=== PATIENT | male | born 1945 | race Caucasian/White ===

== ENCOUNTER 2022-08-30 15:34 | Inpatient (IN) ==
[2022-08-30] MEDS ORDERED: ACETAMINOPHEN 500 MG TAB PO STA (15:59)
[2022-08-30 16:18] LABS: Basophils # (auto) 0.01 K/uL (0-0.2); Basophils % (auto) 0.2 %; Eosinophils # (auto) 0.04 K/uL (0-0.50); Eosinophils % (auto) 0.6 %; Hematocrit (blood only) 41.2 % (42.0-52.0); Immature Granulocytes # (auto) 0.01 K/uL (0.01-0.20); Immature Granulocytes % (auto) 0.2 %; Lymphocytes # (auto) 0.52 K/uL (1.2-3.4); Lymphocytes % (auto) 8.4 %; Mean Corpuscular Hemoglobin 31.5 pg (25.0-34.0); Mean Corpuscular Volume 92.6 fL (80.0-100.0); Mean Platelet Volume 9.7 fL (9.4-12.4); Monocytes % (auto) 4.8 %; Neutrophils # (auto) 5.34 K/uL (1.40-6.50); Neutrophils % (auto) 85.8 %; Platelet Count 249 K/uL (130-400); RDW Coefficient of Variation 16.3 % (11.5-14.5); Red Blood Count 4.45 M/uL (4.70-6.10); White Blood Count 6.22 K/ul (4.8-10.8)
--- NOTE | 2022-08-30 16:18 | Emergency Department Note ---
Impression & Plan Pneumonia, Fever, Hypoxia, Hypomagnesemia ED Provider Note NAME: RAFY CHICAS AGE: 76 SEX: M : 1945 ARRIVES VIA: Ambulance INFORMANT: Patient, EMS ED PROVIDER(S): Christopher Garcia DO CHIEF COMPLAINT: Shortness of breath HPI: The patient is a 76-year-old male who lives in a personal custodial who presented to the emergency department for an evaluation of difficulty breathing. The patient was noted to have a fever. He is also had a nonproductive cough. He started having worsening symptoms today and was sent to the emergency depa rtment from his personal custodial for further evaluation. He denies having any abdominal pain. He denies having any lower extremity swelling. It is unclear if the patient received Tylenol prior to coming to the emergency department. The patient states he has been compliant with his outpatient medications. ROS: See above HPI for pertinent positives & negatives. A total of 10 systems reviewed and were otherwise negative. PAST MEDICAL HISTORY: See Below PAST SURGICAL HISTORY: See Below FAMILY HISTORY: See Below SOCIAL HISTORY: See Below HOME MEDICATIONS: See Below ALLERGIES: See Below VITALS: See Below PHYSICAL EXAMINATION: GENERAL: The patient is awake and alert. He is somewhat anxious appearing. EYES: The conjunctivae are clear. The pupils are round and reactive. EARS, NOSE, MOUTH AND THROAT: The nose is without any evidence of any deformity. NECK: The neck is nontender and supple. RESPIRATORY: Diminished breath sounds were noted throughout. There were faint rales in both bases. There is mild tachypnea. CARDIOVASCULAR: Tachycardic and regular heart sounds were noted to auscultation. There is no definite murmur. GASTROINTESTINAL: The abdomen is soft. Abdomen is nontender. MUSCULOSKELETAL/EXTREMITIES: There is no evidence of gross deformity full range of motion is noted in the hips and shoulders. SKIN: Skin was warm and dry. There is no significant pedal edema. NEUROLOGIC: Patient is awake alert and oriented x 3. MEDICAL DECISION MAKING: The patient is a 76-year-old male who presented to the emergency department by ambulance for an evaluation of difficulty breathing. The patient was found to have fever and hypoxia. He had abnormal lung sounds. Chest x-ray does appear to be consistent with pneumonia. He was treated with supplemental oxygen as well as a small fluid bolus in the emergency department. The patient was reevaluated multiple times. He was given IV antibiotics. I discussed the patient's laboratory and radiographic studies with him. I also discussed this case with the on-call [facility] hospitalist. They have agreed to evaluate the patient in the emergency department for further management and disposition. Triage Nursing notes reviewed. Prior medical records reviewed Vital Signs: reviewed and remarkable for hypoxia and fever. Differential diagnosis: Viral syndrome, otitis, pharyngitis, pneumonia, influenza, meningitis, urinary tract infection, sepsis, bacteremia, as well as other pathologies. ER treatment provided: See below Diagnostics interpreted by me: ECG: EKG was obtained in the emergency department. My interpretation is sinus tachycardia at 114 bpm. There was no ectopy. Incomplete nonspecific intraventricular conduction delay was noted. This was compared to a tracing from August 20, 2014. There is no significant change other than increase in the rate. Cardiac Monitoring: An order was placed for continuous cardiac monitoring. The monitor shows a rate of 81 bpm with sinus rhythm. Laboratory studies: As stated above and show below. Imaging studies: See below. Radiographic imaging was reviewed by myself Consultation(s): I discussed this case with Jordan who is on for the [facility] hospitalist group. Past Med/Surg History Medical History Anxiety and depression Atrial fibrillation episode occurred in 03/2022, taken to [facility], admitted to ICU for 1-2 weeks (was not intubated, but wasn't "awake either"), then to cardiac unit, then to rehab at [facility]; f/u dr. guerra in [place]>will be starting to see a business partner at [facility] 2nd week of 08/2022 GERD (gastroesophageal reflux disease) Hx of staphylococcal infection 03/2022, w/"bacterial infection" at the same, in the rt. knee, occurrred d uring atrial fibrillation episode. "when he woke up, he couldn't walk." Hypertension Lumbar stenosis Myocardial Infarction "a silent one, about 3 years ago" Rheumatoid arthritis Sleep apnea no device Surgical History History of bowel resection for diverticulitis; w/colostomy placement for 3-4 months History of cardiac cath ~3 years ago, SOB and "felt like throat was constricting", had "silent heart attack", x2 stents, done in [place] History of colostomy reversal History of esophagogastroduodenoscopy (EGD) History of heart artery stent ~3 years ago, x2 stents, done in [place]; f/u dr guerra, [place]>will be seeing new cardio at [place] 2nd week of August 2022. Hx of Achilles tendon repair rt. Hx of bilateral cataract extraction Hx of colonoscopy Last Colonoscopy 08/14/22, repeat 3 years in 2025 Hx of hernia repair near former colostomy site Hx of knee surgery rt. patellar tendon repair Hx of rotator cuff surgery bilateral Hx of total hip arthroplasty rt. Hx of total knee replacement lt. Family History Grandmother (Maternal) Diabetes Daughter Diabetes Father Suicide Denies family history of Ovarian cancer Prostate cancer Myocardial infarction Breast cancer Lung cancer Colorectal cancer Stroke Social History Smoking Status: Never smoker Second Hand Exposure: No; Hx Alcohol Use: No Hx Substance Use: No Preferred Language: Kinyarwanda Communication Ability: Effective Visual Impairment: Limited Hearing Ability: Normal Sexual Assault Nurse Required: No Beliefs That Will Affect Care: None marital status: Single Current Living Situation: Intermediate current occupational status: retired How many Children do You have: 2 Feels Safe at Home: Yes Safety Concerns: Feels Safe At This Time Childhood Exposure to Second-Hand Smoke: Yes caffeine: Yes Dental Care, Regularly: Yes Physical Activity Frequency: Does not Exercise Seatbelt Use: always Sunscreen Use: Yes Assistive Devices: Glasses and Wheelchair Allergies Allergies Allergy/AdvReac Type Severity Reaction Status Date / Time No Known Allergies Allergy Verified 08/20/22 11:18 Home Meds Home Medications Medication Instructions Recorded Confirmed sennosides 8.6 mg capsule (senna) 8.6 mg PO HS 06/19/22 08/30/22 B-complex with vitamin C 1 cap PO QAM 08/07/22 08/30/22 acetaminophen 650 mg 1,300 mg PO BID 08/07/22 08/30/22 tablet,extended release (Tylenol 8 Hour) amiodarone 200 mg tablet 200 mg PO QAM 08/07/22 08/30/22 ascorbic acid (vitamin C) 500 mg 1,000 mg PO QAM 08/07/22 08/30/22 capsule aspirin 81 mg tablet,delayed 81 mg PO QAM 08/07/22 08/30/22 release (Adult Low Dose Aspirin) cholecalciferol (vitamin D3) 25 25 mcg PO QAM 08/07/22 08/30/22 mcg (1,000 unit) capsule coenzyme Q10 100 mg capsule 10 mg PO QAM 08/07/22 08/30/22 duloxetine 30 mg capsule,delayed 60 mg PO QAM 08/07/22 08/30/22 release esomeprazole magnesium 40 mg 40 mg PO HS 08/07/22 08/30/22 capsule,delayed release (Nexium) isosorbide mononitrate 60 mg 60 mg PO QAM 08/07/22 08/30/22 tablet,extended release 24 hr lactobacillus combination no.9 4 6,000 mmu cells PO QAM 08/07/22 08/30/22 billion cell capsule (Adult 50 Plus Probiotic) lisinopril 10 mg tablet 10 mg PO QAM 08/07/22 08/30/22 melatonin 5 mg capsule 5 mg PO HS 08/07/22 08/30/22 khenbjis-pbzegpq-mqtm-lutein tablet 1 tab PO QAM 08/07/22 08/30/22 omega 9-roa-xoe-fish oil 1,000 mg 1 cap PO QAM 08/07/22 08/30/22 (120 mg-180 mg) capsule (Fish Oil) oxycodone 5 mg tablet 5 mg PO QID PRN pain 08/07/22 08/30/22 pravastatin 40 mg tablet 40 mg PO HS 08/07/22 08/30/22 upadacitinib 15 mg tablet,extended 15 mg PO HS 08/07/22 08/30/22 release 24 hr (Rinvoq) apixaban 2.5 mg tablet (Eliquis) 5 mg PO BID 08/30/22 08/30/22 Previous Rx's Medication Instructions Recorded nitroglycerin 0.4 mg sublingual 0.4 mg sublingual Q5M PRN chest 07/23/22 tablet pain #30 tabs ranolazine 500 mg tablet,extended 500 mg PO BID #60 tabs 07/23/22 release,12 hr travoprost 0.004 % eye drops 1 drp ophthalmic (eye) QPM #2.5 mL 07/23/22 (Travatan Z) gabapentin 100 mg capsule 100 mg PO TID 90 days #270 caps 08/11/22 Results & Data (ED) Vital Signs Vital Signs - 24 hr 08/30/22 15:39 08/30/22 15:39 08/30/22 15:51 Temperature 39.4 C H Temperature Source Oral Pulse Rate 119 H Pulse Rate from SpO2 Sensor Respiratory Rate 22 Respiratory Effort / Characteristics Non-Labored Spontaneous Respiratory Depth Normal Respiratory Pattern Regular Blood Pressure 195/118 H Blood Pressure Mean 143 Pulse Oximetry 88 L 94 Oxygen Delivery Method Room Air Room Air Nasal Cannula Nasal Cannula Oxygen Flow Rate 0 4 4 Sepsis Recent Fever Within 48 Hours Yes Sepsis New/Unexplained Change in Mental Status No Sepsis Action Taken by Nursing Physician Notified 08/30/22 15:58 08/30/22 17:40 08/30/22 15:45 Temperature 38.6 C H Temperature Source Oral Pulse Rate 107 H Pulse Rate from SpO2 Sensor 111 H Respiratory Rate Respiratory Effort / Characteristics Respiratory Depth Respiratory Pattern Blood Pressure Blood Pressure Mean Pulse Oximetry 89 L Oxygen Delivery Method Oxygen Flow Rate Sepsis Recent Fever Within 48 Hours Sepsis New/Unexplained Change in Mental Status Sepsis Action Taken by Nursing 08/30/22 15:50 08/30/22 16:00 08/30/22 16:10 Temperature Temperature Source Pulse Rate 103 H 105 H Pulse Rate from SpO2 Sensor 107 H 99 H 105 H Respiratory Rate 21 27 H Respiratory Effort / Characteristics Respiratory Depth Respiratory Pattern Blood Pressure Blood Pressure Mean Pulse Oximetry 90 91 94 Oxygen Delivery Method Oxygen Flow Rate Sepsis Recent Fever Within 48 Hours Sepsis New/Unexplained Change in Mental Status Sepsis Action Taken by Nursing 08/30/22 16:20 08/30/22 16:30 08/30/22 16:40 Temperature Temperature Source Pulse Rate 105 H 108 H 105 H Pulse Rate from SpO2 Sensor 104 H 110 H Respiratory Rate 25 H 26 H 30 H Respiratory Effort / Characteristics Respiratory Depth Respiratory Pattern Blood Pressure Blood Pressure Mean Pulse Oximetry 93 93 Oxygen Delivery Method Oxygen Flow Rate Sepsis Recent Fever Within 48 Hours Sepsis New/Unexplained Change in Mental Status Sepsis Action Taken by Nursing 08/30/22 16:43 08/30/22 16:43 08/30/22 16:50 Temperature Temperature Source Pulse Rate 104 H 98 H Pulse Rate from SpO2 Sensor 98 H Respiratory Rate 29 H 26 H Respiratory Effort / Characteristics Respiratory Depth Respiratory Pattern Blood Pressure 164/98 H Blood Pressure Mean 120 Pulse Oximetry 94 Oxygen Delivery Method Oxygen Flow Rate Sepsis Recent Fever Within 48 Hours Sepsis New/Unexplained Change in Mental Status Sepsis Action Taken by Nursing 08/30/22 17:00 08/30/22 17:01 08/30/22 17:01 Temperature Temperature Source Pulse Rate 97 H 98 H Pulse Rate from SpO2 Sensor 96 H 99 H Respiratory Rate 29 H 24 Respiratory Effort / Characteristics Respiratory Depth Respiratory Pattern Blood Pressure 182/139 H Blood Pressure Mean 153 Pulse Oximetry 96 92 Oxygen Delivery Method Oxygen Flow Rate Sepsis Recent Fever Within 48 Hours Sepsis New/Unexplained Change in Mental Status Sepsis Action Taken by Nursing 08/30/22 17:10 08/30/22 17:20 08/30/22 17:30 Temperature Temperature Source Pulse Rate 93 H 90 Pulse Rate from SpO2 Sensor 93 H Respiratory Rate 24 25 H Respiratory Effort / Characteristics Respiratory Depth Respiratory Pattern Blood Pressure 120/68 Blood Pressure Mean 85 Pulse Oximetry 95 Oxygen Delivery Method Oxygen Flow Rate Sepsis Recent Fever Within 48 Hours Sepsis New/Unexplained Change in Mental Status Sepsis Action Taken by Nursing 08/30/22 17:30 08/30/22 17:40 08/30/22 17:50 Temperature Temperature Source Pulse Rate 87 86 84 Pulse Rate from SpO2 Sensor 85 84 Respiratory Rate 23 26 H 23 Respiratory Effort / Characteristics Respiratory Depth Respiratory Pattern Blood Pressure Blood Pressure Mean Pulse Oximetry 96 95 Oxygen Delivery Method Oxygen Flow Rate Sepsis Recent Fever Within 48 Hours Sepsis New/Unexplained Change in Mental Status Sepsis Action Taken by Intermediate Medications Current Medication List: was personally reviewed by me Laboratory Data Attestation: I reviewed the patient's lab results. 08/30/22 15:54 08/30/22 15:54 Lab Results 08/30/22 08/30/22 08/30/22 Range/Units 15:54 15:54 15:54 WBC 6.22 (4.8-10.8) K/ul RBC 4.45 L (4.70-6.10) M/uL Hgb 14.0 (14.0-18.0) g/dl Hct 41.2 L (42.0-52.0) % MCV 92.6 (80.0-100.0) fL MCH 31.5 (25.0-34.0) pg MCHC 34.0 (32.0-36.0) g/dL RDW Std Deviation 55.0 H (36.4-46.3) fL RDW Coeff of Sammie 16.3 H (11.5-14.5) % Plt Count 249 (130-400) K/uL MPV 9.7 (9.4-12.4) fL Immature Gran % (Auto) 0.2 % Neut % (Auto) 85.8 % Lymph % (Auto) 8.4 % [place] % (Auto) 4.8 % Eos % (Auto) 0.6 % Baso % (Auto) 0.2 % Neut # (Auto) 5.34 (1.40-6.50) K/uL Lymph # (Auto) 0.52 L (1.2-3.4) K/uL [place] # (Auto) 0.30 (0.11-0.59) K/uL Eos # (Auto) 0.04 (0-0.50) K/uL Baso # (Auto) 0.01 (0-0.2) K/uL Immature Gran # (Auto) 0.01 (0.01-0.20) K/uL PT (9.0-12.0) Seconds INR (0.9-1.1) APTT (21.0-31.0) Seconds PTT Ratio VBG pH (7.36-7.41) VBG pCO2 (38-50) mmHg VBG pO2 mmHg VBG HCO3 mmol/L VBG O2 Saturation % VBG Base Excess mEq/L Sodium 137 (136-145) mmol/L Potassium 4.1 (3.5-5.1) mmol/L Chloride 104 (98-107) mmol/L Carbon Dioxide 23 (21-32) mmol/L Anion Gap 10 (3-11) BUN 20 (6-23) mg/dl Creatinine 1.06 (0.6-1.4) mg/dl Est Cr Clr Drug Dosing 61.2 ml/min Est GFR ( Amer) 77.5 ml/min Est GFR (Non-Af Amer) 66.9 ml/min BUN/Creatinine Ratio 18.9 (10-20) Glucose 121 H (70-99(Fasting)) mg/dl Lactate 2.9 H* (0.4-2.0) mmol/L Calcium 9.2 (8.6-10.3) mg/dl Magnesium 1.4 L (1.7-2.4) mg/dl Total Bilirubin 0.6 (0.2-1.0) mg/dl Direct Bilirubin 0.1 (0-0.2) mg/dl AST 35 (13-39) U/L ALT 31 (7-52) U/L Alkaline Phosphatase 65 (34-104) U/L Troponin I High Sens 31.0 H (0-20) pg/ml Total Protein 7.1 (6.0-8.3) gm/dl Albumin 4.3 (3.4-5.0) gm/dl Procalcitonin (0-0.5) ng/ml Urine Color Urine Appearance (Clear) Urine pH (4.5-7.5) Ur Specific [place] (1.000-1.030) Urine Protein (Negative) Urine Glucose (UA) (Negative) Urine Ketones (Negative) Urine Blood (Negative) Urine Nitrite (Negative) Urine Bilirubin (Negative) Urine Urobilinogen (Negative) Ur Leukocyte Esterase (Negative) Urine WBC (Auto) (0-5) /hpf Urine RBC (Auto) (0-4) /hpf U Hyaline Cast (Auto) (0-5) /lpf U Epithel Cells (Auto) (0-5) /lpf Urine Bacteria (Auto) (Negative) SARS-CoV-2 (PCR) (Negative) Influenza Type A (PCR) (Neg) Influenza Type B (PCR) (Neg) RSV (RT-PCR) (Neg) 08/30/22 08/30/22 08/30/22 Range/Units 15:54 15:54 16:01 WBC (4.8-10.8) K/ul RBC (4.70-6.10) M/uL Hgb (14.0-18.0) g/dl Hct (42.0-52.0) % MCV (80.0-100.0) fL MCH (25.0-34.0) pg MCHC (32.0-36.0) g/dL RDW Std Deviation (36.4-46.3) fL RDW Coeff of Sammie (11.5-14.5) % Plt Count (130-400) K/uL MPV (9.4-12.4) fL Immature Gran % (Auto) % Neut % (Auto) % Lymph % (Auto) % [place] % (Auto) % Eos % (Auto) % Baso % (Auto) % Neut # (Auto) (1.40-6.50) K/uL Lymph # (Auto) (1.2-3.4) K/uL [place] # (Auto) (0.11-0.59) K/uL Eos # (Auto) (0-0.50) K/uL Baso # (Auto) (0-0.2) K/uL Immature Gran # (Auto) (0.01-0.20) K/uL PT 11.2 (9.0-12.0) Seconds INR 1.1 (0.9-1.1) APTT 25.2 (21.0-31.0) Seconds PTT Ratio 0.9 VBG pH (7.36-7.41) VBG pCO2 (38-50) mmHg VBG pO2 mmHg VBG HCO3 mmol/L VBG O2 Saturation % VBG Base Excess mEq/L Sodium (136-145) mmol/L Potassium (3.5-5.1) mmol/L Chloride (98-107) mmol/L Carbon Dioxide (21-32) mmol/L Anion Gap (3-11) BUN (6-23) mg/dl Creatinine (0.6-1.4) mg/dl Est Cr Clr Drug Dosing ml/min Est GFR ( Amer) ml/min Est GFR (Non-Af Amer) ml/min BUN/Creatinine Ratio (10-20) Glucose (70-99(Fasting)) mg/dl Lactate (0.4-2.0) mmol/L Calcium (8.6-10.3) mg/dl Magnesium (1.7-2.4) mg/dl Total Bilirubin (0.2-1.0) mg/dl Direct Bilirubin (0-0.2) mg/dl AST (13-39) U/L ALT (7-52) U/L Alkaline Phosphatase (34-104) U/L Troponin I High Sens (0-20) pg/ml Total Protein (6.0-8.3) gm/dl Albumin (3.4-5.0) gm/dl Procalcitonin 0.06 (0-0.5) ng/ml Urine Color Urine Appearance (Clear) Urine pH (4.5-7.5) Ur Specific [place] (1.000-1.030) Urine Protein (Negative) Urine Glucose (UA) (Negative) Urine Ketones (Negative) Urine Blood (Negative) Urine Nitrite (Negative) Urine Bilirubin (Negative) Urine Urobilinogen (Negative) Ur Leukocyte Esterase (Negative) Urine WBC (Auto) (0-5) /hpf Urine RBC (Auto) (0-4) /hpf U Hyaline Cast (Auto) (0-5) /lpf U Epithel Cells (Auto) (0-5) /lpf Urine Bacteria (Auto) (Negative) SARS-CoV-2 (PCR) NEGATIVE (Negative) Influenza Type A (PCR) Negative (Neg) Influenza Type B (PCR) Negative (Neg) RSV (RT-PCR) Negative (Neg) 08/30/22 08/30/22 08/30/22 Range/Units 16:39 17:32 17:35 WBC (4.8-10.8) K/ul RBC (4.70-6.10) M/uL Hgb (14.0-18.0) g/dl Hct (42.0-52.0) % MCV (80.0-100.0) fL MCH (25.0-34.0) pg MCHC (32.0-36.0) g/dL RDW Std Deviation (36.4-46.3) fL RDW Coeff of Sammie (11.5-14.5) % Plt Count (130-400) K/uL MPV (9.4-12.4) fL Immature Gran % (Auto) % Neut % (Auto) % Lymph % (Auto) % [place] % (Auto) % Eos % (Auto) % Baso % (Auto) % Neut # (Auto) (1.40-6.50) K/uL Lymph # (Auto) (1.2-3.4) K/uL [place] # (Auto) (0.11-0.59) K/uL Eos # (Auto) (0-0.50) K/uL Baso # (Auto) (0-0.2) K/uL Immature Gran # (Auto) (0.01-0.20) K/uL PT (9.0-12.0) Seconds INR (0.9-1.1) APTT (21.0-31.0) Seconds PTT Ratio VBG pH 7.38 (7.36-7.41) VBG pCO2 38 (38-50) mmHg VBG pO2 36 mmHg VBG HCO3 23 mmol/L VBG O2 Saturation 61.3 % VBG Base Excess -2.3 mEq/L Sodium (136-145) mmol/L Potassium (3.5-5.1) mmol/L Chloride (98-107) mmol/L Carbon Dioxide (21-32) mmol/L Anion Gap (3-11) BUN (6-23) mg/dl Creatinine (0.6-1.4) mg/dl Est Cr Clr Drug Dosing ml/min Est GFR ( Amer) ml/min Est GFR (Non-Af Amer) ml/min BUN/Creatinine Ratio (10-20) Glucose (70-99(Fasting)) mg/dl Lactate 1.3 (0.4-2.0) mmol/L Calcium (8.6-10.3) mg/dl Magnesium (1.7-2.4) mg/dl Total Bilirubin (0.2-1.0) mg/dl Direct Bilirubin (0-0.2) mg/dl AST (13-39) U/L ALT (7-52) U/L Alkaline Phosphatase (34-104) U/L Troponin I High Sens (0-20) pg/ml Total Protein (6.0-8.3) gm/dl Albumin (3.4-5.0) gm/dl Procalcitonin (0-0.5) ng/ml Urine Color Dark Yellow Urine Appearance Clear (Clear) Urine pH 5.0 (4.5-7.5) Ur Specific [place] 1.018 (1.000-1.030) Urine Protein Trace H (Negative) Urine Glucose (UA) Negative (Negative) Urine Ketones Negative (Negative) Urine Blood Negative (Negative) Urine Nitrite Negative (Negative) Urine Bilirubin Negative (Negative) Urine Urobilinogen Negative (Negative) Ur Leukocyte Esterase Negative (Negative) Urine WBC (Auto) 1-5 (0-5) /hpf Urine RBC (Auto) 0-4 (0-4) /hpf U Hyaline Cast (Auto) 0 (0-5) /lpf U Epithel Cells (Auto) 5-10 H (0-5) /lpf Urine Bacteria (Auto) Negative (Negative) SARS-CoV-2 (PCR) (Negative) Influenza Type A (PCR) (Neg) Influenza Type B (PCR) (Neg) RSV (RT-PCR) (Neg) Administered Medications Albuterol (Albut/Ipratrop 3mg/0.5mg Neb 3 Ml Vial) 3 ml NEB QIDR [facility]; Protocol Stop: 09/29/22 18:59 Last Admin: 08/30/22 18:25 Dose: 3 ml Documented By: KATHERIN Ampicillin Sodium/Sulbactam Sodium 3,000 mg/ Sodium Chloride 108 mls @ 200 mls/hr IV Q6H [facility]; Protocol Stop: 09/06/22 18:59 Last Admin: 08/30/22 21:21 Dose: 200 mls/hr Documented By: YAMILA Discontinued Medications Acetaminophen (Acetaminophen 500 Mg Tab) 1,000 mg PO NOW STA Stop: 08/30/22 16:00 Last Admin: 08/30/22 16:22 Dose: 1,000 mg Documented By: KATHERIN Magnesium Sulfate/Dextrose (Magnesium Sulfate / D5w) 1 gm in 100 mls @ 100 mls/hr IV NOW STA Stop: 08/30/22 17:37 Last Infusion: 08/30/22 17:40 Dose: 0 mls/hr Documented By: Admin: 08/30/22 16:41 Dose: 100 mls/hr Documented By: KATHERIN Piperacillin Sod/Tazobactam Sod (Zosyn) 4.5 gm in 120 mls @ 240 mls/hr IV NOW ONE Stop: 08/30/22 17:14 Last Infusion: 08/30/22 17:32 Dose: 0 mls/hr Documented By: Admin: 08/30/22 17:02 Dose: 240 mls/hr Documented By: KATHERIN Lactated Ringer's (Lr) 1,000 mls @ 999 mls/hr IV .Q1H1M ONE Stop: 08/30/22 19:43 Last Infusion: 08/30/22 20:32 Dose: 0 mls/hr Documented By: Admin: 08/30/22 18:54 Dose: 999 mls/hr Documented By: KATHERIN Azithromycin 500 mg/ Dextrose 255 mls @ 127.5 mls/hr IV NOW STA Stop: 08/30/22 20:44 Last Admin: 08/30/22 21:21 Dose: 127.5 mls/hr Documented By: YAMILA Lisinopril (Lisinopril 10 Mg Tab) 10 mg PO NOW ONE Stop: 08/30/22 19:39 Last Admin: 08/30/22 21:21 Dose: 10 mg Documented By: YAMILA Imaging Data Attestation: I personally reviewed and interpreted this imaging study as follows: My Impression: 1 view chest x-ray was obtained in the emergency department. My interpretation is right lower lobe consolidation, final report below. Radiologist's Impression: Chest X-Ray 08/30/22 15:51 SINGLE VIEW CHEST CLINICAL HISTORY: Sepsis. FINDINGS: An AP, portable, upright chest radiograph is obtained. No prior studies are available for comparison at the time of dictation. The examination is degraded by portable technique and patient rotation. The heart is mildly enlarged. The pulmonary vasculature is noncongested. There is right basilar consolidation. The left lung appears clear. No large pleural effusion or pneumothorax is seen. The skeletal structures are osteopenic. The bony thorax is grossly intact. Advanced arthritic change is seen in the left shoulder. IMPRESSION: Right basilar consolidation is typical for pneumonia/aspiration pneumonitis. Clinical correlation will be required and radiographic follow-up to resolution is recommended. ACT 112: Negative or not required by law. Electronically signed by: Maxime Faust M.D. 08/30/2022 4:39 PM Discharge Plan Visit Data Chief Complaint: Shortness of Breath/Dyspnea Stated Complaint: SOB, FEVER ED Provider: Christopher Garcia Discharge Problem: Pneumonia, Fever, Hypoxia, Hypomagnesemia Patient Disposition: Being Evaluated by Hospitalist Discharge Instructions Interventions: ED Discharge Assessment Last Done: 08/30/22 19:59
[2022-08-30 16:27] LABS: Albumin Level 4.3 gm/dl (3.4-5.0); BUN Creatinine Ratio 18.9 (10-20); Bilirubin Direct 0.1 mg/dl (0-0.2); Bilirubin,Total 0.6 mg/dl (0.2-1.0); Calcium 9.2 mg/dl (8.6-10.3); Creatinine Clr Calc Pharmacy 61.2 ml/min; Est GFR (African American) 77.5 ml/min; Est GFR (Non-African American) 66.9 ml/min; Magnesium 1.4 mg/dl (1.7-2.4); Potassium 4.1 mmol/L (3.5-5.1); Total Protein 7.1 gm/dl (6.0-8.3)
[2022-08-30] MEDS ORDERED: MAGNESIUM SULFATE / D5W 1 GM/100 ML BAG IV STA (16:38)
[2022-08-30 16:39] LABS: INR 1.1 (0.9-1.1); Partial Thromboplastin Ratio 0.9; Partial Thromboplastin Time 25.2 Seconds (21.0-31.0); Prothrombin Time 11.2 Seconds (9.0-12.0)
--- NOTE | 2022-08-30 16:40 | XRay Report ---
SINGLE VIEW CHEST CLINICAL HISTORY: Sepsis. FINDINGS: An AP, portable, upright chest radiograph is obtained. No prior studies are available for c omparison at the time of dictation. The examination is degraded by portable technique and patient rot ation. The heart is mildly enlarged. The pulmonary vasculature is noncongested. There is right basil ar consolidation. The left lung appears clear. No large pleural effusion or pneumothorax is seen. The skeletal structures are osteopenic. The bony thorax is grossly intact. Advanced arthritic change is seen in the left shoulder. IMPRESSION: Right basilar consolidation is typical for pneumonia/aspiration pneumonitis. Clinical cor relation will be required and radiographic follow-up to resolution is recommended. ACT 112: Negative or not required by law. Electronically signed by: Maxime Faust M.D. 08/30/2022 4:39 PM
[2022-08-30] MEDS ORDERED: PIPERACILLIN/TAZOBACTAM 4.5 GM/120 ML BAG IV ONE (16:45)
[2022-08-30 16:47] LABS: Base Excess VBG -2.3 mEq/L; HCO3 VBG 23 mmol/L; Oxygen Saturation VBG 61.3 %; PCO2 VBG 38 mmHg (38-50); PO2 VBG 36 mmHg; pH VBG 7.38 (7.36-7.41)
[2022-08-30 17:02] LABS: Influenza A virus by PCR Negative (Neg); Influenza B virus by PCR Negative (Neg); RSV by PCR Negative (Neg); SARS CoV2 RNA(COVID-19) Ceph NEGATIVE (Negative)
[2022-08-30 18:01] LABS: Appearance Urine Clear (Clear); Bacteria Urine Automated Negative (Negative); Bilirubin Urine Negative (Negative); Blood Urine Negative (Negative); Cast Urine Automated 0 /lpf (0-5); Color Urine Dark Yellow; Glucose Urine UA Negative (Negative); Ketones Urine Negative (Negative); Leukocyte Esterase Urine Negative (Negative); Nitrite Urine Negative (Negative); Protein Urine Trace (Negative); RBC Urine Automated 0-4 /hpf (0-4); Specific Gravity Urine 1.018 (1.000-1.030); Urobilinogen Urine Negative (Negative)
--- NOTE | 2022-08-30 18:10 | History & Physical Report ---
Date of Service August 30, 2022 Assessment & Plan (1) Respiratory failure with hypoxia: Plan: -Admit to med/tele -The patient is currently afebrile, now hemodynamically stable, and currently stable on 3L NC -The patient has been having 4 days of progressive cough with yellow sputum, fevers, and was found to be hypoxic on RA -The patient's chest xray was read as possible RLL pneumonia, he was also found to he parainfluenza positive. While he is without a leukocytosis and his procal is negative, he is currently on Rinvoq for RA, this puts him at a significantly increased risk of serious infections -S/P one dose of Zosyn in the ED, will continue with Unasyn and Azithromycin for now -Continue incentive spirometry, flutter therapy, QID DuoNebs, scheduled robitussin, and prn O2 to keep SpO2 at or greater than 95% -Blood cultures obtained in the ED, monitor and tailor abx as needed -Will hold Rinvoq for now until his infection has resolved -Will start Sub-Q lovenox for DVT PPX, hold SCD's until his RLE venous doppler is obtained -AM CBC, BMP, Mag (2) Hypomagnesemia: Plan: -Noted to be 1.4 today, likely due to poor oral intake with his acute illness -S/P 1gm IV mag in the ED, will give another 1gm on admission, monitor am mag level (3) Elevated troponin: Plan: -Initial high sen trop elevated at 31 -The patient is asymptomatic and without acute ECG changes -Likely due to demand from his hypoxia on arrival -Will repeat another high sen trop now and continue to monitor on tele (4) Right leg swelling: Plan: -RLE with a minimal amount of swelling compared to the left, the patient states that the RLE has been more swollen since his hospitalization in [place] -Patient confirms he has never had a venous doppler of the RLE for the Swelling -The patient is on Elqiuis, but will get a venous doppler of the RLE to rule out DVT (5) Benign essential hypertension: Plan: -Was initially found to be hypertensive at 195/118, resolved without intervention, currently hemodynamically stable -Patient confirmed he did not have his medications today -Will give him daily dose of lisinopril now, continue to monitor on tele (6) Heart failure with preserved ejection fraction: Plan: -LVEF WNL as of his last echo in Jul of this year -Currently euvolemic on exam -Continue Imdur and monitor volume status (7) Coronary artery disease: Plan: -Continue aspirin and statin (8) Atrial fibrillation: Plan: -Stable -Continue Amiodarone and Eliquis -Per the last cardiology note by Dr. Cardenas on 08/20, the patient's dose of Eliquis had previously been reduced from 5 mg BID to 2.5 mg BID for a possible GI which has resolved. He recommended increasing his dose back to 5 mg PO BID, will increase his dose back to 5 mg PO BID, monitor for signs of bleeding (9) Rheumatoid arthritis: Plan: -Typically on Rivoq, hold for acute infection (10) Anxiety and depression: Plan: -Continue Duloxetine (11) GERD (gastroesophageal reflux disease): Plan: -Normally takes 40 mg Nexium HS -Will switch to 40 mg PO Pantoprazole daily while admitted (12) Fungal infection of foot: Plan: -Patient noted to have erythema and white crusting on and between the toes of the right foot, consistent with a fungal infection -Will start BID topical Clotrimazole for now, continue to monitor for improvement Plan The patient was discussed with Dr. Amor at the time of the admission History of Present Illness Chief Complaint: Hypoxia Primary Care Provider: Danny Soliman DO [place] is a 76 year old male with a PMH significant for afib on Eliquis, HFpEF (LVEF of 55-60% as of 07/17/22), CAD S/P TRUDY X 2 in 2015, RA on Rinvoq, lumbar stenosis, Anxiety/depression, and GERD who presented to the [facility] ED from [facility] due to SOB and hypoxia. In the ED the patient was found to be febrile at 39.4, hypertensive at 195/118, and hypoxic at 88% on RA. Labs were remarkable for a WBC of 6.22, stable Hgb at 14, stable platelets of 249, lymphocyte count of 0.52, VBG WNL, stable cr at 1.06, initial lactate of 2.9, mag of 1.4 otherwise stable electrolytes, initial high sen trop of 31, procal of 0.06, UA without signs of acute infection, Covid 19/Influenza/RSV negative. Chest xray was read as "Right basilar consolidation is typical for pneumonia/aspiration pneumonitis. Clinical correlation will be required and radiographic follow-up to resolution is recommended.". Prior to admission the patient was given a DuoNeb treatment, 1gm PO tylenol, 1hm IV magnesium, and a dose of Zosyn. His two hour repeat lactate was found to be 1.3. At the time of the exam the patient was lying in bed in no acute distress, his systolic BP was down to 115 mmhg without intervention. He states that he underwent a Dobutamine stress echo on 08/[address] Cardenas as part of a pre-surgical cardiac clearance. He states that he had no complications during the stress test and states that he has not yet been updated with the results. He states the stress test was done with the [facility]. Over the past 3-4 days the patient states he developed a productive cough with yellow sputum, increased SOB, fever, chills, and generalized weakness. He states he was evaluated by the nursing staff who sound him to be febrile at 101F and hypoxic in the 80's on RA. He denies recent chest pain, nausea, vomiting, abd pain, dysuria, hematuria, melena, diarrhea, bloody BM's, LE swelling, recent wounds/sores, and recent trauma. He currently feels a little improved compared to his arrival. When asked about joint pain/swelling he states that most of his joints are painful due to his RA but he has not had a single joint with significant erythema, swelling, or severe pain. He explains that he is scheduled to have his right knee replaced on 09/09, which is why he was undergoing cardiac clearance. He confirms that he did not have any of his medications today prior to coming to the ED. We discussed code status, the patient states that he would want to be a Full Code and for his Son, Jaiden, to make medical decisions for him if he could not make them himself. Per chart review, the patient was recently seen by [facility] for his RA. Their note mentions that the patient had a recent hospitalization due to concerns for possible septic arthritis. They mention a discharge summary which listed a differential of "possible gram-negative bacteremia" vs "pseudo bacteremia". The Rheum note mentions that the discharge summary listed the patient undergoing an I&D during the admission and being discharged on IV antibiotics. I spoke with the patient regarding this admission. He explains that he was admitted to [facility] in [place] and confirms he was diagnosed with right knee septic arthritis. He states that he completed 4 weeks of Vancomycin and another antibiotic of which he can't remember than name. He states that when he had the septic arthritis his right knee was very swollen, red, and tender. He denies his right knee feeling like that recently. Please refer to Dr. Amor's attestation for any changes to the treatment plan Allergies Allergy/AdvReac Type Severity Reaction Status Date / Time No Known Allergies Allergy Verified 09/08/22 15:16 Home Medications Medication Instructions Recorded Confirmed Type sennosides 8.6 mg capsule (senna) 8.6 mg PO HS 06/19/22 09/08/22 History nitroglycerin 0.4 mg sublingual 0.4 mg sublingual Q5M PRN chest 07/23/22 09/08/22 Rx tablet pain #30 tabs ranolazine 500 mg tablet,extended 500 mg PO BID #60 tabs 07/23/22 09/08/22 Rx release,12 hr travoprost 0.004 % eye drops 1 drp ophthalmic (eye) QPM #2.5 mL 07/23/22 09/08/22 Rx (Travatan Z) B-complex with vitamin C 1 cap PO QAM 08/07/22 09/08/22 History acetaminophen 650 mg 1,300 mg PO BID 08/07/22 09/08/22 History tablet,extended release (Tylenol 8 Hour) amiodarone 200 mg tablet 200 mg PO QAM 08/07/22 09/08/22 History ascorbic acid (vitamin C) 500 mg 1,000 mg PO QAM 08/07/22 09/08/22 History capsule aspirin 81 mg tablet,delayed 81 mg PO QAM 08/07/22 09/08/22 History release (Adult Low Dose Aspirin) cholecalciferol (vitamin D3) 25 25 mcg PO QAM 08/07/22 09/08/22 History mcg (1,000 unit) capsule coenzyme Q10 100 mg capsule 10 mg PO QAM 08/07/22 09/08/22 History duloxetine 30 mg capsule,delayed 60 mg PO QAM 08/07/22 09/08/22 History release esomeprazole magnesium 40 mg 40 mg PO HS 08/07/22 09/08/22 History capsule,delayed release (Nexium) isosorbide mononitrate 60 mg 60 mg PO QAM 08/07/22 09/08/22 History tablet,extended release 24 hr lactobacillus combination no.9 4 6,000 mmu cells PO QAM 08/07/22 09/08/22 History billion cell capsule (Adult 50 Plus Probiotic) lisinopril 10 mg tablet 10 mg PO QAM 08/07/22 09/08/22 History melatonin 5 mg capsule 5 mg PO HS 08/07/22 09/08/22 History aurczfml-buzyqug-gniu-lutein tablet 1 tab PO QAM 08/07/22 09/08/22 History omega 1-paz-zsk-fish oil 1,000 mg 1 cap PO QAM 08/07/22 09/08/22 History (120 mg-180 mg) capsule (Fish Oil) oxycodone 5 mg tablet 5 mg PO QID PRN pain 08/07/22 09/08/22 History pravastatin 40 mg tablet 40 mg PO HS 08/07/22 09/08/22 History gabapentin 100 mg capsule 100 mg PO TID 90 days #270 caps 08/11/22 09/08/22 Rx apixaban 2.5 mg tablet (Eliquis) 5 mg PO BID 08/30/22 09/08/22 History amoxicillin 875 mg-potassium 1 tab PO BIDM 7 days #14 tabs 09/06/22 09/08/22 Rx clavulanate 125 mg tablet benzonatate 100 mg capsule 100 mg PO TID PRN cough #20 caps 09/06/22 09/08/22 Rx hydrocodone-homatropine 5 mg-1.5 5 ml PO Q8H PRN cough #100 mL 09/06/22 09/08/22 Rx mg/5 mL oral syrup (Hydromet) ipratropium 20 mcg-albuterol 100 1 puff inhalation Q6H PRN 09/06/22 09/08/22 Rx mcg/actuation mist for inhalation cough/wheezing #4 grams (Combivent Respimat) metoprolol tartrate 25 mg tablet 12.5 mg PO BID #60 tabs 09/06/22 09/08/22 Rx Past Med/Surg History Medical History Anxiety and depression Atrial fibrillation episode occurred in 03/2022, taken to [facility] in [place], admitted to ICU for 1-2 weeks (was not intubated, but wasn't "awake either"), then to cardiac unit, then to rehab at [facility]; f/u dr. guerra in [place]>will be starting to see a power generation turbine room operator at [facility] 2nd week of 08/2022 GERD (gastroesophageal reflux disease) Hx of staphylococcal infection 03/2022, w/"bacterial infection" at the same, in the rt. knee, occurrred during atrial fibrillation episode. "when he woke up, he couldn't walk." Hypertension Lumbar stenosis Myocardial Infarction "a silent one, about 3 years ago" Rheumatoid arthritis Sleep apnea no device Surgical History History of bowel resection for diverticulitis; w/colostomy placement for 3-4 months History of cardiac cath ~3 years ago, SOB and "felt like throat was constricting", had "silent heart attack", x2 stents, done in [place] History of colostomy reversal History of esophagogastroduodenoscopy (EGD) History of heart artery stent ~3 years ago, x2 stents, done in [place]; f/u dr guerra, [place]>will be seeing new cardio at [place] 2nd week of August 2022. Hx of Achilles tendon repair rt. Hx of bilateral cataract extraction Hx of colonoscopy Last Colonoscopy 08/14/22, repeat 3 years in 2025 Hx of hernia repair near former colostomy site Hx of knee surgery rt. patellar tendon repair Hx of rotator cuff surgery bilateral Hx of total hip arthroplasty rt. Hx of total knee replacement lt. Family History Grandmother (Maternal) Diabetes Daughter Diabetes Father Suicide Denies family history of Ovarian cancer Prostate cancer Myocardial infarction Breast cancer Lung cancer Colorectal cancer Stroke Social History Smoking Status: Never smoker Second Hand Exposure: No; Hx Alcohol Use: No Hx Substance Use: No Preferred Language: Norwegian Communication Ability: Effective Visual Impairment: Limited Hearing Ability: Normal Community Organizer Required: No Beliefs That Will Affect Care: None marital status: Single Current Living Situation: Retirement current occupational status: retired How many Children do You have: 2 Feels Safe at Home: Yes Childhood Exposure to Second-Hand Smoke: Yes caffeine: Yes Dental Care, Regularly: Yes Physical Activity Frequency: Does not Exercise Seatbelt Use: always Sunscreen Use: Yes Assistive Devices: Walker and Wheelchair Review of Systems Review of Systems: Denies current headache, changes in vision, hearing, taste, and smell, chest pain, abdominal pain, nausea, vomiting, diarrhea, hematemesis, melena, dysuria, hematuria, and recent falls. All systems have been reviewed and are otherwise negative. Physical Exam Physical Exam: Physical Exam: General: In no acute distress, stated age, ill appearing but non-toxic appearing HEENT: Normocephalic, atraumatic, no scleral icterus, pupils around round, symmetrical, and reactive to light, moist mucus membranes, trachea midline, no thyromegaly Chest/Pulm: No respiratory distress, frequent productive cough, symmetrical chest expansion, expiratory rhonchi and wheezing throughout Cardiac: RRR, no murmurs noted Abdomen: Negative for ascites and bruising, normoactive bowel sounds, soft, non-tender to palpation throughout Musculoskeletal: Patient without acute trauma, inspection of the BL elbows, wrists, knees, ankles and feet do not reveal unilateral swelling, erythema or tenderness to suggest acute infection Extremities: Radial, dorsalis pedis, and posterior tibial pulses are intact and symmetrical, trace edema noted in the RLE, no edema in the LLE Skin: Patient with erythema and white crusting on and between the toes of the right foot consistent with a fungal infection Neuro: Alert and oriented to person, place, month, year, no focal defects, CN II-XII tested and intact, no tremors noted Psych: No acute distress, calm and cooperative during the exam Results & Data Results & Data Vital Signs (Past 12 Hours) Vital Signs Temp Pulse Resp BP Pulse Ox O2 Del Method O2 Flow Rate 08/30/22 17:40 38.6 C H 08/30/22 15:58 107 H 08/30/22 15:51 94 Nasal Cannula 4 08/30/22 15:39 Room Air, Nasal Cannula 4 08/30/22 15:39 39.4 C H 119 H 22 195/118 H 88 L Room Air 0 Laboratory Results Abnormal lab results 08/30/22 08/30/22 08/30/22 Range/Units 15:54 15:54 15:54 RBC 4.45 L (4.70-6.10) M/uL Hct 41.2 L (42.0-52.0) % RDW Std Deviation 55.0 H (36.4-46.3) fL RDW Coeff of Sammie 16.3 H (11.5-14.5) % Lymph # (Auto) 0.52 L (1.2-3.4) K/uL Glucose 121 H (70-99(Fasting)) mg/dl Lactate 2.9 H* (0.4-2.0) mmol/L Magnesium 1.4 L (1.7-2.4) mg/dl Troponin I High Sens 31.0 H (0-20) pg/ml Urine Protein (Negative) U Epithel Cells (Auto) (0-5) /lpf 08/30/22 Range/Units 17:35 RBC (4.70-6.10) M/uL Hct (42.0-52.0) % RDW Std Deviation (36.4-46.3) fL RDW Coeff of Sammie (11.5-14.5) % Lymph # (Auto) (1.2-3.4) K/uL Glucose (70-99(Fasting)) mg/dl Lactate (0.4-2.0) mmol/L Magnesium (1.7-2.4) mg/dl Troponin I High Sens (0-20) pg/ml Urine Protein Trace H (Negative) U Epithel Cells (Auto) 5-10 H (0-5) /lpf Diagnostic Findings Chest X-Ray 08/30/22 15:51 SINGLE VIEW CHEST CLINICAL HISTORY: Sepsis. FINDINGS: An AP, portable, upright chest radiograph is obtained. No prior studies are available for comparison at the time of dictation. The examination is degraded by portable technique and patient rotation. The heart is mildly enlarged. The pulmonary vasculature is noncongested. There is right basilar consolidation. The left lung appears clear. No large pleural effusion or pneumothorax is seen. The skeletal structures are osteopenic. The bony thorax is grossly intact. Advanced arthritic change is seen in the left shoulder. IMPRESSION: Right basilar consolidation is typical for pneumonia/aspiration pneumonitis. Clinical correlation will be required and radiographic follow-up to resolution is recommended. ACT 112: Negative or not required by law. Electronically signed by: Maxime Faust M.D. 08/30/2022 4:39 PM ECG Additional Comments: Poor data quality, interpretation may be adversely affected Sinus tachycardia Left axis deviation Non-specific intra-ventricular conduction block T wave abnormality, consider lateral ischemia Abnormal ECG When compared with ECG of 20-AUG-2022 11:01, (unconfirmed) Vent. rate has increased BY 58 BPM Questionable change in QRS duration Code Status & VTE Plan Code Status Full code VTE Prophylaxis Plan VTE Prophylaxis will be ordered: Yes Supervising Physician Co-Signing Physician Notes I personally saw and examined the patient. I verified all lubin points and agree with Jordan Mercado PA-C with the following exceptions and/or additions: 76 year old male presents to the ER with 3-4 days with productive cough, shortness of breath, fever, chills and generalized weakness. O/E HS RRR, no murmurs, Chest using accessory muscles, rhonchi b/l, expiratory wheezing, Abdo SNT A/P Acute respiratory failure with hypoxia - Suspect mostly parainfluenza however patient is immunosuppressed therefore will cover for bacterial pneumonia with Unasyn and azithromycin. PG Care Time/CCT Total # of Minutes Spent Total Time Spent with Patient: Total time spent is greater than 50% in coordination of care (as documented) at patient's floor/unit and/or counseling patient: Coding [place] [address] INT INP/OBS CARE 3/75MIN Patient Type Established Medical Decision Making High Complexity Diagnoses Respiratory failure with hypoxia J96.91 Hypomagnesemia E83.42 Elevated troponin R77.8 Right leg swelling M79.89 Benign essential hypertension I10 Heart failure with preserved ejection fraction I50.30 Coronary artery disease I25.10 Atrial fibrillation I48.91 Rheumatoid arthritis M06.9 Anxiety and depression F41.9; F32.A GERD (gastroesophageal reflux disease) K21.9 Fungal infection of foot B35.3
[2022-08-30] MEDS: ALBUT/IPRATROP 3MG/0.5MG NEB 3 ML VIAL NEB SCH (18:25)
[2022-08-30] MEDS ORDERED: LACTATED RINGER'S 1,000 ML IV ONE (18:43)
[2022-08-30] MEDS ORDERED: AZITHROMYCIN 500 MG in DEXTROSE 5% 250 ML IV STA (18:45)
[2022-08-30 19:14] LABS: Adenovirus PCR Not Detected (NotDetected); Bordetella parapertussis PCR Not Detected (NotDetected); Bordetella pertussis PCR Not Detected (NotDetected); Chlamydia pneumoniae PCR Not Detected (NotDetected); Coronavirus 229E PCR Not Detected (NotDetected); Coronavirus CoV-2 (COVID19)PCR Not Detected (NotDetected); Coronavirus HKU1 PCR Not Detected (NotDetected); Coronavirus NL63 PCR Not Detected (NotDetected); Coronavirus OC43PCR Not Detected (NotDetected); Human Metapneumovirus PCR Not Detected (NotDetected); Influenza A PCR Not Detected (NotDetected); Influenza B PCR Not Detected (NotDetected); Mycoplasma pneumoniae PCR Not Detected (NotDetected); Parainfluenza Virus 1 PCR Not Detected (NotDetected); Parainfluenza Virus 2 PCR Not Detected (NotDetected); Parainfluenza Virus 4 PCR Not Detected (NotDetected); Respiratory Syncytial VirusPCR Not Detected (NotDetected); Rhinovirus/Enterovirus PCR Not Detected (NotDetected)
[2022-08-30 19:22] LABS: Parainfluenza Virus 3 PCR DETECTED (NotDetected)
[2022-08-30] MEDS ORDERED: AMIODARONE 200 MG TAB PO ONE (19:38)
[2022-08-30] MEDS ORDERED: PANTOprazole 40 MG TAB PO ONE (20:15)
[2022-08-30] MEDS ORDERED: MAGNESIUM SULFATE / D5W 1 GM/100 ML BAG IV ONE (21:07)
[2022-08-30] MEDS: AMPICILLIN/SULBACTAM SOD 3,000 MG in 0.9 % SODIUM CHLORIDE 100 ML IV SCH (21:21)
[2022-08-30] MEDS: lisinopril 10 MG TAB PO ONE (21:21)
[2022-08-30] MEDS ORDERED: PNEUMOCOCCAL Polysaccharide Vaccine 25mcg/0.5mL vial/Syr IM ONE (22:00)
[2022-08-30] MEDS: GABAPENTIN 100 MG CAP PO SCH (22:13)
[2022-08-30] MEDS: DULoxetine HCL 60 MG CAP PO SCH (22:13)
[2022-08-30] MEDS: RANOLAZINE 500 MG ER TAB PO SCH (22:14)
[2022-08-30] MEDS: guaiFENesin SUGAR FREE 200 MG/10 ML UDC PO SCH (22:14)
[2022-08-30] MEDS: APIXABAN 5 MG TABLET PO SCH (22:14)
[2022-08-30] MEDS: PRAVASTATIN SOD 40 MG TAB PO SCH (22:15)
[2022-08-30] MEDS: TRAVOPROST Z 0.004% OPH SOLN 2.5 ML BTL OP SCH (22:16)
[2022-08-30] MEDS: MELATONIN 3 MG TAB PO SCH (22:17)
[2022-08-30] MEDS: CLOTRIMAZOLE 1% CR 15 GM TUBE EXT SCH (22:17)
[2022-08-30] MEDS: BENZONATATE 100 MG CAPSULE PO PRN (23:38)
[2022-08-31] MEDS: guaiFENesin SUGAR FREE 200 MG/10 ML UDC PO SCH ×4 (02:37→20:22)
[2022-08-31] MEDS: AMPICILLIN/SULBACTAM SOD 3,000 MG in 0.9 % SODIUM CHLORIDE 100 ML IV SCH ×4 (02:37→18:41)
[2022-08-31] MEDS: lisinopril 10 MG TAB PO ONE (03:33)
[2022-08-31] MEDS ORDERED: SODIUM CHLORIDE 0.9% 1000ML 250 ML IV ONE (03:56)
[2022-08-31] MEDS ORDERED: COUGH DROP (SUGAR FREE) LOZ 24 LOZ/1 BOX BUCCAL ONE (04:01)
[2022-08-31 05:05] LABS: BUN Creatinine Ratio 16.8 (10-20); Creatinine Clr Calc Pharmacy 50.8 ml/min; Est GFR (African American) 51.4 ml/min; Est GFR (Non-African American) 44.3 ml/min; Magnesium 1.9 mg/dl (1.7-2.4); Potassium 4.2 mmol/L (3.5-5.1)
[2022-08-31 05:27] LABS: Troponin I High Sensitivity 150.7 pg/ml (0-20)
[2022-08-31 06:39] LABS: Basophils # (auto) 0.01 K/uL (0-0.2); Basophils % (auto) 0.1 %; Eosinophils # (auto) 0.04 K/uL (0-0.50); Eosinophils % (auto) 0.4 %; Hematocrit (blood only) 32.2 % (42.0-52.0); Hemoglobin 10.9 g/dl (14.0-18.0); Immature Granulocytes # (auto) 0.04 K/uL (0.01-0.20); Immature Granulocytes % (auto) 0.4 %; Lymphocytes # (auto) 0.99 K/uL (1.2-3.4); Lymphocytes % (auto) 10.8 %; Mean Corpuscular Hemoglobin 31.2 pg (25.0-34.0); Mean Corpuscular Hgb Conc 33.9 g/dL (32.0-36.0); Mean Corpuscular Volume 92.3 fL (80.0-100.0); Mean Platelet Volume 9.5 fL (9.4-12.4); Monocytes # (auto) 0.84 K/uL (0.11-0.59); Monocytes % (auto) 9.1 %; Neutrophils # (auto) 7.27 K/uL (1.40-6.50); Neutrophils % (auto) 79.2 %; Platelet Count 187 K/uL (130-400); RDW Coefficient of Variation 16.5 % (11.5-14.5); RDW Standard Deviation 56.2 fL (36.4-46.3); Red Blood Count 3.49 M/uL (4.70-6.10); White Blood Count 9.19 K/ul (4.8-10.8)
[2022-08-31] MEDS: ALBUT/IPRATROP 3MG/0.5MG NEB 3 ML VIAL NEB SCH ×4 (07:12→19:29)
--- NOTE | 2022-08-31 07:41 | Ultrasound Report ---
Exam(s): US VENOUS RIGHT LOWER EXTREMITY EXAM: US Duplex Right Lower Extremity Veins CLINICAL HISTORY: Right warmth and swelling. TECHNIQUE: Real-time duplex ultrasound scan of the right lower extremity veins integrating B-mode two-dimensional vascular structure, Doppler spectral analysis, color flow Doppler imaging and compression. COMPARISON: No relevant prior studies available. FINDINGS: Deep veins: Unremarkable. No DVT in the visualized common femoral, femoral, proximal deep femoral or popliteal veins. The veins demonstrate normal color flow, are normally compressible, with normal phasic flow and/or augmentation response. Superficial veins: Unremarkable. No thrombus in the visualized great saphenous vein. Soft tissues: Nonspecific subcutaneous edema of the right calf. No popliteal cyst. IMPRESSION: 1. No deep vein thrombosis of the right lower extremity. 2. Nonspecific subcutaneous edema of the right calf. Electronically signed by: Daniella Coleman MD 08/31/22 07:41 AM
[2022-08-31 08:55] LABS: A calco-baum cmplx NotReported Not Detected (NotDetected); Bact fragilis Not Reported Not Detected (NotDetected); C auris Not Reported Not Detected (NotDetected); Calbicans Not Reported Not Detected (NotDetected); Candida glabrata Not Reported Not Detected (NotDetected); Candida krusei Not Reported Not Detected (NotDetected); Cneoformans/gatti Not Reported Not Detected (NotDetected); Cparapsilosis Not Reported Not Detected (NotDetected); Ctropicalis Not Reported Not Detected (NotDetected); E cloacae compx Not Reported Not Detected (NotDetected); Efaecalis Not Reported Not Detected (NotDetected); Efaecium Not Reported Not Detected (NotDetected); Enterobacterales Not Reported Not Detected (NotDetected); Escherichia coli Not Reported Not Detected (NotDetected); H influenzae Not Reported Not Detected (NotDetected); K aerogenes Not Reported Not Detected (NotDetected); Koxytoca Not Reported Not Detected (NotDetected); Kpneumoniae grp Not Reported Not Detected (NotDetected); Lmonocyt Not Reported Not Detected (NotDetected); N meningitidis Not Reported Not Detected (NotDetected); P aeruginosa Not Reported Not Detected (NotDetected); Proteus spp Not Reported Not Detected (NotDetected); Salmonella spp Not Reported Not Detected (NotDetected); Smarcescens Not Reported Not Detected (NotDetected); Staph lugdunensis Not Reported Not Detected (NotDetected); Staph spp. Not Reported Not Detected (NotDetected); Staphaureus Not Reported Not Detected (NotDetected); Staphepi Not Reported Not Detected (NotDetected); Stenmaltophilia Not Reported Not Detected (NotDetected); Strep agal(GrpB) Not Reported Not Detected (NotDetected); Strep pneum Not Reported DETECTED (NotDetected); Strep pyog (GrpA) Not Reported Not Detected (NotDetected); Strep spp Not Reported DETECTED (NotDetected); Streptococcus spp DETECTED (NotDetected)
[2022-08-31] MEDS ORDERED: lisinopril 10 MG TAB PO SCH (09:00)
[2022-08-31] MEDS: RANOLAZINE 500 MG ER TAB PO SCH ×2 (09:00→20:21)
[2022-08-31] MEDS: ASPIRIN 81 MG ECTAB PO SCH (09:00)
[2022-08-31] MEDS: GABAPENTIN 100 MG CAP PO SCH ×3 (09:01→20:21)
[2022-08-31] MEDS: ISOSORBIDE MONO EXTENDED REL 60 MG TABCR PO SCH (09:01)
[2022-08-31] MEDS: APIXABAN 5 MG TABLET PO SCH ×2 (09:01→20:21)
[2022-08-31] MEDS: DULoxetine HCL 60 MG CAP PO SCH (09:01)
[2022-08-31] MEDS: BENZONATATE 100 MG CAPSULE PO PRN ×2 (09:07→18:47)
[2022-08-31 09:37] LABS: Streptococcus pneumoniae DETECTED (NotDetected)
[2022-08-31] MEDS: PANTOprazole 40 MG TAB PO SCH (10:09)
[2022-08-31] MEDS: AMIODARONE 200 MG TAB PO SCH (10:09)
[2022-08-31] MEDS: CLOTRIMAZOLE 1% CR 15 GM TUBE EXT SCH ×2 (10:13→20:22)
--- NOTE | 2022-08-31 11:43 | Electrocardiogram Report ---
Test Reason : Blood Pressure : / mmHG Vent. Rate : 069 BPM Atrial Rate : 069 BPM P-R Int : 212 ms QRS Dur : 124 ms QT Int : 516 ms P-R-T Axes : 057 -44 031 degrees QTc Int : 552 ms Poor data quality, interpretation may be adversely affected Sinus rhythm with 1st degree A-V block Left axis deviation Non-specific intra-ventricular conduction delay Abnormal ECG When compared with ECG of 30-AUG-2022 15:45, (unconfirmed) Significant changes have occurred Confirmed by Christopher Munoz ([id number]) on 08/31/2022 11:43:01 AM Referred By: Danny Soliman Confirmed By:Christopher Munoz
[2022-08-31] MEDS: SODIUM CHLORIDE 0.9% 1000ML 1,000 ML IV SCH ×2 (12:02→20:36)
--- NOTE | 2022-08-31 12:31 | Electrocardiogram Report ---
Test Reason : Blood Pressure : / mmHG Vent. Rate : 114 BPM Atrial Rate : 114 BPM P-R Int : 184 ms QRS Dur : 130 ms QT Int : 324 ms P-R-T Axes : 056 -48 087 degrees QTc Int : 446 ms Poor data quality, interpretation may be adversely affected Sinus tachycardia Left axis deviation Non-specific intra-ventricular conduction block T wave abnormality, consider lateral ischemia Abnormal ECG When compared with ECG of 20-AUG-2022 11:01, (unconfirmed) Vent. rate has increased BY 58 BPM Questionable change in QRS duration Confirmed by Christopher Munoz ([id number]) on 08/31/2022 12:31:43 PM Referred By: Confirmed By:Christopher Munoz
--- NOTE | 2022-08-31 14:17 | Hospitalist Progress Note ---
Date of Service August 31, 2022 Assessment & Plan (1) Respiratory failure with hypoxia: Plan: -The patient is currently afebrile, and currently stable on 2L NC -The patient has been having 4 days of progressive cough with yellow sputum, fevers, and was found to be hypoxic on RA -chest xray was read as possible RLL pneumonia, he was also found to he parainfluenza positive. While he is without a leukocytosis and his procal is negative, he is currently on Rinvoq for RA, this puts him at a significantly increased risk of serious infections Immunocompromised due to being on Rinvoq -continue with Unasyn and Azithromycin for now -Continue incentive spirometry, flutter therapy, QID DuoNebs, scheduled robitussin, and prn O2 to keep SpO2 at or greater than 95% -Blood cultures growing strep pneumo -Will hold Rinvoq for now until his infection has resolved -Will start Sub-Q lovenox for DVT PPX, hold SCD's until his RLE venous doppler is obtained -AM CBC, BMP, Mag (2) Pneumonia: Plan: Patient presented with productive cough, fever, hypoxia Chest x-ray showed right lower lobe pneumonia Blood culture growing Streptococcus pneumoniae Ordered sputum culture, pending Pneumonia seems to be the most likely source of bacteremia (3) Bacteremia due to Streptococcus pneumoniae: Plan: Blood culture growing strep pneumo Most likely from pneumonia Order sputum culture Ordered 2D echo to rule out valvular vegetation Consult infectious disease (4) Acute kidney injury: Plan: Patient feels thirsty, appears to be dehydrated Had low blood pressures overnight Likely prerenal We will start IV fluids at 125 mils an hour Monitor BMP Avoid nephrotoxic medications (5) Elevated troponin: Plan: Initial high sen trop elevated at 31, next troponins went up to 100s range -The patient is asymptomatic and without acute ECG changes -Likely due to demand from his hypoxia on arrival Ordered echocardiogram Patient recently had a dobutamine stress echocardiogram done 08/21, pending results (6) Hypomagnesemia: Plan: -Repleted (7) Right leg swelling: Plan: RLE with a minimal amount of swelling compared to the left, the patient states that the RLE has been more swollen since his hospitalization in [place] -Venous duplex ultrasound of right lower extremity ruled out DVT -The patient is on Elqiuis (8) Benign essential hypertension: Plan: Was initially found to be hypertensive at 195/118, resolved without intervention, currently hemodynamically stable -Patient confirmed he did not have his medications today -Blood pressure on the low side, will hold lisinopril due to soft blood pressure readings as well as acute kidney injury Continue Imdur with holding parameters (9) Heart failure with preserved ejection fraction: Plan: LVEF WNL as of his last echo in Jul of this year -Currently euvolemic on exam -Continue Imdur with holding parameters and monitor volume status, especially now that he is getting IV fluids (10) Coronary artery disease: Plan: -Continue aspirin and statin (11) Atrial fibrillation: Plan: Stable -Continue Amiodarone and Eliquis -Per the last cardiology note by Dr. Cardenas on 08/20, the patient's dose of Eliquis had previously been reduced from 5 mg BID to 2.5 mg BID for a possible GI which has resolved. He recommended increasing his dose back to 5 mg PO BID, will increase his dose back to 5 mg PO BID, monitor for signs of bleeding (12) Rheumatoid arthritis: Plan: -Typically on Rivoq, hold for acute infection (13) Anxiety and depression: Plan: Continue Duloxetine (14) GERD (gastroesophageal reflux disease): Plan: Normally takes 40 mg Nexium HS -Will switch to 40 mg PO Pantoprazole daily while admitted (15) Fungal infection of foot: Plan: Patient noted to have erythema and white crusting on and between the toes of the right foot, consistent with a fungal infection -Will start BID topical Clotrimazole for now, continue to monitor for improvement Admission and Anticipated Discharge Date Admission Date: August 30, 2022 Subjective Patient says that he is still short of breath and still has been coughing. He does not feel much better compared to when he first came to the hospital. Review of Systems Review of Systems: All systems reviewed & are unremarkable except as noted in Subjective Physical Exam Physical Exam: General: Awake, conversant. Coughing Heart: S1, S2/regular rate and rhythm, no murmur rubs or gallops Lungs: Prominent right lower lung crackles. Few left lower lung crackles were also heard. Normal effort Abdomen: Soft/nontender/nondistended. No hepatosplenomegaly Extremities: No clubbing/cyanosis. No edema Behavior: Appropriate, cooperative Results & Data Results & Data Vital Signs (Past 12 Hours) Vital Signs Temp Pulse Pulse Resp BP Pulse Ox O2 Del Method 08/31/22 12:03 71 08/31/22 11:21 37.0 C 64 18 102/65 97 Nasal Cannula 08/31/22 11:10 Nasal Cannula 08/31/22 09:00 71 08/31/22 10:59 68 18 97 Nasal Cannula 08/31/22 07:23 36.8 C 59 L 17 97/57 L 96 Nasal Cannula 08/31/22 07:12 62 18 92 Nasal Cannula 08/31/22 03:23 37.4 C 70 18 79/49 L 96 Nasal Cannula O2 Flow Rate 08/31/22 12:03 08/31/22 11:21 2 08/31/22 11:10 4 08/31/22 09:00 08/31/22 10:59 2 08/31/22 07:23 2 08/31/22 07:12 3.5 08/31/22 03:23 4 Laboratory Results Abnormal lab results 08/30/22 08/30/22 08/30/22 Range/Units 15:54 15:54 15:54 RBC 4.45 L (4.70-6.10) M/uL Hgb (14.0-18.0) g/dl Hct 41.2 L (42.0-52.0) % RDW Std Deviation 55.0 H (36.4-46.3) fL RDW Coeff of Sammie 16.3 H (11.5-14.5) % Neut # (Auto) (1.40-6.50) K/uL Lymph # (Auto) 0.52 L (1.2-3.4) K/uL Cross # (Auto) (0.11-0.59) K/uL Sodium (136-145) mmol/L BUN (6-23) mg/dl Creatinine (0.6-1.4) mg/dl Glucose 121 H (70-99(Fasting)) mg/dl Lactate 2.9 H* (0.4-2.0) mmol/L Calcium (8.6-10.3) mg/dl Magnesium 1.4 L (1.7-2.4) mg/dl Troponin I High Sens 31.0 H (0-20) pg/ml Urine Protein (Negative) U Epithel Cells (Auto) (0-5) /lpf Parainfluenza 3 (PCR) (NotDetected) Streptococcus sp PCR (NotDetected) Strep pneumoniae (PCR) (NotDetected) 08/30/22 08/30/22 08/30/22 Range/Units 17:35 17:58 21:27 RBC (4.70-6.10) M/uL Hgb (14.0-18.0) g/dl Hct (42.0-52.0) % RDW Std Deviation (36.4-46.3) fL RDW Coeff of Sammie (11.5-14.5) % Neut # (Auto) (1.40-6.50) K/uL Lymph # (Auto) (1.2-3.4) K/uL Cross # (Auto) (0.11-0.59) K/uL Sodium (136-145) mmol/L BUN (6-23) mg/dl Creatinine (0.6-1.4) mg/dl Glucose (70-99(Fasting)) mg/dl Lactate (0.4-2.0) mmol/L Calcium (8.6-10.3) mg/dl Magnesium (1.7-2.4) mg/dl Troponin I High Sens 135.8 H* D (0-20) pg/ml Urine Protein Trace H (Negative) U Epithel Cells (Auto) 5-10 H (0-5) /lpf Parainfluenza 3 (PCR) DETECTED A* (NotDetected) Streptococcus sp PCR (NotDetected) Strep pneumoniae (PCR) (NotDetected) 08/31/22 08/31/22 08/31/22 Range/Units 04:34 04:34 10:15 RBC 3.49 L (4.70-6.10) M/uL Hgb 10.9 L D (14.0-18.0) g/dl Hct 32.2 L (42.0-52.0) % RDW Std Deviation 56.2 H (36.4-46.3) fL RDW Coeff of Sammie 16.5 H (11.5-14.5) % Neut # (Auto) 7.27 H (1.40-6.50) K/uL Lymph # (Auto) 0.99 L (1.2-3.4) K/uL Cross # (Auto) 0.84 H (0.11-0.59) K/uL Sodium 135 L (136-145) mmol/L BUN 25 H (6-23) mg/dl Creatinine 1.49 H D (0.6-1.4) mg/dl Glucose 107 H (70-99(Fasting)) mg/dl Lactate (0.4-2.0) mmol/L Calcium 8.0 L (8.6-10.3) mg/dl Magnesium (1.7-2.4) mg/dl Troponin I High Sens 150.7 H* 109.0 H* D (0-20) pg/ml Urine Protein (Negative) U Epithel Cells (Auto) (0-5) /lpf Parainfluenza 3 (PCR) (NotDetected) Streptococcus sp PCR (NotDetected) Strep pneumoniae (PCR) (NotDetected) 08/31/22 Range/Units 15:54 RBC (4.70-6.10) M/uL Hgb (14.0-18.0) g/dl Hct (42.0-52.0) % RDW Std Deviation (36.4-46.3) fL RDW Coeff of Sammie (11.5-14.5) % Neut # (Auto) (1.40-6.50) K/uL Lymph # (Auto) (1.2-3.4) K/uL Cross # (Auto) (0.11-0.59) K/uL Sodium (136-145) mmol/L BUN (6-23) mg/dl Creatinine (0.6-1.4) mg/dl Glucose (70-99(Fasting)) mg/dl Lactate (0.4-2.0) mmol/L Calcium (8.6-10.3) mg/dl Magnesium (1.7-2.4) mg/dl Troponin I High Sens (0-20) pg/ml Urine Protein (Negative) U Epithel Cells (Auto) (0-5) /lpf Parainfluenza 3 (PCR) (NotDetected) Streptococcus sp PCR DETECTED A (NotDetected) Strep pneumoniae (PCR) DETECTED A (NotDetected) Diagnostic Findings Chest X-Ray 08/30/22 15:51 SINGLE VIEW CHEST CLINICAL HISTORY: Sepsis. FINDINGS: An AP, portable, upright chest radiograph is obtained. No prior studies are available for comparison at the time of dictation. The examination is degraded by portable technique and patient rotation. The heart is mildly enlarged. The pulmonary vasculature is noncongested. There is right basilar consolidation. The left lung appears clear. No large pleural effusion or pneumothorax is seen. The skeletal structures are osteopenic. The bony thorax is grossly intact. Advanced arthritic change is seen in the left shoulder. IMPRESSION: Right basilar consolidation is typical for pneumonia/aspiration pneumonitis. Clinical correlation will be required and radiographic follow-up to resolution is recommended. ACT 112: Negative or not required by law. Electronically signed by: Maxime Faust M.D. 08/30/2022 4:39 PM Venous Doppler Study 08/31/22 00:00 Exam(s): US VENOUS RIGHT LOWER EXTREMITY EXAM: US Duplex Right Lower Extremity Veins CLINICAL HISTORY: Right warmth and swelling. TECHNIQUE: Real-time duplex ultrasound scan of the right lower extremity veins integrating B-mode two-dimensional vascular structure, Doppler spectral analysis, color flow Doppler imaging and compression. COMPARISON: No relevant prior studies available. FINDINGS: Deep veins: Unremarkable. No DVT in the visualized common femoral, femoral, proximal deep femoral or popliteal veins. The veins demonstrate normal color flow, are normally compressible, with normal phasic flow and/or augmentation response. Superficial veins: Unremarkable. No thrombus in the visualized great saphenous vein. Soft tissues: Nonspecific subcutaneous edema of the right calf. No popliteal cyst. IMPRESSION: 1. No deep vein thrombosis of the right lower extremity. 2. Nonspecific subcutaneous edema of the right calf. Electronically signed by: Daniella Coleman MD 08/31/22 07:41 AM PG Care Time/CCT Total # of Minutes Spent Total Time Spent with Patient: Total time spent is greater than 50% in coordination of care (as documented) at patient's floor/unit and/or counseling patient: Coding Level of Care Code 65775 SUB INP/OBS CARE 2/35MIN Diagnoses Respiratory failure with hypoxia J96.91 Pneumonia J18.9 Laterality: right Lung location: lower lobe of lung Pneumonia type: due to unspecified organism Bacteremia due to Streptococcus pneumoniae R78.81; B95.3 Acute kidney injury N17.9 Elevated troponin R77.8 Hypomagnesemia E83.42 Right leg swelling M79.89 Benign essential hypertension I10 Heart failure with preserved ejection fraction I50.30 Coronary artery disease I25.10 Atrial fibrillation I48.91 Rheumatoid arthritis M06.9 Anxiety and depression F41.9; F32.A GERD (gastroesophageal reflux disease) K21.9 Fungal infection of foot B35.3 (2) Pneumonia Laterality: right Lung location: lower lobe of lung Pneumonia type: due to unspecified organism Qualified Code(s): J18.9 - Pneumonia, unspecified organism
[2022-08-31] MEDS ORDERED: AZITHROMYCIN 250 MG in DEXTROSE 5% 250 ML IV SCH (19:00)
[2022-08-31] MEDS: PRAVASTATIN SOD 40 MG TAB PO SCH (20:21)
[2022-08-31] MEDS: MELATONIN 3 MG TAB PO SCH (20:21)
[2022-08-31] MEDS: TRAVOPROST Z 0.004% OPH SOLN 2.5 ML BTL OP SCH (20:22)
[2022-09-01] MEDS: AMPICILLIN/SULBACTAM SOD 3,000 MG in 0.9 % SODIUM CHLORIDE 100 ML IV SCH ×2 (00:59→06:00)
[2022-09-01] MEDS: BENZONATATE 100 MG CAPSULE PO PRN ×2 (01:01→20:53)
[2022-09-01] MEDS: guaiFENesin SUGAR FREE 200 MG/10 ML UDC PO SCH ×4 (03:17→20:53)
[2022-09-01] MEDS: SODIUM CHLORIDE 0.9% 1000ML 1,000 ML IV SCH (04:55)
[2022-09-01 07:04] LABS: Basophils # (auto) 0.01 K/uL (0-0.2); Basophils % (auto) 0.1 %; Eosinophils # (auto) 0.09 K/uL (0-0.50); Hematocrit (blood only) 31.7 % (42.0-52.0); Hemoglobin 10.7 g/dl (14.0-18.0); Immature Granulocytes # (auto) 0.11 K/uL (0.01-0.20); Immature Granulocytes % (auto) 1.2 %; Lymphocytes # (auto) 0.57 K/uL (1.2-3.4); Lymphocytes % (auto) 6.2 %; Mean Corpuscular Hgb Conc 33.8 g/dL (32.0-36.0); Mean Corpuscular Volume 91.9 fL (80.0-100.0); Mean Platelet Volume 9.8 fL (9.4-12.4); Monocytes # (auto) 0.81 K/uL (0.11-0.59); Monocytes % (auto) 8.8 %; Neutrophils % (auto) 82.7 %; Platelet Count 170 K/uL (130-400); RDW Coefficient of Variation 16.8 % (11.5-14.5); RDW Standard Deviation 57.1 fL (36.4-46.3); Red Blood Count 3.45 M/uL (4.70-6.10); White Blood Count 9.19 K/ul (4.8-10.8)
[2022-09-01] MEDS: ALBUT/IPRATROP 3MG/0.5MG NEB 3 ML VIAL NEB SCH ×4 (07:21→19:52)
[2022-09-01 07:33] LABS: BUN Creatinine Ratio 18.7 (10-20); Creatinine Clr Calc Pharmacy 71.4 ml/min; Est GFR (African American) 76.7 ml/min; Est GFR (Non-African American) 66.1 ml/min; Magnesium 1.8 mg/dl (1.7-2.4); Potassium 3.8 mmol/L (3.5-5.1)
[2022-09-01] MEDS ORDERED: VANCOMYCIN CONSULT ACTIVE PRN (08:00)
[2022-09-01] MEDS ORDERED: VANCOMYCIN HCL 2,000 MG in SODIUM CHLORIDE 0.9% 500 ML IV ONE (08:00)
[2022-09-01] MEDS: cefTRIAXone SODIUM 2,000 MG in DEXTROSE 5% 50 ML IV SCH (08:39)
[2022-09-01] MEDS: APIXABAN 5 MG TABLET PO SCH ×2 (08:40→20:56)
[2022-09-01] MEDS: GABAPENTIN 100 MG CAP PO SCH ×3 (08:40→20:55)
[2022-09-01] MEDS: RANOLAZINE 500 MG ER TAB PO SCH ×2 (08:40→20:55)
[2022-09-01] MEDS: DULoxetine HCL 60 MG CAP PO SCH (08:40)
[2022-09-01] MEDS: AMIODARONE 200 MG TAB PO SCH (08:41)
[2022-09-01] MEDS: ISOSORBIDE MONO EXTENDED REL 60 MG TABCR PO SCH (08:41)
[2022-09-01] MEDS: PANTOprazole 40 MG TAB PO SCH (08:41)
[2022-09-01] MEDS: ASPIRIN 81 MG ECTAB PO SCH (08:41)
[2022-09-01] MEDS: CLOTRIMAZOLE 1% CR 15 GM TUBE EXT SCH ×2 (08:42→20:58)
--- NOTE | 2022-09-01 09:48 | XCELERA ---
[id number]
--- NOTE | 2022-09-01 10:25 | Infectious Disease Consult ---
Date of Consultation September 01, 2022 Assessment & Plan (1) Bacteremia due to Streptococcus pneumoniae: #strep pneumo bacteremia -secondary to PNA -immunocompromised, on rinvoq for RA- currently held -Patient is currently on ceftriaxone 2 g every 24 and azithromycin 250 IV q. 24. -08/31 nasal MRSA screen is negative. 08/30 respiratory viral panel detected parainfluenza 3. 08/30 blood cultures with strep pneumoniae in 1 of 2 sets. 08/31 sputum culture pending. #prior h/o R knee septic arthritis 03/2022 -pt reports completed several weeks of abx as planned without issues -follows with rheumatology -plan for surgery September Plan Rec: Would stop azithromycin and continue CTX 2 g IV q24 for bacteremia/PNA. F/u sputum cx. Will repeat Bcxs to document clearance. At this time, there is low suspicion of knee involvement. Consultation Information Consultation was provided via telemedicine using two-way real-time interactive telecommunication between the patient and the telemedicine provider. For the duration of the visit, the provider was performing the assessment from a different facility than the patient. This includesuse of bluetooth stethoscope forauscultationperformed by the telepresenter that the telemedicine provider can hear if described in the physical exam. Auxiliary Powerplant Operator contact information: Please call [facility] [phone]. (Phone Number For Physician Use Only) After establishing a telemedicine visit, patient was: Patient was verified with two unique identifiers, Patient/authorized rep acknowledged consent and understanding and Gave permission to continue telehealth session Time Spent with Patient: Initial => 40 min History of Present Illness Attending Physician: Bouchra Gasca MD History of Present Illness Consult requested for strep bacteremia in this 76-year-old male, past medical history of atrial fibrillation, right knee septic arthritis 03/2022 in [place], [place], [place], hypertension, anxiety/depression, rheumatoid arthritis, on upadacitinib, resident of personal long term, who presented to the ED on 08/30/2022 with difficulty breathing. He reported 4 days of progressive cough with yellow sputum. Patient was noted to have fever and hypoxia on presentation. In the ED, temperature was 39.4, heart rate 119, respiratory rate 22, blood pressure 195/118, O2 sat 88% on room air. O2 saturation renetta to 94% on 4 L nasal cannula. Admission labs significant for WBC 6.22, 85.8% neutrophils, creatinine 1.06, lactate 2.9, procalcitonin 0.06, negative COVID/flu/RSV PCR, UA negative for pyuria. Portable chest x-ray showed right basilar consolidation typical for pneumonia/aspiration pneumonitis. Right lower extremity Doppler negative for DVT. Patient was given a dose of Zosyn in the ED and started on Unasyn and azithromycin. He was also prescribed clotrimazole for evidence of fungal infection between the toes of right foot. Rinvoq to be held until infection resolved. Patient is currently on ceftriaxone 2 g every 24 and azithromycin 250 IV q. 24. 08/31 nasal MRSA screen is negative. 08/30 respiratory viral panel detected parainfluenza 3. 08/30 blood cultures with strep pneumoniae in 1 of 2 sets. 08/31 sputum culture pending. Patient was febrile on 08/30. He has been afebrile since. WBC remains nl, Creatinine has improved to 1.07. Discharge summary from hospital in [facility] on 03/26/2022 reviewed. It notes right knee septic arthritis for which patient underwent I&D and lavage and was to be on vancomycin as well as cefepime. Blood culture was positive for Staphylococcus epidermidis which was determined to be a contaminant and a gram- negative bacteria for which identification was not able to be performed. Recommendation from infectious disease was for 4 to 6 weeks of antibiotics. There is no noted culture results from OR. Rheumatology visit note from 08/19/2022 indicates plan to hold Rinvoq 1 week prior to surgery planned 09/09 given his prior history of infection and determining at postop visit approximately 2 weeks after surgery if he can resume Rinvoq. Pt is alert and responding to questions and providing history appropriately. He reports fever/chills have resolved. no abd pain/diarrhea. He continues to feel SOB when coughing. Cough has not significantly changed. Knee with no new issues. pt reports he had no issues with completion of abx for knee infection- reports he did take abx for several weeks. He states that feet "always look like that". Allergies Allergy/AdvReac Type Severity Reaction Status Date / Time No Known Allergies Allergy Verified 08/20/22 11:18 Home Medications Medication Instructions Recorded Confirmed Type sennosides 8.6 mg capsule (senna) 8.6 mg PO HS 06/19/22 08/30/22 History nitroglycerin 0.4 mg sublingual 0.4 mg sublingual Q5M PRN chest 07/23/22 08/30/22 Rx tablet pain #30 tabs ranolazine 500 mg tablet,extended 500 mg PO BID #60 tabs 07/23/22 08/30/22 Rx release,12 hr travoprost 0.004 % eye drops 1 drp ophthalmic (eye) QPM #2.5 mL 07/23/22 08/30/22 Rx (Travatan Z) B-complex with vitamin C 1 cap PO QAM 08/07/22 08/30/22 History acetaminophen 650 mg 1,300 mg PO BID 08/07/22 08/30/22 History tablet,extended release (Tylenol 8 Hour) amiodarone 200 mg tablet 200 mg PO QAM 08/07/22 08/30/22 History ascorbic acid (vitamin C) 500 mg 1,000 mg PO QAM 08/07/22 08/30/22 History capsule aspirin 81 mg tablet,delayed 81 mg PO QAM 08/07/22 08/30/22 History release (Adult Low Dose Aspirin) cholecalciferol (vitamin D3) 25 25 mcg PO QAM 08/07/22 08/30/22 History mcg (1,000 unit) capsule coenzyme Q10 100 mg capsule 10 mg PO QAM 08/07/22 08/30/22 History duloxetine 30 mg capsule,delayed 60 mg PO QAM 08/07/22 08/30/22 History release esomeprazole magnesium 40 mg 40 mg PO HS 08/07/22 08/30/22 History capsule,delayed release (Nexium) isosorbide mononitrate 60 mg 60 mg PO QAM 08/07/22 08/30/22 History tablet,extended release 24 hr lactobacillus combination no.9 4 6,000 mmu cells PO QAM 08/07/22 08/30/22 History billion cell capsule (Adult 50 Plus Probiotic) lisinopril 10 mg tablet 10 mg PO QAM 08/07/22 08/30/22 History melatonin 5 mg capsule 5 mg PO HS 08/07/22 08/30/22 History frhmyjuw-koikweb-hkoz-lutein tablet 1 tab PO QAM 08/07/22 08/30/22 History omega 3-gtc-ddm-fish oil 1,000 mg 1 cap PO QAM 08/07/22 08/30/22 History (120 mg-180 mg) capsule (Fish Oil) oxycodone 5 mg tablet 5 mg PO QID PRN pain 08/07/22 08/30/22 History pravastatin 40 mg tablet 40 mg PO HS 08/07/22 08/30/22 History upadacitinib 15 mg tablet,extended 15 mg PO HS 08/07/22 08/30/22 History release 24 hr (Rinvoq) gabapentin 100 mg capsule 100 mg PO TID 90 days #270 caps 08/11/22 08/30/22 Rx apixaban 2.5 mg tablet (Eliquis) 5 mg PO BID 08/30/22 08/30/22 History Patient History Medical History Anxiety and depression Atrial fibrillation episode occurred in 03/2022, taken to [facility] in [place], admitted to ICU for 1-2 weeks (was not intubated, but wasn't "awake either"), then to cardiac unit, then to rehab at [facility]; f/u dr. guerra in [place]>will be starting to see a mass spectrometry manager at [facility] 2nd week of 08/2022 GERD (gastroesophageal reflux disease) Hx of staphylococcal infection 03/2022, w/"bacterial infection" at the same, in the rt. knee, occurrred during atrial fibrillation episode. "when he woke up, he couldn't walk." Hypertension Lumbar stenosis Myocardial Infarction "a silent one, about 3 years ago" Rheumatoid arthritis Sleep apnea no device Surgical History History of bowel resection for diverticulitis; w/colostomy placement for 3-4 months History of cardiac cath ~3 years ago, SOB and "felt like throat was constricting", had "silent heart attack", x2 stents, done in [place] History of colostomy reversal History of esophagogastroduodenoscopy (EGD) History of heart artery stent ~3 years ago, x2 stents, done in [place]; f/u dr guerra, [place]>will be seeing new cardio at [facility] 2nd week of August 2022. Hx of Achilles tendon repair rt. Hx of bilateral cataract extraction Hx of colonoscopy Last Colonoscopy 08/14/22, repeat 3 years in 2025 Hx of hernia repair near former colostomy site Hx of knee surgery rt. patellar tendon repair Hx of rotator cuff surgery bilateral Hx of total hip arthroplasty rt. Hx of total knee replacement lt. 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 Required: No Beliefs That Will Affect Care: None marital status: Single Current Living Situation: [place] [facility] current occupational status: retired How many Children do You have: 2 Feels Safe at Home: Yes Safety Concerns: Feels Safe At This Time Childhood Exposure to Second-Hand Smoke: Yes caffeine: Yes Dental Care, Regularly: Yes Physical Activity Frequency: Does not Exercise Seatbelt Use: always Sunscreen Use: Yes Assistive Devices: Walker and Wheelchair Physical Exam Physical Exam: PE: Gen: Awake, alert, fatigued-appearing, NAD HEENT: anicteric Lungs: +wheezing and rhonchi- pt coughing frequently during exam Abd: Soft, NT/ND Extr: no c/c R foot >L foot erythema base of foot/between toes. R knee > L swelling, no erythema, no significant warmth. Skin: R and L peripheral IVs ok Results & Data Vital Signs (Past 12 Hours) Vital Signs Temp Pulse Pulse Resp BP Pulse Ox O2 Del Method 09/01/22 08:00 Nasal Cannula 09/01/22 08:07 36.9 C 79 17 139/76 95 Nasal Cannula 09/01/22 07:00 70 09/01/22 07:21 81 20 95 Nasal Cannula 09/01/22 03:13 36.7 C 73 20 111/79 95 Nasal Cannula 09/01/22 00:03 55 L 08/31/22 22:44 36.8 C 74 15 127/68 95 Nasal Cannula O2 Flow Rate 09/01/22 08:00 2 09/01/22 08:07 2 09/01/22 07:00 09/01/22 07:21 09/01/22 03:13 2 09/01/22 00:03 08/31/22 22:44 2 Laboratory Results 08/30/22 15:54 Aerobic Blood Culture - Preliminary Blood No growth in Aerobic bottle after 24 hours. Anaerobic Blood Culture - Preliminary Streptococcus pneumoniae 08/31/22 11:45 Gram Stain - Final Sputum, Expectorated Sputum Culture - Pending 08/30/22 15:51 Aerobic Blood Culture - Preliminary Blood No growth in Aerobic bottle after 24 hours. Anaerobic Blood Culture - Preliminary No growth in Anaerobic bottle after 24 hours. 09/01/22 09/01/22 08/31/22 06:17 06:17 10:15 WBC 9.19 RBC 3.45 L Hgb 10.7 L Hct 31.7 L MCV 91.9 MCH 31.0 MCHC 33.8 RDW Std Deviation 57.1 H RDW Coeff of Sammie 16.8 H Plt Count 170 MPV 9.8 Immature Gran % (Auto) 1.2 Neut % (Auto) 82.7 Lymph % (Auto) 6.2 Glynn % (Auto) 8.8 Eos % (Auto) 1.0 Baso % (Auto) 0.1 Neut # (Auto) 7.60 H Lymph # (Auto) 0.57 L Glynn # (Auto) 0.81 H Eos # (Auto) 0.09 Baso # (Auto) 0.01 Immature Gran # (Auto) 0.11 Sodium 137 Potassium 3.8 Chloride 106 Carbon Dioxide 26 Anion Gap 5 BUN 20 Creatinine 1.07 D Est Cr Clr Drug Dosing 71.4 Est GFR ( Amer) 76.7 Est GFR (Non-Af Amer) 66.1 BUN/Creatinine Ratio 18.7 Glucose 91 Calcium 8.0 L Magnesium 1.8 Troponin I High Sens 109.0 H* D Diagnostic Findings Chest X-Ray 08/30/22 15:51 SINGLE VIEW CHEST CLINICAL HISTORY: Sepsis. FINDINGS: An AP, portable, upright chest radiograph is obtained. No prior studies are available for comparison at the time of dictation. The examination is degraded by portable technique and patient rotation. The heart is mildly enlarged. The pulmonary vasculature is noncongested. There is right basilar consolidation. The left lung appears clear. No large pleural effusion or pneumothorax is seen. The skeletal structures are osteopenic. The bony thorax is grossly intact. Advanced arthritic change is seen in the left shoulder. IMPRESSION: Right basilar consolidation is typical for pneumonia/aspiration pneumonitis. Clinical correlation will be required and radiographic follow-up to resolution is recommended. ACT 112: Negative or not required by law. Electronically signed by: Maxime Faust M.D. 08/30/2022 4:39 PM Venous Doppler Study 08/31/22 00:00 Exam(s): US VENOUS RIGHT LOWER EXTREMITY EXAM: US Duplex Right Lower Extremity Veins CLINICAL HISTORY: Right warmth and swelling. TECHNIQUE: Real-time duplex ultrasound scan of the right lower extremity veins integrating B-mode two-dimensional vascular structure, Doppler spectral analysis, color flow Doppler imaging and compression. COMPARISON: No relevant prior studies available. FINDINGS: Deep veins: Unremarkable. No DVT in the visualized common femoral, femoral, proximal deep femoral or popliteal veins. The veins demonstrate normal color flow, are normally compressible, with normal phasic flow and/or augmentation response. Superficial veins: Unremarkable. No thrombus in the visualized great saphenous vein. Soft tissues: Nonspecific subcutaneous edema of the right calf. No popliteal cyst. IMPRESSION: 1. No deep vein thrombosis of the right lower extremity. 2. Nonspecific subcutaneous edema of the right calf. Electronically signed by: Daniella Coleman MD 08/31/22 07:41 AM Medications Administered Current Medications Acetaminophen (Acetaminophen 325 Mg Tab) 650 mg PO Q6H PRN PRN Reason: paiun (1,2,3), fever, headache Stop: 09/29/22 18:44 Albuterol (Albut/Ipratrop 3mg/0.5mg Neb 3 Ml Vial) 3 ml NEB QIDR [facility]; Protocol Stop: 09/29/22 18:59 Last Admin: 09/01/22 07:21 Dose: 3 ml Amiodarone HCl (Amiodarone 200 Mg Tab) [facility] [place] Stop: 09/30/22 08:59 Last Admin: 09/01/22 08:41 Dose: 200 mg Apixaban (Apixaban 5 Mg Tablet) 5 mg PO BID [facility] Stop: 09/29/22 21:06 Last Admin: 09/01/22 08:40 Dose: 5 mg Aspirin (Aspirin 81 Mg Ectab) 81 mg PO QAM [facility] Stop: 09/30/22 08:59 Last Admin: 09/01/22 08:41 Dose: 81 mg Benzonatate (Benzonatate 100 Mg Capsule) 200 mg PO TID PRN PRN Reason: Cough Stop: 09/29/22 21:43 Last Admin: 09/01/22 01:01 Dose: 200 mg Clotrimazole (Clotrimazole 1% Cr 15 Gm Tube) 1 appln EXT BID [facility] Stop: 09/29/22 20:59 Last Admin: 09/01/22 08:42 Dose: 1 appln Duloxetine HCl (Duloxetine Hcl 60 Mg Cap) 60 mg PO QAM [facility] Stop: 09/29/22 21:06 Last Admin: 09/01/22 08:40 Dose: 60 mg Gabapentin (Gabapentin 100 Mg Cap) 100 mg PO TID [facility] Stop: 09/29/22 21:06 Last Admin: 09/01/22 08:40 Dose: 100 mg Guaifenesin (Guaifenesin Sugar Free 200 Mg/10 Ml Udc) 200 mg PO Q6H [facility] Stop: 09/29/22 20:59 Last Admin: 09/01/22 08:40 Dose: 200 mg Azithromycin 250 mg/ Dextrose 252.5 mls @ 125 mls/hr IV Q24H [facility] Stop: 09/07/22 18:59 Last Infusion: 08/31/22 21:18 Dose: Infused Vancomycin HCl 2,000 mg/ (Sodium Chloride) 540 mls @ 200 mls/hr IV NOW ONE Stop: 09/01/22 10:41 Last Admin: 09/01/22 08:39 Dose: 200 mls/hr Ceftriaxone Sodium 2,000 mg/ (Dextrose) 70 mls @ 100 mls/hr IV Q24H [facility]; Protocol Stop: 09/15/22 07:59 Last Infusion: 09/01/22 09:40 Dose: Infused Isosorbide Mononitrate (Isosorbide Glynn Extended Rel 60 Mg Tabcr) 60 mg PO QAM [facility] Stop: 09/30/22 08:59 Last Admin: 09/01/22 08:41 Dose: 60 mg Melatonin (Melatonin 3 Mg Tab) 6 mg PO HS [facility] Stop: 09/30/22 20:59 Last Admin: 08/31/22 20:21 Dose: 6 mg Menthol (Cough Drop (Sugar Free) Wendy 24 Wendy/1 Box) 1 wendy BUCCAL Q1H PRN PRN Reason: Cough Stop: 09/30/22 03:53 Miscellaneous Information (Vancomycin Consult Active) 1 each N/A UD PRN PRN Reason: Consult Stop: 10/01/22 07:59 Oxycodone HCl (Oxycodone Hcl Ir 5 Mg Tab (Immediate Release)) 5 mg PO QID PRN PRN Reason: pain (4,5,6+) Stop: 09/13/22 21:06 Pantoprazole Sodium (Pantoprazole 40 Mg Tab) 40 mg PO DAILY ELDER Stop: 09/30/22 08:59 Last Admin: 09/01/22 08:41 Dose: 40 mg Pravastatin Sodium (Pravastatin Sod 40 Mg Tab) 40 mg PO HS ELDER Stop: 09/29/22 21:06 Last Admin: 08/31/22 20:21 Dose: 40 mg Ranolazine (Ranolazine 500 Mg Er Tab) 500 mg PO BID ELDER Stop: 09/29/22 21:06 Last Admin: 09/01/22 08:40 Dose: 500 mg Travoprost (Travoprost Z 0.004% Oph Soln 2.5 Ml Btl) 1 drops OP QPM ELDER Stop: 09/29/22 21:06 Last Admin: 08/31/22 20:22 Dose: 1 drops
[2022-09-01] MEDS ORDERED: VANCOMYCIN CONSULT ACTIVE ONE (12:24)
--- NOTE | 2022-09-01 12:40 | Pharmacy Report ---
Pharmacy PK ABX Note - Date of Service September 01, 2022 - Assessment and Plan Assessment 76 year old M receiving Vancomcyin and Ceftriaxone for treatment of bacteremia. * PMHx significant for RA on Rinvoq, resident of personal [facility], and previous right knee septic arthritis in 03/2022. * Febrile, tachycardic, and hypoxic in ED. Complaining of difficulty breathing. * Lactate 2.9, improved to 1.3. Procal 0.06. PCR positive for parainfluenza 3. * Strep pneumoniae growing in anaerobic bottle from 1 of 2 sets of blood cultures from admission. * ID consulted and recommend ceftriaxone plus vancomycin until sensitivities come back. Plan Vancomycin * Loading dose: 2000 mg IV x 1 * Maintenance dose: 1000 mg IV every 12 hours * Regimen is predicted to achieve target AUC/KARL of 400-600 mg/L.hr * Random level ordered for: 09/03/22 Pharmacy will continue to follow and will adjust dose/frequency as necessary. Thank you. Pharmacy has transitioned to AUC monitoring for vancomycin. AUC/KARL is the preferred PK/PD target and is associated with decreased risk of nephrotoxicity compared to traditional trough targets.
--- NOTE | 2022-09-01 13:46 | Hospitalist Progress Note ---
Date of Service September 01, 2022 Assessment & Plan (1) Respiratory failure with hypoxia: Plan: -The patient is currently afebrile, and currently stable on 2L NC -The patient has been having 4 days of progressive cough with yellow sputum, fevers, and was found to be hypoxic on RA -chest xray was read as possible RLL pneumonia, he was also found to he parainfluenza positive. While he is without a leukocytosis and his procal is negative, he is currently on Rinvoq for RA, this puts him at a significantly increased risk of serious infections Immunocompromised due to being on Rinvoq -Continue incentive spirometry, flutter therapy, QID DuoNebs, scheduled robitussin, and prn O2 to keep SpO2 at or greater than 95% -Blood cultures growing strep pneumo -Will hold Rinvoq for now until his infection has resolved Switch Unasyn to vancomycin (to cover in case strep pneumo is resistant) and ceftriaxone. Discontinue azithromycin -AM CBC, BMP, Mag (2) Pneumonia: Plan: Patient presented with productive cough, fever, hypoxia Chest x-ray showed right lower lobe pneumonia Blood culture growing Streptococcus pneumoniae Ordered sputum culture, pending Pneumonia seems to be the most likely source of bacteremia Started on vancomycin and ceftriaxone (3) Bacteremia due to Streptococcus pneumoniae: Plan: Blood culture growing strep pneumo Most likely from pneumonia. Knee does not look infected. Order sputum culture 2D echo did not show any valvular vegetation Infectious disease consulted, appreciate input Currently the patient is on ceftriaxone and vancomycin (in case pneumococcus is resistant) (4) Acute kidney injury: Plan: Resolved with hydration Discontinue IV fluids Monitor BMP Avoid nephrotoxic medications (5) Elevated troponin: Plan: Initial high sen trop elevated at 31, next troponins went up to 100s range -The patient is asymptomatic and without acute ECG changes -Likely due to demand from his hypoxia on arrival Echocardiogram showed no wall motion abnormalities Patient recently had a dobutamine stress echocardiogram done 08/21, pending results (6) Hypomagnesemia: Plan: -Repleted (7) Right leg swelling: Plan: RLE with a minimal amount of swelling compared to the left, the patient states that the RLE has been more swollen since his hospitalization in [place] -Venous duplex ultrasound of right lower extremity ruled out DVT -The patient is on Elqiuis (8) Benign essential hypertension: Plan: Was initially found to be hypertensive at 195/118, resolved without intervention, currently hemodynamically stable -Patient confirmed he did not have his medications today -Blood pressure was on the low side, lisinopril was held due to soft blood pressure readings as well as acute kidney injury Continue Imdur with holding parameters May resume lisinopril once blood pressure starts creeping up and kidney function remains stable (9) Heart failure with preserved ejection fraction: Plan: LVEF WNL as of his last echo in Jul of this year LVEF 55 to 60% on echocardiogram done 08/31 -Currently euvolemic on exam -Continue Imdur with holding parameters and monitor volume status (10) Coronary artery disease: Plan: -Continue aspirin and statin (11) Atrial fibrillation: Plan: Stable -Continue Amiodarone and Eliquis -Per the last cardiology note by Dr. Cardenas on 08/20, the patient's dose of Eliquis had previously been reduced from 5 mg BID to 2.5 mg BID for a possible GI which has resolved. He recommended increasing his dose back to 5 mg PO BID, will increase his dose back to 5 mg PO BID, monitor for signs of bleeding (12) Rheumatoid arthritis: Plan: -Typically on Rivoq, hold for acute infection (13) Anxiety and depression: Plan: Continue Duloxetine (14) GERD (gastroesophageal reflux disease): Plan: Normally takes 40 mg Nexium HS -Will switch to 40 mg PO Pantoprazole daily while admitted (15) Fungal infection of foot: Plan: Patient noted to have erythema and white crusting on and between the toes of the right foot, consistent with a fungal infection -Will start BID topical Clotrimazole for now, continue to monitor for improvement Admission and Anticipated Discharge Date Admission Date: August 30, 2022 Subjective Patient says that he has been coughing all night. Did not sleep and is very tired today. Review of Systems Review of Systems: All systems reviewed & are unremarkable except as noted in Subjective Physical Exam Physical Exam: General: Awake, conversant. Productive cough noted Heart: S1, S2/regular rate and rhythm, no murmur rubs or gallops Lungs: Prominent right lower lung crackles. Few left lower lung crackles were also heard. Normal effort Abdomen: Soft/nontender/nondistended. No hepatosplenomegaly Extremities: No clubbing/cyanosis. No edema Behavior: Appropriate, cooperative Results & Data Results & Data Vital Signs (Past 12 Hours) Vital Signs Temp Pulse Pulse Resp BP Pulse Ox O2 Del Method 09/01/22 12:29 36.9 C 75 19 134/75 95 Nasal Cannula 09/01/22 11:40 72 20 95 Nasal Cannula 09/01/22 08:00 Nasal Cannula 09/01/22 08:07 36.9 C 79 17 139/76 95 Nasal Cannula 09/01/22 07:00 70 09/01/22 07:21 81 20 95 Nasal Cannula 09/01/22 03:13 36.7 C 73 20 111/79 95 Nasal Cannula O2 Flow Rate 09/01/22 12:29 2 09/01/22 11:40 2 09/01/22 08:00 2 09/01/22 08:07 2 09/01/22 07:00 09/01/22 07:21 09/01/22 03:13 2 Laboratory Results Abnormal lab results 09/01/22 09/01/22 Range/Units 06:17 06:17 RBC 3.45 L (4.70-6.10) M/uL Hgb 10.7 L (14.0-18.0) g/dl Hct 31.7 L (42.0-52.0) % RDW Std Deviation 57.1 H (36.4-46.3) fL RDW Coeff of Sammie 16.8 H (11.5-14.5) % Neut # (Auto) 7.60 H (1.40-6.50) K/uL Lymph # (Auto) 0.57 L (1.2-3.4) K/uL [place] # (Auto) 0.81 H (0.11-0.59) K/uL Calcium 8.0 L (8.6-10.3) mg/dl PG Care Time/CCT Total # of Minutes Spent Total Time Spent with Patient: Total time spent is greater than 50% in coordination of care (as documented) at patient's floor/unit and/or counseling patient: Coding Level of Care Code 69482 SUB INP/OBS CARE 2/35MIN Diagnoses Respiratory failure with hypoxia J96.91 Pneumonia J18.9 Laterality: right Lung location: lower lobe of lung Pneumonia type: due to unspecified organism Bacteremia due to Streptococcus pneumoniae R78.81; B95.3 Acute kidney injury N17.9 Elevated troponin R77.8 Hypomagnesemia E83.42 Right leg swelling M79.89 Benign essential hypertension I10 Heart failure with preserved ejection fraction I50.30 Coronary artery disease I25.10 Atrial fibrillation I48.91 Rheumatoid arthritis M06.9 Anxiety and depression F41.9; F32.A GERD (gastroesophageal reflux disease) K21.9 Fungal infection of foot B35.3 (2) Pneumonia Laterality: right Lung location: lower lobe of lung Pneumonia type: due to unspecified organism Qualified Code(s): J18.9 - Pneumonia, unspecified organism
[2022-09-01] MEDS: ACETAMINOPHEN 325 MG TAB PO PRN ×2 (15:33→21:51)
[2022-09-01] MEDS: TRAVOPROST Z 0.004% OPH SOLN 2.5 ML BTL OP SCH (20:54)
[2022-09-01] MEDS: MELATONIN 3 MG TAB PO SCH (20:56)
[2022-09-01] MEDS: PRAVASTATIN SOD 40 MG TAB PO SCH (20:56)
[2022-09-01] MEDS: VANCOMYCIN HCL 1,000 MG in SODIUM CHLORIDE 0.9% 250 ML IV SCH (21:10)
[2022-09-02] MEDS: guaiFENesin SUGAR FREE 200 MG/10 ML UDC PO SCH ×4 (03:12→21:00)
[2022-09-02] MEDS: oxyCODONE HCL IR 5 MG TAB (IMMEDIATE RELEASE) PO PRN ×2 (03:15→20:41)
[2022-09-02] MEDS: COUGH DROP (SUGAR FREE) LOZ 24 LOZ/1 BOX BUCCAL PRN ×2 (03:16→08:27)
[2022-09-02 06:47] LABS: Basophils # (auto) 0.02 K/uL (0-0.2); Basophils % (auto) 0.3 %; Eosinophils # (auto) 0.12 K/uL (0-0.50); Eosinophils % (auto) 1.6 %; Hematocrit (blood only) 31.5 % (42.0-52.0); Hemoglobin 10.5 g/dl (14.0-18.0); Immature Granulocytes # (auto) 0.04 K/uL (0.01-0.20); Immature Granulocytes % (auto) 0.5 %; Lymphocytes # (auto) 0.54 K/uL (1.2-3.4); Mean Corpuscular Hemoglobin 30.7 pg (25.0-34.0); Mean Corpuscular Hgb Conc 33.3 g/dL (32.0-36.0); Mean Corpuscular Volume 92.1 fL (80.0-100.0); Mean Platelet Volume 9.8 fL (9.4-12.4); Monocytes # (auto) 0.66 K/uL (0.11-0.59); Monocytes % (auto) 8.5 %; Neutrophils # (auto) 6.34 K/uL (1.40-6.50); Neutrophils % (auto) 82.1 %; Platelet Count 190 K/uL (130-400); RDW Coefficient of Variation 16.4 % (11.5-14.5); RDW Standard Deviation 55.3 fL (36.4-46.3); Red Blood Count 3.42 M/uL (4.70-6.10); White Blood Count 7.72 K/ul (4.8-10.8)
[2022-09-02 07:10] LABS: BUN Creatinine Ratio 16.5 (10-20); Calcium 8.5 mg/dl (8.6-10.3); Creatinine Clr Calc Pharmacy 83.7 ml/min; Est GFR (African American) 93.2 ml/min; Est GFR (Non-African American) 80.4 ml/min; Magnesium 1.8 mg/dl (1.7-2.4); Potassium 3.9 mmol/L (3.5-5.1)
[2022-09-02] MEDS: ALBUT/IPRATROP 3MG/0.5MG NEB 3 ML VIAL NEB SCH ×4 (07:30→19:40)
[2022-09-02] MEDS: CLOTRIMAZOLE 1% CR 15 GM TUBE EXT SCH ×2 (08:26→22:50)
[2022-09-02] MEDS: APIXABAN 5 MG TABLET PO SCH ×2 (08:26→21:00)
[2022-09-02] MEDS: DULoxetine HCL 60 MG CAP PO SCH (08:26)
[2022-09-02] MEDS: BENZONATATE 100 MG CAPSULE PO PRN (08:26)
[2022-09-02] MEDS: ISOSORBIDE MONO EXTENDED REL 60 MG TABCR PO SCH (08:26)
[2022-09-02] MEDS: ASPIRIN 81 MG ECTAB PO SCH (08:27)
[2022-09-02] MEDS: AMIODARONE 200 MG TAB PO SCH (08:27)
[2022-09-02] MEDS: PANTOprazole 40 MG TAB PO SCH (08:27)
[2022-09-02] MEDS: GABAPENTIN 100 MG CAP PO SCH ×3 (08:27→21:00)
[2022-09-02] MEDS: RANOLAZINE 500 MG ER TAB PO SCH ×2 (08:27→21:00)
[2022-09-02] MEDS: VANCOMYCIN HCL 1,000 MG in SODIUM CHLORIDE 0.9% 250 ML IV SCH ×2 (09:40→20:59)
[2022-09-02] MEDS: cefTRIAXone SODIUM 2,000 MG in DEXTROSE 5% 50 ML IV SCH (09:41)
--- NOTE | 2022-09-02 11:26 | Hospitalist Progress Note ---
Date of Service September 02, 2022 Assessment & Plan (1) Respiratory failure with hypoxia: Plan: 2nd to parainfluenza infection + probable RLL strep pneumoniae infection improved now off O2 cont nebs cont IV abx cont supportive care + pulmonary toilet (2) Pneumonia: Plan: RLL Likely 2nd to strep pneumoniae as this grew in his blood cx's bacterial pneumonia likely preceded by parainfluenza infection clinically improving but remains without any appetite will repeat a 2-view cxr today for severe night-time cough schedule hycodan 5cc HS also schedule tessalon pearles 200mg TID cont nebs (3) Bacteremia due to Streptococcus pneumoniae: Plan: 06/11 bottles + for such from admission appreciate ID consultation echo without valvular vegetations remains on IV ceftriaxone and vancomycin (in the event pneumococcus is resistant) if sensitivities show no resistance then d/c vanco repeat blood cx's dispatched today to ensure test of cure (4) Acute kidney injury: Plan: 2nd to #2, #3 - resolved (5) Elevated troponin: Plan: likely myocardial demand ischemia in the setting of his pneumonia & bacteremia no evidence of ACS (6) Hypomagnesemia: Plan: repleted resolved (7) Right leg swelling: Plan: doppler negative for DVT (8) Benign essential hypertension: Plan: remains on imdur lisinopril on hold - resume tomorrow (9) Heart failure with preserved ejection fraction: Plan: compensated LVEF 55 to 60% on echocardiogram done 08/31/22 No valvular vegetations (10) Coronary artery disease: Plan: continue aspirin and statin continue imdur continue ranexa no ischemic symptoms at this time (11) Atrial fibrillation: Plan: Continue Amiodarone and Eliquis remains in NSR (12) Rheumatoid arthritis: Plan: Typically on Rivoq chronically (13) Anxiety and depression: Plan: Continue Duloxetine (14) GERD (gastroesophageal reflux disease): Plan: cont PPI (15) Fungal infection of foot: Plan: BID topical Clotrimazole (16) Constipation: Plan: add senna + miralax Plan ?thrush - add nystatin 5cc qid swish/spit PT, OT jony son updated by phone this evening Admission and Anticipated Discharge Date Admission Date: August 30, 2022 Subjective patient states his cough remains severe it is quite bothersome, and he is not sleeping due to the cough he is very tired, has poor appetite, and energy is poor he c/o sore throat his ears hurt he has not had a BM in several days he is supposed to have his right knee replaced in the next 1-2 weeks and asks if this is feasible tele overnight - NSR Review of Systems Review of Systems: gen - no fevers or chills cv - no chest pain pulm - mild ARANDA but no dyspnea at rest GI - no abd pain; no diarrhea Physical Exam Physical Exam: gen - NAD, comfortable mouth - erythematous throat neck - no JVD heart - RRR, s1 s2 lungs - mild end-exp wheeze b/l, a little worse on left; mild R basilar rales abd - soft NT ND BS+ ext - <1+ edema b/l, pulses 2+ b/l psych - a/o x 3 Results & Data Results & Data Vital Signs (Past 12 Hours) Vital Signs Temp Pulse Pulse Resp BP Pulse Ox O2 Del Method 09/02/22 10:43 78 18 91 Room Air 09/02/22 08:00 Nasal Cannula 09/02/22 08:51 75 20 93 Room Air 09/02/22 07:00 71 09/02/22 04:43 37.3 C 81 18 141/88 H 96 Nasal Cannula 09/01/22 23:41 37.2 C 77 18 137/73 91 Nasal Cannula O2 Flow Rate 09/02/22 10:43 09/02/22 08:00 2 09/02/22 08:51 09/02/22 07:00 09/02/22 04:43 2 09/01/22 23:41 2 Laboratory Results Laboratory Results - last 24 hr 09/02/22 09/02/22 06:09 06:09 WBC 7.72 RBC 3.42 L Hgb 10.5 L Hct 31.5 L MCV 92.1 MCH 30.7 MCHC 33.3 RDW Std Deviation 55.3 H RDW Coeff of Sammie 16.4 H Plt Count 190 MPV 9.8 Immature Gran % (Auto) 0.5 Neut % (Auto) 82.1 Lymph % (Auto) 7.0 [place] % (Auto) 8.5 Eos % (Auto) 1.6 Baso % (Auto) 0.3 Neut # (Auto) 6.34 Lymph # (Auto) 0.54 L [place] # (Auto) 0.66 H Eos # (Auto) 0.12 Baso # (Auto) 0.02 Immature Gran # (Auto) 0.04 Sodium 138 Potassium 3.9 Chloride 106 Carbon Dioxide 25 Anion Gap 7 BUN 15 Creatinine 0.91 Est Cr Clr Drug Dosing 83.7 Est GFR ( Amer) 93.2 Est GFR (Non-Af Amer) 80.4 BUN/Creatinine Ratio 16.5 Glucose 82 Calcium 8.5 L Magnesium 1.8 PG Care Time/CCT Total # of Minutes Spent Total Time Spent with Patient: Total time spent is greater than 50% in coordination of care (as documented) at patient's floor/unit and/or counseling patient: Coding Level of Care Code 94565 SUB INP/OBS CARE 3/50MIN Diagnoses Respiratory failure with hypoxia J96.91 Pneumonia J18.9 Laterality: right Lung location: lower lobe of lung Pneumonia type: due to unspecified organism Bacteremia due to Streptococcus pneumoniae R78.81; B95.3 Acute kidney injury N17.9 Elevated troponin R77.8 Hypomagnesemia E83.42 Right leg swelling M79.89 Benign essential hypertension I10 Heart failure with preserved ejection fraction I50.30 Coronary artery disease I25.10 Atrial fibrillation I48.91 Rheumatoid arthritis M06.9 Anxiety and depression F41.9; F32.A GERD (gastroesophageal reflux disease) K21.9 Fungal infection of foot B35.3 Constipation K59.00 (2) Pneumonia Laterality: right Lung location: lower lobe of lung Pneumonia type: due to unspecified organism Qualified Code(s): J18.9 - Pneumonia, unspecified organism
[2022-09-02] MEDS: NYSTATIN SUSP 500,000 U/5 ML UDC PO SCH ×3 (12:35→21:00)
[2022-09-02] MEDS: POLYETHYLENE (MIRALAX) 17 GM PACK PO SCH (12:35)
[2022-09-02] MEDS: ADVANCED PROBIOTIC 1250 MG CAPSULE PO SCH (12:35)
[2022-09-02] MEDS: SENNA 8.6 MG TAB PO SCH (12:36)
[2022-09-02] MEDS: BENZONATATE 100 MG CAPSULE PO SCH ×2 (12:36→21:00)
--- NOTE | 2022-09-02 13:56 | XRay Report ---
XR chest 2V PA/lateral HISTORY: 76 years-old Male RLL pneumonia, bronchitis, interval change COMPARISON: 08/30/2022 TECHNIQUE: PA and lateral views of the chest FINDINGS: Cardiac silhouette is enlarged. Calcified mediastinal/hilar lymph nodes. No pneumothorax, large pleur al effusion, new airspace consolidation or overt pulmonary edema. Mild blunting of the costophrenic a ngles. Improved aeration of the lungs with mild residual subsegmental bibasilar densities. Degenerati ve changes of the shoulders and spine. IMPRESSION: 1. Mildly improved aeration of the lungs with persistent bibasilar opacities suggestive of atelectasi s versus resolving pneumonitis. 2. Equivocal trace pleural effusions. ACT 112: Negative or not required by law. The above report was generated using voice recognition software. It may contain grammatical, syntax o r spelling errors. Electronically signed by: Geo Clayton M.D. 09/02/2022 1:54 PM
[2022-09-02] MEDS: PRAVASTATIN SOD 40 MG TAB PO SCH (21:00)
[2022-09-02] MEDS: TRAVOPROST Z 0.004% OPH SOLN 2.5 ML BTL OP SCH (21:00)
[2022-09-02] MEDS: HYDROcodone/HOMATROPINE SYRUP 5MG/1.5MG 5ML UDP PO SCH (21:00)
[2022-09-02] MEDS: MELATONIN 3 MG TAB PO SCH (22:40)
[2022-09-03] MEDS: guaiFENesin SUGAR FREE 200 MG/10 ML UDC PO SCH ×4 (02:35→20:16)
[2022-09-03] MEDS: ALBUT/IPRATROP 3MG/0.5MG NEB 3 ML VIAL NEB SCH ×4 (07:04→19:08)
[2022-09-03] MEDS ORDERED: VANCOMYCIN LEVEL ONE (07:30)
[2022-09-03 07:40] LABS: BUN Creatinine Ratio 14.6 (10-20); Creatinine Clr Calc Pharmacy 85.6 ml/min; Est GFR (African American) 94.9 ml/min; Est GFR (Non-African American) 81.9 ml/min; Potassium 3.9 mmol/L (3.5-5.1)
[2022-09-03] MEDS: cefTRIAXone SODIUM 2,000 MG in DEXTROSE 5% 50 ML IV SCH (09:33)
[2022-09-03] MEDS: AMIODARONE 200 MG TAB PO SCH (09:34)
[2022-09-03] MEDS: ASPIRIN 81 MG ECTAB PO SCH (09:34)
[2022-09-03] MEDS: APIXABAN 5 MG TABLET PO SCH ×2 (09:35→20:16)
[2022-09-03] MEDS: ISOSORBIDE MONO EXTENDED REL 60 MG TABCR PO SCH (09:35)
[2022-09-03] MEDS: lisinopril 10 MG TAB PO SCH (09:36)
[2022-09-03] MEDS: GABAPENTIN 100 MG CAP PO SCH ×3 (09:36→20:16)
[2022-09-03] MEDS: ADVANCED PROBIOTIC 1250 MG CAPSULE PO SCH (09:36)
[2022-09-03] MEDS: PANTOprazole 40 MG TAB PO SCH (09:36)
[2022-09-03] MEDS: SENNA 8.6 MG TAB PO SCH (09:36)
[2022-09-03] MEDS: CLOTRIMAZOLE 1% CR 15 GM TUBE EXT SCH ×2 (09:37→20:17)
[2022-09-03] MEDS: BENZONATATE 100 MG CAPSULE PO SCH ×3 (09:37→20:16)
[2022-09-03] MEDS: DULoxetine HCL 60 MG CAP PO SCH (09:38)
[2022-09-03] MEDS: POLYETHYLENE (MIRALAX) 17 GM PACK PO SCH (09:39)
[2022-09-03] MEDS: NYSTATIN SUSP 500,000 U/5 ML UDC PO SCH ×4 (09:39→20:16)
[2022-09-03] MEDS: RANOLAZINE 500 MG ER TAB PO SCH ×2 (09:39→20:15)
[2022-09-03] MEDS: ACETAMINOPHEN 325 MG TAB PO PRN (09:47)
[2022-09-03] MEDS: VANCOMYCIN HCL 1,000 MG in SODIUM CHLORIDE 0.9% 250 ML IV SCH (09:53)
[2022-09-03] MEDS: METOPROLOL TARTRATE 25 MG TAB PO SCH ×2 (10:20→20:17)
[2022-09-03] MEDS ORDERED: bisacodyL 10 MG SUPP PR PRN (16:04)
[2022-09-03] MEDS: dexAMETHasone 6 MG in SYRINGE 0 ML IV SCH (16:34)
[2022-09-03] MEDS: HYDROcodone/HOMATROPINE SYRUP 5MG/1.5MG 5ML UDP PO SCH (20:16)
[2022-09-03] MEDS: TRAVOPROST Z 0.004% OPH SOLN 2.5 ML BTL OP SCH (20:16)
[2022-09-03] MEDS: PRAVASTATIN SOD 40 MG TAB PO SCH (20:16)
[2022-09-03] MEDS: oxyCODONE HCL IR 5 MG TAB (IMMEDIATE RELEASE) PO PRN (20:18)
[2022-09-03] MEDS: MELATONIN 3 MG TAB PO SCH (20:20)
--- NOTE | 2022-09-03 20:23 | Hospitalist Progress Note ---
Date of Service September 03, 2022 Assessment & Plan (1) Respiratory failure with hypoxia: Plan: 2nd to parainfluenza infection + probable RLL strep pneumoniae infection improved off O2 cont nebs cont IV abx cont supportive care + pulmonary toilet (2) Pneumonia: Plan: RLL Likely 2nd to strep pneumoniae as this grew in his blood cx's bacterial pneumonia likely preceded by parainfluenza infection 2-view cxr 09/02 with improed infiltrates for severe night-time cough cont scheduled hycodan 5cc HS cont scheduled tessalon pearles 200mg TID cont nebs for ongoing reactive wheezing/bronchitis component add dexamethasone 6mg IV daily (3) Bacteremia due to Streptococcus pneumoniae: Plan: 06/11 bottles + for such from admission appreciate ID consultation echo without valvular vegetations remains on IV ceftriaxone sensitivities show no resistance to rocephin thus D/C vanco today repeat blood cx's 09/02 thus far negative change to PO cefdinir or similar later in stay? defer to ID (4) Acute kidney injury: Plan: 2nd to #2, #3 - resolved (5) Elevated troponin: Plan: likely myocardial demand ischemia in the setting of his pneumonia & bacteremia no evidence of ACS (6) Hypomagnesemia: Plan: repleted resolved (7) Right leg swelling: Plan: doppler negative for DVT resume PO lasix in am (8) Benign essential hypertension: Plan: remains on imdur remains on MARITZA added metoprolol 12.5mg BID and tolerating such (9) Heart failure with preserved ejection fraction: Plan: compensated LVEF 55 to 60% on echocardiogram done 08/31/22 No valvular vegetations (10) Coronary artery disease: Plan: continue aspirin and statin continue imdur continue ranexa no ischemic symptoms at this time added low-dose BB metoprolol 12.5mg BID (11) Atrial fibrillation: Plan: Continue Amiodarone and Eliquis remains in NSR Metoprolol 12.5mg BID (12) Rheumatoid arthritis: Plan: Typically on Rivoq chronically Dexamethasone for resp issues will help joints (13) Anxiety and depression: Plan: Continue Duloxetine (14) GERD (gastroesophageal reflux disease): Plan: cont PPI (15) Fungal infection of foot: Plan: BID topical Clotrimazole (16) Constipation: Plan: cont senna + miralax add dulcolax suppos prn Plan ?thrush - added nystatin 5cc qid swish/spit sore throat, however, may simply be due to his parainfluenza infection PT, OT jony - [facility]/02 Admission and Anticipated Discharge Date Admission Date: August 30, 2022 Subjective despite scheduled hycodan at HS last pm he still had severe cough through the night preventing him from sleeping he remains weak & tired appetite remains poor still no bowel movement ears still are bothering him sore throat remains no new complaints tele overnight wnl Review of Systems Review of Systems: gen - no fevers cv - no chest pain; mild edema legs pulm - mild ARANDA GI - no abd pain or vomiting; no diarrhea Physical Exam Physical Exam: gen - NAD, sitting in the chair, severe bronchial cough mouth - erythematous throat - mild; no obvious thrush neck - no JVD heart - RRR, s1 s2, no murmur lungs - end-exp wheezes b/l, occasional rales on right abd - soft NT ND BS+ ext - 1+ edema right leg; <1+ left leg; pulses 2+ b/l psych - a/o x 3 Results & Data Results & Data Vital Signs (Past 12 Hours) Vital Signs Temp Pulse Pulse Resp BP Pulse Ox O2 Del Method 09/03/22 18:59 36.6 C 74 18 149/91 H 93 Room Air 09/03/22 15:36 68 18 91 Room Air 09/03/22 14:22 71 09/03/22 15:20 36.9 C 64 20 136/79 92 Room Air 09/03/22 11:00 Room Air 09/03/22 12:50 36.6 C 68 18 126/76 93 Room Air 09/03/22 10:59 76 16 92 Room Air Laboratory Results Laboratory Results - last 24 hr 08/30/22 09/03/22 09/03/22 15:54 06:26 06:26 Sodium 138 Potassium 3.9 Chloride 104 Carbon Dioxide 26 Anion Gap 8 BUN 13 Creatinine 0.89 Est Cr Clr Drug Dosing 85.6 Est GFR ( Amer) 94.9 Est GFR (Non-Af Amer) 81.9 BUN/Creatinine Ratio 14.6 Glucose 85 Calcium 9.0 Random Vancomycin 11.9 Streptococcus sp PCR DETECTED A Strep pneumoniae (PCR) DETECTED A Bld Cult ID Panel PCR See PCR Comment PG Care Time/CCT Total # of Minutes Spent Total Time Spent with Patient: Total time spent is greater than 50% in coordination of care (as documented) at patient's floor/unit and/or counseling patient: Coding Level of Care Code 88263 SUB INP/OBS CARE 3/50MIN Diagnoses Respiratory failure with hypoxia J96.91 Pneumonia J18.9 Laterality: right Lung location: lower lobe of lung Pneumonia type: due to unspecified organism Bacteremia due to Streptococcus pneumoniae R78.81; B95.3 Acute kidney injury N17.9 Elevated troponin R77.8 Hypomagnesemia E83.42 Right leg swelling M79.89 Benign essential hypertension I10 Heart failure with preserved ejection fraction I50.30 Coronary artery disease I25.10 Atrial fibrillation I48.91 Rheumatoid arthritis M06.9 Anxiety and depression F41.9; F32.A GERD (gastroesophageal reflux disease) K21.9 Fungal infection of foot B35.3 Constipation K59.00 (2) Pneumonia Laterality: right Lung location: lower lobe of lung Pneumonia type: due to unspecified organism Qualified Code(s): J18.9 - Pneumonia, unspecified organism
[2022-09-04] MEDS: guaiFENesin SUGAR FREE 200 MG/10 ML UDC PO SCH ×4 (04:30→20:12)
[2022-09-04 06:46] LABS: BUN Creatinine Ratio 18.9 (10-20); Creatinine Clr Calc Pharmacy 84.3 ml/min; Est GFR (African American) 94.5 ml/min; Est GFR (Non-African American) 81.5 ml/min; Potassium 4.5 mmol/L (3.5-5.1)
[2022-09-04] MEDS: ALBUT/IPRATROP 3MG/0.5MG NEB 3 ML VIAL NEB SCH ×4 (07:05→19:31)
[2022-09-04] MEDS: ADVANCED PROBIOTIC 1250 MG CAPSULE PO SCH (09:44)
[2022-09-04] MEDS: BENZONATATE 100 MG CAPSULE PO SCH ×3 (09:44→20:11)
[2022-09-04] MEDS: SENNA 8.6 MG TAB PO SCH (09:45)
[2022-09-04] MEDS: DULoxetine HCL 60 MG CAP PO SCH (09:45)
[2022-09-04] MEDS: AMIODARONE 200 MG TAB PO SCH (09:45)
[2022-09-04] MEDS: ASPIRIN 81 MG ECTAB PO SCH (09:45)
[2022-09-04] MEDS: FUROSEMIDE 20 MG TAB PO SCH (09:45)
[2022-09-04] MEDS: METOPROLOL TARTRATE 25 MG TAB PO SCH ×2 (09:46→20:12)
[2022-09-04] MEDS: APIXABAN 5 MG TABLET PO SCH ×2 (09:46→20:11)
[2022-09-04] MEDS: lisinopril 10 MG TAB PO SCH (09:47)
[2022-09-04] MEDS: GABAPENTIN 100 MG CAP PO SCH ×3 (09:47→20:12)
[2022-09-04] MEDS: PANTOprazole 40 MG TAB PO SCH (09:47)
[2022-09-04] MEDS: ISOSORBIDE MONO EXTENDED REL 60 MG TABCR PO SCH (09:49)
[2022-09-04] MEDS: NYSTATIN SUSP 500,000 U/5 ML UDC PO SCH ×4 (09:50→20:12)
[2022-09-04] MEDS: RANOLAZINE 500 MG ER TAB PO SCH ×2 (09:50→20:13)
[2022-09-04] MEDS: cefTRIAXone SODIUM 2,000 MG in DEXTROSE 5% 50 ML IV SCH (09:52)
[2022-09-04] MEDS: CLOTRIMAZOLE 1% CR 15 GM TUBE EXT SCH ×2 (09:57→20:14)
[2022-09-04] MEDS: POLYETHYLENE (MIRALAX) 17 GM PACK PO SCH (09:57)
[2022-09-04] MEDS: HYDROcodone/HOMATROPINE SYRUP 5MG/1.5MG 5ML UDP PO PRN (10:39)
--- NOTE | 2022-09-04 12:54 | Infectious Disease Progress Nt ---
Date of Service September 04, 2022 Assessment & Plan (1) Bacteremia due to Streptococcus pneumoniae: Plan: #strep pneumo bacteremia -secondary to PNA -immunocompromised, on rinvoq for RA- currently held -Patient has been on ceftriaxone -08/31 nasal MRSA screen is negative. 08/30 respiratory viral panel detected parainfluenza 3. 08/30 blood cultures with strep pneumoniae in 1 of 2 sets. 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 Will sign off at this time, Please page with any questions. Kerry Machado M.D. [facility] [employer] Pager [phone] Admission and Anticipated Discharge Date Admission Date: August 30, 2022 Subjective This patient recommendation is based on a telemedicine consult request which was completed asynchronously through chart review and information provided by the primary physician. The patient was not seen or examined today. The evaluation is consultative in nature and all patient care and treatment decisions can either be accepted or rejected by the patient's primary hospital-based treating physician using their own independent medical judgment for their patient. Time Spent Reviewing Chart: 21 - 30 minutes Pt has been afebrile Based on S. pneumo sensis, abx narrowed to CTX Repeat Bcxs are NGTD CXR improved Results & Data Vital Signs (Past 12 Hours) Vital Signs Temp Pulse Pulse Resp BP Pulse Ox O2 Del Method 09/04/22 11:31 37.0 C 70 16 143/83 H 92 Room Air 09/04/22 07:30 Room Air 09/04/22 11:10 71 16 91 Room Air 09/04/22 10:56 75 09/04/22 08:21 37.1 C 76 20 167/89 H 92 Room Air 09/04/22 07:05 75 16 91 Room Air 09/04/22 03:33 37.1 C 70 20 112/80 93 Room Air 09/04/22 01:31 71 Laboratory Results 09/02/22 10:13 Aerobic Blood Culture - Preliminary Blood No growth in Aerobic bottle after 48 hours. Anaerobic Blood Culture - Preliminary No growth in Anaerobic bottle after 48 hours. 09/02/22 10:09 Aerobic Blood Culture - Preliminary Blood No growth in Aerobic bottle after 48 hours. Anaerobic Blood Culture - Preliminary No growth in Anaerobic bottle after 48 hours. 09/04/22 06:00 Sodium 137 Potassium 4.5 Chloride 102 Carbon Dioxide 27 Anion Gap 8 BUN 17 Creatinine 0.90 Est Cr Clr Drug Dosing 84.3 Est GFR ( Amer) 94.5 Est GFR (Non-Af Amer) 81.5 BUN/Creatinine Ratio 18.9 Glucose 139 H Calcium 9.0 Diagnostic Findings Chest X-Ray 09/02/22 11:47 XR chest 2V PA/lateral HISTORY: 76 years-old Male RLL pneumonia, bronchitis, interval change COMPARISON: 08/30/2022 TECHNIQUE: PA and lateral views of the chest FINDINGS: Cardiac silhouette is enlarged. Calcified mediastinal/hilar lymph nodes. No pneumothorax, large pleural effusion, new airspace consolidation or overt pulmonary edema. Mild blunting of the costophrenic angles. Improved aeration of the lungs with mild residual subsegmental bibasilar densities. Degenerative changes of the shoulders and spine. IMPRESSION: 1. Mildly improved aeration of the lungs with persistent bibasilar opacities suggestive of atelectasis versus resolving pneumonitis. 2. Equivocal trace pleural effusions. ACT 112: Negative or not required by law. The above report was generated using voice recognition software. It may contain grammatical, syntax or spelling errors. Electronically signed by: Geo Clayton M.D. 09/02/2022 1:54 PM Medications Administered Current Medications Acetaminophen (Acetaminophen 325 Mg Tab) 650 mg PO Q6H PRN PRN Reason: paiun (1,2,3), fever, headache Stop: 09/29/22 18:44 Last Admin: 09/03/22 09:47 Dose: 650 mg Albuterol (Albut/Ipratrop 3mg/0.5mg Neb 3 Ml Vial) 3 ml NEB QIDR ELDER; Protocol Stop: 09/29/22 18:59 Last Admin: 09/04/22 11:10 Dose: 3 ml Amiodarone HCl (Amiodarone 200 Mg Tab) 200 mg PO QAM [facility] Stop: 09/30/22 08:59 Last Admin: 09/04/22 09:45 Dose: 200 mg Apixaban (Apixaban 5 Mg Tablet) 5 mg PO BID [facility] Stop: 09/29/22 21:06 Last Admin: 09/04/22 09:46 Dose: 5 mg Aspirin (Aspirin 81 Mg Ectab) 81 mg PO QAM [facility] Stop: 09/30/22 08:59 Last Admin: 09/04/22 09:45 Dose: 81 mg Benzonatate (Benzonatate 100 Mg Capsule) 200 mg PO TID [facility] Stop: 10/02/22 13:59 Last Admin: 09/04/22 09:44 Dose: 200 mg Bisacodyl (Bisacodyl 10 Mg Supp) 10 mg WA DAILY PRN PRN Reason: Constipation Stop: 10/03/22 16:03 Clotrimazole (Clotrimazole 1% Cr 15 Gm Tube) 1 appln EXT BID [facility] Stop: 09/29/22 20:59 Last Admin: 09/04/22 09:57 Dose: 1 appln Duloxetine HCl (Duloxetine Hcl 60 Mg Cap) 60 mg PO QAM [facility] Stop: 09/29/22 21:06 Last Admin: 09/04/22 09:45 Dose: 60 mg Furosemide (Furosemide 20 Mg Tab) 20 mg PO QAM [facility] Stop: 10/04/22 08:59 Last Admin: 09/04/22 09:45 Dose: 20 mg Gabapentin (Gabapentin 100 Mg Cap) 100 mg PO TID [facility] Stop: 09/29/22 21:06 Last Admin: 09/04/22 09:47 Dose: 100 mg Guaifenesin (Guaifenesin Sugar Free 200 Mg/10 Ml Udc) 200 mg PO Q6H [facility] Stop: 09/29/22 20:59 Last Admin: 09/04/22 09:47 Dose: 200 mg Hydrocodone Bit/Homatropine Methylb (Hydrocodone/Homatropine Syrup 5mg/1.5mg 5ml Udp) 5 ml PO HS [facility] Stop: 09/16/22 20:59 Last Admin: 09/03/22 20:16 Dose: 5 ml Hydrocodone Bit/Homatropine Methylb (Hydrocodone/Homatropine Syrup 5mg/1.5mg 5ml Udp) 5 ml PO Q8H PRN PRN Reason: Cough Stop: 09/17/22 16:03 Last Admin: 09/04/22 10:39 Dose: 5 ml Ceftriaxone Sodium 2,000 mg/ (Dextrose) 70 mls @ 100 mls/hr IV Q24H [facility]; Protocol Stop: 09/15/22 07:59 Last Infusion: 09/04/22 10:46 Dose: Infused Dexamethasone 6 mg/ Syringe 1.5 mls @ 1 mls/min IV Q24H [facility] Stop: 10/03/22 16:14 Last Admin: 09/03/22 16:34 Dose: 1 mls/min Isosorbide Mononitrate (Isosorbide [place] Extended Rel 60 Mg Tabcr) 60 mg PO QAM [facility] Stop: 09/30/22 08:59 Last Admin: 09/04/22 09:49 Dose: 60 mg Lactobacillus Acidophilus (Advanced Probiotic 1250 Mg Capsule) 2 cap PO DAILY [facility] Stop: 10/02/22 11:59 Last Admin: 09/04/22 09:44 Dose: 2 cap Lisinopril (Lisinopril 10 Mg Tab) 10 mg PO QAM [facility] Stop: 10/03/22 08:59 Last Admin: 09/04/22 09:47 Dose: 10 mg Melatonin (Melatonin 3 Mg Tab) 6 mg PO HS [facility] Stop: 09/30/22 20:59 Last Admin: 09/03/22 20:20 Dose: 6 mg Menthol (Cough Drop (Sugar Free) Wendy 24 Wendy/1 Box) 1 wendy BUCCAL Q1H PRN PRN Reason: Cough Stop: 09/30/22 03:53 Last Admin: 09/02/22 08:27 Dose: 1 wendy Metoprolol Tartrate (Metoprolol Tartrate 25 Mg Tab) 12.5 mg PO BID [facility] Stop: 10/03/22 08:59 Last Admin: 09/04/22 09:46 Dose: 12.5 mg Nystatin (Nystatin Susp 500,000 U/5 Ml Udc) 5 ml PO QID [facility] Stop: 09/12/22 12:59 Last Admin: 09/04/22 09:50 Dose: 5 ml Oxycodone HCl (Oxycodone Hcl Ir 5 Mg Tab (Immediate Release)) 5 mg PO QID PRN PRN Reason: pain (4,5,6+) Stop: 09/13/22 21:06 Last Admin: 09/03/22 20:18 Dose: 5 mg Pantoprazole Sodium (Pantoprazole 40 Mg Tab) 40 mg PO DAILY ELDER Stop: 09/30/22 08:59 Last Admin: 09/04/22 09:47 Dose: 40 mg Polyethylene Glycol (Polyethylene (Miralax) 17 Gm Pack) 17 gm PO DAILY ELDER Stop: 10/02/22 11:59 Last Admin: 09/04/22 09:57 Dose: 17 gm Pravastatin Sodium (Pravastatin Sod 40 Mg Tab) 40 mg PO HS ELDER Stop: 09/29/22 21:06 Last Admin: 09/03/22 20:16 Dose: 40 mg Ranolazine (Ranolazine 500 Mg Er Tab) 500 mg PO BID ELDER Stop: 09/29/22 21:06 Last Admin: 09/04/22 09:50 Dose: 500 mg Sennosides (Senna 8.6 Mg Tab) 17.2 mg PO QAM ELDER Stop: 10/02/22 11:59 Last Admin: 09/04/22 09:45 Dose: 17.2 mg Travoprost (Travoprost Z 0.004% Oph Soln 2.5 Ml Btl) 1 drops OP QPM ELDER Stop: 09/29/22 21:06 Last Admin: 09/03/22 20:16 Dose: 1 drops
[2022-09-04] MEDS: dexAMETHasone 6 MG in SYRINGE 0 ML IV SCH (15:58)
[2022-09-04] MEDS: oxyCODONE HCL IR 5 MG TAB (IMMEDIATE RELEASE) PO PRN (20:08)
[2022-09-04] MEDS: HYDROcodone/HOMATROPINE SYRUP 5MG/1.5MG 5ML UDP PO SCH (20:08)
[2022-09-04] MEDS: MELATONIN 3 MG TAB PO SCH (20:12)
[2022-09-04] MEDS: PRAVASTATIN SOD 40 MG TAB PO SCH (20:13)
[2022-09-04] MEDS: TRAVOPROST Z 0.004% OPH SOLN 2.5 ML BTL OP SCH (20:14)
--- NOTE | 2022-09-04 21:15 | Hospitalist Progress Note ---
Date of Service September 04, 2022 Assessment & Plan (1) Respiratory failure with hypoxia: Plan: 2nd to parainfluenza infection + probable RLL strep pneumoniae infection improving albeit slowly off O2 cont nebs cont IV abx cont steroids cont supportive care + pulmonary toilet (2) Pneumonia: Plan: RLL Likely 2nd to strep pneumoniae as this grew in his blood cx's bacterial pneumonia likely preceded by parainfluenza infection 2-view cxr 09/02 with improed infiltrates for severe night-time cough cont scheduled hycodan 5cc HS cont scheduled tessalon pearles 200mg TID cont nebs cont IV dexamethasone for reactive wheezing/bronchitis component (which is likely from the parainfluenza) likely wean to 4mg next 1-2 days (3) Bacteremia due to Streptococcus pneumoniae: Plan: 06/11 bottles + for such from admission appreciate ID consultation echo without valvular vegetations remains on IV ceftriaxone sensitivities show no resistance to rocephin thus D/C vanco repeat blood cx's 09/02 thus far negative appreciate ID consultation - at d/c can change rocephin to PO augmentin today is day # 6 of IV abx therapy plan 14 days in total (4) Acute kidney injury: Plan: 2nd to #2, #3 - resolved (5) Elevated troponin: Plan: likely myocardial demand ischemia in the setting of his pneumonia & bacteremia no evidence of ACS (6) Hypomagnesemia: Plan: repleted resolved (7) Right leg swelling: Plan: doppler negative for DVT resumed PO lasix today no signs of CHF (8) Benign essential hypertension: Plan: remains on imdur remains on MARITZA added metoprolol 12.5mg BID and tolerating such BPs reasonablly controlled (9) Heart failure with preserved ejection fraction: Plan: compensated LVEF 55 to 60% on echocardiogram done 08/31/22 No valvular vegetations (10) Coronary artery disease: Plan: continue aspirin and statin continue imdur continue ranexa no ischemic symptoms at this time added low-dose BB metoprolol 12.5mg BID (11) Atrial fibrillation: Plan: Continue Amiodarone and Eliquis remains in NSR Metoprolol 12.5mg BID (12) Rheumatoid arthritis: Plan: Typically on Rivoq chronically Dexamethasone for resp issues will help joints as well (13) Anxiety and depression: Plan: Continue Duloxetine (14) GERD (gastroesophageal reflux disease): Plan: cont PPI (15) Fungal infection of foot: Plan: BID topical Clotrimazole (16) Constipation: Plan: cont senna + miralax cont dulcolax suppos prn Plan ?thrush - added nystatin 5cc qid swish/spit - pain is improved sore throat, however, may simply be due to his parainfluenza infection PT, OT jony - rehab post discharge at [facility] advised by both services I spoke with patient about this - he is not terribly interested in such; he wishes to return to his apartment instead with PT/OT there will talk to him about this tomorrow son updated by phone 09/02 Admission and Anticipated Discharge Date Admission Date: August 30, 2022 Subjective patient overall "feeling better" today appetite a bit improved more energy still with severe cough and fits of severe bronchospasm night-time is the worst for the cough - still interfering with sleep sore throat and ear pain are both better tele overnight - wn pt's close friend - a retired physician - was updated at bedside Review of Systems Review of Systems: gen - no fevers or chills; still tired although energy slightly better today cv - no chest pain pulm - severe cough, ongoing sputum production, no dyspnea with walking in room GI - no abd pain; minimal bowel movement today Physical Exam Physical Exam: gen - NAD, sitting in the chair, severe bronchial cough during the visit; looks better today mouth - erythematous throat improved; no obvious thrush neck - no JVD heart - RRR, s1 s2, no murmur lungs - end-exp wheezes b/l - perhaps slightly better, scant rales on right base abd - soft NT ND BS+ ext - <1+ edema right leg; trace edema left leg; pulses 2+ b/l psych - a/o x 3 Results & Data Results & Data Vital Signs (Past 12 Hours) Vital Signs Temp Pulse Pulse Resp BP BP Pulse Ox 09/04/22 19:33 37.2 C 77 18 142/83 H 91 09/04/22 19:33 83 18 91 09/04/22 15:33 74 16 91 09/04/22 15:26 37.1 C 70 16 135/72 90 09/04/22 11:31 37.0 C 70 16 143/83 H 92 09/04/22 11:10 71 16 91 09/04/22 10:56 75 O2 Del Method 09/04/22 19:33 Room Air 09/04/22 19:33 Room Air 09/04/22 15:33 Room Air 09/04/22 15:26 Room Air 09/04/22 11:31 Room Air 09/04/22 11:10 Room Air 09/04/22 10:56 Laboratory Results Laboratory Results - last 24 hr 09/04/22 06:00 Sodium 137 Potassium 4.5 Chloride 102 Carbon Dioxide 27 Anion Gap 8 BUN 17 Creatinine 0.90 Est Cr Clr Drug Dosing 84.3 Est GFR ( Amer) 94.5 Est GFR (Non-Af Amer) 81.5 BUN/Creatinine Ratio 18.9 Glucose 139 H Calcium 9.0 Diagnostic Findings repeat blood cx's negative to date PG Care Time/CCT Total # of Minutes Spent Total Time Spent with Patient: Total time spent is greater than 50% in coordination of care (as documented) at patient's floor/unit and/or counseling patient: Coding Level of Care Code 77389 SUB INP/OBS CARE 2/35MIN Diagnoses Respiratory failure with hypoxia J96.91 Pneumonia J18.9 Laterality: right Lung location: lower lobe of lung Pneumonia type: due to unspecified organism Bacteremia due to Streptococcus pneumoniae R78.81; B95.3 Acute kidney injury N17.9 Elevated troponin R77.8 Hypomagnesemia E83.42 Right leg swelling M79.89 Benign essential hypertension I10 Heart failure with preserved ejection fraction I50.30 Coronary artery disease I25.10 Atrial fibrillation I48.91 Rheumatoid arthritis M06.9 Anxiety and depression F41.9; F32.A GERD (gastroesophageal reflux disease) K21.9 Fungal infection of foot B35.3 Constipation K59.00 (2) Pneumonia Laterality: right Lung location: lower lobe of lung Pneumonia type: due to unspecified organism Qualified Code(s): J18.9 - Pneumonia, unspecified organism
[2022-09-05] MEDS: guaiFENesin SUGAR FREE 200 MG/10 ML UDC PO SCH ×3 (03:32→16:28)
[2022-09-05] MEDS: HYDROcodone/HOMATROPINE SYRUP 5MG/1.5MG 5ML UDP PO PRN (05:51)
[2022-09-05] MEDS: ALBUT/IPRATROP 3MG/0.5MG NEB 3 ML VIAL NEB SCH ×4 (07:14→19:22)
[2022-09-05 09:19] LABS: Hemoglobin 10.9 g/dl (14.0-18.0); Mean Corpuscular Hemoglobin 31.1 pg (25.0-34.0); Mean Corpuscular Hgb Conc 34.1 g/dL (32.0-36.0); Mean Corpuscular Volume 91.2 fL (80.0-100.0); Mean Platelet Volume 9.6 fL (9.4-12.4); Platelet Count 275 K/uL (130-400); Red Blood Count 3.51 M/uL (4.70-6.10); White Blood Count 8.24 K/ul (4.8-10.8)
[2022-09-05 09:31] LABS: BUN Creatinine Ratio 24.3 (10-20); Calcium 9.3 mg/dl (8.6-10.3); Est GFR (African American) 80.3 ml/min; Est GFR (Non-African American) 69.3 ml/min; Magnesium 1.8 mg/dl (1.7-2.4); Potassium 4.6 mmol/L (3.5-5.1)
[2022-09-05] MEDS: cefTRIAXone SODIUM 2,000 MG in DEXTROSE 5% 50 ML IV SCH (09:52)
[2022-09-05] MEDS: RANOLAZINE 500 MG ER TAB PO SCH ×2 (09:58→20:03)
[2022-09-05] MEDS: DULoxetine HCL 60 MG CAP PO SCH (09:58)
[2022-09-05] MEDS: SENNA 8.6 MG TAB PO SCH (09:59)
[2022-09-05] MEDS: ADVANCED PROBIOTIC 1250 MG CAPSULE PO SCH (09:59)
[2022-09-05] MEDS: BENZONATATE 100 MG CAPSULE PO SCH ×3 (09:59→20:05)
[2022-09-05] MEDS: FUROSEMIDE 20 MG TAB PO SCH (10:00)
[2022-09-05] MEDS: AMIODARONE 200 MG TAB PO SCH (10:00)
[2022-09-05] MEDS: lisinopril 10 MG TAB PO SCH (10:00)
[2022-09-05] MEDS: METOPROLOL TARTRATE 25 MG TAB PO SCH ×2 (10:00→20:05)
[2022-09-05] MEDS: APIXABAN 5 MG TABLET PO SCH ×2 (10:01→20:04)
[2022-09-05] MEDS: GABAPENTIN 100 MG CAP PO SCH ×3 (10:01→20:03)
[2022-09-05] MEDS: ISOSORBIDE MONO EXTENDED REL 60 MG TABCR PO SCH (10:01)
[2022-09-05] MEDS: ASPIRIN 81 MG ECTAB PO SCH (10:02)
[2022-09-05] MEDS: PANTOprazole 40 MG TAB PO SCH (10:03)
[2022-09-05] MEDS: CLOTRIMAZOLE 1% CR 15 GM TUBE EXT SCH ×2 (10:04→20:07)
[2022-09-05] MEDS: NYSTATIN SUSP 500,000 U/5 ML UDC PO SCH ×4 (10:05→20:03)
[2022-09-05] MEDS: POLYETHYLENE (MIRALAX) 17 GM PACK PO SCH ×4 (10:05→22:33)
[2022-09-05] MEDS: dexAMETHasone 6 MG in SYRINGE 0 ML IV SCH (16:33)
[2022-09-05] MEDS: TRAVOPROST Z 0.004% OPH SOLN 2.5 ML BTL OP SCH (20:02)
[2022-09-05] MEDS: MELATONIN 3 MG TAB PO SCH (20:04)
[2022-09-05] MEDS: PRAVASTATIN SOD 40 MG TAB PO SCH (20:06)
[2022-09-05] MEDS: HYDROcodone/HOMATROPINE SYRUP 5MG/1.5MG 5ML UDP PO SCH (20:17)
[2022-09-05] MEDS: ACETAMINOPHEN 325 MG TAB PO PRN (20:18)
--- NOTE | 2022-09-05 20:51 | Hospitalist Progress Note ---
Date of Service September 05, 2022 Assessment & Plan (1) Fall: Plan: fall w/o injury no presyncope or syncope -- slipped on water on floor "Controlled" fall to the ground exam following the fall was wnl; no injuries (2) Constipation: Plan: despite senna + miralax along with suppository today STILL no bowel movement thus - order miralax 1 serving q1h x 3 doses this evening if no BM by the am tomorrow --> enema (3) Respiratory failure with hypoxia: Plan: 2nd to parainfluenza infection + probable RLL strep pneumoniae infection RESOLVED o2 is off cont nebs cont abx cont weaning steroids cont supportive care + pulmonary toilet (4) Pneumonia: Plan: RLL Likely 2nd to strep pneumoniae as this grew in his blood cx's bacterial pneumonia likely preceded by parainfluenza infection 2-view cxr 09/02 with improed infiltrates for severe night-time cough cont scheduled hycodan 5cc HS cont scheduled tessalon pearles 200mg TID cont nebs wean steroids finish abx (switch to PO augmentin tomorrow am); to date has had 7 days of IV abx (mainly rocephin) (5) Septicemia due to Streptococcus pneumoniae: Plan: 06/11 bottles + for such from admission appreciate ID consultation echo without valvular vegetations remains on IV ceftriaxone sensitivities show no resistance to rocephin or amox/clavulanate repeat blood cx's 09/02 remain negative appreciate ID consultation - at d/c can change rocephin to PO augmentin today is day # 8 of IV abx therapy plan 14 days in total d/c rocephin and change to augmentin 875mg BID x 7 days starting in am tomorrow (6) Sepsis: Plan: resolved see above (7) Acute kidney injury: Plan: 2nd to #2, #3 - resolved (8) Elevated troponin: Plan: likely myocardial demand ischemia in the setting of his pneumonia & bacteremia no evidence of ACS (9) Hypomagnesemia: Plan: repleted resolved (10) Right leg swelling: Plan: doppler negative for DVT received 2 days of PO lasix with resolution of swelling no signs of CHF (11) Benign essential hypertension: Plan: remains on imdur remains on MARITZA added metoprolol 12.5mg BID and tolerating such BPs reasonablly controlled (12) Heart failure with preserved ejection fraction: Plan: compensated LVEF 55 to 60% on echocardiogram done 08/31/22 No valvular vegetations low-dose metoprolol added this admission (outpatient cardiology notes indicate that beta pato was being planned) (13) Coronary artery disease: Plan: continue aspirin and statin continue imdur continue ranexa no ischemic symptoms at this time added low-dose BB metoprolol 12.5mg BID - tolerating (14) Atrial fibrillation: Plan: Continue Amiodarone and Eliquis remains in NSR Metoprolol 12.5mg BID (15) Rheumatoid arthritis: Plan: Typically on Rivoq chronically Dexamethasone for resp issues will help joints as well (16) Anxiety and depression: Plan: Continue Duloxetine (17) GERD (gastroesophageal reflux disease): Plan: cont PPI (18) Fungal infection of foot: Plan: BID topical Clotrimazole Plan ?thrush - added nystatin 5cc qid swish/spit - pain is improved ; throat is clear on exam sore throat likely was due to his parainfluenza infection PT, OT jony - rehab post discharge at [facility] advised by both services he wishes to return home (has apartment at [facility]) with home PT/OT son updated by phone Admission and Anticipated Discharge Date Admission Date: August 30, 2022 Subjective saw patient twice today first visit was early afternoon he was resting comfortably in the chair he voiced he was "ready to go home" reports minimal pulmonary symptoms cough much improved no dyspnea eating well STILL has not had bowel movement despite copious amounts of stool agents later in the day I received word that after attempting a bowel movement on the commode he had gotten up, slipped on water on the floor, and had a controlled fall to the ground nursing found him sitting on the floor I went back to reassess him (this was between 1800 and 1900) he denied hitting his head denied any pain in any location denied injury states he was NOT dizzy during the event tele did not show any abnormalities at the time of the event Review of Systems Review of Systems: gen - energy, appetite improved; no fevers cv - no chest pain or tightness pulm - cough improved; wheezing improved; no dyspnea GI - no pain despite the constipation; no nausea Physical Exam Physical Exam: gen - NAD, sitting in the chair, did not cough at any point during the visit; looks good mouth - MMM neck - no JVD heart - RRR, s1 s2, no murmur lungs - nearly CTA b/l today; no wheezes; scant rales right base; excellent airation abd - soft NT ND BS+ ext - no edema b/l legs; pulses 2+ b/l psych - a/o x 3 after his fall I reassessed him at bedside -- exam - gen - no signs of trauma musculo - shoulders, elbows, hands, hips, knees, ankles - no gross abnormalities; no pain with passive ROM of any joint or with palpation of any joint Results & Data Results & Data Vital Signs (Past 12 Hours) Vital Signs Temp Pulse Pulse Resp BP BP Pulse Ox 09/05/22 20:28 09/05/22 19:22 16 93 09/05/22 18:00 75 18 142/86 H 97 09/05/22 15:58 78 16 96 09/05/22 15:54 58 L 09/05/22 15:29 37.0 C 62 18 146/97 H 95 09/05/22 11:35 37.0 C 72 16 124/65 94 09/05/22 11:06 74 16 91 O2 Del Method 09/05/22 20:28 Room Air 09/05/22 19:22 Room Air 09/05/22 18:00 Room Air 09/05/22 15:58 Room Air 09/05/22 15:54 09/05/22 15:29 Room Air 09/05/22 11:35 Room Air 09/05/22 11:06 Room Air Laboratory Results Laboratory Results - last 24 hr 09/05/22 09/05/22 08:52 08:52 WBC 8.24 RBC 3.51 L Hgb 10.9 L Hct 32.0 L MCV 91.2 MCH 31.1 MCHC 34.1 RDW Std Deviation 53.0 H RDW Coeff of Sammie 16.0 H Plt Count 275 MPV 9.6 Sodium 137 Potassium 4.6 Chloride 101 Carbon Dioxide 28 Anion Gap 8 BUN 25 H Creatinine 1.03 Est Cr Clr Drug Dosing 74.0 Est GFR ( Amer) 80.3 Est GFR (Non-Af Amer) 69.3 BUN/Creatinine Ratio 24.3 H Glucose 147 H Calcium 9.3 Magnesium 1.8 PG Care Time/CCT Total # of Minutes Spent Total Time Spent with Patient: Total time spent is greater than 50% in coordination of care (as documented) at patient's floor/unit and/or counseling patient: Coding Level of Care Code 80736 SUB INP/OBS CARE 3/50MIN Diagnoses Fall W19.XXXA Constipation K59.00 Respiratory failure with hypoxia J96.91 Pneumonia J18.9 Laterality: right Lung location: lower lobe of lung Pneumonia type: due to unspecified organism Septicemia due to Streptococcus pneumoniae A40.3 Sepsis A41.9 Acute kidney injury N17.9 Elevated troponin R77.8 Hypomagnesemia E83.42 Right leg swelling M79.89 Benign essential hypertension I10 Heart failure with preserved ejection fraction I50.30 Coronary artery disease I25.10 Atrial fibrillation I48.91 Rheumatoid arthritis M06.9 Anxiety and depression F41.9; F32.A GERD (gastroesophageal reflux disease) K21.9 Fungal infection of foot B35.3 (4) Pneumonia Laterality: right Lung location: lower lobe of lung Pneumonia type: due to unspecified organism Qualified Code(s): J18.9 - Pneumonia, unspecified organism
[2022-09-06] MEDS: POLYETHYLENE (MIRALAX) 17 GM PACK PO SCH ×2 (00:56→08:36)
[2022-09-06] MEDS: COUGH DROP (SUGAR FREE) LOZ 24 LOZ/1 BOX BUCCAL PRN (01:10)
[2022-09-06] MEDS: HYDROcodone/HOMATROPINE SYRUP 5MG/1.5MG 5ML UDP PO PRN ×2 (04:10→13:30)
[2022-09-06 07:04] LABS: Calcium 8.8 mg/dl (8.6-10.3); Creatinine Clr Calc Pharmacy 76.2 ml/min; Est GFR (African American) 83.2 ml/min; Est GFR (Non-African American) 71.8 ml/min; Potassium 4.3 mmol/L (3.5-5.1)
[2022-09-06] MEDS: ALBUT/IPRATROP 3MG/0.5MG NEB 3 ML VIAL NEB SCH ×2 (07:22→11:14)
[2022-09-06] MEDS ORDERED: AMOXICILLIN/CLAVULANATE 875 MG TAB PO SCH (08:00)
[2022-09-06] MEDS: RANOLAZINE 500 MG ER TAB PO SCH (08:33)
[2022-09-06] MEDS: APIXABAN 5 MG TABLET PO SCH (08:33)
[2022-09-06] MEDS: GABAPENTIN 100 MG CAP PO SCH (08:33)
[2022-09-06] MEDS: ASPIRIN 81 MG ECTAB PO SCH (08:34)
[2022-09-06] MEDS: AMIODARONE 200 MG TAB PO SCH (08:34)
[2022-09-06] MEDS: METOPROLOL TARTRATE 25 MG TAB PO SCH (08:34)
[2022-09-06] MEDS: ADVANCED PROBIOTIC 1250 MG CAPSULE PO SCH (08:34)
[2022-09-06] MEDS: lisinopril 10 MG TAB PO SCH (08:34)
[2022-09-06] MEDS: DULoxetine HCL 60 MG CAP PO SCH (08:35)
[2022-09-06] MEDS: ISOSORBIDE MONO EXTENDED REL 60 MG TABCR PO SCH (08:35)
[2022-09-06] MEDS: SENNA 8.6 MG TAB PO SCH (08:35)
[2022-09-06] MEDS: PANTOprazole 40 MG TAB PO SCH (08:35)
[2022-09-06] MEDS: NYSTATIN SUSP 500,000 U/5 ML UDC PO SCH (08:35)
[2022-09-06] MEDS: BENZONATATE 100 MG CAPSULE PO SCH (08:35)
[2022-09-06] MEDS: CLOTRIMAZOLE 1% CR 15 GM TUBE EXT SCH (08:36)
[2022-09-06] MEDS ORDERED: dexAMETHasone 4 MG TAB PO SCH (09:00)
[2022-09-06] MEDS ORDERED: MINERAL OIL ENEMA 133 ML BTL PR STA (11:04)
--- NOTE | 2022-09-09 09:12 | Discharge Summary ---
Date of Service date of admission - August 30, 2022 date of discharge - September 06, 2022 Admission HPI Per Admitting Provider Mr Palacio is a 76 year old male with a PMH significant for afib on Eliquis, HFpEF (LVEF of 55-60% as of 07/17/22), CAD S/P TRUDY X 2 in 2016, RA on Rinvoq, lumbar stenosis, Anxiety/depression, and GERD who presented to the [facility] ED from [facility] due to SOB and hypoxia. In the ED the patient was found to be febrile at 39.4, hypertensive at 195/118, and hypoxic at 88% on RA. Labs were remarkable for a WBC of 6.22, stable Hgb at 14, stable platelets of 249, lymphocyte count of 0.52, VBG WNL, stable cr at 1.06, initial lactate of 2.9, mag of 1.4 otherwise stable electrolytes, initial high sen trop of 31, procal of 0.06, UA without signs of acute infection, Covid 19/Influenza/RSV negative. Chest xray was read as "Right basilar consolidation is typical for pneumonia/aspiration pneumonitis. Clinical correlation will be required and radiographic follow-up to resolution is recommended.". Prior to admission the patient was given a DuoNeb treatment, 1gm PO tylenol, 1hm IV magnesium, and a dose of Zosyn. His two hour repeat lactate was found to be 1.3. At the time of the exam the patient was lying in bed in no acute distress, his systolic BP was down to 115 mmhg without intervention. He states that he underwent a Dobutamine stress echo on 08/[address] Cardenas as part of a pre-surgical cardiac clearance. He states that he had no complications during the stress test and states that he has not yet been updated with the results. He states the stress test was done with the [facility]. Over the past 3-4 days the patient states he developed a productive cough with yellow sputum, increased SOB, fever, chills, and generalized weakness. He states he was evaluated by the nursing staff who sound him to be febrile at 101F and hypoxic in the 80's on RA. He denies recent chest pain, nausea, vomiting, abd pain, dysuria, hematuria, melena, diarrhea, bloody BM's, LE swelling, recent wo unds/sores, and recent trauma. He currently feels a little improved compared to his arrival. When asked about joint pain/swelling he states that most of his joints are painful due to his RA but he has not had a single joint with significant erythema, swelling, or severe pain. He explains that he is scheduled to have his right knee replaced on 09/09, which is why he was undergoing cardiac clearance. He confirms that he did not have any of his medications today prior to coming to the ED. We discussed code status, the patient states that he would want to be a Full Code and for his Son, Jaiden, to make medical decisions for him if he could not make them himself. Per chart review, the patient was recently seen by [facility] for his RA. Their note mentions that the patient had a recent hospitalization due to concerns for possible septic arthritis. They mention a discharge summary which listed a differential of "possible gram-negative bacteremia" vs "pseudo radha teremia". The Rheum note mentions that the discharge summary listed the patient undergoing an I&D during the admission and being discharged on IV antibiotics. I spoke with the patient regarding this admission. He explains that he was admitted to [facility] in [place] and confirms he was diagnosed with right knee septic arthritis. He states that he completed 4 weeks of Vancomycin and another antibiotic of which he can't remember than name. He states that when he had the septic arthritis his right knee was very swollen, red, and tender. He denies his right knee feeling like that recently. Discharge Exam gen - NAD, sitting in the chair, did not cough at any point during the visit; looks good mouth - MMM neck - no JVD heart - RRR, s1 s2, no murmur lungs - nearly CTA b/l today; no wheezes; scant rales right base; excellent airation abd - soft NT ND BS+ ext - no edema b/l legs; pulses 2+ b/l psych - a/o x 3 after his fall I reassessed him at bedside -- exam - gen - no signs of trauma musculo - shoulders, elbows, hands, hips, knees, ankles - no gross abnormalities; no pain with passive ROM of any joint or with palpation of any joint Discharge Data Allergies Allergy/AdvReac Type Severity Reaction Status Date / Time No Known Allergies Allergy Verified 09/08/22 15:16 Consultations 08/30/22 17:48 ED Decision to Admit Stat 08/31/22 10:19 Consult Infectious Diseases Routine Ordered Studies 08/31/22 00:00 US venous doppler LE RT Stat Hospital Course (1) Fall: fall w/o injury no presyncope or syncope -- slipped on water on floor "Controlled" fall to the ground exam following the fall was wnl; no injuries (2) Constipation: despite senna + miralax along with suppository today STILL no bowel movement thus - order miralax 1 serving q1h x 3 doses this evening if no BM by the am tomorrow --> enema (3) Respiratory failure with hypoxia: 2nd to parainfluenza infection + probable RLL strep pneumoniae infection RESOLVED o2 is off cont nebs cont abx cont weaning steroids cont supportive care + pulmonary toilet (4) Pneumonia: RLL Likely 2nd to strep pneumoniae as this grew in his blood cx's bacterial pneumonia likely preceded by parainfluenza infection 2-view cxr 09/02 with improed infiltrates for severe night-time cough cont scheduled hycodan 5cc HS cont scheduled tessalon pearles 200mg TID cont nebs wean steroids finish abx (switch to PO augmentin tomorrow am); to date has had 7 days of IV abx (mainly rocephin) (5) Septicemia due to Streptococcus pneumoniae: 06/11 bottles + for such from admission appreciate ID consultation echo without valvular vegetations remains on IV ceftriaxone sensitivities show no resistance to rocephin or amox/clavulanate repeat blood cx's 09/02 remain negative appreciate ID consultation - at d/c can change rocephin to PO augmentin today is day # 8 of IV abx therapy plan 14 days in total d/c rocephin and change to augmentin 875mg BID x 7 days starting in am tomorrow (6) Sepsis: resolved see above (7) Acute kidney injury: 2nd to #2, #3 - resolved (8) Elevated troponin: likely myocardial demand ischemia in the setting of his pneumonia & bacteremia no evidence of ACS (9) Hypomagnesemia: repleted resolved (10) Right leg swelling: doppler negative for DVT received 2 days of PO lasix with resolution of swelling no signs of CHF (11) Benign essential hypertension: remains on imdur remains on MARIZTA added metoprolol 12.5mg BID and tolerating such BPs reasonablly controlled (12) Heart failure with preserved ejection fraction: compensated LVEF 55 to 60% on echocardiogram done 08/31/22 No valvular vegetations low-dose metoprolol added this admission (outpatient cardiology notes indicate that beta pato was being planned) (13) Coronary artery disease: continue aspirin and statin continue imdur continue ranexa no ischemic symptoms at this time added low-dose BB metoprolol 12.5mg BID - tolerating (14) Atrial fibrillation: Continue Amiodarone and Eliquis remains in NSR Metoprolol 12.5mg BID (15) Rheumatoid arthritis: Typically on Rivoq chronically Dexamethasone for resp issues will help joints as well (16) Anxiety and depression: Continue Duloxetine (17) GERD (gastroesophageal reflux disease): cont PPI (18) Fungal infection of foot: BID topical Clotrimazole Plan ?thrush - added nystatin 5cc qid swish/spit - pain is improved ; throat is clear on exam sore throat likely was due to his parainfluenza infection PT, OT jony - rehab post discharge at [facility] advised by both services he wishes to return home (has apartment at [facility]) with home PT/OT son updated by phone Home Health Attestation I certify that this patient is under my care and that I, or a physicians broker assistant working with me, had a face to-face encounter that meets the home health eppa-cn-esvo encounter requirements with this patient. The encounter with the patient was in whole, or in part, for the following medical condition, which is the primary reason for home health care (list medical condition): I certify that, based on my findings, the following services are medically necessary home health services: My clinical findings support the need for the above services because: Further, I certify that my clinical findings support that this patient is homebound (i.e. absences from home require considerable and taxing effort and are for medical reasons or congregation services or infrequently or of short durat ion when for other reasons) because: Certification for Home Health Services: Based on the above findings, I certify that this patient is confined to the home and needs intermittent mcfp care, physical therapy and/or speech therapy or continues to need occupational therapy. The patient is under my care, and I have initiated the establishment of the plan of care. This patient will be followed by a physician who will periodically review the plan of care. Discharge Plan Discharge Items Patient Disposition: Home - Home Health Services Reason For Visit: Fever, shortness of breath Discharge Diagnosis: 1. parainfluenza infection causing bronchitis - resolved 2. pneumonia of right lung - resolved; likely was caused by streptococcal bacterial infection 3. streptococcal bacteremia (blood stream infection) - resolved 4. history of atrial fibrillation 5. rheumatoid arthritis 6. high blood pressure 7. constipation - resolved 8. fall without injury Activity: As commented below Activity Comment: gradually increase your activities over the next 7-10 days Driving/Machine Use: NO driving if using the narcotic-based cough medicine Non-emergency contact: Primary Care Provider and Physical Therapy Aides Teacher Call non-emergency contact if: you have any medication questions, your symptoms worsen and you have a fever Follow-up/Referrals: Abundio Farfan MD, PhD [Physician] - (1-2 weeks for a.fib history, high blood pressure, etc.) Danny Soliman DO [Primary Care Provider] - (later this week for hospital follow-up appointment) Diet: Heart Healthy Addtl Attending Provider Instructions: Mr Palacio, You were hospitalized due to a severe respiratory illness. You had a combination of viral infection & bacterial infection. You tested positive for a common virus called "parainfluenza" which can cause severe bronchitis. You also had right lower lobe pneumonia, likely from streptococcal infection. The strep infection grew in your blood cultures. We call this "bacteremia" or "bloodstream infection." You improved with IV antibiotics, nebulizer treatments, cough medication, and a brief course of steroids. The blood infection cleared based upon repeat blood cultures which remained negative. Your most recent chest x-ray showed resolving pneumonia. An infectious disease doctor saw you in consult and recommended 14 days of antibiotics in total with the last week being given by mouth. Recommendations - 1. for your pneumonia and bloodstream infection - * amoxicillin-clavulanate 875mg twice daily x 7 days; take with food; take your first dose this evening 2. for cough you may take - * combivent inhaler - 1 puff every 6 hours as needed for cough/wheezing * tessalon pearles (benzonatate) 100mg every 8 hours as needed for cough * if the above medications do not give you relief of your cough you can take narcotic-based cough syrup - * hydrocodone-homatropine - 5ml every 8 hours as needed * this medication may cause constipation * this medication can also cause you to be sleepy; thus, no drinking alcohol and no driving while taking this medication * please avoid taking your oxycodone pain pill and the hydrocodone- homatropine cough syrup at the same time 3. for high blood pressure and your heart - * metoprolol 12.5mg twice daily 4. rheumatoid arthritis - * HOLD your Rinvoq medication until you have your hospital follow-up appointment with your family doctor 5. home physical therapy & occupational therapy at your apartment; prescription given for this; [facility] is aware you wish to resume home PT/OT 6. constipation - continue your senna (senakot) as previous for constipation. If you need additional medication for constipation you can take [id number]-ala-fkhtwdc miralax in addition to the senna. Follow-up - * see your family doctor/primary care provider THIS WEEK for hospital follow-up and recheck of your lungs * see Dr Farfan, [facility], in 1-2 weeks to recheck your heart, blood pressure, follow-up on the new metoprolol, etc. * please contact your orthopedic surgeon to reschedule your right knee surgery Return to [facility] if - * you have recurrent fevers over 100 degrees * you have shortness of breath or chest pain * you develop SEVERE diarrhea * any other concerns It was our pleasure to care for you! Please continue to feel better, Dr Vance Pending Studies at Discharge: No Stand-Alone Forms: My [facility] [employer], Smoking Cessation Medications and DC Order Prescriptions: New benzonatate 100 mg Capsule 100 mg PO TID PRN (Reason: cough) Qty: 20 0RF amoxicillin-pot clavulanate 875-125 mg Tablet 1 tab PO BIDM 7 Days Qty: 14 0RF metoprolol tartrate 25 mg Tablet 12.5 mg PO BID Qty: 60 2RF Rx Instructions: for your heart and high blood pressure hydrocodone-homatropine [Hydromet] 5-1.5 mg/5 mL Syrup 5 ml PO Q8H PRN (Reason: cough) Qty: 100 0RF Combivent Respimat 20-100 mcg/actuation mist 1 puff inhalation Q6H PRN (Reason: cough/wheezing) Qty: 4 0RF Continued nitroglycerin 0.4 mg tablet, sublingual 0.4 mg sublingual Q5M PRN (Reason: chest pain) Qty: 30 0RF Rx Instructions: do not exceed 3 doses per episode ranolazine 500 mg tablet extended release 12 hr 500 mg PO BID Qty: 60 2RF travoprost [Travatan Z] 0.004 % drops 1 drp ophthalmic (eye) QPM Qty: 2.5 2RF gabapentin 100 mg capsule 100 mg PO TID 90 Days Qty: 270 3RF senna 8.6 mg capsule 8.6 mg PO HS pravastatin 40 mg tablet 40 mg PO HS amiodarone 200 mg tablet 200 mg PO QAM aspirin [Adult Low Dose Aspirin] 81 mg tablet,delayed release (DR/EC) 81 mg PO QAM acetaminophen [Tylenol 8 Hour] 650 mg tablet extended release 1,300 mg PO BID Patient Comments: tylenol isosorbide mononitrate 60 mg tablet extended release 24 hr 60 mg PO QAM esomeprazole magnesium [Nexium] 40 mg capsule,delayed release(DR/EC) 40 mg PO HS lisinopril 10 mg tablet 10 mg PO QAM oxycodone 5 mg tablet 5 mg PO QID PRN (Reason: pain) Rx Instructions: 1 tablet every 6 hrs, orally twice a day PRN; cholecalciferol (vitamin D3) 25 mcg (1,000 unit) capsule 25 mcg PO QAM B-complex with vitamin C Capsule 1 cap PO QAM ggkiwdtm-skbqnyx-msuo-lutein Tablet 1 tab PO QAM coenzyme Q10 100 mg capsule 10 mg PO QAM duloxetine 30 mg capsule,delayed release(DR/EC) 60 mg PO QAM omega 1-zaf-oez-fish oil [Fish Oil] 1,000 mg (120 mg-180 mg) capsule 1 cap PO QAM melatonin 5 mg capsule 5 mg PO HS Adult 50 Plus Probiotic 4 billion cell capsule 6,000 mmu cells PO QAM Rx Instructions: administer with a meal ascorbic acid (vitamin C) 500 mg capsule 1,000 mg PO QAM Eliquis 2.5 mg tablet 5 mg PO BID Discontinued Rinvoq 15 mg tablet extended release 24 hr 15 mg PO HS Discharge Orders: Discharge Order (Routine); Ordered 09/06/22 Ordered By: Shaheen Vance Admission Data Admit Date/Time: 08/30/22 17:53 Attending Provider: Shaheen Vance Admit Provider: Shaheen Amor Primary Care Provider: Danny Soliman Other Providers: Kelli Middleton at [place] ; Shaheen Amor Other Interventions: Discharge Summary Assessment (RN) Last Done: 09/06/22 13:54 Coding Diagnoses Fall W19.XXXA Constipation K59.00 Respiratory failure with hypoxia J96.91 Pneumonia J18.9 Laterality: right Lung location: lower lobe of lung Pneumonia type: due to unspecified organism Septicemia due to Streptococcus pneumoniae A40.3 Sepsis A41.9 Acute kidney injury N17.9 Elevated troponin R77.8 Hypomagnesemia E83.42 Right leg swelling M79.89 Benign essential hypertension I10 Heart failure with preserved ejection fraction I50.30 Coronary artery disease I25.10 Atrial fibrillation I48.91 Rheumatoid arthritis M06.9 Anxiety and depression F41.9; F32.A GERD (gastroesophageal reflux disease) K21.9 Fungal infection of foot B35.3
== END 2022-09-06 14:24 | disposition home health service (06) | DRG 871 ==
LOC: ED 15:34 → 2E 17:53 → SUATTDRO 17:53 → 2E 19:59 → 3W 09-05 19:02

== ENCOUNTER 2023-01-13 18:17 | Inpatient (IN) ==
[2023-01-13] MEDS ORDERED: SODIUM CHLORIDE 0.9% 1000ML 1,000 ML IV ONE (18:27)
--- NOTE | 2023-01-13 18:30 | Emergency Department Note ---
Impression & Plan Incarcerated intra-abdominal hernia, Abdominal pain ED Provider Note NAME: RAFY CHICAS AGE: 77 SEX: M : 1945 ARRIVES VIA: Ambulance INFORMANT: Patient ED PROVIDER(S): Rakesh Ellis DO CHIEF COMPLAINT: abdominal pain HPI: Patient is a 77-year-old male with a past medical history of heart failure, hypertension previous appendectomy, bowel resection with colostomy, reversal as well as a hernia repair who presents to the ER for abdominal pain periumbilically which has been present for the past 3 to 4 days getting significantly worse. He did have a small bowel movement today. Had a CT performed which showed possible incarcerated hernia and was called back to the ER. Denies any dysuria, urgency, or frequency. No other exacerbating or remitting factors. PAST MEDICAL HISTORY:See Below PAST SURGICAL HISTORY:See Below FAMILY HISTORY:See Below SOCIAL HISTORY:See Below HOME MEDICATIONS:See Below ALLERGIES:See Below VITALS:See Below PHYSICAL EXAMINATION: GENERAL: Sitting up in bed, alert, mild distress holding abdomen, nontoxic EYE EXAM: normal conjunctiva. OROPHARYNX: mucous membranes are moist NECK: supple, no nuchal rigidity, no adenopathy, non-tender LUNGS: Clear to auscultation. Normal chest wall mechanics HEART: no murmurs, S1 normal and S2 normal ABDOMEN: abdomen soft, tender to palpation periumbilically with a small appreciable mass, normo-active bowel sounds, no masses, no rebound or guarding. UPPER EXTREMITIES: upper extremities are grossly normal. LOWER EXTREMITIES: No pitting edema. NEURO EXAM: Normal sensorium, cranial nerves II-XII grossly intact, normal speech, no gross weakness of arms, no gross weakness of legs. MEDICAL DECISION MAKING: Patient is a 77-year-old male who presents ER for above-stated complaint. IV wa s established blood work was obtained. External records reviewed. Labs show no significant leukocytosis or anemia. BMP along with LFTs bilirubin and lipase was unremarkable. UA was clean. COVID-negative. CT abdomen pelvis was reviewed as was performed as an outpatient earlier today which showed possible incarcerated hernia. Contacted initially Dr. Aaron he was just finishing up his on-call shift and he recommended discussing with Dr. Amor who was gracious enough to present at bedside and evaluate him. Hernia was reduced and recommend admission to the hospitalist service and clearance for the OR by cardiology if possible. Patient was updated bedside. He was given IV narcotics. He was also given IV fluids. He was admitted to the hospital service for further management. Triage Nursing notes reviewed. Limited review of prior medical records performed Vital Signs: reviewed and remarkable for HTN Differential diagnosis: Differential diagnoses includes but is not limited to gastritis, peptic ulcer disease, GERD, gallbladder disease, pancreatitis, small bowel obstruction, appendicitis, diverticulitis, hernia, urinary tract infection, torsion, perforation, trauma, infectious. ER treatment provided: See below Diagnostics interpreted by me include EKG and cardiac monitoring as listed below: -Cardiac Monitoring: An order was placed for continuous cardiac monitoring. The monitor shows a rate of 70 with sinus rhythm. -ECG: none -Laboratory studies:Interpreted by me as stated above in MDM and shown below. Imaging studies: Xrays: As interpreted by me: Portable AP upright 1 view of the chest shows no focal infiltrate CTs show: none Consultation(s): As described in MDM seen evaluated by general surgery and recommended admission to the hospitalist for OR tomorrow. Procedures:none Critical Care: None Past Med/Surg History Medical History (Updated 01/13/23 @ 22:27 by Rakesh Ellis DO) Anxiety and depression Atrial fibrillation episode occurred in 03/2022, taken to [facility] in [place], admitted to ICU for 1-2 weeks (was not intubated, but wasn't "awake either"), then to cardiac unit, then to rehab at [facility]; f/u dr. guerra in [place]>will be starting to see a quality liaison at [facility] 2nd week of 08/2022 Benign essential hypertension Coronary artery disease GERD (gastroesophageal reflux disease) Heart failure with preserved ejection fraction Hx of staphylococcal infection 03/2022, w/"bacterial infection" at the same, in the rt. knee, occurrred during atrial fibrillation episode. "when he woke up, he couldn't walk." Hypomagnesemia Incisional hernia Lumbar radiculopathy Lumbar stenosis Myocardial Infarction "a silent one, about 3 years ago" Pneumonia Respiratory failure with hypoxia Rheumatoid arthritis Sepsis Septicemia due to Streptococcus pneumoniae Sleep apnea no device Surgical History History of bowel resection for diverticulitis; w/colostomy placement for 3-4 months History of cardiac cath ~3 years ago, SOB and "felt like throat was constricting", had "silent heart attack", x2 stents, done in [place] History of colostomy reversal History of esophagogastroduodenoscopy (EGD) History of heart artery stent ~3 years ago, x2 stents, done in [place]; f/u dr guerra, [place]>will be seeing new cardio at [facility] 2nd week of August 2022. Hx of Achilles tendon repair rt. Hx of bilateral cataract extraction Hx of colonoscopy Last Colonoscopy 08/14/22, repeat 3 years in 2025 Hx of hernia repair near former colostomy site Hx of knee surgery rt. patellar tendon repair Hx of rotator cuff surgery bilateral Hx of total hip arthroplasty rt. Hx of total knee replacement lt. 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 Partner Required: No Beliefs That Will Affect Care: None marital status: Single Current Living Situation: [facility] current occupational status: retired How many Children do You have: 2 Feels Safe at Home: Yes Childhood Exposure to Second-Hand Smoke: Yes caffeine: Yes Dental Care, Regularly: Yes Physical Activity Frequency: Does not Exercise Seatbelt Use: always Sunscreen Use: Yes Assistive Devices: Glasses, Walker and Wheelchair Allergies Allergies Allergy/AdvReac Type Severity Reaction Status Date / Time cat dander Allergy Severe Swelling Verified 01/13/23 19:44 of Lip/Tongue/Throat Home Meds Home Medications Medication Instructions Recorded Confirmed sennosides 8.6 mg capsule (senna) 8.6 mg PO AMHS 06/19/22 01/13/23 amiodarone 200 mg tablet 200 mg PO QAM 08/07/22 01/13/23 ascorbic acid (vitamin C) 500 mg 1,000 mg PO QAM 08/07/22 01/13/23 capsule aspirin 81 mg tablet,delayed 81 mg PO QAM 08/07/22 01/13/23 release (Adult Low Dose Aspirin) coenzyme Q10 100 mg capsule 10 mg PO QAM 08/07/22 01/13/23 esomeprazole magnesium 40 mg 40 mg PO HS 08/07/22 01/13/23 capsule,delayed release (Nexium) isosorbide mononitrate 60 mg 60 mg PO QAM 08/07/22 01/13/23 tablet,extended release 24 hr lactobacillus combination no.9 4 6,000 mmu cells PO QAM 08/07/22 01/13/23 billion cell capsule (Adult 50 Plus Probiotic) lisinopril 10 mg tablet 10 mg PO QAM 08/07/22 01/13/23 melatonin 5 mg capsule 5 mg PO HS 08/07/22 01/13/23 aovwfxmk-mxyguul-cmca-lutein tablet 1 tab PO QAM 08/07/22 01/13/23 apixaban 2.5 mg tablet (Eliquis) 2.5 mg PO BID 08/30/22 01/13/23 upadacitinib 15 mg tablet,extended 15 mg PO QAM 10/15/22 01/13/23 release 24 hr (Rinvoq) acetaminophen 500 mg capsule 1,000 mg PO TID 11/11/22 01/13/23 gabapentin 300 mg capsule 300 mg PO TID 01/13/23 01/13/23 pravastatin 40 mg tablet 40 mg PO HS 01/13/23 01/13/23 ranolazine 500 mg tablet,extended 500 mg PO BID 01/13/23 01/13/23 release,12 hr travoprost 0.004 % eye drops 1 drp OPB QPM 01/13/23 01/13/23 (Travatan Z) Previous Rx's Medication Instructions Recorded nitroglycerin 0.4 mg sublingual 0.4 mg sublingual Q5M PRN chest 07/23/22 tablet pain #30 tabs cholecalciferol (vitamin D3) 250 250 mcg PO DAILY 90 days #90 tabs 09/19/22 mcg (10,000 unit) tablet metoprolol tartrate 25 mg tablet 12.5 mg PO BID #60 tabs 10/03/22 omega 0-fks-mpr-fish oil 1,000 mg 1 cap PO QAM #30 caps 12/15/22 (120 mg-180 mg) capsule (Fish Oil) clobetasol 0.05 % topical cream 1 applic topical BID 2 weeks #30 12/25/22 grams furosemide 20 mg tablet 20 mg PO DAILY PRN edema or weight 12/25/22 gain #30 tabs duloxetine 60 mg capsule,delayed 60 mg PO DAILY #90 caps 01/01/23 release Results & Data (ED) Vital Signs Vital Signs - 24 hr 01/13/23 18:27 01/13/23 18:27 01/13/23 18:34 Temperature 37.1 C Temperature Source Oral Pulse Rate 64 59 L Pulse Rate [Apical] Respiratory Rate 15 Blood Pressure 156/86 H Blood Pressure [Left Arm] Blood Pressure Mean 109 Blood Pressure Mean [Left Arm] Pulse Oximetry 98 98 Oxygen Delivery Method Room Air Room Air Sepsis Recent Fever Within 48 Hours No Sepsis New/Unexplained Change in Mental Status No Sepsis Action Taken by Nursing No Action Required 01/13/23 19:05 Temperature Temperature Source Pulse Rate Pulse Rate [Apical] 60 Respiratory Rate 15 Blood Pressure Blood Pressure [Left Arm] 146/79 H Blood Pressure Mean Blood Pressure Mean [Left Arm] 101 Pulse Oximetry 99 Oxygen Delivery Method Room Air Sepsis Recent Fever Within 48 Hours Sepsis New/Unexplained Change in Mental Status Sepsis Action Taken by Nursing Laboratory Data 01/13/23 18:37 01/13/23 18:37 Lab Results 01/13/23 01/13/23 01/13/23 Range/Units 18:37 18:37 18:38 WBC 5.87 (4.8-10.8) K/ul RBC 3.37 L (4.70-6.10) M/uL Hgb 9.7 L (14.0-18.0) g/dl Hct 29.9 L (42.0-52.0) % MCV 88.7 (80.0-100.0) fL MCH 28.8 (25.0-34.0) pg MCHC 32.4 (32.0-36.0) g/dL RDW Std Deviation 52.4 H (36.4-46.3) fL RDW Coeff of Sammie 16.2 H (11.5-14.5) % Plt Count 221 (130-400) K/uL MPV 10.3 (9.4-12.4) fL Immature Gran % (Auto) 0.3 % Neut % (Auto) 61.2 % Lymph % (Auto) 22.5 % Stanley % (Auto) 14.7 % Eos % (Auto) 1.0 % Baso % (Auto) 0.3 % Neut # (Auto) 3.59 (1.40-6.50) K/uL Lymph # (Auto) 1.32 (1.2-3.4) K/uL Stanley # (Auto) 0.86 H (0.11-0.59) K/uL Eos # (Auto) 0.06 (0-0.50) K/uL Baso # (Auto) 0.02 (0-0.2) K/uL Immature Gran # (Auto) 0.02 (0.01-0.20) K/uL Sodium 134 L (136-145) mmol/L Potassium 4.4 (3.5-5.1) mmol/L Chloride 103 (98-107) mmol/L Carbon Dioxide 25 (21-32) mmol/L Anion Gap 6 (3-11) BUN 26 H (6-23) mg/dl Creatinine 1.18 (0.6-1.4) mg/dl Est Cr Clr Drug Dosing 65.0 ml/min Est GFR ( Amer) 67.6 ml/min Est GFR (Non-Af Amer) 58.3 ml/min BUN/Creatinine Ratio 22.0 H (10-20) Glucose 111 H (70-99(Fasting)) mg/dl Calcium 8.7 (8.6-10.3) mg/dl Total Bilirubin 0.5 (0.2-1.0) mg/dl AST 26 (13-39) U/L ALT 20 (7-52) U/L Alkaline Phosphatase 61 (34-104) U/L Total Protein 6.2 (6.0-8.3) gm/dl Albumin 3.8 (3.4-5.0) gm/dl Globulin 2.4 L (2.5-4.0) gm/dl Albumin/Globulin Ratio 1.6 (0.9-2) Lipase 30 (11-82) U/L SARS-CoV-2, RNA, NAAT NEGATIVE (NEGATIVE) Administered Medications Lactated Ringer's (Lr) 1,000 mls @ 80 mls/hr IV .[id number] ELDER Stop: 01/14/23 21:44 Last Admin: 01/13/23 20:45 Dose: 80 mls/hr Documented By: BEV Famotidine 20 mg/ Syringe 5 mls @ 2.5 mls/min IV HS ELDER Stop: 02/12/23 20:59 Last Admin: 01/13/23 20:44 Dose: 2.5 mls/min Documented By: BEV Morphine Sulfate (Morphine Sulfate 2 Mg/Ml Carp) 2 mg IV Q3H PRN PRN Reason: Pain(5+) Stop: 01/27/23 20:22 Last Admin: 01/13/23 21:27 Dose: 2 mg Documented By: BEV Discontinued Medications Famotidine (Famotidine 20mg/5ml Iv Push) Confirm Administered Dose 20 mg IV .STK-MED ONE Stop: 01/13/23 20:41 Last Admin: 01/13/23 20:44 Dose: Not Given Documented By: BEV Sodium Chloride (Nss 1000ml) 1,000 mls @ 999 mls/hr IV .Q1H1M ONE Stop: 01/13/23 19:27 Last Infusion: 01/13/23 20:23 Dose: 0 mls/hr Documented By: Admin: 01/13/23 19:03 Dose: 999 mls/hr Documented By: JASWANT Morphine Sulfate (Morphine Sulfate 10 Mg/Ml Carp/Vial) 6 mg IV NOW STA Stop: 01/13/23 18:55 Last Admin: 01/13/23 19:03 Dose: 6 mg Documented By: JASWANT Discharge Plan Visit Data Chief Complaint: Abdominal Pain ED Provider: Rakesh Ellis Discharge Problem: Incarcerated intra-abdominal hernia, Abdominal pain Patient Disposition: Admitted As Inpatient Discharge Instructions Interventions: ED Discharge Assessment Last Done: 01/13/23 21:52
[2023-01-13] MEDS ORDERED: MoRPHine SULFATE 10 MG/ML CARP/VIAL IV STA (18:54)
[2023-01-13 19:04] LABS: Basophils # (auto) 0.02 K/uL (0-0.2); Basophils % (auto) 0.3 %; Eosinophils # (auto) 0.06 K/uL (0-0.50); Hematocrit (blood only) 29.9 % (42.0-52.0); Hemoglobin 9.7 g/dl (14.0-18.0); Immature Granulocytes # (auto) 0.02 K/uL (0.01-0.20); Immature Granulocytes % (auto) 0.3 %; Lymphocytes # (auto) 1.32 K/uL (1.2-3.4); Lymphocytes % (auto) 22.5 %; Mean Corpuscular Hemoglobin 28.8 pg (25.0-34.0); Mean Corpuscular Hgb Conc 32.4 g/dL (32.0-36.0); Mean Corpuscular Volume 88.7 fL (80.0-100.0); Mean Platelet Volume 10.3 fL (9.4-12.4); Monocytes # (auto) 0.86 K/uL (0.11-0.59); Monocytes % (auto) 14.7 %; Neutrophils # (auto) 3.59 K/uL (1.40-6.50); Neutrophils % (auto) 61.2 %; Platelet Count 221 K/uL (130-400); RDW Coefficient of Variation 16.2 % (11.5-14.5); RDW Standard Deviation 52.4 fL (36.4-46.3); Red Blood Count 3.37 M/uL (4.70-6.10); White Blood Count 5.87 K/ul (4.8-10.8)
[2023-01-13 19:12] LABS: Albumin Globulin Ratio 1.6 (0.9-2); Albumin Level 3.8 gm/dl (3.4-5.0); Bilirubin,Total 0.5 mg/dl (0.2-1.0); Calcium 8.7 mg/dl (8.6-10.3); Est GFR (African American) 67.6 ml/min; Est GFR (Non-African American) 58.3 ml/min; Globulin 2.4 gm/dl (2.5-4.0); Potassium 4.4 mmol/L (3.5-5.1); Total Protein 6.2 gm/dl (6.0-8.3)
--- NOTE | 2023-01-13 19:53 | Surgery Consultation ---
Date of Consultation January 13, 2023 Assessment & Plan (1) Incisional hernia: no signs of ischemia WBC normal vitals normal having significant pain and some dilated bowel IVF medical clearance stop eliquis; strongly consider repair of hernia this hospitalization Present on Admission?: Yes History of Present Illness History of Present Illness This is a 77YO male with heart failure, CAD with stent placement, h/o a fib, arthritis, and hypertension. Hid previous surgeries include appendectomy, bowel resection with colostomy, reversal as well hernia repairs without mesh who presents to the ER for abdominal pain which has been present for the past 3 to 4 days. He is passing flatus and did have a small bowel movement today. CT shows bowel within a midline hernia sac which is dilated; also a hernia in left lateral abdominal wall. No nausea or vomiting. Allergies Allergy/AdvReac Type Severity Reaction Status Date / Time cat dander Allergy Severe Swelling Verified 01/13/23 19:44 of Lip/Tongue/Throat Home Medications Medication Instructions Recorded Confirmed Type sennosides 8.6 mg capsule (senna) 8.6 mg PO AMHS 06/19/22 01/13/23 History nitroglycerin 0.4 mg sublingual 0.4 mg sublingual Q5M PRN chest 07/23/22 01/13/23 Rx tablet pain #30 tabs amiodarone 200 mg tablet 200 mg PO QAM 08/07/22 01/13/23 History ascorbic acid (vitamin C) 500 mg 1,000 mg PO QAM 08/07/22 01/13/23 History capsule aspirin 81 mg tablet,delayed 81 mg PO QAM 08/07/22 01/13/23 History release (Adult Low Dose Aspirin) coenzyme Q10 100 mg capsule 10 mg PO QAM 08/07/22 01/13/23 History esomeprazole magnesium 40 mg 40 mg PO HS 08/07/22 01/13/23 History capsule,delayed release (Nexium) isosorbide mononitrate 60 mg 60 mg PO QAM 08/07/22 01/13/23 History tablet,extended release 24 hr lactobacillus combination no.9 4 6,000 mmu cells PO QAM 08/07/22 01/13/23 History billion cell capsule (Adult 50 Plus Probiotic) lisinopril 10 mg tablet 10 mg PO QAM 08/07/22 01/13/23 History melatonin 5 mg capsule 5 mg PO 08/07/22 01/13/23 History jbqlmivx-csozmdd-vovo-lutein tablet 1 tab PO QAM 08/07/22 01/13/23 History apixaban 2.5 mg tablet (Eliquis) 2.5 mg PO BID 08/30/22 01/13/23 History cholecalciferol (vitamin D3) 250 250 mcg PO DAILY 90 days #90 tabs 09/19/22 01/13/23 Rx mcg (10,000 unit) tablet metoprolol tartrate 25 mg tablet 12.5 mg PO BID #60 tabs 10/03/22 01/13/23 Rx upadacitinib 15 mg tablet,extended 15 mg PO QAM 10/15/22 01/13/23 History release 24 hr (Rinvoq) acetaminophen 500 mg capsule 1,000 mg PO TID 11/11/22 01/13/23 History omega 0-tpo-owd-fish oil 1,000 mg 1 cap PO QAM #30 caps 12/15/22 01/13/23 Rx (120 mg-180 mg) capsule (Fish Oil) clobetasol 0.05 % topical cream 1 applic topical BID 2 weeks #30 12/25/22 01/13/23 Rx grams furosemide 20 mg tablet 20 mg PO DAILY PRN edema or weight 12/25/22 01/13/23 Rx gain #30 tabs duloxetine 60 mg capsule,delayed 60 mg PO DAILY #90 caps 01/01/23 01/13/23 Rx release gabapentin 300 mg capsule 300 mg PO TID 01/13/23 01/13/23 History pravastatin 40 mg tablet 40 mg PO HS 01/13/23 01/13/23 History ranolazine 500 mg tablet,extended 500 mg PO BID 01/13/23 01/13/23 History release,12 hr travoprost 0.004 % eye drops 1 drp OPB QPM 01/13/23 01/13/23 History (Kristine Ponce) Patient History Medical History (Updated 01/13/23 @ 19:57 by Irwin Dangelo MD) Anxiety and depression Atrial fibrillation episode occurred in 03/2022, taken to [facility] in [place], admitted to ICU for 1-2 weeks (was not intubated, but wasn't "awake either"), then to cardiac unit, then to rehab at [facility]; f/u dr. guerra in [place]>will be starting to see a apprenticeship consultant at [facility] 2nd week of 08/2022 Benign essential hypertension Coronary artery disease GERD (gastroesophageal reflux disease) Heart failure with preserved ejection fraction Hx of staphylococcal infection 03/2022, w/"bacterial infection" at the same, in the rt. knee, occurrred during atrial fibrillation episode. "when he woke up, he couldn't walk." Hypomagnesemia Incisional hernia Lumbar radiculopathy Lumbar stenosis Myocardial Infarction "a silent one, about 3 years ago" Pneumonia Respiratory failure with hypoxia Rheumatoid arthritis Sepsis Septicemia due to Streptococcus pneumoniae Sleep apnea no device Surgical History History of bowel resection for diverticulitis; w/colostomy placement for 3-4 months History of cardiac cath ~3 years ago, SOB and "felt like throat was constricting", had "silent heart attack", x2 stents, done in [place] History of colostomy reversal History of esophagogastroduodenoscopy (EGD) History of heart artery stent ~3 years ago, x2 stents, done in [place]; f/u dr guerra, [place]>will be seeing new cardio at [place] 2nd week of August 2022. Hx of Achilles tendon repair rt. Hx of bilateral cataract extraction Hx of colonoscopy Last Colonoscopy 08/14/22, repeat 3 years in 2025 Hx of hernia repair near former colostomy site Hx of knee surgery rt. patellar tendon repair Hx of rotator cuff surgery bilateral Hx of total hip arthroplasty rt. Hx of total knee replacement lt. 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 Beliefs That Will Affect Care: None marital status: Single Current Living Situation: Shelter current occupational status: retired How many Children do You have: 2 Feels Safe at Home: Yes Childhood Exposure to Second-Hand Smoke: Yes caffeine: Yes Dental Care, Regularly: Yes Physical Activity Frequency: Does not Exercise Seatbelt Use: always Sunscreen Use: Yes Assistive Devices: Glasses, Walker and Wheelchair Review of Systems Constitutional: + anorexia; no fever and no chills Eyes: no problem reported Ear, Nose, Mouth, Throat: no problem reported Respiratory: + problem reported; no cough and no dyspnea Cardiovascular: no chest pain Gastrointestinal: + abdominal pain and + bloating; no nausea, no vomiting and no change in bowel habits Genitourinary: no dysuria Integumentary: + rash (right knee swelling and post-op ecchymosis from TKR in November) Neurologic: + generalized weakness; no localized weakness Psychiatric: no behavioral changes Endocrine: no polyphagia and no polyuria Hematologic / Lymphatic: + easy bleeding and + easy bruising Physical Exam Constitutional: WD/WN, vitals as above Eyes: PERRL, conjunctivae normal, anicteric sclerae ENMT: external ear and nose normal, oropharynx normal Neck: trachea midline Respiratory: normal respiratory effort, lungs clear to auscultation Cardiovascular: RRR, no murmur, no edema Gastrointestinal (Abdomen): Inspection/Auscultation: abdomen normal to inspection, + abdomen distended, normal bowel sounds and + visible herniation (bowel reduces and returns immediately; no erythema) Percussion/Palpation: + abdomen tender, abdomen soft and + hernia (left lateral wall hernia near previous colostomy site); no guarding and abdomen not rigid Musculoskeletal: Head/Neck/Chest: normocephalic and head atraumatic Knee: + knee abnormal to inspection and + ecchymosis Skin: no rashes, warm and dry Psychiatric: Orientation: alert and oriented x 3 Results & Data Vital Signs (Past 12 Hours) Vital Signs Temp Pulse Pulse Resp BP BP Pulse Ox 01/13/23 19:05 60 15 146/79 H 99 01/13/23 18:34 59 L 01/13/23 18:27 98 01/13/23 18:27 37.1 C 64 15 156/86 H 98 O2 Del Method 01/13/23 19:05 Room Air 01/13/23 18:34 01/13/23 18:27 Room Air 01/13/23 18:27 Room Air Diagnostic Findings CT abd pelvis oral and IV con CLINICAL HISTORY: R10.30 - Lower abdominal pain, unspecified TECHNIQUE: Helical axial images of the abdomen and pelvis were obtained and displayed. Automated dose lowering techniques and/or adjustment according to patient size were utilized for this exam. This exam was performed with intravenous contrast. CT DOSE: 1403.48 mGy.cm COMPARISON: None available at the time of this dictation. FINDINGS: Lower chest: Bibasilar atelectasis versus scarring is seen. Liver: Unremarkable. No focal lesions are seen. Gallbladder and biliary tree: No calcified gallstones. Normal caliber wall. No intra- or extrahepatic biliary ductal dilation. Pancreas: Unremarkable, no focal lesions. Spleen: Calcifications are noted in the spleen compatible with prior granulomatous disease. Adrenals: Unremarkable. Kidneys and ureters: Renal cysts are seen. Bladder: Unremarkable. Reproductive organs: Unremarkable. Bowel: Postsurgical changes of sigmoid colon resection. Diverticulosis is seen without diverticulitis. Patient is status post appendicitis. There is a right of midline hernia containing a loop of bowel. The proximal small bowel is dilated. Lymph nodes Retroperitoneal: Subcentimeter lymph nodes are noted. Pelvic: Unremarkable. Mesenteric: Unremarkable. Peritoneum: Normal. Vessels: Unremarkable. Abdominal wall: Fat-containing midline and left-sided hernias and fat and bowel containing right of midline hernia are seen. Bones: Degenerative changes in the visualized spine. There are pars defects at L5-S1 with grade 2 anterolisthesis. Right hip total arthroplasty is seen. IMPRESSION: There is a loop of small bowel in a right-sided hernia with proximal bowel dilation. This may be the source of lower abdominal pain. Incarcerated hernia cannot be excluded, correlation with physical exam is recommended. Additional findings as above.
--- NOTE | 2023-01-13 20:04 | History & Physical Report ---
Date of Service January 13, 2023 Assessment & Plan (1) Incisional hernia: Plan: -Admit to med/surge -Currently stable -Has been having progressive abdominal pain with associated constipation and nausea over the past 4 days -Outpatient CT of the abd/pelvis today showed signs of right abdominal wall hernia with possible strangulation -Evaluated by General Surgery in the ED who attempted to reduce the hernia with initial success. Hernia returned but is not currently strangulated -Currently passing gas -General surgery will plan to take the patient to the OR, non-emergently at this time, to repair his hernia sites -Requested medicine admission with Cardiology consult for cardiac clearance -Had a negative dobutamine stress echo in August of this year -Will obtain Chest Xray and ECG for further evaluation -Hold Eliquis in preparation for the OR -Will continue aspirin for now with his hx of TRUDY placement in 2016 -Hold chemical DVT PPX for now, will order BL TEREZA's -NPO except meds; will give light IV fluids overnight while NPO -AM CBC, CMP, Mag, PT/INR (2) Atrial fibrillation: Plan: -Stable -Hold Eliquis in preparation for OR in near future -Will continue metoprolol and amiodarone (3) HFrEF (heart failure with reduced ejection fraction): Plan: -Currently Euvolemic -Will hold lasix while NPO -Monitor for volume overload while on IV fluids -Continue Imdur (4) Hypertension: Plan: -Stable -Hold lisinopril for now to prevent ryan-operative hypotension (5) Anxiety and depression: Plan: -Continue Duloxetine (6) Rheumatoid arthritis: Plan: -Will hold rinvoq in the ryan-operative period (7) Coronary artery disease: Plan: -Stable -Conitnue aspirin and ranolazine (8) GERD (gastroesophageal reflux disease): Plan: -Will switch him to scheduled daily IV famotidine while NPO Plan The patient was discussed with Dr. Betts at the time of the admission History of Present Illness Chief Complaint: abdominal pain Primary Care Provider: DO Fady Lopezald is a 77 year old male with a PMH significant for afib on Eliquis, HFpEF (LVEF of 55-60% as of 07/17/22), CAD S/P TRUDY X 2 in 2015, RA on Rinvoq, lumbar stenosis, Anxiety/depression, and GERDwho presented to the [facility] ED on 01/[address] findings earlier today. Per chart review, the patient saw his PCP earlier today for 4 days of progressive abdominal pain. CT of the abd/pelvis with oral and IV con was read as "There is a loop of small bowel in a right-sided hernia with proximal bowel dilation. This may be the source of lower abdominal pain. Incarcerated hernia cannot be excluded, correlation with physical exam is recommended. Additional findings as above.". His PCP instructed him to go to the ED after receiving the results. The patient has remained stable since arrival. Labs were significant for for a BUN of 26, Cr of 1.18 (baseline is near 1.0), sodium of 134, lipase WNL and covid 19 negative. General evaluated the patient and will plan to take him to the OR, non-emergently for repair as they believe the hernia will continue to protrude and risk further incarceration. We were asked to admit the patient to our service with Cardiology consult tomorrow for operative clearance. Prior to admission the patient was given 1L NSS and 6 mg IV morphine. At the time of the exam the patient was lying in bed in no acute distress. He states that he started to develop abdominal pain and constipation approximately 4 days ago. He took a stool softener yesterday and two small, soft, non-bloody bowel movements yesterday. Since then his lower abdominal pain had progressed. He has previous abdominal hernias from his previously reversed colostomy and bowel resection surgical scars, however, this normally reduce easily on their own. Currently his pain is a 5/10 after receiving morphine in the ED. When asked about recent activity, he states that he tries to do approximately 40 min of cardio daily. He denies recent decreases in exercise tolerance or recent chest pain/SOB. He denies recent fever, chills, chest pain, SOB, vomiting, dysuria, hematuria, melena, significant LE swelling, and recent trauma. He took his am medications, this includes his aspirin and Eliquis. We discussed code status, he wishes to be a Full Code as his son was recently diagnosed with pancreatic cancer and he would like to try and support him as long as possible. Please refer to Dr. Betts's attestation for any changes to the treatment plan Allergies Allergy/AdvReac Type Severity Reaction Status Date / Time cat dander Allergy Severe Swelling Verified 01/13/23 19:44 of Lip/Tongue/Throat Home Medications Medication Instructions Recorded Confirmed Type sennosides 8.6 mg capsule (senna) 8.6 mg PO AMHS 06/19/22 01/13/23 History nitroglycerin 0.4 mg sublingual 0.4 mg sublingual Q5M PRN chest 07/23/22 01/13/23 Rx tablet pain #30 tabs amiodarone 200 mg tablet 200 mg PO QAM 08/07/22 01/13/23 History ascorbic acid (vitamin C) 500 mg 1,000 mg PO QAM 08/07/22 01/13/23 History capsule aspirin 81 mg tablet,delayed 81 mg PO QAM 08/07/22 01/13/23 History release (Adult Low Dose Aspirin) coenzyme Q10 100 mg capsule 10 mg PO QA 08/07/22 01/13/23 History esomeprazole magnesium 40 mg 40 mg PO HS 08/07/22 01/13/23 History capsule,delayed release (Nexium) isosorbide mononitrate 60 mg 60 mg PO QA 08/07/22 01/13/23 History tablet,extended release 24 hr lactobacillus combination no.9 4 6,000 mmu cells PO QA 08/07/22 01/13/23 History billion cell capsule (Adult 50 Plus Probiotic) lisinopril 10 mg tablet 10 mg PO QA 08/07/22 01/13/23 History melatonin 5 mg capsule 5 mg PO 08/07/22 01/13/23 History ejefykml-drlichl-ftba-lutein tablet 1 tab PO QAM 08/07/22 01/13/23 History apixaban 2.5 mg tablet (Eliquis) 2.5 mg PO BID 08/30/22 01/13/23 History cholecalciferol (vitamin D3) 250 250 mcg PO DAILY 90 days #90 tabs 09/19/22 01/13/23 Rx mcg (10,000 unit) tablet metoprolol tartrate 25 mg tablet 12.5 mg PO BID #60 tabs 10/03/22 01/13/23 Rx upadacitinib 15 mg tablet,extended 15 mg PO QAM 10/15/22 01/13/23 History release 24 hr (Rinvoq) acetaminophen 500 mg capsule 1,000 mg PO TID 11/11/22 01/13/23 History omega 0-fus-eyd-fish oil 1,000 mg 1 cap PO QAM #30 caps 12/15/22 01/13/23 Rx (120 mg-180 mg) capsule (Fish Oil) clobetasol 0.05 % topical cream 1 applic topical BID 2 weeks #30 12/25/22 01/13/23 Rx grams furosemide 20 mg tablet 20 mg PO DAILY PRN edema or weight 12/25/22 01/13/23 Rx gain #30 tabs duloxetine 60 mg capsule,delayed 60 mg PO DAILY #90 caps 01/01/23 01/13/23 Rx release gabapentin 300 mg capsule 300 mg PO TID 01/13/23 01/13/23 History pravastatin 40 mg tablet 40 mg PO HS 01/13/23 01/13/23 History ranolazine 500 mg tablet,extended 500 mg PO BID 01/13/23 01/13/23 History release,12 hr travoprost 0.004 % eye drops 1 drp OPB QPM 01/13/23 01/13/23 History (Travatan Z) Past Med/Surg History Medical History (Updated 01/13/23 @ 22:27 by Rakesh Ellis DO) Anxiety and depression Atrial fibrillation episode occurred in 03/2022, taken to Health system in [place], admitted to ICU for 1-2 weeks (was not intubated, but wasn't "awake either"), then to cardiac unit, then to rehab at [facility] in [place]; f/u dr. guerra in [place]>will be starting to see a litigation associate at [facility] 2nd week of 08/2022 Benign essential hypertension Coronary artery disease GERD (gastroesophageal reflux disease) Heart failure with preserved ejection fraction Hx of staphylococcal infection 03/2022, w/"bacterial infection" at the same, in the rt. knee, occurrred during atrial fibrillation episode. "when he woke up, he couldn't walk." Hypomagnesemia Incisional hernia Lumbar radiculopathy Lumbar stenosis Myocardial Infarction "a silent one, about 3 years ago" Pneumonia Respiratory failure with hypoxia Rheumatoid arthritis Sepsis Septicemia due to Streptococcus pneumoniae Sleep apnea no device Surgical History History of bowel resection for diverticulitis; w/colostomy placement for 3-4 months History of cardiac cath ~3 years ago, SOB and "felt like throat was constricting", had "silent heart attack", x2 stents, done in [place] History of colostomy reversal History of esophagogastroduodenoscopy (EGD) History of heart artery stent ~3 years ago, x2 stents, done in [place]; f/u dr guerra, [place]>will be seeing new cardio at [place] week of August 2022. Hx of Achilles tendon repair rt. Hx of bilateral cataract extraction Hx of colonoscopy Last Colonoscopy 08/14/22, repeat 3 years in 2025 Hx of hernia repair near former colostomy site Hx of knee surgery rt. patellar tendon repair Hx of rotator cuff surgery bilateral Hx of total hip arthroplasty rt. Hx of total knee replacement lt. Family History Grandmother (Maternal) Diabetes Daughter Diabetes Father Suicide Hypertension Denies family history of Ovarian cancer Prostate cancer Myocardial infarction Breast cancer Lung cancer Colorectal cancer Stroke Social History Smoking Status: Never smoker Second Hand Exposure: No; Do You Dip or Chew Tobacco: No; Hx Alcohol Use: No Hx Substance Use: No Preferred Language: Faroese Communication Ability: Effective Visual Impairment: No Limitations Hearing Ability: Normal Accident Investigator Required: No Beliefs That Will Affect Care: None marital status: Single Current Living Situation: [facility] current occupational status: retired How many Children do You have: 2 Feels Safe at Home: Yes Childhood Exposure to Second-Hand Smoke: Yes caffeine: Yes Dental Care, Regularly: Yes Physical Activity Frequency: Does not Exercise Seatbelt Use: always Sunscreen Use: Yes Assistive Devices: Glasses, Walker and Wheelchair Physical Exam Physical Exam: Physical Exam: General: In no acute distress, stated age, well-nourished, good hygiene, non- toxic appearing HEENT: Normocephalic, atraumatic, no scleral icterus, pupils around round, symmetrical, and reactive to light, moist mucus membranes, trachea midline, no thyromegaly Chest/Pulm: No respiratory distress, symmetrical chest expansion, clear breath sounds throughout Cardiac: RRR, no murmurs noted Abdomen: Negative for ascites and bruising, no current incarcerated abdominal hernias noted in inspection, normoactive bowel sounds, soft, tender to palpation in the lower abdominal hathaway Musculoskeletal: Symmetrical and without signs of acute trauma, upper and lower extremities with full ROM, no atrophy, spasticity, or flaccidity Extremities: Radial, dorsalis pedis, and posterior tibial pulses are intact and symmetrical, no edema noted in the BL LE's Skin: Warm, dry, no rashes , lesions, or scars noted Neuro: Alert and oriented to person, place, month, year, and president, no focal defects, no tremors noted Psych: No acute distress, calm and cooperative during the exam Results & Data Results & Data Vital Signs (Past 12 Hours) Vital Signs Temp Pulse Pulse Resp BP BP Pulse Ox 01/13/23 19:05 60 15 146/79 H 99 01/13/23 18:34 59 L 01/13/23 18:27 98 01/13/23 18:27 37.1 C 64 15 156/86 H 98 O2 Del Method 01/13/23 19:05 Room Air 01/13/23 18:34 01/13/23 18:27 Room Air 01/13/23 18:27 Room Air Laboratory Results Abnormal lab results 01/13/23 01/13/23 01/13/23 Range/Units 18:37 18:37 20:22 RBC 3.37 L (4.70-6.10) M/uL Hgb 9.7 L (14.0-18.0) g/dl Hct 29.9 L (42.0-52.0) % RDW Std Deviation 52.4 H (36.4-46.3) fL RDW Coeff of Sammie 16.2 H (11.5-14.5) % [place] # (Auto) 0.86 H (0.11-0.59) K/uL Sodium 134 L (136-145) mmol/L BUN 26 H (6-23) mg/dl BUN/Creatinine Ratio 22.0 H (10-20) Glucose 111 H (70-99(Fasting)) mg/dl Globulin 2.4 L (2.5-4.0) gm/dl Ur Specific [place] > 1.045 H (1.000-1.030) Diagnostic Findings CT abd pelvis oral and IV con CLINICAL HISTORY: R10.30 - Lower abdominal pain, unspecified TECHNIQUE: Helical axial images of the abdomen and pelvis were obtained and displayed. Automated dose lowering techniques and/or adjustment according to patient size were utilized for this exam. This exam was performed with intravenous contrast. CT DOSE: 1403.48 mGy.cm COMPARISON: None available at the time of this dictation. FINDINGS: Lower chest: Bibasilar atelectasis versus scarring is seen. Liver: Unremarkable. No focal lesions are seen. Gallbladder and biliary tree: No calcified gallstones. Normal caliber wall. No intra- or extrahepatic biliary ductal dilation. Pancreas: Unremarkable, no focal lesions. Spleen: Calcifications are noted in the spleen compatible with prior granulomatous disease. Adrenals: Unremarkable. Kidneys and ureters: Renal cysts are seen. Bladder: Unremarkable. Reproductive organs: Unremarkable. Bowel: Postsurgical changes of sigmoid colon resection. Diverticulosis is seen without diverticulitis. Patient is status post appendicitis. There is a right of midline hernia containing a loop of bowel. The proximal small bowel is dilated. Lymph nodes Retroperitoneal: Subcentimeter lymph nodes are noted. Pelvic: Unremarkable. Mesenteric: Unremarkable. Peritoneum: Normal. Vessels: Unremarkable. Abdominal wall: Fat-containing midline and left-sided hernias and fat and bowel containing right of midline hernia are seen. Bones: Degenerative changes in the visualized spine. There are pars defects at L5-S1 with grade 2 anterolisthesis. Right hip total arthroplasty is seen. IMPRESSION: There is a loop of small bowel in a right-sided hernia with proximal bowel dilation. This may be the source of lower abdominal pain. Incarcerated hernia cannot be excluded, correlation with physical exam is recommended. Additional findings as above. ACT 112: Negative or not required by law. Electronically signed by: Ramón You M.D. 01/13/2023 5:29 PM Dictated:01/13/231711 Transcribed: 01/13/231711 ECG Additional Comments: Will obtain ECG on admission Code Status & VTE Plan Code Status Full code VTE Prophylaxis Plan VTE Prophylaxis will be ordered: Yes Supervising Physician Co-Signing Physician Notes Patient seen and examined, chart reviewed, case discussed with JOSE Mercado and I agree with the assessment and plan as documented above. In brief, patient is a 77yo male with history of CAD s/p stent placement in 2016, PAF on Amiodarone/Metoprolol and Eliquis anticoagulation and HFpEF as well as RA on Rinvoq presenting with abdominal pain. He had a CT performed in the outpatient setting which was concerning for a possible incarcerated hernia. Has had prior bowel surgeries including a bowel resection for diverticulitis prior colostomy with subsequent reversal as well as repair of a hernia at the prior colostomy site. Patient still with abdominal pain, 5/10 at present after Morphine. Patient was seen by General Surgery in the ER who are planning to take him non- urgently to the OR. In the ER he is afebrile, HD stable, NAD Skin - warm, dry, intact, no rashes/lesions HEENT - NC/AT, PERRL, MMM, neck supple Heart - +S1/S2, regular, no m/r/g Lungs - CTA Abd - +BS, soft, tender in mid abdomen with possible hernias Ext - warm, well perfused Neuro - no acute deficits Labs and images reviewed Assessment/Plan- Incisional hernia, progressive abdominal pain and constipation. Seen by General Surgery with attempted reduction unsuccessful. Plan for OR in AM or next day. Will hold Eliquis, Lisinopril and Rinvoq Cardiology consultation per request for pre-operative clearance. Patient does not endorse active exertional cardiac symptoms. HFpEF is compensated. Appears to be in NSR. He had a stress test performed in August 2022 which was negative for inducible ischemia. Remainder of plan as above PG Care Time/CCT Total # of Minutes Spent Total Time Spent with Patient: Total time spent is greater than 50% in coordination of care (as documented) at patient's floor/unit and/or counseling patient: [place] [address] INT INP/OBS CARE 3/75MIN Patient Type Established Medical Decision Making High Complexity Diagnoses Incisional hernia K43.2 Atrial fibrillation I48.91 HFrEF (heart failure with reduced ejection fraction) I50.20 Hypertension I10 Anxiety and depression F41.9; F32.A Rheumatoid arthritis M06.9 Coronary artery disease I25.10 GERD (gastroesophageal reflux disease) K21.9
[2023-01-13 20:34] LABS: Appearance Urine Clear (Clear); Bilirubin Urine Negative (Negative); Blood Urine Negative (Negative); Color Urine Dark Yellow; Glucose Urine UA Negative (Negative); Ketones Urine Negative (Negative); Leukocyte Esterase Urine Negative (Negative); Nitrite Urine Negative (Negative); Protein Urine Negative (Negative); Specific Gravity Urine > 1.045 (1.000-1.030); Urobilinogen Urine Negative (Negative); pH Urine 5.5 (4.5-7.5)
[2023-01-13] MEDS ORDERED: FAMOTIDINE 20MG/5ML IV PUSH IV ONE (20:40)
[2023-01-13] MEDS: LACTATED RINGER'S 1,000 ML IV SCH (20:45)
[2023-01-13] MEDS ORDERED: FAMOTIDINE 20 MG in SYRINGE 3 ML IV SCH (21:00)
[2023-01-13] MEDS: MoRPHine SULFATE 2 MG/ML CARP IV PRN (21:27)
[2023-01-13] MEDS: METOPROLOL TARTRATE 25 MG TAB PO SCH (23:00)
[2023-01-13] MEDS: RANOLAZINE 500 MG ER TAB PO SCH (23:01)
[2023-01-13] MEDS: TRAVOPROST Z 0.004% OPH SOLN 2.5 ML BTL OPB SCH (23:01)
[2023-01-13] MEDS: GABAPENTIN 300 MG CAP PO SCH (23:24)
[2023-01-14] MEDS: SENNA 8.6 MG TAB PO SCH ×3 (00:05→21:15)
[2023-01-14] MEDS: PRAVASTATIN SOD 40 MG TAB PO SCH ×2 (00:05→21:15)
[2023-01-14] MEDS: ACETAMINOPHEN 325 MG TAB PO PRN ×3 (00:05→21:25)
[2023-01-14] MEDS: MoRPHine SULFATE 2 MG/ML CARP IV PRN ×3 (00:09→11:04)
[2023-01-14] MEDS ORDERED: MELATONIN 3 MG TAB PO STA (04:32)
--- NOTE | 2023-01-14 07:52 | Hospitalist Progress Note ---
Date of Service January 14, 2023 Assessment & Plan (1) Incisional hernia: Plan: Had been having progressive abdominal pain with associated constipation and nausea over the past 4 days as outpatient Ordered CTAP by outpatient provider which showed: There is a loop of small bowel in a right-sided hernia with proximal bowel dilation. This may be the source of lower abdominal pain. Incarcerated hernia cannot be excluded, correlation with physical exam is recommended. Additional findings as above. General surgery consulted -- yet to see this morning but planning on surgical corrections while inpatient. Hernia recurred but no evidence of strangulation on exam at present (hx diverticulitis req resection >10 years ago) Holding eliquis (last dose 01/13) IVF @ 80cc/hr for now while NPO NPO x meds pain control, antiemetics prn Cardiology consulted for clearance as well (prior dobutamine stress echo NEGATIVE in August earlier this year) Continues on ASA given hx TRUDY in 2016 Monitor lab on repeat (2) Atrial fibrillation: Plan: Stable. EKG on admission w/ NSR, IVCD. Nonspec T wave abn in lateral leads improved compared to prior Remains on amiodarone/metoprolol Holding eliquis in preparation for OR (last dose 01/13) EKG w/ CP Cardiology consulted for pre-op clearance as above 2gm Mag IV ordered given mag 1.7 on AM labs-- Keep Mag/K replete (3) HFrEF (heart failure with reduced ejection fraction): Plan: Euvolemic on admission , holding lasix while NPO. IVF ordered as above. continues on imdur Monitor weights / I&Os Cautious monitoring for volume overload (4) Hypertension: Plan: Stable Hold lisinopril for now to prevent ryan-operative hypotension -- if no plans for surgery today can resume and place on hold for tomorrow BP currently 135/79 (5) Anxiety and depression: Plan: Continue Duloxetine (6) Rheumatoid arthritis: Plan: Will hold rinvoq in the ryan-operative period (7) Coronary artery disease: Plan: -Stable -Conitnue aspirin and ranolazine NO CP reported at present (8) GERD (gastroesophageal reflux disease): Plan: Will switch him to scheduled daily IV famotidine while NPO --> Home medications listing omeprazole daily -- will change to protonix once daily while NPO instead of pepcid Plan Continued inpatient stay Cardiology consulted for cardiac clearance NPO for possible surgery today vs tomorrow -- timing TBD by surgery Admission and Anticipated Discharge Date Admission Date: January 13, 2023 Supervising Physician Co-Signing Physician Notes The patient was not seen by me. The chart was reviewed. Case discussed with ISREAL Montenegro. Agree with assessment and plan Subjective Eval this morning, doing alright. Pain 7/10 at present, has recurred. Hx diverticulitis/resection >10 years ago. Ongoing issues w/ pain since this past weekend. Hopeful for surgery, unsure on timing. Will get ahold of surgery to see if potentially today vs tomorrow. Discussed warning signs to alert if occur - had not been discussed prior. Given stool softener/stimulant and states passing gas at present but no bowel movement. No CP/SOB at present. Questions/concerns addressed. Saw surgery PA, has not seen yet but will determine plan this morning once seen. Physical Exam Physical Exam: General: WD/WN male sitting up in bed, NAD but mildly uncomfortable w/ position changes HEENT: head normocephalic, atraumatic, mmm, trachea midline Resp: CTA, slightly diminished in the bases, no w/c, on room air CV: RRR, no significant m/r/g, no pitting edema GI: +BS, slight distension, prior surgical incisions noted, well healed, +incisional hernia on the right, reducible, no warmth/erythema at present : no song MSK/Neuro: no focal deficits, no slurred speech, answering questions appropriately Psych: AOx3, cooperative with exam, no active SI/HI noted Results & Data Results & Data Vital Signs (Past 12 Hours) Vital Signs Temp Pulse Pulse Resp BP Pulse Ox O2 Del Method 01/14/23 06:56 36.8 C 66 16 102/53 L 92 Room Air 01/13/23 23:34 Room Air 01/13/23 23:34 37 C 71 14 137/68 95 Room Air 01/13/23 21:52 Room Air 01/13/23 21:00 62 16 161/89 H 95 Room Air Laboratory Results 01/13/23 01/13/23 01/13/23 Range/Units 20:22 18:38 18:37 WBC (4.8-10.8) K/ul RBC (4.70-6.10) M/uL Hgb (14.0-18.0) g/dl Hct (42.0-52.0) % MCV (80.0-100.0) fL MCH (25.0-34.0) pg MCHC (32.0-36.0) g/dL RDW Std Deviation (36.4-46.3) fL RDW Coeff of Sammie (11.5-14.5) % Plt Count (130-400) K/uL MPV (9.4-12.4) fL Immature Gran % (Auto) % Neut % (Auto) % Lymph % (Auto) % [place] % (Auto) % Eos % (Auto) % Baso % (Auto) % Neut # (Auto) (1.40-6.50) K/uL Lymph # (Auto) (1.2-3.4) K/uL [place] # (Auto) (0.11-0.59) K/uL Eos # (Auto) (0-0.50) K/uL Baso # (Auto) (0-0.2) K/uL Immature Gran # (Auto) (0.01-0.20) K/uL Sodium 134 L (136-145) mmol/L Potassium 4.4 (3.5-5.1) mmol/L Chloride 103 (98-107) mmol/L Carbon Dioxide 25 (21-32) mmol/L Anion Gap 6 (3-11) BUN 26 H (6-23) mg/dl Creatinine 1.18 (0.6-1.4) mg/dl Est Cr Clr Drug Dosing 65.0 ml/min Est GFR ( Amer) 67.6 ml/min Est GFR (Non-Af Amer) 58.3 ml/min BUN/Creatinine Ratio 22.0 H (10-20) Glucose 111 H (70-99(Fasting)) mg/dl Calcium 8.7 (8.6-10.3) mg/dl Total Bilirubin 0.5 (0.2-1.0) mg/dl AST 26 (13-39) U/L ALT 20 (7-52) U/L Alkaline Phosphatase 61 (34-104) U/L Total Protein 6.2 (6.0-8.3) gm/dl Albumin 3.8 (3.4-5.0) gm/dl Globulin 2.4 L (2.5-4.0) gm/dl Albumin/Globulin Ratio 1.6 (0.9-2) Lipase 30 (11-82) U/L Urine Color Dark Yellow Urine Appearance Clear (Clear) Urine pH 5.5 (4.5-7.5) Ur Specific [place] > 1.045 H (1.000-1.030) Urine Protein Negative (Negative) Urine Glucose (UA) Negative (Negative) Urine Ketones Negative (Negative) Urine Blood Negative (Negative) Urine Nitrite Negative (Negative) Urine Bilirubin Negative (Negative) Urine Urobilinogen Negative (Negative) Ur Leukocyte Esterase Negative (Negative) SARS-CoV-2, RNA, NAAT NEGATIVE (NEGATIVE) 01/13/23 Range/Units 18:37 WBC 5.87 (4.8-10.8) K/ul RBC 3.37 L (4.70-6.10) M/uL Hgb 9.7 L (14.0-18.0) g/dl Hct 29.9 L (42.0-52.0) % MCV 88.7 (80.0-100.0) fL MCH 28.8 (25.0-34.0) pg MCHC 32.4 (32.0-36.0) g/dL RDW Std Deviation 52.4 H (36.4-46.3) fL RDW Coeff of Sammie 16.2 H (11.5-14.5) % Plt Count 221 (130-400) K/uL MPV 10.3 (9.4-12.4) fL Immature Gran % (Auto) 0.3 % Neut % (Auto) 61.2 % Lymph % (Auto) 22.5 % [place] % (Auto) 14.7 % Eos % (Auto) 1.0 % Baso % (Auto) 0.3 % Neut # (Auto) 3.59 (1.40-6.50) K/uL Lymph # (Auto) 1.32 (1.2-3.4) K/uL [place] # (Auto) 0.86 H (0.11-0.59) K/uL Eos # (Auto) 0.06 (0-0.50) K/uL Baso # (Auto) 0.02 (0-0.2) K/uL Immature Gran # (Auto) 0.02 (0.01-0.20) K/uL Sodium (136-145) mmol/L Potassium (3.5-5.1) mmol/L Chloride (98-107) mmol/L Carbon Dioxide (21-32) mmol/L Anion Gap (3-11) BUN (6-23) mg/dl Creatinine (0.6-1.4) mg/dl Est Cr Clr Drug Dosing ml/min Est GFR ( Amer) ml/min Est GFR (Non-Af Amer) ml/min BUN/Creatinine Ratio (10-20) Glucose (70-99(Fasting)) mg/dl Calcium (8.6-10.3) mg/dl Total Bilirubin (0.2-1.0) mg/dl AST (13-39) U/L ALT (7-52) U/L Alkaline Phosphatase (34-104) U/L Total Protein (6.0-8.3) gm/dl Albumin (3.4-5.0) gm/dl Globulin (2.5-4.0) gm/dl Albumin/Globulin Ratio (0.9-2) Lipase (11-82) U/L Urine Color Urine Appearance (Clear) Urine pH (4.5-7.5) Ur Specific [place] (1.000-1.030) Urine Protein (Negative) Urine Glucose (UA) (Negative) Urine Ketones (Negative) Urine Blood (Negative) Urine Nitrite (Negative) Urine Bilirubin (Negative) Urine Urobilinogen (Negative) Ur Leukocyte Esterase (Negative) SARS-CoV-2, RNA, NAAT (NEGATIVE) Diagnostic Findings Chest X-Ray 01/13/23 20:25 XR chest 1V portable CLINICAL HISTORY: clearance for OR with general surgery TECHNIQUE: Single frontal radiograph of the chest was obtained. Comparison: Comparison is made to chest radiograph 11/28/2022 FINDINGS: No lines and tubes are seen. The cardiomediastinal silhouette is normal. The lungs are clear. No evidence of pleural effusion or pneumothorax. IMPRESSION: No acute chest disease. ACT 112: Negative or not required by law. Electronically signed by: Ramón You M.D. 01/14/2023 8:08 AM PG Care Time/CCT Total # of Minutes Spent Total Time Spent with Patient: Total time spent is greater than 50% in coordination of care (as documented) at patient's floor/unit and/or counseling patient: Coding Level of Care Code 61152 SUB INP/OBS CARE MIN Diagnoses Incisional hernia K43.2 Atrial fibrillation I48.91 HFrEF (heart failure with reduced ejection fraction) I50.20 Hypertension I10 Anxiety and depression F41.9; F32.A Rheumatoid arthritis M06.9 Coronary artery disease I25.10 GERD (gastroesophageal reflux disease) K21.9
--- NOTE | 2023-01-14 08:10 | XRay Report ---
XR chest 1V portable CLINICAL HISTORY: clearance for OR with general surgery TECHNIQUE: Single frontal radiograph of the chest was obtained. Comparison: Comparison is made to chest radiograph 11/28/2022 FINDINGS: No lines and tubes are seen. The cardiomediastinal silhouette is normal. The lungs are clear. No evid ence of pleural effusion or pneumothorax. IMPRESSION: No acute chest disease. ACT 112: Negative or not required by law. Electronically signed by: Ramón You M.D. 01/14/2023 8:08 AM
[2023-01-14] MEDS: LACTATED RINGER'S 1,000 ML IV SCH ×2 (08:35→21:00)
[2023-01-14] MEDS: AMIODARONE 200 MG TAB PO SCH (08:40)
[2023-01-14] MEDS: DULoxetine HCL 60 MG CAP PO SCH (08:40)
[2023-01-14] MEDS: ASPIRIN 81 MG ECTAB PO SCH (08:40)
[2023-01-14] MEDS: RANOLAZINE 500 MG ER TAB PO SCH ×2 (08:40→21:15)
[2023-01-14] MEDS: ISOSORBIDE MONO EXTENDED REL 60 MG TABCR PO SCH (08:40)
[2023-01-14] MEDS: GABAPENTIN 300 MG CAP PO SCH ×2 (08:40→21:14)
[2023-01-14] MEDS: METOPROLOL TARTRATE 25 MG TAB PO SCH ×2 (08:40→21:19)
[2023-01-14 08:42] LABS: Basophils # (auto) 0.03 K/uL (0-0.2); Basophils % (auto) 0.6 %; Eosinophils # (auto) 0.07 K/uL (0-0.50); Eosinophils % (auto) 1.5 %; Hemoglobin 9.3 g/dl (14.0-18.0); Immature Granulocytes # (auto) 0.01 K/uL (0.01-0.20); Immature Granulocytes % (auto) 0.2 %; Lymphocytes # (auto) 0.93 K/uL (1.2-3.4); Lymphocytes % (auto) 19.4 %; Mean Corpuscular Hemoglobin 28.2 pg (25.0-34.0); Mean Corpuscular Hgb Conc 32.1 g/dL (32.0-36.0); Mean Corpuscular Volume 87.9 fL (80.0-100.0); Monocytes # (auto) 0.91 K/uL (0.11-0.59); Neutrophils # (auto) 2.84 K/uL (1.40-6.50); Neutrophils % (auto) 59.3 %; Platelet Count 202 K/uL (130-400); RDW Coefficient of Variation 16.2 % (11.5-14.5); White Blood Count 4.79 K/ul (4.8-10.8)
[2023-01-14 09:00] LABS: Albumin Globulin Ratio 1.5 (0.9-2); Albumin Level 3.4 gm/dl (3.4-5.0); BUN Creatinine Ratio 19.6 (10-20); Bilirubin,Total 0.6 mg/dl (0.2-1.0); Calcium 8.3 mg/dl (8.6-10.3); Creatinine Clr Calc Pharmacy 67.4 ml/min; Est GFR (Non-African American) 62.1 ml/min; Globulin 2.2 gm/dl (2.5-4.0); Magnesium 1.7 mg/dl (1.7-2.4); Total Protein 5.6 gm/dl (6.0-8.3)
[2023-01-14 09:07] LABS: Prothrombin Time 11.4 Seconds (9.0-12.0)
[2023-01-14] MEDS: MAGNESIUM SULFATE / D5W 1 GM/100 ML BAG IV SCH ×2 (10:31→12:02)
[2023-01-14] MEDS: PANTOprazole 40 MG in SYRINGE 0 ML IV SCH (14:06)
--- NOTE | 2023-01-14 14:14 | Electrocardiogram Report ---
Test Reason : Blood Pressure : / mmHG Vent. Rate : 060 BPM Atrial Rate : 060 BPM P-R Int : 204 ms QRS Dur : 124 ms QT Int : 454 ms P-R-T Axes : 045 -35 038 degrees QTc Int : 454 ms Normal sinus rhythm Left axis deviation Non-specific intra-ventricular conduction delay Nonspecific T wave abnormality Abnormal ECG When compared with ECG of 28-NOV-2022 08:40, Nonspecific T wave abnormality, improved in Lateral leads Confirmed by Indio Beauchamp ([id number]) on 01/14/2023 2:14:16 PM Referred By: REFERRED SELF Confirmed By:Mikhail Beauchamp
--- NOTE | 2023-01-14 14:16 | Cardiology Consultation ---
Date of Consultation January 14, 2023 Assessment & Plan (1) Pre-operative cardiovascular examination, myocardial ischemia: Patient is undergoing an intermediate risk procedure. His clinical markers are intermediate to high risk. However, his dobutamine stress echo suggests low risk for myocardial ischemic complication of noncardiac surgery. Also, his EF is normal on medication. Additionally, he recently underwent general anesthesia without any cardiac complications. There has been no change in his clinical status since that time. Per AHA/ACC guidelines he should proceed with the planned surgery. Perioperative beta-pato recommended. We will be happy to assist in any post operative cardiac care. (2) Atrial fibrillation: This is paroxysmal. Still takes amiodarone 200 mg daily for rhythm control and Eliquis 2.5 mg p.o. twice daily for anticoagulation. No changes for now. I favor discontinuation of amiodarone and initiation of higher dose beta-pato for rate control but this will be done as an outpatient. (3) HFrEF (heart failure with reduced ejection fraction): EF improved on medications. No evidence of volume overload at this time. Caution with volume resuscitation. Continue Lasix 20 mg daily as needed for weight gain. Continue lisinopril and metoprolol tartrate (4) Hypertension: Blood pressure is adequately controlled at this time. Continue current regimen. (5) Coronary artery disease: Remote without angina at this time. Guideline directed medical therapy shall continue with low-dose aspirin, beta-pato, statin, and MARITZA inhibitor. 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 Continue pravastatin 40 mg daily for plaque stabilization and LDL reduction. History of Present Illness Reason for Consultation: Preoperative cardiovascular risk assessment Attending Physician: Margi Betts DO History of Present Illness 77-year-old gentleman whom I see for paroxysmal atrial fibrillation, history of heart failure with reduced ejection fraction (EF 40 to 45% improved to 60%), coronary artery disease with prior stent (details unknown), hypertension, and atherogenic dyslipidemia. He is to undergo surgery for hernia repair and I have been asked to provide cardiovascular risk assessment. About a month ago patient underwent orthopedic surgery without complications. Unfortunately, he has developed an incarcerated hernia which will require surgery. He underwent stress testing prior to his orthopedic surgery which suggested low risk findings. Today, he tells me he has had no anginal chest pain, shortness of breath, syncope, near syncope, orthopnea, PND, racing heartbeat, or palpitations. He does have chronic baseline lower extremity edema which tends to be mild and for which he uses compression stockings. No other complaints or concerns at this time. Allergies Allergy/AdvReac Type Severity Reaction Status Date / Time cat dander Allergy Severe Swelling Verified 01/13/23 19:44 of Lip/Tongue/Throat Home Medications Medication Instructions Recorded Confirmed Type sennosides 8.6 mg capsule (senna) 8.6 mg PO [facility] 06/19/22 01/13/23 History nitroglycerin 0.4 mg sublingual 0.4 mg sublingual Q5M PRN chest 07/23/22 01/13/23 Rx tablet pain #30 tabs amiodarone 200 mg tablet 200 mg PO QA 08/07/22 01/13/23 History ascorbic acid (vitamin C) 500 mg 1,000 mg PO [facility] 08/07/22 01/13/23 History capsule aspirin 81 mg tablet,delayed 81 mg PO [facility] 08/07/22 01/13/23 History release (Adult Low Dose Aspirin) coenzyme Q10 100 mg capsule 10 mg PO [facility] 08/07/22 01/13/23 History esomeprazole magnesium 40 mg 40 mg PO 08/07/22 01/13/23 History capsule,delayed release (Nexium) isosorbide mononitrate 60 mg 60 mg PO [facility] 08/07/22 01/13/23 History tablet,extended release 24 hr lactobacillus combination no.9 4 6,000 mmu cells PO [facility] 08/07/22 01/13/23 History billion cell capsule (Adult 50 Plus Probiotic) lisinopril 10 mg tablet 10 mg PO [facility] 08/07/22 01/13/23 History melatonin 5 mg capsule 5 mg PO 08/07/22 01/13/23 History muaxxqie-bbbgxak-zkyx-lutein tablet 1 tab PO QAM 08/07/22 01/13/23 History apixaban 2.5 mg tablet (Eliquis) 2.5 mg PO BID 08/30/22 01/13/23 History cholecalciferol (vitamin D3) 250 250 mcg PO DAILY 90 days #90 tabs 09/19/22 01/13/23 Rx mcg (10,000 unit) tablet metoprolol tartrate 25 mg tablet 12.5 mg PO BID #60 tabs 10/03/22 01/13/23 Rx upadacitinib 15 mg tablet,extended 15 mg PO QAM 10/15/22 01/13/23 History release 24 hr (Rinvoq) acetaminophen 500 mg capsule 1,000 mg PO TID 11/11/22 01/13/23 History omega 5-zwk-zmz-fish oil 1,000 mg 1 cap PO QAM #30 caps 12/15/22 01/13/23 Rx (120 mg-180 mg) capsule (Fish Oil) clobetasol 0.05 % topical cream 1 applic topical BID 2 weeks #30 12/25/22 01/13/23 Rx grams furosemide 20 mg tablet 20 mg PO DAILY PRN edema or weight 12/25/22 01/13/23 Rx gain #30 tabs duloxetine 60 mg capsule,delayed 60 mg PO DAILY #90 caps 01/01/23 01/13/23 Rx release gabapentin 300 mg capsule 300 mg PO TID 01/13/23 01/13/23 History pravastatin 40 mg tablet 40 mg PO HS 01/13/23 01/13/23 History ranolazine 500 mg tablet,extended 500 mg PO BID 01/13/23 01/13/23 History release,12 hr travoprost 0.004 % eye drops 1 drp OPB QPM 01/13/23 01/13/23 History (Travatan Z) Patient History Medical History Anxiety and depression Atrial fibrillation episode occurred in 03/2022, taken to [facility] in [place], admitted to ICU for 1-2 weeks (was not intubated, but wasn't "awake either"), then to cardiac unit, then to rehab at [facility]; f/u dr. guerra in [place]>will be starting to see a protection specialist at [facility] 2nd week of 08/2022 Benign essential hypertension Coronary artery disease GERD (gastroesophageal reflux disease) Heart failure with preserved ejection fraction Hx of staphylococcal infection 03/2022, w/"bacterial infection" at the same, in the rt. knee, occurrred during atrial fibrillation episode. "when he woke up, he couldn't walk." Hypomagnesemia Incisional hernia Lumbar radiculopathy Lumbar stenosis Myocardial Infarction "a silent one, about 3 years ago" Pneumonia Respiratory failure with hypoxia Rheumatoid arthritis Sepsis Septicemia due to Streptococcus pneumoniae Sleep apnea no device Surgical History History of bowel resection for diverticulitis; w/colostomy placement for 3-4 months History of cardiac cath ~3 years ago, SOB and "felt like throat was constricting", had "silent heart attack", x2 stents, done in [place] History of colostomy reversal History of esophagogastroduodenoscopy (EGD) History of heart artery stent ~3 years ago, x2 stents, done in [place]; f/u dr guerra, [place]>will be seeing new cardio at [place] week of August 2022. Hx of Achilles tendon repair rt. Hx of bilateral cataract extraction Hx of colonoscopy Last Colonoscopy 08/14/22, repeat 3 years in 2025 Hx of hernia repair near former colostomy site Hx of knee surgery rt. patellar tendon repair Hx of rotator cuff surgery bilateral Hx of total hip arthroplasty rt. Hx of total knee replacement lt. Family History Grandmother (Maternal) Diabetes Daughter Diabetes Father Suicide Hypertension Denies family history of Ovarian cancer Prostate cancer Myocardial infarction Breast cancer Lung cancer Colorectal cancer Stroke Social History Smoking Status: Never smoker Second Hand Exposure: No; Do You Dip or Chew Tobacco: No; Hx Alcohol Use: Yes Alcohol type: wine Alcohol Intake Frequency: 4 or More x per/Week Hx Substance Use: No Preferred Language: German Communication Ability: Effective Visual Impairment: No Limitations Hearing Ability: Normal [employer]illing [employer] Required: No Beliefs That Will Affect Care: None marital status: Single Current Living Situation: Personal Care Facility Current Living Situation Comment: [facility] current occupational status: retired How many Children do You have: 2 Other Information That Helps Us Care for You: No Feels Safe at Home: Yes Safety Concerns: Feels Safe At This Time Childhood Exposure to Second-Hand Smoke: Yes caffeine: Yes Dental Care, Regularly: Yes Physical Activity Frequency: Does not Exercise Seatbelt Use: always Sunscreen Use: Yes Assistive Devices: Cane, Walker and Wheelchair Review of Systems Review of Systems: Negative except as per HPI. Remote history of GI bleed. Physical Exam Constitutional: WD/WN, vitals as above (Obese) Eyes: Extraocular muscles intact. Sclera are anicteric ENMT: Oral mucosa is pink moist and intact Neck: No JVD Respiratory: Clear to auscultation bilaterally. No wheezing, rhonchi, or rales Cardiovascular: Regular rate and rhythm. S4 gallop. I do not appreciate any rubs or murmurs today. Trace bilateral lower extremity edema Musculoskeletal: no cyanosis or clubbing, extremities motor strength 5/5 Neurologic: Cognition is intact. Speech is fluent. No focal deficits. Psychiatric: A+Ox3, euthymic affect Results & Data Vital Signs (Past 12 Hours) Vital Signs Temp Pulse Resp BP Pulse Ox O2 Del Method 01/14/23 08:30 Room Air 01/14/23 08:39 66 135/79 01/14/23 06:56 36.8 C 66 16 102/53 L 92 Room Air PG Care Time/CCT Total # of Minutes Spent Total Time Spent with Patient: Total time spent is greater than 50% in coordination of care (as documented) at patient's floor/unit and/or counseling patient: Coding Level of Care Code 37785 INT INP/OBS CARE 3/75MIN Diagnoses Pre-operative cardiovascular examination, myocardial ischemia Z01.810; I25.9 Atrial fibrillation I48.91 HFrEF (heart failure with reduced ejection fraction) I50.20 Hypertension I10 Coronary artery disease I25.10 Atherogenic dyslipidemia E78.5
--- NOTE | 2023-01-14 16:03 | Surgery Progress Note ---
Date of Service January 14, 2023 Assessment & Plan (1) Incisional hernia: Plan: no signs of ischemia WBC normal vitals normal having significant pain and some dilated bowel Plan: Given persistent pain and hernia recurrence, likely needs surgical repair cardiology has seen patient and cleared for procedure Will plan for open incisional hernia repair with possible mesh tomorrow okay for clear liquids and NPO at midnight continue to hold Eliquis Continue medical management Dr. Aaron has seen and examined pt, agrees with above. Admission and Anticipated Discharge Date Admission Date: January 13, 2023 Subjective still having abdominal pain, mostly generalized and mid abdomen. Feels bloated no nausea passing gas, no bowel movement since Thursday. no chest pain or shortness of breath urinating without difficulty Physical Exam Constitutional: WD/WN, vitals as above + obese, cooperative and comfortable; no acute distress, not ill appearing, not in distress and not diaphoretic Respiratory: normal respiratory effort; no respiratory distress Gastrointestinal (Abdomen): Inspection/Auscultation: abdomen normal to inspection, + abdomen distended (mild distention), normal bowel sounds, + visible herniation (hernia at LLQ colostomy scar) and + abdominal surgical scar (midline laparotomy scar, LLQ colostomy scar) Percussion/Palpation: + abdomen tender (midline and just to right of midline at site of hernia), + guarding (voluntary at midline and when trying to reduce hernia) and + hernia (midline hernia with small hernia to right of midline scar) Hernia to right of midline scar at site of possible SBO reducible on exam but tender. LLQ colostomy incisional hernia reducible as well Skin: no rashes, warm and dry Psychiatric: A+Ox3, euthymic affect Results & Data Vital Signs (Past 12 Hours) Vital Signs Temp Pulse Resp BP Pulse Ox O2 Del Method 01/14/23 15:47 36.8 C 63 16 98/59 L 95 Room Air 01/14/23 08:30 Room Air 01/14/23 08:39 66 135/79 01/14/23 06:56 36.8 C 66 16 102/53 L 92 Room Air Laboratory Results 01/14/23 01/14/23 01/14/23 Range/Units 08:00 08:00 08:00 WBC 4.79 L (4.8-10.8) K/ul RBC 3.30 L (4.70-6.10) M/uL Hgb 9.3 L (14.0-18.0) g/dl Hct 29.0 L (42.0-52.0) % MCV 87.9 (80.0-100.0) fL MCH 28.2 (25.0-34.0) pg MCHC 32.1 (32.0-36.0) g/dL RDW Std Deviation 52.0 H (36.4-46.3) fL RDW Coeff of Sammie 16.2 H (11.5-14.5) % Plt Count 202 (130-400) K/uL MPV 10.0 (9.4-12.4) fL Immature Gran % (Auto) 0.2 % Neut % (Auto) 59.3 % Lymph % (Auto) 19.4 % [place] % (Auto) 19.0 % Eos % (Auto) 1.5 % Baso % (Auto) 0.6 % Neut # (Auto) 2.84 (1.40-6.50) K/uL Lymph # (Auto) 0.93 L (1.2-3.4) K/uL [place] # (Auto) 0.91 H (0.11-0.59) K/uL Eos # (Auto) 0.07 (0-0.50) K/uL Baso # (Auto) 0.03 (0-0.2) K/uL Immature Gran # (Auto) 0.01 (0.01-0.20) K/uL PT 11.4 (9.0-12.0) Seconds INR 1.0 (0.9-1.1) Sodium 136 (136-145) mmol/L Potassium 4.0 (3.5-5.1) mmol/L Chloride 106 (98-107) mmol/L Carbon Dioxide 25 (21-32) mmol/L Anion Gap 5 (3-11) BUN 22 (6-23) mg/dl Creatinine 1.12 (0.6-1.4) mg/dl Est Cr Clr Drug Dosing 67.4 ml/min Est GFR ( Amer) 72.0 ml/min Est GFR (Non-Af Amer) 62.1 ml/min BUN/Creatinine Ratio 19.6 (10-20) Glucose 93 (70-99(Fasting)) mg/dl Calcium 8.3 L (8.6-10.3) mg/dl Magnesium 1.7 (1.7-2.4) mg/dl Total Bilirubin 0.6 (0.2-1.0) mg/dl AST 22 (13-39) U/L ALT 17 (7-52) U/L Alkaline Phosphatase 48 (34-104) U/L Total Protein 5.6 L (6.0-8.3) gm/dl Albumin 3.4 (3.4-5.0) gm/dl Globulin 2.2 L (2.5-4.0) gm/dl Albumin/Globulin Ratio 1.5 (0.9-2) Lipase (11-82) U/L Urine Color Urine Appearance (Clear) Urine pH (4.5-7.5) Ur Specific [place] (1.000-1.030) Urine Protein (Negative) Urine Glucose (UA) (Negative) Urine Ketones (Negative) Urine Blood (Negative) Urine Nitrite (Negative) Urine Bilirubin (Negative) Urine Urobilinogen (Negative) Ur Leukocyte Esterase (Negative) SARS-CoV-2, RNA, NAAT (NEGATIVE) 01/13/23 01/13/23 01/13/23 Range/Units 20:22 18:38 18:37 WBC (4.8-10.8) K/ul RBC (4.70-6.10) M/uL Hgb (14.0-18.0) g/dl Hct (42.0-52.0) % MCV (80.0-100.0) fL MCH (25.0-34.0) pg MCHC (32.0-36.0) g/dL RDW Std Deviation (36.4-46.3) fL RDW Coeff of Sammie (11.5-14.5) % Plt Count (130-400) K/uL MPV (9.4-12.4) fL Immature Gran % (Auto) % Neut % (Auto) % Lymph % (Auto) % [place] % (Auto) % Eos % (Auto) % Baso % (Auto) % Neut # (Auto) (1.40-6.50) K/uL Lymph # (Auto) (1.2-3.4) K/uL [place] # (Auto) (0.11-0.59) K/uL Eos # (Auto) (0-0.50) K/uL Baso # (Auto) (0-0.2) K/uL Immature Gran # (Auto) (0.01-0.20) K/uL PT (9.0-12.0) Seconds INR (0.9-1.1) Sodium 134 L (136-145) mmol/L Potassium 4.4 (3.5-5.1) mmol/L Chloride 103 (98-107) mmol/L Carbon Dioxide 25 (21-32) mmol/L Anion Gap 6 (3-11) BUN 26 H (6-23) mg/dl Creatinine 1.18 (0.6-1.4) mg/dl Est Cr Clr Drug Dosing 65.0 ml/min Est GFR ( Amer) 67.6 ml/min Est GFR (Non-Af Amer) 58.3 ml/min BUN/Creatinine Ratio 22.0 H (10-20) Glucose 111 H (70-99(Fasting)) mg/dl Calcium 8.7 (8.6-10.3) mg/dl Magnesium (1.7-2.4) mg/dl Total Bilirubin 0.5 (0.2-1.0) mg/dl AST 26 (13-39) U/L ALT 20 (7-52) U/L Alkaline Phosphatase 61 (34-104) U/L Total Protein 6.2 (6.0-8.3) gm/dl Albumin 3.8 (3.4-5.0) gm/dl Globulin 2.4 L (2.5-4.0) gm/dl Albumin/Globulin Ratio 1.6 (0.9-2) Lipase 30 (11-82) U/L Urine Color Dark Yellow Urine Appearance Clear (Clear) Urine pH 5.5 (4.5-7.5) Ur Specific [place] > 1.045 H (1.000-1.030) Urine Protein Negative (Negative) Urine Glucose (UA) Negative (Negative) Urine Ketones Negative (Negative) Urine Blood Negative (Negative) Urine Nitrite Negative (Negative) Urine Bilirubin Negative (Negative) Urine Urobilinogen Negative (Negative) Ur Leukocyte Esterase Negative (Negative) SARS-CoV-2, RNA, NAAT NEGATIVE (NEGATIVE) 01/13/23 Range/Units 18:37 WBC 5.87 (4.8-10.8) K/ul RBC 3.37 L (4.70-6.10) M/uL Hgb 9.7 L (14.0-18.0) g/dl Hct 29.9 L (42.0-52.0) % MCV 88.7 (80.0-100.0) fL MCH 28.8 (25.0-34.0) pg MCHC 32.4 (32.0-36.0) g/dL RDW Std Deviation 52.4 H (36.4-46.3) fL RDW Coeff of Sammie 16.2 H (11.5-14.5) % Plt Count 221 (130-400) K/uL MPV 10.3 (9.4-12.4) fL Immature Gran % (Auto) 0.3 % Neut % (Auto) 61.2 % Lymph % (Auto) 22.5 % [place] % (Auto) 14.7 % Eos % (Auto) 1.0 % Baso % (Auto) 0.3 % Neut # (Auto) 3.59 (1.40-6.50) K/uL Lymph # (Auto) 1.32 (1.2-3.4) K/uL [place] # (Auto) 0.86 H (0.11-0.59) K/uL Eos # (Auto) 0.06 (0-0.50) K/uL Baso # (Auto) 0.02 (0-0.2) K/uL Immature Gran # (Auto) 0.02 (0.01-0.20) K/uL PT (9.0-12.0) Seconds INR (0.9-1.1) Sodium (136-145) mmol/L Potassium (3.5-5.1) mmol/L Chloride (98-107) mmol/L Carbon Dioxide (21-32) mmol/L Anion Gap (3-11) BUN (6-23) mg/dl Creatinine (0.6-1.4) mg/dl Est Cr Clr Drug Dosing ml/min Est GFR ( Amer) ml/min Est GFR (Non-Af Amer) ml/min BUN/Creatinine Ratio (10-20) Glucose (70-99(Fasting)) mg/dl Calcium (8.6-10.3) mg/dl Magnesium (1.7-2.4) mg/dl Total Bilirubin (0.2-1.0) mg/dl AST (13-39) U/L ALT (7-52) U/L Alkaline Phosphatase (34-104) U/L Total Protein (6.0-8.3) gm/dl Albumin (3.4-5.0) gm/dl Globulin (2.5-4.0) gm/dl Albumin/Globulin Ratio (0.9-2) Lipase (11-82) U/L Urine Color Urine Appearance (Clear) Urine pH (4.5-7.5) Ur Specific [place] (1.000-1.030) Urine Protein (Negative) Urine Glucose (UA) (Negative) Urine Ketones (Negative) Urine Blood (Negative) Urine Nitrite (Negative) Urine Bilirubin (Negative) Urine Urobilinogen (Negative) Ur Leukocyte Esterase (Negative) SARS-CoV-2, RNA, NAAT (NEGATIVE)
--- NOTE | 2023-01-14 17:22 | Anesthesiology Consultation ---
Date of Service January 14, 2023 Assessment & Plan Chart Review Chart Review: Acceptable Risk for Surgery and Patient NOT seen in Pre Admission Testing Consults Requested none Cardiology consult from 01/14/23 1) Pre-operative cardiovascular examination, myocardial ischemia: Patient is undergoing an intermediate risk procedure. His clinical markers are intermediate to high risk. However, his dobutamine stress echo suggests low risk for myocardial ischemic complication of noncardiac surgery. Also, his EF is normal on medication. Additionally, he recently underwent general anesthesia without any cardiac complications. There has been no change in his clinical status since that time. Per AHA/ACC guidelines he should proceed with the planned surgery. Perioperative beta-pato recommended. We will be happy to assist in any post operative cardiac care. (2) Atrial fibrillation: This is paroxysmal. Still takes amiodarone 200 mg daily for rhythm control and Eliquis 2.5 mg p.o. twice daily for anticoagulation. No changes for now. I favor discontinuation of amiodarone and initiation of higher dose beta-pato for rate control but this will be done as an outpatient. (3) HFrEF (heart failure with reduced ejection fraction): EF improved on medications. No evidence of volume overload at this time. Caution with volume resuscitation. Continue Lasix 20 mg daily as needed for weight gain. Continue lisinopril and metoprolol tartrate (4) Hypertension: Blood pressure is adequately controlled at this time. Continue current regimen. (5) Coronary artery disease: Remote without angina at this time. Guideline directed medical therapy shall continue with low-dose aspirin, beta-pato, statin, and MARITZA inhibitor. 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 Continue pravastatin 40 mg daily for plaque stabilization and LDL re duction. Teaching & Discussion flex/ex C-spine films pending for AA instability as pt has RA on immunomodulators History Surgery Operation Date: 01/15/23 11:15 Proposed Procedures p Open Incisional Hernia Repair - Rafy Aaron MD Height/Weight Height: 6 ft Weight: 106.4 kg Allergies Allergy/AdvReac Type Severity Reaction Status Date / Time cat dander Allergy Severe Swelling Verified 01/13/23 19:44 of Lip/Tongue/Throat Medications Home Medications Medication Instructions Recorded Confirmed Last Taken sennosides 8.6 mg capsule (senna) 8.6 mg PO AMHS 06/19/22 01/13/23 08/13/22 nitroglycerin 0.4 mg sublingual 0.4 mg sublingual Q5M PRN chest 07/23/22 01/13/23 Unknown tablet pain #30 tabs amiodarone 200 mg tablet 200 mg PO QA 08/07/22 01/13/23 08/13/22 ascorbic acid (vitamin C) 500 mg 1,000 mg PO QAM 08/07/22 01/13/23 08/13/22 capsule aspirin 81 mg tablet,delayed 81 mg PO QAM 08/07/22 01/13/23 08/13/22 release (Adult Low Dose Aspirin) coenzyme Q10 100 mg capsule 10 mg PO QAM 08/07/22 01/13/23 08/13/22 esomeprazole magnesium 40 mg 40 mg PO 08/07/22 01/13/23 08/13/22 capsule,delayed release (Nexium) isosorbide mononitrate 60 mg 60 mg PO QA 08/07/22 01/13/23 08/13/22 tablet,extended release 24 hr lactobacillus combination no.9 4 6,000 mmu cells PO QA 08/07/22 01/13/23 08/13/22 billion cell capsule (Adult 50 Plus Probiotic) lisinopril 10 mg tablet 10 mg PO QA 08/07/22 01/13/23 08/13/22 melatonin 5 mg capsule 5 mg PO 08/07/22 01/13/23 08/13/22 rmjpslpe-pispvlr-kvmr-lutein tablet 1 tab PO QAM 08/07/22 01/13/23 08/13/22 apixaban 2.5 mg tablet (Eliquis) 2.5 mg PO BID 08/30/22 01/13/23 Unknown cholecalciferol (vitamin D3) 250 250 mcg PO DAILY 90 days #90 tabs 09/19/22 01/13/23 Unknown mcg (10,000 unit) tablet metoprolol tartrate 25 mg tablet 12.5 mg PO BID #60 tabs 10/03/22 01/13/23 Unknown upadacitinib 15 mg tablet,extended 15 mg PO QAM 10/15/22 01/13/23 10/28/22 15:10 release 24 hr (Rinvoq) acetaminophen 500 mg capsule 1,000 mg PO TID 11/11/22 01/13/23 Unknown omega [id number]-[id number]-fish oil 1,000 mg 1 cap PO QAM #30 caps 12/15/22 01/13/23 Unknown (120 mg-180 mg) capsule (Fish Oil) clobetasol 0.05 % topical cream 1 applic topical BID 2 weeks #30 12/25/22 01/13/23 Unknown grams furosemide 20 mg tablet 20 mg PO DAILY PRN edema or weight 12/25/22 01/13/23 Unknown gain #30 tabs duloxetine 60 mg capsule,delayed 60 mg PO DAILY #90 caps 01/01/23 01/13/23 Unknown release gabapentin 300 mg capsule 300 mg PO TID 01/13/23 01/13/23 Unknown pravastatin 40 mg tablet 40 mg PO HS 01/13/23 01/13/23 Unknown ranolazine 500 mg tablet,extended 500 mg PO BID 01/13/23 01/13/23 Unknown release,12 hr travoprost 0.004 % eye drops 1 drp OPB QPM 01/13/23 01/13/23 Unknown (Travatan Z) Active Medications Generic Name Dose Route Start Last Admin Trade Name Freq PRN Reason Stop Dose Admin Acetaminophen 650 mg 01/13/23 23:38 01/14/23 08:45 Acetaminophen 325 Mg Tab PO 02/12/23 23:37 650 mg Q6H PRN Administration Pain or Fever Amiodarone HCl 200 mg 01/14/23 09:00 01/14/23 08:40 Amiodarone 200 Mg Tab PO 02/13/23 08:59 200 mg QAM ELDER Administration Aspirin 81 mg 01/14/23 09:00 01/14/23 08:40 Aspirin 81 Mg Ectab PO 02/13/23 08:59 81 mg QAM ELDER Administration Duloxetine HCl 60 mg 01/14/23 09:00 01/14/23 08:40 Duloxetine Hcl 60 Mg Cap PO 02/13/23 08:59 60 mg DAILY ELDER Administration Gabapentin 300 mg 01/13/23 23:00 01/14/23 08:40 Gabapentin 300 Mg Cap PO 01/15/23 21:01 300 mg BID ELDER Administration Pantoprazole Sodium 40 mg/ 10 mls @ 5 mls/min 01/14/23 13:00 01/14/23 14:06 Syringe IV 02/13/23 12:59 5 mls/min DAILY@1100 ELDER Administration Isosorbide Mononitrate 60 mg 01/14/23 09:00 01/14/23 08:40 Isosorbide Kings Extended Rel 60 Mg Tabcr PO 02/13/23 08:59 60 mg QAM ELDER Administration Metoprolol Tartrate 12.5 mg 01/13/23 22:11 01/14/23 08:40 Metoprolol Tartrate 25 Mg Tab PO 02/12/23 22:10 12.5 mg BID ELDER Administration Morphine Sulfate 2 mg 01/13/23 20:23 01/14/23 11:04 Morphine Sulfate 2 Mg/Ml Carp IV 01/27/23 20:22 2 mg Q3H PRN Administration Pain(5+) Pravastatin Sodium 40 mg 01/13/23 23:40 01/14/23 00:05 Pravastatin Sod 40 Mg Tab PO 02/12/23 23:39 40 mg HS ELDER Administration Ranolazine 500 mg 01/13/23 22:11 01/14/23 08:40 Ranolazine 500 Mg Er Tab PO 02/12/23 22:10 500 mg BID ELDER Administration Sennosides 8.6 mg 01/13/23 23:45 01/14/23 08:40 Senna 8.6 Mg Tab PO 02/12/23 23:44 8.6 mg BID ELDER Administration Travoprost 1 drops 01/13/23 22:11 01/13/23 23:01 Travoprost Z 0.004% Oph Soln 2.5 Ml Btl OPB 02/12/23 22:10 1 drops QPM ELDER Administration Past Medical History Medical History (Updated 01/14/23 @ 17:19 by Mercedes Moise DO) Anxiety and depression Atherogenic dyslipidemia Atrial fibrillation episode occurred in 03/2022, taken to [facility] in [place], admitted to ICU for 1-2 weeks (was not intubated, but wasn't "awake either"), then to cardiac unit, then to rehab at [facility]; f/u dr. ugerra in [place]>will be starting to see a clinic director at [facility] 2nd week of 08/2022 Benign essential hypertension Coronary artery disease GERD (gastroesophageal reflux disease) Heart failure with preserved ejection fraction HFrEF (heart failure with reduced ejection fraction) EF 40% Mar 2022, improved 55-60% August 2022 Hx of staphylococcal infection 03/2022, w/"bacterial infection" at the same, in the rt. knee, occurrred during atrial fibrillation episode. "when he woke up, he couldn't walk." Hypomagnesemia Incisional hernia Lumbar radiculopathy Lumbar stenosis Myocardial Infarction "a silent one, 2019" Pneumonia Respiratory failure with hypoxia Rheumatoid arthritis Sepsis Septicemia due to Streptococcus pneumoniae Sleep apnea no device Past Family History Family History Grandmother (Maternal) Diabetes Daughter Diabetes Father Suicide Hypertension Denies family history of Ovarian cancer Prostate cancer Myocardial infarction Breast cancer Lung cancer Colorectal cancer Stroke Past Surgical History Surgical History (Updated 01/14/23 @ 17:19 by Mercedes Moise DO) History of bowel resection for diverticulitis; w/colostomy placement for 3-4 months History of cardiac cath ~3 years ago, SOB and "felt like throat was constricting", had "silent heart attack", x2 stents, done in [place] History of colostomy reversal History of esophagogastroduodenoscopy (EGD) History of heart artery stent ~3 years ago, x2 stents, done in [place]; f/u dr guerra artis>will be seeing new cardio at [place] 2nd week of August 2022. Hx of Achilles tendon repair rt. Hx of bilateral cataract extraction Hx of colonoscopy Last Colonoscopy 08/14/22, repeat 3 years in 2025 Hx of hernia repair near former colostomy site Hx of knee surgery rt. patellar tendon repair Hx of rotator cuff surgery bilateral Hx of total hip arthroplasty rt. Hx of total knee replacement lt. Social History Smoking Status: Never smoker Do You Dip or Chew Tobacco: No Hx Alcohol Use: Yes Alcohol type: wine alcohol intake frequency: 3 or more drinks per day Hx Substance Use: No substance use type: does not use Physical Exam Vital Signs Last Vital Signs Temp 36.8 C 01/14/23 15:47 Pulse 63 01/14/23 15:47 Resp 16 01/14/23 15:47 BP 106/62 01/14/23 17:14 Pulse Ox 95 01/14/23 15:47 O2 Del Method Room Air 01/14/23 15:47 Testing Laboratory Results 01/14/23 08:00 01/14/23 08:00 PT 11.4 Seconds (9.0-12.0) 01/14/23 08:00 INR 1.0 (0.9-1.1) 01/14/23 08:00 Urine Color Dark Yellow 01/13/23 20: Urine Appearance Clear (Clear) 01/13/23 20:22 Urine pH 5.5 (4.5-7.5) 01/13/23 20:22 Ur Specific [place] > 1.045 (1.000-1.030) H 01/13/23 20:22 Urine Protein Negative (Negative) 01/13/23 20:22 Urine Glucose (UA) Negative (Negative) 01/13/23 20:22 Urine Ketones Negative (Negative) 01/13/23 20: Urine Nitrite Negative (Negative) 01/13/23 20: Ur Leukocyte Esterase Negative (Negative) 01/13/23 20:22 Electrocardiogram Date: 01/13/23 Findings: + NSR @ (60bpm with LAD) and + NSST changes Chest X-Ray Date: 01/13/23 Findings: + NAD Echocardiogram Date: 09/01/22 EF: 55-60 LV Function: normal RWMA: + none Other Findings: + LVH (mod concentric) Valvular Disease: + no significant valvular disease mild aortic sclerosis without stenosis
[2023-01-14] MEDS: TRAVOPROST Z 0.004% OPH SOLN 2.5 ML BTL OPB SCH (21:16)
[2023-01-15] MEDS ORDERED: MELATONIN 3 MG TAB PO STA (00:50)
[2023-01-15 07:19] LABS: Basophils # (auto) 0.02 K/uL (0-0.2); Basophils % (auto) 0.5 %; Eosinophils # (auto) 0.09 K/uL (0-0.50); Eosinophils % (auto) 2.3 %; Hematocrit (blood only) 28.1 % (42.0-52.0); Hemoglobin 9.1 g/dl (14.0-18.0); Immature Granulocytes # (auto) 0.01 K/uL (0.01-0.20); Immature Granulocytes % (auto) 0.3 %; Lymphocytes # (auto) 0.57 K/uL (1.2-3.4); Lymphocytes % (auto) 14.7 %; Mean Corpuscular Hemoglobin 28.4 pg (25.0-34.0); Mean Corpuscular Hgb Conc 32.4 g/dL (32.0-36.0); Mean Corpuscular Volume 87.8 fL (80.0-100.0); Monocytes # (auto) 0.68 K/uL (0.11-0.59); Monocytes % (auto) 17.5 %; Neutrophils # (auto) 2.52 K/uL (1.40-6.50); Neutrophils % (auto) 64.7 %; Platelet Count 196 K/uL (130-400); RDW Coefficient of Variation 16.3 % (11.5-14.5); RDW Standard Deviation 52.3 fL (36.4-46.3); White Blood Count 3.89 K/ul (4.8-10.8)
[2023-01-15 07:35] LABS: Albumin Globulin Ratio 1.5 (0.9-2); Albumin Level 3.4 gm/dl (3.4-5.0); BUN Creatinine Ratio 17.3 (10-20); Bilirubin,Total 0.6 mg/dl (0.2-1.0); Calcium 8.6 mg/dl (8.6-10.3); Creatinine Clr Calc Pharmacy 72.6 ml/min; Est GFR (African American) 78.8 ml/min; Globulin 2.3 gm/dl (2.5-4.0); Total Protein 5.7 gm/dl (6.0-8.3)
--- NOTE | 2023-01-15 07:49 | Hospitalist Progress Note ---
Date of Service January 15, 2023 Assessment & Plan (1) Incisional hernia: Plan: Had been having progressive abdominal pain with associated constipation and nausea over the past 4 days as outpatient Ordered CTAP by outpatient provider which showed: There is a loop of small bowel in a right-sided hernia with proximal bowel dilation. This may be the source of lower abdominal pain. Incarcerated hernia cannot be excluded, correlation with physical exam is recommended. Additional findings as above. General surgery consulted - Hernia recurred but no evidence of strangulation on exam at present (hx diverticulitis req resection >10 years ago) Holding eliquis (last dose 01/13) NPO this morning for surgery IVF Pain control, antiemetics Cardiology consulted for clearance. Perioperative metoprolol recommended. As outpatient possible dc amio and initiation of higher betablocker but can be done outpatient Continues on ASA given hx TRUDY in 2016 Labs stable this morning and planning for OR at 11am with Dr Aaron Monitor labs in AM (2) Atrial fibrillation: Plan: Stable. EKG on admission w/ NSR, IVCD. Nonspec T wave abn in lateral leads improved compared to prior Remains on amiodarone/metoprolol Holding eliquis in preparation for OR (last dose 01/13) -- resume when able when discussed with surgery EKG w/ CP Cardiology consulted for pre-op clearance as above -- cleared for surgery Mag IV ordered yesterday to keep ~2. K/Mag acceptable on morning labs and aim to keep Mag ~2, K~4 (3) HFrEF (heart failure with reduced ejection fraction): Plan: Euvolemic on admission , holding lasix (takes prn) while NPO. IVF ordered as above. continues on imdur Monitor weights / I&Os Cautious monitoring for volume overload -- gentle IVF @ 80cc/hr ordered and no significant volume overload at present and will monitor for now (4) Hypertension: Plan: Stable at present but some lows Continues on metoprolol, holding lisinopril for now to prevent hypotension w/ anesthesia given lows overnight Monitor (5) Anxiety and depression: Plan: Continue Duloxetine [facility] liaison notified for intermittent SI/HI (6) Rheumatoid arthritis: Plan: Will hold rinvoq in the ryan-operative period (7) Coronary artery disease: Plan: Stable Continue aspirin and ranolazine NO CP reported at present (8) GERD (gastroesophageal reflux disease): Plan: Will switch him to scheduled daily IV famotidine while NPO --> Home medications listing omeprazole daily -- changed to protonix once daily while NPO instead of pepcid Plan continued inpatient stay NPO for OR today will need PT/OT consults following Admission and Anticipated Discharge Date Admission Date: January 13, 2023 Supervising Physician Co-Signing Physician Notes The patient was not seen by me. The chart was reviewed. Case discussed with ISREAL Montenegro. Agree with assessment and plan Subjective Evaluated this morning, doing well. Tolerated some clears last night waiting for surgery, NPO this morning for OR. Reports pain controlled, no nausea or vomiting. Moved his bowels a little last night. Discussed plan and advancement of diet following surgery. Noting restrictions further to be laid out after surgery as far as lifting. No fever/chills, no chest pain, shortness of breath. Questions/concerns addressed at this time. Physical Exam Physical Exam: General: WD/WN male sitting up in bed, NAD , appears more comfortable HEENT: head normocephalic, atraumatic, mmm, trachea midline Resp: CTA, slightly diminished in the bases, no w/c, on room air CV: RRR, no significant m/r/g, no pitting edema GI: +BS, slight distension, prior surgical incisions noted & well healed, +R of midline, voluntary guarding, no rigidity, no warmth/erythema : no song MSK/Neuro: no focal deficits, no slurred speech, answering questions appropriately Psych: AOx3, cooperative with exam, no active SI/HI noted Results & Data Results & Data Vital Signs (Past 12 Hours) Vital Signs Temp Pulse Resp BP Pulse Ox Pulse Ox O2 Del Method 01/15/23 07:45 36.8 C 69 15 105/56 L 94 Room Air 01/14/23 21:15 Room Air 01/14/23 21:15 97 01/14/23 21:18 36.6 C 59 L 18 97/60 L 97 Room Air O2 Del Method 01/15/23 07:45 01/14/23 21:15 01/14/23 21:15 Room Air 01/14/23 21:18 Laboratory Results 01/15/23 01/15/23 01/15/23 Range/Units 06:38 06:38 06:38 WBC 3.89 L (4.8-10.8) K/ul RBC 3.20 L (4.70-6.10) M/uL Hgb 9.1 L (14.0-18.0) g/dl Hct 28.1 L (42.0-52.0) % MCV 87.8 (80.0-100.0) fL MCH 28.4 (25.0-34.0) pg MCHC 32.4 (32.0-36.0) g/dL RDW Std Deviation 52.3 H (36.4-46.3) fL RDW Coeff of Sammie 16.3 H (11.5-14.5) % Plt Count 196 (130-400) K/uL MPV 10.0 (9.4-12.4) fL Immature Gran % (Auto) 0.3 % Neut % (Auto) 64.7 % Lymph % (Auto) 14.7 % [place] % (Auto) 17.5 % Eos % (Auto) 2.3 % Baso % (Auto) 0.5 % Neut # (Auto) 2.52 (1.40-6.50) K/uL Lymph # (Auto) 0.57 L (1.2-3.4) K/uL [place] # (Auto) 0.68 H (0.11-0.59) K/uL Eos # (Auto) 0.09 (0-0.50) K/uL Baso # (Auto) 0.02 (0-0.2) K/uL Immature Gran # (Auto) 0.01 (0.01-0.20) K/uL PT 11.4 (9.0-12.0) Seconds INR 1.0 (0.9-1.1) Sodium 137 (136-145) mmol/L Potassium 4.0 (3.5-5.1) mmol/L Chloride 106 (98-107) mmol/L Carbon Dioxide 25 (21-32) mmol/L Anion Gap 6 (3-11) BUN 18 (6-23) mg/dl Creatinine 1.04 (0.6-1.4) mg/dl Est Cr Clr Drug Dosing 72.6 ml/min Est GFR ( Amer) 78.8 ml/min Est GFR (Non-Af Amer) 68.0 ml/min BUN/Creatinine Ratio 17.3 (10-20) Glucose 94 (70-99(Fasting)) mg/dl Calcium 8.6 (8.6-10.3) mg/dl Magnesium 2.0 (1.7-2.4) mg/dl Total Bilirubin 0.6 (0.2-1.0) mg/dl AST 22 (13-39) U/L ALT 16 (7-52) U/L Alkaline Phosphatase 47 (34-104) U/L Total Protein 5.7 L (6.0-8.3) gm/dl Albumin 3.4 (3.4-5.0) gm/dl Globulin 2.3 L (2.5-4.0) gm/dl Albumin/Globulin Ratio 1.5 (0.9-2) /02/28 Range/Units 08:00 WBC (4.8-10.8) K/ul RBC (4.70-6.10) M/uL Hgb (14.0-18.0) g/dl Hct (42.0-52.0) % MCV (80.0-100.0) fL MCH (25.0-34.0) pg MCHC (32.0-36.0) g/dL RDW Std Deviation (36.4-46.3) fL RDW Coeff of Sammie (11.5-14.5) % Plt Count (130-400) K/uL MPV (9.4-12.4) fL Immature Gran % (Auto) % Neut % (Auto) % Lymph % (Auto) % [place] % (Auto) % Eos % (Auto) % Baso % (Auto) % Neut # (Auto) (1.40-6.50) K/uL Lymph # (Auto) (1.2-3.4) K/uL [place] # (Auto) (0.11-0.59) K/uL Eos # (Auto) (0-0.50) K/uL Baso # (Auto) (0-0.2) K/uL Immature Gran # (Auto) (0.01-0.20) K/uL PT 11.4 (9.0-12.0) Seconds INR 1.0 (0.9-1.1) Sodium (136-145) mmol/L Potassium (3.5-5.1) mmol/L Chloride (98-107) mmol/L Carbon Dioxide (21-32) mmol/L Anion Gap (3-11) BUN (6-23) mg/dl Creatinine (0.6-1.4) mg/dl Est Cr Clr Drug Dosing ml/min Est GFR ( Amer) ml/min Est GFR (Non-Af Amer) ml/min BUN/Creatinine Ratio (10-20) Glucose (70-99(Fasting)) mg/dl Calcium (8.6-10.3) mg/dl Magnesium (1.7-2.4) mg/dl Total Bilirubin (0.2-1.0) mg/dl AST (13-39) U/L ALT (7-52) U/L Alkaline Phosphatase (34-104) U/L Total Protein (6.0-8.3) gm/dl Albumin (3.4-5.0) gm/dl Globulin (2.5-4.0) gm/dl Albumin/Globulin Ratio (0.9-2) PG Care Time/CCT Total # of Minutes Spent Total Time Spent with Patient: Total time spent is greater than 50% in coordination of care (as documented) at patient's floor/unit and/or counseling patient: Coding Level of Care Code 84887 SUB INP/OBS CARE 3/50MIN Diagnoses Incisional hernia K43.2 Atrial fibrillation I48.91 HFrEF (heart failure with reduced ejection fraction) I50.20 Hypertension I10 Anxiety and depression F41.9; F32.A Rheumatoid arthritis M06.9 Coronary artery disease I25.10 GERD (gastroesophageal reflux disease) K21.9
[2023-01-15 07:52] LABS: Prothrombin Time 11.4 Seconds (9.0-12.0)
[2023-01-15] MEDS: AMIODARONE 200 MG TAB PO SCH (08:52)
[2023-01-15] MEDS: ASPIRIN 81 MG ECTAB PO SCH (08:52)
[2023-01-15] MEDS: DULoxetine HCL 60 MG CAP PO SCH (08:52)
[2023-01-15] MEDS: RANOLAZINE 500 MG ER TAB PO SCH ×2 (08:53→22:03)
[2023-01-15] MEDS: METOPROLOL TARTRATE 25 MG TAB PO SCH ×2 (08:53→22:02)
[2023-01-15] MEDS: ISOSORBIDE MONO EXTENDED REL 60 MG TABCR PO SCH (08:53)
[2023-01-15] MEDS: SENNA 8.6 MG TAB PO SCH ×2 (08:53→22:04)
[2023-01-15] MEDS: GABAPENTIN 300 MG CAP PO SCH ×2 (08:53→22:01)
[2023-01-15] MEDS: ACETAMINOPHEN 325 MG TAB PO PRN ×2 (08:57→22:01)
[2023-01-15] MEDS: LACTATED RINGER'S 1,000 ML IV SCH ×2 (08:59→22:04)
--- NOTE | 2023-01-15 09:19 | XRay Report ---
CERVICAL SPINE 6 VIEWS CLINICAL HISTORY: Preoperative examination. Rheumatoid arthritis. FINDINGS: AP, lateral, flexion, extension, swimmer's, and odontoid views of the cervical spine are ob tained. No prior studies are available for comparison at the time of dictation. The skeletal structur es are osteopenic. There is no radiographic evidence of fracture or subluxation involving the cervica l spine. Note that C7 is only visualized on the swimmer's view. Vertebral body height and alignment a re maintained throughout the cervical spine. There is straightening of the cervical lordosis. Anterio r osteophytes are seen throughout. The spinolaminar line is preserved. The spinous processes appear i ntact. The odontoid process and lateral masses are intact as seen on the open-mouth view. Productive degenerative change is noted at the atlantodental articulation. No bony subluxation is seen on the fl exion/extension views. Moderate to severe disc space narrowing is seen at all cervical levels between C3-C4 and C6-C7. Posterior disc osteophyte complex is likely contribute to multilevel acquired compr omise of the central canal. Multilevel facet arthropathy is noted on the frontal view. The prevertebr al soft tissues are normal in appearance. There is atherosclerotic calcification of the left carotid bulb. Upper lobe lung parenchyma is clear as visualized. IMPRESSION: 1. No acute bony abnormality is seen involving the cervical spine. 2. Osteopenia and spondylotic change as above. 3. No bony subluxation is seen on the flexion/extension views. Dictated: 01/15/2023 8:10 AM Transcribed: 01/15/2023 9:12 AM Emy [id number] [facility] Electronically signed by: Maxime Faust M.D. 01/15/2023 9:18 AM
[2023-01-15] MEDS: PANTOprazole 40 MG in SYRINGE 0 ML IV SCH ×2 (10:24→19:32)
[2023-01-15] MEDS ORDERED: ceFAZolin 2000MG 2,000 MG/15 ML SYR IV ONE (10:56)
[2023-01-15] MEDS ORDERED: ceFAZolin 2,000 MG/15 ML IV PUSH IV ONE (10:58)
--- NOTE | 2023-01-15 11:06 | History & Physical Bridge Note ---
Date of Service January 15, 2023 History & Physical Bridge Note I have examined the patient, reviewed the History & Physical and in the interval since the performance of the History & Physical I have noted the following changes of clinical significance: no changes noted
[2023-01-15] MEDS ORDERED: BUPIVACAINE 0.5 % 5 MG/1 ML MPF 30ML VIAL ONE (11:42)
[2023-01-15] MEDS ORDERED: ONDANSETRON INJ 2 MG/ML 2 ML VIAL ONE (11:45)
[2023-01-15] MEDS ORDERED: fentaNYL citrate PF 100 MCG/2 ML VIAL ONE ×2 (11:45→12:00)
[2023-01-15] MEDS ORDERED: ePHEDrine sulfate 50 MG/ML AMP IV PRN (11:45)
[2023-01-15] MEDS ORDERED: LIDOCAINE 2% 2 ML VIAL/AMP(20MG/ML) INFIL ONE (11:45)
[2023-01-15] MEDS ORDERED: DEXAMETHASONE SOD INJ 4 MG/ML VIAL ONE (11:45)
[2023-01-15] MEDS ORDERED: PROPOFOL IV EMULSION 10 MG/ML 20 ML VIAL IV ONE (11:45)
[2023-01-15] MEDS ORDERED: ROCURONIUM BROMIDE 10 MG/ML 5 ML VIAL IV ONE ×2 (11:45→12:58)
[2023-01-15] MEDS ORDERED: ATROPINE SULFATE 0.1 MG/ML 10ML SYR IV PRN (11:45)
[2023-01-15] MEDS ORDERED: NALOXONE HCL 0.4 MG/1 ML VIAL/CARP IV PRN (11:45)
--- NOTE | 2023-01-15 11:45 | Anesthesiology Consultation ---
Date of Service January 15, 2023 Assessment & Plan Chart Review Chart Review: Acceptable Risk for Surgery ASA ASA3 Proposed Anesthesia Anesthesia Type: General Risk / Benefits Reviewed With: PT / POA / Parent / Guardian, Accepts Plan and Informed Consent Obtained History Surgery Operation Date: 01/15/23 11:15 Proposed Procedures p Open Incisional Hernia Repair - Rafy Aaron MD Height/Weight Height: 6 ft Weight: 106.4 kg Allergies Allergy/AdvReac Type Severity Reaction Status Date / Time cat dander Allergy Severe Swelling Verified 01/15/23 10:35 of Lip/Tongue/Throat Medications Home Medications Medication Instructions Recorded Confirmed Last Taken sennosides 8.6 mg capsule (senna) 8.6 mg PO AMHS 06/19/22 01/13/23 08/13/22 nitroglycerin 0.4 mg sublingual 0.4 mg sublingual Q5M PRN chest 07/23/22 01/13/23 Unknown tablet pain #30 tabs amiodarone 200 mg tablet 200 mg PO QA 08/07/22 01/13/23 08/13/22 ascorbic acid (vitamin C) 500 mg 1,000 mg PO QAM 08/07/22 01/13/23 08/13/22 capsule aspirin 81 mg tablet,delayed 81 mg PO QAM 08/07/22 01/13/23 08/13/22 release (Adult Low Dose Aspirin) coenzyme Q10 100 mg capsule 10 mg PO QAM 08/07/22 01/13/23 08/13/22 esomeprazole magnesium 40 mg 40 mg PO 08/07/22 01/13/23 08/13/22 capsule,delayed release (Nexium) isosorbide mononitrate 60 mg 60 mg PO QAM 08/07/22 01/13/23 08/13/22 tablet,extended release 24 hr lactobacillus combination no.9 4 6,000 mmu cells PO QA 08/07/22 01/13/23 08/13/22 billion cell capsule (Adult 50 Plus Probiotic) lisinopril 10 mg tablet 10 mg PO QAM 08/07/22 01/13/23 08/13/22 melatonin 5 mg capsule 5 mg PO 08/07/22 01/13/23 08/13/22 ogyibaoh-oalievx-obkt-lutein tablet 1 tab PO QAM 03/07/3101/13/23 08/13/22 apixaban 2.5 mg tablet (Eliquis) 2.5 mg PO BID 08/30/22 01/13/23 Unknown cholecalciferol (vitamin D3) 250 250 mcg PO DAILY 90 days #90 tabs 09/19/22 01/13/23 Unknown mcg (10,000 unit) tablet metoprolol tartrate 25 mg tablet 12.5 mg PO BID #60 tabs 10/03/22 01/13/23 Unknown upadacitinib 15 mg tablet,extended 15 mg PO QAM 10/15/22 01/13/23 10/28/22 15:10 release 24 hr (Rinvoq) acetaminophen 500 mg capsule 1,000 mg PO TID 11/11/22 01/13/23 Unknown omega 3-iug-ygo-fish oil 1,000 mg 1 cap PO QAM #30 caps 12/15/22 01/13/23 Unknown (120 mg-180 mg) capsule (Fish Oil) clobetasol 0.05 % topical cream 1 applic topical BID 2 weeks #30 12/25/22 01/13/23 Unknown grams furosemide 20 mg tablet 20 mg PO DAILY PRN edema or weight 12/25/22 01/13/23 Unknown gain #30 tabs duloxetine 60 mg capsule,delayed 60 mg PO DAILY #90 caps 01/01/23 01/13/23 Unknown release gabapentin 300 mg capsule 300 mg PO TID 01/13/23 01/13/23 Unknown pravastatin 40 mg tablet 40 mg PO HS 01/13/23 01/13/23 Unknown ranolazine 500 mg tablet,extended 500 mg PO BID 01/13/23 01/13/23 Unknown release,12 hr travoprost 0.004 % eye drops 1 drp OPB QPM 01/13/23 01/13/23 Unknown (Travatan Z) Active Medications Generic Name Dose Route Start Last Admin Trade Name Freq PRN Reason Stop Dose Admin Acetaminophen 650 mg 01/13/23 23:38 01/15/23 08:57 Acetaminophen 325 Mg Tab PO 02/12/23 23:37 650 mg Q6H PRN Administration Pain or Fever Amiodarone HCl 200 mg 01/14/23 09:00 01/15/23 08:52 Amiodarone 200 Mg Tab PO 02/13/23 08:59 200 mg QAM ELDER Administration Aspirin 81 mg 01/14/23 09:00 01/15/23 08:52 Aspirin 81 Mg Ectab PO 02/13/23 08:59 81 mg QAM ELDER Administration Duloxetine HCl 60 mg 01/14/23 09:00 01/15/23 08:52 Duloxetine Hcl 60 Mg Cap PO 02/13/23 08:59 60 mg DAILY ELDER Administration Gabapentin 300 mg 01/13/23 23:00 01/15/23 08:53 Gabapentin 300 Mg Cap PO 01/15/23 21:01 300 mg BID ELDER Administration Pantoprazole Sodium 40 mg/ 10 mls @ 5 mls/min 01/14/23 13:00 01/15/23 10:24 Syringe IV 02/13/23 12:59 5 mls/min DAILY@1100 ELDER Administration Lactated Ringer's 1,000 mls @ 80 mls/hr 01/14/23 21:00 01/15/23 08:59 Lr IV 02/13/23 20:59 80 mls/hr .[id number] ELDER Administration Isosorbide Mononitrate 60 mg 01/14/23 09:00 01/15/23 08:53 Isosorbide Zavala Extended Rel 60 Mg Tabcr PO 02/13/23 08:59 60 mg QAM ELDER Administration Metoprolol Tartrate 12.5 mg 01/13/23 22:11 01/15/23 08:53 Metoprolol Tartrate 25 Mg Tab PO 02/12/23 22:10 12.5 mg BID ELDER Administration Morphine Sulfate 2 mg 01/13/23 20:23 01/14/23 11:04 Morphine Sulfate 2 Mg/Ml Carp IV 01/27/23 20:22 2 mg Q3H PRN Administration Pain(5+) Pravastatin Sodium 40 mg 01/13/23 23:40 01/14/23 21:15 Pravastatin Sod 40 Mg Tab PO 02/12/23 23:39 40 mg HS ELDER Administration Ranolazine 500 mg 01/13/23 22:11 01/15/23 08:53 Ranolazine 500 Mg Er Tab PO 02/12/23 22:10 500 mg BID ELDER Administration Sennosides 8.6 mg 01/13/23 23:45 01/15/23 08:53 Senna 8.6 Mg Tab PO 02/12/23 23:44 8.6 mg BID ELDER Administration Travoprost 1 drops 01/13/23 22:11 01/14/23 21:16 Travoprost Z 0.004% Oph Soln 2.5 Ml Btl OPB 02/12/23 22:10 1 drops QPM ELDER Administration NPO Date Last Intake of Fluids: 01/14/23 Time Last Intake of Fluids: 23:59 Date Last Intake of Solids: 01/13/23 Time Last Intake of Solids: 23:59 Past Medical History Medical History (Updated 01/14/23 @ 17:19 by Mercedes Moise DO) Anxiety and depression Atherogenic dyslipidemia Atrial fibrillation episode occurred in 03/2022, taken to [facility] in [place], admitted to ICU for 1-2 weeks (was not intubated, but wasn't "awake either"), then to cardiac unit, then to rehab at [facility]; f/u dr. guerra in [place]>will be starting to see a trap setter at [facility] 2nd week of 08/2022 Benign essential hypertension Coronary artery disease GERD (gastroesophageal reflux disease) Heart failure with preserved ejection fraction HFrEF (heart failure with reduced ejection fraction) EF 40% Mar 2022, improved 55-60% August 2022 Hx of staphylococcal infection 03/2022, w/"bacterial infection" at the same, in the rt. knee, occurrred during atrial fibrillation episode. "when he woke up, he couldn't walk." Hypomagnesemia Incisional hernia Lumbar radiculopathy Lumbar stenosis Myocardial Infarction "a silent one, 2019" Pneumonia Respiratory failure with hypoxia Rheumatoid arthritis Sepsis Septicemia due to Streptococcus pneumoniae Sleep apnea no device Past Family History Family History Grandmother (Maternal) Diabetes Daughter Diabetes Father Suicide Hypertension Denies family history of Ovarian cancer Prostate cancer Myocardial infarction Breast cancer Lung cancer Colorectal cancer Stroke Past Surgical History Surgical History (Updated 01/14/23 @ 17:19 by Mercedes Moise DO) History of bowel resection for diverticulitis; w/colostomy placement for 3-4 months History of cardiac cath ~3 years ago, SOB and "felt like throat was constricting", had "silent heart attack", x2 stents, done in [place] History of colostomy reversal History of esophagogastroduodenoscopy (EGD) History of heart artery stent ~3 years ago, x2 stents, done in [place]; f/u dr guerra, [place]>will be seeing new cardio at [facility] week of August 2022. Hx of Achilles tendon repair rt. Hx of bilateral cataract extraction Hx of colonoscopy Last Colonoscopy 08/14/22, repeat 3 years in 2025 Hx of hernia repair near former colostomy site Hx of knee surgery rt. patellar tendon repair Hx of rotator cuff surgery bilateral Hx of total hip arthroplasty rt. Hx of total knee replacement lt. History of PONV No Hx of PONV and No Hx of Motion Sickness Social History Smoking Status: Never smoker Do You Dip or Chew Tobacco: No Hx Alcohol Use: Yes Alcohol type: wine alcohol intake frequency: 3 or more drinks per day Hx Substance Use: No substance use type: does not use Physical Exam Vital Signs Last Vital Signs Temp 36.8 C 01/15/23 10:35 Pulse 67 01/15/23 10:35 Resp 20 01/15/23 10:35 BP 133/79 01/15/23 10:35 Pulse Ox 95 01/15/23 10:35 O2 Del Method Room Air 01/15/23 10:35 ENMT Mouth: no TMJ abnormality Thyromental Distance: > or= 3.5 Finger Breadths Mallampati Class: II Neck normal visual inspection, trachea midline and + facial hair; neck extension not limited Respiratory normal respiratory effort Auscultation: lungs clear to auscultation bilaterally Cardiovascular Rate/Rhythm: regular rate and regular rhythm Heart Sounds: no murmur Musculoskeletal Spine: normal cervical ROM Extremities: + limited ROM of extremities wheel hair/walker Neurologic moves all extremities Psychiatric Orientation: alert and oriented x 3 Testing Laboratory Results 01/15/23 06:38 01/15/23 06:38 PT 11.4 Seconds (9.0-12.0) 01/15/23 06:38 INR 1.0 (0.9-1.1) 01/15/23 06:38 Urine Color Dark Yellow 01/13/23 20:22 Urine Appearance Clear (Clear) 01/13/23 20:22 Urine pH 5.5 (4.5-7.5) 01/13/23 20:22 Ur Specific [place] > 1.045 (1.000-1.030) H 01/13/23 20:22 Urine Protein Negative (Negative) 01/13/23 20:22 Urine Glucose (UA) Negative (Negative) 01/13/23 20:22 Urine Ketones Negative (Negative) 01/13/23 20:22 Urine Nitrite Negative (Negative) 01/13/23 20:22 Ur Leukocyte Esterase Negative (Negative) 01/13/23 20:22 Electrocardiogram Date: 01/13/23 Findings: + NSR @ (60bpm with LAD) and + NSST changes Chest X-Ray Date: 01/13/23 Findings: + NAD Echocardiogram Date: 09/01/22 EF: 55-60 LV Function: normal RWMA: + none Other Findings: + LVH (mod concentric) Valvular Disease: + no significant valvular disease mild aortic sclerosis without stenosis
[2023-01-15] MEDS ORDERED: ePHEDrine sulfate 50 MG/ML AMP ONE (12:42)
[2023-01-15] MEDS ORDERED: PHENYLEPHRINE 100MCG/ML 5ML SYR ONE (12:42)
[2023-01-15] MEDS ORDERED: GLYCOPYRROLATE 0.2 MG/ML VIAL ONE (13:59)
[2023-01-15] MEDS ORDERED: NEOSTIGMINE METHYLSULFATE 1 MG/ML 10ML VIAL ONE (13:59)
[2023-01-15] MEDS ORDERED: SUGAMMADEX SODIUM 200 MG/2 ML VIAL IV ONE (14:20)
--- NOTE | 2023-01-15 14:20 | Post Operative Brief Note ---
Immediate Post Op Note v1 Date of Surgery January 15, 2023 Pre & Post Diagnosis Operation Date: 01/15/23 11:15 Pre-Op Diagnosis: INCARCERTAED HERNIA Post-Op Diagnosis: INCARCERTAED HERNIA I identified the patient and participated in the time-out.: Yes Procedure Operation Date: 01/15/23 11:15 Actual Procedures p Open Incisional Hernia Repair(Not Applicable) - Rafy Aaron MD Surgeon Rafy Aaron MD Land Checker JOSE Schuler assisted with tissue retraction, camera op, closure Estimated Blood Loss 5 Findings Consistent with Post-Op Diagnosis Drains Walker-Roque Drain
--- NOTE | 2023-01-15 14:29 | Operative Report ---
Post Operative Report Pre & Post Diagnosis Operation Date: 01/15/23 11:15 Pre-Op Diagnosis: INCARCERTAED HERNIA Post-Op Diagnosis: INCARCERTAED HERNIA I identified the patient and participated in the time-out.: Yes Procedure Operation Date: 01/15/23 11:15 Actual Procedures p Open Incisional Hernia Repair(Not Applicable) - Rafy Aaron MD Surgeon Rafy Aaron MD Ticket Agent JOSE Schuler assisted with tissue retraction, camera op, closure Estimated Blood Loss 5 Findings Consistent with Post-Op Diagnosis Multiple defects along the midline abdominal wall containing incarcerated omentum as well as bowel. Specimens Pieces of hernia sac and hernia contents Drains 10 Argentine flat ELYSSA Anesthesia Type General Complications No immediate complications Description of Procedure The patient was taken to the operating room, placed supine on the operating table. A timeout was performed, SCD boots were placed, perioperative antibiotics were administered. After adequate anesthesia and analgesia was obtained, the area was prepped and draped in the normal sterile fashion. An midline incision was made and was carried down to the level of subcutaneous tissue. Within the level of the fascia above the upper hernia defect. Slowly and carefully dissected free the hernia sac from surrounding tissue. There were multiple hernia defects along the abdominal wall extending down below the umbilicus. We began at the upper hernia sac and excised the hernia sac from the edge of the fascia. I was able to enter the abdominal cavity in this location. Working very carefully meticulously I was able to dissect the edges of the fascia. The contents of each hernia sac were carefully reduced back into the abdominal cavity, and were dissected away from the fascia as we worked cephalad to caudad. The multiple hernia defects were by attenuated bands of fascia, which were excised to coalesce the different defects into 1 larger hernia defect. We are able to do this in a 360 degree fashion. At this point, attenuated fascia was excised back to good fascia. At this point, the hernia defect was measured. It measured 15 cm in length by 10 cm in width. A Bard composix L/P mesh, 15.8 x 21.6 cm was brought onto the field and maneuvered into the underlay position. It was secured in the underlay position with multiple transfascial 2-0 Prolene sutures in a 360 degree fashion. Once this was complete, the edges of the fascia were then sewn to the mesh with a running 2-0 Prolene suture. We used 4 sutures tied to 1 another for this. Once this was complete, attention was turned to hemostasis. As there was a large space due to the multiple large hernia defects, we made the decision to place a drain. A 10 Argentine flat ELYSSA drain was placed through separate stab incision and secured with a 2-0 nylon suture. Subcutaneous tissue was closed with interrupted 3-0 Vicryl sutures. The skin was closed with surgical clips. Dressings were applied. An abdominal binder was applied. The patient tolerated the procedure without complication, and was transferred in stable condition to the PACU. All instrument, needle, and sponge counts were correct at the end of the case. My nurseryman assistant was necessary throughout the procedure for tissue retraction, possible camera operation, and closure of the wounds. I understand that section 1842(b)(7)(D) of the Social Security act generally prohibits Medicare physician fee schedule payment for the services of assistants at surgery in teaching hospitals when qualified residents are available to furnish such services. I certify that the services for which payment is claimed were medically necessary and that no qualified resident was available to perform the services. I further understand that these services are subject to pos tpayment review by the Medicare carrier. I attest to the content of the Intraoperative Record and any orders documented therein. Any exceptions are noted below.
[2023-01-15] MEDS: HYDROmorphone INJ 1 MG/ML SYRINGE IV PRN ×4 (14:37→14:58)
--- NOTE | 2023-01-15 14:40 | Anesthesiology Progress Note ---
Date of Service January 15, 2023 Anesthesia Post Procedure Vital Signs Vital Signs: Temp Pulse Pulse Resp BP BP Pulse Ox 01/15/23 10:35 36.8 C 67 20 133/79 95 01/15/23 09:00 01/15/23 08:51 69 154/80 H 01/15/23 07:45 36.8 C 69 15 105/56 L 94 01/14/23 21:15 01/14/23 21:15 01/14/23 21:18 36.6 C 59 L 18 97/60 L 97 01/14/23 17:14 106/62 01/14/23 15:47 36.8 C 63 16 98/59 L 95 Pulse Ox O2 Del Method O2 Del Method 01/15/23 10:35 Room Air 01/15/23 09:00 Room Air 01/15/23 08:51 01/15/23 07:45 Room Air 01/14/23 21:15 Room Air 01/14/23 21:15 97 Room Air 01/14/23 21:18 Room Air 01/14/23 17:14 01/14/23 15:47 Room Air Pain Intensity Medial Abdomen: Pain Intensity: 2 Transfer of Care Handoff Completed per policy Notes Mental Status: alert / awake / arousable Patient Amnestic to Procedure: Yes Nausea / Vomiting: adequately controlled Pain: adequately controlled Airway Patency, RR, SpO2: stable & adequate BP & HR: stable & adequate Hydration State: stable & adequate Anesthetic Complications: no major complications apparent and Pt Satisfied with anesthetic care
[2023-01-15] MEDS ORDERED: ONDANSETRON INJ 2 MG/ML 2 ML VIAL IV PRN (15:22)
[2023-01-15] MEDS: MoRPHine SULFATE 2 MG/ML CARP IV PRN ×2 (15:45→21:06)
[2023-01-15] MEDS: oxyCODONE/ACETAMINOPHEN 5mg/325mg TAB PO PRN (17:15)
[2023-01-15] MEDS ORDERED: COUGH DROP (SUGAR FREE) LOZ 24 LOZ/1 BOX BUCCAL ONE (19:30)
[2023-01-15] MEDS: PRAVASTATIN SOD 40 MG TAB PO SCH (22:03)
[2023-01-15] MEDS: TRAVOPROST Z 0.004% OPH SOLN 2.5 ML BTL OPB SCH (22:04)
[2023-01-16] MEDS: oxyCODONE/ACETAMINOPHEN 5mg/325mg TAB PO PRN ×3 (02:09→20:06)
[2023-01-16] MEDS ORDERED: MELATONIN 3 MG TAB PO STA (02:20)
--- NOTE | 2023-01-16 06:51 | Surgery Progress Note ---
Date of Service January 16, 2023 Assessment & Plan (1) Incarcerated intra-abdominal hernia: Plan POD#1 s/p open repair of incarcerated incisional hernia with mesh Advance diet as tolerated Out of bed, ambulate Physical therapy to see DVT prophylaxis with SCDs and Lovenox Admission and Anticipated Discharge Date Admission Date: January 13, 2023 Subjective POD#1 s/p open repair of large incarcerated incisional hernia with mesh. Pain controlled with pain medications. No flatus. No nausea or vomiting. No fevers overnight. Physical Exam Physical Exam: NAD, A&O x 3 AFVSS Abdomen: Soft, mild TTP Dressing clean dry and intact ELYSSA drain serosanguineous drainage Results & Data Vital Signs (Past 12 Hours) Vital Signs Temp Pulse Resp BP Pulse Ox Pulse Ox O2 Del Method 01/16/23 02:11 93 01/15/23 22:00 Room Air 01/16/23 02:11 93 Nasal Cannula 01/16/23 02:11 36.8 C 78 20 104/56 L 85 L Room Air 01/15/23 21:58 36.7 C 79 18 127/67 93 Room Air O2 Del Method O2 Flow Rate O2 Flow Rate 01/16/23 02:11 Nasal Cannula 2 01/15/23 22:00 01/16/23 02:11 2 01/16/23 02:11 01/15/23 21:58 Laboratory Results 01/15/23 01/15/23 01/15/23 Range/Units 06:38 06:38 06:38 WBC 3.89 L (4.8-10.8) K/ul RBC 3.20 L (4.70-6.10) M/uL Hgb 9.1 L (14.0-18.0) g/dl Hct 28.1 L (42.0-52.0) % MCV 87.8 (80.0-100.0) fL MCH 28.4 (25.0-34.0) pg MCHC 32.4 (32.0-36.0) g/dL RDW Std Deviation 52.3 H (36.4-46.3) fL RDW Coeff of Sammie 16.3 H (11.5-14.5) % Plt Count 196 (130-400) K/uL MPV 10.0 (9.4-12.4) fL Immature Gran % (Auto) 0.3 % Neut % (Auto) 64.7 % Lymph % (Auto) 14.7 % [place] % (Auto) 17.5 % Eos % (Auto) 2.3 % Baso % (Auto) 0.5 % Neut # (Auto) 2.52 (1.40-6.50) K/uL Lymph # (Auto) 0.57 L (1.2-3.4) K/uL [place] # (Auto) 0.68 H (0.11-0.59) K/uL Eos # (Auto) 0.09 (0-0.50) K/uL Baso # (Auto) 0.02 (0-0.2) K/uL Immature Gran # (Auto) 0.01 (0.01-0.20) K/uL PT 11.4 (9.0-12.0) Seconds INR 1.0 (0.9-1.1) Sodium 137 (136-145) mmol/L Potassium 4.0 (3.5-5.1) mmol/L Chloride 106 (98-107) mmol/L Carbon Dioxide 25 (21-32) mmol/L Anion Gap 6 (3-11) BUN 18 (6-23) mg/dl Creatinine 1.04 (0.6-1.4) mg/dl Est Cr Clr Drug Dosing 72.6 ml/min Est GFR ( Amer) 78.8 ml/min Est GFR (Non-Af Amer) 68.0 ml/min BUN/Creatinine Ratio 17.3 (10-20) Glucose 94 (70-99(Fasting)) mg/dl Calcium 8.6 (8.6-10.3) mg/dl Magnesium 2.0 (1.7-2.4) mg/dl Total Bilirubin 0.6 (0.2-1.0) mg/dl AST 22 (13-39) U/L ALT 16 (7-52) U/L Alkaline Phosphatase 47 (34-104) U/L Total Protein 5.7 L (6.0-8.3) gm/dl Albumin 3.4 (3.4-5.0) gm/dl Globulin 2.3 L (2.5-4.0) gm/dl Albumin/Globulin Ratio 1.5 (0.9-2)
[2023-01-16] MEDS: SENNA 8.6 MG TAB PO SCH ×2 (07:54→20:52)
[2023-01-16] MEDS: RANOLAZINE 500 MG ER TAB PO SCH ×2 (07:54→20:51)
[2023-01-16] MEDS: METOPROLOL TARTRATE 25 MG TAB PO SCH ×2 (07:54→20:52)
[2023-01-16] MEDS: AMIODARONE 200 MG TAB PO SCH (07:55)
[2023-01-16] MEDS: PANTOprazole 40 MG in SYRINGE 0 ML IV SCH ×2 (07:55→20:53)
[2023-01-16] MEDS: ISOSORBIDE MONO EXTENDED REL 60 MG TABCR PO SCH (07:55)
[2023-01-16] MEDS: DULoxetine HCL 60 MG CAP PO SCH (07:55)
[2023-01-16] MEDS: GABAPENTIN 300 MG CAP PO SCH ×3 (07:55→20:51)
[2023-01-16] MEDS: ASPIRIN 81 MG ECTAB PO SCH (07:55)
--- NOTE | 2023-01-16 07:59 | Psychiatric Consultation ---
Date of Consultation January 16, 2023 Impression / Recommendations Impression Diagnostically consistent with adjustment disorder with mixed anxiety and depressed mood in context of grief about son's cancer diagnosis and ongoing medical challenges as well as possible component of alcohol-induced mood changes given recent increased use, suspect as way to self-medicate mood symptoms. Acute risk of self-harm is low given denial of SI. Sodium is normal and no evidence of significantly prolonged QTc (<500ms). (1) Anxiety and depression: (2) Adjustment disorder with mixed anxiety and depressed mood: Plan -already on duloxetine 60mg daily -consider low dose Vistaril 10mg up to BID prn for insomnia and anxiety -also on gabapentin 300mg TID, could consider titrating this as it can be helpful off-label for anxiety and there is some data to support it can help with reducing alcohol use -Could consider augmentation with mirtazapine 7.5mg HS and titrate to 15mg HS if needed for further treatment of anxiety/depression; if added would continue to periodically monitor QTc to ensure it remains <500ms -Would consider use of naltrexone 50mg daily in future if alcohol use continues to be problematic and if eventually off all opioid pain medication and if LFTs remain stable -Psych liasons exploring possible outpatient therapy options, unfortunately very limited resources in this area currently but he's open to telemedicine options -Discussed with Yeni Salmeron Psych History Identifying Data Lowell is a 77 yo man with a history of anxiety, depression, RA, afib, HFrEF, HTN, CAD, GERD admitted medically for incisional hernia. Psychiatry consulted for recommendations for depression and grief. Chief Complaint "I tend to depression when tough events happen". History of Present Illness Bill has been experiencing increased depression in the context of his son's pancreatic cancer diagnosis and recent medical challenges. He's been increasing his alcohol use to 4-5 glasses of wine per night and notes he's been snacking more "on things I shouldn't like ice cream". Discussed his challenge in losing some of his mobility recently which has impacted his ability to engage in gardening, kayaking and activities he enjoys as well as worrying about not being able to take care of all the stuff around his home in [place]. Most difficult has been the grief and uncertainty with his son's diagnosis and he'd like to be able to process this in therapy and know how to best support his grandchildren through it as well. He's experienced intermittent SI at times during his life, denies current SI, future-focused. Has been trying to read more and enjoys this. No access to guns. No history of suicide attempts. Family history of father dying by suicide. Further recent history per psychiatric liason notes on 01/14/2023 and 01/15/2023: "Pleasant and engaged in conversation. This Liaison explained to patient reason for visit. He states that his father committed suicide when he was 17 and while patient was serving on a ship in the . States "I've always wanted to ask him what his thought process was." He states that he has had thoughts in the past, states "I've been on the edge, but I would never do it." He states that he has 4 grandchildren to live for. He discussed life changes, from retiring from the [employer], to moving to [place], and coming back to the area. He expressed the sadness he feels that his son has stage 4 pancreatic cancer. States "a parent should not know what it's like to lose a child." He is currently living at [facility] and states that he likes it there. He identifies his support as his daughter and son. He was provided a purple resource book for outpatient service options. He was appreciative of the visit. Our service will follow up with him regarding this and any questions/concerns he has." "Patient resting in bed, painful d/t surgery today. He reports interest in outpatient services. He is aware of challenge in finding psych therapy who accept medicare/have availability for new patients. He reports increased depression and hopelessness. He admits to drinking wine nightly but has increased from 2-3 glasses a night to 6-7 glasses a night. Patient aware of effects alcohol has on mood and is familiar d/t strong family history of alcoholism. He is interested in speaking with psychiatrist for medication recommendations. Liaison will explore availability of therapist." Allergies Allergy/AdvReac Type Severity Reaction Status Date / Time cat dander Allergy Severe Swelling Verified 01/15/23 10:35 of Lip/Tongue/Throat Home Medications Medication Instructions Recorded Confirmed Type sennosides 8.6 mg capsule (senna) 8.6 mg PO AMHS 06/19/22 01/13/23 History nitroglycerin 0.4 mg sublingual 0.4 mg sublingual Q5M PRN chest 07/23/22 01/13/23 Rx tablet pain #30 tabs amiodarone 200 mg tablet 200 mg PO QAM 08/07/22 01/13/23 History ascorbic acid (vitamin C) 500 mg 1,000 mg PO QAM 08/07/22 01/13/23 History capsule aspirin 81 mg tablet,delayed 81 mg PO QAM 08/07/22 01/13/23 History release (Adult Low Dose Aspirin) coenzyme Q10 100 mg capsule 10 mg PO QAM 08/07/22 01/13/23 History esomeprazole magnesium 40 mg 40 mg PO HS 08/07/22 01/13/23 History capsule,delayed release (Nexium) isosorbide mononitrate 60 mg 60 mg PO QAM 08/07/22 01/13/23 History tablet,extended release 24 hr lactobacillus combination no.9 4 6,000 mmu cells PO QAM 08/07/22 01/13/23 History billion cell capsule (Adult 50 Plus Probiotic) lisinopril 10 mg tablet 10 mg PO QAM 08/07/22 01/13/23 History melatonin 5 mg capsule 5 mg PO HS 08/07/22 01/13/23 History drrragfr-kasjlrs-wgky-lutein tablet 1 tab PO QAM 08/07/22 01/13/23 History apixaban 2.5 mg tablet (Eliquis) 2.5 mg PO BID 08/30/22 01/13/23 History cholecalciferol (vitamin D3) 250 250 mcg PO DAILY 90 days #90 tabs 09/19/2201/28 Rx mcg (10,000 unit) tablet metoprolol tartrate 25 mg tablet 12.5 mg PO BID #60 tabs 10/03/22 01/13/23 Rx upadacitinib 15 mg tablet,extended 15 mg PO QAM 10/15/22 01/13/23 History release 24 hr (Rinvoq) acetaminophen 500 mg capsule 1,000 mg PO TID 11/11/22 01/13/23 History omega 4-jhl-eog-fish oil 1,000 mg 1 cap PO QAM #30 caps 12/15/22 01/13/23 Rx (120 mg-180 mg) capsule (Fish Oil) clobetasol 0.05 % topical cream 1 applic topical BID 2 weeks #30 12/25/22 01/13/23 Rx grams furosemide 20 mg tablet 20 mg PO DAILY PRN edema or weight 12/25/22 01/13/23 Rx gain #30 tabs duloxetine 60 mg capsule,delayed 60 mg PO DAILY #90 caps 01/01/23 01/13/23 Rx release gabapentin 300 mg capsule 300 mg PO TID 01/13/23 01/13/23 History pravastatin 40 mg tablet 40 mg PO HS 01/13/23 01/13/23 History ranolazine 500 mg tablet,extended 500 mg PO BID 01/13/23 01/13/23 History release,12 hr travoprost 0.004 % eye drops 1 drp OPB QPM 01/13/23 01/13/23 History (Travatan Z) cephalexin 500 mg capsule 500 mg PO Q6H 4 days #16 caps 01/16/23 Rx oxycodone-acetaminophen 5 mg-325 1 tab PO Q6H PRN pain #12 tabs 01/16/23 Rx mg tablet (Percocet) Patient History Medical History Anxiety and depression Atherogenic dyslipidemia Atrial fibrillation episode occurred in 03/2022, taken to [facility] in [place], admitted to ICU for 1-2 weeks (was not intubated, but wasn't "awake either"), then to cardiac unit, then to rehab at [facility]; f/u dr. guerra in [place]>will be starting to see a fire prevention engineer at [facility] 2nd week of 08/2022 Benign essential hypertension Coronary artery disease GERD (gastroesophageal reflux disease) Heart failure with preserved ejection fraction HFrEF (heart failure with reduced ejection fraction) EF 40% Mar 2022, improved 55-60% August 2022 Hx of staphylococcal infection 03/2022, w/"bacterial infection" at the same, in the rt. knee, occurrred during atrial fibrillation episode. "when he woke up, he couldn't walk." Hypomagnesemia Incisional hernia Lumbar radiculopathy Lumbar stenosis Myocardial Infarction "a silent one, 2019" Pneumonia Respiratory failure with hypoxia Rheumatoid arthritis Sepsis Septicemia due to Streptococcus pneumoniae Sleep apnea no device Surgical History History of bowel resection for diverticulitis; w/colostomy placement for 3-4 months History of cardiac cath ~3 years ago, SOB and "felt like throat was constricting", had "silent heart attack", x2 stents, done in [place] History of colostomy reversal History of esophagogastroduodenoscopy (EGD) History of heart artery stent ~3 years ago, x2 stents, done in [place]; f/u dr guerra, [place]>will be seeing new cardio at [place] week of August 2022. Hx of Achilles tendon repair rt. Hx of bilateral cataract extraction Hx of colonoscopy Last Colonoscopy 08/14/22, repeat 3 years in 2025 Hx of hernia repair near former colostomy site Hx of knee surgery rt. patellar tendon repair Hx of rotator cuff surgery bilateral Hx of total hip arthroplasty rt. Hx of total knee replacement lt. Family History Grandmother (Maternal) Diabetes Daughter Diabetes Father Suicide Hypertension Denies family history of Ovarian cancer Prostate cancer Myocardial infarction Breast cancer Lung cancer Colorectal cancer Stroke Social History Smoking Status: Never smoker Second Hand Exposure: No; Do You Dip or Chew Tobacco: No; Hx Alcohol Use: Yes Alcohol type: wine Alcohol Intake Frequency: 4 or More x per/Week Hx Substance Use: No Preferred Language: [place] Communication Ability: Effective Visual Impairment: No Limitations Hearing Ability: Normal Materials Inspector Required: No Beliefs That Will Affect Care: None marital status: Single Current Living Situation: Personal Care Facility Current Living Situation Comment: [employer] current occupational status: retired How many Children do You have: 2 Other Information That Helps Us Care for You: No Feels Safe at Home: Yes Safety Concerns: Feels Safe At This Time Childhood Exposure to Second-Hand Smoke: Yes caffeine: Yes Dental Care, Regularly: Yes Physical Activity Frequency: Does not Exercise Seatbelt Use: always Sunscreen Use: Yes Assistive Devices: Cane, Walker and Wheelchair Physical Exam Psychiatric: Orientation: alert and oriented x 3 Apperance: appropriately dressed and appropriately groomed Eye Contact: good eye contact Motor Behavior: no abnormal motor movements Speech: normal rate/rhythm/volume of speech Affect: + depressed affect and + anxious affect Mood: + depressed mood and + anxious mood Thought Process: goal directed thought process Thought Content: reality based without delusions Suicidal Thoughts: denies suicidal thoughts Homicidal Thoughts: denies homicidal thoughts Hallucinations: no auditory hallucinations and no visual hallucinations Cognition: attention grossly intact and language grossly intact Estimated Intelligence: consistent with education level Insight: + fair insight Judgment: + fair judgement Vital Signs (Past 24 Hours): Last Vital Signs Temp 36.9 C 01/16/23 07:20 Pulse 72 01/16/23 07:20 Resp 15 01/16/23 07:20 BP 134/71 01/16/23 07:20 Pulse Ox 95 01/16/23 07:20 O2 Del Method Nasal Cannula 01/16/23 07:20 O2 Flow Rate 2 01/16/23 07:20 Review of Systems All systems reviewed & are unremarkable except as noted in HPI & below Results & Data (PSY) Medications Administered Acetaminophen (Acetaminophen 325 Mg Tab) 650 mg PO Q6H PRN PRN Reason: Pain or Fever Stop: 02/12/23 23:37 Last Admin: 01/15/23 22:01 Dose: 650 mg Documented By: Admin: 01/15/23 08:57 Dose: 650 mg Documented By: Admin: 01/14/23 21:25 Dose: 650 mg Documented By: Admin: 01/14/23 08:45 Dose: 650 mg Documented By: Admin: 01/14/23 00:05 Dose: 650 mg Documented By: SKINNY Amiodarone HCl (Amiodarone 200 Mg Tab) [facility] Stop: 02/13/23 08:59 Last Admin: 01/15/23 08:52 Dose: 200 mg Documented By: Admin: 01/14/23 08:40 Dose: 200 mg Documented By: LETICIA Aspirin (Aspirin 81 Mg Ectab) [facility] Stop: 02/13/23 08:59 Last Admin: 01/15/23 08:52 Dose: 81 mg Documented By: Admin: 01/14/23 08:40 Dose: 81 mg Documented By: LETICIA Duloxetine HCl (Duloxetine Hcl 60 Mg Cap) 60 mg PO DAILY [facility] Stop: 02/13/23 08:59 Last Admin: 01/15/23 08:52 Dose: 60 mg Documented By: Admin: 01/14/23 08:40 Dose: 60 mg Documented By: LETICIA Lactated Ringer's (Lr) 1,000 mls @ 80 mls/hr IV .[id number] ELDER Stop: 02/13/23 20:59 Last Admin: 01/15/23 22:04 Dose: 80 mls/hr Documented By: Infusion: 01/15/23 21:29 Dose: 80 mls/hr Documented By: Admin: 01/15/23 08:59 Dose: 80 mls/hr Documented By: Infusion: 01/15/23 08:59 Dose: 80 mls/hr Documented By: Infusion: 01/15/23 08:44 Dose: 80 mls/hr Documented By: Admin: 01/14/23 21:00 Dose: 80 mls/hr Documented By: AMADEO Pantoprazole Sodium 40 mg/ (Syringe) 10 mls @ 5 mls/min IV BID ELDER Stop: 02/14/23 18:44 Last Admin: 01/15/23 19:32 Dose: 5 mls/min Documented By: ANSON Isosorbide Mononitrate (Isosorbide Emmons Extended Rel 60 Mg Tabcr) 60 mg PO QAM ELDER Stop: 02/13/23 08:59 Last Admin: 01/15/23 08:53 Dose: 60 mg Documented By: Admin: 01/14/23 08:40 Dose: 60 mg Documented By: LETICIA Metoprolol Tartrate (Metoprolol Tartrate 25 Mg Tab) 12.5 mg PO BID ELDER Stop: 02/12/23 22:10 Last Admin: 01/15/23 22:02 Dose: 12.5 mg Documented By: Admin: 01/15/23 08:53 Dose: 12.5 mg Documented By: Admin: 01/14/23 21:19 Dose: Not Given Documented By: Admin: 01/14/23 08:40 Dose: 12.5 mg Documented By: Admin: 01/13/23 23:00 Dose: 12.5 mg Documented By: SKINNY Morphine Sulfate (Morphine Sulfate 2 Mg/Ml Carp) 2 mg IV Q3H PRN PRN Reason: Pain(5+) Stop: 01/27/23 20:22 Last Admin: 01/15/23 21:06 Dose: 2 mg Documented By: Admin: 01/15/23 15:45 Dose: 2 mg Documented By: Admin: 01/14/23 11:04 Dose: 2 mg Documented By: Admin: 01/14/23 04:50 Dose: 2 mg Documented By: Admin: 01/14/23 00:09 Dose: 2 mg Documented By: Admin: 01/13/23 21:27 Dose: 2 mg Documented By: BEV Oxycodone/Acetaminophen (Oxycodone/Acetaminophen 5mg/325mg Tab) 1 tab PO Q4H PRN PRN Reason: Pain Stop: 01/29/23 15:21 Last Admin: 01/16/23 02:09 Dose: 1 tab Documented By: Admin: 01/15/23 17:15 Dose: 1 tab Documented By: LETICIA Pravastatin Sodium (Pravastatin Sod 40 Mg Tab) 40 mg PO HS ELDER Stop: 02/12/23 23:39 Last Admin: 01/15/23 22:03 Dose: 40 mg Documented By: Admin: 01/14/23 21:15 Dose: 40 mg Documented By: Admin: 01/14/23 00:05 Dose: 40 mg Documented By: SKINNY Ranolazine (Ranolazine 500 Mg Er Tab) 500 mg PO BID ELDER Stop: 02/12/23 22:10 Last Admin: 01/15/23 22:03 Dose: 500 mg Documented By: Admin: 01/15/23 08:53 Dose: 500 mg Documented By: Admin: 01/14/23 21:15 Dose: 500 mg Documented By: Admin: 01/14/23 08:40 Dose: 500 mg Documented By: Admin: 01/13/23 23:01 Dose: 500 mg Documented By: SKINNY Sennosides (Senna 8.6 Mg Tab) 8.6 mg PO BID ELDER Stop: 02/12/23 23:44 Last Admin: 01/15/23 22:04 Dose: 8.6 mg Documented By: Admin: 01/15/23 08:53 Dose: 8.6 mg Documented By: Admin: 01/14/23 21:15 Dose: 8.6 mg Documented By: Admin: 01/14/23 08:40 Dose: 8.6 mg Documented By: Admin: 01/14/23 00:05 Dose: Not Given Documented By: SKINNY Travoprost (Travoprost Z 0.004% Oph Soln 2.5 Ml Btl) 1 drops OPB QPM ELDER Stop: 02/12/23 22:10 Last Admin: 01/15/23 22:04 Dose: 1 drops Documented By: Admin: 01/14/23 21:16 Dose: 1 drops Documented By: Admin: 01/13/23 23:01 Dose: 1 drops Documented By: SKINNY Coding Level of Care Code 67648 IN/OBS CONSULT LVL 3,45M Diagnoses Anxiety and depression F41.9; F32.A Adjustment disorder with mixed anxiety and depressed mood F43.23 Time Spent (min) 50
[2023-01-16] MEDS ORDERED: LORazepam 1 MG TAB PO PRN (08:18)
--- NOTE | 2023-01-16 08:21 | Hospitalist Progress Note ---
Date of Service January 16, 2023 Assessment & Plan (1) Incisional hernia: Plan: Had been having progressive abdominal pain with associated constipation and nausea over the past 4 days as outpatient Ordered CTAP by outpatient provider --> There is a loop of small bowel in a right-sided hernia with proximal bowel dilation. This may be the source of lower abdominal pain. Incarcerated hernia cannot be excluded, correlation with physical exam is recommended. Additional findings as above. General surgery consulted POD# 1 s/p Open Incisional Hernia Repair(Not Applicable) - Rafy Aaron MD. Per OP report, Multiple defects along the midline abdominal wall containing incarcerated omentum as well as bowel. Multiple defects and coalesce the different defects into 1 larger hernia defect (measuring 15cm x 10cm, mesh placed), ELYSSA drain placed. EBL 5cc WBC wnl, afebrile Hgb to 8.6 but noting had been on continuous IVF. Monitor ELYSSA output Pain control/antiemetics prn Clear liquids per general surgery -- discussed w/ patient not to advance unless passing gas. To alert of any worsening pain Some hypoxia overnight, CXR w/o acute finding. Incentive spirometry encouraged Na 134, no significant volume overload but discontinued IVF, holding off on giving any diuretics at present and will monitor need for prn diuretics Continues on ASA, can resume his eliquis for this evening (confirmed w/ Dr Farfan wanting 2.5mg BID given hx GI bleeding). Remains on PPI, increased to BID last evening PT/OT consults placed -- had been undergoing therapy as outpatient, stated ?7-8 sessions left. Depressed/poor sleep reported overnight regarding set backs from progress w/ recent knee surgery and use of walker. Discussed and scheduled low dose vistaril for tonight, 10mg scheduled. Discussed w/ psych given intermittent suicidal thoughts w/ son dx w/ ca AWSS protocol ordered given alcohol use reported, no withdrawal at present. Will order folate/b12, thiamine replacement Monitor labs in AM (2) Atrial fibrillation: Plan: Stable. EKG on admission w/ NSR, IVCD. Nonspec T wave abn in lateral leads improved compared to prior Remains on amiodarone/metoprolol Holding Eliquis in preparation for OR (last dose 01/13) -- resume when able when discussed with surgery --> for this evening 8/11 EKG w/ CP Cardiology consulted for pre-op clearance as above -- cleared for surgery Keep K/mag replete (3) HFrEF (heart failure with reduced ejection fraction): Plan: Euvolemic on admission , holding lasix (takes prn) while NPO. IVF ordered as above. continues on imdur Monitor I&O, 01/16--> no significant overload but will stop IVF at present/hold off prn lasix for now but can consider for tomorrow if needed added daily weights, pref standing scale (4) Hypertension: Plan: Stable 117/68 Continues on metoprolol, plan to resume lisinopril for tomorrow Monitor (5) Anxiety and depression: Plan: Continue Duloxetine [facility] liaison notified for intermittent SI/HI -- see note. Discussed and added Vistaril 10mg HS scheduled (6) Rheumatoid arthritis: Plan: Will hold rinvoq in the ryan-operative period --> discussed w/ Dr Aaron and ok to resume. Order placed -- med in pharmacy to be sent up (7) Coronary artery disease: Plan: Stable Continue aspirin and ranolazine NO CP reported at present (8) GERD (gastroesophageal reflux disease): Plan: Will switch him to scheduled daily IV famotidine while NPO --> Home medications listing omeprazole daily -- changed to protonix once daily while NPO instead of pepcid and increased to BID last evening for reported reflux w/ improvement in symtpoms Alcohol use prior occasional, reported increase to psych regarding son's diagnosis with cancer. AWSS protocol ordered. No active withdrawals. On gabapentin 300mg TID for pain control which can be adjusted as well B12/folate daily, given IV thiamine this morning and can start PO BID for tomorrow Plan continued inpatient stay clear liquids, eliquis to resume for tonight PT/OT consulted and discussed likely need for acute rehab w/ CM. CM to follow therapy evals Admission and Anticipated Discharge Date Admission Date: January 13, 2023 Supervising Physician Co-Signing Physician Notes The patient was not seen by me. The chart was reviewed. Case discussed with ISREAL Montenegro. Agree with assessment and plan Subjective Eval this morning, doing alright. Was unaware of drain and laid on last night, got blood to binder/sheet. Pain w/ coughing, on 2L O2 via NC. Discussed continued use incentive spirometer. Tolerating clear liquids but not passing much gas. Discussed continuing clears, to alert of any worsening pain, and encourage ambulation. He is discouraged about set back being in hospital and wanting to get stronger. Currently under therapy through [facility] -- will alert CM of likely ongoing need. Discussed will have nursing call therapy to see about getting him up/walking today. Poor sleep last night -- discussed Vistaril to help w/ sleep/mood/anxiety- he is wanting to trial this tonight and asking if it can be ordered. Joint pain from his RA, cleared w/ surgery ok to resume Rinvoq for today. Eliquis able to be resumed tonight. Physical Exam Physical Exam: General: WD/WN male sitting up in bed, NAD ,reading a book HEENT: head normocephalic, atraumatic, mmm, trachea midline Resp: CTA, slightly diminished in the bases, no w/c, on room air CV: RRR, no significant m/r/g, no pitting edema GI: +BS, slightly decreased, soft, tenderness to palpation, abdominal binder in place, bloody drainage noted from overnight per patient when laying on his ELYSSA drain, presently with ~40cc bloody drainage : no song MSK/Neuro: no focal deficits, no slurred speech, answering questions appropriately Psych: AOx3, cooperative with exam, no active SI/HI noted Results & Data Results & Data Vital Signs (Past 12 Hours) Vital Signs Temp Pulse Resp BP Pulse Ox Pulse Ox O2 Del Method 01/16/23 07:20 36.9 C 72 15 134/71 95 Nasal Cannula 01/16/23 02:11 93 01/15/23 22:00 Room Air 01/16/23 02:11 93 Nasal Cannula 01/16/23 02:11 36.8 C 78 20 104/56 L 85 L Room Air 01/15/23 21:58 36.7 C 79 18 127/67 93 Room Air O2 Del Method O2 Flow Rate O2 Flow Rate 01/16/23 07:20 2 01/16/23 02:11 Nasal Cannula 2 01/15/23 22:00 01/16/23 02:11 2 01/16/23 02:11 01/15/23 21:58 Diagnostic Findings Spine Flexion/Extension X-Ray 01/14/23 17:22 CERVICAL SPINE 6 VIEWS CLINICAL HISTORY: Preoperative examination. Rheumatoid arthritis. FINDINGS: AP, lateral, flexion, extension, swimmer's, and odontoid views of the cervical spine are obtained. No prior studies are available for comparison at the time of dictation. The skeletal structures are osteopenic. There is no radiographic evidence of fracture or subluxation involving the cervical spine. Note that C7 is only visualized on the swimmer's view. Vertebral body height and alignment are maintained throughout the cervical spine. There is straightening of the cervical lordosis. Anterior osteophytes are seen throughout. The spinolaminar line is preserved. The spinous processes appear intact. The odontoid process and lateral masses are intact as seen on the open-mouth view. Productive degenerative change is noted at the atlantodental articulation. No bony subluxation is seen on the flexion/extension views. Moderate to severe disc space narrowing is seen at all cervical levels between C3-C4 and C6-C7. Posterior disc osteophyte complex is likely contribute to multilevel acquired compromise of the central canal. Multilevel facet arthropathy is noted on the frontal view. The prevertebral soft tissues are normal in appearance. There is atherosclerotic calcification of the left carotid bulb. Upper lobe lung parenchyma is clear as visualized. IMPRESSION: 1. No acute bony abnormality is seen involving the cervical spine. 2. Osteopenia and spondylotic change as above. 3. No bony subluxation is seen on the flexion/extension views. Dictated: 01/15/2023 8:10 AM Transcribed: 01/15/2023 9:12 AM Emy [id number] Electronically signed by: Maxime Faust M.D. 01/15/2023 9:18 AM PG Care Time/CCT Total # of Minutes Spent Total Time Spent with Patient: Total time spent is greater than 50% in coordination of care (as documented) at patient's floor/unit and/or counseling patient: Coding Level of Care Code 78367 SUB INP/OBS CARE 3/50MIN Diagnoses Incisional hernia K43.2 Atrial fibrillation I48.91 HFrEF (heart failure with reduced ejection fraction) I50.20 Hypertension I10 Anxiety and depression F41.9; F32.A Rheumatoid arthritis M06.9 Coronary artery disease I25.10 GERD (gastroesophageal reflux disease) K21.9
[2023-01-16 08:28] LABS: Basophils # (auto) 0.01 K/uL (0-0.2); Basophils % (auto) 0.1 %; Hematocrit (blood only) 26.7 % (42.0-52.0); Hemoglobin 8.6 g/dl (14.0-18.0); Immature Granulocytes # (auto) 0.04 K/uL (0.01-0.20); Immature Granulocytes % (auto) 0.5 %; Lymphocytes # (auto) 0.36 K/uL (1.2-3.4); Lymphocytes % (auto) 4.3 %; Mean Corpuscular Hemoglobin 28.4 pg (25.0-34.0); Mean Corpuscular Hgb Conc 32.2 g/dL (32.0-36.0); Mean Corpuscular Volume 88.1 fL (80.0-100.0); Mean Platelet Volume 10.2 fL (9.4-12.4); Monocytes # (auto) 0.86 K/uL (0.11-0.59); Monocytes % (auto) 10.2 %; Neutrophils # (auto) 7.16 K/uL (1.40-6.50); Neutrophils % (auto) 84.9 %; Platelet Count 223 K/uL (130-400); RDW Coefficient of Variation 16.3 % (11.5-14.5); RDW Standard Deviation 52.6 fL (36.4-46.3); Red Blood Count 3.03 M/uL (4.70-6.10); White Blood Count 8.43 K/ul (4.8-10.8)
[2023-01-16 08:35] LABS: Albumin Globulin Ratio 1.4 (0.9-2); Albumin Level 3.4 gm/dl (3.4-5.0); Bilirubin,Total 0.5 mg/dl (0.2-1.0); Calcium 8.6 mg/dl (8.6-10.3); Creatinine Clr Calc Pharmacy 71.2 ml/min; Est GFR (Non-African American) 66.4 ml/min; Globulin 2.4 gm/dl (2.5-4.0); Magnesium 1.8 mg/dl (1.7-2.4); Potassium 4.2 mmol/L (3.5-5.1); Total Protein 5.8 gm/dl (6.0-8.3)
[2023-01-16 08:45] LABS: Prothrombin Time 11.4 Seconds (9.0-12.0)
[2023-01-16] MEDS ORDERED: THIAMINE HCL 200 MG in SODIUM CHLORIDE 0.9% 50 ML IV ONE (09:00)
[2023-01-16] MEDS ORDERED: oxyCODONE/ACETAMINOPHEN 5mg/325mg TAB PO PRN (09:30)
[2023-01-16] MEDS: CYANOCOBALAMIN (B-12) 500 MCG TABLET PO SCH (09:47)
[2023-01-16] MEDS: FOLIC ACID 1 MG TAB PO SCH (09:47)
[2023-01-16] MEDS: ceFAZolin 2000MG 2,000 MG/15 ML SYR IV SCH ×2 (10:50→17:52)
--- NOTE | 2023-01-16 11:57 | XRay Report ---
SINGLE VIEW CHEST CLINICAL HISTORY: Hypoxia FINDINGS: An AP, portable, upright chest radiograph is compared to study dated 01/13/2023. The examinat ion is degraded by portable technique and apical lordotic positioning. The heart is enlarged. The pul monary vasculature is noncongested. Chronic interstitial thickening is similar to previous. Scarring/ atelectasis is noted at the lung bases. There are scattered calcified granulomas. The lungs and pleur al spaces are clear. No pneumothorax is seen. The skeletal structures are osteopenic. The bony thorax is grossly intact. Advanced arthritic change is noted in the shoulders. IMPRESSION: Cardiomegaly with no acute cardiopulmonary abnormality identified. ACT 112: Negative or not required by law. Electronically signed by: Maxime Faust M.D. 01/16/2023 11:56 AM
[2023-01-16] MEDS ORDERED: MAGNESIUM SULFATE / D5W 1 GM/100 ML BAG IV ONE (14:45)
[2023-01-16] MEDS: APIXABAN 2.5 MG TAB PO SCH (20:50)
[2023-01-16] MEDS: hydrOXYzine HCl 10 MG TAB PO SCH (20:50)
[2023-01-16] MEDS: PRAVASTATIN SOD 40 MG TAB PO SCH (20:51)
[2023-01-16] MEDS: TRAVOPROST Z 0.004% OPH SOLN 2.5 ML BTL OPB SCH (20:53)
[2023-01-17] MEDS: oxyCODONE/ACETAMINOPHEN 5mg/325mg TAB PO PRN ×3 (00:10→18:32)
[2023-01-17] MEDS: ceFAZolin 2000MG 2,000 MG/15 ML SYR IV SCH ×3 (02:32→18:20)
[2023-01-17 06:11] LABS: Basophils # (auto) 0.03 K/uL (0-0.2); Basophils % (auto) 0.4 %; Eosinophils # (auto) 0.14 K/uL (0-0.50); Hematocrit (blood only) 25.1 % (42.0-52.0); Hemoglobin 8.1 g/dl (14.0-18.0); Immature Granulocytes # (auto) 0.03 K/uL (0.01-0.20); Immature Granulocytes % (auto) 0.4 %; Lymphocytes # (auto) 0.76 K/uL (1.2-3.4); Mean Corpuscular Hemoglobin 28.7 pg (25.0-34.0); Mean Corpuscular Hgb Conc 32.3 g/dL (32.0-36.0); Neutrophils # (auto) 5.07 K/uL (1.40-6.50); Neutrophils % (auto) 73.2 %; Platelet Count 220 K/uL (130-400); RDW Coefficient of Variation 16.6 % (11.5-14.5); Red Blood Count 2.82 M/uL (4.70-6.10); White Blood Count 6.93 K/ul (4.8-10.8)
[2023-01-17 06:35] LABS: Albumin Globulin Ratio 1.5 (0.9-2); Albumin Level 3.2 gm/dl (3.4-5.0); BUN Creatinine Ratio 16.7 (10-20); Bilirubin,Total 0.3 mg/dl (0.2-1.0); Calcium 8.2 mg/dl (8.6-10.3); Est GFR (African American) 70.5 ml/min; Est GFR (Non-African American) 60.8 ml/min; Globulin 2.2 gm/dl (2.5-4.0); Magnesium 1.9 mg/dl (1.7-2.4); Potassium 4.3 mmol/L (3.5-5.1); Total Protein 5.4 gm/dl (6.0-8.3)
--- NOTE | 2023-01-17 08:04 | Hospitalist Progress Note ---
Date of Service January 17, 2023 Assessment & Plan (1) Incisional hernia: Plan: Had been having progressive abdominal pain with associated constipation and nausea over the past 4 days as outpatient Ordered CTAP by outpatient provider --> There is a loop of small bowel in a right-sided hernia with proximal bowel dilation. This may be the source of lower abdominal pain. Incarcerated hernia cannot be excluded, correlation with physical exam is recommended. Additional findings as above. General surgery consulted POD# 2 s/p Open Incisional Hernia Repair(Not Applicable) - Rafy Aaron MD. EBL 5cc Per OP report, Multiple defects along the midline abdominal wall containing incarcerated omentum as well as bowel. Multiple defects and coalesce the different defects into 1 larger hernia defect (measuring 15cm x 10cm, mesh placed), ELYSSA drain placed. WBC wnl, afebrile Hgb 9.7 on admission --> has been on continuous IVF but hgb on AM labs 8.1. Discontinued further IVF, diet advanced from clears --> full liquid last night as passing gas -ELYSSA output 160cc + 190cc thus far -- monitor -Baseline anemia --> checked iron studies, iron/trans % sat LOW, unsat IBC HIGH - will order VENOFER for today, will plan 2nd dose for tomorrrow IVF discontinued Full liquid diet advanced by surgery for today Continue incentive spirometer Pain control/antiemetics prn Ambulation encouraged PT/OT consults pending -- likely need rehab Continues on ASA, resumed eliquis last evening per discussion with Dr Aaron (confirmed w/ Dr Farfan wanting 2.5mg BID given hx GI bleeding) Continue PPI, but increased to BID and would continue such AWSS protocol ordered given alcohol use reported, no withdrawal at present. Will order folate/b12, thiamine replacement. Vistaril used last night for anxiety/sleep and will continue Monitor labs in AM (2) Atrial fibrillation: Plan: Stable. EKG on admission w/ NSR, IVCD. Nonspec T wave abn in lateral leads improved compared to prior Remains on amiodarone/metoprolol Holding Eliquis in preparation for OR (last dose 01/13) -- resume when able when discussed with surgery --> for this evening 01/16 EKG w/ CP Cardiology consulted for pre-op clearance as above Keep K/mag replete 1gm IV mag for today, K stable (3) HFrEF (heart failure with reduced ejection fraction): Plan: Euvolemic on admission , holding lasix (takes prn) while NPO. IVF ordered as above now discontinued continues on imdur Monitor I&O No need for diuretics for now -- monitor, possible dose for tomorrow (4) Hypertension: Plan: Stable 112/67 Continues on metoprolol, lisinopril resumed Monitor (5) Anxiety and depression: Plan: Continue Duloxetine [facility] liaison notified for intermittent SI/HI -- see note. Discussed and added Vistaril 10mg HS scheduled (6) Rheumatoid arthritis: Plan: Will hold rinvoq in the ryan-operative period --> discussed w/ Dr Aaron and ok to resume. Order placed -- med in pharmacy to be sent up 01/16, improvement in pain symptoms (7) Coronary artery disease: Plan: Stable Continue aspirin and ranolazine NO CP reported at present (8) GERD (gastroesophageal reflux disease): Plan: Will switch him to scheduled daily IV famotidine while NPO --> Home medications listing omeprazole daily -- changed to protonix once daily while NPO instead of pepcid and increased to BID for reported reflux w/ improvement in symptoms and will continue. consider continuing at de Alcohol use prior occasional, reported increase to psych regarding son's diagnosis with cancer. AWSS protocol ordered. No active withdrawals. On gabapentin 300mg TID for pain control which can be adjusted as well B12/folate daily, given IV thiamine can started PO BID for 01/17 and would consider continuing at de No evidence for DTs at present Plan continued inpatient stay diet advanced by surgery, passing gas. Monitor for bowel movement therapy consults and likely req some rehab -- evals pending Admission and Anticipated Discharge Date Admission Date: January 13, 2023 Supervising Physician Co-Signing Physician Notes The patient was not seen by me. The chart was reviewed. Case discussed with ISREAL Montenegro. Agree with assessment and plan Subjective eval this morning, resting in bed, continues to pass gas. currently on full liquid diet, tolerating with boost. seen by foil operator last night. states pain improving, they just emptied ELYSSA drain. Said seen by surgery and if having bowel movement can advance diet and hopeful for dc to [facility] per patient. Discussed hemoglobin and iron studies/Venofer replacement in meantime. No fever/chills, no chest pain/shortness of breath. Abd binder changed yesterday, was ambulating in the halls a little. Questions/concerns addressed at this time. Physical Exam Physical Exam: General: WD/WN male sitting up in bed,NAD, appears more comfortable today Resp: CTA, slightly diminished in the bases, no w/c, on room air CV: RRR, no significant m/r/g, no pitting edema GI: +BS, improved today, soft, appropriately tender, ELYSSA just emptied, abd binder changed yesterday, c/d/i MSK/Neuro: no focal deficits, no slurred speech, answering questions appropriately, chronic hip pain undergoing therapy [employer] reported Psych: AOx3, cooperative with exam, no active SI/HI noted Results & Data Results & Data Vital Signs (Past 12 Hours) Vital Signs Temp Pulse Resp BP Pulse Ox O2 Del Method 01/17/23 07:02 37.1 C 76 17 112/67 96 Room Air 01/16/23 20:48 37.0 C 56 L 16 138/76 95 Room Air Laboratory Results 01/17/23 01/17/23 01/16/23 Range/Units 05:16 05:16 07:24 WBC 6.93 (4.8-10.8) K/ul RBC 2.82 L (4.70-6.10) M/uL Hgb 8.1 L (14.0-18.0) g/dl Hct 25.1 L (42.0-52.0) % MCV 89.0 (80.0-100.0) fL MCH 28.7 (25.0-34.0) pg MCHC 32.3 (32.0-36.0) g/dL RDW Std Deviation 53.0 H (36.4-46.3) fL RDW Coeff of Sammie 16.6 H (11.5-14.5) % Plt Count 220 (130-400) K/uL MPV 10.0 (9.4-12.4) fL Immature Gran % (Auto) 0.4 % Neut % (Auto) 73.2 % Lymph % (Auto) 11.0 % [place] % (Auto) 13.0 % Eos % (Auto) 2.0 % Baso % (Auto) 0.4 % Neut # (Auto) 5.07 (1.40-6.50) K/uL Lymph # (Auto) 0.76 L (1.2-3.4) K/uL [place] # (Auto) 0.90 H (0.11-0.59) K/uL Eos # (Auto) 0.14 (0-0.50) K/uL Baso # (Auto) 0.03 (0-0.2) K/uL Immature Gran # (Auto) 0.03 (0.01-0.20) K/uL PT (9.0-12.0) Seconds INR (0.9-1.1) Sodium 136 134 L (136-145) mmol/L Potassium 4.3 4.2 (3.5-5.1) mmol/L Chloride 104 103 (98-107) mmol/L Carbon Dioxide 28 27 (21-32) mmol/L Anion Gap 4 4 (3-11) BUN 19 17 (6-23) mg/dl Creatinine 1.14 1.06 (0.6-1.4) mg/dl Est Cr Clr Drug Dosing 67.0 71.2 ml/min Est GFR ( Amer) 70.5 77.0 ml/min Est GFR (Non-Af Amer) 60.8 66.4 ml/min BUN/Creatinine Ratio 16.7 16.0 (10-20) Glucose 113 H 133 H (70-99(Fasting)) mg/dl Calcium 8.2 L 8.6 (8.6-10.3) mg/dl Magnesium 1.9 1.8 (1.7-2.4) mg/dl Total Bilirubin 0.3 0.5 (0.2-1.0) mg/dl AST 22 22 (13-39) U/L ALT 15 15 (7-52) U/L Alkaline Phosphatase 47 51 (34-104) U/L Total Protein 5.4 L 5.8 L (6.0-8.3) gm/dl Albumin 3.2 L 3.4 (3.4-5.0) gm/dl Globulin 2.2 L 2.4 L (2.5-4.0) gm/dl Albumin/Globulin Ratio 1.5 1.4 (0.9-2) 01/16/23 01/16/23 Range/Units 07:24 07:24 WBC 8.43 (4.8-10.8) K/ul RBC 3.03 L (4.70-6.10) M/uL Hgb 8.6 L (14.0-18.0) g/dl Hct 26.7 L (42.0-52.0) % MCV 88.1 (80.0-100.0) fL MCH 28.4 (25.0-34.0) pg MCHC 32.2 (32.0-36.0) g/dL RDW Std Deviation 52.6 H (36.4-46.3) fL RDW Coeff of Sammie 16.3 H (11.5-14.5) % Plt Count 223 (130-400) K/uL MPV 10.2 (9.4-12.4) fL Immature Gran % (Auto) 0.5 % Neut % (Auto) 84.9 % Lymph % (Auto) 4.3 % [place] % (Auto) 10.2 % Eos % (Auto) 0.0 % Baso % (Auto) 0.1 % Neut # (Auto) 7.16 H (1.40-6.50) K/uL Lymph # (Auto) 0.36 L (1.2-3.4) K/uL [place] # (Auto) 0.86 H (0.11-0.59) K/uL Eos # (Auto) 0.00 (0-0.50) K/uL Baso # (Auto) 0.01 (0-0.2) K/uL Immature Gran # (Auto) 0.04 (0.01-0.20) K/uL PT 11.4 (9.0-12.0) Seconds INR 1.0 (0.9-1.1) Sodium (136-145) mmol/L Potassium (3.5-5.1) mmol/L Chloride (98-107) mmol/L Carbon Dioxide (21-32) mmol/L Anion Gap (3-11) BUN (6-23) mg/dl Creatinine (0.6-1.4) mg/dl Est Cr Clr Drug Dosing ml/min Est GFR ( Amer) ml/min Est GFR (Non-Af Amer) ml/min BUN/Creatinine Ratio (10-20) Glucose (70-99(Fasting)) mg/dl Calcium (8.6-10.3) mg/dl Magnesium (1.7-2.4) mg/dl Total Bilirubin (0.2-1.0) mg/dl AST (13-39) U/L ALT (7-52) U/L Alkaline Phosphatase (34-104) U/L Total Protein (6.0-8.3) gm/dl Albumin (3.4-5.0) gm/dl Globulin (2.5-4.0) gm/dl Albumin/Globulin Ratio (0.9-2) Diagnostic Findings Chest X-Ray 01/16/23 08:19 SINGLE VIEW CHEST CLINICAL HISTORY: Hypoxia FINDINGS: An AP, portable, upright chest radiograph is compared to study dated . The examination is degraded by portable technique and apical lordotic positioning. The heart is enlarged. The pulmonary vasculature is noncongested. Chronic interstitial thickening is similar to previous. Scarring/atelectasis is noted at the lung bases. There are scattered calcified granulomas. The lungs and pleural spaces are clear. No pneumothorax is seen. The skeletal structures are osteopenic. The bony thorax is grossly intact. Advanced arthritic change is noted in the shoulders. IMPRESSION: Cardiomegaly with no acute cardiopulmonary abnormality identified. ACT 112: Negative or not required by law. Electronically signed by: Maxime Faust M.D. 01/16/2023 11:56 AM PG Care Time/CCT Total # of Minutes Spent Total Time Spent with Patient: Total time spent is greater than 50% in coordination of care (as documented) at patient's floor/unit and/or counseling patient: Coding Level of Care Code 21270 SUB INP/OBS CARE 3/50MIN Diagnoses Incisional hernia K43.2 Atrial fibrillation I48.91 HFrEF (heart failure with reduced ejection fraction) I50.20 Hypertension I10 Anxiety and depression F41.9; F32.A Rheumatoid arthritis M06.9 Coronary artery disease I25.10 GERD (gastroesophageal reflux disease) K21.9
[2023-01-17 08:49] LABS: Ferritin 87.1 ng/ml (8-388)
[2023-01-17] MEDS ORDERED: lisinopril 10 MG TAB PO SCH (09:00)
[2023-01-17] MEDS ORDERED: IRON SUCROSE 300 MG in SODIUM CHLORIDE 0.9% 250 ML IV ONE (09:00)
[2023-01-17] MEDS: METOPROLOL TARTRATE 25 MG TAB PO SCH ×2 (09:14→21:08)
[2023-01-17] MEDS: SENNA 8.6 MG TAB PO SCH ×2 (09:15→21:09)
[2023-01-17] MEDS: APIXABAN 2.5 MG TAB PO SCH ×2 (09:15→21:08)
[2023-01-17] MEDS: AMIODARONE 200 MG TAB PO SCH (09:15)
[2023-01-17] MEDS: GABAPENTIN 300 MG CAP PO SCH ×3 (09:15→21:07)
[2023-01-17] MEDS: RANOLAZINE 500 MG ER TAB PO SCH ×2 (09:15→21:10)
[2023-01-17] MEDS: CYANOCOBALAMIN (B-12) 500 MCG TABLET PO SCH (09:15)
[2023-01-17] MEDS: ASPIRIN 81 MG ECTAB PO SCH (09:16)
[2023-01-17] MEDS: DULoxetine HCL 60 MG CAP PO SCH (09:16)
[2023-01-17] MEDS: FOLIC ACID 1 MG TAB PO SCH (09:17)
[2023-01-17] MEDS: THIAMINE HCL 100 MG TAB PO SCH ×2 (09:17→21:10)
[2023-01-17] MEDS: ISOSORBIDE MONO EXTENDED REL 60 MG TABCR PO SCH (09:17)
[2023-01-17] MEDS: PANTOprazole 40 MG in SYRINGE 0 ML IV SCH ×2 (09:18→21:11)
[2023-01-17] MEDS: RINVOQ 15 MG PO SCH (09:18)
--- NOTE | 2023-01-17 10:04 | Surgery Progress Note ---
Date of Service January 17, 2023 Assessment & Plan (1) Incisional hernia: Plan: Doing well. We will advance diet We will request physical therapy consult primarily for his hip issue which he was receiving treatment for at [facility] Admission and Anticipated Discharge Date Admission Date: January 13, 2023 Subjective Patient seen. Doing relatively well all things considered. Pain is controlled. He is tolerating full liquid diet without difficulty. Physical Exam Physical Exam: Alert. No acute distress Abdomen with expected tenderness. ELSYSA drain with pink serous fluid Results & Data Vital Signs (Past 12 Hours) Vital Signs Temp Pulse Resp BP Pulse Ox O2 Del Method 01/17/23 08:00 Room Air 01/17/23 07:02 37.1 C 76 17 112/67 96 Room Air PG Care Time/CCT Total # of Minutes Spent Total Time Spent with Patient: Total time spent is greater than 50% in coordination of care (as documented) at patient's floor/unit and/or counseling patient: Coding Level of Care Code 36055 Post Operative Follow-Up Diagnoses Incisional hernia K43.2
[2023-01-17] MEDS ORDERED: MAGNESIUM SULFATE / D5W 1 GM/100 ML BAG IV ONE (11:45)
[2023-01-17] MEDS: MoRPHine SULFATE 2 MG/ML CARP IV PRN ×2 (12:11→21:06)
[2023-01-17] MEDS ORDERED: ALBUT/IPRATROP 3MG/0.5MG NEB 3 ML VIAL NEB STA (18:48)
--- NOTE | 2023-01-17 19:16 | XRay Report ---
XR chest 1V portable HISTORY: Dyspnea on exertion. COMPARISON: Chest 01/16/2023. FINDINGS: There are low lung volumes. The heart remains enlarged. No no focal lung consolidations to suggest a pneumonia. No evidence for pulmonary edema. No pleural effusions. No pneumothorax. Degenera tive changes again noted within the shoulders. Calcified granuloma within the right midlung zone. IMPRESSION: No significant change compared to the prior study. No acute process. Stable cardiomegaly. ACT 112: Negative or not required by law. Electronically signed by: Kendall No M.D. 01/17/2023 7:14 PM
[2023-01-17] MEDS: PRAVASTATIN SOD 40 MG TAB PO SCH (21:10)
[2023-01-17] MEDS: hydrOXYzine HCl 10 MG TAB PO SCH (21:10)
[2023-01-17] MEDS: TRAVOPROST Z 0.004% OPH SOLN 2.5 ML BTL OPB SCH (21:10)
[2023-01-18] MEDS: ceFAZolin 2000MG 2,000 MG/15 ML SYR IV SCH (01:55)
[2023-01-18 06:14] LABS: Hematocrit (blood only) 24.9 % (42.0-52.0); Mean Corpuscular Hemoglobin 28.6 pg (25.0-34.0); Mean Corpuscular Hgb Conc 32.1 g/dL (32.0-36.0); Mean Corpuscular Volume 88.9 fL (80.0-100.0); Platelet Count 221 K/uL (130-400); RDW Coefficient of Variation 16.5 % (11.5-14.5); RDW Standard Deviation 54.2 fL (36.4-46.3); White Blood Count 6.81 K/ul (4.8-10.8)
[2023-01-18 06:28] LABS: BUN Creatinine Ratio 16.7 (10-20); Calcium 8.2 mg/dl (8.6-10.3); Creatinine Clr Calc Pharmacy 63.6 ml/min; Est GFR (African American) 66.3 ml/min; Est GFR (Non-African American) 57.2 ml/min; Magnesium 1.9 mg/dl (1.7-2.4); Potassium 4.1 mmol/L (3.5-5.1)
[2023-01-18] MEDS: GABAPENTIN 300 MG CAP PO SCH ×2 (08:11→14:20)
[2023-01-18] MEDS: SENNA 8.6 MG TAB PO SCH (08:12)
[2023-01-18] MEDS: CYANOCOBALAMIN (B-12) 500 MCG TABLET PO SCH (08:12)
[2023-01-18] MEDS: METOPROLOL TARTRATE 25 MG TAB PO SCH (08:12)
[2023-01-18] MEDS: FOLIC ACID 1 MG TAB PO SCH (08:12)
[2023-01-18] MEDS: AMIODARONE 200 MG TAB PO SCH (08:12)
[2023-01-18] MEDS: ISOSORBIDE MONO EXTENDED REL 60 MG TABCR PO SCH (08:13)
[2023-01-18] MEDS: THIAMINE HCL 100 MG TAB PO SCH (08:13)
[2023-01-18] MEDS: ASPIRIN 81 MG ECTAB PO SCH (08:13)
[2023-01-18] MEDS: DULoxetine HCL 60 MG CAP PO SCH (08:13)
--- NOTE | 2023-01-18 08:13 | Hospitalist Progress Note ---
Date of Service January 18, 2023 Assessment & Plan (1) Incisional hernia: Plan: Had been having progressive abdominal pain with associated constipation and nausea over the past 4 days as outpatient Ordered CTAP by outpatient provider --> There is a loop of small bowel in a right-sided hernia with proximal bowel dilation. This may be the source of lower abdominal pain. Incarcerated hernia cannot be excluded, correlation with physical exam is recommended. Additional findings as above. General surgery consulted POD# 3 s/p Open Incisional Hernia Repair(Not Applicable) - Rafy Aaron MD. EBL 5cc Per OP report, Multiple defects along the midline abdominal wall containing incarcerated omentum as well as bowel. Multiple defects and coalesce the different defects into 1 larger hernia defect (measuring 15cm x 10cm, mesh placed), ELYSSA drain placed. WBC wnl, afebrile Hgb 9.7 on admission --> has been on continuous IVF but hgb on AM labs 8.1. Discontinued further IVF, diet advanced from clears --> full liquid last night as passing gas -ELYSSA output 160cc + 190cc + 245cc thus far -Baseline anemia --> checked iron studies, iron/trans % sat LOW, unsat IBC HIGH . Venofer 300mg on 01/17, plan for additional dose for today IVF discontinued Full liquid diet advanced by surgery low fiber Continue incentive spirometer, given neb tx last night for wheezing. CXR similar to prior, no hypoxia, on room air Pain control/antiemetics prn Ambulation encouraged PT/OT consults pending -- likely need rehab Continues on ASA, resumed eliquis last evening per discussion with Dr Aaron (confirmed w/ Dr Farfan wanting 2.5mg BID given hx GI bleeding) Continue PPI, but increased to BID and would continue such AWSS protocol ordered given alcohol use reported, no withdrawal at present. Ordered folate/b12, thiamine replacement. Vistaril used for anxiety/sleep and will continue Monitor labs in AM (2) Atrial fibrillation: Plan: Stable. EKG on admission w/ NSR, IVCD. Nonspec T wave abn in lateral leads improved compared to prior Remains on amiodarone/metoprolol Holding Eliquis in preparation for OR (last dose 01/13) -- resume when able when discussed with surgery --> for this evening 01/16 EKG w/ CP Cardiology consulted for pre-op clearance as above Keep K/mag replete 1gm IV mag for today, K stable (3) HFrEF (heart failure with reduced ejection fraction): Plan: Euvolemic on admission , holding lasix (takes prn) while NPO. IVF ordered as above now discontinued continues on imdur Monitor I&O No need for diuretics for now -- monitor, possible dose for tomorrow (4) Hypertension: Plan: Stable 112/67 Continues on metoprolol, lisinopril resumed Monitor (5) Anxiety and depression: Plan: Continue Duloxetine [facility] liaison notified for intermittent SI/HI -- see note. Discussed and added Vistaril 10mg HS scheduled (6) Rheumatoid arthritis: Plan: Will hold rinvoq in the ryan-operative period --> discussed w/ Dr Aaron and ok to resume. Order placed -- med in pharmacy to be sent up 01/16, improvement in pain symptoms (7) Coronary artery disease: Plan: Stable Continue aspirin and ranolazine NO CP reported at present (8) GERD (gastroesophageal reflux disease): Plan: Will switch him to scheduled daily IV famotidine while NPO --> Home medications listing omeprazole daily -- changed to protonix once daily while NPO instead of pepcid and increased to BID for reported reflux w/ improvement in symptoms and will continue. consider continuing [place] Alcohol use prior occasional, reported increase to psych regarding son's diagnosis with cancer. AWSS protocol ordered. No active withdrawals. On gabapentin 300mg TID for pain control which can be adjusted as well B12/folate daily, given IV thiamine can started PO BID for 01/17 and would consider continuing [place] No evidence for DTs at present Plan continued inpatient stay diet advanced by surgery, passing gas. Monitor for bowel movement therapy consults and likely req some rehab -- evals pending Admission and Anticipated Discharge Date Admission Date: January 13, 2023 Results & Data Results & Data Vital Signs (Past 12 Hours) Vital Signs Temp Pulse Resp BP Pulse Ox O2 Del Method 01/18/23 06:55 36.7 C 59 L 17 122/71 93 Room Air 01/17/23 21:00 36.8 C 62 18 124/73 95 Room Air Laboratory Results 01/18/23 01/18/23 01/17/23 Range/Units 05:46 05:46 05:16 WBC 6.81 (4.8-10.8) K/ul RBC 2.80 L (4.70-6.10) M/uL Hgb 8.0 L (14.0-18.0) g/dl Hct 24.9 L (42.0-52.0) % MCV 88.9 (80.0-100.0) fL MCH 28.6 (25.0-34.0) pg MCHC 32.1 (32.0-36.0) g/dL RDW Std Deviation 54.2 H (36.4-46.3) fL RDW Coeff of Sammie 16.5 H (11.5-14.5) % Plt Count 221 (130-400) K/uL MPV 10.0 (9.4-12.4) fL Sodium 135 L (136-145) mmol/L Potassium 4.1 (3.5-5.1) mmol/L Chloride 103 (98-107) mmol/L Carbon Dioxide 29 (21-32) mmol/L Anion Gap 3 (3-11) BUN 20 (6-23) mg/dl Creatinine 1.20 (0.6-1.4) mg/dl Est Cr Clr Drug Dosing 63.6 ml/min Est GFR ( Amer) 66.3 ml/min Est GFR (Non-Af Amer) 57.2 ml/min BUN/Creatinine Ratio 16.7 (10-20) Glucose 92 (70-99(Fasting)) mg/dl Calcium 8.2 L (8.6-10.3) mg/dl Magnesium 1.9 (1.7-2.4) mg/dl Iron 17 L (35-175) mcg/dl TIBC 326 (250-450) mcg/dl Unsaturated IBC 309 (155-355) mcg/dl Transferrin % Sat 5 L (20-50) % Ferritin 87.1 (8-388) ng/ml Diagnostic Findings Chest X-Ray 01/17/23 18:13 XR chest 1V portable HISTORY: Dyspnea on exertion. COMPARISON: Chest 01/16/2023. FINDINGS: There are low lung volumes. The heart remains enlarged. No no focal lung consolidations to suggest a pneumonia. No evidence for pulmonary edema. No pleural effusions. No pneumothorax. Degenerative changes again noted within the shoulders. Calcified granuloma within the right midlung zone. IMPRESSION: No significant change compared to the prior study. No acute process. Stable cardiomegaly. ACT 112: Negative or not required by law. Electronically signed by: Kendall No M.D. 01/17/2023 7:14 PM PG Care Time/CCT Total # of Minutes Spent Total Time Spent with Patient: Total time spent is greater than 50% in coordination of care (as documented) at patient's floor/unit and/or counseling patient: Coding Diagnoses Incisional hernia K43.2 Atrial fibrillation I48.91 HFrEF (heart failure with reduced ejection fraction) I50.20 Hypertension I10 Anxiety and depression F41.9; F32.A Rheumatoid arthritis M06.9 Coronary artery disease I25.10 GERD (gastroesophageal reflux disease) K21.9
[2023-01-18] MEDS: PANTOprazole 40 MG in SYRINGE 0 ML IV SCH (08:14)
[2023-01-18] MEDS: APIXABAN 2.5 MG TAB PO SCH (08:14)
[2023-01-18] MEDS: RANOLAZINE 500 MG ER TAB PO SCH (08:14)
[2023-01-18] MEDS: RINVOQ 15 MG PO SCH (08:14)
[2023-01-18] MEDS: oxyCODONE/ACETAMINOPHEN 5mg/325mg TAB PO PRN (08:16)
--- NOTE | 2023-01-18 10:04 | Discharge Summary ---
Date of Service January 18, 2023 Admission HPI Per Admitting Provider Lowell is a 77 year old male with a PMH significant for afib on Eliquis, HFpEF (LVEF of 55-60% as of 07/17/22), CAD S/P TRUDY X 2 in 2016, RA on Rinvoq, lumbar stenosis, Anxiety/depression, and GERDwho presented to the [facility] ED on 01/[address] findings earlier today. Per chart review, the patient saw his PCP earlier today for 4 days of progressive abdominal pain. CT of the abd/pelvis with oral and IV con was read as "There is a loop of small bowel in a right-sided hernia with proximal bowel dilation. This may be the source of lower abdominal pain. Incarcerated hernia cannot be excluded, correlation with p hysical exam is recommended. Additional findings as above.". His PCP instructed him to go to the ED after receiving the results. The patient has remained stable since arrival. Labs were significant for for a BUN of 26, Cr of 1.18 (baseline is near 1.0), sodium of 134, lipase WNL and covid 19 negative. General evaluated the patient and will plan to take him to the OR, non-emergently for repair as t hey believe the hernia will continue to protrude and risk further incarceration. We were asked to admit the patient to our service with Cardiology consult tomorrow for operative clearance. Prior to admission the patient was given 1L NSS and 6 mg IV morphine. At the time of the exam the patient was lying in bed in no acute distress. He states that he started to develop abdominal pain and constipation approximately 4 days ago. He took a stool softener yesterday and two small, soft, non-bloody bowel movements yesterday. Since then his lower abdominal pain had progressed. He has previous abdominal hernias from his previously reversed colostomy and bowel resection surgical scars, however, this normally reduce easily on their own. Currently his pain is a 5/10 after receiving morphine in the ED. When asked about recent activity, he states that he tries to do approximately 40 min of cardio daily. He denies recent decreases in exercise tolerance or recent chest pain/SOB. He denies recent fever, chills, chest pain, SOB, vomiting, dysuria, hematuria, melena, significant LE swelling, and recent trauma. He took his am medications, this includes his aspirin and Eliquis. We discussed code status, he wishes to be a Full Code as his son was recently diagnosed with pancreatic cancer and he would like to try and support him as long as possible. Please refer to Dr. Betts's attestation for any changes to the treatment plan Admission Exam Per Admitting Provider Physical Exam: General:In no acute distress, stated age, well-nourished, good hygiene, non- toxic appearing HEENT:Normocephalic, atraumatic, no scleral icterus, pupils around round, symmetrical, and reactive to light, moist mucus membranes, trachea midline, no thyromegaly Chest/Pulm:No respiratory distress, symmetrical chest expansion, clear breath sounds throughout Cardiac:RRR, no murmurs noted Abdomen:Negative for ascites and bruising, no current incarcerated abdominal hernias noted in inspection, normoactive bowel sounds, soft, tender to palpation in the lower abdominal hathaway Musculoskeletal:Symmetrical and without signs of acute trauma, upper and lower extremities with full ROM, no atrophy, spasticity, or flaccidity Extremities:Radial, dorsalis pedis, and posterior tibial pulses are intact and symmetrical, no edema noted in the BL LE's Skin:Warm, dry, no rashes , lesions, or scars noted Neuro:Alert and oriented to person, place, month, year, and president, no focal defects, no tremors noted Psych:No acute distress, calm and cooperative during the exam Principal Diagnosis Incisional Hernia with strangulation Discharge Exam General: WD 77yo male, appears more comfortable today, sitting up in chair reading a book Resp: CTA, slightly diminished in the bases, no significant wheezing/rales, bibasilar crackles (encouraged continued incentive spirometer), on room air CV: RRR, no significant m/r/g, trace pedal edema GI: +BS, improved today (reported BM this morning), appropriately tender to palpation around incisoin, no rigidity, ABD in place, c/d/i, ELYSSA with continued serosanguineous drainage MSK/Neuro: no focal deficits, no slurred speech, answering questions appropriately Psych: AOx3, cooperative with exam, no active SI/HI noted, wanting to go home Discharge Data Allergies Allergy/AdvReac Type Severity Reaction Status Date / Time cat dander Allergy Severe Swelling Verified 01/15/23 10:35 of Lip/Tongue/Throat Consultations 01/13/23 18:32 Consult General Surgery Stat 01/13/23 19:43 ED Decision to Admit Stat 01/13/23 20:26 Consult Cardiology Routine 01/14/23 00:30 Consult Behavioral Health Liaison Routine 01/15/23 17:29 Consult Psychiatry Routine Procedures Performed Operation Date: 01/15/23 11:15 Actual Procedures p Open Incisional Hernia Repair(Not Applicable) - Rafy Aaron MD Ordered Studies OUTPATIENT CTAP PRIOR TO ADMISSION ORDERED BY PCP: CT abd pelvis oral and IV con CLINICAL HISTORY: R10.30 - Lower abdominal pain, unspecified TECHNIQUE: Helical axial images of the abdomen and pelvis were obtained and displayed. Automated dose lowering techniques and/or adjustment according to patient size were utilized for this exam. This exam was performed with intravenous contrast. CT DOSE: 1403.48 mGy.cm COMPARISON: None available at the time of this dictation. FINDINGS: Lower chest: Bibasilar atelectasis versus scarring is seen. Liver: Unremarkable. No focal lesions are seen. Gallbladder and biliary tree: No calcified gallstones. Normal caliber wall. No intra- or extrahepatic biliary ductal dilation. Pancreas: Unremarkable, no focal lesions. Spleen: Calcifications are noted in the spleen compatible with prior granulomatous disease. Adrenals: Unremarkable. Kidneys and ureters: Renal cysts are seen. Bladder: Unremarkable. Reproductive organs: Unremarkable. Bowel: Postsurgical changes of sigmoid colon resection. Diverticulosis is seen without diverticulitis. Patient is status post appendicitis. There is a right of midline hernia containing a loop of bowel. The proximal small bowel is dilated. Lymph nodes Retroperitoneal: Subcentimeter lymph nodes are noted. Pelvic: Unremarkable. Mesenteric: Unremarkable. Peritoneum: Normal. Vessels: Unremarkable. Abdominal wall: Fat-containing midline and left-sided hernias and fat and bowel containing right of midline hernia are seen. Bones: Degenerative changes in the visualized spine. There are pars defects at L5-S1 with grade 2 anterolisthesis. Right hip total arthroplasty is seen. IMPRESSION: There is a loop of small bowel in a right-sided hernia with proximal bowel dilation. This may be the source of lower abdominal pain. Incarcerated hernia cannot be excluded, correlation with physical exam is recommended. Additional findings as above. ACT 112: Negative or not required by law. Electronically signed by: Ramón You M.D. 01/13/2023 5:29 PM Dictated:01/13/23 1712 Transcribed: 01/13/23 1712 Chest X-Ray 01/13/23 20:25 XR chest 1V portable CLINICAL HISTORY: clearance for OR with general surgery TECHNIQUE: Single frontal radiograph of the chest was obtained. Comparison: Comparison is made to chest radiograph 11/28/2022 FINDINGS: No lines and tubes are seen. The cardiomediastinal silhouette is normal. The lungs are clear. No evidence of pleural effusion or pneumothorax. IMPRESSION: No acute chest disease. ACT 112: Negative or not required by law. Electronically signed by: Ramón You M.D. 01/14/2023 8:08 AM Spine Flexion/Extension X-Ray 01/14/23 17:22 CERVICAL SPINE 6 VIEWS CLINICAL HISTORY: Preoperative examination. Rheumatoid arthritis. FINDINGS: AP, lateral, flexion, extension, swimmer's, and odontoid views of the cervical spine are obtained. No prior studies are available for comparison at the time of dictation. The skeletal structures are osteopenic. There is no radiographic evidence of fracture or subluxation involving the cervical spine. Note that C7 is only visualized on the swimmer's view. Vertebral body height and alignment are maintained throughout the cervical spine. There is straightening of the cervical lordosis. Anterior osteophytes are seen throughout. The spinolaminar line is preserved. The spinous processes appear intact. The odontoid process and lateral masses are intact as seen on the open-mouth view. Productive degenerative change is noted at the atlantodental articulation. No bony subluxation is seen on the flexion/extension views. Moderate to severe disc space narrowing is seen at all cervical levels between C3-C4 and C6-C7. Posterior disc osteophyte complex is likely contribute to multilevel acquired compromise of the central canal. Multilevel facet arthropathy is noted on the frontal view. The prevertebral soft tissues are normal in appearance. There is atherosclerotic calcification of the left carotid bulb. Upper lobe lung parenchyma is clear as visualized. IMPRESSION: 1. No acute bony abnormality is seen involving the cervical spine. 2. Osteopenia and spondylotic change as above. 3. No bony subluxation is seen on the flexion/extension views. Dictated: 01/15/2023 8:10 AM Transcribed: 01/15/2023 9:12 AM Emy [id number] Electronically signed by: Maxime Faust M.D. 01/15/2023 9:18 AM Chest X-Ray 01/16/23 08:19 SINGLE VIEW CHEST CLINICAL HISTORY: Hypoxia FINDINGS: An AP, portable, upright chest radiograph is compared to study dated 01/13/2023. The examination is degraded by portable technique and apical lordotic positioning. The heart is enlarged. The pulmonary vasculature is noncongested. Chronic interstitial thickening is similar to previous. Scarring/atelectasis is noted at the lung bases. There are scattered calcified granulomas. The lungs and pleural spaces are clear. No pneumothorax is seen. The skeletal structures are osteopenic. The bony thorax is grossly intact. Advanced arthritic change is noted in the shoulders. IMPRESSION: Cardiomegaly with no acute cardiopulmonary abnormality identified. ACT 112: Negative or not required by law. Electronically signed by: Maxime Faust M.D. 01/16/2023 11:56 AM Chest X-Ray 01/17/23 18:13 XR chest 1V portable HISTORY: Dyspnea on exertion. COMPARISON: Chest 01/16/2023. FINDINGS: There are low lung volumes. The heart remains enlarged. No no focal lung consolidations to suggest a pneumonia. No evidence for pulmonary edema. No pleural effusions. No pneumothorax. Degenerative changes again noted within the shoulders. Calcified granuloma within the right midlung zone. IMPRESSION: No significant change compared to the prior study. No acute process. Stable cardiomegaly. ACT 112: Negative or not required by law. Electronically signed by: Kendall No M.D. 01/17/2023 7:14 PM Hospital Course (1) Incisional hernia: Had been having progressive abdominal pain with associated constipation and nausea over the past 4 days as outpatient and was ordered CTAP by outpatient provider prior to admission with showed "loop of small bowel in a right-sided hernia with proximal bowel dilation. This may be the source of lower abdominal pain. Incarcerated hernia cannot be excluded, correlation with physical exam is recommended" General surgery consulted s/p Open Incisional Hernia Repair(Not Applicable) - Rafy Aaron MD on 01/15. EBL 5cc Per OP report, Multiple defects along the midline abdominal wall containing incarcerated omentum as well as bowel. Multiple defects and coalesce the different defects into 1 larger hernia defect (measuring 15cm x 10cm, mesh placed), ELYSSA drain placed and will remain in place until follow up next week WBC wnl, afebrile Ancef IV abx per surgery (rx to continue keflex at discharge sent by surgery) Hgb did drop from 9.1--> 8.6 following surgery and had been on continuous IVF pre-post operatively until diet advanced from clears, drop slowed from 8.1--> 8.0 on repeat labs Iron studies obtained which showed low iron/trans%sat and elevated unsaturated IBC and was given Venofer 01/17 and repeated dose prior to discharge and he can continue his oral supplementation at discharge. ELYSSA of note had continued output, 160cc, then 190cc, then 245cc prior to discharge Patient did NOT want to stay in hospital any longer and discussed monitoring and recording output at discharge and alerted of ANY warning signs to return to the ER. Eliquis resumed 2.5mg BID PM 01/16 as discussed with surgery Messaged Dr Farfan given age/weight/renal function should be on 5mg BID. He would like patient to be on 2.5mg BID given his history of bleeding and will follow up outpatient Did increase PPI to BID during inpatient stay, no blood in stool reported. Rec to continue PPI BID at discharge and sent rx Messaged general surgery regarding ELYSSA output/blood counts given patient wanting to leave and not stay inpatient any longer. They noted if patient feeling well/eating low fiber diet and moving bowels (+BM 01/18), he is stable for discharge and already has follow up with Dr Aaron this upcoming week for drain removal PT/OT consulted and agreed patient able to return independent living and continue rehab already arranged at [facility]. They will have visiting nurse come to check on him as well to make sure recording properly and no issues w/ drain Patient to call family for transportation this afternoon once Venofer infused. continue prior oral supp/ppi bid at [place]. (2) Atrial fibrillation: Stable. EKG on admission w/ NSR, IVCD. Nonspec T wave abn in lateral leads improved compared to prior Remained on amiodarone/metoprolol Eliquis held, resumed 01/16 PM as above once ok'd with surgery Cardiology consulted for pre-op clearance prior to procedure Kept K/Mag replete (3) HFrEF (heart failure with reduced ejection fraction): Euvolemic on admission and his prn lasix placed on hold Was on IVF, discontinued once diet advanced and remained stable on room air Some wheezing evening 01/17 however CXR unchanged/no significant pulm edema Did give breathing treatment w/ improvement/resolution and no SOB reported. Encouraged continued use of incentive spirometer Discussed monitoring for any edema/prn lasix at home if needed Continued on imdur for his hx CAD, no CP reported (4) Hypertension: Stable Continued on metoprolol, lisinopril resumed BP 122/71 prior to discharge (5) Anxiety and depression: Continued Duloxetine [facility] liaison notified for intermittent SI/HI, psych consulted. See note. Discussed w/ Dr Pearson and added Vistaril 10mg HS scheduled while inpatient. Support provided -- sent short rx for prn for sleep/anxiety at discharge and instructed to f/u PCP for ongoing issues if needed (6) Rheumatoid arthritis: Held rinvoq in the ryan-operative period --> discussed w/ Dr Aaron and ok'd to resume and this was resumed on 01/16 given complaints joint pain with reported improvement (7) Coronary artery disease: Stable Continued aspirin and ranolazine NO CP reported (8) GERD (gastroesophageal reflux disease): Initially placed on pepcid, however home medications listed omeprazole and yasir given hx bleeding, switched back to protonix while inpatient and increased to BID given reported reflux w/ improvement and given hx bleed/hgb levels decision to continue PPI BID at discharge for now I Alcohol use AWSS protocol ordered. No active withdrawals while inpatient. On gabapentin 300mg TID for pain control which can be adjusted as well on outpatient if needed B12/folate daily, IV thiamine while inpatient Continued B12/folate/thiamine at [facility] given chronic use which was recently increased. Encouraged cutting back on alcohol use Plan discharged with family, abx w/ keflex as sent by surgery, pain control ELYSSA to remain in place until seen by Dr Aaron this upcoming week per discussion with Dr Love. Per surgery, carmita for discharge Instructed patient to continue incentive spirometer and monitor for any worrisome signs and to return to ER if these occur. Total Time Total Time Spent Total Time Spent (In Minutes): 60 Discharge Plan Discharge Items Patient Disposition: Home - Home Health Services Reason For Visit: INCARCERTAED HERNIA Discharge Diagnosis: Incarcerated Hernia Goals: You have been hospitalized for an urgent problem which required surgery. During your stay at [facility] [address], we have made an effort to correct the problem that brought you to the hospital while keeping you as comfortable as possible. Surgery and medications were used to bring your condition under control and your discharge instructions will include directions for any medications you should take after leaving the hospital. Please make sure to follow the advice of your surgeon regarding follow up with the surgeon and with your primary care provider. Activity: As commented below Non-emergency contact: Primary Care Provider and Surgeon Call non-emergency contact if: you have any medication questions, your symptoms worsen and your pain is not controlled Follow-up/Referrals: Rafy Aaron MD [Physician] - 01/20/23 11:00 am Danny Soliman DO [Primary Care Provider] - 01/27/23 11:30 am Diet: Heart Healthy and Low Fiber Diet Comment: low fiber diet for 2 weeks, then advance as tolerated Addtl Attending Provider Instructions: You have been hospitalized for incisional hernia with strangulation and surgery was consulted and you underwent repair. Your diet has been advanced and you have moved your bowels. You can continue Percocet for pain medications at home as prescribed by surgery for control and continue bowel regimen to prevent constipation if this occurs. You were given IV Venofer for anemia and can continue your oral supplementation with vitamin C at discharge. You are continued on oral antibiotic with cephalexin per surgery to complete the course. Therapy evaluated you and you can return to current level of living and continue therapy as previously arranged. You should continue to empty your drain and record the output. You have an appointment on the with Dr Aaron to have the drain removed. I have continued Vistaril low dose 10mg at night for sleep/anxiety and mood and you can use this as needed at night. Encourage decreasing your alcohol intake and taking over the counter B12/folate/thiamine supplementations as this will help blood counts improve as well. Please follow up with primary care in the next 7-10 days to monitor your status. discussed, please return to the ER with any chest pain, shortness of breath, worsening abdominal pain, lightheadedness, dizziness or for any other symptoms concerning for you. It has been a pleasure being a part of the medical team providing for you while you have been in the hospital. Take care! Addtl Coal Unloader Provider Instructions: ACTIVITY RECOMMENDATIONS: * Walk as much as possible. * No heavy lifting (>10 lbs.) for at least 6 weeks. SPECIAL CARE INSTRUCTIONS: * Wear abdominal binder daily for support and compression. You may remove this in evening * Ice to hernia repair site on and off until bedtime tonight. * May shower in 24 hours. Let water run over area and pat dry. * Surgical marcello will be removed in office in 10-14 days. * Surgical drain will be removed in office early next week. Keep record of output and color and bring ot office with you. Empty drain as needed and daily. * Call the surgeon's office with any questions or concerns - (ex. temperature higher than 101 degrees F, excessive bleeding or pain). MEDICATIONS: Resume previous medications unless instructed otherwise by your surgeon. * May alternate extra strength Tylenol and Ibuprofen as needed for mild to moderate pain -650 mg Tylenol every 6 hours as needed - Ibuprofen 600 mg every 6 hours as needed (take with food) * Percocet 1 every 6 hours, as needed for moderate to severe pain * recommend daily stool softener (Colace) while taking narcotic pain medication to prevent constipation or straining * Take antibiotics as prescribed until drain is removed on Thursday. Finish entire course. FOLLOW UP VISIT: You are scheduled for a nurse visit at [facility] for drain removal on 01/20/23 at 11:00 am You are scheduled for a postop visit with Dr. Aaron on 01/28/23 at 11:30 am Office number Pending Studies at Discharge: No Stand-Alone Forms: My [facility], Smoking Cessation Medications and DC Order Prescriptions: New cephalexin 500 mg capsule 500 mg PO Q6H 4 Days Qty: 16 0RF oxycodone-acetaminophen [Percocet] 5-325 mg tablet 1 tab PO Q6H PRN (Reason: pain) Qty: 12 0RF cyanocobalamin (vitamin B-12) 500 mcg Tablet 1,000 mcg PO QAM Qty: 30 0RF hydroxyzine HCl 10 mg Tablet 10 mg PO HS PRN (Reason: anxiety or insomnia) Qty: 14 0RF folic acid 1 mg Tablet 1 mg PO QAM Qty: 30 0RF thiamine HCl (vitamin B1) 100 mg Tablet 100 mg PO BID Qty: 60 0RF Continued acetaminophen 500 mg capsule 1,000 mg PO TID Rx Instructions: takes with gabapentin nitroglycerin 0.4 mg tablet, sublingual 0.4 mg sublingual Q5M PRN (Reason: chest pain) Qty: 30 0RF Rx Instructions: do not exceed 3 doses per episode cholecalciferol (vitamin D3) 250 mcg (10,000 unit) tablet 250 mcg PO DAILY 90 Days Qty: 90 3RF metoprolol tartrate 25 mg tablet 12.5 mg PO BID Qty: 60 2RF Rx Instructions: for your heart and high blood pressure omega 0-xqo-bnf-fish oil [Fish Oil] 1,000 mg (120 mg-180 mg) capsule 1 cap PO QAM Qty: 30 3RF duloxetine 60 mg capsule,delayed release(DR/EC) 60 mg PO DAILY Qty: 90 3RF senna 8.6 mg capsule 8.6 mg PO AMHS clobetasol 0.05 % cream 1 applic topical BID 14 Days Qty: 30 0RF furosemide 20 mg tablet 20 mg PO DAILY PRN (Reason: edema or weight gain) Qty: 30 5RF amiodarone 200 mg tablet 200 mg PO QAM aspirin [Adult Low Dose Aspirin] 81 mg tablet,delayed release (DR/EC) 81 mg PO QAM isosorbide mononitrate 60 mg tablet extended release 24 hr 60 mg PO QAM lisinopril 10 mg tablet 10 mg PO QAM cuaiicmh-hortmqa-iefs-lutein Tablet 1 tab PO QAM coenzyme Q10 100 mg capsule 10 mg PO QAM melatonin 5 mg capsule 5 mg PO HS Adult 50 Plus Probiotic 4 billion cell capsule 6,000 mmu cells PO QAM Rx Instructions: administer with a meal ascorbic acid (vitamin C) 500 mg capsule 1,000 mg PO QAM Eliquis 2.5 mg tablet 2.5 mg PO BID pravastatin 40 mg tablet 40 mg PO HS ranolazine 500 mg tablet extended release 12 hr 500 mg PO BID gabapentin 300 mg capsule 300 mg PO TID Rx Instructions: take 1 capsule daily at bedtime for 5 days , then twice a day for 5 days, then 3 times a day..ordered 01/06/23 travoprost [Travatan Z] 0.004 % drops 1 drp OPB QPM Rinvoq 15 mg tablet extended release 24 hr 15 mg PO QAM Changed esomeprazole magnesium [Nexium] 40 mg capsule,delayed release(DR/EC) 40 mg PO BID Qty: 60 0RF Discharge Orders: Discharge Order (Routine); Ordered 01/18/23 Ordered By: Yeni Fleming/Other Patient Handouts: Walker Roque Drain Tube Dc, Post Op Drain Emptying Steps Admission Data Admit Date/Time: 01/13/23 20:04 Attending Provider: Arnoldo Yarbrough Admit Provider: Margi Betts Primary Care Provider: Danny Soliman Other Providers: Irwin Dangelo ; Margi Betts ; Christopher Munoz ; Roberta Pearson ; Joanne Raza ; Jae Clark ; Kelli Middleton Osborn Other Interventions: Discharge Summary Assessment (RN) Last Done: 01/18/23 11:03 Supervising Physician Co-Signing Physician Notes The patient was not seen by me. The chart was reviewed. Case discussed with ISREAL Montenegro. Agree with assessment and plan. He will be discharged home today, January 18 Coding Level of Care Code 17270 INP/OBS DISCH >30 MIN Diagnoses Incisional hernia K43.2 Atrial fibrillation I48.91 HFrEF (heart failure with reduced ejection fraction) I50.20 Hypertension I10 Anxiety and depression F41.9; F32.A Rheumatoid arthritis M06.9 Coronary artery disease I25.10 GERD (gastroesophageal reflux disease) K21.9
[2023-01-18] MEDS ORDERED: IRON SUCROSE 200 MG in SODIUM CHLORIDE 0.9% 250 ML IV ONE (11:45)
[2023-01-18] MEDS ORDERED: IRON SUCROSE 300 MG in SODIUM CHLORIDE 0.9% 250 ML IV ONE (11:45)
== END 2023-01-18 15:06 | disposition home health service (06) | DRG 354 ==
LOC: ED 18:17 → SUATTDRO 20:04 → 3N 20:04

== ENCOUNTER 2023-02-05 20:11 | Inpatient (IN) ==
[2023-02-05 21:26] LABS: Hematocrit (blood only) 31.2 % (42.0-52.0); Hemoglobin 10.2 g/dl (14.0-18.0); Mean Corpuscular Hemoglobin 28.1 pg (25.0-34.0); Mean Corpuscular Hgb Conc 32.7 g/dL (32.0-36.0); Mean Platelet Volume 9.7 fL (9.4-12.4); Platelet Count 308 K/uL (130-400); RDW Coefficient of Variation 18.3 % (11.5-14.5); RDW Standard Deviation 57.4 fL (36.4-46.3); Red Blood Count 3.63 M/uL (4.70-6.10); White Blood Count 6.87 K/ul (4.8-10.8)
[2023-02-05 21:36] LABS: Alanine Aminotransferase 40 U/L (7-52); Albumin Globulin Ratio 1.4 (0.9-2); Albumin Level 3.6 gm/dl (3.4-5.0); Alkaline Phosphatase 68 U/L (34-104); Anion Gap 10 (3-11); Aspartate Aminotransferase 117 U/L (13-39); BUN Creatinine Ratio 23.9 (10-20); Bilirubin,Total 1.1 mg/dl (0.2-1.0); Blood Urea Nitrogen 34 mg/dl (6-23); Calcium 8.9 mg/dl (8.6-10.3); Carbon Dioxide 24 mmol/L (21-32); Chloride 98 mmol/L (98-107); Est GFR (African American) 54.1 ml/min; Est GFR (Non-African American) 46.6 ml/min; Globulin 2.5 gm/dl (2.5-4.0); Glucose 115 mg/dl (70-99(Fasting)); Magnesium 1.8 mg/dl (1.7-2.4); Potassium 4.5 mmol/L (3.5-5.1); Sodium 132 mmol/L (136-145); Total Protein 6.1 gm/dl (6.0-8.3)
--- NOTE | 2023-02-05 21:44 | CT Scan Report ---
Exam(s): CT ABDOMEN + PELVIS Without Contrast EXAM: CT Abdomen and Pelvis Without Intravenous Contrast CLINICAL HISTORY: Reason hernia surgery, fevers. TECHNIQUE: Axial computed tomography images of the abdomen and pelvis without intravenous contrast. CTDI is 26.87 mGy and DLP is 1579.69 mGy-cm. Automated exposure control was utilized for the study. A dose lowering technique was utilized adhering to the principles of ALARA. COMPARISON: CT abdomen and pelvis with contrast dated 01/13/2023 FINDINGS: Lung bases: Calcified granuloma noted in the right lower lobe and right middle lobe. ABDOMEN: Liver: Unremarkable. Gallbladder and bile ducts: Unremarkable. No calcified stones. No ductal dilation. Pancreas: Unremarkable. No ductal dilation. Spleen: Calcified granulomata in the spleen. Adrenals: Unremarkable. No mass. Kidneys and ureters: Kidneys demonstrate no significant alteration from the previous examination with similar renal cortical cysts. Nonobstructing subcentimeter nephrolithiasis noted bilaterally. No hydronephrosis. Stomach and bowel: No bowel obstruction. Evaluation of the bowel mucosa is limited without contrast. No significant asymmetry identified. Postsurgical changes noted in the region of the sigmoid colon. PELVIS: Appendix: No findings to suggest acute appendicitis. Bladder: Unremarkable. No stones. Reproductive: Unremarkable as visualized. ABDOMEN and PELVIS: Intraperitoneal space: No pneumoperitoneum. Bones/joints: A right total hip arthroplasty is identified. Grade 1 anterolisthesis of L5 on S1 secondary to bilateral L5 spondylolysis, stable in appearance. No acute osseous abnormality. No dislocation. Soft tissues: When compared to the previous examination, there has been interval ventral hernia repair with suspected mesh placement. Superficial to the presumed mesh in the subcutaneous soft tissues, there is a complex hypodense collection with scattered nondependent gas internally, measuring 4.3 x 13.7 x 13.1 cm. There is additional gas in the subcutaneous fat superior to the collection. Minimal fat stranding noted immediately deep to the presumed mesh. No loculated fluid collection. Vasculature: Unremarkable. No abdominal aortic aneurysm. Lymph nodes: Unremarkable. No enlarged lymph nodes. IMPRESSION: When compared to the previous examination, there has been interval ventral hernia repair with suspected mesh placement. Superficial to the presumed mesh in the subcutaneous soft tissues, there is a complex hypodense collection with scattered nondependent gas internally, measuring 4.3 x 13.7 x 13.1 cm. The internal nondependent gas is concerning for developing infection within the collection. Please correlate with laboratory and clinical findings. Electronically signed by: Campbell Lord MD 02/05/23 21:44 PM
[2023-02-05 21:45] LABS: Troponin I High Sensitivity 83.9 pg/ml (0-20)
--- NOTE | 2023-02-05 21:51 | CT Scan Report ---
Exam(s): CT HEAD Without Contrast EXAM: CT Head Without Intravenous Contrast CLINICAL HISTORY: visual disturbance. TECHNIQUE: Axial computed tomography images of the head/brain without intravenous contrast. CTDI is 36.79 mGy and DLP is 702.46 mGy-cm. Automated exposure control was utilized for the study. A dose lowering technique was utilized adhering to the principles of ALARA. COMPARISON: No relevant prior studies available. FINDINGS: Brain: There are a few areas of decreased attenuation in the deep cerebral white matter consistent with mild small vessel ischemic/degenerative changes. The cerebral and cerebellar sulci are mildly prominent consistent with mild brain atrophy. No hemorrhage. Ventricles: Unremarkable. No ventriculomegaly. Bones/joints: No acute osseous abnormality. No focal lesion. Soft tissues: Unremarkable. Vasculature: Atherosclerotic disease. Sinuses: Unremarkable as visualized. No acute sinusitis. Mastoid air cells: Unremarkable as visualized. No mastoid effusion. Orbits: The orbits and globes are grossly unremarkable, accounting for limitations with [id number] imaging. IMPRESSION: No acute intracranial process identified. Electronically signed by: Campbell Lord MD 02/05/23 21:49 PM
[2023-02-05] MEDS ORDERED: PIPERACILLIN/TAZOBACTAM 4.5 GM in DEXTROSE 5% 100 ML IV ONE (21:59)
[2023-02-05] MEDS ORDERED: ACETAMINOPHEN 325 MG TAB PO STA (21:59)
[2023-02-05] MEDS ORDERED: SODIUM CHLORIDE 0.9% 500 ML IV ONE (21:59)
[2023-02-05] MEDS ORDERED: PIPERACILLIN/TAZOBACTAM 4.5 GM/100ML D5W IV ONE (22:03)
--- NOTE | 2023-02-05 22:04 | XRay Report ---
SINGLE VIEW CHEST CLINICAL HISTORY: Sepsis. Fever. FINDINGS: An AP, portable, upright chest radiograph is compared to study dated 01/17/2023. The examina tion is degraded by portable technique and patient rotation. The heart is enlarged. The pulmonary va sculature is congested. There is chronic elevation of the left hemidiaphragm with minimal bibasilar a telectasis. There are scattered calcified granulomas. The lungs and pleural spaces are otherwise noam r. No pneumothorax is seen. The skeletal structures are osteopenic. The bony thorax is grossly intact . 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 IMPRESSION: Cardiomegaly with no active disease in the chest. ACT 112: Negative or not required by law. Electronically signed by: Maxime Faust M.D. 02/05/2023 10:03 PM
--- NOTE | 2023-02-05 22:14 | Emergency Department Note ---
Impression & Plan Sepsis, Elevated lactic acid level, Abdominal wall abscess ED Provider Note NAME: RAFY CHICAS AGE: 77 SEX: M : 1945 ARRIVES VIA: Walk-In INFORMANT: Patient ED PROVIDER(S): Rakesh Ellis DO CHIEF COMPLAINT: Fever HPI: Patient is a 77-year-old male with past medical history of CAD, heart failure with preserved ejection fraction with last EF of 60% and presents to the ER for some abdominal discomfort as well as right hip pain. He notes has been feeling weak and rundown for the past 5 days. For the past 2 days he has been feeling hot and cold with fevers. Recently had hernia repaired by Dr. Aaron here earlier this month. He had the drain removed several days ago. Admits to some spots in his vision. Denies any headache. No chest pain or shortness of b reath. No dysuria urgency or frequency. No other exacerbating or remitting factors. PAST MEDICAL HISTORY:See Below PAST SURGICAL HISTORY:See Below FAMILY HISTORY:See Below SOCIAL HISTORY:See Below HOME MEDICATIONS:See Below ALLERGIES:See Below VITALS:See Below PHYSICAL EXAMINATION: GENERAL: Sitting up in bed, alert, ill-appearing, diaphoretic EYE EXAM: normal conjunctiva. PERRL and EOM's grossly intact. OROPHARYNX: Dry mucous membranes NECK: supple, no nuchal rigidity, no adenopathy, non-tender LUNGS: Clear to auscultation. Normal chest wall mechanics HEART: no murmurs, S1 normal and S2 normal ABDOMEN: abdomen soft, minimal tenderness throughout the midline incision left lower quadrant, normo-active bowel sounds, no masses, no rebound or guarding. BACK: Back is symmetrical on inspection and there is no deformity, no midline tenderness, no CVA tenderness. UPPER EXTREMITIES: upper extremities are grossly normal. LOWER EXTREMITIES: No pitting edema. NEURO EXAM: Normal sensorium, cranial nerves II-XII grossly intact, normal speech, no gross weakness of arms, no gross weakness of legs. MEDICAL DECISION MAKING: Patient is a 77-year-old male who presents ER for above-stated complaint. IV was established blood work was obtained. External records reviewed. Vitals show that he is febrile. Is not tachycardic or hypoxic. Labs show no significant leukocytosis. Mild anemia 10. BMP was unremarkable. Lactate was elevated 2.2. Troponin mildly elevated at 83. Pro-Arsalan elevated 0.7. CT abdomen pelvis suggested abdominal abscess. CT of the head was negative. Patient was given IV fluids 1 L as he was not tachycardic and lactate was only mildly elevated with a history of heart failure he was not given 30 cc/kg. He was also given IV Zosyn and vancomycin. Discussed with Dr. Lee who recommended transfer if our IR was unwilling to do it. Discussed with Dr. You who noted that they could drain this tomorrow. Updated and discussed with Dr. Himanshu Weinstein for further evaluation management and treatment. Patient was updated bedside. Triage Nursing notes reviewed. Limited review of prior medical records performed Vital Signs: reviewed and remarkable for febrile Differential diagnosis: Differential diagnosis includes etiologies such as sepsis, UTI, pneumonia, metabolic, electrolyte abnormalities, cardiac sources, intracerebral event, toxicologic, neurological, as well as others were entertained. ER treatment provided: See below Diagnostics interpreted by me include EKG and cardiac monitoring as listed below: -Cardiac Monitoring: An order was placed for continuous cardiac monitoring. The monitor shows a rate of 80 with sinus rhythm. -ECG: Sinus rhythm rate of 95 Left axis No PVCs QTc 462 -Laboratory studies:Interpreted by me as stated above in MDM and shown below. Imaging studies: Xrays: As interpreted by me: Portable AP upright 1 view the chest shows no focal infiltrate CTs show: CT head and abdomen pelvis as described above Consultation(s): As described in MDM Procedures:none Critical Care: None Past Med/Surg History Medical History Anxiety and depression Atherogenic dyslipidemia Atrial fibrillation episode occurred in 03/2022, taken to [facility], admitted to ICU for 1-2 weeks (was not intubated, but wasn't "awake either"), then to cardiac unit, then to rehab at [facility]; f/u dr. guerra in [place]>will be starting to see a disabilities services officer at [facility] 2nd week of 08/2022 Benign essential hypertension Coronary artery disease GERD (gastroesophageal reflux disease) Heart failure with preserved ejection fraction HFrEF (heart failure with reduced ejection fraction) EF 40% Mar 2022, improved 55-60% August 2022 Hx of staphylococcal infection 03/2022, w/"bacterial infection" at the same, in the rt. knee, occurrred duri ng atrial fibrillation episode. "when he woke up, he couldn't walk." Hypomagnesemia Incisional hernia Lumbar radiculopathy Lumbar stenosis Myocardial Infarction "a silent one, 2019" Pneumonia Respiratory failure with hypoxia Rheumatoid arthritis Sepsis Septicemia due to Streptococcus pneumoniae Sleep apnea no device Surgical History History of bowel resection for diverticulitis; w/colostomy placement for 3-4 months History of cardiac cath ~3 years ago, SOB and "felt like throat was constricting", had "silent heart attack", x2 stents, done in [place] History of colostomy reversal History of esophagogastroduodenoscopy (EGD) History of heart artery stent ~3 years ago, x2 stents, done in [place]; f/u dr guerra, [place]>will be seeing new cardio at [facility] 2nd week of August 2022. Hx of Achilles tendon repair rt. Hx of bilateral cataract extraction Hx of colonoscopy Last Colonoscopy 08/14/22, repeat 3 years in 2025 Hx of hernia repair near former colostomy site Hx of knee surgery rt. patellar tendon repair Hx of rotator cuff surgery bilateral Hx of total hip arthroplasty rt. Hx of total knee replacement lt. Family History Grandmother (Maternal) Diabetes Daughter Diabetes Father Suicide Hypertension Denies family history of Ovarian cancer Prostate cancer Myocardial infarction Breast cancer Lung cancer Colorectal cancer Stroke Social History Smoking Status: Never smoker Second Hand Exposure: No; Do You Dip or Chew Tobacco: No; Hx Alcohol Use: Yes Alcohol type: wine Alcohol Intake Frequency: 4 or More x per/Week Hx Substance Use: No Preferred Language: [place] Communication Ability: Effective Visual Impairment: No Limitations Hearing Ability: Normal Adobe Developer Required: No Beliefs That Will Affect Care: None marital status: Single Current Living Situation: Personal Care Facility Current Living Situation Comment: [facility] current occupational status: retired How many Children do You have: 2 Feels Safe at Home: Yes Childhood Exposure to Second-Hand Smoke: Yes caffeine: Yes Dental Care, Regularly: Yes Physical Activity Frequency: Does not Exercise Seatbelt Use: always Sunscreen Use: Yes Assistive Devices: Cane, Walker and Wheelchair Allergies Allergies Allergy/AdvReac Type Severity Reaction Status Date / Time cat dander Allergy Severe Swelling Verified 01/22/23 10:38 of Lip/Tongue/Throat Home Meds Home Medications Medication Instructions Recorded Confirmed sennosides 8.6 mg capsule (senna) 8.6 mg PO AMHS 06/19/22 01/22/23 amiodarone 200 mg tablet 200 mg PO QAM 08/07/22 01/22/23 ascorbic acid (vitamin C) 500 mg 1,000 mg PO QAM 08/07/22 01/22/23 capsule aspirin 81 mg tablet,delayed 81 mg PO QAM 08/07/22 01/22/23 release (Adult Low Dose Aspirin) coenzyme Q10 100 mg capsule 10 mg PO QAM 08/07/22 01/22/23 isosorbide mononitrate 60 mg 60 mg PO QAM 08/07/22 01/22/23 tablet,extended release 24 hr lactobacillus combination no.9 4 6,000 mmu cells PO QAM 08/07/22 01/22/23 billion cell capsule (Adult 50 Plus Probiotic) lisinopril 10 mg tablet 10 mg PO QAM 08/07/22 02/05/23 melatonin 5 mg capsule 5 mg PO HS 08/07/22 01/22/23 paoillmh-jlbsnpk-rrcc-lutein tablet 1 tab PO QAM 08/07/22 01/22/23 upadacitinib 15 mg tablet,extended 15 mg PO QAM 10/15/22 01/22/23 release 24 hr (Rinvoq) acetaminophen 500 mg capsule 1,000 mg PO TID 11/11/22 01/22/23 pravastatin 40 mg tablet 40 mg PO HS 01/13/23 01/22/23 ranolazine 500 mg tablet,extended 500 mg PO BID 01/13/23 01/22/23 release,12 hr travoprost 0.004 % eye drops 1 drp OPB QPM 01/13/23 01/22/23 (Travatan Z) cephalexin 500 mg capsule 500 mg PO Q6H 01/20/23 01/22/23 Previous Rx's Medication Instructions Recorded nitroglycerin 0.4 mg sublingual 0.4 mg sublingual Q5M PRN chest 07/23/22 tablet pain #30 tabs cholecalciferol (vitamin D3) 250 250 mcg PO DAILY 90 days #90 tabs 09/19/22 mcg (10,000 unit) tablet metoprolol tartrate 25 mg tablet 12.5 mg PO BID #60 tabs 10/03/22 omega 8-ajv-fcf-fish oil 1,000 mg 1 cap PO QAM #30 caps 12/15/22 (120 mg-180 mg) capsule (Fish Oil) clobetasol 0.05 % topical cream 1 applic topical BID 2 weeks #30 12/25/22 grams furosemide 20 mg tablet 20 mg PO DAILY PRN edema or weight 12/25/22 gain #30 tabs duloxetine 60 mg capsule,delayed 60 mg PO DAILY #90 caps 01/01/23 release oxycodone-acetaminophen 5 mg-325 1 tab PO Q6H PRN pain #12 tabs 01/16/23 mg tablet (Percocet) cyanocobalamin (vitamin B-12) 500 1,000 mcg PO QAM #30 tabs 01/18/23 mcg tablet esomeprazole magnesium 40 mg 40 mg PO BID #60 caps 01/18/23 capsule,delayed release (Nexium) folic acid 1 mg tablet 1 mg PO QAM #30 tabs 01/18/23 hydroxyzine HCl 10 mg tablet 10 mg PO HS PRN anxiety or 01/18/23 insomnia #14 tabs thiamine HCl (vitamin B1) 100 mg 100 mg PO BID #60 tabs 01/18/23 tablet apixaban 2.5 mg tablet (Eliquis) See Rx Instructions .Route 01/22/23 .COMPLEX #60 tabs gabapentin 300 mg capsule 300 mg PO TID #90 caps 01/27/23 Results & Data (ED) Vital Signs Vital Signs - 24 hr 02/05/23 20:15 02/05/23 21:18 Temperature 38.0 C H Temperature Source Temporal Artery Scan Pulse Rate 94 H 81 Respiratory Rate 20 Respiratory Depth Normal Blood Pressure 134/78 Blood Pressure Mean 96 Pulse Oximetry 98 Oxygen Delivery Method Room Air Sepsis Recent Fever Within 48 Hours Yes Sepsis New/Unexplained Change in Mental Status N/A Sepsis Action Taken by Nursing No Action Required Laboratory Data 02/05/23 20:42 02/05/23 20:42 Lab Results 02/05/23 02/05/23 02/05/23 Range/Units 20:20 20:42 20:42 WBC 6.87 (4.8-10.8) K/ul RBC 3.63 L (4.70-6.10) M/uL Hgb 10.2 L (14.0-18.0) g/dl Hct 31.2 L (42.0-52.0) % MCV 86.0 (80.0-100.0) fL MCH 28.1 (25.0-34.0) pg MCHC 32.7 (32.0-36.0) g/dL RDW Std Deviation 57.4 H (36.4-46.3) fL RDW Coeff of Sammie 18.3 H (11.5-14.5) % Plt Count 308 (130-400) K/uL MPV 9.7 (9.4-12.4) fL Sodium 132 L (136-145) mmol/L Potassium 4.5 (3.5-5.1) mmol/L Chloride 98 (98-107) mmol/L Carbon Dioxide 24 (21-32) mmol/L Anion Gap 10 (3-11) BUN 34 H (6-23) mg/dl Creatinine 1.42 H (0.6-1.4) mg/dl Est Cr Clr Drug Dosing Not Reportable Est GFR ( Amer) 54.1 ml/min Est GFR (Non-Af Amer) 46.6 ml/min BUN/Creatinine Ratio 23.9 H (10-20) Glucose 115 H (70-99(Fasting)) mg/dl Lactate 2.2 H* (0.4-2.0) mmol/L Calcium 8.9 (8.6-10.3) mg/dl Magnesium 1.8 (1.7-2.4) mg/dl Total Bilirubin 1.1 H (0.2-1.0) mg/dl AST 117 H (13-39) U/L ALT 40 (7-52) U/L Alkaline Phosphatase 68 (34-104) U/L Troponin I High Sens 83.9 H* (0-20) pg/ml Total Protein 6.1 (6.0-8.3) gm/dl Albumin 3.6 (3.4-5.0) gm/dl Globulin 2.5 (2.5-4.0) gm/dl Albumin/Globulin Ratio 1.4 (0.9-2) Procalcitonin (0-0.5) ng/ml 02/05/23 Range/Units 20:42 WBC (4.8-10.8) K/ul RBC (4.70-6.10) M/uL Hgb (14.0-18.0) g/dl Hct (42.0-52.0) % MCV (80.0-100.0) fL MCH (25.0-34.0) pg MCHC (32.0-36.0) g/dL RDW Std Deviation (36.4-46.3) fL RDW Coeff of Sammie (11.5-14.5) % Plt Count (130-400) K/uL MPV (9.4-12.4) fL Sodium (136-145) mmol/L Potassium (3.5-5.1) mmol/L Chloride (98-107) mmol/L Carbon Dioxide (21-32) mmol/L Anion Gap (3-11) BUN (6-23) mg/dl Creatinine (0.6-1.4) mg/dl Est Cr Clr Drug Dosing Est GFR ( Amer) ml/min Est GFR (Non-Af Amer) ml/min BUN/Creatinine Ratio (10-20) Glucose (70-99(Fasting)) mg/dl Lactate (0.4-2.0) mmol/L Calcium (8.6-10.3) mg/dl Magnesium (1.7-2.4) mg/dl Total Bilirubin (0.2-1.0) mg/dl AST (13-39) U/L ALT (7-52) U/L Alkaline Phosphatase (34-104) U/L Troponin I High Sens (0-20) pg/ml Total Protein (6.0-8.3) gm/dl Albumin (3.4-5.0) gm/dl Globulin (2.5-4.0) gm/dl Albumin/Globulin Ratio (0.9-2) Procalcitonin 0.72 H (0-0.5) ng/ml Administered Medications Discontinued Medications Acetaminophen (Acetaminophen 325 Mg Tab) 650 mg PO NOW STA Stop: 02/05/23 22:00 Last Admin: 02/05/23 22:08 Dose: 650 mg Documented By: JERARDOW Imaging Data Radiologist's Impression: Abdomen/Pelvis CT 02/05/23 20:20 Exam(s): CT ABDOMEN + PELVIS Without Contrast EXAM: CT Abdomen and Pelvis Without Intravenous Contrast CLINICAL HISTORY: Reason hernia surgery, fevers. TECHNIQUE: Axial computed tomography images of the abdomen and pelvis without intravenous contrast. CTDI is 26.87 mGy and DLP is 1579.69 mGy-cm. Automated exposure control was utilized for the study. A dose lowering technique was utilized adhering to the principles of ALARA. COMPARISON: CT abdomen and pelvis with contrast dated 01/13/2023 FINDINGS: Lung bases: Calcified granuloma noted in the right lower lobe and right middle lobe. ABDOMEN: Liver: Unremarkable. Gallbladder and bile ducts: Unremarkable. No calcified stones. No ductal dilation. Pancreas: Unremarkable. No ductal dilation. Spleen: Calcified granulomata in the spleen. Adrenals: Unremarkable. No mass. Kidneys and ureters: Kidneys demonstrate no significant alteration from the previous examination with similar renal cortical cysts. Nonobstructing subcentimeter nephrolithiasis noted bilaterally. No hydronephrosis. Stomach and bowel: No bowel obstruction. Evaluation of the bowel mucosa is limited without contrast. No significant asymmetry identified. Postsurgical changes noted in the region of the sigmoid colon. PELVIS: Appendix: No findings to suggest acute appendicitis. Bladder: Unremarkable. No stones. Reproductive: Unremarkable as visualized. ABDOMEN and PELVIS: Intraperitoneal space: No pneumoperitoneum. Bones/joints: A right total hip arthroplasty is identified. Grade 1 anterolisthesis of L5 on S1 secondary to bilateral L5 spondylolysis, stable in appearance. No acute osseous abnormality. No dislocation. Soft tissues: When compared to the previous examination, there has been interval ventral hernia repair with suspected mesh placement. Superficial to the presumed mesh in the subcutaneous soft tissues, there is a complex hypodense collection with scattered nondependent gas internally, measuring 4.3 x 13.7 x 13.1 cm. There is additional gas in the subcutaneous fat superior to the collection. Minimal fat stranding noted immediately deep to the presumed mesh. No loculated fluid collection. Vasculature: Unremarkable. No abdominal aortic aneurysm. Lymph nodes: Unremarkable. No enlarged lymph nodes. IMPRESSION: When compared to the previous examination, there has been interval ventral hernia repair with suspected mesh placement. Superficial to the presumed mesh in the subcutaneous soft tissues, there is a complex hypodense collection with scattered nondependent gas internally, measuring 4.3 x 13.7 x 13.1 cm. The internal nondependent gas is concerning for developing infection within the collection. Please correlate with laboratory and clinical findings. Electronically signed by: Campbell Lord MD 02/05/23 21:44 PM Chest X-Ray 02/05/23 20:20 SINGLE VIEW CHEST CLINICAL HISTORY: Sepsis. Fever. FINDINGS: An AP, portable, upright chest radiograph is compared to study dated . The examination is degraded by portable technique and patient rotation. The heart is enlarged. The pulmonary vasculature is congested. There is chronic elevation of the left hemidiaphragm with minimal bibasilar atelectasis. There are scattered calcified granulomas. The lungs and pleural s paces are otherwise clear. No pneumothorax is seen. The skeletal structures are osteopenic. The bony thorax is grossly intact. 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 IMPRESSION: Cardiomegaly with no active disease in the chest. ACT 112: Negative or not required by law. Electronically signed by: Maxime Faust M.D. 02/05/2023 10:[address] 02/05/23 20:21 Exam(s): CT HEAD Without Contrast EXAM: CT Head Without Intravenous Contrast CLINICAL HISTORY: visual disturbance. TECHNIQUE: Axial computed tomography images of the head/brain without intravenous contrast. CTDI is 36.79 mGy and DLP is 702.46 mGy-cm. Automated exposure control was utilized for the study. A dose lowering technique was utilized adhering to the principles of ALARA. COMPARISON: No relevant prior studies available. FINDINGS: Brain: There are a few areas of decreased attenuation in the deep cerebral white matter consistent with mild small vessel ischemic/degenerative changes. The cerebral and cerebellar sulci are mildly prominent consistent with mild brain atrophy. No hemorrhage. Ventricles: Unremarkable. No ventriculomegaly. Bones/joints: No acute osseous abnormality. No focal lesion. Soft tissues: Unremarkable. Vasculature: Atherosclerotic disease. Sinuses: Unremarkable as visualized. No acute sinusitis. Mastoid air cells: Unremarkable as visualized. No mastoid effusion. Orbits: The orbits and globes are grossly unremarkable, accounting for limitations with [id number]-nqio-wenelffkmu imaging. IMPRESSION: No acute intracranial process identified. Electronically signed by: Campbell Lord MD 02/05/23 21:49 PM Discharge Plan Visit Data Chief Complaint: Fever Stated Complaint: FEVER, HIP RT PAIN ED Provider: Rakesh Ellis Discharge Problem: Sepsis, Elevated lactic acid level, Abdominal wall abscess Forms Stand Alone Forms: [facility] Prescriptions Prescriptions: No Action acetaminophen 500 mg capsule 1,000 mg PO TID Rx Instructions: takes with gabapentin nitroglycerin 0.4 mg tablet, sublingual 0.4 mg sublingual Q5M PRN (Reason: chest pain) Qty: 30 0RF Rx Instructions: do not exceed 3 doses per episode cholecalciferol (vitamin D3) 250 mcg (10,000 unit) tablet 250 mcg PO DAILY 90 Days Qty: 90 3RF metoprolol tartrate 25 mg tablet 12.5 mg PO BID Qty: 60 2RF Rx Instructions: for your heart and high blood pressure omega 7-mor-ury-fish oil [Fish Oil] 1,000 mg (120 mg-180 mg) capsule 1 cap PO QAM Qty: 30 3RF duloxetine 60 mg capsule,delayed release(DR/EC) 60 mg PO DAILY Qty: 90 3RF gabapentin 300 mg capsule 300 mg PO TID Qty: 90 6RF senna 8.6 mg capsule 8.6 mg PO AMHS furosemide 20 mg tablet 20 mg PO DAILY PRN (Reason: edema or weight gain) Qty: 30 5RF amiodarone 200 mg tablet 200 mg PO QAM aspirin [Adult Low Dose Aspirin] 81 mg tablet,delayed release (DR/EC) 81 mg PO QAM isosorbide mononitrate 60 mg tablet extended release 24 hr 60 mg PO QAM lisinopril 10 mg tablet 10 mg PO QAM eodaechb-wgemybw-owhl-lutein Tablet 1 tab PO QAM coenzyme Q10 100 mg capsule 10 mg PO QAM melatonin 5 mg capsule 5 mg PO HS Adult 50 Plus Probiotic 4 billion cell capsule 6,000 mmu cells PO QAM Rx Instructions: administer with a meal ascorbic acid (vitamin C) 500 mg capsule 1,000 mg PO QAM pravastatin 40 mg tablet 40 mg PO HS ranolazine 500 mg tablet extended release 12 hr 500 mg PO BID travoprost [Travatan Z] 0.004 % drops 1 drp OPB QPM oxycodone-acetaminophen [Percocet] 5-325 mg tablet 1 tab PO Q6H PRN (Reason: pain) Qty: 12 0RF cyanocobalamin (vitamin B-12) 500 mcg Tablet 1,000 mcg PO QAM Qty: 30 0RF hydroxyzine HCl 10 mg Tablet 10 mg PO HS PRN (Reason: anxiety or insomnia) Qty: 14 0RF folic acid 1 mg Tablet 1 mg PO QAM Qty: 30 0RF thiamine HCl (vitamin B1) 100 mg Tablet 100 mg PO BID Qty: 60 0RF esomeprazole magnesium [Nexium] 40 mg capsule,delayed release(DR/EC) 40 mg PO BID Qty: 60 0RF Rinvoq 15 mg tablet extended release 24 hr 15 mg PO QAM potassium chloride 10 mEq tablet,ER particles/crystals 20 meq PO DAILY PRN (Reason: when taking lasix) Eliquis 2.5 mg tablet 2.5 mg PO BID Rx Instructions: TAKE 1 TABLET BY MOUTH TWICE DAILY Referrals Referrals: Danny Soliman DO [Primary Care Provider] -
[2023-02-05] MEDS ORDERED: SODIUM CHLORIDE 0.9% 1,000 ML IV ONE (22:15)
[2023-02-05] MEDS ORDERED: VANCOMYCIN CONSULT ACTIVE PRN (22:16)
[2023-02-05] MEDS ORDERED: VANCOMYCIN HCL 2,000 MG in SODIUM CHLORIDE 0.9% 500 ML IV ONE (22:16)
[2023-02-05 22:18] LABS: Basophils # (auto) 0.02 K/uL (0.00-0.20); Basophils % (auto) 0.3 %; Eosinophils # (auto) 0.02 K/uL (0.00-0.50); Eosinophils % (auto) 0.3 %; Immature Granulocytes # (auto) 0.02 K/uL (0.01-0.20); Immature Granulocytes % (auto) 0.3 %; Lymphocytes # (auto) 0.44 K/uL (1.20-3.40); Lymphocytes % (auto) 6.4 %; Monocytes # (auto) 1.39 K/uL (0.11-0.59); Monocytes % (auto) 20.2 %; Neutrophils # (auto) 4.98 K/uL (1.40-6.50); Neutrophils % (auto) 72.5 %; Polychromasia 1+
[2023-02-05 22:40] LABS: INR 1.1 (0.9-1.1); Partial Thromboplastin Ratio 1.1; Partial Thromboplastin Time 31.6 Seconds (21.0-31.0); Prothrombin Time 12.4 Seconds (9.0-12.0)
--- NOTE | 2023-02-05 23:08 | History & Physical Report ---
Date of Service February 05, 2023 Assessment & Plan (1) Abdominal wall abscess: (2) Atrial fibrillation: (3) HFrEF (heart failure with reduced ejection fraction): (4) Anxiety and depression: (5) GERD (gastroesophageal reflux disease): (6) Hypertension: (7) Rheumatoid arthritis: (8) Coronary artery disease: Plan Abdominal wall abscess/status post incisional hernia repair on 01-15-2023-- Daptomycin IV per pharmacokinetic monitoring Zosyn 4.5 g IV every 8 hours Acetaminophen 650 mg by mouth every 4 hours as needed for mild pain or fever Tramadol 50 mg NPO every 4 hours as needed for moderate pain Morphine sulfate 4 mg IV every 3 hours as needed for severe pain Consult IR for drainage of collection General surgery has seen the patient Elevated troponin/CAD/hypertension/HFpEF/atrial fibrillation- The patient will be admitted to telemetry for serial cardiac enzymes, serial EKG's, cardiac rhythm monitoring and a 2-D echocardiogram with Dopplers. Troponin 83.9 on admission Continue amiodarone and ranolazine Hold Eliquis, aspirin, furosemide as needed, lisinopril and metoprolol tartrate this evening due to low blood pressure and prior to IR procedure Resume metoprolol tartrate in a.m. and isosorbide mononitrate in a.m. Rheumatoid arthritis- Hold immunosuppressive Rinvok Acute kidney injury- Creatinine 1.42, with base 1.2 Hold lisinopril and furosemide Stop vancomycin IV and place on daptomycin History of Present Illness Chief Complaint: The patient presents to the emergency department with complaint of feeling generally weak and fatigued over the past 5 days, and after having his p ostsurgical drain removed, he has noticed increasing size of abdominal area, and discomfort over the past 2 days, along with fevers and chills Primary Care Provider: Danny Soliman DO The patient is a 77-year-old male with past medical history including incisional hernia status postrepair, HFrEF, atrial fibrillation, anxiety depression, GERD, hypertension, RA, CAD, and dyslipidemia. He presents to the emergency department with fever, increasing abdominal girth, increasing abdominal discomfort and generalized malaise. CT scan of abdomen and pelvis performed in the ED shows superficial to the presumed mass in the subcutaneous soft tissues there is a complex hypodense collection with scattered nondependent gas internally measuring 4.3 x 13.7 x 13.1 cm. The internal nondependent gas is concerning for developing infection within the collection Significant laboratories: Creatinine 1.42, glucose 115, total bili 1.1, lactate 2.2, AST 117, troponin 83.9 and Pro-Arsalan 0.72 Allergies Allergy/AdvReac Type Severity Reaction Status Date / Time cat dander Allergy Severe Swelling Verified 01/22/23 10:38 of Lip/Tongue/Throat Home Medications Medication Instructions Recorded Confirmed Type sennosides 8.6 mg capsule (senna) 8.6 mg PO AMHS 06/19/22 02/05/23 History nitroglycerin 0.4 mg sublingual 0.4 mg sublingual Q5M PRN chest 07/23/22 02/05/23 Rx tablet pain #30 tabs amiodarone 200 mg tablet 200 mg PO QAM 08/07/22 02/05/23 History ascorbic acid (vitamin C) 500 mg 1,000 mg PO QAM 08/07/22 02/05/23 History capsule aspirin 81 mg tablet,delayed 81 mg PO QAM 08/07/22 02/05/23 History release (Adult Low Dose Aspirin) coenzyme Q10 100 mg capsule 100 mg PO QAM 08/07/22 02/05/23 History isosorbide mononitrate 60 mg 60 mg PO QAM 08/07/22 02/05/23 History tablet,extended release 24 hr lactobacillus combination no.9 4 6,000 mmu cells PO QAM PRN use 08/07/22 02/05/23 History billion cell capsule (Adult 50 with antibiotics Plus Probiotic) lisinopril 10 mg tablet 10 mg PO QAM 08/07/22 02/05/23 History melatonin 5 mg capsule 5 mg PO HS 08/07/22 02/05/23 History ctewdeym-vcvltsl-vnmg-lutein tablet 1 tab PO QAM 08/07/22 02/05/23 History cholecalciferol (vitamin D3) 250 250 mcg PO DAILY 90 days #90 tabs 09/19/22 02/05/23 Rx mcg (10,000 unit) tablet metoprolol tartrate 25 mg tablet 12.5 mg PO BID #60 tabs 10/03/22 02/05/23 Rx upadacitinib 15 mg tablet,extended 15 mg PO QAM 10/15/22 02/05/23 History release 24 hr (Rinvoq) acetaminophen 500 mg capsule 1,000 mg PO TID 11/11/22 02/05/23 History omega 7-yqj-fbf-fish oil 1,000 mg 1 cap PO QAM #30 caps 12/15/22 02/05/23 Rx (120 mg-180 mg) capsule (Fish Oil) furosemide 20 mg tablet 20 mg PO DAILY PRN edema or weight 12/25/22 02/05/23 Rx gain #30 tabs pravastatin 40 mg tablet 40 mg PO HS 01/13/23 02/05/23 History ranolazine 500 mg tablet,extended 500 mg PO BID 01/13/23 02/05/23 History release,12 hr travoprost 0.004 % eye drops 1 drp OPB QPM 01/13/23 02/05/23 History (Travatan Z) oxycodone-acetaminophen 5 mg-325 1 tab PO Q6H PRN pain #12 tabs 01/16/23 02/05/23 Rx mg tablet (Percocet) cyanocobalamin (vitamin B-12) 500 1,000 mcg PO QAM #30 tabs 01/18/23 02/05/23 Rx mcg tablet folic acid 1 mg tablet 1 mg PO QAM #30 tabs 01/18/23 02/05/23 Rx hydroxyzine HCl 10 mg tablet 10 mg PO HS PRN anxiety or 01/18/23 02/05/23 Rx insomnia #14 tabs gabapentin 300 mg capsule 300 mg PO TID #90 caps 01/27/23 02/05/23 Rx apixaban 2.5 mg tablet (Eliquis) 2.5 mg PO BID 02/05/23 02/05/23 History duloxetine 60 mg capsule,delayed 60 mg PO QAM 02/05/23 02/05/23 History release esomeprazole magnesium 40 mg 40 mg PO HS 02/05/23 02/05/23 History capsule,delayed release (Nexium) potassium chloride 10 mEq 20 meq PO DAILY PRN when taking 02/05/23 02/05/23 History tablet,extended release(part/cryst) lasix thiamine HCl (vitamin B1) 100 mg 100 mg PO QAM 02/05/23 02/05/23 History tablet Past Med/Surg History Medical History (Updated 02/05/23 @ 23:50 by Cortes Lee MD) Abdominal wall abscess Anxiety and depression Atherogenic dyslipidemia Atrial fibrillation episode occurred in 03/2022, taken to [facility] in [place], admitted to ICU for 1-2 weeks (was not intubated, but wasn't "awake either"), then to cardiac unit, then to rehab at [facility]; f/u dr. guerra in [place]>will be starting to see a crew chief at [facility] 2nd week of 08/2022 Benign essential hypertension Coronary artery disease GERD (gastroesophageal reflux disease) Heart failure with preserved ejection fraction HFrEF (heart failure with reduced ejection fraction) EF 40% Mar 2022, improved 55-60% August 2022 Hx of staphylococcal infection 03/2022, w/"bacterial infection" at the same, in the rt. knee, occurrred during atrial fibrillation episode. "when he woke up, he couldn't walk." Hypomagnesemia Incisional hernia Lumbar radiculopathy Lumbar stenosis Myocardial Infarction "a silent one, 2019" Pneumonia Respiratory failure with hypoxia Rheumatoid arthritis Sepsis Septicemia due to Streptococcus pneumoniae Sleep apnea no device Surgical History History of bowel resection for diverticulitis; w/colostomy placement for 3-4 months History of cardiac cath ~3 years ago, SOB and "felt like throat was constricting", had "silent heart attack", x2 stents, done in [place] History of colostomy reversal History of esophagogastroduodenoscopy (EGD) History of heart artery stent ~3 years ago, x2 stents, done in [place]; f/u dr guerra, [place]>will be seeing new cardio at [place] 2nd week of August 2022. Hx of Achilles tendon repair rt. Hx of bilateral cataract extraction Hx of colonoscopy Last Colonoscopy 08/14/22, repeat 3 years in 2025 Hx of hernia repair near former colostomy site Hx of knee surgery rt. patellar tendon repair Hx of rotator cuff surgery bilateral Hx of total hip arthroplasty rt. Hx of total knee replacement lt. Family History Grandmother (Maternal) Diabetes Daughter Diabetes Father Suicide Hypertension Denies family history of Ovarian cancer Prostate cancer Myocardial infarction Breast cancer Lung cancer Colorectal cancer Stroke Social History Smoking Status: Never smoker Second Hand Exposure: No; Do You Dip or Chew Tobacco: No; Hx Alcohol Use: Yes Alcohol type: wine Alcohol Intake Frequency: 4 or More x per/Week Hx Substance Use: No Preferred Language: French Communication Ability: Effective Visual Impairment: No Limitations Hearing Ability: Normal Warehouse Lead Required: No Beliefs That Will Affect Care: None marital status: Single Current Living Situation: Personal Care Facility Current Living Situation Comment: [facility] current occupational status: retired How many Children do You have: 2 Feels Safe at Home: Yes Childhood Exposure to Second-Hand Smoke: Yes caffeine: Yes Dental Care, Regularly: Yes Physical Activity Frequency: Does not Exercise Seatbelt Use: always Sunscreen Use: Yes Assistive Devices: Cane, Walker and Wheelchair Review of Systems Review of Systems: The patient denies chest pain, palpitations, shortness of breath, dyspnea on exertion, cough, lower extremity swelling, sore throat, sweats, weight change, fatigue, nausea, vomiting, diarrhea , constipation, blood in urine or stool, dysuria, urinary frequency or urgency, lightheadedness, dizziness, headache, memory loss, loss of consciousness, imbalance, focal or generalized weakness, numbness or tingling in arms or legs, generalized arthralgias or myalgias, back or neck pain, or night sweats. The review of systems is otherwise negative other than for that already noted above, and at least 10 systems have been reviewed. Physical Exam Physical Exam: The patient is awake, alert and oriented 3, well developed and well nourished, normocephalic and atraumatic, lying in bed and in no acute distress. HEENT--PERRL, EOMI, mucous membranes and oropharynx normal. Neck--supple. No JVD. No bruits. Thyroid normal, trachea midline, no adenopathy. Heart--normal S1 and S2. No murmurs, rubs or gallops. Lungs--clear bilaterally, no respiratory distress, no accessory muscle use. Abdomen--normal bowel sounds and soft. Nontender. Palpable area of fluctuance periumbilically. Incision normal appearing Extremities--no cyanosis or clubbing. No edema. Dermatologic--see above Neurologic--cranial nerves II through XII grossly intact. Rheumatologic--normal range of motion. Psychiatric--normal affect. Results & Data Results & Data Vital Signs (Past 12 Hours) Vital Signs Temp Pulse Pulse Resp BP BP Pulse Ox 02/05/23 22:11 72 16 99/59 L 96 02/05/23 21:18 81 02/05/23 20:15 38.0 C H 94 H 20 134/78 98 O2 Del Method 02/05/23 22:11 Room Air 02/05/23 21:18 02/05/23 20:15 Room Air Laboratory Results Laboratory Results WBC 6.87 K/ul (4.8-10.8) 02/05/23 20:42 RBC 3.63 M/uL (4.70-6.10) L 02/05/23 20:42 Hgb 10.2 g/dl (14.0-18.0) L 02/05/23 20:42 Hct 31.2 % (42.0-52.0) L 02/05/23 20:42 MCV 86.0 fL (80.0-100.0) 02/05/23 20:42 MCH 28.1 pg (25.0-34.0) 02/05/23 20:42 MCHC 32.7 g/dL (32.0-36.0) 02/05/23 20:42 RDW Std Deviation 57.4 fL (36.4-46.3) H 02/05/23 20:42 RDW Coeff of Sammie 18.3 % (11.5-14.5) H 02/05/23 20:42 Plt Count 308 K/uL (130-400) 02/05/23 20:42 MPV 9.7 fL (9.4-12.4) 02/05/23 20:42 Immature Gran % (Auto) 0.3 % 02/05/23 20:42 Neut % (Auto) 72.5 % 02/05/23 20:42 Lymph % (Auto) 6.4 % 02/05/23 20:42 [place] % (Auto) 20.2 % 02/05/23 20:42 Eos % (Auto) 0.3 % 02/05/23 20:42 Baso % (Auto) 0.3 % 02/05/23 20:42 Neut # (Auto) 4.98 K/uL (1.40-6.50) 02/05/23 20:42 Lymph # (Auto) 0.44 K/uL (1.20-3.40) L 02/05/23 20:42 [place] # (Auto) 1.39 K/uL (0.11-0.59) H 02/05/23 20:42 Eos # (Auto) 0.02 K/uL (0.00-0.50) 02/05/23 20:42 Baso # (Auto) 0.02 K/uL (0.00-0.20) 02/05/23 20:42 Immature Gran # (Auto) 0.02 K/uL (0.01-0.20) 02/05/23 20:42 Polychromasia 1+ 02/05/23 20:42 PT 12.4 Seconds (9.0-12.0) H 02/05/23 20:42 INR 1.1 (0.9-1.1) 02/05/23 20:42 APTT 31.6 Seconds (21.0-31.0) H 02/05/23 20:42 PTT Ratio 1.1 02/05/23 20:42 Sodium 132 mmol/L (136-145) L 02/05/23 20:42 Potassium 4.5 mmol/L (3.5-5.1) 02/05/23 20:42 Chloride 98 mmol/L (98-107) 02/05/23 20:42 Carbon Dioxide 24 mmol/L (21-32) 02/05/23 20:42 Anion Gap 10 (3-11) 02/05/23 20:42 BUN 34 mg/dl (6-23) H 02/05/23 20:42 Creatinine 1.42 mg/dl (0.6-1.4) H 02/05/23 20:42 Est Cr Clr Drug Dosing Not Reportable 02/05/23 20:42 Est GFR ( Amer) 54.1 ml/min 02/05/23 20:42 Est GFR (Non-Af Amer) 46.6 ml/min 02/05/23 20:42 BUN/Creatinine Ratio 23.9 (10-20) H 02/05/23 20:42 Glucose 115 mg/dl (70-99(Fasting)) H 02/05/23 20:42 Lactate 1.0 mmol/L (0.4-2.0) 02/05/23 22:36 Calcium 8.9 mg/dl (8.6-10.3) 02/05/23 20:42 Magnesium 1.8 mg/dl (1.7-2.4) 02/05/23 20:42 Total Bilirubin 1.1 mg/dl (0.2-1.0) H 02/05/23 20:42 AST 117 U/L (13-39) H 02/05/23 20:42 ALT 40 U/L (7-52) 02/05/23 20:42 Alkaline Phosphatase 68 U/L (34-104) 02/05/23 20:42 Troponin I High Sens 77.0 pg/ml (0-20) H* 02/05/23 22:36 Total Protein 6.1 gm/dl (6.0-8.3) 02/05/23 20:42 Albumin 3.6 gm/dl (3.4-5.0) 02/05/23 20:42 Globulin 2.5 gm/dl (2.5-4.0) 02/05/23 20:42 Albumin/Globulin Ratio 1.4 (0.9-2) 02/05/23 20:42 Procalcitonin 0.72 ng/ml (0-0.5) H 02/05/23 20:42 Urine Color Dark Yellow 02/06/23 Unknown Urine Appearance Cloudy (Clear) A 02/06/23 Unknown Urine pH 5.0 (4.5-7.5) 02/06/23 Unknown Ur Specific [place] 1.029 (1.000-1.030) 02/06/23 Unknown Urine Protein 1+ (Negative) H 02/06/23 Unknown Urine Glucose (UA) Negative (Negative) 02/06/23 Unknown Urine Ketones Trace (Negative) H 02/06/23 Unknown Urine Blood Negative (Negative) 02/06/23 Unknown Urine Nitrite Negative (Negative) 02/06/23 Unknown Urine Bilirubin Negative (Negative) 02/06/23 Unknown Urine Urobilinogen Negative (Negative) 02/06/23 Unknown Ur Leukocyte Esterase Negative (Negative) 02/06/23 Unknown Urine WBC (Auto) 1-5 /hpf (0-5) 02/06/23 Unknown Urine RBC (Auto) 10-30 /hpf (0-4) H 02/06/23 Unknown U Hyaline Cast (Auto) 5-10 /lpf (0-5) H 02/06/23 Unknown U Epithel Cells (Auto) 5-10 /lpf (0-5) H 02/06/23 Unknown Urine Bacteria (Auto) Negative (Negative) 02/06/23 Unknown Impressions Abdomen/Pelvis CT 02/05/23 20:20 Exam(s): CT ABDOMEN + PELVIS Without Contrast EXAM: CT Abdomen and Pelvis Without Intravenous Contrast CLINICAL HISTORY: Reason hernia surgery, fevers. TECHNIQUE: Axial computed tomography images of the abdomen and pelvis without intravenous contrast. CTDI is 26.87 mGy and DLP is 1579.69 mGy-cm. Automated exposure control was utilized for the study. A dose lowering technique was utilized adhering to the principles of ALARA. COMPARISON: CT abdomen and pelvis with contrast dated 01/13/2023 FINDINGS: Lung bases: Calcified granuloma noted in the right lower lobe and right middle lobe. ABDOMEN: Liver: Unremarkable. Gallbladder and bile ducts: Unremarkable. No calcified stones. No ductal dilation. Pancreas: Unremarkable. No ductal dilation. Spleen: Calcified granulomata in the spleen. Adrenals: Unremarkable. No mass. Kidneys and ureters: Kidneys demonstrate no significant alteration from the previous examination with similar renal cortical cysts. Nonobstructing subcentimeter nephrolithiasis noted bilaterally. No hydronephrosis. Stomach and bowel: No bowel obstruction. Evaluation of the bowel mucosa is limited without contrast. No significant asymmetry identified. Postsurgical changes noted in the region of the sigmoid colon. PELVIS: Appendix: No findings to suggest acute appendicitis. Bladder: Unremarkable. No stones. Reproductive: Unremarkable as visualized. ABDOMEN and PELVIS: Intraperitoneal space: No pneumoperitoneum. Bones/joints: A right total hip arthroplasty is identified. Grade 1 anterolisthesis of L5 on S1 secondary to bilateral L5 spondylolysis, stable in appearance. No acute osseous abnormality. No dislocation. Soft tissues: When compared to the previous examination, there has been interval ventral hernia repair with suspected mesh placement. Superficial to the presumed mesh in the subcutaneous soft tissues, there is a complex hypodense collection with scattered nondependent gas internally, measuring 4.3 x 13.7 x 13.1 cm. There is additional gas in the subcutaneous fat superior to the collection. Minimal fat stranding noted immediately deep to the presumed mesh. No loculated fluid collection. Vasculature: Unremarkable. No abdominal aortic aneurysm. Lymph nodes: Unremarkable. No enlarged lymph nodes. IMPRESSION: When compared to the previous examination, there has been interval ventral hernia repair with suspected mesh placement. Superficial to the presumed mesh in the subcutaneous soft tissues, there is a complex hypodense collection with scattered nondependent gas internally, measuring 4.3 x 13.7 x 13.1 cm. The internal nondependent gas is concerning for developing infection within the collection. Please correlate with laboratory and clinical findings. Electronically signed by: Campbell Lord MD 02/05/23 21:44 PM Chest X-Ray 02/05/23 20:20 SINGLE VIEW CHEST CLINICAL HISTORY: Sepsis. Fever. FINDINGS: An AP, portable, upright chest radiograph is compared to study dated 01/17/2023. The examination is degraded by portable technique and patient rotation. The heart is enlarged. The pulmonary vasculature is congested. There is chronic elevation of the left hemidiaphragm with minimal bibasilar atelectasis. There are scattered calcified granulomas. The lungs and pleural spaces are otherwise clear. No pneumothorax is seen. The skeletal structures are osteopenic. The bony thorax is grossly intact. 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 IMPRESSION: Cardiomegaly with no active disease in the chest. ACT 112: Negative or not required by law. Electronically signed by: Maxime Faust M.D. 02/05/2023 10:[address] 02/05/23 20:21 Exam(s): CT HEAD Without Contrast EXAM: CT Head Without Intravenous Contrast CLINICAL HISTORY: visual disturbance. TECHNIQUE: Axial computed tomography images of the head/brain without intravenous contrast. CTDI is 36.79 mGy and DLP is 702.46 mGy-cm. Automated exposure control was utilized for the study. A dose lowering technique was utilized adhering to the principles of ALARA. COMPARISON: No relevant prior studies available. FINDINGS: Brain: There are a few areas of decreased attenuation in the deep cerebral white matter consistent with mild small vessel ischemic/degenerative changes. The cerebral and cerebellar sulci are mildly prominent consistent with mild brain atrophy. No hemorrhage. Ventricles: Unremarkable. No ventriculomegaly. Bones/joints: No acute osseous abnormality. No focal lesion. Soft tissues: Unremarkable. Vasculature: Atherosclerotic disease. Sinuses: Unremarkable as visualized. No acute sinusitis. Mastoid air cells: Unremarkable as visualized. No mastoid effusion. Orbits: The orbits and globes are grossly unremarkable, accounting for limitations with [id number] imaging. IMPRESSION: No acute intracranial process identified. Electronically signed by: Campbell Lord MD 02/05/23 21:49 PM Code Status & VTE Plan Code Status Full code VTE Prophylaxis Plan VTE Prophylaxis will be ordered: Yes PG Care Time/CCT Total # of Minutes Spent Total Time Spent with Patient: Total time spent is greater than 50% in coordination of care (as documented) at patient's floor/unit and/or counseling patient: Coding Level of Care Code 97795 INT INP/OBS CARE 375MIN Diagnoses Abdominal wall abscess L02.211 Atrial fibrillation I48.91 HFrEF (heart failure with reduced ejection fraction) I50.20 Anxiety and depression F41.9; F32.A GERD (gastroesophageal reflux disease) K21.9 Hypertension I10 Rheumatoid arthritis M06.9 Coronary artery disease I25.10
--- NOTE | 2023-02-05 23:41 | Surgery Consultation ---
Date of Consultation February 05, 2023 Assessment & Plan (1) Abdominal pain: Plan Assessment: Patient is a 77 years old gentleman who is 3-weeks post stat open repair incarcerated ventral hernia using mesh. Patient presented to ED with a 2-day history of abdominal discomfort for right hip pain, weakness, hot and cold. CT scan diagnosis of abdominal wall abscess. Plan. Was open to dressing on the drainage or site. Some purulent fluid comes out. I sent a wound culture. I used the hemostat to open the drainage site, there are some fluid comes out until stop. I put the dressing on. [facility] team admitted the patient to the hospital. Given the IV antibiotic. NPO, IV fluid. Repeat the labs tomorrow morning. I will discussion with the Dr. Aaron in the morning . Patient agreed with the plan. I answered all questions . History of Present Illness Reason for Consultation: abdominal wall abscess Requesting Physician: Rakesh Mascorro History of Present Illness CC: abdominal discomfort, weakness, HPI: Patient is a 77 years old gentleman with a past medical history coronary artery disease, 2 cardiac stent, A-fib on Eliquis, heart failure, hypertension, and GERD. Patient presented to ED with 2-day history of abdominal discomfort and right hip pain. weakness, Hot and cold, T 100.3. Patient had open repair incarcerated ventral hernia with mesh and drainage by Dr. Aaron January 15, 2023. Patient saw Dr. Aaron yesterday. Dr. Aaron remove the drainage at his office. Now patient come back to the ED with abdominal discomfort for right hip pain with hot and cold , weakness. Had a CT scan done in the ED. diagnosis possible abdominal wall abscess size of about 4 cm time 13 x 13 cm. Otherwise the patient denies diarrhea or constipation. No chest pain. No dizziness. Allergies Allergy/AdvReac Type Severity Reaction Status Date / Time cat dander Allergy Severe Swelling Verified 01/22/23 10:38 of Lip/Tongue/Throat Home Medications Medication Instructions Recorded Confirmed Type sennosides 8.6 mg capsule (senna) 8.6 mg PO AMHS 06/19/22 02/05/23 History nitroglycerin 0.4 mg sublingual 0.4 mg sublingual Q5M PRN chest 07/23/22 02/05/23 Rx tablet pain #30 tabs amiodarone 200 mg tablet 200 mg PO QAM 08/07/22 02/05/23 History ascorbic acid (vitamin C) 500 mg 1,000 mg PO QAM 08/07/22 02/05/23 History capsule aspirin 81 mg tablet,delayed 81 mg PO QAM 08/07/22 02/05/23 History release (Adult Low Dose Aspirin) coenzyme Q10 100 mg capsule 100 mg PO QAM 08/07/22 02/05/23 History isosorbide mononitrate 60 mg 60 mg PO QAM 08/07/22 02/05/23 History tablet,extended release 24 hr lactobacillus combination no.9 4 6,000 mmu cells PO QAM PRN use 08/07/22 02/05/23 History billion cell capsule (Adult 50 with antibiotics Plus Probiotic) lisinopril 10 mg tablet 10 mg PO QAM 08/07/22 02/05/23 History melatonin 5 mg capsule 5 mg PO HS 08/07/22 02/05/23 History uztcpwvt-gldjihc-semd-lutein tablet 1 tab PO QAM 08/07/22 02/05/23 History cholecalciferol (vitamin D3) 250 250 mcg PO DAILY 90 days #90 tabs 09/19/22 02/05/23 Rx mcg (10,000 unit) tablet metoprolol tartrate 25 mg tablet 12.5 mg PO BID #60 tabs 10/03/22 02/05/23 Rx upadacitinib 15 mg tablet,extended 15 mg PO QAM 10/15/22 02/05/23 History release 24 hr (Rinvoq) acetaminophen 500 mg capsule 1,000 mg PO TID 11/11/22 02/05/23 History omega 9-mwu-ltw-fish oil 1,000 mg 1 cap PO QAM #30 caps 12/15/22 02/05/23 Rx (120 mg-180 mg) capsule (Fish Oil) furosemide 20 mg tablet 20 mg PO DAILY PRN edema or weight 12/25/22 02/05/23 Rx gain #30 tabs pravastatin 40 mg tablet 40 mg PO HS 01/13/23 02/05/23 History ranolazine 500 mg tablet,extended 500 mg PO BID 01/13/23 02/05/23 History release,12 hr travoprost 0.004 % eye drops 1 drp OPB QPM 01/13/23 02/05/23 History (Travatan Z) oxycodone-acetaminophen 5 mg-325 1 tab PO Q6H PRN pain #12 tabs 01/16/23 02/05/23 Rx mg tablet (Percocet) cyanocobalamin (vitamin B-12) 500 1,000 mcg PO QAM #30 tabs 01/18/23 02/05/23 Rx mcg tablet folic acid 1 mg tablet 1 mg PO QAM #30 tabs 01/18/23 02/05/23 Rx hydroxyzine HCl 10 mg tablet 10 mg PO HS PRN anxiety or 01/18/23 02/05/23 Rx insomnia #14 tabs gabapentin 300 mg capsule 300 mg PO TID #90 caps 01/27/23 02/05/23 Rx apixaban 2.5 mg tablet (Eliquis) 2.5 mg PO BID 02/05/23 02/05/23 History duloxetine 60 mg capsule,delayed 60 mg PO QAM 02/05/23 02/05/23 History release esomeprazole magnesium 40 mg 40 mg PO HS 02/05/23 02/05/23 History capsule,delayed release (Nexium) potassium chloride 10 mEq 20 meq PO DAILY PRN when taking 02/05/23 02/05/23 History tablet,extended release(part/cryst) lasix thiamine HCl (vitamin B1) 100 mg 100 mg PO QAM 02/05/23 02/05/23 History tablet Patient History Medical History (Updated 02/05/23 @ 23:50 by Cortes Lee MD) Abdominal wall abscess Anxiety and depression Atherogenic dyslipidemia Atrial fibrillation episode occurred in 03/2022, taken to [facility] in [place], admitted to ICU for 1-2 weeks (was not intubated, but wasn't "awake either"), then to cardiac unit, then to rehab at [facility]; f/u dr. guerra in [place]>will be starting to see a hr business partner at [facility] 2nd week of 08/2022 Benign essential hypertension Coronary artery disease GERD (gastroesophageal reflux disease) Heart failure with preserved ejection fraction HFrEF (heart failure with reduced ejection fraction) EF 40% Mar 2022, improved 55-60% August 2022 Hx of staphylococcal infection 03/2022, w/"bacterial infection" at the same, in the rt. knee, occurrred during atrial fibrillation episode. "when he woke up, he couldn't walk." Hypomagnesemia Incisional hernia Lumbar radiculopathy Lumbar stenosis Myocardial Infarction "a silent one, 2019" Pneumonia Respiratory failure with hypoxia Rheumatoid arthritis Sepsis Septicemia due to Streptococcus pneumoniae Sleep apnea no device Surgical History History of bowel resection for diverticulitis; w/colostomy placement for 3-4 months History of cardiac cath ~3 years ago, SOB and "felt like throat was constricting", had "silent heart attack", x2 stents, done in [place] History of colostomy reversal History of esophagogastroduodenoscopy (EGD) History of heart artery stent ~3 years ago, x2 stents, done in [place]; f/u dr guerra, [place]>will be seeing new cardio at [place] week of August 2022. Hx of Achilles tendon repair rt. Hx of bilateral cataract extraction Hx of colonoscopy Last Colonoscopy 08/14/22, repeat 3 years in 2025 Hx of hernia repair near former colostomy site Hx of knee surgery rt. patellar tendon repair Hx of rotator cuff surgery bilateral Hx of total hip arthroplasty rt. Hx of total knee replacement lt. Family History Grandmother (Maternal) Diabetes Daughter Diabetes Father Suicide Hypertension Denies family history of Ovarian cancer Prostate cancer Myocardial infarction Breast cancer Lung cancer Colorectal cancer Stroke Social History Smoking Status: Never smoker Second Hand Exposure: No; Do You Dip or Chew Tobacco: No; Hx Alcohol Use: Yes Alcohol type: wine Alcohol Intake Frequency: 4 or More x per/Week Hx Substance Use: No Preferred Language: Divehi Communication Ability: Effective Visual Impairment: No Limitations Hearing Ability: Normal Economic Forecaster Required: No Beliefs That Will Affect Care: None marital status: Single Current Living Situation: Personal Care Facility Current Living Situation Comment: [facility] current occupational status: retired How many Children do You have: 2 Feels Safe at Home: Yes Childhood Exposure to Second-Hand Smoke: Yes caffeine: Yes Dental Care, Regularly: Yes Physical Activity Frequency: Does not Exercise Seatbelt Use: always Sunscreen Use: Yes Assistive Devices: Cane, Walker and Wheelchair Review of Systems Constitutional: as per Subjective / HPI obesity Eyes: as per Subjective / HPI Respiratory: as per Subjective / HPI Cardiovascular: Additional Comments: CAD, 2 cardiac stents, CHF, HTN, A-fib Gastrointestinal: S/P open repair incarcerated abdominal wall hernia with mesh, GERD Musculoskeletal: bilt knee replacement Neurologic: as per Subjective / HPI Psychiatric: as per Subjective / HPI Endocrine: as per Subjective / HPI Hematologic / Lymphatic: as per Subjective / HPI Physical Exam Constitutional: WD/WN, vitals as above Eyes: PERRL, conjunctivae normal, anicteric sclerae Neck: trachea midline, no thyromegaly Respiratory: normal respiratory effort, lungs clear to auscultation Cardiovascular: RRR, no murmur, no edema Gastrointestinal (Abdomen): middle incision heals well, no redness, some purulent drainage from drainage site. no tenderness at abdomen, no distend. BS +. Neurologic: patellar DTR's 2+ bilat, sensation intact Psychiatric: A+Ox3, euthymic affect Results & Data Vital Signs (Past 12 Hours) Vital Signs Temp Pulse Pulse Resp BP BP Pulse Ox 02/05/23 22:11 72 16 99/59 L 96 02/05/23 21:18 81 02/05/23 20:15 38.0 C H 94 H 20 134/78 98 O2 Del Method 02/05/23 22:11 Room Air 02/05/23 21:18 02/05/23 20:15 Room Air Laboratory Results Lab Results 02/05/23 02/05/23 02/05/23 Range/Units 20:20 20:42 20:42 WBC 6.87 (4.8-10.8) K/ul RBC 3.63 L (4.70-6.10) M/uL Hgb 10.2 L (14.0-18.0) g/dl Hct 31.2 L (42.0-52.0) % MCV 86.0 (80.0-100.0) fL MCH 28.1 (25.0-34.0) pg MCHC 32.7 (32.0-36.0) g/dL RDW Std Deviation 57.4 H (36.4-46.3) fL RDW Coeff of Sammie 18.3 H (11.5-14.5) % Plt Count 308 (130-400) K/uL MPV 9.7 (9.4-12.4) fL Immature Gran % (Auto) 0.3 % Neut % (Auto) 72.5 % Lymph % (Auto) 6.4 % Spencer % (Auto) 20.2 % Eos % (Auto) 0.3 % Baso % (Auto) 0.3 % Neut # (Auto) 4.98 (1.40-6.50) K/uL Lymph # (Auto) 0.44 L (1.20-3.40) K/uL Spencer # (Auto) 1.39 H (0.11-0.59) K/uL Eos # (Auto) 0.02 (0.00-0.50) K/uL Baso # (Auto) 0.02 (0.00-0.20) K/uL Immature Gran # (Auto) 0.02 (0.01-0.20) K/uL Polychromasia 1+ PT 12.4 H (9.0-12.0) Seconds INR 1.1 (0.9-1.1) APTT 31.6 H (21.0-31.0) Seconds PTT Ratio 1.1 Sodium (136-145) mmol/L Potassium (3.5-5.1) mmol/L Chloride (98-107) mmol/L Carbon Dioxide (21-32) mmol/L Anion Gap (3-11) BUN (6-23) mg/dl Creatinine (0.6-1.4) mg/dl Est Cr Clr Drug Dosing Est GFR ( Amer) ml/min Est GFR (Non-Af Amer) ml/min BUN/Creatinine Ratio (10-20) Glucose (70-99(Fasting)) mg/dl Lactate 2.2 H* (0.4-2.0) mmol/L Calcium (8.6-10.3) mg/dl Magnesium (1.7-2.4) mg/dl Total Bilirubin (0.2-1.0) mg/dl AST (13-39) U/L ALT (7-52) U/L Alkaline Phosphatase (34-104) U/L Troponin I High Sens (0-20) pg/ml Total Protein (6.0-8.3) gm/dl Albumin (3.4-5.0) gm/dl Globulin (2.5-4.0) gm/dl Albumin/Globulin Ratio (0.9-2) Procalcitonin (0-0.5) ng/ml 02/05/23 02/05/23 02/05/23 Range/Units 20:42 20:42 22:36 WBC (4.8-10.8) K/ul RBC (4.70-6.10) M/uL Hgb (14.0-18.0) g/dl Hct (42.0-52.0) % MCV (80.0-100.0) fL MCH (25.0-34.0) pg MCHC (32.0-36.0) g/dL RDW Std Deviation (36.4-46.3) fL RDW Coeff of Sammie (11.5-14.5) % Plt Count (130-400) K/uL MPV (9.4-12.4) fL Immature Gran % (Auto) % Neut % (Auto) % Lymph % (Auto) % Spencer % (Auto) % Eos % (Auto) % Baso % (Auto) % Neut # (Auto) (1.40-6.50) K/uL Lymph # (Auto) (1.20-3.40) K/uL Spencer # (Auto) (0.11-0.59) K/uL Eos # (Auto) (0.00-0.50) K/uL Baso # (Auto) (0.00-0.20) K/uL Immature Gran # (Auto) (0.01-0.20) K/uL Polychromasia PT (9.0-12.0) Seconds INR (0.9-1.1) APTT (21.0-31.0) Seconds PTT Ratio Sodium 132 L (136-145) mmol/L Potassium 4.5 (3.5-5.1) mmol/L Chloride 98 (98-107) mmol/L Carbon Dioxide 24 (21-32) mmol/L Anion Gap 10 (3-11) BUN 34 H (6-23) mg/dl Creatinine 1.42 H (0.6-1.4) mg/dl Est Cr Clr Drug Dosing Not Reportable Est GFR ( Amer) 54.1 ml/min Est GFR (Non-Af Amer) 46.6 ml/min BUN/Creatinine Ratio 23.9 H (10-20) Glucose 115 H (70-99(Fasting)) mg/dl Lactate 1.0 (0.4-2.0) mmol/L Calcium 8.9 (8.6-10.3) mg/dl Magnesium 1.8 (1.7-2.4) mg/dl Total Bilirubin 1.1 H (0.2-1.0) mg/dl AST 117 H (13-39) U/L ALT 40 (7-52) U/L Alkaline Phosphatase 68 (34-104) U/L Troponin I High Sens 83.9 H* (0-20) pg/ml Total Protein 6.1 (6.0-8.3) gm/dl Albumin 3.6 (3.4-5.0) gm/dl Globulin 2.5 (2.5-4.0) gm/dl Albumin/Globulin Ratio 1.4 (0.9-2) Procalcitonin 0.72 H (0-0.5) ng/ml 02/05/23 Range/Units 22:36 WBC (4.8-10.8) K/ul RBC (4.70-6.10) M/uL Hgb (14.0-18.0) g/dl Hct (42.0-52.0) % MCV (80.0-100.0) fL MCH (25.0-34.0) pg MCHC (32.0-36.0) g/dL RDW Std Deviation (36.4-46.3) fL RDW Coeff of Sammie (11.5-14.5) % Plt Count (130-400) K/uL MPV (9.4-12.4) fL Immature Gran % (Auto) % Neut % (Auto) % Lymph % (Auto) % Spencer % (Auto) % Eos % (Auto) % Baso % (Auto) % Neut # (Auto) (1.40-6.50) K/uL Lymph # (Auto) (1.20-3.40) K/uL Spencer # (Auto) (0.11-0.59) K/uL Eos # (Auto) (0.00-0.50) K/uL Baso # (Auto) (0.00-0.20) K/uL Immature Gran # (Auto) (0.01-0.20) K/uL Polychromasia PT (9.0-12.0) Seconds INR (0.9-1.1) APTT (21.0-31.0) Seconds PTT Ratio Sodium (136-145) mmol/L Potassium (3.5-5.1) mmol/L Chloride (98-107) mmol/L Carbon Dioxide (21-32) mmol/L Anion Gap (3-11) BUN (6-23) mg/dl Creatinine (0.6-1.4) mg/dl Est Cr Clr Drug Dosing Est GFR ( Amer) ml/min Est GFR (Non-Af Amer) ml/min BUN/Creatinine Ratio (10-20) Glucose (70-99(Fasting)) mg/dl Lactate (0.4-2.0) mmol/L Calcium (8.6-10.3) mg/dl Magnesium (1.7-2.4) mg/dl Total Bilirubin (0.2-1.0) mg/dl AST (13-39) U/L ALT (7-52) U/L Alkaline Phosphatase (34-104) U/L Troponin I High Sens 77.0 H* (0-20) pg/ml Total Protein (6.0-8.3) gm/dl Albumin (3.4-5.0) gm/dl Globulin (2.5-4.0) gm/dl Albumin/Globulin Ratio (0.9-2) Procalcitonin (0-0.5) ng/ml Diagnostic Findings Exam(s): CT ABDOMEN + PELVIS Without Contrast EXAM: CT Abdomen and Pelvis Without Intravenous Contrast CLINICAL HISTORY: Reason hernia surgery, fevers. TECHNIQUE: Axial computed tomography images of the abdomen and pelvis without intravenous contrast. CTDI is 26.87 mGy and DLP is 1579.69 mGy-cm. Automated exposure control was utilized for the study. A dose lowering technique was utilized adhering to the principles of ALARA. COMPARISON: CT abdomen and pelvis with contrast dated 01/13/2023 FINDINGS: Lung bases: Calcified granuloma noted in the right lower lobe and right middle lobe. ABDOMEN: Liver: Unremarkable. Gallbladder and bile ducts: Unremarkable. No calcified stones. No ductal dilation. Pancreas: Unremarkable. No ductal dilation. Spleen: Calcified granulomata in the spleen. Adrenals: Unremarkable. No mass. Kidneys and ureters: Kidneys demonstrate no significant alteration from the previous examination with similar renal cortical cysts. Nonobstructing subcentimeter nephrolithiasis noted bilaterally. No hydronephrosis. Stomach and bowel: No bowel obstruction. Evaluation of the bowel mucosa is limited without contrast. No significant asymmetry identified. Postsurgical changes noted in the region of the sigmoid colon. PELVIS: Appendix: No findings to suggest acute appendicitis. Bladder: Unremarkable. No stones. Reproductive: Unremarkable as visualized. ABDOMEN and PELVIS: Intraperitoneal space: No pneumoperitoneum. Bones/joints: A right total hip arthroplasty is identified. Grade 1 anterolisthesis of L5 on S1 secondary to bilateral L5 spondylolysis, stable in appearance. No acute osseous abnormality. No dislocation. Soft tissues: When compared to the previous examination, there has been interval ventral hernia repair with suspected mesh placement. Superficial to the presumed mesh in the subcutaneous soft tissues, there is a complex hypodense collection with scattered nondependent gas internally, measuring 4.3 x 13.7 x 13.1 cm. There is additional gas in the subcutaneous fat superior to the collection. Minimal fat stranding noted immediately deep to the presumed mesh. No loculated fluid collection. Vasculature: Unremarkable. No abdominal aortic aneurysm. Lymph nodes: Unremarkable. No enlarged lymph nodes. IMPRESSION: When compared to the previous examination, there has been interval ventral hernia repair with suspected mesh placement. Superficial to the presumed mesh in the subcutaneous soft tissues, there is a complex hypodense collection with scattered nondependent gas internally, measuring 4.3 x 13.7 x 13.1 cm. The internal nondependent gas is concerning for developing infection within the collection. Please correlate with laboratory and clinical findings.
[2023-02-06] MEDS ORDERED: NITROGLYCERIN SL 0.4 MG/TAB TAB SL PRN (00:24)
[2023-02-06] MEDS ORDERED: hydrOXYzine HCl 10 MG TAB PO PRN (00:24)
[2023-02-06] MEDS ORDERED: SODIUM CHLORIDE 0.9% 1,000 ML IV SCH (00:24)
[2023-02-06] MEDS ORDERED: oxyCODONE/ACETAMINOPHEN 5mg/325mg TAB PO PRN (00:24)
[2023-02-06] MEDS ORDERED: ONDANSETRON INJ 2 MG/ML 2 ML VIAL IV PRN (00:24)
[2023-02-06] MEDS: MoRPHine SULFATE 4 MG/ML 1 ML CARP\\VIAL IV PRN ×3 (00:42→07:49)
[2023-02-06 04:28] LABS: Appearance Urine Cloudy (Clear); Bacteria Urine Automated Negative (Negative); Bilirubin Urine Negative (Negative); Blood Urine Negative (Negative); Color Urine Dark Yellow; Glucose Urine UA Negative (Negative); Ketones Urine Trace (Negative); Leukocyte Esterase Urine Negative (Negative); Nitrite Urine Negative (Negative); Protein Urine 1+ (Negative); Specific Gravity Urine 1.029 (1.000-1.030); Urobilinogen Urine Negative (Negative)
[2023-02-06 05:20] LABS: Albumin Globulin Ratio 1.5 (0.9-2); Albumin Level 3.5 gm/dl (3.4-5.0); BUN Creatinine Ratio 24.2 (10-20); Bilirubin,Total 0.9 mg/dl (0.2-1.0); Calcium 8.6 mg/dl (8.6-10.3); Creatinine Clr Calc Pharmacy 56.6 ml/min; Est GFR (Non-African American) 50.9 ml/min; Globulin 2.4 gm/dl (2.5-4.0); Magnesium 1.8 mg/dl (1.7-2.4); Potassium 4.2 mmol/L (3.5-5.1); Total Protein 5.9 gm/dl (6.0-8.3)
[2023-02-06 05:43] LABS: Hematocrit (blood only) 30.7 % (42.0-52.0); Hemoglobin 10.1 g/dl (14.0-18.0); Mean Corpuscular Hemoglobin 28.1 pg (25.0-34.0); Mean Corpuscular Hgb Conc 32.9 g/dL (32.0-36.0); Mean Corpuscular Volume 85.3 fL (80.0-100.0); Mean Platelet Volume 9.9 fL (9.4-12.4); Platelet Count 307 K/uL (130-400); RDW Coefficient of Variation 18.6 % (11.5-14.5); RDW Standard Deviation 58.3 fL (36.4-46.3); White Blood Count 6.69 K/ul (4.8-10.8)
[2023-02-06 05:44] LABS: Basophils # (auto) 0.02 K/uL (0.00-0.20); Basophils % (auto) 0.3 %; Dohle Bodies 1+; Echinocytes 1+; Eosinophils % (auto) 1.5 %; Immature Granulocytes # (auto) 0.02 K/uL (0.01-0.20); Immature Granulocytes % (auto) 0.3 %; Monocytes # (auto) 1.41 K/uL (0.11-0.59); Monocytes % (auto) 21.1 %; Neutrophils # (auto) 4.54 K/uL (1.40-6.50); Neutrophils % (auto) 67.8 %; Tear Drop Cells 1+
[2023-02-06] MEDS: AMIODARONE 200 MG TAB PO SCH (07:53)
[2023-02-06] MEDS: CYANOCOBALAMIN (B-12) 500 MCG TABLET PO SCH (07:53)
[2023-02-06] MEDS: DULoxetine HCL 60 MG CAP PO SCH (07:54)
[2023-02-06] MEDS: FOLIC ACID 1 MG TAB PO SCH (07:54)
[2023-02-06] MEDS: GABAPENTIN 300 MG CAP PO SCH ×3 (07:54→22:16)
[2023-02-06] MEDS: SENNA 8.6 MG TAB PO SCH ×2 (07:55→22:15)
[2023-02-06] MEDS: THIAMINE HCL 100 MG TAB PO SCH (07:55)
[2023-02-06] MEDS: RANOLAZINE 500 MG ER TAB PO SCH ×2 (07:55→22:15)
[2023-02-06] MEDS: ADVANCED PROBIOTIC 1250 MG CAPSULE PO PRN (07:56)
[2023-02-06] MEDS: CEROVITE ADV FORMULA TAB PO SCH (07:56)
[2023-02-06] MEDS: PIPERACILLIN/TAZOBACTAM 4.5 GM in DEXTROSE 5% 100 ML IV SCH ×3 (07:57→22:30)
[2023-02-06] MEDS: ACETAMINOPHEN 500 MG TAB PO SCH ×3 (08:11→21:42)
[2023-02-06] MEDS ORDERED: ISOSORBIDE MONO EXTENDED REL 60 MG TABCR PO SCH (09:00)
[2023-02-06] MEDS ORDERED: METOPROLOL TARTRATE 25 MG TAB PO SCH ×2 (09:00)
[2023-02-06] MEDS ORDERED: lisinopril 10 MG TAB PO SCH (09:00)
[2023-02-06] MEDS ORDERED: LACTATED RINGER'S 500 ML IV ONE ×3 (11:01→14:52)
--- NOTE | 2023-02-06 13:10 | Ultrasound Report ---
Ultrasound-guided subcutaneous abdominal abscess drain placement INDICATION: Subcutaneous abdominal abscess collection PROCEDURE: Procedure and risks were explained. Informed consent was obtained. A final timeout was com pleted. The abdomen was prepped and draped in sterile fashion. 1% buffered lidocaine was utilized for skin anesthesia. Utilizing ultrasound guidance, an 18-gauge Chiba needle was advanced into the subcutaneous abdominal abscess collection. Ultrasound images were obtained. A 0.035 Amplatz wire was introduced through the Chiba needle and exchanged for a 10 [place] locking pigtail catheter. Approximately 50 mL of purulent fluid was aspirated and sent to the lab for analysis. The pigtail catheter was sutured to the skin wi th 2-0 silk and placed to suction bag drainage. An additional 100 mL of purulent fluid was noted. The patient tolerated the procedure well. Vital signs will be monitored postprocedure. IMPRESSION: Ultrasound guided abscess drain placement as above. Performed, dictated, and signed by Campbell Sanchez PA-C; to be co-signed by Dr. Jong Nascimento. Electronically signed by: Jong Nascimento M.D. 02/06/2023 1:09 PM
[2023-02-06] MEDS ORDERED: VANCOMYCIN CONSULT ACTIVE PRN (13:42)
--- NOTE | 2023-02-06 14:34 | Pharmacy Report ---
Pharmacy PK ABX Note - Date of Service February 06, 2023 - Assessment and Plan Assessment 77 year old M receiving vancomycin for treatment of surgical site infection. Patient had a hernia surgery on 01/15/23. Drain from hernia surgery recently removed. Pertinent microbiologic data includes: blood culture currently growing. Abdominal culture pending but Gram stain show Gram positive cocci. Day # 1 of antimicrobial therapy. Plan Vancomycin * Loading dose: 2000 mg IV x 1 * Maintenance dose: 750 mg IV every 12 hours * Regimen is predicted to achieve target AUC/KARL of 400-600 mg/L.hr * Trough level ordered for: 02/08/23 Pharmacy will continue to follow and will adjust dose/frequency as necessary. Thank you. Pharmacy has transitioned to AUC monitoring for vancomycin. AUC/KARL is the preferred PK/PD target and is associated with decreased risk of nephrotoxicity compared to traditional trough targets.
[2023-02-06] MEDS ORDERED: oxyCODONE HCL IR 5 MG TAB (IMMEDIATE RELEASE) PO STA (14:39)
[2023-02-06] MEDS ORDERED: KETOROLAC TROMETHAMINE 15 MG/ML VIAL IV ONE (14:40)
[2023-02-06] MEDS ORDERED: HYDROCORTISONE SOD SUCCINATE 100 MG/2 ML VIAL IV STA (14:52)
[2023-02-06] MEDS: VANCOMYCIN HCL 750 MG in SODIUM CHLORIDE 0.9% 250 ML IV SCH (17:46)
--- NOTE | 2023-02-06 17:57 | Hospitalist Progress Note ---
Date of Service February 06, 2023 Assessment & Plan (1) Severe sepsis: Plan: 2nd #2 hypotensive today - gave 3 LR boluses x 500cc each; gave hydrocortisone 100mg IV x 1 (cortisol random was 16, but given the severity of illness would have anticipated much higher level) cont zosyn add vancomycin cont LR maintenance fluid 100cc/hr cont hydrocortisone 25mg IV TID hold all anti-hypertensives appreciate gen surg & IR assistance (2) Abdominal wall abscess: Plan: wound cx 02/05 with staph species s/p IR placement of drainage catheter with LARGE amount of purulent fluid already obtained culture from today's procedure sent cont zosyn add vanco see #1 above patient had incarcerated ventral hernia repair on 01/15/[address] Jerzy Aaron, [facility] I spoke with Dr Aaron this evening - goal is to treat this abscess conservatively with IV abx and supportive care Hopefully repeat surgery can be avoided as he is high risk for additional complications (3) Acute metabolic encephalopathy: Plan: 2nd #1 supportive care avoid sedatives melatonin HS (4) Hypotension: Plan: 2nd to #1 repeat BMP and lactate this evening - both acceptable s/p LR boluses x 3 of 500cc each and stress dose hydrocortisone IV (see above) BPs improved with such hold all anti-hypertensives last EF on echo was preserved (5) Hyponatremia: Plan: 132-133 while here he appears significantly volume contracted cont isotonic fluid BMP am (6) Visual disturbance: Plan: present a few days vs a few weeks? the history is not clear underwent full eye exam with dilation this week and by report was wnl this may be due to #3 in setting of severe sepsis if it persists, however, he would need MRI brain to r/o subacute CVA, etc (7) Atrial fibrillation: Plan: remains in NSR hold beta pato due to hypotension but cont amiodarone daily eliquis was placed on hold in the event he needed surgical intervention of #2 looking like that will be avoided can likely resume eliquis this weekend (8) History of CHF (congestive heart failure): Plan: 08/31/22 echo with EF 55-60% he is clinically volume contracted on exam today cont IV fluids hold beta pato due to hypotension hold diuretics (9) Hypertension: Plan: holding anti-hypertensives due to #1 and hypotension (10) Rheumatoid arthritis: Plan: follows with Dr Waldron - [facility] [place] Rheum hold immunotherapy while ill (11) Coronary artery disease: Plan: cont asa cont statin cont Ranexa hold BB due to hypotension; hold imdur as well hold MARITZA (12) Incarcerated intra-abdominal hernia: Plan: s/p ventral hernia repair 01/15/23 now complicated by intra-abdominal abscess see above care d/w gen surg, Dr Aaron, by phone today s/p placement of drain into the abscess by IR today Plan DVT proph - if not surgical procedure will be needed this weekend resume N[place] daughter updated extensively at bedside pt's son was on speaker phone during my visit due to persistent hypotension and management of such -- critical care time 60 minutes today hypotension constituted a life-threatening situation with risk of kidney injury, etc due to such Admission and Anticipated Discharge Date Admission Date: February 05, 2023 Subjective saw patient after he got to his room on tele unit he had underwent IR placement of a drain in his abdominal wall abscess copious amounts of purulent liquid were obtained during the procedure when I rounded on him he had 75cc of purulent fluid in the collection device in addition to what was obtained by IR he reports ongoing abdominal pain appetite is poor, but he did tolerate clear liquids he continues with visual disturbance, seeing "bar codes" and other objects in his visual field he apparently saw ophtho this week and had a normal dilated eye exam (per his daughter who was at bedside during the visit) he denies any dyspnea at rest he continues to feel poorly with fatigue & weakness UOP has been poor today - bladder scan performed during my visit - only 100cc of urine in bladder pt had his ELYSSA drain removed at the [facility] gen surg office earlier this week he had the drain in place since his ventral hernia repair on 01/15/[address] Jerzy Aaron the drain had been putting out 75-100cc of serosanguinous fluid on daily basis since the operation the hernia repair was done due to incarceration family asks about his immunotherapy for his RA - recommended that this be placed on hold Review of Systems Review of Systems: gen - feels very poorly, weak, poor appetite eyes - ongoing visual disturbance, but no vision loss cv - no cp, no orthpnea pulm - no dyspnea GI - ongoing abd pain; no vomiting Physical Exam Physical Exam: gen - looks ill/sickly, tired/weak, but able to answer questions & follow commands mouth - MM very dry neck - no JVD heart - RRR, s1 s2 lungs - CTA B/l abd - feels distended; midline abdominal wall incision clean; former ELYSSA site has heeling tissue/is closed; drain in place with dressings; drain has copious purulent fluid in collection device; BS+; tender throughout the abdomen ext - no edema, pulses 2+ b/l skin - skin tear right arm; stasis changes b/l legs; right antonio with superficial ulcer psych - modestly confused Results & Data Results & Data Vital Signs (Past 12 Hours) Vital Signs Temp Pulse Pulse Resp BP Pulse Ox O2 Del Method 02/06/23 16:28 74 02/06/23 15:30 106/62 02/06/23 14:04 37 C 74 18 91/58 L 95 Room Air 02/06/23 13:30 36.8 C 74 17 97/52 L 93 Room Air 02/06/23 12:34 84/52 L 02/06/23 12:15 100/70 02/06/23 11:49 74/48 L 02/06/23 07:55 38.4 C H 103 H 18 135/71 93 Room Air 02/06/23 08:07 02/06/23 07:07 107 H 02/06/23 06:30 102 H 24 95 O2 Del Method O2 Flow Rate 02/06/23 16:28 02/06/23 15:30 02/06/23 14:04 02/06/23 13:30 02/06/23 12:34 02/06/23 12:15 02/06/23 11:49 02/06/23 07:55 02/06/23 08:07 Room Air 93 02/06/23 07:07 02/06/23 06:30 Laboratory Results Laboratory Results - last 24 hr 02/05/23 02/05/23 02/05/23 20:20 20:42 20:42 WBC 6.87 RBC 3.63 L Hgb 10.2 L Hct 31.2 L MCV 86.0 MCH 28.1 MCHC 32.7 RDW Std Deviation 57.4 H RDW Coeff of Sammie 18.3 H Plt Count 308 MPV 9.7 Immature Gran % (Auto) 0.3 Neut % (Auto) 72.5 Lymph % (Auto) 6.4 [place] % (Auto) 20.2 Eos % (Auto) 0.3 Baso % (Auto) 0.3 Neut # (Auto) 4.98 Lymph # (Auto) 0.44 L [place] # (Auto) 1.39 H Eos # (Auto) 0.02 Baso # (Auto) 0.02 Immature Gran # (Auto) 0.02 Dohle Bodies Polychromasia 1+ Tear Drop Cells Echinocytes PT 12.4 H INR 1.1 APTT 31.6 H PTT Ratio 1.1 Sodium Potassium Chloride Carbon Dioxide Anion Gap BUN Creatinine Est Cr Clr Drug Dosing Est GFR ( Amer) Est GFR (Non-Af Amer) BUN/Creatinine Ratio Glucose Lactate 2.2 H* Calcium Magnesium Total Bilirubin AST ALT Alkaline Phosphatase Troponin I High Sens Total Protein Albumin Globulin Albumin/Globulin Ratio Procalcitonin Random Cortisol Urine Color Urine Appearance Urine pH Ur Specific Dalton Urine Protein Urine Glucose (UA) Urine Ketones Urine Blood Urine Nitrite Urine Bilirubin Urine Urobilinogen Ur Leukocyte Esterase Urine WBC (Auto) Urine RBC (Auto) U Hyaline Cast (Auto) U Epithel Cells (Auto) Urine Bacteria (Auto) 02/05/23 02/05/23 02/05/23 20:42 20:42 22:36 WBC RBC Hgb Hct MCV MCH MCHC RDW Std Deviation RDW Coeff of Sammie Plt Count MPV Immature Gran % (Auto) Neut % (Auto) Lymph % (Auto) [place] % (Auto) Eos % (Auto) Baso % (Auto) Neut # (Auto) Lymph # (Auto) [place] # (Auto) Eos # (Auto) Baso # (Auto) Immature Gran # (Auto) Dohle Bodies Polychromasia Tear Drop Cells Echinocytes PT INR APTT PTT Ratio Sodium 132 L Potassium 4.5 Chloride 98 Carbon Dioxide 24 Anion Gap 10 BUN 34 H Creatinine 1.42 H Est Cr Clr Drug Dosing Not Reportable Est GFR ( Amer) 54.1 Est GFR (Non-Af Amer) 46.6 BUN/Creatinine Ratio 23.9 H Glucose 115 H Lactate 1.0 Calcium 8.9 Magnesium 1.8 Total Bilirubin 1.1 H AST 117 H ALT 40 Alkaline Phosphatase 68 Troponin I High Sens 83.9 H* Total Protein 6.1 Albumin 3.6 Globulin 2.5 Albumin/Globulin Ratio 1.4 Procalcitonin 0.72 H Random Cortisol Urine Color Urine Appearance Urine pH Ur Specific Dalton Urine Protein Urine Glucose (UA) Urine Ketones Urine Blood Urine Nitrite Urine Bilirubin Urine Urobilinogen Ur Leukocyte Esterase Urine WBC (Auto) Urine RBC (Auto) U Hyaline Cast (Auto) U Epithel Cells (Auto) Urine Bacteria (Auto) 02/05/23 02/06/23 02/06/23 22:36 04:24 04:24 WBC 6.69 RBC 3.60 L Hgb 10.1 L Hct 30.7 L MCV 85.3 MCH 28.1 MCHC 32.9 RDW Std Deviation 58.3 H RDW Coeff of Sammie 18.6 H Plt Count 307 MPV 9.9 Immature Gran % (Auto) 0.3 Neut % (Auto) 67.8 Lymph % (Auto) 9.0 [place]son % (Auto) 21.1 Eos % (Auto) 1.5 Baso % (Auto) 0.3 Neut # (Auto) 4.54 Lymph # (Auto) 0.60 L [place] # (Auto) 1.41 H Eos # (Auto) 0.10 Baso # (Auto) 0.02 Immature Gran # (Auto) 0.02 Dohle Bodies 1+ Polychromasia Tear Drop Cells 1+ Echinocytes 1+ PT INR APTT PTT Ratio Sodium 133 L Potassium 4.2 Chloride 100 Carbon Dioxide 25 Anion Gap 8 BUN 32 H Creatinine 1.32 Est Cr Clr Drug Dosing 56.6 Est GFR ( Amer) 59.0 Est GFR (Non-Af Amer) 50.9 BUN/Creatinine Ratio 24.2 H Glucose 121 H Lactate Calcium 8.6 Magnesium 1.8 Total Bilirubin 0.9 AST 111 H ALT 41 Alkaline Phosphatase 65 Troponin I High Sens 77.0 H* Total Protein 5.9 L Albumin 3.5 Globulin 2.4 L Albumin/Globulin Ratio 1.5 Procalcitonin Random Cortisol Urine Color Urine Appearance Urine pH Ur Specific Dalton Urine Protein Urine Glucose (UA) Urine Ketones Urine Blood Urine Nitrite Urine Bilirubin Urine Urobilinogen Ur Leukocyte Esterase Urine WBC (Auto) Urine RBC (Auto) U Hyaline Cast (Auto) U Epithel Cells (Auto) Urine Bacteria (Auto) 02/06/23 02/06/23 04:24 Unknown WBC RBC Hgb Hct MCV MCH MCHC RDW Std Deviation RDW Coeff of Sammie Plt Count MPV Immature Gran % (Auto) Neut % (Auto) Lymph % (Auto) [place] % (Auto) Eos % (Auto) Baso % (Auto) Neut # (Auto) Lymph # (Auto) [place] # (Auto) Eos # (Auto) Baso # (Auto) Immature Gran # (Auto) Dohle Bodies Polychromasia Tear Drop Cells Echinocytes PT INR APTT PTT Ratio Sodium Potassium Chloride Carbon Dioxide Anion Gap BUN Creatinine Est Cr Clr Drug Dosing Est GFR ( Amer) Est GFR (Non-Af Amer) BUN/Creatinine Ratio Glucose Lactate Calcium Magnesium Total Bilirubin AST ALT Alkaline Phosphatase Troponin I High Sens Total Protein Albumin Globulin Albumin/Globulin Ratio Procalcitonin Random Cortisol 16.32 Urine Color Dark Yellow Urine Appearance Cloudy A Urine pH 5.0 Ur Specific Dalton 1.029 Urine Protein 1+ H Urine Glucose (UA) Negative Urine Ketones Trace H Urine Blood Negative Urine Nitrite Negative Urine Bilirubin Negative Urine Urobilinogen Negative Ur Leukocyte Esterase Negative Urine WBC (Auto) 1-5 Urine RBC (Auto) 10-30 H U Hyaline Cast (Auto) 5-10 H U Epithel Cells (Auto) 5-10 H Urine Bacteria (Auto) Negative Diagnostic Findings wound cx 02/05 from abdomen - staph species PG Care Time/CCT Total # of Minutes Spent Total Time Spent with Patient: Total time spent is greater than 50% in coordination of care (as documented) at patient's floor/unit and/or counseling patient: Critical Care Time: Yes Total Critical Care Time: 60 Coding Level of Care Code None Diagnoses Severe sepsis A41.9; R65.20 Abdominal wall abscess L02.211 Acute metabolic encephalopathy G93.41 Hypotension I95.9 Hyponatremia E87.1 Visual disturbance H53.9 Atrial fibrillation I48.91 History of CHF (congestive heart failure) Z86.79 Hypertension I10 Rheumatoid arthritis M06.9 Coronary artery disease I25.10 Incarcerated intra-abdominal hernia K46.0 Additional Codes Critical Care Time - Critical Care Time: Yes ([id number])
[2023-02-06 19:46] LABS: Base Excess VBG -1.5 mEq/L; HCO3 VBG 24 mmol/L; PCO2 VBG 41 mmHg (38-50); PO2 VBG 44 mmHg; pH VBG 7.37 (7.36-7.41)
[2023-02-06] MEDS: traMADol HCL 50 MG TABLET PO PRN (19:57)
[2023-02-06 20:11] LABS: BUN Creatinine Ratio 21.3 (10-20); Calcium 8.2 mg/dl (8.6-10.3); Creatinine Clr Calc Pharmacy 54.9 ml/min; Est GFR (Non-African American) 49.1 ml/min; Potassium 4.3 mmol/L (3.5-5.1)
[2023-02-06 20:36] LABS: C Reactive Protein 31.91 mg/dl (0-0.5)
[2023-02-06] MEDS ORDERED: PRAVASTATIN SOD 40 MG TAB PO SCH (21:00)
[2023-02-06] MEDS: HYDROCORTISONE SOD 25 MG in SYRINGE 0 ML IV SCH (22:08)
[2023-02-06] MEDS: TRAVOPROST Z 0.004% OPH SOLN 2.5 ML BTL OPB SCH (22:12)
[2023-02-06] MEDS: MELATONIN 3 MG TAB PO SCH (22:14)
[2023-02-06] MEDS: PANTOprazole 40 MG TAB PO SCH (22:15)
[2023-02-07] MEDS: VANCOMYCIN HCL 750 MG in SODIUM CHLORIDE 0.9% 250 ML IV SCH ×2 (03:59→17:55)
[2023-02-07] MEDS: HYDROCORTISONE SOD 25 MG in SYRINGE 0 ML IV SCH ×2 (04:00→14:05)
[2023-02-07] MEDS: PIPERACILLIN/TAZOBACTAM 4.5 GM in DEXTROSE 5% 100 ML IV SCH ×3 (05:41→21:00)
[2023-02-07] MEDS: traMADol HCL 50 MG TABLET PO PRN ×2 (05:50→19:23)
--- NOTE | 2023-02-07 06:21 | Surgery Progress Note ---
Date of Service February 07, 2023 Assessment & Plan (1) Abdominal wall abscess: Plan: Patient is status post ventral hernia repair with mesh by Dr. Aaron on 01/15/2023 CT scan of abdomen pelvis on 02/05/2023 showed concern for a complex fluid collection measuring 4.3 x 13.7 x 13.1 cm Patient had a percutaneous drain placed on 02/06/2023 at which time approxione 150 cc of purulent fluid was drained Continue percutaneous drain to suction Preliminary wound culture does show staph species with further sensitivities pending Continue antibiotics in the form of Zosyn and Vancomycin which can be tailored based on further culture data Check a.m. labs when available Admission and Anticipated Discharge Date Admission Date: February 05, 2023 Supervising Physician Co-Signing Physician Notes I agree with the above. The patient's last fever was 7:24pm yesterday. Will need to be at least 24 hours afebrile prior to discharge. He has been HD stable. The wound culture from 02/05 so far is revealing MRSA with SSbut this has not yet been finalized. The cultures from 02/06 reveal a finalized gram stain without further information on the species yet and is also preliminary. Expecting these cultures may be finalized tomorrow at which time we may consider discharge if the patient has remained afebrile. He is taking in a heart healthy diet in the meantime. Ambulate as much as possible. Will f/u in the am. Subjective Patient is resting comfortably in bed. He denies any abdominal pain. He denies any nausea or vomiting. He notes he was having fevers at time of admission to the hospital but these have resolved. He denies any shakes or chills. Physical Exam Gastrointestinal (Abdomen): Abdomen is soft and nondistended. There is no pain with palpation. Incision from previous hernia repair is intact without any evidence of infection. Patient does have a percutaneous drain in place that was placed by interventional radiology yesterday and abscess site. Results & Data Vital Signs (Past 12 Hours) Vital Signs Temp Pulse Pulse Resp BP Pulse Ox O2 Del Method 02/07/23 04:11 36.4 C L 59 L 18 102/67 95 Room Air 02/06/23 23:43 64 02/06/23 23:24 37.3 C 67 18 100/61 93 Room Air 02/06/23 19:24 37.8 C H 71 16 110/67 93 Room Air PG Care Time/CCT Total # of Minutes Spent Total Time Spent with Patient: Total time spent is greater than 50% in coordination of care (as documented) at patient's floor/unit and/or counseling patient: Coding Level of Care Code 74227 SUB INP/OBS CARE 07/02MIN Diagnoses Abdominal wall abscess L02.211
[2023-02-07 07:04] LABS: Hematocrit (blood only) 26.2 % (42.0-52.0); Hemoglobin 8.5 g/dl (14.0-18.0); Mean Corpuscular Hemoglobin 27.8 pg (25.0-34.0); Mean Corpuscular Hgb Conc 32.4 g/dL (32.0-36.0); Mean Corpuscular Volume 85.6 fL (80.0-100.0); Mean Platelet Volume 10.2 fL (9.4-12.4); Platelet Count 264 K/uL (130-400); RDW Coefficient of Variation 18.6 % (11.5-14.5); RDW Standard Deviation 58.7 fL (36.4-46.3); Red Blood Count 3.06 M/uL (4.70-6.10); White Blood Count 10.26 K/ul (4.8-10.8)
[2023-02-07 07:18] LABS: BUN Creatinine Ratio 21.8 (10-20); Calcium 8.3 mg/dl (8.6-10.3); Est GFR (African American) 63.7 ml/min; Est GFR (Non-African American) 54.9 ml/min; Potassium 4.4 mmol/L (3.5-5.1)
[2023-02-07 07:26] LABS: Basophils # (auto) 0.01 K/uL (0.00-0.20); Basophils % (auto) 0.1 %; Eosinophils # (auto) 0.01 K/uL (0.00-0.50); Eosinophils % (auto) 0.1 %; Immature Granulocytes # (auto) 0.08 K/uL (0.01-0.20); Immature Granulocytes % (auto) 0.8 %; Lymphocytes # (auto) 0.45 K/uL (1.20-3.40); Lymphocytes % (auto) 4.4 %; Monocytes # (auto) 1.14 K/uL (0.11-0.59); Monocytes % (auto) 11.1 %; Neutrophils # (auto) 8.57 K/uL (1.40-6.50); Neutrophils % (auto) 83.5 %; RBC Morphology Unremarkable
[2023-02-07] MEDS: GABAPENTIN 300 MG CAP PO SCH ×3 (08:32→19:43)
[2023-02-07] MEDS: SENNA 8.6 MG TAB PO SCH ×2 (08:32→19:43)
[2023-02-07] MEDS: RANOLAZINE 500 MG ER TAB PO SCH ×2 (08:32→19:43)
[2023-02-07] MEDS: ACETAMINOPHEN 500 MG TAB PO SCH ×3 (08:33→19:43)
[2023-02-07] MEDS: AMIODARONE 200 MG TAB PO SCH (09:28)
[2023-02-07] MEDS: CYANOCOBALAMIN (B-12) 500 MCG TABLET PO SCH (09:28)
[2023-02-07] MEDS: FOLIC ACID 1 MG TAB PO SCH (09:28)
[2023-02-07] MEDS: DULoxetine HCL 60 MG CAP PO SCH (09:29)
[2023-02-07] MEDS: CEROVITE ADV FORMULA TAB PO SCH (09:29)
[2023-02-07] MEDS: THIAMINE HCL 100 MG TAB PO SCH (11:05)
[2023-02-07] MEDS ORDERED: LACTATED RINGER'S 1,000 ML IV SCH (16:00)
[2023-02-07] MEDS: PANTOprazole 40 MG TAB PO SCH (19:43)
[2023-02-07] MEDS: MELATONIN 3 MG TAB PO SCH (19:44)
[2023-02-07] MEDS: TRAVOPROST Z 0.004% OPH SOLN 2.5 ML BTL OPB SCH (19:44)
--- NOTE | 2023-02-07 20:28 | Hospitalist Progress Note ---
Date of Service February 07, 2023 Assessment & Plan (1) Severe sepsis: Plan: 2nd #2 improved overall blood cx's remain negative abdominal wall abscess culture with MRSA cont zosyn cont vancomycin if cultures x 2 do not show any other pathogens beyond MRSA will stop zosyn tomorrow cont LR at 50cc/hr cont hydrocortisone but lower to BID dosing of 25mg cont to hold all anti-hypertensives appreciate gen surg & IR assistance (2) Abdominal wall abscess: Plan: wound cx 02/05 with MRSA wound cx 02/06 also with staph - likely to be MRSA place on contact precautions blood cx's remain negative s/p IR placement of drainage catheter with LARGE amount of purulent fluid cont zosyn - can likely d/c tomorrow if no other pathogens beyond MRSA grow cont vanco see #1 above patient had incarcerated ventral hernia repair on 01/15/23 by [facility] I spoke with Dr Aaron 02/06/23 - goal is to treat this abscess conservatively with IV abx and supportive care Hopefully repeat surgery can be avoided as he is high risk for additional complications will consult ID early this coming week for antibiotic recs (3) MRSA infection: Plan: of abdominal wall abscess see above contact precautions (4) Acute metabolic encephalopathy: Plan: 2nd #1 IMPROVED supportive care avoid sedatives melatonin HS (5) Hypotension: Plan: 2nd to #1 IMPROVED with IV fluids + stress dose steroids cont to hold all anti-hypertensives last EF on echo was preserved (6) Hyponatremia: Plan: 132-133 while here he was significantly volume contracted at admission and yesterday - volume status is improving with isotonic fluid BMP am (7) Visual disturbance: Plan: present 2-3 weeks underwent full eye exam with dilation this week and by report was wnl symptoms persist plan on MRI brain tomorrow etiology uncertain (8) Atrial fibrillation: Plan: remains in NSR cont amiodarone daily metoprolol on hold due to recent hypotension eliquis was placed on hold in the event he needed surgical intervention of #2 looking like that will be avoided can likely resume eliquis tomorrow (9) History of CHF (congestive heart failure): Plan: 08/31/22 echo with EF 55-60% he has been clinically volume contracted since admission although that is improving cont IV fluids hold beta pato due to hypotension hold diuretics (10) Hypertension: Plan: holding anti-hypertensives due to #1 and hypotension (11) Rheumatoid arthritis: Plan: follows with Dr Waldron - [facility] [place] Rheum hold immunotherapy while ill (12) Coronary artery disease: Plan: cont asa cont statin cont Ranexa hold BB due to hypotension; hold imdur as well; hold MARITZA (13) Incarcerated intra-abdominal hernia: Plan: s/p ventral hernia repair 01/15/23 now complicated by intra-abdominal abscess see above care d/w gen surg, Dr Aaron, by phone 02/06/23 s/p placement of drain into the abscess by IR 02/06/23 (14) Rhabdomyolysis: Plan: mild CPK just shy of 1000 resume IV fluids repeat level am elevated AST likely from CPK elevation hold statin Plan DVT proph - resume Eliquis tomorrow if he continues to improve daughter updated extensively by phone this evening Admission and Anticipated Discharge Date Admission Date: February 05, 2023 Subjective tele overnight - NSR, no a.fib he was resting in bed during the visit he reports feeling better appetite a little better energy improved unfortunately he is still having visual disturbance with seeing objects/black squares throughout both visual [place] no loss of vision or field cuts nothing is blurry less abd pain today no dyspnea mentions that his son was dx with stage 4 pancreatic ca several months ago family is still reeling from this diagnosis Review of Systems Review of Systems: gen - no fevers or chills cv - no cp, no orthopnea pulm - no dyspnea or cough GI - no nausea/emesis Physical Exam Physical Exam: gen - looks better today; mentation improved; overall appearance improved mouth - MM only slightly dry today neck - no JVD heart - RRR, s1 s2, no murmur lungs - CTA B/l abd - midline abdominal wall incision clean and healed; former ELYSSA site has heeling tissue/is closed; drain in place with dressings; drain has copious purulent fluid in collection device - about 25-50cc more than yesterday; BS+; generalized tenderness yesterday is now resolved ext - no edema, pulses 2+ b/l skin - stasis changes b/l legs; optifoams in place right arm and right antonio psych - a/o x 3 Results & Data Results & Data Vital Signs (Past 12 Hours) Vital Signs Temp Pulse Pulse Resp BP Pulse Ox O2 Del Method 02/07/23 19:00 37.0 C 66 18 120/68 94 Room Air 02/07/23 18:00 61 02/07/23 17:46 74 18 127/75 94 Room Air 02/07/23 11:59 36.5 C 66 18 115/64 94 Room Air Laboratory Results Laboratory Results - last 24 hr 02/06/23 02/07/23 02/07/23 19:32 05:38 05:38 WBC 10.26 RBC 3.06 L Hgb 8.5 L Hct 26.2 L MCV 85.6 MCH 27.8 MCHC 32.4 RDW Std Deviation 58.7 H RDW Coeff of Sammie 18.6 H Plt Count 264 MPV 10.2 Immature Gran % (Auto) 0.8 Neut % (Auto) 83.5 Lymph % (Auto) 4.4 [place] % (Auto) 11.1 Eos % (Auto) 0.1 Baso % (Auto) 0.1 Neut # (Auto) 8.57 H Lymph # (Auto) 0.45 L [place] # (Auto) 1.14 H Eos # (Auto) 0.01 Baso # (Auto) 0.01 Immature Gran # (Auto) 0.08 RBC Morphology Unremarkable Sodium 132 L Potassium 4.4 Chloride 103 Carbon Dioxide 25 Anion Gap 4 BUN 27 H Creatinine 1.24 Est Cr Clr Drug Dosing 60.0 Est GFR ( Amer) 63.7 Est GFR (Non-Af Amer) 54.9 BUN/Creatinine Ratio 21.8 H Glucose 134 H Calcium 8.3 L AST 68 H Total Creatine Kinase 994 H C-Reactive Protein 31.91 H Diagnostic Findings wound cx 02/05 - MRSA wound cx 02/06- staph species blood cx's negative PG Care Time/CCT Total # of Minutes Spent Total Time Spent with Patient: Total time spent is greater than 50% in coordination of care (as documented) at patient's floor/unit and/or counseling patient: Coding Level of Care Code 90003 SUB INP/OBS CARE 3/50MIN Diagnoses Severe sepsis A41.9; R65.20 Abdominal wall abscess L02.211 MRSA infection A49.02 Acute metabolic encephalopathy G93.41 Hypotension I95.9 Hyponatremia E87.1 Visual disturbance H53.9 Atrial fibrillation I48.91 History of CHF (congestive heart failure) Z86.79 Hypertension I10 Rheumatoid arthritis M06.9 Coronary artery disease I25.10 Incarcerated intra-abdominal hernia K46.0 Rhabdomyolysis M62.82
[2023-02-08] MEDS ORDERED: VANCOMYCIN LEVEL ONE (03:30)
[2023-02-08] MEDS: VANCOMYCIN HCL 750 MG in SODIUM CHLORIDE 0.9% 250 ML IV SCH (04:01)
[2023-02-08 04:16] LABS: Calcium 8.2 mg/dl (8.6-10.3); Creatinine Clr Calc Pharmacy 66.5 ml/min; Est GFR (Non-African American) 62.1 ml/min; Potassium 3.9 mmol/L (3.5-5.1)
[2023-02-08 04:40] LABS: Basophils # (auto) 0.03 K/uL (0.00-0.20); Basophils % (auto) 0.3 %; Eosinophils % (auto) 2.8 %; Hematocrit (blood only) 25.6 % (42.0-52.0); Hemoglobin 8.6 g/dl (14.0-18.0); Immature Granulocytes # (auto) 0.47 K/uL (0.01-0.20); Immature Granulocytes % (auto) 4.4 %; Lymphocytes # (auto) 0.97 K/uL (1.20-3.40); Mean Corpuscular Hemoglobin 28.2 pg (25.0-34.0); Mean Corpuscular Hgb Conc 33.6 g/dL (32.0-36.0); Mean Corpuscular Volume 83.9 fL (80.0-100.0); Mean Platelet Volume 9.9 fL (9.4-12.4); Monocytes # (auto) 1.15 K/uL (0.11-0.59); Monocytes % (auto) 10.6 %; Neutrophils # (auto) 7.88 K/uL (1.40-6.50); Neutrophils % (auto) 72.9 %; Platelet Count 285 K/uL (130-400); RDW Coefficient of Variation 18.4 % (11.5-14.5); RDW Standard Deviation 55.9 fL (36.4-46.3); Red Blood Count 3.05 M/uL (4.70-6.10)
[2023-02-08] MEDS: PIPERACILLIN/TAZOBACTAM 4.5 GM in DEXTROSE 5% 100 ML IV SCH (05:36)
--- NOTE | 2023-02-08 05:44 | Surgery Progress Note ---
Date of Service February 08, 2023 Assessment & Plan (1) Abdominal wall abscess: Plan: Patient is status post ventral hernia repair with mesh by Dr. Aaron on 01/15/2023 CT scan of abdomen pelvis on 02/05/2023 showed concern for a complex fluid collection measuring 4.3 x 13.7 x 13.1 cm Patient had a percutaneous drain placed on 02/06/2023 at which time approxione 150 cc of purulent fluid was drained Continue percutaneous drain to suction Wound culture has grown staph consistent with MRSA. Continue antibiotics in the form of Zosyn and Vancomycin Check a.m. labs when available Admission and Anticipated Discharge Date Admission Date: February 05, 2023 Supervising Physician Co-Signing Physician Notes I have seen this patient this am. He is comfortable, drain remains in place without drainage around the tube. The midline surgical incision remains intact. No erythema or swelling. There is a small area of excoriation containing exudate where the previous ELYSSA drain was in after surgery. Recommend Bacitracin to this area, cover with a dry gauze. F/U cultures when final and tailor antibiotics at that time. D/C pending final culture results. F/u with his surgeon after discharge. Subjective Patient is resting comfortably in bed. He denies any fevers, shakes, or chills. He denies any significant abdominal pain. He denies any nausea or vomiting. Physical Exam Gastrointestinal (Abdomen): Abdomen is soft and nondistended. There is minimal to no pain with palpation. Percutaneous drain is in place and has drained approximately 75 cc over the past 24 hours. Results & Data Vital Signs (Past 12 Hours) Vital Signs Temp Pulse Pulse Resp BP Pulse Ox O2 Del Method 02/08/23 03:44 36.7 C 71 18 127/71 98 Room Air 02/07/23 23:58 37 C 63 18 139/78 96 Room Air 02/07/23 23:32 67 02/07/23 19:00 37.0 C 66 18 120/68 94 Room Air 02/07/23 18:00 61 02/07/23 17:46 74 18 127/75 94 Room Air PG Care Time/CCT Total # of Minutes Spent Total Time Spent with Patient: Total time spent is greater than 50% in coordination of care (as documented) at patient's floor/unit and/or counseling patient: Coding Level of Care Code 78992 SUB INP/OBS CARE 07/02MIN Diagnoses Abdominal wall abscess L02.211
[2023-02-08] MEDS: RANOLAZINE 500 MG ER TAB PO SCH ×2 (07:59→19:50)
[2023-02-08] MEDS: GABAPENTIN 300 MG CAP PO SCH ×3 (07:59→19:50)
[2023-02-08] MEDS: SENNA 8.6 MG TAB PO SCH ×2 (07:59→19:49)
[2023-02-08] MEDS: CEROVITE ADV FORMULA TAB PO SCH (08:00)
[2023-02-08] MEDS: ACETAMINOPHEN 500 MG TAB PO SCH ×3 (08:01→19:48)
[2023-02-08] MEDS: DULoxetine HCL 60 MG CAP PO SCH (08:01)
[2023-02-08] MEDS: FOLIC ACID 1 MG TAB PO SCH (08:01)
[2023-02-08] MEDS: AMIODARONE 200 MG TAB PO SCH (08:02)
[2023-02-08] MEDS: THIAMINE HCL 100 MG TAB PO SCH (08:03)
[2023-02-08] MEDS: CYANOCOBALAMIN (B-12) 500 MCG TABLET PO SCH (08:03)
[2023-02-08] MEDS: HYDROCORTISONE SOD 25 MG in SYRINGE 0 ML IV SCH ×2 (10:55→19:54)
[2023-02-08] MEDS: METOPROLOL TARTRATE 25 MG TAB PO SCH ×2 (10:55→19:57)
[2023-02-08] MEDS: ENOXAPARIN INJ 40 MG/0.4 ML SYR SQ SCH (11:00)
[2023-02-08] MEDS ORDERED: ALBUTEROL HFA 8 GM INHALER INH ONE (11:05)
--- NOTE | 2023-02-08 11:39 | Pharmacy Report ---
Pharmacy PK ABX Note - Date of Service February 08, 2023 - Assessment and Plan Assessment 02/08: Preliminary Abdominal cultures growing MRSA, blood cultures negative at 48 hours. Possible de-escalation with finalized culture? SCr has been downtrending to baseline. Random level this AM 10.3, suggests current dosing achieving slightly below target AUC/KARL. Will increase dose. 02/06 77 year old M receiving vancomycin for treatment of surgical site infection. Patient had a hernia surgery on 01/15/23. Drain from hernia surgery recently removed. Pertinent microbiologic data includes: blood culture currently growing. Abdominal culture pending but Gram stain show Gram positive cocci. Day # 1 of antimicrobial therapy. Plan 02/08: * Adjust dose to 1250 mg q12H * Regimen is predicted to achieve target AUC/KARL * Random level in 1-2 days or with renal function changes. 02/06 Vancomycin * Loading dose: 2000 mg IV x 1 * Maintenance dose: 750 mg IV every 12 hours * Regimen is predicted to achieve target AUC/KARL of 400-600 mg/L.hr * Trough level ordered for: 02/08/23 Pharmacy will continue to follow and will adjust dose/frequency as necessary. Thank you. Pharmacy has transitioned to AUC monitoring for vancomycin. AUC/KARL is the preferred PK/PD target and is associated with decreased risk of nephrotoxicity compared to traditional trough targets.
--- NOTE | 2023-02-08 12:16 | XRay Report ---
TWO VIEW CHEST CLINICAL HISTORY: Cough and wheezing. FINDINGS: AP upright and lateral chest radiographs are compared to study dated 02/05/2023. The heart i s enlarged. The pulmonary vasculature is noncongested. A coronary artery stent is observed. There are calcified mediastinal and hilar lymph nodes. There are scattered calcified granulomas. 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 Scarring/atelectasis is noted at the lung base s. Trace pleural effusions are noted on the lateral projection. There is no airspace consolidation ty pical for pneumonia. There is no pneumothorax. The skeletal structures are osteopenic. The bony thora x appears intact. 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 Spondylosis is noted in the tho racic spine. IMPRESSION: 1. Cardiomegaly without radiographic evidence of congestive failure. 2. Trace pleural effusion. ACT 112: Negative or not required by law. Electronically signed by: Maxime Faust M.D. 02/08/2023 12:14 PM
[2023-02-08] MEDS: VANCOMYCIN HCL 1,250 MG in SODIUM CHLORIDE 0.9% 250 ML IV SCH (14:55)
[2023-02-08] MEDS ORDERED: FUROSEMIDE INJ 20 MG/2 ML VIAL IV ONE (15:49)
--- NOTE | 2023-02-08 15:50 | Hospitalist Progress Note ---
Date of Service February 08, 2023 Assessment & Plan (1) Severe sepsis: Plan: 2nd #2 improved blood cx's remain negative abdominal wall abscess culture with MRSA (on 2 separate cultures) no other pathogens isolated can stop zosyn cont vancomycin stop fluids today cont hydrocortisone 25mg IV BID for stress dose purposes appreciate gen surg & IR assistance (2) Abdominal wall abscess: Plan: wound cx 02/05 with MRSA wound cx 02/06 also w/ MRSA no other pathogens identified to date cont contact precautions blood cx's remain negative s/p IR placement of drainage catheter with LARGE amount of purulent fluid stop zosyn cont vanco see #1 above patient had incarcerated ventral hernia repair on 01/15/23 by Rachele Bennett Gen Surg I spoke with Dr Aaron 02/06/23 - goal is to treat this abscess conservatively with IV abx and supportive care Hopefully repeat surgery can be avoided as he is high risk for additional complications will consult ID early this coming week for antibiotic recs (3) MRSA infection: Plan: of abdominal wall abscess see above contact precautions (4) Acute metabolic encephalopathy: Plan: 2nd #1 IMPROVED supportive care avoid sedatives melatonin HS (5) Hypotension: Plan: 2nd to #1 resolved with fluids + stress dose steroids can resume metoprolol tartrate 12.5mg BID hold other anti-hypertensives for now last EF on echo was preserved (6) Hyponatremia: Plan: improved today 135 BMP am (7) Visual disturbance: Plan: present 2-3 weeks underwent full eye exam with dilation this past week and by report was wnl symptoms persist plan on MRI brain tomorrow etiology uncertain (8) Atrial fibrillation: Plan: remains in NSR cont amiodarone daily metoprolol can be resumed eliquis was placed on hold in the event he needed surgical intervention of #2 looking like that will be avoided can likely resume eliquis tomorrow (9) History of CHF (congestive heart failure): Plan: 08/31/22 echo with EF 55-60% he had been clinically volume contracted since admission today he c/o cough/wheezing cxr wnl biofire panel negative despite the cxr being negative I am wondering if he is mildly volume overloaded at this point (5+ liters positive since admission) stop fluids lasix 20mg IV x 1 now re-eval tomorrow (10) Hypertension: Plan: resume metoprolol hold other BP meds (11) Rheumatoid arthritis: Plan: follows with Dr Waldron - [facility] [place] Rheum hold immunotherapy while ill (12) Coronary artery disease: Plan: cont asa cont statin cont Ranexa resume metoprolol 12.5mg BID cont to hold imdur and MARITZA for now (13) Incarcerated intra-abdominal hernia: Plan: s/p ventral hernia repair 01/15/23 now complicated by intra-abdominal abscess see above care d/w gen surg, Dr Aaron, by phone 02/06/23 s/p placement of drain into the abscess by IR 02/06/23 (14) Rhabdomyolysis: Plan: mild CPK just shy of 1000 despite fluids his CPK remains the same he reports several months of muscle weakness of arms/legs if CPK remains elevated -- myositis?? elevated AST likely from CPK elevation hold statin repeat CPK am (15) Wheezing: Plan: 2nd to pulm edema? cxr negative for infiltrates resp biofire panel negative given he is 5+ liters positive since admission will stop fluids and give lasix 20mg IV x 1 re-eval tomorrow pt reports no response in cough/wheeze to albuterol MDI Plan DVT proph - resume Eliquis tomorrow if he continues to improve until then - lovenox 40mg daily daughter updated extensively by phone yesterday evening Admission and Anticipated Discharge Date Admission Date: February 05, 2023 Subjective tele again overnight with NSR patient "feeling ok" he seemed very down during the visit today with flat affect his biggest complaint today is that of cough with wheeze this started this am albuterol 2 puffs x 1 did not provide any relief of symptoms no prior h/o asthma/COPD denies orthopnea did have PND last pm though no chest pain abd pain is much improved having some urinary retention issues still still having the visual disturbances with seeing black objects throughout the room but NO visual field cuts Review of Systems Review of Systems: gen - fatigue, weak cv - no chest pain GI - no nausea/emesis - mild urinary retention - ongoing musculo - diffuse myalgias but worse in arms/legs; present "for months" Physical Exam Physical Exam: gen - NAD, lying comfortably in bed, looks depressed mouth - MMM neck - no JVD heart - RRR, s1 s2, no murmur lungs - mild end-exp wheezes, no rales, no increased work of breathing abd - midline abdominal wall incision clean and healed; former ELYSSA site has heeling tissue/is closed; drain in place with dressings; drain has copious purulent fluid in collection device; BS+; generalized tenderness resolved; there had been mild pink erythema (Faint) on the abdominal wall - this is resolved ext - no edema, pulses 2+ b/l skin - stasis changes b/l legs psych - a/o x 3, flat affect Results & Data Results & Data Vital Signs (Past 12 Hours) Vital Signs Temp Pulse Resp BP Pulse Ox O2 Del Method O2 Del Method 02/08/23 11:08 36.7 C 74 16 133/80 90 Room Air 02/08/23 12:00 65 16 94 Room Air 02/08/23 08:00 Room Air 02/08/23 07:42 36.6 C 66 14 135/74 95 Room Air O2 Flow Rate 02/08/23 11:08 02/08/23 12:00 02/08/23 08:00 93 02/08/23 07:42 Laboratory Results Laboratory Results - last 48 hr 02/07/23 02/07/23 02/08/23 05:38 05:38 03:43 WBC 10.26 10.80 RBC 3.06 L 3.05 L Hgb 8.5 L 8.6 L Hct 26.2 L 25.6 L MCV 85.6 83.9 MCH 27.8 28.2 MCHC 32.4 33.6 RDW Std Deviation 58.7 H 55.9 H RDW Coeff of Sammie 18.6 H 18.4 H Plt Count 264 285 MPV 10.2 9.9 Immature Gran % (Auto) 0.8 4.4 Neut % (Auto) 83.5 72.9 Lymph % (Auto) 4.4 9.0 [place] % (Auto) 11.1 10.6 Eos % (Auto) 0.1 2.8 Baso % (Auto) 0.1 0.3 Neut # (Auto) 8.57 H 7.88 H Lymph # (Auto) 0.45 L 0.97 L [place] # (Auto) 1.14 H 1.15 H Eos # (Auto) 0.01 0.30 Baso # (Auto) 0.01 0.03 Immature Gran # (Auto) 0.08 0.47 H RBC Morphology Unremarkable Sodium 132 L Potassium 4.4 Chloride 103 Carbon Dioxide 25 Anion Gap 4 BUN 27 H Creatinine 1.24 Est Cr Clr Drug Dosing 60.0 Est GFR ( Amer) 63.7 Est GFR (Non-Af Amer) 54.9 BUN/Creatinine Ratio 21.8 H Glucose 134 H Calcium 8.3 L AST 68 H Total Creatine Kinase 994 H Random Vancomycin Adenovirus (PCR) B. pertussis DNA (PCR) B.parapertussis DNA PCR C. pneumoniae DNA (PCR) Coronavirus OC43 (PCR) Coronavirus HKU1 (PCR) Coronavirus 229E (PCR) SARS-CoV-2 (PCR) Coronavirus NL63 (PCR) Human Metapneumovir PCR Influenza Type A (PCR) Influenza Type B (PCR) M. pneumoniae (PCR) Parainfluenza 1 (PCR) Parainfluenza 2 (PCR) Parainfluenza 3 (PCR) Parainfluenza 4 (PCR) RSV (PCR) Entero/Rhino (PCR) 02/08/23 02/08/23 02/08/23 03:43 03:43 17:53 WBC RBC Hgb Hct MCV MCH MCHC RDW Std Deviation RDW Coeff of Sammie Plt Count MPV Immature Gran % (Auto) Neut % (Auto) Lymph % (Auto) [place] % (Auto) Eos % (Auto) Baso % (Auto) Neut # (Auto) Lymph # (Auto) [place] # (Auto) Eos # (Auto) Baso # (Auto) Immature Gran # (Auto) RBC Morphology Sodium 135 L Potassium 3.9 Chloride 104 Carbon Dioxide 25 Anion Gap 6 BUN 28 H Creatinine 1.12 Est Cr Clr Drug Dosing 66.5 Est GFR ( Amer) 72.0 Est GFR (Non-Af Amer) 62.1 BUN/Creatinine Ratio 25.0 H Glucose 126 H Calcium 8.2 L AST Total Creatine Kinase 978 H Random Vancomycin 10.3 Adenovirus (PCR) Not Detected B. pertussis DNA (PCR) Not Detected B.parapertussis DNA PCR Not Detected C. pneumoniae DNA (PCR) Not Detected Coronavirus OC43 (PCR) Not Detected Coronavirus HKU1 (PCR) Not Detected Coronavirus 229E (PCR) Not Detected SARS-CoV-2 (PCR) Not Detected Coronavirus NL63 (PCR) Not Detected Human Metapneumovir PCR Not Detected Influenza Type A (PCR) Not Detected Influenza Type B (PCR) Not Detected M. pneumoniae (PCR) Not Detected Parainfluenza 1 (PCR) Not Detected Parainfluenza 2 (PCR) Not Detected Parainfluenza 3 (PCR) Not Detected Parainfluenza 4 (PCR) Not Detected RSV (PCR) Not Detected Entero/Rhino (PCR) Not Detected Diagnostic Findings Microbiology 02/06/23 11:10 Abdomen Gram Stain - Final 02/06/23 11:10 Abdomen Aerobic and Anaerobic Culture - Preliminary Staph aureus MRSA 02/05/23 20:30 Blood Aerobic Blood Culture - Preliminary No growth in Aerobic bottle after 48 hours. 02/05/23 20:30 Blood Anaerobic Blood Culture - Preliminary No growth in Anaerobic bottle after 48 hours. 02/05/23 20:20 Blood Aerobic Blood Culture - Preliminary No growth in Aerobic bottle after 48 hours. 02/05/23 20:20 Blood Anaerobic Blood Culture - Preliminary No growth in Anaerobic bottle after 48 hours. 02/05/23 22:50 Abdomen, Left Lower Quadrant Gram Stain - Final 02/05/23 22:50 Abdomen, Left Lower Quadrant Aerobic and Anaerobic Culture - Preliminary Staph aureus MRSA PG Care Time/CCT Total # of Minutes Spent Total Time Spent with Patient: Total time spent is greater than 50% in coordination of care (as documented) at patient's floor/unit and/or counseling patient: Coding Level of Care Code 53705 SUB INP/OBS CARE 3/50MIN Diagnoses Severe sepsis A41.9; R65.20 Abdominal wall abscess L02.211 MRSA infection A49.02 Acute metabolic encephalopathy G93.41 Hypotension I95.9 Hyponatremia E87.1 Visual disturbance H53.9 Atrial fibrillation I48.91 History of CHF (congestive heart failure) Z86.79 Hypertension I10 Rheumatoid arthritis M06.9 Coronary artery disease I25.10 Incarcerated intra-abdominal hernia K46.0 Rhabdomyolysis M62.82 Wheezing R06.2
[2023-02-08] MEDS: traMADol HCL 50 MG TABLET PO PRN (18:44)
[2023-02-08 18:53] LABS: Adenovirus PCR Not Detected (NotDetected); Bordetella parapertussis PCR Not Detected (NotDetected); Bordetella pertussis PCR Not Detected (NotDetected); Chlamydia pneumoniae PCR Not Detected (NotDetected); Coronavirus 229E PCR Not Detected (NotDetected); Coronavirus CoV-2 (COVID19)PCR Not Detected (NotDetected); Coronavirus HKU1 PCR Not Detected (NotDetected); Coronavirus NL63 PCR Not Detected (NotDetected); Coronavirus OC43PCR Not Detected (NotDetected); Human Metapneumovirus PCR Not Detected (NotDetected); Influenza A PCR Not Detected (NotDetected); Influenza B PCR Not Detected (NotDetected); Mycoplasma pneumoniae PCR Not Detected (NotDetected); Parainfluenza Virus 1 PCR Not Detected (NotDetected); Parainfluenza Virus 2 PCR Not Detected (NotDetected); Parainfluenza Virus 3 PCR Not Detected (NotDetected); Parainfluenza Virus 4 PCR Not Detected (NotDetected); Respiratory Syncytial VirusPCR Not Detected (NotDetected); Rhinovirus/Enterovirus PCR Not Detected (NotDetected)
[2023-02-08] MEDS: PANTOprazole 40 MG TAB PO SCH (19:50)
[2023-02-08] MEDS: TRAVOPROST Z 0.004% OPH SOLN 2.5 ML BTL OPB SCH (19:52)
[2023-02-08] MEDS: MoRPHine SULFATE 2 MG/ML CARP IV PRN (20:13)
[2023-02-08] MEDS: MELATONIN 3 MG TAB PO SCH (21:57)
[2023-02-09] MEDS: VANCOMYCIN HCL 1,250 MG in SODIUM CHLORIDE 0.9% 250 ML IV SCH ×2 (01:53→13:21)
[2023-02-09] MEDS: BACITRACIN OINT 14 GM TUBE EXT SCH (06:15)
[2023-02-09 06:45] LABS: Hematocrit (blood only) 27.9 % (42.0-52.0); Hemoglobin 9.1 g/dl (14.0-18.0); Mean Corpuscular Hemoglobin 28.1 pg (25.0-34.0); Mean Corpuscular Hgb Conc 32.6 g/dL (32.0-36.0); Mean Corpuscular Volume 86.1 fL (80.0-100.0); Mean Platelet Volume 9.7 fL (9.4-12.4); Platelet Count 302 K/uL (130-400); RDW Coefficient of Variation 18.3 % (11.5-14.5); RDW Standard Deviation 57.9 fL (36.4-46.3); Red Blood Count 3.24 M/uL (4.70-6.10); White Blood Count 10.87 K/ul (4.8-10.8)
[2023-02-09 06:56] LABS: BUN Creatinine Ratio 23.5 (10-20); Calcium 8.5 mg/dl (8.6-10.3); Est GFR (African American) 80.6 ml/min; Est GFR (Non-African American) 69.6 ml/min; Potassium 3.9 mmol/L (3.5-5.1)
[2023-02-09] MEDS ORDERED: POTASSIUM CHLORIDE CRTAB 20 MEQ TABCR PO STA (08:04)
[2023-02-09] MEDS ORDERED: FUROSEMIDE INJ 20 MG/2 ML VIAL IV STA (08:09)
[2023-02-09] MEDS: CEROVITE ADV FORMULA TAB PO SCH (08:10)
[2023-02-09] MEDS: FOLIC ACID 1 MG TAB PO SCH (08:11)
[2023-02-09] MEDS: guaiFENesin 600 MG TABCR PO SCH ×2 (08:11→20:19)
[2023-02-09] MEDS: ADVANCED PROBIOTIC 1250 MG CAPSULE PO PRN (08:11)
[2023-02-09] MEDS: ISOSORBIDE MONO EXTENDED REL 30 MG TABCR PO SCH (08:11)
[2023-02-09] MEDS: SENNA 8.6 MG TAB PO SCH ×2 (08:11→20:21)
[2023-02-09] MEDS: CYANOCOBALAMIN (B-12) 500 MCG TABLET PO SCH (08:11)
[2023-02-09] MEDS: DULoxetine HCL 60 MG CAP PO SCH (08:11)
[2023-02-09] MEDS: ACETAMINOPHEN 500 MG TAB PO SCH ×3 (08:12→22:17)
[2023-02-09] MEDS: GABAPENTIN 300 MG CAP PO SCH ×3 (08:12→20:21)
[2023-02-09] MEDS: THIAMINE HCL 100 MG TAB PO SCH (08:13)
[2023-02-09] MEDS: AMIODARONE 200 MG TAB PO SCH (08:13)
[2023-02-09] MEDS: RANOLAZINE 500 MG ER TAB PO SCH ×2 (08:14→20:18)
[2023-02-09] MEDS: ENOXAPARIN INJ 40 MG/0.4 ML SYR SQ SCH (08:15)
[2023-02-09] MEDS: METOPROLOL TARTRATE 25 MG TAB PO SCH ×2 (08:15→20:20)
[2023-02-09] MEDS ORDERED: MAGNESIUM OXIDE 400 MG TAB PO ONE (08:15)
[2023-02-09] MEDS: POLYETHYLENE (MIRALAX) 17 GM PACK PO SCH (08:19)
[2023-02-09] MEDS: predniSONE 10 MG TABLET PO SCH (09:37)
--- NOTE | 2023-02-09 15:55 | Electrocardiogram Report ---
Test Reason : Blood Pressure : / mmHG Vent. Rate : 095 BPM Atrial Rate : 095 BPM P-R Int : 168 ms QRS Dur : 114 ms QT Int : 368 ms P-R-T Axes : 023 -45 042 degrees QTc Int : 462 ms Normal sinus rhythm Left axis deviation Abnormal ECG When compared with ECG of 13-JAN-2023 20:48, Vent. rate has increased BY 35 BPM Nonspecific T wave abnormality no longer evident in Anterolateral leads Confirmed by Azam Horne ([id number]) on 02/09/2023 3:54:28 PM Referred By: REFERRED SELF Confirmed By:Azam Horne
[2023-02-09] MEDS: PANTOprazole 40 MG TAB PO SCH (20:18)
[2023-02-09] MEDS: traMADol HCL 50 MG TABLET PO PRN (20:18)
[2023-02-09] MEDS: BENZONATATE 100 MG CAPSULE PO SCH (20:55)
--- NOTE | 2023-02-09 20:56 | Hospitalist Progress Note ---
Date of Service February 09, 2023 Assessment & Plan (1) Severe sepsis: Plan: 2nd #2 sepsis resolved blood cx's remain negative abdominal wall abscess culture x 2 with MRSA; no other pathogens isolated cont vancomycin stop hydrocortisone that had been for stress dose purposes (cortisol level was "normal' but only mid-teens - would have expected level much higher with how sick he was) appreciate gen surg & IR assistance (2) Abdominal wall abscess: Plan: wound cx 02/05 with MRSA wound cx 02/06 also w/ MRSA no other pathogens identified to date cont contact precautions blood cx's remain negative s/p IR placement of drainage catheter with LARGE amount of purulent fluid cont vanco see #1 above patient had incarcerated ventral hernia repair on 01/15/23 by Rachele Bennett Gen Surg I spoke with Dr Aaron 02/06/23 - goal is to treat this abscess conservatively with IV abx and supportive care Hopefully repeat surgery can be avoided as he is high risk for additional complications will consult ID tomorrow for abx recs CRP markedly elevated early in admission (31.9) repeat am (3) MRSA infection: Plan: of abdominal wall abscess see above contact precautions (4) Sepsis following procedure: Plan: intra-abdominal abscess 2nd MRSA with resulting severe sepsis resolving (5) Acute on chronic diastolic congestive heart failure: Plan: nice response to IV lasix yesterday will give another dose today re-eval tomorrow for need for additional doses IV fluids have been stopped last EF on echo was preserved (08/2022) (6) Acute metabolic encephalopathy: Plan: 2nd #1 IMPROVED supportive care avoid sedatives melatonin HS (7) Hypotension: Plan: 2nd to #1 resolved with fluids + stress dose steroids resumed metoprolol tartrate 12.5mg BID resume imdur albeit at 1/2 usual dose hold MARITZA (8) Hyponatremia: Plan: resolved BMP am for stability (9) Visual disturbance: Plan: present 2-3 weeks underwent full eye exam with dilation this past week and by report was wnl symptoms persist - no better, no worse MRI brain ordered await results etiology uncertain (10) Atrial fibrillation: Plan: remains in NSR cont amiodarone daily cont metoprolol eliquis was placed on hold in the event he needed surgical intervention of #2 looking like that will be avoided await MRI brain if MRI brain is stable can likely resume eliquis tomorrow (11) Hypertension: Plan: resume metoprolol & imdur hold MARITZA BPs stable (12) Rheumatoid arthritis: Plan: follows with Dr Waldron [place] [facility] [place]um hold immunotherapy while ill (13) Coronary artery disease: Plan: cont asa cont statin cont Ranexa cont metoprolol 12.5mg BID resume imdur hold MARITZA (14) Incarcerated intra-abdominal hernia: Plan: s/p ventral hernia repair 01/15/23 now complicated by intra-abdominal abscess see above care d/w gen surg, Dr Aaron, by phone 02/06/23 s/p placement of drain into the abscess by IR 02/06/23 (15) Rhabdomyolysis: Plan: mild CPK just shy of 1000 at peak IMPROVING cont to hold statin CPK am he reports several months of muscle weakness of arms/legs if CPK remains elevated -- myositis?? elevated AST likely from CPK elevation (16) Constipation: Plan: senna + miralax (17) Anxiety and depression: Plan: is on cymbalta 60mg daily remains very depressed add SSRI increase cymbalta? consider psych consult (18) DVT prophylaxis: Plan: lovenox daily Plan update family on 02/10 Admission and Anticipated Discharge Date Admission Date: February 05, 2023 Subjective tele overnight wnl patient very tired doesn't "feel as good" as over the weekend but no fevers or chills breathing is better ; denies wheezing today only minor abdominal pain no vomiting still with the visual disturbance - no better, no worse asks how much longer he will be in the hospital Review of Systems Review of Systems: gen - no fevers or chills pulmonary - cough improved; wheezing resolved CV - no orthopnea psych - depressed GI - mild abd pain but no N/V ; +constipation Physical Exam Physical Exam: gen - NAD, lying comfortably in bed, looks depressed but his color & overall physical appearance look better than a few days ago mouth - MMM neck - no JVD heart - RRR, s1 s2, no murmur lungs - CTA b/l; wheezing resolved abd - midline abdominal wall incision clean and healed; former ELYSSA site is closed; drain in place with dressings; drain has copious purulent fluid in collection device; BS+; generalized tenderness resolved although modestly tender on right abdomen; there had been mild pink erythema (Faint) on the abdominal wall - this is resolved ext - no edema, pulses 2+ b/l skin - stasis changes b/l legs; skin ulceration R antonio clean; skin tear R arm healing nicely psych - a/o x 3, flat affect Results & Data Results & Data Vital Signs (Past 12 Hours) Vital Signs Temp Pulse Pulse Resp BP BP Pulse Ox 02/09/23 20:43 02/09/23 19:50 37.1 C 69 18 173/93 H 94 02/09/23 16:00 02/09/23 15:45 36.9 C 56 L 18 128/76 92 02/09/23 11:34 36.7 C 55 L 18 114/65 93 02/09/23 10:55 59 L 02/09/23 09:12 O2 Del Method 02/09/23 20:43 Room Air 02/09/23 19:50 Room Air 02/09/23 16:00 Room Air 02/09/23 15:45 Room Air 02/09/23 11:34 Room Air 02/09/23 10:55 02/09/23 09:12 Room Air Laboratory Results Laboratory Results - last 24 hr 02/09/23 02/09/23 05:21 05:21 WBC 10.87 H RBC 3.24 L Hgb 9.1 L Hct 27.9 L MCV 86.1 MCH 28.1 MCHC 32.6 RDW Std Deviation 57.9 H RDW Coeff of Sammie 18.3 H Plt Count 302 MPV 9.7 Sodium 137 Potassium 3.9 Chloride 105 Carbon Dioxide 26 Anion Gap 6 BUN 24 H Creatinine 1.02 Est Cr Clr Drug Dosing 74.0 Est GFR ( Amer) 80.6 Est GFR (Non-Af Amer) 69.6 BUN/Creatinine Ratio 23.5 H Glucose 107 H Calcium 8.5 L Total Creatine Kinase 583 H Diagnostic Findings Microbiology 02/09/23 Unknown Sputum, Expectorated Gram Stain - Final 02/06/23 11:10 Abdomen Gram Stain - Final 02/06/23 11:10 Abdomen Aerobic and Anaerobic Culture - Preliminary Staph aureus MRSA 02/05/23 22:50 Abdomen, Left Lower Quadrant Gram Stain - Final 02/05/23 22:50 Abdomen, Left Lower Quadrant Aerobic and Anaerobic Culture - Preliminary Staph aureus MRSA 02/05/23 20:30 Blood Aerobic Blood Culture - Preliminary No growth in Aerobic bottle after 48 hours. 02/05/23 20:30 Blood Anaerobic Blood Culture - Preliminary No growth in Anaerobic bottle after 48 hours. 02/05/23 20:20 Blood Aerobic Blood Culture - Preliminary No growth in Aerobic bottle after 48 hours. 02/05/23 20:20 Blood Anaerobic Blood Culture - Preliminary No growth in Anaerobic bottle after 48 hours. PG Care Time/CCT Total # of Minutes Spent Total Time Spent with Patient: Total time spent is greater than 50% in coordination of care (as documented) at patient's floor/unit and/or counseling patient: Coding Level of Care Code 11209 SUB INP/OBS CARE 3/50MIN Diagnoses Severe sepsis A41.9; R65.20 Abdominal wall abscess L02.211 MRSA infection A49.02 Sepsis following procedure T81.44XA Acute on chronic diastolic congestive heart failure I50.33 Acute metabolic encephalopathy G93.41 Hypotension I95.9 Hyponatremia E87.1 Visual disturbance H53.9 Atrial fibrillation I48.91 Hypertension I10 Rheumatoid arthritis M06.9 Coronary artery disease I25.10 Incarcerated intra-abdominal hernia K46.0 Rhabdomyolysis M62.82 Constipation K59.00 Anxiety and depression F41.9; F32.A DVT prophylaxis Z29.9
[2023-02-09] MEDS: TRAVOPROST Z 0.004% OPH SOLN 2.5 ML BTL OPB SCH (22:20)
[2023-02-09] MEDS: MELATONIN 3 MG TAB PO SCH (22:20)
--- NOTE | 2023-02-10 01:11 | Magnetic Resonance Report ---
Exam(s): MRI HEAD Without Contrast EXAM: MR Head Without Intravenous Contrast CLINICAL HISTORY: Reason for exam: visual disturbance x 1-2 weeks, occipital CVA?. TECHNIQUE: Magnetic resonance images of the head/brain without intravenous contrast in multiple planes. COMPARISON: Comparison made to prior head CT from February 05, 2023. FINDINGS: Brain: Mild nonspecific white matter changes. The flow voids at the base of the brain are intact. No mass. No hemorrhage. No acute infarct. Ventricles: Advanced ventriculomegaly. Bones/joints: Unremarkable. Sinuses: Unremarkable as visualized. No acute sinusitis. Mastoid air cells: Unremarkable as visualized. No mastoid effusion. Orbits: Bilateral lens replacements. 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 There is mild dilatation of the subarachnoid spaces of the optic nerve root sheaths. IMPRESSION: No evidence of acute intracranial pathology. Mild nonspecific white matter changes. 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 Electronically signed by: Trish Alves MD 02/10/23 01:10 AM
[2023-02-10] MEDS: VANCOMYCIN HCL 1,250 MG in SODIUM CHLORIDE 0.9% 250 ML IV SCH ×2 (02:28→13:13)
[2023-02-10 07:10] LABS: Hematocrit (blood only) 28.1 % (42.0-52.0); Hemoglobin 9.2 g/dl (14.0-18.0); Mean Corpuscular Hemoglobin 27.8 pg (25.0-34.0); Mean Corpuscular Hgb Conc 32.7 g/dL (32.0-36.0); Mean Corpuscular Volume 84.9 fL (80.0-100.0); Mean Platelet Volume 9.9 fL (9.4-12.4); Nucleated RBC # (auto) 0.04 K/uL (0.00-0.12); Nucleated RBC % (auto) 0.4 %; Platelet Count 311 K/uL (130-400); RDW Coefficient of Variation 18.7 % (11.5-14.5); RDW Standard Deviation 57.8 fL (36.4-46.3); Red Blood Count 3.31 M/uL (4.70-6.10); White Blood Count 10.21 K/ul (4.8-10.8)
[2023-02-10 07:25] LABS: BUN Creatinine Ratio 23.6 (10-20); C Reactive Protein 6.22 mg/dl (0-0.5); Calcium 8.4 mg/dl (8.6-10.3); Creatinine Clr Calc Pharmacy 71.7 ml/min; Est GFR (Non-African American) 66.4 ml/min; Potassium 3.8 mmol/L (3.5-5.1)
[2023-02-10 07:34] LABS: Thyroid Stimulating Hormone 1.258 uIu/ml (0.300-4.500)
[2023-02-10 07:36] LABS: T4 Free Thyroxine 1.37 ng/dl (0.61-1.60)
[2023-02-10] MEDS: ACETAMINOPHEN 500 MG TAB PO SCH ×3 (09:19→21:16)
[2023-02-10] MEDS: predniSONE 10 MG TABLET PO SCH (09:20)
[2023-02-10] MEDS: CEROVITE ADV FORMULA TAB PO SCH (09:20)
[2023-02-10] MEDS: THIAMINE HCL 100 MG TAB PO SCH (09:20)
[2023-02-10] MEDS: CYANOCOBALAMIN (B-12) 500 MCG TABLET PO SCH (09:20)
[2023-02-10] MEDS: FOLIC ACID 1 MG TAB PO SCH (09:21)
[2023-02-10] MEDS: guaiFENesin 600 MG TABCR PO SCH ×2 (09:21→21:16)
[2023-02-10] MEDS: RANOLAZINE 500 MG ER TAB PO SCH ×2 (09:21→21:13)
[2023-02-10] MEDS: ADVANCED PROBIOTIC 1250 MG CAPSULE PO PRN (09:21)
[2023-02-10] MEDS: AMIODARONE 200 MG TAB PO SCH (09:22)
[2023-02-10] MEDS: GABAPENTIN 300 MG CAP PO SCH ×3 (09:22→21:15)
[2023-02-10] MEDS: METOPROLOL TARTRATE 25 MG TAB PO SCH ×2 (09:22→21:14)
[2023-02-10] MEDS: SENNA 8.6 MG TAB PO SCH ×2 (09:22→21:15)
[2023-02-10] MEDS: ISOSORBIDE MONO EXTENDED REL 30 MG TABCR PO SCH (09:23)
[2023-02-10] MEDS: DULoxetine HCL 60 MG CAP PO SCH (09:23)
[2023-02-10] MEDS: POLYETHYLENE (MIRALAX) 17 GM PACK PO SCH (09:24)
[2023-02-10] MEDS: BACITRACIN OINT 14 GM TUBE EXT SCH (09:24)
[2023-02-10] MEDS: BENZONATATE 100 MG CAPSULE PO SCH ×3 (09:27→21:17)
[2023-02-10] MEDS: ENOXAPARIN INJ 40 MG/0.4 ML SYR SQ SCH (09:56)
--- NOTE | 2023-02-10 11:08 | Pharmacy Report ---
Pharmacy PK ABX Note - Date of Service February 10, 2023 - Assessment and Plan Assessment 02/10: * Random Vanc level obtained today 4 hrs before the dose = 17.7 mcg/ml. This is equivalent to AUC/KARL of 522 mg/L.hr * Laboratory Tests 02/10/23 10:04 Random Vancomycin 17.7 * Today is day 6 of Vancomycin therapy * Renal function remains stable. 02/08: Preliminary Abdominal cultures growing MRSA, blood cultures negative at 48 hours. Possible de-escalation with finalized culture? SCr has been downtrending to baseline. Random level this AM 10.3, suggests current dosing achieving slightly below target AUC/KARL. Will increase dose. 02/06 77 year old M receiving vancomycin for treatment of surgical site infection. Patient had a hernia surgery on 01/15/23. Drain from hernia surgery recently removed. Pertinent microbiologic data includes: blood culture currently growing. Abdominal culture pending but Gram stain show Gram positive cocci. Day # 1 of antimicrobial therapy. Plan 02/10: * Patient is currently on Vancomycin 1250 mg IV Q12h. * AUC/KARL based on random level obtained today is at goal. Therefore will continue same Vancomycin regimen. * Will re-check a random level in 3 to 5 days if renal function remains stable. Will continue to monitor. 02/08: * Adjust dose to 1250 mg q12H * Regimen is predicted to achieve target AUC/KARL * Random level in 1-2 days or with renal function changes. 02/06 Vancomycin * Loading dose: 2000 mg IV x 1 * Maintenance dose: 750 mg IV every 12 hours * Regimen is predicted to achieve target AUC/KARL of 400-600 mg/L.hr * Trough level ordered for: 02/08/23 Pharmacy will continue to follow and will adjust dose/frequency as necessary. Thank you. Pharmacy has transitioned to AUC monitoring for vancomycin. AUC/KARL is the preferred PK/PD target and is associated with decreased risk of nephrotoxicity compared to traditional trough targets.
--- NOTE | 2023-02-10 12:42 | Infectious Disease Consult ---
Date of Consultation February 10, 2023 Assessment & Plan (1) MRSA infection: (2) Sepsis following procedure: Plan 77 yo male with pmh HFrEF, atrial fibrillation, anxiety/ depression, GERD, hypertension, RA, recent incarcerated ventral hernia repair on 01/15/23 presents with abdominal swelling, pain, fatigue for 5 d post surgical drain removal . He endorsed fevers, chills , malaise. In the Ed he is febrile with a T 38, Hr 94. Labs noted for a wbc 6.87, bun 34, cr 1.42, lactate 2.2, procal 0.72. cpk 994 that trended to 272. CRp 31.92 trended down to 6.22. RVP negative.CTAB showed a complex hypodense collection with scattered nondependent gas internally measuring 4.3 x 13.7 x 13.1 cm. The internal nondependent gas is concerning for developing infection within the collection He underwent abscess drainage with drain placement by IR on 02/06 . Approximately 50 mL of purulent fluid was aspirated and cx grew MRSA He is currently on IV vancomycin. ID consulted for MRSA post-op abdominal abscess Micro BC 02/05 NGTD WC 02/05 MRSA (S vanco Kermit 2, Dapto, tet, trim/sulfa) WC 02/06 MRSA S vanco Kermit 2, Dapto, tet, trim/sulfa) Sputum cx NGTD gram stain Few Epithelial Cells Moderate Polys,Few Gram Positive Cocci,Few Gram Negative Bacilli Abx Vanco 02/05-ongoing zosyn 02/05-02/07 #MRSA abdominal abscess w/o bacteremia #S/p incarcerated ventral hernia repair on 01/15/23 # H/o knee and hip replacement # Rheumatoid arthritis on Rinvoq He developed a MRSA abscess sp hernia repair with mesh placement done approximately 3 wks ago. Per review of the imaging , the abscess does not appear to involve the mesh as the abscess is in the subcut tissue. He has no associated MRSA bacteremia. The Vanco Kermit is 2, but still sensitive. CPK is down trending. Recommendations Continue IV Vancomycin per pharm protocol. IF no MRSA in sputum cx and cpk continues to decrease, will change to Daptomycin 6 mg IV q 24 hours as vanco KERMIT is 2 FU BC from 02/05 FU sputum cx 02/09 Duration of treatment will depend on resolution of abscess. Thank you for this consultation. ID will continue to follow. Gavi Rich MD, MPH [facility] Call [phone] with questions Consultation Information Consultation was provided via telemedicine using two-way real-time interactive telecommunication between the patient and the telemedicine provider. For the duration of the visit, the provider was performing the assessment from a different facility than the patient. This includesuse of bluetooth stethoscope forauscultationperformed by the telepresenter that the telemedicine provider can hear if described in the physical exam. Gambreler contact information: Please call [facility] [phone]. (Phone Number For Physician Use Only) After establishing a telemedicine visit, patient was: Patient was verified with two unique identifiers Time Spent with Patient: Initial => 75 min History of Present Illness Reason for Consultation: MRSA post-op abdominal abscess Requesting Physician: Shaheen Vance MD Attending Physician: Shaheen Vance MD History of Present Illness 77 yo male with pmh HFrEF, atrial fibrillation, anxiety/ depression, GERD, hypertension, RA, recent incarcerated ventral hernia repair on 01/15/23 presents with abdominal swelling, pain, fatigue for 5 d post surgical drain removal . He endorsed fevers, chills , malaise. In the Ed he is febrile with a T 38, Hr 94. Labs noted for a wbc 6.87, bun 34, cr 1.42, lactate 2.2, procal 0.72. cpk 994 that trended to 272. CRp 31.92 trended down to 6.22. RVP negative. CTAB showed a complex hypodense collection with scattered nondependent gas internally measuring 4.3 x 13.7 x 13.1 cm. The internal nondependent gas is concerning for developing infection within the collection He underwent abscess drainage with drain placement by IR on 02/06 . Approximately 50 mL of purulent fluid was aspirated and cx grew MRSA He is currently on IV vancomycin. ID consulted for MRSA post-op abdominal abscess Allergies Allergy/AdvReac Type Severity Reaction Status Date / Time cat dander Allergy Severe Swelling Verified 01/22/23 10:38 of Lip/Tongue/Throat Home Medications Medication Instructions Recorded Confirmed Type sennosides 8.6 mg capsule (senna) 8.6 mg PO AMHS 06/19/22 02/05/23 History nitroglycerin 0.4 mg sublingual 0.4 mg sublingual Q5M PRN chest 07/23/22 02/05/23 Rx tablet pain #30 tabs amiodarone 200 mg tablet 200 mg PO QAM 08/07/22 02/05/23 History ascorbic acid (vitamin C) 500 mg 1,000 mg PO QAM 08/07/22 02/05/23 History capsule aspirin 81 mg tablet,delayed 81 mg PO QAM 08/07/22 02/05/23 History release (Adult Low Dose Aspirin) coenzyme Q10 100 mg capsule 100 mg PO QAM 08/07/22 02/05/23 History isosorbide mononitrate 60 mg 60 mg PO QAM 08/07/22 02/05/23 History tablet,extended release 24 hr lactobacillus combination no.9 4 6,000 mmu cells PO QAM PRN use 08/07/22 02/05/23 History billion cell capsule (Adult 50 with antibiotics Plus Probiotic) lisinopril 10 mg tablet 10 mg PO QAM 08/07/22 02/05/23 History melatonin 5 mg capsule 5 mg PO HS 08/07/22 02/05/23 History chyvmmfb-vtgqjvp-rrxv-lutein tablet 1 tab PO QAM 08/07/22 02/05/23 History cholecalciferol (vitamin D3) 250 250 mcg PO DAILY 90 days #90 tabs 09/19/22 02/05/23 Rx mcg (10,000 unit) tablet metoprolol tartrate 25 mg tablet 12.5 mg PO BID #60 tabs 10/03/22 02/05/23 Rx upadacitinib 15 mg tablet,extended 15 mg PO QAM 10/15/22 02/05/23 History release 24 hr (Rinvoq) acetaminophen 500 mg capsule 1,000 mg PO TID 11/11/22 02/05/23 History omega 6-hhv-rjz-fish oil 1,000 mg 1 cap PO QAM #30 caps 12/15/22 02/05/23 Rx (120 mg-180 mg) capsule (Fish Oil) furosemide 20 mg tablet 20 mg PO DAILY PRN edema or weight 12/25/22 02/05/23 Rx gain #30 tabs pravastatin 40 mg tablet 40 mg PO HS 01/13/23 02/05/23 History ranolazine 500 mg tablet,extended 500 mg PO BID 01/13/23 02/05/23 History release,12 hr travoprost 0.004 % eye drops 1 drp OPB QPM 01/13/23 02/05/23 History (Travatan Z) oxycodone-acetaminophen 5 mg-325 1 tab PO Q6H PRN pain #12 tabs 01/16/23 02/05/23 Rx mg tablet (Percocet) cyanocobalamin (vitamin B-12) 500 1,000 mcg PO QAM #30 tabs 01/18/23 02/05/23 Rx mcg tablet folic acid 1 mg tablet 1 mg PO QAM #30 tabs 01/18/23 02/05/23 Rx hydroxyzine HCl 10 mg tablet 10 mg PO HS PRN anxiety or 01/18/23 02/05/23 Rx insomnia #14 tabs gabapentin 300 mg capsule 300 mg PO TID #90 caps 01/27/23 02/05/23 Rx apixaban 2.5 mg tablet (Eliquis) 2.5 mg PO BID 02/05/23 02/05/23 History duloxetine 60 mg capsule,delayed 60 mg PO QAM 02/05/23 02/05/23 History release esomeprazole magnesium 40 mg 40 mg PO HS 02/05/23 02/05/23 History capsule,delayed release (Nexium) potassium chloride 10 mEq 20 meq PO DAILY PRN when taking 02/05/23 02/05/23 History tablet,extended release(part/cryst) lasix thiamine HCl (vitamin B1) 100 mg 100 mg PO QAM 02/05/23 02/05/23 History tablet Patient History Medical History (Updated 02/10/23 @ 09:05 by Shaheen Vance MD) Abdominal wall abscess Anxiety and depression Atherogenic dyslipidemia Atrial fibrillation episode occurred in 03/2022, taken to [facility] in [place], admitted to ICU for 1-2 weeks (was not intubated, but wasn't "awake either"), then to cardiac unit, then to rehab at [facility] in [place]; f/u dr. guerra in [place]>will be starting to see a ring sorter at [facility] 2nd week of 08/2022 Benign essential hypertension Coronary artery disease GERD (gastroesophageal reflux disease) Heart failure with preserved ejection fraction HFrEF (heart failure with reduced ejection fraction) EF 40% Mar 2022, improved 55-60% August 2022 Hx of staphylococcal infection 03/2022, w/"bacterial infection" at the same, in the rt. knee, occurrred during atrial fibrillation episode. "when he woke up, he couldn't walk." Hypomagnesemia Incisional hernia Lumbar radiculopathy Lumbar stenosis Myocardial Infarction "a silent one, 2019" Pneumonia Respiratory failure with hypoxia Rheumatoid arthritis Sepsis Septicemia due to Streptococcus pneumoniae Sleep apnea no device Surgical History History of bowel resection for diverticulitis; w/colostomy placement for 3-4 months History of cardiac cath ~3 years ago, SOB and "felt like throat was constricting", had "silent heart attack", x2 stents, done in [place] History of colostomy reversal History of esophagogastroduodenoscopy (EGD) History of heart artery stent ~3 years ago, x2 stents, done in [place]; f/u dr guerra, [place]>will be seeing new cardio at [place] 2nd week of August 2022. Hx of Achilles tendon repair rt. Hx of bilateral cataract extraction Hx of colonoscopy Last Colonoscopy 08/14/22, repeat 3 years in 2025 Hx of hernia repair near former colostomy site Hx of knee surgery rt. patellar tendon repair Hx of rotator cuff surgery bilateral Hx of total hip arthroplasty rt. Hx of total knee replacement lt. Family History Grandmother (Maternal) Diabetes Daughter Diabetes Father Suicide Hypertension Denies family history of Ovarian cancer Prostate cancer Myocardial infarction Breast cancer Lung cancer Colorectal cancer Stroke Social History Smoking Status: Never smoker Second Hand Exposure: No; Do You Dip or Chew Tobacco: No; Hx Alcohol Use: Yes Alcohol type: wine Alcohol Intake Frequency: 4 or More x per/Week Hx Substance Use: No Preferred Language: Salvadorean Communication Ability: Effective Visual Impairment: No Limitations Hearing Ability: Normal Document Management Consultant Required: No Beliefs That Will Affect Care: None marital status: Single Current Living Situation: Prison Current Living Situation Comment: Independent living current occupational status: retired How many Children do You have: 2 Feels Safe at Home: Yes Childhood Exposure to Second-Hand Smoke: Yes caffeine: Yes Dental Care, Regularly: Yes Physical Activity Frequency: Does not Exercise Seatbelt Use: always Sunscreen Use: Yes Assistive Devices: Walker and Wheelchair Review of System A 10 point ROS obtained. Pertinent positives as per HPI. Physical Exam Constitutional: nad, siiting in chair Eyes: Anicteric sclera Neck: Supple Respiratory: No increased work of breathing Gastrointestinal (Abdomen): soft, distended,LLQ drain with thick appearing bloody fluid. + TTP, midline incision healing well Musculoskeletal: Moves all extremities Skin: RLE skin abrasion- not infected appearing. Neurologic: AA0 times 3 Psychiatric: cooperative, appropriate Results & Data Vital Signs (Past 12 Hours) Vital Signs Temp Pulse Pulse Resp BP Pulse Ox O2 Del Method 02/10/23 08:00 52 L 02/10/23 10:54 36.8 C 56 L 18 148/79 H 93 Room Air 02/10/23 07:45 36.6 C 53 L 20 117/60 96 Room Air Laboratory Results Laboratory Results - last 48 hr 02/08/23 02/09/23 02/09/23 17:53 05:21 05:21 WBC 10.87 H RBC 3.24 L Hgb 9.1 L Hct 27.9 L MCV 86.1 MCH 28.1 MCHC 32.6 RDW Std Deviation 57.9 H RDW Coeff of Sammie 18.3 H Plt Count 302 MPV 9.7 Absolute Nucleated RBC Nucleated RBC % (auto) Sodium 137 Potassium 3.9 Chloride 105 Carbon Dioxide 26 Anion Gap 6 BUN 24 H Creatinine 1.02 Est Cr Clr Drug Dosing 74.0 Est GFR ( Amer) 80.6 Est GFR (Non-Af Amer) 69.6 BUN/Creatinine Ratio 23.5 H Glucose 107 H Calcium 8.5 L AST Total Creatine Kinase 583 H C-Reactive Protein TSH Free T4 Random Vancomycin Adenovirus (PCR) Not Detected B. pertussis DNA (PCR) Not Detected B.parapertussis DNA PCR Not Detected C. pneumoniae DNA (PCR) Not Detected Coronavirus OC43 (PCR) Not Detected Coronavirus HKU1 (PCR) Not Detected Coronavirus 229E (PCR) Not Detected SARS-CoV-2 (PCR) Not Detected Coronavirus NL63 (PCR) Not Detected Human Metapneumovir PCR Not Detected Influenza Type A (PCR) Not Detected Influenza Type B (PCR) Not Detected M. pneumoniae (PCR) Not Detected Parainfluenza 1 (PCR) Not Detected Parainfluenza 2 (PCR) Not Detected Parainfluenza 3 (PCR) Not Detected Parainfluenza 4 (PCR) Not Detected RSV (PCR) Not Detected Entero/Rhino (PCR) Not Detected 02/10/23 02/10/23 02/10/23 06:42 06:42 06:42 WBC 10.21 RBC 3.31 L Hgb 9.2 L Hct 28.1 L MCV 84.9 MCH 27.8 MCHC 32.7 RDW Std Deviation 57.8 H RDW Coeff of Sammie 18.7 H Plt Count 311 MPV 9.9 Absolute Nucleated RBC 0.04 Nucleated RBC % (auto) 0.4 Sodium 139 Potassium 3.8 Chloride 105 Carbon Dioxide 29 Anion Gap 5 BUN 25 H Creatinine 1.06 Est Cr Clr Drug Dosing 71.7 Est GFR ( Amer) 77.0 Est GFR (Non-Af Amer) 66.4 BUN/Creatinine Ratio 23.6 H Glucose 100 H Calcium 8.4 L AST 48 H Total Creatine Kinase 272 H C-Reactive Protein 6.22 H TSH 1.258 Free T4 1.37 Random Vancomycin Adenovirus (PCR) B. pertussis DNA (PCR) B.parapertussis DNA PCR C. pneumoniae DNA (PCR) Coronavirus OC43 (PCR) Coronavirus HKU1 (PCR) Coronavirus 229E (PCR) SARS-CoV-2 (PCR) Coronavirus NL63 (PCR) Human Metapneumovir PCR Influenza Type A (PCR) Influenza Type B (PCR) M. pneumoniae (PCR) Parainfluenza 1 (PCR) Parainfluenza 2 (PCR) Parainfluenza 3 (PCR) Parainfluenza 4 (PCR) RSV (PCR) Entero/Rhino (PCR) 02/10/23 10:04 WBC RBC Hgb Hct MCV MCH MCHC RDW Std Deviation RDW Coeff of Sammie Plt Count MPV Absolute Nucleated RBC Nucleated RBC % (auto) Sodium Potassium Chloride Carbon Dioxide Anion Gap BUN Creatinine Est Cr Clr Drug Dosing Est GFR ( Amer) Est GFR (Non-Af Amer) BUN/Creatinine Ratio Glucose Calcium AST Total Creatine Kinase C-Reactive Protein TSH Free T4 Random Vancomycin 17.7 Adenovirus (PCR) B. pertussis DNA (PCR) B.parapertussis DNA PCR C. pneumoniae DNA (PCR) Coronavirus OC43 (PCR) Coronavirus HKU1 (PCR) Coronavirus 229E (PCR) SARS-CoV-2 (PCR) Coronavirus NL63 (PCR) Human Metapneumovir PCR Influenza Type A (PCR) Influenza Type B (PCR) M. pneumoniae (PCR) Parainfluenza 1 (PCR) Parainfluenza 2 (PCR) Parainfluenza 3 (PCR) Parainfluenza 4 (PCR) RSV (PCR) Entero/Rhino (PCR) Diagnostic Findings Microbiology 02/05/23 22:50 Abdomen, Left Lower Quadrant Gram Stain - Final 02/05/23 22:50 Abdomen, Left Lower Quadrant Aerobic and Anaerobic Culture - Final Staph aureus MRSA 02/09/23 Unknown Sputum, Expectorated Gram Stain - Final 02/09/23 Unknown Sputum, Expectorated Sputum Culture - Preliminary Heavy normal teri present, Final report to follow. 02/06/23 11:10 Abdomen Gram Stain - Final 02/06/23 11:10 Abdomen Aerobic and Anaerobic Culture - Preliminary Staph aureus MRSA 02/05/23 20:30 Blood Aerobic Blood Culture - Preliminary No growth in Aerobic bottle after 48 hours. 02/05/23 20:30 Blood Anaerobic Blood Culture - Preliminary No growth in Anaerobic bottle after 48 hours. 02/05/23 20:20 Blood Aerobic Blood Culture - Preliminary No growth in Aerobic bottle after 48 hours. 02/05/23 20:20 Blood Anaerobic Blood Culture - Preliminary No growth in Anaerobic bottle after 48 hours. CTAB 02/05/23 IMPRESSION: When compared to the previous examination, there has been interval ventral hernia repair with suspected mesh placement. Superficial to the presumed mesh in the subcutaneous soft tissues, there is a complex hypodense collection with scattered nondependent gas internally, measuring 4.3 x 13.7 x 13.1 cm. The internal nondependent gas is concerning for developing infection within the collection. Please correlate with laboratory and clinical findings. Chest X-Ray 02/08/23 11:05 TWO VIEW CHEST CLINICAL HISTORY: Cough and wheezing. FINDINGS: AP upright and lateral chest radiographs are compared to study dated 02/05/2023. The heart is enlarged. The pulmonary vasculature is noncongested. A coronary artery stent is observed. There are calcified mediastinal and hilar lymph nodes. There are scattered calcified granulomas. 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 Scarring/atelectasis is noted at the lung bases. Trace pleural effusions are noted on the lateral projection. There is no airspace consolidation typical for pneumonia. There is no pneumothorax. The skeletal structures are osteopenic. The bony thorax appears intact. 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 Spondylosis is noted in the thoracic spine. IMPRESSION: 1. Cardiomegaly without radiographic evidence of congestive failure. 2. Trace pleural effusion. ACT 112: Negative or not required by law. Electronically signed by: Maxime Faust M.D. 02/08/2023 12:14 PM Brain MRI 02/09/23 09:00 Exam(s): MRI HEAD Without Contrast EXAM: MR Head Without Intravenous Contrast CLINICAL HISTORY: Reason for exam: visual disturbance x 1-2 weeks, occipital CVA?. TECHNIQUE: Magnetic resonance images of the head/brain without intravenous contrast in multiple planes. COMPARISON: Comparison made to prior head CT from February 05, 2023. FINDINGS: Brain: Mild nonspecific white matter changes. The flow voids at the base of the brain are intact. No mass. No hemorrhage. No acute infarct. Ventricles: Advanced ventriculomegaly. Bones/joints: Unremarkable. Sinuses: Unremarkable as visualized. No acute sinusitis. Mastoid air cells: Unremarkable as visualized. No mastoid effusion. Orbits: Bilateral lens replacements. 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 There is mild dilatation of the subarachnoid spaces of the optic nerve root sheaths. IMPRESSION: No evidence of acute intracranial pathology. Mild nonspecific white matter changes. 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 Electronically signed by: Trish Alves MD 02/10/23 01:10 AM Medications Administered Home Medications Medication Instructions Recorded Confirmed Last Taken sennosides 8.6 mg capsule (senna) 8.6 mg PO AMHS 06/19/22 02/05/23 02/05/23 nitroglycerin 0.4 mg sublingual 0.4 mg sublingual Q5M PRN chest 07/23/22 02/05/23 Unknown tablet pain #30 tabs amiodarone 200 mg tablet 200 mg PO QAM 08/07/22 02/05/23 02/05/23 ascorbic acid (vitamin C) 500 mg 1,000 mg PO QAM 08/07/22 02/05/23 02/05/23 capsule aspirin 81 mg tablet,delayed 81 mg PO QAM 08/07/22 02/05/23 02/05/23 release (Adult Low Dose Aspirin) coenzyme Q10 100 mg capsule 100 mg PO QAM 08/07/22 02/05/23 02/05/23 isosorbide mononitrate 60 mg 60 mg PO QAM 08/07/22 02/05/23 02/05/23 tablet,extended release 24 hr lactobacillus combination no.9 4 6,000 mmu cells PO QAM PRN use 08/07/22 02/05/23 08/13/22 billion cell capsule (Adult 50 with antibiotics Plus Probiotic) lisinopril 10 mg tablet 10 mg PO QAM 08/07/22 02/05/23 02/05/23 melatonin 5 mg capsule 5 mg PO HS 08/07/22 02/05/23 02/05/23 svpiizkm-oueqonx-ovra-lutein tablet 1 tab PO QAM 08/07/22 02/05/23 02/05/23 cholecalciferol (vitamin D3) 250 250 mcg PO DAILY 90 days #90 tabs 09/19/22 02/05/23 02/05/23 mcg (10,000 unit) tablet metoprolol tartrate 25 mg tablet 12.5 mg PO BID #60 tabs 10/03/22 02/05/23 02/05/23 upadacitinib 15 mg tablet,extended 15 mg PO QAM 10/15/22 02/05/23 02/05/23 release 24 hr (Rinvoq) acetaminophen 500 mg capsule 1,000 mg PO TID 11/11/22 02/05/23 02/05/23 omega 0-ffp-bbk-fish oil 1,000 mg 1 cap PO QAM #30 caps 12/15/22 02/05/23 02/05/23 (120 mg-180 mg) capsule (Fish Oil) furosemide 20 mg tablet 20 mg PO DAILY PRN edema or weight 12/25/22 02/05/23 Unknown gain #30 tabs pravastatin 40 mg tablet 40 mg PO HS 01/13/23 02/05/23 02/04/23 ranolazine 500 mg tablet,extended 500 mg PO BID 01/13/23 02/05/23 02/05/23 release,12 hr travoprost 0.004 % eye drops 1 drp OPB QPM 01/13/23 02/05/23 02/05/23 (Travatan Z) oxycodone-acetaminophen 5 mg-325 1 tab PO Q6H PRN pain #12 tabs 01/16/23 02/05/23 Unknown mg tablet (Percocet) cyanocobalamin (vitamin B-12) 500 1,000 mcg PO QAM #30 tabs 01/18/23 02/05/23 02/05/23 mcg tablet folic acid 1 mg tablet 1 mg PO QAM #30 tabs 01/18/23 02/05/23 02/05/23 hydroxyzine HCl 10 mg tablet 10 mg PO HS PRN anxiety or 01/18/23 02/05/23 Unknown insomnia #14 tabs gabapentin 300 mg capsule 300 mg PO TID #90 caps 01/27/23 02/05/23 02/05/23 apixaban 2.5 mg tablet (Eliquis) 2.5 mg PO BID 02/05/23 02/05/23 02/05/23 duloxetine 60 mg capsule,delayed 60 mg PO QAM 02/05/23 02/05/23 02/05/23 release esomeprazole magnesium 40 mg 40 mg PO HS 02/05/23 02/05/23 02/04/23 capsule,delayed release (Nexium) potassium chloride 10 mEq 20 meq PO DAILY PRN when taking 02/05/23 02/05/23 Unknown tablet,extended release(part/cryst) lasix thiamine HCl (vitamin B1) 100 mg 100 mg PO QAM 02/05/23 02/05/23 02/05/23 tablet Active Medications Generic Name Dose Route Start Last Admin Trade Name Freq PRN Reason Stop Dose Admin Acetaminophen 1,000 mg 02/06/23 09:00 02/10/23 09:19 Acetaminophen 500 Mg Tab PO 03/08/23 08:59 1,000 mg TID ELDER Administration Amiodarone HCl 200 mg 02/06/23 09:00 02/10/23 09:22 Amiodarone 200 Mg Tab PO 03/08/23 08:59 200 mg QAM ELDER Administration Bacitracin 1 appln 02/09/23 09:00 09/05/23 09:24 Bacitracin Oint 14 Gm Tube EXT 03/11/23 08:59 1 appln DAILY ELDER Administration Benzonatate 100 mg 02/09/23 21:00 02/10/23 09:27 Benzonatate 100 Mg Capsule PO 03/11/23 20:59 100 mg TID ELDER Administration Cyanocobalamin 1,000 mcg 02/06/23 09:00 02/10/23 09:20 Cyanocobalamin (B-12) 500 Mcg Tablet PO 03/08/23 08:59 1,000 mcg QAM ELDER Administration Duloxetine HCl 60 mg 02/06/23 09:00 02/10/23 09:23 Duloxetine Hcl 60 Mg Cap PO 03/08/23 08:59 60 mg QAM ELDER Administration Folic Acid 1 mg 02/06/23 09:00 02/10/23 09:21 Folic Acid 1 Mg Tab PO 03/08/23 08:59 1 mg QAM ELDER Administration Gabapentin 300 mg 02/06/23 09:00 02/10/23 09:22 Gabapentin 300 Mg Cap PO 03/08/23 08:59 300 mg TID ELDER Administration Guaifenesin 1,200 mg 02/09/23 09:00 02/10/23 09:21 Guaifenesin 600 Mg Tabcr PO 03/11/23 08:59 1,200 mg Q12 ELDER Administration Hydroxyzine HCl 10 mg 02/06/23 00:24 02/09/23 08:11 Hydroxyzine Hcl 10 Mg Tab PO 03/08/23 00:23 10 mg HS PRN Administration anxiety or insomnia Vancomycin HCl 1,250 mg/ 275 mls @ 200 mls/hr 02/08/23 14:00 02/10/23 04:06 Sodium Chloride IV 02/15/23 13:59 Infused Q12H ELDER Infusion Isosorbide Mononitrate 30 mg 02/09/23 09:00 02/10/23 09:23 Isosorbide [place] Extended Rel 30 Mg Tabcr PO 03/11/23 08:59 30 mg QAM ELDER Administration Lactobacillus Acidophilus 2 cap 02/06/23 00:46 02/10/23 09:21 Advanced Probiotic 1250 Mg Capsule PO 03/08/23 00:45 2 cap QAM PRN Administration use with antibiotics Melatonin 4.5 mg 02/06/23 21:00 02/09/23 22:20 Melatonin 3 Mg Tab PO 03/08/23 20:59 4.5 mg HS ELDER Administration Metoprolol Tartrate 12.5 mg 02/08/23 09:00 02/10/23 09:22 Metoprolol Tartrate 25 Mg Tab PO 03/10/23 08:59 12.5 mg BID ELDER Administration Morphine Sulfate 2 mg 02/06/23 17:58 02/08/23 20:13 Morphine Sulfate 2 Mg/Ml Carp IV 02/20/23 17:57 2 mg Q3H PRN Administration Severe Pain (Scale 7, 8, 9,10) Multivitamins/Minerals 1 tab 02/06/23 09:00 02/10/23 09:20 Cerovite Adv Formula Tab PO 03/08/23 08:59 1 tab QAM ELDER Administration Pantoprazole Sodium 40 mg 02/06/23 21:00 02/09/23 20:18 Pantoprazole 40 Mg Tab PO 03/08/23 20:59 40 mg HS ELDER Administration Polyethylene Glycol 17 gm 02/09/23 09:00 02/10/23 09:24 Polyethylene (Miralax) 17 Gm Pack PO 03/11/23 08:59 17 gm DAILY ELDER Administration Pravastatin Sodium 40 mg 02/06/23 21:00 02/06/23 22:15 Pravastatin Sod 40 Mg Tab PO 03/08/23 20:59 40 mg HS ELDER Administration Prednisone 10 mg 02/09/23 09:00 02/10/23 09:20 Prednisone 10 Mg Tablet PO 03/11/23 08:59 10 mg DAILY ELDER Administration Ranolazine 500 mg 02/06/23 09:00 02/10/23 09:21 Ranolazine 500 Mg Er Tab PO 03/08/23 08:59 500 mg BID ELDER Administration Sennosides 8.6 mg 02/06/23 09:00 02/10/23 09:22 Senna 8.6 Mg Tab PO 03/08/23 08:59 8.6 mg BID ELDER Administration Thiamine HCl 100 mg 02/06/23 09:00 02/10/23 09:20 Thiamine Hcl 100 Mg Tab PO 03/08/23 08:59 100 mg QAM ELDER Administration Tramadol HCl 50 mg 02/05/23 23:53 02/09/23 20:18 Tramadol Hcl 50 Mg Tablet PO 03/07/23 23:52 50 mg Q4H PRN Administration Moderate Pain (Scale 4, 5, 6) Travoprost 1 drops 02/06/23 21:00 02/09/23 22:20 Travoprost Z 0.004% Oph Soln 2.5 Ml Btl OPB 03/08/23 20:59 1 drops QPM ELDER Administration
--- NOTE | 2023-02-10 15:22 | Surgery Progress Note ---
Date of Service February 10, 2023 Assessment & Plan (1) Abdominal wall abscess: Plan: continue IV abx. awaiting ID recs for ? longer term IV antibiotics medical management by hospitalist team continuing to follow Admission and Anticipated Discharge Date Admission Date: February 05, 2023 Subjective feeling ok. minimal abdominal tenderness. drain in place. continues abx. no fevers/chills. no n/v. Physical Exam Physical Exam: AFVSS NAD A&Ox3 Abd: soft, Mild TTP; ND incision well healed; no erythema Drain in place; minimal output -serous Results & Data Vital Signs (Past 12 Hours) Vital Signs Temp Pulse Pulse Resp BP Pulse Ox O2 Del Method 02/10/23 15:13 36.9 C 56 L 18 136/76 94 Room Air 02/10/23 08:00 52 L 02/10/23 10:54 36.8 C 56 L 18 148/79 H 93 Room Air 02/10/23 07:45 36.6 C 53 L 20 117/60 96 Room Air Laboratory Results 02/10/23 02/10/23 02/10/23 Range/Units 10:04 06:42 06:42 WBC (4.8-10.8) K/ul RBC (4.70-6.10) M/uL Hgb (14.0-18.0) g/dl Hct (42.0-52.0) % MCV (80.0-100.0) fL MCH (25.0-34.0) pg MCHC (32.0-36.0) g/dL RDW Std Deviation (36.4-46.3) fL RDW Coeff of Sammie (11.5-14.5) % Plt Count (130-400) K/uL MPV (9.4-12.4) fL Absolute Nucleated RBC (0.00-0.12) K/uL Nucleated RBC % (auto) % Sodium 139 (136-145) mmol/L Potassium 3.8 (3.5-5.1) mmol/L Chloride 105 (98-107) mmol/L Carbon Dioxide 29 (21-32) mmol/L Anion Gap 5 (3-11) BUN 25 H (6-23) mg/dl Creatinine 1.06 (0.6-1.4) mg/dl Est Cr Clr Drug Dosing 71.7 ml/min Est GFR ( Amer) 77.0 ml/min Est GFR (Non-Af Amer) 66.4 ml/min BUN/Creatinine Ratio 23.6 H (10-20) Glucose 100 H (70-99(Fasting)) mg/dl Calcium 8.4 L (8.6-10.3) mg/dl AST 48 H (13-39) U/L Total Creatine Kinase 272 H (30-223) U/L C-Reactive Protein 6.22 H (0-0.5) mg/dl TSH 1.258 (0.300-4.500) uIu/ml Free T4 1.37 (0.61-1.60) ng/dl Random Vancomycin 17.7 (10-20) mcg/ml 02/10/23 Range/Units 06:42 WBC 10.21 (4.8-10.8) K/ul RBC 3.31 L (4.70-6.10) M/uL Hgb 9.2 L (14.0-18.0) g/dl Hct 28.1 L (42.0-52.0) % MCV 84.9 (80.0-100.0) fL MCH 27.8 (25.0-34.0) pg MCHC 32.7 (32.0-36.0) g/dL RDW Std Deviation 57.8 H (36.4-46.3) fL RDW Coeff of Sammie 18.7 H (11.5-14.5) % Plt Count 311 (130-400) K/uL MPV 9.9 (9.4-12.4) fL Absolute Nucleated RBC 0.04 (0.00-0.12) K/uL Nucleated RBC % (auto) 0.4 % Sodium (136-145) mmol/L Potassium (3.5-5.1) mmol/L Chloride (98-107) mmol/L Carbon Dioxide (21-32) mmol/L Anion Gap (3-11) BUN (6-23) mg/dl Creatinine (0.6-1.4) mg/dl Est Cr Clr Drug Dosing ml/min Est GFR ( Amer) ml/min Est GFR (Non-Af Amer) ml/min BUN/Creatinine Ratio (10-20) Glucose (70-99(Fasting)) mg/dl Calcium (8.6-10.3) mg/dl AST (13-39) U/L Total Creatine Kinase (30-223) U/L C-Reactive Protein (0-0.5) mg/dl TSH (0.300-4.500) uIu/ml Free T4 (0.61-1.60) ng/dl Random Vancomycin (10-20) mcg/ml
--- NOTE | 2023-02-10 20:31 | Hospitalist Progress Note ---
Date of Service February 10, 2023 Assessment & Plan (1) Severe sepsis: Plan: 2nd #2 sepsis resolved blood cx's negative abdominal wall abscess culture x 2 with MRSA; no other pathogens isolated cont vancomycin cont low-dose prednisone for stress dose purposes (cortisol level was "normal' but only mid-teens - would have expected level much higher with how sick he was) appreciate gen surg & IR assistance (2) Abdominal wall abscess: Plan: wound cx 02/05 with MRSA wound cx 02/06 also w/ MRSA no other pathogens identified to date cont contact precautions blood cx's remain negative s/p IR placement of drainage catheter with LARGE amount of purulent fluid cont vanco see #1 above patient had incarcerated ventral hernia repair on 01/15/23 by Rachele Benntet Gen Surg I spoke with Dr Aaron 02/06/23 - goal is to treat this abscess conservatively with IV abx and supportive care Hopefully repeat surgery can be avoided as he is high risk for additional complications ID consult today; awaiting their recommendations CRP markedly elevated early in admission -31.9, now 6 I suspect pt will have drain in place at discharge? (3) MRSA infection: Plan: of abdominal wall abscess see above contact precautions (4) Sepsis following procedure: Plan: intra-abdominal abscess 2nd MRSA with resulting severe sepsis resolving (5) Acute on chronic diastolic congestive heart failure: Plan: s/p IV lasix x 2 days now resolved last EF on echo was preserved (08/2022) (6) Acute metabolic encephalopathy: Plan: 2nd #1 resolved cont melatonin HS (7) Hypotension: Plan: 2nd to #1 resolved with fluids + stress dose steroids weaning those steroids - currently on 10mg of prednisone wean to 5mg on 02/11 and 02/12 then stop resumed metoprolol tartrate 12.5mg BID resumed imdur cont to hold MARITZA (8) Hyponatremia: Plan: resolved BMP am for stability (9) Visual disturbance: Plan: present 2-3 weeks seeing a black object, almost like a "bar code" in all visual hathaway underwent full eye exam with dilation this past week and by report was wnl today I had him cover 1 eye at a time; with doing such he did NOT have the visual disturbance in either eye MRI brain showed abnormal optic nerve root sheaths -- ?Graves disease -- TFTs wnl and on exam no proptosis, however I spoke informally with neurology as well as ophthalmology after discharge will need to see ophthalmology and/or neuro-ophthalmology for recheck of both optic nerves, visual field testing, etc cont to monitor (10) Atrial fibrillation: Plan: remains in NSR cont amiodarone daily cont metoprolol eliquis was placed on hold in the event he needed surgical intervention of #2 looking like that will be avoided resume eliquis 2.5mg BID (that was his dose pre-admission) (11) Hypertension: Plan: resumed metoprolol & imdur hold MARITZA BPs stable (12) Rheumatoid arthritis: Plan: [place] [facility] [place] immunotherapy while recovering from this severe illness (13) Coronary artery disease: Plan: cont asa cont statin cont Ranexa cont metoprolol 12.5mg BID cont imdur hold MARITZA - perhaps resume next 1-2 days (14) Incarcerated intra-abdominal hernia: Plan: s/p ventral hernia repair 01/15/23 now complicated by intra-abdominal abscess see above care d/w gen surg, Dr Aaron, by phone 02/06/23 s/p placement of drain into the abscess by IR 02/06/23 (15) Rhabdomyolysis: Plan: mild CPK just shy of 1000 at peak IMPROVING nicely now down to 272 cont to hold statin CPK am AST am he reports several months of muscle weakness of arms/legs if CPK remains elevated -- has he had a low-grade myositis?? elevated AST likely from CPK elevation if CPK remains high he will need to discuss this with Dr Waldron, his orthotic/prosthetic clinician (16) Constipation: Plan: senna + miralax (17) Anxiety and depression: Plan: is on cymbalta 60mg daily remains very depressed his son was dx with stage 4 pancreatic ca several months ago he also misses his home in [place] (lived there for many years) add SSRI? increase cymbalta? consider psych consult (18) DVT prophylaxis: Plan: lovenox daily to date, but stop and place back on Eliquis 2.5mg BID Plan left message for pt's daughter on 02/10/23 PT, OT both advising rehab (he typically lives independently at [facility]) he is thus far refusing I have concerns about him being alone after this admission, especially in light of probably needing IV antibiotics, having depression, his drain, significant wheezing, etc Admission and Anticipated Discharge Date Admission Date: February 05, 2023 Subjective tele stable overnight he was resting in bed comfortably during the visit he reports minimal amount of abdominal pain his drain is yielding about 25cc of purulent/serosanguinous fluid per 24 hours he admits that draining the current drain is technically difficult - very different than his ELYSSA drain he had had after his hernia repair eating is fair he is anxious to leave - "I want to go home" he had his ID consult today denies any dyspnea denies any orthopnea energy is fair denies any other new complaints Review of Systems Review of Systems: gen - no fevers or chills cv - no chest pain pulm - no cough or wheeze GI - no diarrhea Physical Exam Physical Exam: gen - NAD, lying comfortably in bed mouth - MMM, no thrush neck - no JVD heart - RRR, s1 s2, no murmur lungs - CTA b/l; no rales or wheezing abd - midline abdominal wall incision clean and healed; former ELYSSA site is closed; drain in place with dressings; drain has copious serosanguinous/purulent fluid in collection device; BS+; generalized tenderness resolved; there had been mild pink erythema (Faint) on the abdominal wall - this is resolved ext - 1+ edema of distal legs/feet, pulses 2+ b/l skin - stasis changes b/l legs; skin ulceration R antonio with optifoam in place; skin tear R arm with optifoam in place psych - a/o x 3, flat affect Results & Data Results & Data Vital Signs (Past 12 Hours) Vital Signs Temp Pulse Resp BP Pulse Ox O2 Del Method 02/10/23 19:52 37.2 C 58 L 18 150/82 H 94 Room Air 02/10/23 15:13 36.9 C 56 L 18 136/76 94 Room Air 02/10/23 10:54 36.8 C 56 L 18 148/79 H 93 Room Air Laboratory Results Laboratory Results - last 24 hr 02/10/23 02/10/23 02/10/23 06:42 06:42 06:42 WBC 10.21 RBC 3.31 L Hgb 9.2 L Hct 28.1 L MCV 84.9 MCH 27.8 MCHC 32.7 RDW Std Deviation 57.8 H RDW Coeff of Sammie 18.7 H Plt Count 311 MPV 9.9 Absolute Nucleated RBC 0.04 Nucleated RBC % (auto) 0.4 Sodium 139 Potassium 3.8 Chloride 105 Carbon Dioxide 29 Anion Gap 5 BUN 25 H Creatinine 1.06 Est Cr Clr Drug Dosing 71.7 Est GFR ( Amer) 77.0 Est GFR (Non-Af Amer) 66.4 BUN/Creatinine Ratio 23.6 H Glucose 100 H Calcium 8.4 L AST 48 H Total Creatine Kinase 272 H C-Reactive Protein 6.22 H TSH 1.258 Free T4 1.37 Random Vancomycin 02/10/23 10:04 WBC RBC Hgb Hct MCV MCH MCHC RDW Std Deviation RDW Coeff of Sammie Plt Count MPV Absolute Nucleated RBC Nucleated RBC % (auto) Sodium Potassium Chloride Carbon Dioxide Anion Gap BUN Creatinine Est Cr Clr Drug Dosing Est GFR ( Amer) Est GFR (Non-Af Amer) BUN/Creatinine Ratio Glucose Calcium AST Total Creatine Kinase C-Reactive Protein TSH Free T4 Random Vancomycin 17.7 Diagnostic Findings Brain MRI 02/09/23 09:00 Exam(s): MRI HEAD Without Contrast EXAM: MR Head Without Intravenous Contrast CLINICAL HISTORY: Reason for exam: visual disturbance x 1-2 weeks, occipital CVA?. TECHNIQUE: Magnetic resonance images of the head/brain without intravenous contrast in multiple planes. COMPARISON: Comparison made to prior head CT from February 05, 2023. FINDINGS: Brain: Mild nonspecific white matter changes. The flow voids at the base of the brain are intact. No mass. No hemorrhage. No acute infarct. Ventricles: Advanced ventriculomegaly. Bones/joints: Unremarkable. Sinuses: Unremarkable as visualized. No acute sinusitis. Mastoid air cells: Unremarkable as visualized. No mastoid effusion. Orbits: Bilateral lens replacements. 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 There is mild dilatation of the subarachnoid spaces of the optic nerve root sheaths. IMPRESSION: No evidence of acute intracranial pathology. Mild nonspecific white matter changes. 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 Electronically signed by: Trish Alves MD 02/10/23 01:10 AM PG Care Time/CCT Total # of Minutes Spent Total Time Spent with Patient: Total time spent is greater than 50% in coordination of care (as documented) at patient's floor/unit and/or counseling patient: Coding Level of Care Code 68332 SUB INP/OBS CARE 3/50MIN Diagnoses Severe sepsis A41.9; R65.20 Abdominal wall abscess L02.211 MRSA infection A49.02 Sepsis following procedure T81.44XA Acute on chronic diastolic congestive heart failure I50.33 Acute metabolic encephalopathy G93.41 Hypotension I95.9 Hyponatremia E87.1 Visual disturbance H53.9 Atrial fibrillation I48.91 Hypertension I10 Rheumatoid arthritis M06.9 Coronary artery disease I25.10 Incarcerated intra-abdominal hernia K46.0 Rhabdomyolysis M62.82 Constipation K59.00 Anxiety and depression F41.9; F32.A DVT prophylaxis Z29.9
[2023-02-10] MEDS: PANTOprazole 40 MG TAB PO SCH (21:17)
[2023-02-10] MEDS: TRAVOPROST Z 0.004% OPH SOLN 2.5 ML BTL OPB SCH (21:18)
[2023-02-10] MEDS: MELATONIN 3 MG TAB PO SCH (21:20)
[2023-02-11] MEDS: VANCOMYCIN HCL 1,250 MG in SODIUM CHLORIDE 0.9% 250 ML IV SCH ×2 (01:02→13:15)
[2023-02-11 07:23] LABS: BUN Creatinine Ratio 23.5 (10-20); Calcium 8.5 mg/dl (8.6-10.3); Creatinine Clr Calc Pharmacy 74.8 ml/min; Est GFR (African American) 80.6 ml/min; Est GFR (Non-African American) 69.6 ml/min; Potassium 4.1 mmol/L (3.5-5.1)
[2023-02-11] MEDS: AMIODARONE 200 MG TAB PO SCH (08:47)
[2023-02-11] MEDS: BACITRACIN OINT 14 GM TUBE EXT SCH (08:47)
[2023-02-11] MEDS: POLYETHYLENE (MIRALAX) 17 GM PACK PO SCH (08:47)
[2023-02-11] MEDS: FOLIC ACID 1 MG TAB PO SCH (08:48)
[2023-02-11] MEDS: CEROVITE ADV FORMULA TAB PO SCH (08:48)
[2023-02-11] MEDS: CYANOCOBALAMIN (B-12) 500 MCG TABLET PO SCH (08:48)
[2023-02-11] MEDS: ISOSORBIDE MONO EXTENDED REL 60 MG TABCR PO SCH (08:48)
[2023-02-11] MEDS: DULoxetine HCL 60 MG CAP PO SCH (08:48)
[2023-02-11] MEDS: BENZONATATE 100 MG CAPSULE PO SCH ×3 (08:49→20:20)
[2023-02-11] MEDS: ACETAMINOPHEN 500 MG TAB PO SCH ×3 (08:49→20:19)
[2023-02-11] MEDS: predniSONE 5 MG TAB PO SCH (08:49)
[2023-02-11] MEDS: guaiFENesin 600 MG TABCR PO SCH ×2 (08:50→20:21)
[2023-02-11] MEDS: SENNA 8.6 MG TAB PO SCH ×2 (08:50→20:19)
[2023-02-11] MEDS: APIXABAN 2.5 MG TAB PO SCH ×2 (08:51→20:20)
[2023-02-11] MEDS: METOPROLOL TARTRATE 25 MG TAB PO SCH ×2 (08:51→20:19)
[2023-02-11] MEDS: GABAPENTIN 300 MG CAP PO SCH ×3 (08:51→20:20)
[2023-02-11] MEDS: RANOLAZINE 500 MG ER TAB PO SCH ×2 (08:52→20:19)
[2023-02-11] MEDS: THIAMINE HCL 100 MG TAB PO SCH (08:53)
[2023-02-11] MEDS: ADVANCED PROBIOTIC 1250 MG CAPSULE PO PRN (08:53)
--- NOTE | 2023-02-11 08:59 | Hospitalist Progress Note ---
Date of Service February 11, 2023 Assessment & Plan (1) Severe sepsis: Plan: sepsis secondary to umbilical hernia surgical abscess initial repair was January 15 sepsis resolved blood cx's negative abdominal wall abscess culture x 2 with MRSA; no other pathogens isolated, drain in place cont vancomycin, consider daptomycin if able to discharge cont low-dose prednisone for stress dose purposes (cortisol level was "normal' but only mid-teens - would have expected level much higher with how sick he was) appreciate gen surg & IR assistance duration of antibiotics not yet specified we will continue engage with infectious disease to determine if intravenous antibiotics are required. General surgery did feel that patient should be discharged with drain once ready to return to [facility] metabolic encephalopathy secondary to infection (2) Acute on chronic diastolic congestive heart failure: Plan: s/p IV lasix x 2 days now resolved cont asa cont statin cont Ranexa cont metoprolol 12.5mg BID cont imdur last EF on echo was preserved (08/2022) (3) Atrial fibrillation: Plan: remains in NSR cont amiodarone daily cont metoprolol resume eliquis 2.5mg BID (that was his dose pre-admission) (4) Visual disturbance: Plan: present 2-3 weeks seeing a black object, almost like a "bar code" in all visual hathaway underwent full eye exam with dilation this past week and by report was wnl MRI brain showed abnormal optic nerve root sheaths -- ?Graves disease -- TFTs wnl and on exam no proptosis, however I spoke informally with neurology as well as ophthalmology after discharge will need to see ophthalmology and/or neuro-ophthalmology for recheck of both optic nerves, visual field testing, etc (5) Rheumatoid arthritis: Plan: follows with Dr Waldron - [facility] [place] Rheum hold immunotherapy while recovering from this severe illness (6) Hyponatremia: Plan: resolved BMP am for stability (7) Rhabdomyolysis: Plan: mild CPK just shy of 1000 at peak IMPROVING nicely now down to 272 cont to hold statin has he had a low-grade myositis from statin elevated AST likely from CPK elevation if CPK remains high he will need to discuss this with Dr Waldron, his product distribution specialist (8) Constipation: Plan: senna + miralax x ray checked no obstipation (9) Anxiety and depression: Plan: is on cymbalta 60mg daily remains very depressed his son was dx with stage 4 pancreatic ca several months ago he also misses his home in [place] (lived there for many years) add SSRI? increase cymbalta? (10) DVT prophylaxis: Plan: Eliquis 2.5mg BID Admission and Anticipated Discharge Date Admission Date: February 05, 2023 Subjective Feeling well. No fevers. Minimal abdominal pain. Wants to return to [facility], did discuss Encompss but pt did not want to consider Physical Exam Physical Exam: awake and alert, abdomen is with midline drain, firm around surgical scar but not erythematous Results & Data Results & Data Vital Signs (Past 12 Hours) Vital Signs Temp Pulse Pulse Pulse Resp BP Pulse Ox 02/11/23 07:22 98.2 F 60 20 148/79 H 97 02/11/23 03:30 97.5 F L 62 18 152/87 H 94 02/10/23 23:38 98.6 F 54 L 18 154/82 H 97 02/10/23 23:32 60 02/10/23 21:13 66 O2 Del Method 02/11/23 07:22 Room Air 02/11/23 03:30 Room Air 02/10/23 23:38 Room Air 02/10/23 23:32 02/10/23 21:13 PG Care Time/CCT Total # of Minutes Spent Total Time Spent with Patient: Total time spent is greater than 50% in coordination of care (as documented) at patient's floor/unit and/or counseling patient: Coding Level of Care Code 00302 SUB INP/OBS CARE 3/50MIN Diagnoses Severe sepsis A41.9; R65.20 Acute on chronic diastolic congestive heart failure I50.33 Atrial fibrillation I48.91 Visual disturbance H53.9 Rheumatoid arthritis M06.9 Hyponatremia E87.1 Rhabdomyolysis M62.82 Constipation K59.00 Anxiety and depression F41.9; F32.A DVT prophylaxis Z29.9
--- NOTE | 2023-02-11 15:52 | Surgery Progress Note ---
Date of Service February 11, 2023 Assessment & Plan (1) Abdominal wall abscess: Plan: Infectious disease consult appreciated. Discussed with Dr. Kim. We will plan to send home on oral antibiotic today or tomorrow medical management by hospitalist team continuing to follow Admission and Anticipated Discharge Date Admission Date: February 05, 2023 Subjective Feeling well. No fevers. Minimal abdominal pain. Wants to go home. Physical Exam Physical Exam: AFVSS NAD A&Ox3 Abd: soft, Mild TTP; ND incision well healed; no erythema Drain in place; minimal output -serous Results & Data Vital Signs (Past 12 Hours) Vital Signs Temp Pulse Pulse Pulse Resp BP Pulse Ox 02/11/23 15:44 36.8 C 53 L 18 149/85 H 95 02/11/23 10:59 36.8 C 53 L 20 164/78 H 93 02/11/23 08:00 53 L 02/11/23 07:22 36.8 C 60 20 148/79 H 97 O2 Del Method 02/11/23 15:44 Room Air 02/11/23 10:59 Room Air 02/11/23 08:00 02/11/23 07:22 Room Air
[2023-02-11] MEDS: traMADol HCL 50 MG TABLET PO PRN (18:30)
[2023-02-11] MEDS: MoRPHine SULFATE 2 MG/ML CARP IV PRN ×2 (19:10→22:55)
[2023-02-11] MEDS: PANTOprazole 40 MG TAB PO SCH (20:18)
[2023-02-11] MEDS: MELATONIN 3 MG TAB PO SCH (22:00)
[2023-02-11] MEDS: TRAVOPROST Z 0.004% OPH SOLN 2.5 ML BTL OPB SCH (22:00)
[2023-02-12] MEDS: VANCOMYCIN HCL 1,250 MG in SODIUM CHLORIDE 0.9% 250 ML IV SCH ×2 (02:15→14:53)
[2023-02-12] MEDS: traMADol HCL 50 MG TABLET PO PRN ×3 (02:19→15:00)
[2023-02-12] MEDS: GABAPENTIN 300 MG CAP PO SCH ×3 (09:32→21:38)
[2023-02-12] MEDS: METOPROLOL TARTRATE 25 MG TAB PO SCH ×2 (09:33→21:40)
[2023-02-12] MEDS: RANOLAZINE 500 MG ER TAB PO SCH ×2 (09:33→21:39)
[2023-02-12] MEDS: SENNA 8.6 MG TAB PO SCH ×2 (09:33→21:40)
[2023-02-12] MEDS: guaiFENesin 600 MG TABCR PO SCH ×2 (09:33→21:39)
[2023-02-12] MEDS: ACETAMINOPHEN 500 MG TAB PO SCH ×3 (09:33→21:38)
[2023-02-12] MEDS: ISOSORBIDE MONO EXTENDED REL 60 MG TABCR PO SCH (09:34)
[2023-02-12] MEDS: THIAMINE HCL 100 MG TAB PO SCH (09:34)
[2023-02-12] MEDS: APIXABAN 2.5 MG TAB PO SCH (09:34)
[2023-02-12] MEDS: BENZONATATE 100 MG CAPSULE PO SCH ×3 (09:34→21:39)
[2023-02-12] MEDS: CYANOCOBALAMIN (B-12) 500 MCG TABLET PO SCH (09:34)
[2023-02-12] MEDS: DULoxetine HCL 60 MG CAP PO SCH (09:34)
[2023-02-12] MEDS: CEROVITE ADV FORMULA TAB PO SCH (09:34)
[2023-02-12] MEDS: FOLIC ACID 1 MG TAB PO SCH (09:34)
[2023-02-12] MEDS: AMIODARONE 200 MG TAB PO SCH (09:34)
[2023-02-12] MEDS: ADVANCED PROBIOTIC 1250 MG CAPSULE PO PRN (09:35)
[2023-02-12] MEDS: BACITRACIN OINT 14 GM TUBE EXT SCH (09:35)
[2023-02-12] MEDS: predniSONE 5 MG TAB PO SCH (09:35)
[2023-02-12] MEDS: POLYETHYLENE (MIRALAX) 17 GM PACK PO SCH (09:35)
--- NOTE | 2023-02-12 16:00 | Infectious Disease Progress Nt ---
Date of Service February 12, 2023 Assessment & Plan (1) MRSA infection: (2) Sepsis following procedure: Plan 77 yo male with pmh HFrEF, atrial fibrillation, anxiety/ depression, GERD, hypertension, RA on therapy,, recent incarcerated ventral hernia repair on 01/15/23 presents with abdominal swelling, pain, fatigue for 5 d post surgical drain removal . He endorsed fevers, chills , malaise. In the Ed,he was febrile with a T 38, Hr 94. Labs noted for a wbc 6.87, bun 34, cr 1.42, lactate 2.2, procal 0.72. CPK 994 that trended to 272. CRp 31.92 trended down to 6.22. RVP negative.CTAB showed a complex hypodense collection with scattered nondependent gas internally measuring 4.3 x 13.7 x 13.1 cm, superficial to the mesh. The internal nondependent gas is concerning for developing infection within the collection He underwent abscess drainage with drain placement by IR on 02/06 . Approximately 50 mL of purulent fluid was aspirated and cx grew MRSA He is currently on IV vancomycin. ID consulted for MRSA post-op abdominal abscess Micro BC 02/05 sterile WC 02/05 MRSA (S vanco Kermit 2, Dapto, tetracycline, trim/sulfa) WC 02/06 MRSA S vanco Kermit 2, Dapto, tet, trim/sulfa) Sputum cx heavy normal teri gram stain Few Epithelial Cells Moderate Polys,Few Gram Positive Cocci,Few Gram Negative Bacilli Abx Vanco 02/05-ongoing zosyn 02/05-02/07 #MRSA abdominal abscess w/o bacteremia #S/p incarcerated ventral hernia repair on 01/15/23 # H/o knee and hip replacement # Rheumatoid arthritis on Rinvoq He developed a MRSA abscess sp hernia repair with mesh placement done appro ximately 3 wks ago. Per review of the imaging , the abscess does not appear to involve the mesh. Surgery is following. He has no associated MRSA bacteremia. The Vanco Kermit is 2, but still sensitive. CPK is down trending. Recommendations He can likely be switched from IV abx to Po abx as he is not bacteremic and has no evidence of disseminated MRSA infection. Can switch from IV vancomycin to ora doxycycline 100 mg po BID. Duration of treatment will depend on resolution of abscess. Anticipate Minimum 2 weeks from drainage, but may be longer if abscess persists. Would repeat CTAB in 1 week to evaluate for resolving/ resolved abscess. Will need surgery follow up . Drain management per team ID will sign off . Recommendations d/w team. Gavi Rich MD, MPH [facility], ID Division Call [phone] with questions Admission and Anticipated Discharge Date Admission Date: February 05, 2023 Subjective This patient recommendation is based on a telemedicine consult request which was completed asynchronously through chart review and information provided by the primary physician. The patient was not seen or examined today. The evaluation is consultative in nature and all patient care and treatment decisions can either be accepted or rejected by the patient's primary hospital-based treating physician using their own independent medical judgment for their patient. Time Spent Reviewing Chart: 11 - 20 minutes Afebreil. No new labs today. BC sterile. Sputum cx sterile Results & Data Vital Signs (Past 12 Hours) Vital Signs Temp Pulse Resp BP Pulse Ox O2 Del Method 02/12/23 11:12 36.5 C 53 L 18 154/79 H 93 Room Air 02/12/23 08:09 36.5 C 59 L 19 149/76 H 95 Room Air Laboratory Results Laboratory Results - last 48 hr 02/11/23 05:30 Sodium 139 Potassium 4.1 Chloride 104 Carbon Dioxide 29 Anion Gap 6 BUN 24 H Creatinine 1.02 Est Cr Clr Drug Dosing 74.8 Est GFR ( Amer) 80.6 Est GFR (Non-Af Amer) 69.6 BUN/Creatinine Ratio 23.5 H Glucose 91 Calcium 8.5 L AST 36 Total Creatine Kinase 148 Diagnostic Findings Microbiology 02/09/23 Unknown Sputum, Expectorated Gram Stain - Final 02/09/23 Unknown Sputum, Expectorated Sputum Culture - Final Heavy normal teri. 02/06/23 11:10 Abdomen Gram Stain - Final 02/06/23 11:10 Abdomen Aerobic and Anaerobic Culture - Final Staph aureus MRSA 02/05/23 20:20 Blood Aerobic Blood Culture - Final No growth in Aerobic bottle after 5 days. 02/05/23 20:20 Blood Anaerobic Blood Culture - Final No growth in Anaerobic bottle after 5 days. 02/05/23 20:30 Blood Aerobic Blood Culture - Final No growth in Aerobic bottle after 5 days. 02/05/23 20:30 Blood Anaerobic Blood Culture - Final No growth in Anaerobic bottle after 5 days. 02/05/23 22:50 Abdomen, Left Lower Quadrant Gram Stain - Final 02/05/23 22:50 Abdomen, Left Lower Quadrant Aerobic and Anaerobic Culture - Final Staph aureus MRSA CTAB 02/05/23 IMPRESSION: When compared to the previous examination, there has been interval ventral hernia repair with suspected mesh placement. Superficial to the presumed mesh in the subcutaneous soft tissues, there is a complex hypodense collection with scattered nondependent gas internally, measuring 4.3 x 13.7 x 13.1 cm. The internal nondependent gas is concerning for developing infection within the collection. Please correlate with laboratory and clinical findings. Brain MRI 02/09/23 09:00 Exam(s): MRI HEAD Without Contrast EXAM: MR Head Without Intravenous Contrast CLINICAL HISTORY: Reason for exam: visual disturbance x 1-2 weeks, occipital CVA?. TECHNIQUE: Magnetic resonance images of the head/brain without intravenous contrast in multiple planes. COMPARISON: Comparison made to prior head CT from February 05, 2023. FINDINGS: Brain: Mild nonspecific white matter changes. The flow voids at the base of the brain are intact. No mass. No hemorrhage. No acute infarct. Ventricles: Advanced ventriculomegaly. Bones/joints: Unremarkable. Sinuses: Unremarkable as visualized. No acute sinusitis. Mastoid air cells: Unremarkable as visualized. No mastoid effusion. Orbits: Bilateral lens replacements. 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 There is mild dilatation of the subarachnoid spaces of the optic nerve root sheaths. IMPRESSION: No evidence of acute intracranial pathology. Mild nonspecific white matter changes. 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 Electronically signed by: Trish Alves MD 02/10/23 01:10 AM Medications Administered Home Medications Medication Instructions Recorded Confirmed Last Taken sennosides 8.6 mg capsule (senna) 8.6 mg PO AMHS 06/19/22 02/05/23 02/05/23 nitroglycerin 0.4 mg sublingual 0.4 mg sublingual Q5M PRN chest 07/23/22 02/05/23 Unknown tablet pain #30 tabs amiodarone 200 mg tablet 200 mg PO QAM 08/07/22 02/05/23 02/05/23 ascorbic acid (vitamin C) 500 mg 1,000 mg PO QAM 08/07/22 02/05/23 02/05/23 capsule aspirin 81 mg tablet,delayed 81 mg PO QAM 08/07/22 02/05/23 02/05/23 release (Adult Low Dose Aspirin) coenzyme Q10 100 mg capsule 100 mg PO QAM 08/07/22 02/05/23 02/05/23 isosorbide mononitrate 60 mg 60 mg PO QAM 08/07/22 02/05/23 02/05/23 tablet,extended release 24 hr lactobacillus combination no.9 4 6,000 mmu cells PO QAM PRN use 08/07/22 02/05/23 08/13/22 billion cell capsule (Adult 50 with antibiotics Plus Probiotic) lisinopril 10 mg tablet 10 mg PO QAM 08/07/22 02/05/23 02/05/23 melatonin 5 mg capsule 5 mg PO HS 08/07/22 02/05/23 02/05/23 jjbpghpa-wferhay-sgiy-lutein tablet 1 tab PO QAM 08/07/22 02/05/23 02/05/23 cholecalciferol (vitamin D3) 250 250 mcg PO DAILY 90 days #90 tabs 09/19/22 02/05/23 02/05/23 mcg (10,000 unit) tablet metoprolol tartrate 25 mg tablet 12.5 mg PO BID #60 tabs 10/03/22 02/05/23 02/05/23 upadacitinib 15 mg tablet,extended 15 mg PO QAM 10/15/22 02/05/23 02/05/23 release 24 hr (Rinvoq) acetaminophen 500 mg capsule 1,000 mg PO TID 11/11/22 02/05/23 02/05/23 omega 0-qqn-eoj-fish oil 1,000 mg 1 cap PO QAM #30 caps 12/15/22 02/05/23 02/05/23 (120 mg-180 mg) capsule (Fish Oil) furosemide 20 mg tablet 20 mg PO DAILY PRN edema or weight 12/25/22 02/05/23 Unknown gain #30 tabs pravastatin 40 mg tablet 40 mg PO HS 01/13/23 02/05/23 02/04/23 ranolazine 500 mg tablet,extended 500 mg PO BID 01/13/23 02/05/23 02/05/23 release,12 hr travoprost 0.004 % eye drops 1 drp OPB QPM 01/13/23 02/05/23 02/05/23 (Travatan Z) oxycodone-acetaminophen 5 mg-325 1 tab PO Q6H PRN pain #12 tabs 01/16/23 02/05/23 Unknown mg tablet (Percocet) cyanocobalamin (vitamin B-12) 500 1,000 mcg PO QAM #30 tabs 01/18/23 02/05/23 02/05/23 mcg tablet folic acid 1 mg tablet 1 mg PO QAM #30 tabs 01/18/23 02/05/23 02/05/23 hydroxyzine HCl 10 mg tablet 10 mg PO HS PRN anxiety or 01/18/23 02/05/23 Unknown insomnia #14 tabs gabapentin 300 mg capsule 300 mg PO TID #90 caps 01/27/23 02/05/23 02/05/23 apixaban 2.5 mg tablet (Eliquis) 2.5 mg PO BID 02/05/23 02/05/23 02/05/23 duloxetine 60 mg capsule,delayed 60 mg PO QAM 02/05/23 02/05/23 02/05/23 release esomeprazole magnesium 40 mg 40 mg PO HS 02/05/23 02/05/23 02/04/23 capsule,delayed release (Nexium) potassium chloride 10 mEq 20 meq PO DAILY PRN when taking 02/05/23 02/05/23 Unknown tablet,extended release(part/cryst) lasix thiamine HCl (vitamin B1) 100 mg 100 mg PO QAM 02/05/23 02/05/23 02/05/23 tablet bacitracin 500 unit/gram topical 1 applic EXT DAILY 1 week #28 grams 02/12/23 Unknown ointment doxycycline hyclate 100 mg tablet 100 mg PO BID 14 days #28 tabs 02/12/23 Unknown Active Medications Generic Name Dose Route Start Last Admin Trade Name Freq PRN Reason Stop Dose Admin Acetaminophen 1,000 mg 02/06/23 09:00 02/12/23 14:52 Acetaminophen 500 Mg Tab PO 03/08/23 08:59 1,000 mg TID ELDER Administration Amiodarone HCl 200 mg 02/06/23 09:00 02/12/23 09:34 Amiodarone 200 Mg Tab PO 03/08/23 08:59 200 mg QAM ELDER Administration Apixaban 2.5 mg 02/11/23 09:00 02/12/23 09:34 Apixaban 2.5 Mg Tab PO 03/13/23 08:59 2.5 mg BID ELDER Administration Bacitracin 1 appln 02/09/23 09:00 02/12/23 09:35 Bacitracin Oint 14 Gm Tube EXT 03/11/23 08:59 1 appln DAILY ELDER Administration Benzonatate 100 mg 02/09/23 21:00 02/12/23 14:53 Benzonatate 100 Mg Capsule PO 03/11/23 20:59 100 mg TID ELDER Administration Cyanocobalamin 1,000 mcg 02/06/23 09:00 02/12/23 09:34 Cyanocobalamin (B-12) 500 Mcg Tablet PO 03/08/23 08:59 1,000 mcg QAM ELDER Administration Duloxetine HCl 60 mg 02/06/23 09:00 02/12/23 09:34 Duloxetine Hcl 60 Mg Cap PO 03/08/23 08:59 60 mg QAM ELDER Administration Folic Acid 1 mg 02/06/23 09:00 02/12/23 09:34 Folic Acid 1 Mg Tab PO 03/08/23 08:59 1 mg QAM ELDER Administration Gabapentin 300 mg 02/06/23 09:00 02/12/23 14:53 Gabapentin 300 Mg Cap PO 03/08/23 08:59 300 mg TID ELDER Administration Guaifenesin 1,200 mg 02/09/23 09:00 02/12/23 09:33 Guaifenesin 600 Mg Tabcr PO 03/11/23 08:59 1,200 mg Q12 ELDER Administration Hydroxyzine HCl 10 mg 02/06/23 00:24 02/09/23 08:11 Hydroxyzine Hcl 10 Mg Tab PO 03/08/23 00:23 10 mg HS PRN Administration anxiety or insomnia Vancomycin HCl 1,250 mg/ 275 mls @ 200 mls/hr 02/08/23 14:00 02/12/23 14:53 Sodium Chloride IV 02/15/23 13:59 200 mls/hr Q12H ELDER Administration Isosorbide Mononitrate 60 mg 02/11/23 09:00 02/12/23 09:34 Isosorbide [place] Extended Rel 60 Mg Tabcr PO 03/13/23 08:59 60 mg QAM ELDER Administration Lactobacillus Acidophilus 2 cap 02/06/23 00:46 02/12/23 09:35 Advanced Probiotic 1250 Mg Capsule PO 03/08/23 00:45 2 cap QAM PRN Administration use with antibiotics Melatonin 4.5 mg 02/06/23 21:00 02/11/23 22:00 Melatonin 3 Mg Tab PO 03/08/23 20:59 4.5 mg HS ELDER Administration Metoprolol Tartrate 12.5 mg 02/08/23 09:00 02/12/23 09:33 Metoprolol Tartrate 25 Mg Tab PO 03/10/23 08:59 12.5 mg BID ELDER Administration Morphine Sulfate 2 mg 02/06/23 17:58 02/11/23 22:55 Morphine Sulfate 2 Mg/Ml Carp IV 02/20/23 17:57 2 mg Q3H PRN Administration Severe Pain (Scale 7, 8, 9,10) Multivitamins/Minerals 1 tab 02/06/23 09:00 02/12/23 09:34 Cerovite Adv Formula Tab PO 03/08/23 08:59 1 tab QAM ELDER Administration Pantoprazole Sodium 40 mg 02/06/23 21:00 02/11/23 20:18 Pantoprazole 40 Mg Tab PO 03/08/23 20:59 40 mg HS ELDER Administration Polyethylene Glycol 17 gm 02/09/23 09:00 02/12/23 09:35 Polyethylene (Miralax) 17 Gm Pack PO 03/11/23 08:59 17 gm DAILY ELDER Administration Pravastatin Sodium 40 mg 02/06/23 21:00 02/06/23 22:15 Pravastatin Sod 40 Mg Tab PO 03/08/23 20:59 40 mg HS ELDER Administration Ranolazine 500 mg 02/06/23 09:00 02/12/23 09:33 Ranolazine 500 Mg Er Tab PO 03/08/23 08:59 500 mg BID ELDER Administration Sennosides 8.6 mg 02/06/23 09:00 02/12/23 09:33 Senna 8.6 Mg Tab PO 03/08/23 08:59 8.6 mg BID ELDER Administration Thiamine HCl 100 mg 02/06/23 09:00 02/12/23 09:34 Thiamine Hcl 100 Mg Tab PO 03/08/23 08:59 100 mg QAM ELDER Administration Tramadol HCl 50 mg 02/05/23 23:53 02/12/23 15:00 Tramadol Hcl 50 Mg Tablet PO 03/07/23 23:52 50 mg Q4H PRN Administration Moderate Pain (Scale 4, 5, 6) Travoprost 1 drops 02/06/23 21:00 02/11/23 22:00 Travoprost Z 0.004% Oph Soln 2.5 Ml Btl OPB 03/08/23 20:59 1 drops QPM ELDER Administration
--- NOTE | 2023-02-12 17:54 | CT Scan Report ---
HEAD CT NONCONTRAST CT DOSE: HISTORY: fall TECHNIQUE: Multiaxial CT images of the head were performed without the use of intravenous contrast. A utomated exposure control was utilized for this study. A dose lowering technique was utilized adheri ng to the principles of ALARA. Comparison: Head CT 02/05/2023. Findings: The paranasal sinuses and mastoid air cells are clear. The calvarium and skull base are int act. There is no mass, hematoma, midline shift, acute infarct. White matter hypodensity is nonspecifi c but suggestive of microvascular ischemic change. The ventricles and sulci demonstrate mild age-rela janel involutional changes. Impression: No acute intracranial abnormality. Atrophy and microvascular ischemic changes. ACT 112: Negative or not required by law. Electronically signed by: Kendall No M.D. 02/12/2023 5:51 PM
--- NOTE | 2023-02-12 17:58 | CT Scan Report ---
CERVICAL SPINE CT CT DOSE: 1237.37 mGy.cm HISTORY: fall TECHNIQUE: Multiaxial CT images of the cervical spine were performed and reformatted in the sagittal and coronal plane without the use of contrast. A dose lowering technique was utilized adhering to th e principles of ALARA. COMPARISON: None. FINDINGS: No fractures. No subluxation. Prevertebral soft tissues and the C1-C2 interval are intact. No pneumothorax. There is a posterior fusion defect at T1. This is considered to be developmental. Se nelida degenerative disc disease throughout the cervical spine. IMPRESSION: No fractures within the cervical spine. ACT 112: Negative or not required by law. Electronically signed by: Kendall No M.D. 02/12/2023 5:56 PM
[2023-02-12] MEDS ORDERED: XYLOCAINE 1%/SOD BICARB 20 ML VIAL INFIL ONE (18:01)
[2023-02-12] MEDS ORDERED: LIDOCAINE 1% LOCAL 20 ML VIAL ONE (18:11)
--- NOTE | 2023-02-12 19:11 | Emergency Department Note ---
ED Visit Note I was asked to repair the patient's scalp laceration. The patient is currently admitted here to the hospital. In short, he sustained a standing height fall. There is a 6 cm scalp laceration in the anterior to posterior orientation. The patient was evaluated by the hospitalist, sent to the CT scanner for imaging of the head and C-spine ordered by the hospitalist and then brought here to the ED for repair. I repaired the wound in room D1. Risks and benefits of performing primary wound closure versus no repair were discussed with the patient who verbalizes understanding. Verbal consent was obtained prior to performing the procedure. 6 cc of 1% lidocaine without epinephrine was used to anesthetize the scalp laceration. The wound was cleansed and prepped in the typical sterile fashion utilizing normal saline and Betadine. The wound was sterilely draped. Once proper anesthetization was established, the wound was further examined and demonstrated linear laceration that does traverse into the subcutaneous tissue without evidence of skull involvement. The wound was copiously irrigated with normal saline and Betadine. The wound edges do gape apart at rest. I believe he would benefit from deeper observable sutures to better approximate the wound. Decision was then made to place 2, 6-0 Vicryl sutures with the wound edges being well approximated. I did trim the surrounding hair to provide a better wound closure and visualization of the wound. The wound was then closed using 10 marcello with the wound edges being well approximated. Patient tolerated the procedure well. No complications were met. The wound was cleansed and dressed with a Bacitracin dressing. The patient is alert and oriented. GCS 15. I did discuss plan of care with the attending physician, Dr. Memberno. Recommendation from him was to remove the c-collar once scans were negative. I did review the patient's CT scans. There is no midline C- spine tenderness. No neck pain. No numbness or tingling in the extremities. Patient then taken by nursing staff back to his room, 244-1. I reviewed wound management with the patient. I recommend staple removal in 10 days. .
--- NOTE | 2023-02-12 19:57 | Communication Note ---
Date of Service: February 12, 2023 Patient experienced fall earlier today prior to discharge. Fall generated a laceration to the scalp on the R requiring ED to put in [address] aples. Vital signs have been stable since fall. Patient was examined at bedside by this physician at the beginning of shift with no bleeding at the site and patient tolerating well. Patient only complained of hip pain sustained on the R from the fall, says he has a past history of hip replacement on that side. I discussed with patient, we will get XR of the R hip if pain worsens and manage pain with PRN medications. Eliquis is being held for 1 day to allow for healing of the wound. Patient made aware PCP knows of his hospitalization and delay of discharge due to the fall.
[2023-02-12] MEDS: MELATONIN 3 MG TAB PO SCH (21:38)
[2023-02-12] MEDS: PANTOprazole 40 MG TAB PO SCH (21:39)
[2023-02-12] MEDS: TRAVOPROST Z 0.004% OPH SOLN 2.5 ML BTL OPB SCH (21:39)
--- NOTE | 2023-02-12 22:21 | Hospitalist Progress Note ---
Date of Service February 12, 2023 Assessment & Plan (1) Severe sepsis: Plan: sepsis secondary to umbilical hernia surgical abscess initial repair was January 15 sepsis resolved blood cx's negative abdominal wall abscess culture x 2 with MRSA; no other pathogens isolated, drain in place cont vancomycin, consider daptomycin if able to discharge cont low-dose prednisone for stress dose purposes (cortisol level was "normal' but only mid-teens - would have expected level much higher with how sick he was) appreciate gen surg & IR assistance duration of antibiotics not yet specified we will continue engage with infectious disease to determine if intravenous antibiotics are required. General surgery did feel that patient should be discharged with drain once ready to return to [facility] metabolic encephalopathy secondary to infection Plan was ot discharge, however, patient suffered a fall, and discharge will be held. Also holding eliquis for a day. (2) Acute on chronic diastolic congestive heart failure: Plan: s/p IV lasix x 2 days now resolved cont asa cont statin cont Ranexa cont metoprolol 12.5mg BID cont imdur last EF on echo was preserved (08/2022) (3) Atrial fibrillation: Plan: remains in NSR cont amiodarone daily cont metoprolol hold eliquis 2.5mg BID (that was his dose pre-admission) (4) Visual disturbance: Plan: present 2-3 weeks seeing a black object, almost like a "bar code" in all visual hathaway underwent full eye exam with dilation this past week and by report was wnl MRI brain showed abnormal optic nerve root sheaths -- ?Graves disease -- TFTs wnl and on exam no proptosis, however I spoke informally with neurology as well as ophthalmology after discharge will need to see ophthalmology and/or neuro-ophthalmology for recheck of both optic nerves, visual field testing, etc (5) Rheumatoid arthritis: Plan: [place] [facility] [place] hold immunotherapy while recovering from this severe illness (6) Hyponatremia: Plan: resolved BMP am for stability (7) Rhabdomyolysis: Plan: mild CPK just shy of 1000 at peak IMPROVING nicely now down to 272 cont to hold statin has he had a low-grade myositis from statin elevated AST likely from CPK elevation if CPK remains high he will need to discuss this with Dr Waldron, his prestidigitator (8) Constipation: Plan: senna + miralax x ray checked no obstipation (9) Anxiety and depression: Plan: is on cymbalta 60mg daily remains very depressed his son was dx with stage 4 pancreatic ca several months ago he also misses his home in [place] (lived there for many years) add SSRI? increase cymbalta? (10) DVT prophylaxis: Plan: hold Eliquis 2.5mg BID (11) Fall: Plan: Patient had a laceration repair. Patient will need a ct scan of head and neck. will closely monitor. Signed out to overnight resident. Admission and Anticipated Discharge Date Admission Date: February 05, 2023 Subjective 77 yo male reports that he would like to be discharged. Patient however suffered a fall when patient stumbled and hit his head on the ground causing a laceration. Review of Systems Review of Systems: All systems reviewed & are unremarkable except as noted in HPI & below Physical Exam Physical Exam: awake and alert, abdomen is with midline drain, firm around surgical scar but not erythematous Laceration on top of his scalp. Patient able to move allextremities, Oriented x3, no focal deficits. Results & Data Results & Data Vital Signs (Past 12 Hours) Vital Signs Temp Pulse Pulse Pulse Pulse Resp BP 02/12/23 19:20 36.8 C 55 L 18 155/80 H 02/12/23 17:10 106 H 24 160/86 H 02/12/23 17:41 106 H 167/86 H 02/12/23 16:19 36.4 C L 54 L 19 183/92 H 02/12/23 16:11 02/12/23 16:04 54 L 02/12/23 11:12 36.5 C 53 L 18 BP Pulse Ox O2 Del Method 02/12/23 19:20 95 Room Air 02/12/23 17:10 90 Room Air 02/12/23 17:41 02/12/23 16:19 97 Room Air 02/12/23 16:11 Room Air 02/12/23 16:04 02/12/23 11:12 154/79 H 93 Room Air PG Care Time/CCT Total # of Minutes Spent Total Time Spent with Patient: Total time spent is greater than 50% in coordination of care (as documented) at patient's floor/unit and/or counseling patient: Coding Level of Care Code 11901 SUB INP/OBS CARE 3/50MIN Diagnoses Severe sepsis A41.9; R65.20 Acute on chronic diastolic congestive heart failure I50.33 Atrial fibrillation I48.91 Visual disturbance H53.9 Rheumatoid arthritis M06.9 Hyponatremia E87.1 Rhabdomyolysis M62.82 Constipation K59.00 Anxiety and depression F41.9; F32.A DVT prophylaxis Z29.9 Fall W19.XXXA
[2023-02-13] MEDS: VANCOMYCIN HCL 1,250 MG in SODIUM CHLORIDE 0.9% 250 ML IV SCH ×2 (01:52→14:29)
[2023-02-13] MEDS: ISOSORBIDE MONO EXTENDED REL 60 MG TABCR PO SCH (09:31)
[2023-02-13] MEDS: SENNA 8.6 MG TAB PO SCH (09:31)
[2023-02-13] MEDS: RANOLAZINE 500 MG ER TAB PO SCH (09:31)
[2023-02-13] MEDS: METOPROLOL TARTRATE 25 MG TAB PO SCH (09:31)
[2023-02-13] MEDS: CYANOCOBALAMIN (B-12) 500 MCG TABLET PO SCH (09:31)
[2023-02-13] MEDS: CEROVITE ADV FORMULA TAB PO SCH (09:31)
[2023-02-13] MEDS: DULoxetine HCL 60 MG CAP PO SCH (09:32)
[2023-02-13] MEDS: GABAPENTIN 300 MG CAP PO SCH ×2 (09:32→14:21)
[2023-02-13] MEDS: THIAMINE HCL 100 MG TAB PO SCH (09:32)
[2023-02-13] MEDS: guaiFENesin 600 MG TABCR PO SCH (09:32)
[2023-02-13] MEDS: BENZONATATE 100 MG CAPSULE PO SCH ×2 (09:32→14:21)
[2023-02-13] MEDS: AMIODARONE 200 MG TAB PO SCH (09:32)
[2023-02-13] MEDS: FOLIC ACID 1 MG TAB PO SCH (09:32)
[2023-02-13] MEDS: POLYETHYLENE (MIRALAX) 17 GM PACK PO SCH (09:34)
[2023-02-13] MEDS: ACETAMINOPHEN 500 MG TAB PO SCH ×2 (09:35→14:56)
[2023-02-13] MEDS: BACITRACIN OINT 14 GM TUBE EXT SCH (11:12)
--- NOTE | 2023-02-13 11:39 | Surgery Progress Note ---
Date of Service February 13, 2023 Assessment & Plan (1) Abdominal wall abscess: Plan: afebrile, vss drain serosanguineous Plan: okay from surgical standpoint for discharge with oral doxycycline as recommended by ID Repeat CT scan of abd/pelvis with iv and oral contrast ordered for Rachele cintron on Thursday02/17/2023 and follow-up with Dr. Aaron on 02/26/23. Patient was informed of these dates and times were placed in discharge instructions advised no heavy lifting over 10 pounds or core work for another 4 weeks Continue medical management Discussed with Dr. Aaron who agrees with above. Admission and Anticipated Discharge Date Admission Date: February 05, 2023 Subjective feeling okay this morning, having some right hip pain after fall. No abdominal pain no n,v, tolerating diet passing gas small bowel movement urinating without difficulty Physical Exam Constitutional: WD/WN, vitals as above cooperative and comfortable; no acute distress and not ill appearing Respiratory: normal respiratory effort; no respiratory distress Gastrointestinal (Abdomen): Inspection/Auscultation: abdomen normal to inspection, + abdominal surgical scar (midline laparotomy scar) and + abdominal surgical drain present ( serosanguineous fluid ); abdomen not distended Skin: no rashes, warm and dry no erythema Psychiatric: Orientation: alert and oriented x 3 Results & Data Vital Signs (Past 12 Hours) Vital Signs Temp Pulse Pulse Resp BP Pulse Ox O2 Del Method 02/13/23 08:00 36.7 C 59 L 18 118/72 95 Room Air 02/13/23 07:18 52 L 02/13/23 03:40 36.8 C 53 L 18 132/73 97 Room Air
--- NOTE | 2023-02-13 15:27 | Discharge Summary ---
Date of Service February 13, 2023 Admission HPI Per Admitting Provider The patient is a 77-year-old male with past medical history including incisional hernia status postrepair, HFrEF, atrial fibrillation, anxiety depression, GERD, hypertension, RA, CAD, and dyslipidemia. He presents to the emergency department with fever, increasing abdominal girth, increasing abdominal discomfort and generalized malaise. CT scan of abdomen and pelvis performed in the ED shows superficial to the p resumed mass in the subcutaneous soft tissues there is a complex hypodense collection with scattered nondependent gas internally measuring 4.3 x 13.7 x 13.1 cm. The internal nondependent gas is concerning for developing infection within the collection Significant laboratories: Creatinine 1.42, glucose 115, total bili 1.1, lactate 2.2, AST 117, troponin 83.9 and Pro-Arsalan 0.72 Principal Diagnosis sepsis Discharge Exam awake and alert, abdomen is with midline drain, firm around surgical scar but no t erythematous Patient able to move all extremities, Oriented x3, no focal deficits. Discharge Data Allergies Allergy/AdvReac Type Severity Reaction Status Date / Time cat dander Allergy Severe Swelling Verified 01/22/23 10:38 of Lip/Tongue/Throat Consultations 02/05/23 22:01 Consult General Surgery Stat ED Decision to Admit Stat 02/10/23 08:47 Consult Infectious Diseases Routine 02/11/23 19:42 Consult Behavioral Health Liaison Routine Ordered Studies 02/05/23 20:20 CT abd pelvis wo con Stat 02/05/23 20:21 CT head/brain wo con Stat 02/06/23 IR AD peritoneal/retro w/gdnce Routine 02/09/23 09:00 MR brain wo con Routine 02/12/23 17:21 CT head/brain wo con Stat CT neck [CT cervical spine wo con] Stat Hospital Course (1) Severe sepsis: sepsis secondary to umbilical hernia surgical abscess initial repair was January 15 sepsis resolved blood cx's negative abdominal wall abscess culture x 2 with MRSA; no other pathogens isolated, drain in place was treated with vancomycin cont low-dose prednisone for stress dose purposes (cortisol level was "normal' but only mid-teens - would have expected level much higher with how sick he was) metabolic encephalopathy secondary to infection Patient suffered a fall, and discharge was held the day prior.. Also held Eliquis for a day. Patient required marcello as he suffered a laceration. Patient will have an appointment schedule with surgery in 10 days to get this removed. CT scan of head and neck were negative. Extensive discussion with son and patient, they both feel comfortable being discharged and understand risk of falling again, though he has wheelchair at home. Patient will continue PO antibiotics as an outpatient and will be discharged with a drain. Followup with [facility] Surgery also scheduled. (2) Acute on chronic diastolic congestive heart failure: s/p IV lasix x 2 days now resolved cont asa cont statin cont Ranexa cont metoprolol 12.5mg BID cont imdur last EF on echo was preserved (08/2022) (3) Atrial fibrillation: remains in NSR cont amiodarone daily cont metoprolol hold eliquis 2.5mg BID (that was his dose pre-admission) (4) Visual disturbance: present 2-3 weeks seeing a black object, almost like a "bar code" in all visual hathaway underwent full eye exam with dilation this past week and by report was wnl MRI brain showed abnormal optic nerve root sheaths -- ?Graves disease -- TFTs wnl and on exam no proptosis, however I spoke informally with neurology as well as ophthalmology after discharge will need to see ophthalmology and/or neuro-ophthalmology for recheck of both optic nerves, visual field testing, etc (5) Rheumatoid arthritis: follows with Dr Waldron - [facility] Rheum hold immunotherapy while recovering from this severe illness (6) Hyponatremia: resolved BMP am for stability (7) Rhabdomyolysis: mild CPK just shy of 1000 at peak IMPROVING nicely now down to 272 cont to hold statin has he had a low-grade myositis from statin elevated AST likely from CPK elevation may need to discuss this with Dr Waldron, his aromatherapist (8) Constipation: senna + miralax x ray checked no obstipation (9) Anxiety and depression: is on cymbalta 60mg daily remains very depressed his son was dx with stage 4 pancreatic ca several months ago he also misses his home in [place] (lived there for many years) will defer to PCP (10) DVT prophylaxis: hold Eliquis 2.5mg BID (11) Fall: Patient had a laceration repair. treatment as above. Total Time Total Time Spent Total Time Spent (In Minutes): 50 Discharge Plan Discharge Items Patient Disposition: Home - Self-Care Reason For Visit: SEPSIS, POST-OP ABSCESS, NSTEMI Discharge Diagnosis: Sepsis/ post op abscess Activity: Resume your previous activity Non-emergency contact: Primary Care Provider and Surgeon Call non-emergency contact if: you have any medication questions, your pain is worsening, you have a fever, your wound has increased redness, your wound has increased drainage and your wound pain has increased Follow-up/Referrals: Rafy Aaron MD [Physician] - 02/26/23 10:30 am Danny Soliman DO [Primary Care Provider] - 02/16/23 11:30 am Diet: Heart Healthy Addrhett Attending Provider Instructions: Good afternoon Mr. Palacio, I had a discussion with Infectious Disease, and General Surgery. We will place you on Doxycycline for 2 weeks, We will recommend a followup with General Surgery. Repeat imaging should be completed in about 1 week to check for improvement of your abscess. General surgery will work on setting an appointment earlier to get the sutures/marcello removed. They will call you on Thursday for a date and time. You will. have a CT scan scheduled on 02/17/23 at 10:00 am at [facility] Your are scheduled to see Dr. Aaron at [facility] on 02/26/2023 at 10:30 am Office number We will also help coordinate followup with an qa tech Ok to resume eliquis tomorrow. Ok to resume rinvoq tomorrow. Add Project Geophysicist Provider Instructions: GENERAL SURGERY DISCHARGE INSTRUCTIONS: ACTIVITY RECOMMENDATIONS: * No heavy lifting (>10 lbs.) for 4 weeks. SPECIAL CARE INSTRUCTIONS: * Keep surgical drain in place * You are scheduled for a repeat CT scan of abdomen and pelvis on [facility] any residual abscess. * May shower.. Let water run over area and pat dry. Try to keep drain site area clean and dry as much as possible. * Call the surgeon's office with any questions or concerns - (ex. temperature higher than 101 degrees F, excessive bleeding or pain). MEDICATIONS: Resume previous medications unless instructed otherwise. Take antibiotics as prescribed and take entire course as directed. FOLLOW UP VISIT: Scheduled to see Dr. Aaron at [facility] on 02/26/2023 at 10:30 am Office number Pending Studies at Discharge: No Stand-Alone Forms: [facility], Smoking Cessation Medications and DC Order Prescriptions: New bacitracin 500 unit/gram Ointment 1 applic EXT DAILY 7 Days Qty: 28 0RF doxycycline hyclate 100 mg tablet 100 mg PO BID 14 Days Qty: 28 0RF Continued acetaminophen 500 mg capsule 1,000 mg PO TID Rx Instructions: takes with gabapentin nitroglycerin 0.4 mg tablet, sublingual 0.4 mg sublingual Q5M PRN (Reason: chest pain) Qty: 30 0RF Rx Instructions: do not exceed 3 doses per episode cholecalciferol (vitamin D3) 250 mcg (10,000 unit) tablet 250 mcg PO DAILY 90 Days Qty: 90 3RF metoprolol tartrate 25 mg tablet 12.5 mg PO BID Qty: 60 2RF Rx Instructions: for your heart and high blood pressure omega 9-pgm-oun-fish oil [Fish Oil] 1,000 mg (120 mg-180 mg) capsule 1 cap PO QAM Qty: 30 3RF gabapentin 300 mg capsule 300 mg PO TID Qty: 90 6RF senna 8.6 mg capsule 8.6 mg PO AMHS furosemide 20 mg tablet 20 mg PO DAILY PRN (Reason: edema or weight gain) Qty: 30 5RF amiodarone 200 mg tablet 200 mg PO QAM isosorbide mononitrate 60 mg tablet extended release 24 hr 60 mg PO QAM lisinopril 10 mg tablet 10 mg PO QAM [id number]-zhmv-lutein Tablet 1 tab PO QAM coenzyme Q10 100 mg capsule 100 mg PO QAM melatonin 5 mg capsule 5 mg PO HS Adult 50 Plus Probiotic 4 billion cell capsule 6,000 mmu cells PO QAM PRN (Reason: use with antibiotics) Rx Instructions: administer with a meal ascorbic acid (vitamin C) 500 mg capsule 1,000 mg PO QAM pravastatin 40 mg tablet 40 mg PO HS ranolazine 500 mg tablet extended release 12 hr 500 mg PO BID travoprost [Travatan Z] 0.004 % drops 1 drp OPB QPM oxycodone-acetaminophen [Percocet] 5-325 mg tablet 1 tab PO Q6H PRN (Reason: pain) Qty: 12 0RF cyanocobalamin (vitamin B-12) 500 mcg Tablet 1,000 mcg PO QAM Qty: 30 0RF hydroxyzine HCl 10 mg Tablet 10 mg PO HS PRN (Reason: anxiety or insomnia) Qty: 14 0RF folic acid 1 mg Tablet 1 mg PO QAM Qty: 30 0RF Rinvoq 15 mg tablet extended release 24 hr 15 mg PO QAM potassium chloride 10 mEq tablet,ER particles/crystals 20 meq PO DAILY PRN (Reason: when taking lasix) Eliquis 2.5 mg tablet 2.5 mg PO BID Rx Instructions: TAKE 1 TABLET BY MOUTH TWICE DAILY thiamine HCl (vitamin B1) 100 mg tablet 100 mg PO QAM esomeprazole magnesium [Nexium] 40 mg capsule,delayed release(DR/EC) 40 mg PO HS duloxetine 60 mg capsule,delayed release(DR/EC) 60 mg PO QAM Held aspirin [Adult Low Dose Aspirin] 81 mg tablet,delayed release (DR/EC) 81 mg PO QAM Hold Instructions: Resume on 02/23/23. until PCP/surgery followup Discharge Orders: Discharge Order (Routine); Ordered 02/13/23 Ordered By: Sadiq Membreno Admission Data Admit Date/Time: 02/05/23 23:07 Attending Provider: Sadiq Membreno Admit Provider: Himanshu Weinstein Primary Care Provider: Danny Soliman Other Providers: Cortes Lee ; Himanshu Weinstein ; Stephani Mcfarland ; Stan Nam ; Haylee Salguero ; Precious Johnson ; Kerry Machado ; Esme Huston ; Carmen Joy ; Gavi Rich ; Annia Devine ; Kelli Middleton Mauldin Other Interventions: Discharge Summary Assessment (RN) Last Done: 02/13/23 15:30 Coding Level of Care Code 74936 INP/OBS DISCH >30 MIN Diagnoses Severe sepsis A41.9; R65.20 Acute on chronic diastolic congestive heart failure I50.33 Atrial fibrillation I48.91 Visual disturbance H53.9 Rheumatoid arthritis M06.9 Hyponatremia E87.1 Rhabdomyolysis M62.82 Constipation K59.00 Anxiety and depression F41.9; F32.A DVT prophylaxis Z29.9 Fall W19.XXXA
[2023-02-13] MEDS ORDERED: DOXYCYCLINE HYCLATE 100 MG CAP PO SCH (21:00)
--- OUTSIDE RECORDS SUMMARY | 2023-02-16 22:06 | External Medical Summary | Continuity of Care Document ---
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 Role Phone Danny Soliman Primary Care Physician [id number] [id number] Date(s): 11/04/22 - 11/05/[address] [phone] [phone] Encounter Diagnosis Acute pain(Discharge Diagnosis) - 10/31/22 Right knee pain(Discharge Diagnosis) - 11/04/22 Rheumatoid arthritis(Discharge Diagnosis) - 11/04/22 Immunocompromised state(Discharge Diagnosis) - 11/04/22 Presence of right artificial hip joint(Discharge Diagnosis) - 11/04/22 Presence of artificial knee joint, bilateral(Discharge Diagnosis) - 11/04/22 Pyogenic arthritis, unspecified(Final) - Infection and inflammatory reaction due to internal right knee prosthesis, initial encounter(Final) - Obesity, unspecified(Final) - Body mass index [BMI] 31.0-31.9, adult(Final) - Discharge Disposition: Home or Self Care Attending Physician: MD Kern Charles M Admitting Physician: MD Kern Charles M Allergies, Adverse Reactions, Alerts No Known Medication Allergies Functional Status 11/05/22 History of Fall in Last 3 Months Mcgrath N o Presence of Secondary Diagnosis Mcgrath Ye s Use of Ambulatory Aid Mcgrath Crutches/can e/walker IV/Heparin Lock Fall Risk Mcgrath Yes Gait/Transferring Fall Risk Mcgrath Normal /bedrest/immobile Mental Status Fall Risk Mcgrath Oriented t o own ability Mcgrath Fall Risk Score 50 Mcgrath Fall Risk High risk 11/05/22 Speech Pattern Clear 11/04/22 Neurological Symptoms None ADLs Minimal assistance Facial Symmetry Symmetric Gait Unable to assess Swallowing Difficulty None Level of Consciousness Neuro Alert Hallucinations Present None Medications amiodarone 200 mg oral tablet Start: 08/21/22 10:11:00 EDT, 1 tab, PO, Daily Start Date: 08/21/22 Status: Ordered ascorbic acid/chondroitin/glucosamine/manganese 20 mg-400 mg-500 mg-2 mg oral capsule Start: 08/21/22 10:17:00 EDT, 1 tab, PO, Daily Start Date: 08/21/22 Status: Ordered aspirin Start: 08/21/22 10:12:00 EDT, 81 mg =, PO, Daily Start Date: 08/21/22 Status: Ordered CoQmax [place] 100 mg oral capsule Start: 08/21/22 10:14:00 EDT, 1 cap, PO, Daily Start Date: 08/21/22 Status: Ordered doxycycline hyclate 100 mg oral capsule Start: 11/05/22 8:38:00 EDT, 1 cap, PO, bid, Disp# 56 cap, Refills: 1, Pharmacy: [facility] Start Date: 11/05/22 Stop Date: 12/31/22 Status: Ordered DULoxetine 30 mg oral delayed release capsule Start: 08/21/22 10:14:00 EDT, 2 cap, PO, Daily Start Date: 08/21/22 Status: Ordered Eliquis 2.5 mg oral tablet Start: 08/21/22 10:11:00 EDT, 1 tab, PO, bid Start Date: 08/21/22 Status: Ordered esomeprazole 40 mg oral delayed release capsule Start: 08/21/22 10:15:00 EDT, 1 cap, PO, Daily Start Date: 08/21/22 Status: Ordered furosemide 20 mg oral tablet Start: 08/21/22 10:15:00 EDT, 1 tab, PO, Daily, PRN: prn Start Date: 08/21/22 Status: Ordered gabapentin 100 mg oral capsule Start: 08/21/22 10:16:00 EDT, 1 cap, PO, tid Start Date: 08/21/22 Status: Ordered ICaps with Lutein and Zeaxanthin Start: 06/24/22 10:09:00 EST, 1 tab, PO, Daily Start Date: 06/24/22 Status: Ordered isosorbide mononitrate 60 mg oral tablet, extended release Start: 06/24/22 10:07:00 EST, 1 tab, PO, qAM Start Date: 06/24/22 Status: Ordered Klor-Con 10 Start: 06/24/22 10:08:00 EST, 10 mEq =, PO, bid, with lasix Start Date: 06/24/22 Status: Ordered lactobacillus acidophilus oral capsule Start: 08/21/22 10:19:00 EDT, 1 cap, PO, Daily Start Date: 08/21/22 Status: Ordered lisinopril 10 mg oral tablet Start: 06/24/22 10:09:00 EST, 1 tab, PO, Daily Start Date: 06/24/22 Status: Ordered melatonin Start: 06/24/22 10:09:00 EST, 5 mg =, PO, qhs Start Date: 06/24/22 Status: Ordered nitroglycerin Start: 08/21/22 10:20:00 EDT, 0.4 mg =, SL, q5min, PRN: as needed for chest pain Start Date: 08/21/22 Status: Ordered [place]-3 1000 mg oral capsule Start: 08/21/22 10:21:00 EDT, 1 cap, PO, Daily Start Date: 08/21/22 Status: Ordered oxyCODONE 5 mg oral tablet Start: 11/05/22 8:37:00 EDT, 5 mg =, PO, q4h, Disp# 20 tab, Refills: 0, PRN: pain - moderate (4-6),Pharmacy: [facility] Start Date: 11/05/22 Status: Ordered pravastatin 40 mg oral tablet Start: 06/24/22 10:10:00 EST, 1 tab, PO, qhs Start Date: 06/24/22 Status: Ordered ranolazine Start: 06/24/22 10:11:00 EST, 500 mg =, PO, bid Start Date: 06/24/22 Status: Ordered Rinvoq 15 mg oral tablet, extended release Start: 06/24/22 10:12:00 EST, 1 tab, PO, Daily, Supply Start Date: 06/24/22 Status: Ordered Senna 8.6 mg oral tablet Start: 06/24/22 10:12:00 EST, 1 tab, PO, qhs Start Date: 06/24/22 Status: Ordered Sutab oral tablet Start: 08/21/22 10:23:00 EDT, 0.5 tab, PO Start Date: 08/21/22 Status: Ordered Travatan Z Start: 06/24/22 10:12:00 EST, 1 drop, both eyes, qPM Start Date: 06/24/22 Status: Ordered Tylenol 500 mg oral tablet Start: 11/05/22 8:37:00 EDT, 2 tab, PO, q8h Start Date: 11/05/22 Status: Ordered Ultram 50 mg oral tablet Start: 11/05/22 8:38:00 EDT, 1 tab, PO, q8h, Disp# 21 tab, Pharmacy: [facility] Start Date: 11/05/22 Status: Ordered Vitamin B Complex with C Start: 08/21/22 10:13:00 EDT, 1 tab, PO, Daily Start Date: 08/21/22 Status: Ordered Vitamin C Start: 06/24/22 10:12:00 EST, 1,000 mg =, PO, Daily Start Date: 06/24/22 Status: Ordered Mental Status 11/04/22 Communication Barrier Present No Problem List Condition Confirmation Course Effective Dates Status Health St atus Informant Arthritis of knee, right Confirmed Active Atrial fibrillation Confirmed Active CAD (coronary artery disease) Confirmed Active Right knee pain Confirmed Active RA (rheumatoid arthritis) Confirmed Active Diagnosis Diagnosis Type Effective Dates Health Status Clinical Service Informant Acute pain Discharge Diagnosis 10/31/22 Non-Specified Right knee pain Discharge Diagnosis 11/04/22 Immunocompromised state Discharge Diagnosis 11/04/22 Presence of right artificial hip joint Discharge Diagnosis 11/04/22 Presence of artificial knee joint, bilateral Discharge Diagnosis 11/04/22 Rheumatoid arthritis Discharge Diagnosis 11/04/22 Procedures Procedure Date Related Diagnosis Body Site Status flush in knee right 1 03/2022 Com pleted achilles tendon right Com pleted Cataract bilateral Comple marcelo Colonoscope Completed Colostomy bag Completed Hernia Completed Hip replacement right x2 Completed Knee replacement left Com pleted Knee right tendon Complet ed Large intestine operation pa rtial removal Completed Prostate laser Completed Rotator cuff repair bi lateral Completed spine surgery x2 2 Comple marcelo stent x2 Completed 1flush in knee 2spine surgery Results Laboratory List Name Date Basic Metabolic Panel (BMP) 11/05/22 Complete Blood Count (CBC w Platelets) Hematocrit (Hct) 11/04/22 Cell Count, Fluid (FLD CELL COUNT) Fluid on Hold in Laboratory (EXTRA FLUID ) 11/04/22 Specimen Type (SPECIMEN TYPE) 11/04/22 Most recent to oldest [Refer ence Range]: 1 2 Fluid Container Specimen available f rom 0 to 3 days based on specimen stability. Please use addon order if you wish to order testing. *Unknown* (11/04/22 2:50 PM) eGFR CKD-EPI [>60 mL/min/1.73 m2] 67 mL/ min/1.73 m2 (11/05/22 7:49 AM) Estimated CrCl 67.01 mL/min (11/05/22 8:45 AM) MPV [9.0-12.2 fL] 9.9 fL (11/05/22 7:49 AM) RDW [11.5-14.2 %] 17.2 % *HI* (11/05/22 7:49 AM) Anion Gap [5-14 mmol/L] 14 mmol/L (11/05/22 7:49 AM) BUN [6-23 mg/dL] 23 mg/dL (11/05/22 7:49 AM) Ca [8.4-10.2 mg/dL] 8.4 mg/dL (11/05/22 7:49 AM) Cl- [98-107 mmol/L] 104 mmol/L (11/05/22 7:49 AM) HCO3 [22-29 mmol/L] 21 mmol/L *LOW* (11/05/22 7:49 AM) Cret [0.70-1.30 mg/dL] 1.12 mg/dL (11/05/22 7:49 AM) BF Source RIGHT 1 *Unknown* (11/04/22 2:50 PM) Nuc Cell,fl 126 /uL 2 (11/04/22 2:50 PM) RBC,fl 1000-46008 /uL (11/04/22 2:50 PM) Glu [74-109 mg/dL] 120 mg/dL 3 *HI* (11/05/22 7:49 AM) Hct [39-48 %] 33.6 % *LOW* (11/05/22 7:49 AM) 35.3 % *LOW* (11/04/22 5:54 PM) Hgb [13.0-17.0 g/dL] 10.6 g/dL *LOW* (11/05/22 7:49 AM) K [3.5-5.1 mmol/L] 4.1 mmol/L (11/05/22 7:49 AM) MCH [28-33 pg] 29.9 pg (11/05/22 7:49 AM) MCHC [32-36 g/dL] 31.5 g/dL *LOW* (11/05/22 7:49 AM) MCV [81-96 fL] 94.6 fL (11/05/22 7:49 AM) Na [136-145 mmol/L] 139 mmol/L (11/05/22 7:49 AM) Plts [150-350 K/uL] 172 K/uL (11/05/22 7:49 AM) RBC [4.40-5.60 M/uL] 3.55 M/uL *LOW* (11/05/22 7:49 AM) WBC [4.0-10.4 K/uL] 7.61 K/uL (11/05/22 7:49 AM) 1Result Comment: KNEE FLUID 2Result Comment: "The reference intervals and other method performance specifications are unavailable for this body fluid. Comparision of the result with concentration in the blood, serum or plasma isrecommended." 3Result Comment: ADA recommendation for FASTING Serum/Plasma Glucose: Normal: 70-100 mg/dL Prediabetes: 100-125 mg/dL Diabetes: 126 mg/dL or higher Orders for Microbiology Reports Name Date Anaerobe Culture, Tissue w Smear (CULTUR E,ANER(TISSUE)) 11/04/22 Tissue Culture w Smear (CULTURE, TISSUE) 11/04/22 Anaerobe Culture, Tissue w Smear (CULTUR E,ANER(TISSUE)) 11/04/22 Tissue Culture w Smear (CULTURE, TISSUE) 11/04/22 Anaerobe Culture w Smear, Fluid (CULTURE ,ANER(FLUID)) 11/04/22 Fluid Culture w Smear (CULTURE, FLUID) Microbiology Reports TEST:Anaerobe.Culture, Tissue STATUS:Unauthenticated BODY SITE: SOURCE:Tissue COLLECTED DATE/TIME:11/04/22 3:01 PM Culture NO GROWTH 3 DAYS TEST:Tissue.Cx STATUS:Auth (Verified) BODY SITE: SOURCE:Tissue COLLECTED DATE/TIME:11/04/22 3:01 PM Status FINAL 11/07/2022 TEST:Anaerobe.Culture, Tissue STATUS:Unauthenticated BODY SITE: SOURCE:Tissue COLLECTED DATE/TIME:11/04/22 3:00 PM Culture NO GROWTH 3 DAYS TEST:Tissue.Cx STATUS:Auth (Verified) BODY SITE: SOURCE:Tissue COLLECTED DATE/TIME:11/04/22 3:00 PM Culture NO GROWTH 3 DAYS TEST:Anaerobe.Culture, Fluid STATUS:Unauthenticated BODY SITE: SOURCE:Synovial Fluid COLLECTED DATE/TIME:11/04/22 2:50 PM Culture NO GROWTH 3 DAYS TEST:Fluid.Cx STATUS:Auth (Verified) BODY SITE: SOURCE:Synovial Fluid COLLECTED DATE/TIME:11/04/22 2:50 PM Status FINAL 11/07/2022 Radiology Reports * Exam Date Time Procedure Performing Provider Status 11/04/22 6:33 PM XR Knee 1 or 2 Views Right Lucila Ward; Final Notes: (XR Knee 1 or 2 Views Right) Reason For Exam: Knee Replacement Surgery; Post Op TKA XR Knee 1 or 2 Views Right EXAMINATION: XR Knee 1 or 2 Views Right CLINICAL HISTORY: Knee Replacement Surgery; Post Op TKA COMPARISON: Outside knee radiographs from 06/24/2022 FINDINGS: Nonweightbearing AP and lateral views of the knee are provided. The patient has undergone total knee replacement. The knee is anatomically aligned, and no fractures are seen. Post surgical changes are present in the soft tissues. Skin marcello are in place. IMPRESSION: Baseline, status post total knee replacement. No immediate complications. Workstation ID: [id number] Final Dictated by:MD Tirado Carissa Dictated DT/TM:11/04/2022 6:37 Signed by:MD Tirado Carissa Signed (Electronic Signature):11/04/2022 6:36 p Vital Signs Most recent to oldest [Reference Range]: 1 2 3 Height 182.80 cm (11/04/22 12:45 PM) Patient Weight 101.6 kg (11/04/22 12:45 PM) Body Mass Index 30.4 kg/m2 (11/04/22 12:45 PM) Temperature [36.5-37.9 DegC] 36.1 DegC *LOW* (11/05/22 8:04 AM) 36.1 DegC *LOW* (11/05/22 4:58 AM) 36.1 DegC *LOW* (11/04/22 11:40 PM) Heart Rate 71 bpm (11/05/22 8:04 AM) 63 bpm (11/05/22 4:58 AM) 75 bpm (11/04/22 11:42 PM) Respiratory Rate 16 br/min (11/05/22 8:04 AM) 16 br/min (11/05/22 4:58 AM) 17 br/min (11/04/22 11:40 PM) Blood Pressure 133/78mmHg (11/05/22 8:04 AM) 148/80mmHg (11/05/22 4:58 AM) 136/77mmHg (11/04/22 11:40 PM) Mean Blood Pressure 93 mmHg (11/05/22 8:04 AM) 77 mmHg (11/04/22 11:40 PM) 100 mmHg (11/04/22 9:45 PM) Cuff Pulse Pressure 55 mmHg (11/05/22 8:04 AM) 68 mmHg (11/05/22 4:58 AM) 59 mmHg (11/04/22 11:40 PM) BP Location # 1 Right Arm (11/05/22 8:04 AM) Right Arm (11/05/22 4:58 AM) Left Arm (11/04/22 11:40 PM) Social History Social History Type Response Smoking Status Never smoked cigaret afshan Sex Male Implantable Device List Procedure Provider Procedure Date Device Type Site Unknown Unknown 11/04/22 Unknown Unknown Device Identifier Serial Number Lot or Batch Number Manufacturing Date Expiration Date Distinct Identification Code MRI Safety Implantable Status Assigning Authority Unknown Unknown [id number] Unknown 04/07/25 Unknown Unknown Active Unk nown Unknown Unknown [id number] Unknown 01/05/31 Unknown Unknown Active Unkn own Unknown Unknown [id number] Unknown 08/05/32 Unknown Unknown Active Unknown Unknown Unknown [id number] Unknown 06/07/27 Unknown Unknown Active Unknown Unknown Unknown [id number] Unknown 08/05/26 Unknown Unknown Active Unkn own Discharge instructions * JOSE Cartwright, Eloina M: PERFORM, MODIFY Stefano RN, Lisset: MODIFY Event Display: Patient Discharge Instructions Authored Date: [id number] RAFY CHICAS :1945 Visit Date:11/04/2022 Patient Discharge Instructions [facility] For medical concerns, call: . Date of Admission:11/04/2022 Date of Discharge:11/05/2022 Physician:MD Kern Charles M Service:Orthopaedic Surgery Discharge Disposition:home . Advance Directive:Living will Reason for Hospitalization Right knee pain Your Diagnoses Right knee pain Rheumatoid arthritis Immunocompromised state Presence of right artificial hip joint Presence of artificial knee joint, bilateral Acute pain My Outside.in Patient Portal: [employer] makes it easy for you to manage your health information online. [employer] is a free service that provides you instant, secure access to your medical information anytime, anywhere. Sign in or set up your account today at [email or web address] Thank you for allowing us to assist you with your healthcare needs. Medications What How Much When Instructions Next Dose New doxycycline (doxycycline hyclate 100 mg oral capsule) 1 cap by mouth 2 times daily Duration: 4 week(s) Refills: 1 Pickup at [facility] Take at 9pm today then tomorrow at 9am New traMADol (Ultram 50 mg oral tablet) 1 tab(s) by mouth Every 8 hours Pickup at [facility] Take today at 2:30pm Changed acetaminophen (Tylenol 500 mg oral tablet) 2 tab(s) by mouth Every 8 hours take today at 5pm Changed oxyCODONE (oxyCODONE 5 mg oral tablet) 5 Milligram by mouth Every 4 hours as needed for pain - moderate (4-6) Pickup at [facility] can take at any time Unchanged amiodarone (amiodarone 200 mg oral tablet) 1 tab(s) by mouth Once daily Unchanged apixaban (Eliquis 2.5 mg oral tablet) 1 tab(s) by mouth 2 times daily Unchanged ascorbic acid (Vitamin C) 1,000 Milligram by mouth Once daily Unchanged ascorbic acid/ chondroitin/ glucosa/ catherine (ascorbic acid/ chondroitin/ glucosamine/ manganese 20 mg-400 mg-500 mg-2 mg oral capsule) 1 tab(s) by mouth Once daily Unchanged aspirin 81 Milligram by mouth Once daily Unchanged DULoxetine (DULoxetine 30 mg oral delayed release capsule) 2 cap by mouth Once daily Unchanged esomeprazole (esomeprazole 40 mg oral delayed release capsule) 1 cap by mouth Once daily Unchanged furosemide (furosemide 20 mg oral tablet) 1 tab(s) by mouth Once daily as needed for prn Unchanged gabapentin (gabapentin 100 mg oral capsule) 1 cap by mouth 3 times daily Unchanged isosorbide mononitrate (isosorbide mononitrate 60 mg oral tablet, extended release) 1 tab(s) by mouth Once a day (in the morning) Unchanged lactobacillus acidophilus (lactobacillus acidophilus oral capsule) 1 cap by mouth Once daily Unchanged lisinopril (lisinopril 10 mg oral tablet) 1 tab(s) by mouth Once daily Unchanged magnesium sulfate/ potass Cl/ sodium sulf (Sutab oral tablet) 0.5 tab(s) by mouth Unchanged melatonin 5 Milligram by mouth At bedtime Unchanged multivitamin (Vitamin B Complex with C) 1 tab(s) by mouth Once daily Unchanged multivitamin with minerals (ICaps with Lutein and Zeaxanthin) 1 tab(s) by mouth Once daily Unchanged nitroglycerin 0.4 Milligram sublingually Every 5 minutes as needed for as needed for chest pain Unchanged omega-3 polyunsaturated fatty acids ([place]-3 1000 mg oral capsule) 1 cap by mouth Once daily Unchanged omega-3 polyunsaturated fatty acids-ubiquinone (CoQmax [place] 100 mg oral capsule) 1 cap by mouth Once daily Unchanged potassium chloride (Klor-Con 10) 10 Milliequivalent by mouth 2 times daily with lasix Unchanged pravastatin (pravastatin 40 mg oral tablet) 1 tab(s) by mouth At bedtime Unchanged ranolazine 500 Milligram by mouth 2 times daily Unchanged senna (Senna 8.6 mg oral tablet) 1 tab(s) by mouth At bedtime Unchanged travoprost ophthalmic (Travatan Z) 1 Drops in both eyes Every evening Unchanged upadacitinib (Rinvoq 15 mg oral tablet, extended release) 1 tab(s) by mouth Once daily Hold for 2 weeks after surgery. take on 11/18/22 Pharmacy Information [facility]: [address] [place] [address] ISREAL Linder [phone] Allergies No Known Medication Allergies What to do next Instructions From Your Doctor General Instructions: Wound care: Remove the Aquacell dressing 14 days after you are discharged from [facility], unless otherwise directed. Once the Aquacell dressing has been removed you may cover your incision with dry gauze and tape as needed. You may shower with the Aquacell in place (do net let water hit the dressing directly). Do not soak in a bathtub, hot tub, or pool until your surgeon tells you that you may do so. Once Aquacell dressing is removed, do not get incision with marcello wet. Do not remove the marcello. If you do shower, please cover the wound to keep dry. Marcelo Hose: Wear the marcelo hose/stockings for the next two weeks as tolerated. They can be removed at night whilein bed, and put back on in the morning. Pain Medicine Tylenol 1000mg three times per day Tramadol 50mg three times per day A narcotic has been prescribed: You will take this medication every 4-8 hours as needed for severe painnot relieved by the other pain medications. Do not drive while on pain medication. Please discontinue the narcotic medication as soon as possible due to adverse effects which can include: sedation, respiratory depression, constipation, and dependence. Please take over the counter stool softeners while taking pain medication to prevent constipation If you notice you are running low on narcotic medication please call theoffice at least 48 hours prior to running out. The clinic will need that much time to get you more medications especially if on a Thursday Acute Pain Nerve Block Instructions: The nerve block infusion is part of your plan for pain control. The pump is infusing numbing medication around the nerve that leads to where you had surgery. Once the infusion is complete, turn the pump off and remove the nerve catheter from your skin. Some leaking may occur from the site. Place a band aid or gauze dressing if necessary. If removing is difficult, contact the Acute Pain team. Any questions or concerns regarding the nerve catheter or infusion pump, contact the Acute Pain team at [facility] at pager #[phone]. Please note, if you develop shortness of breath, ringing in the ears, or metallic taste in your mouth during the infusion, stop the infusion and immediately call the Acute Pain team. Anticoagulation: Resume Eliquis2.5mg twice daily as you were prior to surgery. Ask your physician prior to taking Non-steroidal Anti-inflammatories while on this medication. ANTIBIOTICS: doxycycline monohydrate 100 mgtwice dailyfor an estimated4-6 weeks If you are sent home on antibiotics finish the entire dose. We recommend that you take a probiotic such as Florajen Digestion while you are on antibiotics to help prevent stomach upset. You will need to haveweekly Thursday labsdrawn to include (CBC with diff, BMP, ESR, quantitative CRP; Vancomycin trough if takingVancomycin, LFTs if takingrifampin, CPK if takingdaptomycin). Please have the results faxed to the orthopedic infectious disease clinic [phone]. PICC care, lab draws, antibiotics and daily dry dressing changes per nursing protocol. Hold your Rinvoq for 2 weeks after surgery. If you notice the following symptoms Call 911 if you experience shortness of breath or chest pain. Please call the orthopedic clinic at [phone] if you experience the followin) Redness aroundincision 2) Drainage around the incision 3) Fever greater than 101.5 F 4) Pain not controlled by your medications Contact our Careline at . If unable to contact your physician and you feel it is an emergency, go to the nearest Emergency Room or call 911 Diet Instructions Resume a healthy diet at home to encourage healing. Stay well hydrated by drinking plenty of water or drinks that contain electrolytes/vitamins. Activity Instructions Weight Bearing Leg, Right, Weight Bearing As Tolerated Activity: You may bear weightas tolerated on your operative leg. Please schedule first physical therapy visit within 1-2days of discharge from [facility].You should continue physical therapy for range of motion(goal 0-100 degrees by 3 weeks aftersurgery), strength training, endurance and gait training. You should perform your exercises as outlined by our physical therapists at least two to three times a day. Ice your knee for 30 minutes after exercise. Follow-Up Appointments Scheduled Follow-Up Appointments Date/Time:Provider/Resource: Nov 01:30 ISREAL Rolle Jennifer R Location/Instructions:Please arrive 15 minutes prior to your appointment time with [facility], [facility], [address], [facility] [address] Date/Time:Provider/Resource: Dec 12:45 MD Mcnair Charles M Location/Instructions:[facility], [address], [address], [address], [facility] [address] The Following Services Have Been Arranged for You No Post-Acute Placement(s) Listed No Post-Acute Service(s) Listed Tests Pending Anaerobe Culture, Fluid Anaerobe Culture, Tissue Anaerobe Culture, Tissue To obtain results pending at hospital discharge, call and ask for the following Physician:MD Erlin, Manjit Franklin Procedures Performed Peripheral Nerve Block 11/04/2022 Total Knee Arthroplasty, Right 11/04/2022 Special Instructions Common Emergency Awareness Tips Call 911 immediately if: experiencing any of the warning signs and symptoms of stroke: B.E. F.A.S.T. Balance: is there trouble with walking or coordination Eyes: is there double vision or visual loss Face: Smile, do both sides of face move equally Arm: Raise arms, do both arms move equally Speech: Is speech slurred or inappropriate Time: Time is critical, call 911 immediately Heart Attack Signs Chest discomfort: Most heart attacks involve discomfort in the center of the chest and lasts more than a few minutes, or goes away and comes back. It can feel like uncomfortable pressure, squeezing, fullness or pain. Discomfort in upper body: Symptoms can include pain or discomfort in one or both arms, back, neck, jaw or stomach. Shortness of breath: With or without discomfort. Other signs: Breaking out in a cold sweat, nausea, or lightheaded. Remember, MINUTES DO MATTER. If you experience any of these heart attack warning signs, call to get immediate medical attention! [employer] Nerve Block Instructions How Does my Nerve Block Work? Nerve blocks are to help with pain after surgery. You might also have prescriptions for non-opioid and opioid medications. You may be asked to take non-opioid medication around the clock and only use opioid medications as needed. The pump has only a local numbing medicine.It will last 2-3 days. A limb that is numb or cannot be moved for 8-24 hours after surgery is normal. Do not worry, the nerve block will wear off slowly. Call the number at the bottom of the page if: Signs of too much numbing medicine: metallic taste, ringing in the ears, tingling around the lips, confusion, and unclear speech Rash or hives, fever greater than 101.5o, F or uncontrolled pain, bleeding, swelling, or redness atthe catheter site If you noticed the catheter has moved or system is leaking Numbness or weakness that lasts for more than 12 hours after the catheter is removed Unacceptable pain level. Instructions: Do not get the pump wet. Do not have the pump in very high or low temperature You may not feel cold, heat, or pressure as you normally would, so be careful. Do not let your limbtouch anything that may hurt it. Rest your limb on a pillow if able and your surgical team allows. If you are having pain, you may be able to use a bolus (blue) button and press it. It will take 15-20 minutes for it to improve pain. The pump will not give more medicine than allowed. If your pain does not get better or you do not have the bolus function then you may take your pain medication as prescribed. You should not take opioid pain medicine if your pain is improved as you could have unwanted side effects. Activity Instructions: You may do your physical therapy as instructed You may sponge bathe.Showering might move the catheter. Do not get the site wet. Should I Be Worried? If bubbles are in the tubing, they will not hurt you You may see some clear fluid around the catheter site. This is normal and extra gauze may be used over original bandage.If you see the pump or tubing leaking, call the phone number listed below. If the clear bandage comes off and the insertion site is not covered then the catheter should be taken out. If having signs of too much medicine or site is too numb, you should turn off your pain pump. Pressthe red and green stop/start button. To restart once feeling returns, press the button again. Removal of Nerve Block: 1. Wash your hands 2. Close the clamp to stop the medicine 3. Take the bandage and tape off the skin 4. Slowly remove the catheter by pulling from the skin (it should come out easily). Skin glue at the site may make the initial tug resistant and is not uncommon 5. If there is any resistance, pain, or tingling, STOP. Call the numbers below 6. Place pressure and a bandage on the site 7. If you have bleeding, swelling, or redness please call the numbers below [facility] 24 hour Support Hotline: To call the [facility] Anesthesia service, call [phone] & ask for the Acute Pain resident, pager # [phone] The [facility] team will call daily. They will ask you about your pain. The phone call may come froman out of state number. Please keep the box with you until the medicine is finished, then follow the directions on the box and mail it back (postage paid). For more information regarding peripheral nerve blocks please see Continuous Peripheral Nerve Block Infusion Self-Care and Peripheral Nerve Block in [employer]Care. Revised November 2020- Information obtained from [facility] Anesthesiology procedure note * MD Margarito, Lane: MODIFY, MODIFY, SIGN, VERIFY DO Isbell Nola: PERFORM, SIGN DO Isbell Nola: SIGN Event Display: Anes Acute Pain Procedure Note Authored Date: Patient: RAFY CHICAS Age: 76 years Sex: Male : 1945 Associated Diagnoses: None Author: DO Isbell Nola Adductor Canal Block performed in PACU on 11/04/2022 Health Status Allergies: Allergic Reactions (Selected) No Known Medication Allergies, Allergies (1) Active Reaction No Known Medication Allergies None Documented . Current Medication: (Selected) Inpatient Medications Ordered Colace: 100 mg, PO, bid DULoxetine: 60 mg, PO, Daily Dulcolax Laxative (vegetable base) 10 mg rectal suppository: 10 mg, 1 supp, [place], Daily, PRN: constipation 2nd line Eliquis: 2.5 mg, PO, bid Florajen Digestion: 1 cap, PO, Daily InfuBLOCK Pain Pump: 1 each, perineural, As indicated Kefzol: 2,000 mg, 50 mL, 100 mL/HR, IV, To OR Kefzol: 2,000 mg, 50 mL, 100 mL/HR, IV, q8h Melatonin: 5 mg, PO, qhs Milk of Magnesia: 30 mL, PO, Daily, PRN: constipation 1st line Mylanta: 30 mL, PO, qid, PRN: heartburn Toradol: 15 mg, IV Push, q6h, PRN: pain - severe (7-10) Tylenol: 1,000 mg, PO, q8h Ultram: 50 mg, PO, q8h Vitamin C: 1,000 mg, PO, Daily Zofran: 4 mg, IV Push, q6h, PRN: nausea 1st line amiodarone: 200 mg, PO, Daily aspirin: 81 mg, PO, Daily gabapentin: 100 mg, PO, tid isosorbide mononitrate extended release: 60 mg, PO, qAM lansoprazole: 30 mg, PO, Daily latanoprost 0.005% ophthalmic solution: 1 drop, both eyes, qhs lisinopril: 10 mg, PO, Daily multivitamin: 1 tab, PO, Daily nitroglycerin: 0.4 mg, SL, q5min, PRN: chest pain oxyCODONE: 5 mg, PO, q4h, PRN: pain - moderate (4-6) pravastatin: 40 mg, PO, qhs ranolazine: 500 mg, PO, bid ropivacaine 0.2% InfuBLOCK Infusion Pump 500 mL: 6 mL/HR, perineural, Stop: 12/04/22 5:59:00 EDT senna: 8.6 mg, PO, qhs vancomycin: 1,500 mg, 500 mL, 333.33 mL/HR, IV, ONCE Documented Medications Documented CoQmax [place] 100 mg oral capsule: 1 cap, PO, Daily DULoxetine 30 mg oral delayed release capsule: 2 cap, PO, Daily Eliquis 2.5 mg oral tablet: 1 tab, PO, bid ICaps with Lutein and Zeaxanthin: 1 tab, PO, Daily Klor-Con 10: 10 mEq, PO, bid, with lasix [place]-3 1000 mg oral capsule: 1 cap, PO, Daily Rinvoq 15 mg oral tablet, extended release: 1 tab, PO, Daily Senna 8.6 mg oral tablet: 1 tab, PO, qhs Sutab oral tablet: 0.5 tab, PO Travatan Z: 1 drop, both eyes, qPM Vitamin B Complex with C: 1 tab, PO, Daily Vitamin C: 1,000 mg, PO, Daily acetaminophen: 650 mg, PO, bid amiodarone 200 mg oral tablet: 1 tab, PO, Daily ascorbic acid/chondroitin/glucosamine/manganese 20 mg-400 mg-500 mg-2 mg oral capsule: 1 tab, PO, Daily aspirin: 81 mg, PO, Daily esomeprazole 40 mg oral delayed release capsule: 1 cap, PO, Daily furosemide 20 mg oral tablet: 1 tab, PO, Daily, PRN: prn gabapentin 100 mg oral capsule: 1 cap, PO, tid isosorbide mononitrate 60 mg oral tablet, extended release: 1 tab, PO, qAM lactobacillus acidophilus oral capsule: 1 cap, PO, Daily lisinopril 10 mg oral tablet: 1 tab, PO, Daily melatonin: 5 mg, PO, qhs nitroglycerin: 0.4 mg, SL, q5min, PRN: as needed for chest pain oxyCODONE 5 mg oral tablet: 1 tab, PO, q6h, PRN: as needed for pain, 0 Refill(s) pravastatin 40 mg oral tablet: 1 tab, PO, qhs ranolazine: 500 mg, PO, bid. Problem List: Medical Arthritis of knee, right / SNOMED CT 2624329117 / Confirmed Atrial fibrillation / SNOMED CT 29993065 / Confirmed CAD (coronary artery disease) / SNOMED CT 08833793 / Confirmed Right knee pain / SNOMED CT 5339816419 / Confirmed RA (rheumatoid arthritis) / SNOMED CT 684023642 / Confirmed All Problems Arthritis of knee, right / SNOMED CT 8552635981 / Confirmed Atrial fibrillation / SNOMED CT 12333688 / Confirmed CAD (coronary artery disease) / SNOMED CT 42286227 / Confirmed Right knee pain / SNOMED CT 6407200221 / Confirmed RA (rheumatoid arthritis) / SNOMED CT 338921889 / Confirmed. Procedure Assessment VS/Measurements: Vital Signs 11/04/2022 20:45 EDT Heart Rate 71 bpm Respiratory Rate 13 br/min Systolic Blood Pressure 135 mmHg Diastolic Blood Pressure 87 mmHg BP Location # 1 Left Arm BP Cuff Size Regular Mean Blood Pressure 100 mmHg Cuff Pulse Pressure 48 mmHg Oxygen Flow 2 L/min Oxygen Therapy Nasal cannula ETCO2 39 mmHg SpO2 98 % Monitor Rhythm Normal sinus rhythm . Assessment: Procedure Date: 11/04/2022. Consent for regional Procedure: Yes. Pain Assessment: Pain Location: Knee, Right. Acute Pain Procedure Procedure Location: PACU. Timing of Procedure: Post Op. Correct Site/Side Identified/Marked: Yes. Patient Monitored: Yes. Oxygen Available: Yes. Time Out Complete: Yes. Sterile field established: Yes. Ultrasound probe covered with sterile sleeve as indicated: Yes. Nerve identified and examined with ultrasound: Yes. Needle advanced to desired location under ultrasound guidance: Yes. Ultrasound image stored in PACS: Yes. Procedure Start Time: 11/05/2022 20:38:00. Procedure End Time: 11/05/2022 20:48:00. Attending Present: Yes. Anesthesiologist: MD Pimentel Elie. Referring Physician: MD Kern Charles M. Patient Awake and Alert: Yes. Peripheral Block + Block: Primary. Patient Position: Supine. Block Location: Knee, right. Laterality: Right. Sedation: None. Skin Preparation: Chlorhexidine. Needle Type: Short Bevel/Stimulating. MRI Compatible: No. Local Infiltration: Yes. Technique: Continuous Catheter. Block Description: Adductor Canal. Nerve Localization Technique: Ultrasound. # of attempts: 1 . Aspiration: None. Medication Injected: PowerOrders Pharmacy: ropivacaine 0.5% (Order): 10 mL, perineural, ONCE. Fractionated Dose: 5 mL. Total Volume Injected: 10 mL. Parasthesia: No. Block Complications: No. Professional Services Resident/Fellow/CONTACT LENS CUTTER: DO Isbell Nola. Acute Pain Procedure For Post Op Pain Management: Yes. If yes, Referring Physician: MD Kern Charles M. Physician Attestation: I was present for the lubin portions of the procedure and was immediately available for the remainder of the procedure.. Anesthesia Hospital Charge AdHoc Form: Regional Anesthesia Section Completed: Yes. Electronic Signature on File Electronically Reviewed/Signed by: Nadia Isbell DO Author Signature Dt/Tm:11/05/2022 01:36 AM Resident Department of Anesthesia Electronically Reviewed/Signed by: Lane Pimentel MD, Cosigner Signature Dt/Tm: 11/05/2022 02:25 PM Microbiology Coordinator Department of Anesthesiology and Perioperative Medicine [facility] [place] Note * MD Hoffmann Ariel: PERFORM, MODIFY Event Display: Brief Operative Note Authored Date: [id number] BRIEF OPERATIVE NOTE Name: RAFY CHICAS Patient Number: [id number] : 1945 Date of Service: 11/04/2022 Pre-op Diagnosis: Right knee osteoarthritis Post-op Diagnosis: Same Procedure: Right TKA Surgeon: Mercedes Kern Assistants: Mercedes Hoffmann; MS Pollo-4; [place] Bill Anesthesia: GETA with local Estimated Blood Loss: 300mL Less than 50ml Drains: None Fluids: 600mL crystalloid Urinary Output: Not recorded, no [place] Condition: Extubated, stable to PACU Complications: None apparent Specimen: x None Findings: right knee OA Check one Pharmacologic VTE prophylaxis not indicated x Standard VTE prophylactic regimen ordered Pharmacologic VTE prophylaxis contraindicated due to increased risk of intraoperative and / or postoperative bleeding Check one No antibiotics indicated x Standard prophylactic antibiotic regimen ordered Antibiotic regimen changed due to concern for infection ASSESSMENT AND PLAN: 76M with right knee OA s/p TKA. Weight bearing- WBAT RLE Physical Therapy- ordered DVT prophylaxis- apixaban 2.5mg bid starting POD #1 Antibiotics- cefazolin x24hr Pain control- PO Tylenol, PO tramadol, PRN Oxycodone, PRN ketorolac Drain- none Imaging- pending in PACU Labs- f/u AM labs Home Medications- restarted Diet/GI- ADAT, bowel regimen - f/u void Dispo- floor status, OPIB; pending pain control, PT/OT, postoperative void Please page Ortho Joints p2006 with questions. Electronic Signature on File Electronically Reviewed/Signed by: Jose De Jesus Hoffmann MD Author Signature Dt/Tm:11/04/2022 05:37 PM Resident Division of Orthopaedics [place] ID Ortho Inpt Consult * MD Angelika, Ngoc Navarro: PERFORM, MODIFY, MODIFY, MODIFY, MODIFY, MODIFY, MODIFY, MODIFY, MODIFY, MODIFY, MODIFY, MODIFY Event Display: ID Ortho Inpt Consult Authored Date: [id number] ID ORTHO INPATIENT CONSULTATION REPORT ID attending Name: RAFY CHICAS Patient Number: [id number] : 1945 Date of Admission: 11/04/2022 Date of Service: 11/04/2022 REQUESTING PHYSICIAN'S NAME: MD Kern Charles M REASON FOR CONSULTATION: _ recommendations for antimicrobial management following primary TKA in setting of septic seneca knee March 2022 and RA ASSESSMENT: _ History septic seneca R knee March 2022: no clear organism identified-> most likely organisms are Staph species,(S. epi and S. aureus) and Strep. -competed empiric therapy with vanco and cefepime -with negative SF aspirate August 2022 off antibiotics History Rheumatoid arthritis - last on upadacitinib(Rinvoq), was on tocilizumab(Actemra) when admitted March 2022 RECOMMENDATIONS: _ 1 ) _ complete cefazolin for surgical prophylaxis 2 ) _ follow up cultures of samples sent from OR today. Gram stains of all 3 are without organisms 3 ) _ if OR samples are negative, recommend doxycycline monohydrate 100 mg bid for duration TBD, est 4-6 weeks He will need to be extra cautious with sun exposure on doxycycline 4) _ I see the plan for Rinvoq was to hold it for 3 days prior to today's surgery.( pre-op H and P 08/21/22)Patient states off x 1 week I do not know what the plan is for resuming treatment for RA post op. Ngoc Carney MD Juvenile Detention Officer Division of Infectious Diseases [facility] [phone] office [phone] fax [facility] or pager [phone] Reviewing notes, cultures, lab results. imaging, medications doses,etc xx minutes Discussing patient with ID fellow, resident, student or HEBERT on our team 15 minutes Interviewing(if possible), examining and sometimes counseling patient xx minutes Conversation with family or other permitted surrogate xx minutes Reviewing imaging with Radiologist or tests with Microbiology/Pathology, etc xx minutes Discussing thoughts and plans with primary team and other consultants 30 minutes Composing (or reviewing and editing) and finalizing this EMR note, which involves reviewing updated notes, cultures, imaging meds,etc. Total= 60 minutes on day of encounter HPI: _ -76 yo M with PMH significant for CAD, CHF, Afib, HTN, glaucoma, GERD, RA and OA -admitted to [facility] in [facility] 03/12/22 with AMS , failure to thrive -notes indicate he was on tocilizumab(Actemra) and prednisone for RA at that time -prednisone had been started beginning of March for R knee pains -had presented to ED in [place] 03/10/22 after knee gave out -he had elevated CRP of 6.6 (<1) though WBC normal. -also checked urine for GC and chlamydia-> negative -discharged home after receiving Toradol, Solu-Medrol and morphine for knee pain -returned to ED in [place] 03/12/22 -daughter came to [place] and found him confused and incontinent -had AF with RVR on presentation -1 blood culture on presentation was + for coag. neg. Staph -second set of blood cultures had GNR that lab could not identify -subsequently found to have septic R knee -had R knee aspirated 03/13-> 45 K total nucleated cells-> NO CULTURE SENT from syn. fluid -ID consult recommended IV vancomycin and cefepime as empiric treatment for septic seneca joint - noted to have significant thrombocytopenia during admission( PLTs of 49,83, 133) -also received doxycycline until tick borne illness panel returned negative -OR on 03/19 for arthroscopic I and D R knee -tissue cultures sent from OR 03/19-> negative but had been on empiric vanc and cefepime prior to OR samples -ID plan was 4 weeks IV vanco and cefepime for septic seneca joint -he was discharged to a rehab facility -next moved to [facility] near his family in [place], [place] area -had ongoing R knee pain, saw ortho in [place] -Dr Tamayo referred patient to Dr. Kern [place] [facility] [place]on 07/25/22 he had a synovial fluid aspiration by Dr. Kern -Total nucleated cell count was 159 and the culture was sterile -He was subsequently scheduled for primary TKA -his procedure had to be rescheduled because of a recent R hip dislocation that was reduced in OR at [facility] -re: RA now followed by Dr. 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 -past history of a patellar tendon rupture about 10 years ago , required multiple surgeries and also developed an infection.2 sutures were found to be involved in the infection -receiving cefazolin for surgical prophylaxis and a single dose of vancomycin PAST MEDICAL HISTORY: Problems: Atrial fibrillation CAD (coronary artery disease) Right knee pain Arthritis of knee, right RA (rheumatoid arthritis) Hospital Day: 0 Surgical Hospital Day/Procedure: POD#: 0 - Peripheral Nerve Block MEDICATIONS: Active Inpt Meds: ceFAZolin (Kefzol) 2,000 mg IV To OR senior medical writer (InfuBLOCK Pain Pump) 1 each perineural As indicated Active PRN Meds: None Active IV Meds: Lactated Ringers Injection 1,000 mL (LR 1,000 mL) 1,000 mL 30 mL/HR ropivacaine 500 mL (ropivacaine 0.2% InfuBLOCK Infusion Pump 500 mL) 500 mL 6 mL/HR Allergies and Sensitivities: No Known Medication Allergies SOCIAL HISTORY: _ nonsmoker FAMILY HISTORY: _ noncontributory to current issue ROS: (Jae with an X to the left of the System if asked and negative; otherwise detail under Symptoms) System Symptoms (details) _ x Constitutional _ _ Eyes _ hx glaucoma _ x Ears, Nose, Mouth, Throat _ _ Cardiovascular _ hx afib, htn,hl _ x Respiratory _ _ x Genitourinary _ _ x Gastrointestinal _ _ Musculoskeletal _ see HPI and also history of R FRANCIS; s/p recent dislocation reduced in OR _ Skin _ believes had a skin infection or cellulitis R leg, HERB GROWER in March 2022 _ x Neurologic _ _ x Psychiatric _ _ x Endocrine _ _ Hematologic/Lymphatic _ had thrombocytopenia when acutely ill 2021 _ Allergic/Immunologic _ no known allergies to antibiotics VITAL SIGNS AND EXAM: Vitals: Last Updated 11/04/22 12:04 Weights: Last Updated 11/04/22 12:45 Date Temp Pulse BP RR SpO2 FIO2 Date Wt(kg) Wt(lb) 11/04 12:04 36.5 93 131/87 18 100 RA 11/04 12:45 101.6 224 11/04 12:45 101.6 224 24 Hr Tmax: 36.5 at 11/04 12:04 36 Hr Tmax: 36.5 at 11/04 12:04 Vital Signs are the last 5 in the past 48 hours. Weights display the last 5 within 7 days. Initial Wt: 11/04 101.6 kg 224 lb No I and O Data Available EXAM: General Appearance: _ semi-reclining on litter in PACU daughter at bedside HEENT: _ NC AT sclerae anicteric, nasal O2 in place Neck: _ supple skin: _ evidence of photo damage, AKs noted Lungs: _ clear to auscultation anteriorly Chest: _ normal work of breathing Heart: _ sounds RRR AP 80's Abdomen: _ quiet soft Extremities: _ RLE with ice bag draped over knee, Aquacel dressing in place without strike through Neurologic: _ alert and conversant LABS: done 08/12/22 at [facility] ordered by ortho joints at [facility] WBC 4.28 H/H 12.8/39.1 PLTs 293 ESR 5 CRP <0.5 RELEVANT IMAGIN/30 x-ray R knee s/p total knee replacement no immediate complications RELEVANT CULTURES: 07/25/22 SF aspirate R knee negative 08/21/22 nasal FEW STAPHYLOCOCCUS AUREUS (SENSITIVE TO OXACILLIN) NO METHICILLIN RESISTANT STAPHYLOCOCCUS AUREUS ISOLATED 11/04/22 syn. fluid R knee NO ORGANISMS SEEN NO POLYMORPHONUCLEAR LEUKOCYTES SEEN tissue R knee # 1 NO ORGANISMS SEEN FEW PMNS tissue R knee #2 NO ORGANISMS SEEN NO POLYMORPHONUCLEAR LEUKOCYTES SEEN Electronic Signature on File CC: Manjit Kern III, MD, PhD [address] [facility] [address] CC: Jose De Jesus Hoffmann MD [address] [place] [address] [address] [facility] [address] Electronically Reviewed/Signed by: Ngoc Carney MD Author Signature Dt/Tm:11/04/2022 09:01 PM Division of Infectious Disease and Epidemiology MAS History and physical note * MD Erlin, Manjit Franklin: PERFORM Event Display: H&P Update Authored Date: [id number] SURGICAL HISTORY AND PHYSICAL UPDATE - WITH CHANGES Name: RAFY CHICAS Patient Number: [id number] : 1945 Date of Service: 11/04/2022 Patient identity, procedure and procedure site were identified by me, the attending physician. I have personally seen and examined the patient. The History and Physical was reviewed. I have confirmedthat the necessity for the procedure is still present, however the following changes have occured since the H&P was completed. History Changes: pneumonia resolved, hip dislocation reduced Physical Exam changes: _ Electronic Signature on File Electronically Reviewed/Signed by: Manjit Kern III, MD, PhD Author Signature Dt/Tm:11/04/2022 01:27 PM Professor, Orthopaedics [facility] [address] [place] [address], [place] [address] CMD * MD Tatiana, Anthony: MODIFY, PERFORM, SIGN, VERIFY Event Display: Anes H&P Authored Date: [id number] Patient: RAFY CHICAS Age: 76 years Sex: Male : 1945 Associated Diagnoses: None Author: MD Simpson Ilker Preoperative Information Pre-Operative Diagnosis: Septic arthritis . Anesthiesia Preop Info: Procedure: TOTAL RIGHT KNEE ARTHROPLASTY Date: 11/04/22 13:50 Surgeons: MD Kern Charles M Diagnosis: RIGHT POST-SEPTIC ARTHRITIS KNEE Procedure: TOTAL RIGHT KNEE ARTHROPLASTY Date: 11/04/22 13:50 Surgeons: MD Kern Charles M Diagnosis: RIGHT POST-SEPTIC ARTHRITIS . History of Present Illness 76 yo M with PMH significant for CAD, CHF, Afib, HTN, glaucoma, GERD, RA and OA with plan for above [facility] DSE and surgical risk assessment pending No previous a/w in record. Anesthesia History PONV: Denies. History of Motion Sickness: Denies. Patient Complications: Negative. Family History of Anesthesia Problems: Negative. Functional Capacity 4-6 METS = Moderate: Stationary bike for 40 minutes, level 7 at the gym daily. Symptoms: Denies SOB/CP. Medical History Past medical history obtained and reviewed from the pre-procedure screening form as noted above. Any significant interval changes are noted below: Yes. Medical History Cardiovascular: F/b Cardiology from different facility ([facility], preop visit 08/20/22), Preop DSE ordered, date pending. Hypertension: MARITZA- I, BP 134/88 today. CAD: h/o silent [place] , Cardiac Intervention ( S/P Stent (type unknown) (2016), Aspirin, statin, Imdurand Ranolazine therapy ). Heart failure: per PCP note: Patient with EF 40-45% noted on discharge summary 03/26/22, repeat Echo on 07/17/22 notable for improvement of EF to 55-60% with normal LVSF , Lasix therapy. Dysrhythmia: A-fib (new onset afib RVR in setting of Septic arthritis of the R knee 03/2022 ), Paroxysmal, Rate controlled (Amiodarone), Eliquis. Pulmonary: COVID vaccine completed + boosters. Obstructive Sleep Apnea: Unable to tolerate CPAP. Hematologic: Anemia: Iron deficiency, No transfusions. Neurologic: Spinal stenosis. Spinal Surgery: Lumbar, Details unknown, denies fusion, Recent spine XR copied below - no evidence of fusion hardware. Gastrointestinal: h/o diverticulitis with colon resection. GERD: Esomeprazole. Autoimmune: RA, Rx Rinvoq, H/o oral prednisone therapy 03/2022-07/2022 . Orthopedics: S/P: Left TKA, Right FRANCIS. Glaucoma Health Status Allergies: Allergic Reactions (Selected) No Known Medication Allergies. Medications: Medication List (Selected) Documented Medications Documented CoQmax [place] 100 mg oral capsule: 1 cap, PO, Daily DULoxetine 30 mg oral delayed release capsule: 2 cap, PO, Daily Eliquis 2.5 mg oral tablet: 1 tab, PO, bid ICaps with Lutein and Zeaxanthin: 1 tab, PO, Daily Klor-Con 10: 10 mEq, PO, bid, with lasix [place]-3 1000 mg oral capsule: 1 cap, PO, Daily Rinvoq 15 mg oral tablet, extended release: 1 tab, PO, Daily Senna 8.6 mg oral tablet: 1 tab, PO, qhs Sutab oral tablet: 0.5 tab, PO Travatan Z: 1 drop, both eyes, qPM Vitamin B Complex with C: 1 tab, PO, Daily Vitamin C: 1,000 mg, PO, Daily acetaminophen: 650 mg, PO, bid amiodarone 200 mg oral tablet: 1 tab, PO, Daily ascorbic acid/chondroitin/glucosamine/manganese 20 mg-400 mg-500 mg-2 mg oral capsule: 1 tab, PO, Daily aspirin: 81 mg, PO, Daily esomeprazole 40 mg oral delayed release capsule: 1 cap, PO, Daily furosemide 20 mg oral tablet: 1 tab, PO, Daily, PRN: prn gabapentin 100 mg oral capsule: 1 cap, PO, tid isosorbide mononitrate 60 mg oral tablet, extended release: 1 tab, PO, qAM lactobacillus acidophilus oral capsule: 1 cap, PO, Daily lisinopril 10 mg oral tablet: 1 tab, PO, Daily melatonin: 5 mg, PO, qhs nitroglycerin: 0.4 mg, SL, q5min, PRN: as needed for chest pain oxyCODONE 5 mg oral tablet: 1 tab, PO, q6h, PRN: as needed for pain, 0 Refill(s) pravastatin 40 mg oral tablet: 1 tab, PO, qhs ranolazine: 500 mg, PO, bid. Problem List: All Problems Right knee pain / SNOMED CT 4046732626 / Confirmed RA (rheumatoid arthritis) / SNOMED CT 636542579 / Confirmed CAD (coronary artery disease) / SNOMED CT 63830751 / Confirmed Atrial fibrillation / SNOMED CT 61743691 / Confirmed Arthritis of knee, right / SNOMED CT [id number] / Confirmed. Histories Procedure History: flush in knee right ([id number]) in the month of 03/2022 at 76 Years. Comments: 07/25/2022 08:55 JOEL Gilliam MA, [place] flush in knee spine surgery x2 ([id number]). Comments: 07/25/2022 08:56 JOEL Gilliam MA, [place] spine surgery stent x2 ([id number]). Colostomy bag ([id number]). Large intestine operation partial removal (495085680). Knee replacement left (363093810). Rotator cuff repair bi lateral (542309054). Knee right tendon (183406284). achilles tendon right (978817512). Hip replacement right x2 (5487242147). Hernia (220725673). Cataract bilateral (428814774). Colonoscope (743135195). Prostate laser (31356123).. Social History: Cigarrette Smoker? Other Tobacco Use: Alcohol: Recreational Drugs: . Physical Examination VS/Measurements: Vital Signs 11/04/2022 12:04 EDT Temperature 36.5 DegC Temperature Route Temporal Heart Rate 93 bpm Respiratory Rate 18 br/min Systolic Blood Pressure 131 mmHg Diastolic Blood Pressure 87 mmHg BP Location # 1 Right Arm BP Cuff Size Regular Mean Blood Pressure 101 mmHg Cuff Pulse Pressure 44 mmHg Oxygen Therapy Room air SpO2 100 % . Airway: Mallampati classification: III (soft palate, base of uvula visible). Mouth: Within normal limits, Teeth ( Within normal limits ). Respiratory: Lungs are clear to auscultation. Cardiovascular: Normal rate, Regular rhythm. Anesthesiologist Assessment and Plan Problems: No active cardiac conditions. ASA Classification: Class III. Anesthetic Plan: Anesthetic technique discussed: General anesthesia, Regional anesthesia. Airway plan discussed: Laryngeal mask airway. Risks discussed: Nausea-vomiting, Headache, Sore throat, Dental injury, Eye injury, Allergic reaction, Serious complications, Nerve damage, Aspiration. Informed consent: Signed by patient. History, Physical Exam, Assessment and Plan Completed: 11/04/2022 12:40:00, MD Simpson Ilker. Electronic Signature on File Electronically Reviewed/Signed by: Anthony Simpson MD Author Signature Dt/Tm:11/04/2022 12:47 PM Department of Anesthesia II XR Knee - right 1 or 2 Views * Contributor_system, [id number]: PERFORM Contributor_system, [id number]: PERFORM, VERIFY MD Tirado Carissa: VERIFY Event Display: Report Authored Date: [id number] EXAMINATION: XR Knee 1 or 2 Views Right CLINICAL HISTORY: Knee Replacement Surgery; Post Op TKA COMPARISON: Outside knee radiographs from 06/24/2022 FINDINGS: Nonweightbearing AP and lateral views of the knee are provided. The patient has undergone total knee replacement. The knee is anatomically aligned, and no fractures are seen. Post surgical changes are present in the soft tissues. Skin marcello are in place. IMPRESSION: Baseline, status post total knee replacement. No immediate complications. Workstation ID: [id number] Final Dictated by:MD Tirado Carissa Dictated DT/TM:11/04/2022 6:37 Signed by:MD Tirado Carissa Signed (Electronic Signature):11/04/2022 6:36 p Patient Care team information Care Team Personnel Name: Rama Hunt Amanda Position: Pharmacist Member Role: Pharmacy - Lifetime Name: DO Soliman Thomas Position: Referring Member Role: Primary Care Provider Address: Address: [facility] [address] [place] [address] Care Team Related Persons Name: AUBRIE CHICAS Address: [place] Address: home [address] [place], [place] [id number] Name: MORE ACHARYA Address: [place] Address: home [address] [place], [place] [id number]
--- OUTSIDE RECORDS SUMMARY | 2023-02-16 22:06 | External Medical Summary | Continuity of Care Document ---
Author Name Unknown Organization [facility] [address] [place] [id number] Encounter [facility] DARANBR [id number] Date(s): 08/21/22 [facility] [address] [facility] [place] [address] [place] [address] [phone] Encounter Diagnosis Preop testing(Discharge Diagnosis) - 08/21/22 Arthritis of knee, right(Discharge Diagnosis) - 08/20/22 Discharge Disposition: Home or Self Care Attending Physician: MD Kern Charles M Referring Physician: MD Kern Charles M Allergies, Adverse Reactions, Alerts No Known Medication Allergies Assessment and Plan Extracted from: Title:Clinical Document Author:MD Kern Charle s M Date:08/21/22 OUTPATIENT NOTE Name: RAFY PALACIO Patient Number:[id number] : 1945 Date of Service: 08/21/2022 This is a shared visit with the physician floral assistant. I personally performed 100% of the medical decision making which is a substantive portion. CHIEF COMPLAINT: Post septic osteoarthritis right knee HISTORY OF PRESENT ILLNESS: Mr. Palacio returns for reevaluation he continues to have significant pain about his right knee and would like consideration for right total knee arthroplasty. He still needs to have his cardiology clearance finished. PHYSICAL EXAMINATION: Knee range of motion is from about 12 to 125 degrees his incision is in good shape without evidence for infection RADIOLOGY EXAMINATIONS: Personally ordered and reviewed x-rays of his right knee he has grade 4 [id number] osteoarthritis of his right knee also report reviewed the report of his MRI scan which does not show underlying osteomyelitis IMPRESSION: Po septic osteoarthritis right knee 2. Rheumatoid arthritis PLAN OF TREATMENT: I discussed with him the nature of problem various treatment options he understands the complexity of the situation. He understands his specifically increased infection rate fracture risk and wound healing risk. He will need to finish his cardiology clearance. We will plan to keep him on antibiotics for an extended period of time after the surgery given his prior infection in that knee. We will need to continue to think about how to manage his rheumatoid medications after surgery. I reviewed with the patient the risk, benefits, alternatives and expected outcomes. The risks include but are not limited to neurovascular injury, wear or loosening of components, dislocations, leg length difference, persistent pain stiffness or limp, fracture, infection, thromboembolic disease. The patient understands and is agreeable to proceeding with the planned procedure. Patient will also be seen by anesthesia and undergo the appropriate preoperative testing for the procedure. Medications acetaminophen Start: 08/21/22 10:10:00 EDT, 650 mg =, PO, bid Start Date: 08/21/22 Status: Ordered amiodarone 200 mg oral tablet Start: 08/21/22 10:11:00 EDT, 1 tab, PO, Daily Start Date: 08/21/22 Status: Ordered ascorbic acid/chondroitin/glucosamine/manganese 20 mg-400 mg-500 mg-2 mg oral capsule Start: 08/21/22 10:17:00 EDT, 1 tab, PO, Daily Start Date: 08/21/22 Status: Ordered aspirin Start: 08/21/22 10:12:00 EDT, 81 mg =, PO, Daily Start Date: 08/21/22 Status: Ordered CoQmax Roebuck 100 mg oral capsule Start: 08/21/22 10:14:00 EDT, 1 cap, PO, Daily Start Date: 08/21/22 Status: Ordered DULoxetine 30 mg oral delayed [...] chest pain Start Date: 08/21/22 Status: Ordered Roebuck-3 1000 mg oral capsule Start: 08/21/22 10:21:00 EDT, 1 cap, PO, Daily Start Date: 08/21/22 Status: Ordered oxyCODONE 5 mg oral tablet Start: 06/24/22 10:10:00 EST, 1 tab, PO, q6h, Refills: 0, PRN: as needed for pain Start Date: 06/24/22 Status: Ordered pravastatin 40 mg oral tablet [...] eyes, qPM Start Date: 06/24/22 Status: Ordered Vitamin B Complex with C Start: 08/21/22 10:13:00 EDT, 1 tab, PO, Daily Start Date: 08/21/22 Status: Ordered Vitamin C Start: 06/24/22 10:12:00 EST, 1,000 mg =, PO, Daily Start Date: 06/24/22 Status: Ordered Problem List Condition Confirmation Course Effective Dates Status Health St atus Informant Arthritis of knee, right Confirmed Active Atrial fibrillation Confirmed Active CAD (coronary artery disease) Confirmed Active Right knee pain Confirmed Active RA (rheumatoid arthritis) Confirmed Active Diagnosis Diagnosis Type Effective Dates Health Status Cl inical Service Informant Preop testing Discharge Diagnosis 08/21/22 Non-Specified Arthritis of knee, right Discharge Diagnosis 08/20/22 Arthritis, septic, knee 08/21/22 Non-Specified Procedures Procedure Date Related Diagnosis Body Site Status flush in knee right 1 03/2022 Com pleted achilles tendon right Com pleted Cataract bilateral Comple ajnel Colonoscope Completed Colostomy bag Completed Hernia Completed Hip replacement right x2 Completed Knee replacement left Com pleted Knee right tendon Complet ed Large intestine operation pa rtial removal Completed Prostate laser Completed Rotator cuff repair bi lateral Completed spine surgery x2 2 Comple janel stent x2 Completed 1flush in knee 2spine surgery Results Orders for Microbiology Reports Name Date Nasal Culture (THROAT/NASAL CULTURE) 08/06 11/28 Microbiology Reports TEST:Thr/Nasal.Cx STATUS:Unauthenticated BODY SITE: SOURCE:Nasal COLLECTED DATE/TIME:08/21/22 5:20 PM Culture Culture in Progress Radiology Reports * Exam Date Time Procedure Performing Provider Status 08/21/22 1:20 PM XR Bone Length Studies Scanograms Carb o, Laxmi A; Final Notes: (XR Bone Length Studies Scanograms) Reason For Exam: preop tka XR Bone Length Studies Scanograms EXAMINATION: XR Bone Length Studies Scanograms CLINICAL HISTORY: M00.9: Pyogenic arthritis, unspecified; M00.9: Pyogenic arthritis, unspecified; right preop TKA COMPARISON: None FINDINGS: The mechanical axis the right extremity passes 2.5 cm medial to the tibial spines. Total hip arthroplasty without hardware complication. Right knee with lateral bone on bone articulation and eburnation. Right ankle is unremarkable. IMPRESSION: Severe degenerative change of the lateral right knee Workstation ID: [id number] Final Dictated by:MD Reyes Eric A Dictated DT/TM:08/21/2022 1:23 Signed by:MD Reyes Eric A Signed (Electronic Signature):08/21/2022 1:22 p Social History Social History Type Response Smoking Status Never smoked cigaret afshan Sex Male XR Femur and Tibia Views for leg length * MD Reyes Eric A: VERIFY, VERIFY MD Reyes Eric A: VERIFY Contributor_system, [id number]: PERFORM Event Display: Report Authored Date: EXAMINATION: XR Bone Length Studies Scanograms CLINICAL HISTORY: M00.9: Pyogenic arthritis, unspecified; M00.9: Pyogenic arthritis, unspecified; right preop TKA COMPARISON: None FINDINGS: The mechanical axis the right extremity passes 2.5 cm medial to the tibial spines. Total hip arthroplasty without hardware complication. Right knee with lateral bone on bone articulation and eburnation. Right ankle is unremarkable. IMPRESSION: Severe degenerative change of the lateral right knee Workstation ID: [id number] Final Dictated by:MD Reyes Eric A Dictated DT/TM:08/21/2022 1:23 Signed by:MD Reyes Eric A Signed (Electronic Signature):08/21/2022 1:22 p
--- OUTSIDE RECORDS SUMMARY | 2023-02-16 22:06 | External Medical Summary | Continuity of Care Document ---
Author Name Unknown Organization [facility] Address [address] [place] [phone] Care Team Providers Care Gate Keeper Name Role Phone Danny Orozco Primary Care Physician [phone] [id number] Date(s): 11/28/22 - 11/30/[address] [phone] Encounter Diagnosis Right knee pain(Discharge Diagnosis) - 11/28/22 Hemarthrosis, right knee(Discharge Diagnosis) - 11/30/22 Hemarthrosis, right knee(Final) - Pain in right knee(Final) - Other intraoperative and postprocedural complications and disorders of the musculoskeletal system(Final) - Presence of right artificial knee joint(Final) - Discharge Disposition: Home or Self Care Attending Physician: MD Cano Henry Aidoo Admitting Physician: MD Cano Henry Aidoo Referring Physician: DO Ellis Ryan M Allergies, Adverse Reactions, Alerts No Known Medication Allergies Substance Reaction Severity Status Cats throat closes up Active Functional Status 11/30/22 Speech Pattern Clear 11/30/22 History of Fall in Last 3 Months Mcgrath N o Presence of Secondary Diagnosis Mcgrath Ye s Use of Ambulatory Aid Mcgrath Crutches/can e/walker IV/Heparin Lock Fall Risk Mcgrath Yes Gait/Transferring Fall Risk Mcgrath Normal /bedrest/immobile Mental Status Fall Risk Mcgrath Oriented t o own ability Mcgrath Fall Risk Score 50 Mcgrath Fall Risk High risk 11/29/22 Neurological Symptoms Weakness ADLs Minimal assistance Facial Symmetry Symmetric Swallowing Difficulty None Level of Consciousness Neuro Alert, Active Hallucinations Present None 11/29/22 Gait Unable to assess Medications amiodarone 200 mg oral tablet Start: 08/21/22 10:11:00 EDT, 1 tab, PO, Daily Start Date: 08/21/22 Status: Ordered ascorbic acid/chondroitin/glucosamine/manganese 20 mg-400 mg-500 mg-2 mg oral capsule Start: 08/21/22 10:17:00 EDT, 1 tab, PO, Daily Start Date: 08/21/22 Status: Ordered aspirin Start: 08/21/22 10:12:00 EDT, 81 mg =, PO, Daily Start Date: 08/21/22 Status: Ordered CoQmax [place] 100 mg oral capsule Start: 08/21/22 10:14:00 EDT, 1 cap, PO, Daily Start Date: 08/21/22 Status: Ordered doxycycline hyclate 100 mg oral capsule Start: 11/30/22 9:12:00 EDT, 1 cap, PO, bid, Disp# 56 cap, Refills: 0, Pharmacy: [facility] Start Date: 11/30/22 Stop Date: 12/28/22 Status: Ordered DULoxetine 30 mg oral delayed [...] mg oral capsule Start: 08/21/22 10:16:00 EDT, See Instructions, 300 mg am and pm and 100 mg in the middle of the day Start Date: 08/21/22 Status: Ordered ICaps with [...] chest pain Start Date: 08/21/22 Status: Ordered Suwanee-3 1000 mg oral capsule Start: 08/21/22 10:21:00 EDT, 1 cap, PO, Daily Start Date: 08/21/22 Status: Ordered oxyCODONE 5 mg oral tablet Start: 11/10/22 10:37:00 EDT, 5 mg =, PO, q4h, Disp# 20 tab, Refills: 0, PRN: pain - moderate (4-6), Pharmacy: [facility] Start Date: 11/10/22 Status: Ordered oxyCODONE 5 mg oral tablet Start: 11/19/22 14:00:00 EDT, 1 tab, PO, q6h, Disp# 10 tab, Refills: 0, 2nd line agent, Note to Pharmacy: continued therapy, PRN: as needed for pain, Pharmacy: [facility] Start Date: 11/19/22 Status: Ordered pravastatin 40 mg oral tablet [...] tab, PO Start Date: 08/21/22 Status: Ordered traMADol 50 mg oral tablet Start: 11/19/22 14:00:00 EDT, 1 tab, PO, q4h, Disp# 10 tab, 1st line agent, Note to Pharmacy: continued therapy, PRN: as needed for pain, Pharmacy: [facility] Start Date: 11/19/22 Status: Ordered Travatan Z Start: 06/24/22 10:12:00 EST, 1 drop, both eyes, qPM Start Date: 06/24/22 Status: Ordered Tylenol 500 mg oral tablet Start: 11/05/22 8:37:00 EDT, 2 tab, PO, q8h Start Date: 11/05/22 Status: Ordered Ultram 50 mg oral tablet Start: 11/05/22 8:38:00 EDT, 1 tab, PO, q8h, Disp# 21 tab, Pharmacy: [facility] Start Date: 11/05/22 Status: Ordered Vitamin B Complex with C Start: 08/21/22 10:13:00 EDT, 1 tab, PO, Daily Start Date: 08/21/22 Status: Ordered Vitamin C Start: 06/24/22 10:12:00 EST, 1,000 mg =, PO, Daily Start Date: 06/24/22 Status: Ordered Mental Status 11/30/22 Communication Barrier Present No Primary Language Romanian Problem List Condition Confirmation Course Effective Dates Status Health St atus Informant Arthritis of knee, right Confirmed Active Atrial fibrillation Confirmed Active CAD (coronary artery disease) Confirmed Active Right knee pain Confirmed Active RA (rheumatoid arthritis) Confirmed Active Diagnosis Diagnosis Type Effective Dates Health Status Cl inical Service Informant Right knee pain Discharge Diagnosis 11/28/22 Non-Specified Hemarthrosis, right knee Discharge Diagnosis 11/30/22 Procedures Procedure Date Related Diagnosis Body Site Status flush in knee right 1 03/2022 Com pleted achilles tendon right Com pleted Cataract bilateral Comple janel Colonoscope Completed Colostomy bag Completed Hernia Completed Hip replacement right x2 Completed Knee replacement left Com pleted Knee right tendon Complet ed Large intestine operation pa rtial removal Completed Prostate laser Completed Rotator cuff repair bi lateral Completed spine surgery x2 2 Comple janel stent x2 Completed 1flush in knee 2spine surgery Results Laboratory List Name Date Basic Metabolic Panel (BMP) 11/30/22 Complete Blood Count (CBC w Platelets) Blood Type (ABO/Rh) (ABO/RH) 11/28/22 Fluid on Hold in Laboratory (EXTRA FLUID ) 11/28/22 Specimen Type (SPECIMEN TYPE) 11/28/22 Cell Count w Differential, Fluid (Fluid Cell Count w Differential) 11/28/22 Glucose, Fluid (Fluid Glucose) 11/28/22 Hold Extra Fluid 11/28/22 Protein, Fluid (Fluid Protein) 11/28/22 Specimen Type (SPECIMEN TYPE) 11/28/22 Synovial Fluid Crystals (Crystals, Synov ial Fluid) 11/28/22 Uric Acid, Fluid (Fluid Uric Acid) Basic Metabolic Panel (BMP) 11/28/22 Blood Type/Antibody Screen ( for possible transfusion) (Type and Screen (for possible transfusion)) 11/28/22 C Reactive Protein, Quantitation (CRP, Q uantitation) 11/28/22 Erythrocyte Sedimentation Rate (ESR) 11/07 08/28 Prothrombin Time w/ INR (PT/INR) 11/28/22 Vitamin D, 25-Hydroxy Level, Total Complete Blood Count (CBC w Platelets) Most recent to oldest [Reference Range]: 1 2 ABO/Rh O NEGATIVE (11/28/22 10:45 PM) O NEGATIVE (11/28/22 4:55 PM) Antibody Scr NEGATIVE (11/28/22 4:55 PM) Expires at 0600AM on 12/01/2022 (11/28/22 4:55 PM) # Units 0 (11/28/22 4:55 PM) R Number NRQ (11/28/22 4:55 PM) CReacProt [<0.50 mg/dL] 3.47 mg/dL *HI* (11/28/22 4:55 PM) Fluid Container Specimen available f rom 0 to 3 days based on specimen stability. Please use addon order if you wish to order testing. (11/28/22 5:32 PM) eGFR CKD-EPI [>60 mL/min/1.7 3 m2] 80 mL/min/1.73 m2 (11/30/22 9:50 AM) 69 mL/min/1.73 m2 (11/28/22 4:55 PM) Vitamin D, 25-Hydroxy [30-10 0 ng/mL] 59 ng/mL 1 (11/28/22 4:55 PM) Uric Acid, fl 5.2 mg/dL 2 (11/28/22 5:31 PM) Montour/Mac/Meso, fl 3 % (11/28/22 5:31 PM) Estimated CrCl 77.46 mL/min (11/30/22 10:46 AM) 68.23 mL/min (11/28/22 10:45 PM) MPV [9.0-12.2 fL] 9.3 fL (11/30/22 9:50 AM) 9.5 fL (11/28/22 4:55 PM) RDW [11.5-14.2 %] 16.2 % *HI* (11/30/22 9:50 AM) 16.1 % *HI* (11/28/22 4:55 PM) B Comments Second specimen for ABRH confirmation requested from: STUART [address]DANIEL YOON [id number] (11/28/22 4:55 PM) Component RED CELLS (11/28/22 4:55 PM) Anion Gap [5-14 mmol/L] 9 mmol/L (11/30/22 9:50 AM) 12 mmol/L (11/28/22 4:55 PM) BUN [6-23 mg/dL] 18 mg/dL (11/30/22 9:50 AM) 20 mg/dL (11/28/22 4:55 PM) Ca [8.4-10.2 mg/dL] 8.7 mg/dL (11/30/22 9:50 AM) 9.0 mg/dL (11/28/22 4:55 PM) Cl- [98-107 mmol/L] 102 mmol/L (11/30/22 9:50 AM) 101 mmol/L (11/28/22 4:55 PM) HCO3 [22-29 mmol/L] 27 mmol/L (11/30/22 9:50 AM) 25 mmol/L (11/28/22 4:55 PM) Cret [0.70-1.30 mg/dL] 0.96 mg/dL (11/30/22 9:50 AM) 1.09 mg/dL (11/28/22 4:55 PM) BF Source RIGHT 3 (11/28/22 5:32 PM) RIGHT 4 (11/28/22 5:31 PM) ESR [0-40 mm/hr] 37 mm/hr (11/28/22 4:55 PM) Baso,fl 0 % (11/28/22 5:31 PM) Eos,fl 0 % (11/28/22 5:31 PM) Gluc, fl 31 mg/dL 5 (11/28/22 5:31 PM) Lymph,fl 4 % (11/28/22 5:31 PM) Nuc Cell,fl 3700 /uL 6 (11/28/22 5:31 PM) Neut,fl 93 % (11/28/22 5:31 PM) OtherMono,fl 0 % (11/28/22 5:31 PM) RBC,fl >88404 /uL (11/28/22 5:31 PM) Protein, fl 5.6 g/dL 7 (11/28/22 5:31 PM) Glu [74-109 mg/dL] 102 mg/dL 8 (11/30/22 9:50 AM) 91 mg/dL 9 (11/28/22 4:55 PM) Hct [39-48 %] 28.4 % *LOW* (11/30/22 9:50 AM) 29.9 % *LOW* (11/28/22 4:55 PM) Hgb [13.0-17.0 g/dL] 8.6 g/dL *LOW* (11/30/22 9:50 AM) 9.4 g/dL *LOW* (11/28/22 4:55 PM) INR [0.9-1.1] 1.1 10 (11/28/22 4:55 PM) K [3.5-5.1 mmol/L] 3.9 mmol/L (11/30/22 9:50 AM) 3.9 mmol/L (11/28/22 4:55 PM) MCH [28-33 pg] 28.8 pg (11/30/22 9:50 AM) 29.6 pg (11/28/22 4:55 PM) MCHC [32-36 g/dL] 30.3 g/dL *LOW* (11/30/22 9:50 AM) 31.4 g/dL *LOW* (11/28/22 4:55 PM) MCV [81-96 fL] 95.0 fL (11/30/22 9:50 AM) 94.0 fL (11/28/22 4:55 PM) Na [136-145 mmol/L] 138 mmol/L (11/30/22 9:50 AM) 138 mmol/L (11/28/22 4:55 PM) Plts [150-350 K/uL] 242 K/uL (11/30/22 9:50 AM) 287 K/uL (11/28/22 4:55 PM) PT [12.0-14.2 seconds] 14.5 seconds *HI* (11/28/22 4:55 PM) RBC [4.40-5.60 M/uL] 2.99 M/uL *LOW* (11/30/22 9:50 AM) 3.18 M/uL *LOW* (11/28/22 4:55 PM) Syn Cryst,fl RARE 11 (11/28/22 5:31 PM) WBC [4.0-10.4 K/uL] 4.64 K/uL (11/30/22 9:50 AM) 5.10 K/uL (11/28/22 4:55 PM) Hold Extra Fluid SPECIMEN HELD IN [facility]. CALL [phone] TO ADD STUDIES. (11/28/22 5:31 PM) 1Result Comment: Deficiency: <20 ng/mL Insufficiency: 21-29 ng/mL Sufficiency: 30-100 ng/mL Potenial Toxicity: >150 ng/mL 2Result Comment: The reference range and/or other method performance specifications for this bodyfluid have not been established or verified by the [facility]. The results may also be inaccurate due to the presence of potential interferingsubstances. The test result must also be integrated into the clinical context for interpretation. 3Result Comment: KNEE SYNOVIUM 4Result Comment: KNEE SYNOVIUM 5Result Comment: The reference range and/or other method performance specifications for this bodyfluid have not been established or verified by the [facility]. The results may also be inaccurate due to the presence of potential interferingsubstances. The test result must also be integrated into the clinical context for interpretation. 6Result Comment: "The reference intervals and other method performance specifications are unavailable for this body fluid. Comparision of the result with concentration in the blood, serum or plasma isrecommended." 7Result Comment: The reference range and/or other method performance specifications for this bodyfluid have not been established or verified by the [facility]. The results may also be inaccurate due to the presence of potential interferingsubstances. The test result must also be integrated into the clinical context for interpretation. 8Result Comment: ADA recommendation for FASTING Serum/Plasma Glucose: Normal: 70-100 mg/dL Prediabetes: 100-125 mg/dL Diabetes: 126 mg/dL or higher 9Result Comment: ADA recommendation for FASTING Serum/Plasma Glucose: Normal: 70-100 mg/dL Prediabetes: 100-125 mg/dL Diabetes: 126 mg/dL or higher 10Result Comment: Suggested therapeutic range for low-intensity Coumadin therapy for venous thromboembolism is INR 2.0-3.0 (ex: atrial fibrillation, history of TIA/stroke). For high risk patients, the suggested therapeutic range is INR 2.5-3.5 (ex: mechanical prosthetic valves). 11Result Comment: INTRACELLULAR CRYSTALS RESEMBLING MONOSODIUM URATE RARE EXTRACELLULAR CRYSTALS RESEMBLING MONOSODIUM URATE Orders for Microbiology Reports Name Date Acid Fast Bacillus Cx/Smear, Fluid (AFB Culture and Smear, Fluid) 11/29/22 Fluid Culture w Smear 11/29/22 Anaerobe Culture w Smear, Fluid 11/29/22 Blood Culture (Aerobic AND Anaerobic) Blood Culture (Aerobic AND Anaerobic) Microbiology Reports TEST:Blood.Cx STATUS:Unauthenticated BODY SITE: SOURCE:Blood COLLECTED DATE/TIME:11/28/22 10:28 PM Culture NO GROWTH IN 4 DAYS TEST:AFB.Culture, Fluid STATUS:Unauthenticated BODY SITE: SOURCE:Synovial Fluid COLLECTED DATE/TIME:11/28/22 5:31 PM Culture NO ACID FAST BACILLI ISOLATED AFTER 4 DAYS TEST:Fluid.Cx STATUS:Unauthenticated BODY SITE: SOURCE:Synovial Fluid COLLECTED DATE/TIME:11/28/22 5:31 PM Culture NO GROWTH 4 DAYS TEST:Anaerobe.Culture, Fluid STATUS:Unauthenticated BODY SITE: SOURCE:Synovial Fluid COLLECTED DATE/TIME:11/28/22 5:31 PM Culture NO GROWTH 4 DAYS TEST:Blood.Cx STATUS:Unauthenticated BODY SITE: SOURCE:Blood COLLECTED DATE/TIME:11/28/22 4:55 PM Culture NO GROWTH IN 4 DAYS Radiology Reports * Exam Date Time Procedure Performing Provider Status 11/28/22 9:16 PM XR Knee 1 or 2 Views Right Yomaira Cade cia; Final Notes: (XR Knee 1 or 2 Views Right) Reason For Exam: Right knee pain XR Knee 1 or 2 Views Right EXAMINATION: XR Knee 1 or 2 Views Right CLINICAL HISTORY: Right knee pain COMPARISON: November 04, 2022 FINDINGS: There is a right total knee arthroplasty with patellar resurfacing. Alignment is unchanged. There are skin marcello. There is anterior soft tissue swelling, which appears increased from prior study. Vascular calcifications are seen. IMPRESSION: Stable alignment right total knee arthroplasty with increased soft tissue swelling Workstation ID: [id number] Final Dictated by:MD Delgado Jonelle M Dictated DT/TM:11/28/2022 9:36 Signed by:MD Delgado Jonelle M Signed (Electronic Signature):11/28/2022 9:35 p Vital Signs Most recent to oldest [Reference Range]: 1 2 3 Height 182.88 cm (11/28/22 6:38 PM) Patient Weight 99.5 kg (11/28/22 6:38 PM) Body Mass Index 29.75 kg/m2 (11/28/22 6:38 PM) Temperature [36.5-37.9 DegC] 36.5 DegC (11/30/22 8:49 AM) 36 DegC *LOW* (11/30/22 12:37 AM) 36.9 DegC (11/29/22 4:47 PM) Heart Rate 71 bpm (11/30/22 8:49 AM) 71 bpm (11/30/22 12:37 AM) 69 bpm (11/29/22 4:47 PM) Respiratory Rate 18 br/min (11/30/22 12:37 AM) 18 br/min (11/29/22 4:47 PM) 18 br/min (11/28/22 9:30 PM) Blood Pressure 129/75mmHg (11/30/22 8:49 AM) 123/52mmHg (11/30/22 12:37 AM) 114/63mmHg (11/29/22 4:47 PM) Mean Blood Pressure 92 mmHg (11/30/22 8:49 AM) 82 mmHg (11/30/22 12:37 AM) 81 mmHg (11/29/22 4:47 PM) Cuff Pulse Pressure 54 mmHg (11/30/22 8:49 AM) 71 mmHg (11/30/22 12:37 AM) 51 mmHg (11/29/22 4:47 PM) BP Location # 1 Left Arm (11/30/22 8:49 AM) Left Arm (11/30/22 12:37 AM) Left Arm (11/29/22 4:47 PM) Social History Social History Type Response Smoking Status Never smoked cigaret afshan Sex Male Implantable Device List Procedure Provider Procedure Date Device Type Site Unknown Unknown 11/04/22 Unknown Unknown Device Identifier Serial Number Lot or Batch Number Manufacturing Date Expiration Date Distinct Identification Code MRI Safety Implantable Status Assigning Authority Unknown Unknown [id number] Unknown 04/07/25 Unknown Unknown Active Unk nown Unknown Unknown [id number] Unknown 01/05/31 Unknown Unknown Active Unkn own Unknown Unknown [id number] Unknown 08/05/32 Unknown Unknown Active Unknown Unknown Unknown [id number] Unknown 06/07/27 Unknown Unknown Active Unknown Unknown Unknown [id number] Unknown 08/05/26 Unknown Unknown Active Unkn own .D/C Summary * MD Tahira, Jose De Jesus: PERFORM Event Display: .D/C Summary Authored Date: [id number] [facility] For medical concerns, call: . Address: [address] [place] [address] [phone] (MOBILE) [phone] (ALTERNATE) :1945 . Date of Admission:11/28/2022 Date of Discharge:11/30/2022 Physician:MD Rachael, [facility] Service:Orthopaedics Discharge Disposition:Home Primary Care Provider/Phone: DO OROZCO THOMAS (BUSINESS) [phone] (Moblyng) Principal Diagnosis: Hemarthrosis, right knee Other Diagnoses: Right knee pain Hospital Course: This patient was admitted to the hospital on11/28/22 when he underwentright knee aspirationby the Orthopaedic call team. After discussion of the risks and benefits with the patient, they electedto proceed with aspiration due to concern for prosthetic joint infection. The patient tolerated theprocedurewell and there were no complications. Following the aspiration, the patient was managed o n the floor. Since the aspiration the patienthas donevery well, with improved pain and range ofmotion.Aspiration results significant for 3700 cells, 93%neutrophils, negative Gram stain, and no growth to date from cultures thus far. Ultimately, the patient was discharged to continue rehabilitation. We will see the patient back on 12/18 for repeat evaluation. At discharge, we had a discussion about postoperative care. Patient and family are aware of the need to watch for any issues, and are instructed to call our office with anyquestions or concerns. The patient was then discharged home on 11/30. The patient will continue doxycycline until his follow-up appointment, and will hold his prophylactic apixaban for 3 days before resuming. Exam on Discharge: Vitals & Measurements: T:36.5C TMIN:36C TMAX:36.9C HR:71(Monitored) RR:18 BP:129/75 SpO2:97% Oxygen Therapy:Room air General: Well-appearing, in no acute distress Cardiac: Regular rate by palpation Lungs: Normal work of breathing on room air MSK: RLE: - Right leg in Amish bandage, incision C, D, I with marcello. Mildly to palpation about the right knee. Continued right knee joint effusion with improvement. - Knee ROM 0-130 degrees and painless - SILT Saph/Tibial/DP/SP/Nika nerve distributions. - 5/5 strength in TA/EHL/GSC/PL/Quad/Hamstring - 2+ DP & PT pulses, BCR. Discharge Medications: 1.Isosorbide mononitrate (isosorbide mononitrate 60 mg oral tablet, extended release) 60 mg (1 tab)by mouth once a day (in the morning). 2.Multivitamin with minerals (ICaps with Lutein and Zeaxanthin) 1 tab by mouth once daily. 3.Melatonin 5 mg by mouth at bedtime. 4.Ranolazine 500 mg by mouth 2 times daily. 5.Pravastatin (pravastatin 40 mg oral tablet) 40 mg (1 tab) by mouth at bedtime. 6.Upadacitinib (Rinvoq 15 mg oral tablet, extended release) 15 mg (1 tab) by mouth once daily. 7.Senna (Senna 8.6 mg oral tablet) 8.6 mg (1 tab) by mouth at bedtime. 8.Potassium chloride (Klor-Con 10) 10 mEq by mouth 2 times daily. with lasix. 9.Lisinopril (lisinopril 10 mg oral tablet) 10 mg (1 tab) by mouth once daily. 10.Travoprost ophthalmic (Travatan Z) 1 drop in both eyes every evening. 11.Ascorbic acid (Vitamin C) by mouth once daily. 12.Aspirin 81 mg by mouth once daily. 13.Apixaban (Eliquis 2.5 mg oral tablet) 2.5 mg (1 tab) by mouth 2 times daily. 14.Esomeprazole (esomeprazole 40 mg oral delayed release capsule) 40 mg (1 cap) by mouth once daily. 15.Furosemide (furosemide 20 mg oral tablet) 20 mg (1 tab) by mouth once daily, as needed for prn. 16.Ascorbic acid/chondroitin/glucosa/catherine (ascorbic acid/chondroitin/glucosamine/manganese 20 mg-400 mg-500 mg-2 mg oral capsule) 1 tab by mouth once daily. 17.Amiodarone (amiodarone 200 mg oral tablet) 200 mg (1 tab) by mouth once daily. 18.Multivitamin (Vitamin B Complex with C) 1 tab by mouth once daily. 19.Suwanee-3 polyunsaturated fatty acids-ubiq (CoQmax Suw[place] 100 mg oral capsule) 1 cap by mouth once daily. 20.Nitroglycerin 0.4 mg sublingually every 5 minutes, as needed for chest pain. 21.Suwanee-3 polyunsaturated fatty acids (Suwanee-3 1000 mg oral capsule) 1,000 mg (1 cap) by mouth once daily. 22.DULoxetine (DULoxetine 30 mg oral delayed release capsule) 60 mg (2 cap) by mouth once daily. 23.Gabapentin (gabapentin 100 mg oral capsule) See Instructions . 300 mg am and pm and 100 mg in the middle of the day. 24.Magnesium sulfate/potass Cl/sodium sulf (Sutab oral tablet) 0.5 tab by mouth . 25.Lactobacillus acidophilus (lactobacillus acidophilus oral capsule) 1 cap by mouth once daily. 26.TraMADol (Ultram 50 mg oral tablet) 50 mg (1 tab) by mouth every 8 hours. 27.Acetaminophen (Tylenol 500 mg oral tablet) 1,000 mg (2 tab) by mouth every 8 hours. 28.OxyCODONE (oxyCODONE 5 mg oral tablet) 5 mg by mouth every 4 hours, as needed for pain - moderate (4-6). For: Postoperative pain. 29.TraMADol (traMADol 50 mg oral tablet) 50 mg (1 tab) by mouth every 4 hours, as needed for pain. 1st line agent. For: Arthritis of knee, right. 30.OxyCODONE (oxyCODONE 5 mg oral tablet) 5 mg (1 tab) by mouth every 6 hours, as needed for pain. 2nd line agent. For: Arthritis of knee, right. 31.Doxycycline (doxycycline hyclate 100 mg oral capsule) 100 mg (1 cap) by mouth 2 times daily. Allergies and Sensitivities: Catsthroat closes up No Known Medication Allergies Tests Pending: Anaerobe Culture, Fluid To obtain results pending at hospital discharge, call and ask for the following Physician:MD Rachael, Bruce Oliveira Scheduled Appointments: Date/Time:Provider/Resource: Nov 04:00 pmISREAL Parra Jennifer R Location/Instructions:Please arrive 15 minutes prior to your appointment time with [facility], [facility], [address], [facility] [address] Date/Time:Provider/Resource: Dec 12:45 MD Mcnair Charles M Location/Instructions:[facility], [address], [address]tr[address], [address], [facility] [address] Discharge Services: No Post-Acute Placement(s) Listed No Post-Acute Service(s) Listed Care Instructions: -Stool softener of choice while on pain medication -NO SMOKING or use of any products containing nicotine including chew less tobacco and nicotine replacement medications - Research has shown that these can lead to a delay in wound/incision healing complications and delay of bone fusion and fracture healing and must be stopped in the postoperative period. Continuing these substance while your fracture is healing can lead to chronic pain and/or a non-united fracture that may require further surgery. - Take at least 10 deep breaths every hour, while awake, to help keep the lungs wide open and prevent pneumonia WOUND CARE: Dressings as needed for incision, marcello have been removed. Compression bandage such as Amish wrap can help with swelling. ACTIVITY GUIDELINES: -Right lower extremity isweight bearing as toleratedwith the assistance of a walker as shown by Physical Therapy. -Right hip, knee and ankle range of motion as tolerated: NO specific restrictions - elevate foot/ankle above heart level to help decrease pain and swelling ANTICOAGULATION: Please hold your Apixaban medication until Thursday, 12/03. You may then resume taking it as prescribed. ANTIBIOTIC: Continue to take your doxycycline as prescribed until your follow-up appointment with Dr. Kern. A new prescription for this has been sent to the [facility]. . Advance Directive:None I personally spent35 minutes in discharge planning. Electronic Signature on File Electronically Reviewed/Signed by: Jose De Jesus Hoffmann MD Author Signature Dt/Tm:11/30/2022 11:27 AM Resident Division of Orthopaedics Electronically Reviewed/Signed by: Manjit Kern III, MD, PhD Cosigner Signature Dt/Tm: 11/30/2022 06:22 PM Professor, Orthopaedics [facility] [address] [place] [address] [place] Discharge instructions * MD Tahira, Jose De Jesus: PERFORM Event Display: Patient Discharge Instructions Authored Date: [id number] RAFY PALACIO Mane :1945 Visit Date:11/28/2022 Patient Discharge Instructions [facility] For medical concerns, call: . Date of Admission:11/28/2022 Date of Discharge:11/30/2022 Physician:MD Rachael, [facility] Service:Orthopaedics Discharge Disposition:Home . Advance Directive:None Reason for Hospitalization Hemarthrosis, right knee Your Diagnoses Hemarthrosis, right knee Right knee pain My Health Patient Portal: [employer] makes it easy for you to manage your health information online. My [employer] is a free service that provides you instant, secure access to your medical information anytime, anywhere. Sign in or set up your account today at [email or web address] Thank you for allowing us to assist you with your healthcare needs. Medications What How Much When Why Instructions Next Dose New doxycycline (doxycycline hyclate 100 mg oral capsule) 1 cap by mouth 2 times daily Duration: 4 week(s) Pickup at [facility] Unchanged acetaminophen (Tylenol 500 mg oral tablet) 2 tab(s) by mouth Every 8 hours Unchanged amiodarone (amiodarone 200 mg oral tablet) 1 tab(s) by mouth Once daily Unchanged apixaban (Eliquis 2.5 mg oral tablet) 1 tab(s) by mouth 2 times daily Please hold for 3 days until , then resume as prescribed Unchanged ascorbic acid (Vitamin C) 1,000 Milligram [...] Unchanged gabapentin (gabapentin 100 mg oral capsule) See instructions 300 mg am and pm and 100 mg in the middle of the day Unchanged isosorbide mononitrate (isosorbide mononitrate 60 mg [...] chest pain Unchanged omega-3 polyunsaturated fatty acids (Suwanee-3 1000 mg oral capsule) 1 cap by mouth Once daily Unchanged omega-3 polyunsaturated fatty acids-ubiquinone (CoQmax [place] 100 mg oral capsule) 1 cap by mouth Once daily Unchanged oxyCODONE (oxyCODONE 5 mg oral tablet) 5 Milligram by mouth Every 4 hours as needed for pain - moderate (4-6) Postoperative pain Unchanged oxyCODONE (oxyCODONE 5 mg oral tablet) 5 Milligram by mouth Every 6 hours as needed for as needed for pain Arthritis of knee, right 2nd line agent Unchanged potassium chloride (Klor-Con 10) 10 Milliequivalent by mouth 2 times daily with lasix Unchanged pravastatin (pravastatin 40 mg oral tablet) 1 tab(s) by mouth At bedtime Unchanged ranolazine 500 Milligram by mouth 2 times daily Unchanged senna (Senna 8.6 mg oral tablet) 1 tab(s) by mouth At bedtime Unchanged traMADol (traMADol 50 mg oral tablet) 1 tab(s) by mouth Every 4 hours as needed for as needed for pain Arthritis of knee, right 1st line agent Unchanged traMADol (Ultram 50 mg oral tablet) 1 tab(s) by mouth Every 8 hours Unchanged travoprost ophthalmic (Travatan Z) 1 Drops in both eyes Every evening Unchanged upadacitinib (Rinvoq 15 mg oral tablet, extended release) 1 tab(s) by mouth Once daily Pharmacy Information [facility]: [address] [place] [address] ISREAL Linder [phone] Allergies Catsthroat closes up No Known Medication Allergies What to do next Instructions From Your Doctor -Stool softener of choice while on pain medication -NO SMOKING or use of any products containing nicotine including chew less tobacco and nicotine replacement medications - Research has shown that these can lead to a delay in wound/incision healing complications and delay of bone fusion and fracture healing and must be stopped in the postoperative period. Continuing these substance while your fracture is healing can lead to chronic pain and/or a non-united fracture that may require further surgery. - Take at least 10 deep breaths every hour, while awake, to help keep the lungs wide open and prevent pneumonia WOUND CARE: Dressings as needed for incision, marcello have been removed. Compression bandage such as Amish wrap can help with swelling. ACTIVITY GUIDELINES: -Right lower extremity isweight bearing as toleratedwith the assistance of a walker as shown by Physical Therapy. -Right hip, knee and ankle range of motion as tolerated: NO specific restrictions - elevate foot/ankle above heart level to help decrease pain and swelling ANTICOAGULATION: Please hold your Apixaban medication until Thursday, 6/28. You may then resume taking it as prescribed. ANTIBIOTIC: Continue to take your doxycycline as prescribed until your follow-up appointment with Dr. Kern. A new prescription for this has been sent to the [facility]. If you notice the following symptoms Call your doctor if: During the recovery period you may experience numbness/tingling at varying degrees. If you develop significant chills, fever greater than 101, swelling around the incision, redness, drainage, odor from the wound call [facility] at: [phone]. Any question or problems can be taken care of 24 hours a day, 7 days a week by calling [phone] asking for the orthopaedic resident loss prevention agent. A covering orthopaedic surgeon can address these issues any time that they arise. During office hours 8 am until 4:30 pm Thursday through Thursday, pleasecall [phone] with questions or concerns. Contact our Careline at . If unable to contact your physician and you feel it is an emergency, go to the nearest Emergency Room or call [phone] Diet Instructions Activity Instructions Weight Bearing Leg, Right, Weight Bearing As Tolerated Follow-Up Appointments Scheduled Follow-Up Appointments Date/Time:Provider/Resource: Nov 04:00 pmISREAL Parra Jennifer R Location/Instructions:Please arrive 15 minutes prior to your appointment time with [facility], [facility], [address], [facility] [address] Date/Time:Provider/Resource: Dec 12:45 MD Tabby, Manjit Frnaklin Location/Instructions:[facility], [address], [address]tr[address], [address], [place] The Following Services Have Been Arranged for You No Post-Acute Placement(s) Listed No Post-Acute Service(s) Listed Tests Pending Anaerobe Culture, Fluid To obtain results pending at hospital discharge, call and ask for the following Physician:MD Rachael, Bruce Oliveira Special Instructions Common Emergency Awareness Tips Call [...] of these heart attack warning signs, call 02-06- to get immediate medical attention! 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 Palacio 76-year-old male with past medical history significant for coronary artery disease, CHF, A-fib, hypertension, glaucoma, GERD, RA, osteoarthritis he presents to [facility] as a direct transfer from [facility] where he had a 1 day history of worseningright knee pain. He denies any known traumatic event, he states he was performing aggressive physical therapy when all of a sudden his knee suddenly became swollen and painful. He states that he has been taking his Eliquis. He does not recall any specific trauma besides aggressive physical therapy.He has had a complicated history regarding his right knee briefly back on March 12, 2022 out altered mental status failure to thrive has been on prednisone for his right knee pain, presented with elevated CRP, had a blood culture that was positive for coag negative staph, knee was aspirated for 45,000 total nucleated cells, underwent a right knee irrigation debridement on March 19 was on empiric vancomycin and cefepime. He has been staying at [facility] since then his family lives in [place]. Due to ongoing right knee pain he ultimately presented to Dr. Kern's clinic where he underwent a right total knee arthroplasty on November 04, 2022. He denies any constitutional symptoms including fever, chills, shortness of breath, chest pain, Sloan pain, nausea vomiting. He states he feels well. He is ambulating with a walker. He has been staying at [facility]. He states that before his right knee infection he was a community ambulator. Review of Systems: A 14-point review of systems was performed and was negative unless otherwise stated above. Past Medical History: coronary artery disease, CHF, A-fib, hypertension, glaucoma, GERD, RA, osteoarthritis Surgical History: Bilateral rotator cuff repairs, right total knee arthroplasty Family History: Denies family history of bleeding or clotting disorders; denies family history of adverse reactions to anesthesia Social History: Denies tobacco use, denies excessive alcohol use, denies illicit drug use. Physical Exam: General: Well-appearing, in no acute distress Cardiac: Regular rate by palpation Lungs: Normal work of breathing on room air MSK: LLE: - NTTP, No obvious deformities, lacerations, or abrasions. - FROM of ankle, knee, hip. - SILT Saph/Tibial/DP/SP/Nika nerve distributions. - 5/5 strength in TA/EHL/GSC/PL/Quad/Hamstring - 2+ DP & PT pulses, BCR. RLE: -Large right knee effusion on examination, right knee is erythematous, marcello intact, there is no evidence of wound dehiscence are quite tender to palpation about the knee, with swelling and erythema evident. He is holding his right knee in a flexed position approximately 45 degrees he is very hesitant to straighten his knee. I can range his knee from about 30 degrees to approximately 70 degrees however limited due to the amount of swelling that he has. He has a large right knee effusion with surrounding erythema there is no overlying cellulitis that I can appreciate, this is blanchable -He does have pain with short arc ROM of knee - FROM of ankle, hip. - SILT Saph/Tibial/DP/SP/Nika nerve distributions. - 5/5 strength in TA/EHL/GSC/PL/Quad/Hamstring - 2+ DP & PT pulses, BCR. Imaging: Imaging is currently pending ASSESSMENT AND PLAN: Patient is a 76-year-old male, who presents with large right knee effusion in the setting of a right total knee arthroplasty knee pain and swelling, with concerns for a periprosthetic joint infection -Patient is currently hemodynamically stable -Please obtain CBC, CMP, ESR, CRP -Knee was aspirated, fluid sent for cultures, cell count, crystals -Nonweightbearing RLE -Patient was staffed with attending surgeon of record Dr. Cano -Please page [phone] with any questions or concerns PROCEDURE NOTE: PROCEDURE: The patient was correctly identified and verbal consent was obtained. The patient was prepped with iodine solution and draped with sterile towels. An 18g spinal needle was inserted in the superolateral region of the right knee directed into the joint space with the knee extended. 30 cc of mc blood was drained from the joint. The syringe was capped in a sterile fashion, and the fluidwas hand delivered to the lab for analysis. The patient tolerated the procedure well and the right knee was dressed with Kerlix and tape. Electronic Signature on File Electronically Reviewed/Signed by: Austin Landa MD Author Signature Dt/Tm:12/01/2022 06:34 AM Resident Division of Orthopaedics Electronically Reviewed/Signed by: Bruce Cano MD Cosigner Signature Dt/Tm: 12/02/2022 01:08 PM Division of Orthopaedics SG XR Knee - right 1 or 2 Views * MD Delgado Jonelle M: VERIFY, VERIFY MD Delgado Jonelle M: VERIFY Contributor_system, [id number]: PERFORM Event Display: Report Authored Date: [id number] EXAMINATION: XR Knee 1 or 2 Views Right CLINICAL HISTORY: Right knee pain COMPARISON: November 04, 2022 FINDINGS: There is a right total knee arthroplasty with patellar resurfacing. Alignment is unchanged. There are skin marcello. There is anterior soft tissue swelling, which appears increased from prior study. Vascular calcifications are seen. IMPRESSION: Stable alignment right total knee arthroplasty with increased soft tissue swelling Workstation ID: [id number] Final Dictated by:MD Delgado Jonelle M Dictated DT/TM:11/28/2022 9:36 Signed by:MD Delgado Jonelle M Signed (Electronic Signature):11/28/2022 9:35 p Patient Care team information Care Team Personnel Name: Rama Hunt Amanda Position: Pharmacist Member Role: Pharmacy - Lifetime Name: DO rOozco Thomas Position: Referring Member Role: Primary Care Provider Address: Address: [facility] [address] [place] [address] [place] Care Team Related Persons Name: AUBRIE PALACIO Address: [place] Address: home [address] [place], [place] [id number] Name: MORE ACHARYA Address: [place] Address: home [address] [place], [place] [id number]
--- OUTSIDE RECORDS SUMMARY | 2023-02-16 22:06 | External Medical Summary | Continuity of Care Document ---
Author Name Unknown Organization [facility] [address] [facility] [address] [place]NDEZ [id number] Care Team Providers Care Registered Route Associate Name Role Phone Danny Soliman Primary Care Physician [phone] Encounter [facility] [id number] Date(s): 12/18/22 - 12/18/22 [facility] [address] [facility] [address] [place] [phone] Encounter Diagnosis Aftercare following right knee joint replacement surgery(Discharge Diagnosis) - 12/16/22 Discharge Disposition: Home or Self Care Attending Physician: MD Kern Charles M Referring Physician: MD Kern Charles M Allergies, Adverse Reactions, Alerts No Known Medication Allergies Substance Reaction Severity Status Cats throat closes up Active Assessment and Plan Extracted from: Title:Clinical Document Author:JOSE Alvarado Emi ly M Date:12/18/22 OUTPATIENT NOTE Name: RAFY CHICAS Patient Number:[id number] : 1945 Date of Service: 12/18/2022 _Chief complaint: s/p right total knee arthroplasty stay on 11/04/2022 HPI: Patient presents for 6-week follow-up status post aforementioned procedure. Patient presented back to the emergency department about a month following surgery with severe pain and swelling. His knee was aspirated to rule out infection. Cell count 3700, 93% neutrophils and negative cultures. Patient has been maintained on doxycycline twice daily since surgery. He denies any prior history of septic arthritis as well as rheumatoid arthritis. He did just resume his Biologics about a week and a half ago. He denies any problems with the knee incision. No fever chills or night sweats. Physical exam: Patient is 77-year-old male appears to be no acute distress. He is seated in a wheelchair on today's date. On examination of the right knee, well- healed anterior based knee incision without incisional erythema or drainage. Appropriate postoperative swelling is noted. Right knee range of motion is 0-1 05 with no instability or significant pain with range of motion. Right lower extremity strength is intact. Calves are soft and nontender. Impression: Status post right total knee arthroplasty on 11/04/2022 complicated by postoperative hematoma. Prior history of septic arthritis about the right knee. Rheumatoid arthritis maintained on Biologics. Plan: Patient was seen in conjunction with Dr. Kern on today's date. Patient may discontinue doxycycline at this point. We will plan to see him back at the 1 year enid with updated x-rays right knee per orthopedic protocol however should he have any new or worsening symptoms in the interim he will call our office. All questions answered. Medications amiodarone 200 mg oral tablet Start: [...] bid, Disp# 56 cap, Refills: 0, Pharmacy: [facility] Start Date: 11/30/22 Stop Date: 12/28/22 Status: [...] chest pain Start Date: 08/21/22 Status: Ordered Industry-3 1000 mg oral capsule Start: 08/21/22 10:21:00 EDT, 1 cap, PO, Daily Start Date: 08/21/22 Status: Ordered oxyCODONE 5 mg oral tablet Start: 11/10/22 10:37:00 EDT, 5 mg =, PO, q4h, Disp# 20 tab, Refills: 0, PRN: pain - moderate (4-6), Pharmacy: [facility] Start Date: 11/10/22 Status: Ordered oxyCODONE 5 mg oral tablet Start: 11/19/22 14:00:00 EDT, 1 tab, PO, q6h, Disp# 10 tab, Refills: 0, 2nd line agent, Note to Pharmacy: continued therapy, PRN: as needed for pain, Pharmacy: [facility] Start Date: 11/19/22 Status: Ordered pravastatin 40 [...] therapy, PRN: as needed for pain, Pharmacy: [facility] Start Date: 11/19/22 Status: Ordered Travatan Z Start: 06/24/22 10:12:00 EST, 1 drop, both eyes, qPM Start Date: 06/24/22 Status: Ordered Tylenol 500 mg oral tablet Start: 11/05/22 8:37:00 EDT, 2 tab, PO, q8h Start Date: 11/05/22 Status: Ordered Ultram 50 mg oral tablet Start: 11/05/22 8:38:00 EDT, 1 tab, PO, q8h, Disp# 21 tab, Pharmacy: [facility] Start Date: 11/05/22 Status: Ordered Vitamin B Complex with C Start: 08/21/22 10:13:00 EDT, 1 tab, PO, Daily Start Date: 08/21/22 Status: Ordered Vitamin C Start: 06/24/22 10:12:00 EST, 1,000 mg =, PO, Daily Start Date: 06/24/22 Status: Ordered Mental Status 12/18/22 Barriers to Learning one year None evide nt Mandatory Health Literacy Documentation Yes Health Literacy Communication Barriers N ever Primary Language Ivorian Problem List Condition Confirmation Course Effective Dates Status Health St atus Informant Arthritis of knee, right Confirmed Active Atrial fibrillation Confirmed Active CAD (coronary artery disease) Confirmed Active Right knee pain Confirmed Active Aftercare following right knee joint replacement surgery Confirmed Active RA (rheumatoid arthritis) Confirmed Active Diagnosis Diagnosis Type Effective Dates Health Status Clinical Service Informant Aftercare following right knee joint replacement surgery Discharge Diagnosis 12/16/22 Procedures Procedure Date Related Diagnosis Body Site Status Knee replacement 1 11/04/22 Comple janel flush in knee right 2 03/2022 Com pleted achilles tendon right Com pleted Cataract bilateral Comple janel Colonoscope Completed Colostomy bag Completed Hernia Completed Hip replacement right x2 Completed Knee replacement left Com pleted Knee right tendon Complet ed Large intestine operation pa rtial removal Completed Prostate laser Completed Rotator cuff repair bi lateral Completed spine surgery x2 3 Comple janel stent x2 Completed 1right 2flush in knee 3spine surgery Social History Social History Type Response Smoking Status Never smoked cigaret afshan Sex Male Implantable Device List Procedure Provider Procedure Date Device Type Site Unknown Unknown 11/04/22 Unknown Unknown Device Identifier Serial Number Lot or Batch Number Manufacturing Date Expiration Date Distinct Identification Code MRI Safety Implantable Status Assigning Authority Unknown Unknown [id number] Unknown 04/07/25 Unknown Unknown Active Unk nown Unknown Unknown [id number] Unknown 01/05/31 Unknown Unknown Active Unkn own Unknown Unknown [id number] Unknown 08/05/32 Unknown Unknown Active Unknown Unknown Unknown [id number] Unknown 06/07/27 Unknown Unknown Active Unknown Unknown Unknown [id number] Unknown 08/05/26 Unknown Unknown Active Unkn own Outpatient Note * JOSE Alvarado, Diana M: PERFORM, MODIFY Event Display: .Outpt Note Authored Date: [id number] OUTPATIENT NOTE Name: RAFY CHICAS Patient Number:1 [id number] : 1945 Date of Service: 12/18/2022 _Chief complaint: s/p right total knee arthroplasty stay on 11/04/2022 HPI: Patient presents for 6-week follow-up status post aforementioned procedure. Patient presentedback to the emergency department about a month following surgery with severe pain and swelling. Hisknee was aspirated to rule out infection. Cell count 3700, 93% neutrophils and negative cultures. Patient has been maintained on doxycycline twice daily since surgery. He denies any prior history of septic arthritis as well as rheumatoid arthritis. He did just resume his Biologics about a week and a half ago. He denies any problems with the knee incision. No fever chills or night sweats. Physical exam: Patient is 77-year-old male appears to be no acute distress. He is seated in a wheelchair on today's date. On examination of the right knee, well-healed anterior based knee incision without incisional erythema or drainage. Appropriate postoperative swelling is noted. Right knee rangeof motion is 0-1 05 with no instability or significant pain with range of motion. Right lower extremity strength is intact. Calves are soft and nontender. Impression: Status post right total knee arthroplasty on 11/04/2022 complicated by postoperative hematoma. Prior history of septic arthritis about the right knee. Rheumatoid arthritis maintained on Biologics. Plan: Patient was seen in conjunction with Dr. Kern on today's date. Patient may discontinue doxycycline at this point. We will plan to see him back at the 1 year enid with updated x-rays right kneeper orthopedic protocol however should he have any new or worsening symptoms in the interim he willcall our office. All questions answered. Electronic Signature on File Electronically Reviewed/Signed by: Diana Alvarado PA-C Author Signature Dt/Tm:12/18/2022 02:15 PM Division of Orthopaedics Electronically Reviewed/Signed by: Manjit Kern III, MD, PhD Cosigner Signature Dt/Tm: 12/20/2022 11:28 AM Professor, Orthopaedics [facility] [address] [place] [id number] EMG Patient Care team information Care Team Personnel Name: Rama Hunt Amanda Position: Pharmacist Member Role: Pharmacy - Lifetime Name: DO Soliman Thomas Position: Referring Member Role: Primary Care Provider Address: Address: [facility] [address] [facility] [address] [place] [address] [place] Care Team Related Persons Name: AUBRIE CHICAS Address: [facility] Address: home [address] [place], [place] [phone] Name: DIANA ACHARYA Address: [place] Address: [address] [place], [place] [id number]
--- OUTSIDE RECORDS SUMMARY | 2023-02-16 22:06 | External Medical Summary | Summary of Care ---
Author Name Unknown Organization [facility] Address [address] [place] [address] Phone [phone] Care Team Providers Care Winder Contort Operator Name Role Phone JannyDanny duarte Primary Care Provider [phone] Reason for Visit * Reason Onset Date Comments Advice 01/19/2023 Encounter Details Date Type Department Care Team Description 01/19/2023 Telephone General Surgery, [address] [address] Services, Scheduling [address] [place] [address] Advice Social History Tobacco Use Types Packs/Day Years Used Date Smoking Tobacco: Never Assessed Sex Assigned at Date Recorded Not on file Job Start Date Occupation Industry Not on file Not on file Not on file documented as of this encounter Miscellaneous Notes * Telephone Encounter - Deena Dias LPN - 01/20/2023 11:[address] Aaron that I did not remove drain, also loose bowels can be do to surgery, told patient that was normal. * Telephone Encounter - Deena Dias LPN - 01/20/2023 11:34 AM EDT I did not remove the drain he is getting around 300 mls daily, he also wanted to know there are twotimes that his bowels just emptied by himself is that normal. * Telephone Encounter - LEONARD Cruz - 01/19/2023 6:00 PM EDT Pt's PT calling to see what Dr. Aaron's protocol is for his future PT. They are concerned continuing as they have been will exacerbate any issues post hernia surgery. Please call [phone] Arelis Macdonald or Marii. documented in this encounter Plan of Treatment Upcoming Encounters Date Type Specialty Care Team Description 01/28/2023 Office Visit General Surgery Rafy Aaron MD [address] [place] [address] Health Maintenance Due Date Last Done Comments Depression Screening, Annual for Pts 12 and Over 1957 Hepatitis C Screening 12/08/1961 DTaP,Tdap,and Td Vaccines (1 - Tdap) 12/08/1962 Pneumococcal Vaccine: 65+ Years (1 - PCV) 12/08/2008 COVID-19 Vaccine (5 - Moderna series) 01/17/2022 11/22/2021, 04/09/2021, 08/12/2020, Additional history exists Influenza Vaccine (FLU shot) (#1) 2023 03/30/2019, 03/04/2018 Zoster Vaccines Completed 04/13/2019, 02/01/2019 GARDASIL-HPV IMMUNIZATION SERIES Aged Out No longer eligible based on patient's age to complete this topic Hepatitis B Aged Out No longer eligi ble based on patient's age to complete this topic MENINGOCOCCAL (MENACTRA/MENVEO) Aged Out No longer eligible based on patient's age to complete this topic documented as of this encounter Medical Devices Not on filedocumented as of this encounter Care Teams Winder Contort Operator Relationship Specialty Start Date End Date [facility] Soliman [facility] [address] [facility] [address] [facility] - General Family Medicine 01/16/23 documented as of this encounter
--- OUTSIDE RECORDS SUMMARY | 2023-02-16 22:06 | External Medical Summary | Continuity of Care Document ---
Author Name Unknown Organization [facility] [address] [id number] Address [address], [place] [id number] Encounter [facility] [id number] Date(s): 06/24/22 - 06/24/22 [facility] [address] [facility] [address] [facility] Medicine [address] [place] [address], [address] [address] Encounter Diagnosis RA (rheumatoid arthritis)(Discharge Diagnosis) - 06/24/22 Arthritis of knee, right(Discharge Diagnosis) - 06/24/22 Discharge Disposition: Home or Self Care Attending Physician: MD Tamayo Paul S Allergies, Adverse Reactions, Alerts No Known Medication Allergies Assessment and Plan Extracted from: Title:Orthopaedics Office Visit Note Author:Tolu garcia MD, Hermes Grider Date:06/24/22 1.RA (rheumatoid arthritis ) 2.Arthritis of knee, right Significantly complicated issue with his right knee. Etiology of theinfection not clear but could have been spread fromother breaks in the skin or reactivated from his previous patellar tendoninfection. Immunocompromised withrheumatoid arthritis. Has significant knee RA. Recent infection. Not currently on antibiotics. I will need some previous medical records to understand fully what is going on but it sounds like he had asepsis secondary to aright knee infectiontreated surgically and with intravenous antibiotics. I would wait as long as possible to consider any type of injections into theright knee. I would consider a cortisone shotand then lubricating shots if necessary. Surgical intervention has an elevated risk of complicationsparticularly infection given the history. If this were necessaryand it may not even be possible, thenbased uponhishistory I would recommend management at a tertiary care Medical Center for this problem. I be happy to see him back as needed. Ifpain continues to bother himplease return and we can consider cortisone shot. Weight-bear as tolerated. He has some pain medication. Continue to use walker. It sounds like he has some general debilitation as well which could be helped with a further PT. Medications ICaps with Lutein and Zeaxanthin Start: 06/24/22 10:09:00 EST Start Date: 06/24/22 Status: Ordered isosorbide mononitrate 60 mg oral tablet, extended release Start: 06/24/22 10:07:00 EST Start Date: 06/24/22 Status: Ordered Klor-Con 10 Start: 06/24/22 10:08:00 EST Start Date: 06/24/22 Status: Ordered lidocaine 4% patch Start: 06/24/22 10:08:00 EST Start Date: 06/24/22 Status: Ordered lisinopril 10 mg oral tablet Start: 06/24/22 10:09:00 EST, 1 tab, PO, Daily Start Date: 06/24/22 Status: Ordered melatonin Start: 06/24/22 10:09:00 EST Start Date: 06/24/22 Status: Ordered MiraLax Start: 06/24/22 10:09:00 EST Start Date: 06/24/22 Status: Ordered Multi Vitamin+ Start: 06/24/22 10:09:00 EST Start Date: 06/24/22 Status: Ordered NexIUM Start: 06/24/22 10:10:00 EST Start Date: 06/24/22 Status: Ordered oxyCODONE 5 mg oral tablet Start: 06/24/22 10:10:00 EST, 1 tab, PO, q6h, Refills: 0, PRN: as needed for pain Start Date: 06/24/22 Status: Ordered pravastatin 40 mg oral tablet Start: 06/24/22 10:10:00 EST, 1 tab, PO, qhs Start Date: 06/24/22 Status: Ordered predniSONE Start: 06/24/22 10:11:00 EST Start Date: 06/24/22 Status: Ordered ranolazine Start: 06/24/22 10:11:00 EST Start Date: 06/24/22 Status: Ordered Rinvoq 15 mg oral tablet, extended release Start: 06/24/22 10:12:00 EST, 1 tab, PO, Daily, Supply Start Date: 06/24/22 Status: Ordered Senna 8.6 mg oral tablet Start: 06/24/22 10:12:00 EST Start Date: 06/24/22 Status: Ordered Travatan Z Start: 06/24/22 10:12:00 EST Start Date: 06/24/22 Status: Ordered Vitamin C Start: 06/24/22 10:12:00 EST Start Date: 06/24/22 Status: Ordered Vitamin D3 Start: 06/24/22 10:12:00 EST Start Date: 06/24/22 Status: Ordered Mental Status 06/24/22 Barriers to Learning one year None evide nt Mandatory Health Literacy Documentation Yes Health Literacy Communication Barriers N ever Primary Language Spanish Problem List Condition Confirmation Course Effective Dates Status Health St atus Informant Arthritis of knee, right Confirmed Active RA (rheumatoid arthritis) Confirmed Active Diagnosis Diagnosis Type Effective Dates Health Status Cl inical Service Informant RA (rheumatoid arthritis) Discharge Diagnosis 06/24/22 Arthritis of knee, right Discharge Diagnosis 06/24/22 Vital Signs Most recent to oldest [Reference Range]: 1 Height 182.8 cm (06/24/22 10:04 AM) Patient Weight 95.25 kg (06/24/22 10:04 AM) Body Mass Index 28.5 kg/m2 (06/24/22 10:04 AM) Social History Social History Type Response Smoking Status Never smoked cigaret afshan Sex Male
--- OUTSIDE RECORDS SUMMARY | 2023-02-16 22:06 | External Medical Summary | Continuity of Care Document ---
Author Name Unknown Organization [facility] [address] [place] [address] [place] [id number] Encounter [facility] [id number] Date(s): [facility]/25/22 - [facility]25/[facility] [address] [place] [address] [facility] [place] [address] [place] [address] [phone] Encounter Diagnosis Avitaminosis D(Discharge Diagnosis) - 07/25/22 Encounter for screening for diseases of the blood and blood-forming organs and certain disorders involving the immune mechanism(Discharge Diagnosis) - 07/25/22 Preop testing(Discharge Diagnosis) - 07/25/22 Infection of right knee(Discharge Diagnosis) - 07/25/22 Arthritis of right knee(Discharge Diagnosis) - 07/25/22 Discharge Disposition: Home or Self Care Attending Physician: MD Erlin, Manjit Franklin Allergies, Adverse Reactions, Alerts No Known Medication Allergies Medications ICaps with Lutein and Zeaxanthin Start: [...] Start Date: 06/24/22 Status: Ordered Mental Status 07/25/22 Barriers to Learning one year None evide nt Mandatory Health Literacy Documentation Yes Health Literacy Communication Barriers N ever Primary Language Urdu Problem List Condition Confirmation Course Effective Dates Status Health St atus Informant Arthritis of knee, right Confirmed Active Right knee pain Confirmed Active RA (rheumatoid arthritis) Confirmed Active Diagnosis Diagnosis Type Effective Dates Health Status Clinical Service Informant Avitaminosis D Discharge Diagnosis 07/25/22 Non-Specified Preop testing Discharge Diagnosis 07/25/22 Non-Specified Encounter for screening for diseases of the blood and blood-forming organs and certain disorders involving the immune mechanism Discharge Diagnosis 07/25/22 Non-Specified Arthritis of right knee Discharge Diagnosis 07/25/22 Non-Specified Infection of right knee Discharge Diagnosis 07/25/22 Non-Specified Procedures Procedure Date Related Diagnosis Body Site Status Procedure 1 03/2022 Completed Back 2 Completed Stent Completed 1flush in knee 2spine surgery Results Laboratory List Name Date Fluid on Hold in Laboratory (EXTRA FLUID ) 07/25/22 Specimen Type (SPECIMEN TYPE) 07/25/22 Cell Count w Differential, Fluid (FLD CE LL CNT & DIFF) 07/25/22 Specimen Type (SPECIMEN TYPE) 07/25/22 Most recent to oldest [Refer ence Range]: 1 2 Fluid Container Specimen available f rom 0 to 3 days based on specimen stability. Please use addon order if you wish to order testing. *Unknown* (07/25/22 10:18 AM) [facility] 52 % (07/25/22 10:17 AM) [facility] Source SYNOVIAL FLUID 1 *Unknown* (07/25/22 10:18 AM) SYNOVIAL FLUID 2 *Unknown* (07/25/22 10:17 AM) Baso,fl 0 % (07/25/22 10:17 AM) Eos,fl 0 % (07/25/22 10:17 AM) Lymph,fl 39 % (07/25/22 10:17 AM) Nuc Cell,fl 159 /uL 3 (07/25/22 10:17 AM) Neut,fl 9 % (07/25/22 10:17 AM) OtherMono,fl 0 % (07/25/22 10:17 AM) RBC,fl [id number] /uL (07/25/22 10:17 AM) 1Result Comment: RIGHT KNEE 2Result Comment: RIGHT KNEE 3Result Comment: "The reference intervals and other method performance specifications are unavailable for this body fluid. Comparision of the result with concentration in the blood, serum or plasma isrecommended." Orders for Microbiology Reports Name Date Fluid Culture w Smear (CULTURE, FLUID) Microbiology Reports TEST:Fluid.Cx STATUS:Unauthenticated BODY SITE: SOURCE:Synovial Fluid COLLECTED DATE/TIME:07/25/22 12:20 PM Culture NO GROWTH 2 DAYS Social History Social History Type Response Smoking Status Never smoked cigaret afshan Sex Male
--- OUTSIDE RECORDS SUMMARY | 2023-02-16 22:06 | External Medical Summary | Continuity of Care Document ---
Author Name Unknown Organization [facility] [id number] Address [address] [place] [id number] Care Team Providers Care Sociology Research Assistant Name Role Phone Danny Soliman Primary Care Physician [phone] Encounter [facility] [id number] Date(s): 11/19/22 - 11/19/22 [facility] [address] [id number] [facility] [address] [place] [id number] Encounter Diagnosis Arthritis of knee, right(Discharge Diagnosis) - 11/19/22 Discharge Disposition: Home or Self Care Attending Physician: JOSE Parra Jennifer R Referring Physician: MD Kern Charles M Allergies, Adverse Reactions, Alerts No Known Medication Allergies Assessment and Plan Extracted from: Title:Clinical Document Author:JOSE Parra Je nnifer R Date:11/19/22 ORTHOPAEDICS OUTPATIENT NOTE Name: RAFY CHICAS Patient Number: [id number] : 1945 Date of Service: 11/19/2022 Chief Complaint: Postop right total knee arthroplasty On 11/04/[address] Kern HPI: Bill is here today with his daughter. He states that he is doing fairly well. He notes a lot of swelling into his right leg but it has improved over the last few days. The end of last week he did have an ultrasound to rule out DVT which was negative. He states also last week he noted a lot of redness at the incision site when he removed the dressing. He does think that that has also improved but continues to be red. He has had no fevers or chills. He is on doxycycline twice a day. He is on Eliquis 2.5 mg twice daily for DVT prophylaxis. He has continued to hold his Rinvoq. He states that he does have a rheumatology appointment today. He has been working with his physical therapist on extension and flexion. He does feel that things are going well with that. He has a compression sock on his right leg knee-high. He states he did call in last week with some concerns for cellulitis and a possible open wound which not open. He states that the redness has improved. His lower leg continues to be swollen and sensitive but again states that it is better than last week. He has been able to ambulate and uses a walker. He presents today in wheelchair. He has been showering and cleaning his incision with soap and water. He is taking Tylenol 1000 mg every 8 hours scheduled. He has run out of tramadol and oxycodone and does feel that he needs some more to get him through the next couple of weeks. He does feel that taking 1 or 2 of those a day would help him significantly especially with his rehab. Current Home Meds: (Last Updated 11/19 14:02) DULoxetine (DULoxetine 30 mg oral delayed release capsule) 60 mg PO Daily acetaminophen (Tylenol 500 mg oral tablet) 1,000 mg PO q8h amiodarone (amiodarone 200 mg oral tablet) 200 mg PO Daily apixaban (Eliquis 2.5 mg oral tablet) 2.5 mg PO bid ascorbic acid/chondroitin/glucosa/catherine (ascorbic acid/chondroitin/glucosamine/manganese 20 mg-400 mg-500 mg-2 mg oral capsule) 1 tab PO Daily ascorbic acid (Vitamin C) 1,000 mg PO Daily aspirin 81 mg PO Daily doxycycline (doxycycline hyclate 100 mg oral capsule) 100 mg PO bid esomeprazole (esomeprazole 40 mg oral delayed release capsule) 40 mg PO Daily furosemide (furosemide 20 mg oral tablet) 20 mg PO Daily PRN: prn gabapentin (gabapentin 100 mg oral capsule) 300 mg am and pm and 100 mg in the middle of the day isosorbide mononitrate (isosorbide mononitrate 60 mg oral tablet, extended release) 60 mg PO qAM IMDUR (isosorbide mononitrate) is a SUSTAINED RELEASE tablet typically dosed daily. Do not confuse with ISORDIL (isosorbide dinitrate) commonly dosed three times daily. Arelis Aaron 06/24 10:08 lactobacillus acidophilus (lactobacillus acidophilus oral capsule) 1 cap PO Daily lisinopril (lisinopril 10 mg oral tablet) 10 mg PO Daily magnesium sulfate/potass Cl/sodium sulf (Sutab oral tablet) 0.5 tab PO melatonin 5 mg PO qhs multivitamin with minerals (ICaps with Lutein and Zeaxanthin) 1 tab PO Daily multivitamin (Vitamin B Complex with C) 1 tab PO Daily nitroglycerin 0.4 mg SL q5min PRN: as needed for chest pain omega-3 polyunsaturated fatty acids ([employer]-3 1000 mg oral capsule) 1,000 mg PO Daily oxyCODONE (oxyCODONE 5 mg oral tablet) 5 mg PO q6h PRN: as needed for pain 2nd line agent potassium chloride (Klor-Con 10) 10 mEq PO bid with lasix pravastatin (pravastatin 40 mg oral tablet) 40 mg PO qhs ranolazine 500 mg PO bid senna (Senna 8.6 mg oral tablet) 8.6 mg PO qhs traMADol (traMADol 50 mg oral tablet) 50 mg PO q4h PRN: as needed for pain 1st line agent travoprost ophthalmic (Travatan Z) 1 drop both eyes qPM upadacitinib (Rinvoq 15 mg oral tablet, extended release) 15 mg PO Daily - Currently on hold Allergies and Sensitivities: No Known Medication Allergies Past Medical History: Problems: Atrial fibrillation CAD (coronary artery disease) Right knee pain Arthritis of knee, right RA (rheumatoid arthritis) OBJECTIVE Vitals: Last Updated 11/19/22 13:25 Date Temp BP Location Pulse RR SpO2 Pain 11/19/22 36.1 11/19/22 7 11/05/22 4 Height and Weight: Last Updated 11/04/22 12:45 Date BMI Wt(kg) Wt(lb) Method Ht(cm) (ft-in) Method 11/04/22 30.4 101.6 224 Bed Scale 182.80 6-0 Standing 08/21/22 28.73 96 211 Standing Scale 182.8 6-0 Standing 06/24/22 28.5 95.25 210 Standing Scale 182.8 6-0 Physical Exam Exam of his right knee: He does have a small to moderate effusion in the prepatellar space and also into the right knee joint. There is some erythema around the jina and the anterior aspect of his knee. Mild warmth. No active drainage. Range of motion is 5 degrees of extension to 90 degrees of flexion today. He is able to independently straight leg raise with no extensor lag. There is no fluctuance. No underlying hematoma. He does have edema from his ankle to his mid thigh. Is mildly tender to touch. The knee size stocking was removed today and does reveal some erythematous skin but no open blisters or serous draining wounds. Dorsalis pedis and posterior tibial pulses are 1+. Full ankle range of motion and normal strength. He has some ecchymosis on the posterior aspect of his knee and upper thigh. Tolerates logrolling of his right hip. Stable ligamentous exam to his right knee. Jina are retained. Radiology images: No new x-rays of his right knee were obtained today. ASSESSMENT: Status post right total knee arthroplasty with Dr. Kern on November 04, 2022 PLAN: Recommended him to continue the doxycycline. He does have another 2 weeks of this but there is also a refill on the medication. Recommended continuing that until his postoperative follow-up with Dr. Kern. 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 Would recommend holding his rheumatology medication until after next week appointment. We did remove half of the jina, every other and left the other half in. I will follow-up with him next week for continuation and removal of the jina. I applied some Tubigrip with an ABD pad over the incision to the knee and thigh to hopefully help with the edema. Encouraged elevation. Advised him to put nothing behind his knee. Continue outpatient physical therapy at [facility]. He states that it [facility] they have some "compression devices that they can put on his lower legs". I think that this would be fine and may help with some of the edema. He did not feel the need to do another ultrasound as he did recently have 5 to 7 days ago that was negative. He also claims that the swelling is actually improved. I feel that there is no need to aspirate the prepatellar bursa or the joint. This may be something that needs to be done in the future but we will leave that up to Dr. Kern. I do not see any major signs for infection in his right knee today. Continue the Eliquis for DVT prophylaxis. I did prescribe him 10 tablets of tramadol and oxycodone to help with any breakthrough pain from the Tylenol. Recommended continuing the Tylenol. I will see him back in 1 week for repeat clinical exam and removal of the jina. They know to call with any problems, questions or concerns. Keep the follow-up with Dr. Kern in a month. He understands and agrees. This chart was completed utilizing KeyLemon voice recognition software. Grammatical errors, random word insertions, pronoun errors, and in complete sentences are an occasional consequence of the system. Any questions or concerns about the content, text, or information contained within the body of this dictation should be addressed directly to the provider for clarification. Medications amiodarone 200 mg oral tablet Start: 08/21/22 10:11:00 EDT, 1 tab, PO, Daily Start Date: 08/21/22 Status: Ordered ascorbic acid/chondroitin/glucosamine/manganese 20 mg-400 mg-500 mg-2 mg oral capsule Start: 08/21/22 10:17:00 EDT, 1 tab, PO, Daily Start Date: 08/21/22 Status: Ordered aspirin Start: 08/21/22 10:12:00 EDT, 81 mg =, PO, Daily Start Date: 08/21/22 Status: Ordered CoQmax [employer] 100 mg oral capsule Start: 08/21/22 10:14:00 EDT, 1 cap, PO, Daily Start Date: 08/21/22 Status: Ordered doxycycline hyclate 100 mg oral capsule Start: 11/05/22 8:38:00 EDT, 1 cap, PO, bid, Disp# 56 cap, Refills: 1, Pharmacy: [facility] Start Date: 11/05/22 Stop Date: 12/31/22 Status: [...] chest pain Start Date: 08/21/22 Status: Ordered [employer]-3 1000 mg oral capsule Start: 08/21/22 10:21:00 EDT, 1 cap, PO, Daily Start Date: 08/21/22 Status: Ordered oxyCODONE 5 mg oral tablet Start: 11/10/22 10:37:00 EDT, 5 mg =, PO, q4h, Disp# 20 tab, Refills: 0, PRN: pain - moderate (4-6), Pharmacy: [facility] Start Date: 11/10/22 Status: Ordered oxyCODONE 5 mg oral tablet Start: 11/19/22 14:00:00 EDT, 1 tab, PO, q6h, Disp# 10 tab, Refills: 0, 2nd line agent, Note to Pharmacy: continued therapy, PRN: as needed for pain, Pharmacy: [facility] Start Date: 11/19/22 Status: Ordered pravastatin 40 [...] therapy, PRN: as needed for pain, Pharmacy: [facility] Start Date: 11/19/22 Status: Ordered Travatan Z Start: 06/24/22 10:12:00 EST, 1 drop, both eyes, qPM Start Date: 06/24/22 Status: Ordered Tylenol 500 mg oral tablet Start: 11/05/22 8:37:00 EDT, 2 tab, PO, q8h Start Date: 11/05/22 Status: Ordered Ultram 50 mg oral tablet Start: 11/05/22 8:38:00 EDT, 1 tab, PO, q8h, Disp# 21 tab, Pharmacy: [facility] Start Date: 11/05/22 Status: Ordered Vitamin B Complex with C Start: 08/21/22 10:13:00 EDT, 1 tab, PO, Daily Start Date: 08/21/22 Status: Ordered Vitamin C Start: 06/24/22 10:12:00 EST, 1,000 mg =, PO, Daily Start Date: 06/24/22 Status: Ordered Mental Status 11/19/22 Barriers to Learning one year None evide nt Mandatory Health Literacy Documentation Yes Health Literacy Communication Barriers N ever Primary Language Belarusian Problem List Condition Confirmation Course Effective Dates Status Health St atus Informant Arthritis of knee, right Confirmed Active Atrial fibrillation Confirmed Active CAD (coronary artery disease) Confirmed Active Right knee pain Confirmed Active RA (rheumatoid arthritis) Confirmed Active Diagnosis Diagnosis Type Effective Dates Health Status Cl inical Service Informant Arthritis of knee, right Discharge Diagnosis 11/19/22 Procedures Procedure Date Related Diagnosis Body Site [...] x2 Completed 1flush in knee 2spine surgery Vital Signs Most recent to oldest [Reference Range]: 1 Temperature [36.5-37.9 DegC] 36.1 DegC *LOW* (11/19/22 1:25 PM) Social History Social History Type Response Smoking Status Never smoked cigaret afshan Sex Male Implantable Device List Procedure Provider Procedure Date Device Type Site Unknown Unknown 11/04/22 Unknown Unknown Device Identifier Serial Number Lot or Batch Number Manufacturing Date Expiration Date Distinct Identification Code MRI Safety Implantable Status Assigning Authority Unknown Unknown [id number] Unknown 04/07/25 Unknown Unknown Active Unk nown Unknown Unknown [id number] Unknown 01/05/31 Unknown Unknown Active Unkn own Unknown Unknown [id number] Unknown 08/05/32 Unknown Unknown Active Unknown Unknown Unknown [id number] Unknown 06/07/27 Unknown Unknown Active Unknown Unknown Unknown [id number] Unknown 08/05/26 Unknown Unknown Active Unkn own Ortho Outpt Note * JOSE Parra Jennifer R: PERFORM, MODIFY, MODIFY Event Display: Ortho Outpt Note Authored Date: [id number] ORTHOPAEDICS OUTPATIENT NOTE Name: RAFY CHICAS Patient Number: [id number] : 1945 Date of Service: 11/19/2022 Chief Complaint: Postop right total knee arthroplasty On 11/04/[address] Kern HPI: Bill is here today with his daughter. He states that he is doing fairly well. He notes a lotof swelling into his right leg but it has improved over the last few days. The end of last week he did have an ultrasound to rule out DVT which was negative. He states also last week he noted a lot of redness at the incision site when he removed the dressing. He does think that that has also improved but continues to be red. He has had no fevers or chills. He is on doxycycline twice a day. He is on Eliquis 2.5 mg twice daily for DVT prophylaxis. He has continued to hold his Rinvoq. He states that he does have a rheumatology appointment today. He has been working with his physical therapist onextension and flexion. He does feel that things are going well with that. He has a compression sockon his right leg knee-high. He states he did call in last week with some concerns for cellulitis and a possible open wound which not open. He states that the redness has improved. His lower leg continues to be swollen and sensitive but again states that it is better than last week. He has been ableto ambulate and uses a walker. He presents today in wheelchair. He has been showering and cleaning his incision with soap and water. He is taking Tylenol 1000 mg every 8 hours scheduled. He has run out of tramadol and oxycodone and does feel that he needs some more to get him through the next couple of weeks. He does feel that taking 1 or 2 of those a day would help him significantly especially with his rehab. Current Home Meds: (Last Updated 11/19 14:02) DULoxetine (DULoxetine 30 mg oral delayed release capsule) 60 mg PO Daily acetaminophen (Tylenol 500 mg oral tablet) 1,000 mg PO q8h amiodarone (amiodarone 200 mg oral tablet) 200 mg PO Daily apixaban (Eliquis 2.5 mg oral tablet) 2.5 mg PO bid ascorbic acid/chondroitin/glucosa/catherine (ascorbic acid/chondroitin/glucosamine/manganese 20 [id number] mg-2 mg oral capsule) 1 tab PO Daily ascorbic acid (Vitamin C) 1,000 mg PO Daily aspirin 81 mg PO Daily doxycycline (doxycycline hyclate 100 mg oral capsule) 100 mg PO bid esomeprazole (esomeprazole 40 mg oral delayed release capsule) 40 mg PO Daily furosemide (furosemide 20 mg oral tablet) 20 mg PO Daily PRN: prn gabapentin (gabapentin 100 mg oral capsule) 300 mg am and pm and 100 mg in the middle of the day isosorbide mononitrate (isosorbide mononitrate 60 mg oral tablet, extended release) 60 mg PO qAM IMDUR (isosorbide mononitrate) is a SUSTAINED RELEASE tablet typically dosed daily. Do not confuse with ISORDIL (isosorbide dinitrate) commonly dosed three times daily. Arelis Aaron 06/24 10:08 lactobacillus acidophilus (lactobacillus acidophilus oral capsule) 1 cap PO Daily lisinopril (lisinopril 10 mg oral tablet) 10 mg PO Daily magnesium sulfate/potass Cl/sodium sulf (Sutab oral tablet) 0.5 tab PO melatonin 5 mg PO qhs multivitamin with minerals (ICaps with Lutein and Zeaxanthin) 1 tab PO Daily multivitamin (Vitamin B Complex with C) 1 tab PO Daily nitroglycerin 0.4 mg SL q5min PRN: as needed for chest pain omega-3 polyunsaturated fatty acids ([employer]-3 1000 mg oral capsule) 1,000 mg PO Daily oxyCODONE (oxyCODONE 5 mg oral tablet) 5 mg PO q6h PRN: as needed for pain 2nd line agent potassium chloride (Klor-Con 10) 10 mEq PO bid with lasix pravastatin (pravastatin 40 mg oral tablet) 40 mg PO qhs ranolazine 500 mg PO bid senna (Senna 8.6 mg oral tablet) 8.6 mg PO qhs traMADol (traMADol 50 mg oral tablet) 50 mg PO q4h PRN: as needed for pain 1st line agent travoprost ophthalmic (Travatan Z) 1 drop both eyes qPM upadacitinib (Rinvoq 15 mg oral tablet, extended release) 15 mg PO Daily - Currently on hold Allergies and Sensitivities: No Known Medication Allergies Past Medical History: Problems: Atrial fibrillation CAD (coronary artery disease) Right knee pain Arthritis of knee, right RA (rheumatoid arthritis) OBJECTIVE Vitals: Last Updated 11/19/22 13:25 Date Temp BP Location Pulse RR SpO2 Pain 11/19/22 36.1 11/19/22 7 11/05/22 4 Height and Weight: Last Updated 11/04/22 12:45 Date BMI Wt(kg) Wt(lb) Method Ht(cm) (ft-in) Method 11/04/22 30.4 101.6 224 Bed Scale 182.80 6-0 Standing 08/21/22 28.73 96 211 Standing Scale 182.8 6-0 Standing 06/24/22 28.5 95.25 210 Standing Scale 182.8 6-0 Physical Exam Exam of his right knee: He does have a small to moderate effusion in the prepatellar space and alsointo the right knee joint. There is some erythema around the jina and the anterior aspect of hisknee. Mild warmth. No active drainage. Range of motion is 5 degrees of extension to 90 degrees of flexion today. He is able to independently straight leg raise with no extensor lag. There is no fluctuance. No underlying hematoma. He does have edema from his ankle to his mid thigh. Is mildly tender to touch. The knee size stocking was removed today and does reveal some erythematous skin but no open blisters or serous draining wounds. Dorsalis pedis and posterior tibial pulses are 1+. Full ankle range of motion and normal strength. He has some ecchymosis on the posterior aspect of his knee and upper thigh. Tolerates logrolling of his right hip. Stable ligamentous exam to his right knee. [place] are retained. Radiology images: No new x-rays of his right knee were obtained today. ASSESSMENT: Status post right total knee arthroplasty with Dr. Kern on November 04, 2022 PLAN: Recommended him to continue the doxycycline. He does have another 2 weeks of this but there is also a refill on the medication. Recommended continuing that until his postoperative follow-up with Dr. Kern. 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 Would recommend holding his rheumatology medication until after next week appointment. We did remove half of the jina, every other and left the other half in. I will follow-up with him next week for continuation andremoval of the jina. I applied some Tubigrip with an ABD pad over the incision to the knee and thigh to hopefully help with the edema. Encouraged elevation. Advised him to put nothing behind his knee. Continue outpatient physical therapy at [facility]. He states that it [facility] they have some "compression devices that they can put on his lower legs". I think that this would be fine and may help with some of the edema. He did not feel the need to do another ultrasound as he did recently have 5 to 7 days ago that was negative. He also claims that the swelling is actually improved. I feel that th ere is no need to aspirate the prepatellar bursa or the joint. This may be something that needs to be done in the future but we will leave that up to Dr. Kern. I do not see any major signs for infection in his right knee today. Continue the Eliquis for DVT prophylaxis. I did prescribe him 10 tablets of tramadol and oxycodone to help with any breakthrough pain from the Tylenol. Recommended continuing the Tylenol. I will see him back in 1 week for repeat clinical exam and removal of the jina.They know to call with any problems, questions or concerns. Keep the follow-up with Dr. Kern in a month. He understands and agrees. This chart was completed utilizing KeyLemon voice recognition software. Grammatical errors,random word insertions, pronoun errors, and in complete sentences are an occasional consequence of the system. Any questions or concerns about the content, text, or information contained within the body of this dictation should be addressed directly to the provider for clarification. Electronic Signature on File CC: Manjit Kern III, MD, PhD [address] [place] [address] Electronically Reviewed/Signed by: Mercedes Parra PA-C Author Signature Dt/Tm:11/19/2022 03:44PM Division of Sports Medicine Electronically Reviewed/Signed by: Herems Tamayo MD Cosigner Signature Dt/Tm: 11/19/2022 05:02 PM Division of Sports Medicine [facility] Patient Care team information Care Team Personnel Name: Rama Hunt Amanda Position: Pharmacist Member Role: Pharmacy - Lifetime Name: DO Soliman Thomas Position: Referring Member Role: Primary Care Provider Address: Address: [facility] [address] [facility] [address] [place] [address] [place] Care Team Related Persons Name: AUBRIE CHICAS Address: [place] Address: home [address] [place], [place] [id number] Name: MORE ACHARYA Address: [place] Address: home [address] [place], [place] [id number]
--- OUTSIDE RECORDS SUMMARY | 2023-02-16 22:06 | External Medical Summary | Continuity of Care Document ---
Author Name Unknown Organization [facility] [address] [place] [id number] Encounter [facility] [id number] Date(s): 08/21/22 - 08/21/22 [facility] [address] [facility] [address], [address], [address] [place] [address] Encounter Diagnosis Preop examination(Discharge Diagnosis) - 08/21/22 Body mass index [BMI] 28.0-28.9, adult(Discharge Diagnosis) - 08/21/22 Discharge Disposition: Home or Self Care Attending Physician: PHILLIP Gage Nancy W Referring Physician: MD Kern Charles M Allergies, Adverse Reactions, Alerts No Known Medication Allergies Medications acetaminophen Start: 08/21/22 10:10:00 EDT, 650 [...] Daily Start Date: 08/21/22 Status: Ordered CoQmax [place] 100 mg oral capsule Start: 08/21/22 10:14:00 [...] chest pain Start Date: 08/21/22 Status: Ordered [place]-3 1000 mg oral capsule Start: 08/21/22 10:21:00 [...] Start Date: 06/24/22 Status: Ordered Mental Status 08/21/22 Barriers to Learning one year None evide nt Mandatory Health Literacy Documentation Yes Health Literacy Communication Barriers N ever Primary Language [place] Problem List Condition Confirmation Course Effective Dates Status Health St atus Informant Arthritis of knee, right Confirmed Active Atrial fibrillation Confirmed Active CAD (coronary artery disease) Confirmed Active Right knee pain Confirmed Active RA (rheumatoid arthritis) Confirmed Active Diagnosis Diagnosis Type Effective Dates Health Status Clinical Service Informant Preop examination Discharge Diagnosis 08/21/22 Body mass index [BMI] 28.0-28.9, adult Discharge Diagnosis 08/21/22 Non-Specified Procedures Procedure Date Related Diagnosis [...] oldest [Reference Range]: 1 Height 182.8 cm (08/21/22 10:32 AM) Patient Weight 96 kg (08/21/22 10:32 AM) Body Mass Index 28.73 kg/m2 (08/21/22 10:32 AM) Temperature [36.5-37.9 DegC] 36.3 DegC *LOW* (08/21/22 10:32 AM) Heart Rate 53 bpm (08/21/22 10:32 AM) Respiratory Rate 18 br/min (08/21/22 10:32 AM) Blood Pressure 134/88mmHg (08/21/22 10:32 AM) Mean Blood Pressure 104 mmHg (08/21/22 10:32 AM) Cuff Pulse Pressure 46 mmHg (08/21/22 10:32 AM) BP Location # 1 Left Arm (08/21/22 10:32 AM) Social History Social History Type Response Smoking Status Never smoked cigaret afshan Sex Male
== END 2023-02-13 16:51 | disposition home or self-care (01) | DRG 862 ==
LOC: ED 20:11 → SUATTDRO 23:07 → EDINP 23:07 → 2S 02-06 14:19

== ENCOUNTER 2023-06-29 16:29 | Inpatient (IN) ==
[2023-06-29] MEDS ORDERED: ACETAMINOPHEN 500 MG TAB PO STA (16:47)
[2023-06-29] MEDS ORDERED: SODIUM CHLORIDE 0.9% 500 ML IV STA (16:47)
--- NOTE | 2023-06-29 16:47 | ED Triage Note ---
Date of Service June 29, 2023 Provider in Triage Author: Yris Muller History of Present Illness This patient was briefly evaluated while in triage. An abbreviated physical exam was performed. This patient is a 77-year-old Male who presents to the ED for evaluation of a fever. Started with temp of 101.2 F this morning. Has been shaking and twitching a lot from the fever. Having a lot of pain of the right knee as well. He has a lot of scratches to his knees from his dog jumping up on his and scratching him. Cough with green phlegm as well. Also has mild chest pain and SOB with his cough. Has been having abdominal pain for the past week. Denies nausea or vomiting. Feels like his right knee pain is the worst symptom. Previous history of sepsis and his PCP wanted him to be checked out. Physical Exam GENERAL: Non-toxic and in no acute distress. HEENT: Pupils equal. No obvious scleral icterus. Pharynx without erythema or edema. HEART: Regular rate and rhythm. LUNGS: Clear to auscultation. No accessory muscle use. ABDOMEN: Mostly soft, but there is an indurated area to the center of the abdomen around the central healed incisional site. Tender to palpation centrally. NEURO: Alert and oriented. No obvious neurological deficits on quick neuro exam. MUSCULOSKELETAL: The patient has scabbed over scratch pierce to the anterior aspect of the bilateral knees. The right knee is erythematous, edematous, and warm to touch. The left knee with mild erythema, but no significant edema or warmth. Initial orders for labs and / or imaging were placed and patient was placed in the waiting area until a bed is available. Please see further documentation for the full ED course. MDM / Impression Impression Impression: Sepsis, Leukocytosis, Non-ST elevation IA (NSTEMI), Cellulitis of knee, right
[2023-06-29 17:19] LABS: Hematocrit (blood only) 38.5 % (42.0-52.0); Hemoglobin 12.1 g/dl (14.0-18.0); Mean Corpuscular Hemoglobin 27.1 pg (25.0-34.0); Mean Corpuscular Hgb Conc 31.4 g/dL (32.0-36.0); Mean Corpuscular Volume 86.3 fL (80.0-100.0); Platelet Count 413 K/uL (130-400); RDW Coefficient of Variation 17.7 % (11.5-14.5); RDW Standard Deviation 55.7 fL (36.4-46.3); Red Blood Count 4.46 M/uL (4.70-6.10); White Blood Count 21.91 K/ul (4.8-10.8)
--- NOTE | 2023-06-29 17:29 | XRay Report ---
XR chest 1V portable CLINICAL HISTORY: Chest pain, nonspecific TECHNIQUE: Single frontal radiograph of the chest was obtained. Comparison: Comparison is made to chest radiograph 05/04/2023 FINDINGS: No lines and tubes are seen. Cardiomegaly is noted. The lungs are clear. No evidence of pleural effus ion or pneumothorax. IMPRESSION: No acute chest disease. Cardiomegaly is noted. ACT 112: Negative or not required by law. Electronically signed by: Ramón You M.D. 06/29/2023 5:28 PM
[2023-06-29 17:30] LABS: Alanine Aminotransferase 37 U/L (7-52); Albumin Globulin Ratio 1.1 (0.9-2); Albumin Level 4.2 gm/dl (3.4-5.0); Alkaline Phosphatase 81 U/L (34-104); Anion Gap 9 (3-11); Aspartate Aminotransferase 24 U/L (13-39); BUN Creatinine Ratio 30.9 (10-20); Bilirubin,Total 0.6 mg/dl (0.2-1.0); Blood Urea Nitrogen 46 mg/dl (6-23); Calcium 9.3 mg/dl (8.6-10.3); Carbon Dioxide 29 mmol/L (21-32); Chloride 95 mmol/L (98-107); Globulin 3.9 gm/dl (2.5-4.0); Glucose 125 mg/dl (70-99(Fasting)); Lipase 40 U/L (11-82); Magnesium 1.9 mg/dl (1.7-2.4); Potassium 4.9 mmol/L (3.5-5.1); Sodium 133 mmol/L (136-145); Total Protein 8.1 gm/dl (6.0-8.3)
[2023-06-29 17:36] LABS: Troponin I High Sensitivity 24.5 pg/ml (0-20)
[2023-06-29 17:37] LABS: Basophils # (auto) 0.05 K/uL (0.00-0.20); Basophils % (auto) 0.2 %; Eosinophils # (auto) 0.02 K/uL (0.00-0.50); Eosinophils % (auto) 0.1 %; Immature Granulocytes # (auto) 0.15 K/uL (0.01-0.20); Immature Granulocytes % (auto) 0.7 %; Lymphocytes # (auto) 0.61 K/uL (1.20-3.40); Lymphocytes % (auto) 2.8 %; Monocytes # (auto) 1.29 K/uL (0.11-0.59); Monocytes % (auto) 5.9 %; Neutrophils # (auto) 19.79 K/uL (1.40-6.50); Neutrophils % (auto) 90.3 %
[2023-06-29 17:39] LABS: INR 1.1 (0.9-1.1); Partial Thromboplastin Ratio 0.9; Partial Thromboplastin Time 25 Seconds (21-31); Prothrombin Time 11.6 Seconds (9.0-12.0)
[2023-06-29] MEDS ORDERED: OPTIRAY 320 500ml IV ONE (17:48)
--- NOTE | 2023-06-29 17:52 | XRay Report ---
XR knee RT 1 or 2V routine CLINICAL HISTORY: Knee pain, swelling, fever TECHNIQUE: 2 views of the right knee were obtained. Comparison: Comparison is made to knee radiograph 11/28/2022 FINDINGS: There is no evidence of an acute fracture. Patient is status post total knee arthroplasty. No perihar dware lucency or hardware fracture is seen. No joint effusion is seen. Soft tissue swelling is seen a bout the knee. IMPRESSION: Soft tissue swelling is seen about the knee. No bony abnormality is seen. Knee arthroplasty is unrema rkable. ACT 112: Negative or not required by law. Electronically signed by: Ramón You M.D. 06/29/2023 5:49 PM
[2023-06-29] MEDS ORDERED: CEFEPIME 2,000 MG/20 ML VIAL IV STA (17:58)
--- NOTE | 2023-06-29 18:20 | CT Scan Report ---
CT abd pelvis IV con only CLINICAL HISTORY: Abdominal pain, fever TECHNIQUE: Helical axial images of the abdomen and pelvis were obtained and displayed. Automated dose lowering techniques and/or adjustment according to patient size were utilized for this exam. This e xam was performed with intravenous contrast. CT DOSE: 1549.17 mGy.cm COMPARISON: Comparison is made to CT abdomen pelvis 01/26/2023 FINDINGS: Lower chest: Atelectasis is in the lower lungs. Liver: Unremarkable. No focal lesions are seen. Gallbladder and biliary tree: No calcified gallstones. Normal caliber wall. No intra- or extrahepatic biliary ductal dilation. Pancreas: A cystic lesion in the pancreas measures 21 mm in diameter. Spleen: Calcifications are noted in the spleen compatible with prior granulomatous disease. Adrenals: Unremarkable. Kidneys and ureters: Renal cysts are seen. Bladder: Unremarkable. Reproductive organs: Clips in the inguinal canals compatible with vasectomy. Bowel: Diverticulosis is seen without evidence of diverticulitis. Patient is status post appendectomy and colonic resection. There is a small hiatal hernia. Lymph nodes Retroperitoneal: Unremarkable. Pelvic: Unremarkable. Mesenteric: Unremarkable. Peritoneum: Normal. Vessels: Atherosclerotic calcifications are seen. Abdominal wall: Ventral hernia repair is seen. Additional left lateral and ventral fat-containing her nias are noted. There is a tiny fluid collection measuring 6 x 26 mm in length. Bones: Degenerative changes in the visualized spine. IMPRESSION: Postsurgical changes of ventral hernia repair. Previously noted gas and fluid collection is significa ntly decreased in size. No remaining subcutaneous gas is seen. No other abnormalities are seen to exp eric fever and abdominal pain. ACT 112: Negative or not required by law. Electronically signed by: Ramón You M.D. 06/29/2023 6:18 PM
[2023-06-29 18:31] LABS: Adenovirus PCR Not Detected (NotDetected); Bordetella parapertussis PCR Not Detected (NotDetected); Bordetella pertussis PCR Not Detected (NotDetected); Chlamydia pneumoniae PCR Not Detected (NotDetected); Coronavirus 229E PCR Not Detected (NotDetected); Coronavirus CoV-2 (COVID19)PCR Not Detected (NotDetected); Coronavirus HKU1 PCR Not Detected (NotDetected); Coronavirus NL63 PCR Not Detected (NotDetected); Coronavirus OC43PCR Not Detected (NotDetected); Human Metapneumovirus PCR Not Detected (NotDetected); Influenza A PCR Not Detected (NotDetected); Influenza B PCR Not Detected (NotDetected); Mycoplasma pneumoniae PCR Not Detected (NotDetected); Parainfluenza Virus 1 PCR Not Detected (NotDetected); Parainfluenza Virus 2 PCR Not Detected (NotDetected); Parainfluenza Virus 3 PCR Not Detected (NotDetected); Parainfluenza Virus 4 PCR Not Detected (NotDetected); Respiratory Syncytial VirusPCR Not Detected (NotDetected); Rhinovirus/Enterovirus PCR Not Detected (NotDetected)
[2023-06-29] MEDS ORDERED: VANCOMYCIN CONSULT ACTIVE PRN (18:55)
[2023-06-29] MEDS ORDERED: VANCOMYCIN HCL 2,750 MG in SODIUM CHLORIDE 0.9% 500 ML IV ONE (18:55)
[2023-06-29] MEDS ORDERED: SODIUM CHLORIDE 0.9% 2,000 ML IV ONE (18:57)
[2023-06-29] MEDS ORDERED: fentaNYL citrate PF 100 MCG/2 ML VIAL IV STA (18:57)
--- NOTE | 2023-06-29 19:08 | Emergency Department Note ---
Impression & Plan Sepsis, Leukocytosis, Non-ST elevation [place] (NSTEMI), Cellulitis of knee, right ED Provider Note HISTORY OF PRESENT ILLNESS: Patient is a 77-year-old male presenting with rigors, fever and right knee pain. Patient reports that he woke up yesterday and had chills and was shaking. He states that he had a fever up to 101. He reports that he woke up today and had significant pain in his right knee. He reports that he tries to ambulate with a walker at baseline but in the last 3 days has been unable to bear weight on his right leg secondary to pain. He states that he has bilateral knee arthroplasties. He states that he previously had a septic joint over a year ago which was worked prompted the joint replacement. He states his temperature was up to 101.3. He did not take anything for his temperature. He denies any chest pain but does report some significant shortness of breath that started today. He states has been coughing up green/yellow sputum. He denies any nausea, vomiting or diarrhea. Denies any dysuria or hematuria. He does report some lower abdominal pain. He denies any injuries to the right knee or recent falls. He reports that he has had discoloration of his knee since his knee replacement surgery, but he noticed that today it was slightly more red and very painful to the touch. Denies any recent travel or recent sick contact exposures. ROS: as above PHYSICAL EXAM: Constitutional: Patient appears in no acute distress. HENT: Head: Normocephalic and atraumatic. Eyes: EOMI, PERRL Mouth/Throat: Mucous membranes moist. Neck: Trachea midline. Neck supple. Cardiovascular: RRR, No murmurs, rubs or gallops. Intact distal pulses. Pulmonary/Chest: No respiratory distress. Breath sounds clear and equal bilaterally. No wheezes or rales. Abdominal: Abdomen soft, no tenderness, rebound or guarding. Patient has tenderness to palpation diffusely across the lower abdomen. Musculoskeletal: - RLE: Patient's right knee is ecchymotic and there are noted to be well- healed scratches on the anterior knee. Patient does have some slight erythema overlying the anterior knee and is unable to range the knee secondary to pain. He has tenderness to palpation diffusely across the anterior knee. Intact DP and PT pulses. He is able to dorsiflex and plantarflex the ankle and wiggle his toes. Sensation intact to light touch throughout the nerve distributions of the knee. Skin: Warm and dry. No rash, erythema, pallor or cyanosis Psychiatric: Appropriate mood and affect for situation. Neurological: Alert and keenly responsive. CN II-XII grossly intact MDM: - Vitals signs showed fever. - History obtained via patient. Patient presents with fever, rigors and right knee pain. Patient reports he woke up yesterday had chills and was shaking. He had fever up to 101. He states that today he woke up and had significant pain in his right knee. He has been unable to ambulate secondary to pain in the right knee for the last 3 days, but woke up today and noticed there was swelling and some red discoloration to the knee. He did not take anything for his fever. Denies any chest pain but does report some shortness of breath today. Denies any nausea, vomiting or diarrhea. He has had some lower abdominal pain. Denies any recent falls or injury to the right knee. - Chronic conditions affecting care: GERD; CHF (previous EF 55-60%); Afib; CAD; rheumatoid arthritis - Differential diagnoses include, but are not limited to: UTI; pneumonia; abdominal abscess; septic joint; cellulitis; viral syndrome - Order placed for continuous cardiac monitoring. At this time, monitor showed rate of 73 bpm with normal sinus rhythm, per my interpretation. - External medical records reviewed. Primary care visit note dated 06/26/2023 was reviewed. Patient follows in their clinic for his chronic cough. - EKG interpreted by myself showed normal sinus rhythm. Rate 75 bpm. QTc 460. No acute ischemic changes. - Laboratory workup interpreted by myself showed leukocytosis (WBC 21.91) with left shift; hyponatremia (Na 133); CKD; elevated troponin (24.5); normal lactate; normal lipase; normal procalcitonin - CXR negative for pneumonia, per my interpretation - CT abdomen/pelvis with IV contrast negative for acute pathology, per radiology. - Respiratory viral panel negative - Right knee xray read as soft tissue swelling around the knee per radiology - Significant delay in patient receiving his sepsis fluid resuscitation and antibiotic regimen, secondary to ER overcrowding. Blood cultures obtained when patient was brought back to an examination room and IV vancomycin and cefepime ordered for empiric coverage. - Patient given 2.5L NS in ER. - Unclear source of patient's sepsis at this time. Likely cellulitis of right knee, given significant pain on palpation, but septic joint cannot be completely ruled out. - Discussion was had with foster care worker about patient's case and need for admission - Hospitalist consulted for admission - Patient admitted to [facility] Hospitalist service for further evaluation and management. ASSESSMENT AND PLAN: Diagnosis: sepsis; leukocytosis; NSTEMI; right knee cellulitis Plan: Admit Past Med/Surg History Medical History Abdominal wall abscess Incisional hernia Lumbar radiculopathy Sepsis Septicemia due to Streptococcus pneumoniae Heart failure with preserved ejection fraction Respiratory failure with hypoxia Hypomagnesemia Pneumonia Atherogenic dyslipidemia Benign essential hypertension Coronary artery disease Lumbar stenosis Rheumatoid arthritis Hx of staphylococcal infection Atrial fibrillation Myocardial Infarction Sleep apnea GERD (gastroesophageal reflux disease) Anxiety and depression HFrEF (heart failure with reduced ejection fraction) Surgical History Hx of Achilles tendon repair Hx of knee surgery Hx of rotator cuff surgery Hx of total knee replacement Hx of total hip arthroplasty History of colostomy reversal History of bowel resection Hx of hernia repair History of esophagogastroduodenoscopy (EGD) Hx of colonoscopy Hx of bilateral cataract extraction History of heart artery stent History of cardiac cath Family History Grandmother (Maternal) Diabetes Daughter Diabetes Father Suicide Hypertension Denies family history of Ovarian cancer Prostate cancer Myocardial infarction Breast cancer Lung cancer Colorectal cancer Stroke Social History Smoking Status: Never smoker Second Hand Exposure: No; Do You Dip or Chew Tobacco: No; Hx Alcohol Use: Yes Alcohol type: wine Alcohol Intake Frequency: 4 or More x per/Week Hx Substance Use: No Preferred Language: Bulgarian Communication Ability: Effective Visual Impairment: No Limitations Hearing Ability: Normal Branch Rental Manager Required: No Beliefs That Will Affect Care: None marital status: Single Current Living Situation: Senior Living Current Living Situation Comment: Independent living current occupational status: retired How many Children do You have: 2 Feels Safe at Home: Yes Childhood Exposure to Second-Hand Smoke: Yes caffeine: Yes Dental Care, Regularly: Yes Physical Activity Frequency: Does not Exercise Seatbelt Use: always Sunscreen Use: Yes Assistive Devices: Walker and Wheelchair Allergies Allergies Allergy/AdvReac Type Severity Reaction Status Date / Time cat dander Allergy Severe Swelling Verified 06/29/23 18:39 of Lip/Tongue/Throat Home Meds Home Medications Medication Instructions Recorded Confirmed sennosides 8.6 mg capsule (senna) 8.6 mg PO AMHS 06/19/22 06/29/23 ascorbic acid (vitamin C) 500 mg 1,000 mg PO QAM 08/07/22 06/29/23 capsule aspirin 81 mg tablet,delayed 81 mg PO QAM 08/07/22 06/29/23 release (Adult Low Dose Aspirin) coenzyme Q10 100 mg capsule 100 mg PO QAM 08/07/22 06/29/23 isosorbide mononitrate 60 mg 60 mg PO QAM 08/07/22 06/29/23 tablet,extended release 24 hr lactobacillus combination no.9 4 6,000 mmu cells PO QAM PRN use 08/07/22 06/29/23 billion cell capsule (Adult 50 with antibiotics Plus Probiotic) qpjkrlnf-qpahedk-yijo-lutein tablet 1 tab PO QAM 08/07/22 06/29/23 acetaminophen 500 mg capsule 1,000 mg PO TID 11/11/22 06/29/23 apixaban 2.5 mg tablet (Eliquis) 2.5 mg PO BID 02/05/23 06/29/23 duloxetine 60 mg capsule,delayed 60 mg PO QAM 02/05/23 06/29/23 release esomeprazole magnesium 40 mg 40 mg PO HS 02/05/23 06/29/23 capsule,delayed release (Nexium) potassium chloride 10 mEq 20 meq PO DAILY PRN when taking 02/05/23 06/29/23 tablet,extended release(part/cryst) lasix thiamine HCl (vitamin B1) 100 mg 100 mg PO QAM 02/05/23 06/29/23 tablet melatonin 5 mg capsule 5 mg PO HS PRN Sleep 02/16/23 06/29/23 latanoprost 0.005 % eye drops 1 drp ophthalmic (eye) QPM 03/31/23 06/29/23 upadacitinib 15 mg tablet,extended 15 mg PO DAILY 05/04/23 06/29/23 release 24 hr (Rinvoq) amiodarone 200 mg tablet 200 mg PO DAILY 06/29/23 06/29/23 metoprolol tartrate 25 mg tablet 12.5 mg PO BID 06/29/23 06/29/23 mirtazapine 15 mg tablet 15 mg PO HS 06/29/23 06/29/23 olmesartan 5 mg tablet 5 mg PO DAILY 06/29/23 06/29/23 pravastatin 40 mg tablet 40 mg PO DAILY 06/29/23 06/29/23 ranolazine 500 mg tablet,extended 500 mg PO BID 06/29/23 06/29/23 release,12 hr Previous Rx's Medication Instructions Recorded nitroglycerin 0.4 mg sublingual 0.4 mg sublingual Q5M PRN chest 07/23/22 tablet pain #30 tabs cholecalciferol (vitamin D3) 250 250 mcg PO DAILY 90 days #90 tabs 09/19/22 mcg (10,000 unit) tablet furosemide 20 mg tablet 20 mg PO DAILY PRN edema or weight 12/25/22 gain #30 tabs cyanocobalamin (vitamin B-12) 500 1,000 mcg (2 x 500 mcg) PO QAM #30 01/18/23 mcg tablet tabs folic acid 1 mg tablet 1 mg PO QAM #30 tabs 01/18/23 hydroxyzine HCl 10 mg tablet 10 mg PO HS PRN anxiety or 01/18/23 insomnia #14 tabs diclofenac sodium 1 % topical gel 2 g topical QID #200 grams 04/24/23 (Voltaren Arthritis Pain) omega 2-fif-gyn-fish oil 1,000 mg 1 cap PO QAM #90 caps 04/27/23 (120 mg-180 mg) capsule (Fish Oil) ipratropium bromide 21 mcg (0.03 2 spray intranasal BID #30 mL 05/21/23 %) nasal spray gabapentin 400 mg capsule 400 mg PO TID 30 days #90 caps 06/26/23 Results & Data (ED) Vital Signs Vital Signs - 24 hr 06/29/23 16:44 06/29/23 18:14 06/29/23 18:37 Temperature 38.1 C H Temperature Source Oral Pulse Rate 74 73 74 Respiratory Rate 18 19 Respiratory Effort / Characteristics Non-Labored Spontaneous Respiratory Depth Normal Respiratory Pattern Regular Blood Pressure 132/62 131/62 Blood Pressure Mean 85 85 Blood Pressure Position Sitting Pulse Oximetry 94 95 Oxygen Delivery Method Room Air Room Air Sepsis Recent Fever Within 48 Hours Yes Sepsis New/Unexplained Change in Mental Status N/A Sepsis Action Taken by Nursing No Action Required 06/29/23 19:00 Temperature Temperature Source Pulse Rate 72 Respiratory Rate 22 Respiratory Effort / Characteristics Respiratory Depth Respiratory Pattern Blood Pressure 126/66 Blood Pressure Mean 86 Blood Pressure Position Pulse Oximetry 94 Oxygen Delivery Method Room Air Sepsis Recent Fever Within 48 Hours Sepsis New/Unexplained Change in Mental Status Sepsis Action Taken by Nursing Laboratory Data 06/29/23 16:59 06/29/23 16:59 Lab Results 06/29/23 06/29/23 Range/Units 16:59 Unknown WBC 21.91 H (4.8-10.8) K/ul RBC 4.46 L (4.70-6.10) M/uL Hgb 12.1 L (14.0-18.0) g/dl Hct 38.5 L (42.0-52.0) % MCV 86.3 (80.0-100.0) fL MCH 27.1 (25.0-34.0) pg MCHC 31.4 L (32.0-36.0) g/dL RDW Std Deviation 55.7 H (36.4-46.3) fL RDW Coeff of Sammie 17.7 H (11.5-14.5) % Plt Count 413 H (130-400) K/uL MPV 9.0 L (9.4-12.4) fL Immature Gran % (Auto) 0.7 % Neut % (Auto) 90.3 % Lymph % (Auto) 2.8 % [place] % (Auto) 5.9 % Eos % (Auto) 0.1 % Baso % (Auto) 0.2 % Neut # (Auto) 19.79 H (1.40-6.50) K/uL Lymph # (Auto) 0.61 L (1.20-3.40) K/uL [place] # (Auto) 1.29 H (0.11-0.59) K/uL Eos # (Auto) 0.02 (0.00-0.50) K/uL Baso # (Auto) 0.05 (0.00-0.20) K/uL Immature Gran # (Auto) 0.15 (0.01-0.20) K/uL PT 11.6 (9.0-12.0) Seconds INR 1.1 (0.9-1.1) APTT 25 (21-31) Seconds PTT Ratio 0.9 Sodium 133 L (136-145) mmol/L Potassium 4.9 (3.5-5.1) mmol/L Chloride 95 L (98-107) mmol/L Carbon Dioxide 29 (21-32) mmol/L Anion Gap 9 (3-11) BUN 46 H (6-23) mg/dl Creatinine 1.49 H (0.6-1.4) mg/dl Est Cr Clr Drug Dosing Not Reportable Est GFR ( Amer) 51.0 ml/min Est GFR (Non-Af Amer) 44.0 ml/min BUN/Creatinine Ratio 30.9 H (10-20) Glucose 125 H (70-99(Fasting)) mg/dl Lactate 1.7 (0.4-2.0) mmol/L Calcium 9.3 (8.6-10.3) mg/dl Magnesium 1.9 (1.7-2.4) mg/dl Total Bilirubin 0.6 (0.2-1.0) mg/dl AST 24 (13-39) U/L ALT 37 (7-52) U/L Alkaline Phosphatase 81 (34-104) U/L Troponin I High Sens 24.5 H (0-20) pg/ml Total Protein 8.1 (6.0-8.3) gm/dl Albumin 4.2 (3.4-5.0) gm/dl Globulin 3.9 (2.5-4.0) gm/dl Albumin/Globulin Ratio 1.1 (0.9-2) Lipase 40 (11-82) U/L Procalcitonin 0.31 (0-0.5) ng/ml Adenovirus (PCR) Not Detected (NotDetected) B. pertussis DNA (PCR) Not Detected (NotDetected) B.parapertussis DNA PCR Not Detected (NotDetected) C. pneumoniae DNA (PCR) Not Detected (NotDetected) Coronavirus OC43 (PCR) Not Detected (NotDetected) Coronavirus HKU1 (PCR) Not Detected (NotDetected) Coronavirus 229E (PCR) Not Detected (NotDetected) SARS-CoV-2 (PCR) Not Detected (NotDetected) Coronavirus NL63 (PCR) Not Detected (NotDetected) Human Metapneumovir PCR Not Detected (NotDetected) Influenza Type A (PCR) Not Detected (NotDetected) Influenza Type B (PCR) Not Detected (NotDetected) M. pneumoniae (PCR) Not Detected (NotDetected) Parainfluenza 1 (PCR) Not Detected (NotDetected) Parainfluenza 2 (PCR) Not Detected (NotDetected) Parainfluenza 3 (PCR) Not Detected (NotDetected) Parainfluenza 4 (PCR) Not Detected (NotDetected) RSV (PCR) Not Detected (NotDetected) Entero/Rhino (PCR) Not Detected (NotDetected) Administered Medications Sodium Chloride (Nss) 2,000 mls @ 999 mls/hr IV .Q2H1M ONE Stop: 06/29/23 20:57 Last Admin: 06/29/23 19:41 Dose: 999 mls/hr Documented By: BRADFORD Discontinued Medications Acetaminophen (Acetaminophen 500 Mg Tab) 1,000 mg PO NOW STA Stop: 06/29/23 16:48 Last Admin: 06/29/23 18:17 Dose: 1,000 mg Documented By: BRADFORD Fentanyl Citrate (Fentanyl Citrate Pf 100 Mcg/2 Ml Vial) 50 mcg IV NOW STA Stop: 06/29/23 18:58 Last Admin: 06/29/23 19:41 Dose: 50 mcg Documented By: BRADFORD Sodium Chloride (Nss) 500 mls @ 999 mls/hr IV .Q31M STA Stop: 06/29/23 17:17 Last Infusion: 06/29/23 19:32 Dose: Infused Documented By: Admin: 06/29/23 18:17 Dose: 999 mls/hr Documented By: BRADFORD Cefepime HCl (Maxipime) 2,000 mg in 20 mls @ 5 mls/min IV NOW STA; Protocol Stop: 06/29/23 18:01 Last Admin: 06/29/23 18:37 Dose: 5 mls/min Documented By: BRADFORD Ioversol (Optiray 320 500ml) 89 ml IV ONCE ONE Stop: 06/29/23 17:49 Last Admin: 06/29/23 17:49 Dose: 89 ml Documented By: DENISE Imaging Data Radiologist's Impression: Abdomen/Pelvis CT 06/29/23 16:47 CT abd pelvis IV con only CLINICAL HISTORY: Abdominal pain, fever TECHNIQUE: Helical axial images of the abdomen and pelvis were obtained and displayed. Automated dose lowering techniques and/or adjustment according to patient size were utilized for this exam. This exam was performed with intravenous contrast. CT DOSE: 1549.17 mGy.cm COMPARISON: Comparison is made to CT abdomen pelvis 01/26/2023 FINDINGS: Lower chest: Atelectasis is in the lower lungs. Liver: Unremarkable. No focal lesions are seen. Gallbladder and biliary tree: No calcified gallstones. Normal caliber wall. No intra- or extrahepatic biliary ductal dilation. Pancreas: A cystic lesion in the pancreas measures 21 mm in diameter. Spleen: Calcifications are noted in the spleen compatible with prior granulomatous disease. Adrenals: Unremarkable. Kidneys and ureters: Renal cysts are seen. Bladder: Unremarkable. Reproductive organs: Clips in the inguinal canals compatible with vasectomy. Bowel: Diverticulosis is seen without evidence of diverticulitis. Patient is status post appendectomy and colonic resection. There is a small hiatal hernia. Lymph nodes Retroperitoneal: Unremarkable. Pelvic: Unremarkable. Mesenteric: Unremarkable. Peritoneum: Normal. Vessels: Atherosclerotic calcifications are seen. Abdominal wall: Ventral hernia repair is seen. Additional left lateral and ventral fat-containing hernias are noted. There is a tiny fluid collection measuring 6 x 26 mm in length. Bones: Degenerative changes in the visualized spine. IMPRESSION: Postsurgical changes of ventral hernia repair. Previously noted gas and fluid collection is significantly decreased in size. No remaining subcutaneous gas is seen. No other abnormalities are seen to explain fever and abdominal pain. ACT 112: Negative or not required by law. Electronically signed by: Ramón You M.D. 06/29/2023 6:18 PM Chest X-Ray 06/29/23 16:47 XR chest 1V portable CLINICAL HISTORY: Chest pain, nonspecific TECHNIQUE: Single frontal radiograph of the chest was obtained. Comparison: Comparison is made to chest radiograph 05/04/2023 FINDINGS: No lines and tubes are seen. Cardiomegaly is noted. The lungs are clear. No evidence of pleural effusion or pneumothorax. IMPRESSION: No acute chest disease. Cardiomegaly is noted. ACT 112: Negative or not required by law. Electronically signed by: Ramón You M.D. 06/29/2023 5:28 PM Knee X-Ray 06/29/23 16:47 XR knee RT 1 or 2V routine CLINICAL HISTORY: Knee pain, swelling, fever TECHNIQUE: 2 views of the right knee were obtained. Comparison: Comparison is made to knee radiograph 11/28/2022 FINDINGS: There is no evidence of an acute fracture. Patient is status post total knee arthroplasty. No perihardware lucency or hardware fracture is seen. No joint effusion is seen. Soft tissue swelling is seen about the knee. IMPRESSION: Soft tissue swelling is seen about the knee. No bony abnormality is seen. Knee arthroplasty is unremarkable. ACT 112: Negative or not required by law. Electronically signed by: Ramón You M.D. 06/29/2023 5:49 PM Discharge Plan Visit Data Chief Complaint: Fever Stated Complaint: FEVER,INFECTION ED Provider: Mariaa Black Discharge Problem: Sepsis, Leukocytosis, Non-ST elevation [place] (NSTEMI), Cellulitis of knee, right Forms Stand Alone Forms: [facility] Original Prescriptions Prescriptions: No Action acetaminophen 500 mg capsule 1,000 mg PO TID Rx Instructions: takes with gabapentin nitroglycerin 0.4 mg tablet, sublingual 0.4 mg sublingual Q5M PRN (Reason: chest pain) Qty: 30 0RF Rx Instructions: do not exceed 3 doses per episode cholecalciferol (vitamin D3) 250 mcg (10,000 unit) tablet 250 mcg PO DAILY 90 Days Qty: 90 3RF omega 8-xci-vbs-fish oil [Fish Oil] 1,000 mg (120 mg-180 mg) capsule 1 cap PO QAM Qty: 90 3RF gabapentin 400 mg capsule 400 mg PO TID 30 Days Qty: 90 5RF latanoprost 0.005 % drops 1 drp ophthalmic (eye) QPM senna 8.6 mg capsule 8.6 mg PO AMHS diclofenac sodium [Voltaren Arthritis Pain] 1 % gel 2 g topical QID Qty: 200 2RF Rinvoq 15 mg tablet extended release 24 hr 15 mg PO DAILY ipratropium bromide 21 mcg (0.03 %) spray,non-aerosol 2 spray intranasal BID Qty: 30 2RF Rx Instructions: administer into each nostril furosemide 20 mg tablet 20 mg PO DAILY PRN (Reason: edema or weight gain) Qty: 30 5RF aspirin [Adult Low Dose Aspirin] 81 mg tablet,delayed release (DR/EC) 81 mg PO QAM Hold Instructions: Resume on 02/23/23. until PCP/surgery followup isosorbide mononitrate 60 mg tablet extended release 24 hr 60 mg PO QAM sboxvwoi-lupsrmt-bitz-lutein Tablet 1 tab PO QAM coenzyme Q10 100 mg capsule 100 mg PO QAM Adult 50 Plus Probiotic 4 billion cell capsule 6,000 mmu cells PO QAM PRN (Reason: use with antibiotics) Rx Instructions: administer with a meal ascorbic acid (vitamin C) 500 mg capsule 1,000 mg PO QAM melatonin 5 mg capsule 5 mg PO HS PRN (Reason: Sleep) cyanocobalamin (vitamin B-12) 500 mcg Tablet 1,000 mcg PO QAM Qty: 30 0RF hydroxyzine HCl 10 mg Tablet 10 mg PO HS PRN (Reason: anxiety or insomnia) Qty: 14 0RF folic acid 1 mg Tablet 1 mg PO QAM Qty: 30 0RF potassium chloride 10 mEq tablet,ER particles/crystals 20 meq PO DAILY PRN (Reason: when taking lasix) Eliquis 2.5 mg tablet 2.5 mg PO BID Rx Instructions: TAKE 1 TABLET BY MOUTH TWICE DAILY thiamine HCl (vitamin B1) 100 mg tablet 100 mg PO QAM esomeprazole magnesium [Nexium] 40 mg capsule,delayed release(DR/EC) 40 mg PO HS duloxetine 60 mg capsule,delayed release(DR/EC) 60 mg PO QAM pravastatin 40 mg tablet 40 mg PO DAILY Rx Instructions: TAKE 1 TABLET BY MOUTH ONCE DAILY amiodarone 200 mg tablet 200 mg PO DAILY Rx Instructions: TAKE 1 TABLET BY MOUTH ONCE DAILY mirtazapine 15 mg tablet 15 mg PO HS Rx Instructions: TAKE 1 TABLET BY MOUTH AT BEDTIME olmesartan 5 mg tablet 5 mg PO DAILY Rx Instructions: TAKE 1 TABLET BY MOUTH DAILY metoprolol tartrate 25 mg tablet 12.5 mg PO BID Rx Instructions: TAKE 1/2 TABLET BY MOUTH TWICE DAILY FOR YOUR HEART AND HIGH BLOOD PRESSURE ranolazine 500 mg tablet extended release 12 hr 500 mg PO BID Rx Instructions: TAKE 1 TABLET BY MOUTH TWICE DAILY Referrals Referrals: Danny Soliman DO [Primary Care Provider] -
[2023-06-29] MEDS ORDERED: VANCOMYCIN HCL 2,250 MG in SODIUM CHLORIDE 0.9% 500 ML IV STA (19:35)
--- NOTE | 2023-06-29 20:26 | History & Physical Report ---
Date of Service June 29, 2023 Assessment & Plan (1) Right knee pain: Plan: 77 yo male with PMHx of incisional hernia s/p repair, HFrEF, atrial fibrillation, anxiety, depression, GERD, HTN, RA, CAD, and HLD. This morning he woke up with significant right knee pain and had difficulty getting into his wheelchair. #Septic Joint -presented with 1 day significant R knee pain. SIRS on admission (2/4 with leukocytosis and fever). Lactate wnl. No superficial erythema/rash. Concern for septic joint. He is ~8 months out from R knee replacement. Cannot exclude gout. Lyme pending. -R knee XR: soft tissue swelling -received 2L NSS in ED. Encourage oral intake. -blood cx pending -cont. cefepime and vancomycin -ortho consulted - will likely require arthrocentesis to confirm infection. Should also consider crystal analysis of fluid to r/o gout. Uric acid level pending. #H/o hernias with repair -2 weeks of constant abd pain/fullness - do not suspect these symptoms related to above -CT A/P: Ventral hernia repair is seen. Additional left lateral and ventral fat- containing hernias are noted. There is a tiny fluid collection measuring 6 x 26 mm in length. -scheduled to see outpatient general surgery later this week for evaluation; consider inpatient evaluation d/t likely prolonged hospital stay #Atrial Fibrillation -cont. amiodarone, metoprolol, eliquis #CAD, Angina, HFrEF, HTN -cont. asa, statin, olmesartan, metoprolol, ranolazine #Rheumatoid Arthritis -hold Rinvoq in setting of infection #Anxiety, Depression, Insomnia -cont. duloxetine, mirtazapine #Neuropathy -cont. duloxetine, gabapentin #GERD -cont. PPI #Glaucoma -cont. latanoprost #HLD -cont. statin #Constipation -cont. sennoside DVT ppx: eliquis FEN/GI: HH Code Status: full Dispo: med tele History of Present Illness Chief Complaint: R knee pain Primary Care Provider: Danny Soliman DO 77 yo male with PMHx of incisional hernia s/p repair, HFrEF, atrial fibrillation, anxiety, depression, GERD, HTN, RA, CAD, and HLD. This morning he woke up with significant right knee pain and had difficulty getting into his wheelchair. Denies recent injury. Denies headache, chest pain, shortness of breath, nausea, vomiting, diarrhea, dysuria. His right knee does have a history of septic joint couple years ago followed by a right knee arthroplasty last year. He was also admitted to [facility] this past Fall for a superficial cellulitis over the same knee. He does note some lower abdominal pain over the last couple of weeks which has been constant. Does have a history of 4 hernia repairs in the past. No known h/o gout. Allergies Allergy/AdvReac Type Severity Reaction Status Date / Time cat dander Allergy Severe Swelling Verified 06/29/23 18:39 of Lip/Tongue/Throat Home Medications Medication Instructions Recorded Confirmed Type sennosides 8.6 mg capsule (senna) 8.6 mg PO AMHS 06/19/22 06/29/23 History nitroglycerin 0.4 mg sublingual 0.4 mg sublingual Q5M PRN chest 07/23/22 06/29/23 Rx tablet pain #30 tabs ascorbic acid (vitamin C) 500 mg 1,000 mg PO QAM 08/07/22 06/29/23 History capsule aspirin 81 mg tablet,delayed 81 mg PO QAM 08/07/22 06/29/23 History release (Adult Low Dose Aspirin) coenzyme Q10 100 mg capsule 100 mg PO QAM 08/07/22 06/29/23 History isosorbide mononitrate 60 mg 60 mg PO QAM 08/07/22 06/29/23 History tablet,extended release 24 hr lactobacillus combination no.9 4 6,000 mmu cells PO QAM PRN use 08/07/22 06/29/23 History billion cell capsule (Adult 50 with antibiotics Plus Probiotic) [id number]-uamjmax-dqtx-lutein tablet 1 tab PO QAM 08/07/22 06/29/23 History cholecalciferol (vitamin D3) 250 250 mcg PO DAILY 90 days #90 tabs 09/19/22 06/29/23 Rx mcg (10,000 unit) tablet acetaminophen 500 mg capsule 1,000 mg PO TID 11/11/22 06/29/23 History furosemide 20 mg tablet 20 mg PO DAILY PRN edema or weight 12/25/22 06/29/23 Rx gain #30 tabs cyanocobalamin (vitamin B-12) 500 1,000 mcg (2 x 500 mcg) PO QAM #30 01/18/23 06/29/23 Rx mcg tablet tabs folic acid 1 mg tablet 1 mg PO QAM #30 tabs 01/18/23 06/29/23 Rx hydroxyzine HCl 10 mg tablet 10 mg PO HS PRN anxiety or 01/18/23 06/29/23 Rx insomnia #14 tabs apixaban 2.5 mg tablet (Eliquis) 2.5 mg PO BID 02/05/23 06/29/23 History duloxetine 60 mg capsule,delayed 60 mg PO QAM 02/05/23 06/29/23 History release esomeprazole magnesium 40 mg 40 mg PO HS 02/05/23 06/29/23 History capsule,delayed release (Nexium) potassium chloride 10 mEq 20 meq PO DAILY PRN when taking 02/05/23 06/29/23 History tablet,extended release(part/cryst) lasix thiamine HCl (vitamin B1) 100 mg 100 mg PO QAM 02/05/23 06/29/23 History tablet melatonin 5 mg capsule 5 mg PO HS PRN Sleep 02/16/23 06/29/23 History latanoprost 0.005 % eye drops 1 drp ophthalmic (eye) QPM 03/31/23 06/29/23 History diclofenac sodium 1 % topical gel 2 g topical QID #200 grams 04/24/23 06/29/23 Rx (Voltaren Arthritis Pain) omega 4-rts-sgv-fish oil 1,000 mg 1 cap PO QAM #90 caps 04/27/23 06/29/23 Rx (120 mg-180 mg) capsule (Fish Oil) upadacitinib 15 mg tablet,extended 15 mg PO DAILY 05/04/23 06/29/23 History release 24 hr (Rinvoq) ipratropium bromide 21 mcg (0.03 2 spray intranasal BID #30 mL 05/21/23 06/29/23 Rx %) nasal spray gabapentin 400 mg capsule 400 mg PO TID 30 days #90 caps 06/26/23 06/29/23 Rx amiodarone 200 mg tablet 200 mg PO DAILY 06/29/23 06/29/23 History metoprolol tartrate 25 mg tablet 12.5 mg PO BID 06/29/23 06/29/23 History mirtazapine 15 mg tablet 15 mg PO HS 06/29/23 06/29/23 History olmesartan 5 mg tablet 5 mg PO DAILY 06/29/23 06/29/23 History pravastatin 40 mg tablet 40 mg PO DAILY 06/29/23 06/29/23 History ranolazine 500 mg tablet,extended 500 mg PO BID 06/29/23 06/29/23 History release,12 hr Past Med/Surg History Medical History Abdominal wall abscess Incisional hernia Lumbar radiculopathy Sepsis Septicemia due to Streptococcus pneumoniae Heart failure with preserved ejection fraction Respiratory failure with hypoxia Hypomagnesemia Pneumonia Atherogenic dyslipidemia Benign essential hypertension Coronary artery disease Lumbar stenosis Rheumatoid arthritis Hx of staphylococcal infection Atrial fibrillation Myocardial Infarction Sleep apnea GERD (gastroesophageal reflux disease) Anxiety and depression HFrEF (heart failure with reduced ejection fraction) Surgical History Hx of Achilles tendon repair Hx of knee surgery Hx of rotator cuff surgery Hx of total knee replacement Hx of total hip arthroplasty History of colostomy reversal History of bowel resection Hx of hernia repair History of esophagogastroduodenoscopy (EGD) Hx of colonoscopy Hx of bilateral cataract extraction History of heart artery stent History of cardiac cath Family History Grandmother (Maternal) Diabetes Daughter Diabetes Father Suicide Hypertension Denies family history of Ovarian cancer Prostate cancer Myocardial infarction Breast cancer Lung cancer Colorectal cancer Stroke Social History Smoking Status: Never smoker Second Hand Exposure: No; Do You Dip or Chew Tobacco: No; Hx Alcohol Use: Yes Alcohol type: wine Alcohol Intake Frequency: 4 or More x per/Week Hx Substance Use: No Preferred Language: Grenadian Communication Ability: Effective Visual Impairment: No Limitations 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 Beliefs That Will Affect Care: None marital status: Single Current Living Situation: Personal Care Facility Current Living Situation Comment: Independent living current occupational status: retired How many Children do You have: 2 Other Information That Helps Us Care for You: No Feels Safe at Home: Yes Safety Concerns: Feels Safe At This Time Childhood Exposure to Second-Hand Smoke: Yes caffeine: Yes Dental Care, Regularly: Yes Physical Activity Frequency: Does not Exercise Seatbelt Use: always Sunscreen Use: Yes Assistive Devices: Walker and Wheelchair Review of Systems Review of Systems: All systems reviewed & are unremarkable except as noted in HPI & below Physical Exam Physical Exam: Constitutional: in no acute distress, pleasant and normal affect, intact memory. AOx3. Vitals as above. HEENT: No scleral injection or discharge.Dry mucous membranes. Neck: Supple without lymphadenopathy or thyromegaly. Trachea midline. Lungs: Clear to auscultation bilaterally with good effort. No wheezes/rales/rhonchi. Cardiac: Regular rate and rhythm.No murmurs.No lower extremity edema. 2+ distal peripheral pulses. Abdomen: Soft. Distended. Moderate lower quadrant tenderness upon palpation.No guarding. No hepatosplenomegaly. MSK: R knee: exquisitely tender to palpation anteriorly, limited ROM secondary to pain, diffuse anterior/posterior pain with attempted passive knee flexion, no obvious superficial erythema Skin: warm, dry. Neurologic: no focal deficits Results & Data Results & Data Vital Signs (Past 12 Hours) Vital Signs Temp Pulse Resp BP Pulse Ox O2 Del Method 06/29/23 19:00 72 22 126/66 94 Room Air 06/29/23 18:37 74 19 131/62 95 Room Air 06/29/23 18:14 73 06/29/23 16:44 38.1 C H 74 18 132/62 94 Room Air Laboratory Results Laboratory Results WBC 21.91 K/ul (4.8-10.8) H 06/29/23 16:59 RBC 4.46 M/uL (4.70-6.10) L 06/29/23 16:59 Hgb 12.1 g/dl (14.0-18.0) L 06/29/23 16:59 Hct 38.5 % (42.0-52.0) L 06/29/23 16:59 MCV 86.3 fL (80.0-100.0) 06/29/23 16:59 MCH 27.1 pg (25.0-34.0) 06/29/23 16:59 MCHC 31.4 g/dL (32.0-36.0) L 06/29/23 16:59 RDW Std Deviation 55.7 fL (36.4-46.3) H 06/29/23 16:59 RDW Coeff of Sammie 17.7 % (11.5-14.5) H 06/29/23 16:59 Plt Count 413 K/uL (130-400) H 06/29/23 16:59 MPV 9.0 fL (9.4-12.4) L 06/29/23 16:59 Immature Gran % (Auto) 0.7 % 06/29/23 16:59 Neut % (Auto) 90.3 % 06/29/23 16:59 Lymph % (Auto) 2.8 % 06/29/23 16:59 [place] % (Auto) 5.9 % 06/29/23 16:59 Eos % (Auto) 0.1 % 06/29/23 16:59 Baso % (Auto) 0.2 % 06/29/23 16:59 Neut # (Auto) 19.79 K/uL (1.40-6.50) H 06/29/23 16:59 Lymph # (Auto) 0.61 K/uL (1.20-3.40) L 06/29/23 16:59 [place] # (Auto) 1.29 K/uL (0.11-0.59) H 06/29/23 16:59 Eos # (Auto) 0.02 K/uL (0.00-0.50) 06/29/23 16:59 Baso # (Auto) 0.05 K/uL (0.00-0.20) 06/29/23 16:59 Immature Gran # (Auto) 0.15 K/uL (0.01-0.20) 06/29/23 16:59 PT 11.6 Seconds (9.0-12.0) 06/29/23 16:59 INR 1.1 (0.9-1.1) 06/29/23 16:59 APTT 25 Seconds (21-31) 06/29/23 16:59 PTT Ratio 0.9 06/29/23 16:59 Sodium 133 mmol/L (136-145) L 06/29/23 16:59 Potassium 4.9 mmol/L (3.5-5.1) 06/29/23 16:59 Chloride 95 mmol/L (98-107) L 06/29/23 16:59 Carbon Dioxide 29 mmol/L (21-32) 06/29/23 16:59 Anion Gap 9 (3-11) 06/29/23 16:59 BUN 46 mg/dl (6-23) H 06/29/23 16:59 Creatinine 1.49 mg/dl (0.6-1.4) H 06/29/23 16:59 Est Cr Clr Drug Dosing Not Reportable 06/29/23 16:59 Est GFR ( Amer) 51.0 ml/min 06/29/23 16:59 Est GFR (Non-Af Amer) 44.0 ml/min 06/29/23 16:59 BUN/Creatinine Ratio 30.9 (10-20) H 06/29/23 16:59 Glucose 125 mg/dl (70-99(Fasting)) H 06/29/23 16:59 Lactate 1.7 mmol/L (0.4-2.0) 06/29/23 16:59 Calcium 9.3 mg/dl (8.6-10.3) 06/29/23 16:59 Magnesium 1.9 mg/dl (1.7-2.4) 06/29/23 16:59 Total Bilirubin 0.6 mg/dl (0.2-1.0) 06/29/23 16:59 AST 24 U/L (13-39) 06/29/23 16:59 ALT 37 U/L (7-52) 06/29/23 16:59 Alkaline Phosphatase 81 U/L (34-104) 06/29/23 16:59 Troponin I High Sens 22.3 pg/ml (0-20) H 06/29/23 19:51 Total Protein 8.1 gm/dl (6.0-8.3) 06/29/23 16:59 Albumin 4.2 gm/dl (3.4-5.0) 06/29/23 16:59 Globulin 3.9 gm/dl (2.5-4.0) 06/29/23 16:59 Albumin/Globulin Ratio 1.1 (0.9-2) 06/29/23 16:59 Lipase 40 U/L (11-82) 06/29/23 16:59 Procalcitonin 0.31 ng/ml (0-0.5) 06/29/23 16:59 Adenovirus (PCR) Not Detected (NotDetected) 06/29/23 Unknown B. pertussis DNA (PCR) Not Detected (NotDetected) 06/29/23 Unknown B.parapertussis DNA PCR Not Detected (NotDetected) 06/29/23 Unknown C. pneumoniae DNA (PCR) Not Detected (NotDetected) 06/29/23 Unknown Coronavirus OC43 (PCR) Not Detected (NotDetected) 06/29/23 Unknown Coronavirus HKU1 (PCR) Not Detected (NotDetected) 06/29/23 Unknown Coronavirus 229E (PCR) Not Detected (NotDetected) 06/29/23 Unknown SARS-CoV-2 (PCR) Not Detected (NotDetected) 06/29/23 Unknown Coronavirus NL63 (PCR) Not Detected (NotDetected) 06/29/23 Unknown Human Metapneumovir PCR Not Detected (NotDetected) 06/29/23 Unknown Influenza Type A (PCR) Not Detected (NotDetected) 06/29/23 Unknown Influenza Type B (PCR) Not Detected (NotDetected) 06/29/23 Unknown M. pneumoniae (PCR) Not Detected (NotDetected) 06/29/23 Unknown Parainfluenza 1 (PCR) Not Detected (NotDetected) 06/29/23 Unknown Parainfluenza 2 (PCR) Not Detected (NotDetected) 06/29/23 Unknown Parainfluenza 3 (PCR) Not Detected (NotDetected) 06/29/23 Unknown Parainfluenza 4 (PCR) Not Detected (NotDetected) 06/29/23 Unknown RSV (PCR) Not Detected (NotDetected) 06/29/23 Unknown Entero/Rhino (PCR) Not Detected (NotDetected) 06/29/23 Unknown Impressions Abdomen/Pelvis CT 06/29/23 16:47 CT abd pelvis IV con only CLINICAL HISTORY: Abdominal pain, fever TECHNIQUE: Helical axial images of the abdomen and pelvis were obtained and displayed. Automated dose lowering techniques and/or adjustment according to patient size were utilized for this exam. This exam was performed with intravenous contrast. CT DOSE: 1549.17 mGy.cm COMPARISON: Comparison is made to CT abdomen pelvis 01/26/2023 FINDINGS: Lower chest: Atelectasis is in the lower lungs. Liver: Unremarkable. No focal lesions are seen. Gallbladder and biliary tree: No calcified gallstones. Normal caliber wall. No intra- or extrahepatic biliary ductal dilation. Pancreas: A cystic lesion in the pancreas measures 21 mm in diameter. Spleen: Calcifications are noted in the spleen compatible with prior granulomatous disease. Adrenals: Unremarkable. Kidneys and ureters: Renal cysts are seen. Bladder: Unremarkable. Reproductive organs: Clips in the inguinal canals compatible with vasectomy. Bowel: Diverticulosis is seen without evidence of diverticulitis. Patient is status post appendectomy and colonic resection. There is a small hiatal hernia. Lymph nodes Retroperitoneal: Unremarkable. Pelvic: Unremarkable. Mesenteric: Unremarkable. Peritoneum: Normal. Vessels: Atherosclerotic calcifications are seen. Abdominal wall: Ventral hernia repair is seen. Additional left lateral and ventral fat-containing hernias are noted. There is a tiny fluid collection measuring 6 x 26 mm in length. Bones: Degenerative changes in the visualized spine. IMPRESSION: Postsurgical changes of ventral hernia repair. Previously noted gas and fluid collection is significantly decreased in size. No remaining subcutaneous gas is seen. No other abnormalities are seen to explain fever and abdominal pain. ACT 112: Negative or not required by law. Electronically signed by: Ramón You M.D. 06/29/2023 6:18 PM Chest X-Ray 06/29/23 16:47 XR chest 1V portable CLINICAL HISTORY: Chest pain, nonspecific TECHNIQUE: Single frontal radiograph of the chest was obtained. Comparison: Comparison is made to chest radiograph 05/04/2023 FINDINGS: No lines and tubes are seen. Cardiomegaly is noted. The lungs are clear. No evidence of pleural effusion or pneumothorax. IMPRESSION: No acute chest disease. Cardiomegaly is noted. ACT 112: Negative or not required by law. Electronically signed by: Ramón You M.D. 06/29/2023 5:28 PM Knee X-Ray 06/29/23 16:47 XR knee RT 1 or 2V routine CLINICAL HISTORY: Knee pain, swelling, fever TECHNIQUE: 2 views of the right knee were obtained. Comparison: Comparison is made to knee radiograph 11/28/2022 FINDINGS: There is no evidence of an acute fracture. Patient is status post total knee arthroplasty. No perihardware lucency or hardware fracture is seen. No joint effusion is seen. Soft tissue swelling is seen about the knee. IMPRESSION: Soft tissue swelling is seen about the knee. No bony abnormality is seen. Knee arthroplasty is unremarkable. ACT 112: Negative or not required by law. Electronically signed by: Ramón You M.D. 06/29/2023 5:49 PM Supervising Physician Co-Signing Physician Notes Attending addendum: I have physically seen this patient, have supervised the medical residents activities, and agree with the H&P unless as otherwise noted. Assessment and Plan: Right knee septic joint- Status post right TKA about a month ago Check uric acid and Lyme studies Continue vancomycin and cefepime IV empirically begun in the ED Consult orthopedic surgery Will likely need PICC line for long-term antibiotics Contributing factors including history of ventral hernia repair and MSSA infection as a potential source of seeding Dilaudid 0.5 mg IV every 3 hours as needed for moderate pain Dilaudid 1 mg IV every 3 hours as needed for severe pain Atrial fibrillation/CAD/HFrEF/hypertension- Hold ranolazine, Eliquis and aspirin for potential arthrocentesis above Continue amiodarone, metoprolol, isosorbide mononitrate, and telmisartan RA- Hold Rinvoq due to present infection Ventral abdominal hernia status post repair- Additional left lateral and ventral fat-containing hernias Consider consult to general surgery while in the hospital Resident Activity Tracking Resident Involvement: Resident Care Provided Care Provided: Adult Hospital Medicine
[2023-06-29] MEDS ORDERED: POLYETHYLENE (MIRALAX) 17 GM PACK PO PRN (20:52)
[2023-06-29] MEDS ORDERED: HYDROmorphone INJ 0.5 MG/0.5 ML SYR IV PRN (20:52)
[2023-06-29] MEDS ORDERED: ONDANSETRON 4 MG OD TAB PO PRN (20:52)
[2023-06-29] MEDS ORDERED: HYDROmorphone INJ 1 MG/ML SYRINGE IV PRN (20:52)
[2023-06-29] MEDS ORDERED: RANOLAZINE 500 MG ER TAB PO SCH (21:00)
[2023-06-29] MEDS ORDERED: APIXABAN 2.5 MG TAB PO SCH (21:00)
[2023-06-29 21:47] LABS: Lyme Ab IgG w/WB Rflx Negative (Negative); Lyme Ab IgM w/WB Rflx Negative (Negative)
[2023-06-29 22:16] LABS: Uric Acid 6.2 mg/dl (2.6-7.2)
[2023-06-29] MEDS: MIRTAZAPINE TAB 15 MG TAB PO SCH (22:57)
[2023-06-29] MEDS: GABAPENTIN 400 MG CAP PO SCH (22:58)
[2023-06-29] MEDS: SENNA 8.6 MG TAB PO SCH (22:59)
[2023-06-29] MEDS: METOPROLOL TARTRATE 25 MG TAB PO SCH (22:59)
[2023-06-29] MEDS: LATANOPROST 0.005% OP SOLN 2.5 ML BTL OP SCH (23:00)
[2023-06-29 23:44] LABS: Appearance Urine Clear (Clear); Bilirubin Urine Negative (Negative); Blood Urine Negative (Negative); Color Urine Dark Yellow; Glucose Urine UA Negative (Negative); Ketones Urine Negative (Negative); Leukocyte Esterase Urine Negative (Negative); Nitrite Urine Negative (Negative); Protein Urine Negative (Negative); Specific Gravity Urine > 1.045 (1.000-1.030); Urobilinogen Urine Negative (Negative); pH Urine 5.5 (4.5-7.5)
[2023-06-30] MEDS ORDERED: HYDROmorphone INJ 0.5 MG/0.5 ML SYR IV PRN (02:33)
[2023-06-30] MEDS: HYDROmorphone INJ 1 MG/ML SYRINGE IV PRN ×6 (02:52→22:26)
[2023-06-30 03:55] LABS: Hematocrit (blood only) 32.6 % (42.0-52.0); Hemoglobin 10.3 g/dl (14.0-18.0); Mean Corpuscular Hemoglobin 27.3 pg (25.0-34.0); Mean Corpuscular Hgb Conc 31.6 g/dL (32.0-36.0); Mean Corpuscular Volume 86.5 fL (80.0-100.0); Mean Platelet Volume 9.1 fL (9.4-12.4); Platelet Count 339 K/uL (130-400); RDW Coefficient of Variation 17.6 % (11.5-14.5); Red Blood Count 3.77 M/uL (4.70-6.10); White Blood Count 28.78 K/ul (4.8-10.8)
[2023-06-30 04:14] LABS: BUN Creatinine Ratio 28.8 (10-20); Calcium 8.2 mg/dl (8.6-10.3); Creatinine Clr Calc Pharmacy 51.6 ml/min; Est GFR (African American) 49.4 ml/min; Est GFR (Non-African American) 42.6 ml/min; Magnesium 1.8 mg/dl (1.7-2.4); Potassium 4.8 mmol/L (3.5-5.1)
[2023-06-30 04:38] LABS: Basophils # (auto) 0.07 K/uL (0.00-0.20); Basophils % (auto) 0.2 %; Eosinophils # (auto) 0.02 K/uL (0.00-0.50); Eosinophils % (auto) 0.1 %; Immature Granulocytes # (auto) 0.37 K/uL (0.01-0.20); Immature Granulocytes % (auto) 1.3 %; Lymphocytes # (auto) 0.69 K/uL (1.20-3.40); Lymphocytes % (auto) 2.4 %; Monocytes # (auto) 2.11 K/uL (0.11-0.59); Monocytes % (auto) 7.3 %; Neutrophils # (auto) 25.52 K/uL (1.40-6.50); Neutrophils % (auto) 88.7 %; Polychromasia 1+; Rouleaux 1+
--- NOTE | 2023-06-30 05:23 | Billing Data ---
Date of Service June 30, 2023 Coding Level of Care Code 17940 INT INP/OBS CARE
[2023-06-30] MEDS: CEFEPIME 2,000 MG in SYRINGE 0 ML IV SCH ×2 (05:55→18:25)
[2023-06-30] MEDS: METOPROLOL TARTRATE 25 MG TAB PO SCH ×2 (07:30→20:17)
[2023-06-30] MEDS: SENNA 8.6 MG TAB PO SCH ×2 (07:30→20:17)
[2023-06-30] MEDS: ACETAMINOPHEN 325 MG TAB PO PRN ×2 (07:40→19:26)
[2023-06-30] MEDS: GABAPENTIN 400 MG CAP PO SCH ×3 (07:40→20:18)
[2023-06-30] MEDS ORDERED: VANCOMYCIN HCL 1,000 MG in SODIUM CHLORIDE 0.9% 250 ML IV SCH (08:00)
[2023-06-30] MEDS ORDERED: AMIODARONE 200 MG TAB PO SCH (09:00)
[2023-06-30] MEDS ORDERED: DULoxetine HCL 60 MG CAP PO SCH (09:00)
[2023-06-30] MEDS ORDERED: ASPIRIN 81 MG ECTAB PO SCH (09:00)
[2023-06-30] MEDS ORDERED: ISOSORBIDE MONO EXTENDED REL 60 MG TABCR PO SCH (09:00)
[2023-06-30] MEDS ORDERED: LOSARTAN POTASSIUM 25 MG TAB PO SCH (09:00)
--- NOTE | 2023-06-30 09:28 | Orthopedic Consultation ---
Date of Consultation June 30, 2023 Assessment & Plan (1) Septic joint of right knee joint: Will discuss case with Dr. Kern's PA, Helena Aaron in [place] Admission Cancelled Spoke with Helena and Dr. Kern would like ED to ED transfer to [facility], however since the patient was admitted the transfer will have to be medicine to medicine. The transfer center is going to contact Dr. Yoder to process this. I spoke with Dr. Johnson ([facility] on-call) and the will accept/manage the patient once the transfer occurs. Surgical intervention will most likely occur tomorrow Will relay information to Staff at our office I saw the patient independently in the ED this AM for Septic Right knee Joint s/p Total knee arthroplasty. I spoke with necessary providers at [facility] and have the transfer process established. I also spoke with the patient's family (Son and Daughter) and discussed the patient's condition and why it is necessary for the patient to be transferred. They were in understanding and appreciated that I had contacted them. In total I spent approximately 1 hr and 30 mins caring for this patient and managing his care. History of Present Illness Reason for Consultation: Septic Right knee s/p total knee arthroplasty Requesting Physician: Hermes Tamayo Attending Physician: Bouchra Gasca MD History of Present Illness Patient is a 77-year-old male presenting with rigors, fever and right knee pain. Patient reports that he woke up yesterday and had chills and was shaking. He states that he had a fever up to 101. He reports that he woke up today and had significant pain in his right knee. He reports that he tries to ambulate with a walker at baseline but in the last 3 days has been unable to bear weight on his right leg secondary to pain. He states that he has bilateral knee arthroplasties. He states that he previously had a septic joint over a year ago which was worked prompted the joint replacement. He states his temperature was up to 101.3. He did not take anything for his temperature. He denies any chest pain but does report some significant shortness of breath that started today. He states has been coughing up green/yellow sputum. He denies any nausea, vomiting or diarrhea. Denies any dysuria or hematuria. He does report some lower abdominal pain. He denies any injuries to the right knee or recent falls. He reports that he has had discoloration of his knee since his knee replacement surgery, but he noticed that today it was slightly more red and very painful to the touch. Denies any recent travel or recent sick contact exposures. Currently he is afebrile. Allergies Allergy/AdvReac Type Severity Reaction Status Date / Time cat dander Allergy Severe Swelling Verified 06/29/23 18:39 of Lip/Tongue/Throat Home Medications Medication Instructions Recorded Confirmed Type sennosides 8.6 mg capsule (senna) 8.6 mg PO AMHS 06/19/22 06/29/23 History nitroglycerin 0.4 mg sublingual 0.4 mg sublingual Q5M PRN chest 07/23/22 06/29/23 Rx tablet pain #30 tabs ascorbic acid (vitamin C) 500 mg 1,000 mg PO QAM 08/07/22 06/29/23 History capsule aspirin 81 mg tablet,delayed 81 mg PO QAM 08/07/22 06/29/23 History release (Adult Low Dose Aspirin) coenzyme Q10 100 mg capsule 100 mg PO QAM 08/07/22 06/29/23 History isosorbide mononitrate 60 mg 60 mg PO QAM 08/07/22 06/29/23 History tablet,extended release 24 hr lactobacillus combination no.9 4 6,000 mmu cells PO QAM PRN use 08/07/22 06/29/23 History billion cell capsule (Adult 50 with antibiotics Plus Probiotic) mokvcjlt-irrpdlm-msti-lutein tablet 1 tab PO QAM 08/07/22 06/29/23 History cholecalciferol (vitamin D3) 250 250 mcg PO DAILY 90 days #90 tabs 09/19/22 06/29/23 Rx mcg (10,000 unit) tablet acetaminophen 500 mg capsule 1,000 mg PO TID 11/11/22 06/29/23 History furosemide 20 mg tablet 20 mg PO DAILY PRN edema or weight 12/25/22 06/29/23 Rx gain #30 tabs cyanocobalamin (vitamin B-12) 500 1,000 mcg (2 x 500 mcg) PO QAM #30 01/18/23 06/29/23 Rx mcg tablet tabs folic acid 1 mg tablet 1 mg PO QAM #30 tabs 01/18/23 06/29/23 Rx hydroxyzine HCl 10 mg tablet 10 mg PO HS PRN anxiety or 01/18/23 06/29/23 Rx insomnia #14 tabs apixaban 2.5 mg tablet (Eliquis) 2.5 mg PO BID 02/05/23 06/29/23 History duloxetine 60 mg capsule,delayed 60 mg PO QAM 02/05/23 06/29/23 History release esomeprazole magnesium 40 mg 40 mg PO HS 02/05/23 06/29/23 History capsule,delayed release (Nexium) potassium chloride 10 mEq 20 meq PO DAILY PRN when taking 02/05/23 06/29/23 History tablet,extended release(part/cryst) lasix thiamine HCl (vitamin B1) 100 mg 100 mg PO QAM 02/05/23 06/29/23 History tablet melatonin 5 mg capsule 5 mg PO HS PRN Sleep 02/16/23 06/29/23 History latanoprost 0.005 % eye drops 1 drp ophthalmic (eye) QPM 03/31/23 06/29/23 History diclofenac sodium 1 % topical gel 2 g topical QID #200 grams 04/24/23 06/29/23 Rx (Voltaren Arthritis Pain) omega 2-dms-kld-fish oil 1,000 mg 1 cap PO QAM #90 caps 04/27/23 06/29/23 Rx (120 mg-180 mg) capsule (Fish Oil) upadacitinib 15 mg tablet,extended 15 mg PO DAILY 05/04/23 06/29/23 History release 24 hr (Rinvoq) ipratropium bromide 21 mcg (0.03 2 spray intranasal BID #30 mL 05/21/23 06/29/23 Rx %) nasal spray gabapentin 400 mg capsule 400 mg PO TID 30 days #90 caps 06/26/23 06/29/23 Rx amiodarone 200 mg tablet 200 mg PO DAILY 06/29/23 06/29/23 History metoprolol tartrate 25 mg tablet 12.5 mg PO BID 06/29/23 06/29/23 History mirtazapine 15 mg tablet 15 mg PO HS 06/29/23 06/29/23 History olmesartan 5 mg tablet 5 mg PO DAILY 06/29/23 06/29/23 History pravastatin 40 mg tablet 40 mg PO DAILY 06/29/23 06/29/23 History ranolazine 500 mg tablet,extended 500 mg PO BID 06/29/23 06/29/23 History release,12 hr Patient History Medical History Abdominal wall abscess Incisional hernia Lumbar radiculopathy Sepsis 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 knee, occurrred during atrial fibrillation episode. "when he woke up, he couldn't walk." Atrial fibrillation episode occurred in 03/2022, taken to [facility] in [place], admitted to ICU for 1-2 weeks (was not intubated, but wasn't "awake either"), then to cardiac unit, then to rehab at [facility]; f/u dr. guerra in [place]>will be starting to see a toolroom checker at [facility] 2nd week of 08/2022 Myocardial Infarction "a silent one, 2019" Sleep apnea no device GERD (gastroesophageal reflux disease) Anxiety and depression HFrEF (heart failure with reduced ejection fraction) EF 40% Mar 2022, improved 55-60% August 2022 Surgical History Hx of Achilles tendon repair rt. Hx of knee surgery rt. patellar tendon repair Hx of rotator cuff surgery bilateral Hx of total knee replacement lt. Hx of total hip arthroplasty rt. History of colostomy reversal History of bowel resection for diverticulitis; w/colostomy placement for 3-4 months Hx of hernia repair near former colostomy site History of esophagogastroduodenoscopy (EGD) Hx of colonoscopy Last Colonoscopy 08/14/22, repeat 3 years in 2025 Hx of bilateral cataract extraction History of heart artery stent ~3 years ago, x2 stents, done in [place]; f/u dr guerra, [place]>will be seeing new cardio at [place] 2nd week of August 2022. History of cardiac cath ~3 years ago, SOB and "felt like throat was constricting", had "silent heart attack", x2 stents, done in [place] Family History Grandmother (Maternal) Diabetes Daughter Diabetes Father Suicide Hypertension Denies family history of Ovarian cancer Prostate cancer Myocardial infarction Breast cancer Lung cancer Colorectal cancer Stroke Social History Smoking Status: Never smoker Second Hand Exposure: No; Do You Dip or Chew Tobacco: No; Hx Alcohol Use: Yes Alcohol type: wine Alcohol Intake Frequency: 4 or More x per/Week Hx Substance Use: No Preferred Language: Bulgarian Communication Ability: Effective Visual Impairment: No Limitations Hearing Ability: Normal Film Cleaner Required: No Beliefs That Will Affect Care: None marital status: Single Current Living Situation: Personal Care Facility Current Living Situation Comment: Independent living current occupational status: retired How many Children do You have: 2 Feels Safe at Home: Yes Childhood Exposure to Second-Hand Smoke: Yes caffeine: Yes Dental Care, Regularly: Yes Physical Activity Frequency: Does not Exercise Seatbelt Use: always Sunscreen Use: Yes Assistive Devices: Walker and Wheelchair Review of Systems Review of Systems: All systems reviewed & are unremarkable except as noted in Subjective Physical Exam Physical Exam: Right knee: Edema, erythema, warmth, ecchymosis and 2+ effusion. Exquisitely TTP circumferentially. Extension to 25 degrees and flexion at 88. Resistance with attempted passive ROM. Scabbed over superficial abrasion over knee and proximal lower leg. Unable to perform SLRT. Able to dorsi/plantar flex foot. NV intact. Results & Data Vital Signs (Past 12 Hours) Vital Signs Temp Pulse Pulse Resp BP Pulse Ox Pulse Ox 06/30/23 07:35 76 18 109/59 L 94 06/30/23 07:15 75 06/30/23 03:00 36.9 C 68 18 119/72 93 06/30/23 03:00 93 06/30/23 01:07 67 20 109/63 94 06/29/23 23:27 68 06/29/23 22:35 37.4 C 68 20 106/61 94 06/29/23 22:06 69 O2 Del Method O2 Del Method 06/30/23 07:35 Room Air 06/30/23 07:15 06/30/23 03:00 Room Air 06/30/23 03:00 Room Air 06/30/23 01:07 Room Air 06/29/23 23:27 06/29/23 22:35 Room Air 06/29/23 22:06 Diagnostic Findings Laboratory Results WBC 28.78 K/ul (4.8-10.8) H 06/30/23 03:26 RBC 3.77 M/uL (4.70-6.10) L 06/30/23 03:26 Hgb 10.3 g/dl (14.0-18.0) L 06/30/23 03:26 Hct 32.6 % (42.0-52.0) L 06/30/23 03:26 MCV 86.5 fL (80.0-100.0) 06/30/23 03:26 MCH 27.3 pg (25.0-34.0) 06/30/23 03:26 MCHC 31.6 g/dL (32.0-36.0) L 06/30/23 03:26 RDW Std Deviation 56.0 fL (36.4-46.3) H 06/30/23 03:26 RDW Coeff of Sammie 17.6 % (11.5-14.5) H 06/30/23 03:26 Plt Count 339 K/uL (130-400) 06/30/23 03:26 MPV 9.1 fL (9.4-12.4) L 06/30/23 03:26 Immature Gran % (Auto) 1.3 % 06/30/23 03:26 Neut % (Auto) 88.7 % 06/30/23 03:26 Lymph % (Auto) 2.4 % 06/30/23 03:26 [place] % (Auto) 7.3 % 06/30/23 03:26 Eos % (Auto) 0.1 % 06/30/23 03:26 Baso % (Auto) 0.2 % 06/30/23 03:26 Neut # (Auto) 25.52 K/uL (1.40-6.50) H 06/30/23 03:26 Lymph # (Auto) 0.69 K/uL (1.20-3.40) L 06/30/23 03:26 [place] # (Auto) 2.11 K/uL (0.11-0.59) H 06/30/23 03:26 Eos # (Auto) 0.02 K/uL (0.00-0.50) 06/30/23 03:26 Baso # (Auto) 0.07 K/uL (0.00-0.20) 06/30/23 03:26 Immature Gran # (Auto) 0.37 K/uL (0.01-0.20) H 06/30/23 03:26 Polychromasia 1+ 06/30/23 03:26 Rouleaux 1+ 06/30/23 03:26 PT 11.6 Seconds (9.0-12.0) 06/29/23 16:59 INR 1.1 (0.9-1.1) 06/29/23 16:59 APTT 25 Seconds (21-31) 06/29/23 16:59 PTT Ratio 0.9 06/29/23 16:59 Sodium 132 mmol/L (136-145) L 06/30/23 03:26 Potassium 4.8 mmol/L (3.5-5.1) 06/30/23 03:26 Chloride 99 mmol/L (98-107) 06/30/23 03:26 Carbon Dioxide 26 mmol/L (21-32) 06/30/23 03:26 Anion Gap 7 (3-11) 06/30/23 03:26 BUN 44 mg/dl (6-23) H 06/30/23 03:26 Creatinine 1.53 mg/dl (0.6-1.4) H 06/30/23 03:26 Est Cr Clr Drug Dosing 51.6 ml/min 06/30/23 03:26 Est GFR ( Amer) 49.4 ml/min 06/30/23 03:26 Est GFR (Non-Af Amer) 42.6 ml/min 06/30/23 03:26 BUN/Creatinine Ratio 28.8 (10-20) H 06/30/23 03:26 Glucose 139 mg/dl (70-99(Fasting)) H 06/30/23 03:26 Lactate 1.7 mmol/L (0.4-2.0) 06/29/23 16:59 Uric Acid Cancelled 06/29/23 19:51 Calcium 8.2 mg/dl (8.6-10.3) L 06/30/23 03:26 Magnesium 1.8 mg/dl (1.7-2.4) 06/30/23 03:26 Total Bilirubin 0.6 mg/dl (0.2-1.0) 06/29/23 16:59 AST 24 U/L (13-39) 06/29/23 16:59 ALT 37 U/L (7-52) 06/29/23 16:59 Alkaline Phosphatase 81 U/L (34-104) 06/29/23 16:59 Troponin I High Sens 22.3 pg/ml (0-20) H 06/29/23 19:51 Total Protein 8.1 gm/dl (6.0-8.3) 06/29/23 16:59 Albumin 4.2 gm/dl (3.4-5.0) 06/29/23 16:59 Globulin 3.9 gm/dl (2.5-4.0) 06/29/23 16:59 Albumin/Globulin Ratio 1.1 (0.9-2) 06/29/23 16:59 Lipase 40 U/L (11-82) 06/29/23 16:59 Procalcitonin 0.31 ng/ml (0-0.5) 06/29/23 16:59 Urine Color Dark Yellow 06/29/23 23:25 Urine Appearance Clear (Clear) 06/29/23 23:25 Urine pH 5.5 (4.5-7.5) 06/29/23 23:25 Ur Specific [place] > 1.045 (1.000-1.030) H 06/29/23 23:25 Urine Protein Negative (Negative) 06/29/23 23:25 Urine Glucose (UA) Negative (Negative) 06/29/23 23:25 Urine Ketones Negative (Negative) 06/29/23 23:25 Urine Blood Negative (Negative) 06/29/23 23:25 Urine Nitrite Negative (Negative) 06/29/23 23:25 Urine Bilirubin Negative (Negative) 06/29/23 23:25 Urine Urobilinogen Negative (Negative) 06/29/23 23:25 Ur Leukocyte Esterase Negative (Negative) 06/29/23 23:25 Adenovirus (PCR) Not Detected (NotDetected) 06/29/23 Unknown B. pertussis DNA (PCR) Not Detected (NotDetected) 06/29/23 Unknown B.parapertussis DNA PCR Not Detected (NotDetected) 06/29/23 Unknown Lyme Disease IgG Ab Negative (Negative) 06/29/23 16:59 Lyme Disease IgM Ab Negative (Negative) 06/29/23 16:59 C. pneumoniae DNA (PCR) Not Detected (NotDetected) 06/29/23 Unknown Coronavirus OC43 (PCR) Not Detected (NotDetected) 06/29/23 Unknown Coronavirus HKU1 (PCR) Not Detected (NotDetected) 06/29/23 Unknown Coronavirus 229E (PCR) Not Detected (NotDetected) 06/29/23 Unknown SARS-CoV-2 (PCR) Not Detected (NotDetected) 06/29/23 Unknown Coronavirus NL63 (PCR) Not Detected (NotDetected) 06/29/23 Unknown Human Metapneumovir PCR Not Detected (NotDetected) 06/29/23 Unknown Influenza Type A (PCR) Not Detected (NotDetected) 06/29/23 Unknown Influenza Type B (PCR) Not Detected (NotDetected) 06/29/23 Unknown M. pneumoniae (PCR) Not Detected (NotDetected) 06/29/23 Unknown Parainfluenza 1 (PCR) Not Detected (NotDetected) 06/29/23 Unknown Parainfluenza 2 (PCR) Not Detected (NotDetected) 06/29/23 Unknown Parainfluenza 3 (PCR) Not Detected (NotDetected) 06/29/23 Unknown Parainfluenza 4 (PCR) Not Detected (NotDetected) 06/29/23 Unknown RSV (PCR) Not Detected (NotDetected) 06/29/23 Unknown Entero/Rhino (PCR) Not Detected (NotDetected) 06/29/23 Unknown Impressions Abdomen/Pelvis CT 06/29/23 16:47 CT abd pelvis IV con only CLINICAL HISTORY: Abdominal pain, fever TECHNIQUE: Helical axial images of the abdomen and pelvis were obtained and displayed. Automated dose lowering techniques and/or adjustment according to patient size were utilized for this exam. This exam was performed with intravenous contrast. CT DOSE: 1549.17 mGy.cm COMPARISON: Comparison is made to CT abdomen pelvis 01/26/2023 FINDINGS: Lower chest: Atelectasis is in the lower lungs. Liver: Unremarkable. No focal lesions are seen. Gallbladder and biliary tree: No calcified gallstones. Normal caliber wall. No intra- or extrahepatic biliary ductal dilation. Pancreas: A cystic lesion in the pancreas measures 21 mm in diameter. Spleen: Calcifications are noted in the spleen compatible with prior granulomatous disease. Adrenals: Unremarkable. Kidneys and ureters: Renal cysts are seen. Bladder: Unremarkable. Reproductive organs: Clips in the inguinal canals compatible with vasectomy. Bowel: Diverticulosis is seen without evidence of diverticulitis. Patient is status post appendectomy and colonic resection. There is a small hiatal hernia. Lymph nodes Retroperitoneal: Unremarkable. Pelvic: Unremarkable. Mesenteric: Unremarkable. Peritoneum: Normal. Vessels: Atherosclerotic calcifications are seen. Abdominal wall: Ventral hernia repair is seen. Additional left lateral and ventral fat-containing hernias are noted. There is a tiny fluid collection measuring 6 x 26 mm in length. Bones: Degenerative changes in the visualized spine. IMPRESSION: Postsurgical changes of ventral hernia repair. Previously noted gas and fluid collection is significantly decreased in size. No remaining subcutaneous gas is seen. No other abnormalities are seen to explain fever and abdominal pain. ACT 112: Negative or not required by law. Electronically signed by: Ramón You M.D. 06/29/2023 6:18 PM Chest X-Ray 06/29/23 16:47 XR chest 1V portable CLINICAL HISTORY: Chest pain, nonspecific TECHNIQUE: Single frontal radiograph of the chest was obtained. Comparison: Comparison is made to chest radiograph 05/04/2023 FINDINGS: No lines and tubes are seen. Cardiomegaly is noted. The lungs are clear. No ev idence of pleural effusion or pneumothorax. IMPRESSION: No acute chest disease. Cardiomegaly is noted. ACT 112: Negative or not required by law. Electronically signed by: Ramón You M.D. 06/29/2023 5:28 PM Knee X-Ray 06/29/23 16:47 XR knee RT 1 or 2V routine CLINICAL HISTORY: Knee pain, swelling, fever TECHNIQUE: 2 views of the right knee were obtained. Comparison: Comparison is made to knee radiograph 11/28/2022 FINDINGS: There is no evidence of an acute fracture. Patient is status post total knee arthroplasty. No perihardware lucency or hardware fracture is seen. No joint effusion is seen. Soft tissue swelling is seen about the knee. IMPRESSION: Soft tissue swelling is seen about the knee. No bony abnormality is seen. Knee arthroplasty is unremarkable. ACT 112: Negative or not required by law. Electronically signed by: Ramón You M.D. 06/29/2023 5:49 PM
[2023-06-30 10:43] LABS: A calco-baum cmplx NotReported Not Detected (NotDetected); Bact fragilis Not Reported Not Detected (NotDetected); Blood Culture Id Panel See PCR Comment (NotDetected); C auris Not Reported Not Detected (NotDetected); Calbicans Not Reported Not Detected (NotDetected); Candida glabrata Not Reported Not Detected (NotDetected); Candida krusei Not Reported Not Detected (NotDetected); Cneoformans/gatti Not Reported Not Detected (NotDetected); Cparapsilosis Not Reported Not Detected (NotDetected); E cloacae compx Not Reported Not Detected (NotDetected); Efaecalis Not Reported Not Detected (NotDetected); Efaecium Not Reported Not Detected (NotDetected); Enterobacterales Not Reported Not Detected (NotDetected); Escherichia coli Not Reported Not Detected (NotDetected); H influenzae Not Reported Not Detected (NotDetected); K aerogenes Not Reported Not Detected (NotDetected); Koxytoca Not Reported Not Detected (NotDetected); Kpneumoniae grp Not Reported Not Detected (NotDetected); Lmonocyt Not Reported Not Detected (NotDetected); N meningitidis Not Reported Not Detected (NotDetected); P aeruginosa Not Reported Not Detected (NotDetected); Proteus spp Not Reported Not Detected (NotDetected); Salmonella spp Not Reported Not Detected (NotDetected); Smarcescens Not Reported Not Detected (NotDetected); Staph lugdunensis Not Reported Not Detected (NotDetected); Staph spp. Not Reported DETECTED (NotDetected); Staphaureus Not Reported DETECTED (NotDetected); Staphepi Not Reported Not Detected (NotDetected); Staphylococcus spp. DETECTED (NotDetected); Stenmaltophilia Not Reported Not Detected (NotDetected); Strep agal(GrpB) Not Reported Not Detected (NotDetected); Strep pneum Not Reported Not Detected (NotDetected); Strep pyog (GrpA) Not Reported Not Detected (NotDetected); Strep spp Not Reported Not Detected (NotDetected)
[2023-06-30 11:19] LABS: mecAC+MREJ Resistant Gene MRSA DETECTED (NotDetected)
--- NOTE | 2023-06-30 12:17 | Electrocardiogram Report ---
Test Reason : Blood Pressure : / mmHG Vent. Rate : 075 BPM Atrial Rate : 075 BPM P-R Int : 176 ms QRS Dur : 110 ms QT Int : 412 ms P-R-T Axes : 019 -40 017 degrees QTc Int : 460 ms Normal sinus rhythm Left axis deviation Nonspecific T wave abnormality Prolonged QT Abnormal ECG When compared with ECG of 04-MAY-2023 19:33, Minimal criteria for Anterior infarct are no longer Present Confirmed by Indio Beauchamp ([id number]) on 06/30/2023 12:17:26 PM Referred By: REFERRED SELF Confirmed By:Mikhail Beauchamp
--- NOTE | 2023-06-30 15:36 | Pharmacy Report ---
Pharmacy PK ABX Note - Date of Service June 30, 2023 - Assessment and Plan Assessment 77 year old M receiving vancomycin/cefepime for treatment of septic join/bacteremia. Pertinent microbiologic data includes: BC 2/ positive for MRSA. Planned transfer to [facility]. WBC 28. Tmax 38.1. Plan Vancomycin * Loading dose: 2250 mg IV x 1 * Maintenance dose: 1000 mg IV every 12 hours * Regimen is predicted to achieve target AUC/KARL of 400-600 mg/L.hr * Will get early level tomorrow AM @1000 if patient still at our facility given MRSA bacteremia Pharmacy will continue to follow and will adjust dose/frequency as necessary. Thank you. Pharmacy has transitioned to AUC monitoring for vancomycin. AUC/KARL is the preferred PK/PD target and is associated with decreased risk of nephrotoxicity compared to traditional trough targets.
--- NOTE | 2023-06-30 16:38 | Discharge Summary ---
Date of Service June 30, 2023 Admission HPI Per Admitting Provider 77 yo male with PMHx of incisional hernia s/p repair, HFrEF, atrial fibrillation, anxiety, depression, GERD, HTN, RA, CAD, and HLD. This morning he woke up with significant right knee pain and had difficulty getting into his wheelchair. Denies recent injury. Denies headache, chest pain, shortness of breath, nausea, vomiting, diarrhea, dysuria. His right knee does have a history of septic joint couple years ago followed by a right knee arthroplasty last year. He was also admitted to [facility] this past Fall for a superficial cellulitis over the same knee. He does note some lower abdominal pain over the last couple of weeks which has been constant. Does have a history of 4 hernia repairs in the past. No known h/o gout. Admission Exam Per Admitting Provider Constitutional: in no acute distress, pleasant and normal affect, intact memory. AOx3. Vitals as above. HEENT: No scleral injection or discharge.Dry mucous membranes. Neck: Supple without lymphadenopathy or thyromegaly. Trachea midline. Lungs: Clear to auscultation bilaterally with good effort. No wheezes/rales/rhonchi. Cardiac: Regular rate and rhythm.No murmurs.No lower extremity edema. 2+ distal peripheral pulses. Abdomen: Soft. Distended. Moderate lower quadrant tenderness upon palpation.No guarding. No hepatosplenomegaly. MSK: R knee: exquisitely tender to palpation anteriorly, limited ROM secondary to pain, diffuse anterior/posterior pain with attempted passive knee flexion, no obvious superficial erythema Skin: warm, dry. Neurologic: no focal deficits Principal Diagnosis Right knee septic arthritis status post recent right total knee arthroplasty few months ago at [facility] Gram-positive bacteremia Immunocompromised host Discharge Exam General: Awake, conversant Heart: S1, S2/regular rate and rhythm, no murmur rubs or gallops Lungs: Clear to auscultation bilaterally. Normal effort Abdomen: Soft/nontender/nondistended. No hepatosplenomegaly Extremities: No clubbing/cyanosis. Right knee swollen, tender, red. Limited range of motion due to pain Behavior: Appropriate, cooperative Discharge Data Allergies Allergy/AdvReac Type Severity Reaction Status Date / Time cat dander Allergy Severe Swelling Verified 06/29/23 18:39 of Lip/Tongue/Throat Consultations 06/29/23 19:49 ED Decision to Admit Stat 06/30/23 07:16 Consult Orthopedic Surgery Routine Ordered Studies 06/29/23 16:47 CT abd pelvis IV con only Stat Hospital Course (1) Right knee pain: 77 yo male with PMHx of incisional hernia s/p repair, HFrEF, atrial fib rillation, anxiety, depression, GERD, HTN, RA, CAD, and HLD. This morning he woke up with significant right knee pain and had difficulty getting into his wheelchair. #Septic Joint -presented with 1 day significant R knee pain. SIRS on admission (2/4 with leukocytosis and fever). Lactate wnl. No superficial erythema/rash. Concern for septic joint. He is ~8 months out from R knee replacement. Cannot exclude gout. Lyme pending. -R knee XR: soft tissue swelling Started on IV vancomycin and cefepime Blood culture growing GPC in clusters. MRSA serology positive Was seen by orthopedics, Blake Levy this morning who initiated transfer to [facility] Patient has been accepted at [facility]. Accepting doctor is Dr. Kern. Bed available. Transportation arranged for 10 PM tonight. N.p.o. postmidnight for potential surgery tomorrow Patient will need to be managed for gram-positive bacteremia with echocardiogram and ID consultation at the tertiary care center. Currently covered with vancomycin. Patient is hemodynamically stable at this time but is an immunocompromised host due to being on immunosuppressants for rheumatoid arthritis #H/o hernias with repair -2 weeks of constant abd pain/fullness - do not suspect these symptoms related to above -CT A/P: Ventral hernia repair is seen. Additional left lateral and ventral fat- containing hernias are noted. There is a tiny fluid collection measuring 6 x 26 mm in length. -scheduled to see outpatient general surgery later this week for evaluation; consider inpatient evaluation d/t likely prolonged hospital stay #Atrial Fibrillation -cont. amiodarone, metoprolol Hold Eliquis for surgery tomorrow #CAD, Angina, HFrEF, HTN -cont. asa, statin, olmesartan, metoprolol, ranolazine #Rheumatoid Arthritis -hold Rinvoq in setting of infection Immunocompromised host #Anxiety, Depression, Insomnia -cont. duloxetine, mirtazapine #Neuropathy -cont. duloxetine, gabapentin #GERD -cont. PPI #Glaucoma -cont. latanoprost #HLD -cont. statin #Constipation -cont. sennoside DVT ppx: Neno held for potential surgery tomorrow Code Status: full Disposition: Transfer to [facility] tonight at 10 PM Total Time Total Time Spent Total Time Spent (In Minutes): 35 Discharge Plan Discharge Items Patient Disposition: Transfer Acute Care Hospital Reason For Visit: R KNEE PAIN Discharge Diagnosis: Right knee septic arthritis GPC bacteremia Activity: As commented below Activity Comment: bed rest Non-emergency contact: Primary Care Provider Call non-emergency contact if: you have any medication questions and your symptoms worsen Follow-up/Referrals: Danny Soliman DO [Primary Care Provider] - Diet: Heart Healthy Addtl Attending Provider Instructions: - Advised to note that you are being transferred to [facility] due to concerns of septic arthritis Pending Studies at Discharge: Yes Studies:: blood culture Stand-Alone Forms: My [facility] Skilled Items Patient informed of condition?: Yes DNR: No Discharge Level of Care: Other Communicable Disease: No Discharge Prognosis: Stable Lines: Peripheral IV Urinary Catheter: No Medications and DC Order Prescriptions: Continued acetaminophen 500 mg capsule 1,000 mg PO TID Rx Instructions: takes with gabapentin cholecalciferol (vitamin D3) 250 mcg (10,000 unit) tablet 250 mcg PO DAILY 90 Days Qty: 90 3RF gabapentin 400 mg capsule 400 mg PO TID 30 Days Qty: 90 5RF latanoprost 0.005 % drops 1 drp ophthalmic (eye) QPM senna 8.6 mg capsule 8.6 mg PO [facility] diclofenac sodium [Voltaren Arthritis Pain] 1 % gel 2 g topical QID Qty: 200 2RF ipratropium bromide 21 mcg (0.03 %) spray,non-aerosol 2 spray intranasal BID Qty: 30 2RF Rx Instructions: administer into each nostril aspirin [Adult Low Dose Aspirin] 81 mg tablet,delayed release (DR/EC) 81 mg PO QAM Hold Instructions: Resume on 02/23/23. until PCP/surgery followup isosorbide mononitrate 60 mg tablet extended release 24 hr 60 mg PO QAM [id number]-gjrftgf-nnoy-lutein Tablet 1 tab PO QAM coenzyme Q10 100 mg capsule 100 mg PO QAM Adult 50 Plus Probiotic 4 billion cell capsule 6,000 mmu cells PO QAM PRN (Reason: use with antibiotics) Rx Instructions: administer with a meal ascorbic acid (vitamin C) 500 mg capsule 1,000 mg PO QAM melatonin 5 mg capsule 5 mg PO HS PRN (Reason: Sleep) cyanocobalamin (vitamin B-12) 500 mcg Tablet 1,000 mcg PO QAM Qty: 30 0RF hydroxyzine HCl 10 mg Tablet 10 mg PO HS PRN (Reason: anxiety or insomnia) Qty: 14 0RF folic acid 1 mg Tablet 1 mg PO QAM Qty: 30 0RF thiamine HCl (vitamin B1) 100 mg tablet 100 mg PO QAM esomeprazole magnesium [Nexium] 40 mg capsule,delayed release(DR/EC) 40 mg PO HS duloxetine 60 mg capsule,delayed release(DR/EC) 60 mg PO QAM pravastatin 40 mg tablet 40 mg PO DAILY Rx Instructions: TAKE 1 TABLET BY MOUTH ONCE DAILY amiodarone 200 mg tablet 200 mg PO DAILY Rx Instructions: TAKE 1 TABLET BY MOUTH ONCE DAILY mirtazapine 15 mg tablet 15 mg PO HS Rx Instructions: TAKE 1 TABLET BY MOUTH AT BEDTIME metoprolol tartrate 25 mg tablet 12.5 mg PO BID Rx Instructions: TAKE 1/2 TABLET BY MOUTH TWICE DAILY FOR YOUR HEART AND HIGH BLOOD PRESSURE ranolazine 500 mg tablet extended release 12 hr 500 mg PO BID Rx Instructions: TAKE 1 TABLET BY MOUTH TWICE DAILY Discontinued nitroglycerin 0.4 mg tablet, sublingual 0.4 mg sublingual Q5M PRN (Reason: chest pain) Qty: 30 0RF Rx Instructions: do not exceed 3 doses per episode omega [id number]-[id number]-fish oil [Fish Oil] 1,000 mg (120 mg-180 mg) capsule 1 cap PO QAM Qty: 90 3RF Rinvoq 15 mg tablet extended release 24 hr 15 mg PO DAILY furosemide 20 mg tablet 20 mg PO DAILY PRN (Reason: edema or weight gain) Qty: 30 5RF potassium chloride 10 mEq tablet,ER particles/crystals 20 meq PO DAILY PRN (Reason: when taking lasix) Eliquis 2.5 mg tablet 2.5 mg PO BID Rx Instructions: TAKE 1 TABLET BY MOUTH TWICE DAILY olmesartan 5 mg tablet 5 mg PO DAILY Rx Instructions: TAKE 1 TABLET BY MOUTH DAILY Discharge Orders: Discharge Order (Routine); Ordered 06/30/23 Ordered By: Bouchra Gasca Admission Data Admit Date/Time: 06/29/23 20:21 Attending Provider: Bouchra Gasca Admit Provider: Mark Delgado Primary Care Provider: Danny Soliman Other Providers: Himanshu Weinstein; Franc Ramos; Rupert Medina; Blake Levy; Roma Prakash; Mercedes Parra; Alejandro Robb; Alvin Mobley; Hermes Tamayo; Hermes Marcial; Amarilis Valverde; Winnie Hernandez; Marcela Pimentel; Radha Macias; Zuleyma Sams; Octavio Platt; Campbell Garcia; Neftaly Aaron; Fadi Cardenas Coding Level of Care Code 99162 INP/OBS DISCH >30 MIN Diagnoses Right knee pain M25.561
[2023-06-30] MEDS: MIRTAZAPINE TAB 15 MG TAB PO SCH (20:16)
[2023-06-30] MEDS ORDERED: PRAVASTATIN SOD 40 MG TAB PO SCH (21:00)
[2023-06-30] MEDS ORDERED: PANTOprazole 40 MG TAB PO SCH (21:00)
[2023-06-30] MEDS: LATANOPROST 0.005% OP SOLN 2.5 ML BTL OP SCH (22:25)
[2023-07-01] MEDS: ACETAMINOPHEN 325 MG TAB PO PRN (00:45)
[2023-07-01] MEDS: HYDROmorphone INJ 1 MG/ML SYRINGE IV PRN (01:15)
== END 2023-07-01 01:20 | disposition short-term general hospital (02) | DRG 560 ==
LOC: ED 16:29 → SUATTDRO 20:21 → EDINP 20:21 → 2S 20:53

== ENCOUNTER 2023-10-19 08:26 | Observation (INO) ==
--- NOTE | 2023-10-19 08:54 | Emergency Department Note ---
Impression & Plan Dislocation, hip closed Transfer to OR ED Provider Note HPI: History obtained from patient. The patient is a 77-year-old gentleman with multiple comorbidities including coronary artery disease, rheumatoid arthritis, hypertension, heart failure with reduced ejection fraction, presents the emergency department today with concern for right hip dislocation. Patient states that shortly prior to arrival to the ER he was getting out of bed and reaching to get a phone data assistant that was on the ground when he felt an acute pop in his right hip. Patient states that he does have a prosthesis on the side and has previously dislocated his right hip. ROS: - Per HPI Differential Diagnosis: Periprosthetic hip fracture, right hip dislocation, pelvic fracture, amongst other potential pathologies. *Outpatient medications and allergy history reviewed. PE: General: Alert, obese, no acute distress HEENT: Normocephalic, trachea midline Eyes: Extraocular eye movement is intact, no scleral erythema Pulmonary: Clear to auscultation bilaterally, no wheezing Cardio: Regular rate and rhythm GI: Abdomen is soft to palpation : No suprapubic tenderness MSK: Right lower extremity slightly shortened and internally rotated, palpable dorsalis pedis pulse in the right lower extremity, 1+ bilateral edema of the lower extremities Skin: Chronic erythema to the bilateral lower extremities and feet consistent with likely venous stasis Neuro: Alert, no focal deficits Psychiatric: Cooperative 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: (As interpreted by myself): - An order was placed for continuous cardiac monitoring - Patient was noted to be in sinus rhythm with a rate of 70 Interventions provided in ED: -IV morphine, IV Zofran Procedure note: Right hip dislocation/reduction: -Written consent was obtained -Timeout was performed at the bedside at 1045 -Sedation provided by anesthesia (please see separate documentation) -When the patient was adequately sedated, right hip was flexed, utilizing traction and gentle internal and external rotation palpable reduction at the right hip was achieved several times, when the right lower extremity was then again extended the femoral head component of the prosthesis had a palpable dislocation 2 times. On the third attempt reduction was thought to be successfully achieved and the patient was placed in a knee immobilizer while the leg was still flexed and then gently brought down to the bed. -X-ray imaging shows persistent superior and lateral dislocation of the right hip prosthesis. -On reassessment the patient is alert, motor and sensory function is intact distally in the right lower extremity following the attempted dislocation right/reduction Medical Decision Making: Patient presented to the emergency department with right hip pain. X-ray imaging confirms prosthetic dislocation. This appears to be superior and lateral. Patient remained otherwise stable while here in the ED, he states that he has had previous dislocations of this prosthesis that did require transfer to the operating room secondary to difficulty in the emergency room with reduction. Patient is estimated to be ASA class III and is obese. I discussed the patient's presentation initially with on-call orthopedics, Dr. Kern, who states that he is currently in the clinic in [place] and would not be able to assist. I therefore did consult with anesthesia for bedside procedural sedation and the patient was evaluated at the bedside by Dr. Talley and CORRECTION OFFICER HEAD. Following their evaluation the patient was considered safe to proceed with bedside sedation/procedural sedation. Patient was in agreement to this plan. Patient was sedated, please see anesthesia documentation for details. I did attempt the reduction of the right hip myself at the bedside. Please see procedure note. Despite some laxity in the right hip and several apparent relocations of the joint dislocation recurred each time when the right lower extremity was extended back down to the bed. On the third attempt, satisfactory relocation was thought to be achieved however x-ray imaging does show persistent lateral dislocation. At this point I again discussed the patient's presentation with Dr. Kern. He was able to get in touch with one of his colleagues who is in-house at the hospital today (Dr. Conklin) and the patient was transferred to the operating room for relocation to be performed by the orthopedic service. I discussed this with the patient and his son at the bedside and they are in agreement to this plan. Patient was transferred in stable condition for further care. Consultants/Discussions held with other healthcare providers: -Orthopedic surgery, Dr. Kern Disposition discussion held by myself with: -Patient and son at bedside Diagnosis: 1. Right hip prosthetic dislocation, acute, closed Disposition: Transfer to the OR Jae Wiley DO Emergency Medicine Past Med/Surg History Medical History History of immunosuppressive therapy Pain of right hip Prophylactic antibiotic History of sepsis Injury of left rotator cuff Left shoulder pain Abdominal wall abscess Incisional hernia Lumbar radiculopathy Sepsis 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 knee, occurrred during atrial fibrillation episode. "when he woke up, he couldn't walk." Atrial fibrillation episode occurred in 03/2022, taken to [facility] in [place], admitted to ICU for 1-2 weeks (was not intubated, but wasn't "awake either"), then to cardiac unit, then to rehab at [facility]; f/u dr. guerra in [place]>will be starting to see a ash kier boiler at [facility] 2nd week of 08/2022 Myocardial Infarction "a silent one, 2019" Sleep apnea no device GERD (gastroesophageal reflux disease) Anxiety and depression HFrEF (heart failure with reduced ejection fraction) EF 40% Mar 2022, improved 55-60% August 2022 Surgical History Hx of Achilles tendon repair rt. Hx of knee surgery rt. patellar tendon repair Hx of rotator cuff surgery bilateral Hx of total knee replacement lt. Hx of total hip arthroplasty rt. History of colostomy reversal History of bowel resection for diverticulitis; w/colostomy placement for 3-4 months Hx of hernia repair near former colostomy site History of esophagogastroduodenoscopy (EGD) Hx of colonoscopy Last Colonoscopy 08/14/22, repeat 3 years in 2025 Hx of bilateral cataract extraction History of heart artery stent ~3 years ago, x2 stents, done in [place]; f/u dr guerra, [place]>will be seeing new cardio at [place] 2nd week of August 2022. History of cardiac cath ~3 years ago, SOB and "felt like throat was constricting", had "silent heart attack", x2 stents, done in [place] Family History Grandmother (Maternal) Diabetes Daughter Diabetes Father Suicide Hypertension Denies family history of Ovarian cancer Prostate cancer Myocardial infarction Breast cancer Lung cancer Colorectal cancer Stroke Social History Smoking Status: Never smoker Second Hand Exposure: No; Do You Dip or Chew Tobacco: No; Hx Alcohol Use: Yes Alcohol type: wine Alcohol Intake Frequency: 4 or More x per/Week Hx Substance Use: No Preferred Language: Italian Communication Ability: Effective Visual Impairment: Limited Hearing Ability: Normal 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 Assembly And Packing Required: No Beliefs That Will Affect Care: None marital status: Single Current Living Situation: Personal Care Facility Current Living Situation Comment: Independent living current occupational status: retired How many Children do You have: 2 Feels Safe at Home: Yes Childhood Exposure to Second-Hand Smoke: Yes caffeine: Yes Dental Care, Regularly: Yes Physical Activity Frequency: Does not Exercise Seatbelt Use: always Sunscreen Use: Yes Assistive Devices: Walker and Wheelchair Allergies Allergies Allergy/AdvReac Type Severity Reaction Status Date / Time cat dander Allergy Severe Swelling Verified 10/19/23 13:23 of Lip/Tongue/Throat No Known Drug Allergies Allergy Unknown Verified 10/19/23 13:33 Home Meds Home Medications Medication Instructions Recorded Confirmed sennosides 8.6 mg capsule (senna) 8.6 mg PO AMHS 06/19/22 10/19/23 ascorbic acid (vitamin C) 500 mg 1,000 mg PO QAM 08/07/22 10/19/23 capsule aspirin 81 mg tablet,delayed 81 mg PO QAM 08/07/22 10/19/23 release (Adult Low Dose Aspirin) coenzyme Q10 100 mg capsule 100 mg PO QAM 08/07/22 10/19/23 lactobacillus combination no.9 4 6,000 mmu cells PO QAM PRN use 08/07/22 10/19/23 billion cell capsule (Adult 50 with antibiotics Plus Probiotic) dzqeabux-spzlklh-xbvc-lutein tablet 1 tab PO QAM 08/07/22 10/19/23 duloxetine 60 mg capsule,delayed 60 mg PO QAM 02/05/23 10/19/23 release esomeprazole magnesium 40 mg 40 mg PO HS 02/05/23 10/19/23 capsule,delayed release (Nexium) thiamine HCl (vitamin B1) 100 mg 100 mg PO QAM 02/05/23 10/19/23 tablet melatonin 5 mg capsule 5 mg PO HS PRN Sleep 02/16/23 10/19/23 amiodarone 200 mg tablet 200 mg PO DAILY 06/29/23 10/19/23 acetaminophen 500 mg capsule 500 mg PO Q6H PRN Pain 08/21/23 10/19/23 latanoprost 0.005 % eye drops 1 drp ophthalmic (eye) QPM 08/21/23 10/19/23 doxycycline monohydrate 100 mg 100 mg PO BID 09/18/23 10/19/23 capsule oxycodone 5 mg tablet 5 mg PO BID PRN Pain 09/23/23 10/19/23 upadacitinib 15 mg tablet,extended 15 mg PO DAILY 09/23/23 10/19/23 release 24 hr (Rinvoq) Previous Rx's Medication Instructions Recorded cholecalciferol (vitamin D3) 250 250 mcg PO DAILY 90 days #90 tabs 09/19/22 mcg (10,000 unit) tablet cyanocobalamin (vitamin B-12) 500 1,000 mcg (2 x 500 mcg) PO QAM #30 01/18/23 mcg tablet tabs folic acid 1 mg tablet 1 mg PO QAM #30 tabs 01/18/23 hydroxyzine HCl 10 mg tablet 10 mg PO HS PRN anxiety or 01/18/23 insomnia #14 tabs diclofenac sodium 1 % topical gel 2 g topical QID #200 grams 04/24/23 (Voltaren Arthritis Pain) ranolazine 500 mg tablet,extended See Rx Instructions .Route 08/13/23 release,12 hr .COMPLEX #60 tabs apixaban 2.5 mg tablet (Eliquis) 2.5 mg PO BID #90 tabs 08/24/23 gabapentin 400 mg capsule 400 mg PO TID 30 days #90 caps 09/03/23 olmesartan 5 mg tablet 5 mg PO DAILY 90 days #90 tabs 09/03/23 pravastatin 40 mg tablet 40 mg PO DAILY #90 tabs 09/03/23 metoprolol tartrate 25 mg tablet 12.5 mg (1/2 x 25 mg) PO BID 30 09/24/23 days #30 tabs isosorbide mononitrate 60 mg 60 mg PO QAM #90 tabs 10/08/23 tablet,extended release 24 hr mirtazapine 30 mg tablet 30 mg PO DAILY #90 tabs 10/13/23 Results & Data (ED) Vital Signs Vital Signs - 24 hr 10/19/23 08:33 10/19/23 08:50 10/19/23 10:05 Temperature 36.9 C Temperature Source Oral Pulse Rate 63 57 L 61 Pulse Rate [Apical] Pulse Rate [Left Finger] Pulse Rate from SpO2 Sensor 62 Pulse Rhythm [Left Finger] Pulse Strength [Left Finger] Respiratory Rate 18 15 Respiratory Effort / Characteristics Non-Labored Spontaneous Respiratory Depth Normal Respiratory Pattern Blood Pressure 179/94 H Blood Pressure [Left Arm] Blood Pressure Mean 122 Blood Pressure Mean [Left Arm] Blood Pressure Position Lying Blood Pressure Position [Left Arm] Pulse Oximetry 96 95 Oxygen Delivery Method Room Air Oxygen Flow Rate Sepsis Recent Fever Within 48 Hours No Sepsis New/Unexplained Change in Mental Status No Sepsis Action Taken by Nursing No Action Required End-Tidal CO2 End Tidal CO2 (18-54mmHg) 10/19/23 10:06 10/19/23 10:10 10/19/23 10:15 Temperature Temperature Source Pulse Rate 58 L 62 Pulse Rate [Apical] 61 Pulse Rate [Left Finger] Pulse Rate from SpO2 Sensor 59 L 62 Pulse Rhythm [Left Finger] Pulse Strength [Left Finger] Respiratory Rate 18 18 14 Respiratory Effort / Characteristics Non-Labored Spontaneous Respiratory Depth Normal Respiratory Pattern Blood Pressure Blood Pressure [Left Arm] 160/94 H Blood Pressure Mean Blood Pressure Mean [Left Arm] 116 Blood Pressure Position Blood Pressure Position [Left Arm] Lying Pulse Oximetry 96 95 95 Oxygen Delivery Method Room Air Oxygen Flow Rate Sepsis Recent Fever Within 48 Hours Sepsis New/Unexplained Change in Mental Status Sepsis Action Taken by Nursing End-Tidal CO2 End Tidal CO2 (18-54mmHg) 10/19/23 10:20 10/19/23 10:25 10/19/23 10:30 Temperature Temperature Source Pulse Rate 64 58 L 61 Pulse Rate [Apical] Pulse Rate [Left Finger] Pulse Rate from SpO2 Sensor 62 59 L 61 Pulse Rhythm [Left Finger] Pulse Strength [Left Finger] Respiratory Rate 18 16 11 L Respiratory Effort / Characteristics Respiratory Depth Respiratory Pattern Blood Pressure Blood Pressure [Left Arm] Blood Pressure Mean Blood Pressure Mean [Left Arm] Blood Pressure Position Blood Pressure Position [Left Arm] Pulse Oximetry 96 95 95 Oxygen Delivery Method Oxygen Flow Rate Sepsis Recent Fever Within 48 Hours Sepsis New/Unexplained Change in Mental Status Sepsis Action Taken by Nursing End-Tidal CO2 44 End Tidal CO2 (18-54mmHg) 10/19/23 10:35 10/19/23 10:39 10/19/23 10:39 Temperature Temperature Source Pulse Rate 62 61 Pulse Rate [Apical] Pulse Rate [Left Finger] Pulse Rate from SpO2 Sensor 62 61 Pulse Rhythm [Left Finger] Pulse Strength [Left Finger] Respiratory Rate 17 11 L Respiratory Effort / Characteristics Respiratory Depth Respiratory Pattern Blood Pressure 138/90 Blood Pressure [Left Arm] Blood Pressure Mean 105 Blood Pressure Mean [Left Arm] Blood Pressure Position Blood Pressure Position [Left Arm] Pulse Oximetry 96 97 Oxygen Delivery Method Oxygen Flow Rate Sepsis Recent Fever Within 48 Hours Sepsis New/Unexplained Change in Mental Status Sepsis Action Taken by Nursing End-Tidal CO2 45 End Tidal CO2 (18-54mmHg) 10/19/23 10:40 10/19/23 10:40 10/19/23 10:40 Temperature Temperature Source Pulse Rate 61 59 L Pulse Rate [Apical] Pulse Rate [Left Finger] Pulse Rate from SpO2 Sensor 60 Pulse Rhythm [Left Finger] Pulse Strength [Left Finger] Respiratory Rate 6 L 11 L Respiratory Effort / Characteristics Non-Labored Respiratory Depth Respiratory Pattern Blood Pressure 185/103 H Blood Pressure [Left Arm] 184/105 H Blood Pressure Mean 147 Blood Pressure Mean [Left Arm] Blood Pressure Position Blood Pressure Position [Left Arm] Pulse Oximetry 99 93 Oxygen Delivery Method Oxymask Oxygen Flow Rate 8 Sepsis Recent Fever Within 48 Hours Sepsis New/Unexplained Change in Mental Status Sepsis Action Taken by Nursing End-Tidal CO2 End Tidal CO2 (18-54mmHg) 6 10/19/23 10:44 10/19/23 10:44 10/19/23 10:45 Temperature Temperature Source Pulse Rate 59 L 59 L Pulse Rate [Apical] Pulse Rate [Left Finger] Pulse Rate from SpO2 Sensor 58 L 60 Pulse Rhythm [Left Finger] Pulse Strength [Left Finger] Respiratory Rate 13 17 Respiratory Effort / Characteristics Respiratory Depth Respiratory Pattern Blood Pressure 166/102 H Blood Pressure [Left Arm] Blood Pressure Mean 126 Blood Pressure Mean [Left Arm] Blood Pressure Position Blood Pressure Position [Left Arm] Pulse Oximetry 100 100 Oxygen Delivery Method Oxygen Flow Rate 9 9 Sepsis Recent Fever Within 48 Hours Sepsis New/Unexplained Change in Mental Status Sepsis Action Taken by Nursing End-Tidal CO2 36 37 End Tidal CO2 (18-54mmHg) 10/19/23 10:45 10/19/23 10:50 10/19/23 10:52 Temperature Temperature Source Pulse Rate 65 Pulse Rate [Apical] Pulse Rate [Left Finger] Pulse Rate from SpO2 Sensor 64 Pulse Rhythm [Left Finger] Pulse Strength [Left Finger] Respiratory Rate 5 L Respiratory Effort / Characteristics Respiratory Depth Respiratory Pattern Blood Pressure 184/105 H 143/92 H Blood Pressure [Left Arm] Blood Pressure Mean 114 100 Blood Pressure Mean [Left Arm] Blood Pressure Position Blood Pressure Position [Left Arm] Pulse Oximetry 98 Oxygen Delivery Method Oxygen Flow Rate 9 9 Sepsis Recent Fever Within 48 Hours Sepsis New/Unexplained Change in Mental Status Sepsis Action Taken by Nursing End-Tidal CO2 32 End Tidal CO2 (18-54mmHg) 10/19/23 10:52 10/19/23 10:55 10/19/23 10:55 Temperature Temperature Source Pulse Rate 68 68 68 Pulse Rate [Apical] Pulse Rate [Left Finger] Pulse Rate from SpO2 Sensor 68 69 Pulse Rhythm [Left Finger] Pulse Strength [Left Finger] Respiratory Rate 8 L Respiratory Effort / Characteristics Respiratory Depth Respiratory Pattern Blood Pressure 164/105 H Blood Pressure [Left Arm] Blood Pressure Mean 113 Blood Pressure Mean [Left Arm] Blood Pressure Position Blood Pressure Position [Left Arm] Pulse Oximetry 97 97 Oxygen Delivery Method Oxygen Flow Rate 9 Sepsis Recent Fever Within 48 Hours Sepsis New/Unexplained Change in Mental Status Sepsis Action Taken by Nursing End-Tidal CO2 30 End Tidal CO2 (18-54mmHg) 10/19/23 10:57 10/19/23 10:57 10/19/23 11:00 Temperature Temperature Source Pulse Rate 65 69 Pulse Rate [Apical] Pulse Rate [Left Finger] Pulse Rate from SpO2 Sensor 65 68 Pulse Rhythm [Left Finger] Pulse Strength [Left Finger] Respiratory Rate 8 L 9 L Respiratory Effort / Characteristics Respiratory Depth Respiratory Pattern Blood Pressure 181/109 H Blood Pressure [Left Arm] Blood Pressure Mean 118 Blood Pressure Mean [Left Arm] Blood Pressure Position Blood Pressure Position [Left Arm] Pulse Oximetry 98 98 Oxygen Delivery Method Oxygen Flow Rate 9 Sepsis Recent Fever Within 48 Hours Sepsis New/Unexplained Change in Mental Status Sepsis Action Taken by Nursing End-Tidal CO2 12 15 End Tidal CO2 (18-54mmHg) 10/19/23 11:00 10/19/23 11:02 10/19/23 11:02 Temperature Temperature Source Pulse Rate 72 Pulse Rate [Apical] Pulse Rate [Left Finger] Pulse Rate from SpO2 Sensor 71 Pulse Rhythm [Left Finger] Pulse Strength [Left Finger] Respiratory Rate 7 L Respiratory Effort / Characteristics Respiratory Depth Respiratory Pattern Blood Pressure 162/109 H 180/108 H Blood Pressure [Left Arm] Blood Pressure Mean 125 159 Blood Pressure Mean [Left Arm] Blood Pressure Position Blood Pressure Position [Left Arm] Pulse Oximetry 97 Oxygen Delivery Method Oxygen Flow Rate 9 Sepsis Recent Fever Within 48 Hours Sepsis New/Unexplained Change in Mental Status Sepsis Action Taken by Nursing End-Tidal CO2 12 End Tidal CO2 (18-54mmHg) 10/19/23 11:05 10/19/23 11:05 10/19/23 11:09 Temperature Temperature Source Pulse Rate 71 70 70 Pulse Rate [Apical] Pulse Rate [Left Finger] Pulse Rate from SpO2 Sensor 69 70 Pulse Rhythm [Left Finger] Pulse Strength [Left Finger] Respiratory Rate 16 15 6 L Respiratory Effort / Characteristics Respiratory Depth Respiratory Pattern Blood Pressure 182/115 H Blood Pressure [Left Arm] Blood Pressure Mean 154 Blood Pressure Mean [Left Arm] Blood Pressure Position Blood Pressure Position [Left Arm] Pulse Oximetry 99 100 Oxygen Delivery Method Oxygen Flow Rate Sepsis Recent Fever Within 48 Hours Sepsis New/Unexplained Change in Mental Status Sepsis Action Taken by Nursing End-Tidal CO2 45 43 End Tidal CO2 (18-54mmHg) 10/19/23 11:09 10/19/23 11:10 10/19/23 11:10 Temperature Temperature Source Pulse Rate Pulse Rate [Apical] Pulse Rate [Left Finger] Pulse Rate from SpO2 Sensor Pulse Rhythm [Left Finger] Pulse Strength [Left Finger] Respiratory Rate Respiratory Effort / Characteristics Respiratory Depth Respiratory Pattern Blood Pressure 183/109 H 173/101 H 173/101 H Blood Pressure [Left Arm] Blood Pressure Mean 137 119 119 Blood Pressure Mean [Left Arm] Blood Pressure Position Blood Pressure Position [Left Arm] Pulse Oximetry Oxygen Delivery Method Oxygen Flow Rate Sepsis Recent Fever Within 48 Hours Sepsis New/Unexplained Change in Mental Status Sepsis Action Taken by Nursing End-Tidal CO2 End Tidal CO2 (18-54mmHg) 10/19/23 11:10 10/19/23 11:13 10/19/23 11:13 Temperature Temperature Source Pulse Rate 70 68 Pulse Rate [Apical] Pulse Rate [Left Finger] Pulse Rate from SpO2 Sensor 69 68 Pulse Rhythm [Left Finger] Pulse Strength [Left Finger] Respiratory Rate 10 L 10 L Respiratory Effort / Characteristics Respiratory Depth Respiratory Pattern Blood Pressure 133/96 Blood Pressure [Left Arm] Blood Pressure Mean 108 Blood Pressure Mean [Left Arm] Blood Pressure Position Blood Pressure Position [Left Arm] Pulse Oximetry 100 98 Oxygen Delivery Method Oxygen Flow Rate 9 Sepsis Recent Fever Within 48 Hours Sepsis New/Unexplained Change in Mental Status Sepsis Action Taken by Nursing End-Tidal CO2 49 28 End Tidal CO2 (18-54mmHg) 10/19/23 11:15 10/19/23 11:15 10/19/23 11:18 Temperature Temperature Source Pulse Rate 71 Pulse Rate [Apical] Pulse Rate [Left Finger] Pulse Rate from SpO2 Sensor 69 Pulse Rhythm [Left Finger] Pulse Strength [Left Finger] Respiratory Rate 12 Respiratory Effort / Characteristics Respiratory Depth Respiratory Pattern Blood Pressure 133/96 176/107 H 176/135 H Blood Pressure [Left Arm] Blood Pressure Mean 108 121 155 Blood Pressure Mean [Left Arm] Blood Pressure Position Blood Pressure Position [Left Arm] Pulse Oximetry 91 Oxygen Delivery Method Oxygen Flow Rate 0 Sepsis Recent Fever Within 48 Hours Sepsis New/Unexplained Change in Mental Status Sepsis Action Taken by Nursing End-Tidal CO2 40 End Tidal CO2 (18-54mmHg) 10/19/23 11:18 10/19/23 11:20 10/19/23 11:21 Temperature Temperature Source Pulse Rate 69 67 Pulse Rate [Apical] Pulse Rate [Left Finger] Pulse Rate from SpO2 Sensor 70 66 Pulse Rhythm [Left Finger] Pulse Strength [Left Finger] Respiratory Rate 19 15 Respiratory Effort / Characteristics Respiratory Depth Respiratory Pattern Blood Pressure 180/110 H Blood Pressure [Left Arm] Blood Pressure Mean 152 Blood Pressure Mean [Left Arm] Blood Pressure Position Blood Pressure Position [Left Arm] Pulse Oximetry 95 94 Oxygen Delivery Method Oxygen Flow Rate 0 0 Sepsis Recent Fever Within 48 Hours Sepsis New/Unexplained Change in Mental Status Sepsis Action Taken by Nursing End-Tidal CO2 44 35 End Tidal CO2 (18-54mmHg) 10/19/23 11:21 10/19/23 11:22 10/19/23 11:22 Temperature Temperature Source Pulse Rate 66 67 Pulse Rate [Apical] Pulse Rate [Left Finger] Pulse Rate from SpO2 Sensor 69 Pulse Rhythm [Left Finger] Pulse Strength [Left Finger] Respiratory Rate 16 12 Respiratory Effort / Characteristics Respiratory Depth Respiratory Pattern Blood Pressure 201/111 H Blood Pressure [Left Arm] Blood Pressure Mean 127 Blood Pressure Mean [Left Arm] Blood Pressure Position Blood Pressure Position [Left Arm] Pulse Oximetry 93 93 Oxygen Delivery Method Oxygen Flow Rate Sepsis Recent Fever Within 48 Hours Sepsis New/Unexplained Change in Mental Status Sepsis Action Taken by Nursing End-Tidal CO2 35 47 End Tidal CO2 (18-54mmHg) 10/19/23 11:25 10/19/23 11:25 10/19/23 11:28 Temperature Temperature Source Pulse Rate 69 69 69 Pulse Rate [Apical] Pulse Rate [Left Finger] Pulse Rate from SpO2 Sensor 68 68 68 Pulse Rhythm [Left Finger] Pulse Strength [Left Finger] Respiratory Rate 12 12 12 Respiratory Effort / Characteristics Respiratory Depth Respiratory Pattern Blood Pressure 202/122 H Blood Pressure [Left Arm] Blood Pressure Mean 135 Blood Pressure Mean [Left Arm] Blood Pressure Position Blood Pressure Position [Left Arm] Pulse Oximetry 100 96 96 Oxygen Delivery Method Oxygen Flow Rate Sepsis Recent Fever Within 48 Hours Sepsis New/Unexplained Change in Mental Status Sepsis Action Taken by Nursing End-Tidal CO2 51 50 47 End Tidal CO2 (18-54mmHg) 10/19/23 11:28 10/19/23 11:30 10/19/23 11:30 Temperature Temperature Source Pulse Rate 68 Pulse Rate [Apical] Pulse Rate [Left Finger] Pulse Rate from SpO2 Sensor 68 Pulse Rhythm [Left Finger] Pulse Strength [Left Finger] Respiratory Rate 13 Respiratory Effort / Characteristics Respiratory Depth Respiratory Pattern Blood Pressure 182/113 H 172/115 H Blood Pressure [Left Arm] Blood Pressure Mean 125 123 Blood Pressure Mean [Left Arm] Blood Pressure Position Blood Pressure Position [Left Arm] Pulse Oximetry 97 Oxygen Delivery Method Oxygen Flow Rate Sepsis Recent Fever Within 48 Hours Sepsis New/Unexplained Change in Mental Status Sepsis Action Taken by Nursing End-Tidal CO2 11 End Tidal CO2 (18-54mmHg) 10/19/23 11:40 10/19/23 12:25 10/19/23 13:04 Temperature Temperature Source Pulse Rate Pulse Rate [Apical] 68 66 Pulse Rate [Left Finger] Pulse Rate from SpO2 Sensor Pulse Rhythm [Left Finger] Pulse Strength [Left Finger] Respiratory Rate 18 16 Respiratory Effort / Characteristics Non-Labored Respiratory Depth Normal Respiratory Pattern Blood Pressure Blood Pressure [Left Arm] 185/100 H 180/108 H Blood Pressure Mean Blood Pressure Mean [Left Arm] 128 132 Blood Pressure Position Blood Pressure Position [Left Arm] Pulse Oximetry 96 92 Oxygen Delivery Method Room Air Room Air Room Air Oxygen Flow Rate Sepsis Recent Fever Within 48 Hours Sepsis New/Unexplained Change in Mental Status Sepsis Action Taken by Nursing End-Tidal CO2 End Tidal CO2 (18-54mmHg) 10/19/23 13:08 Temperature 36.7 C Temperature Source Oral Pulse Rate Pulse Rate [Apical] Pulse Rate [Left Finger] 69 Pulse Rate from SpO2 Sensor Pulse Rhythm [Left Finger] Regular Pulse Strength [Left Finger] Normal Respiratory Rate 18 Respiratory Effort / Characteristics Non-Labored Spontaneous Respiratory Depth Normal Respiratory Pattern Regular Blood Pressure Blood Pressure [Left Arm] 156/96 H Blood Pressure Mean Blood Pressure Mean [Left Arm] 116 Blood Pressure Position Blood Pressure Position [Left Arm] Sitting Pulse Oximetry 93 Oxygen Delivery Method Room Air Oxygen Flow Rate Sepsis Recent Fever Within 48 Hours Sepsis New/Unexplained Change in Mental Status Sepsis Action Taken by Nursing End-Tidal CO2 End Tidal CO2 (18-54mmHg) Laboratory Data 10/19/23 08:47 10/19/23 08:47 Lab Results 10/19/23 Range/Units 08:47 WBC 8.34 (4.8-10.8) K/ul RBC 4.73 (4.70-6.10) M/uL Hgb 15.1 (14.0-18.0) g/dl Hct 45.1 (42.0-52.0) % MCV 95.3 (80.0-100.0) fL MCH 31.9 (25.0-34.0) pg MCHC 33.5 (32.0-36.0) g/dL RDW Std Deviation 74.1 H (36.4-46.3) fL RDW Coeff of Sammie 21.4 H (11.5-14.5) % Plt Count 179 (130-400) K/uL MPV 9.6 (9.4-12.4) fL Immature Gran % (Auto) 1.1 % Neut % (Auto) 70.9 % Lymph % (Auto) 14.4 % [place]ka % (Auto) 11.6 % Eos % (Auto) 1.6 % Baso % (Auto) 0.4 % Neut # (Auto) 5.92 (1.40-6.50) K/uL Lymph # (Auto) 1.20 (1.20-3.40) K/uL [place] # (Auto) 0.97 H (0.11-0.59) K/uL Eos # (Auto) 0.13 (0.00-0.50) K/uL Baso # (Auto) 0.03 (0.00-0.20) K/uL Immature Gran # (Auto) 0.09 (0.01-0.20) K/uL Anisocytosis Present Sodium 139 (136-145) mmol/L Potassium 5.1 (3.5-5.1) mmol/L Chloride 102 (98-107) mmol/L Carbon Dioxide 32 (21-32) mmol/L Anion Gap 5 (3-11) BUN 56 H (6-23) mg/dl Creatinine 1.40 (0.6-1.4) mg/dl Est Cr Clr Drug Dosing 56.6 ml/min Est GFR ( Amer) 55.0 ml/min Est GFR (Non-Af Amer) 47.5 ml/min BUN/Creatinine Ratio 40.0 H (10-20) Glucose 105 H (70-99(Fasting)) mg/dl Calcium 9.5 (8.6-10.3) mg/dl Total Bilirubin 0.6 (0.2-1.0) mg/dl AST 56 H (13-39) U/L ALT 58 H (7-52) U/L Alkaline Phosphatase 74 (34-104) U/L Total Protein 7.1 (6.0-8.3) gm/dl Albumin 4.0 (3.4-5.0) gm/dl Globulin 3.1 (2.5-4.0) gm/dl Albumin/Globulin Ratio 1.3 (0.9-2) Lipase 35 (11-82) U/L Administered Medications Discontinued Medications Sodium Chloride (Nss) 250 mls @ 999 mls/hr IV .Q16M ONE Stop: 10/19/23 09:34 Last Infusion: 10/19/23 09:49 Dose: Infused Documented By: Admin: 10/19/23 09:26 Dose: 999 mls/hr Documented By: CC Morphine Sulfate (Morphine Sulfate 2 Mg/Ml Carp) 2 mg IV NOW STA Stop: 10/19/23 09:20 Last Admin: 10/19/23 09:29 Dose: 2 mg Documented By: CC Morphine Sulfate (Morphine Sulfate 4 Mg/Ml 1 Ml Carp\\Vial) 4 mg IV NOW STA Stop: 10/19/23 11:52 Last Admin: 10/19/23 12:19 Dose: 4 mg Documented By: NRB Ondansetron HCl (Ondansetron Inj 2 Mg/Ml 2 Ml Vial) 4 mg IV NOW STA Stop: 10/19/23 09:20 Last Admin: 10/19/23 09:27 Dose: 4 mg Documented By: CC Imaging Data Radiologist's Impression: Hip/Pelvis X-Ray 10/19/23 08:40 XR hip RT 2V w pelvis CLINICAL HISTORY: Right hip pain. COMPARISON: Pelvis and right hip radiograph February 16, 2023. CT of the abdomen and pelvis June 29, 2023. FINDINGS: The femoral component of the right hip arthroplasty is superolaterally dislocated with respect to the acetabular cup. There are no fractures. Symphysis pubis and sacroiliac joints are intact. IMPRESSION: Dislocated femoral component of the right hip arthroplasty. No fractures. ACT 112: Negative or not required by law. Electronically signed by: Jong Nascimento M.D. 10/19/2023 9:30 AM Hip X-Ray 10/19/23 10:57 XR hip RT min 2V HISTORY: 77 years-old Male d/l reduction right hip dislocation COMPARISON: Radiographs of same day at 9:01 AM TECHNIQUE: 2 views of the right hip FINDINGS: Surgical clips are noted within the scrotum. No acute fracture identified. Arterial calcifications.The femoral component of the right hip arthroplasty is superolaterally dislocated with respect to the acetabular cup. There are no fractures. Symphysis pubis and sacroiliac joints are intact. IMPRESSION: Persistent dislocation of the femoral component of the right hip arthroplasty. ACT 112: Negative or not required by law. The above report was generated using voice recognition software. It may contain grammatical, syntax or spelling errors. Electronically signed by: Geo Clayton M.D. 10/19/2023 11:10 AM Discharge Plan Visit Data Chief Complaint: Hip Pain ED Provider: Jae Wiley Discharge Problem: Dislocation, hip closed Discharge Instructions Interventions: ED Discharge Assessment Last Done: 10/19/23 13:04 Discharge Problem: Dislocation, hip closed Qualifiers: Encounter type: initial encounter Laterality: right Qualified Code(s): S73.004A - Unspecified dislocation of right hip, initial encounter
[2023-10-19 09:09] LABS: Basophils # (auto) 0.03 K/uL (0.00-0.20); Basophils % (auto) 0.4 %; Eosinophils # (auto) 0.13 K/uL (0.00-0.50); Eosinophils % (auto) 1.6 %; Hematocrit (blood only) 45.1 % (42.0-52.0); Hemoglobin 15.1 g/dl (14.0-18.0); Immature Granulocytes # (auto) 0.09 K/uL (0.01-0.20); Immature Granulocytes % (auto) 1.1 %; Lymphocytes % (auto) 14.4 %; Mean Corpuscular Hemoglobin 31.9 pg (25.0-34.0); Mean Corpuscular Hgb Conc 33.5 g/dL (32.0-36.0); Mean Corpuscular Volume 95.3 fL (80.0-100.0); Mean Platelet Volume 9.6 fL (9.4-12.4); Monocytes # (auto) 0.97 K/uL (0.11-0.59); Monocytes % (auto) 11.6 %; Neutrophils # (auto) 5.92 K/uL (1.40-6.50); Neutrophils % (auto) 70.9 %; Platelet Count 179 K/uL (130-400); RDW Coefficient of Variation 21.4 % (11.5-14.5); RDW Standard Deviation 74.1 fL (36.4-46.3); Red Blood Count 4.73 M/uL (4.70-6.10); White Blood Count 8.34 K/ul (4.8-10.8)
--- OUTSIDE RECORDS SUMMARY | 2023-10-19 09:25 | External Medical Summary | Summary of Care ---
Author Name Unknown Organization [facility] Address [address] [place] [address] Phone [phone] Care Team Providers Care Superintendent Refuse Disposal Name Role Phone Danny Soliman DO Primary Care Provider [phone] Reason for Referral * Evaluate & Treat - Unlimited Visits (Within 10 days (routine)) - Pending Review Specialty Diagnoses / Procedures Referred By Tommie t Referred To Contact CARDIAC REHAB / Cardiology Diagnoses S/P primary angioplasty with coronary stent Thomas Betts DO [address] [place] [id number] Referral ID Status Reason Start Date Expiration Date Visits Requested Visits Authorized [id number] Pending Review Specialty Services Required 10/12/[phone] Question Answer Referral Priority Within 10 days (routine) Where should this appointment be scheduled? [facility] Cardiac Rehabilitation Modality Virtual Based Cardiac Rehab Only Encounter Details Date Type Department Care Team (Late st Contact Info) Description 10/12/2023 Orders Only Cardiac Rehab Advanced, Virtual [address] [place] [address] [place] [phone] Thomas Betts DO [address] [facility] [place] [phone] S/P primary angioplasty with coronary stent* Allergies No known active allergiesdocumented as of this encounter (statuses as of 10/12/2023) Medications Medication Sig Dispensed Refills Start Date End Date Status Acetaminophen 500 MG Oral Tablet (Tylenol) Take 2 Tablets by mouth in the morning and 2 Tablets at noon and 2 Tablets before bedtime. 0 07/14/2023 Active Acidophilus 100 MG Oral Capsule Take 1 Capsule by mouth in the morning. 0 07/14/2023 Active Ascorbic Acid 500 MG Oral Tablet Chewable Take 1,000 mg by mouth in the morning. 0 07/14/2023 Active Aspirin 81 MG Oral Tablet Chewable Take 1 Tablet by mouth in the morning. with food.. 0 07/14/2023 Active Cyanocobalamin 500 MCG Oral Tablet Chewable Take 500 mcg by mouth in the morning. 0 07/14/2023 Active Docusate Sodium 100 MG Oral Capsule (Colace) Take 1 Capsule by mouth in the morning. 0 07/14/2023 Active Folic Acid 1 MG Oral Tablet Take 1 Tablet by mouth in the morning. 0 07/14/2023 Active Glucosamine 500 MG Oral Capsule Take 1 Capsule by mouth in the morning. 0 07/14/2023 Active hydrOXYzine HCl 10 MG/5ML Oral Syrup (Atarax) Take 5 mL by mouth at bedtime as needed for Anxiety. 0 07/14/2023 Active Melatonin 5 MG Oral Tablet Disintegrating Take 5 mg by mouth every night at bedtime. 0 07/14/2023 Active Multivitamin Adult Oral Tablet Take 1 Tablet by mouth in the morning. 0 07/14/2023 Active Quitman 3 1000 MG Oral Capsule Take 1 Capsule by mouth in the morning. 0 07/14/2023 Active oxyCODONE HCl 5 MG Oral Tablet (Oxy IR) Take 1 Tablet by mouth every 4 hours as needed for Pain, Severe. 30 Tablet 0 07/14/2023 Active Senna 8.6 MG Oral Capsule Take 1 Capsule by mouth every night at bedtime. 0 07/14/2023 Active Travoprost (DMITRI Free) 0.004 % Ophthalmic Solution (Travatan Z) Instill 1 Drop into both eyes at bedtime. 0 07/14/2023 Active Amiodarone HCl 200 MG Oral Tablet (Cordarone)Indicatio ns:PAF (paroxysmal atrial fibrillation) (HCC) Take 1 Tablet by mouth daily. 30 Tablet 0 08/06/2023 Active DULoxetine HCl 60 MG Oral Capsule Delayed Release Particles (Cymbalta)Indication s:Moderate episode of recurrent major depressive disorder (HCC) Take 1 Capsule by mouth in the morning. Do not cut, crush or chew. 30 Capsule 0 08/06/2023 Active Apixaban 2.5 MG Oral Tablet (Eliquis)Indications :PAF (paroxysmal atrial fibrillation) ([facility]) Take 1 Tablet by mouth in the morning and 1 Tablet before bedtime. 60 Tablet 0 08/06/2023 Active Esomeprazole Magnesium 40 MG Oral Capsule Delayed ReleaseIndications:G astroesophageal reflux disease without esophagitis Take 1 Capsule by mouth daily before breakfast. 30 Capsule 0 08/06/2023 Active Ferrous Sulfate 325 (65 Fe) MG Oral Tablet (Feosol)Indications: Other iron deficiency anemia,Acute blood loss anemia Take 1 Tablet by mouth 2 times a day with morning and evening meals. Take for 1 month then stop 60 Tablet 0 08/06/2023 Active Gabapentin 400 MG Oral Capsule (Neurontin)Indicatio ns:Rheumatoid arthritis involving multiple sites with positive rheumatoid factor ([facility]) Take 1 Capsule by mouth in the morning and 1 Capsule at noon and 1 Capsule before bedtime. 90 Capsule 0 08/06/2023 Active Isosorbide Mononitrate ER 60 MG Oral Tablet Extended Release 24 Hour (Imdur)Indications:C oronary artery disease involving coronary bypass graft of [place] heart without angina pectoris Take 1 Tablet by mouth in the morning. Do not cut, crush or chew. 30 Tablet 0 08/06/2023 Active Furosemide 20 MG Oral Tablet (Lasix)Indications:H eart failure, diastolic, due to HTN (HCC) Take 1 Tablet by mouth in the morning. for fluid accumulation or weight gain. 30 Tablet 0 08/06/2023 Active Metoprolol Tartrate 25 MG Oral Tablet (Lopressor)Indicatio ns:Coronary artery disease involving coronary bypass graft of [place] heart without angina pectoris Take 0.5 Tablets by mouth in the morning and 0.5 Tablets before bedtime. 30 Tablet 0 08/06/2023 Active Mirtazapine 15 MG Oral Tablet (Remeron)Indications :Moderate episode of recurrent major depressive disorder (HCC) Take 1 Tablet by mouth at bedtime. 30 Tablet 0 08/06/2023 Active Nitroglycerin 0.4 MG Sublingual Tablet Sublingual (Nitrostat)Indicatio ns:Coronary artery disease involving coronary bypass graft of [place] heart without angina pectoris Place 1 Tablet under the tongue as needed for Pain, Chest. May repeat 3 times. If chest pain continues, call 911. 25 Tablet 0 08/06/2023 Active Pravastatin Sodium 40 MG Oral Tablet (Pravachol)Indicatio ns:Coronary artery disease involving coronary bypass graft of [place] heart without angina pectoris Take 1 Tablet by mouth every night at bedtime. 30 Tablet 0 08/06/2023 Active Ranolazine ER 500 MG Oral PacketIndications:Co ronary artery disease involving coronary bypass graft of [place] heart without angina pectoris Take 500 mg by mouth in the morning and 500 mg before bedtime. 60 Each 0 08/06/2023 Active traMADol HCl 50 MG Oral Tablet (Ultram)Indications: Rheumatoid arthritis involving multiple sites with positive rheumatoid factor (HCC) Take 1 Tablet by mouth in the morning and 1 Tablet at noon and 1 Tablet before bedtime. 90 Tablet 0 08/06/2023 Active Benzonatate 100 MG Oral Capsule (Tessalon Perles)Indications:R SV bronchitis Take 1 Capsule by mouth 3 times a day as needed for Cough. Do not cut, crush, or chew. 30 Capsule 0 08/06/2023 Active documented as of this encounter (statuses as of 10/12/2023) Active Problems Problem Noted Date Diagnosed Date Absolute anemia 07/23/2023 Rheumatoid arthritis involvi ng multiple sites with positive rheumatoid factor 07/14/2023 PAF (paroxysmal atrial fibrillation) 07/14/2023 Coronary artery disease invo lving coronary bypass graft of [place] heart without angina pectoris 07/14/2023 Infection of prosthetic right knee joint 024 MRSA (methicillin resistant staph aureus) cultur e positive 07/14/2023 Primary open angle glaucoma (POAG) of both eyes, indeterminate stage 07/14/2023 Heart failure, diastolic, due to HTN 07/14/2023 Hypertension goal BP (blood pressure) < 140/90 0 07/14/2023 Gastroesophageal reflux disease without esophagi tis 07/14/2023 Moderate episode of recurrent major depressive d isorder 07/14/2023 documented as of this encounter (statuses as of 10/12/2023) Social History Tobacco Use Types Packs/Day Years Used Date Smoking Tobacco: Never Smokeless Tobacco: Never Sex and Gender Information Value Date Recorded Sex Assigned at Not on file Gender Identity Not on file Sexual Orientation Not on file Job Start Date Occupation Industry Not on file Not on file Not on file documented as of this encounter Progress Notes * Laxmi Alvarez [facility] - 10/12/2023 9:11 PM EDT Images from the original note were not included. 10/12/2023 Good Afternoon, We would like to let you know that your patient has chosen to participate in [facility]'s Virtual Cardiac Rehab program in partnership with [employer]. [employer] is a specialized company that specializes in providing cardiac rehab service. Our program is supervised by [facility] clinicians and includes all the marcello of our in-person rehab programs, such as exercise training and heart healthy education. During the 12-week program, patients meet with an field machinist over video to work on their recovery 2-3 times per week to help support them and strengthen their heart. To begin the process of enrollment, Dr. Thomas Betts, [facility] Park Manager has placed an outpatient cardiac rehabilitation referral for your patient to participate in our virtual program with [employer]. If you have any questions or concerns about this program, please contact [facility] [id number] Thank you, Cardiac Rehabilitation Staff [facility] [address] [place] [address] [email or web address] documented in this encounter Plan of Treatment Scheduled Referrals Name Type Priority Associated Diagnoses Orde r Schedule CARDIAC REHAB REFERRAL OP Referral Within 10 days (routine) S/P primary angioplasty with coronary stent Ordered: 10/12/2023 Health Maintenance Due Date Last Done Comments Albumin/Creatinine Ratio 12/08/1963 Hepatitis C Screening 12[birth year]08/1963 DTaP,Tdap,and Td Vaccines (1 - Tdap) 12/08/1962 Influenza Vaccine (FLU shot) (Season Ended) 2024 03/30/2019, 03/04/2018 GFR 08/03/2024 08/03/2023, 07/10, 07/27/2023, Additional history exists Zoster Vaccines Completed 04/13/2019, 02/01/2019 Pneumococcal Vaccine: 65+ Years Completed 09/05/2022, 07/23/2015, 04/20/2013 COVID-19 Vaccine Completed 05/04/2023, , 04/09/2021, Additional history exists GARDASIL-HPV IMMUNIZATION SERIES Aged Out No longer eligible based on patient's age to complete this topic Hepatitis B Aged Out No longer eligi ble based on patient's age to complete this topic MENINGOCOCCAL (MENACTRA/MENVEO) Aged Out No longer eligible based on patient's age to complete this topic documented as of this encounter Medical Devices Not on filedocumented as of this encounter Visit Diagnoses Diagnosis S/P primary angioplasty with coronary stent- Primary Postsurgical percutaneous transluminal coronary angioplasty status documented in this encounter Care Teams Superintendent Refuse Disposal Relationship Specialty Start Date End Date Danny Soliman DO [address] [place] [address] PCP - General Family Medicine 01/16/23 documented as of this encounter
[2023-10-19] MEDS: SODIUM CHLORIDE 0.9% 250 ML IV ONE (09:26)
[2023-10-19] MEDS: ONDANSETRON INJ 2 MG/ML 2 ML VIAL IV STA (09:27)
[2023-10-19] MEDS: MoRPHine SULFATE 2 MG/ML CARP IV STA (09:29)
[2023-10-19 09:30] LABS: Albumin Globulin Ratio 1.3 (0.9-2); Bilirubin,Total 0.6 mg/dl (0.2-1.0); Calcium 9.5 mg/dl (8.6-10.3); Creatinine Clr Calc Pharmacy 56.6 ml/min; Est GFR (Non-African American) 47.5 ml/min; Globulin 3.1 gm/dl (2.5-4.0); Potassium 5.1 mmol/L (3.5-5.1); Total Protein 7.1 gm/dl (6.0-8.3)
--- NOTE | 2023-10-19 09:31 | XRay Report ---
XR hip RT 2V w pelvis CLINICAL HISTORY: Right hip pain. COMPARISON: Pelvis and right hip radiograph February 16, 2023. CT of the abdomen and pelvis June 29, 2023. FINDINGS: The femoral component of the right hip arthroplasty is superolaterally dislocated with res pect to the acetabular cup. There are no fractures. Symphysis pubis and sacroiliac joints are intact. IMPRESSION: Dislocated femoral component of the right hip arthroplasty. No fractures. ACT 112: Negative or not required by law. Electronically signed by: Jong Nascimento M.D. 10/19/2023 9:30 AM
[2023-10-19 09:34] LABS: Anisocytosis Present
[2023-10-19] MEDS ORDERED: PROPOFOL IV EMULSION 10 MG/ML 20 ML VIAL IV ONE ×2 (10:19→13:07)
[2023-10-19] MEDS ORDERED: fentaNYL citrate PF 100 MCG/2 ML VIAL ONE ×2 (10:20→13:02)
[2023-10-19] MEDS ORDERED: MIDAZOLAM HCL 1 MG/ML 2ML VIAL ONE ×2 (10:20→13:02)
[2023-10-19] MEDS ORDERED: KETAMINE HCL INJ 50 MG/ML 10 ML VIAL ONE (10:24)
--- NOTE | 2023-10-19 10:38 | Anesthesiology Consultation ---
Date of Service October 19, 2023 Assessment & Plan (1) Encounter for pre-operative examination: Chart Review Chart Review: Acceptable Risk for Surgery History Height/Weight Height: 6 ft Weight: 117.4 kg Allergies Allergy/AdvReac Type Severity Reaction Status Date / Time cat dander Allergy Severe Swelling Verified 10/16/23 09:24 of Lip/Tongue/Throat No Known Drug Allergies Allergy Verified 10/16/23 09:24 Medications Home Medications Medication Instructions Recorded Confirmed Last Taken sennosides 8.6 mg capsule (senna) 8.6 mg PO AMHS 06/19/22 10/19/23 06/29/23 09:00 ascorbic acid (vitamin C) 500 mg 1,000 mg PO QAM 08/07/22 10/19/23 06/29/23 capsule aspirin 81 mg tablet,delayed 81 mg PO QAM 08/07/22 10/19/23 06/29/23 release (Adult Low Dose Aspirin) coenzyme Q10 100 mg capsule 100 mg PO QAM 08/07/22 10/19/23 06/29/23 lactobacillus combination no.9 4 6,000 mmu cells PO QAM PRN use 08/07/22 10/19/23 08/13/22 billion cell capsule (Adult 50 with antibiotics Plus Probiotic) ztukrglx-iahmvmi-ygvc-lutein tablet 1 tab PO QAM 08/07/22 10/19/23 06/29/23 cholecalciferol (vitamin D3) 250 250 mcg PO DAILY 90 days #90 tabs 09/19/22 10/19/23 06/29/23 mcg (10,000 unit) tablet cyanocobalamin (vitamin B-12) 500 1,000 mcg (2 x 500 mcg) PO QAM #30 01/18/23 10/19/23 06/29/23 mcg tablet tabs folic acid 1 mg tablet 1 mg PO QAM #30 tabs 01/18/23 10/19/23 06/29/23 hydroxyzine HCl 10 mg tablet 10 mg PO HS PRN anxiety or 01/18/23 10/19/23 Unknown insomnia #14 tabs duloxetine 60 mg capsule,delayed 60 mg PO QAM 02/05/23 10/19/23 06/29/23 release esomeprazole magnesium 40 mg 40 mg PO HS 02/05/23 10/19/23 06/28/23 capsule,delayed release (Nexium) thiamine HCl (vitamin B1) 100 mg 100 mg PO QAM 02/05/23 10/19/23 06/29/23 tablet melatonin 5 mg capsule 5 mg PO HS PRN Sleep 02/16/23 10/19/23 Unknown diclofenac sodium 1 % topical gel 2 g topical QID #200 grams 04/24/23 10/19/23 06/29/23 09:00 (Voltaren Arthritis Pain) amiodarone 200 mg tablet 200 mg PO DAILY 06/29/23 10/19/23 06/29/23 ranolazine 500 mg tablet,extended See Rx Instructions .Route 08/13/23 10/19/23 Unknown release,12 hr .COMPLEX #60 tabs acetaminophen 500 mg capsule 500 mg PO Q6H PRN Pain 08/21/23 10/19/23 Unknown latanoprost 0.005 % eye drops 1 drp ophthalmic (eye) QPM 08/21/23 10/19/23 Unknown apixaban 2.5 mg tablet (Eliquis) 2.5 mg PO BID #90 tabs 08/24/23 10/19/23 Unknown gabapentin 400 mg capsule 400 mg PO TID 30 days #90 caps 09/03/23 10/19/23 Unknown olmesartan 5 mg tablet 5 mg PO DAILY 90 days #90 tabs 09/03/23 10/19/23 Unknown pravastatin 40 mg tablet 40 mg PO DAILY #90 tabs 09/03/23 10/19/23 Unknown doxycycline monohydrate 100 mg 100 mg PO BID 09/18/23 10/19/23 Unknown capsule oxycodone 5 mg tablet 5 mg PO BID PRN Pain 09/23/23 10/19/23 Unknown upadacitinib 15 mg tablet,extended 15 mg PO DAILY 09/23/23 10/19/23 Unknown release 24 hr (Rinvoq) metoprolol tartrate 25 mg tablet 12.5 mg (1/2 x 25 mg) PO BID 30 09/24/23 10/19/23 Unknown days #30 tabs isosorbide mononitrate 60 mg 60 mg PO QAM #90 tabs 10/08/23 10/19/23 Unknown tablet,extended release 24 hr mirtazapine 30 mg tablet 30 mg PO DAILY #90 tabs 10/13/23 10/19/23 Unknown NPO Last Intake of Fluids Comment: Before midnight Last Intake of Solids Comment: Before midnight Past Medical History Medical History History of immunosuppressive therapy Pain of right hip Prophylactic antibiotic History of sepsis Injury of left rotator cuff Left shoulder pain Abdominal wall abscess Incisional hernia Lumbar radiculopathy Sepsis 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 knee, occurrred during atrial fibrillation episode. "when he woke up, he couldn't walk." Atrial fibrillation episode occurred in 03/2022, taken to [facility] in [place], admitted to ICU for 1-2 weeks (was not intubated, but wasn't "awake either"), then to cardiac unit, then to rehab at [facility]; f/u dr. guerra in [place]>will be starting to see a director of guidance in public schools at [facility] 2nd week of 08/2022 Myocardial Infarction "a silent one, 2019" Sleep apnea no device GERD (gastroesophageal reflux disease) Anxiety and depression HFrEF (heart failure with reduced ejection fraction) EF 40% Mar 2022, improved 55-60% August 2022 Past Family History Family History Grandmother (Maternal) Diabetes Daughter Diabetes Father Suicide Hypertension Denies family history of Ovarian cancer Prostate cancer Myocardial infarction Breast cancer Lung cancer Colorectal cancer Stroke Past Surgical History Surgical History Hx of Achilles tendon repair rt. Hx of knee surgery rt. patellar tendon repair Hx of rotator cuff surgery bilateral Hx of total knee replacement lt. Hx of total hip arthroplasty rt. History of colostomy reversal History of bowel resection for diverticulitis; w/colostomy placement for 3-4 months Hx of hernia repair near former colostomy site History of esophagogastroduodenoscopy (EGD) Hx of colonoscopy Last Colonoscopy 08/14/22, repeat 3 years in 2025 Hx of bilateral cataract extraction History of heart artery stent ~3 years ago, x2 stents, done in [place]; f/u dr guerra [place]>will be seeing new cardio at [place] 2nd week of August 2022. History of cardiac cath ~3 years ago, SOB and "felt like throat was constricting", had "silent heart attack", x2 stents, done in [place] Past Anesthesia History No Hx of Anesthesia Complications History of PONV No Hx of PONV and No Hx of Motion Sickness Social History Smoking Status: Never smoker Do You Dip or Chew Tobacco: No Hx Alcohol Use: Yes Alcohol type: wine alcohol intake frequency: 0-2 drinks per day Hx Substance Use: No substance use type: does not use Physical Exam Vital Signs Last Vital Signs Temp 36.9 C 10/19/23 08:33 Pulse 61 10/19/23 10:06 Resp 18 10/19/23 10:06 BP 160/94 H 10/19/23 10:06 Pulse Ox 96 10/19/23 10:06 O2 Del Method Room Air 10/19/23 10:06 Testing Laboratory Results 10/19/23 08:47 10/19/23 08:47 Echocardiogram Date: 07/06/23 EF: 50-55% LV Function: normal Valvular Disease: + AI (mild) above is a PAMELA, TTEfew days early showed EF 65%
--- NOTE | 2023-10-19 11:12 | XRay Report ---
XR hip RT min 2V HISTORY: 77 years-old Male d/l reduction right hip dislocation COMPARISON: Radiographs of same day at 9:01 AM TECHNIQUE: 2 views of the right hip FINDINGS: Surgical clips are noted within the scrotum. No acute fracture identified. Arterial calcifications.Th e femoral component of the right hip arthroplasty is superolaterally dislocated with respect to the a cetabular cup. There are no fractures. Symphysis pubis and sacroiliac joints are intact. IMPRESSION: Persistent dislocation of the femoral component of the right hip arthroplasty. ACT 112: Negative or not required by law. The above report was generated using voice recognition software. It may contain grammatical, syntax o r spelling errors. Electronically signed by: Geo Clayton M.D. 10/19/2023 11:10 AM
[2023-10-19] MEDS: MoRPHine SULFATE 4 MG/ML 1 ML CARP\\VIAL IV STA (12:19)
--- NOTE | 2023-10-19 12:23 | Anesthesiology Progress Note ---
Date of Service October 19, 2023 Anesthesia Post Procedure Vital Signs Vital Signs: Temp Pulse Pulse Resp BP BP Pulse Ox 10/19/23 11:40 68 18 185/100 H 96 10/19/23 11:30 68 13 97 10/19/23 11:30 172/115 H 10/19/23 11:28 182/113 H 10/19/23 11:28 69 12 96 10/19/23 11:25 69 12 202/122 H 96 10/19/23 11:25 69 12 100 10/19/23 11:22 201/111 H 10/19/23 11:22 67 12 93 10/19/23 11:21 66 16 93 10/19/23 11:21 180/110 H 10/19/23 11:20 67 15 94 10/19/23 11:18 69 19 95 10/19/23 11:18 176/135 H 10/19/23 11:15 176/107 H 10/19/23 11:15 71 12 133/96 91 10/19/23 11:13 68 10 L 98 10/19/23 11:13 133/96 10/19/23 11:10 70 10 L 100 10/19/23 11:10 173/101 H 10/19/23 11:10 173/101 H 10/19/23 11:09 183/109 H 10/19/23 11:09 70 6 L 100 10/19/23 11:05 70 15 182/115 H 10/19/23 11:05 71 16 99 10/19/23 11:02 180/108 H 10/19/23 11:02 72 7 L 97 10/19/23 11:00 162/109 H 10/19/23 11:00 69 9 L 98 10/19/23 10:57 65 8 L 98 10/19/23 10:57 181/109 H 10/19/23 10:55 68 8 L 164/105 H 10/19/23 10:55 68 97 10/19/23 10:52 68 97 10/19/23 10:52 143/92 H 10/19/23 10:50 65 5 L 98 10/19/23 10:45 184/105 H 10/19/23 10:45 59 L 17 100 10/19/23 10:44 59 L 13 100 10/19/23 10:44 166/102 H 10/19/23 10:40 185/103 H 10/19/23 10:40 59 L 11 L 93 10/19/23 10:40 61 6 L 184/105 H 99 10/19/23 10:39 138/90 10/19/23 10:39 61 11 L 97 10/19/23 10:35 62 17 96 10/19/23 10:30 61 11 L 95 10/19/23 10:25 58 L 16 95 10/19/23 10:20 64 18 96 10/19/23 10:15 62 14 95 10/19/23 10:10 58 L 18 95 10/19/23 10:06 61 18 160/94 H 96 10/19/23 10:05 61 15 95 10/19/23 08:50 57 L 10/19/23 08:33 36.9 C 63 18 179/94 H 96 O2 Del Method O2 Flow Rate 10/19/23 11:40 Room Air 10/19/23 11:30 10/19/23 11:30 10/19/23 11:28 10/19/23 11:28 10/19/23 11:25 10/19/23 11:25 10/19/23 11:22 10/19/23 11:22 10/19/23 11:21 10/19/23 11:21 10/19/23 11:20 0 10/19/23 11:18 0 10/19/23 11:18 10/19/23 11:15 10/19/23 11:15 0 10/19/23 11:13 10/19/23 11:13 10/19/23 11:10 9 10/19/23 11:10 10/19/23 11:10 10/19/23 11:09 10/19/23 11:09 10/19/23 11:05 10/19/23 11:05 10/19/23 11:02 10/19/23 11:02 9 10/19/23 11:00 10/19/23 11:00 9 10/19/23 10:57 10/19/23 10:57 10/19/23 10:55 9 10/19/23 10:55 10/19/23 10:52 10/19/23 10:52 10/19/23 10:50 9 10/19/23 10:45 9 10/19/23 10:45 9 10/19/23 10:44 9 10/19/23 10:44 10/19/23 10:40 10/19/23 10:40 10/19/23 10:40 Oxymask 8 10/19/23 10:39 10/19/23 10:39 10/19/23 10:35 10/19/23 10:30 10/19/23 10:25 10/19/23 10:20 10/19/23 10:15 10/19/23 10:10 10/19/23 10:06 Room Air 10/19/23 10:05 10/19/23 08:50 10/19/23 08:33 Room Air Pain Intensity Hip: Pain Intensity: 9 Transfer of Care Handoff Completed per policy Notes Mental Status: alert / awake / arousable Patient Amnestic to Procedure: Yes Nausea / Vomiting: adequately controlled Pain: adequately controlled Airway Patency, RR, SpO2: stable & adequate BP & HR: stable & adequate Hydration State: stable & adequate Anesthetic Complications: no major complications apparent
[2023-10-19] MEDS ORDERED: LIDOCAINE 2% 2 ML VIAL/AMP(20MG/ML) INFIL ONE (13:07)
[2023-10-19] MEDS ORDERED: SUCCINYLCHOLINE CHLORIDE 20 MG/ML 10 ML VIAL IV ONE (13:07)
[2023-10-19] MEDS ORDERED: ONDANSETRON INJ 2 MG/ML 2 ML VIAL ONE (13:10)
[2023-10-19] MEDS ORDERED: DEXAMETHASONE SOD INJ 4 MG/ML VIAL ONE (13:10)
--- NOTE | 2023-10-19 13:20 | History & Physical Report ---
Date of Service October 19, 2023 Assessment & Plan (1) Dislocation, hip, posterior: Plan: close reduction examination under general anesthesia most likely admission for monitoring for at least 24 hours History of Present Illness Chief Complaint: right hip pain/dislocation Primary Care Provider: Danny Soliman DO patient is a chronically ill 77-year-old male who has a history of right total hip replacement done twice he believes the last time through an anterior approach. He did suffer a dislocation about a year ago when he fell out of a wheelchair. 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 Attempt was that made for close reduction in the emergency room which was unsuccessful and he will now be taken to the operating room for reduction under general anesthesia Allergies Allergy/AdvReac Type Severity Reaction Status Date / Time cat dander Allergy Severe Swelling Verified 10/16/23 09:24 of Lip/Tongue/Throat No Known Drug Allergies Allergy Verified 10/16/23 09:24 Home Medications Medication Instructions Recorded Confirmed Type sennosides 8.6 mg capsule (senna) 8.6 mg PO AMHS 06/19/22 10/19/23 History ascorbic acid (vitamin C) 500 mg 1,000 mg PO QAM 08/07/22 10/19/23 History capsule aspirin 81 mg tablet,delayed 81 mg PO QAM 08/07/22 10/19/23 History release (Adult Low Dose Aspirin) coenzyme Q10 100 mg capsule 100 mg PO QAM 08/07/22 10/19/23 History lactobacillus combination no.9 4 6,000 mmu cells PO QAM PRN use 08/07/22 10/19/23 History billion cell capsule (Adult 50 with antibiotics Plus Probiotic) opcyspud-injbuae-esxs-lutein tablet 1 tab PO QAM 08/07/22 10/19/23 History cholecalciferol (vitamin D3) 250 250 mcg PO DAILY 90 days #90 tabs 09/19/22 10/19/23 Rx mcg (10,000 unit) tablet cyanocobalamin (vitamin B-12) 500 1,000 mcg (2 x 500 mcg) PO QAM #30 01/18/23 10/19/23 Rx mcg tablet tabs folic acid 1 mg tablet 1 mg PO QAM #30 tabs 01/18/23 10/19/23 Rx hydroxyzine HCl 10 mg tablet 10 mg PO HS PRN anxiety or 01/18/23 10/19/23 Rx insomnia #14 tabs duloxetine 60 mg capsule,delayed 60 mg PO QAM 02/05/23 10/19/23 History release esomeprazole magnesium 40 mg 40 mg PO HS 02/05/23 10/19/23 History capsule,delayed release (Nexium) thiamine HCl (vitamin B1) 100 mg 100 mg PO QAM 02/05/23 10/19/23 History tablet melatonin 5 mg capsule 5 mg PO HS PRN Sleep 02/16/23 10/19/23 History diclofenac sodium 1 % topical gel 2 g topical QID #200 grams 04/24/23 10/19/23 Rx (Voltaren Arthritis Pain) amiodarone 200 mg tablet 200 mg PO DAILY 06/29/23 10/19/23 History ranolazine 500 mg tablet,extended See Rx Instructions .Route 08/13/23 10/19/23 Rx release,12 hr .COMPLEX #60 tabs acetaminophen 500 mg capsule 500 mg PO Q6H PRN Pain 08/21/23 10/19/23 History latanoprost 0.005 % eye drops 1 drp ophthalmic (eye) QPM 08/21/23 10/19/23 History apixaban 2.5 mg tablet (Eliquis) 2.5 mg PO BID #90 tabs 08/24/23 10/19/23 Rx gabapentin 400 mg capsule 400 mg PO TID 30 days #90 caps 09/03/23 10/19/23 Rx olmesartan 5 mg tablet 5 mg PO DAILY 90 days #90 tabs 09/03/23 10/19/23 Rx pravastatin 40 mg tablet 40 mg PO DAILY #90 tabs 09/03/23 10/19/23 Rx doxycycline monohydrate 100 mg 100 mg PO BID 09/18/23 10/19/23 History capsule oxycodone 5 mg tablet 5 mg PO BID PRN Pain 09/23/23 10/19/23 History upadacitinib 15 mg tablet,extended 15 mg PO DAILY 09/23/23 10/19/23 History release 24 hr (Rinvoq) metoprolol tartrate 25 mg tablet 12.5 mg (2 x 25 mg) PO BID 30 09/24/23 10/19/23 Rx days #30 tabs isosorbide mononitrate 60 mg 60 mg PO QAM #90 tabs 10/08/23 10/19/23 Rx tablet,extended release 24 hr mirtazapine 30 mg tablet 30 mg PO DAILY #90 tabs 10/13/23 10/19/23 Rx Past Med/Surg History Medical History History of immunosuppressive therapy Pain of right hip Prophylactic antibiotic History of sepsis Injury of left rotator cuff Left shoulder pain Abdominal wall abscess Incisional hernia Lumbar radiculopathy Sepsis 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 knee, occurrred during atrial fibrillation episode. "when he woke up, he couldn't walk." Atrial fibrillation episode occurred in 03/2022, taken to [facility] in [place], admitted to ICU for 1-2 weeks (was not intubated, but wasn't "awake either"), then to cardiac unit, then to rehab at [facility]; f/u dr. guerra in [place]>will be starting to see a appliance worker at [facility] 2nd week of 08/2022 Myocardial Infarction "a silent one, 2019" Sleep apnea no device GERD (gastroesophageal reflux disease) Anxiety and depression HFrEF (heart failure with reduced ejection fraction) EF 40% Mar 2022, improved 55-60% August 2022 Surgical History Hx of Achilles tendon repair rt. Hx of knee surgery rt. patellar tendon repair Hx of rotator cuff surgery bilateral Hx of total knee replacement lt. Hx of total hip arthroplasty rt. History of colostomy reversal History of bowel resection for diverticulitis; w/colostomy placement for 3-4 months Hx of hernia repair near former colostomy site History of esophagogastroduodenoscopy (EGD) Hx of colonoscopy Last Colonoscopy 08/14/22, repeat 3 years in 2025 Hx of bilateral cataract extraction History of heart artery stent ~3 years ago, x2 stents, done in [place]; f/u dr guerra, [place]>will be seeing new cardio at [place] week of August 2022. History of cardiac cath ~3 years ago, SOB and "felt like throat was constricting", had "silent heart attack", x2 stents, done in [place] Family History Grandmother (Maternal) Diabetes Daughter Diabetes Father Suicide Hypertension Denies family history of Ovarian cancer Prostate cancer Myocardial infarction Breast cancer Lung cancer Colorectal cancer Stroke Social History Smoking Status: Never smoker Second Hand Exposure: No; Do You Dip or Chew Tobacco: No; Hx Alcohol Use: Yes Alcohol type: wine Alcohol Intake Frequency: 4 or More x per/Week Hx Substance Use: No Preferred Language: Puerto Rican Communication Ability: Effective Visual Impairment: Limited Hearing Ability: Normal Premium Service Representative Required: No Beliefs That Will Affect Care: None marital status: Single Current Living Situation: Personal Care Facility Current Living Situation Comment: Independent living current occupational status: retired How many Children do You have: 2 Feels Safe at Home: Yes Childhood Exposure to Second-Hand Smoke: Yes caffeine: Yes Dental Care, Regularly: Yes Physical Activity Frequency: Does not Exercise Seatbelt Use: always Sunscreen Use: Yes Assistive Devices: Walker and Wheelchair Review of Systems Review of Systems: hip pain Physical Exam Physical Exam: General: Elderly appearing man who appears to be his stated age. HEENT: NCAT EOMI Neck: Supple Heart: Regular rate and rhythm Lungs: Breath sounds clear and present Abdomen: Obese soft bowel sounds positive Extremities the right hip is flexed and internally rotated. There is pain on any attempted motion. There is a bandage over the right knee consistent with recent surgery. There is severe chronic skin changes of the lower extremity. Neurological and vascular: Intact Results & Data Results & Data Vital Signs (Past 12 Hours) Vital Signs Temp Pulse Pulse Pulse Resp BP BP 10/19/23 13:08 36.7 C 69 18 156/96 H 10/19/23 13:04 10/19/23 12:25 66 16 180/108 H 10/19/23 11:40 68 18 185/100 H 10/19/23 11:30 68 13 10/19/23 11:30 172/115 H 10/19/23 11:28 182/113 H 10/19/23 11:28 69 12 10/19/23 11:25 69 12 202/122 H 10/19/23 11:25 69 12 10/19/23 11:22 201/111 H 10/19/23 11:22 67 12 10/19/23 11:21 66 16 10/19/23 11:21 180/110 H 10/19/23 11:20 67 15 10/19/23 11:18 69 19 10/19/23 11:18 176/135 H 10/19/23 11:15 176/107 H 10/19/23 11:15 71 12 133/96 10/19/23 11:13 68 10 L 10/19/23 11:13 133/96 10/19/23 11:10 70 10 L 10/19/23 11:10 173/101 H 10/19/23 11:10 173/101 H 10/19/23 11:09 183/109 H 10/19/23 11:09 70 6 L 10/19/23 11:05 70 15 182/115 H 10/19/23 11:05 71 16 10/19/23 11:02 180/108 H 10/19/23 11:02 72 7 L 10/19/23 11:00 162/109 H 10/19/23 11:00 69 9 L 10/19/23 10:57 65 8 L 10/19/23 10:57 181/109 H 10/19/23 10:55 68 8 L 164/105 H 10/19/23 10:55 68 10/19/23 10:52 68 10/19/23 10:52 143/92 H 10/19/23 10:50 65 5 L 10/19/23 10:45 184/105 H 10/19/23 10:45 59 L 17 10/19/23 10:44 59 L 13 10/19/23 10:44 166/102 H 10/19/23 10:40 185/103 H 10/19/23 10:40 59 L 11 L 10/19/23 10:40 61 6 L 184/105 H 10/19/23 10:39 138/90 10/19/23 10:39 61 11 L 10/19/23 10:35 62 17 05/13/24 10:30 61 11 L 10/19/23 10:25 58 L 16 10/19/23 10:20 64 18 10/19/23 10:15 62 14 10/19/23 10:10 58 L 18 10/19/23 10:06 61 18 160/94 H 10/19/23 10:05 61 15 10/19/23 08:50 57 L 10/19/23 08:33 36.9 C 63 18 179/94 H Pulse Ox O2 Del Method O2 Flow Rate 10/19/23 13:08 93 Room Air 10/19/23 13:04 Room Air 10/19/23 12:25 92 Room Air 10/19/23 11:40 96 Room Air 10/19/23 11:30 97 10/19/23 11:30 10/19/23 11:28 10/19/23 11:28 96 10/19/23 11:25 96 10/19/23 11:25 100 10/19/23 11:22 10/19/23 11:22 93 10/19/23 11:21 93 10/19/23 11:21 10/19/23 11:20 94 0 10/19/23 11:18 95 0 10/19/23 11:18 10/19/23 11:15 10/19/23 11:15 91 0 10/19/23 11:13 98 10/19/23 11:13 10/19/23 11:10 100 9 10/19/23 11:10 10/19/23 11:10 10/19/23 11:09 10/19/23 11:09 100 10/19/23 11:05 10/19/23 11:05 99 10/19/23 11:02 10/19/23 11:02 97 9 10/19/23 11:00 10/19/23 11:00 98 9 10/19/23 10:57 98 10/19/23 10:57 10/19/23 10:55 9 10/19/23 10:55 97 10/19/23 10:52 97 10/19/23 10:52 10/19/23 10:50 98 9 10/19/23 10:45 9 10/19/23 10:45 100 9 10/19/23 10:44 100 9 10/19/23 10:44 10/19/23 10:40 10/19/23 10:40 93 10/19/23 10:40 99 Oxymask 8 10/19/23 10:39 10/19/23 10:39 97 10/19/23 10:35 96 10/19/23 10:30 95 10/19/23 10:25 95 10/19/23 10:20 96 10/19/23 10:15 95 10/19/23 10:10 95 10/19/23 10:06 96 Room Air 10/19/23 10:05 95 10/19/23 08:50 10/19/23 08:33 96 Room Air
--- NOTE | 2023-10-19 13:21 | History & Physical Bridge Note ---
Date of Service October 19, 2023 History & Physical Bridge Note I have examined the patient, reviewed the History & Physical and in the interval since the performance of the History & Physical I have noted the following changes of clinical significance: no changes noted
[2023-10-19] MEDS ORDERED: ROCURONIUM BROMIDE 10 MG/ML 5 ML VIAL IV ONE (13:23)
[2023-10-19] MEDS ORDERED: ONDANSETRON INJ 2 MG/ML 2 ML VIAL IV PRN ×2 (13:25→15:54)
[2023-10-19] MEDS ORDERED: fentaNYL citrate PF 100 MCG/2 ML VIAL IV PRN (13:25)
[2023-10-19] MEDS ORDERED: HYDROmorphone INJ 1 MG/ML SYRINGE IV PRN (13:25)
[2023-10-19] MEDS ORDERED: ATROPINE SULFATE 0.1 MG/ML 10ML SYR IV PRN (13:25)
[2023-10-19] MEDS ORDERED: ePHEDrine sulfate 50 MG/ML AMP IV PRN (13:25)
--- NOTE | 2023-10-19 13:25 | Anesthesiology Consultation ---
Date of Service October 19, 2023 Assessment & Plan (1) Encounter for pre-operative examination: Chart Review Chart Review: Acceptable Risk for Surgery and Patient NOT seen in Pre Admission Testing Consults Requested none History Surgery Operation Date: 10/19/23 08:30 Proposed Procedures p Right Hip Closed Reduction - Reji Conklin MD Height/Weight Height: 6 ft Weight: 117.4 kg Allergies Allergy/AdvReac Type Severity Reaction Status Date / Time cat dander Allergy Severe Swelling Verified 10/19/23 13:23 of Lip/Tongue/Throat No Known Drug Allergies Allergy Verified 10/19/23 13:23 Medications Home Medications Medication Instructions Recorded Confirmed Last Taken sennosides 8.6 mg capsule (senna) 8.6 mg PO AMHS 06/19/22 10/19/23 06/29/23 09:00 ascorbic acid (vitamin C) 500 mg 1,000 mg PO QAM 08/07/22 10/19/23 06/29/23 capsule aspirin 81 mg tablet,delayed 81 mg PO QAM 08/07/22 10/19/23 06/29/23 release (Adult Low Dose Aspirin) coenzyme Q10 100 mg capsule 100 mg PO QAM 08/07/22 10/19/23 06/29/23 lactobacillus combination no.9 4 6,000 mmu cells PO QAM PRN use 08/07/22 10/19/23 08/13/22 billion cell capsule (Adult 50 with antibiotics Plus Probiotic) xellldha-xqbtlpd-hfce-lutein tablet 1 tab PO QAM 08/07/22 10/19/23 06/29/23 cholecalciferol (vitamin D3) 250 250 mcg PO DAILY 90 days #90 tabs 09/19/22 10/19/23 06/29/23 mcg (10,000 unit) tablet cyanocobalamin (vitamin B-12) 500 1,000 mcg (2 x 500 mcg) PO QAM #30 01/18/23 10/19/23 06/29/23 mcg tablet tabs folic acid 1 mg tablet 1 mg PO QAM #30 tabs 01/18/23 10/19/23 06/29/23 hydroxyzine HCl 10 mg tablet 10 mg PO HS PRN anxiety or 01/18/23 10/19/23 Unknown insomnia #14 tabs duloxetine 60 mg capsule,delayed 60 mg PO QAM 02/05/23 10/19/23 06/29/23 release esomeprazole magnesium 40 mg 40 mg PO HS 02/05/23 10/19/23 06/28/23 capsule,delayed release (Nexium) thiamine HCl (vitamin B1) 100 mg 100 mg PO QAM 02/05/23 10/19/23 06/29/23 tablet melatonin 5 mg capsule 5 mg PO HS PRN Sleep 02/16/23 10/19/23 Unknown diclofenac sodium 1 % topical gel 2 g topical QID #200 grams 04/24/23 10/19/23 06/29/23 09:00 (Voltaren Arthritis Pain) amiodarone 200 mg tablet 200 mg PO DAILY 06/29/23 10/19/23 06/29/23 ranolazine 500 mg tablet,extended See Rx Instructions .Route 08/13/23 10/19/23 Unknown release,12 hr .COMPLEX #60 tabs acetaminophen 500 mg capsule 500 mg PO Q6H PRN Pain 08/21/23 10/19/23 Unknown latanoprost 0.005 % eye drops 1 drp ophthalmic (eye) QPM 08/21/23 10/19/23 Unknown apixaban 2.5 mg tablet (Eliquis) 2.5 mg PO BID #90 tabs 08/24/23 10/19/23 Unknown gabapentin 400 mg capsule 400 mg PO TID 30 days #90 caps 09/03/23 10/19/23 Unknown olmesartan 5 mg tablet 5 mg PO DAILY 90 days #90 tabs 09/03/23 10/19/23 Unknown pravastatin 40 mg tablet 40 mg PO DAILY #90 tabs 09/03/23 10/19/23 Unknown doxycycline monohydrate 100 mg 100 mg PO BID 09/18/23 10/19/23 Unknown capsule oxycodone 5 mg tablet 5 mg PO BID PRN Pain 09/23/23 10/19/23 Unknown upadacitinib 15 mg tablet,extended 15 mg PO DAILY 09/23/23 10/19/23 Unknown release 24 hr (Rinvoq) metoprolol tartrate 25 mg tablet 12.5 mg (1/2 x 25 mg) PO BID 30 09/24/23 10/19/23 Unknown days #30 tabs isosorbide mononitrate 60 mg 60 mg PO QAM #90 tabs 10/08/23 10/19/23 Unknown tablet,extended release 24 hr mirtazapine 30 mg tablet 30 mg PO DAILY #90 tabs 10/13/23 10/19/23 Unknown NPO Date Last Intake of Fluids: 10/18/23 Time Last Intake of Fluids: 22:00 Last Intake of Fluids Comment: Before midnight Date Last Intake of Solids: 10/18/23 Time Last Intake of Solids: 22:00 Last Intake of Solids Comment: Before midnight Past Medical History Medical History History of immunosuppressive therapy Pain of right hip Prophylactic antibiotic History of sepsis Injury of left rotator cuff Left shoulder pain Abdominal wall abscess Incisional hernia Lumbar radiculopathy Sepsis 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 knee, occurrred during atrial fibrillation episode. "when he woke up, he couldn't walk." Atrial fibrillation episode occurred in 03/2022, taken to [facility] in [place], admitted to ICU for 1-2 weeks (was not intubated, but wasn't "awake either"), then to cardiac unit, then to rehab at [facility]; f/u dr. guerra in [place]>will be starting to see a systems development consultant at [facility] 2nd week of 08/2022 Myocardial Infarction "a silent one, 2019" Sleep apnea no device GERD (gastroesophageal reflux disease) Anxiety and depression HFrEF (heart failure with reduced ejection fraction) EF 40% Mar 2022, improved 55-60% August 2022 Exercise / Class Metabolic Activity II 4-5 Yardwork/Stairs/Walk up hill Past Family History Family History Grandmother (Maternal) Diabetes Daughter Diabetes Father Suicide Hypertension Denies family history of Ovarian cancer Prostate cancer Myocardial infarction Breast cancer Lung cancer Colorectal cancer Stroke Past Surgical History Surgical History Hx of Achilles tendon repair rt. Hx of knee surgery rt. patellar tendon repair Hx of rotator cuff surgery bilateral Hx of total knee replacement lt. Hx of total hip arthroplasty rt. History of colostomy reversal History of bowel resection for diverticulitis; w/colostomy placement for 3-4 months Hx of hernia repair near former colostomy site History of esophagogastroduodenoscopy (EGD) Hx of colonoscopy Last Colonoscopy 08/14/22, repeat 3 years in 2025 Hx of bilateral cataract extraction History of heart artery stent ~3 years ago, x2 stents, done in [place]; f/u dr guerra, [place]>will be seeing new cardio at [place] 2nd week of August 2022. History of cardiac cath ~3 years ago, SOB and "felt like throat was constricting", had "silent heart attack", x2 stents, done in [place] Past Anesthesia History No Hx of Anesthesia Complications and No Family Hx of Anesthesia Complications History of PONV No Hx of PONV and No Hx of Motion Sickness Social History Smoking Status: Never smoker Do You Dip or Chew Tobacco: No Hx Alcohol Use: Yes Alcohol type: wine alcohol intake frequency: 0-2 drinks per day Hx Substance Use: No substance use type: does not use Physical Exam Vital Signs Last Vital Signs Temp 36.7 C 10/19/23 13:08 Pulse 69 10/19/23 13:08 Resp 18 10/19/23 13:08 BP 156/96 H 10/19/23 13:08 Pulse Ox 93 10/19/23 13:08 O2 Del Method Room Air 10/19/23 13:08 O2 Flow Rate 0 10/19/23 11:20 Testing Laboratory Results 10/19/23 08:47 10/19/23 08:47 Echocardiogram Date: 07/06/23 EF: 50-55% LV Function: normal Valvular Disease: + AI (mild) above is a PAMELA, TTEfew days early showed EF 65% Other Testing Echocardiogram Date: 07/06/23 EF: 50-55% LV Function: normal Valvular Disease: + AI (mild) above is a PAMELA, TTEfew days early showed EF 65%
--- NOTE | 2023-10-19 13:48 | Post Operative Brief Note ---
Immediate Post Op Note v1 Date of Surgery October 19, 2023 Pre & Post Diagnosis Operation Date: 10/19/23 08:30 <No data on this case meets the specified criteria> I identified the patient and participated in the time-out.: Yes Procedure Operation Date: 10/19/23 08:30 <No data on this case meets the specified criteria> Surgeon Reji Conklin MD Sheeter Waxer Operator Brando Rowland PA-C Estimated Blood Loss 0 Findings Consistent with Post-Op Diagnosis
--- NOTE | 2023-10-19 13:59 | Operative Report ---
Post Operative Report Pre & Post Diagnosis Operation Date: 10/19/23 08:30 <No data on this case meets the specified criteria> I identified the patient and participated in the time-out.: Yes Procedure Operation Date: 10/19/23 08:30 <No data on this case meets the specified criteria> Surgeon Reji Conklin MD Gas Analyst Brando Rowland PA-C Estimated Blood Loss 0 Findings Consistent with Post-Op Diagnosis acute posterior dislocation right hip hips flexed and internally rotated Specimens none Complications none Description of Procedure following satisfactory general endotracheal anesthesia the patient was examined on the operating room table. The hip was flexed and internally rotated. The hip was flexed to 90 degrees and with longitudinal traction and internal and external rotation the hip was felt to roll over the edge of the cup further traction and internal and external rotation of the hip was felt to reduce. Intraoperative fluoroscopy confirmed the hip was reduced and the patient's leg lengths appeared equal at the bedside. Note: Brando BACH was present and assisted with this reduction due to the patient's large body habitus and the fact that his hip was quite stiff and could not be reduced in the emergency room I attest to the content of the Intraoperative Record and any orders documented therein. Any exceptions are noted below.
--- NOTE | 2023-10-19 14:11 | Fluoroscopy Report ---
FL hip RT 1V CLINICAL HISTORY: RT HIP REDUCTIONright hip arthroplasty COMPARISON STUDY: Radiographs of same day FLUOROSCOPY TIME: 2.4 seconds FLUOROSCOPY IMAGES: 1 EXPOSURE DOSE: 0.6243 mGy FINDINGS: Right hip arthroplasty demonstrates satisfactory alignment, partially imaged. No acute frac ture identified. Surgical clips of the scrotum. IMPRESSION: Fluoroscopic assistance as above. ACT 112: Negative or not required by law. Electronically signed by: Geo Clayton M.D. 10/19/2023 2:10 PM
--- NOTE | 2023-10-19 14:59 | XRay Report ---
XR pelvis 1-2V routine CLINICAL HISTORY: Postoperative evaluation. COMPARISON: Right hip radiographs October 19, 2023 at 11:00 AM. FINDINGS: There is anatomic alignment of the right hip arthroplasty post reduction. No fractures are identified. Scrotal surgical clips are incidentally noted. IMPRESSION: Anatomic alignment of the right hip arthroplasty post reduction. No fractures. ACT 112: Negative or not required by law. Electronically signed by: Jong Nascimento M.D. 10/19/2023 2:58 PM
--- NOTE | 2023-10-19 15:45 | Anesthesiology Progress Note ---
Date of Service October 19, 2023 Anesthesia Post Procedure Vital Signs Vital Signs: Temp Pulse Pulse Pulse Resp BP BP 10/19/23 15:35 66 12 150/83 H 10/19/23 15:20 66 21 154/95 H 10/19/23 15:10 68 19 157/96 H 10/19/23 15:00 36.3 C L 66 14 154/95 H 10/19/23 14:50 67 14 174/101 H 10/19/23 14:40 67 19 165/85 H 10/19/23 14:30 69 19 172/94 H 10/19/23 14:20 66 12 139/84 10/19/23 14:10 70 16 167/93 H 10/19/23 14:01 36.0 C L 86 24 222/133 H 10/19/23 13:08 36.7 C 69 18 156/96 H 10/19/23 13:04 10/19/23 12:25 66 16 180/108 H 10/19/23 11:40 68 18 185/100 H 10/19/23 11:30 68 13 10/19/23 11:30 172/115 H 10/19/23 11:28 182/113 H 10/19/23 11:28 69 12 10/19/23 11:25 69 12 202/122 H 10/19/23 11:25 69 12 10/19/23 11:22 201/111 H 10/19/23 11:22 67 12 10/19/23 11:21 66 16 10/19/23 11:21 180/110 H 10/19/23 11:20 67 15 10/19/23 11:18 69 19 10/19/23 11:18 176/135 H 10/19/23 11:15 176/107 H 10/19/23 11:15 71 12 133/96 10/19/23 11:13 68 10 L 10/19/23 11:13 133/96 10/19/23 11:10 70 10 L 10/19/23 11:10 173/101 H 10/19/23 11:10 173/101 H 10/19/23 11:09 183/109 H 10/19/23 11:09 70 6 L 10/19/23 11:05 70 15 182/115 H 10/19/23 11:05 71 16 10/19/23 11:02 180/108 H 10/19/23 11:02 72 7 L 10/19/23 11:00 162/109 H 10/19/23 11:00 69 9 L 10/19/23 10:57 65 8 L 10/19/23 10:57 181/109 H 10/19/23 10:55 68 8 L 164/105 H 10/19/23 10:55 68 10/19/23 10:52 68 10/19/23 10:52 143/92 H 10/19/23 10:50 65 5 L 10/19/23 10:45 184/105 H 10/19/23 10:45 59 L 17 10/19/23 10:44 59 L 13 10/19/23 10:44 166/102 H 10/19/23 10:40 185/103 H 10/19/23 10:40 59 L 11 L 10/19/23 10:40 61 6 L 184/105 H 10/19/23 10:39 138/90 10/19/23 10:39 61 11 L 10/19/23 10:35 62 17 10/19/23 10:30 61 11 L 10/19/23 10:25 58 L 16 10/19/23 10:20 64 18 10/19/23 10:15 62 14 10/19/23 10:10 58 L 18 10/19/23 10:06 61 18 160/94 H 10/19/23 10:05 61 15 10/19/23 08:50 57 L 10/19/23 08:33 36.9 C 63 18 179/94 H Pulse Ox O2 Del Method O2 Flow Rate 10/19/23 15:35 97 Nasal Cannula 2 10/19/23 15:20 97 Nasal Cannula 2 10/19/23 15:10 97 Nasal Cannula 2 10/19/23 15:00 97 Nasal Cannula 2 10/19/23 14:50 98 Nasal Cannula 2 10/19/23 14:40 97 Nasal Cannula 2 10/19/23 14:30 97 Room Air 0 10/19/23 14:20 97 Oxymask 4 10/19/23 14:10 97 Oxymask 8 10/19/23 14:01 93 Oxymask 8 10/19/23 13:08 93 Room Air 10/19/23 13:04 Room Air 10/19/23 12:25 92 Room Air 10/19/23 11:40 96 Room Air 10/19/23 11:30 97 10/19/23 11:30 10/19/23 11:28 10/19/23 11:28 96 10/19/23 11:25 96 10/19/23 11:25 100 10/19/23 11:22 10/19/23 11:22 93 10/19/23 11:21 93 10/19/23 11:21 10/19/23 11:20 94 0 10/19/23 11:18 95 0 10/19/23 11:18 10/19/23 11:15 10/19/23 11:15 91 0 10/19/23 11:13 98 10/19/23 11:13 10/19/23 11:10 100 9 10/19/23 11:10 10/19/23 11:10 10/19/23 11:09 10/19/23 11:09 100 10/19/23 11:05 10/19/23 11:05 99 10/19/23 11:02 10/19/23 11:02 97 9 10/19/23 11:00 10/19/23 11:00 98 9 10/19/23 10:57 98 10/19/23 10:57 10/19/23 10:55 9 10/19/23 10:55 97 10/19/23 10:52 97 10/19/23 10:52 10/19/23 10:50 98 9 10/19/23 10:45 9 10/19/23 10:45 100 9 10/19/23 10:44 100 9 10/19/23 10:44 10/19/23 10:40 10/19/23 10:40 93 10/19/23 10:40 99 Oxymask 8 10/19/23 10:39 10/19/23 10:39 97 10/19/23 10:35 96 10/19/23 10:30 95 10/19/23 10:25 95 10/19/23 10:20 96 10/19/23 10:15 95 10/19/23 10:10 95 10/19/23 10:06 96 Room Air 10/19/23 10:05 95 10/19/23 08:50 10/19/23 08:33 96 Room Air Pain Intensity Hip: Pain Intensity: 6 Transfer of Care Handoff Completed per policy Notes Mental Status: alert / awake / arousable and participated in evaluation Patient Amnestic to Procedure: Yes Nausea / Vomiting: adequately controlled Pain: adequately controlled Airway Patency, RR, SpO2: stable & adequate BP & HR: stable & adequate Hydration State: stable & adequate Anesthetic Complications: no major complications apparent and Pt Satisfied with anesthetic care
[2023-10-19] MEDS ORDERED: MAGNESIUM HYDROXIDE SUSP 30 ML UDC PO PRN (15:54)
[2023-10-19] MEDS ORDERED: NALOXONE HCL 0.4 MG/1 ML VIAL/CARP IV PRN (15:54)
[2023-10-19] MEDS ORDERED: bisacodyL 10 MG SUPP PR PRN (15:54)
[2023-10-19] MEDS ORDERED: METOCLOPRAMIDE HCL INJ 5 MG/ML 2 ML VIAL IV PRN (15:54)
[2023-10-19] MEDS ORDERED: hydrOXYzine HCl 10 MG TAB PO PRN (15:54)
[2023-10-19] MEDS ORDERED: MELATONIN 3 MG TAB PO PRN (16:09)
--- NOTE | 2023-10-19 17:06 | Hospitalist Consultation ---
Date of Consultation October 19, 2023 Assessment & Plan (1) Dislocation, hip closed: -Pain control per the primary team -Patient sustained a right hip prosthetic dislocation while bending over this am -Multiple failed reduction attempts in the ED -S/P successful reduction under anesthesia with Orthopedic surgery this afternoon -Intact sensation and motor function in the BL LE's -Fall precautions, PT/OT consults -Wean off O2 as able, was saturating in the high 90's on 2L NC at the time of the exam -Rest of care per the primary team -Will obtain routine ECG -DVT PPX with home Eliquis -HH diet with 2gm sodium and 1800 mL restrictions -AM CBC, CMP (2) History of immunosuppressive therapy: -On Rinvoq -Continue (3) Elevated LFTs: -AST of 56, and ALT of 58 -Both have been increased in the past and worse than today -No abdominal pain, scleral icterus, or jaundice -Will repeat CMP tomorrow, if not improving continue workup (4) Venous stasis ulcers of both lower extremities: -Multiple chronic wounds on the BL LE's due to venous stasis -Follows with wound care clinic -No acute infection noted -Wound care nurse consult placed (5) MRSA bacteremia: -Continue chronic Doxycycline (6) Hypertension: -Now stable -Continue olmesartan (7) Atrial fibrillation: -Stable -Continue Eliquis, amiodarone (8) HFrEF (heart failure with reduced ejection fraction): -Euvolemic on exam -Will DC current IV fluids as he is able to eat/drink -Continue Imdur Plan The patient was discussed with Dr. Knowles at the time of the admission Supervising Physician Co-Signing Physician Notes Patient seen and examined, chart reviewed, case discussed with Jordan Mercado and I agree with the assessment and plan as above except as otherwise noted above. Lowell is seen at the bedside. Reviewed medical issues and agree w/ management above. During exam patient appears sad, when asked pt reveals that he has been struggling with his diagnoses. 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 Even a year ago he was kyacking and very active outdoors which brought him a large amount of evelia. The challenges with his illness, hip, and strength have been very limiting to his quality of life and have also taken most of his joyful activities from him. he also notes that he has been struggling with his son's diagnosis of stage 4 pancreatic cancer. He reprots he has had passive thoughts of SI for a long time; however denies active SI and plan. He feels that he is comfortable reaching out if thoughts of harm worsen and his goal is not to harm himself but rather to rebuilt his strength and address his depression. He notes he drinks ~3 drinks of wine per day with no withdrawal sx, but turns to this as a coping mechanism recently and no longer wishes to do this. REports he would like to talk to PT/OT about additional strength modalities to rebuild his strength and possibly get back to some of his outdoor activities if possible. He also reports that he would like to seek treatment for what he knows is underlying depression, and would appreciate a consultation with the behavioral health liason and psychiatrist. He is interested in both pharmacologic and therapy treatment modalities. Psych liason and psych consulted. While patient does endorse passive SI, he denies active SI and plan. He expresses he feels able to reach out if feelings worsen, and has future oriented goals including getting strong and past his depression. Do not feel he requires a 1:1 overnight based on this and liason assessment. History of Present Illness Reason for Consultation: Post-op medical management Attending Physician: Reji Conklin MD History of Present Illness Lowell is a 77 yo male with PMHx of recent right knee prosthetic joint infection S/P I&D/poly-exchange at [facility] in June of this year, MRSA bacteremia (on Chronic Doxycycline), Chronic BL LE wounds, HFrEF, atrial fibrillation (on Eliquis), LEONARD (Non-compliant with HS CPAP), GERD, HTN, RA, CAD, and HLD who presented to the [facility] via EMS after [facility] after he sustained a right hip dislocation while bending over this am. He was noted to be hypertensive with systolic BP in the low 200's in the ED but was otherwise stable. Labs were significant for an AST of 58 and ALT of 58. Xray of the right hip/pelvis on arrival was read as "Dislocated femoral component of the right hip arthroplasty. No fractures.". The ED attempted to reduce the right hip dislocation multiple times but the patient experienced recurrent dislocation after each attempt. The patient was evaluated by Orthopedic Surgery who took the patient to the OR for manual reduction of the right hip dislocation under anesthesia without reported compilations. At the time of the exam the patient was sitting in bed in no acute distress with his son deb. 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 He felt a sudden "pop" and experienced significant right hip pain. This has happened multiple times before and required OR reduction in the past. Pain is currently controlled at rest, patient is wheelchair bound at baseline. Did not have his am medications prior to arrival. Has been on chronic Doxy since his right knee joint infection in June. Is following with the wound care clinic for his chronic BL LE wounds. Denies recent fever, chills, chest pain, cough, abd pain, SOB, nausea, vomiting, diarrhea, dysuria, hematuria, melena, and recent falls. Please refer to Dr. Knowles's attestation for any changes to the treatment plan Allergies Allergy/AdvReac Type Severity Reaction Status Date / Time cat dander Allergy Severe Swelling Verified 10/19/23 13:23 of Lip/Tongue/Throat No Known Drug Allergies Allergy Unknown Verified 10/19/23 13:33 Home Medications Medication Instructions Recorded Confirmed Type sennosides 8.6 mg capsule (senna) 8.6 mg PO AMHS 06/19/22 10/19/23 History ascorbic acid (vitamin C) 500 mg 1,000 mg PO QAM 08/07/22 10/19/23 History capsule aspirin 81 mg tablet,delayed 81 mg PO QAM 08/07/22 10/19/23 History release (Adult Low Dose Aspirin) coenzyme Q10 100 mg capsule 100 mg PO QAM 08/07/22 10/19/23 History lactobacillus combination no.9 4 6,000 mmu cells PO QAM PRN use 08/07/22 10/19/23 History billion cell capsule (Adult 50 with antibiotics Plus Probiotic) oxwxtffr-vdqifbe-dmzv-lutein tablet 1 tab PO QAM 08/07/22 10/19/23 History cholecalciferol (vitamin D3) 250 250 mcg PO DAILY 90 days #90 tabs 09/19/22 10/19/23 Rx mcg (10,000 unit) tablet cyanocobalamin (vitamin B-12) 500 1,000 mcg (2 x 500 mcg) PO QAM #30 01/18/23 10/19/23 Rx mcg tablet tabs folic acid 1 mg tablet 1 mg PO QAM #30 tabs 01/18/23 10/19/23 Rx hydroxyzine HCl 10 mg tablet 10 mg PO HS PRN anxiety or 01/18/23 10/19/23 Rx insomnia #14 tabs duloxetine 60 mg capsule,delayed 60 mg PO QAM 02/05/23 10/19/23 History release esomeprazole magnesium 40 mg 40 mg PO HS 02/05/23 10/19/23 History capsule,delayed release (Nexium) thiamine HCl (vitamin B1) 100 mg 100 mg PO QAM 02/05/23 10/19/23 History tablet melatonin 5 mg capsule 5 mg PO HS PRN Sleep 02/16/23 10/19/23 History diclofenac sodium 1 % topical gel 2 g topical QID #200 grams 04/24/23 10/19/23 Rx (Voltaren Arthritis Pain) amiodarone 200 mg tablet 200 mg PO DAILY 06/29/23 10/19/23 History ranolazine 500 mg tablet,extended See Rx Instructions .Route 08/13/23 10/19/23 Rx release,12 hr .COMPLEX #60 tabs acetaminophen 500 mg capsule 500 mg PO Q6H PRN Pain 08/21/23 10/19/23 History latanoprost 0.005 % eye drops 1 drp ophthalmic (eye) QPM 08/21/23 10/19/23 History apixaban 2.5 mg tablet (Eliquis) 2.5 mg PO BID #90 tabs 08/24/23 10/19/23 Rx gabapentin 400 mg capsule 400 mg PO TID 30 days #90 caps 09/03/23 10/19/23 Rx olmesartan 5 mg tablet 5 mg PO DAILY 90 days #90 tabs 09/03/23 10/19/23 Rx pravastatin 40 mg tablet 40 mg PO DAILY #90 tabs 09/03/23 10/19/23 Rx doxycycline monohydrate 100 mg 100 mg PO BID 09/18/23 10/19/23 History capsule oxycodone 5 mg tablet 5 mg PO BID PRN Pain 09/23/23 10/19/23 History upadacitinib 15 mg tablet,extended 15 mg PO DAILY 09/23/23 10/19/23 History release 24 hr (Rinvoq) metoprolol tartrate 25 mg tablet 12.5 mg (1/2 x 25 mg) PO BID 30 09/24/23 10/19/23 Rx days #30 tabs isosorbide mononitrate 60 mg 60 mg PO QAM #90 tabs 10/08/23 10/19/23 Rx tablet,extended release 24 hr mirtazapine 30 mg tablet 30 mg PO DAILY #90 tabs 10/13/23 10/19/23 Rx Patient History Medical History History of immunosuppressive therapy Pain of right hip Prophylactic antibiotic History of sepsis Injury of left rotator cuff Left shoulder pain Abdominal wall abscess Incisional hernia Lumbar radiculopathy Sepsis 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 knee, occurrred during atrial fibrillation episode. "when he woke up, he couldn't walk." Atrial fibrillation episode occurred in 03/2022, taken to [facility] in [place], admitted to ICU for 1-2 weeks (was not intubated, but wasn't "awake either"), then to cardiac unit, then to rehab at [facility]; f/u dr. guerra in [place]>will be starting to see a banking teacher at [facility] 2nd week of 08/2022 Myocardial Infarction "a silent one, 2019" Sleep apnea no device GERD (gastroesophageal reflux disease) Anxiety and depression HFrEF (heart failure with reduced ejection fraction) EF 40% Mar 2022, improved 55-60% August 2022 Surgical History Hx of Achilles tendon repair rt. Hx of knee surgery rt. patellar tendon repair Hx of rotator cuff surgery bilateral Hx of total knee replacement lt. Hx of total hip arthroplasty rt. History of colostomy reversal History of bowel resection for diverticulitis; w/colostomy placement for 3-4 months Hx of hernia repair near former colostomy site History of esophagogastroduodenoscopy (EGD) Hx of colonoscopy Last Colonoscopy 08/14/22, repeat 3 years in 2025 Hx of bilateral cataract extraction History of heart artery stent ~3 years ago, x2 stents, done in [place]; f/u dr guerra, [place]>will be seeing new cardio at [facility] week of August 2022. History of cardiac cath ~3 years ago, SOB and "felt like throat was constricting", had "silent heart attack", x2 stents, done in [place] Family History Grandmother (Maternal) Diabetes Daughter Diabetes Father Suicide Hypertension Denies family history of Ovarian cancer Prostate cancer Myocardial infarction Breast cancer Lung cancer Colorectal cancer Stroke Social History Smoking Status: Never smoker Second Hand Exposure: No; Do You Dip or Chew Tobacco: No; Tobacco Cessation Education Requested by Patient: No Hx Alcohol Use: Yes Alcohol type: wine Alcohol Intake Frequency: 4 or More x per/Week Hx Substance Use: No Preferred Language: Nepali Communication Ability: Effective Visual Impairment: Limited Hearing Ability: Normal Program Management Analyst Required: No Beliefs That Will Affect Care: None marital status: Single Current Living Situation: Half-Way Current Living Situation Comment: Independent living current occupational status: retired How many Children do You have: 2 Feels Safe at Home: Yes Safety Concerns: Feels Safe At This Time Childhood Exposure to Second-Hand Smoke: Yes caffeine: Yes Dental Care, Regularly: Yes Physical Activity Frequency: Does not Exercise Seatbelt Use: always Sunscreen Use: Yes Assistive Devices: Walker and Wheelchair Physical Exam Physical Exam: Physical Exam: General: In no acute distress, stated age, chronically ill appaearing but non-toxic HEENT: Normocephalic, atraumatic, no scleral icterus, pupils around round, symmetrical, and reactive to light, moist mucus membranes, trachea midline, no thyromegaly Chest/Pulm: No respiratory distress, symmetrical chest expansion, clear breath sounds throughout Cardiac: irregular rate and rhythm, no murmurs noted Abdomen: Negative for ascites and bruising, normoactive bowel sounds, soft, non-tender to palpation throughout : Escamilla catheter is in place from OR, currently draining clear, yellow urine Musculoskeletal: BL LE's are currently symmetrical without rotation, RLE currently with chronic brace in place, on inspection, no erythema or signs of infection of the right knee, no pain on palpation of the BL hips Extremities: Radial, dorsalis pedis, and posterior tibial pulses are intact and symmetrical, no edema noted in the BL LE's Skin: Chronic venous stasis ulcers of the BL LE's including the anterior /lateral shins and BL feet, no current drainage or signs of drainage Neuro: Alert and oriented to person, place, month, year, and president, no focal defects, no tremors noted Psych: No acute distress, calm and cooperative during the exam Results & Data Results & Data Vital Signs (Past 12 Hours) Vital Signs Temp Pulse Pulse Pulse Resp BP BP 10/19/23 16:05 36.8 C 72 16 151/90 H 10/19/23 15:35 66 12 150/83 H 10/19/23 15:20 66 21 154/95 H 10/19/23 15:10 68 19 157/96 H 10/19/23 15:00 36.3 C L 66 14 154/95 H 10/19/23 14:50 67 14 174/101 H 10/19/23 14:40 67 19 165/85 H 10/19/23 14:30 69 19 172/94 H 10/19/23 14:20 66 12 139/84 10/19/23 14:10 70 16 167/93 H 10/19/23 14:01 36.0 C L 86 24 222/133 H 10/19/23 13:08 36.7 C 69 18 156/96 H 10/19/23 13:04 10/19/23 12:25 66 16 180/108 H 10/19/23 11:40 68 18 185/100 H 10/19/23 11:30 68 13 10/19/23 11:30 172/115 H 10/19/23 11:28 182/113 H 10/19/23 11:28 69 12 10/19/23 11:25 69 12 202/122 H 10/19/23 11:25 69 12 10/19/23 11:22 201/111 H 10/19/23 11:22 67 12 10/19/23 11:21 66 16 10/19/23 11:21 180/110 H 10/19/23 11:20 67 15 10/19/23 11:18 69 19 10/19/23 11:18 176/135 H 10/19/23 11:15 176/107 H 10/19/23 11:15 71 12 133/96 10/19/23 11:13 68 10 L 10/19/23 11:13 133/96 10/19/23 11:10 70 10 L 10/19/23 11:10 173/101 H 10/19/23 11:10 173/101 H 10/19/23 11:09 183/109 H 10/19/23 11:09 70 6 L 10/19/23 11:05 70 15 182/115 H 10/19/23 11:05 71 16 10/19/23 11:02 180/108 H 10/19/23 11:02 72 7 L 10/19/23 11:00 162/109 H 10/19/23 11:00 69 9 L 10/19/23 10:57 65 8 L 10/19/23 10:57 181/109 H 10/19/23 10:55 68 8 L 164/105 H 10/19/23 10:55 68 10/19/23 10:52 68 10/19/23 10:52 143/92 H 10/19/23 10:50 65 5 L 10/19/23 10:45 184/105 H 10/19/23 10:45 59 L 17 10/19/23 10:44 59 L 13 10/19/23 10:44 166/102 H 10/19/23 10:40 185/103 H 10/19/23 10:40 59 L 11 L 10/19/23 10:40 61 6 L 184/105 H 10/19/23 10:39 138/90 10/19/23 10:39 61 11 L 10/19/23 10:35 62 17 10/19/23 10:30 61 11 L 10/19/23 10:25 58 L 16 10/19/23 10:20 64 18 10/19/23 10:15 62 14 10/19/23 10:10 58 L 18 10/19/23 10:06 61 18 160/94 H 10/19/23 10:05 61 15 10/19/23 08:50 57 L 10/19/23 08:33 36.9 C 63 18 179/94 H Pulse Ox O2 Del Method O2 Flow Rate 10/19/23 16:05 92 Nasal Cannula 2 10/19/23 15:35 97 Nasal Cannula 2 10/19/23 15:20 97 Nasal Cannula 2 10/19/23 15:10 97 Nasal Cannula 2 10/19/23 15:00 97 Nasal Cannula 2 10/19/23 14:50 98 Nasal Cannula 2 10/19/23 14:40 97 Nasal Cannula 2 10/19/23 14:30 97 Room Air 0 10/19/23 14:20 97 Oxymask 4 10/19/23 14:10 97 Oxymask 8 10/19/23 14:01 93 Oxymask 8 10/19/23 13:08 93 Room Air 10/19/23 13:04 Room Air 10/19/23 12:25 92 Room Air 10/19/23 11:40 96 Room Air 10/19/23 11:30 97 10/19/23 11:30 10/19/23 11:28 10/19/23 11:28 96 10/19/23 11:25 96 10/19/23 11:25 100 10/19/23 11:22 10/19/23 11:22 93 10/19/23 11:21 93 10/19/23 11:21 10/19/23 11:20 94 0 10/19/23 11:18 95 0 10/19/23 11:18 10/19/23 11:15 10/19/23 11:15 91 0 10/19/23 11:13 98 10/19/23 11:13 10/19/23 11:10 100 9 10/19/23 11:10 10/19/23 11:10 10/19/23 11:09 10/19/23 11:09 100 10/19/23 11:05 10/19/23 11:05 99 10/19/23 11:02 10/19/23 11:02 97 9 10/19/23 11:00 10/19/23 11:00 98 9 10/19/23 10:57 98 10/19/23 10:57 10/19/23 10:55 9 10/19/23 10:55 97 10/19/23 10:52 97 10/19/23 10:52 10/19/23 10:50 98 9 10/19/23 10:45 9 10/19/23 10:45 100 9 05/13/24 10:44 100 9 10/19/23 10:44 10/19/23 10:40 10/19/23 10:40 93 10/19/23 10:40 99 Oxymask 8 10/19/23 10:39 10/19/23 10:39 97 10/19/23 10:35 96 10/19/23 10:30 95 10/19/23 10:25 95 10/19/23 10:20 96 10/19/23 10:15 95 10/19/23 10:10 95 10/19/23 10:06 96 Room Air 10/19/23 10:05 95 10/19/23 08:50 10/19/23 08:33 96 Room Air Laboratory Results Abnormal lab results 10/19/23 Range/Units 08:47 RDW Std Deviation 74.1 H (36.4-46.3) fL RDW Coeff of Sammie 21.4 H (11.5-14.5) % [place] # (Auto) 0.97 H (0.11-0.59) K/uL BUN 56 H (6-23) mg/dl BUN/Creatinine Ratio 40.0 H (10-20) Glucose 105 H (70-99(Fasting)) mg/dl AST 56 H (13-39) U/L ALT 58 H (7-52) U/L Diagnostic Findings Hip/Pelvis X-Ray 10/19/23 08:40 XR hip RT 2V w pelvis CLINICAL HISTORY: Right hip pain. COMPARISON: Pelvis and right hip radiograph February 16, 2023. CT of the abdomen and pelvis June 29, 2023. FINDINGS: The femoral component of the right hip arthroplasty is superolaterally dislocated with respect to the acetabular cup. There are no fractures. Symphysis pubis and sacroiliac joints are intact. IMPRESSION: Dislocated femoral component of the right hip arthroplasty. No fractures. ACT 112: Negative or not required by law. Electronically signed by: Jong Nascimento M.D. 10/19/2023 9:30 AM Hip X-Ray 10/19/23 10:57 XR hip RT min 2V HISTORY: 77 years-old Male d/l reduction right hip dislocation COMPARISON: Radiographs of same day at 9:01 AM TECHNIQUE: 2 views of the right hip FINDINGS: Surgical clips are noted within the scrotum. No acute fracture identified. Arterial calcifications.The femoral component of the right hip arthroplasty is superolaterally dislocated with respect to the acetabular cup. There are no fractures. Symphysis pubis and sacroiliac joints are intact. IMPRESSION: Persistent dislocation of the femoral component of the right hip arthroplasty. ACT 112: Negative or not required by law. The above report was generated using voice recognition software. It may contain grammatical, syntax or spelling errors. Electronically signed by: Geo Clayton M.D. 10/19/2023 11:10 AM Hip X-Ray 10/19/23 12:30 FL hip RT 1V CLINICAL HISTORY: RT HIP REDUCTIONright hip arthroplasty COMPARISON STUDY: Radiographs of same day FLUOROSCOPY TIME: 2.4 seconds FLUOROSCOPY IMAGES: 1 EXPOSURE DOSE: 0.6243 mGy FINDINGS: Right hip arthroplasty demonstrates satisfactory alignment, partially imaged. No acute fracture identified. Surgical clips of the scrotum. IMPRESSION: Fluoroscopic assistance as above. ACT 112: Negative or not required by law. Electronically signed by: Geo Clayton M.D. 10/19/2023 2:10 PM Pelvis X-Ray 10/19/23 13:56 XR pelvis 1-2V routine CLINICAL HISTORY: Postoperative evaluation. COMPARISON: Right hip radiographs October 19, 2023 at 11:00 AM. FINDINGS: There is anatomic alignment of the right hip arthroplasty post reduction. No fractures are identified. Scrotal surgical clips are incidentally noted. IMPRESSION: Anatomic alignment of the right hip arthroplasty post reduction. No fractures. ACT 112: Negative or not required by law. Electronically signed by: Jong Nascimento M.D. 10/19/2023 2:58 PM ECG Additional Comments: Will obtain at the time of the consult PG Care Time/CCT Total # of Minutes Spent Total Time Spent with Patient: Total time spent is greater than 50% in coordination of care (as documented) at patient's floor/unit and/or counseling patient: Coding [place] [address] IN/OBS CONSULT LVL 5,80M Patient Type Established Medical Decision Making High Complexity Diagnoses Dislocation, hip closed S73.004A Encounter type: initial encounter Laterality: right History of immunosuppressive therapy Z92.25 Elevated LFTs R79.89 Venous stasis ulcers of both lower extremities I83.019; I83.029; L97.919; L97.929 MRSA bacteremia R78.81; B95.62 Hypertension I10 Atrial fibrillation I48.91 HFrEF (heart failure with reduced ejection fraction) I50.20 (1) Dislocation, hip closed Encounter type: initial encounter Laterality: right Qualified Code(s): S73.004A - Unspecified dislocation of right hip, initial encounter
[2023-10-19] MEDS: LABETALOL HCL IV 5 MG/ML 20ML IV ONE (17:51)
[2023-10-19] MEDS: GABAPENTIN 400 MG CAP PO SCH (18:14)
[2023-10-19] MEDS: DICLOFENAC SOD 1% GEL 100 GM TUBE EXT SCH (18:14)
[2023-10-19] MEDS: SODIUM CHLORIDE 0.9% 1,000 ML IV SCH (18:28)
[2023-10-19] MEDS: oxyCODONE HCL IR 5 MG TAB (IMMEDIATE RELEASE) PO PRN (19:51)
[2023-10-19] MEDS: PANTOprazole 40 MG TAB PO SCH (20:05)
[2023-10-19] MEDS: DOXYCYCLINE HYCLATE 100 MG CAP PO SCH (20:05)
[2023-10-19] MEDS: METOPROLOL TARTRATE 25 MG TAB PO SCH (20:05)
[2023-10-19] MEDS: SENNA 8.6 MG TAB PO SCH (20:05)
[2023-10-19] MEDS: RANOLAZINE 500 MG ER TAB PO SCH (20:05)
[2023-10-19] MEDS: LATANOPROST 0.005% OP SOLN 2.5 ML BTL OP SCH (20:06)
[2023-10-19] MEDS: APIXABAN 2.5 MG TAB PO SCH (20:06)
[2023-10-19] MEDS: ACETAMINOPHEN 500 MG TAB PO PRN (20:12)
[2023-10-20 07:28] LABS: Basophils # (auto) 0.02 K/uL (0.00-0.20); Basophils % (auto) 0.2 %; Eosinophils # (auto) 0.14 K/uL (0.00-0.50); Eosinophils % (auto) 1.7 %; Hemoglobin 13.2 g/dl (14.0-18.0); Immature Granulocytes # (auto) 0.04 K/uL (0.01-0.20); Immature Granulocytes % (auto) 0.5 %; Lymphocytes % (auto) 10.9 %; Mean Corpuscular Hemoglobin 31.3 pg (25.0-34.0); Mean Corpuscular Volume 94.8 fL (80.0-100.0); Mean Platelet Volume 10.2 fL (9.4-12.4); Monocytes # (auto) 1.12 K/uL (0.11-0.59); Monocytes % (auto) 13.6 %; Neutrophils # (auto) 6.01 K/uL (1.40-6.50); Neutrophils % (auto) 73.1 %; Platelet Count 160 K/uL (130-400); RDW Standard Deviation 73.9 fL (36.4-46.3); Red Blood Count 4.22 M/uL (4.70-6.10); White Blood Count 8.23 K/ul (4.8-10.8)
--- NOTE | 2023-10-20 07:36 | Orthopedic Progress Note ---
Date of Service October 20, 2023 Assessment & Plan (1) Dislocation, hip, posterior: Plan: Postop day 1 status post closed reduction right FRANCIS dislocation. PT/OT protocols. Hip precautions. Weightbearing as tolerated. DVT prophylaxis-apixaban p.o. twice daily pain management as written. DC planning-orthopedically, the patient is stable for discharge. We will ambulate him with physical therapy. plans are for the Escamilla catheter to come out this morning. if patient is ambulating independently and is urinating without difficulty, we will plan for discharge back to [facility] today. Plans will be for them to provide physical therapy at his apartment for hip precautions and flexor strengthening. Plan for discharged home if medically stable and ambulating independently. Admission and Anticipated Discharge Date Admission Date: October 19, 2023 Subjective Postop day 1 patient is sitting up in bed awake and alert. States that his hip feels a little sore this morning but otherwise he feels well. He is also having some left heel pain. No other complaints this morning. He is hoping to go home today. Physical Exam Physical Exam: Leg lengths appear equal. Hip is located. toes are mobile. Patient was di scussing his left heel feeling sore. He had the left lower extremity hanging off the bed for comfort. The left heel it does feel somewhat very soft. No overt bruising or signs of a heel wound at this time but patient does have some skin issues just above the heel posteriorly along the ankle with his vascular insufficiency. Results & Data Vital Signs (Past 12 Hours) Vital Signs Temp Pulse Resp BP Pulse Ox O2 Del Method O2 Flow Rate 10/20/23 03:19 37.0 C 109 H 16 147/84 H 89 L Nasal Cannula 2 10/19/23 22:34 37.1 C 109 H 18 148/86 H 89 L Nasal Cannula 2 10/19/23 22:05 Nasal Cannula 2
[2023-10-20 08:05] LABS: Anisocytosis Present
[2023-10-20] MEDS: AMIODARONE 200 MG TAB PO SCH (08:34)
[2023-10-20] MEDS: CHOLECALCIFEROL 125 MCG (5,000 UNITS) TAB PO SCH (08:34)
[2023-10-20] MEDS: LACTOBACILLUS ACIDOPHILUS 1 GM PACK PO SCH (08:34)
[2023-10-20] MEDS: DULoxetine HCL 60 MG CAP PO SCH (08:35)
[2023-10-20] MEDS: CYANOCOBALAMIN (B-12) 500 MCG TABLET PO SCH (08:35)
[2023-10-20] MEDS: FOLIC ACID 1 MG TAB PO SCH (08:35)
[2023-10-20] MEDS: ISOSORBIDE MONO EXTENDED REL 60 MG TABCR PO SCH (08:36)
[2023-10-20] MEDS: LOSARTAN POTASSIUM 25 MG TAB PO SCH (08:37)
[2023-10-20] MEDS: PRAVASTATIN SOD 40 MG TAB PO SCH (08:37)
[2023-10-20] MEDS: CEROVITE ADV FORMULA TAB PO SCH (08:37)
[2023-10-20] MEDS: MIRTAZAPINE TAB 15 MG TAB PO SCH (08:38)
[2023-10-20] MEDS: THIAMINE HCL 100 MG TAB PO SCH (08:38)
[2023-10-20] MEDS: ASCORBIC ACID 500 MG TAB PO SCH (08:38)
[2023-10-20] MEDS: ASPIRIN 81 MG ECTAB PO SCH (08:39)
[2023-10-20] MEDS ORDERED: NON-FORMULARY MEDICATION (Coenzyme Q10 100 mg capsule) PO SCH (09:00)
[2023-10-20] MEDS ORDERED: MULTIVITAMIN TAB PO SCH (09:00)
--- NOTE | 2023-10-20 09:10 | Electrocardiogram Report ---
Test Reason : Blood Pressure : / mmHG Vent. Rate : 070 BPM Atrial Rate : 070 BPM P-R Int : 198 ms QRS Dur : 128 ms QT Int : 394 ms P-R-T Axes : 038 -42 019 degrees QTc Int : 425 ms Normal sinus rhythm Left axis deviation Non-specific intra-ventricular conduction block Abnormal ECG When compared with ECG of 29-JUN-2023 16:59, Nonspecific T wave abnormality no longer evident in Anterior leads Confirmed by Indio Beauchamp ([id number]) on 10/20/2023 9:10:15 AM Referred By: Danny Soliman Confirmed By:Mikhail Beauchamp
[2023-10-20 09:28] LABS: Albumin Globulin Ratio 1.4 (0.9-2); Albumin Level 3.6 gm/dl (3.4-5.0); BUN Creatinine Ratio 32.2 (10-20); Bilirubin,Total 0.8 mg/dl (0.2-1.0); Calcium 8.9 mg/dl (8.6-10.3); Creatinine Clr Calc Pharmacy 65.5 ml/min; Est GFR (African American) 65.6 ml/min; Est GFR (Non-African American) 56.6 ml/min; Globulin 2.5 gm/dl (2.5-4.0); Potassium 4.8 mmol/L (3.5-5.1); Total Protein 6.1 gm/dl (6.0-8.3)
--- NOTE | 2023-10-20 14:35 | Psychiatric Consultation ---
Date of Consultation October 20, 2023 Impression / Recommendations Impression Patient discharged before he could be seen for psychiatry consult for medication recommendations. He was seen by psychiatry liason RN last evening. Review of his psychiatric medications notable for duloxetine 60mg qd (typical maximum dose and good evidence for depression, anxiety and chronic pain) as well as mirtazapine 30mg HS (good dose for depression, anxiety, sleep and appetite benefit and thought to be synergistic with duloxetine so feel this is a very good pharmacological choice). Suspect that psychotherapy may be the most beneficial addition in helping him address the major driving factors for his depression of loss of physical abilities to engage in some of his favorite hobbies and grief regarding his son's illness. Development of mood symptoms in later life related to stage of psychosocial development of integrity vs despair can be common and therapy can be very beneficial for this. Psych History Chief Complaint "[]". Allergies Allergy/AdvReac Type Severity Reaction Status Date / Time cat dander Allergy Severe Swelling Verified 10/19/23 13:23 of Lip/Tongue/Throat No Known Drug Allergies Allergy Unknown Verified 10/19/23 13:33 Home Medications Medication Instructions Recorded Confirmed Type sennosides 8.6 mg capsule (senna) 8.6 mg PO AMHS 06/19/22 10/19/23 History ascorbic acid (vitamin C) 500 mg 1,000 mg PO QAM 08/07/22 10/19/23 History capsule aspirin 81 mg tablet,delayed 81 mg PO QAM 08/07/22 10/19/23 History release (Adult Low Dose Aspirin) coenzyme Q10 100 mg capsule 100 mg PO QAM 08/07/22 10/19/23 History lactobacillus combination no.9 4 6,000 mmu cells PO QAM PRN use 08/07/22 10/19/23 History billion cell capsule (Adult 50 with antibiotics Plus Probiotic) admwjftt-zppeiog-leix-lutein tablet 1 tab PO QAM 08/07/22 10/19/23 History cholecalciferol (vitamin D3) 250 250 mcg PO DAILY 90 days #90 tabs 09/19/22 10/19/23 Rx mcg (10,000 unit) tablet cyanocobalamin (vitamin B-12) 500 1,000 mcg (2 x 500 mcg) PO QAM #30 01/18/23 10/19/23 Rx mcg tablet tabs folic acid 1 mg tablet 1 mg PO QAM #30 tabs 01/18/23 10/19/23 Rx hydroxyzine HCl 10 mg tablet 10 mg PO HS PRN anxiety or 01/18/23 10/19/23 Rx insomnia #14 tabs duloxetine 60 mg capsule,delayed 60 mg PO QAM 02/05/23 10/19/23 History release esomeprazole magnesium 40 mg 40 mg PO HS 02/05/23 10/19/23 History capsule,delayed release (Nexium) thiamine HCl (vitamin B1) 100 mg 100 mg PO QAM 02/05/23 10/19/23 History tablet melatonin 5 mg capsule 5 mg PO HS PRN Sleep 02/16/23 10/19/23 History diclofenac sodium 1 % topical gel 2 g topical QID #200 grams 04/24/23 10/19/23 Rx (Voltaren Arthritis Pain) amiodarone 200 mg tablet 200 mg PO DAILY 06/29/23 10/19/23 History ranolazine 500 mg tablet,extended See Rx Instructions .Route 08/13/23 10/19/23 Rx release,12 hr .COMPLEX #60 tabs acetaminophen 500 mg capsule 500 mg PO Q6H PRN Pain 08/21/23 10/19/23 History latanoprost 0.005 % eye drops 1 drp ophthalmic (eye) QPM 08/21/23 10/19/23 History apixaban 2.5 mg tablet (Eliquis) 2.5 mg PO BID #90 tabs 08/24/23 10/19/23 Rx gabapentin 400 mg capsule 400 mg PO TID 30 days #90 caps 09/03/23 10/19/23 Rx olmesartan 5 mg tablet 5 mg PO DAILY 90 days #90 tabs 09/03/23 10/19/23 Rx pravastatin 40 mg tablet 40 mg PO DAILY #90 tabs 09/03/23 10/19/23 Rx doxycycline monohydrate 100 mg 100 mg PO BID 09/18/23 10/19/23 History capsule oxycodone 5 mg tablet 5 mg PO BID PRN Pain 09/23/23 10/19/23 History upadacitinib 15 mg tablet,extended 15 mg PO DAILY 09/23/23 10/19/23 History release 24 hr (Rinvoq) metoprolol tartrate 25 mg tablet 12.5 mg (1/2 x 25 mg) PO BID 30 09/24/23 10/19/23 Rx days #30 tabs isosorbide mononitrate 60 mg 60 mg PO QAM #90 tabs 10/08/23 10/19/23 Rx tablet,extended release 24 hr mirtazapine 30 mg tablet 30 mg PO DAILY #90 tabs 10/13/23 10/19/23 Rx Patient History Medical History History of immunosuppressive therapy Pain of right hip Prophylactic antibiotic History of sepsis Injury of left rotator cuff Left shoulder pain Abdominal wall abscess Incisional hernia Lumbar radiculopathy Sepsis 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 knee, occurrred during atrial fibrillation episode. "when he woke up, he couldn't walk." Atrial fibrillation episode occurred in 03/2022, taken to [facility], admitted to ICU for 1-2 weeks (was not intubated, but wasn't "awake either"), then to cardiac unit, then to rehab at [facility]; f/u dr. guerra in [place]>will be starting to see a grievance and appeals specialist at [facility] 2nd week of 08/2022 Myocardial Infarction "a silent one, 2019" Sleep apnea no device GERD (gastroesophageal reflux disease) Anxiety and depression HFrEF (heart failure with reduced ejection fraction) EF 40% Mar 2022, improved 55-60% August 2022 Surgical History Hx of Achilles tendon repair rt. Hx of knee surgery rt. patellar tendon repair Hx of rotator cuff surgery bilateral Hx of total knee replacement lt. Hx of total hip arthroplasty rt. History of colostomy reversal History of bowel resection for diverticulitis; w/colostomy placement for 3-4 months Hx of hernia repair near former colostomy site History of esophagogastroduodenoscopy (EGD) Hx of colonoscopy Last Colonoscopy 08/14/22, repeat 3 years in 2025 Hx of bilateral cataract extraction History of heart artery stent ~3 years ago, x2 stents, done in [place]; f/u dr guerra, [place]>will be seeing new cardio at [facility] August 2022. History of cardiac cath ~3 years ago, SOB and "felt like throat was constricting", had "silent heart attack", x2 stents, done in [place] Family History Grandmother (Maternal) Diabetes Daughter Diabetes Father Suicide Hypertension Denies family history of Ovarian cancer Prostate cancer Myocardial infarction Breast cancer Lung cancer Colorectal cancer Stroke Social History Smoking Status: Never smoker Second Hand Exposure: No; Do You Dip or Chew Tobacco: No; Hx Alcohol Use: Yes Alcohol type: wine Alcohol Intake Frequency: 4 or More x per/Week Hx Substance Use: No Preferred Language: Sami Communication Ability: Effective Visual Impairment: Limited Hearing Ability: Normal Furnace Installer Required: No Beliefs That Will Affect Care: None marital status: Single Current Living Situation: Shelter Current Living Situation Comment: Independent living current occupational status: retired How many Children do You have: 2 Feels Safe at Home: Yes Childhood Exposure to Second-Hand Smoke: Yes caffeine: Yes Dental Care, Regularly: Yes Physical Activity Frequency: Does not Exercise Seatbelt Use: always Sunscreen Use: Yes Assistive Devices: Walker and Wheelchair Physical Exam Vital Signs (Past 24 Hours): Last Vital Signs Temp 37.2 C 10/20/23 08:26 Pulse 68 10/20/23 08:26 Resp 18 10/20/23 08:26 BP 132/74 10/20/23 08:26 Pulse Ox 96 10/20/23 08:26 O2 Del Method Room Air 10/20/23 08:26 O2 Flow Rate 2 10/20/23 03:19 Coding Level of Care Code None
--- NOTE | 2023-10-22 14:59 | Discharge Summary ---
Date of Service October 22, 2023 Admission HPI Per Admitting Provider patient is a chronically ill 77-year-old male who has a history of right total hip replacement done twice he believes the last time through an anterior approach. He did suffer a dislocation about a year ago when he fell out of a wheelchair. 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 Attempt was that made for close reduction in the emergency room which was unsuccessful and he will now be taken to the operating room for reduction under general anesthesia Admission Exam Per Admitting Provider Physical Exam: General: Elderly appearing man who appears to be his stated age. HEENT: NCAT EOMI Neck: Supple Heart: Regular rate and rhythm Lungs: Breath sounds clear and present Abdomen: Obese soft bowel sounds positive Extremities the right hip is flexed and internally rotated. There is pain on any attempted motion. There is a bandage over the right knee consistent with recent surgery. There is severe chronic skin changes of the lower extremity. Neurological and vascular: Intact Principal Diagnosis Right FRANCIS Dislocation Discharge Data Allergies Allergy/AdvReac Type Severity Reaction Status Date / Time cat dander Allergy Severe Swelling Verified 10/19/23 13:23 of Lip/Tongue/Throat No Known Drug Allergies Allergy Unknown Verified 10/19/23 13:33 Consultations 10/19/23 15:54 Consult Hospitalist Routine 10/20/23 09:00 Consult Psychiatry Routine Procedures Performed Operation Date: 10/19/23 08:30 Actual Procedures p Right Hip Closed Reduction(Right) - Reji Conklin MD Ordered Studies 10/19/23 12:30 FL hip RT 1V Routine Hospital Course (1) Dislocation, hip, posterior: Patient: RAFY CHICAS Admit Date: 10/19/23 MR#: [id number] Att Phy: Reji Conklin MD Acct ID: [id number] Amina Phy: Janny Danny HARDEN Date: 1945 Fam Phy: Age: 77 Location: 3W Sex: M Room/Bed: [facility] cc: ~ *NOTICE TO RECEIVING REPUBLICAN/AGENCY This information is strictly Confidential and protected under [place] law. [place] law prohibits you from making any further disclosure of this information unless further disclosure is expressly permitted by the written consent of the person to whom it pertains or is authorized by law. A general authorization for the release of medical or other information is not sufficient for this purpose. Hospital accepts no responsibility if the information is made available to any other person, INCLUDING THE PATIENT. Date of Service October 20, 2023 Assessment & Plan (1) Dislocation, hip, posterior: Plan: Postop day 1 status post closed reduction right FRANCIS dislocation. PT/OT protocols. Hip precautions. Weightbearing as tolerated. DVT prophylaxis-apixaban p.o. twice daily pain management as written. DC planning-orthopedically, the patient is stable for discharge. We will a mbulate him with physical therapy. plans are for the Escamilla catheter to come out this morning. if patient is ambulating independently and is urinating without difficulty, we will plan for discharge back to [facility] today. Plans will be for them to provide physical therapy at his apartment for hip precautions and flexor strengthening. Plan for discharged home if medically stable and ambulating independently. Admission and Anticipated Discharge Date Admission Date: October 19, 2023 Subjective Postop day 1 patient is sitting up in bed awake and alert. States that his hip feels a little sore this morning but otherwise he feels well. He is also having some left heel pain. No other complaints this morning. He is hoping to go home today. Physical Exam Physical Exam: Leg lengths appear equal. Hip is located. toes are mobile. Patient was discussing his left heel feeling sore. He had the left lower extremity hanging off the bed for comfort. The left heel it does feel somewhat very soft. No overt bruising or signs of a heel wound at this time but patient does have some skin issues just above the heel posteriorly along the ankle with his vascular insufficiency. Results & Data Vital Signs (Past 12 Hours) Vital Signs Temp Pulse Resp BP Pulse Ox O2 Del Method O2 Flow Rate 10/20/23 03:19 37.0 C 109 H 16 147/84 H 89 L Nasal Cannula 2 10/19/23 22:34 37.1 C 109 H 18 148/86 H 89 L Nasal Cannula 2 10/19/23 22:05 Nasal Cannula 2 Signed By: <Electronically signed by Reji Conklin MD> 10/20/23 7503 <Electronically signed by Brando Rowland PA-C> 10/20/23 0736 Created: 10/20/2331 Total Time Total Time Spent Total Time Spent (In Minutes): 10 Discharge Plan Discharge Items Patient Disposition: Home - Self-Care Reason For Visit: POST SURGICAL CARE Discharge Diagnosis: Right FRANCIS dislocation Activity: Per Instructions section Weightbearing: Full weightbearing Non-emergency contact: Surgeon Call non-emergency contact if: you have any medication questions and your pain is worsening Follow-up/Referrals: Danny Soliman DO [Primary Care Provider] - 10/27/23 11:30 am Diet: Heart Healthy Addtl Attending Provider Instructions: Continue to follow hip precautions over the next several weeks. Keep your left heel elevated off of the bed with a small pillow or rolled towel under the leg just above the ankle A prescription for physical therapy will be given to you for Flexor strengthening, Ambulation training if needed, and hip precuations. Follow up with Dr. Conklin if you are having difficulties with the hip, otherwise you may follow up as needed. [phone] Stand-Alone Forms: My [facility] [employer], Smoking Cessation Medications and DC Order Prescriptions: Continued acetaminophen 500 mg capsule 500 mg PO Q6H PRN (Reason: Pain) doxycycline monohydrate 100 mg capsule 100 mg PO BID oxycodone 5 mg tablet 5 mg PO BID PRN (Reason: Pain) Rinvoq 15 mg tablet extended release 24 hr 15 mg PO DAILY Rx Instructions: patient states' I restarted it on my own" cholecalciferol (vitamin D3) 250 mcg (10,000 unit) tablet 250 mcg PO DAILY 90 Days Qty: 90 3RF ranolazine 500 mg tablet extended release 12 hr See Rx Instructions .ROUTE .COMPLEX Qty: 60 5RF Dose Instruction: TAKE 1 TABLET BY MOUTH TWICE DAILY Rx Instructions: TAKE 1 TABLET BY MOUTH TWICE DAILY Eliquis 2.5 mg tablet 2.5 mg PO BID Qty: 90 3RF gabapentin 400 mg capsule 400 mg PO TID 30 Days Qty: 90 5RF pravastatin 40 mg tablet 40 mg PO DAILY Qty: 90 3RF Rx Instructions: TAKE 1 TABLET BY MOUTH ONCE DAILY olmesartan 5 mg tablet 5 mg PO DAILY 90 Days Qty: 90 3RF metoprolol tartrate 25 mg tablet 12.5 mg PO BID 30 Days Qty: 30 5RF Rx Instructions: TAKE 1/2 TABLET BY MOUTH TWICE DAILY FOR YOUR HEART AND HIGH BLOOD PRESSURE isosorbide mononitrate 60 mg tablet extended release 24 hr 60 mg PO QAM Qty: 90 3RF latanoprost 0.005 % drops 1 drp ophthalmic (eye) QPM senna 8.6 mg capsule 8.6 mg PO AMHS diclofenac sodium [Voltaren Arthritis Pain] 1 % gel 2 g topical QID Qty: 200 2RF mirtazapine 30 mg tablet 30 mg PO DAILY Qty: 90 3RF aspirin [Adult Low Dose Aspirin] 81 mg tablet,delayed release (DR/EC) 81 mg PO QAM Hold Instructions: Resume on 02/23/23. until PCP/surgery followup jagdjttz-sgnzhmx-htyd-lutein Tablet 1 tab PO QAM coenzyme Q10 100 mg capsule 100 mg PO QAM Adult 50 Plus Probiotic 4 billion cell capsule 6,000 mmu cells PO QAM PRN (Reason: use with antibiotics) Rx Instructions: administer with a meal ascorbic acid (vitamin C) 500 mg capsule 1,000 mg PO QAM melatonin 5 mg capsule 5 mg PO HS PRN (Reason: Sleep) cyanocobalamin (vitamin B-12) 500 mcg Tablet 1,000 mcg PO QAM Qty: 30 0RF hydroxyzine HCl 10 mg Tablet 10 mg PO HS PRN (Reason: anxiety or insomnia) Qty: 14 0RF folic acid 1 mg Tablet 1 mg PO QAM Qty: 30 0RF thiamine HCl (vitamin B1) 100 mg tablet 100 mg PO QAM esomeprazole magnesium [Nexium] 40 mg capsule,delayed release(DR/EC) 40 mg PO HS duloxetine 60 mg capsule,delayed release(DR/EC) 60 mg PO QAM amiodarone 200 mg tablet 200 mg PO DAILY Rx Instructions: TAKE 1 TABLET BY MOUTH ONCE DAILY Discharge Orders: Discharge Order (Routine); Ordered 10/20/23 Ordered By: Brando Fleming/Other Patient Handouts: Hip Precautions, ED Hip Replace Dislocation Reduc Admission Data Admit Date/Time: 10/19/23 13:56 Attending Provider: Reji Conklin Admit Provider: Reji Conklin Primary Care Provider: Danny Soliman Other Providers: Danny Kim; Roberta Pearson; Brian Nix; Abundio Gannon Jr; Yessi Ceballos.; Nimco Rich; Elmer Malcolm; [facility] Other Interventions: Discharge Summary Assessment (RN) Last Done: 10/20/23 10:47
== END 2023-10-20 14:07 | disposition home or self-care (01) ==
LOC: ED 08:26 → OR 13:05 → 3W 13:05

== ENCOUNTER 2023-11-05 22:51 | Inpatient (IN) ==
--- NOTE | 2023-11-05 23:30 | Emergency Department Note ---
Impression & Plan Sepsis, Acute kidney injury superimposed on chronic kidney disease, Elevated procalcitonin, Generalized weakness ED Provider Note HISTORY OF PRESENT ILLNESS: Patient is a 77-year-old male presenting with subjective fevers, rigors and general malaise. Patient reports that he has been feeling very weak and rundown all day today. Reports he had a fever of 99 at home. He also was having the shakes and rigors all night tonight. He states that he has chronic venous stasis of his lower extremities and follows with wound clinic. He is on chronic doxycycline. He denies any chest pain or shortness of breath. He has a history of rheumatoid arthritis and is on Rinvoq. He reports over the last week he has had multiple falls. He fell yesterday in the shower and followed up with his primary care provider and had x-rays done which she reports were negative. He states that he was not feeling well tonight and was feeling very weak, prompting him to come get evaluated. ROS: as above PHYSICAL EXAM: Constitutional: Patient appears in no acute distress. HENT: Head: Normocephalic and atraumatic. Eyes: EOMI, PERRL Mouth/Throat: Mucous membranes moist. Neck: Trachea midline. Neck supple. Cardiovascular: RRR, No murmurs, rubs or gallops. Intact distal pulses. Pulmonary/Chest: No respiratory distress. Breath sounds clear and equal bilaterally. No wheezes or rales. Abdominal: Abdomen soft, no tenderness, rebound or guarding. Musculoskeletal: No edema, tenderness or deformity noted. Skin: Warm and dry. Patient has chronic venous stasis of the bilateral lower extremities. Has a few skin tears of the skin on the arch of the right foot and the great toe of the left foot. Psychiatric: Appropriate mood and affect for situation. Neurological: Alert and keenly responsive. CN II-XII grossly intact, moving all extremities equally and fully. MDM: - Vitals signs showed hypotension. Sepsis protocol initiated. - History obtained via patient. History as above. - Chronic conditions affecting care: HFrEF; Afib; anxiety/depression; HTN; rheumatoid arthritis; CAD; HLD - Differential diagnoses include, but are not limited to: UTI; pneumonia; bacteremia; viral syndrome; dehydration - Order placed for continuous cardiac monitoring. At this time, monitor showed rate of 70 bpm with normal sinus rhythm, per my interpretation. - External medical records reviewed. Transesophageal echocardiogram report dated 07/06/2023 was reviewed. Patient has an EF of 50 to 55%. - EKG interpreted by myself showed normal sinus rhythm. Rate 73 bpm. QT 398. No acute ischemic changes. - Laboratory workup interpreted by myself showed normal WBC; slight hyponatremia (Na 135); JEFFERY on CKD (Cr 1.64); elevated lactic acid (3.2); elevated AST (65); elevated troponin (66); elevated procalcitonin - Blood cultures obtained - CXR negative for pneumonia, per my interpretation - Patient given 2.5L NS in ER. His sepsis fluid resuscitation based on ideal body weight is 2590.8 mL. - Empirically started on IV rocephin. - UA obtained after IV antibiotics initiated. - Viral respiratory panel negative. - Initially ordered IV vancomycin, but on discussion with hospitalist, will initiate daptomycin instead, given patient's JEFFERY and unclear source of sepsis. - Patient's blood pressure improved with fluid resuscitation. - Discussion was had with manager target about patient's case and need for admission - Hospitalist consulted for admission - [facility] ASSESSMENT AND PLAN: Diagnosis: sepsis; elevated procalcitonin; JEFFERY on CKD; generalized weakness Plan: admit Past Med/Surg History Problem List (Updated 11/06/23 @ 00:53 by Mariaa Black MD) Generalized weakness (Acute) Elevated procalcitonin (Acute) Acute kidney injury superimposed on chronic kidney disease (Acute) Sepsis (Acute) Skin tear of right upper extremity (Acute) Open wound of left foot (Acute) Open wound of right foot (Acute) Skin tear of right hand without complication (Acute) Venous ulcer of left leg (Acute) Traumatic open wound of right lower leg (Acute) Elevated LFTs Venous stasis ulcers of both lower extremities MRSA bacteremia Dislocation, hip closed (Acute) Dislocation, hip, posterior Rotator cuff arthropathy of both shoulders Idiopathic polyneuropathy Abrasion of right knee (Acute) History of immunosuppressive therapy Pain of right hip Prophylactic antibiotic History of sepsis Left shoulder pain Acquired foot deformity (Chronic) Traumatic wound (Acute) Pressure ulcer of left foot, stage 3 (Acute) Abnormal ankle brachial index (Acute) Right knee pain Cellulitis of knee, right (Acute) Non-ST elevation MO (NSTEMI) (Acute) Leukocytosis (Acute) Sepsis (Acute) Myoclonus Cervical radiculopathy Neuropathy Weakness On amiodarone therapy Weakness of right hip DVT prophylaxis Constipation Acute on chronic diastolic congestive heart failure Sepsis following procedure Wheezing Rhabdomyolysis MRSA infection History of CHF (congestive heart failure) Visual disturbance Hyponatremia Hypotension Acute metabolic encephalopathy Severe sepsis Abdominal wall abscess (Acute) Atrial fibrillation HFrEF (heart failure with reduced ejection fraction) EF 40% Mar 2022, improved 55-60% August 2022 Lumbar stenosis Osteoarthritis of right knee Anxiety and depression GERD (gastroesophageal reflux disease) Hypertension Rheumatoid arthritis Anemia (Acute) Coronary artery disease Pre-operative cardiovascular examination, myocardial ischemia Atherogenic dyslipidemia Heart failure with preserved ejection fraction Fall Lumbar radiculopathy Low back pain Lower extremity weakness Degenerative spondylolisthesis Parainfluenza virus bronchitis Chronic low back pain Scoliosis of lumbar region due to degenerative disease of spine in adult Dislocation of hip, right, closed (Acute) Septic joint of right knee joint COVID-19 (Acute) Incisional hernia Incarcerated intra-abdominal hernia (Acute) Abdominal pain (Acute) Adjustment disorder with mixed anxiety and depressed mood Sepsis (Acute) Elevated lactic acid level (Acute) Medical History History of immunosuppressive therapy Pain of right hip Prophylactic antibiotic History of sepsis Injury of left rotator cuff Left shoulder pain Abdominal wall abscess Incisional hernia Lumbar radiculopathy Sepsis 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 knee, occurrred during atrial fibrillation episode. "when he woke up, he couldn't walk." Atrial fibrillation episode occurred in 03/2022, taken to [facility], admitted to ICU for 1-2 weeks (was not intubated, but wasn't "awake either"), then to cardiac unit, then to rehab at [facility] in [place]; f/u dr. guerra in [place]>will be starting to see a medical billing clerk at [facility] 2nd week of 08/2022 Myocardial Infarction "a silent one, 2019" Sleep apnea no device GERD (gastroesophageal reflux disease) Anxiety and depression HFrEF (heart failure with reduced ejection fraction) EF 40% Mar 2022, improved 55-60% August 2022 Surgical History Hx of Achilles tendon repair rt. Hx of knee surgery rt. patellar tendon repair Hx of rotator cuff surgery bilateral Hx of total knee replacement lt. Hx of total hip arthroplasty rt. History of colostomy reversal History of bowel resection for diverticulitis; w/colostomy placement for 3-4 months Hx of hernia repair near former colostomy site History of esophagogastroduodenoscopy (EGD) Hx of colonoscopy Last Colonoscopy 08/14/22, repeat 3 years in 2025 Hx of bilateral cataract extraction History of heart artery stent ~3 years ago, x2 stents, done in [place]; f/u dr guerra [place]>will be seeing new cardio at [facility] 2nd week of August 2022. History of cardiac cath ~3 years ago, SOB and "felt like throat was constricting", had "silent heart attack", x2 stents, done in [place] Family History Grandmother (Maternal) Diabetes Daughter Diabetes Father Suicide Hypertension Denies family history of Ovarian cancer Prostate cancer Myocardial infarction Breast cancer Lung cancer Colorectal cancer Stroke Social History Smoking Status: Never smoker Second Hand Exposure: No; Do You Dip or Chew Tobacco: No; Hx Alcohol Use: Yes Alcohol type: wine Alcohol Intake Frequency: 4 or More x per/Week Hx Substance Use: No Preferred Language: Liberian Communication Ability: Effective Visual Impairment: Limited Hearing Ability: Normal Remote Sensing Specialist Required: No Beliefs That Will Affect Care: None marital status: Single Current Living Situation: [facility] Current Living Situation Comment: Independent living current occupational status: retired How many Children do You have: 2 Feels Safe at Home: Yes Childhood Exposure to Second-Hand Smoke: Yes caffeine: Yes Dental Care, Regularly: Yes Physical Activity Frequency: Does not Exercise Seatbelt Use: always Sunscreen Use: Yes Assistive Devices: Walker and Wheelchair Allergies Allergies Allergy/AdvReac Type Severity Reaction Status Date / Time cat dander Allergy Severe CAT Verified 11/06/23 00:03 HAIR---Swelling of Lip/Tongue/Throat Home Meds Home Medications Medication Instructions Recorded Confirmed sennosides 8.6 mg capsule (senna) 8.6 mg PO AMHS 06/19/22 11/06/23 ascorbic acid (vitamin C) 500 mg 1,000 mg PO QAM 08/07/22 11/06/23 capsule aspirin 81 mg tablet,delayed 81 mg PO QAM 08/07/22 11/06/23 release (Adult Low Dose Aspirin) coenzyme Q10 100 mg capsule 100 mg PO QAM 08/07/22 11/06/23 lactobacillus combination no.9 4 6,000 mmu cells PO QAM PRN use 08/07/22 11/06/23 billion cell capsule (Adult 50 with antibiotics Plus Probiotic) [id number] tablet 1 tab PO QAM 08/07/22 11/06/23 thiamine HCl (vitamin B1) 100 mg 100 mg PO QAM 02/05/23 11/06/23 tablet melatonin 5 mg capsule 5 mg PO HS PRN Sleep 02/16/23 11/06/23 acetaminophen 500 mg capsule 500 mg PO TID PRN Pain 08/21/23 11/06/23 latanoprost 0.005 % eye drops 1 drp ophthalmic (eye) QPM 08/21/23 11/06/23 doxycycline monohydrate 100 mg 100 mg PO BID 09/18/23 11/06/23 capsule upadacitinib 15 mg tablet,extended 15 mg PO DAILY 09/23/23 11/06/23 release 24 hr (Rinvoq) ranolazine 500 mg tablet,extended 500 mg PO BID 11/06/23 11/06/23 release,12 hr Previous Rx's Medication Instructions Recorded cholecalciferol (vitamin D3) 250 250 mcg PO DAILY 90 days #90 tabs 09/19/22 mcg (10,000 unit) tablet cyanocobalamin (vitamin B-12) 500 1,000 mcg (2 x 500 mcg) PO QAM #30 01/18/23 mcg tablet tabs folic acid 1 mg tablet 1 mg PO QAM #30 tabs 01/18/23 hydroxyzine HCl 10 mg tablet 10 mg PO HS PRN anxiety or 01/18/23 insomnia #14 tabs diclofenac sodium 1 % topical gel 2 g topical QID #200 grams 04/24/23 (Voltaren Arthritis Pain) apixaban 2.5 mg tablet (Eliquis) 2.5 mg PO BID #90 tabs 08/24/23 gabapentin 400 mg capsule 400 mg PO TID 30 days #90 caps 09/03/23 olmesartan 5 mg tablet 5 mg PO DAILY 90 days #90 tabs 09/03/23 pravastatin 40 mg tablet 40 mg PO DAILY #90 tabs 09/03/23 metoprolol tartrate 25 mg tablet 12.5 mg (1/2 x 25 mg) PO BID 30 09/24/23 days #30 tabs isosorbide mononitrate 60 mg 60 mg PO QAM #90 tabs 10/08/23 tablet,extended release 24 hr mirtazapine 30 mg tablet 30 mg PO DAILY #90 tabs 10/13/23 amiodarone 200 mg tablet 200 mg PO DAILY #90 tabs 10/23/23 esomeprazole magnesium 40 mg 40 mg PO HS #90 caps 10/23/23 capsule,delayed release (Nexium) ferrous sulfate 325 mg (65 mg 325 mg PO DAILY 90 days #90 tabs 10/23/23 iron) tablet,delayed release oxycodone 5 mg tablet 5 mg PO HS PRN Pain #20 tabs 10/28/23 duloxetine 60 mg capsule,delayed 60 mg PO QAM #90 caps 10/29/23 release furosemide 20 mg tablet 20 mg PO DAILY PRN edema or weight 10/29/23 gain #30 tabs Results & Data (ED) Vital Signs Vital Signs - 24 hr 11/05/23 22:57 11/05/23 23:09 11/05/23 23:16 Temperature 36.6 C Temperature Source Temporal Artery Scan Pulse Rate 75 71 66 Pulse Rate [Apical] Pulse Rhythm Regular Pulse Rhythm [Apical] Pulse Strength [Apical] Respiratory Rate 18 22 Respiratory Effort / Characteristics Non-Labored Respiratory Depth Normal Respiratory Pattern Blood Pressure 77/44 L Blood Pressure [Right Arm] Blood Pressure Mean 55 Blood Pressure Mean [Right Arm] Blood Pressure Position [Right Arm] Pulse Oximetry 98 92 Oxygen Delivery Method Room Air Room Air Sepsis Recent Fever Within 48 Hours Yes Sepsis New/Unexplained Change in Mental Status No Sepsis Action Taken by Nursing No Action Required 11/05/23 23:30 11/05/23 23:49 11/06/23 00:15 Temperature 36.9 C Temperature Source Oral Pulse Rate Pulse Rate [Apical] 68 67 66 Pulse Rhythm Pulse Rhythm [Apical] Regular Regular Regular Pulse Strength [Apical] Normal Normal Normal Respiratory Rate 18 18 18 Respiratory Effort / Characteristics Non-Labored Spontaneous Non-Labored Spontaneous Non-Labored Spontaneous Respiratory Depth Normal Normal Normal Respiratory Pattern Regular Regular Regular Blood Pressure Blood Pressure [Right Arm] 94/55 L 102/58 L 98/54 L Blood Pressure Mean Blood Pressure Mean [Right Arm] 68 72 68 Blood Pressure Position [Right Arm] Lying Lying Lying Pulse Oximetry 94 93 95 Oxygen Delivery Method Room Air Room Air Room Air Sepsis Recent Fever Within 48 Hours Sepsis New/Unexplained Change in Mental Status Sepsis Action Taken by Nursing 11/06/23 00:30 11/06/23 00:50 Temperature Temperature Source Pulse Rate Pulse Rate [Apical] 82 69 Pulse Rhythm Pulse Rhythm [Apical] Regular Regular Pulse Strength [Apical] Normal Normal Respiratory Rate 22 18 Respiratory Effort / Characteristics Non-Labored Spontaneous Non-Labored Spontaneous Respiratory Depth Normal Normal Respiratory Pattern Regular Regular Blood Pressure Blood Pressure [Right Arm] 98/52 L 102/58 L Blood Pressure Mean Blood Pressure Mean [Right Arm] 67 72 Blood Pressure Position [Right Arm] Semi-fowlers Lying Pulse Oximetry 95 95 Oxygen Delivery Method Room Air Room Air Sepsis Recent Fever Within 48 Hours Sepsis New/Unexplained Change in Mental Status Sepsis Action Taken by Nursing Laboratory Data 11/05/23 23:22 11/05/23 23:22 Lab Results 11/05/23 11/05/23 11/05/23 Range/Units 23:22 23:35 23:47 WBC 5.54 (4.8-10.8) K/ul RBC 4.20 L (4.70-6.10) M/uL Hgb 13.2 L (14.0-18.0) g/dl Hct 40.2 L (42.0-52.0) % MCV 95.7 (80.0-100.0) fL MCH 31.4 (25.0-34.0) pg MCHC 32.8 (32.0-36.0) g/dL RDW Std Deviation 71.7 H (36.4-46.3) fL RDW Coeff of Sammie 20.3 H (11.5-14.5) % Plt Count 278 (130-400) K/uL MPV 9.5 (9.4-12.4) fL Immature Gran % (Auto) 0.4 % Neut % (Auto) 73.1 % Lymph % (Auto) 17.7 % Hemphill % (Auto) 7.9 % Eos % (Auto) 0.7 % Baso % (Auto) 0.2 % Neut # (Auto) 4.05 (1.40-6.50) K/uL Lymph # (Auto) 0.98 L (1.20-3.40) K/uL Hemphill # (Auto) 0.44 (0.11-0.59) K/uL Eos # (Auto) 0.04 (0.00-0.50) K/uL Baso # (Auto) 0.01 (0.00-0.20) K/uL Immature Gran # (Auto) 0.02 (0.01-0.20) K/uL Polychromasia 1+ Anisocytosis Present PT 11.4 (9.0-12.0) Seconds INR 1.1 (0.9-1.1) VBG pH 7.40 (7.36-7.41) VBG pCO2 52 H (38-50) mmHg VBG pO2 20 mmHg VBG HCO3 32 mmol/L VBG O2 Saturation < 60.0 % VBG Base Excess 6.0 mEq/L Sodium 135 L (136-145) mmol/L Potassium 4.4 (3.5-5.1) mmol/L Chloride 97 L (98-107) mmol/L Carbon Dioxide 29 (21-32) mmol/L Anion Gap 9 (3-11) BUN 51 H (6-23) mg/dl Creatinine 1.64 H D (0.6-1.4) mg/dl Est Cr Clr Drug Dosing 46.6 ml/min Est GFR ( Amer) 45.4 ml/min Est GFR (Non-Af Amer) 39.2 ml/min BUN/Creatinine Ratio 31.1 H (10-20) Glucose 110 H (70-99(Fasting)) mg/dl Lactate 3.2 H* (0.4-2.0) mmol/L Calcium 9.0 (8.6-10.3) mg/dl Magnesium 1.9 (1.7-2.4) mg/dl Total Bilirubin 1.1 H (0.2-1.0) mg/dl Direct Bilirubin 0.2 (0-0.2) mg/dl AST 65 H (13-39) U/L ALT 51 (7-52) U/L Alkaline Phosphatase 53 (34-104) U/L Troponin I High Sens 66.0 H* (0-20) pg/ml Total Protein 6.9 (6.0-8.3) gm/dl Albumin 4.0 (3.4-5.0) gm/dl Procalcitonin 1.08 H (0-0.5) ng/ml Adenovirus (PCR) Not Detected (NotDetected) B. pertussis DNA (PCR) Not Detected (NotDetected) B.parapertussis DNA PCR Not Detected (NotDetected) C. pneumoniae DNA (PCR) Not Detected (NotDetected) Coronavirus OC43 (PCR) Not Detected (NotDetected) Coronavirus HKU1 (PCR) Not Detected (NotDetected) Coronavirus 229E (PCR) Not Detected (NotDetected) SARS-CoV-2 (PCR) Not Detected (NotDetected) Coronavirus NL63 (PCR) Not Detected (NotDetected) Human Metapneumovir PCR Not Detected (NotDetected) Influenza Type A (PCR) Not Detected (NotDetected) Influenza Type B (PCR) Not Detected (NotDetected) M. pneumoniae (PCR) Not Detected (NotDetected) Parainfluenza 1 (PCR) Not Detected (NotDetected) Parainfluenza 2 (PCR) Not Detected (NotDetected) Parainfluenza 3 (PCR) Not Detected (NotDetected) Parainfluenza 4 (PCR) Not Detected (NotDetected) RSV (PCR) Not Detected (NotDetected) Entero/Rhino (PCR) Not Detected (NotDetected) Administered Medications Discontinued Medications Sodium Chloride (Nss) 1,000 mls @ 999 mls/hr IV .Q1H1M ELDER Stop: 11/06/23 00:15 Last Infusion: 11/06/23 00:36 Dose: Infused Documented By: Admin: 11/05/23 23:32 Dose: 999 mls/hr Documented By: IDD Sodium Chloride (Nss) 1,000 mls @ 999 mls/hr IV .Q1H1M ONE Stop: 11/06/23 00:46 Last Admin: 11/06/23 00:05 Dose: 999 mls/hr Documented By: RUBENS Sodium Chloride (Nss) 500 mls @ 999 mls/hr IV .Q31M ONE Stop: 11/06/23 00:16 Last Admin: 11/06/23 00:05 Dose: 999 mls/hr Documented By: RUBENS Ceftriaxone Sodium (Rocephin) 2,000 mg in 50 mls @ 100 mls/hr IV NOW STA Stop: 11/06/23 00:15 Last Infusion: 11/06/23 00:36 Dose: Infused Documented By: Admin: 11/06/23 00:06 Dose: 100 mls/hr Documented By: RUBENS Vancomycin HCl 2,000 mg/ (Sodium Chloride) 540 mls @ 200 mls/hr IV NOW ONE Stop: 11/06/23 03:17 Last Admin: 11/06/23 00:52 Dose: Not Given Documented By: RUBENS Discharge Plan Visit Data Chief Complaint: Illness Stated Complaint: FELL IN SHOWER, R ARM HEMATOMA, OPEN FOOT SORES ED Provider: Mariaa Black Discharge Problem: Sepsis, Acute kidney injury superimposed on chronic kidney disease, Elevated procalcitonin, Generalized weakness Forms Stand Alone Forms: My [facility] [employer] Prescriptions Prescriptions: No Action acetaminophen 500 mg capsule 500 mg PO TID MDD 1,500 MG/24 HOURS PRN (Reason: Pain) doxycycline monohydrate 100 mg capsule 100 mg PO BID Rinvoq 15 mg tablet extended release 24 hr 15 mg PO DAILY Rx Instructions: patient states' I restarted it on my own" cholecalciferol (vitamin D3) 250 mcg (10,000 unit) tablet 250 mcg PO DAILY 90 Days Qty: 90 3RF Eliquis 2.5 mg tablet 2.5 mg PO BID Qty: 90 3RF gabapentin 400 mg capsule 400 mg PO TID 30 Days Qty: 90 5RF pravastatin 40 mg tablet 40 mg PO DAILY Qty: 90 3RF Rx Instructions: TAKE 1 TABLET BY MOUTH ONCE DAILY olmesartan 5 mg tablet 5 mg PO DAILY 90 Days Qty: 90 3RF metoprolol tartrate 25 mg tablet 12.5 mg PO BID 30 Days Qty: 30 5RF Rx Instructions: TAKE 1/2 TABLET BY MOUTH TWICE DAILY FOR YOUR HEART AND HIGH BLOOD PRESSURE isosorbide mononitrate 60 mg tablet extended release 24 hr 60 mg PO QAM Qty: 90 3RF amiodarone 200 mg tablet 200 mg PO DAILY Qty: 90 3RF Rx Instructions: TAKE 1 TABLET BY MOUTH ONCE DAILY esomeprazole magnesium [Nexium] 40 mg capsule,delayed release(DR/EC) 40 mg PO HS Qty: 90 3RF ferrous sulfate 325 mg (65 mg iron) tablet,delayed release (DR/EC) 325 mg PO DAILY 90 Days Qty: 90 3RF oxycodone 5 mg tablet 5 mg PO HS PRN (Reason: Pain) Qty: 20 0RF duloxetine 60 mg capsule,delayed release(DR/EC) 60 mg PO QAM Qty: 90 3RF furosemide 20 mg tablet 20 mg PO DAILY PRN (Reason: edema or weight gain) Qty: 30 5RF latanoprost 0.005 % drops 1 drp ophthalmic (eye) QPM senna 8.6 mg capsule 8.6 mg PO AMHS diclofenac sodium [Voltaren Arthritis Pain] 1 % gel 2 g topical QID Qty: 200 2RF mirtazapine 30 mg tablet 30 mg PO DAILY Qty: 90 3RF aspirin [Adult Low Dose Aspirin] 81 mg tablet,delayed release (DR/EC) 81 mg PO QAM Hold Instructions: Resume on 02/23/23. until PCP/surgery followup [id number]-lhyhmjd-begn-lutein Tablet 1 tab PO QAM coenzyme Q10 100 mg capsule 100 mg PO QAM Adult 50 Plus Probiotic 4 billion cell capsule 6,000 mmu cells PO QAM PRN (Reason: use with antibiotics) Rx Instructions: administer with a meal ascorbic acid (vitamin C) 500 mg capsule 1,000 mg PO QAM melatonin 5 mg capsule 5 mg PO HS PRN (Reason: Sleep) cyanocobalamin (vitamin B-12) 500 mcg Tablet 1,000 mcg PO QAM Qty: 30 0RF hydroxyzine HCl 10 mg Tablet 10 mg PO HS PRN (Reason: anxiety or insomnia) Qty: 14 0RF folic acid 1 mg Tablet 1 mg PO QAM Qty: 30 0RF thiamine HCl (vitamin B1) 100 mg tablet 100 mg PO QAM ranolazine 500 mg tablet extended release 12 hr 500 mg PO BID Rx Instructions: TAKE 1 TABLET BY MOUTH TWICE DAILY Referrals Referrals: Danny Soliman DO [Primary Care Provider] -
[2023-11-05] MEDS: SODIUM CHLORIDE 0.9% 1,000 ML IV SCH (23:32)
[2023-11-05 23:42] LABS: HCO3 VBG 32 mmol/L; Oxygen Saturation VBG < 60.0 %; PCO2 VBG 52 mmHg (38-50); PO2 VBG 20 mmHg
[2023-11-05 23:46] LABS: Basophils # (auto) 0.01 K/uL (0.00-0.20); Basophils % (auto) 0.2 %; Eosinophils # (auto) 0.04 K/uL (0.00-0.50); Eosinophils % (auto) 0.7 %; Hematocrit (blood only) 40.2 % (42.0-52.0); Hemoglobin 13.2 g/dl (14.0-18.0); Immature Granulocytes # (auto) 0.02 K/uL (0.01-0.20); Immature Granulocytes % (auto) 0.4 %; Lymphocytes # (auto) 0.98 K/uL (1.20-3.40); Lymphocytes % (auto) 17.7 %; Mean Corpuscular Hemoglobin 31.4 pg (25.0-34.0); Mean Corpuscular Hgb Conc 32.8 g/dL (32.0-36.0); Mean Corpuscular Volume 95.7 fL (80.0-100.0); Mean Platelet Volume 9.5 fL (9.4-12.4); Monocytes # (auto) 0.44 K/uL (0.11-0.59); Monocytes % (auto) 7.9 %; Neutrophils # (auto) 4.05 K/uL (1.40-6.50); Neutrophils % (auto) 73.1 %; Platelet Count 278 K/uL (130-400); RDW Coefficient of Variation 20.3 % (11.5-14.5); RDW Standard Deviation 71.7 fL (36.4-46.3); White Blood Count 5.54 K/ul (4.8-10.8)
[2023-11-06 00:04] LABS: BUN Creatinine Ratio 31.1 (10-20); Bilirubin Direct 0.2 mg/dl (0-0.2); Bilirubin,Total 1.1 mg/dl (0.2-1.0); Creatinine Clr Calc Pharmacy 46.6 ml/min; Est GFR (African American) 45.4 ml/min; Est GFR (Non-African American) 39.2 ml/min; Magnesium 1.9 mg/dl (1.7-2.4); Potassium 4.4 mmol/L (3.5-5.1); Total Protein 6.9 gm/dl (6.0-8.3)
[2023-11-06] MEDS: SODIUM CHLORIDE 0.9% 500 ML IV ONE (00:05)
[2023-11-06] MEDS: SODIUM CHLORIDE 0.9% 1,000 ML IV ONE (00:05)
[2023-11-06] MEDS: cefTRIAXone SODIUM 2,000 MG/50 ML BAG IV STA (00:06)
[2023-11-06 00:14] LABS: INR 1.1 (0.9-1.1); Prothrombin Time 11.4 Seconds (9.0-12.0)
[2023-11-06 00:29] LABS: Anisocytosis Present; Polychromasia 1+
[2023-11-06] MEDS ORDERED: VANCOMYCIN CONSULT ACTIVE PRN (00:36)
[2023-11-06] MEDS: fentaNYL citrate PF 100 MCG/2 ML VIAL IV STA (00:50)
[2023-11-06] MEDS: VANCOMYCIN HCL 2,000 MG in SODIUM CHLORIDE 0.9% 500 ML IV ONE (00:52)
[2023-11-06 01:00] LABS: Adenovirus PCR Not Detected (NotDetected); Bordetella parapertussis PCR Not Detected (NotDetected); Bordetella pertussis PCR Not Detected (NotDetected); Chlamydia pneumoniae PCR Not Detected (NotDetected); Coronavirus 229E PCR Not Detected (NotDetected); Coronavirus CoV-2 (COVID19)PCR Not Detected (NotDetected); Coronavirus HKU1 PCR Not Detected (NotDetected); Coronavirus NL63 PCR Not Detected (NotDetected); Coronavirus OC43PCR Not Detected (NotDetected); Human Metapneumovirus PCR Not Detected (NotDetected); Influenza A PCR Not Detected (NotDetected); Influenza B PCR Not Detected (NotDetected); Mycoplasma pneumoniae PCR Not Detected (NotDetected); Parainfluenza Virus 1 PCR Not Detected (NotDetected); Parainfluenza Virus 2 PCR Not Detected (NotDetected); Parainfluenza Virus 3 PCR Not Detected (NotDetected); Parainfluenza Virus 4 PCR Not Detected (NotDetected); Respiratory Syncytial VirusPCR Not Detected (NotDetected); Rhinovirus/Enterovirus PCR Not Detected (NotDetected)
[2023-11-06] MEDS: DAPTOmycin 550 MG in SYRINGE 0 ML IV SCH (01:42)
--- NOTE | 2023-11-06 01:48 | History & Physical Report ---
Date of Service November 06, 2023 Assessment & Plan (1) Sepsis due to skin infection: (2) Venous stasis ulcers of both lower extremities: (3) Cellulitis of right lower extremity: (4) Skin tear of right upper extremity: (5) Acute kidney injury superimposed on chronic kidney disease: (6) Open wound of left foot: (7) Open wound of right foot: (8) Skin tear of right hand without complication: (9) Venous ulcer of left leg: (10) History of immunosuppressive therapy: (11) Generalized weakness: (12) Atrial fibrillation: (13) HFrEF (heart failure with reduced ejection fraction): (14) Rheumatoid arthritis: (15) Coronary artery disease: Plan Sepsis due to skin infections/hypotension- Bilateral venous ulcers, right lower extremity cellulitis, multiple skin abrasions Due to history of MRSA bacteremia and immunocompromise state, place on daptomycin IV cefepime IV Hold doxycycline for now Consult wound care, whom he has been following with in the outpatient setting Blood pressure had bottomed out to 77/44, but has responded to IV fluid rehydration, following 2 L normal saline from the ED, and NSS at 80 mL/h x 1 additional liter Admit to monitored bed closely follow blood pressure JEFFERY superimposed on CKD- Creatinine 1.64, with base 1.25 Stopped vancomycin in the ED before being given, and placed on daptomycin IV instead IV fluid resuscitation as noted, recheck laboratories in a.m. History of left TKA septic arthritis/bilateral TKAs/recent right FRANCIS dislocation and repositioning/MRSA bacteremia- No suggestion currently of infection at the sites, however, is at risk for reseeding Elevated troponin/CAD/HFpEF/atrial fibrillation- Troponin initially 66, follow-up 5.8 Continue amiodarone, apixaban, aspirin and ranolazine Temporarily hold metoprolol to tartrate, losartan and isosorbide mononitrate until blood pressure improves Rheumatoid arthritis/immunocompromised state- Patient's son will bring the patient's Rinvok in since it is nonformulary Continue folic acid Peripheral neuropathy- Continue gabapentin Anxiety and depression- Continue duloxetine, melatonin, mirtazapine, History of Present Illness Chief Complaint: The patient presents to the emergency department with fevers, chills, shakes, progressive fatigue and worsening discomfort in his lower extremities over the past few days, in particular over the past 24 hours Primary Care Provider: Danny Janny, DO The patient is a 77-year-old male with a past medical history including multiple skin tears on upper extremities and lower extremities, bilateral venous ulcers consistent with venous insufficiency, bilateral knee abrasions, MRSA bacteremia, right FRANCIS dislocated and repositioned in the OR on 10/20/2023, rotator cuff arthropathy bilaterally, immunocompromised on Rinvok for RA, hypertension, CAD, HFpEF, bilateral total knee arthroplasties, history of left natural knee septic arthritis prior to recent left TKA septic arthritis, following with wound care as outpatient for chronic lower extremity venous ulcers, and adjustment disorder with mixed anxiety and depressed mood. The patient presents to the emergency department with progressively worsening fevers, chills, shakes, fatigue and worsening of lower extremity venous ulcerations and increasing erythema of right lower extremity. Allergies Allergy/AdvReac Type Severity Reaction Status Date / Time cat dander Allergy Severe CAT Verified 11/06/23 00:03 HAIR---Swelling of Lip/Tongue/Throat Home Medications Medication Instructions Recorded Confirmed Type sennosides 8.6 mg capsule (senna) 8.6 mg PO AMHS 06/19/22 11/06/23 History ascorbic acid (vitamin C) 500 mg 1,000 mg PO QAM 08/07/22 11/06/23 History capsule aspirin 81 mg tablet,delayed 81 mg PO QAM 08/07/22 11/06/23 History release (Adult Low Dose Aspirin) coenzyme Q10 100 mg capsule 100 mg PO QAM 08/07/22 11/06/23 History lactobacillus combination no.9 4 6,000 mmu cells PO QAM PRN use 08/07/22 11/06/23 History billion cell capsule (Adult 50 with antibiotics Plus Probiotic) [id number]-[id number]-[id number]-lutein tablet 1 tab PO QAM 08/07/22 11/06/23 History cholecalciferol (vitamin D3) 250 250 mcg PO DAILY 90 days #90 tabs 09/19/22 11/06/23 Rx mcg (10,000 unit) tablet cyanocobalamin (vitamin B-12) 500 1,000 mcg (2 x 500 mcg) PO QAM #30 01/18/23 11/06/23 Rx mcg tablet tabs folic acid 1 mg tablet 1 mg PO QAM #30 tabs 01/18/23 11/06/23 Rx hydroxyzine HCl 10 mg tablet 10 mg PO HS PRN anxiety or 01/18/23 11/06/23 Rx insomnia #14 tabs thiamine HCl (vitamin B1) 100 mg 100 mg PO QAM 02/05/23 11/06/23 History tablet melatonin 5 mg capsule 5 mg PO HS PRN Sleep 02/16/23 11/06/23 History diclofenac sodium 1 % topical gel 2 g topical QID #200 grams 04/24/23 11/06/23 Rx (Voltaren Arthritis Pain) acetaminophen 500 mg capsule 500 mg PO TID PRN Pain 08/21/23 11/06/23 History latanoprost 0.005 % eye drops 1 drp ophthalmic (eye) QPM 08/21/23 11/06/23 History apixaban 2.5 mg tablet (Eliquis) 2.5 mg PO BID #90 tabs 08/24/23 11/06/23 Rx gabapentin 400 mg capsule 400 mg PO TID 30 days #90 caps 09/03/23 11/06/23 Rx olmesartan 5 mg tablet 5 mg PO DAILY 90 days #90 tabs 09/03/23 11/06/23 Rx pravastatin 40 mg tablet 40 mg PO DAILY #90 tabs 09/03/23 11/06/23 Rx doxycycline monohydrate 100 mg 100 mg PO BID 09/18/23 11/06/23 History capsule upadacitinib 15 mg tablet,extended 15 mg PO DAILY 09/23/23 11/06/23 History release 24 hr (Rinvoq) metoprolol tartrate 25 mg tablet 12.5 mg (1/2 x 25 mg) PO BID 30 09/24/23 11/06/23 Rx days #30 tabs isosorbide mononitrate 60 mg 60 mg PO QAM #90 tabs 10/08/23 11/06/23 Rx tablet,extended release 24 hr mirtazapine 30 mg tablet 30 mg PO DAILY #90 tabs 10/13/23 11/06/23 Rx amiodarone 200 mg tablet 200 mg PO DAILY #90 tabs 10/23/23 11/06/23 Rx esomeprazole magnesium 40 mg 40 mg PO HS #90 caps 10/23/23 11/06/23 Rx capsule,delayed release (Nexium) ferrous sulfate 325 mg (65 mg 325 mg PO DAILY 90 days #90 tabs 10/23/23 11/06/23 Rx iron) tablet,delayed release oxycodone 5 mg tablet 5 mg PO HS PRN Pain #20 tabs 10/28/23 11/06/23 Rx duloxetine 60 mg capsule,delayed 60 mg PO QAM #90 caps 10/29/23 11/06/23 Rx release furosemide 20 mg tablet 20 mg PO DAILY PRN edema or weight 10/29/23 11/06/23 Rx gain #30 tabs ranolazine 500 mg tablet,extended 500 mg PO BID 11/06/23 11/06/23 History release,12 hr Past Med/Surg History Problem List (Updated 11/06/23 @ 05:47 by Himanshu Weinstein MD) Cellulitis of right lower extremity Sepsis due to skin infection Generalized weakness (Acute) Elevated procalcitonin (Acute) Acute kidney injury superimposed on chronic kidney disease (Acute) Sepsis (Acute) Skin tear of right upper extremity (Acute) Open wound of left foot (Acute) Open wound of right foot (Acute) Skin tear of right hand without complication (Acute) Venous ulcer of left leg (Acute) Traumatic open wound of right lower leg (Acute) Elevated LFTs Venous stasis ulcers of both lower extremities MRSA bacteremia Dislocation, hip closed (Acute) Dislocation, hip, posterior Rotator cuff arthropathy of both shoulders Idiopathic polyneuropathy Abrasion of right knee (Acute) History of immunosuppressive therapy Pain of right hip Prophylactic antibiotic History of sepsis Left shoulder pain Acquired foot deformity (Chronic) Traumatic wound (Acute) Pressure ulcer of left foot, stage 3 (Acute) Abnormal ankle brachial index (Acute) Right knee pain Cellulitis of knee, right (Acute) Non-ST elevation [place] (NSTEMI) (Acute) Leukocytosis (Acute) Sepsis (Acute) Myoclonus Cervical radiculopathy Neuropathy Weakness On amiodarone therapy Weakness of right hip DVT prophylaxis Constipation Acute on chronic diastolic congestive heart failure Sepsis following procedure Wheezing Rhabdomyolysis MRSA infection History of CHF (congestive heart failure) Visual disturbance Hyponatremia Hypotension Acute metabolic encephalopathy Severe sepsis Abdominal wall abscess (Acute) Atrial fibrillation HFrEF (heart failure with reduced ejection fraction) EF 40% Mar 2022, improved 55-60% August 2022 Lumbar stenosis Osteoarthritis of right knee Anxiety and depression GERD (gastroesophageal reflux disease) Hypertension Rheumatoid arthritis Anemia (Acute) Coronary artery disease Pre-operative cardiovascular examination, myocardial ischemia Atherogenic dyslipidemia Heart failure with preserved ejection fraction Fall Lumbar radiculopathy Low back pain Lower extremity weakness Degenerative spondylolisthesis Parainfluenza virus bronchitis Chronic low back pain Scoliosis of lumbar region due to degenerative disease of spine in adult Dislocation of hip, right, closed (Acute) Septic joint of right knee joint COVID-19 (Acute) Incisional hernia Incarcerated intra-abdominal hernia (Acute) Abdominal pain (Acute) Adjustment disorder with mixed anxiety and depressed mood Sepsis (Acute) Elevated lactic acid level (Acute) Medical History History of immunosuppressive therapy Pain of right hip Prophylactic antibiotic History of sepsis Injury of left rotator cuff Left shoulder pain Abdominal wall abscess Incisional hernia Lumbar radiculopathy Sepsis 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 knee, occurrred during atrial fibrillation episode. "when he woke up, he couldn't walk." Atrial fibrillation episode occurred in 03/2022, taken to [facility], admitted to ICU for 1-2 weeks (was not intubated, but wasn't "awake either"), then to cardiac unit, then to rehab at [facility]; f/u dr. guerra in [place]>will be starting to see a carpet layer helper at [facility] 2nd week of 08/2022 Myocardial Infarction "a silent one, 2019" Sleep apnea no device GERD (gastroesophageal reflux disease) Anxiety and depression HFrEF (heart failure with reduced ejection fraction) EF 40% Mar 2022, improved 55-60% August 2022 Surgical History Hx of Achilles tendon repair rt. Hx of knee surgery rt. patellar tendon repair Hx of rotator cuff surgery bilateral Hx of total knee replacement lt. Hx of total hip arthroplasty rt. History of colostomy reversal History of bowel resection for diverticulitis; w/colostomy placement for 3-4 months Hx of hernia repair near former colostomy site History of esophagogastroduodenoscopy (EGD) Hx of colonoscopy Last Colonoscopy 08/14/22, repeat 3 years in 2025 Hx of bilateral cataract extraction History of heart artery stent ~3 years ago, x2 stents, done in [place]; f/u dr guerra, [place]>will be seeing new cardio at [facility] August 2022. History of cardiac cath ~3 years ago, SOB and "felt like throat was constricting", had "silent heart attack", x2 stents, done in [place] Family History Grandmother (Maternal) Diabetes Daughter Diabetes Father Suicide Hypertension Denies family history of Ovarian cancer Prostate cancer Myocardial infarction Breast cancer Lung cancer Colorectal cancer Stroke Social History Smoking Status: Never smoker Second Hand Exposure: No; Do You Dip or Chew Tobacco: No; Hx Alcohol Use: Yes Alcohol type: wine Alcohol Intake Frequency: 4 or More x per/Week Hx Substance Use: No Preferred Language: Mauritian Communication Ability: Effective Visual Impairment: Limited Hearing Ability: Normal Planner Chief Required: No Beliefs That Will Affect Care: None marital status: Single Current Living Situation: Alone Current Living Situation Comment: Alone at [facility] at [facility] current occupational status: retired How many Children do You have: 2 Feels Safe at Home: Yes Childhood Exposure to Second-Hand Smoke: Yes caffeine: Yes Dental Care, Regularly: Yes Physical Activity Frequency: Does not Exercise Seatbelt Use: always Sunscreen Use: Yes Assistive Devices: Glasses, Raised Toilet Seat and Wheelchair Review of Systems Review of Systems: The patient denies chest pain, palpitations, cough, sore throat, fevers, chills, sweats, nausea, vomiting, diarrhea , constipation, abdominal pain, pelvic pain, blood in urine or stool, dysuria, urinary frequency or urgency, headache, memory loss, loss of consciousness, focal or generalized weakness, numbness or tingling in arms, or neck pain. The review of systems is otherwise negative other than for that already noted above, and at least 10 systems have been reviewed. Physical Exam Physical Exam: The patient is awake, alert and oriented 3, appears fatigued, normocephalic and atraumatic, lying in bed and in no acute distress. HEENT--PERRL, EOMI, mucous membranes and oropharynx dry. Neck--supple. No JVD. No bruits. Thyroid normal, trachea midline, no adenopathy. Heart--normal S1 and S2. No murmurs, rubs or gallops. Lungs--clear bilaterally, no respiratory distress, no accessory muscle use. Abdomen--normal bowel sounds and soft. Nontender. Nondistended. Morbidly obese Extremities--chronic venous stasis changes bilaterally. Moderately severe erythema and warmth right lower extremity with multiple skin abrasions. Left lower extremity multiple skin abrasions. Bilateral knee abrasions. Dermatologic--multiple lower extremity abrasions bilaterally, right worse than left. Upper extremities with abrasion dorsum of right hand and lateral 3 fingers. Neurologic--cranial nerves II through XII grossly intact. Rheumatologic--limited exam Psychiatric--normal affect. Results & Data Results & Data Vital Signs (Past 12 Hours) Vital Signs Temp Pulse Pulse Resp BP BP Pulse Ox 11/06/23 01:30 69 22 98/62 L 94 11/06/23 00:50 69 18 102/58 L 95 11/06/23 00:30 82 22 98/52 L 95 11/06/23 00:15 36.9 C 66 18 98/54 L 95 11/05/23 23:49 67 18 102/58 L 93 11/05/23 23:30 68 18 94/55 L 94 11/05/23 23:16 66 22 92 11/05/23 23:09 71 11/05/23 22:57 36.6 C 75 18 77/44 L 98 O2 Del Method 11/06/23 01:30 Room Air 11/06/23 00:50 Room Air 11/06/23 00:30 Room Air 11/06/23 00:15 Room Air 11/05/23 23:49 Room Air 11/05/23 23:30 Room Air 11/05/23 23:16 Room Air 11/05/23 23:09 11/05/23 22:57 Room Air Laboratory Results Laboratory Results WBC 4.75 K/ul (4.8-10.8) L 11/06/23 04:33 RBC 3.62 M/uL (4.70-6.10) L 11/06/23 04:33 Hgb 11.6 g/dl (14.0-18.0) L 11/06/23 04:33 Hct 34.2 % (42.0-52.0) L 11/06/23 04:33 MCV 94.5 fL (80.0-100.0) 11/06/23 04:33 MCH 32.0 pg (25.0-34.0) 11/06/23 04:33 MCHC 33.9 g/dL (32.0-36.0) 11/06/23 04:33 RDW Std Deviation 70.6 fL (36.4-46.3) H 11/06/23 04:33 RDW Coeff of Sammie 20.2 % (11.5-14.5) H 11/06/23 04:33 Plt Count 142 K/uL (130-400) 11/06/23 04:33 MPV 10.2 fL (9.4-12.4) 11/06/23 04:33 Immature Gran % (Auto) 1.3 % 11/06/23 04:33 Neut % (Auto) 73.5 % 11/06/23 04:33 Lymph % (Auto) 16.8 % 11/06/23 04:33 Larue % (Auto) 6.9 % 11/06/23 04:33 Eos % (Auto) 1.1 % 11/06/23 04:33 Baso % (Auto) 0.4 % 11/06/23 04:33 Neut # (Auto) 3.49 K/uL (1.40-6.50) 11/06/23 04:33 Lymph # (Auto) 0.80 K/uL (1.20-3.40) L 11/06/23 04:33 Larue # (Auto) 0.33 K/uL (0.11-0.59) 11/06/23 04:33 Eos # (Auto) 0.05 K/uL (0.00-0.50) 11/06/23 04:33 Baso # (Auto) 0.02 K/uL (0.00-0.20) 11/06/23 04:33 Immature Gran # (Auto) 0.06 K/uL (0.01-0.20) 11/06/23 04:33 Polychromasia 1+ 11/05/23 23:22 Anisocytosis Present 11/05/23 23:22 Rouleaux 1+ 11/06/23 04:33 PT 11.4 Seconds (9.0-12.0) 11/05/23 23:22 INR 1.1 (0.9-1.1) 11/05/23 23:22 VBG pH 7.40 (7.36-7.41) 11/05/23 23:35 VBG pCO2 52 mmHg (38-50) H 11/05/23 23:35 VBG pO2 20 mmHg 11/05/23 23:35 VBG HCO3 32 mmol/L 11/05/23 23:35 VBG O2 Saturation < 60.0 % 11/05/23 23:35 VBG Base Excess 6.0 mEq/L 11/05/23 23:35 Sodium 134 mmol/L (136-145) L 11/06/23 04:33 Potassium 4.8 mmol/L (3.5-5.1) 11/06/23 04:33 Chloride 102 mmol/L (98-107) 11/06/23 04:33 Carbon Dioxide 24 mmol/L (21-32) 11/06/23 04:33 Anion Gap 8 (3-11) 11/06/23 04:33 BUN 44 mg/dl (6-23) H 11/06/23 04:33 Creatinine 1.28 mg/dl (0.6-1.4) D 11/06/23 04:33 Est Cr Clr Drug Dosing 61.7 ml/min 11/06/23 04:33 Est GFR ( Amer) 61.3 ml/min 11/06/23 04:33 Est GFR (Non-Af Amer) 52.9 ml/min 11/06/23 04:33 BUN/Creatinine Ratio 34.4 (10-20) H 11/06/23 04:33 Glucose 105 mg/dl (70-99(Fasting)) H 11/06/23 04:33 Lactate 1.3 mmol/L (0.4-2.0) 11/06/23 01:30 Calcium 7.6 mg/dl (8.6-10.3) L 11/06/23 04:33 Phosphorus 3.1 mg/dl (2.5-4.9) 11/06/23 04:33 Magnesium 1.8 mg/dl (1.7-2.4) 11/06/23 04:33 Total Bilirubin 1.1 mg/dl (0.2-1.0) H 11/05/23 23:22 Direct Bilirubin 0.2 mg/dl (0-0.2) 11/05/23 23:22 AST 65 U/L (13-39) H 11/05/23 23:22 ALT 51 U/L (7-52) 11/05/23 23:22 Alkaline Phosphatase 53 U/L (34-104) 11/05/23 23:22 Troponin I High Sens 55.8 pg/ml (0-20) H* D 11/06/23 01:30 Total Protein 6.9 gm/dl (6.0-8.3) 11/05/23 23:22 Albumin 3.6 gm/dl (3.4-5.0) 11/06/23 04:33 Procalcitonin 1.08 ng/ml (0-0.5) H 11/05/23 23:22 Adenovirus (PCR) Not Detected (NotDetected) 11/05/23 23:47 B. pertussis DNA (PCR) Not Detected (NotDetected) 11/05/23 23:47 B.parapertussis DNA PCR Not Detected (NotDetected) 11/05/23 23:47 C. pneumoniae DNA (PCR) Not Detected (NotDetected) 11/05/23 23:47 Coronavirus OC43 (PCR) Not Detected (NotDetected) 11/05/23 23:47 Coronavirus HKU1 (PCR) Not Detected (NotDetected) 11/05/23 23:47 Coronavirus 229E (PCR) Not Detected (NotDetected) 11/05/23 23:47 SARS-CoV-2 (PCR) Not Detected (NotDetected) 11/05/23 23:47 Coronavirus NL63 (PCR) Not Detected (NotDetected) 11/05/23 23:47 Human Metapneumovir PCR Not Detected (NotDetected) 11/05/23 23:47 Influenza Type A (PCR) Not Detected (NotDetected) 11/05/23 23:47 Influenza Type B (PCR) Not Detected (NotDetected) 11/05/23 23:47 M. pneumoniae (PCR) Not Detected (NotDetected) 11/05/23 23:47 Parainfluenza 1 (PCR) Not Detected (NotDetected) 11/05/23 23:47 Parainfluenza 2 (PCR) Not Detected (NotDetected) 11/05/23 23:47 Parainfluenza 3 (PCR) Not Detected (NotDetected) 11/05/23 23:47 Parainfluenza 4 (PCR) Not Detected (NotDetected) 11/05/23 23:47 RSV (PCR) Not Detected (NotDetected) 11/05/23 23:47 Entero/Rhino (PCR) Not Detected (NotDetected) 11/05/23 23:47 Code Status & VTE Plan Code Status Full code VTE Prophylaxis Plan VTE Prophylaxis will be ordered: Yes PG Care Time/CCT Total # of Minutes Spent Total Time Spent with Patient: Total time spent is greater than 50% in coordination of care (as documented) at patient's floor/unit and/or counseling patient: Coding Level of Care Code 05733 INT INP/OBS CARE 3/75MIN Diagnoses Sepsis due to skin infection A41.9; L08.9 Venous stasis ulcers of both lower extremities I83.019; I83.029; L97.919; L97.929 Cellulitis of right lower extremity L03.115 Skin tear of right upper extremity S41.111A Acute kidney injury superimposed on chronic kidney disease N17.9; N18.9 Open wound of left foot, subsequent encounter S91.302D Encounter type: subsequent encounter Open wound of right foot, subsequent encounter S91.301D Encounter type: subsequent encounter Skin tear of right hand without complication, subsequent encounter S61.411D Encounter type: subsequent encounter Venous ulcer of left leg I83.029; L97.929 History of immunosuppressive therapy Z92.25 Generalized weakness R53.1 Atrial fibrillation I48.91 HFrEF (heart failure with reduced ejection fraction) I50.20 Rheumatoid arthritis, involving unspecified site, unspecified whether rheumatoid factor present M06.9 Rheumatoid arthritis location: unspecified site Rheumatoid factor presence: unspecified presence Coronary artery disease I25.10 (6) Open wound of left foot Encounter type: subsequent encounter Qualified Code(s): S91.302D - Unspecified open wound, left foot, subsequent encounter (7) Open wound of right foot Encounter type: subsequent encounter Qualified Code(s): S91.301D - Unspecified open wound, right foot, subsequent encounter (8) Skin tear of right hand without complication Encounter type: subsequent encounter Qualified Code(s): S61.411D - Laceration without foreign body of right hand, subsequent encounter (14) Rheumatoid arthritis Rheumatoid arthritis location: unspecified site Rheumatoid factor presence: unspecified presence Qualified Code(s): M06.9 - Rheumatoid arthritis, unspecified
[2023-11-06] MEDS: DAPTOmycin 500 MG in SYRINGE 0 ML IV STA (02:22)
[2023-11-06] MEDS ORDERED: [UNRECOGNIZED DRUG - OTHER] PO PRN (04:10)
[2023-11-06] MEDS ORDERED: ONDANSETRON INJ 2 MG/ML 2 ML VIAL IV PRN (04:10)
[2023-11-06] MEDS: oxyCODONE HCL IR 5 MG TAB (IMMEDIATE RELEASE) PO PRN (04:51)
[2023-11-06] MEDS: SODIUM CHLORIDE 0.9% 1,000 ML IV SCH (04:54)
[2023-11-06 04:58] LABS: Hematocrit (blood only) 34.2 % (42.0-52.0); Hemoglobin 11.6 g/dl (14.0-18.0); Mean Corpuscular Hgb Conc 33.9 g/dL (32.0-36.0); Mean Corpuscular Volume 94.5 fL (80.0-100.0); Mean Platelet Volume 10.2 fL (9.4-12.4); Platelet Count 142 K/uL (130-400); RDW Coefficient of Variation 20.2 % (11.5-14.5); RDW Standard Deviation 70.6 fL (36.4-46.3); Red Blood Count 3.62 M/uL (4.70-6.10); White Blood Count 4.75 K/ul (4.8-10.8)
[2023-11-06 05:18] LABS: Albumin Level 3.6 gm/dl (3.4-5.0); Calcium 7.6 mg/dl (8.6-10.3); Magnesium 1.8 mg/dl (1.7-2.4); Potassium 4.8 mmol/L (3.5-5.1)
[2023-11-06 05:24] LABS: BUN Creatinine Ratio 34.4 (10-20); Creatinine Clr Calc Pharmacy 61.7 ml/min; Est GFR (African American) 61.3 ml/min; Est GFR (Non-African American) 52.9 ml/min; Phosphorus 3.1 mg/dl (2.5-4.9)
[2023-11-06 05:31] LABS: Basophils # (auto) 0.02 K/uL (0.00-0.20); Basophils % (auto) 0.4 %; Eosinophils # (auto) 0.05 K/uL (0.00-0.50); Eosinophils % (auto) 1.1 %; Immature Granulocytes # (auto) 0.06 K/uL (0.01-0.20); Immature Granulocytes % (auto) 1.3 %; Lymphocytes % (auto) 16.8 %; Monocytes # (auto) 0.33 K/uL (0.11-0.59); Monocytes % (auto) 6.9 %; Neutrophils # (auto) 3.49 K/uL (1.40-6.50); Neutrophils % (auto) 73.5 %; Rouleaux 1+
[2023-11-06] MEDS: CEFEPIME 2,000 MG in SYRINGE 0 ML IV SCH (06:49)
[2023-11-06] MEDS: APIXABAN 2.5 MG TAB PO SCH (08:44)
[2023-11-06] MEDS: CYANOCOBALAMIN (B-12) 500 MCG TABLET PO SCH (08:44)
[2023-11-06] MEDS: FOLIC ACID 1 MG TAB PO SCH (08:45)
[2023-11-06] MEDS: GABAPENTIN 400 MG CAP PO SCH (08:45)
[2023-11-06] MEDS: FERROUS SULFATE 325 MG TAB PO SCH (08:45)
--- NOTE | 2023-11-06 08:45 | Electrocardiogram Report ---
Test Reason : Blood Pressure : / mmHG Vent. Rate : 073 BPM Atrial Rate : 073 BPM P-R Int : 190 ms QRS Dur : 118 ms QT Int : 398 ms P-R-T Axes : 026 -38 034 degrees QTc Int : 438 ms Sinus rhythm with occasional Premature ventricular complexes Left axis deviation Non-specific intra-ventricular conduction delay Nonspecific ST abnormality Abnormal ECG When compared with ECG of 19-OCT-2023 18:10, Premature ventricular complexes are now Present Confirmed by Jong Watson ([id number]) on 11/06/2023 8:45:08 AM Referred By: REFERRED SELF Confirmed By:Jong Watson
[2023-11-06] MEDS: SENNA 8.6 MG TAB PO SCH (08:46)
[2023-11-06] MEDS: DULoxetine HCL 60 MG CAP PO SCH (08:46)
[2023-11-06] MEDS: THIAMINE HCL 100 MG TAB PO SCH (08:46)
[2023-11-06] MEDS: AMIODARONE 200 MG TAB PO SCH (08:47)
[2023-11-06] MEDS: ASCORBIC ACID 500 MG TAB PO SCH (08:47)
[2023-11-06] MEDS: ASPIRIN 81 MG ECTAB PO SCH (08:50)
[2023-11-06] MEDS: CHOLECALCIFEROL 125 MCG (5,000 UNITS) TAB PO SCH (08:50)
[2023-11-06] MEDS: ISOSORBIDE MONO EXTENDED REL 60 MG TABCR PO SCH (08:51)
[2023-11-06] MEDS: METOPROLOL TARTRATE 25 MG TAB PO SCH (08:52)
[2023-11-06] MEDS: MIRTAZAPINE TAB 15 MG TAB PO SCH (08:53)
[2023-11-06] MEDS: RANOLAZINE 500 MG ER TAB PO SCH (08:54)
[2023-11-06] MEDS: PRAVASTATIN SOD 40 MG TAB PO SCH (08:54)
[2023-11-06] MEDS ORDERED: NON-FORMULARY MEDICATION (Coenzyme Q10 100 mg capsule) PO SCH (09:00)
[2023-11-06] MEDS ORDERED: MULTIVIT MINERAL IRON LUTEIN PO SCH (09:00)
--- NOTE | 2023-11-06 09:17 | XRay Report ---
XR chest 1V portable CLINICAL HISTORY: Sepsis TECHNIQUE: Single frontal radiograph of the chest was obtained. Comparison: Comparison is made to chest radiograph 06/29/2023 FINDINGS: No lines and tubes are seen. The cardiomediastinal silhouette is normal. The lungs are clear. No evid ence of pleural effusion or pneumothorax. IMPRESSION: No acute abnormalities and in particular no radiographic evidence of pneumonia. ACT 112: Negative or not required by law. Electronically signed by: Ramón You M.D. 11/06/2023 9:16 AM
[2023-11-06] MEDS ORDERED: ALBUT/IPRATROP 3MG/0.5MG NEB 3 ML VIAL NEB PRN (10:50)
--- NOTE | 2023-11-06 11:30 | Ultrasound Report ---
US venous doppler LE BI CLINICAL HISTORY: r/o clot TECHNIQUE: Bilateral lower extremity real-time compression venous ultrasound with Color Doppler imagi ng. Utilizing real-time ultrasonic imaging multiple real time high-resolution ultrasonic images with compression and noncompression maneuvers of the deep venous system in addition to color doppler imagi ng were performed from the common femoral vein through the proximal calf veins. COMPARISON: Comparison is made to Doppler ultrasound 10/13/2023 FINDINGS/IMPRESSION: Currently there is normal compressibility of the deep venous system from the common femoral vein thro ugh the proximal calf veins. Limited exam due to subcutaneous edema and bandages. ACT 112: Negative or not required by law. Electronically signed by: Ramón You M.D. 11/06/2023 11:28 AM
[2023-11-06] MEDS: RINVOQ~ORDER AWAITING ACTION SCH (11:51)
--- NOTE | 2023-11-06 13:32 | Hospitalist Progress Note ---
Date of Service November 06, 2023 Assessment & Plan (1) Sepsis due to skin infection: Plan: Sepsis due to skin infections/hypotension- Bilateral venous ulcers, right lower extremity cellulitis, multiple skin abrasions Lower extremity venous Doppler negative for DVT CXR unremarkable Due to history of MRSA bacteremia and immunocompromise state- cont. daptomycin, cefepime - blood cx pending Hold home doxycycline for now (ppx for h/o septic joint) Wound care consulted, whom he has been following with in the outpatient setting s/p IVF, BPs improved JEFFERY superimposed on CKD- Creatinine 1.64, with base 1.25. Improved with fluids. cont. daptomycin IV History of left TKA septic arthritis/bilateral TKAs/recent right FRANCIS dislocation and repositioning/MRSA bacteremia- No suggestion currently of infection at the sites, however, is at risk for reseeding Elevated troponin/CAD/HFpEF/atrial fibrillation- Troponin initially 66, peaked Continue amiodarone, apixaban, aspirin and ranolazine Temporarily hold metoprolol tartrate, losartan and isosorbide mononitrate until blood pressure improves Rheumatoid arthritis/immunocompromised state- Patient's son will bring the patient's Rinvok in since it is nonformulary Continue folic acid Peripheral neuropathy- Continue gabapentin Anxiety and depression- Continue duloxetine, melatonin, mirtazapine DVT ppx: eliquis FEN/GI: HH Code Status: full Dispo: PCU (2) Venous stasis ulcers of both lower extremities: (3) Cellulitis of right lower extremity: (4) Skin tear of right upper extremity: (5) Acute kidney injury superimposed on chronic kidney disease: (6) Open wound of left foot: (7) Open wound of right foot: (8) Skin tear of right hand without complication: (9) Venous ulcer of left leg: (10) History of immunosuppressive therapy: (11) Generalized weakness: (12) Atrial fibrillation: (13) HFrEF (heart failure with reduced ejection fraction): (14) Rheumatoid arthritis: (15) Coronary artery disease: Plan Admission and Anticipated Discharge Date Admission Date: November 06, 2023 Supervising Physician Co-Signing Physician Notes Attending Physician Supervision Note: I independently interviewed and examined the patient and verified the lubin history and physical, reviewed labs and image studies and agree with findings and care plan noted above. Sepsis d/t skin infection with h/o MRSA bacteremia -s/p IVF resuscitation -blood cx pending. -dapto, cefepime, [Hold home doxycycline (ppx for h/o septic joint)] -wound care -arterial doppler from September 29 - mild atherosclerosis. JEFFERY - resolved with IVF. Hypotension - resolved with IVF resuscitation. Mild trop elevation (CAD/A fib) - demand ischemia. Immune suppressed status - On Rinvok for RA - son to bring it from home. H/o left TKA septic arthritis/bilateral TKAs/recent right FRANCIS dislocation and repositioning/MRSA bacteremia- -No suggestion currently of infection at the sites, however, is at risk for reseeding Eliquis Subjective Seen at bedside this morning. Feeling slightly better. Mild cough. Bilateral feel burning with R lower extremity pain/warmth. Too weak to lift R leg. Denies fever, chills, cp, sob, abd pain, dysuria. Normal BMs. Review of Systems Review of Systems: All systems reviewed & are unremarkable except as noted in HPI & below Physical Exam Physical Exam: awake, AOx3, lying in bed and in no acute distress. HEENT-- moist mucous membranes Neck--supple. trachea midline. Heart-- RRR. No murmurs, rubs or gallops. Lungs-- faint diffuse wheezing, no rales/rhonchi, no respiratory distress, no accessory muscle use. Abdomen--normal bowel sounds and soft. Nontender. Nondistended. Morbidly obese Extremities--chronic venous stasis changes bilaterally. Moderately severe erythema and warmth right lower extremity with multiple skin abrasions. Left lower extremity multiple skin abrasions. Bilateral knee abrasions. Dermatologic--multiple lower extremity abrasions bilaterally, right worse than left. Upper extremities with abrasion dorsum of right hand and lateral 3 fingers. Neurologic--no focal deficits Results & Data Results & Data Vital Signs (Past 12 Hours) Vital Signs Temp Pulse Pulse Resp BP Pulse Ox O2 Del Method 11/06/23 11:47 36.8 C 73 20 123/66 93 Room Air 11/06/23 07:25 37.6 C H 77 20 121/70 93 Room Air 11/06/23 03:15 75 11/06/23 03:00 37.0 C 75 18 145/83 H 96 Room Air 11/06/23 02:30 68 18 108/58 L 94 Room Air 05/31/24 02:15 68 18 98/48 L 94 Room Air 11/06/23 02:00 70 20 108/63 94 Room Air Laboratory Results 11/06/23 11/06/23 11/06/23 Range/Units 04:50 04:33 01:30 WBC 4.75 L (4.8-10.8) K/ul RBC 3.62 L (4.70-6.10) M/uL Hgb 11.6 L (14.0-18.0) g/dl Hct 34.2 L (42.0-52.0) % MCV 94.5 (80.0-100.0) fL MCH 32.0 (25.0-34.0) pg MCHC 33.9 (32.0-36.0) g/dL RDW Std Deviation 70.6 H (36.4-46.3) fL RDW Coeff of Sammie 20.2 H (11.5-14.5) % Plt Count 142 (130-400) K/uL MPV 10.2 (9.4-12.4) fL Immature Gran % (Auto) 1.3 % Neut % (Auto) 73.5 % Lymph % (Auto) 16.8 % [place] % (Auto) 6.9 % Eos % (Auto) 1.1 % Baso % (Auto) 0.4 % Neut # (Auto) 3.49 (1.40-6.50) K/uL Lymph # (Auto) 0.80 L (1.20-3.40) K/uL [place] # (Auto) 0.33 (0.11-0.59) K/uL Eos # (Auto) 0.05 (0.00-0.50) K/uL Baso # (Auto) 0.02 (0.00-0.20) K/uL Immature Gran # (Auto) 0.06 (0.01-0.20) K/uL Polychromasia Anisocytosis Rouleaux 1+ PT (9.0-12.0) Seconds INR (0.9-1.1) VBG pH (7.36-7.41) VBG pCO2 (38-50) mmHg VBG pO2 mmHg VBG HCO3 mmol/L VBG O2 Saturation % VBG Base Excess mEq/L Sodium 134 L (136-145) mmol/L Potassium 4.8 (3.5-5.1) mmol/L Chloride 102 (98-107) mmol/L Carbon Dioxide 24 (21-32) mmol/L Anion Gap 8 (3-11) BUN 44 H (6-23) mg/dl Creatinine 1.28 D (0.6-1.4) mg/dl Est Cr Clr Drug Dosing 61.7 ml/min Est GFR ( Amer) 61.3 ml/min Est GFR (Non-Af Amer) 52.9 ml/min BUN/Creatinine Ratio 34.4 H (10-20) Glucose 105 H (70-99(Fasting)) mg/dl Lactate 1.3 (0.4-2.0) mmol/L Calcium 7.6 L (8.6-10.3) mg/dl Phosphorus 3.1 (2.5-4.9) mg/dl Magnesium 1.8 (1.7-2.4) mg/dl Total Bilirubin (0.2-1.0) mg/dl Direct Bilirubin (0-0.2) mg/dl AST (13-39) U/L ALT (7-52) U/L Alkaline Phosphatase (34-104) U/L Troponin I High Sens 55.8 H* D (0-20) pg/ml Total Protein (6.0-8.3) gm/dl Albumin 3.6 (3.4-5.0) gm/dl Procalcitonin (0-0.5) ng/ml Nasal Screen MRSA (PCR) Negative (Negative) Adenovirus (PCR) (NotDetected) B. pertussis DNA (PCR) (NotDetected) B.parapertussis DNA PCR (NotDetected) C. pneumoniae DNA (PCR) (NotDetected) Coronavirus OC43 (PCR) (NotDetected) Coronavirus HKU1 (PCR) (NotDetected) Coronavirus 229E (PCR) (NotDetected) SARS-CoV-2 (PCR) (NotDetected) Coronavirus NL63 (PCR) (NotDetected) Human Metapneumovir PCR (NotDetected) Influenza Type A (PCR) (NotDetected) Influenza Type B (PCR) (NotDetected) M. pneumoniae (PCR) (NotDetected) Parainfluenza 1 (PCR) (NotDetected) Parainfluenza 2 (PCR) (NotDetected) Parainfluenza 3 (PCR) (NotDetected) Parainfluenza 4 (PCR) (NotDetected) RSV (PCR) (NotDetected) Entero/Rhino (PCR) (NotDetected) 11/05/23 11/05/23 11/05/23 Range/Units 23:47 23:35 23:22 WBC 5.54 (4.8-10.8) K/ul RBC 4.20 L (4.70-6.10) M/uL Hgb 13.2 L (14.0-18.0) g/dl Hct 40.2 L (42.0-52.0) % MCV 95.7 (80.0-100.0) fL MCH 31.4 (25.0-34.0) pg MCHC 32.8 (32.0-36.0) g/dL RDW Std Deviation 71.7 H (36.4-46.3) fL RDW Coeff of Sammie 20.3 H (11.5-14.5) % Plt Count 278 (130-400) K/uL MPV 9.5 (9.4-12.4) fL Immature Gran % (Auto) 0.4 % Neut % (Auto) 73.1 % Lymph % (Auto) 17.7 % [place] % (Auto) 7.9 % Eos % (Auto) 0.7 % Baso % (Auto) 0.2 % Neut # (Auto) 4.05 (1.40-6.50) K/uL Lymph # (Auto) 0.98 L (1.20-3.40) K/uL [place] # (Auto) 0.44 (0.11-0.59) K/uL Eos # (Auto) 0.04 (0.00-0.50) K/uL Baso # (Auto) 0.01 (0.00-0.20) K/uL Immature Gran # (Auto) 0.02 (0.01-0.20) K/uL Polychromasia 1+ Anisocytosis Present Rouleaux PT 11.4 (9.0-12.0) Seconds INR 1.1 (0.9-1.1) VBG pH 7.40 (7.36-7.41) VBG pCO2 52 H (38-50) mmHg VBG pO2 20 mmHg VBG HCO3 32 mmol/L VBG O2 Saturation < 60.0 % VBG Base Excess 6.0 mEq/L Sodium 135 L (136-145) mmol/L Potassium 4.4 (3.5-5.1) mmol/L Chloride 97 L (98-107) mmol/L Carbon Dioxide 29 (21-32) mmol/L Anion Gap 9 (3-11) BUN 51 H (6-23) mg/dl Creatinine 1.64 H D (0.6-1.4) mg/dl Est Cr Clr Drug Dosing 46.6 ml/min Est GFR ( Amer) 45.4 ml/min Est GFR (Non-Af Amer) 39.2 ml/min BUN/Creatinine Ratio 31.1 H (10-20) Glucose 110 H (70-99(Fasting)) mg/dl Lactate 3.2 H* (0.4-2.0) mmol/L Calcium 9.0 (8.6-10.3) mg/dl Phosphorus (2.5-4.9) mg/dl Magnesium 1.9 (1.7-2.4) mg/dl Total Bilirubin 1.1 H (0.2-1.0) mg/dl Direct Bilirubin 0.2 (0-0.2) mg/dl AST 65 H (13-39) U/L ALT 51 (7-52) U/L Alkaline Phosphatase 53 (34-104) U/L Troponin I High Sens 66.0 H* (0-20) pg/ml Total Protein 6.9 (6.0-8.3) gm/dl Albumin 4.0 (3.4-5.0) gm/dl Procalcitonin 1.08 H (0-0.5) ng/ml Nasal Screen MRSA (PCR) (Negative) Adenovirus (PCR) Not Detected (NotDetected) B. pertussis DNA (PCR) Not Detected (NotDetected) B.parapertussis DNA PCR Not Detected (NotDetected) C. pneumoniae DNA (PCR) Not Detected (NotDetected) Coronavirus OC43 (PCR) Not Detected (NotDetected) Coronavirus HKU1 (PCR) Not Detected (NotDetected) Coronavirus 229E (PCR) Not Detected (NotDetected) SARS-CoV-2 (PCR) Not Detected (NotDetected) Coronavirus NL63 (PCR) Not Detected (NotDetected) Human Metapneumovir PCR Not Detected (NotDetected) Influenza Type A (PCR) Not Detected (NotDetected) Influenza Type B (PCR) Not Detected (NotDetected) M. pneumoniae (PCR) Not Detected (NotDetected) Parainfluenza 1 (PCR) Not Detected (NotDetected) Parainfluenza 2 (PCR) Not Detected (NotDetected) Parainfluenza 3 (PCR) Not Detected (NotDetected) Parainfluenza 4 (PCR) Not Detected (NotDetected) RSV (PCR) Not Detected (NotDetected) Entero/Rhino (PCR) Not Detected (NotDetected) Resident Activity Tracking Resident Involvement: Resident Care Provided Care Provided: Adult Hospital Medicine (6) Open wound of left foot Encounter type: subsequent encounter Qualified Code(s): S91.302D - Unspecified open wound, left foot, subsequent encounter (7) Open wound of right foot Encounter type: subsequent encounter Qualified Code(s): S91.301D - Unspecified open wound, right foot, subsequent encounter (8) Skin tear of right hand without complication Encounter type: subsequent encounter Qualified Code(s): S61.411D - Laceration without foreign body of right hand, subsequent encounter (14) Rheumatoid arthritis Rheumatoid arthritis location: unspecified site Rheumatoid factor presence: unspecified presence Qualified Code(s): M06.9 - Rheumatoid arthritis, unspecified
[2023-11-06] MEDS: LATANOPROST 0.005% OP SOLN 2.5 ML BTL OP SCH (20:48)
[2023-11-06] MEDS: PANTOprazole 40 MG TAB PO SCH (20:49)
[2023-11-06] MEDS: MELATONIN 3 MG TAB PO PRN (20:51)
[2023-11-06] MEDS: hydrOXYzine HCl 10 MG TAB PO PRN (20:51)
[2023-11-07] MEDS: DAPTOmycin 500 MG in SYRINGE 0 ML IV SCH (02:21)
[2023-11-07 06:25] LABS: Basophils # (auto) 0.01 K/uL (0.00-0.20); Basophils % (auto) 0.2 %; Eosinophils # (auto) 0.09 K/uL (0.00-0.50); Eosinophils % (auto) 1.5 %; Hemoglobin 10.2 g/dl (14.0-18.0); Immature Granulocytes # (auto) 0.03 K/uL (0.01-0.20); Immature Granulocytes % (auto) 0.5 %; Lymphocytes # (auto) 0.55 K/uL (1.20-3.40); Mean Corpuscular Hemoglobin 32.2 pg (25.0-34.0); Mean Corpuscular Volume 94.6 fL (80.0-100.0); Mean Platelet Volume 10.6 fL (9.4-12.4); Monocytes # (auto) 0.81 K/uL (0.11-0.59); Monocytes % (auto) 13.3 %; Neutrophils # (auto) 4.62 K/uL (1.40-6.50); Neutrophils % (auto) 75.5 %; Platelet Count 181 K/uL (130-400); RDW Coefficient of Variation 19.9 % (11.5-14.5); RDW Standard Deviation 69.6 fL (36.4-46.3); Red Blood Count 3.17 M/uL (4.70-6.10); White Blood Count 6.11 K/ul (4.8-10.8)
[2023-11-07 06:47] LABS: Calcium 7.9 mg/dl (8.6-10.3); Magnesium 1.8 mg/dl (1.7-2.4); Potassium 4.3 mmol/L (3.5-5.1)
[2023-11-07 06:53] LABS: BUN Creatinine Ratio 31.6 (10-20); Creatinine Clr Calc Pharmacy 70.9 ml/min; Est GFR (African American) 70.5 ml/min; Est GFR (Non-African American) 60.8 ml/min; Phosphorus 2.6 mg/dl (2.5-4.9)
--- NOTE | 2023-11-07 07:22 | Hospitalist Progress Note ---
Date of Service November 07, 2023 Assessment & Plan (1) Sepsis due to skin infection: Plan: Sepsis due to skin infections/hypotension- Bilateral venous ulcers, right lower extremity cellulitis, multiple skin abrasions Lower extremity venous Doppler negative for DVT CXR unremarkable Due to history of MRSA bacteremia and immunocompromise state- cont. daptomycin, cefepime Blood cultures negative at 24 hours. Hold home doxycycline for now (ppx for h/o septic joint) Wound care consulted, whom he has been following with in the outpatient setting s/p IVF, BPs improved If BP remains stable and blood cultures remain negative at 48hrs can consider discharge with oral antibiotic and close follow up outpatient. JEFFERY superimposed on CKD- Creatinine 1.64, with base 1.25. Improved with fluids. cont. daptomycin IV History of left TKA septic arthritis/bilateral TKAs/recent right FRANCIS dislocation and repositioning/MRSA bacteremia- No suggestion currently of infection at the sites, however, is at risk for reseeding Elevated troponin/CAD/HFpEF/atrial fibrillation- Troponin initially 66, peaked Continue amiodarone, apixaban, aspirin and ranolazine Temporarily hold metoprolol tartrate, losartan and isosorbide mononitrate until blood pressure improves Rheumatoid arthritis/immunocompromised state- Patient's son will bring the patient's Rinvok in since it is nonformulary Continue folic acid Peripheral neuropathy- Continue gabapentin Anxiety and depression- Continue duloxetine, melatonin, mirtazapine DVT ppx: eliquis FEN/GI: HH Code Status: full Dispo: PCU, if cultures negative x48 hours can consider switching to oral antibiotic and close follow up outpatient with PCP and wound care. (2) Venous stasis ulcers of both lower extremities: (3) Cellulitis of right lower extremity: (4) Skin tear of right upper extremity: (5) Acute kidney injury superimposed on chronic kidney disease: (6) Open wound of left foot: (7) Open wound of right foot: (8) Skin tear of right hand without complication: (9) Venous ulcer of left leg: (10) History of immunosuppressive therapy: (11) Generalized weakness: (12) Atrial fibrillation: (13) HFrEF (heart failure with reduced ejection fraction): (14) Rheumatoid arthritis: (15) Coronary artery disease: Admission and Anticipated Discharge Date Admission Date: November 06, 2023 Supervising Physician Co-Signing Physician Notes Attending Physician Supervision Note: I independently interviewed and examined the patient and verified the lubin history and physical, reviewed labs and image studies and agree with findings and care plan noted above. Sepsis d/t skin infection with h/o MRSA bacteremia -s/p IVF resuscitation -blood cx @ 24hr neg. -dapto, cefepime, [Hold home doxycycline (ppx for h/o septic joint)] -wound care eval pending -arterial doppler from September 29 - mild atherosclerosis. LEONARD - arrange cpap while hospitalized. JEFFERY - resolved with IVF. Hypotension - resolved with IVF resuscitation. Mild trop elevation (CAD/A fib) - demand ischemia. continue home meds Immune suppressed status - On Rinvoq for RA - son to bring it from home. H/o left TKA septic arthritis/bilateral TKAs/recent right FRANCIS dislocation and repositioning/MRSA bacteremia- -No suggestion currently of infection at the sites, however, is at risk for reseeding Eliquis Subjective Patient seen at the bedside without any complaints. No overnight events. Review of Systems Review of Systems: As per HPI. Physical Exam Constitutional: WD/WN, vitals as above Respiratory: normal respiratory effort, lungs clear to auscultation Cardiovascular: Rate/Rhythm: regular rate and regular rhythm Heart Sounds: normal S1 and normal S2 RLE with 1+ pitting edema up to the mid antonio. LLE with chronic edematous changes, 1+ pitting edema up to antonio. Gastrointestinal (Abdomen): normal bowel sounds, soft, nontender, no hepatosplenomegaly Skin: Chronic venous stasis changes to the bilateral lower extremities. Psychiatric: A+Ox3, euthymic affect Results & Data Results & Data Vital Signs (Past 12 Hours) Vital Signs Temp Pulse Pulse Resp BP Pulse Ox O2 Del Method 11/07/23 03:28 37.5 C 87 18 111/59 L 90 Room Air 11/06/23 23:23 37.2 C 81 18 126/61 92 Room Air 11/06/23 21:55 80 11/06/23 21:25 Room Air 11/06/23 19:25 37.0 C 78 18 103/59 L 93 Room Air (6) Open wound of left foot Encounter type: subsequent encounter Qualified Code(s): S91.302D - Unspecified open wound, left foot, subsequent encounter (7) Open wound of right foot Encounter type: subsequent encounter Qualified Code(s): S91.301D - Unspecified open wound, right foot, subsequent encounter (8) Skin tear of right hand without complication Encounter type: subsequent encounter Qualified Code(s): S61.411D - Laceration without foreign body of right hand, subsequent encounter (14) Rheumatoid arthritis Rheumatoid arthritis location: unspecified site Rheumatoid factor presence: unspecified presence Qualified Code(s): M06.9 - Rheumatoid arthritis, unspecified
[2023-11-08 01:58] LABS: A calco-baum cmplx NotReported Not Detected (NotDetected); Bact fragilis Not Reported Not Detected (NotDetected); Blood Culture Id Panel See PCR Comment (NotDetected); C auris Not Reported Not Detected (NotDetected); CTX-M Resistant Gene Not Detected (NotDetected); Calbicans Not Reported Not Detected (NotDetected); Candida glabrata Not Reported Not Detected (NotDetected); Candida krusei Not Reported Not Detected (NotDetected); Cneoformans/gatti Not Reported Not Detected (NotDetected); Cparapsilosis Not Reported Not Detected (NotDetected); E cloacae compx Not Reported DETECTED (NotDetected); Efaecalis Not Reported Not Detected (NotDetected); Efaecium Not Reported Not Detected (NotDetected); Enterobacterales DETECTED (NotDetected); Enterobacterales Not Reported DETECTED (NotDetected); Escherichia coli Not Reported Not Detected (NotDetected); H influenzae Not Reported Not Detected (NotDetected); IMP Resistant Gene Not Detected (NotDetected); K aerogenes Not Reported Not Detected (NotDetected); KPC Resistant Gene Not Detected (NotDetected); Koxytoca Not Reported Not Detected (NotDetected); Kpneumoniae grp Not Reported Not Detected (NotDetected); Lmonocyt Not Reported Not Detected (NotDetected); N meningitidis Not Reported Not Detected (NotDetected); NDM Resistant Gene Not Detected (NotDetected); OXA 48 Like Resistant Gene Not Detected (NotDetected); P aeruginosa Not Reported Not Detected (NotDetected); Proteus spp Not Reported Not Detected (NotDetected); Salmonella spp Not Reported Not Detected (NotDetected); Smarcescens Not Reported Not Detected (NotDetected); Staph lugdunensis Not Reported Not Detected (NotDetected); Staph spp. Not Reported Not Detected (NotDetected); Staphaureus Not Reported Not Detected (NotDetected); Staphepi Not Reported Not Detected (NotDetected); Stenmaltophilia Not Reported Not Detected (NotDetected); Strep agal(GrpB) Not Reported Not Detected (NotDetected); Strep pneum Not Reported Not Detected (NotDetected); Strep pyog (GrpA) Not Reported Not Detected (NotDetected); Strep spp Not Reported Not Detected (NotDetected); VIM Resistant Gene Not Detected (NotDetected); mcr-1 Colistin Resistant Gene Not Detected (NotDetected)
[2023-11-08 02:03] LABS: Enterobacter cloacae complex DETECTED (NotDetected)
[2023-11-08 06:36] LABS: Basophils # (auto) 0.01 K/uL (0.00-0.20); Basophils % (auto) 0.1 %; Eosinophils # (auto) 0.08 K/uL (0.00-0.50); Eosinophils % (auto) 1.2 %; Hematocrit (blood only) 30.7 % (42.0-52.0); Hemoglobin 10.3 g/dl (14.0-18.0); Immature Granulocytes # (auto) 0.03 K/uL (0.01-0.20); Immature Granulocytes % (auto) 0.4 %; Lymphocytes # (auto) 0.49 K/uL (1.20-3.40); Lymphocytes % (auto) 7.2 %; Mean Corpuscular Hemoglobin 31.7 pg (25.0-34.0); Mean Corpuscular Hgb Conc 33.6 g/dL (32.0-36.0); Mean Corpuscular Volume 94.5 fL (80.0-100.0); Mean Platelet Volume 9.7 fL (9.4-12.4); Monocytes % (auto) 13.3 %; Neutrophils # (auto) 5.26 K/uL (1.40-6.50); Neutrophils % (auto) 77.8 %; Platelet Count 179 K/uL (130-400); RDW Coefficient of Variation 19.9 % (11.5-14.5); Red Blood Count 3.25 M/uL (4.70-6.10); White Blood Count 6.77 K/ul (4.8-10.8)
--- NOTE | 2023-11-08 07:39 | Hospitalist Progress Note ---
"Date of Service November 08, 2023 Assessment & Plan (1) Sepsis due to skin infection: Plan: Bill is a 77M with PMH of MRSA bacteremia, idiopathic polyneuropathy, pressure ulcer of L foot, CAD, constipation, HFrEF, GERD, anxiety, depression, HTN, and rheumatoid arthritis. Sepsis a/w Skin Infections | Hypotension - Hx of MRSA bacteremia & immunocompromise, on chronic Doxycycline for ppx of Septic Joint - BP improved s/p fluid resucitation - Doppler negative for DVT - CXR unremarkable - BC now positive for gram negative, Enterobacter / Repeat BC ordered Ensure clearance in blood prior to transition to PO Abx - Discontinue Daptomycin, continue Cefepime Restart home Doxycycline ppx JEFFERY superimposed on CKD- - Creatinine 1.64, with base 1.25, improvement s/p fluids - Patient's diuretics held for JEFFERY (now resolved) / Spot dose Lasix 20 IV provided History of left TKA septic arthritis/bilateral TKAs/recent right FRANCIS dislocation and repositioning/MRSA bacteremia- - No suggestion currently of infection at the sites, however, is at risk for reseeding - Restarted on home prophylactic antibiotics Elevated troponin/CAD/HFpEF/atrial fibrillation- - Troponin initially 66, peaked - Continue home medications Rheumatoid arthritis/immunocompromised state- - Rinvoq on hold, son able to bring in at request - Continue folic acid Peripheral neuropathy- - Continue gabapentin Anxiety and depression- - Continue duloxetine, melatonin, mirtazapine DVT ppx: Eliquis FEN/GI: HH Code Status: full Dispo: PCU (2) Venous stasis ulcers of both lower extremities: (3) Cellulitis of right lower extremity: (4) Skin tear of right upper extremity: (5) Acute kidney injury superimposed on chronic kidney disease: (6) Open wound of left foot: (7) Open wound of right foot: (8) Skin tear of right hand without complication: (9) Venous ulcer of left leg: (10) History of immunosuppressive therapy: (11) Generalized weakness: (12) Atrial fibrillation: (13) HFrEF (heart failure with reduced ejection fraction): (14) Rheumatoid arthritis: (15) Coronary artery disease: Admission and Anticipated Discharge Date Admission Date: November 06, 2023 Supervising Physician Co-Signing Physician Notes Attending Physician Supervision Note: I independently interviewed and examined the patient and verified the lubin history and physical, reviewed labs and image studies and agree with findings and care plan noted above. Subjective /: Patient resting in bed upon arrival, no acute concerns at present or overnight. Patient notes that his lower extremities continue to weep, he states that this started 3 weeks ago. At this time he started attending wound care, but ultimately his wounds progressed. Patient denies pain in the legs at this time. He denies fevers, chills, nausea, emesis, abdominal pain, headaches, or lightheadedness. 1600 Family present at bedside, questions answered. Physical Exam Physical Exam: Gen: NAD, alert, interactive HEENT: Supple, no LAD, no thyromegaly, no JVD Resp:Non-labored, no wheezing/rhonchi/rales, CTAB CV:RRR, normal S1/S2, no M/R/G Abd: Soft, non-distended, no TTP, normoactive bowels, no masses Extr: 2+ dp bilaterally, 3+ pitting, weeping edema Skin: Increased erythema and warmth to the RLE w/ multiple superficial skin abrasions bilaterally. Bilateral knee abrasions. Bandages intact. Results & Data Results & Data Vital Signs (Past 12 Hours) Vital Signs Temp Pulse Pulse Resp BP Pulse Ox O2 Del Method 11/08/23 07:28 36.7 C 66 19 118/76 94 Room Air 11/08/23 04:42 36.7 C 92 H 18 113/63 92 Room Air 11/07/23 22:40 36.8 C 74 18 129/83 94 Room Air 11/07/23 21:52 74 11/07/23 21:30 Room Air Resident Activity Tracking Resident Involvement: Resident Care Provided Care Provided: Adult Hospital Medicine (6) Open wound of left foot Encounter type: subsequent encounter Qualified Code(s): S91.302D - Unspecified open wound, left foot, subsequent encounter (7) Open wound of right foot Encounter type: subsequent encounter Qualified Code(s): S91.301D - Unspecified open wound, right foot, subsequent encounter (8) Skin tear of right hand without complication Encounter type: subsequent encounter Qualified Code(s): S61.411D - Laceration without foreign body of right hand, subsequent encounter (14) Rheumatoid arthritis Rheumatoid arthritis location: unspecified site Rheumatoid factor presence: unspecified presence Qualified Code(s): M06.9 - Rheumatoid arthritis, unspecified"
[2023-11-08 07:49] LABS: Albumin Level 2.9 gm/dl (3.4-5.0); BUN Creatinine Ratio 30.8 (10-20); Calcium 8.4 mg/dl (8.6-10.3); Creatinine Clr Calc Pharmacy 75.5 ml/min; Est GFR (African American) 76.1 ml/min; Est GFR (Non-African American) 65.7 ml/min; Magnesium 1.9 mg/dl (1.7-2.4); Phosphorus 2.8 mg/dl (2.5-4.9); Potassium 4.4 mmol/L (3.5-5.1)
[2023-11-08] MEDS ORDERED: POLYETHYLENE (MIRALAX) 17 GM PACK PO PRN (09:12)
[2023-11-08] MEDS: POLYETHYLENE (MIRALAX) 17 GM PACK PO PRN (16:44)
[2023-11-08] MEDS: FUROSEMIDE INJ 20 MG/2 ML VIAL IV ONE (16:44)
[2023-11-08] MEDS: ACETAMINOPHEN 325 MG TAB PO PRN (18:23)
[2023-11-08] MEDS: DOXYCYCLINE HYCLATE 100 MG CAP PO SCH (20:03)
[2023-11-09 06:37] LABS: Hemoglobin 11.1 g/dl (14.0-18.0); Mean Corpuscular Hemoglobin 31.9 pg (25.0-34.0); Mean Corpuscular Hgb Conc 33.6 g/dL (32.0-36.0); Mean Corpuscular Volume 94.8 fL (80.0-100.0); Mean Platelet Volume 9.8 fL (9.4-12.4); Platelet Count 195 K/uL (130-400); RDW Coefficient of Variation 19.4 % (11.5-14.5); RDW Standard Deviation 68.2 fL (36.4-46.3); Red Blood Count 3.48 M/uL (4.70-6.10)
[2023-11-09 07:06] LABS: Albumin Globulin Ratio 1.1 (0.9-2); BUN Creatinine Ratio 33.9 (10-20); Bilirubin,Total 0.7 mg/dl (0.2-1.0); C Reactive Protein 14.34 mg/dl (0-0.5); Calcium 8.5 mg/dl (8.6-10.3); Creatinine Clr Calc Pharmacy 72.1 ml/min; Est GFR (Non-African American) 62.1 ml/min; Globulin 2.7 gm/dl (2.5-4.0); Magnesium 1.9 mg/dl (1.7-2.4); Potassium 4.4 mmol/L (3.5-5.1); Total Protein 5.7 gm/dl (6.0-8.3)
[2023-11-09] MEDS: FERROUS SULFATE 325 MG TAB PO SCH (08:53)
[2023-11-09] MEDS ORDERED: cefTRIAXone SODIUM 2,000 MG/50 ML BAG IV SCH (11:15)
--- NOTE | 2023-11-09 12:45 | Medical Student Progress Note ---
"Date of Service November 09, 2023 Assessment & Plan (1) Sepsis due to skin infection: Plan: Bill is a 77M with PMH of MRSA bacteremia, idiopathic polyneuropathy, pressure ulcer of L foot, CAD, constipation, HFrEF, GERD, anxiety, depression, HTN, and rheumatoid arthritis. Sepsis a/w Skin Infections | Hypotension - Hx of MRSA bacteremia & immunocompromise, on chronic Doxycycline for ppx of Septic Joint - BP improved s/p fluid resucitation - Doppler negative for DVT - CXR unremarkable - BC now positive for gram negative, Enterobacter 6/ Repeat BC ordered Ensure clearance in blood prior to transition to PO Abx - Discontinue Daptomycin, dc Cefepime, plan to transition to PO levofloxacin 750 mg 14 days Home Doxycycline ppx restarted - Recommend continue holding Rinvoq for the course of antibiotics and until lower extremity wounds heal, follow up with rheumatology for additional recommendations JEFFERY superimposed on CKD- - Creatinine 1.64, with base 1.25, improvement s/p fluids - Patient's diuretics held for JEFFERY (now resolved) / Spot dose Lasix 20 IV provided History of left TKA septic arthritis/bilateral TKAs/recent right FRANCIS dislocation and repositioning/MRSA bacteremia- - No suggestion currently of infection at the sites, however, is at risk for reseeding - Restarted on home prophylactic antibiotics Elevated troponin/CAD/HFpEF/atrial fibrillation- - Troponin initially 66, peaked - Continue home medications Rheumatoid arthritis/immunocompromised state- - Rinvoq on hold, recommend to continue holding until wounds fully heal. f/u with rheumatology in january. - Continue folic acid Peripheral neuropathy- - Continue gabapentin Anxiety and depression- - Continue duloxetine, melatonin, mirtazapine DVT ppx: Eliquis FEN/GI: HH Code Status: full Dispo: PCU (2) Venous stasis ulcers of both lower extremities: (3) Cellulitis of right lower extremity: (4) Skin tear of right upper extremity: (5) Acute kidney injury superimposed on chronic kidney disease: (6) Open wound of left foot: Encounter type: subsequent encounter Qualified Code(s): S91.302D - Unspecified open wound, left foot, subsequent encounter (7) Open wound of right foot: Encounter type: subsequent encounter Qualified Code(s): S91.301D - Unspecified open wound, right foot, subsequent encounter (8) Skin tear of right hand without complication: Encounter type: subsequent encounter Qualified Code(s): S61.411D - Laceration without foreign body of right hand, subsequent encounter (9) Venous ulcer of left leg: (10) History of immunosuppressive therapy: (11) Generalized weakness: (12) Atrial fibrillation: (13) HFrEF (heart failure with reduced ejection fraction): (14) Rheumatoid arthritis: Rheumatoid arthritis location: unspecified site Rheumatoid factor presence: unspecified presence Qualified Code(s): M06.9 - Rheumatoid arthritis, unspecified (15) Coronary artery disease: Admission and Anticipated Discharge Date Admission Date: November 06, 2023 Subjective Resting comfortably in bed this morning, feeling better than yesterday but not returned to his baseline. Generalized pain but not localized to any specific source. Feeling fatigued. Wanting to go home. Concerns for if he can resume Rinvoq which is managed by rhumatology. No Headache, shortness of breath or chest pain, feeling wheezes, BM yesterday which was hard, no nausea vomiting or abdominal pain. Review of Systems Review of Systems: as per hpi Physical Exam Constitutional: In no acute distress Respiratory: Lungs clear to auscultation bilaterally, no wheeze appreciated Cardiovascular: Regular rate and rhythm, no murmur Left lower extremity edema Skin: Chronic venous stasis changes bilaterally. Moderately severe erythema and warmth right lower extremity with multiple skin abrasions. Mild erythema and warmth left lower extremity multiple skin abrasions. Bilateral knee abrasions. Upper extremities with abrasions. Psychiatric: Alert and oriented, appropriate eye contact, decreased mood Results & Data Vital Signs (Past 12 Hours) Vital Signs Temp Pulse Pulse Resp BP Pulse Ox O2 Del Method 11/09/23 07:25 36.6 C 68 18 128/67 92 Room Air 11/09/23 02:49 36.8 C 76 20 119/75 93 Room Air 11/09/23 00:43 64 11/08/23 23:53 36.8 C 70 19 125/71 93 Room Air"
[2023-11-09] MEDS: Cefepime 2,000 MG Extended Infusion IV SCH (14:14)
--- NOTE | 2023-11-09 15:12 | Discharge Summary ---
Date of Service November 09, 2023 Admission HPI Per Admitting Provider The patient is a 77-year-old male with a past medical history including multiple skin tears on upper extremities and lower extremities, bilateral venous ulcers consistent with venous insufficiency, bilateral knee abrasions, MRSA bacteremia, right FRANCIS dislocated and repositioned in the OR on 10/20/2023, rotator cuff arthropathy bilaterally, immunocompromised on [place] for RA, hypertension, CAD, HFpEF, bilateral total knee arthroplasties, history of left natural knee septic arthritis prior to recent left TKA septic arthritis, following with wound care as outpatient for chronic lower extremity venous ulcers, and adjustment disorder with mixed anxiety and depressed mood. The patient presents to the emergency department with progressively worsening fevers, chills, shakes, fatigue and worsening of lower extremity venous ulcerations and increasing erythema of right lower extremity. Admission Exam Per Admitting Provider The patient is awake, alert and oriented 3, appears fatigued, normocephalic and atraumatic, lying in bed and in no acute distress. HEENT--PERRL, EOMI, mucous membranes and oropharynx dry. Neck--supple. No JVD. No bruits. Thyroid normal, trachea midline, no adenopathy. Heart--normal S1 and S2. No murmurs, rubs or gallops. Lungs--clear bilaterally, no respiratory distress, no accessory muscle use. Abdomen--normal bowel sounds and soft. Nontender. Nondistended. Morbidly obese Extremities--chronic venous stasis changes bilaterally. Moderately severe erythema and warmth right lower extremity with multiple skin abrasions. Left lower extremity multiple skin abrasions. Bilateral knee abrasions. Dermatologic--multiple lower extremity abrasions bilaterally, right worse than left. Upper extremities with abrasion dorsum of right hand and lateral 3 fingers. Neurologic--cranial nerves II through XII grossly intact. Rheumatologic--limited exam Psychiatric--normal affect. Principal Diagnosis Gram-negative bacteremia Discharge Exam Gen: NAD, alert, interactive HEENT: Supple, no LAD, no thyromegaly, no JVD Resp:Non-labored, no wheezing/rhonchi/rales, CTAB CV:RRR, normal S1/S2, no M/R/G Abd: Soft, non-distended, no TTP, normoactive bowels, no masses Extr: 2+ dp bilaterally, 3+ pitting, weeping edema Skin: Increased erythema and warmth to the RLE w/ multiple superficial skin abrasions bilaterally. Bilateral knee abrasions. Bandages intact. Discharge Data Allergies Allergy/AdvReac Type Severity Reaction Status Date / Time cat dander Allergy Severe CAT Verified 11/06/23 00:03 HAIR---Swelling of Lip/Tongue/Throat Consultations 11/06/23 00:53 ED Decision to Admit Stat Ordered Studies 11/06/23 09:17 US venous doppler LE BI Urgent Chest X-Ray 11/05/23 23:01 XR chest 1V portable CLINICAL HISTORY: Sepsis TECHNIQUE: Single frontal radiograph of the chest was obtained. Comparison: Comparison is made to chest radiograph 06/29/2023 FINDINGS: No lines and tubes are seen. The cardiomediastinal silhouette is normal. The lungs are clear. No evidence of pleural effusion or pneumothorax. IMPRESSION: No acute abnormalities and in particular no radiographic evidence of pneumonia. ACT 112: Negative or not required by law. Electronically signed by: Ramón Yuo M.D. 11/06/2023 9:16 AM Venous Doppler Study 11/06/23 09:17 US venous doppler LE BI CLINICAL HISTORY: r/o clot TECHNIQUE: Bilateral lower extremity real-time compression venous ultrasound with Color Doppler imaging. Utilizing real-time ultrasonic imaging multiple real time high-resolution ultrasonic images with compression and noncompression maneuvers of the deep venous system in addition to color doppler imaging were performed from the common femoral vein through the proximal calf veins. COMPARISON: Comparison is made to Doppler ultrasound 10/13/2023 FINDINGS/IMPRESSION: Currently there is normal compressibility of the deep venous system from the com mon femoral vein through the proximal calf veins. Limited exam due to subcutaneous edema and bandages. ACT 112: Negative or not required by law. Electronically signed by: Ramón You M.D. 11/06/2023 11:28 AM Hospital Course (1) Sepsis due to skin infection: (2) Venous stasis ulcers of both lower extremities: (3) Cellulitis of right lower extremity: (4) Skin tear of right upper extremity: (5) Acute kidney injury superimposed on chronic kidney disease: (6) Open wound of left foot: (7) Open wound of right foot: (8) Skin tear of right hand without complication: (9) Venous ulcer of left leg: (10) History of immunosuppressive therapy: (11) Generalized weakness: (12) Atrial fibrillation: (13) HFrEF (heart failure with reduced ejection fraction): (14) Rheumatoid arthritis: (15) Coronary artery disease: Pankaj Khan is a 77M with PMH of MRSA bacteremia, idiopathic polyneuropathy, pressure ulcer of L foot, CAD, constipation, HFrEF, GERD, anxiety, depression, HTN, and rheumatoid arthritis. Sepsis a/w Skin Infections | Hypotension - Hx of MRSA bacteremia & immunocompromise, on chronic Doxycycline for ppx of Septic Joint - BP improved s/p fluid resucitation - Doppler negative for DVT - CXR unremarkable - BC now positive for gram negative, Enterobacter 6/2 Repeat BC ordered Ensure clearance in blood prior to transition to PO Abx - Discontinue Daptomycin, dc Cefepime, plan to transition to PO Bactrim DS BID for 13 days. Will hold on fluoroquinolone due to concerns of prolonged QTc with amiodarone BMP in 3 days Home Doxycycline ppx restarted - Recommend continue holding Rinvoq for the course of antibiotics and until lower extremity wounds heal, follow up with rheumatology for additional recommendations JEFFERY superimposed on CKD- - Creatinine 1.64, with base 1.25, improvement s/p fluids - Patient's diuretics held for JEFFERY (now resolved) 6/2 Spot dose Lasix 20 IV provided -BMP in 3 days. History of left TKA septic arthritis/bilateral TKAs/recent right FRANCIS dislocation and repositioning/MRSA bacteremia- - No suggestion currently of infection at the sites, however, is at risk for reseeding - Restarted on home prophylactic antibiotics Elevated troponin/CAD/HFpEF/atrial fibrillation- - Troponin initially 66, peaked - Continue home medications Rheumatoid arthritis/immunocompromised state- - Rinvoq on hold, recommend to continue holding until wounds fully heal. f/u with rheumatology in january. - Continue folic acid Peripheral neuropathy- - Continue gabapentin Anxiety and depression- - Continue duloxetine, melatonin, mirtazapine Total Time Total Time Spent Total Time Spent (In Minutes): <30 Discharge Plan Discharge Items Patient Disposition: Home - Self-Care Reason For Visit: SEPSIS, B/L LE VENOUS ULCERS, RLE CELLULITIS, JEFFERY, Discharge Diagnosis: Gram negative bacteremia Activity: Per Instructions section Non-emergency contact: Primary Care Provider Call non-emergency contact if: you have any medication questions, your pain is unusual for you and your temperature is above 101.5 Follow-up/Referrals: [facility] [Provider Group] Danny Soliman DO [Primary Care Provider] - Diet: Heart Healthy Ambulatory Orders: Basic Metabolic Panel (Routine) Timeframe: 3 Days Location: Determined by Patient Ordered By: Maxime Bernstein Attending Provider Instructions: You were admitted to the hospital for gram-negative bacteremia. You were treated with antibiotics A discharge summary will be sent to your primary care physician to ensure continuity of care. Please bring this discharge summary with you to your next office appointment so that your provider can review it at that time. Follow-up appointments: * Make a follow-up appointment with your PCP within the next week. It is very important that you follow up with them shortly after discharge from the hospital. * We have requested a follow-up appointment with wound care. It is very important that you follow-up with wound care after discharge. * Should have a basic metabolic panel (BMP) in 3 days. * Keep all your follow-up appointments as already scheduled. If you cannot make an appointment, notify your provider. Medications: Your medication list has been reviewed and reconciled upon discharge to ensure accuracy and continuity of care. An updated list of all your medications is included with your hospital discharge paperwork. Please review this list closely, and make note of any changes. * We sent a new medication called Bactrim to pharmacy. Take Bactrim DS (1 tab) twice a day for 13 days. * Please continue to hold your Rinvoq. Please follow up with your marketing research intern about restarting this medication in the future. * If you have any issues filling these prescriptions, please call [phone] and ask to leave a message for Dr. Sandoval. * Take your medications as instructed; do not skip a dose of your medicines. Make sure all of your doctors know every medicine you are taking (including [id number] medicines, vitamins, and supplements). Call your primary care provider before taking any new medicines (including over- the-counter medicines, vitamins, and supplements), because some of these may interact with your current medications, or may make your symptoms worse. Tell your primary care provider if you cannot afford your medications. CONTACT YOUR PRIMARY CARE PROVIDER if you experience any of the following: * Worsening of symptoms * Fever, chills, or fatigue * Difficulty following your treatment plan, or difficulty taking medications CALL 911 OR GO TO THE EMERGENCY DEPARTMENT if you experience any of the following: * Sudden, severe abdominal pain or nausea/vomiting * Severe chest pain, or chest pain that radiates (moves) to your jaw or arm * Sudden, severe shortness of breath or difficulty breathing Thank you for allowing us to participate in your care. Pending Studies at Discharge: Yes Studies:: Repeat blood cultures Stand-Alone Forms: [facility], Smoking Cessation Medications and DC Order Prescriptions: New sulfamethoxazole-trimethoprim [Bactrim DS] 800-160 mg tablet 1 tab PO BID 13 Days Qty: 26 0RF Continued acetaminophen 500 mg capsule 500 mg PO TID MDD 1,500 MG/24 HOURS PRN (Reason: Pain) doxycycline monohydrate 100 mg capsule 100 mg PO BID cholecalciferol (vitamin D3) 250 mcg (10,000 unit) tablet 250 mcg PO DAILY 90 Days Qty: 90 3RF Eliquis 2.5 mg tablet 2.5 mg PO BID Qty: 90 3RF gabapentin 400 mg capsule 400 mg PO TID 30 Days Qty: 90 5RF pravastatin 40 mg tablet 40 mg PO DAILY Qty: 90 3RF Rx Instructions: TAKE 1 TABLET BY MOUTH ONCE DAILY olmesartan 5 mg tablet 5 mg PO DAILY 90 Days Qty: 90 3RF metoprolol tartrate 25 mg tablet 12.5 mg PO BID 30 Days Qty: 30 5RF Rx Instructions: TAKE 1/2 TABLET BY MOUTH TWICE DAILY FOR YOUR HEART AND HIGH BLOOD PRESSURE isosorbide mononitrate 60 mg tablet extended release 24 hr 60 mg PO QAM Qty: 90 3RF amiodarone 200 mg tablet 200 mg PO DAILY Qty: 90 3RF Rx Instructions: TAKE 1 TABLET BY MOUTH ONCE DAILY esomeprazole magnesium [Nexium] 40 mg capsule,delayed release(DR/EC) 40 mg PO HS Qty: 90 3RF ferrous sulfate 325 mg (65 mg iron) tablet,delayed release (DR/EC) 325 mg PO DAILY 90 Days Qty: 90 3RF oxycodone 5 mg tablet 5 mg PO HS PRN (Reason: Pain) Qty: 20 0RF duloxetine 60 mg capsule,delayed release(DR/EC) 60 mg PO QAM Qty: 90 3RF furosemide 20 mg tablet 20 mg PO DAILY PRN (Reason: edema or weight gain) Qty: 30 5RF latanoprost 0.005 % drops 1 drp ophthalmic (eye) QPM senna 8.6 mg capsule 8.6 mg PO AMHS diclofenac sodium [Voltaren Arthritis Pain] 1 % gel 2 g topical QID Qty: 200 2RF mirtazapine 30 mg tablet 30 mg PO DAILY Qty: 90 3RF aspirin [Adult Low Dose Aspirin] 81 mg tablet,delayed release (DR/EC) 81 mg PO QAM Hold Instructions: Resume on 02/23/23. until PCP/surgery followup [id number] Tablet 1 tab PO QAM coenzyme Q10 100 mg capsule 100 mg PO QAM Adult 50 Plus Probiotic 4 billion cell capsule 6,000 mmu cells PO QAM PRN (Reason: use with antibiotics) Rx Instructions: administer with a meal ascorbic acid (vitamin C) 500 mg capsule 1,000 mg PO QAM melatonin 5 mg capsule 5 mg PO HS PRN (Reason: Sleep) cyanocobalamin (vitamin B-12) 500 mcg Tablet 1,000 mcg PO QAM Qty: 30 0RF hydroxyzine HCl 10 mg Tablet 10 mg PO HS PRN (Reason: anxiety or insomnia) Qty: 14 0RF folic acid 1 mg Tablet 1 mg PO QAM Qty: 30 0RF thiamine HCl (vitamin B1) 100 mg tablet 100 mg PO QAM ranolazine 500 mg tablet extended release 12 hr 500 mg PO BID Rx Instructions: TAKE 1 TABLET BY MOUTH TWICE DAILY Held Rinvoq 15 mg tablet extended release 24 hr 15 mg PO DAILY Hold Instructions: Resume on 12/09/23. Rx Instructions: patient states' I restarted it on my own" Discharge Orders: Discharge Order (Routine); Ordered 11/09/23 Ordered By: Maxime Sandoval Admission Data Admit Date/Time: 11/06/23 01:46 Attending Provider: Rakesh Herrera Admit Provider: Himanshu Weinstein Primary Care Provider: Danny Soliman Other Providers: Himanshu Weinstein; [facility] Other Interventions: Discharge Summary Assessment (RN) Last Done: 11/09/23 15:17 Supervising Physician Co-Signing Physician Notes I personally examined the patient and verified all lubin points of history and exam, discussed case, and agree with decision making with Dr Sandoval Feels good. Basically feels at his baseline level of function. Would very much like to get home today. Discussed ongoing outpatient antibiotics. Vitals noted, in general he is awake and alert pleasant no distress. HEENT normocephalic atraumatic mucous membranes moist. Breathing unlabored no accessory muscle use good effort. Skin without rashes pallor or icterus. Neuro without focal deficits. Cellulitis, Enterobacter bacteremiagram-negative bacteremia, fortunately pansensitivesafe/stable for home. P.o. Bactrim to round out 14 total days of therapy, basic metabolic panel later this week. (Considered a fluoroquinolone but his QT was a little bit concerning given that he is also on amiodarone, considered on p.o. third GEN cephalosporin, but pharmacy noted concerns about bioavailability and efficacy against enterobacter) - Discussed holding off on his RA treatment for now, and given that he has had multiple serious infections recently, it may need to be on indefinite hold, at least until he is able to get his wounds healed and no longer have an open portal of entry for bacterial infections. Follow-up PCP, follow-up rheumatology, ongoing wound care.
--- NOTE | 2023-11-09 17:34 | Billing Data ---
Date of Service November 09, 2023 Coding Level of Care Code 82057 IN/OBS DISCH 30 MIN/LESS
--- NOTE | 2023-11-09 17:54 | Communication Note ---
Date of Service: November 09, 2023 d/w resident physician That he got a phone call that son was upset about patient being discharged today. With that being pansensitive gram-negatives, and his leg cellulitis appearing to have resolved, and the patient has capacity/felt safe being at home and his current level of function corroborated by PT noting that he appears near his baseline level of function [facility]", discharge home today appeared to be both medically appropriate, and in keeping with the patient's wishes.
[2023-11-09] MEDS: SULFAMETHOXAZOLE/TRIMETHOPRIM DS 800/160MG TAB PO ONE (18:19)
== END 2023-11-09 19:00 | disposition home health service (06) | DRG 872 ==
LOC: ED 22:51 → SUATTDRO 11-06 01:46 → 4W 11-06 01:46

== ENCOUNTER 2023-12-14 19:33 | Inpatient (IN) ==
[2023-12-14 20:13] LABS: Basophils # (auto) 0.01 K/uL (0.00-0.20); Basophils % (auto) 0.1 %; Eosinophils # (auto) 0.13 K/uL (0.00-0.50); Eosinophils % (auto) 1.9 %; Hematocrit (blood only) 36.1 % (42.0-52.0); Hemoglobin 11.7 g/dl (14.0-18.0); Immature Granulocytes # (auto) 0.02 K/uL (0.01-0.20); Immature Granulocytes % (auto) 0.3 %; Lymphocytes # (auto) 0.92 K/uL (1.20-3.40); Lymphocytes % (auto) 13.6 %; Mean Corpuscular Hemoglobin 33.6 pg (25.0-34.0); Mean Corpuscular Hgb Conc 32.4 g/dL (32.0-36.0); Mean Corpuscular Volume 103.7 fL (80.0-100.0); Mean Platelet Volume 10.2 fL (9.4-12.4); Monocytes # (auto) 0.78 K/uL (0.11-0.59); Monocytes % (auto) 11.6 %; Neutrophils # (auto) 4.88 K/uL (1.40-6.50); Neutrophils % (auto) 72.5 %; Platelet Count 193 K/uL (130-400); RDW Coefficient of Variation 17.6 % (11.5-14.5); RDW Standard Deviation 67.9 fL (36.4-46.3); Red Blood Count 3.48 M/uL (4.70-6.10); White Blood Count 6.74 K/ul (4.8-10.8)
[2023-12-14 20:31] LABS: Albumin Globulin Ratio 1.4 (0.9-2); Albumin Level 3.7 gm/dl (3.4-5.0); BUN Creatinine Ratio 25.2 (10-20); Bilirubin,Total 0.8 mg/dl (0.2-1.0); Creatinine Clr Calc Pharmacy 57.6 ml/min; Est GFR (African American) 59.2 ml/min; Est GFR (Non-African American) 51.1 ml/min; Globulin 2.7 gm/dl (2.5-4.0); Potassium 4.6 mmol/L (3.5-5.1); Total Protein 6.4 gm/dl (6.0-8.3)
--- NOTE | 2023-12-14 21:22 | Emergency Department Note ---
Impression & Plan Cellulitis of right lower extremity, History of immunosuppressive therapy, Venous ulcer of right leg ED Provider Note NAME: RAFY CHICAS AGE: 78 SEX: M : 1945 ARRIVES VIA: Walk-In INFORMANT: Patient ED PROVIDER(S): Lorenzo Briscoe MD CHIEF COMPLAINT: Right leg infection. PLAN: Disposition: Admit MEDICAL DECISION MAKING: The patient is a pleasant 78-year-old gentleman with a past medical history of rheumatoid arthritis on Rinvoq, history of diastolic heart failure, sepsis, history of chronic right knee replacement infection on chronic doxycycline twice daily who presents to the emergency department via walk-in referred by his daughter for evaluation of acute onset redness, pain and swelling of his right lower leg in the setting of being discharged from [facility] yesterday following stay there for generalized weakness which developed while he was at his [facility] facility. The patient was also seen in this emergency department last week for fevers for which they report no source was found and the patient was discharged back to [facility]. Patient denies any nausea or vomiting. He reports no new pain in his right knee. Of note, the patient did arrive to emergency department during time of high volume, acuity and prolonged emergency department waiting times. Critical pathways initiated from triage. On evaluation the patient is chronically ill-appearing but no acute distress, afebrile with stable vital signs. His right lower extremity demonstrates moderate erythema, warmth and asymmetric edema compared to the left without crepitus. He has several areas of ulceration which have silicone dressing in place. Passive range of motion of the hip and knee without acute pain. Left lower extremity exhibits mild edema without erythema, warmth or tenderness. CXR negative for acute cardiopulmonary process per my personal preliminary review/interpretation. Plain films of the right knee, tib-fib and foot were obtained. These were negative for acute fracture or dislocation. Soft tissue swelling is noted per my preliminary independent interpretation. WBC and platelets within normal limits. H/H similar to prior range of values. There is no left shift. ESR is 19, within normal limits. CRP is mildly elevated at 11.2. Chemistry without metabolic acidosis. Lactic acid 1.3, within normal limits. Procalcitonin is not elevated. Respiratory viral panel/BioFire was negative. Blood cultures were obtained and empiric treatment initiated with IV Zosyn and daptomycin. Case was discussed with Dr. MELL Weinstein hospitalist, who will evaluate the patient for admission. Further management per admitting team. Triage Nursing notes reviewed and agree them. Prior/external medical records reviewed Vital Signs: reviewed Differential diagnosis: Cellulitis, abscess, MRSA infection, DVT, necrotizing fasciitis, dermatitis, drug eruption, allergic reaction, as well as other pathologies. ER treatment provided: See below. Diagnostics interpreted by me: Cardiac Monitoring: An order for continuous cardiac monitoring was placed and demonstrated normal sinus rhythm, 73 bpm, no ectopy. Laboratory studies: See below Imaging studies: CXR negative for acute cardiopulmonary process per my personal preliminary review/interpretation. XR right knee, tib-fib and foot: Negative for acute fracture or dislocation with soft tissue swelling noted per my preliminary independent interpretation. Consultation(s): Case was discussed with Dr. Weinstein [facility] hospitalist, who will evaluate the patient for admission. HPI: The patient is a pleasant 78-year-old gentleman with a past medical history of rheumatoid arthritis on Rinvoq, history of diastolic heart failure, sepsis, history of chronic right knee replacement infection on chronic doxycycline twice daily who presents to the emergency department via walk-in referred by his daughter for evaluation of acute onset redness, pain and swelling of his right lower leg in the setting of being discharged from [facility] yesterday following stay there for generalized weakness which developed while he was at his [facility] facility. The patient was also seen in this emergency department last week for fevers for which they report no source was found and the patient was discharged back to [facility]. Patient denies any nausea or vomiting. He reports no new pain in his right knee. ROS: See above HPI for pertinent positives & negatives. A total of 10 systems reviewed and were otherwise negative. VITALS:See Below PHYSICAL EXAMINATION: GENERAL: Awake, alert, chronically ill-appearing, in no distress, BMI 32.9. HENT: Normocephalic, atraumatic. Oropharynx unremarkable. EYES: Normal conjunctiva. Sclera non-icteric. NECK: Supple. No nuchal rigidity. FROM. No JVD. RESPIRATORY: Clear to auscultation. CARDIAC: Regular rate, normal rhythm. Extremities warm and well perfused. Pulses equal. ABDOMEN: Soft, non-distended. No tenderness to palpation. No rebound or guarding. No masses. MUSCULOSKELETAL: Chest examination reveals no tenderness. The back is symmetrical on inspection without obvious abnormality. There is no CVA tenderness to palpation. No joint edema. LOWER EXTREMITIES: Right lower extremity demonstrates moderate erythema, warmth and asymmetric edema compared to the left without crepitus. He has several areas of ulceration which have silicone dressing in place. Passive range of motion of the hip and knee without acute pain. Left lower extremity exhibits mild edema without erythema, warmth or tenderness. NEURO: Normal sensorium. No sensory or motor deficits noted. SKIN: No rash or jaundice noted. Lorenzo Briscoe MD Past Med/Surg History Problem List (Updated 12/15/23 @ 00:47 by Lorenzo Briscoe MD) Venous ulcer of right leg (Acute) Lymphangitis of lower extremity Hypomagnesemia (Acute) Fever (Acute) Open wound of left upper arm Open wound of left arm with tendon injury Gram-negative bacteremia Cellulitis of right lower extremity (Acute) Sepsis due to skin infection Generalized weakness (Acute) Elevated procalcitonin (Acute) Acute kidney injury superimposed on chronic kidney disease (Acute) Sepsis (Acute) Skin tear of right upper extremity (Acute) Open wound of left foot (Acute) Open wound of right foot (Acute) Skin tear of right hand without complication (Acute) Venous ulcer of left leg (Acute) Traumatic open wound of right lower leg (Acute) Elevated LFTs Venous stasis ulcers of both lower extremities MRSA bacteremia Dislocation, hip closed (Acute) Dislocation, hip, posterior Rotator cuff arthropathy of both shoulders Idiopathic polyneuropathy Abrasion of right knee (Acute) History of immunosuppressive therapy (Acute) Pain of right hip Prophylactic antibiotic History of sepsis Left shoulder pain Acquired foot deformity (Chronic) Traumatic wound (Acute) Pressure ulcer of left foot, stage 3 (Acute) Abnormal ankle brachial index (Acute) Right knee pain Cellulitis of knee, right (Acute) Non-ST elevation OR (NSTEMI) (Acute) Leukocytosis (Acute) Sepsis (Acute) Myoclonus Cervical radiculopathy Neuropathy Weakness On amiodarone therapy Weakness of right hip DVT prophylaxis Constipation Acute on chronic diastolic congestive heart failure Sepsis following procedure Wheezing Rhabdomyolysis MRSA infection History of CHF (congestive heart failure) Visual disturbance Hyponatremia Hypotension Acute metabolic encephalopathy Severe sepsis Abdominal wall abscess (Acute) Atrial fibrillation HFrEF (heart failure with reduced ejection fraction) EF 40% Mar 2022, improved 55-60% August 2022 Lumbar stenosis Osteoarthritis of right knee Anxiety and depression GERD (gastroesophageal reflux disease) Hypertension Rheumatoid arthritis Anemia (Acute) Coronary artery disease Pre-operative cardiovascular examination, myocardial ischemia Atherogenic dyslipidemia Heart failure with preserved ejection fraction Fall Lumbar radiculopathy Low back pain Lower extremity weakness Degenerative spondylolisthesis Parainfluenza virus bronchitis Chronic low back pain Scoliosis of lumbar region due to degenerative disease of spine in adult Dislocation of hip, right, closed (Acute) Septic joint of right knee joint COVID-19 (Acute) Incisional hernia Incarcerated intra-abdominal hernia (Acute) Abdominal pain (Acute) Adjustment disorder with mixed anxiety and depressed mood Sepsis (Acute) Elevated lactic acid level (Acute) Medical History Sepsis Septicemia due to Streptococcus pneumoniae Respiratory failure with hypoxia Hypomagnesemia Pneumonia Benign essential hypertension Lumbar stenosis Hx of staphylococcal infection 03/2022, w/"bacterial infection" at the same, in the rt. knee, occurrred during atrial fibrillation episode. "when he woke up, he couldn't walk." Atrial fibrillation episode occurred in 03/2022, taken to [facility] in [place], admitted to ICU for 1-2 weeks (was not intubated, but wasn't "awake either"), then to cardiac unit, then to rehab at [facility]; f/u dr. guerar in [place]>will be starting to see a dispatch machine runner at [facility] 2nd week of 08/2022 Myocardial Infarction "a silent one, 2019" Sleep apnea no device Surgical History Hx of Achilles tendon repair rt. Hx of knee surgery rt. patellar tendon repair Hx of rotator cuff surgery bilateral Hx of total knee replacement lt. Hx of total hip arthroplasty rt. History of colostomy reversal History of bowel resection for diverticulitis; w/colostomy placement for 3-4 months Hx of hernia repair near former colostomy site History of esophagogastroduodenoscopy (EGD) Hx of colonoscopy Last Colonoscopy 08/14/22, repeat 3 years in 2025 Hx of bilateral cataract extraction History of heart artery stent ~3 years ago, x2 stents, done in [place]; f/u dr guerra, [place]>will be seeing new cardio at [place] 2nd week of August 2022. History of cardiac cath ~3 years ago, SOB and "felt like throat was constricting", had "silent heart attack", x2 stents, done in [place] Family History Grandmother (Maternal) Diabetes Daughter Diabetes Father Suicide Hypertension Denies family history of Ovarian cancer Prostate cancer Myocardial infarction Breast cancer Lung cancer Colorectal cancer Stroke Social History Smoking Status: Never smoker Second Hand Exposure: No; Do You Dip or Chew Tobacco: No; Hx Alcohol Use: Yes Alcohol type: wine Alcohol Intake Frequency: 4 or More x per/Week Hx Substance Use: No Preferred Language: Mongolian Communication Ability: Effective Visual Impairment: Limited Hearing Ability: Normal Insurance Rater Required: No Beliefs That Will Affect Care: None marital status: Single Current Living Situation: Alone Current Living Situation Comment: Alone at Independent [facility] at [facility] current occupational status: retired How many Children do You have: 2 Feels Safe at Home: Yes Childhood Exposure to Second-Hand Smoke: Yes caffeine: Yes Dental Care, Regularly: Yes Physical Activity Frequency: Does not Exercise Seatbelt Use: always Sunscreen Use: Yes Assistive Devices: Walker and Wheelchair Allergies Allergies Allergy/AdvReac Type Severity Reaction Status Date / Time cat dander Allergy Severe CAT Verified 11/30/23 08:02 HAIR---Swelling of Lip/Tongue/Throat Home Meds Home Medications Medication Instructions Recorded Confirmed sennosides 8.6 mg capsule (senna) 17.2 mg PO QAM 06/19/22 12/15/23 ascorbic acid (vitamin C) 500 mg 1,000 mg PO QAM 08/07/22 12/15/23 capsule aspirin 81 mg tablet,delayed 81 mg PO QAM 08/07/22 12/15/23 release (Adult Low Dose Aspirin) coenzyme Q10 100 mg capsule 100 mg PO QAM 08/07/22 12/15/23 lactobacillus combination no.9 4 6,000 mmu cells PO QAM PRN use 08/07/22 12/15/23 billion cell capsule (Adult 50 with antibiotics Plus Probiotic) vpqdtajd-winnesr-veox-lutein tablet 1 tab PO QAM 08/07/22 12/15/23 thiamine HCl (vitamin B1) 100 mg 100 mg PO QAM 02/05/23 12/15/23 tablet melatonin 5 mg capsule 5 mg PO HS PRN Sleep 02/16/23 12/15/23 acetaminophen 500 mg capsule 1,000 mg PO TID Pain 08/21/23 12/15/23 latanoprost 0.005 % eye drops 1 drp ophthalmic (eye) QPM 08/21/23 12/15/23 doxycycline monohydrate 100 mg 100 mg PO BID 09/18/23 12/15/23 capsule upadacitinib 15 mg tablet,extended 15 mg PO DAILY 09/23/23 12/15/23 release 24 hr (Rinvoq) ranolazine 500 mg tablet,extended 500 mg PO BID 11/06/23 12/15/23 release,12 hr rivaroxaban 20 mg tablet (Xarelto) 20 mg PO DAILY 11/19/23 12/15/23 diclofenac sodium 1 % topical gel 2 g topical QID PRN Pain 12/15/23 12/15/23 (Voltaren Arthritis Pain) sennosides 8.6 mg tablet 8.6 mg PO HS 12/15/23 12/15/23 Previous Rx's Medication Instructions Recorded cholecalciferol (vitamin D3) 250 250 mcg PO DAILY 90 days #90 tabs 09/19/22 mcg (10,000 unit) tablet cyanocobalamin (vitamin B-12) 500 1,000 mcg (2 x 500 mcg) PO QAM #30 01/18/23 mcg tablet tabs hydroxyzine HCl 10 mg tablet 10 mg PO HS PRN anxiety or 01/18/23 insomnia #14 tabs gabapentin 400 mg capsule 400 mg PO TID 30 days #90 caps 09/03/23 olmesartan 5 mg tablet 5 mg PO DAILY 90 days #90 tabs 09/03/23 pravastatin 40 mg tablet 40 mg PO DAILY #90 tabs 09/03/23 metoprolol tartrate 25 mg tablet 12.5 mg (1/2 x 25 mg) PO BID 30 09/24/23 days #30 tabs isosorbide mononitrate 60 mg 60 mg PO QAM #90 tabs 10/08/23 tablet,extended release 24 hr mirtazapine 30 mg tablet 30 mg PO DAILY #90 tabs 10/13/23 amiodarone 200 mg tablet 200 mg PO DAILY #90 tabs 10/23/23 esomeprazole magnesium 40 mg 40 mg PO HS #90 caps 10/23/23 capsule,delayed release (Nexium) duloxetine 60 mg capsule,delayed 60 mg PO QAM #90 caps 10/29/23 release furosemide 20 mg tablet 20 mg PO DAILY PRN edema or weight 10/29/23 gain #30 tabs oxycodone 5 mg tablet 10 mg (2 x 5 mg) PO HS PRN Pain 11/19/23 #20 tabs Results & Data (ED) Vital Signs Vital Signs - 24 hr 12/14/23 19:47 12/14/23 19:55 Temperature 36.8 C Temperature Source Oral Pulse Rate 60 Pulse Strength Normal Respiratory Rate 18 Respiratory Effort / Characteristics Non-Labored Respiratory Depth Normal Normal Blood Pressure 138/81 Blood Pressure Mean 100 Pulse Oximetry 95 Oxygen Delivery Method Room Air Sepsis Recent Fever Within 48 Hours No Sepsis New/Unexplained Change in Mental Status No Sepsis Action Taken by Nursing No Action Required Laboratory Data Attestation: I reviewed the patient's lab results. 12/14/23 20:00 12/14/23 20:00 Lab Results 12/14/23 12/14/23 12/14/23 Range/Units 20:00 20:50 21:58 WBC 6.74 (4.8-10.8) K/ul RBC 3.48 L (4.70-6.10) M/uL Hgb 11.7 L (14.0-18.0) g/dl Hct 36.1 L (42.0-52.0) % MCV 103.7 H (80.0-100.0) fL MCH 33.6 (25.0-34.0) pg MCHC 32.4 (32.0-36.0) g/dL RDW Std Deviation 67.9 H (36.4-46.3) fL RDW Coeff of Sammie 17.6 H (11.5-14.5) % Plt Count 193 (130-400) K/uL MPV 10.2 (9.4-12.4) fL Immature Gran % (Auto) 0.3 % Neut % (Auto) 72.5 % Lymph % (Auto) 13.6 % [place] % (Auto) 11.6 % Eos % (Auto) 1.9 % Baso % (Auto) 0.1 % Neut # (Auto) 4.88 (1.40-6.50) K/uL Lymph # (Auto) 0.92 L (1.20-3.40) K/uL [place] # (Auto) 0.78 H (0.11-0.59) K/uL Eos # (Auto) 0.13 (0.00-0.50) K/uL Baso # (Auto) 0.01 (0.00-0.20) K/uL Immature Gran # (Auto) 0.02 (0.01-0.20) K/uL ESR 19 (0-20) mm/hr APTT Cancelled 33 H PTT Ratio Cancelled 1.2 Sodium 135 L (136-145) mmol/L Potassium 4.6 (3.5-5.1) mmol/L Chloride 102 (98-107) mmol/L Carbon Dioxide 28 (21-32) mmol/L Anion Gap 5 (3-11) BUN 33 H (6-23) mg/dl Creatinine 1.31 (0.6-1.4) mg/dl Est Cr Clr Drug Dosing 57.6 ml/min Est GFR ( Amer) 59.2 ml/min Est GFR (Non-Af Amer) 51.1 ml/min BUN/Creatinine Ratio 25.2 H (10-20) Glucose 97 (70-99(Fasting)) mg/dl Lactate 1.3 (0.4-2.0) mmol/L Calcium 9.0 (8.6-10.3) mg/dl Total Bilirubin 0.8 (0.2-1.0) mg/dl AST 41 H (13-39) U/L ALT 28 (7-52) U/L Alkaline Phosphatase 50 (34-104) U/L C-Reactive Protein 11.20 H (0-0.5) mg/dl Total Protein 6.4 (6.0-8.3) gm/dl Albumin 3.7 (3.4-5.0) gm/dl Globulin 2.7 (2.5-4.0) gm/dl Albumin/Globulin Ratio 1.4 (0.9-2) Procalcitonin 0.08 (0-0.5) ng/ml Adenovirus (PCR) Not Detected (NotDetected) B. pertussis DNA (PCR) Not Detected (NotDetected) B.parapertussis DNA PCR Not Detected (NotDetected) C. pneumoniae DNA (PCR) Not Detected (NotDetected) Coronavirus OC43 (PCR) Not Detected (NotDetected) Coronavirus HKU1 (PCR) Not Detected (NotDetected) Coronavirus 229E (PCR) Not Detected (NotDetected) SARS-CoV-2 (PCR) Not Detected (NotDetected) Coronavirus NL63 (PCR) Not Detected (NotDetected) Human Metapneumovir PCR Not Detected (NotDetected) Influenza Type A (PCR) Not Detected (NotDetected) Influenza Type B (PCR) Not Detected (NotDetected) M. pneumoniae (PCR) Not Detected (NotDetected) Parainfluenza 1 (PCR) Not Detected (NotDetected) Parainfluenza 2 (PCR) Not Detected (NotDetected) Parainfluenza 3 (PCR) Not Detected (NotDetected) Parainfluenza 4 (PCR) Not Detected (NotDetected) RSV (PCR) Not Detected (NotDetected) Entero/Rhino (PCR) Not Detected (NotDetected) Administered Medications Daptomycin 475 mg/ Syringe 9.5 mls @ 4.75 mls/min IV Q24H ELDER; Protocol Stop: 12/21/23 21:44 Last Admin: 12/14/23 22:09 Dose: 4.75 mls/min Documented By: CHIP Discontinued Medications Piperacillin Sod/Tazobactam Sod (Zosyn) 4.5 gm in 100 mls @ 200 mls/hr IV NOW ONE Stop: 12/14/23 22:12 Last Infusion: 12/14/23 22:42 Dose: Infused Documented By: Admin: 12/14/23 22:09 Dose: 200 mls/hr Documented By: CHIP Discharge Plan Visit Data Chief Complaint: Infection, Wound Stated Complaint: R LEG WOUND/POSSIBLE INFECTION ED Provider: Lorenzo Briscoe Discharge Problem: Cellulitis of right lower extremity, History of immunosuppressive therapy, Venous ulcer of right leg Patient Disposition: Admitted As Inpatient Discharge Instructions Interventions: ED Discharge Assessment Last Done: 12/14/23 23:48
[2023-12-14 21:32] LABS: Partial Thromboplastin Ratio 1.2; Partial Thromboplastin Time 33 Seconds (21-31)
[2023-12-14] MEDS: PIPERACILLIN/TAZOBACTAM 4.5 GM/100 ML BAG IV ONE (22:09)
[2023-12-14] MEDS: DAPTOmycin 475 MG in SYRINGE 0 ML IV SCH (22:09)
[2023-12-14 23:00] LABS: Adenovirus PCR Not Detected (NotDetected); Bordetella parapertussis PCR Not Detected (NotDetected); Bordetella pertussis PCR Not Detected (NotDetected); Chlamydia pneumoniae PCR Not Detected (NotDetected); Coronavirus 229E PCR Not Detected (NotDetected); Coronavirus CoV-2 (COVID19)PCR Not Detected (NotDetected); Coronavirus HKU1 PCR Not Detected (NotDetected); Coronavirus NL63 PCR Not Detected (NotDetected); Coronavirus OC43PCR Not Detected (NotDetected); Human Metapneumovirus PCR Not Detected (NotDetected); Influenza A PCR Not Detected (NotDetected); Influenza B PCR Not Detected (NotDetected); Mycoplasma pneumoniae PCR Not Detected (NotDetected); Parainfluenza Virus 1 PCR Not Detected (NotDetected); Parainfluenza Virus 2 PCR Not Detected (NotDetected); Parainfluenza Virus 3 PCR Not Detected (NotDetected); Parainfluenza Virus 4 PCR Not Detected (NotDetected); Respiratory Syncytial VirusPCR Not Detected (NotDetected); Rhinovirus/Enterovirus PCR Not Detected (NotDetected)
--- NOTE | 2023-12-14 23:00 | History & Physical Report ---
Date of Service December 14, 2023 Assessment & Plan (1) Cellulitis of right lower extremity: (2) Lymphangitis of lower extremity: (3) Sepsis due to skin infection: (4) Venous stasis ulcers of both lower extremities: (5) Idiopathic polyneuropathy: (6) History of immunosuppressive therapy: (7) Atrial fibrillation: (8) GERD (gastroesophageal reflux disease): (9) Rheumatoid arthritis: (10) Heart failure with preserved ejection fraction: Plan Cellulitis of right lower extremity/ascending lymphangitis/chronic venous insufficiency- History of MRSA bacteremia 04/22/2023 History of Enterobacter cloacae bacteremia 11/05/2023 Daptomycin 6 mg/kg IV daily Zosyn 4.5 g IV every 8 hours Follow wound culture and sensitivity Follow blood culture and sensitivity Consult wound care Long-term consideration for Unna boots Recent arterial studies negative for PAD Will likely need PICC line for long-term IV antibiotics Hold doxycycline 100 mg p.o. twice daily that has been on for prophylaxis Atrial fibrillation/hypertension/HFrEF improved HFpEF- Continue amiodarone, aspirin, ranolazine, isosorbide mononitrate, Xarelto, and metoprolol tartrate Hold olmesartan Rheumatoid arthritis- Upadacitinib on hold Mixed anxiety and depression disorder- Continue mirtazapine, melatonin and duloxetine History of Present Illness Chief Complaint: The patient presents to the emergency department due to increased swelling, e rythema, pain of right lower extremity noted upon waking up this morning and worsening as the day progressed Primary Care Provider: Danny Soliman DO The patient is an 78-year-old male with a past medical history including gram- negative bacteremia, right lower extremity cellulitis, JEFFERY superimposed on CKD, left lower extremity venous ulcer, MRSA bacteremia, idiopathic polyneuropathy, left foot pressure ulcer stage III, NSTEMI, acute on chronic HFpEF, metabolic encephalopathy, immunosuppressive treatment for rheumatoid arthritis, and adjustment disorder with mixed anxiety and depressed mood. The patient has been following with wound care for bilateral lower extremity ulcerations and cellulitis, and has been on doxycycline 100 mg twice daily for prophylaxis. He had been at [facility] rehab, and was transferred to [facility] this morning, where he lives. He noted this morning that his right lower extremity had swollen considerably, and developed progressive redness and discomfort as the day progressed. For this reason he presented to the ED for assessment this evening, with his daughter in attendance. Allergies Allergy/AdvReac Type Severity Reaction Status Date / Time cat dander Allergy Severe CAT Verified 11/30/23 08:02 HAIR---Swelling of Lip/Tongue/Throat Home Medications Medication Instructions Recorded Confirmed Type sennosides 8.6 mg capsule (senna) 8.6 mg PO AMHS 06/19/22 11/30/23 History ascorbic acid (vitamin C) 500 mg 1,000 mg PO QAM 08/07/22 11/30/23 History capsule aspirin 81 mg tablet,delayed 81 mg PO QAM 08/07/22 11/30/23 History release (Adult Low Dose Aspirin) coenzyme Q10 100 mg capsule 100 mg PO QAM 08/07/22 11/30/23 History lactobacillus combination no.9 4 6,000 mmu cells PO QAM PRN use 08/07/22 11/30/23 History billion cell capsule (Adult 50 with antibiotics Plus Probiotic) tfyeoetw-igqiick-rmab-lutein tablet 1 tab PO QAM 08/07/22 11/30/23 History cholecalciferol (vitamin D3) 250 250 mcg PO DAILY 90 days #90 tabs 09/19/22 11/30/23 Rx mcg (10,000 unit) tablet cyanocobalamin (vitamin B-12) 500 1,000 mcg (2 x 500 mcg) PO QAM #30 01/18/23 11/30/23 Rx mcg tablet tabs hydroxyzine HCl 10 mg tablet 10 mg PO HS PRN anxiety or 01/18/23 11/30/23 Rx insomnia #14 tabs thiamine HCl (vitamin B1) 100 mg 100 mg PO QAM 02/05/23 11/30/23 History tablet melatonin 5 mg capsule 5 mg PO HS PRN Sleep 02/16/23 11/30/23 History diclofenac sodium 1 % topical gel 2 g topical QID #200 grams 04/24/23 11/30/23 Rx (Voltaren Arthritis Pain) acetaminophen 500 mg capsule 500 mg PO TID PRN Pain 08/21/23 11/30/23 History latanoprost 0.005 % eye drops 1 drp ophthalmic (eye) QPM 08/21/23 11/30/23 History gabapentin 400 mg capsule 400 mg PO TID 30 days #90 caps 09/03/23 11/30/23 Rx olmesartan 5 mg tablet 5 mg PO DAILY 90 days #90 tabs 09/03/23 11/30/23 Rx pravastatin 40 mg tablet 40 mg PO DAILY #90 tabs 09/03/23 11/30/23 Rx doxycycline monohydrate 100 mg 100 mg PO BID 09/18/23 11/30/23 History capsule upadacitinib 15 mg tablet,extended 15 mg PO DAILY 09/23/23 11/30/23 History release 24 hr (Rinvoq) metoprolol tartrate 25 mg tablet 12.5 mg (1/2 x 25 mg) PO BID 30 09/24/23 11/30/23 Rx days #30 tabs isosorbide mononitrate 60 mg 60 mg PO QAM #90 tabs 10/08/23 11/30/23 Rx tablet,extended release 24 hr mirtazapine 30 mg tablet 30 mg PO DAILY #90 tabs 10/13/23 11/30/23 Rx amiodarone 200 mg tablet 200 mg PO DAILY #90 tabs 10/23/23 11/30/23 Rx esomeprazole magnesium 40 mg 40 mg PO HS #90 caps 10/23/23 11/30/23 Rx capsule,delayed release (Nexium) duloxetine 60 mg capsule,delayed 60 mg PO QAM #90 caps 10/29/23 11/30/23 Rx release furosemide 20 mg tablet 20 mg PO DAILY PRN edema or weight 10/29/23 11/30/23 Rx gain #30 tabs ranolazine 500 mg tablet,extended 500 mg PO BID 11/06/23 11/30/23 History release,12 hr oxycodone 5 mg tablet 10 mg (2 x 5 mg) PO HS PRN Pain 11/19/23 11/30/23 Rx #20 tabs rivaroxaban 20 mg tablet (Xarelto) 20 mg PO DAILY 11/19/23 11/30/23 History Past Med/Surg History Problem List (Updated 12/14/23 @ 23:45 by Himanshu Wienstein MD) Lymphangitis of lower extremity Hypomagnesemia (Acute) Fever (Acute) Open wound of left upper arm Open wound of left arm with tendon injury Gram-negative bacteremia Cellulitis of right lower extremity Sepsis due to skin infection Generalized weakness (Acute) Elevated procalcitonin (Acute) Acute kidney injury superimposed on chronic kidney disease (Acute) Sepsis (Acute) Skin tear of right upper extremity (Acute) Open wound of left foot (Acute) Open wound of right foot (Acute) Skin tear of right hand without complication (Acute) Venous ulcer of left leg (Acute) Traumatic open wound of right lower leg (Acute) Elevated LFTs Venous stasis ulcers of both lower extremities MRSA bacteremia Dislocation, hip closed (Acute) Dislocation, hip, posterior Rotator cuff arthropathy of both shoulders Idiopathic polyneuropathy Abrasion of right knee (Acute) History of immunosuppressive therapy Pain of right hip Prophylactic antibiotic History of sepsis Left shoulder pain Acquired foot deformity (Chronic) Traumatic wound (Acute) Pressure ulcer of left foot, stage 3 (Acute) Abnormal ankle brachial index (Acute) Right knee pain Cellulitis of knee, right (Acute) Non-ST elevation DE (NSTEMI) (Acute) Leukocytosis (Acute) Sepsis (Acute) Myoclonus Cervical radiculopathy Neuropathy Weakness On amiodarone therapy Weakness of right hip DVT prophylaxis Constipation Acute on chronic diastolic congestive heart failure Sepsis following procedure Wheezing Rhabdomyolysis MRSA infection History of CHF (congestive heart failure) Visual disturbance Hyponatremia Hypotension Acute metabolic encephalopathy Severe sepsis Abdominal wall abscess (Acute) Atrial fibrillation HFrEF (heart failure with reduced ejection fraction) EF 40% Mar 2022, improved 55-60% August 2022 Lumbar stenosis Osteoarthritis of right knee Anxiety and depression GERD (gastroesophageal reflux disease) Hypertension Rheumatoid arthritis Anemia (Acute) Coronary artery disease Pre-operative cardiovascular examination, myocardial ischemia Atherogenic dyslipidemia Heart failure with preserved ejection fraction Fall Lumbar radiculopathy Low back pain Lower extremity weakness Degenerative spondylolisthesis Parainfluenza virus bronchitis Chronic low back pain Scoliosis of lumbar region due to degenerative disease of spine in adult Dislocation of hip, right, closed (Acute) Septic joint of right knee joint COVID-19 (Acute) Incisional hernia Incarcerated intra-abdominal hernia (Acute) Abdominal pain (Acute) Adjustment disorder with mixed anxiety and depressed mood Sepsis (Acute) Elevated lactic acid level (Acute) Medical History Sepsis Septicemia due to Streptococcus pneumoniae Respiratory failure with hypoxia Hypomagnesemia Pneumonia Benign essential hypertension Lumbar stenosis Hx of staphylococcal infection 03/2022, w/"bacterial infection" at the same, in the rt. knee, occurrred during atrial fibrillation episode. "when he woke up, he couldn't walk." Atrial fibrillation episode occurred in 03/2022, taken to [facility] in [place], admitted to ICU for 1-2 weeks (was not intubated, but wasn't "awake either"), then to cardiac unit, then to rehab at [facility] in [place]; f/u dr. guerra in [place]>will be starting to see a parboiler at [facility] 2nd week of 08/2022 Myocardial Infarction "a silent one, 2019" Sleep apnea no device Surgical History Hx of Achilles tendon repair rt. Hx of knee surgery rt. patellar tendon repair Hx of rotator cuff surgery bilateral Hx of total knee replacement lt. Hx of total hip arthroplasty rt. History of colostomy reversal History of bowel resection for diverticulitis; w/colostomy placement for 3-4 months Hx of hernia repair near former colostomy site History of esophagogastroduodenoscopy (EGD) Hx of colonoscopy Last Colonoscopy 08/14/22, repeat 3 years in 2025 Hx of bilateral cataract extraction History of heart artery stent ~3 years ago, x2 stents, done in [place]; f/u dr guerra, [place]>will be seeing new cardio at [facility] of August 2022. History of cardiac cath ~3 years ago, SOB and "felt like throat was constricting", had "silent heart attack", x2 stents, done in [place] Family History Grandmother (Maternal) Diabetes Daughter Diabetes Father Suicide Hypertension Denies family history of Ovarian cancer Prostate cancer Myocardial infarction Breast cancer Lung cancer Colorectal cancer Stroke Social History Smoking Status: Never smoker Second Hand Exposure: No; Do You Dip or Chew Tobacco: No; Hx Alcohol Use: Yes Alcohol type: wine Alcohol Intake Frequency: 4 or More x per/Week Hx Substance Use: No Preferred Language: Polish Communication Ability: Effective Visual Impairment: Limited Hearing Ability: Normal Raiser Helper Required: No Beliefs That Will Affect Care: None marital status: Single Current Living Situation: Alone Current Living Situation Comment: Alone at Independent Living at [facility] current occupational status: retired How many Children do You have: 2 Feels Safe at Home: Yes Childhood Exposure to Second-Hand Smoke: Yes caffeine: Yes Dental Care, Regularly: Yes Physical Activity Frequency: Does not Exercise Seatbelt Use: always Sunscreen Use: Yes Assistive Devices: Walker and Wheelchair Review of Systems Review of Systems: The patient denies chest pain, palpitations, shortness of breath, dyspnea on exertion, cough, sore throat, fevers, chills, sweats, nausea, vomiting, diarrhea , constipation, abdominal pain, pelvic pain, blood in urine or stool, dysuria, urinary frequency or urgency, lightheadedness, dizziness, headache, memory loss, loss of consciousness, focal weakness, numbness or tingling in arms, back or neck pain, or night sweats. The review of systems is otherwise negative other than for that already noted above, and at least 10 systems have been reviewed. Physical Exam Physical Exam: The patient is awake, alert and oriented 3, well developed and well nourished, normocephalic and atraumatic, lying in bed and in no acute distress. HEENT--PERRL, EOMI, mucous membranes and oropharynx normal Neck--supple. No JVD. No bruits. Thyroid normal, trachea midline, no adeno binta. Heart--normal S1 and S2. No murmurs, rubs or gallops. Lungs--clear bilaterally, no respiratory distress, no accessory muscle use. Abdomen--normal bowel sounds and soft. Nontender. Nondistended. Obese Extremities--right lower extremity with moderately severe erythema, swelling and warmth, with tracking up medial thigh. Left lower extremity with mild erythema Dermatologic--see above Neurologic--cranial nerves II through XII grossly intact. Rheumatologic--limited lower extremity due to infection Psychiatric--normal affect. Results & Data Results & Data Vital Signs (Past 12 Hours) Vital Signs Temp Pulse Resp BP Pulse Ox O2 Del Method 12/14/23 19:47 36.8 C 60 18 138/81 95 Room Air Laboratory Results Laboratory Results WBC 6.74 K/ul (4.8-10.8) 12/14/23 20:00 RBC 3.48 M/uL (4.70-6.10) L 12/14/23 20:00 Hgb 11.7 g/dl (14.0-18.0) L 12/14/23 20:00 Hct 36.1 % (42.0-52.0) L 12/14/23 20:00 MCV 103.7 fL (80.0-100.0) H 12/14/23 20:00 MCH 33.6 pg (25.0-34.0) 12/14/23 20:00 MCHC 32.4 g/dL (32.0-36.0) 12/14/23 20:00 RDW Std Deviation 67.9 fL (36.4-46.3) H 12/14/23 20:00 RDW Coeff of Sammie 17.6 % (11.5-14.5) H 12/14/23 20:00 Plt Count 193 K/uL (130-400) 12/14/23 20:00 MPV 10.2 fL (9.4-12.4) 12/14/23 20:00 Immature Gran % (Auto) 0.3 % 12/14/23 20:00 Neut % (Auto) 72.5 % 12/14/23 20:00 Lymph % (Auto) 13.6 % 12/14/23 20:00 Alpine % (Auto) 11.6 % 12/14/23 20:00 Eos % (Auto) 1.9 % 12/14/23 20:00 Baso % (Auto) 0.1 % 12/14/23 20:00 Neut # (Auto) 4.88 K/uL (1.40-6.50) 12/14/23 20:00 Lymph # (Auto) 0.92 K/uL (1.20-3.40) L 12/14/23 20:00 Alpine # (Auto) 0.78 K/uL (0.11-0.59) H 12/14/23 20:00 Eos # (Auto) 0.13 K/uL (0.00-0.50) 12/14/23 20:00 Baso # (Auto) 0.01 K/uL (0.00-0.20) 12/14/23 20:00 Immature Gran # (Auto) 0.02 K/uL (0.01-0.20) 12/14/23 20:00 ESR 19 mm/hr (0-20) 12/14/23 20:00 APTT 33 Seconds (21-31) H 12/14/23 20:50 PTT Ratio 1.2 12/14/23 20:50 Sodium 135 mmol/L (136-145) L 12/14/23 20:00 Potassium 4.6 mmol/L (3.5-5.1) 12/14/23 20:00 Chloride 102 mmol/L (98-107) 12/14/23 20:00 Carbon Dioxide 28 mmol/L (21-32) 12/14/23 20:00 Anion Gap 5 (3-11) 12/14/23 20:00 BUN 33 mg/dl (6-23) H 12/14/23 20:00 Creatinine 1.31 mg/dl (0.6-1.4) 12/14/23 20:00 Est Cr Clr Drug Dosing 57.6 ml/min 12/14/23 20:00 Est GFR ( Amer) 59.2 ml/min 12/14/23 20:00 Est GFR (Non-Af Amer) 51.1 ml/min 12/14/23 20:00 BUN/Creatinine Ratio 25.2 (10-20) H 12/14/23 20:00 Glucose 97 mg/dl (70-99(Fasting)) 12/14/23 20:00 Lactate 1.3 mmol/L (0.4-2.0) 12/14/23 21:58 Calcium 9.0 mg/dl (8.6-10.3) 12/14/23 20:00 Total Bilirubin 0.8 mg/dl (0.2-1.0) 12/14/23 20:00 AST 41 U/L (13-39) H 12/14/23 20:00 ALT 28 U/L (7-52) 12/14/23 20:00 Alkaline Phosphatase 50 U/L (34-104) 12/14/23 20:00 C-Reactive Protein 11.20 mg/dl (0-0.5) H 12/14/23 20:00 Total Protein 6.4 gm/dl (6.0-8.3) 12/14/23 20:00 Albumin 3.7 gm/dl (3.4-5.0) 12/14/23 20:00 Globulin 2.7 gm/dl (2.5-4.0) 12/14/23 20:00 Albumin/Globulin Ratio 1.4 (0.9-2) 12/14/23 20:00 Procalcitonin 0.08 ng/ml (0-0.5) 12/14/23 20:00 Adenovirus (PCR) Not Detected (NotDetected) 12/14/23 21:58 B. pertussis DNA (PCR) Not Detected (NotDetected) 12/14/23 21:58 B.parapertussis DNA PCR Not Detected (NotDetected) 12/14/23 21:58 C. pneumoniae DNA (PCR) Not Detected (NotDetected) 12/14/23 21:58 Coronavirus OC43 (PCR) Not Detected (NotDetected) 12/14/23 21:58 Coronavirus HKU1 (PCR) Not Detected (NotDetected) 12/14/23 21:58 Coronavirus 229E (PCR) Not Detected (NotDetected) 12/14/23 21:58 SARS-CoV-2 (PCR) Not Detected (NotDetected) 12/14/23 21:58 Coronavirus NL63 (PCR) Not Detected (NotDetected) 12/14/23 21:58 Human Metapneumovir PCR Not Detected (NotDetected) 12/14/23 21:58 Influenza Type A (PCR) Not Detected (NotDetected) 12/14/23 21:58 Influenza Type B (PCR) Not Detected (NotDetected) 12/14/23 21:58 M. pneumoniae (PCR) Not Detected (NotDetected) 12/14/23 21:58 Parainfluenza 1 (PCR) Not Detected (NotDetected) 12/14/23 21:58 Parainfluenza 2 (PCR) Not Detected (NotDetected) 12/14/23 21:58 Parainfluenza 3 (PCR) Not Detected (NotDetected) 12/14/23 21:58 Parainfluenza 4 (PCR) Not Detected (NotDetected) 12/14/23 21:58 RSV (PCR) Not Detected (NotDetected) 12/14/23 21:58 Entero/Rhino (PCR) Not Detected (NotDetected) 12/14/23 21:58 Code Status & VTE Plan Code Status Full code VTE Prophylaxis Plan VTE Prophylaxis will be ordered: Yes PG Care Time/CCT Total # of Minutes Spent Total Time Spent with Patient: Total time spent is greater than 50% in coordination of care (as documented) at patient's floor/unit and/or counseling patient: Coding Level of Care Code 10144 INT INP/OBS CARE MIN Diagnoses Cellulitis of right lower extremity L03.115 Lymphangitis of lower extremity I89.1 Sepsis due to skin infection A41.9; L08.9 Venous stasis ulcers of both lower extremities I83.019; I83.029; L97.919; L97.929 Idiopathic polyneuropathy G60.9 History of immunosuppressive therapy Z92.25 Atrial fibrillation I48.91 GERD (gastroesophageal reflux disease) K21.9 Rheumatoid arthritis, involving unspecified site, unspecified whether rheumatoid factor present M06.9 Rheumatoid arthritis location: unspecified site Rheumatoid factor presence: unspecified presence Heart failure with preserved ejection fraction I50.30 (9) Rheumatoid arthritis Rheumatoid arthritis location: unspecified site Rheumatoid factor presence: unspecified presence Qualified Code(s): M06.9 - Rheumatoid arthritis, unspecified
[2023-12-14 23:08] LABS: C Reactive Protein 11.2 mg/dl (0-0.5)
[2023-12-15] MEDS ORDERED: ONDANSETRON INJ 2 MG/ML 2 ML VIAL IV PRN (00:29)
[2023-12-15] MEDS ORDERED: ACETAMINOPHEN 325 MG TAB PO PRN (00:29)
[2023-12-15] MEDS ORDERED: MoRPHine SULFATE 4 MG/ML 1 ML CARP\\VIAL IV PRN ×2 (00:29)
[2023-12-15] MEDS: oxyCODONE HCL IR 5 MG TAB (IMMEDIATE RELEASE) PO PRN (01:09)
[2023-12-15] MEDS: LATANOPROST 0.005% OP SOLN 2.5 ML BTL OP SCH (01:39)
[2023-12-15] MEDS: PIPERACILLIN/TAZOBACTAM 4.5 GM in DEXTROSE 5% MINI-B 100 ML IV SCH (05:01)
[2023-12-15 06:31] LABS: Basophils # (auto) 0.02 K/uL (0.00-0.20); Basophils % (auto) 0.3 %; Eosinophils # (auto) 0.13 K/uL (0.00-0.50); Eosinophils % (auto) 2.3 %; Hematocrit (blood only) 32.8 % (42.0-52.0); Hemoglobin 10.7 g/dl (14.0-18.0); Immature Granulocytes # (auto) 0.02 K/uL (0.01-0.20); Immature Granulocytes % (auto) 0.3 %; Lymphocytes # (auto) 0.66 K/uL (1.20-3.40); Lymphocytes % (auto) 11.5 %; Mean Corpuscular Hemoglobin 32.9 pg (25.0-34.0); Mean Corpuscular Hgb Conc 32.6 g/dL (32.0-36.0); Mean Corpuscular Volume 100.9 fL (80.0-100.0); Monocytes # (auto) 0.74 K/uL (0.11-0.59); Monocytes % (auto) 12.8 %; Neutrophils # (auto) 4.19 K/uL (1.40-6.50); Neutrophils % (auto) 72.8 %; Platelet Count 165 K/uL (130-400); RDW Coefficient of Variation 17.3 % (11.5-14.5); Red Blood Count 3.25 M/uL (4.70-6.10); White Blood Count 5.76 K/ul (4.8-10.8)
[2023-12-15 06:53] LABS: Albumin Level 3.3 gm/dl (3.4-5.0); Calcium 8.4 mg/dl (8.6-10.3); Creatinine Clr Calc Pharmacy 62.3 ml/min; Est GFR (African American) 64.5 ml/min; Est GFR (Non-African American) 55.6 ml/min; Magnesium 1.8 mg/dl (1.7-2.4); Potassium 4.2 mmol/L (3.5-5.1)
--- NOTE | 2023-12-15 06:56 | XRay Report ---
XR knee RT 1 or 2V routine HISTORY: 78 years-old Male cellulitis acute pain of the right lower extremity COMPARISON: Tibia/fibular radiographs of same day TECHNIQUE: 2 views of the right knee FINDINGS: Moderate circumferential soft tissue swelling. Total joint arthroplasty with patellar resurfacing. Sm all joint effusion. Arterial calcifications. No acute fracture, dislocation or evidence of hardware c omplication. IMPRESSION: Soft tissue swelling without acute osseous abnormality. ACT 112: Negative or not required by law. The above report was generated using voice recognition software. It may contain grammatical, syntax o r spelling errors. Electronically signed by: Geo Clayton M.D. 12/15/2023 6:55 AM
--- NOTE | 2023-12-15 06:58 | XRay Report ---
XR chest 1V portable HISTORY: 78 years-old Male fever, immunecompromised acute fever COMPARISON: 12/12/2023 TECHNIQUE: AP view of the chest FINDINGS: Cardiac silhouette is enlarged. Calcified granuloma in the right lung base with calcified right hilar lymph node. No pneumothorax or pleural effusion. No airspace consolidation typical for pneumonia. De generative changes of the shoulders and spine. Metallic density focus projects over the right shoulde r. IMPRESSION: Cardiomegaly without acute process. ACT 112: Negative or not required by law. The above report was generated using voice recognition software. It may contain grammatical, syntax o r spelling errors. Electronically signed by: Geo Clayton M.D. 12/15/2023 6:57 AM
[2023-12-15 07:11] LABS: INR 1.1 (0.9-1.1); Partial Thromboplastin Ratio 1.2; Partial Thromboplastin Time 31 Seconds (21-31); Prothrombin Time 12.1 Seconds (9.0-12.0)
--- NOTE | 2023-12-15 08:16 | XRay Report ---
XR foot RT 2V CLINICAL HISTORY: cellulitis COMPARISON STUDY: None. FINDINGS: Soft tissue swelling within the right foot. No fracture or dislocation. The Lisfranc joint is intact. [id number]-ek-[id number] degenerative changes. Vascular calcifications are present. There is a kandace ntar heel spur. No destructive changes to suggest an osteomyelitis. IMPRESSION: 1. Soft tissue swelling within the right foot. 2. No bony destructive changes to suggest an osteomyelitis. ACT 112: Negative or not required by law. Electronically signed by: Kendall No M.D. 12/15/2023 8:14 AM
--- NOTE | 2023-12-15 08:17 | XRay Report ---
XR tibia fibula RT 2V CLINICAL HISTORY: cellulitis COMPARISON STUDY: None. FINDINGS: Soft tissue swelling throughout the right lower leg. No fracture or dislocation. Vascular c alcifications are noted. No bony destructive changes identified. A right total knee arthroplasty. The hardware appears intact. IMPRESSION: Soft tissue swelling throughout the right lower leg. No bony destructive changes to sugg est an osteomyelitis. ACT 112: Negative or not required by law. Electronically signed by: Kendall No M.D. 12/15/2023 8:15 AM
[2023-12-15] MEDS: RANOLAZINE 500 MG ER TAB PO SCH (08:47)
[2023-12-15] MEDS: SENNA 8.6 MG TAB PO SCH (08:47)
[2023-12-15] MEDS: CHOLECALCIFEROL 125 MCG (5,000 UNITS) TAB PO SCH (08:47)
[2023-12-15] MEDS: CEROVITE ADV FORMULA TAB PO SCH (08:48)
[2023-12-15] MEDS: ISOSORBIDE MONO EXTENDED REL 60 MG TABCR PO SCH (08:48)
[2023-12-15] MEDS: THIAMINE HCL 100 MG TAB PO SCH (08:48)
[2023-12-15] MEDS: ADVANCED PROBIOTIC 625 MG CAPSULE PO SCH (08:48)
[2023-12-15] MEDS: METOPROLOL TARTRATE 25 MG TAB PO SCH (08:48)
[2023-12-15] MEDS: DULoxetine HCL 60 MG CAP PO SCH (08:49)
[2023-12-15] MEDS: GABAPENTIN 400 MG CAP PO SCH (08:49)
[2023-12-15] MEDS: ASCORBIC ACID 500 MG TAB PO SCH (08:49)
[2023-12-15] MEDS: ASPIRIN 81 MG ECTAB PO SCH (08:49)
[2023-12-15] MEDS: AMIODARONE 200 MG TAB PO SCH (08:49)
[2023-12-15] MEDS: CYANOCOBALAMIN (B-12) 500 MCG TABLET PO SCH (08:49)
[2023-12-15] MEDS ORDERED: NON-FORMULARY MEDICATION (Coenzyme Q10 100 mg capsule) PO SCH (09:00)
[2023-12-15] MEDS ORDERED: PRAVASTATIN SOD 40 MG TAB PO SCH (09:00)
--- NOTE | 2023-12-15 14:36 | Hospitalist Progress Note ---
Date of Service December 15, 2023 Assessment & Plan (1) Cellulitis of right lower extremity: Plan: Recurrent. Currently on Zosyn and daptomycin, day 2. Wound care consultation requested. Infectious disease consultation also requested. (2) Lymphangitis of lower extremity: Plan: Bilateral lower extremity chronic venous insufficiency. Supportive care (3) Sepsis due to skin infection: Plan: Continue intravenous antibiotic therapy. Await blood culture results. ID consultation requested (4) Atrial fibrillation: Plan: Paroxysmal. Currently in normal sinus rhythm. Continue Xarelto therapy. Telemetry (5) Rheumatoid arthritis: Plan: Chronic immunosuppressive therapy but not steroid-dependent. Supportive care. Pain control measures (6) Heart failure with preserved ejection fraction: Plan: Chronic. Currently stable. Monitor intake and output. Plan Hopeful return to [facility] at the time of discharge Admission and Anticipated Discharge Date Admission Date: December 14, 2023 Subjective Alert and oriented. No distress. He remains on Zosyn and daptomycin, day 2. Infectious disease consultation recommended. Blood cultures are pending. He states he takes oxycodone chronically and this has been ordered as needed. Review of Systems 2 Review of Systems: Constitutional-no fever or chills ENT-no blurred vision, no double vision, no epistaxis, no sore throat Respiratory-no cough, no wheezing, no shortness of breath Cardiac-no palpitations, no chest pain, no syncope GI-no nausea, vomiting, diarrhea, melena, hematochezia -no urinary retention, no urinary incontinence, no dysuria, no hematuria Musculoskeletal-chronic bilateral lower extremity pain. No muscle tenderness Skin-no bruising, no rashes, no pruritus Neuro-no isolated weakness, no paresthesia Psych-no depression, no anxiety Physical Exam 2 Physical Exam: General-alert and oriented x3, no fever, no chills HEENT-head atraumatic and normocephalic, pupils equal and reactive to light, extraocular muscles intact Neck-no lymphadenopathy or thyromegaly, trachea midline Chest-clear to auscultation. No rales, wheezing or rhonchi Cardiac-regular rate and rhythm, normal S1 and S2 Abdomen-normal bowel sounds, no hepatosplenomegaly Extremities-chronic appearing bilateral lower extremity edema with chronic venous insufficiency. Bilateral lower extremity erythema below the knees. Neuro-cranial nerves II through XII intact, motor and sensory function within normal limits, strength symmetrical with generalized weakness, no focal deficits Psych-depressed affect Results & Data Results & Data Vital Signs (Past 12 Hours) Vital Signs Temp Pulse Resp BP Pulse Ox O2 Del Method 12/15/23 11:21 36.4 C L 65 18 114/69 93 Room Air 12/15/23 07:31 36.6 C 72 19 126/74 94 Room Air 12/15/23 03:29 36.8 C 81 17 120/69 91 Room Air Laboratory Results 12/15/23 05:47 12/15/23 05:47 PG Care Time/CCT Total # of Minutes Spent Total Time Spent with Patient: Total time spent is greater than 50% in coordination of care (as documented) at patient's floor/unit and/or counseling patient: Coding Level of Care Code 40374 SUB INP/OBS CARE 3/50MIN Diagnoses Cellulitis of right lower extremity L03.115 Lymphangitis of lower extremity I89.1 Sepsis due to skin infection A41.9; L08.9 Atrial fibrillation I48.91 Rheumatoid arthritis, involving unspecified site, unspecified whether rheumatoid factor present M06.9 Rheumatoid arthritis location: unspecified site Rheumatoid factor presence: unspecified presence Heart failure with preserved ejection fraction I50.30 (5) Rheumatoid arthritis Rheumatoid arthritis location: unspecified site Rheumatoid factor presence: u nspecified presence Qualified Code(s): M06.9 - Rheumatoid arthritis, unspecified
[2023-12-15] MEDS: RIVAROXABAN 20 MG TAB PO SCH (17:16)
[2023-12-15] MEDS: PANTOprazole 40 MG TAB PO SCH (20:49)
[2023-12-15] MEDS: MIRTAZAPINE TAB 15 MG TAB PO SCH (20:49)
[2023-12-15] MEDS: ACETAMINOPHEN 325 MG TAB PO SCH (20:50)
[2023-12-15] MEDS: DAPTOmycin 550 MG in SYRINGE 0 ML IV SCH (20:54)
[2023-12-15] MEDS ORDERED: LATANOPROST 0.005% OP SOLN 2.5 ML BTL OP SCH (21:00)
[2023-12-15 21:55] LABS: A calco-baum cmplx NotReported Not Detected (NotDetected); Bact fragilis Not Reported Not Detected (NotDetected); Blood Culture Id Panel See PCR Comment (NotDetected); C auris Not Reported Not Detected (NotDetected); Calbicans Not Reported Not Detected (NotDetected); Candida glabrata Not Reported Not Detected (NotDetected); Candida krusei Not Reported Not Detected (NotDetected); Cneoformans/gatti Not Reported Not Detected (NotDetected); Cparapsilosis Not Reported Not Detected (NotDetected); E cloacae compx Not Reported Not Detected (NotDetected); Efaecalis Not Reported Not Detected (NotDetected); Efaecium Not Reported Not Detected (NotDetected); Enterobacterales Not Reported Not Detected (NotDetected); Escherichia coli Not Reported Not Detected (NotDetected); H influenzae Not Reported Not Detected (NotDetected); K aerogenes Not Reported Not Detected (NotDetected); Koxytoca Not Reported Not Detected (NotDetected); Kpneumoniae grp Not Reported Not Detected (NotDetected); Lmonocyt Not Reported Not Detected (NotDetected); N meningitidis Not Reported Not Detected (NotDetected); P aeruginosa Not Reported Not Detected (NotDetected); Proteus spp Not Reported Not Detected (NotDetected); Salmonella spp Not Reported Not Detected (NotDetected); Staph lugdunensis Not Reported Not Detected (NotDetected); Staph spp. Not Reported DETECTED (NotDetected); Staphaureus Not Reported Not Detected (NotDetected); Staphepi Not Reported DETECTED (NotDetected); Staphylococcus spp. DETECTED (NotDetected); Stenmaltophilia Not Reported Not Detected (NotDetected); Strep agal(GrpB) Not Reported Not Detected (NotDetected); Strep pneum Not Reported Not Detected (NotDetected); Strep pyog (GrpA) Not Reported Not Detected (NotDetected); Strep spp Not Reported Not Detected (NotDetected); mecAC Resistant Gene Not Detected (NotDetected)
[2023-12-15 22:11] LABS: Staphylococcus epidermidis DETECTED (NotDetected)
[2023-12-16 06:26] LABS: Basophils # (auto) 0.03 K/uL (0.00-0.20); Basophils % (auto) 0.6 %; Eosinophils # (auto) 0.16 K/uL (0.00-0.50); Hematocrit (blood only) 37.3 % (42.0-52.0); Hemoglobin 12.2 g/dl (14.0-18.0); Immature Granulocytes # (auto) 0.03 K/uL (0.01-0.20); Immature Granulocytes % (auto) 0.6 %; Lymphocytes # (auto) 0.57 K/uL (1.20-3.40); Lymphocytes % (auto) 10.7 %; Mean Corpuscular Hemoglobin 33.2 pg (25.0-34.0); Mean Corpuscular Hgb Conc 32.7 g/dL (32.0-36.0); Mean Corpuscular Volume 101.4 fL (80.0-100.0); Monocytes # (auto) 0.97 K/uL (0.11-0.59); Monocytes % (auto) 18.1 %; Neutrophils # (auto) 3.59 K/uL (1.40-6.50); Platelet Count 177 K/uL (130-400); RDW Standard Deviation 64.7 fL (36.4-46.3); Red Blood Count 3.68 M/uL (4.70-6.10); White Blood Count 5.35 K/ul (4.8-10.8)
[2023-12-16 06:39] LABS: BUN Creatinine Ratio 19.7 (10-20); Calcium 8.7 mg/dl (8.6-10.3); Creatinine Clr Calc Pharmacy 60.2 ml/min; Est GFR (African American) 61.4 ml/min; Potassium 4.6 mmol/L (3.5-5.1)
[2023-12-16] MEDS: ACETAMINOPHEN 325 MG TAB PO SCH (10:15)
--- NOTE | 2023-12-16 10:17 | Infectious Disease Consult ---
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 He reports pain at chronic ulcer at his right foot. He denies any falls, chills, sweats, increased pain in right knee from baseline, abdominal pain, nausea or vomiting. In the Ed he is afebrile and HDS. Labs WBC 6.74, esr 19, crp 11.20, BUN 33, cr 1.31, BC on BCID with Staph epi ( MRSE not detected). CXR negative for acute cardio pulmonary process. Xrays of R knee, tib -fib and foot show Knee with moderate circumferential soft tissue swelling. Total joint arthroplasty with patellar resurfacing. Small joint effusion.Soft tissue swelling throughout the right lower leg and within the right foot. No bony destructive changes to suggest an osteomyelitis. He is receiving Daptomycin and Zosyn. ID consulted for recurrent cellulitis. 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 ( staph epi per BCID). He has no increased effusion at R knee or per imaging to suggest acute on chronic PJI. He has several ulcers which may serve as portals of entry for bacteria leading to cellulitis. He is on chronic doxycycline but doxycycline may not provide the best streptococcus coverage. Recommendations Discontinued Zosyn Continued Daptomycin for staph and strep coverage . Follow up GPC in BC ( likely staph per BCID Follow up repeat BC. Consider starting antifungal powder. cream between his toes If BC confirmed as Staph epi , repeat BC sterile, and cellulitis improves can complete a total of 7-10 days ( including IV days) of cefpodoxime/doxy followed by doxy suppression. Thank you for this consult. ID will continue to follow Gavi Rich MD, MPH Infectious Disease [facility], ID Division Call [phone] with questions. Consultation Information Consultation was provided via telemedicine using two-way real-time interactive telecommunication between the patient and the telemedicine provider. For the duration of the visit, the provider was performing the assessment from a different facility than the patient. This includesuse of bluetooth stethoscope forauscultationperformed by the telepresenter that the telemedicine provider can hear if described in the physical exam. Back Up Scan Coordinator contact information: Please call [facility] Call Center . 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 He reports pain at chronic ulcer at his right foot. He denies any falls, chills, sweats, increased pain in right knee from baseline, abdominal pain, nausea or vomiting. In the Ed he is afebrile and HDS. Labs WBC 6.74, esr 19, crp 11.20, BUN 33, cr 1.31, BC on BCID with Staph epi ( MRSE not detected). CXR negative for acute cardio pulmonary process. Xrays of R knee, tib -fib and foot show Knee with moderate circumferential soft tissue swelling. Total joint arthroplasty with patellar resurfacing. Small joint effusion.Soft tissue swelling throughout the right lower leg and within the right foot. No bony destructive changes to suggest an osteomyelitis. He is receiving Daptomycin and Zosyn. ID consulted for recurrent cellulitis. Allergies Allergy/AdvReac Type Severity Reaction Status Date / Time cat dander Allergy Severe CAT Verified 11/30/23 08:02 HAIR---Swelling of Lip/Tongue/Throat Home Medications Medication Instructions Recorded Confirmed Type sennosides 8.6 mg capsule (senna) 17.2 mg PO QAM 06/19/22 12/15/23 History ascorbic acid (vitamin C) 500 mg 1,000 mg PO QAM 08/07/22 12/15/23 History capsule aspirin 81 mg tablet,delayed 81 mg PO QAM 08/07/22 12/15/23 History release (Adult Low Dose Aspirin) coenzyme Q10 100 mg capsule 100 mg PO QAM 08/07/22 12/15/23 History lactobacillus combination no.9 4 6,000 mmu cells PO QAM PRN use 08/07/22 12/15/23 History billion cell capsule (Adult 50 with antibiotics Plus Probiotic) gtfdznxi-vnckzaj-xjzx-lutein tablet 1 tab PO QAM 08/07/22 12/15/23 History cholecalciferol (vitamin D3) 250 250 mcg PO DAILY 90 days #90 tabs 09/19/22 12/15/23 Rx mcg (10,000 unit) tablet cyanocobalamin (vitamin B-12) 500 1,000 mcg (2 x 500 mcg) PO QAM #30 01/18/23 12/15/23 Rx mcg tablet tabs hydroxyzine HCl 10 mg tablet 10 mg PO HS PRN anxiety or 01/18/23 12/15/23 Rx insomnia #14 tabs thiamine HCl (vitamin B1) 100 mg 100 mg PO QAM 02/05/23 12/15/23 History tablet melatonin 5 mg capsule 5 mg PO HS PRN Sleep 02/16/23 12/15/23 History acetaminophen 500 mg capsule 1,000 mg PO TID Pain 08/21/23 12/15/23 History latanoprost 0.005 % eye drops 1 drp ophthalmic (eye) QPM 08/21/23 12/15/23 History gabapentin 400 mg capsule 400 mg PO TID 30 days #90 caps 09/03/23 12/15/23 Rx olmesartan 5 mg tablet 5 mg PO DAILY 90 days #90 tabs 09/03/23 12/15/23 Rx pravastatin 40 mg tablet 40 mg PO DAILY #90 tabs 09/03/23 12/15/23 Rx doxycycline monohydrate 100 mg 100 mg PO BID 09/18/23 12/15/23 History capsule upadacitinib 15 mg tablet,extended 15 mg PO DAILY 09/23/23 12/15/23 History release 24 hr (Rinvoq) metoprolol tartrate 25 mg tablet 12.5 mg (1/2 x 25 mg) PO BID 30 09/24/23 12/15/23 Rx days #30 tabs isosorbide mononitrate 60 mg 60 mg PO QAM #90 tabs 10/08/23 12/15/23 Rx tablet,extended release 24 hr mirtazapine 30 mg tablet 30 mg PO DAILY #90 tabs 10/13/23 12/15/23 Rx amiodarone 200 mg tablet 200 mg PO DAILY #90 tabs 10/23/23 12/15/23 Rx esomeprazole magnesium 40 mg 40 mg PO HS #90 caps 10/23/23 12/15/23 Rx capsule,delayed release (Nexium) duloxetine 60 mg capsule,delayed 60 mg PO QAM #90 caps 10/29/23 12/15/23 Rx release furosemide 20 mg tablet 20 mg PO DAILY PRN edema or weight 10/29/23 12/15/23 Rx gain #30 tabs ranolazine 500 mg tablet,extended 500 mg PO BID 11/06/23 12/15/23 History release,12 hr oxycodone 5 mg tablet 10 mg (2 x 5 mg) PO HS PRN Pain 11/19/23 12/15/23 Rx #20 tabs rivaroxaban 20 mg tablet (Xarelto) 20 mg PO DAILY 11/19/23 12/15/23 History diclofenac sodium 1 % topical gel 2 g topical QID PRN Pain 12/15/23 12/15/23 History (Voltaren Arthritis Pain) sennosides 8.6 mg tablet 8.6 mg PO HS 12/15/23 12/15/23 History Patient History Medical History Sepsis Septicemia due to Streptococcus pneumoniae Respiratory failure with hypoxia Hypomagnesemia Pneumonia Benign essential hypertension Lumbar stenosis Hx of staphylococcal infection 03/2022, w/"bacterial infection" at the same, in the rt. knee, occurrred during atrial fibrillation episode. "when he woke up, he couldn't walk." Atrial fibrillation episode occurred in 03/2022, taken to [facility] in [place], admitted to ICU for 1-2 weeks (was not intubated, but wasn't "awake either"), then to cardiac unit, then to rehab at [facility]; f/u dr. guerra in [place]>will be starting to see a plastics spreading machine operator at [facility] 2nd week of 08/2022 Myocardial Infarction "a silent one, 2019" Sleep apnea no device Surgical History Hx of Achilles tendon repair rt. Hx of knee surgery rt. patellar tendon repair Hx of rotator cuff surgery bilateral Hx of total knee replacement lt. Hx of total hip arthroplasty rt. History of colostomy reversal History of bowel resection for diverticulitis; w/colostomy placement for 3-4 months Hx of hernia repair near former colostomy site History of esophagogastroduodenoscopy (EGD) Hx of colonoscopy Last Colonoscopy 08/14/22, repeat 3 years in 2025 Hx of bilateral cataract extraction History of heart artery stent ~3 years ago, x2 stents, done in [place]; f/u dr guerra, [place]>will be seeing new cardio at [place] 2nd week of August 2022. History of cardiac cath ~3 years ago, SOB and "felt like throat was constricting", had "silent heart attack", x2 stents, done in [place] Family History Grandmother (Maternal) Diabetes Daughter Diabetes Father Suicide Hypertension Denies family history of Ovarian cancer Prostate cancer Myocardial infarction Breast cancer Lung cancer Colorectal cancer Stroke Social History Smoking Status: Never smoker Second Hand Exposure: No; Do You Dip or Chew Tobacco: No; Hx Alcohol Use: Yes Alcohol type: wine Alcohol Intake Frequency: 4 or More x per/Week Hx Substance Use: No Preferred Language: Italian Communication Ability: Effective Visual Impairment: Limited Hearing Ability: Normal 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: No Beliefs That Will Affect Care: None marital status: Single Current Living Situation: Alone Current Living Situation Comment: Alone at Independent [facility] at [facility] current occupational status: retired How many Children do You have: 2 Feels Safe at Home: Yes Childhood Exposure to Second-Hand Smoke: Yes caffeine: Yes Dental Care, Regularly: Yes Physical Activity Frequency: Does not Exercise Seatbelt Use: always Sunscreen Use: Yes Assistive Devices: Walker and Wheelchair Review of System A 10 point ROS obtained, Pertinent positives as per HPI Physical Exam Physical Exam: Gen- NAD Neck- supple HEENT- anicteric sclera Lungs- No increased work of breathing Abd- soft Ext- BL chronic venous changes; Left calf chronic ulcer. Left foot erythema and tenderness to palpation. Hypertrophic nails. In between toes with maceration. R calf erythema, warmth, tenderness mild edema. No knee effusion. R lateral foot ulcer- tender, serous drainage. Psych- normal mood Neuro- AAO*3 Results & Data Vital Signs (Past 12 Hours) Vital Signs Temp Pulse Resp BP BP Pulse Ox O2 Del Method 12/16/23 09:13 119/73 12/16/23 07:38 36.5 C 67 18 144/75 H 94 Room Air 12/16/23 02:52 36.7 C 69 19 147/99 H 92 Room Air 12/15/23 22:55 36.7 C 68 19 147/74 H 91 Room Air Laboratory Results Laboratory Results - last 48 hr 12/14/23 12/14/23 12/14/23 20:00 20:50 21:58 WBC 6.74 RBC 3.48 L Hgb 11.7 L Hct 36.1 L MCV 103.7 H MCH 33.6 MCHC 32.4 RDW Std Deviation 67.9 H RDW Coeff of Sammie 17.6 H Plt Count 193 MPV 10.2 Immature Gran % (Auto) 0.3 Neut % (Auto) 72.5 Lymph % (Auto) 13.6 Quay % (Auto) 11.6 Eos % (Auto) 1.9 Baso % (Auto) 0.1 Neut # (Auto) 4.88 Lymph # (Auto) 0.92 L Quay # (Auto) 0.78 H Eos # (Auto) 0.13 Baso # (Auto) 0.01 Immature Gran # (Auto) 0.02 ESR 19 PT INR APTT Cancelled 33 H PTT Ratio Cancelled 1.2 Sodium 135 L Potassium 4.6 Chloride 102 Carbon Dioxide 28 Anion Gap 5 BUN 33 H Creatinine 1.31 Est Cr Clr Drug Dosing 57.6 Est GFR ( Amer) 59.2 Est GFR (Non-Af Amer) 51.1 BUN/Creatinine Ratio 25.2 H Glucose 97 Lactate 1.3 Calcium 9.0 Phosphorus Magnesium Total Bilirubin 0.8 AST 41 H ALT 28 Alkaline Phosphatase 50 C-Reactive Protein 11.20 H Total Protein 6.4 Albumin 3.7 Globulin 2.7 Albumin/Globulin Ratio 1.4 Procalcitonin 0.08 Adenovirus (PCR) Not Detected B. pertussis DNA (PCR) Not Detected B.parapertussis DNA PCR Not Detected C. pneumoniae DNA (PCR) Not Detected Coronavirus OC43 (PCR) Not Detected Coronavirus HKU1 (PCR) Not Detected Coronavirus 229E (PCR) Not Detected SARS-CoV-2 (PCR) Not Detected Coronavirus NL63 (PCR) Not Detected Human Metapneumovir PCR Not Detected Influenza Type A (PCR) Not Detected Influenza Type B (PCR) Not Detected M. pneumoniae (PCR) Not Detected Parainfluenza 1 (PCR) Not Detected Parainfluenza 2 (PCR) Not Detected Parainfluenza 3 (PCR) Not Detected Parainfluenza 4 (PCR) Not Detected RSV (PCR) Not Detected Entero/Rhino (PCR) Not Detected Staphylococcus sp PCR DETECTED A mecA/C-Methicil Resis Gene Not Detected Staph epidermidis (PCR) DETECTED A Bld Cult ID Panel PCR See PCR Comment 07/09/24 07/10/24 05:47 06:07 WBC 5.76 5.35 RBC 3.25 L 3.68 L Hgb 10.7 L 12.2 L Hct 32.8 L 37.3 L MCV 100.9 H 101.4 H MCH 32.9 33.2 MCHC 32.6 32.7 RDW Std Deviation 65.0 H 64.7 H RDW Coeff of Sammie 17.3 H 17.0 H Plt Count 165 177 MPV 10.0 10.0 Immature Gran % (Auto) 0.3 0.6 Neut % (Auto) 72.8 67.0 Lymph % (Auto) 11.5 10.7 Quay % (Auto) 12.8 18.1 Eos % (Auto) 2.3 3.0 Baso % (Auto) 0.3 0.6 Neut # (Auto) 4.19 3.59 Lymph # (Auto) 0.66 L 0.57 L Quay # (Auto) 0.74 H 0.97 H Eos # (Auto) 0.13 0.16 Baso # (Auto) 0.02 0.03 Immature Gran # (Auto) 0.02 0.03 ESR PT 12.1 H INR 1.1 APTT 31 PTT Ratio 1.2 Sodium 137 137 Potassium 4.2 4.6 Chloride 103 103 Carbon Dioxide 28 30 Anion Gap 6 4 BUN 28 H 25 H Creatinine 1.22 1.27 Est Cr Clr Drug Dosing 62.3 60.2 Est GFR ( Amer) 64.5 61.4 Est GFR (Non-Af Amer) 55.6 53.0 BUN/Creatinine Ratio 23.0 H 19.7 Glucose 88 109 H Lactate Calcium 8.4 L 8.7 Phosphorus 4.0 Magnesium 1.8 Total Bilirubin AST ALT Alkaline Phosphatase C-Reactive Protein Total Protein Albumin 3.3 L Globulin Albumin/Globulin Ratio Procalcitonin Adenovirus (PCR) B. pertussis DNA (PCR) B.parapertussis DNA PCR C. pneumoniae DNA (PCR) Coronavirus OC43 (PCR) Coronavirus HKU1 (PCR) Coronavirus 229E (PCR) SARS-CoV-2 (PCR) Coronavirus NL63 (PCR) Human Metapneumovir PCR Influenza Type A (PCR) Influenza Type B (PCR) M. pneumoniae (PCR) Parainfluenza 1 (PCR) Parainfluenza 2 (PCR) Parainfluenza 3 (PCR) Parainfluenza 4 (PCR) RSV (PCR) Entero/Rhino (PCR) Staphylococcus sp PCR mecA/C-Methicil Resis Gene Staph epidermidis (PCR) Bld Cult ID Panel PCR Microbiology 12/14/23 20:00 Blood Aerobic Blood Culture - Preliminary Gram positive cocci clusters 12/14/23 20:00 Blood Anaerobic Blood Culture - Preliminary No growth in Anaerobic bottle after 24 hours. 12/14/23 21:58 Blood Aerobic Blood Culture - Preliminary No growth in Aerobic bottle after 24 hours. 12/14/23 21:58 Blood Anaerobic Blood Culture - Preliminary No growth in Anaerobic bottle after 24 hours. Diagnostic Findings Chest X-Ray 12/14/23 21:40 XR chest 1V portable HISTORY: 78 years-old Male fever, immunecompromised acute fever COMPARISON: 12/12/2023 TECHNIQUE: AP view of the chest FINDINGS: Cardiac silhouette is enlarged. Calcified granuloma in the right lung base with calcified right hilar lymph node. No pneumothorax or pleural effusion. No airspace consolidation typical for pneumonia. Degenerative changes of the shoulders and spine. Metallic density focus projects over the right shoulder. IMPRESSION: Cardiomegaly without acute process. ACT 112: Negative or not required by law. The above report was generated using voice recognition software. It may contain grammatical, syntax or spelling errors. Electronically signed by: Geo Clayton M.D. 12/15/2023 6:57 AM Knee X-Ray 12/14/23 21:40 XR knee RT 1 or 2V routine HISTORY: 78 years-old Male cellulitis acute pain of the right lower extremity COMPARISON: Tibia/fibular radiographs of same day TECHNIQUE: 2 views of the right knee FINDINGS: Moderate circumferential soft tissue swelling. Total joint arthroplasty with patellar resurfacing. Small joint effusion. Arterial calcifications. No acute fracture, dislocation or evidence of hardware complication. IMPRESSION: Soft tissue swelling without acute osseous abnormality. ACT 112: Negative or not required by law. The above report was generated using voice recognition software. It may contain grammatical, syntax or spelling errors. Electronically signed by: Geo Clayton M.D. 12/15/2023 6:55 AM Tibia/Fibula X-Ray 12/14/23 21:40 XR tibia fibula RT 2V CLINICAL HISTORY: cellulitis COMPARISON STUDY: None. FINDINGS: Soft tissue swelling throughout the right lower leg. No fracture or dislocation. Vascular calcifications are noted. No bony destructive changes identified. A right total knee arthroplasty. The hardware appears intact. IMPRESSION: Soft tissue swelling throughout the right lower leg. No bony destructive changes to suggest an osteomyelitis. ACT 112: Negative or not required by law. Electronically signed by: Kendall No M.D. 12/15/2023 8:15 AM Foot X-Ray 12/14/23 21:42 XR foot RT 2V CLINICAL HISTORY: cellulitis COMPARISON STUDY: None. FINDINGS: Soft tissue swelling within the right foot. No fracture or dislocation. The Lisfranc joint is intact. Ztjv-lp-bwavlhzo degenerative changes. Vascular calcifications are present. There is a plantar heel spur. No destructive changes to suggest an osteomyelitis. IMPRESSION: 1. Soft tissue swelling within the right foot. 2. No bony destructive changes to suggest an osteomyelitis. ACT 112: Negative or not required by law. Electronically signed by: Kendall oN M.D. 12/15/2023 8:14 AM Medications Administered Home Medications Medication Instructions Recorded Confirmed Last Taken sennosides 8.6 mg capsule (senna) 17.2 mg PO QAM 06/19/22 12/15/23 11/05/23 ascorbic acid (vitamin C) 500 mg 1,000 mg PO QAM 08/07/22 12/15/23 11/05/23 capsule aspirin 81 mg tablet,delayed 81 mg PO QAM 08/07/22 12/15/23 11/05/23 release (Adult Low Dose Aspirin) coenzyme Q10 100 mg capsule 100 mg PO QAM 08/07/22 12/15/23 11/05/23 lactobacillus combination no.9 4 6,000 mmu cells PO QAM PRN use 08/07/22 12/15/23 11/05/23 billion cell capsule (Adult 50 with antibiotics Plus Probiotic) qwdfakkr-vyxmcwp-zcyd-lutein tablet 1 tab PO QAM 08/07/22 12/15/23 11/05/23 cholecalciferol (vitamin D3) 250 250 mcg PO DAILY 90 days #90 tabs 09/19/22 12/15/23 11/05/23 mcg (10,000 unit) tablet cyanocobalamin (vitamin B-12) 500 1,000 mcg (2 x 500 mcg) PO QAM #30 01/18/23 12/15/23 11/05/23 mcg tablet tabs hydroxyzine HCl 10 mg tablet 10 mg PO HS PRN anxiety or 01/18/23 12/15/23 Unknown insomnia #14 tabs thiamine HCl (vitamin B1) 100 mg 100 mg PO QAM 02/05/23 12/15/23 11/05/23 tablet melatonin 5 mg capsule 5 mg PO HS PRN Sleep 02/16/23 12/15/23 Unknown acetaminophen 500 mg capsule 1,000 mg PO TID Pain 08/21/23 12/15/23 Unknown latanoprost 0.005 % eye drops 1 drp ophthalmic (eye) QPM 08/21/23 12/15/23 11/05/23 gabapentin 400 mg capsule 400 mg PO TID 30 days #90 caps 09/03/23 12/15/23 11/05/23 olmesartan 5 mg tablet 5 mg PO DAILY 90 days #90 tabs 09/03/23 12/15/23 11/05/23 pravastatin 40 mg tablet 40 mg PO DAILY #90 tabs 09/03/23 12/15/23 11/05/23 doxycycline monohydrate 100 mg 100 mg PO BID 09/18/23 12/15/23 11/05/23 capsule upadacitinib 15 mg tablet,extended 15 mg PO DAILY 09/23/23 12/15/23 11/05/23 release 24 hr (Rinvoq) metoprolol tartrate 25 mg tablet 12.5 mg (1/2 x 25 mg) PO BID 30 09/24/23 12/15/23 11/05/23 days #30 tabs isosorbide mononitrate 60 mg 60 mg PO QAM #90 tabs 10/08/23 12/15/23 11/05/23 tablet,extended release 24 hr mirtazapine 30 mg tablet 30 mg PO DAILY #90 tabs 10/13/23 12/15/23 11/05/23 amiodarone 200 mg tablet 200 mg PO DAILY #90 tabs 10/23/23 12/15/23 11/05/23 esomeprazole magnesium 40 mg 40 mg PO HS #90 caps 10/23/23 12/15/23 11/05/23 capsule,delayed release (Nexium) duloxetine 60 mg capsule,delayed 60 mg PO QAM #90 caps 10/29/23 12/15/2311/04 release furosemide 20 mg tablet 20 mg PO DAILY PRN edema or weight 10/29/23 12/15/23 Unknown gain #30 tabs ranolazine 500 mg tablet,extended 500 mg PO BID 11/06/23 12/15/23 11/05/23 release,12 hr oxycodone 5 mg tablet 10 mg (2 x 5 mg) PO HS PRN Pain 11/19/23 12/15/23 Unknown #20 tabs rivaroxaban 20 mg tablet (Xarelto) 20 mg PO DAILY 11/19/23 12/15/23 12/14/23 10:00 diclofenac sodium 1 % topical gel 2 g topical QID PRN Pain 12/15/23 12/15/23 Unknown (Voltaren Arthritis Pain) sennosides 8.6 mg tablet 8.6 mg PO HS 12/15/23 12/15/23 Unknown Active Medications Generic Name Dose Route Start Last Admin Trade Name Freq PRN Reason Stop Dose Admin Acetaminophen 650 mg 12/16/23 10:00 12/16/23 10:15 Acetaminophen 325 Mg Tab PO 01/15/24 09:59 650 mg TID ELDER Administration Amiodarone HCl 200 mg 12/15/23 09:00 12/16/23 09:19 Amiodarone 200 Mg Tab PO 01/14/24 08:59 200 mg DAILY ELDER Administration Ascorbic Acid 1,000 mg 12/15/23 09:00 12/16/23 09:18 Ascorbic Acid 500 Mg Tab PO 01/14/24 08:59 1,000 mg QAM ELDER Administration Aspirin 81 mg 12/15/23 09:00 12/16/23 09:18 Aspirin 81 Mg Ectab PO 01/14/24 08:59 81 mg QAM ELDER Administration Cyanocobalamin 1,000 mcg 12/15/23 09:00 12/16/23 09:17 Cyanocobalamin (B-12) 500 Mcg Tablet PO 01/14/24 08:59 1,000 mcg QAM ELDER Administration Duloxetine HCl 60 mg 12/15/23 09:00 12/16/23 09:20 Duloxetine Hcl 60 Mg Cap PO 01/14/24 08:59 60 mg QAM ELDER Administration Gabapentin 400 mg 12/15/23 09:00 12/16/23 09:14 Gabapentin 400 Mg Cap PO 01/14/24 08:59 400 mg TID ELDER Administration Daptomycin 550 mg/ Syringe 11 mls @ 5.5 mls/min 12/15/23 20:00 12/15/23 20:54 IV 12/22/23 19:59 5.5 mls/min Q24H ELDER Administration Protocol Piperacillin Sod/Tazobactam 100 mls @ 25 mls/hr 12/15/23 04:00 12/16/23 09:09 Sod 4.5 gm/ Dextrose IV 12/22/23 03:59 Infused Q8H ELDER Infusion Protocol Isosorbide Mononitrate 60 mg 12/15/23 09:00 12/16/23 09:19 Isosorbide Quay Extended Rel 60 Mg Tabcr PO 01/14/24 08:59 60 mg QAM ELDER Administration Lactobacillus Acidophilus 1,250 mg 12/15/23 09:00 12/16/23 09:17 Advanced Probiotic 625 Mg Capsule PO 01/14/24 08:59 1,250 mg QAM ELDER Administration Latanoprost 1 drops 12/15/23 01:05 12/15/23 20:55 Latanoprost 0.005% Op Soln 2.5 Ml Btl OP 01/14/24 01:04 1 drops QPM ELDER Administration Metoprolol Tartrate 12.5 mg 12/15/23 09:00 12/16/23 09:16 Metoprolol Tartrate 25 Mg Tab PO 01/14/24 08:59 12.5 mg BID ELDER Administration Mirtazapine 30 mg 12/15/23 21:00 12/15/23 20:49 Mirtazapine Tab 15 Mg Tab PO 01/14/24 20:59 30 mg HS ELDER Administration Miscellaneous 1 each 12/15/23 08:00 12/16/23 09:22 Order Awaiting Action: Upadacitinib [Rinvoq] 15 Mg Tablet Extended Release 24 Hr N/A 01/14/24 07:59 Not Given QS ELDER Multivitamins/Minerals 1 tab 12/15/23 09:00 12/16/23 09:15 Cerovite Adv Formula Tab PO 01/14/24 08:59 1 tab QAM ELDER Administration Pantoprazole Sodium 40 mg 12/15/23 21:00 12/15/23 20:49 Pantoprazole 40 Mg Tab PO 01/14/24 20:59 40 mg HS ELDER Administration Ranolazine 500 mg 12/15/23 09:00 12/16/23 09:16 Ranolazine 500 Mg Er Tab PO 01/14/24 08:59 500 mg BID ELDER Administration Rivaroxaban 20 mg 12/15/23 16:30 12/15/23 17:16 Rivaroxaban 20 Mg Tab PO 01/14/24 16:29 20 mg QDD ELDER Administration Sennosides 8.6 mg 12/15/23 09:00 12/16/23 09:15 Senna 8.6 Mg Tab PO 01/14/24 08:59 8.6 mg AMHS ELDER Administration Thiamine HCl 100 mg 12/15/23 09:00 12/16/23 09:17 Thiamine Hcl 100 Mg Tab PO 01/14/24 08:59 100 mg QAM ELDER Administration Vitamin D 250 mcg 12/15/23 09:00 12/16/23 09:18 Cholecalciferol 125 Mcg (5,000 Units) Tab PO 01/14/24 08:59 250 mcg DAILY ELDER Administration
--- NOTE | 2023-12-16 10:55 | Hospitalist Progress Note ---
Date of Service December 16, 2023 Assessment & Plan (1) Cellulitis of right lower extremity: Plan: Recurrent. Currently on Zosyn and daptomycin, day 3. Wound care consultation requested. Infectious disease consultation pending. (2) Lymphangitis of lower extremity: Plan: Bilateral lower extremity chronic venous insufficiency. Supportive care (3) Sepsis due to skin infection: Plan: Continue intravenous antibiotic therapy. 1 of 4 blood cultures positive for suspected Staph epidermidis on December 13. Probable contaminant. Blood cultures repeated today, December 15. ID consultation pending (4) Atrial fibrillation: Plan: Paroxysmal. Currently in normal sinus rhythm. Continue Xarelto therapy. Telemetry (5) Rheumatoid arthritis: Plan: Chronic immunosuppressive therapy but not steroid-dependent. Supportive care. Pain control measures (6) Heart failure with preserved ejection fraction: Plan: Chronic. Currently stable. Monitor intake and output. Plan Hopeful return to [facility] at the time of discharge Admission and Anticipated Discharge Date Admission Date: December 14, 2023 Subjective Alert and oriented. No new problems. 1 of 4 blood cultures obtained on December 13 positive for gram-positive cocci in clusters which appears to be a contaminant, Staph epidermidis. Blood cultures repeated today, December 15. Infectious disease consultation pending. Overall he is stable. Currently on Zosyn and daptomycin, day 3 Review of Systems 2 Review of Systems: Constitutional-no fever or chills ENT-no blurred vision, no double vision, no epistaxis, no sore throat Respiratory-no cough, no wheezing, no shortness of breath Cardiac-no palpitations, no chest pain, no syncope GI-no nausea, vomiting, diarrhea, melena, hematochezia -no urinary retention, no urinary incontinence, no dysuria, no hematuria Musculoskeletal-chronic bilateral lower extremity pain. No muscle tenderness Skin-no bruising, no rashes, no pruritus Neuro-no isolated weakness, no paresthesia Psych-no depression, no anxiety Physical Exam 2 Physical Exam: General-alert and oriented x3, no fever, no chills HEENT-head atraumatic and normocephalic, pupils equal and reactive to light, extraocular muscles intact Neck-no lymphadenopathy or thyromegaly, trachea midline Chest-clear to auscultation. No rales, wheezing or rhonchi Cardiac-regular rate and rhythm, normal S1 and S2 Abdomen-normal bowel sounds, no hepatosplenomegaly Extremities-chronic appearing bilateral lower extremity edema with chronic venous insufficiency. Bilateral lower extremity erythema below the knees. Neuro-cranial nerves II through XII intact, motor and sensory function within normal limits, strength symmetrical with generalized weakness, no focal deficits Psych-depressed affect Results & Data Results & Data Vital Signs (Past 12 Hours) Vital Signs Temp Pulse Resp BP BP Pulse Ox O2 Del Method 12/16/23 09:13 119/73 12/16/23 07:38 36.5 C 67 18 144/75 H 94 Room Air 12/16/23 02:52 36.7 C 69 19 147/99 H 92 Room Air 12/15/23 22:55 36.7 C 68 19 147/74 H 91 Room Air Laboratory Results 12/16/23 06:07 12/16/23 06:07 PG Care Time/CCT Total # of Minutes Spent Total Time Spent with Patient: Total time spent is greater than 50% in coordination of care (as documented) at patient's floor/unit and/or counseling patient: Coding Level of Care Code 14683 SUB INP/OBS CARE 2/35MIN Diagnoses Cellulitis of right lower extremity L03.115 Lymphangitis of lower extremity I89.1 Sepsis due to skin infection A41.9; L08.9 Atrial fibrillation I48.91 Rheumatoid arthritis, involving unspecified site, unspecified whether rheumatoid factor present M06.9 Rheumatoid arthritis location: unspecified site Rheumatoid factor presence: unspecified presence Heart failure with preserved ejection fraction I50.30 (5) Rheumatoid arthritis Rheumatoid arthritis location: unspecified site Rheumatoid factor presence: u nspecified presence Qualified Code(s): M06.9 - Rheumatoid arthritis, unspecified
[2023-12-16] MEDS: MELATONIN 3 MG TAB PO PRN (21:26)
[2023-12-17 06:29] LABS: Basophils # (auto) 0.02 K/uL (0.00-0.20); Basophils % (auto) 0.4 %; Eosinophils # (auto) 0.14 K/uL (0.00-0.50); Eosinophils % (auto) 2.5 %; Hematocrit (blood only) 36.6 % (42.0-52.0); Hemoglobin 11.9 g/dl (14.0-18.0); Immature Granulocytes # (auto) 0.03 K/uL (0.01-0.20); Immature Granulocytes % (auto) 0.5 %; Lymphocytes # (auto) 0.63 K/uL (1.20-3.40); Lymphocytes % (auto) 11.3 %; Mean Corpuscular Hemoglobin 33.1 pg (25.0-34.0); Mean Corpuscular Hgb Conc 32.5 g/dL (32.0-36.0); Mean Corpuscular Volume 101.9 fL (80.0-100.0); Mean Platelet Volume 9.9 fL (9.4-12.4); Monocytes # (auto) 0.87 K/uL (0.11-0.59); Monocytes % (auto) 15.5 %; Neutrophils # (auto) 3.91 K/uL (1.40-6.50); Neutrophils % (auto) 69.8 %; Platelet Count 184 K/uL (130-400); RDW Coefficient of Variation 16.5 % (11.5-14.5); RDW Standard Deviation 62.4 fL (36.4-46.3); Red Blood Count 3.59 M/uL (4.70-6.10)
[2023-12-17 06:58] LABS: BUN Creatinine Ratio 20.8 (10-20); Calcium 8.5 mg/dl (8.6-10.3); Creatinine Clr Calc Pharmacy 65.3 ml/min; Est GFR (African American) 65.8 ml/min; Est GFR (Non-African American) 56.8 ml/min; Potassium 4.4 mmol/L (3.5-5.1)
--- NOTE | 2023-12-17 12:51 | Hospitalist Progress Note ---
Date of Service December 17, 2023 Assessment & Plan (1) Cellulitis of right lower extremity: Plan: Recurrent. Currently on Zosyn and daptomycin, day 4. Wound care consultation requested. Infectious disease consultation noted. He will be discharged on oral cefpodoxime and doxycycline. (2) Lymphangitis of lower extremity: Plan: Bilateral lower extremity chronic venous insufficiency. Supportive care (3) Sepsis due to skin infection: Plan: Continue intravenous antibiotic therapy. 1 of 4 blood cultures positive for suspected Staph epidermidis on December 13. Probable contaminant. Blood cultures repeated were repeated on December 15 and remain negative to date. ID consultation noted. (4) Atrial fibrillation: Plan: Paroxysmal. Currently in normal sinus rhythm. Continue Xarelto therapy. Telemetry (5) Rheumatoid arthritis: Plan: Chronic immunosuppressive therapy but not steroid-dependent. Supportive care. Pain control measures (6) Heart failure with preserved ejection fraction: Plan: Chronic. Currently stable. Monitor intake and output. Plan Anticipate discharge to personal-intermediate with home health tomorrow, December 17 . He does not want to return to [facility] Admission and Anticipated Discharge Date Admission Date: December 14, 2023 Subjective Alert and oriented. He remains on intravenous daptomycin, day 4. He will be discharged on cefpodoxime and oral doxycycline probably tomorrow, December 17. Blood cultures which were repeated yesterday, December 15, remain negative to date. Review of Systems 2 Review of Systems: Constitutional-no fever or chills ENT-no blurred vision, no double vision, no epistaxis, no sore throat Respiratory-no cough, no wheezing, no shortness of breath Cardiac-no palpitations, no chest pain, no syncope GI-no nausea, vomiting, diarrhea, melena, hematochezia -no urinary retention, no urinary incontinence, no dysuria, no hematuria Musculoskeletal-chronic bilateral lower extremity pain. No muscle tenderness Skin-no bruising, no rashes, no pruritus Neuro-no isolated weakness, no paresthesia Psych-no depression, no anxiety Physical Exam 2 Physical Exam: General-alert and oriented x3, no fever, no chills HEENT-head atraumatic and normocephalic, pupils equal and reactive to light, extraocular muscles intact Neck-no lymphadenopathy or thyromegaly, trachea midline Chest-clear to auscultation. No rales, wheezing or rhonchi Cardiac-regular rate and rhythm, normal S1 and S2 Abdomen-normal bowel sounds, no hepatosplenomegaly Extremities-chronic appearing bilateral lower extremity edema with chronic venous insufficiency. Bilateral lower extremity erythema below the knees. Neuro-cranial nerves II through XII intact, motor and sensory function within normal limits, strength symmetrical with generalized weakness, no focal deficits Psych-depressed affect Results & Data Results & Data Vital Signs (Past 12 Hours) Vital Signs Temp Pulse Pulse Resp BP Pulse Ox O2 Del Method 12/17/23 11:31 36.8 C 61 20 104/65 95 Room Air 12/17/23 08:03 36.7 C 65 20 155/83 H 93 Room Air 12/17/23 07:00 65 12/17/23 03:14 36.5 C 67 20 155/94 H 93 Room Air Laboratory Results 12/17/23 06:04 12/17/23 06:04 PG Care Time/CCT Total # of Minutes Spent Total Time Spent with Patient: Total time spent is greater than 50% in coordination of care (as documented) at patient's floor/unit and/or counseling patient: Coding Level of Care Code 49626 SUB INP/OBS CARE 3/50MIN Diagnoses Cellulitis of right lower extremity L03.115 Lymphangitis of lower extremity I89.1 Sepsis due to skin infection A41.9; L08.9 Atrial fibrillation I48.91 Rheumatoid arthritis, involving unspecified site, unspecified whether rheumatoid factor present M06.9 Rheumatoid arthritis location: unspecified site Rheumatoid factor presence: unspecified presence Heart failure with preserved ejection fraction I50.30 (5) Rheumatoid arthritis Rheumatoid arthritis location: unspecified site Rheumatoid factor presence: u nspecified presence Qualified Code(s): M06.9 - Rheumatoid arthritis, unspecified
--- NOTE | 2023-12-17 15:39 | Infectious Disease Progress Nt ---
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 He reports pain at chronic ulcer at his right foot. He denies any falls, chills, sweats, increased pain in right knee from baseline, abdominal pain, nausea or vomiting. In the Ed he is afebrile and HDS. Labs WBC 6.74, esr 19, crp 11.20, BUN 33, cr 1.31, BC on BCID with Staph epi ( MRSE not detected). CXR negative for acute cardio pulmonary process. Xrays of R knee, tib -fib and foot show Knee with moderate circumferential soft tissue swelling. Total joint arthroplasty with patellar resurfacing. Small joint effusion.Soft tissue swelling throughout the right lower leg and within the right foot. No bony destructive changes to suggest an osteomyelitis. He is receiving Daptomycin and Zosyn. ID consulted for recurrent cellulitis. 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 He has no increased effusion at R knee or per imaging to suggest acute on chronic PJI. He has several ulcers which may serve as portals of entry for bacteria leading to cellulitis. He is on chronic doxycycline but doxycycline may not provide the best streptococcus coverage. Recommendations Can continue Daptomycin for staph and strep coverage and discharge on cefpodoxime 400mg po bid ( cr cr >60)- EOT 12/23 AND restart doxycycline 100 mg po bid suppression( ongoing, follows with ID oupt and managing his suppression). Follow up repeat BC. Consider starting antifungal powder. cream between his toes ID will sign off. Call with questions if repeat BC + Gavi Rich MD, MPH Infectious Disease [facility], [facility] Call [phone] with questions. Admission and Anticipated Discharge Date Admission Date: December 14, 2023 Subjective Subsequent visit was provided via telemedicine using two-way real-time interactive telecommunication between the patient and the telemedicine provider. For the duration of the visit, the provider was performing the assessment from a different facility than the patient. This includesuse of bluetooth stethoscope forauscultationperformed by the telepresenter that the telemedicine provider can hear if described in the physical exam. Phlebotomy Specialist contact information: Please call [facility] . (Phone Number For Physician Use Only) After establishing a telemedicine visit, patient was: Patient was verified with two unique identifiers Time Spent with Patient: Subsequent => 25 min He feels well and is sitting up in chair . Feels that his RLE cellulitis has improved. He offers no complaints. Physical Exam Physical Exam: Gen- NAD, sitting up in chair Neck- supple HEENT- anicteric sclera Lungs- No increased work of breathing Abd- soft Ext- BL chronic venous changes; Left calf chronic ulcer. Left foot erythema and tenderness to palpation. Hypertrophic nails. In between toes with maceration. R calf erythema, warmth, tenderness mild edema ( improving on today's exam) . No knee effusion. R lateral foot ulcer- tender, serous drainage. Psych- normal mood Neuro- AAO*3 Results & Data Vital Signs (Past 12 Hours) Vital Signs Temp Pulse Pulse Resp BP Pulse Ox O2 Del Method 12/17/23 11:31 36.8 C 61 20 104/65 95 Room Air 12/17/23 08:03 36.7 C 65 20 155/83 H 93 Room Air 12/17/23 07:00 65 Laboratory Results Short CBC 12/17/23 Range/Units 06:04 WBC 5.60 (4.8-10.8) K/ul Hgb 11.9 L (14.0-18.0) g/dl Hct 36.6 L (42.0-52.0) % Plt Count 184 (130-400) K/uL BMP 12/17/23 06:04 Sodium 138 Potassium 4.4 Chloride 104 Carbon Dioxide 29 BUN 25 H Creatinine 1.20 Glucose 105 H Calcium 8.5 L Microbiology 12/16/23 10:19 Blood Aerobic Blood Culture - Preliminary No growth in Aerobic bottle after 24 hours. 12/16/23 10:19 Blood Anaerobic Blood Culture - Preliminary No growth in Anaerobic bottle after 24 hours. 12/16/23 10:24 Blood Aerobic Blood Culture - Preliminary No growth in Aerobic bottle after 24 hours. 12/16/23 10:24 Blood Anaerobic Blood Culture - Preliminary No growth in Anaerobic bottle after 24 hours. 12/14/23 20:00 Blood Aerobic Blood Culture - Preliminary Coag neg staph not lugdunensis 12/14/23 20:00 Blood Anaerobic Blood Culture - Preliminary No growth in Anaerobic bottle after 48 hours. 12/14/23 21:58 Blood Aerobic Blood Culture - Preliminary No growth in Aerobic bottle after 48 hours. 12/14/23 21:58 Blood Anaerobic Blood Culture - Preliminary No growth in Anaerobic bottle after 48 hours. Diagnostic Findings Chest X-Ray 12/14/23 21:40 XR chest 1V portable HISTORY: 78 years-old Male fever, immunecompromised acute fever COMPARISON: 12/12/2023 TECHNIQUE: AP view of the chest FINDINGS: Cardiac silhouette is enlarged. Calcified granuloma in the right lung base with calcified right hilar lymph node. No pneumothorax or pleural effusion. No airspace consolidation typical for pneumonia. Degenerative changes of the shoulders and spine. Metallic density focus projects over the right shoulder. IMPRESSION: Cardiomegaly without acute process. ACT 112: Negative or not required by law. The above report was generated using voice recognition software. It may contain grammatical, syntax or spelling errors. Electronically signed by: Geo Clayton M.D. 12/15/2023 6:57 AM Knee X-Ray 12/14/23 21:40 XR knee RT 1 or 2V routine HISTORY: 78 years-old Male cellulitis acute pain of the right lower extremity COMPARISON: Tibia/fibular radiographs of same day TECHNIQUE: 2 views of the right knee FINDINGS: Moderate circumferential soft tissue swelling. Total joint arthroplasty with patellar resurfacing. Small joint effusion. Arterial calcifications. No acute fracture, dislocation or evidence of hardware complication. IMPRESSION: Soft tissue swelling without acute osseous abnormality. ACT 112: Negative or not required by law. The above report was generated using voice recognition software. It may contain grammatical, syntax or spelling errors. Electronically signed by: Geo Clayton M.D. 12/15/2023 6:55 AM Tibia/Fibula X-Ray 12/14/23 21:40 XR tibia fibula RT 2V CLINICAL HISTORY: cellulitis COMPARISON STUDY: None. FINDINGS: Soft tissue swelling throughout the right lower leg. No fracture or dislocation. Vascular calcifications are noted. No bony destructive changes identified. A right total knee arthroplasty. The hardware appears intact. IMPRESSION: Soft tissue swelling throughout the right lower leg. No bony destructive changes to suggest an osteomyelitis. ACT 112: Negative or not required by law. Electronically signed by: Kendall No M.D. 12/15/2023 8:15 AM Foot X-Ray 12/14/23 21:42 XR foot RT 2V CLINICAL HISTORY: cellulitis COMPARISON STUDY: None. FINDINGS: Soft tissue swelling within the right foot. No fracture or dislocation. The Lisfranc joint is intact. Lgoc-il-wkbzyrfp degenerative changes. Vascular calcifications are present. There is a plantar heel spur. No destructive changes to suggest an osteomyelitis. IMPRESSION: 1. Soft tissue swelling within the right foot. 2. No bony destructive changes to suggest an osteomyelitis. ACT 112: Negative or not required by law. Electronically signed by: Kendall No M.D. 12/15/2023 8:14 AM Medications Administered Home Medications Medication Instructions Recorded Confirmed Last Taken sennosides 8.6 mg capsule (senna) 17.2 mg PO QAM 06/19/22 12/15/23 11/05/23 ascorbic acid (vitamin C) 500 mg 1,000 mg PO QAM 08/07/22 12/15/23 11/05/23 capsule aspirin 81 mg tablet,delayed 81 mg PO QAM 08/07/22 12/15/23 11/05/23 release (Adult Low Dose Aspirin) coenzyme Q10 100 mg capsule 100 mg PO QAM 08/07/22 12/15/23 11/05/23 lactobacillus combination no.9 4 6,000 mmu cells PO QAM PRN use 08/07/22 12/15/23 11/05/23 billion cell capsule (Adult 50 with antibiotics Plus Probiotic) ntqhlbjq-lfzynxp-rsau-lutein tablet 1 tab PO QAM 08/07/22 12/15/23 11/05/23 cholecalciferol (vitamin D3) 250 250 mcg PO DAILY 90 days #90 tabs 09/19/22 12/15/23 11/05/23 mcg (10,000 unit) tablet cyanocobalamin (vitamin B-12) 500 1,000 mcg (2 x 500 mcg) PO QAM #30 01/18/23 12/15/23 11/05/23 mcg tablet tabs hydroxyzine HCl 10 mg tablet 10 mg PO HS PRN anxiety or 01/18/23 12/15/23 Unknown insomnia #14 tabs thiamine HCl (vitamin B1) 100 mg 100 mg PO QAM 02/05/23 12/15/23 11/05/23 tablet melatonin 5 mg capsule 5 mg PO HS PRN Sleep 02/16/23 12/15/23 Unknown acetaminophen 500 mg capsule 1,000 mg PO TID Pain 08/21/23 12/15/23 Unknown latanoprost 0.005 % eye drops 1 drp ophthalmic (eye) QPM 08/21/23 12/15/23 11/05/23 gabapentin 400 mg capsule 400 mg PO TID 30 days #90 caps 09/03/23 12/15/23 11/05/23 olmesartan 5 mg tablet 5 mg PO DAILY 90 days #90 tabs 09/03/23 12/15/23 11/05/23 pravastatin 40 mg tablet 40 mg PO DAILY #90 tabs 09/03/23 12/15/23 11/05/23 doxycycline monohydrate 100 mg 100 mg PO BID 09/18/23 12/15/23 11/05/23 capsule upadacitinib 15 mg tablet,extended 15 mg PO DAILY 09/23/23 12/15/23 11/05/23 release 24 hr (Rinvoq) metoprolol tartrate 25 mg tablet 12.5 mg (1/2 x 25 mg) PO BID 30 09/24/23 12/15/23 11/05/23 days #30 tabs isosorbide mononitrate 60 mg 60 mg PO QAM #90 tabs 10/08/23 12/15/23 11/05/23 tablet,extended release 24 hr mirtazapine 30 mg tablet 30 mg PO DAILY #90 tabs 10/13/23 12/15/23 11/05/23 amiodarone 200 mg tablet 200 mg PO DAILY #90 tabs 10/23/23 12/15/23 11/05/23 esomeprazole magnesium 40 mg 40 mg PO HS #90 caps 10/23/23 12/15/23 11/05/23 capsule,delayed release (Nexium) duloxetine 60 mg capsule,delayed 60 mg PO QAM #90 caps 10/29/23 12/15/23 11/05/23 release furosemide 20 mg tablet 20 mg PO DAILY PRN edema or weight 10/29/23 12/15/23 Unknown gain #30 tabs ranolazine 500 mg tablet,extended 500 mg PO BID 11/06/23 12/15/23 11/05/23 release,12 hr oxycodone 5 mg tablet 10 mg (2 x 5 mg) PO HS PRN Pain 11/19/23 12/15/23 Unknown #20 tabs rivaroxaban 20 mg tablet (Xarelto) 20 mg PO DAILY 11/19/23 12/15/23 12/14/23 10:00 diclofenac sodium 1 % topical gel 2 g topical QID PRN Pain 12/15/23 12/15/23 Unknown (Voltaren Arthritis Pain) sennosides 8.6 mg tablet 8.6 mg PO HS 12/15/23 12/15/23 Unknown cefpodoxime 200 mg tablet 200 mg PO BID #20 tabs 12/17/23 Unknown doxycycline hyclate 100 mg capsule 100 mg PO BID 21 days #42 caps 12/17/23 Unknown Active Medications Generic Name Dose Route Start Last Admin Trade Name Freq PRN Reason Stop Dose Admin Acetaminophen 650 mg 12/16/23 10:00 12/17/23 09:03 Acetaminophen 325 Mg Tab PO 01/15/24 09:59 650 mg TID ELDER Administration Amiodarone HCl 200 mg 12/15/23 09:00 12/17/23 09:04 Amiodarone 200 Mg Tab PO 01/14/24 08:59 200 mg DAILY ELDER Administration Ascorbic Acid 1,000 mg 12/15/23 09:00 12/17/23 09:04 Ascorbic Acid 500 Mg Tab PO 01/14/24 08:59 1,000 mg QAM ELDER Administration Aspirin 81 mg 12/15/23 09:00 12/17/23 09:06 Aspirin 81 Mg Ectab PO 01/14/24 08:59 81 mg QAM ELDER Administration Cyanocobalamin 1,000 mcg 12/15/23 09:00 12/17/23 09:06 Cyanocobalamin (B-12) 500 Mcg Tablet PO 01/14/24 08:59 1,000 mcg QAM ELDER Administration Duloxetine HCl 60 mg 12/15/23 09:00 12/17/23 09:07 Duloxetine Hcl 60 Mg Cap PO 01/14/24 08:59 60 mg QAM ELDER Administration Gabapentin 400 mg 12/15/23 09:00 12/17/23 09:07 Gabapentin 400 Mg Cap PO 01/14/24 08:59 400 mg TID ELDER Administration Daptomycin 550 mg/ Syringe 11 mls @ 5.5 mls/min 12/15/23 20:00 12/16/23 21:26 IV 12/22/23 19:59 5.5 mls/min Q24H ELDER Administration Protocol Isosorbide Mononitrate 60 mg 12/15/23 09:00 12/17/23 09:07 Isosorbide Brantley Extended Rel 60 Mg Tabcr PO 01/14/24 08:59 60 mg QAM ELDER Administration Lactobacillus Acidophilus 1,250 mg 12/15/23 09:00 12/17/23 09:07 Advanced Probiotic 625 Mg Capsule PO 01/14/24 08:59 1,250 mg QAM ELDER Administration Latanoprost 1 drops 12/15/23 01:05 12/16/23 21:15 Latanoprost 0.005% Op Soln 2.5 Ml Btl OP 01/14/24 01:04 1 drops QPM ELDER Administration Melatonin 4.5 mg 12/15/23 00:44 12/16/23 21:26 Melatonin 3 Mg Tab PO 01/14/24 00:43 4.5 mg HS PRN Administration Sleep Metoprolol Tartrate 12.5 mg 12/15/23 09:00 12/17/23 09:08 Metoprolol Tartrate 25 Mg Tab PO 01/14/24 08:59 12.5 mg BID ELDER Administration Mirtazapine 30 mg 12/15/23 21:00 12/16/23 21:18 Mirtazapine Tab 15 Mg Tab PO 01/14/24 20:59 30 mg HS ELDER Administration Miscellaneous 1 each 12/15/23 08:00 12/17/23 09:05 Order Awaiting Action: Upadacitinib [Rinvoq] 15 Mg Tablet Extended Release 24 Hr N/A 01/14/24 07:59 1 each QS ELDER Administration Multivitamins/Minerals 1 tab 12/15/23 09:00 12/17/23 09:08 Cerovite Adv Formula Tab PO 01/14/24 08:59 1 tab QAM ELDER Administration Pantoprazole Sodium 40 mg 12/15/23 21:00 12/16/23 21:18 Pantoprazole 40 Mg Tab PO 01/14/24 20:59 40 mg HS ELDER Administration Ranolazine 500 mg 12/15/23 09:00 12/17/23 09:08 Ranolazine 500 Mg Er Tab PO 01/14/24 08:59 500 mg BID ELDER Administration Rivaroxaban 20 mg 12/15/23 16:30 12/16/23 17:02 Rivaroxaban 20 Mg Tab PO 01/14/24 16:29 20 mg QDD ELDER Administration Sennosides 8.6 mg 12/15/23 09:00 12/17/23 09:08 Senna 8.6 Mg Tab PO 01/14/24 08:59 8.6 mg AMHS ELDER Administration Thiamine HCl 100 mg 12/15/23 09:00 12/17/23 09:08 Thiamine Hcl 100 Mg Tab PO 01/14/24 08:59 100 mg QAM ELDER Administration Vitamin D 250 mcg 12/15/23 09:00 12/17/23 09:06 Cholecalciferol 125 Mcg (5,000 Units) Tab PO 01/14/24 08:59 250 mcg DAILY ELDER Administration
[2023-12-17] MEDS: DICLOFENAC SOD 1% GEL 100 GM TUBE EXT PRN (20:31)
[2023-12-17] MEDS: oxyCODONE HCL IR 5 MG TAB (IMMEDIATE RELEASE) PO PRN (22:29)
[2023-12-18 06:47] LABS: BUN Creatinine Ratio 23.9 (10-20); Calcium 8.6 mg/dl (8.6-10.3); Creatinine Clr Calc Pharmacy 69.3 ml/min; Est GFR (African American) 70.8 ml/min; Est GFR (Non-African American) 61.1 ml/min; Potassium 4.2 mmol/L (3.5-5.1)
[2023-12-18] MEDS: MICONAZOLE NITRATE POWDER 85 GM EXT SCH (11:25)
--- NOTE | 2023-12-18 12:52 | Hospitalist Progress Note ---
Date of Service December 18, 2023 Assessment & Plan (1) Cellulitis of right lower extremity: Plan: Recurrent. Currently on daptomycin, day 5. Zosyn has been discontinued by infectious disease. Continue with wound care. Infectious disease consultation noted. He will be discharged on oral cefpodoxime and doxycycline. (2) Lymphangitis of lower extremity: Plan: Bilateral lower extremity chronic venous insufficiency. Supportive care (3) Sepsis due to skin infection: Plan: Continue intravenous antibiotic therapy. 1 of 4 blood cultures positive for suspected Staph epidermidis on December 13. Probable contaminant. Blood cultures were repeated on December 15 and remain negative to date. ID consultation noted. (4) Atrial fibrillation: Plan: Paroxysmal. Currently in normal sinus rhythm. Continue Xarelto therapy. Telemetry (5) Rheumatoid arthritis: Plan: Chronic immunosuppressive therapy but not steroid-dependent. Supportive care. Pain control measures (6) Heart failure with preserved ejection fraction: Plan: Chronic. Currently stable. Monitor intake and output. Plan He now agrees to [facility] IPR placement. Insurance authorization is pending. Admission and Anticipated Discharge Date Admission Date: December 14, 2023 Subjective Alert and oriented. No new problems. He now agrees to go to [facility] if authorization is received. Repeat blood cultures done December 15 remain negative. Desenex antifungal powder has been ordered for both feet per infectious disease recommendations. Review of Systems 2 Review of Systems: Constitutional-no fever or chills ENT-no blurred vision, no double vision, no epistaxis, no sore throat Respiratory-no cough, no wheezing, no shortness of breath Cardiac-no palpitations, no chest pain, no syncope GI-no nausea, vomiting, diarrhea, melena, hematochezia -no urinary retention, no urinary incontinence, no dysuria, no hematuria Musculoskeletal-chronic bilateral lower extremity pain. No muscle tenderness Skin-no bruising, no rashes, no pruritus Neuro-no isolated weakness, no paresthesia Psych-no depression, no anxiety Physical Exam 2 Physical Exam: General-alert and oriented x3, no fever, no chills HEENT-head atraumatic and normocephalic, pupils equal and reactive to light, extraocular muscles intact Neck-no lymphadenopathy or thyromegaly, trachea midline Chest-clear to auscultation. No rales, wheezing or rhonchi Cardiac-regular rate and rhythm, normal S1 and S2 Abdomen-normal bowel sounds, no hepatosplenomegaly Extremities-chronic appearing bilateral lower extremity edema with chronic venous insufficiency. Bilateral lower extremity erythema below the knees. Neuro-cranial nerves II through XII intact, motor and sensory function within normal limits, strength symmetrical with generalized weakness, no focal deficits Psych-depressed affect Results & Data Results & Data Vital Signs (Past 12 Hours) Vital Signs Temp Pulse Pulse Resp BP Pulse Ox O2 Del Method 12/18/23 11:21 36.5 C 65 16 105/66 93 Room Air 12/18/23 08:12 36.4 C L 66 20 157/87 H 94 Room Air 12/18/23 07:00 61 12/18/23 02:26 36.6 C 67 20 133/86 95 Room Air Laboratory Results 12/17/23 06:04 12/18/23 06:02 PG Care Time/CCT Total # of Minutes Spent Total Time Spent with Patient: Total time spent is greater than 50% in coordination of care (as documented) at patient's floor/unit and/or counseling patient: Coding Level of Care Code 19415 SUB INP/OBS CARE 2/35MIN Diagnoses Cellulitis of right lower extremity L03.115 Lymphangitis of lower extremity I89.1 Sepsis due to skin infection A41.9; L08.9 Atrial fibrillation I48.91 Rheumatoid arthritis, involving unspecified site, unspecified whether rheumatoid factor present M06.9 Rheumatoid arthritis location: unspecified site Rheumatoid factor presence: unspecified presence Heart failure with preserved ejection fraction I50.30 (5) Rheumatoid arthritis Rheumatoid arthritis location: unspecified site Rheumatoid factor presence: u nspecified presence Qualified Code(s): M06.9 - Rheumatoid arthritis, unspecified
--- NOTE | 2023-12-18 14:32 | Discharge Summary ---
Date of Service December 18, 2023 Admission HPI Per Admitting Provider The patient is an 78-year-old male with a past medical history including gram- negative bacteremia, right lower extremity cellulitis, JEFFERY superimposed on CKD, left lower extremity venous ulcer, MRSA bacteremia, idiopathic polyneuropathy, left foot pressure ulcer stage III, NSTEMI, acute on chronic HFpEF, metabolic encephalopathy, immunosuppressive treatment for rheumatoid arthritis, and adjustment disorder with mixed anxiety and depressed mood. The patient has been following with wound care for bilateral lower extremity ulcerations and cellulitis, and has been on doxycycline 100 mg twice daily for prophylaxis. [facility], and was transferred to [facility] this morning, where he lives. He noted this morning that his right lower extremity had swollen considerably, and developed progressive redness and discomfort as the day progressed. For this reason he presented to the ED for assessment this evening, with his daughter in attendance. Principal Diagnosis Recurrent right lower extremity cellulitis Discharge Exam General-alert and oriented x3, no fever, no chills HEENT-head atraumatic and normocephalic, pupils equal and reactive to light, extraocular muscles intact Neck-no lymphadenopathy or thyromegaly, trachea midline Chest-clear to auscultation. No rales, wheezing or rhonchi Cardiac-regular rate and rhythm, normal S1 and S2 Abdomen-normal bowel sounds, no hepatosplenomegaly Extremities-chronic appearing bilateral lower extremity edema with chronic venous insufficiency. Bilateral lower extremity erythema below the knees. Neuro-cranial nerves II through XII intact, motor and sensory function within normal limits, strength symmetrical with generalized weakness, no focal deficits Psych-depressed affect Discharge Data Allergies Allergy/AdvReac Type Severity Reaction Status Date / Time cat dander Allergy Severe CAT Verified 11/30/23 08:02 HAIR---Swelling of Lip/Tongue/Throat Consultations 12/14/23 22:01 ED Decision to Admit Stat 12/15/23 12:16 Consult Infectious Diseases Routine Hospital Course (1) Cellulitis of right lower extremity: Recurrent. Currently on daptomycin, day 5. Zosyn has been discontinued by infectious disease. Continue with wound care. Infectious disease consultation noted. He will be discharged on oral cefpodoxime and doxycycline. (2) Lymphangitis of lower extremity: Bilateral lower extremity chronic venous insufficiency. Supportive care (3) Sepsis due to skin infection: Continue intravenous antibiotic therapy while hospitalized. 1 of 4 blood cultures positive for suspected Staph epidermidis on December 13. Probable contaminant. Blood cultures were repeated on December 15 and remain negative to date. ID consultation noted. (4) Atrial fibrillation: Paroxysmal. Currently in normal sinus rhythm. Continue Xarelto therapy. Telemetry (5) Rheumatoid arthritis: Chronic immunosuppressive therapy but not steroid-dependent. Supportive care. Pain control measures (6) Heart failure with preserved ejection fraction: Chronic. Currently stable. Monitor intake and output. Plan Insurance denied IPR placement. He will be discharged to home today, December 17. A prescription was provided for outpatient OT/PT Total Time Total Time Spent Total Time Spent (In Minutes): 15-minute Discharge Plan Discharge Items Patient Disposition: Home - Self-Care Reason For Visit: RLE CELLULITIS, ASCENDING LYMPHANGITIS Discharge Diagnosis: Recurrent right lower extremity cellulitis Activity: Resume your previous activity Non-emergency contact: Primary Care Provider Call non-emergency contact if: your symptoms worsen Follow-up/Referrals: Danny Soliman DO [Primary Care Provider] - Diet: Regular and Heart Healthy Addtl Attending Provider Instructions: Take antibiotics as directed Pending Studies at Discharge: No Stand-Alone Forms: My [facility] [employer], Smoking Cessation Medications and DC Order Prescriptions: New cefpodoxime 200 mg tablet 200 mg PO BID Qty: 20 0RF Rx Instructions: must administer with a meal/food doxycycline hyclate 100 mg capsule 100 mg PO BID 21 Days Qty: 42 0RF Continued acetaminophen 500 mg capsule 1,000 mg PO TID doxycycline monohydrate 100 mg capsule 100 mg PO BID Rinvoq 15 mg tablet extended release 24 hr 15 mg PO DAILY Hold Instructions: Resume on 12/09/23. Rx Instructions: patient states' I restarted it on my own" cholecalciferol (vitamin D3) 250 mcg (10,000 unit) tablet 250 mcg PO DAILY 90 Days Qty: 90 3RF gabapentin 400 mg capsule 400 mg PO TID 30 Days Qty: 90 5RF pravastatin 40 mg tablet 40 mg PO DAILY Qty: 90 3RF Rx Instructions: TAKE 1 TABLET BY MOUTH ONCE DAILY olmesartan 5 mg tablet 5 mg PO DAILY 90 Days Qty: 90 3RF metoprolol tartrate 25 mg tablet 12.5 mg PO BID 30 Days Qty: 30 5RF Rx Instructions: TAKE 1/2 TABLET BY MOUTH TWICE DAILY FOR YOUR HEART AND HIGH BLOOD PRESSURE isosorbide mononitrate 60 mg tablet extended release 24 hr 60 mg PO QAM Qty: 90 3RF amiodarone 200 mg tablet 200 mg PO DAILY Qty: 90 3RF Rx Instructions: TAKE 1 TABLET BY MOUTH ONCE DAILY esomeprazole magnesium [Nexium] 40 mg capsule,delayed release(DR/EC) 40 mg PO HS Qty: 90 3RF duloxetine 60 mg capsule,delayed release(DR/EC) 60 mg PO QAM Qty: 90 3RF furosemide 20 mg tablet 20 mg PO DAILY PRN (Reason: edema or weight gain) Qty: 30 5RF latanoprost 0.005 % drops 1 drp ophthalmic (eye) QPM senna 8.6 mg capsule 17.2 mg PO QAM mirtazapine 30 mg tablet 30 mg PO DAILY Qty: 90 3RF Xarelto 20 mg tablet 20 mg PO DAILY Rx Instructions: must administer with evening meal start 3 days after last eliquis dose. oxycodone 5 mg tablet 10 mg PO HS PRN (Reason: Pain) Qty: 20 0RF aspirin [Adult Low Dose Aspirin] 81 mg tablet,delayed release (DR/EC) 81 mg PO QAM Hold Instructions: Resume on 02/23/23. until PCP/surgery followup [id number]-lutein Tablet 1 tab PO QAM coenzyme Q10 100 mg capsule 100 mg PO QAM Adult 50 Plus Probiotic 4 billion cell capsule 6,000 mmu cells PO QAM PRN (Reason: use with antibiotics) Rx Instructions: administer with a meal ascorbic acid (vitamin C) 500 mg capsule 1,000 mg PO QAM melatonin 5 mg capsule 5 mg PO HS PRN (Reason: Sleep) cyanocobalamin (vitamin B-12) 500 mcg Tablet 1,000 mcg PO QAM Qty: 30 0RF hydroxyzine HCl 10 mg Tablet 10 mg PO HS PRN (Reason: anxiety or insomnia) Qty: 14 0RF thiamine HCl (vitamin B1) 100 mg tablet 100 mg PO QAM ranolazine 500 mg tablet extended release 12 hr 500 mg PO BID Rx Instructions: TAKE 1 TABLET BY MOUTH TWICE DAILY sennosides 8.6 mg Tablet 8.6 mg PO HS diclofenac sodium [Voltaren Arthritis Pain] 1 % gel 2 g topical QID PRN (Reason: Pain) Discharge Orders: Discharge Order (Routine); Ordered 12/18/23 Ordered By: Arnoldo Yarbrough Admission Data Admit Date/Time: 12/14/23 22:59 Attending Provider: Arnoldo Yarbrough Admit Provider: Himanshu Weinstein Primary Care Provider: Danny Soliman Other Providers: Himanshu Weinstein; [facility]; Haylee Salguero; Esme Huston; Carmen Joy; Gavi Rich; Annia Devine; Carmen Hidalgo; [place] Coding Level of Care Code 03289 INP/OBS DISCH >30 MIN Diagnoses Cellulitis of right lower extremity L03.115 Lymphangitis of lower extremity I89.1 Sepsis due to skin infection A41.9; L08.9 Atrial fibrillation I48.91 Rheumatoid arthritis, involving unspecified site, unspecified whether rheumatoid factor present M06.9 Rheumatoid arthritis location: unspecified site Rheumatoid factor presence: unspecified presence Heart failure with preserved ejection fraction I50.30
== END 2023-12-18 17:32 | disposition home or self-care (01) | DRG 872 ==
LOC: ED 19:33 → 4W 22:59 → SUATTDRO 22:59 → 4W 23:48

== ENCOUNTER 2024-01-21 06:49 | Inpatient (IN) ==
[2024-01-21] MEDS: SODIUM CHLORIDE 0.9% 1,000 ML IV SCH (07:11)
[2024-01-21] MEDS: CEFEPIME 2,000 MG/20 ML VIAL IV STA (07:11)
[2024-01-21] MEDS: ACETAMINOPHEN 1,000 MG/100 ML VIAL IV STA (07:11)
--- NOTE | 2024-01-21 07:11 | Emergency Department Note ---
Impression & Plan Sepsis, Fever, Elevated lactic acid level, Tachycardia, Acute UTI ED Provider Note NAME: RAFY CHICAS AGE: 78 SEX: M : 1945 ARRIVES VIA: Ambulance INFORMANT: [Patient][nursing] ED PROVIDER(S): [Maxime Loomis MD] CHIEF COMPLAINT: Illness HISTORY OF PRESENT ILLNESS: The patient is an 78-year-old male who states that yesterday, he was a bit tired and not quite himself. This morning, he noticed a slight cough and a sore throat. He was shaky, dizzy and weak. At times, he was sweating. Blood sugar was checked and it was 109. A temperature was noted at 102. He was sent by ambulance for evaluation. Of note, patient's O2 saturation was noted to be low initially, it seemed to improve though during his transfer to the hospital. The patient did notice some burning with urination this morning. He denies any sick contacts. The patient does have a history of cellulitis and sepsis. He has wounds on his feet that are being seen by the wound center. He is on chronic doxycycline for MRSA suppression. PMHx/PSHx/Social Hx: See Below PHYSICAL EXAM: GENERAL: Patient is in no acute distress. Seems at times to be shivering. HEENT: No acute trauma, normocephalic atraumatic, mucous membranes moist, no nasal congestion. No throat erythema or exudate. NECK: No stridor, no adenopathy, no meningismus, trachea is midline. LUNGS: Clear to auscultation bilaterally, no wheeze, no rhonchi, breath sounds equal. HEART: Mildly tachycardic with an occasional extra beat. No murmurs heard. ABDOMEN: Soft, nontender, no peritonitis. EXTREMITIES: No cyanosis. Both feet are cool to the touch. There are multiple wounds on both lower extremities. No warmth. Some of his wounds are dressed. NEUROLOGIC: Oriented x 3, no acute motor or sensory deficits, no focal weakness. SKIN: No jaundice, no diaphoresis. DIFFERENTIAL DIAGNOSIS: Sepsis or bacteremia, viral illness, pneumonia, cellulitis, UTI, among others. EMERGENCY DEPARTMENT PROCEDURES: MEDICAL DECISION MAKING: There was no leukocytosis or concerning anemia. There was a normal platelet count. No coagulopathy. No renal failure. Lactic acid level was elevated consistent with infection/sepsis. There were some subtle liver enzyme elevations. ECG showed a sinus tachycardia, no acute ST elevation. Cardiac enzyme testing x 1 was somewhat elevated, this cardiac troponin elevation could be secondary to mismatch or potentially cardiac injury. Urinalysis was consistent with infection. Respiratory bio fire was negative. Chest film does not show pneumonia or CHF. Abdominal and pelvis CT did not show any findings of ureteral obstruction or bowel obstruction. There was no free air. On exam, patient was tachycardic and febrile. The patient did meet criteria for sepsis. He was aggressively managed. The patient was given 2750 cc of IV saline. This should meet criteria for 30 cc of saline per kilogram based on his ideal body weight. He received IV cefepime and IV vancomycin as antibiotic coverage. He received IV Tylenol for his fever. The patient did drop his blood pressure once here. The blood pressure seemed to respond to IV saline. The patient is septic from a UTI. He requires a hospital stay. I did speak with the patient, his family, case management. The on-call hospitalist was consulted. Patient does appear to be in improved condition from when he first arrived. Prior/Outside records/notes reviewed: Today's EMS notes describing his presentation and transport to this hospital. ECG per my interpretation: Indication was presumed sepsis. The ECG shows a sinus tachycardia with a rate of 112. There was a nonspecific intraventricular block. LVH was present. There is no ST elevation. There were some inverted T waves noted in the high lateral leads. No PVCs. QTc was 472. I compared an ECG from 12 December 2023, the rate has increased, the T wave inversions are now present in the high lateral leads. Continuous Cardiac Monitoring per my interpretation: An order was placed for continuous cardiac monitoring. The monitor shows a rate of 112 with sinus tachycardia. Imaging/x-ray results per my interpretation: Chest x-ray does not show pneumonia or CHF. Chronic Medical/Social conditions affecting care: Advanced age, history of previous sepsis. Care/Management discussed with: Case management, the on-call hospitalist. Level of care consideration(s): After review of the information above and other included data: --I believe the patient requires escalation of care to admission Critical Care Note: I have personally spent 51 minutes of critical care time in the direct management of this patient. This includes bedside care, interpretation of diagnostic studies, and testing, discussion with consultants, patient, and family members, and other required patient management activities. This 51 minutes is in excess of all separately billable procedures. DISPOSITION: Admission Past Med/Surg History Problem List (Updated 01/21/24 @ 15:16 by Maxime Loomis MD) Acute UTI (Acute) Tachycardia (Acute) Elevated lactic acid level (Acute) Fever (Acute) Sepsis (Acute) UTI (urinary tract infection) Sepsis secondary to UTI Lymphangitis of lower extremity Hypomagnesemia (Acute) Fever (Acute) Open wound of left upper arm Open wound of left arm with tendon injury Gram-negative bacteremia Cellulitis of right lower extremity (Acute) Sepsis due to skin infection Generalized weakness (Acute) Elevated procalcitonin (Acute) Acute kidney injury superimposed on chronic kidney disease (Acute) Sepsis (Acute) Skin tear of right upper extremity (Acute) Open wound of left foot (Acute) Open wound of right foot (Acute) Skin tear of right hand without complication (Acute) Venous ulcer of left leg (Acute) Traumatic open wound of right lower leg (Acute) Elevated LFTs MRSA bacteremia Dislocation, hip closed (Acute) Dislocation, hip, posterior Rotator cuff arthropathy of both shoulders Abrasion of right knee (Acute) Pain of right hip Prophylactic antibiotic History of sepsis Left shoulder pain Acquired foot deformity (Chronic) Traumatic wound (Acute) Pressure ulcer of left foot, stage 3 (Acute) Abnormal ankle brachial index (Acute) Right knee pain Cellulitis of knee, right (Acute) Non-ST elevation ND (NSTEMI) (Acute) Leukocytosis (Acute) Sepsis (Acute) Myoclonus Cervical radiculopathy Neuropathy Weakness On amiodarone therapy Weakness of right hip DVT prophylaxis Constipation Acute on chronic diastolic congestive heart failure Sepsis following procedure Wheezing Rhabdomyolysis MRSA infection History of CHF (congestive heart failure) Visual disturbance Hyponatremia Hypotension Acute metabolic encephalopathy Severe sepsis Abdominal wall abscess (Acute) HFrEF (heart failure with reduced ejection fraction) EF 40% Mar 2022, improved 55-60% August 2022 Lumbar stenosis Osteoarthritis of right knee Anxiety and depression Hypertension Anemia (Acute) Coronary artery disease Pre-operative cardiovascular examination, myocardial ischemia Atherogenic dyslipidemia Fall Lumbar radiculopathy Low back pain Lower extremity weakness Degenerative spondylolisthesis Parainfluenza virus bronchitis Chronic low back pain Scoliosis of lumbar region due to degenerative disease of spine in adult Dislocation of hip, right, closed (Acute) Septic joint of right knee joint COVID-19 (Acute) Incisional hernia Incarcerated intra-abdominal hernia (Acute) Abdominal pain (Acute) Adjustment disorder with mixed anxiety and depressed mood Sepsis (Acute) Elevated lactic acid level (Acute) Medical History Venous ulcer of right leg Venous stasis ulcers of both lower extremities Idiopathic polyneuropathy History of immunosuppressive therapy Heart failure with preserved ejection fraction Rheumatoid arthritis GERD (gastroesophageal reflux disease) Atrial fibrillation Sepsis Septicemia due to Streptococcus pneumoniae Respiratory failure with hypoxia Hypomagnesemia Pneumonia Benign essential hypertension Lumbar stenosis Hx of staphylococcal infection 03/2022, w/"bacterial infection" at the same, in the rt. knee, occurrred during atrial fibrillation episode. "when he woke up, he couldn't walk." Atrial fibrillation episode occurred in 03/2022, taken to [facility], admitted to ICU for 1-2 weeks (was not intubated, but wasn't "awake either"), then to cardiac unit, then to rehab at [facility]; f/u dr. guerra in [place]>will be starting to see a surgical pathologist at [facility] 2nd week of 08/2022 Myocardial Infarction "a silent one, 2019" Sleep apnea no device Surgical History Hx of Achilles tendon repair rt. Hx of knee surgery rt. patellar tendon repair Hx of rotator cuff surgery bilateral Hx of total knee replacement lt. Hx of total hip arthroplasty rt. History of colostomy reversal History of bowel resection for diverticulitis; w/colostomy placement for 3-4 months Hx of hernia repair near former colostomy site History of esophagogastroduodenoscopy (EGD) Hx of colonoscopy Last Colonoscopy 08/14/22, repeat 3 years in 2025 Hx of bilateral cataract extraction History of heart artery stent ~3 years ago, x2 stents, done in [place]; f/u dr guerra, [place]>will be seeing new cardio at [place] 2nd week of August 2022. History of cardiac cath ~3 years ago, SOB and "felt like throat was constricting", had "silent heart attack", x2 stents, done in [place] Family History Grandmother (Maternal) Diabetes Daughter Diabetes Father Suicide Hypertension Denies family history of Ovarian cancer Prostate cancer Myocardial infarction Breast cancer Lung cancer Colorectal cancer Stroke Social History Smoking Status: Never smoker Second Hand Exposure: No; Do You Dip or Chew Tobacco: No; Hx Alcohol Use: Yes Alcohol type: wine Alcohol Intake Frequency: 4 or More x per/Week Hx Substance Use: No Preferred Language: Romanian Communication Ability: Effective Visual Impairment: Limited Hearing Ability: Normal Scale Model Maker Required: No Beliefs That Will Affect Care: None marital status: Single Current Living Situation: Alone Current Living Situation Comment: Alone at [facility] at [facility] current occupational status: retired How many Children do You have: 2 Feels Safe at Home: Yes Childhood Exposure to Second-Hand Smoke: Yes caffeine: Yes Dental Care, Regularly: Yes Physical Activity Frequency: Does not Exercise Seatbelt Use: always Sunscreen Use: Yes Assistive Devices: Walker and Wheelchair Allergies Allergies Allergy/AdvReac Type Severity Reaction Status Date / Time cat dander Allergy Severe CAT Verified 01/11/24 07:51 HAIR---Swelling of Lip/Tongue/Throat Home Meds Home Medications Medication Instructions Recorded Confirmed ascorbic acid (vitamin C) 500 mg 1,000 mg PO QAM 08/07/22 01/21/24 capsule aspirin 81 mg tablet,delayed 81 mg PO QAM 08/07/22 01/21/24 release (Adult Low Dose Aspirin) coenzyme Q10 100 mg capsule 100 mg PO UD 08/07/22 01/21/24 lactobacillus combination no.9 4 6,000 mmu cells PO QAM use with 08/07/22 01/21/24 billion cell capsule (Adult 50 antibiotics Plus Probiotic) egcspyaq-xcixdfp-aliu-lutein tablet 1 tab PO QAM 08/07/22 01/21/24 thiamine HCl (vitamin B1) 100 mg 100 mg PO UD 02/05/23 01/21/24 tablet melatonin 5 mg capsule 3 mg PO HS Sleep 02/16/23 01/21/24 latanoprost 0.005 % eye drops 1 drp ophthalmic (eye) UD 08/21/23 01/21/24 upadacitinib 15 mg tablet,extended 15 mg PO DAILY 09/23/23 01/21/24 release 24 hr (Rinvoq) ranolazine 500 mg tablet,extended 500 mg PO BID 11/06/23 01/21/24 release,12 hr rivaroxaban 20 mg tablet (Xarelto) 20 mg PO DAILY 11/19/23 01/21/24 diclofenac sodium 1 % topical gel 2 g topical UD PRN Pain 12/15/23 01/21/24 (Voltaren Arthritis Pain) sennosides 8.6 mg tablet 8.6 mg PO HS 12/15/23 01/21/24 furosemide 20 mg tablet 20 mg PO DAILY edema or weight gain 12/22/23 01/21/24 acetaminophen 325 mg tablet 975 mg PO Q8H PRN mild pain,fever, 01/21/24 01/21/24 or headache amiodarone 200 mg tablet 200 mg PO UD 01/21/24 01/21/24 docusate sodium 100 mg capsule 100 mg PO BID 01/21/24 01/21/24 doxycycline monohydrate 100 mg 100 mg PO BID 01/21/24 01/21/24 tablet esomeprazole magnesium 40 mg 40 mg PO UD 01/21/24 01/21/24 capsule,delayed release (Nexium) folic acid 1 mg tablet 1 mg PO DAILY 01/21/24 01/21/24 isosorbide mononitrate 60 mg 60 mg PO UD 01/21/24 01/21/24 tablet,extended release 24 hr mirtazapine 30 mg tablet 30 mg PO HS 01/21/24 01/21/24 nitroglycerin 0.4 mg sublingual 0.4 mg sublingual DIRECTED PRN 01/21/24 01/21/24 tablet chest pin omega-3 fatty acids-vitamin E 1 cap PO DAILY 01/21/24 01/21/24 1,000 mg capsule omeprazole 20 mg capsule,delayed 20 mg PO DAILY 01/21/24 01/21/24 release oxycodone 5 mg tablet 10 mg PO UD PRN Pain 01/21/24 01/21/24 potassium chloride 20 mEq 10 meq PO BID PRN Other 01/21/24 01/21/24 tablet,extended release pravastatin 40 mg tablet 40 mg PO HS 01/21/24 01/21/24 travoprost 0.004 % eye drops 1 drp ophthalmic (eye) PM 01/21/24 01/21/24 vitamin E 1 cap PO DAILY 01/21/24 01/21/24 Previous Rx's Medication Instructions Recorded cholecalciferol (vitamin D3) 250 250 mcg PO DAILY 90 days #90 tabs 09/19/22 mcg (10,000 unit) tablet cyanocobalamin (vitamin B-12) 500 1,000 mcg (2 x 500 mcg) PO QAM #30 01/18/23 mcg tablet tabs hydroxyzine HCl 10 mg tablet 10 mg PO HS PRN anxiety or 01/18/23 insomnia #14 tabs gabapentin 400 mg capsule 400 mg PO TID 30 days #90 caps 09/03/23 olmesartan 5 mg tablet 5 mg PO DAILY 90 days #90 tabs 09/03/23 metoprolol tartrate 25 mg tablet 12.5 mg (1/2 x 25 mg) PO BID 30 09/24/23 days #30 tabs duloxetine 60 mg capsule,delayed 60 mg PO QAM #90 caps 10/29/23 release Results & Data (ED) Vital Signs Vital Signs - 24 hr 01/21/24 06:57 01/21/24 07:00 01/21/24 07:00 Temperature 39.4 C H Temperature Source Oral Pulse Rate 112 H 94 H Pulse Rate [Apical] Pulse Rate from SpO2 Sensor Respiratory Rate 28 H 28 H Respiratory Effort / Characteristics Short of Breath Short of Breath Respiratory Depth Blood Pressure 141/87 H Blood Pressure [Right Arm] Blood Pressure Mean 105 Blood Pressure Mean [Right Arm] Pulse Oximetry 94 92 Oxygen Delivery Method Room Air Room Air Sepsis Recent Fever Within 48 Hours Yes Sepsis New/Unexplained Change in Mental Status No Sepsis Action Taken by Nursing Physician Notified 01/21/24 07:00 01/21/24 07:41 01/21/24 07:49 Temperature Temperature Source Pulse Rate Pulse Rate [Apical] 99 H Pulse Rate from SpO2 Sensor Respiratory Rate 26 H 26 H Respiratory Effort / Characteristics Short of Breath Respiratory Depth Blood Pressure Blood Pressure [Right Arm] 113/69 Blood Pressure Mean Blood Pressure Mean [Right Arm] 83 Pulse Oximetry 93 93 Oxygen Delivery Method Room Air Room Air Sepsis Recent Fever Within 48 Hours Sepsis New/Unexplained Change in Mental Status Sepsis Action Taken by Nursing 01/21/24 08:49 01/21/24 09:07 01/21/24 10:00 Temperature Temperature Source Pulse Rate Pulse Rate [Apical] 89 93 H Pulse Rate from SpO2 Sensor Respiratory Rate 22 20 Respiratory Effort / Characteristics Non-Labored Respiratory Depth Normal Blood Pressure 104/59 L Blood Pressure [Right Arm] 95/59 L 95/55 L Blood Pressure Mean 67 Blood Pressure Mean [Right Arm] 71 68 Pulse Oximetry 94 94 Oxygen Delivery Method Room Air Room Air Sepsis Recent Fever Within 48 Hours Sepsis New/Unexplained Change in Mental Status Sepsis Action Taken by Nursing 01/21/24 10:00 01/21/24 10:06 01/21/24 10:10 Temperature Temperature Source Pulse Rate 84 Pulse Rate [Apical] Pulse Rate from SpO2 Sensor 84 Respiratory Rate 27 H Respiratory Effort / Characteristics Respiratory Depth Blood Pressure 104/59 L 94/58 L Blood Pressure [Right Arm] Blood Pressure Mean 67 66 Blood Pressure Mean [Right Arm] Pulse Oximetry 93 Oxygen Delivery Method Sepsis Recent Fever Within 48 Hours Sepsis New/Unexplained Change in Mental Status Sepsis Action Taken by Nursing 01/21/24 10:15 01/21/24 10:15 01/21/24 10:15 Temperature Temperature Source Pulse Rate 82 Pulse Rate [Apical] Pulse Rate from SpO2 Sensor 82 Respiratory Rate 25 H Respiratory Effort / Characteristics Respiratory Depth Blood Pressure 91/58 L 91/58 L Blood Pressure [Right Arm] Blood Pressure Mean 62 62 Blood Pressure Mean [Right Arm] Pulse Oximetry 91 Oxygen Delivery Method Sepsis Recent Fever Within 48 Hours Sepsis New/Unexplained Change in Mental Status Sepsis Action Taken by Nursing 01/21/24 10:20 01/21/24 10:20 01/21/24 10:20 Temperature Temperature Source Pulse Rate Pulse Rate [Apical] Pulse Rate from SpO2 Sensor Respiratory Rate Respiratory Effort / Characteristics Respiratory Depth Blood Pressure 95/60 L 95/60 L 95/60 L Blood Pressure [Right Arm] Blood Pressure Mean 65 65 65 Blood Pressure Mean [Right Arm] Pulse Oximetry Oxygen Delivery Method Sepsis Recent Fever Within 48 Hours Sepsis New/Unexplained Change in Mental Status Sepsis Action Taken by Nursing 01/21/24 10:21 01/21/24 10:25 01/21/24 10:30 Temperature Temperature Source Pulse Rate 82 Pulse Rate [Apical] Pulse Rate from SpO2 Sensor 82 Respiratory Rate 23 Respiratory Effort / Characteristics Respiratory Depth Blood Pressure 91/57 L 109/64 Blood Pressure [Right Arm] Blood Pressure Mean 66 68 Blood Pressure Mean [Right Arm] Pulse Oximetry 92 Oxygen Delivery Method Sepsis Recent Fever Within 48 Hours Sepsis New/Unexplained Change in Mental Status Sepsis Action Taken by Nursing 01/21/24 10:30 01/21/24 10:30 01/21/24 10:35 Temperature Temperature Source Pulse Rate 82 Pulse Rate [Apical] Pulse Rate from SpO2 Sensor 82 Respiratory Rate 22 Respiratory Effort / Characteristics Respiratory Depth Blood Pressure 109/64 97/60 L Blood Pressure [Right Arm] Blood Pressure Mean 68 70 Blood Pressure Mean [Right Arm] Pulse Oximetry 87 L Oxygen Delivery Method Sepsis Recent Fever Within 48 Hours Sepsis New/Unexplained Change in Mental Status Sepsis Action Taken by Nursing 01/21/24 10:40 01/21/24 10:40 01/21/24 10:42 Temperature Temperature Source Pulse Rate 81 Pulse Rate [Apical] Pulse Rate from SpO2 Sensor 81 Respiratory Rate 23 Respiratory Effort / Characteristics Respiratory Depth Blood Pressure 102/57 L 102/57 L Blood Pressure [Right Arm] Blood Pressure Mean 62 62 Blood Pressure Mean [Right Arm] Pulse Oximetry 96 Oxygen Delivery Method Sepsis Recent Fever Within 48 Hours Sepsis New/Unexplained Change in Mental Status Sepsis Action Taken by Nursing 01/21/24 10:45 01/21/24 10:50 01/21/24 10:50 Temperature Temperature Source Pulse Rate Pulse Rate [Apical] Pulse Rate from SpO2 Sensor Respiratory Rate Respiratory Effort / Characteristics Respiratory Depth Blood Pressure 103/56 L 97/52 L 97/52 L Blood Pressure [Right Arm] Blood Pressure Mean 66 66 66 Blood Pressure Mean [Right Arm] Pulse Oximetry Oxygen Delivery Method Sepsis Recent Fever Within 48 Hours Sepsis New/Unexplained Change in Mental Status Sepsis Action Taken by Nursing 01/21/24 10:54 01/21/24 10:55 01/21/24 10:55 Temperature Temperature Source Pulse Rate 81 Pulse Rate [Apical] Pulse Rate from SpO2 Sensor 79 Respiratory Rate 16 Respiratory Effort / Characteristics Respiratory Depth Blood Pressure 92/53 L 92/53 L Blood Pressure [Right Arm] Blood Pressure Mean 58 58 Blood Pressure Mean [Right Arm] Pulse Oximetry 96 Oxygen Delivery Method Sepsis Recent Fever Within 48 Hours Sepsis New/Unexplained Change in Mental Status Sepsis Action Taken by Nursing 01/21/24 10:58 01/21/24 11:01 01/21/24 11:01 Temperature Temperature Source Pulse Rate 79 Pulse Rate [Apical] Pulse Rate from SpO2 Sensor Respiratory Rate Respiratory Effort / Characteristics Respiratory Depth Blood Pressure 86/53 L 86/53 L Blood Pressure [Right Arm] Blood Pressure Mean 66 66 Blood Pressure Mean [Right Arm] Pulse Oximetry Oxygen Delivery Method Sepsis Recent Fever Within 48 Hours Sepsis New/Unexplained Change in Mental Status Sepsis Action Taken by Nursing 01/21/24 11:03 01/21/24 11:05 01/21/24 11:10 Temperature Temperature Source Pulse Rate 84 Pulse Rate [Apical] Pulse Rate from SpO2 Sensor 81 Respiratory Rate 25 H Respiratory Effort / Characteristics Respiratory Depth Blood Pressure 99/62 L 93/61 L Blood Pressure [Right Arm] Blood Pressure Mean 69 70 Blood Pressure Mean [Right Arm] Pulse Oximetry 77 L Oxygen Delivery Method Sepsis Recent Fever Within 48 Hours Sepsis New/Unexplained Change in Mental Status Sepsis Action Taken by Nursing 01/21/24 11:10 01/21/24 11:12 01/21/24 11:15 Temperature Temperature Source Pulse Rate 79 Pulse Rate [Apical] Pulse Rate from SpO2 Sensor 92 H Respiratory Rate 21 Respiratory Effort / Characteristics Respiratory Depth Blood Pressure 93/61 L 103/66 Blood Pressure [Right Arm] Blood Pressure Mean 70 70 Blood Pressure Mean [Right Arm] Pulse Oximetry 77 L Oxygen Delivery Method Sepsis Recent Fever Within 48 Hours Sepsis New/Unexplained Change in Mental Status Sepsis Action Taken by Nursing 01/21/24 11:20 01/21/24 11:20 01/21/24 11:20 Temperature Temperature Source Pulse Rate Pulse Rate [Apical] Pulse Rate from SpO2 Sensor Respiratory Rate Respiratory Effort / Characteristics Respiratory Depth Blood Pressure 103/69 103/69 103/69 Blood Pressure [Right Arm] Blood Pressure Mean 78 78 78 Blood Pressure Mean [Right Arm] Pulse Oximetry Oxygen Delivery Method Sepsis Recent Fever Within 48 Hours Sepsis New/Unexplained Change in Mental Status Sepsis Action Taken by Nursing 01/21/24 11:21 01/21/24 11:24 01/21/24 11:25 Temperature Temperature Source Pulse Rate 78 79 Pulse Rate [Apical] Pulse Rate from SpO2 Sensor 127 H 178 H Respiratory Rate 22 24 Respiratory Effort / Characteristics Respiratory Depth Blood Pressure 106/61 Blood Pressure [Right Arm] Blood Pressure Mean 90 Blood Pressure Mean [Right Arm] Pulse Oximetry 78 L 78 L Oxygen Delivery Method Sepsis Recent Fever Within 48 Hours Sepsis New/Unexplained Change in Mental Status Sepsis Action Taken by Nursing 01/21/24 11:25 01/21/24 11:30 01/21/24 11:35 Temperature Temperature Source Pulse Rate Pulse Rate [Apical] Pulse Rate from SpO2 Sensor Respiratory Rate Respiratory Effort / Characteristics Respiratory Depth Blood Pressure 106/61 101/54 L 112/71 Blood Pressure [Right Arm] Blood Pressure Mean 90 68 88 Blood Pressure Mean [Right Arm] Pulse Oximetry Oxygen Delivery Method Sepsis Recent Fever Within 48 Hours Sepsis New/Unexplained Change in Mental Status Sepsis Action Taken by Nursing 01/21/24 11:35 01/21/24 11:35 01/21/24 11:39 Temperature Temperature Source Pulse Rate 80 Pulse Rate [Apical] Pulse Rate from SpO2 Sensor 80 Respiratory Rate 23 Respiratory Effort / Characteristics Respiratory Depth Blood Pressure 112/71 112/71 Blood Pressure [Right Arm] Blood Pressure Mean 88 88 Blood Pressure Mean [Right Arm] Pulse Oximetry 94 Oxygen Delivery Method Sepsis Recent Fever Within 48 Hours Sepsis New/Unexplained Change in Mental Status Sepsis Action Taken by Nursing 01/21/24 11:40 01/21/24 11:40 01/21/24 11:45 Temperature Temperature Source Pulse Rate 78 Pulse Rate [Apical] Pulse Rate from SpO2 Sensor 78 Respiratory Rate 23 Respiratory Effort / Characteristics Respiratory Depth Blood Pressure 106/64 106/64 Blood Pressure [Right Arm] Blood Pressure Mean 75 75 Blood Pressure Mean [Right Arm] Pulse Oximetry 98 Oxygen Delivery Method Sepsis Recent Fever Within 48 Hours Sepsis New/Unexplained Change in Mental Status Sepsis Action Taken by Nursing 01/21/24 11:45 01/21/24 11:45 01/21/24 11:45 Temperature Temperature Source Pulse Rate Pulse Rate [Apical] Pulse Rate from SpO2 Sensor Respiratory Rate Respiratory Effort / Characteristics Respiratory Depth Blood Pressure 101/62 101/62 101/62 Blood Pressure [Right Arm] Blood Pressure Mean 77 77 77 Blood Pressure Mean [Right Arm] Pulse Oximetry Oxygen Delivery Method Sepsis Recent Fever Within 48 Hours Sepsis New/Unexplained Change in Mental Status Sepsis Action Taken by Nursing 01/21/24 11:50 01/21/24 11:50 01/21/24 11:54 Temperature Temperature Source Pulse Rate 78 Pulse Rate [Apical] Pulse Rate from SpO2 Sensor 78 Respiratory Rate 23 Respiratory Effort / Characteristics Respiratory Depth Blood Pressure 106/60 106/60 Blood Pressure [Right Arm] Blood Pressure Mean 77 77 Blood Pressure Mean [Right Arm] Pulse Oximetry 96 Oxygen Delivery Method Sepsis Recent Fever Within 48 Hours Sepsis New/Unexplained Change in Mental Status Sepsis Action Taken by Nursing 01/21/24 11:55 01/21/24 11:55 01/21/24 12:00 Temperature Temperature Source Pulse Rate Pulse Rate [Apical] Pulse Rate from SpO2 Sensor Respiratory Rate Respiratory Effort / Characteristics Respiratory Depth Blood Pressure 111/69 111/69 98/66 L Blood Pressure [Right Arm] Blood Pressure Mean 95 95 75 Blood Pressure Mean [Right Arm] Pulse Oximetry Oxygen Delivery Method Sepsis Recent Fever Within 48 Hours Sepsis New/Unexplained Change in Mental Status Sepsis Action Taken by Nursing 01/21/24 12:00 01/21/24 12:00 01/21/24 12:00 Temperature Temperature Source Pulse Rate 78 Pulse Rate [Apical] Pulse Rate from SpO2 Sensor 78 Respiratory Rate 23 Respiratory Effort / Characteristics Respiratory Depth Blood Pressure 98/66 L 98/66 L Blood Pressure [Right Arm] Blood Pressure Mean 75 75 Blood Pressure Mean [Right Arm] Pulse Oximetry 98 Oxygen Delivery Method Sepsis Recent Fever Within 48 Hours Sepsis New/Unexplained Change in Mental Status Sepsis Action Taken by Nursing 01/21/24 12:05 01/21/24 12:06 01/21/24 12:10 Temperature Temperature Source Pulse Rate 78 Pulse Rate [Apical] Pulse Rate from SpO2 Sensor 78 Respiratory Rate 23 Respiratory Effort / Characteristics Respiratory Depth Blood Pressure 111/65 112/69 Blood Pressure [Right Arm] Blood Pressure Mean 93 77 Blood Pressure Mean [Right Arm] Pulse Oximetry 97 Oxygen Delivery Method Sepsis Recent Fever Within 48 Hours Sepsis New/Unexplained Change in Mental Status Sepsis Action Taken by Nursing 01/21/24 12:10 01/21/24 12:12 01/21/24 12:15 Temperature Temperature Source Pulse Rate 78 Pulse Rate [Apical] Pulse Rate from SpO2 Sensor 78 Respiratory Rate 22 Respiratory Effort / Characteristics Respiratory Depth Blood Pressure 112/69 119/78 Blood Pressure [Right Arm] Blood Pressure Mean 77 101 Blood Pressure Mean [Right Arm] Pulse Oximetry 99 Oxygen Delivery Method Sepsis Recent Fever Within 48 Hours Sepsis New/Unexplained Change in Mental Status Sepsis Action Taken by Nursing 01/21/24 12:15 01/21/24 12:18 01/21/24 12:20 Temperature Temperature Source Pulse Rate 79 Pulse Rate [Apical] Pulse Rate from SpO2 Sensor 78 Respiratory Rate 22 Respiratory Effort / Characteristics Respiratory Depth Blood Pressure 119/78 105/63 Blood Pressure [Right Arm] Blood Pressure Mean 101 78 Blood Pressure Mean [Right Arm] Pulse Oximetry 98 Oxygen Delivery Method Sepsis Recent Fever Within 48 Hours Sepsis New/Unexplained Change in Mental Status Sepsis Action Taken by Nursing 01/21/24 12:20 01/21/24 12:20 01/21/24 12:21 Temperature Temperature Source Pulse Rate 78 Pulse Rate [Apical] Pulse Rate from SpO2 Sensor 78 Respiratory Rate 23 Respiratory Effort / Characteristics Respiratory Depth Blood Pressure 105/63 105/63 Blood Pressure [Right Arm] Blood Pressure Mean 78 78 Blood Pressure Mean [Right Arm] Pulse Oximetry 99 Oxygen Delivery Method Sepsis Recent Fever Within 48 Hours Sepsis New/Unexplained Change in Mental Status Sepsis Action Taken by Nursing 01/21/24 12:25 01/21/24 12:25 01/21/24 12:30 Temperature Temperature Source Pulse Rate Pulse Rate [Apical] Pulse Rate from SpO2 Sensor Respiratory Rate Respiratory Effort / Characteristics Respiratory Depth Blood Pressure 99/67 L 99/67 L 105/64 Blood Pressure [Right Arm] Blood Pressure Mean 74 74 82 Blood Pressure Mean [Right Arm] Pulse Oximetry Oxygen Delivery Method Sepsis Recent Fever Within 48 Hours Sepsis New/Unexplained Change in Mental Status Sepsis Action Taken by Nursing 01/21/24 12:30 01/21/24 12:33 01/21/24 12:41 Temperature Temperature Source Pulse Rate 87 Pulse Rate [Apical] Pulse Rate from SpO2 Sensor 81 Respiratory Rate 18 Respiratory Effort / Characteristics Respiratory Depth Blood Pressure 105/64 121/65 Blood Pressure [Right Arm] Blood Pressure Mean 82 83 Blood Pressure Mean [Right Arm] Pulse Oximetry 81 L Oxygen Delivery Method Sepsis Recent Fever Within 48 Hours Sepsis New/Unexplained Change in Mental Status Sepsis Action Taken by Nursing 01/21/24 12:41 01/21/24 12:42 01/21/24 12:45 Temperature Temperature Source Pulse Rate 75 Pulse Rate [Apical] Pulse Rate from SpO2 Sensor 75 Respiratory Rate 22 Respiratory Effort / Characteristics Respiratory Depth Blood Pressure 121/65 110/66 Blood Pressure [Right Arm] Blood Pressure Mean 83 90 Blood Pressure Mean [Right Arm] Pulse Oximetry 97 Oxygen Delivery Method Sepsis Recent Fever Within 48 Hours Sepsis New/Unexplained Change in Mental Status Sepsis Action Taken by Nursing 01/21/24 12:50 01/21/24 12:54 01/21/24 12:55 Temperature Temperature Source Pulse Rate 74 Pulse Rate [Apical] Pulse Rate from SpO2 Sensor 74 Respiratory Rate 22 Respiratory Effort / Characteristics Respiratory Depth Blood Pressure 96/61 L 115/69 Blood Pressure [Right Arm] Blood Pressure Mean 67 79 Blood Pressure Mean [Right Arm] Pulse Oximetry 95 Oxygen Delivery Method Sepsis Recent Fever Within 48 Hours Sepsis New/Unexplained Change in Mental Status Sepsis Action Taken by Nursing 01/21/24 12:55 01/21/24 13:00 01/21/24 13:00 Temperature Temperature Source Pulse Rate Pulse Rate [Apical] Pulse Rate from SpO2 Sensor Respiratory Rate Respiratory Effort / Characteristics Respiratory Depth Blood Pressure 115/69 95/60 L 95/60 L Blood Pressure [Right Arm] Blood Pressure Mean 79 63 63 Blood Pressure Mean [Right Arm] Pulse Oximetry Oxygen Delivery Method Sepsis Recent Fever Within 48 Hours Sepsis New/Unexplained Change in Mental Status Sepsis Action Taken by Nursing 01/21/24 13:00 01/21/24 13:00 01/21/24 13:00 Temperature Temperature Source Pulse Rate 75 Pulse Rate [Apical] Pulse Rate from SpO2 Sensor 75 Respiratory Rate 23 Respiratory Effort / Characteristics Respiratory Depth Blood Pressure 95/60 L 95/60 L Blood Pressure [Right Arm] Blood Pressure Mean 63 63 Blood Pressure Mean [Right Arm] Pulse Oximetry 95 Oxygen Delivery Method Sepsis Recent Fever Within 48 Hours Sepsis New/Unexplained Change in Mental Status Sepsis Action Taken by Nursing 01/21/24 13:03 01/21/24 13:05 01/21/24 13:10 Temperature Temperature Source Pulse Rate 74 Pulse Rate [Apical] Pulse Rate from SpO2 Sensor 75 Respiratory Rate 22 Respiratory Effort / Characteristics Respiratory Depth Blood Pressure 101/64 114/70 Blood Pressure [Right Arm] Blood Pressure Mean 87 101 Blood Pressure Mean [Right Arm] Pulse Oximetry 96 Oxygen Delivery Method Sepsis Recent Fever Within 48 Hours Sepsis New/Unexplained Change in Mental Status Sepsis Action Taken by Nursing 01/21/24 13:10 01/21/24 13:10 01/21/24 13:15 Temperature Temperature Source Pulse Rate Pulse Rate [Apical] Pulse Rate from SpO2 Sensor Respiratory Rate Respiratory Effort / Characteristics Respiratory Depth Blood Pressure 114/70 114/70 142/74 H Blood Pressure [Right Arm] Blood Pressure Mean 101 101 98 Blood Pressure Mean [Right Arm] Pulse Oximetry Oxygen Delivery Method Sepsis Recent Fever Within 48 Hours Sepsis New/Unexplained Change in Mental Status Sepsis Action Taken by Nursing 01/21/24 13:15 01/21/24 13:15 01/21/24 13:15 Temperature Temperature Source Pulse Rate Pulse Rate [Apical] Pulse Rate from SpO2 Sensor Respiratory Rate Respiratory Effort / Characteristics Respiratory Depth Blood Pressure 142/74 H 142/74 H 142/74 H Blood Pressure [Right Arm] Blood Pressure Mean 98 98 98 Blood Pressure Mean [Right Arm] Pulse Oximetry Oxygen Delivery Method Sepsis Recent Fever Within 48 Hours Sepsis New/Unexplained Change in Mental Status Sepsis Action Taken by Nursing 01/21/24 13:15 Temperature Temperature Source Pulse Rate 80 Pulse Rate [Apical] Pulse Rate from SpO2 Sensor 81 Respiratory Rate 18 Respiratory Effort / Characteristics Respiratory Depth Blood Pressure Blood Pressure [Right Arm] Blood Pressure Mean Blood Pressure Mean [Right Arm] Pulse Oximetry 89 L Oxygen Delivery Method Sepsis Recent Fever Within 48 Hours Sepsis New/Unexplained Change in Mental Status Sepsis Action Taken by [facility] Medications Current Medication List: was personally reviewed by me Laboratory Data Attestation: I reviewed the patient's lab results. 01/21/24 07:02 01/21/24 07:02 Lab Results 01/21/24 01/21/24 01/21/24 Range/Units 07:02 07:07 08:44 WBC 6.45 (4.8-10.8) K/ul RBC 4.60 L (4.70-6.10) M/uL Hgb 15.8 (14.0-18.0) g/dl Hct 47.4 (42.0-52.0) % MCV 103.0 H (80.0-100.0) fL MCH 34.3 H (25.0-34.0) pg MCHC 33.3 (32.0-36.0) g/dL RDW Std Deviation 59.8 H (36.4-46.3) fL RDW Coeff of Sammie 15.7 H (11.5-14.5) % Plt Count 166 (130-400) K/uL MPV 9.9 (9.4-12.4) fL Immature Gran % (Auto) 0.9 % Neut % (Auto) 93.0 % Lymph % (Auto) 4.8 % [place] % (Auto) 0.8 % Eos % (Auto) 0.3 % Baso % (Auto) 0.2 % Neut # (Auto) 6.00 (1.40-6.50) K/uL Lymph # (Auto) 0.31 L (1.20-3.40) K/uL [place] # (Auto) 0.05 L (0.11-0.59) K/uL Eos # (Auto) 0.02 (0.00-0.50) K/uL Baso # (Auto) 0.01 (0.00-0.20) K/uL Immature Gran # (Auto) 0.06 (0.01-0.20) K/uL RBC Morphology Unremarkable PT 12.0 (9.0-12.0) Seconds INR 1.1 (0.9-1.1) APTT 23 (21-31) Seconds PTT Ratio 0.9 Sodium 137 (136-145) mmol/L Potassium 5.0 (3.5-5.1) mmol/L Chloride 99 (98-107) mmol/L Carbon Dioxide 30 (21-32) mmol/L Anion Gap 8 (3-11) BUN 48 H (6-23) mg/dl Creatinine 1.25 (0.6-1.4) mg/dl Est Cr Clr Drug Dosing 61.0 ml/min Est GFR ( Amer) 62.6 ml/min Est GFR (Non-Af Amer) 54.0 ml/min BUN/Creatinine Ratio 38.4 H (10-20) Glucose 132 H (70-99(Fasting)) mg/dl Lactate 2.2 H* 2.1 H* (0.4-2.0) mmol/L Calcium 9.3 (8.6-10.3) mg/dl Magnesium 1.9 (1.7-2.4) mg/dl Total Bilirubin 1.4 H (0.2-1.0) mg/dl Direct Bilirubin 0.4 H (0-0.2) mg/dl AST 48 H (13-39) U/L ALT 44 (7-52) U/L Alkaline Phosphatase 109 H (34-104) U/L Troponin I High Sens 65.3 H* (0-20) pg/ml Total Protein 7.3 (6.0-8.3) gm/dl Albumin 4.5 (3.4-5.0) gm/dl Procalcitonin 0.41 (0-0.5) ng/ml Urine Color Dark Yellow Urine Appearance Turbid A (Clear) Urine pH 5.5 (4.5-7.5) Ur Specific [place] 1.022 (1.000-1.030) Urine Protein 2+ H (Negative) Urine Glucose (UA) Negative (Negative) Urine Ketones Negative (Negative) Urine Blood 3+ H (Negative) Urine Nitrite Positive A (Negative) Urine Bilirubin Negative (Negative) Urine Urobilinogen Negative (Negative) Ur Leukocyte Esterase 3+ H (Negative) Urine WBC (Auto) >50 H (0-5) /hpf Urine RBC (Auto) >20 H (0-2) /hpf U Hyaline Cast (Auto) 11-20 H (0-2) /lpf U Epithel Cells (Auto) 3-5 H (0-2) /hpf Urine Bacteria (Auto) 4+ H (None Seen) Adenovirus (PCR) Not Detected (NotDetected) B. pertussis DNA (PCR) Not Detected (NotDetected) B.parapertussis DNA PCR Not Detected (NotDetected) C. pneumoniae DNA (PCR) Not Detected (NotDetected) Coronavirus OC43 (PCR) Not Detected (NotDetected) Coronavirus HKU1 (PCR) Not Detected (NotDetected) Coronavirus 229E (PCR) Not Detected (NotDetected) SARS-CoV-2 (PCR) Not Detected (NotDetected) Coronavirus NL63 (PCR) Not Detected (NotDetected) Human Metapneumovir PCR Not Detected (NotDetected) Influenza Type A (PCR) Not Detected (NotDetected) Influenza Type B (PCR) Not Detected (NotDetected) M. pneumoniae (PCR) Not Detected (NotDetected) Parainfluenza 1 (PCR) Not Detected (NotDetected) Parainfluenza 2 (PCR) Not Detected (NotDetected) Parainfluenza 3 (PCR) Not Detected (NotDetected) Parainfluenza 4 (PCR) Not Detected (NotDetected) RSV (PCR) Not Detected (NotDetected) Entero/Rhino (PCR) Not Detected (NotDetected) 01/21/24 Range/Units 09:06 WBC (4.8-10.8) K/ul RBC (4.70-6.10) M/uL Hgb (14.0-18.0) g/dl Hct (42.0-52.0) % MCV (80.0-100.0) fL MCH (25.0-34.0) pg MCHC (32.0-36.0) g/dL RDW Std Deviation (36.4-46.3) fL RDW Coeff of Sammie (11.5-14.5) % Plt Count (130-400) K/uL MPV (9.4-12.4) fL Immature Gran % (Auto) % Neut % (Auto) % Lymph % (Auto) % [place] % (Auto) % Eos % (Auto) % Baso % (Auto) % Neut # (Auto) (1.40-6.50) K/uL Lymph # (Auto) (1.20-3.40) K/uL [place] # (Auto) (0.11-0.59) K/uL Eos # (Auto) (0.00-0.50) K/uL Baso # (Auto) (0.00-0.20) K/uL Immature Gran # (Auto) (0.01-0.20) K/uL RBC Morphology PT (9.0-12.0) Seconds INR (0.9-1.1) APTT (21-31) Seconds PTT Ratio Sodium (136-145) mmol/L Potassium (3.5-5.1) mmol/L Chloride (98-107) mmol/L Carbon Dioxide (21-32) mmol/L Anion Gap (3-11) BUN (6-23) mg/dl Creatinine (0.6-1.4) mg/dl Est Cr Clr Drug Dosing ml/min Est GFR ( Amer) ml/min Est GFR (Non-Af Amer) ml/min BUN/Creatinine Ratio (10-20) Glucose (70-99(Fasting)) mg/dl Lactate (0.4-2.0) mmol/L Calcium (8.6-10.3) mg/dl Magnesium (1.7-2.4) mg/dl Total Bilirubin (0.2-1.0) mg/dl Direct Bilirubin (0-0.2) mg/dl AST (13-39) U/L ALT (7-52) U/L Alkaline Phosphatase (34-104) U/L Troponin I High Sens 137.7 H* D (0-20) pg/ml Total Protein (6.0-8.3) gm/dl Albumin (3.4-5.0) gm/dl Procalcitonin (0-0.5) ng/ml Urine Color Urine Appearance (Clear) Urine pH (4.5-7.5) Ur Specific [place] (1.000-1.030) Urine Protein (Negative) Urine Glucose (UA) (Negative) Urine Ketones (Negative) Urine Blood (Negative) Urine Nitrite (Negative) Urine Bilirubin (Negative) Urine Urobilinogen (Negative) Ur Leukocyte Esterase (Negative) Urine WBC (Auto) (0-5) /hpf Urine RBC (Auto) (0-2) /hpf U Hyaline Cast (Auto) (0-2) /lpf U Epithel Cells (Auto) (0-2) /hpf Urine Bacteria (Auto) (None Seen) Adenovirus (PCR) (NotDetected) B. pertussis DNA (PCR) (NotDetected) B.parapertussis DNA PCR (NotDetected) C. pneumoniae DNA (PCR) (NotDetected) Coronavirus OC43 (PCR) (NotDetected) Coronavirus HKU1 (PCR) (NotDetected) Coronavirus 229E (PCR) (NotDetected) SARS-CoV-2 (PCR) (NotDetected) Coronavirus NL63 (PCR) (NotDetected) Human Metapneumovir PCR (NotDetected) Influenza Type A (PCR) (NotDetected) Influenza Type B (PCR) (NotDetected) M. pneumoniae (PCR) (NotDetected) Parainfluenza 1 (PCR) (NotDetected) Parainfluenza 2 (PCR) (NotDetected) Parainfluenza 3 (PCR) (NotDetected) Parainfluenza 4 (PCR) (NotDetected) RSV (PCR) (NotDetected) Entero/Rhino (PCR) (NotDetected) Administered Medications Discontinued Medications Sodium Chloride (Nss) 1,000 mls @ 999 mls/hr IV .Q1H1M ELDER Stop: 01/21/24 08:15 Last Infusion: 01/21/24 08:16 Dose: Infused Documented By: Admin: 01/21/24 07:11 Dose: 999 mls/hr Documented By: DIANA Cefepime HCl (Maxipime) 2,000 mg in 20 mls @ 5 mls/min IV NOW STA; Protocol Stop: 01/21/24 07:07 Last Admin: 01/21/24 07:11 Dose: 5 mls/min Documented By: DIANA Acetaminophen (Ofirmev) 1,000 mg in 100 mls @ 400 mls/hr IV NOW STA Stop: 01/21/24 07:18 Last Infusion: 01/21/24 07:51 Dose: Infused Documented By: Admin: 01/21/24 07:11 Dose: 400 mls/hr Documented By: DIANA Vancomycin HCl 2,750 mg/ (Sodium Chloride) 555 mls @ 200 mls/hr IV NOW ONE Stop: 01/21/24 10:51 Last Infusion: 01/21/24 11:31 Dose: Infused Documented By: Admin: 01/21/24 08:43 Dose: 200 mls/hr Documented By: DIANA Sodium Chloride (Nss) 1,000 mls @ 999 mls/hr IV .Q1H1M ONE Stop: 01/21/24 09:57 Last Infusion: 01/21/24 10:42 Dose: Infused Documented By: Admin: 01/21/24 09:07 Dose: 999 mls/hr Documented By: DIANA Sodium Chloride (Nss) 500 mls @ 999 mls/hr IV .Q31M ONE Stop: 01/21/24 10:27 Last Infusion: 01/21/24 10:42 Dose: Infused Documented By: Admin: 01/21/24 10:10 Dose: 999 mls/hr Documented By: DIANA Sodium Chloride (Nss) 250 mls @ 999 mls/hr IV .Q16M ONE Stop: 01/21/24 10:12 Last Infusion: 01/21/24 11:16 Dose: Infused Documented By: Admin: 01/21/24 10:42 Dose: 999 mls/hr Documented By: DIANA Imaging Data Radiologist's Impression: Chest X-Ray 01/21/24 07:04 XR chest 1V portable CLINICAL HISTORY: Sepsis. COMPARISON STUDY: Chest radiograph December 14, 2023. FINDINGS: Low lung volumes are unchanged. Cardiomegaly is unchanged. There is no evidence for pulmonary edema. Linear left basilar densities favor atelectasis. There is no evidence for pulmonary edema. No consolidation to suggest pneumonia. IMPRESSION: 1. No acute cardiopulmonary findings. 2. Left basilar densities suggestive of atelectasis. No consolidation to suggest pneumonia. ACT 112: Negative or not required by law. Electronically signed by: Jong Nascimento M.D. 01/21/2024 7:37 AM Abdomen/Pelvis CT 01/21/24 08:57 CT OF THE ABDOMEN AND PELVIS WITHOUT CONTRAST CLINICAL HISTORY: Possible hydronephrosis. UTI. COMPARISON STUDY: CT of the abdomen pelvis December 12, 2023. TECHNIQUE: Axial images of the abdomen and pelvis were obtained without IV contrast. Images were reviewed in the axial, sagittal, and coronal planes. Automated exposure control was utilized for the study. A dose lowering technique was utilized adhering to the principles of ALARA. FINDINGS: Subpleural opacities within the lower lungs favor atelectasis. Calcified lymph nodes within the lower chest as well as calcified granulomas within lungs indicating a previous granulomas process. There are calcified granulomas within the spleen. Small bilateral renal calculi measure up to 5 mm. There are no ureteral calculi. There is no hydronephrosis. Water attenuation bilateral renal lesions favor cysts. Suspected hyperdense cyst within lower pole of the right kidney. There are no ureteral calculi. There is no hydronephrosis. Images of the pelvis are degraded by streak artifact from a right hip arthroplasty. Status post sigmoid resection without evidence for a bowel obstruction. No bowel wall thickening is identified on unenhanced exam. The appendix is not visualized and may be surgically absent. There is no abdominal or pelvic lymphadenopathy. 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 This is unchanged since prior CT. No acute fractures are present within the lumbar spine, pelvis or hips. 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 Stable postoperative findings of the anterior abdominal wall with ventral mesh. IMPRESSION: 1. No acute process within the abdomen or pelvis on unenhanced exam. 2. Bilateral nephrolithiasis. No ureteral calculi. No hydronephrosis. No bowel obstruction. ACT 112: Negative or not required by law. Electronically signed by: Jong Nascimento M.D. 01/21/2024 10:12 AM Discharge Plan Visit Data Chief Complaint: Illness Stated Complaint: ILLNESS ED Provider: Maxime Loomis Discharge Problem: Sepsis, Fever, Elevated lactic acid level, Tachycardia, Acute UTI Patient Disposition: Admitted As Inpatient Condition: Serious Discharge Instructions Interventions: ED Discharge Assessment Last Done: 01/21/24 13:58 Discharge Problem: Sepsis Qualifiers: Sepsis type: sepsis due to unspecified organism Sepsis acute organ dysfunction status: without acute organ dysfunction Qualified Code(s): A41.9 - Sepsis, unspecified organism Fever Qualifiers: Fever type: unspecified Qualified Code(s): R50.9 - Fever, unspecified
[2024-01-21 07:26] LABS: Hematocrit (blood only) 47.4 % (42.0-52.0); Hemoglobin 15.8 g/dl (14.0-18.0); Mean Corpuscular Hemoglobin 34.3 pg (25.0-34.0); Mean Corpuscular Hgb Conc 33.3 g/dL (32.0-36.0); Mean Platelet Volume 9.9 fL (9.4-12.4); Platelet Count 166 K/uL (130-400); RDW Coefficient of Variation 15.7 % (11.5-14.5); RDW Standard Deviation 59.8 fL (36.4-46.3); White Blood Count 6.45 K/ul (4.8-10.8)
--- NOTE | 2024-01-21 07:39 | XRay Report ---
XR chest 1V portable CLINICAL HISTORY: Sepsis. COMPARISON STUDY: Chest radiograph December 14, 2023. FINDINGS: Low lung volumes are unchanged. Cardiomegaly is unchanged. There is no evidence for pulmona ry edema. Linear left basilar densities favor atelectasis. There is no evidence for pulmonary edema. No consolidation to suggest pneumonia. IMPRESSION: 1. No acute cardiopulmonary findings. 2. Left basilar densities suggestive of atelectasis. No consolidation to suggest pneumonia. ACT 112: Negative or not required by law. Electronically signed by: Jong Nascimento M.D. 01/21/2024 7:37 AM
[2024-01-21 07:45] LABS: Basophils # (auto) 0.01 K/uL (0.00-0.20); Basophils % (auto) 0.2 %; Eosinophils # (auto) 0.02 K/uL (0.00-0.50); Eosinophils % (auto) 0.3 %; Immature Granulocytes # (auto) 0.06 K/uL (0.01-0.20); Immature Granulocytes % (auto) 0.9 %; Lymphocytes # (auto) 0.31 K/uL (1.20-3.40); Lymphocytes % (auto) 4.8 %; Monocytes # (auto) 0.05 K/uL (0.11-0.59); Monocytes % (auto) 0.8 %; RBC Morphology Unremarkable
[2024-01-21 07:48] LABS: Albumin Level 4.5 gm/dl (3.4-5.0); BUN Creatinine Ratio 38.4 (10-20); Bilirubin Direct 0.4 mg/dl (0-0.2); Bilirubin,Total 1.4 mg/dl (0.2-1.0); Calcium 9.3 mg/dl (8.6-10.3); Est GFR (African American) 62.6 ml/min; Magnesium 1.9 mg/dl (1.7-2.4); Total Protein 7.3 gm/dl (6.0-8.3)
[2024-01-21 07:53] LABS: INR 1.1 (0.9-1.1); Partial Thromboplastin Ratio 0.9; Partial Thromboplastin Time 23 Seconds (21-31)
[2024-01-21 08:01] LABS: Troponin I High Sensitivity 65.3 pg/ml (0-20)
[2024-01-21] MEDS ORDERED: VANCOMYCIN CONSULT ACTIVE PRN (08:05)
[2024-01-21 08:30] LABS: Appearance Urine Turbid (Clear); Bacteria Urine Automated 4+ (None Seen); Bilirubin Urine Negative (Negative); Blood Urine 3+ (Negative); Color Urine Dark Yellow; Glucose Urine UA Negative (Negative); Ketones Urine Negative (Negative); Leukocyte Esterase Urine 3+ (Negative); Nitrite Urine Positive (Negative); Protein Urine 2+ (Negative); RBC Urine Automated >20 /hpf (0-2); Specific Gravity Urine 1.022 (1.000-1.030); Urobilinogen Urine Negative (Negative); WBC Urine Automated >50 /hpf (0-5); pH Urine 5.5 (4.5-7.5)
[2024-01-21 08:37] LABS: Adenovirus PCR Not Detected (NotDetected); Bordetella parapertussis PCR Not Detected (NotDetected); Bordetella pertussis PCR Not Detected (NotDetected); Chlamydia pneumoniae PCR Not Detected (NotDetected); Coronavirus 229E PCR Not Detected (NotDetected); Coronavirus CoV-2 (COVID19)PCR Not Detected (NotDetected); Coronavirus HKU1 PCR Not Detected (NotDetected); Coronavirus NL63 PCR Not Detected (NotDetected); Coronavirus OC43PCR Not Detected (NotDetected); Human Metapneumovirus PCR Not Detected (NotDetected); Influenza A PCR Not Detected (NotDetected); Influenza B PCR Not Detected (NotDetected); Mycoplasma pneumoniae PCR Not Detected (NotDetected); Parainfluenza Virus 1 PCR Not Detected (NotDetected); Parainfluenza Virus 2 PCR Not Detected (NotDetected); Parainfluenza Virus 3 PCR Not Detected (NotDetected); Parainfluenza Virus 4 PCR Not Detected (NotDetected); Respiratory Syncytial VirusPCR Not Detected (NotDetected); Rhinovirus/Enterovirus PCR Not Detected (NotDetected)
[2024-01-21] MEDS: VANCOMYCIN HCL 2,750 MG in SODIUM CHLORIDE 0.9% 500 ML IV ONE (08:43)
[2024-01-21] MEDS ORDERED: POLYETHYLENE (MIRALAX) 17 GM PACK PO PRN (09:07)
[2024-01-21] MEDS: SODIUM CHLORIDE 0.9% 1,000 ML IV ONE (09:07)
[2024-01-21] MEDS ORDERED: ONDANSETRON INJ 2 MG/ML 2 ML VIAL IV PRN (09:07)
--- NOTE | 2024-01-21 09:51 | History & Physical Report ---
Date of Service January 21, 2024 Assessment & Plan (1) Severe sepsis: Plan: Presented within septic shock secondary to suspected urinary source. - Patient did become hypotensive upon arrival to ED. Was given 2750 cc of IVF and blood pressure seem to respond appropriately, though still remains slightly low. - Lactate elevated at 2.1 on admission, consistent with sepsis. - UA positive on arrival - Urine culture and blood culture pending. Continue to follow. - CXR negative for pneumonia or acute heart failure exacerbation. - CT A/P revealed bilateral nephrolithiasis, no hydronephrosis. - Continue Vancomycin and Cefepime. Downgrade antibiotics based on cultures. > Reasonable to continue this regimen given history of MRSA bacteremia and immunocompromised state. - Tylenol as needed for fever/pain. - Continue doxycycline 100 mg BID chronic MRSA suppression. (2) UTI (urinary tract infection): Plan: As noted above (3) Coronary artery disease: Plan: Elevated troponin/CAD/hypertension/HFpEF/atrial fibrillation: - Troponin slightly elevated on arrival at 65.3. Repeat troponin was 137.7, with additional repeat 252.0. Repeat scheduled for 2100. Continue to trend until peak. > Clinically, patient denies chest pressure, pain, shortness of breath, or anxiety. Suspect these troponin elevations are secondary to demand ischemia in setting of sepsis. - Initial ECG revealed sinus tachycardia, no acute ST elevations. Repeat ECG revealed NSR. Continue aspirin 81 mg daily Continue Lasix 20 mg daily Continue losartan 12.5 mg daily Continue metoprolol 12.5 mg twice daily Continue pravastatin 40 mg at bedtime (4) Chronic wound: Plan: Chronic venous stasis in lower extremities bilaterally with multiple wounds - Wound care consulted (5) Rheumatoid arthritis: Plan: Hold immunosuppressive Rinvok in setting of acute infection History of Present Illness Chief Complaint: Urosepsis Primary Care Provider: Danny Soliman DO Mr. Palacio is a pleasant 78-year-old male with PMH including MRSA bacteremia, gram-negative bacteremia, right lower extremity cellulitis, JEFFERY superimposed on CKD, left lower extremity venous ulcer, idiopathic polyneuropathy, left foot pressure ulcer stage III, NSTEMI, acute on chronic HFpEF, metabolic encephalopathy, immunosuppressive treatment for rheumatoid arthritis, and adjustment disorder with mixed anxiety and depressed mood. Vitals on admission are significant for tachycardia in the 90s, hypotension 90s/50s, and fever of 39.4 C. Labs on admission are significant for lactate of 2.1, troponin of 65.3 --> 137.7 (continuing to trend), and BUN of 48. Procal WNL at 0.41, WBC WNL at 6.45, and Cr at baseline at 1.25. CT A/P on admission reveals no acute process; bilateral nephrolithiasis, no ureteral calculi, no hydronephrosis, no bowel ob struction. At the time my exam, the patient was lying in bed, tachypneic, and appeared acutely ill. He reports that he feels weak and tired, but denies focal complaints or pain. He presented from [facility] for urinary symptoms including dysuria and increased frequency. No previous UTIs to his knowledge. He notes that yesterday he felt more tired than usual, but no focal complaints. Overnight, patient began experiencing chills and night sweats. He typically uses a bedside urinal overnight, and notes that he was using this more frequently last night. He also experienced multiple episodes of vomiting, and some loose stools last night. He felt even worse this morning, which is why he presented to the ED. He notes that he "just feels sick" right now and "feels outside of my own body." Patient denies any sick contacts. Of note, he has wounds on his feet that are being seen by the wound center. He is on chronic doxycycline for MRSA suppression. Patient reports that he did not taking his AM medications prior to arrival; no recent change in medications. He does not use supplemental oxygen at baseline. No CPAP at night. We discussed code status, he wishes to be a Full Code. ROS: Patient endorses chills, night sweats, burning with urination, increased urinary frequency, dizziness, headache, multiple episodes of vomiting last night. Patient denies lightheadedness, chest pain, pleuritic CP, SOB, cough, abdominal pain, saddle anesthesia, or numbness or tingling down the legs. Allergies Allergy/AdvReac Type Severity Reaction Status Date / Time cat dander Allergy Severe CAT Verified 01/11/24 07:51 HAIR---Swelling of Lip/Tongue/Throat Home Medications Medication Instructions Recorded Confirmed Type ascorbic acid (vitamin C) 500 mg 1,000 mg PO QAM 08/07/22 01/21/24 History capsule aspirin 81 mg tablet,delayed 81 mg PO QAM 08/07/22 01/21/24 History release (Adult Low Dose Aspirin) coenzyme Q10 100 mg capsule 100 mg PO UD 08/07/22 01/21/24 History lactobacillus combination no.9 4 6,000 mmu cells PO QAM use with 08/07/22 01/21/24 History billion cell capsule (Adult 50 antibiotics Plus Probiotic) fqucerxk-bzezdtv-whjy-lutein tablet 1 tab PO QAM 08/07/22 01/21/24 History cyanocobalamin (vitamin B-12) 500 1,000 mcg (2 x 500 mcg) PO QAM #30 01/18/23 01/21/24 Rx mcg tablet tabs hydroxyzine HCl 10 mg tablet 10 mg PO HS PRN anxiety or 01/18/23 01/21/24 Rx insomnia #14 tabs thiamine HCl (vitamin B1) 100 mg 100 mg PO UD 02/05/23 01/21/24 History tablet melatonin 5 mg capsule 3 mg PO HS Sleep 02/16/23 01/21/24 History latanoprost 0.005 % eye drops 1 drp ophthalmic (eye) UD 08/21/23 01/21/24 History gabapentin 400 mg capsule 400 mg PO TID 30 days #90 caps 09/03/23 01/21/24 Rx olmesartan 5 mg tablet 5 mg PO DAILY 90 days #90 tabs 09/03/23 01/21/24 Rx upadacitinib 15 mg tablet,extended 15 mg PO DAILY 09/23/23 01/21/24 History release 24 hr (Rinvoq) metoprolol tartrate 25 mg tablet 12.5 mg (1/2 x 25 mg) PO BID 30 09/24/23 01/21/24 Rx days #30 tabs duloxetine 60 mg capsule,delayed 60 mg PO QAM #90 caps 10/29/23 01/21/24 Rx release ranolazine 500 mg tablet,extended 500 mg PO BID 11/06/23 01/21/24 History release,12 hr rivaroxaban 20 mg tablet (Xarelto) 20 mg PO DAILY 11/19/23 01/21/24 History diclofenac sodium 1 % topical gel 2 g topical UD PRN Pain 12/15/23 01/21/24 History (Voltaren Arthritis Pain) sennosides 8.6 mg tablet 8.6 mg PO HS 12/15/23 01/21/24 History furosemide 20 mg tablet 20 mg PO DAILY edema or weight gain 12/22/23 01/21/24 History acetaminophen 325 mg tablet 975 mg PO Q8H PRN mild pain,fever, 01/21/24 01/21/24 History or headache amiodarone 200 mg tablet 200 mg PO UD 01/21/24 01/21/24 History cholecalciferol (vitamin D3) 10 20 mcg PO DAILY 01/21/24 01/21/24 History mcg (400 unit) tablet docusate sodium 100 mg capsule 100 mg PO BID 01/21/24 01/21/24 History doxycycline monohydrate 100 mg 100 mg PO BID 01/21/24 01/21/24 History tablet esomeprazole magnesium 40 mg 40 mg PO UD 01/21/24 01/21/24 History capsule,delayed release (Nexium) folic acid 1 mg tablet 1 mg PO DAILY 01/21/24 01/21/24 History isosorbide mononitrate 60 mg 60 mg PO UD 01/21/24 01/21/24 History tablet,extended release 24 hr mirtazapine 30 mg tablet 30 mg PO HS 01/21/24 01/21/24 History nitroglycerin 0.4 mg sublingual 0.4 mg sublingual DIRECTED PRN 01/21/24 01/21/24 History tablet chest pin omega-3 fatty acids-vitamin E 1 cap PO DAILY 01/21/24 01/21/24 History 1,000 mg capsule omeprazole 20 mg capsule,delayed 20 mg PO DAILY 01/21/24 01/21/24 History release oxycodone 5 mg tablet 10 mg PO UD PRN Pain 01/21/24 01/21/24 History potassium chloride 20 mEq 10 meq PO BID PRN Other 01/21/24 01/21/24 History tablet,extended release pravastatin 40 mg tablet 40 mg PO HS 01/21/24 01/21/24 History travoprost 0.004 % eye drops 1 drp ophthalmic (eye) PM 01/21/24 01/21/24 History vitamin E 1 cap PO DAILY 01/21/24 01/21/24 History Past Med/Surg History Problem List (Updated 01/21/24 @ 18:39 by Annia Fields PA-C) Chronic wound Acute UTI (Acute) Tachycardia (Acute) Elevated lactic acid level (Acute) Fever (Acute) Sepsis (Acute) UTI (urinary tract infection) Sepsis secondary to UTI Lymphangitis of lower extremity Hypomagnesemia (Acute) Fever (Acute) Open wound of left upper arm Open wound of left arm with tendon injury Gram-negative bacteremia Cellulitis of right lower extremity (Acute) Sepsis due to skin infection Generalized weakness (Acute) Elevated procalcitonin (Acute) Acute kidney injury superimposed on chronic kidney disease (Acute) Sepsis (Acute) Skin tear of right upper extremity (Acute) Open wound of left foot (Acute) Open wound of right foot (Acute) Skin tear of right hand without complication (Acute) Venous ulcer of left leg (Acute) Traumatic open wound of right lower leg (Acute) Elevated LFTs MRSA bacteremia Dislocation, hip closed (Acute) Dislocation, hip, posterior Rotator cuff arthropathy of both shoulders Abrasion of right knee (Acute) Pain of right hip Prophylactic antibiotic History of sepsis Left shoulder pain Acquired foot deformity (Chronic) Traumatic wound (Acute) Pressure ulcer of left foot, stage 3 (Acute) Abnormal ankle brachial index (Acute) Right knee pain Cellulitis of knee, right (Acute) Non-ST elevation AR (NSTEMI) (Acute) Leukocytosis (Acute) Sepsis (Acute) Myoclonus Cervical radiculopathy Neuropathy Weakness On amiodarone therapy Weakness of right hip DVT prophylaxis Constipation Acute on chronic diastolic congestive heart failure Sepsis following procedure Wheezing Rhabdomyolysis MRSA infection History of CHF (congestive heart failure) Visual disturbance Hyponatremia Hypotension Acute metabolic encephalopathy Severe sepsis Abdominal wall abscess (Acute) HFrEF (heart failure with reduced ejection fraction) EF 40% Mar 2022, improved 55-60% August 2022 Lumbar stenosis Osteoarthritis of right knee Anxiety and depression Hypertension Anemia (Acute) Coronary artery disease Pre-operative cardiovascular examination, myocardial ischemia Atherogenic dyslipidemia Fall Lumbar radiculopathy Low back pain Lower extremity weakness Degenerative spondylolisthesis Parainfluenza virus bronchitis Chronic low back pain Scoliosis of lumbar region due to degenerative disease of spine in adult Dislocation of hip, right, closed (Acute) Septic joint of right knee joint COVID-19 (Acute) Incisional hernia Incarcerated intra-abdominal hernia (Acute) Abdominal pain (Acute) Adjustment disorder with mixed anxiety and depressed mood Sepsis (Acute) Elevated lactic acid level (Acute) Medical History Venous ulcer of right leg Venous stasis ulcers of both lower extremities Idiopathic polyneuropathy History of immunosuppressive therapy Heart failure with preserved ejection fraction Rheumatoid arthritis GERD (gastroesophageal reflux disease) Atrial fibrillation Sepsis Septicemia due to Streptococcus pneumoniae Respiratory failure with hypoxia Hypomagnesemia Pneumonia Benign essential hypertension Lumbar stenosis Hx of staphylococcal infection 03/2022, w/"bacterial infection" at the same, in the rt. knee, occurrred during atrial fibrillation episode. "when he woke up, he couldn't walk." Atrial fibrillation episode occurred in 03/2022, taken to [facility] in [place], admitted to ICU for 1-2 weeks (was not intubated, but wasn't "awake either"), then to cardiac unit, then to rehab at [facility]; f/u dr. guerra in [place]>will be starting to see a non destructive evaluation manager at [facility] 2nd week of 08/2022 Myocardial Infarction "a silent one, 2019" Sleep apnea no device Surgical History Hx of Achilles tendon repair rt. Hx of knee surgery rt. patellar tendon repair Hx of rotator cuff surgery bilateral Hx of total knee replacement lt. Hx of total hip arthroplasty rt. History of colostomy reversal History of bowel resection for diverticulitis; w/colostomy placement for 3-4 months Hx of hernia repair near former colostomy site History of esophagogastroduodenoscopy (EGD) Hx of colonoscopy Last Colonoscopy 08/14/22, repeat 3 years in 2025 Hx of bilateral cataract extraction History of heart artery stent ~3 years ago, x2 stents, done in [place]; f/u dr geurra, [place]>will be seeing new cardio at [place] 2nd week of August 2022. History of cardiac cath ~3 years ago, SOB and "felt like throat was constricting", had "silent heart attack", x2 stents, done in [place] Family History Grandmother (Maternal) Diabetes Daughter Diabetes Father Suicide Hypertension Denies family history of Ovarian cancer Prostate cancer Myocardial infarction Breast cancer Lung cancer Colorectal cancer Stroke Social History Smoking Status: Never smoker Second Hand Exposure: No; Hx Alcohol Use: Yes Alcohol type: wine Alcohol Intake Frequency: 4 or More x per/Week Hx Substance Use: No Preferred Language: French Communication Ability: Effective Visual Impairment: Limited Hearing Ability: Normal Animation Artist Required: No Beliefs That Will Affect Care: None marital status: Single Current Living Situation: Alone Current Living Situation Comment: Alone at Independent Living at [facility] current occupational status: retired How many Children do You have: 2 Other Information That Helps Us Care for You: No Feels Safe at Home: Yes Safety Concerns: Feels Safe At This Time Childhood Exposure to Second-Hand Smoke: Yes caffeine: Yes Dental Care, Regularly: Yes Physical Activity Frequency: Does not Exercise Seatbelt Use: always Sunscreen Use: Yes Assistive Devices: Glasses and Wheelchair Physical Exam Physical Exam: General: Mild acute distress, nondiaphoretic, well-developed, well-nourished. HEENT: No acute trauma, normocephalic atraumatic, mucous membranes moist, no nasal congestion. No throat erythema or exudate. Skin: The skin was without rashes, erythema, edema, or bruising. Cardiac: Regular rate and rhythm without murmurs gallops or rubs. Pulm: Clear to auscultation bilaterally without wheezes, rales or rhonchi. No respiratory distress. 99% on room air. Abdominal: Soft, nontender, nondistended. Bowel sounds present. Neuro: A&O x3. No focal neurological deficits. Results & Data Results & Data Vital Signs (Past 12 Hours) Vital Signs Temp Pulse Pulse Resp BP BP Pulse Ox 01/21/24 09:07 93 H 20 95/55 L 94 01/21/24 08:49 89 22 95/59 L 94 01/21/24 07:49 99 H 26 H 113/69 93 01/21/24 07:41 26 H 01/21/24 07:00 93 01/21/24 07:00 28 H 92 01/21/24 07:00 39.4 C H 94 H 28 H 141/87 H 94 01/21/24 06:57 112 H O2 Del Method 01/21/24 09:07 Room Air 01/21/24 08:49 Room Air 01/21/24 07:49 Room Air 01/21/24 07:41 01/21/24 07:00 Room Air 01/21/24 07:00 Room Air 01/21/24 07:00 Room Air 01/21/24 06:57 Code Status & VTE Plan VTE Prophylaxis Plan VTE Prophylaxis will be ordered: Yes Supervising Physician Co-Signing Physician Notes Patient was seen and examined independently I discussed the case with Annia HORN I reviewed pertinent past medical social family history and also the plan of care and agree with the plan of care. 78-year-old male history of chronic venous stasis and previous lower extremity cellulitis presents in septic shock present on admission from urinary tract infection. Concern also could be secondary source from cellulitis from chronic venous stasis of his lower extremities. History of MRSA in the past. Is immunosuppressed. Was volume resuscitated remains hypotensive she had on vancomycin and cefepime Elevated troponin likely demand ischemia will trend Physical exam ready complexion appears in mild distress blood pressure 100s over 60s Cardiac exam is regular without murmur lungs are clear with diminished at the bases abdomen normal active bowel sounds protuberant diffusely uncomfortable Extremities with chronic venous stasis changes multiple areas of bruising and open areas. Treat sepsis with volume resuscitation additional bolus given continue antibiotics as above. Wound culture consult for wound care of lower extremities and follow cultures Any exceptions will be noted below PG Care Time/CCT Total # of Minutes Spent Total Time Spent with Patient: Total time spent is greater than 50% in coordination of care (as documented) at patient's floor/unit and/or counseling patient: Coding Level of Care Code 65150 INT INP/OBS CARE 3/75MIN Diagnoses Severe sepsis A41.9; R65.20 UTI (urinary tract infection) N39.0 Coronary artery disease I25.10 Chronic wound T14.8XXA Rheumatoid arthritis, involving unspecified site, unspecified whether rheumatoid factor present M06.9 Rheumatoid arthritis location: unspecified site Rheumatoid factor presence: unspecified presence (5) Rheumatoid arthritis Rheumatoid arthritis location: unspecified site Rheumatoid factor presence: unspecified presence Qualified Code(s): M06.9 - Rheumatoid arthritis, unspecified
[2024-01-21] MEDS: SODIUM CHLORIDE 0.9% 500 ML IV ONE (10:10)
--- NOTE | 2024-01-21 10:14 | CT Scan Report ---
CT OF THE ABDOMEN AND PELVIS WITHOUT CONTRAST CLINICAL HISTORY: Possible hydronephrosis. UTI. COMPARISON STUDY: CT of the abdomen pelvis December 12, 2023. TECHNIQUE: Axial images of the abdomen and pelvis were obtained without IV contrast. Images were revi ewed in the axial, sagittal, and coronal planes. Automated exposure control was utilized for the iris dy. A dose lowering technique was utilized adhering to the principles of ALARA. FINDINGS: Subpleural opacities within the lower lungs favor atelectasis. Calcified lymph nodes within the lower chest as well as calcified granulomas within lungs indicating a previous granulomas proces s. There are calcified granulomas within the spleen. Small bilateral renal calculi measure up to 5 mm . There are no ureteral calculi. There is no hydronephrosis. Water attenuation bilateral renal lesion s favor cysts. Suspected hyperdense cyst within lower pole of the right kidney. There are no ureteral calculi. There is no hydronephrosis. Images of the pelvis are degraded by streak artifact from a rig ht hip arthroplasty. Status post sigmoid resection without evidence for a bowel obstruction. No bowel wall thickening is identified on unenhanced exam. The appendix is not visualized and may be surgical ly absent. There is no abdominal or pelvic lymphadenopathy. Unenhanced images of the liver, adrenal g lands and pancreas are unremarkable with the exception of a 1.9 cm cystic lesion within the pancreati c body which favors a side branch IPMN. This is unchanged since prior CT. No acute fractures are pres ent within the lumbar spine, pelvis or hips. 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 Stable postoperative findings of the anterior abdominal wall with ventral mesh. IMPRESSION: 1. No acute process within the abdomen or pelvis on unenhanced exam. 2. Bilateral nephrolithiasis. No ureteral calculi. No hydronephrosis. No bowel obstruction. ACT 112: Negative or not required by law. Electronically signed by: Jong Nascimento M.D. 01/21/2024 10:12 AM
[2024-01-21] MEDS: SODIUM CHLORIDE 0.9% 250 ML IV ONE (10:42)
--- NOTE | 2024-01-21 12:15 | Electrocardiogram Report ---
Test Reason : Blood Pressure : */* mmHG Vent. Rate : 112 BPM Atrial Rate : 112 BPM P-R Int : 186 ms QRS Dur : 136 ms QT Int : 346 ms P-R-T Axes : 47 -49 96 degrees QTcB Int : 472 ms Sinus tachycardia Left axis deviation Non-specific intra-ventricular conduction block Minimal voltage criteria for LVH, may be normal variant T wave abnormality, consider lateral ischemia Abnormal ECG When compared with ECG of 12-Dec-2023 13:36, ST elevation now present in Anterior leads T wave amplitude has increased in Inferior leads Inverted T waves have replaced nonspecific T wave abnormality in Lateral leads Confirmed by Christopher Munoz ([id number]) on 01/21/2024 12:15:43 PM Referred By: REFERRED SELF Confirmed By: Christopher Munoz
[2024-01-21] MEDS ORDERED: DICLOFENAC SOD 1% GEL 100 GM TUBE EXT PRN (15:14)
[2024-01-21] MEDS ORDERED: AMIODARONE 200 MG TAB PO SCH (15:14)
[2024-01-21] MEDS ORDERED: LATANOPROST 0.005% OP SOLN 2.5 ML BTL OP SCH (15:14)
[2024-01-21 20:06] LABS: A calco-baum cmplx NotReported Not Detected (NotDetected); Bact fragilis Not Reported Not Detected (NotDetected); Blood Culture Id Panel See PCR Comment (NotDetected); C auris Not Reported Not Detected (NotDetected); CTX-M Resistant Gene Not Detected (NotDetected); Calbicans Not Reported Not Detected (NotDetected); Candida glabrata Not Reported Not Detected (NotDetected); Candida krusei Not Reported Not Detected (NotDetected); Cneoformans/gatti Not Reported Not Detected (NotDetected); Cparapsilosis Not Reported Not Detected (NotDetected); E cloacae compx Not Reported Not Detected (NotDetected); Efaecalis Not Reported Not Detected (NotDetected); Efaecium Not Reported Not Detected (NotDetected); Enterobacterales DETECTED (NotDetected); Enterobacterales Not Reported DETECTED (NotDetected); Escherichia coli Not Reported Not Detected (NotDetected); H influenzae Not Reported Not Detected (NotDetected); IMP Resistant Gene Not Detected (NotDetected); K aerogenes Not Reported Not Detected (NotDetected); KPC Resistant Gene Not Detected (NotDetected); Koxytoca Not Reported Not Detected (NotDetected); Kpneumoniae grp Not Reported DETECTED (NotDetected); Lmonocyt Not Reported Not Detected (NotDetected); N meningitidis Not Reported Not Detected (NotDetected); NDM Resistant Gene Not Detected (NotDetected); OXA 48 Like Resistant Gene Not Detected (NotDetected); P aeruginosa Not Reported Not Detected (NotDetected); Proteus spp Not Reported Not Detected (NotDetected); Salmonella spp Not Reported Not Detected (NotDetected); Staph lugdunensis Not Reported Not Detected (NotDetected); Staph spp. Not Reported Not Detected (NotDetected); Staphaureus Not Reported Not Detected (NotDetected); Staphepi Not Reported Not Detected (NotDetected); Stenmaltophilia Not Reported Not Detected (NotDetected); Strep agal(GrpB) Not Reported Not Detected (NotDetected); Strep pneum Not Reported Not Detected (NotDetected); Strep pyog (GrpA) Not Reported Not Detected (NotDetected); Strep spp Not Reported Not Detected (NotDetected); VIM Resistant Gene Not Detected (NotDetected); mcr-1 Colistin Resistant Gene Not Detected (NotDetected)
[2024-01-21] MEDS: DOXYCYCLINE HYCLATE 100 MG CAP PO SCH (20:44)
[2024-01-21] MEDS: RIVAROXABAN 20 MG TAB PO SCH (20:45)
[2024-01-21] MEDS: POTASSIUM CHLORIDE 10 MEQ TABCR PO SCH (20:46)
[2024-01-21] MEDS: PRAVASTATIN SOD 40 MG TAB PO SCH (20:46)
[2024-01-21] MEDS: ASPIRIN 81 MG ECTAB PO SCH (20:46)
[2024-01-21] MEDS: RANOLAZINE 500 MG ER TAB PO SCH (20:46)
[2024-01-21] MEDS: PANTOprazole 40 MG TAB PO SCH (20:47)
[2024-01-21] MEDS: MIRTAZAPINE TAB 15 MG TAB PO SCH (20:47)
[2024-01-21] MEDS: hydrOXYzine HCl 10 MG TAB PO PRN (20:47)
[2024-01-21] MEDS: GABAPENTIN 400 MG CAP PO SCH (20:48)
[2024-01-21] MEDS: METOPROLOL TARTRATE 25 MG TAB PO SCH (20:48)
[2024-01-21] MEDS: TRAVOPROST Z 0.004% OPH SOLN 2.5 ML BTL OPB SCH (20:49)
[2024-01-21] MEDS: CEFEPIME 2,000 MG in SYRINGE 0 ML IV SCH (20:50)
[2024-01-21 21:00] LABS: Klebsiella pneumoniae group DETECTED (NotDetected)
[2024-01-21] MEDS ORDERED: TRAVOPROST Z 0.004% OPH SOLN 2.5 ML BTL OP SCH (21:00)
[2024-01-21] MEDS: oxyCODONE HCL IR 5 MG TAB (IMMEDIATE RELEASE) PO PRN (21:06)
[2024-01-21] MEDS: ACETAMINOPHEN 325 MG TAB PO PRN (21:06)
[2024-01-22] MEDS: VANCOMYCIN HCL 1,500 MG in SODIUM CHLORIDE 0.9% 500 ML IV SCH (06:31)
[2024-01-22 07:51] LABS: Hematocrit (blood only) 41.2 % (42.0-52.0); Hemoglobin 13.5 g/dl (14.0-18.0); Mean Corpuscular Hemoglobin 33.9 pg (25.0-34.0); Mean Corpuscular Hgb Conc 32.8 g/dL (32.0-36.0); Mean Corpuscular Volume 103.5 fL (80.0-100.0); Mean Platelet Volume 9.9 fL (9.4-12.4); Platelet Count 136 K/uL (130-400); RDW Coefficient of Variation 15.8 % (11.5-14.5); RDW Standard Deviation 60.9 fL (36.4-46.3); Red Blood Count 3.98 M/uL (4.70-6.10); White Blood Count 14.77 K/ul (4.8-10.8)
[2024-01-22 08:10] LABS: BUN Creatinine Ratio 33.3 (10-20); Calcium 8.5 mg/dl (8.6-10.3); Creatinine Clr Calc Pharmacy 72.5 ml/min; Est GFR (African American) 77.3 ml/min; Est GFR (Non-African American) 66.7 ml/min; Potassium 4.7 mmol/L (3.5-5.1)
[2024-01-22] MEDS ORDERED: ISOSORBIDE MONO EXTENDED REL 60 MG TABCR PO SCH (09:00)
[2024-01-22] MEDS ORDERED: NON-FORMULARY MEDICATION (Omeprazole 20 mg Capsule,Delayed Release(Dr/Ec)) PO SCH (09:00)
[2024-01-22] MEDS: DULoxetine HCL 60 MG CAP PO SCH (09:44)
[2024-01-22] MEDS: LOSARTAN POTASSIUM 25 MG TAB PO SCH (09:44)
[2024-01-22] MEDS: FOLIC ACID 1 MG TAB PO SCH (09:44)
[2024-01-22] MEDS: CHOLECALCIFEROL 10 MCG (400 UNITS) TAB PO SCH (09:44)
[2024-01-22] MEDS: FUROSEMIDE 20 MG TAB PO SCH (09:44)
[2024-01-22] MEDS: THIAMINE HCL 100 MG TAB PO SCH (09:44)
[2024-01-22] MEDS: CYANOCOBALAMIN (B-12) 500 MCG TABLET PO SCH (09:44)
[2024-01-22] MEDS: cefTRIAXone SODIUM 2,000 MG/50 ML BAG IV SCH (11:28)
--- NOTE | 2024-01-22 13:07 | Hospitalist Progress Note ---
Date of Service January 22, 2024 Assessment & Plan (1) Severe sepsis: Plan: Presented with Severe sepsis without septic shock, secondary to suspected urinary source. Immunocompromised patient on Rinvok for RA. - Patient did become hypotensive upon arrival to ED. Was given 2750 cc of IVF and blood pressure seem to respond appropriately. - CXR negative for pneumonia or acute heart failure exacerbation. - CT A/P revealed bilateral nephrolithiasis, no hydronephrosis. - Lactate elevated at 2.1 on admission, consistent with sepsis. - UA positive on arrival - Urine culture - prelim positive for gram negative bacilli. - Blood culture - prelim gram negative bacteremia. - Antibiotic switched to Ceftriaxone 01/21 based on culture results. Continue ceftriaxone daily. - Tylenol as needed for fever/pain. - Continue doxycycline 100 mg BID chronic MRSA suppression. (2) UTI (urinary tract infection): Plan: As noted above (3) Coronary artery disease: Plan: Elevated troponin/CAD/hypertension/HFpEF/atrial fibrillation: - Troponin slightly elevated on arrival at 65.3. Troponin peaked at 252.0, then downtrended. > Clinically, patient denies chest pressure, pain, shortness of breath, or anxiety. Suspect these troponin elevations are secondary - Initial ECG revealed sinus tachycardia, no acute ST elevations. Repeat ECG revealed NSR. Continue aspirin 81 mg daily Continue Lasix 20 mg daily Continue losartan 12.5 mg daily Continue metoprolol 12.5 mg twice daily Continue pravastatin 40 mg at bedtime (4) Chronic wound: Plan: Chronic venous stasis in lower extremities bilaterally with multiple wounds - Wound care consulted (5) Rheumatoid arthritis: Plan: Hold immunosuppressive Rinvok in setting of acute infection Plan Updated daughter via phone call Discontinued vancomycin and cefepime Started ceftriaxone Ordered melatonin VTE PPx: CODE STATUS: Full code Admission and Anticipated Discharge Date Admission Date: January 21, 2024 Subjective Patient seen and evaluated at bedside. He reports that he feels very tired today as he did not sleep well last night. His blood pressure has improved since yesterday, he has been afebrile today. We discussed the results of his urine and blood cultures showing gram-negative bacteria, and I explained why his antibiotics were changed. Wound care nurse plans to see the patient this afternoon. No additional complaints or concerns at this time. Physical Exam Physical Exam: General: Mild acute distress, nondiaphoretic, well-developed, well-nourished. HEENT: No acute trauma, normocephalic atraumatic, mucous membranes moist, no nasal congestion. No throat erythema or exudate. Skin: Dependent rubor on lower extremities bilaterally. Multiple wounds on lower extremities bilaterally. Feet are dusky/cool to touch bilaterally. Cardiac: Regular rate and rhythm without murmurs gallops or rubs. Pulm: Clear to auscultation bilaterally without wheezes, rales or rhonchi. No respiratory distress. 98% on room air. Abdominal: Soft, nontender, nondistended. Bowel sounds present. Neuro: A&O x3. No focal neurological deficits. Results & Data Results & Data Vital Signs (Past 12 Hours) Vital Signs Temp Pulse Pulse Resp BP Pulse Ox O2 Del Method 01/22/24 10:48 37.0 C 63 18 131/77 98 Room Air 01/22/24 08:00 69 01/22/24 07:52 36.5 C 79 18 149/80 H 95 Room Air 01/22/24 02:54 36.6 C 71 18 135/73 97 Room Air Laboratory Results Reviewed CBC Reviewed BMP Reviewed urine culture Reviewed blood culture PG Care Time/CCT Total # of Minutes Spent Total Time Spent with Patient: Total time spent is greater than 50% in coordination of care (as documented) at patient's floor/unit and/or counseling patient: Coding Level of Care Code 98454 SUB INP/OBS CARE 3/50MIN Diagnoses Severe sepsis A41.9; R65.20 UTI (urinary tract infection) N39.0 Coronary artery disease I25.10 Chronic wound T14.8XXA Rheumatoid arthritis, involving unspecified site, unspecified whether rheumatoid factor present M06.9 Rheumatoid arthritis location: unspecified site Rheumatoid factor presence: unspecified presence (5) Rheumatoid arthritis Rheumatoid arthritis location: unspecified site Rheumatoid factor presence: unspecified presence Qualified Code(s): M06.9 - Rheumatoid arthritis, unspecified
--- NOTE | 2024-01-22 15:21 | Electrocardiogram Report ---
Test Reason : Blood Pressure : */* mmHG Vent. Rate : 78 BPM Atrial Rate : 78 BPM P-R Int : 192 ms QRS Dur : 116 ms QT Int : 414 ms P-R-T Axes : 45 -35 44 degrees QTcB Int : 471 ms Normal sinus rhythm Left axis deviation Nonspecific T wave abnormality Prolonged QT Abnormal ECG When compared with ECG of 21-Jan-2024 06:54, Questionable change in QRS duration Confirmed by Christopher Munoz ([id number]) on 01/22/2024 3:20:51 PM Referred By: REFERRED SELF Confirmed By: Christopher Munoz
[2024-01-22] MEDS: MELATONIN 3 MG TAB PO PRN (21:47)
[2024-01-23 07:33] LABS: Hematocrit (blood only) 41.3 % (42.0-52.0); Hemoglobin 13.7 g/dl (14.0-18.0); Mean Corpuscular Hemoglobin 33.9 pg (25.0-34.0); Mean Corpuscular Hgb Conc 33.2 g/dL (32.0-36.0); Mean Corpuscular Volume 102.2 fL (80.0-100.0); Mean Platelet Volume 10.1 fL (9.4-12.4); Platelet Count 131 K/uL (130-400); RDW Coefficient of Variation 15.2 % (11.5-14.5); RDW Standard Deviation 57.3 fL (36.4-46.3); Red Blood Count 4.04 M/uL (4.70-6.10)
[2024-01-23 07:58] LABS: BUN Creatinine Ratio 33.3 (10-20); Calcium 8.8 mg/dl (8.6-10.3); Creatinine Clr Calc Pharmacy 70.8 ml/min; Est GFR (African American) 72.3 ml/min; Est GFR (Non-African American) 62.4 ml/min; Potassium 4.8 mmol/L (3.5-5.1)
[2024-01-23 08:07] VITALS: RESP 18
[2024-01-23 11:58] VITALS: PULSE 60; TEMP 99; O2SAT 95
[2024-01-23 15:04] VITALS: BP 160/90
--- NOTE | 2024-01-23 15:46 | Discharge Summary ---
Discharge Summary Date of Service January 23, 2024 Principal Dx & Hospital Course #1 = Principal Diagnosis (1) Severe sepsis: Presented with Severe sepsis without septic shock, secondary to suspected urinary source. Immunocompromised patient on Rinvok for RA. - Patient did become hypotensive upon arrival to ED. Was given 2750 cc of IVF and blood pressure seem to respond appropriately. - CXR negative for pneumonia or acute heart failure exacerbation. - CT A/P revealed bilateral nephrolithiasis, no hydronephrosis. - Lactate elevated at 2.1 on admission, consistent with sepsis. - UA positive on arrival - Urine culture - Klebsiella pneumoniae - Blood culture - Klebsiella pneumoniae - Continue doxycycline 100 mg BID chronic MRSA suppression. - Was treated with IV antibiotics while hospitalized. Discharged on Ceftin 500 mg BID for 14 day total course. - Follow-up with PCP. (2) UTI (urinary tract infection): As noted above (3) Coronary artery disease: Elevated troponin/CAD/hypertension/HFpEF/atrial fibrillation: - Troponin slightly elevated on arrival at 65.3. Troponin peaked at 252.0, then downtrended. > Clinically, patient denies chest pressure, pain, shortness of breath, or anxiety. Suspect these troponin elevations are secondary to demand ischemia. - Initial ECG revealed sinus tachycardia, no acute ST elevations. Repeat ECG revealed NSR. Continue aspirin 81 mg daily Continue Lasix 20 mg daily Continue losartan 12.5 mg daily Continue metoprolol 12.5 mg twice daily Continue pravastatin 40 mg at bedtime (4) Chronic wound: Chronic venous stasis in lower extremities bilaterally with multiple wounds - Wound care consulted: To left thighcleaned with saline, cover with Optifoam, change every 3 days and as needed. To right and left feet and right kneecleaned with saline, cover with Aquacel Ag and Optifoam, change every 3 days and as needed. - Follow-up with wound clinic. (5) Rheumatoid arthritis: Hold immunosuppressive Rinvoq in setting of acute infection Resume Rinvoq after completion of Ceftin course Plan CODE STATUS: Full code Notes For Next Care Provider Patient presented with severe sepsis secondary to UTI. Urine culture and blood cultures revealed Klebsiella pneumonia. He was discharged on Ceftin 500 mg twice daily for a 14-day total antibiotic course. He was seen by the wound care nurse in the hospitalimportant to follow-up with wound care clinic outpatient. Rinvoq held in setting of acute infection, plan to resume once finished with course of Ceftin. Of note, patient has reportedly been taking 3000 mg of Tylenol daily x 1 year. Educated patient on reducing his Tylenol consumption. He reports that his PCP is aware of this, however his home Tylenol dosing is documented as PRN, though the patient has been taking it scheduled. Additionally, med rec was out of whack on admission. Recommend reviewing current medications with patient for clarity purposes. Medication Changes From Visit Rinvoq held in setting of acute infection, plan to resume once finished with course of Ceftin. Admission HPI Per Admitting Provider Mr. Palacio is a pleasant 78-year-old male with PMH including MRSA bacteremia, gram-negative bacteremia, right lower extremity cellulitis, JEFFERY superimposed on CKD, left lower extremity venous ulcer, idiopathic polyneuropathy, left foot pressure ulcer stage III, NSTEMI, acute on chronic HFpEF, metabolic encephalopathy, immunosuppressive treatment for rheumatoid arthritis, and adjustment disorder with mixed anxiety and depressed mood. Vitals on admission are significant for tachycardia in the 90s, hypotension 90s/50s, and fever of 39.4 C. Labs on admission are significant for lactate of 2.1, troponin of 65.3 --> 137.7 (continuing to trend), and BUN of 48. Procal WNL at 0.41, WBC WNL at 6.45, and Cr at baseline at 1.25. CT A/P on admission reveals no acute process; bilateral nephrolithiasis, no ureteral calculi, no hydronephrosis, no bowel obstruction. At the time my exam, the patient was lying in bed, tachypneic, and appeared acutely ill. He reports that he feels weak and tired, but denies focal complaints or pain. He presented from [facility] for urinary symptoms including dysuria and increased frequency. No previous UTIs to his knowledge. He notes that yesterday he felt more tired than usual, but no focal complaints. Overnight, patient began experiencing chills and night sweats. He typically uses a bedside urinal overnight, and notes that he was using this more frequently last night. He also experienced multiple episodes of vomiting, and some loose stools last night. He felt even worse this morning, which is why he presented to the ED. He notes that he "just feels sick" right now and "feels outside of my own body." Patient denies any sick contacts. Of note, he has wounds on his feet that are being seen by the wound center. He is on chronic doxycycline for MRSA suppression. Patient reports that he did not taking his AM medications prior to arrival; no recent change in medications. He does not use supplemental oxygen at baseline. No CPAP at night. We discussed code status, he wishes to be a Full Code. ROS: Patient endorses chills, night sweats, burning with urination, increased urinary frequency, dizziness, headache, multiple episodes of vomiting last night. Patient denies lightheadedness, chest pain, pleuritic CP, SOB, cough, abdominal pain, saddle anesthesia, or numbness or tingling down the legs. Admission Exam Per Admitting Provider General: Mild acute distress, nondiaphoretic, well-developed, well-nourished. HEENT: No acute trauma, normocephalic atraumatic, mucous membranes moist, no nasal congestion. No throat erythema or exudate. Cardiac: Regular rate and rhythm without murmurs gallops or rubs. Pulm: Clear to auscultation bilaterally without wheezes, rales or rhonchi. No respiratory distress. 99% on room air. Abdominal: Soft, nontender, nondistended. Bowel sounds present. Neuro: A&O x3. No focal neurological deficits. Discharge Exam General: No acute distress, nondiaphoretic, well-developed, well-nourished. Skin: Dependent rubor on lower extremities bilaterally. Multiple wounds on lower extremities bilaterally. Feet are dusky/cool to touch bilaterally. Cardiac: Regular rate and rhythm without murmurs gallops or rubs. Pulm: Clear to auscultation bilaterally without wheezes, rales or rhonchi. No respiratory distress. 95% on room air. Abdominal: Soft, nontender, nondistended. Bowel sounds present. Neuro: A&O x3. No focal neurological deficits. Discharge Plan Discharge Items Patient Disposition: Home - Self-Care Reason For Visit: SEPSIS Discharge Diagnosis: Sepsis secondary to UTI Condition on Discharge: Fair Activity: Resume your previous activity Non-emergency contact: Primary Care Provider Call non-emergency contact if: you have any medication questions, your symptoms worsen and you have a fever Follow-up/Referrals: Danny Soliman DO [Primary Care Provider] - Diet: Heart Healthy Addtl Attending Provider Instructions: Mr. Palacio, You were admitted to the hospital due to sepsis secondary to urinary tract infection (UTI). You were treated with IV antibiotics while hospitalized, and will be discharged on an oral antibiotic. You were also seen by our wound care nurse and it is important to follow-up with the wound clinic outpatient. Upon discharge from the hospital: * Take Ceftin (oral antibiotic) twice daily x 11 days (for a total of a 14 day course of antibiotics). It is important to complete this course of antibiotics even if you feel better. Not completing the antibiotics can result in the infection not being completely treated, and can make future infections harder to treat. You can begin taking this antibiotic tomorrow, 01/24/24. This prescription has been sent to the [facility] pharmacy on [address] [facility]. * Continue taking your doxycycline as prescribed for chronic MRSA suppression. * Hold your Rinvoq until completed with your course of Ceftin. * Continue your other home medications as prescribed. * Continue wound care as instructed by the wound care nurse. * Follow-up with the wound clinic. This is important so that your wounds do not become infected. * Follow-up with your PCP. You can call their office on Thursday to schedule a hospital follow-up appointment. Please return to the hospital if you experience any of the following: Fever of 100.5 F or higher, fast heartbeat, fast breathing, trouble breathing, severe nausea and vomiting, confusion, disorientation, drowsiness, dizziness, decreased urination, severe pain, chest pain, or passing out. It was a pleasure taking care of you while you were in the hospital, Annia Fields PA-C Pending Studies at Discharge: No Stand-Alone Forms: My [facility] i-nexus, Smoking Cessation Medications and DC Order Prescriptions: New cefuroxime axetil 500 mg tablet 500 mg PO BID 11 Days Qty: 22 0RF Continued gabapentin 400 mg capsule 400 mg PO TID 30 Days Qty: 90 5RF olmesartan 5 mg tablet 5 mg PO DAILY 90 Days Qty: 90 3RF metoprolol tartrate 25 mg tablet 12.5 mg PO BID 30 Days Qty: 30 5RF Rx Instructions: TAKE 1/2 TABLET BY MOUTH TWICE DAILY FOR YOUR HEART AND HIGH BLOOD PRESSURE duloxetine 60 mg capsule,delayed release(DR/EC) 60 mg PO QAM Qty: 90 3RF furosemide 20 mg tablet 20 mg PO DAILY Rx Instructions: States he takes everyday 01/21/24: med list has 20 mg po prn Xarelto 20 mg tablet 20 mg PO DAILY Rx Instructions: must administer with evening meal start 3 days after last eliquis dose. aspirin [Adult Low Dose Aspirin] 81 mg tablet,delayed release (DR/EC) 81 mg PO QAM Hold Instructions: Resume on 02/23/23. until PCP/surgery followup [id number] Tablet 1 tab PO QAM coenzyme Q10 100 mg capsule 100 mg PO UD Rx Instructions: 100 mg po qam 01/20- not on faxed list Adult 50 Plus Probiotic 4 billion cell capsule 6,000 mmu cells PO QAM Rx Instructions: administer with a meal ascorbic acid (vitamin C) 500 mg capsule 1,000 mg PO QAM melatonin 5 mg capsule 3 mg PO HS cyanocobalamin (vitamin B-12) 500 mcg Tablet 1,000 mcg PO QAM Qty: 30 0RF hydroxyzine HCl 10 mg Tablet 10 mg PO HS PRN (Reason: anxiety or insomnia) Qty: 14 0RF thiamine HCl (vitamin B1) 100 mg tablet 100 mg PO UD Rx Instructions: 100 mg po qam 01/20- not on faxed list travoprost 0.004 % Drops 1 drp OPHTHALMIC (EYE) PM nitroglycerin 0.4 mg Tablet, Sublingual 0.4 mg sublingual DIRECTED PRN (Reason: chest pin) omeprazole 20 mg Capsule,Delayed Release(Dr/Ec) 20 mg PO DAILY folic acid 1 mg Tablet 1 mg PO DAILY omega-3 fatty acids-vitamin E 1,000 mg Capsule 1 cap PO DAILY potassium chloride 20 mEq Tablet Extended Release 10 meq PO BID PRN (Reason: Other) vitamin E 1 cap PO DAILY Rx Instructions: strength not listed pravastatin 40 mg tablet 40 mg PO HS Rx Instructions: TAKE 1 TABLET BY MOUTH ONCE DAILY mirtazapine 30 mg tablet 30 mg PO HS acetaminophen 325 mg Tablet 975 mg PO Q8H PRN (Reason: mild pain,fever, or headache) doxycycline monohydrate 100 mg Tablet 100 mg PO BID docusate sodium 100 mg Capsule 100 mg PO BID esomeprazole magnesium [Nexium] 40 mg capsule,delayed release(DR/EC) 40 mg PO UD Rx Instructions: 40 mg po hs 01/20- not on faxed list oxycodone 5 mg tablet 10 mg PO UD PRN (Reason: Pain) Rx Instructions: 10 mg po hs prn 01/20- not on faxed list cholecalciferol (vitamin D3) 10 mcg (400 unit) Tablet 20 mcg PO DAILY ranolazine 500 mg tablet extended release 12 hr 500 mg PO BID Rx Instructions: TAKE 1 TABLET BY MOUTH TWICE DAILY sennosides 8.6 mg Tablet 8.6 mg PO HS diclofenac sodium [Voltaren Arthritis Pain] 1 % gel 2 g topical UD PRN (Reason: Pain) Rx Instructions: 2 g qid prn 01/20- not on faxed list Held Rinvoq 15 mg tablet extended release 24 hr 15 mg PO DAILY Hold Instructions: Resume on 02/04/24. Rx Instructions: patient states' I restarted it on my own" Discontinued latanoprost 0.005 % drops 1 drp ophthalmic (eye) UD Rx Instructions: 1 drop eye qpm 01/20- not on faxed list amiodarone 200 mg tablet 200 mg PO UD Rx Instructions: 200 mg po daily 01/20- not on faxed list isosorbide mononitrate 60 mg tablet extended release 24 hr 60 mg PO UD Rx Instructions: 60 mg po qam 01/20- not on faxed list Discharge Orders: Discharge Order (Routine); Ordered 01/23/24 Ordered By: Annia Fields Admission Data Admit Date/Time: 01/21/24 10:03 Attending Provider: Danny Kim Admit Provider: Danny Kim Primary Care Provider: Danny Soliman Other Providers: Rakesh Herrera; [facility] Other Interventions: Discharge Summary Assessment (RN) Last Done: 01/23/24 15:03 Hospital Stay Data Consultations 01/21/24 08:52 ED Decision to Admit Stat Diagnostic Imagining Performed Chest X-Ray 01/21/24 07:04 XR chest 1V portable CLINICAL HISTORY: Sepsis. COMPARISON STUDY: Chest radiograph December 14, 2023. FINDINGS: Low lung volumes are unchanged. Cardiomegaly is unchanged. There is no evidence for pulmonary edema. Linear left basilar densities favor atelectasis. There is no evidence for pulmonary edema. No consolidation to suggest pneumonia. IMPRESSION: 1. No acute cardiopulmonary findings. 2. Left basilar densities suggestive of atelectasis. No consolidation to suggest pneumonia. ACT 112: Negative or not required by law. Electronically signed by: Jong Nascimento M.D. 01/21/2024 7:37 AM Abdomen/Pelvis CT 01/21/24 08:57 CT OF THE ABDOMEN AND PELVIS WITHOUT CONTRAST CLINICAL HISTORY: Possible hydronephrosis. UTI. COMPARISON STUDY: CT of the abdomen pelvis December 12, 2023. TECHNIQUE: Axial images of the abdomen and pelvis were obtained without IV contrast. Images were reviewed in the axial, sagittal, and coronal planes. Automated exposure control was utilized for the study. A dose lowering technique was utilized adhering to the principles of ALARA. FINDINGS: Subpleural opacities within the lower lungs favor atelectasis. Calcified lymph nodes within the lower chest as well as calcified granulomas within lungs indicating a previous granulomas process. There are calcified granulomas within the spleen. Small bilateral renal calculi measure up to 5 mm. There are no ureteral calculi. There is no hydronephrosis. Water attenuation bilateral renal lesions favor cysts. Suspected hyperdense cyst within lower pole of the right kidney. There are no ureteral calculi. There is no hydronephrosis. Images of the pelvis are degraded by streak artifact from a right hip arthroplasty. Status post sigmoid resection without evidence for a bowel obstruction. No bowel wall thickening is identified on unenhanced exam. The appendix is not visualized and may be surgically absent. There is no abdominal or pelvic lymphadenopathy. Unenhanced images of the liver, adrenal glands and pancreas are unremarkable with the exception of a 1.9 cm cystic lesion within t he pancreatic body which favors a side branch IPMN. This is unchanged since prior CT. No acute fractures are present within the lumbar spine, pelvis or hips. 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 Stable postoperative findings of the anterior abdominal wall with ventral mesh. IMPRESSION: 1. No acute process within the abdomen or pelvis on unenhanced exam. 2. Bilateral nephrolithiasis. No ureteral calculi. No hydronephrosis. No bowel obstruction. ACT 112: Negative or not required by law. Electronically signed by: Jong Nascimento M.D. 01/21/2024 10:12 AM Pending Results Patient Have Any Pending Studies at Discharge: No Discharge Instructions Given to Patient (Per Discharging Provider) Mr. Potter, You were admitted to the hospital due to sepsis secondary to urinary tract infection (UTI). You were treated with IV antibiotics while hospitalized, and will be discharged on an oral antibiotic. You were also seen by our wound care nurse and it is important to follow-up with the wound clinic outpatient. Upon discharge from the hospital: * Take Ceftin (oral antibiotic) twice daily x 11 days (for a total of a 14 day course of antibiotics). It is important to complete this course of antibiotics even if you feel better. Not completing the antibiotics can result in the infection not being completely treated, and can make future infections harder to treat. You can begin taking this antibiotic tomorrow, 01/24/24. This prescription has been sent to the [facility] pharmacy on [address]. * Continue taking your doxycycline as prescribed for chronic MRSA suppression. * Hold your Rinvoq until completed with your course of Ceftin. * Continue your other home medications as prescribed. * Continue wound care as instructed by the wound care nurse. * Follow-up with the wound clinic. This is important so that your wounds do not become infected. * Follow-up with your PCP. You can call their office on Thursday to schedule a hospital follow-up appointment. Please return to the hospital if you experience any of the following: Fever of 100.5 F or higher, fast heartbeat, fast breathing, trouble breathing, severe nausea and vomiting, confusion, disorientation, drowsiness, dizziness, decreased urination, severe pain, chest pain, or passing out. It was a pleasure taking care of you while you were in the hospital, Annia Fields PA-C Total Time Total Time Spent Total Time Spent (In Minutes): Greater than 30 minutes spent completing this discharge process including direct patient care, medication reconciliation, documentation, review of labs and images, and coordination of care. Coding Level of Care Code 69296 INP/OBS DISCH >30 MIN Diagnoses Severe sepsis A41.9; R65.20 UTI (urinary tract infection) N39.0 Coronary artery disease I25.10 Chronic wound T14.8XXA Rheumatoid arthritis, involving unspecified site, unspecified whether rheumatoid factor present M06.9 Rheumatoid arthritis location: unspecified site Rheumatoid factor presence: unspecified presence
== END 2024-01-23 17:19 | disposition home or self-care (01) | DRG 872 ==
LOC: ED 06:49 → 2E 10:03

== ENCOUNTER 2024-02-01 14:15 | Inpatient (IN) ==
--- NOTE | 2024-02-01 15:43 | Emergency Department Note ---
Impression & Plan Bilateral cellulitis of lower leg, History of MRSA infection, Elevated troponin ED Provider Note NAME: RAFY CHICAS AGE: 78 SEX: M : 1945 ARRIVES VIA: Ambulance INFORMANT: Patient, prior records ED PROVIDER(S): Narinder Pham MD CHIEF COMPLAINT: Bilateral foot pain, outpatient referral, cellulitis MEDICAL DECISION MAKING: Patient presents due to concern for bilateral lower extremity swelling as well as foot pain superficial wounds and was referred by wound care clinic. IV was established and blood work was obtained. I discussed with the ED pharmacist Padma who did agree with vancomycin and Zosyn given the foot wounds and failed outpatient treatment. Consider calling for a spinal specialist referral through your PCP: Patient was ordered IV morphine. Patient's blood work showed a normal white count hemoglobin of 12.7 and a normal platelet count. The patient's kidney function unremarkable but does have prerenal azotemia. Lactate 1.2 troponin 40.7 procalcitonin is not elevated. Patient's chest x-ray does not show any evidence of pneumonia or pneumothorax. I did speak the on-call hospitalist service the patient was admitted to medicine service. Discussion w/ other healthcare providers: None Prior /Outside records reviewed: I reviewed the discharge summary from January 22 from Annia lagunas. The patient was admitted with severe sepsis without shock secondary to suspected urinary source. Immunocompromised patient on Rinvoq for RA. Urine culture and blood culture positive for Klebsiella pneumonia. Patient was treated with IV antibiotics continued on Doxy for MRSA suppression discharged on Ceftin 500 twice daily for 14 days. Patient also with chronic venous stasis wounds in the bilateral lower extremities. Wound care was consulted at that time I did review a draft wound visit from earlier today for Patricia Horne which showed patient with cellulitis despite being on cefuroxime and Doxy. Differential diagnosis: Cellulitis, abscess, MRSA infection, DVT, necrotizing fasciitis, dermatitis, drug eruption, allergic reaction, as well as other pathologies were considered. Diagnostics, as interpreted by me: ECG: Normal sinus rhythm, rate of 64, normal intervals, left axis deviation, T wave inversion anteriorly. No significant change for comparison January 21, 2024 Cardiac monitoring: An order was placed for continuous cardiac monitoring. The monitor shows a rate of 65 with sinus rhythm. Patient was placed on pulse oximetry Medical decision rules: None Imaging studies: I informally interpreted the patient's chest x-ray does not show obvious pneumonia or pneumothorax with formal report to follow. HPI: Patient presents due to concern for worsening bilateral foot pain and has a referral due to concern for worsening lower extremity cellulitis. The patient did have a recent admission and subsequent discharge here for Klebsiella bacteremia and UTI which was treated with IV antibiotics and subsequently discharged on cefuroxime. The patient is still on Doxy. Patient is currently residing at [facility]. Patient denies any fevers or chills no chest pain shortness of breath no abdominal pain. The patient was seen at wound care today and was referred here due to concerns for outpatient failure of his p.o. antibiotics. Patient states that he has had worsening pain in his bilateral feet primarily over the medial aspect of the bilateral feet. Patient is not taking his Rinvoq for his RA. The patient has been trialing Oxy at home most recently yesterday taking 2 of them but without any relief. No falls or trauma. Patient does primarily use a wheelchair at all times and has not been ambulatory without assistance and about a year and a half. PAST MEDICAL HISTORY: See Below PAST SURGICAL HISTORY: See Below SOCIAL HISTORY: See Below HOME MEDICATIONS: See Below ALLERGIES: See Below VITALS: See Below PHYSICAL EXAMINATION: GENERAL: NAD, non-toxic. EYE EXAM: Normal conjunctiva. PERRL, no anisocoria and EOM's grossly intact w/o pain. OROPHARYNX: Moist mucus membranes, grossly normal dentition. NECK: Trachea midline, no stridor. Supple, no nuchal rigidity, no adenopathy, non-tender. No signs of meningismus. FROM of the neck with good chin to chest and neck extension. LUNGS: Clear to auscultation. Normal chest wall mechanics. HEART: NSR, no MRG. ABDOMEN: Abdomen soft, non-tender, no masses, no rebound or guarding. BACK: No CVA TTP. SKIN: No rashes and no bruising. UPPER EXTREMITIES: Upper extremities are grossly normal. LOWER EXTREMITIES: Bilateral lower extremity redness with associated calor surface wounds noted over the bilateral feet, eschars noted, no active drainage or crepitus. TTP noted over the bilateral medial aspects of the feet. Sensate. No obvious deformities. NEURO EXAM: A&O x3, cranial nerves II-XII grossly intact, normal speech, moves all 4 extremities. Past Med/Surg History Problem List (Updated 02/02/24 @ 23:54 by Narinder Pham MD) Bilateral cellulitis of lower leg (Acute) Peripheral neuropathy Atrial fibrillation Chronic venous stasis History of MRSA infection (Acute) Elevated troponin (Acute) Cellulitis of both feet (Acute) Rheumatoid arthritis Open wound of foot Open wound of right hand (Acute) Open wound of left lower extremity (Acute) Chronic wound Acute UTI (Acute) Tachycardia (Acute) Elevated lactic acid level (Acute) Fever (Acute) Sepsis (Acute) UTI (urinary tract infection) Sepsis secondary to UTI Lymphangitis of lower extremity Hypomagnesemia (Acute) Fever (Acute) Open wound of left upper arm (Acute) Open wound of left arm with tendon injury Gram-negative bacteremia Cellulitis of right lower extremity (Acute) Sepsis due to skin infection Generalized weakness (Acute) Elevated procalcitonin (Acute) Acute kidney injury superimposed on chronic kidney disease (Acute) Sepsis (Acute) Skin tear of right upper extremity (Acute) Open wound of left foot (Acute) Open wound of right foot (Acute) Skin tear of right hand without complication (Acute) Venous ulcer of left leg (Acute) Traumatic open wound of right lower leg (Acute) Elevated LFTs MRSA bacteremia Dislocation, hip closed (Acute) Dislocation, hip, posterior Rotator cuff arthropathy of both shoulders Abrasion of right knee (Acute) Pain of right hip Prophylactic antibiotic History of sepsis Left shoulder pain Acquired foot deformity (Chronic) Traumatic wound (Acute) Pressure ulcer of left foot, stage 3 (Acute) Abnormal ankle brachial index (Acute) Right knee pain Cellulitis of knee, right (Acute) Non-ST elevation PR (NSTEMI) (Acute) Leukocytosis (Acute) Sepsis (Acute) Myoclonus Cervical radiculopathy Neuropathy Weakness On amiodarone therapy Weakness of right hip DVT prophylaxis Constipation Acute on chronic diastolic congestive heart failure Sepsis following procedure Wheezing Rhabdomyolysis MRSA infection History of CHF (congestive heart failure) Visual disturbance Hyponatremia Hypotension Acute metabolic encephalopathy Severe sepsis Abdominal wall abscess (Acute) HFrEF (heart failure with reduced ejection fraction) EF 40% Mar 2022, improved 55-60% August 2022 Lumbar stenosis Osteoarthritis of right knee Anxiety and depression Hypertension Anemia (Acute) Coronary artery disease Pre-operative cardiovascular examination, myocardial ischemia Atherogenic dyslipidemia Fall Lumbar radiculopathy Low back pain Lower extremity weakness Degenerative spondylolisthesis Parainfluenza virus bronchitis Chronic low back pain Scoliosis of lumbar region due to degenerative disease of spine in adult Dislocation of hip, right, closed (Acute) Septic joint of right knee joint COVID-19 (Acute) Incisional hernia Incarcerated intra-abdominal hernia (Acute) Abdominal pain (Acute) Adjustment disorder with mixed anxiety and depressed mood Sepsis (Acute) Elevated lactic acid level (Acute) Medical History Venous ulcer of right leg Venous stasis ulcers of both lower extremities Idiopathic polyneuropathy History of immunosuppressive therapy Heart failure with preserved ejection fraction GERD (gastroesophageal reflux disease) Sepsis Septicemia due to Streptococcus pneumoniae Respiratory failure with hypoxia Hypomagnesemia Pneumonia Benign essential hypertension Lumbar stenosis Hx of staphylococcal infection 03/2022, w/"bacterial infection" at the same, in the rt. knee, occurrred during atrial fibrillation episode. "when he woke up, he couldn't walk." Atrial fibrillation episode occurred in 03/2022, taken to [facility] in [place], admitted to ICU for 1-2 weeks (was not intubated, but wasn't "awake either"), then to cardiac unit, then to rehab at [facility]; f/u dr. guerra in [place]>will be starting to see a manager development at [facility] 2nd week of 08/2022 Myocardial Infarction "a silent one, 2019" Sleep apnea no device Surgical History Hx of Achilles tendon repair rt. Hx of knee surgery rt. patellar tendon repair Hx of rotator cuff surgery bilateral Hx of total knee replacement lt. Hx of total hip arthroplasty rt. History of colostomy reversal History of bowel resection for diverticulitis; w/colostomy placement for 3-4 months Hx of hernia repair near former colostomy site History of esophagogastroduodenoscopy (EGD) Hx of colonoscopy Last Colonoscopy 08/14/22, repeat 3 years in 2025 Hx of bilateral cataract extraction History of heart artery stent ~3 years ago, x2 stents, done in [place]; f/u dr guerra, [place]>will be seeing new cardio at [place] 2nd week of August 2022. History of cardiac cath ~3 years ago, SOB and "felt like throat was constricting", had "silent heart attack", x2 stents, done in [place] Family History Grandmother (Maternal) Diabetes Daughter Diabetes Father Suicide Hypertension Denies family history of Ovarian cancer Prostate cancer Myocardial infarction Breast cancer Lung cancer Colorectal cancer Stroke Social History Smoking Status: Never smoker Second Hand Exposure: No; Hx Alcohol Use: Yes Alcohol type: wine Alcohol Intake Frequency: 4 or More x per/Week Hx Substance Use: No Preferred Language: Bermudian Communication Ability: Effective Visual Impairment: Limited Hearing Ability: Normal White Washer Piler Required: No Beliefs That Will Affect Care: None marital status: Single Current Living Situation: Personal Care Facility Current Living Situation Comment: Alone at Independent Living at [facility] current occupational status: retired How many Children do You have: 2 Feels Safe at Home: Yes Safety Concerns: Feels Safe At This Time Childhood Exposure to Second-Hand Smoke: Yes caffeine: Yes Dental Care, Regularly: Yes Physical Activity Frequency: Does not Exercise Seatbelt Use: always Sunscreen Use: Yes Assistive Devices: Walker and Wheelchair Allergies Allergies Allergy/AdvReac Type Severity Reaction Status Date / Time cat dander Allergy Severe CAT Verified 02/01/24 13:05 HAIR---Swelling of Lip/Tongue/Throat Home Meds Home Medications Medication Instructions Recorded Confirmed ascorbic acid (vitamin C) 500 mg 1,000 mg PO QAM 08/07/22 02/01/24 capsule aspirin 81 mg tablet,delayed 81 mg PO QAM 08/07/22 02/01/24 release (Adult Low Dose Aspirin) coenzyme Q10 100 mg capsule 100 mg PO QAM 08/07/22 02/01/24 lactobacillus combination no.9 4 6,000 mmu cells PO QAM use with 08/07/22 02/01/24 billion cell capsule (Adult 50 antibiotics Plus Probiotic) vnepxipt-vtcbnln-buwk-lutein tablet 1 tab PO QAM 08/07/22 02/01/24 thiamine HCl (vitamin B1) 100 mg 100 mg PO QAM 02/05/23 02/01/24 tablet upadacitinib 15 mg tablet,extended 0 mg PO DAILY 09/23/23 02/01/24 release 24 hr (Rinvoq) ranolazine 500 mg tablet,extended 500 mg PO BID 11/06/23 02/01/24 release,12 hr rivaroxaban 20 mg tablet (Xarelto) 20 mg PO DAILY 11/19/23 02/01/24 diclofenac sodium 1 % topical gel 2 g topical QID PRN Pain 12/15/23 02/01/24 (Voltaren Arthritis Pain) sennosides 8.6 mg tablet 8.6 mg PO HS 12/15/23 02/01/24 cholecalciferol (vitamin D3) 10 20 mcg PO DAILY 01/21/24 02/01/24 mcg (400 unit) tablet esomeprazole magnesium 40 mg 40 mg PO HS 01/21/24 02/01/24 capsule,delayed release (Nexium) folic acid 1 mg tablet 1 mg PO DAILY 01/21/24 02/01/24 mirtazapine 30 mg tablet 30 mg PO HS 01/21/24 02/01/24 nitroglycerin 0.4 mg sublingual 0.4 mg sublingual DIRECTED PRN 01/21/24 02/01/24 tablet chest pin pravastatin 40 mg tablet 40 mg PO HS 01/21/24 02/01/24 travoprost 0.004 % eye drops 1 drp ophthalmic (eye) PM 01/21/24 02/01/24 vitamin E 268 mg (400 unit) capsule 268 mg PO DAILY ##0 01/21/24 02/01/24 acetaminophen 325 mg tablet 975 mg PO Q8H PRN mild pain,fever, 01/26/24 02/01/24 or headache acetaminophen 500 mg tablet 1,000 mg PO TID 01/26/24 02/01/24 (Tylenol Extra Strength) furosemide 20 mg tablet 20 mg PO DAILY PRN edema or weight 01/28/24 02/01/24 gain melatonin 3 mg tablet 3 mg PO HS 02/01/24 02/01/24 omega 0-dxm-qnb-fish oil 900 1 cap PO DAILY 02/01/24 02/01/24 mg-1,400 mg capsule,delayed release oxycodone 10 mg tablet 10 mg PO HS PRN Pain 02/01/24 02/01/24 potassium chloride 10 mEq 10 meq PO BID PRN If taking Lasix 02/01/24 02/01/24 tablet,extended release Previous Rx's Medication Instructions Recorded cyanocobalamin (vitamin B-12) 500 1,000 mcg (2 x 500 mcg) PO QAM #30 01/18/23 mcg tablet tabs hydroxyzine HCl 10 mg tablet 10 mg PO HS PRN anxiety or 01/18/23 insomnia #14 tabs gabapentin 400 mg capsule 400 mg PO TID 30 days #90 caps 09/03/23 olmesartan 5 mg tablet 5 mg PO DAILY 90 days #90 tabs 09/03/23 metoprolol tartrate 25 mg tablet 12.5 mg (1/2 x 25 mg) PO BID 30 09/24/23 days #30 tabs duloxetine 60 mg capsule,delayed 60 mg PO QAM #90 caps 10/29/23 release Results & Data (ED) Vital Signs Vital Signs - 24 hr 02/01/24 14:35 02/01/24 14:55 Temperature 36.9 C Temperature Source Oral Pulse Rate 67 65 Respiratory Rate 20 Respiratory Effort / Characteristics Non-Labored Spontaneous Respiratory Depth Normal Respiratory Pattern Regular Blood Pressure 157/90 H Blood Pressure Mean 112 Pulse Oximetry 95 Oxygen Delivery Method Room Air Sepsis Recent Fever Within 48 Hours No Sepsis New/Unexplained Change in Mental Status No Sepsis Action Taken by Nursing No Action Required Home Medications Current Medication List: was personally reviewed by me Laboratory Data Attestation: I reviewed the patient's lab results. 02/02/24 07:09 02/02/24 07:09 Lab Results 02/01/24 02/01/24 Range/Units 14:44 16:36 WBC 10.54 (4.8-10.8) K/ul RBC 3.79 L (4.70-6.10) M/uL Hgb 12.7 L (14.0-18.0) g/dl Hct 39.0 L (42.0-52.0) % MCV 102.9 H (80.0-100.0) fL MCH 33.5 (25.0-34.0) pg MCHC 32.6 (32.0-36.0) g/dL RDW Std Deviation 56.0 H (36.4-46.3) fL RDW Coeff of Sammie 14.9 H (11.5-14.5) % Plt Count 237 (130-400) K/uL MPV 9.9 (9.4-12.4) fL Immature Gran % (Auto) 1.2 % Neut % (Auto) 81.2 % Lymph % (Auto) 8.3 % [place] % (Auto) 8.1 % Eos % (Auto) 0.9 % Baso % (Auto) 0.3 % Neut # (Auto) 8.56 H (1.40-6.50) K/uL Lymph # (Auto) 0.87 L (1.20-3.40) K/uL [place] # (Auto) 0.85 H (0.11-0.59) K/uL Eos # (Auto) 0.10 (0.00-0.50) K/uL Baso # (Auto) 0.03 (0.00-0.20) K/uL Immature Gran # (Auto) 0.13 (0.01-0.20) K/uL ESR 23 H (0-20) mm/hr Sodium 135 L (136-145) mmol/L Potassium 4.7 (3.5-5.1) mmol/L Chloride 100 (98-107) mmol/L Carbon Dioxide 31 (21-32) mmol/L Anion Gap 4 (3-11) BUN 51 H (6-23) mg/dl Creatinine 1.23 (0.6-1.4) mg/dl Est Cr Clr Drug Dosing 61.1 ml/min Est GFR ( Amer) 63.9 ml/min Est GFR (Non-Af Amer) 55.1 ml/min BUN/Creatinine Ratio 41.5 H (10-20) Glucose 103 H (70-99(Fasting)) mg/dl Lactate 1.2 (0.4-2.0) mmol/L Calcium 9.0 (8.6-10.3) mg/dl Magnesium 2.1 (1.7-2.4) mg/dl Total Bilirubin 0.5 (0.2-1.0) mg/dl Direct Bilirubin 0.1 (0-0.2) mg/dl AST 42 H (13-39) U/L ALT 39 (7-52) U/L Alkaline Phosphatase 74 (34-104) U/L Troponin I High Sens 40.7 H (0-20) pg/ml Total Protein 6.5 (6.0-8.3) gm/dl Albumin 3.7 (3.4-5.0) gm/dl Procalcitonin 0.15 (0-0.5) ng/ml Administered Medications Discontinued Medications Acetaminophen (Acetaminophen 500 Mg Tab) 1,000 mg PO Q8H ELDER Stop: 03/02/24 21:59 Last Admin: 02/02/24 13:58 Dose: 1,000 mg Documented By: Admin: 02/02/24 05:56 Dose: 1,000 mg Documented By: Admin: 02/01/24 21:57 Dose: 1,000 mg Documented By: GINA Aspirin (Aspirin 81 Mg Ectab) 81 mg PO QAM ELDER Stop: 03/03/24 08:59 Last Admin: 02/02/24 08:12 Dose: 81 mg Documented By: CONCEPCION Duloxetine HCl (Duloxetine Hcl 60 Mg Cap) 60 mg PO QAM ELDER Stop: 03/03/24 08:59 Last Admin: 02/02/24 08:11 Dose: 60 mg Documented By: CONCEPCION Folic Acid (Folic Acid 1 Mg Tab) 1 mg PO DAILY ELDER Stop: 03/03/24 08:59 Last Admin: 02/02/24 08:11 Dose: 1 mg Documented By: CONCEPCION Gabapentin (Gabapentin 400 Mg Cap) 400 mg PO TID ELDER Stop: 03/02/24 20:59 Last Admin: 02/02/24 13:58 Dose: 400 mg Documented By: Admin: 02/02/24 08:11 Dose: 400 mg Documented By: Admin: 02/01/24 21:59 Dose: 400 mg Documented By: GINA Sodium Chloride (Nss) 500 mls @ 999 mls/hr IV .Q31M ELDER Stop: 02/01/24 16:30 Last Infusion: 02/01/24 17:20 Dose: Infused Documented By: Admin: 02/01/24 16:28 Dose: 999 mls/hr Documented By: DU Vancomycin HCl 2,750 mg/ (Sodium Chloride) 555 mls @ 200 mls/hr IV NOW ONE Stop: 02/01/24 18:43 Last Infusion: 02/01/24 20:31 Dose: Infused Documented By: Admin: 02/01/24 17:19 Dose: 200 mls/hr Documented By: DU Piperacillin Sod/Tazobactam Sod (Zosyn) 4.5 gm in 100 mls @ 200 mls/hr IV NOW ONE Stop: 02/01/24 16:26 Last Infusion: 02/01/24 17:20 Dose: Infused Documented By: Admin: 02/01/24 16:28 Dose: 200 mls/hr Documented By: DU Piperacillin Sod/Tazobactam Sod (Zosyn) 4.5 gm in 100 mls @ 25 mls/hr IV Q8H ELDER Stop: 02/08/24 21:59 Last Infusion: 02/02/24 10:10 Dose: Infused Documented By: Admin: 02/02/24 05:57 Dose: 25 mls/hr Documented By: Infusion: 02/02/24 02:05 Dose: Infused Documented By: Admin: 02/01/24 22:02 Dose: 25 mls/hr Documented By: GINA Losartan Potassium (Losartan Potassium 25 Mg Tab) 12.5 mg PO DAILY ELDER Stop: 03/03/24 08:59 Last Admin: 02/02/24 08:12 Dose: 12.5 mg Documented By: CONCEPCION Melatonin (Melatonin 3 Mg Tab) 3 mg PO HS ELDER Stop: 03/02/24 20:59 Last Admin: 02/01/24 21:59 Dose: 3 mg Documented By: GINA Metoprolol Tartrate (Metoprolol Tartrate 25 Mg Tab) 12.5 mg PO BID ELDER Stop: 03/02/24 20:59 Last Admin: 02/02/24 08:11 Dose: 12.5 mg Documented By: Admin: 02/01/24 21:59 Dose: 12.5 mg Documented By: GINA Mirtazapine (Mirtazapine Tab 15 Mg Tab) 30 mg PO HS ELDER Stop: 03/02/24 20:59 Last Admin: 02/01/24 22:01 Dose: 30 mg Documented By: GINA Morphine Sulfate (Morphine Sulfate 4 Mg/Ml 1 Ml Carp\\Vial) 4 mg IV NOW STA Stop: 02/01/24 15:59 Last Admin: 02/01/24 16:27 Dose: 4 mg Documented By: DU Oxycodone HCl (Oxycodone Hcl Ir 5 Mg Tab (Immediate Release)) 10 mg PO Q6H PRN PRN Reason: Severe Pain (7,8,9,10) on NRS Stop: 02/15/24 20:07 Last Admin: 02/02/24 14:56 Dose: 10 mg Documented By: Admin: 02/02/24 06:45 Dose: 10 mg Documented By: Admin: 02/01/24 21:57 Dose: 10 mg Documented By: GINA Pantoprazole Sodium (Pantoprazole 40 Mg Tab) 40 mg PO HS ELDER Stop: 03/02/24 20:59 Last Admin: 02/01/24 22:00 Dose: 40 mg Documented By: GINA Ranolazine (Ranolazine 500 Mg Er Tab) 500 mg PO BID ELDER Stop: 03/02/24 20:59 Last Admin: 02/02/24 08:13 Dose: 500 mg Documented By: Admin: 02/01/24 22:02 Dose: 500 mg Documented By: GINA Rivaroxaban (Rivaroxaban 20 Mg Tab) 20 mg PO DAILY ELDER Stop: 03/03/24 08:59 Last Admin: 02/02/24 08:12 Dose: 20 mg Documented By: CONCEPCION Sennosides (Senna 8.6 Mg Tab) 8.6 mg PO HS ELDER Stop: 03/02/24 20:59 Last Admin: 02/01/24 22:01 Dose: 8.6 mg Documented By: GINA Travoprost (Travoprost Z 0.004% Oph Soln 2.5 Ml Btl) 1 drops OP PM ELDER Stop: 03/02/24 20:59 Last Admin: 02/01/24 21:57 Dose: 1 drops Documented By: GINA Imaging Data Radiologist's Impression: Chest X-Ray 02/01/24 15:55 XR chest 1V portable CLINICAL HISTORY: Sepsis. COMPARISON STUDY: Chest radiograph January 21, 2024. FINDINGS: Lung volumes are normal. No consolidation to suggest pneumonia. Linear left basilar densities favor atelectasis or scarring, similar to prior exam. There is no pneumothorax or pleural effusion. Cardiac size is normal. Mediastinal contours are normal. There is no evidence for pulmonary edema. There are severe degenerative changes of both shoulders. IMPRESSION: No acute cardiopulmonary findings. No significant change in appearance of the chest. ACT 112: Negative or not required by law. Electronically signed by: Jong Nascimento M.D. 02/01/2024 4:15 PM Discharge Plan Visit Data Chief Complaint: Swelling/Edema to Extremity ED Provider: Narinder Pham Discharge Problem: Bilateral cellulitis of lower leg, History of MRSA infection, Elevated troponin Patient Disposition: Admitted As Inpatient Discharge Instructions Interventions: ED Discharge Assessment Last Done: 02/01/24 20:09
[2024-02-01] MEDS ORDERED: VANCOMYCIN CONSULT ACTIVE PRN (15:57)
[2024-02-01 16:16] LABS: Basophils # (auto) 0.03 K/uL (0.00-0.20); Basophils % (auto) 0.3 %; Eosinophils % (auto) 0.9 %; Hemoglobin 12.7 g/dl (14.0-18.0); Immature Granulocytes # (auto) 0.13 K/uL (0.01-0.20); Immature Granulocytes % (auto) 1.2 %; Lymphocytes # (auto) 0.87 K/uL (1.20-3.40); Lymphocytes % (auto) 8.3 %; Mean Corpuscular Hemoglobin 33.5 pg (25.0-34.0); Mean Corpuscular Hgb Conc 32.6 g/dL (32.0-36.0); Mean Corpuscular Volume 102.9 fL (80.0-100.0); Mean Platelet Volume 9.9 fL (9.4-12.4); Monocytes # (auto) 0.85 K/uL (0.11-0.59); Monocytes % (auto) 8.1 %; Neutrophils # (auto) 8.56 K/uL (1.40-6.50); Neutrophils % (auto) 81.2 %; Platelet Count 237 K/uL (130-400); RDW Coefficient of Variation 14.9 % (11.5-14.5); Red Blood Count 3.79 M/uL (4.70-6.10); White Blood Count 10.54 K/ul (4.8-10.8)
--- NOTE | 2024-02-01 16:16 | XRay Report ---
XR chest 1V portable CLINICAL HISTORY: Sepsis. COMPARISON STUDY: Chest radiograph January 21, 2024. FINDINGS: Lung volumes are normal. No consolidation to suggest pneumonia. Linear left basilar densiti es favor atelectasis or scarring, similar to prior exam. There is no pneumothorax or pleural effusion . Cardiac size is normal. Mediastinal contours are normal. There is no evidence for pulmonary edema. There are severe degenerative changes of both shoulders. IMPRESSION: No acute cardiopulmonary findings. No significant change in appearance of the chest. ACT 112: Negative or not required by law. Electronically signed by: Jong Nascimento M.D. 02/01/2024 4:15 PM
[2024-02-01 16:19] LABS: Albumin Level 3.7 gm/dl (3.4-5.0); BUN Creatinine Ratio 41.5 (10-20); Bilirubin Direct 0.1 mg/dl (0-0.2); Bilirubin,Total 0.5 mg/dl (0.2-1.0); Creatinine Clr Calc Pharmacy 61.1 ml/min; Est GFR (African American) 63.9 ml/min; Est GFR (Non-African American) 55.1 ml/min; Magnesium 2.1 mg/dl (1.7-2.4); Potassium 4.7 mmol/L (3.5-5.1); Total Protein 6.5 gm/dl (6.0-8.3)
[2024-02-01 16:25] LABS: Troponin I High Sensitivity 40.7 pg/ml (0-20)
[2024-02-01] MEDS: MoRPHine SULFATE 4 MG/ML 1 ML CARP\\VIAL IV STA (16:27)
[2024-02-01] MEDS: PIPERACILLIN/TAZOBACTAM 4.5 GM/100 ML BAG IV ONE (16:28)
[2024-02-01] MEDS: SODIUM CHLORIDE 0.9% 500 ML IV SCH (16:28)
--- NOTE | 2024-02-01 16:58 | History & Physical Report ---
Date of Service February 01, 2024 Assessment & Plan (1) Cellulitis of both feet: Plan: Bilateral lower extremity edema and erythema Recent [place] admission 01/20 01/22 for urosepsis; discharged on Ceftin 500 mg BID x 14 days Despite this, patient's lower extremity been worsening; failure of outpatient antibiotics Patient endorses weeping ulcers, but no purulent drainage H/o MRSA bacteremia Blood and surface wound cultures obtained in the ED No leukocytosis; afebrile CRP and ESR ordered, pending Daptomycin 350mg IV q24h; hold statin Zosyn 4.5g IV q8h Acetaminophen 1000 mg p.o. scheduled q8h Oxycodone as needed for breakthrough pain Wound care nurse evaluation appreciated Daily wound care A.m. CBC, BMP, CRP (2) History of MRSA infection: Plan: History of MRSA bacteremia 04/22/2023 History of Enterobacter cloacae bacteremia 11/06/2023 Hold doxycycline 100 mg p.o. BID; which patient takes for prophylaxis Antibiotics (as above) (3) Elevated troponin: Plan: Troponin elevated at 40 on arrival, repeat pending; trend q6h to peak Clinically, patient denies chest pain, SOB, pleuritic CP Continuous telemetry monitoring (4) Atrial fibrillation: Plan: Rate controlled on arrival Continue Xarelto, metoprolol (5) Coronary artery disease: Plan: Continue aspirin and losartan Hold pravastatin (6) Peripheral neuropathy: Plan: Continue gabapentin (7) Anxiety and depression: Plan: Continue mirtazapine, duloxetine (8) Rheumatoid arthritis: Plan: Patient stopped taking Rinvoq following episode of sepsis 01/20-01/22 (9) Chronic venous stasis: Plan Disposition: Obs -admit to [facility] telemetry Full code Heart healthy diet VTE PPx: Xarelto History of Present Illness Chief Complaint: Swelling/edema to extremity Primary Care Provider: DO Lowell Lopez is an 78-year-old male with PMH of urosepsis, MRSA bacteremia, adjustment disorder, septic right knee, lumbar radiculopathy, atherogenic dyslipidemia, HTN, anxiety, depression, HFrEF, NSTEMI, and pressure ulcers on the feet. He presented at the [facility] wound clinic on 01/31 for worsening erythema and swelling in his lower extremities bilaterally. Patient began to develop blisters on the bottom of his feet just prior to discharge which opened up after discharge on 01/22. He saw the wound clinic on Wednesday 01/24, but on 1 week follow-up they recommended he come in as his erythema/swelling was worsening. He also endorses intermittent sharp, shooting pain from his feet into his legs that occurs every several minutes. Worse in left leg. Patient has been taking Tylenol scheduled 1000 mg 3 times daily, as well as 2 pills of oxycodone at night, but reports this has not been helping. He also takes gabapentin. He rates the pain 15/10 at worst, and 7/10 at baseline. He is unable to identify any exacerbating or alleviating symptoms. He does report he is able to bear weight on his legs; can stand to transfer. He denies any radiation up into the lower back; he is unsure how far up the pain radiates from his feet. He does have a history of cellulitis, but reports this current episode is worse than prior episodes. He endorses clear weeping drainage from his ulcers, but no pus. Patient reports good compliance with taking his Ceftin BID upon discharge. He took his regular morning medications today. Only recent changes that he stopped taking Rinvoq. No PMH of DVT/PE; he reports good compliance with taking Xarelto. He denies smoking or tobacco use. He does endorse everyday alcohol use; 3 glasses of wine; no history of alcohol withdrawal or seizures. Patient is mildly hypertensive but 157/90 at time of admission; vitals otherwise stable. ED course: Vancomycin 2750 mg IV Zosyn 4.5 g IV Morphine sulfate 4 mg IV NSS 500 mL IV ROS: Patient endorses shooting pain in the feet with radiation up the legs, ARANDA (chronic), difficulty swallowing, and neuropathy in the legs (chronic). Patient denies fever, chills, night-sweats, dizziness/lightheadedness, SHANKAR, chest pain, SOB at rest, cough, abdominal pain, N/V/D, changes in urinary / bowel habits, burning with urination, dysuria, or blood in the urine/stool. Allergies Allergy/AdvReac Type Severity Reaction Status Date / Time cat dander Allergy Severe CAT Verified 02/01/24 13:05 HAIR---Swelling of Lip/Tongue/Throat Home Medications Medication Instructions Recorded Confirmed Type ascorbic acid (vitamin C) 500 mg 1,000 mg PO QAM 08/07/22 02/01/24 History capsule aspirin 81 mg tablet,delayed 81 mg PO QAM 08/07/22 02/01/24 History release (Adult Low Dose Aspirin) coenzyme Q10 100 mg capsule 100 mg PO QAM 08/07/22 02/01/24 History lactobacillus combination no.9 4 6,000 mmu cells PO QAM use with 08/07/22 02/01/24 History billion cell capsule (Adult 50 antibiotics Plus Probiotic) jhtpiqox-glkvwff-jygz-lutein tablet 1 tab PO QAM 08/07/22 02/01/24 History cyanocobalamin (vitamin B-12) 500 1,000 mcg (2 x 500 mcg) PO QAM #30 01/18/23 02/01/24 Rx mcg tablet tabs hydroxyzine HCl 10 mg tablet 10 mg PO HS PRN anxiety or 01/18/23 02/01/24 Rx insomnia #14 tabs thiamine HCl (vitamin B1) 100 mg 100 mg PO QAM 02/05/23 02/01/24 History tablet gabapentin 400 mg capsule 400 mg PO TID 30 days #90 caps 09/03/23 02/01/24 Rx olmesartan 5 mg tablet 5 mg PO DAILY 90 days #90 tabs 09/03/23 02/01/24 Rx upadacitinib 15 mg tablet,extended 0 mg PO DAILY 09/23/23 02/01/24 History release 24 hr (Rinvoq) metoprolol tartrate 25 mg tablet 12.5 mg (1/2 x 25 mg) PO BID 30 09/24/23 02/01/24 Rx days #30 tabs duloxetine 60 mg capsule,delayed 60 mg PO QAM #90 caps 10/29/23 02/01/24 Rx release ranolazine 500 mg tablet,extended 500 mg PO BID 11/06/23 02/01/24 History release,12 hr rivaroxaban 20 mg tablet (Xarelto) 20 mg PO DAILY 11/19/23 02/01/24 History diclofenac sodium 1 % topical gel 2 g topical QID PRN Pain 12/15/23 02/01/24 History (Voltaren Arthritis Pain) sennosides 8.6 mg tablet 8.6 mg PO HS 12/15/23 02/01/24 History cholecalciferol (vitamin D3) 10 20 mcg PO DAILY 01/21/24 02/01/24 History mcg (400 unit) tablet esomeprazole magnesium 40 mg 40 mg PO HS 01/21/24 02/01/24 History capsule,delayed release (Nexium) folic acid 1 mg tablet 1 mg PO DAILY 01/21/24 02/01/24 History mirtazapine 30 mg tablet 30 mg PO HS 01/21/24 02/01/24 History nitroglycerin 0.4 mg sublingual 0.4 mg sublingual DIRECTED PRN 01/21/24 02/01/24 History tablet chest pin pravastatin 40 mg tablet 40 mg PO HS 01/21/24 02/01/24 History travoprost 0.004 % eye drops 1 drp ophthalmic (eye) PM 01/21/24 02/01/24 History vitamin E 268 mg (400 unit) capsule 268 mg PO DAILY ##0 01/21/24 02/01/24 History acetaminophen 325 mg tablet 975 mg PO Q8H PRN mild pain,fever, 01/26/24 02/01/24 History or headache acetaminophen 500 mg tablet 1,000 mg PO TID 01/26/24 02/01/24 History (Tylenol Extra Strength) furosemide 20 mg tablet 20 mg PO DAILY PRN edema or weight 01/28/24 02/01/24 History gain melatonin 3 mg tablet 3 mg PO HS 02/01/24 02/01/24 History omega 6-ycx-mvh-fish oil 900 1 cap PO DAILY 02/01/24 02/01/24 History mg-1,400 mg capsule,delayed release oxycodone 10 mg tablet 10 mg PO HS PRN Pain 02/01/24 02/01/24 History potassium chloride 10 mEq 10 meq PO BID PRN If taking Lasix 02/01/24 02/01/24 History tablet,extended release Past Med/Surg History Problem List (Updated 02/06/24 @ 00:10 by Background Daemon) Bilateral cellulitis of lower leg (Acute) Peripheral neuropathy Atrial fibrillation Chronic venous stasis History of MRSA infection (Acute) Elevated troponin (Acute) Cellulitis of both feet (Acute) Rheumatoid arthritis Open wound of foot Open wound of right hand (Acute) Open wound of left lower extremity (Acute) Chronic wound Sepsis secondary to UTI Lymphangitis of lower extremity Hypomagnesemia (Acute) Fever (Acute) Open wound of left upper arm (Acute) Open wound of left arm with tendon injury Gram-negative bacteremia Cellulitis of right lower extremity (Acute) Sepsis due to skin infection Generalized weakness (Acute) Elevated procalcitonin (Acute) Acute kidney injury superimposed on chronic kidney disease (Acute) Sepsis (Acute) Skin tear of right upper extremity (Acute) Open wound of left foot (Acute) Open wound of right foot (Acute) Skin tear of right hand without complication (Acute) Venous ulcer of left leg (Acute) Traumatic open wound of right lower leg (Acute) Elevated LFTs MRSA bacteremia Dislocation, hip closed (Acute) Dislocation, hip, posterior Rotator cuff arthropathy of both shoulders Abrasion of right knee (Acute) Pain of right hip Prophylactic antibiotic History of sepsis Left shoulder pain Acquired foot deformity (Chronic) Traumatic wound (Acute) Pressure ulcer of left foot, stage 3 (Acute) Abnormal ankle brachial index (Acute) Right knee pain Cellulitis of knee, right (Acute) Non-ST elevation MD (NSTEMI) (Acute) Leukocytosis (Acute) Sepsis (Acute) Myoclonus Cervical radiculopathy Neuropathy Weakness On amiodarone therapy Weakness of right hip DVT prophylaxis Constipation Acute on chronic diastolic congestive heart failure Sepsis following procedure Wheezing Rhabdomyolysis MRSA infection History of CHF (congestive heart failure) Visual disturbance Hyponatremia Hypotension Acute metabolic encephalopathy Abdominal wall abscess (Acute) HFrEF (heart failure with reduced ejection fraction) EF 40% Mar 2022, improved 55-60% August 2022 Lumbar stenosis Osteoarthritis of right knee Anxiety and depression Hypertension Anemia (Acute) Coronary artery disease Pre-operative cardiovascular examination, myocardial ischemia Atherogenic dyslipidemia Fall Lumbar radiculopathy Low back pain Lower extremity weakness Degenerative spondylolisthesis Parainfluenza virus bronchitis Chronic low back pain Scoliosis of lumbar region due to degenerative disease of spine in adult Dislocation of hip, right, closed (Acute) Septic joint of right knee joint COVID-19 (Acute) Incisional hernia Incarcerated intra-abdominal hernia (Acute) Abdominal pain (Acute) Adjustment disorder with mixed anxiety and depressed mood Sepsis (Acute) Elevated lactic acid level (Acute) Medical History Venous ulcer of right leg Venous stasis ulcers of both lower extremities Idiopathic polyneuropathy History of immunosuppressive therapy Heart failure with preserved ejection fraction GERD (gastroesophageal reflux disease) Sepsis Septicemia due to Streptococcus pneumoniae Respiratory failure with hypoxia Hypomagnesemia Pneumonia Benign essential hypertension Lumbar stenosis Hx of staphylococcal infection 03/2022, w/"bacterial infection" at the same, in the rt. knee, occurrred during atrial fibrillation episode. "when he woke up, he couldn't walk." Atrial fibrillation episode occurred in 03/2022, taken to [facility] in [place], admitted to ICU for 1-2 weeks (was not intubated, but wasn't "awake either"), then to cardiac unit, then to rehab at [facility]; f/u dr. guerra in [place]>will be starting to see a retail store associate at [facility] 2nd week of 08/2022 Myocardial Infarction "a silent one, 2019" Sleep apnea no device Surgical History Hx of Achilles tendon repair rt. Hx of knee surgery rt. patellar tendon repair Hx of rotator cuff surgery bilateral Hx of total knee replacement lt. Hx of total hip arthroplasty rt. History of colostomy reversal History of bowel resection for diverticulitis; w/colostomy placement for 3-4 months Hx of hernia repair near former colostomy site History of esophagogastroduodenoscopy (EGD) Hx of colonoscopy Last Colonoscopy 08/14/22, repeat 3 years in 2025 Hx of bilateral cataract extraction History of heart artery stent ~3 years ago, x2 stents, done in [place]; f/u dr guerra, [place]>will be seeing new cardio at [place] 2nd week of August 2022. History of cardiac cath ~3 years ago, SOB and "felt like throat was constricting", had "silent heart attack", x2 stents, done in [place] Family History Grandmother (Maternal) Diabetes Daughter Diabetes Father Suicide Hypertension Denies family history of Ovarian cancer Prostate cancer Myocardial infarction Breast cancer Lung cancer Colorectal cancer Stroke Social History Smoking Status: Never smoker Second Hand Exposure: No; Hx Alcohol Use: Yes Alcohol type: wine Alcohol Intake Frequency: 4 or More x per/Week Hx Substance Use: No Preferred Language: Cymro Communication Ability: Effective Visual Impairment: Limited Hearing Ability: Normal Rack Carrier Required: No Beliefs That Will Affect Care: None marital status: Single Current Living Situation: Personal Care Facility Current Living Situation Comment: Alone at Independent [facility] at [facility] current occupational status: retired How many Children do You have: 2 Feels Safe at Home: Yes Safety Concerns: Feels Safe At This Time Childhood Exposure to Second-Hand Smoke: Yes caffeine: Yes Dental Care, Regularly: Yes Physical Activity Frequency: Does not Exercise Seatbelt Use: always Sunscreen Use: Yes Assistive Devices: Walker and Wheelchair Review of Systems 2 Review of Systems: See HPI above Physical Exam 2 Physical Exam: General: Patient exhibits acute physical distress every couple minutes when shooting pain radiates up from his feet into his legs; non-toxic appearing; well-nourished; cooperative; SpO2 97% on RA HEENT: normocephalic, atraumatic; no scleral icterus; PERRLA; vision and hearing grossly intact Neck: supple; no lymphadenopathy; trachea midline Skin: warm, dry without signs of tenting; no cyanosis; no rashes, bruising, lesions, or erythema noted CV: chest wall NTP; RRR; S1/S2 normal; no murmurs/rubs/gallops; pulses intact and symmetric at radial, DP, and PT Lungs: no acute respiratory distress; symmetrical chest wall expansion; clear breath sounds across all lung hathaway w/o adventitious sounds; no wheezing ABD: Soft, NTP; BS present; no rebound/guarding; moderate distention secondary to body habitus LEs: Erythematous and warm to touch bilaterally extending up to the mid calf; circumferential erythema (see photos below); multiple ulcerations on the feet bilaterally MSK: no tics or fasciculations; +2 pitting edema extending from the feet to the mid calf bilaterally Neuro: A&Ox3; normal mood and affect; fluent speech; no focal deficits; sensation intact in the LEs b/l Results & Data Results & Data Vital Signs (Past 12 Hours) Vital Signs Temp Pulse Resp BP Pulse Ox O2 Del Method 02/01/24 16:04 97 Room Air 02/01/24 16:04 18 97 Room Air 02/01/24 14:55 65 02/01/24 14:35 36.9 C 67 20 157/90 H 95 Room Air Laboratory Results Abnormal lab results 02/01/24 Range/Units 14:44 RBC 3.79 L (4.70-6.10) M/uL Hgb 12.7 L (14.0-18.0) g/dl Hct 39.0 L (42.0-52.0) % MCV 102.9 H (80.0-100.0) fL RDW Std Deviation 56.0 H (36.4-46.3) fL RDW Coeff of Sammie 14.9 H (11.5-14.5) % Neut # (Auto) 8.56 H (1.40-6.50) K/uL Lymph # (Auto) 0.87 L (1.20-3.40) K/uL [place] # (Auto) 0.85 H (0.11-0.59) K/uL Sodium 135 L (136-145) mmol/L BUN 51 H (6-23) mg/dl BUN/Creatinine Ratio 41.5 H (10-20) Glucose 103 H (70-99(Fasting)) mg/dl AST 42 H (13-39) U/L Troponin I High Sens 40.7 H (0-20) pg/ml Diagnostic Findings Chest X-Ray 02/01/24 15:55 XR chest 1V portable CLINICAL HISTORY: Sepsis. COMPARISON STUDY: Chest radiograph January 21, 2024. FINDINGS: Lung volumes are normal. No consolidation to suggest pneumonia. Linear left basilar densities favor atelectasis or scarring, similar to prior exam. There is no pneumothorax or pleural effusion. Cardiac size is normal. Mediastinal contours are normal. There is no evidence for pulmonary edema. There are severe degenerative changes of both shoulders. IMPRESSION: No acute cardiopulmonary findings. No significant change in appearance of the chest. ACT 112: Negative or not required by law. Electronically signed by: Jong Nascimento M.D. 02/01/2024 4:15 PM Code Status & VTE Plan Code Status Full code VTE Prophylaxis Plan VTE Prophylaxis will be ordered: Yes Supervising Physician Co-Signing Physician Notes I personally saw and examined the patient. I independently reviewed the labs, EKG, imaging, problem list, medication list, past medical history and family history. I verified all lubin points and agree with Kendall Chowdhury PA-C with the following exceptions and/or additions: 78 year old male presents to the ER on advice of the wound care clinic for worsening erythema of both feet despite cefuroxime and doxycycline. O/E HS RRR, no murmurs, Chest CTAB, Abdo SNT, Erythema and swelling to b/l lower extremities as per pictures above A/P Cellulitis - US arterial doppler in September without arterial occlusion or high grade stenosis, daptomycin + Zosyn, wound care nurse PG Care Time/CCT Total # of Minutes Spent Total Time Spent with Patient: Total time spent is greater than 50% in coordination of care (as documented) at patient's floor/unit and/or counseling patient: Coding [place] [address] INT INP/OBS CARE 3/75MIN Patient Type Established Medical Decision Making High Complexity Diagnoses Cellulitis of both feet L03.115; L03.116 History of MRSA infection Z86.14 Elevated troponin R79.89 Atrial fibrillation I48.91 Coronary artery disease I25.10 Peripheral neuropathy G62.9 Anxiety and depression F41.9; F32.A Rheumatoid arthritis, involving unspecified site, unspecified whether rheumatoid factor present M06.9 Rheumatoid arthritis location: unspecified site Rheumatoid factor presence: unspecified presence Chronic venous stasis I87.8 (8) Rheumatoid arthritis Rheumatoid arthritis location: unspecified site Rheumatoid factor presence: u nspecified presence Qualified Code(s): M06.9 - Rheumatoid arthritis, unspecified
[2024-02-01] MEDS: VANCOMYCIN HCL 2,750 MG in SODIUM CHLORIDE 0.9% 500 ML IV ONE (17:19)
[2024-02-01 18:20] LABS: C Reactive Protein 0.99 mg/dl (0-0.5)
[2024-02-01 18:23] LABS: Troponin I High Sensitivity 34.7 pg/ml (0-20)
[2024-02-01] MEDS ORDERED: hydrOXYzine HCl 10 MG TAB PO PRN (20:08)
[2024-02-01] MEDS: oxyCODONE HCL IR 5 MG TAB (IMMEDIATE RELEASE) PO PRN ×2 (21:56→21:57)
[2024-02-01] MEDS: TRAVOPROST Z 0.004% OPH SOLN 2.5 ML BTL OP SCH (21:57)
[2024-02-01] MEDS: ACETAMINOPHEN 500 MG TAB PO SCH (21:57)
[2024-02-01] MEDS: METOPROLOL TARTRATE 25 MG TAB PO SCH (21:59)
[2024-02-01] MEDS: GABAPENTIN 400 MG CAP PO SCH (21:59)
[2024-02-01] MEDS: MELATONIN 3 MG TAB PO SCH (21:59)
[2024-02-01] MEDS: PANTOprazole 40 MG TAB PO SCH (22:00)
[2024-02-01] MEDS: MIRTAZAPINE TAB 15 MG TAB PO SCH (22:01)
[2024-02-01] MEDS: SENNA 8.6 MG TAB PO SCH (22:01)
[2024-02-01] MEDS: RANOLAZINE 500 MG ER TAB PO SCH (22:02)
[2024-02-01] MEDS: PIPERACILLIN/TAZOBACTAM 4.5 GM/100 ML BAG IV SCH (22:02)
[2024-02-01 23:09] LABS: Appearance Urine Clear (Clear); Bacteria Urine Automated None Seen (None Seen); Bilirubin Urine Negative (Negative); Blood Urine Negative (Negative); Cast Urine Automated 0-2 /lpf (0-2); Color Urine Dark Yellow; Epithelial Cell Urine Auto 0-2 /hpf (0-2); Glucose Urine UA Negative (Negative); Ketones Urine Negative (Negative); Leukocyte Esterase Urine 2+ (Negative); Nitrite Urine Negative (Negative); Protein Urine Negative (Negative); Specific Gravity Urine 1.024 (1.000-1.030); Urobilinogen Urine Negative (Negative); WBC Urine Automated 21-50 /hpf (0-5)
[2024-02-02 08:02] LABS: Basophils # (auto) 0.02 K/uL (0.00-0.20); Basophils % (auto) 0.2 %; Eosinophils # (auto) 0.08 K/uL (0.00-0.50); Eosinophils % (auto) 0.9 %; Hematocrit (blood only) 34.1 % (42.0-52.0); Hemoglobin 11.6 g/dl (14.0-18.0); Immature Granulocytes # (auto) 0.07 K/uL (0.01-0.20); Immature Granulocytes % (auto) 0.8 %; Lymphocytes # (auto) 0.69 K/uL (1.20-3.40); Lymphocytes % (auto) 8.1 %; Mean Corpuscular Hemoglobin 33.8 pg (25.0-34.0); Mean Corpuscular Volume 99.4 fL (80.0-100.0); Monocytes # (auto) 0.71 K/uL (0.11-0.59); Monocytes % (auto) 8.3 %; Neutrophils % (auto) 81.7 %; Platelet Count 195 K/uL (130-400); RDW Coefficient of Variation 15.1 % (11.5-14.5); RDW Standard Deviation 55.6 fL (36.4-46.3); Red Blood Count 3.43 M/uL (4.70-6.10); White Blood Count 8.57 K/ul (4.8-10.8)
[2024-02-02] MEDS: DULoxetine HCL 60 MG CAP PO SCH (08:11)
[2024-02-02] MEDS: FOLIC ACID 1 MG TAB PO SCH (08:11)
[2024-02-02] MEDS: RIVAROXABAN 20 MG TAB PO SCH (08:12)
[2024-02-02] MEDS: LOSARTAN POTASSIUM 25 MG TAB PO SCH (08:12)
[2024-02-02] MEDS: ASPIRIN 81 MG ECTAB PO SCH (08:12)
[2024-02-02 08:20] LABS: BUN Creatinine Ratio 36.3 (10-20); C Reactive Protein 0.94 mg/dl (0-0.5); Calcium 8.3 mg/dl (8.6-10.3); Creatinine Clr Calc Pharmacy 68.3 ml/min; Est GFR (African American) 70.8 ml/min; Est GFR (Non-African American) 61.1 ml/min; Potassium 4.6 mmol/L (3.5-5.1)
[2024-02-02 10:48] VITALS: BP 127/76; PULSE 69; RESP 18; TEMP 98.2; O2SAT 96
--- NOTE | 2024-02-02 17:53 | Discharge Summary ---
Discharge Summary Date of Service February 02, 2024 Principal Dx & Hospital Course #1 = Principal Diagnosis (1) Cellulitis of both feet: Presented at the [facility] of the wound clinic on 01/31 for worsening erythema and swelling in his lower extremities bilaterally. - Recent [place] admission 01/20 01/22 for urosepsis; discharged on Ceftin 500 mg BID x 14 days > Despite this, patient's lower extremity been worsening; failure of outpatient antibiotics - Patient endorsed weeping ulcers, but no purulent drainage - H/o MRSA bacteremia - Blood and surface wound cultures obtained in the ED - No leukocytosis, afebrile on admission - CRP mildly elevated at 0.94 and ESR mildly elevated at 23 - Daptomycin 350mg IV q24h; hold statin - Zosyn 4.5g IV q8h - Acetaminophen 1000 mg p.o. scheduled q8h - Oxycodone as needed for breakthrough pain - Daily wound care - [facility]. Patient was in tears when this was discussed, but ultimately agreed to it. (2) History of MRSA infection: History of MRSA bacteremia 04/22/2023 History of Enterobacter cloacae bacteremia 11/06/2023 Hold doxycycline 100 mg p.o. BID; which patient takes for prophylaxis Antibiotics (as above) (3) Elevated troponin: Troponin elevated at 40.7 on arrival, repeat 34.7 - suspect secondary to demand ischemia Clinically, patient denies chest pain, SOB, pleuritic CP Continuous telemetry monitoring (4) Atrial fibrillation: Rate controlled on arrival Continue Xarelto, metoprolol (5) Coronary artery disease: Continue aspirin and losartan Hold pravastatin (6) Peripheral neuropathy: Continue gabapentin (7) Anxiety and depression: Continue mirtazapine, duloxetine (8) Rheumatoid arthritis: Patient stopped taking Rinvoq following episode of sepsis 01/20-01/22 (9) Chronic venous stasis: [facility] requested patient be transferred to their hospital 02/02/24. CODE STATUS: Full code VTE PPx: Xarelto Admission HPI Per Admitting Provider Lowell is an 78-year-old male with PMH of urosepsis, MRSA bacteremia, adjustment disorder, septic right knee, lumbar radiculopathy, atherogenic dyslipidemia, HTN, anxiety, depression, HFrEF, NSTEMI, and pressure ulcers on the feet. He presented at the [facility] of the wound clinic on 01/31 for worsening erythema and swelling in his lower extremities bilaterally. Patient began to develop blisters on the bottom of his feet just prior to discharge which opened up after discharge on 01/22. He saw the wound clinic on Wednesday 01/24, but on 1 week follow-up they recommended he come in as his erythema/swelling was worsening. He also endorses intermittent sharp, shooting pain from his feet into his legs that occurs every several minutes. Worse in left leg. Patient has been taking Tylenol scheduled 1000 mg 3 times daily, as well as 2 pills of oxycodone at night, but reports this has not been helping. He also takes gabapentin. He rates the pain 15/10 at worst, and 7/10 at baseline. He is unable to identify any exacerbating or alleviating symptoms. He does report he is able to bear weight on his legs; can stand to transfer. He denies any radiation up into the lower back; he is unsure how far up the pain radiates from his feet. He does have a history of cellulitis, but reports this current episode is worse than prior episodes. He endorses clear weeping drainage from his ulcers, but no pus. Patient reports good compliance with taking his Ceftin BID upon discharge. He took his regular morning medications today. Only recent changes that he stopped taking Rinvoq. No PMH of DVT/PE; he reports good compliance with taking Xarelto. He denies smoking or tobacco use. He does endorse everyday alcohol use; 3 glasses of wine; no history of alcohol withdrawal or seizures. Patient is mildly hypertensive but 157/90 at time of admission; vitals otherwise stable. ED course: Vancomycin 2750 mg IV Zosyn 4.5 g IV Morphine sulfate 4 mg IV NSS 500 mL IV ROS: Patient endorses shooting pain in the feet with radiation up the legs, ARANDA (chronic), difficulty swallowing, and neuropathy in the legs (chronic). Patient denies fever, chills, night-sweats, dizziness/lightheadedness, SHANKAR, chest pain, SOB at rest, cough, abdominal pain, N/V/D, changes in urinary / bowel habits, burning with urination, dysuria, or blood in the urine/stool. Admission Exam Per Admitting Provider General: No acute distress, nondiaphoretic, well-developed, well-nourished. Skin: Circumferential erythema bilaterally extending up to the mid calf; multiple ulcerations on the feet bilaterally. +2 pitting edema extending from the feet to the mid calf bilaterally. Cardiac: Regular rate and rhythm without murmurs gallops or rubs. Pulm: Clear to auscultation bilaterally without wheezes, rales or rhonchi. No retractions or accessory muscle use. Abdominal: Positive bowel sounds x 4. Soft, nontender, without masses or organomegaly. No guarding or rebound tenderness. Neuro: A&O x3. No focal neurological deficits. Discharge Plan Discharge Items Patient Disposition: Transfer [facility] Reason For Visit: LE CELLULITIS B/L Discharge Diagnosis: Bilateral lower extremity cellulitis, acute on chronic lower extremity wounds bilaterally Activity: As commented below Activity Comment: Per discharge instructions from [facility] Non-emergency contact: Primary Care Provider and Specialist Call non-emergency contact if: you have any medication questions and your symptoms worsen Follow-up/Referrals: Danny Soliman DO [Primary Care Provider] - Diet: Heart Healthy Addtl Attending Provider Instructions: FOR [facility] Mr. Palacio presented at the behest of the wound clinic on 01/31 for worsening erythema and swelling in his lower extremities bilaterally. Patient began to develop blisters on the bottom of his feet just prior to discharge which opened up after discharge on 01/22. He saw the wound clinic on Wednesday 01/24, but on 1 week follow-up they recommended he come in as his erythema/swelling was worsening. He also endorses intermittent sharp, shooting pain from his feet into his legs that occurs every several minutes. Worse in left leg. He endorses clear weeping drainage from his ulcers, but no purulent drainage. Recent hospitalization from 01/20-01/22 for urosepsis and was discharged on Ceftin 500 mg BID x14 days, reports good compliance. Patient does take Doxycycline 100 mg BID for MRSA prophylaxis due to history of MRSA bacteremia in April 2023. Patient does take Rinvoq at baseline for RA, but this has been held since his prior admission on 01/20. Current Hospital Course: Daptomycin 350mg IV q24h; hold statin Zosyn 4.5g IV q8h Acetaminophen 1000 mg p.o. scheduled q8h Oxycodone as needed for breakthrough pain Daily wound care Follow blood cultures and wound cultures obtained on admission 01/31 Pending Studies at Discharge: Yes Studies:: Blood cultures, wound cultures Stand-Alone Forms: My [facility] Skilled Items Patient informed of condition?: Yes DNR: No Discharge Level of Care: Other Communicable Disease: Yes (Unknown until cultures result. History of MRSA bacteremia.) Discharge Prognosis: Stable Lines: None Urinary Catheter: No Medications and DC Order Prescriptions: Continued gabapentin 400 mg capsule 400 mg PO TID 30 Days Qty: 90 5RF olmesartan 5 mg tablet 5 mg PO DAILY 90 Days Qty: 90 3RF metoprolol tartrate 25 mg tablet 12.5 mg PO BID 30 Days Qty: 30 5RF Rx Instructions: TAKE 1/2 TABLET BY MOUTH TWICE DAILY FOR YOUR HEART AND HIGH BLOOD PRESSURE duloxetine 60 mg capsule,delayed release(DR/EC) 60 mg PO QAM Qty: 90 3RF furosemide 20 mg tablet 20 mg PO DAILY PRN (Reason: edema or weight gain) Xarelto 20 mg tablet 20 mg PO DAILY Rx Instructions: must administer with evening meal start 3 days after last eliquis dose. aspirin [Adult Low Dose Aspirin] 81 mg tablet,delayed release (DR/EC) 81 mg PO QAM Hold Instructions: Resume on 02/23/23. until PCP/surgery followup djujdtvl-cybrlhc-vrlv-lutein Tablet 1 tab PO QAM coenzyme Q10 100 mg capsule 100 mg PO QAM Adult 50 Plus Probiotic 4 billion cell capsule 6,000 mmu cells PO QAM Rx Instructions: administer with a meal ascorbic acid (vitamin C) 500 mg capsule 1,000 mg PO QAM cyanocobalamin (vitamin B-12) 500 mcg Tablet 1,000 mcg PO QAM Qty: 30 0RF hydroxyzine HCl 10 mg Tablet 10 mg PO HS PRN (Reason: anxiety or insomnia) Qty: 14 0RF thiamine HCl (vitamin B1) 100 mg tablet 100 mg PO QAM travoprost 0.004 % Drops 1 drp OPHTHALMIC (EYE) PM nitroglycerin 0.4 mg Tablet, Sublingual 0.4 mg sublingual DIRECTED PRN (Reason: chest pin) folic acid 1 mg Tablet 1 mg PO DAILY vitamin E 268 mg (400 unit) Capsule 268 mg PO DAILY Qty: 0 Rx Instructions: strength not listed mirtazapine 30 mg tablet 30 mg PO HS esomeprazole magnesium [Nexium] 40 mg capsule,delayed release(DR/EC) 40 mg PO HS cholecalciferol (vitamin D3) 10 mcg (400 unit) Tablet 20 mcg PO DAILY acetaminophen 325 mg tablet 975 mg PO Q8H PRN (Reason: mild pain,fever, or headache) ranolazine 500 mg tablet extended release 12 hr 500 mg PO BID sennosides 8.6 mg Tablet 8.6 mg PO HS diclofenac sodium [Voltaren Arthritis Pain] 1 % gel 2 g topical QID PRN (Reason: Pain) melatonin 3 mg Tablet 3 mg PO HS omega 1-bzk-trv-fish oil 900-1,400 mg Capsule,Delayed Release(Dr/Ec) 1 cap PO DAILY potassium chloride 10 mEq Tablet Extended Release 10 meq PO BID PRN (Reason: If taking Lasix) oxycodone 10 mg Tablet 10 mg PO HS PRN (Reason: Pain) Held Rinvoq 15 mg tablet extended release 24 hr 0 mg PO DAILY Hold Instructions: Resume on 02/04/24. Rx Instructions: Currently on hold, restart on 02/04/24: Original Directions: 15mg by mouth daily acetaminophen [Tylenol Extra Strength] 500 mg tablet 1,000 mg PO TID Hold Instructions: Resume on 02/09/24. Rx Instructions: Takes TID with Gabapentin pravastatin 40 mg tablet 40 mg PO HS Hold Instructions: Resume on 02/09/24. Hold while on daptomycin Rx Instructions: TAKE 1 TABLET BY MOUTH ONCE DAILY Discontinued cefuroxime axetil 500 mg tablet 500 mg PO BID 11 Days Qty: 22 0RF Discharge Orders: Discharge Order (Routine); Ordered 02/02/24 Ordered By: Annia Fields Admission Data Admit Date/Time: 02/01/24 17:38 Attending Provider: Danny Kim Admit Provider: Shaheen Amor Primary Care Provider: Danny Soliman Other Providers: Shaheen Amor; [facility],Hospital Hospital Stay Data Consultations 02/01/24 17:07 ED Decision to Admit Stat Diagnostic Imagining Performed Chest X-Ray 02/01/24 15:55 XR chest 1V portable CLINICAL HISTORY: Sepsis. COMPARISON STUDY: Chest radiograph January 21, 2024. FINDINGS: Lung volumes are normal. No consolidation to suggest pneumonia. Linear left basilar densities favor atelectasis or scarring, similar to prior exam. There is no pneumothorax or pleural effusion. Cardiac size is normal. Mediastinal contours are normal. There is no evidence for pulmonary edema. There are severe degenerative changes of both shoulders. IMPRESSION: No acute cardiopulmonary findings. No significant change in appearance of the chest. ACT 112: Negative or not required by law. Electronically signed by: Jong Nascimento M.D. 02/01/2024 4:15 PM Pending Results Patient Have Any Pending Studies at Discharge: Yes Discharge Instructions Given to Patient (Per Discharging Provider) FOR [facility] Mr. Palacio presented at the behest of the wound clinic on 01/31 for worsening erythema and swelling in his lower extremities bilaterally. Patient began to develop blisters on the bottom of his feet just prior to discharge which opened up after discharge on 01/22. He saw the wound clinic on Wednesday 01/24, but on 1 week follow-up they recommended he come in as his erythema/swelling was worsening. He also endorses intermittent sharp, shooting pain from his feet into his legs that occurs every several minutes. Worse in left leg. He endorses clear weeping drainage from his ulcers, but no purulent drainage. Recent hospitalization from 01/20-01/22 for urosepsis and was discharged on Ceftin 500 mg BID x14 days, reports good compliance. Patient does take Doxycycline 100 mg BID for MRSA prophylaxis due to history of MRSA bacteremia in April 2023. Patient does take Rinvoq at baseline for RA, but this has been held since his prior admission on 01/20. Current Hospital Course: Daptomycin 350mg IV q24h; hold statin Zosyn 4.5g IV q8h Acetaminophen 1000 mg p.o. scheduled q8h Oxycodone as needed for breakthrough pain Daily wound care Follow blood cultures and wound cultures obtained on admission 01/31 Total Time Total Time Spent Total Time Spent (In Minutes): Greater than 30 minutes spent completing this discharge process including direct patient care, medication reconciliation, documentation, review of labs and images, and coordination of care. Coding Level of Care Code 67132 INP/OBS DISCH >30 MIN Diagnoses Cellulitis of both feet L03.115; L03.116 History of MRSA infection Z86.14 Elevated troponin R79.89 Atrial fibrillation I48.91 Coronary artery disease I25.10 Peripheral neuropathy G62.9 Anxiety and depression F41.9; F32.A Rheumatoid arthritis, involving unspecified site, unspecified whether rheumatoid factor present M06.9 Rheumatoid arthritis location: unspecified site Rheumatoid factor presence: unspecified presence Chronic venous stasis I87.8
[2024-02-02] MEDS ORDERED: DAPTOmycin 350 MG in SYRINGE 0 ML IV SCH (18:00)
--- NOTE | 2024-02-03 23:11 | Electrocardiogram Report ---
Test Reason : Blood Pressure : */* mmHG Vent. Rate : 64 BPM Atrial Rate : 64 BPM P-R Int : 186 ms QRS Dur : 112 ms QT Int : 426 ms P-R-T Axes : 40 -32 36 degrees QTcB Int : 439 ms Normal sinus rhythm Left axis deviation Nonspecific T wave abnormality Abnormal ECG When compared with ECG of 21-Jan-2024 11:46, No significant change was found Confirmed by Azam Horne ([id number]) on 02/03/2024 11:10:58 PM Referred By: Kelli erickson [facility] Confirmed By: Azam Horne
== END 2024-02-02 15:25 | DRG 603 ==
LOC: ED 14:15 → SUATTDRO 17:38 → EDINP 17:38 → 2N 20:09
DX: G62.9 Polyneuropathy, unspecified; I25.10 Atherosclerotic heart disease of native coronary artery without angina pectoris; Z79.82 Long term (current) use of aspirin; R79.89 Other specified abnormal findings of blood chemistry; Z79.899 Other long term (current) drug therapy; Z99.3 Dependence on wheelchair; F41.9 Anxiety disorder, unspecified; I48.91 Unspecified atrial fibrillation; F32.A Depression, unspecified; L03.115 Cellulitis of right lower limb; Z86.14 Personal history of Methicillin resistant Staphylococcus aureus infection; Z91.048 Other nonmedicinal substance allergy status; M06.9 Rheumatoid arthritis, unspecified; L03.116 Cellulitis of left lower limb

== ENCOUNTER 2024-03-29 12:27 | Inpatient (IN) ==
--- NOTE | 2024-03-29 13:11 | XRay Report ---
XR chest 1V not portable HISTORY: 78 years-old Male fall acute chest trauma status post fall COMPARISON: 03/25/2024 TECHNIQUE: AP view the chest FINDINGS: Cardiac silhouette is enlarged. Unchanged positioning of the right-sided PICC. Calcified right hilar lymph node. No pneumothorax, pleural effusion or overt pulmonary edema. Calcified granuloma in the ri ght lung base. Mild subsegmental bibasilar atelectasis. Degenerative changes of the shoulders and spi ne. No acute displaced rib fracture. IMPRESSION: 1. Cardiomegaly without acute process. 2. Mild bibasilar atelectasis. 3. Prior granulomatous disease. ACT 112: Negative or not required by law. The above report was generated using voice recognition software. It may contain grammatical, syntax o r spelling errors. Electronically signed by: Geo Clayton M.D. 03/29/2024 1:10 PM
[2024-03-29 13:18] LABS: Basophils # (auto) 0.06 K/uL (0.00-0.20); Basophils % (auto) 0.6 %; Eosinophils # (auto) 0.67 K/uL (0.00-0.50); Eosinophils % (auto) 6.3 %; Hematocrit (blood only) 34.8 % (42.0-52.0); Hemoglobin 10.8 g/dl (14.0-18.0); Immature Granulocytes # (auto) 0.05 K/uL (0.01-0.20); Immature Granulocytes % (auto) 0.5 %; Lymphocytes # (auto) 1.17 K/uL (1.20-3.40); Mean Corpuscular Hemoglobin 30.4 pg (25.0-34.0); Mean Platelet Volume 10.4 fL (9.4-12.4); Monocytes % (auto) 9.4 %; Neutrophils # (auto) 7.64 K/uL (1.40-6.50); Neutrophils % (auto) 72.2 %; Platelet Count 283 K/uL (130-400); RDW Coefficient of Variation 15.9 % (11.5-14.5); RDW Standard Deviation 56.7 fL (36.4-46.3); Red Blood Count 3.55 M/uL (4.70-6.10); White Blood Count 10.59 K/ul (4.8-10.8)
[2024-03-29 13:21] LABS: Albumin Level 3.4 gm/dl (3.4-5.0); Bilirubin,Total 0.7 mg/dl (0.2-1.0); Calcium 8.9 mg/dl (8.6-10.3); Creatinine Clr Calc Pharmacy 46.4 ml/min; Globulin 3.4 gm/dl (2.5-4.0); Potassium 3.8 mmol/L (3.5-5.1); Total Protein 6.8 gm/dl (6.0-8.3)
--- NOTE | 2024-03-29 13:30 | Emergency Department Note ---
Impression & Plan Hypotension, Hypomagnesemia, Anemia, Fall, Weakness, JEFFERY (acute kidney injury) ED Provider Note NAME: RAFY CHICAS AGE: 78 SEX: M : 1945 ARRIVES VIA: Ambulance INFORMANT: [Patient][daughter] ED PROVIDER(S): [Maxime Loomis MD] CHIEF COMPLAINT: Weakness HISTORY OF PRESENT ILLNESS: The patient is an 78-year-old male who has been on the floor for around 12 hours. The patient was trying to transition from his wheelchair to his bed and somehow, fell from the wheelchair to the floor. He was found on the floor today by staff. The patient is part of independent living at [facility]. The patient complains of some abrasions to the right anterior knee. He thinks he scraped his knee trying to get himself back into bed. He does have sutures in place over this knee, he had a right knee joint replacement surgery after the previous joint replacement became septic. He is currently on IV ertapenem on a daily basis through a right arm PICC line. The patient was at [facility] for awhile. He was there for rehab and strengthening. He left 4 days ago and is living independently at [facility]. The patient states that he does feel weaker than baseline. He is weaker than when he left the rehab center. There has been no cough or congestion. No shortness of breath. No fever or chills. No urinary complaints. He states that his right knee in general is feeling better, there is no pain with knee joint movement like there was before. On a secondary note, the patient caught his PICC line and the line was pulled fairly hard. He is concerned that it may be out of position. He was advised to have it checked while he was here. PMHx/PSHx/Social Hx: See Below PHYSICAL EXAM: GENERAL: Patient is in no acute distress. HEENT: No acute trauma, normocephalic atraumatic, mucous membranes moist, no nasal congestion. NECK: No stridor, no adenopathy, no meningismus, trachea is midline. LUNGS: Clear to auscultation bilaterally, no wheeze, no rhonchi, breath sounds equal. HEART: Without murmurs gallops or rubs, regular rate and rhythm. ABDOMEN: Soft, nontender, no peritonitis. EXTREMITIES: No cyanosis. The patient does have sutures across the right anterior knee. There is an abrasion over the right knee consistent with the trauma sustained overnight. There is some subtle warmth to the knee joint. There is chronic discoloration of the right lower extremity. NEUROLOGIC: Oriented x 3, no acute motor or sensory deficits, no focal weakness. SKIN: No jaundice, no diaphoresis. DIFFERENTIAL DIAGNOSIS: Dehydration, rhabdomyolysis, renal or liver failure, anemia, NH, among others. EMERGENCY DEPARTMENT PROCEDURES: MEDICAL DECISION MAKING: There is no leukocytosis. The patient is anemic, this value is below his typical baseline. There is a normal platelet count. INR is high at 1.7. There is some acute kidney injury with a creatinine of 1.67. Magnesium was low at 1.4. No concerning liver enzyme elevation. ECG shows a sinus rhythm, no acute ischemia. Cardiac enzyme testing x 1 is slightly elevated, the patient appears to have a mild troponin elevation at baseline. Chest x-ray did not show pneumonia or CHF. His PICC line was in proper position. Right knee film did not show any fracture or loosening of his prosthetic hardware. Total CK was not elevated making rhabdomyolysis unlikely. On exam, there is an abrasion across the anterior right knee. His sutures were intact. There was some subtle warmth to the right knee but movement of the joint did not cause any significant discomfort. On initial presentation, the patient's blood pressure was slightly low in the 90s systolic. The patient was given 1 g of IV or ertapenem, he was due for this dose of medication today. He was given IV and oral magnesium, he was given a 500 cc saline bolus. The patient presents with weakness, he just left the rehab 4 days ago. He does not appear to be safe to live independently at the present time. The patient's blood pressure did improve with the IV fluids. I do suspect a component of dehydration as part of his presentation. I did speak with the patient and daughter, I do think a hospital stay is warranted. He may benefit from repeat inpatient rehab after this hospitalization. Prior/Outside records/notes reviewed: Today's EMS notes describing his presentation and transport to this hospital. ECG per my interpretation: Indication was weakness. The ECG shows a sinus rhythm with some PVCs. The rate is 86. There is some baseline artifact. There is no ST elevation. QTc is 490. Continuous Cardiac Monitoring per my interpretation: An order was placed for continuous cardiac monitoring. The monitor shows a rate of 83 with sinus rhythm with PVCs. Imaging/x-ray results per my interpretation: Chest x-ray shows some chronic change, the PICC line appears to be in proper position. There is no pneumonia. Chronic Medical/Social conditions affecting care: Advanced age. Care/Management discussed with: Case management, the on-call hospitalist. Level of care consideration(s): After review of the information above and other included data: --I believe the patient requires escalation of care to admission DISPOSITION: Admission Past Med/Surg History Problem List (Updated 03/29/24 @ 15:20 by Maxime Loomis MD) JEFFERY (acute kidney injury) (Acute) Weakness (Acute) Fall (Acute) Anemia (Acute) Hypomagnesemia (Acute) Hypotension (Acute) Bilateral cellulitis of lower leg (Acute) Peripheral neuropathy Atrial fibrillation Chronic venous stasis History of MRSA infection (Acute) Elevated troponin (Acute) Cellulitis of both feet (Acute) Rheumatoid arthritis Open wound of foot Open wound of right hand (Acute) Open wound of left lower extremity (Acute) Chronic wound Sepsis secondary to UTI Lymphangitis of lower extremity Hypomagnesemia (Acute) Fever (Acute) Open wound of left upper arm (Acute) Open wound of left arm with tendon injury Gram-negative bacteremia Cellulitis of right lower extremity (Acute) Sepsis due to skin infection Generalized weakness (Acute) Elevated procalcitonin (Acute) Acute kidney injury superimposed on chronic kidney disease (Acute) Sepsis (Acute) Skin tear of right upper extremity (Acute) Open wound of left foot (Acute) Open wound of right foot (Acute) Skin tear of right hand without complication (Acute) Venous ulcer of left leg (Acute) Traumatic open wound of right lower leg (Acute) Elevated LFTs MRSA bacteremia Dislocation, hip closed (Acute) Dislocation, hip, posterior Rotator cuff arthropathy of both shoulders Abrasion of right knee (Acute) Pain of right hip Prophylactic antibiotic History of sepsis Left shoulder pain Acquired foot deformity (Chronic) Traumatic wound (Acute) Pressure ulcer of left foot, stage 3 (Acute) Abnormal ankle brachial index (Acute) Right knee pain Cellulitis of knee, right (Acute) Non-ST elevation NH (NSTEMI) (Acute) Leukocytosis (Acute) Sepsis (Acute) Myoclonus Cervical radiculopathy Neuropathy Weakness On amiodarone therapy Weakness of right hip DVT prophylaxis Constipation Acute on chronic diastolic congestive heart failure Sepsis following procedure Wheezing Rhabdomyolysis MRSA infection History of CHF (congestive heart failure) Visual disturbance Hyponatremia Hypotension Acute metabolic encephalopathy Abdominal wall abscess (Acute) HFrEF (heart failure with reduced ejection fraction) EF 40% Mar 2022, improved 55-60% August 2022 Lumbar stenosis Osteoarthritis of right knee Anxiety and depression Hypertension Anemia (Acute) Coronary artery disease Pre-operative cardiovascular examination, myocardial ischemia Atherogenic dyslipidemia Fall Lumbar radiculopathy Low back pain Lower extremity weakness Degenerative spondylolisthesis Parainfluenza virus bronchitis Chronic low back pain Scoliosis of lumbar region due to degenerative disease of spine in adult Dislocation of hip, right, closed (Acute) Septic joint of right knee joint COVID-19 (Acute) Incisional hernia Incarcerated intra-abdominal hernia (Acute) Abdominal pain (Acute) Adjustment disorder with mixed anxiety and depressed mood Sepsis (Acute) Elevated lactic acid level (Acute) Medical History UTI (urinary tract infection) Severe sepsis Venous ulcer of right leg Venous stasis ulcers of both lower extremities Idiopathic polyneuropathy History of immunosuppressive therapy Heart failure with preserved ejection fraction GERD (gastroesophageal reflux disease) Sepsis Septicemia due to Streptococcus pneumoniae Respiratory failure with hypoxia Hypomagnesemia Pneumonia Benign essential hypertension Lumbar stenosis Hx of staphylococcal infection 03/2022, w/"bacterial infection" at the same, in the rt. knee, occurrred during atrial fibrillation episode. "when he woke up, he couldn't walk." Atrial fibrillation episode occurred in 03/2022, taken to [facility], admitted to ICU for 1-2 weeks (was not intubated, but wasn't "awake either"), then to cardiac unit, then to rehab at [facility]; f/u dr. guerra in [place]>will be starting to see a nuclear medicine medical director at [facility] 2nd week of 08/2022 Myocardial Infarction "a silent one2019" Sleep apnea no device Surgical History Hx of Achilles tendon repair rt. Hx of knee surgery rt. patellar tendon repair Hx of rotator cuff surgery bilateral Hx of total knee replacement lt. Hx of total hip arthroplasty rt. History of colostomy reversal History of bowel resection for diverticulitis; w/colostomy placement for 3-4 months Hx of hernia repair near former colostomy site History of esophagogastroduodenoscopy (EGD) Hx of colonoscopy Last Colonoscopy 08/14/22, repeat 3 years in 2025 Hx of bilateral cataract extraction History of heart artery stent ~3 years ago, x2 stents, done in [place]; f/u dr guerra, [place]>will be seeing new cardio at [facility] week of August 2022. History of cardiac cath ~3 years ago, SOB and "felt like throat was constricting", had "silent heart attack", x2 stents, done in [place] Family History Grandmother (Maternal) Diabetes Daughter Diabetes Father Suicide Hypertension Denies family history of Ovarian cancer Prostate cancer Myocardial infarction Breast cancer Lung cancer Colorectal cancer Stroke Social History Smoking Status: Current every day smoker Second Hand Exposure: No; Hx Alcohol Use: Yes Alcohol type: wine Alcohol Intake Frequency: 4 or More x per/Week Hx Substance Use: No Preferred Language: Urdu Communication Ability: Effective Visual Impairment: Limited Hearing Ability: Normal Armored Vehicle Officer Required: No Beliefs That Will Affect Care: None marital status: Single Current Living Situation: Personal Care Facility Current Living Situation Comment: Alone at Independent Living at [facility] current occupational status: retired How many Children do You have: 2 Feels Safe at Home: Yes Childhood Exposure to Second-Hand Smoke: Yes caffeine: Yes Dental Care, Regularly: Yes Physical Activity Frequency: Does not Exercise Seatbelt Use: always Sunscreen Use: Yes Assistive Devices: Walker and Wheelchair Allergies Allergies Allergy/AdvReac Type Severity Reaction Status Date / Time cat dander Allergy Severe CAT Verified 03/25/24 09:58 HAIR---Swelling of Lip/Tongue/Throat Home Meds Home Medications Medication Instructions Recorded Confirmed ascorbic acid (vitamin C) 500 mg 1,000 mg PO QAM 08/07/22 03/25/24 capsule aspirin 81 mg tablet,delayed 81 mg PO QAM 08/07/22 03/25/24 release (Adult Low Dose Aspirin) coenzyme Q10 100 mg capsule 100 mg PO QAM 08/07/22 03/25/24 lactobacillus combination no.9 4 6,000 mmu cells PO QAM use with 08/07/22 03/25/24 billion cell capsule (Adult 50 antibiotics Plus Probiotic) [id number]-lutein tablet 1 tab PO QAM 08/07/22 03/25/24 thiamine HCl (vitamin B1) 100 mg 100 mg PO QAM 02/05/23 03/25/24 tablet upadacitinib 15 mg tablet,extended 0 mg PO DAILY 09/23/23 03/25/24 release 24 hr (Rinvoq) ranolazine 500 mg tablet,extended 500 mg PO BID 11/06/23 03/25/24 release,12 hr rivaroxaban 20 mg tablet (Xarelto) 20 mg PO DAILY 11/19/23 03/25/24 diclofenac sodium 1 % topical gel 2 g topical QID PRN Pain 12/15/23 03/25/24 (Voltaren Arthritis Pain) sennosides 8.6 mg tablet 8.6 mg PO HS 12/15/23 03/25/24 cholecalciferol (vitamin D3) 10 20 mcg PO DAILY 01/21/24 03/25/24 mcg (400 unit) tablet esomeprazole magnesium 40 mg 40 mg PO HS 01/21/24 03/25/24 capsule,delayed release (Nexium) folic acid 1 mg tablet 1 mg PO DAILY 01/21/24 03/25/24 mirtazapine 30 mg tablet 30 mg PO HS 01/21/24 03/25/24 nitroglycerin 0.4 mg sublingual 0.4 mg sublingual DIRECTED PRN 01/21/24 03/25/24 tablet chest pin pravastatin 40 mg tablet 40 mg PO HS 01/21/24 03/25/24 travoprost 0.004 % eye drops 1 drp ophthalmic (eye) PM 01/21/24 03/25/24 vitamin E 268 mg (400 unit) capsule 268 mg PO DAILY ##0 01/21/24 03/25/24 acetaminophen 325 mg tablet 975 mg PO Q8H PRN mild pain,fever, 01/26/24 03/25/24 or headache acetaminophen 500 mg tablet 1,000 mg PO TID 01/26/24 03/25/24 (Tylenol Extra Strength) furosemide 20 mg tablet 20 mg PO DAILY PRN edema or weight 01/28/24 03/25/24 gain melatonin 3 mg tablet 3 mg PO HS 02/01/24 03/25/24 omega 5-udc-kpr-fish oil 900 1 cap PO DAILY 02/01/24 03/25/24 mg-1,400 mg capsule,delayed release oxycodone 10 mg tablet 10 mg PO HS PRN Pain 02/01/24 03/25/24 potassium chloride 10 mEq 10 meq PO BID PRN If taking Lasix 02/01/24 03/25/24 tablet,extended release clotrimazole 10 mg bella 10 mg PO DIRECTED 02/19/24 03/25/24 Previous Rx's Medication Instructions Recorded cyanocobalamin (vitamin B-12) 500 1,000 mcg (2 x 500 mcg) PO QAM #30 01/18/23 mcg tablet tabs hydroxyzine HCl 10 mg tablet 10 mg PO HS PRN anxiety or 01/18/23 insomnia #14 tabs gabapentin 400 mg capsule 400 mg PO TID 30 days #90 caps 09/03/23 olmesartan 5 mg tablet 5 mg PO DAILY 90 days #90 tabs 09/03/23 metoprolol tartrate 25 mg tablet 12.5 mg (1/2 x 25 mg) PO BID 30 09/24/23 days #30 tabs duloxetine 60 mg capsule,delayed 60 mg PO QAM #90 caps 10/29/23 release Results & Data (ED) Vital Signs Vital Signs - 24 hr 03/29/24 12:33 03/29/24 12:33 03/29/24 12:33 Temperature Temperature Source Pulse Rate 87 Pulse Rate from SpO2 Sensor Respiratory Rate 24 Blood Pressure 99/54 L 99/54 L Blood Pressure Mean 78 78 Pulse Oximetry Oxygen Delivery Method Sepsis Recent Fever Within 48 Hours Sepsis New/Unexplained Change in Mental Status Sepsis Action Taken by Nursing 03/29/24 12:34 03/29/24 13:21 03/29/24 13:31 Temperature 36.8 C Temperature Source Oral Pulse Rate 83 Pulse Rate from SpO2 Sensor 83 Respiratory Rate 18 17 Blood Pressure 99/54 L 100/62 Blood Pressure Mean 69 76 Pulse Oximetry 97 99 Oxygen Delivery Method Room Air Sepsis Recent Fever Within 48 Hours No Sepsis New/Unexplained Change in Mental Status No Sepsis Action Taken by Nursing No Action Required 03/29/24 13:33 03/29/24 13:45 03/29/24 14:01 Temperature Temperature Source Pulse Rate 94 H 77 Pulse Rate from SpO2 Sensor 78 76 Respiratory Rate 21 16 Blood Pressure 105/60 Blood Pressure Mean 90 Pulse Oximetry 99 Oxygen Delivery Method Sepsis Recent Fever Within 48 Hours Sepsis New/Unexplained Change in Mental Status Sepsis Action Taken by Nursing 03/29/24 14:06 03/29/24 14:10 Temperature Temperature Source Pulse Rate 79 88 Pulse Rate from SpO2 Sensor 76 Respiratory Rate 18 Blood Pressure Blood Pressure Mean Pulse Oximetry 97 Oxygen Delivery Method Sepsis Recent Fever Within 48 Hours Sepsis New/Unexplained Change in Mental Status Sepsis Action Taken by [facility] Medications Current Medication List: was personally reviewed by me Laboratory Data Attestation: I reviewed the patient's lab results. 03/29/24 12:40 03/29/24 12:40 Lab Results 03/29/24 Range/Units 12:40 WBC 10.59 (4.8-10.8) K/ul RBC 3.55 L (4.70-6.10) M/uL Hgb 10.8 L (14.0-18.0) g/dl Hct 34.8 L (42.0-52.0) % MCV 98.0 (80.0-100.0) fL MCH 30.4 (25.0-34.0) pg MCHC 31.0 L (32.0-36.0) g/dL RDW Std Deviation 56.7 H (36.4-46.3) fL RDW Coeff of Sammie 15.9 H (11.5-14.5) % Plt Count 283 (130-400) K/uL MPV 10.4 (9.4-12.4) fL Immature Gran % (Auto) 0.5 % Neut % (Auto) 72.2 % Lymph % (Auto) 11.0 % [place] % (Auto) 9.4 % Eos % (Auto) 6.3 % Baso % (Auto) 0.6 % Neut # (Auto) 7.64 H (1.40-6.50) K/uL Lymph # (Auto) 1.17 L (1.20-3.40) K/uL [place] # (Auto) 1.00 H (0.11-0.59) K/uL Eos # (Auto) 0.67 H (0.00-0.50) K/uL Baso # (Auto) 0.06 (0.00-0.20) K/uL Immature Gran # (Auto) 0.05 (0.01-0.20) K/uL PT 17.8 H (9.0-12.0) Seconds INR 1.7 H (0.9-1.1) APTT 38 H (21-31) Seconds PTT Ratio 1.4 Sodium 142 (136-145) mmol/L Potassium 3.8 (3.5-5.1) mmol/L Chloride 104 (98-107) mmol/L Carbon Dioxide 29 (21-32) mmol/L Anion Gap 9 (3-11) BUN 30 H (6-23) mg/dl Creatinine 1.67 H (0.6-1.4) mg/dl Est Cr Clr Drug Dosing 46.4 ml/min eGFR 41.12 BUN/Creatinine Ratio 18.0 (10-20) Glucose 135 H (70-99(Fasting)) mg/dl Calcium 8.9 (8.6-10.3) mg/dl Magnesium 1.4 L (1.7-2.4) mg/dl Total Bilirubin 0.7 (0.2-1.0) mg/dl AST 33 (13-39) U/L ALT 20 (7-52) U/L Alkaline Phosphatase 79 (34-104) U/L Total Creatine Kinase 145 (30-223) U/L Troponin I High Sens 35.5 H (0-20) pg/ml Total Protein 6.8 (6.0-8.3) gm/dl Albumin 3.4 (3.4-5.0) gm/dl Globulin 3.4 (2.5-4.0) gm/dl Albumin/Globulin Ratio 1.0 (0.9-2) Administered Medications Discontinued Medications Sodium Chloride (Nss) 500 mls @ 999 mls/hr IV .Q31M ONE Stop: 03/29/24 13:46 Last Admin: 03/29/24 13:53 Dose: 999 mls/hr Documented By: LILIYA Ertapenem (Invanz 1000mg) 1,000 mg in 10 mls @ 2 mls/min IV NOW STA Stop: 03/29/24 13:20 Last Admin: 03/29/24 13:53 Dose: 2 mls/min Documented By: LILIYA Magnesium Sulfate/Dextrose (Magnesium Sulfate / D5w) 1 gm in 100 mls @ 100 mls/hr IV NOW STA Stop: 03/29/24 15:00 Last Admin: 03/29/24 14:32 Dose: 100 mls/hr Documented By: JOSE MIGUEL Magnesium Oxide (Magnesium Oxide 400 Mg Tab) 400 mg PO NOW STA Stop: 03/29/24 14:02 Last Admin: 03/29/24 14:32 Dose: 400 mg Documented By: JOSE MIGUEL Imaging Data Radiologist's Impression: Chest X-Ray 03/29/24 12:46 XR chest 1V not portable HISTORY: 78 years-old Male fall acute chest trauma status post fall COMPARISON: 03/25/2024 TECHNIQUE: AP view the chest FINDINGS: Cardiac silhouette is enlarged. Unchanged positioning of the right-sided PICC. Calcified right hilar lymph node. No pneumothorax, pleural effusion or overt pulmonary edema. Calcified granuloma in the right lung base. Mild subsegmental bibasilar atelectasis. Degenerative changes of the shoulders and spine. No acute displaced rib fracture. IMPRESSION: 1. Cardiomegaly without acute process. 2. Mild bibasilar atelectasis. 3. Prior granulomatous disease. ACT 112: Negative or not required by law. The above report was generated using voice recognition software. It may contain grammatical, syntax or spelling errors. Electronically signed by: Geo Clayton M.D. 03/29/2024 1:10 PM Knee X-Ray 03/29/24 13:16 XR knee RT 3V CLINICAL HISTORY: Right knee pain following fall. COMPARISON: Right knee radiographs February 19, 2024. FINDINGS: Alignment of the total right knee arthroplasty is anatomic. There is no periprosthetic fracture or lucency. Right knee soft tissue swelling with suspected small to moderate joint effusion is similar to prior exam. IMPRESSION: 1. Intact total right knee arthroplasty. No periprosthetic fracture or lucency. 2. Right knee soft tissue swelling and a suspected small to moderate right knee joint effusion, similar to prior exam. ACT 112: Negative or not required by law. Electronically signed by: Jong Nascimento M.D. 03/29/2024 2:01 PM Discharge Plan Visit Data Chief Complaint: Weakness Stated Complaint: WEAKNESS ED Provider: Maxime Loomis Discharge Problem: Hypotension, Hypomagnesemia, Anemia, Fall, Weakness, JEFFERY (acute kidney injury) Patient Disposition: Admitted As Inpatient Condition: Fair Forms Stand Alone Forms: My [facility] Prescriptions Prescriptions: No Action Rinvoq 15 mg tablet extended release 24 hr 0 mg PO DAILY Hold Instructions: Resume on 02/09/24. Hold during acute infection Rx Instructions: Currently on hold, restart on 02/04/24: Original Directions: 15mg by mouth daily gabapentin 400 mg capsule 400 mg PO TID 30 Days Qty: 90 5RF olmesartan 5 mg tablet 5 mg PO DAILY 90 Days Qty: 90 3RF metoprolol tartrate 25 mg tablet 12.5 mg PO BID 30 Days Qty: 30 5RF Rx Instructions: TAKE 1/2 TABLET BY MOUTH TWICE DAILY FOR YOUR HEART AND HIGH BLOOD PRESSURE duloxetine 60 mg capsule,delayed release(DR/EC) 60 mg PO QAM Qty: 90 3RF furosemide 20 mg tablet 20 mg PO DAILY PRN (Reason: edema or weight gain) acetaminophen [Tylenol Extra Strength] 500 mg tablet 1,000 mg PO TID Hold Instructions: Resume on 02/09/24. Rx Instructions: Takes TID with Gabapentin Xarelto 20 mg tablet 20 mg PO DAILY Rx Instructions: must administer with evening meal start 3 days after last eliquis dose. aspirin [Adult Low Dose Aspirin] 81 mg tablet,delayed release (DR/EC) 81 mg PO QAM Hold Instructions: Resume on 02/23/23. until PCP/surgery followup [id number]-lhdp-lutein Tablet 1 tab PO QAM coenzyme Q10 100 mg capsule 100 mg PO QAM Adult 50 Plus Probiotic 4 billion cell capsule 6,000 mmu cells PO QAM Rx Instructions: administer with a meal ascorbic acid (vitamin C) 500 mg capsule 1,000 mg PO QAM cyanocobalamin (vitamin B-12) 500 mcg Tablet 1,000 mcg PO QAM Qty: 30 0RF hydroxyzine HCl 10 mg Tablet 10 mg PO HS PRN (Reason: anxiety or insomnia) Qty: 14 0RF thiamine HCl (vitamin B1) 100 mg tablet 100 mg PO QAM travoprost 0.004 % Drops 1 drp OPHTHALMIC (EYE) PM nitroglycerin 0.4 mg Tablet, Sublingual 0.4 mg sublingual DIRECTED PRN (Reason: chest pin) folic acid 1 mg Tablet 1 mg PO DAILY vitamin E 268 mg (400 unit) Capsule 268 mg PO DAILY Qty: 0 Rx Instructions: strength not listed pravastatin 40 mg tablet 40 mg PO HS Hold Instructions: Resume on 02/09/24. Hold while on daptomycin Rx Instructions: TAKE 1 TABLET BY MOUTH ONCE DAILY mirtazapine 30 mg tablet 30 mg PO HS esomeprazole magnesium [Nexium] 40 mg capsule,delayed release(DR/EC) 40 mg PO HS cholecalciferol (vitamin D3) 10 mcg (400 unit) Tablet 20 mcg PO DAILY acetaminophen 325 mg tablet 975 mg PO Q8H PRN (Reason: mild pain,fever, or headache) ranolazine 500 mg tablet extended release 12 hr 500 mg PO BID sennosides 8.6 mg Tablet 8.6 mg PO HS diclofenac sodium [Voltaren Arthritis Pain] 1 % gel 2 g topical QID PRN (Reason: Pain) melatonin 3 mg Tablet 3 mg PO HS omega 1-zpk-hzh-fish oil 900-1,400 mg Capsule,Delayed Release(Dr/Ec) 1 cap PO DAILY potassium chloride 10 mEq Tablet Extended Release 10 meq PO BID PRN (Reason: If taking Lasix) oxycodone 10 mg Tablet 10 mg PO HS PRN (Reason: Pain) clotrimazole 10 mg bella 10 mg PO DIRECTED Referrals Referrals: Danny Soliman DO [Primary Care Provider] - Discharge Problem: Hypotension Qualifiers: Hypotension type: unspecified hypotension type Qualified Code(s): I95.9 - Hypotension, unspecified Anemia Qualifiers: Anemia type: unspecified type Qualified Code(s): D64.9 - Anemia, unspecified Fall Qualifiers: Encounter type: initial encounter Qualified Code(s): W19.XXXA - Unspecified fall, initial encounter
[2024-03-29 13:31] LABS: INR 1.7 (0.9-1.1); Partial Thromboplastin Ratio 1.4; Partial Thromboplastin Time 38 Seconds (21-31); Prothrombin Time 17.8 Seconds (9.0-12.0)
[2024-03-29] MEDS: ERTAPENEM 1000MG 1,000 MG/10 ML SYR IV STA (13:53)
[2024-03-29] MEDS: SODIUM CHLORIDE 0.9% 500 ML IV ONE (13:53)
[2024-03-29 13:57] LABS: Magnesium 1.4 mg/dl (1.7-2.4)
--- NOTE | 2024-03-29 14:03 | XRay Report ---
XR knee RT 3V CLINICAL HISTORY: Right knee pain following fall. COMPARISON: Right knee radiographs February 19, 2024. FINDINGS: Alignment of the total right knee arthroplasty is anatomic. There is no periprosthetic fra cture or lucency. Right knee soft tissue swelling with suspected small to moderate joint effusion is similar to prior exam. IMPRESSION: 1. Intact total right knee arthroplasty. No periprosthetic fracture or lucency. 2. Right knee soft tissue swelling and a suspected small to moderate right knee joint effusion, simil ar to prior exam. ACT 112: Negative or not required by law. Electronically signed by: Jong Nascimento M.D. 03/29/2024 2:01 PM
[2024-03-29 14:04] LABS: Troponin I High Sensitivity 35.5 pg/ml (0-20)
[2024-03-29] MEDS: MAGNESIUM OXIDE 400 MG TAB PO STA (14:32)
[2024-03-29] MEDS: MAGNESIUM SULFATE / D5W 1 GM/100 ML BAG IV STA (14:32)
--- NOTE | 2024-03-29 15:37 | History & Physical Report ---
Date of Service March 29, 2024 Assessment & Plan (1) Ambulatory dysfunction: Plan: Patient reportedly fell while transferring from wheelchair to bed and was on the ground for approximately 12 hours Unable to get up on his own Generalized fatigue x 1 month Patient recently transferred to independent living at [facility]; was previously at inpatient rehab at [facility] CK level WNL on arrival PT/OT evaluations appreciated Discussed with case management regarding potential direct transfer to [facility], but patient does not meet criteria based on his insurance/Medicare Case management consulted for rehab placement ([facility]) A.m. CBC, BMP, TSH, mag (2) JEFFERY (acute kidney injury): Plan: BUN 30, creatinine 1.67 (baseline 1.11.2) on arrival Daughter reports that patient had JEFFERY due to cefepime use at [facility] Review of [facility] progress note (Dr. Delgado) as well as discharge revealed creatinine increased up to 2.5 Cefepime was discontinued on 03/17, and ertapenem was started on 03/18 Since then her has been gradual improvement in renal function Avoid nephrotoxic agents where possible Hold bumex for now as reassess AM BMP Okay to take olmesartan as CrCl >30 NSS 500 mL IV given in the ED Encourage p.o. fluids in the setting of national IVF shortage Trend BMP (3) Hypomagnesemia: Plan: Magnesium 1.4 on arrival Magnesium sulfate 1 g IV x 2 Magnesium oxide 400 mg p.o. x 1 Hold PPI Recheck a.m. mag (4) Infection of prosthetic right knee joint: Plan: Ongoing No leukocytosis; afebrile Right knee x-ray on arrival revealed soft tissue swelling and small to moderate right knee joint effusion Continue ertapenem IV daily Monitor PICC line (5) Atrial fibrillation: Plan: Continue Xarelto, metoprolol (6) History of MRSA infection: Plan: Continue doxycycline twice daily Plan Disposition: Obs - admit to [facility] Full code Regular diet VTE PPx: On Xarelto History of Present Illness Chief Complaint: Generalized weakness Primary Care Provider: DO Lowell Lopez is an 78-year-old male with PMH of MRSA infection, prosthetic right knee infection, CAD, CHF, sepsis, rhabdomyolysis, NSTEMI, atrial fibrillation, chronic venous stasis, peripheral neuropathy, and cellulitis. He presented via EMS on 03/29 after sustaining a fall while transferring from his wheelchair to bed last night at [facility]. Patient reports that the fall occurred around midnight and he was on the ground until approximately 10 AM when home health came for a blood draw. He reports that he had a "controlled" fall and did not injure anything. No head strike. No LOC. He did not call for help but he did not want to "bother anyone". Patient reports generalized weakness x 1 month. He does have remote history of a right knee prosthetic infection in February which required [facility] to [place]. He is currently taking ertapenem through his PICC line daily for this. Daughter reports that he recently had an JEFFERY after being given cefepime at [facility], and was switched from cefepime to ertapenem on 03/17. Patient left inpatient rehab on Thursday and went to independent living at [facility]. He reports he has had dark urine, and increased urinary frequency lately, but daughter does note that he has had increased diuretic use due to leg swelling over the past few weeks. Daughter also noticed increased cold intolerance; denies history of thyroid issues. Patient's vitals are stable at time of admission. ED course: NSS 500 mL IV Ertapenem 1000 mg IV Magnesium sulfate 1 g IV Magnesium oxide 400 mg p.o. ROS: Patient endorses generalized fatigue, new cold intolerance, dry superficial rash noted on the abdomen/flank/back x 2-3 weeks, dark urine, increased urinary frequency, and leg swelling. Patient denies fever, chills, night sweats, dizziness/lightheadedness with movements, headache, chest pain, chest palpitations, pleuritic CP, SOB, cough, abdominal pain, N/V/D, burning with urination, or blood in the urine or stool. Allergies Allergy/AdvReac Type Severity Reaction Status Date / Time cat dander Allergy Severe CAT Verified 03/25/24 09:58 HAIR---Swelling of Lip/Tongue/Throat Home Medications Medication Instructions Recorded Confirmed Type aspirin 81 mg tablet,delayed 81 mg PO QAM 08/07/22 03/29/24 History release (Adult Low Dose Aspirin) lactobacillus combination no.9 4 6,000 mmu cells PO QAM use with 08/07/22 03/29/24 History billion cell capsule (Adult 50 antibiotics Plus Probiotic) vsuezjwg-ujychei-qjne-lutein tablet 1 tab PO QAM 08/07/22 03/29/24 History cyanocobalamin (vitamin B-12) 500 1,000 mcg (2 x 500 mcg) PO QAM #30 01/18/23 03/29/24 Rx mcg tablet tabs thiamine HCl (vitamin B1) 100 mg 100 mg PO QAM 02/05/23 03/29/24 History tablet gabapentin 400 mg capsule 400 mg PO TID 30 days #90 caps 09/03/23 03/29/24 Rx olmesartan 5 mg tablet 5 mg PO DAILY 90 days #90 tabs 09/03/23 03/29/24 Rx upadacitinib 15 mg tablet,extended 15 mg PO DAILY 09/23/23 03/29/24 History release 24 hr (Rinvoq) metoprolol tartrate 25 mg tablet 12.5 mg (1/2 x 25 mg) PO BID 30 09/24/23 03/29/24 Rx days #30 tabs duloxetine 60 mg capsule,delayed 60 mg PO QAM #90 caps 10/29/23 03/29/24 Rx release ranolazine 500 mg tablet,extended 500 mg PO BID 11/06/23 03/29/24 History release,12 hr rivaroxaban 20 mg tablet (Xarelto) 20 mg PO DAILY 11/19/23 03/29/24 History sennosides 8.6 mg tablet 8.6 mg PO HS 12/15/23 03/29/24 History cholecalciferol (vitamin D3) 10 20 mcg PO DAILY 01/21/24 03/29/24 History mcg (400 unit) tablet esomeprazole magnesium 40 mg 40 mg PO HS 01/21/24 03/29/24 History capsule,delayed release (Nexium) mirtazapine 30 mg tablet 30 mg PO HS 01/21/24 03/29/24 History nitroglycerin 0.4 mg sublingual 0.4 mg sublingual DIRECTED PRN 01/21/2403/09 History tablet chest pin pravastatin 40 mg tablet 40 mg PO HS 01/21/24 03/29/24 History vitamin E 268 mg (400 unit) capsule 268 mg PO DAILY ##0 01/21/24 03/29/24 History acetaminophen 325 mg tablet 975 mg PO Q8H PRN mild pain,fever, 01/26/24 03/29/24 History or headache omega 7-diz-twt-fish oil 900 1 cap PO DAILY 02/01/24 03/29/24 History mg-1,400 mg capsule,delayed release clotrimazole 10 mg bella 10 mg PO DIRECTED 02/19/24 03/29/24 History bumetanide 1 mg tablet 1 mg PO DAILY 03/29/24 03/29/24 History codeine 10 mg-guaifenesin 100 mg/5 10 ml PO Q4H PRN Cough 03/29/24 03/29/24 History mL oral liquid doxycycline hyclate 100 mg capsule 100 mg PO BID 03/29/24 03/29/24 History ferrous sulfate 325 mg (65 mg 325 mg PO DAILY 03/29/24 03/29/24 History iron) tablet hydrocodone 5 mg-acetaminophen 325 1 tab PO Q4H PRN Pain (Scale Score 03/29/24 03/29/24 History mg tablet 4-6) isosorbide mononitrate 60 mg 60 mg PO QAM 03/29/24 03/29/24 History tablet,extended release 24 hr latanoprost 0.005 % eye drops 1 drp ophthalmic (eye) QPM 03/29/24 03/29/24 History melatonin 5 mg tablet 5 mg PO HS 03/29/24 03/29/24 History nystatin 100,000 unit/gram topical 1 applic topical DAILY 03/29/24 03/29/24 History powder tamsulosin 0.4 mg capsule 0.4 mg PO DAILY 03/29/24 03/29/24 History vitamin B comp and C no.3 15 mg-10 1 cap PO DAILY 03/29/24 03/29/24 History mg-50 mg-5 mg-300 mg capsule (B Complex Plus Vitamin C) Past Med/Surg History Problem List (Updated 03/31/24 @ 17:22 by Carmen Joy MD) VRE bacteremia Ambulatory dysfunction Infection of prosthetic right knee joint JEFFERY (acute kidney injury) (Acute) Weakness (Acute) Fall (Acute) Anemia (Acute) Hypomagnesemia (Acute) Hypotension (Acute) Bilateral cellulitis of lower leg (Acute) Peripheral neuropathy Atrial fibrillation Chronic venous stasis History of MRSA infection (Acute) Elevated troponin (Acute) Cellulitis of both feet (Acute) Rheumatoid arthritis Open wound of foot Open wound of right hand (Acute) Open wound of left lower extremity (Acute) Chronic wound Sepsis secondary to UTI Lymphangitis of lower extremity Hypomagnesemia (Acute) Fever (Acute) Open wound of left upper arm (Acute) Open wound of left arm with tendon injury Gram-negative bacteremia Cellulitis of right lower extremity (Acute) Sepsis due to skin infection Generalized weakness (Acute) Elevated procalcitonin (Acute) Acute kidney injury superimposed on chronic kidney disease (Acute) Sepsis (Acute) Skin tear of right upper extremity (Acute) Open wound of left foot (Acute) Open wound of right foot (Acute) Skin tear of right hand without complication (Acute) Venous ulcer of left leg (Acute) Traumatic open wound of right lower leg (Acute) Elevated LFTs MRSA bacteremia Dislocation, hip closed (Acute) Dislocation, hip, posterior Rotator cuff arthropathy of both shoulders Abrasion of right knee (Acute) Pain of right hip Prophylactic antibiotic History of sepsis Left shoulder pain Acquired foot deformity (Chronic) Traumatic wound (Acute) Pressure ulcer of left foot, stage 3 (Acute) Abnormal ankle brachial index (Acute) Right knee pain Cellulitis of knee, right (Acute) Non-ST elevation NC (NSTEMI) (Acute) Leukocytosis (Acute) Sepsis (Acute) Myoclonus Cervical radiculopathy Neuropathy Weakness On amiodarone therapy Weakness of right hip DVT prophylaxis Constipation Acute on chronic diastolic congestive heart failure Sepsis following procedure Wheezing Rhabdomyolysis MRSA infection History of CHF (congestive heart failure) Visual disturbance Hyponatremia Hypotension Acute metabolic encephalopathy Abdominal wall abscess (Acute) HFrEF (heart failure with reduced ejection fraction) EF 40% Mar 2022, improved 55-60% August 2022 Lumbar stenosis Osteoarthritis of right knee Anxiety and depression Hypertension Anemia (Acute) Coronary artery disease Pre-operative cardiovascular examination, myocardial ischemia Atherogenic dyslipidemia Fall Lumbar radiculopathy Low back pain Lower extremity weakness Degenerative spondylolisthesis Parainfluenza virus bronchitis Chronic low back pain Scoliosis of lumbar region due to degenerative disease of spine in adult Dislocation of hip, right, closed (Acute) Septic joint of right knee joint COVID-19 (Acute) Incisional hernia Incarcerated intra-abdominal hernia (Acute) Abdominal pain (Acute) Adjustment disorder with mixed anxiety and depressed mood Sepsis (Acute) Elevated lactic acid level (Acute) Medical History UTI (urinary tract infection) Severe sepsis Venous ulcer of right leg Venous stasis ulcers of both lower extremities Idiopathic polyneuropathy History of immunosuppressive therapy Heart failure with preserved ejection fraction GERD (gastroesophageal reflux disease) Sepsis Septicemia due to Streptococcus pneumoniae Respiratory failure with hypoxia Hypomagnesemia Pneumonia Benign essential hypertension Lumbar stenosis Hx of staphylococcal infection 03/2022, w/"bacterial infection" at the same, in the rt. knee, occurrred during atrial fibrillation episode. "when he woke up, he couldn't walk." Atrial fibrillation episode occurred in 03/2022, taken to [facility] in [place], admitted to ICU for 1-2 weeks (was not intubated, but wasn't "awake either"), then to cardiac unit, then to rehab at [facility]; f/u dr. guerra in [place]>will be starting to see a boiler tube reamer at [facility] 2nd week of 08/2022 Myocardial Infarction "a silent one, 2019" Sleep apnea no device Surgical History Hx of Achilles tendon repair rt. Hx of knee surgery rt. patellar tendon repair Hx of rotator cuff surgery bilateral Hx of total knee replacement lt. Hx of total hip arthroplasty rt. History of colostomy reversal History of bowel resection for diverticulitis; w/colostomy placement for 3-4 months Hx of hernia repair near former colostomy site History of esophagogastroduodenoscopy (EGD) Hx of colonoscopy Last Colonoscopy 08/14/22, repeat 3 years in 2025 Hx of bilateral cataract extraction History of heart artery stent ~3 years ago, x2 stents, done in [place]; f/u dr guerra, [place]>will be seeing new cardio at [place] 2nd week of August 2022. History of cardiac cath ~3 years ago, SOB and "felt like throat was constricting", had "silent heart attack", x2 stents, done in [place] Family History Grandmother (Maternal) Diabetes Daughter Diabetes Father Suicide Hypertension Denies family history of Ovarian cancer Prostate cancer Myocardial infarction Breast cancer Lung cancer Colorectal cancer Stroke Social History Smoking Status: Never smoker Second Hand Exposure: No; Do You Dip or Chew Tobacco: No; Tobacco Cessation Education Requested by Patient: No Hx Alcohol Use: Yes Alcohol type: wine Alcohol Intake Frequency: 4 or More x per/Week Hx Substance Use: No Preferred Language: Montenegrin Communication Ability: Effective Visual Impairment: Limited Hearing Ability: Normal 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 Beliefs That Will Affect Care: None marital status: Single Current Living Situation: Other Current Living Situation Comment: Independent living facility current occupational status: retired How many Children do You have: 2 Other Information That Helps Us Care for You: No Feels Safe at Home: Yes Safety Concerns: Feels Safe At This Time Childhood Exposure to Second-Hand Smoke: Yes caffeine: Yes Dental Care, Regularly: Yes Physical Activity Frequency: Does not Exercise Seatbelt Use: always Sunscreen Use: Yes Assistive Devices: Walker and Wheelchair Review of Systems Review of Systems: See HPI above Physical Exam Physical Exam: General: no acute distress; lethargic; daughter at bedside; non-toxic appearing; well-nourished; cooperative; SpO2 98% on RA HEENT: normocephalic, atraumatic; no scleral icterus; PERRLA; vision and hearing intact Neck: supple; no lymphadenopathy; trachea midline Skin: Dry superficial rash noted on the trunk and the back; warm, dry without signs of tenting; no cyanosis; no rashes, bruising, lesions, or erythema noted RUE: PICC line without signs of infection or drainage CV: chest wall NTP; RRR; S1/S2 normal; no murmurs/rubs/gallops; pulses intact and symmetric at radial, DP, and PT Lungs: no acute respiratory distress; symmetrical chest wall expansion; clear breath sounds across all lung hathaway w/o adventitious sounds; no wheezing ABD: Soft, NTP; BS present; no rebound/guarding; no distention LLE: Right knee surgical site without signs of acute infection or drainage MSK: no tics or fasciculations; no edema noted in the LEs b/l, nonerythematous Neuro: A&Ox3; normal mood and affect; fluent speech; no focal deficits; patient reports that sensation is slightly decreased in the right lateral lower extremity (around the knee) when compared to the left Results & Data Results & Data Vital Signs (Past 12 Hours) Vital Signs Temp Pulse Resp BP Pulse Ox O2 Del Method 10/22/24 15:03 75 18 97 03/29/24 15:01 108/66 03/29/24 14:45 77 17 97 03/29/24 14:30 80 17 97 03/29/24 14:30 103/76 03/29/24 14:10 88 03/29/24 14:06 79 18 97 03/29/24 14:01 105/60 03/29/24 13:45 77 16 99 03/29/24 13:33 94 H 21 03/29/24 13:31 100/62 03/29/24 13:21 17 99 03/29/24 12:34 36.8 C 83 18 99/54 L 97 Room Air 03/29/24 12:33 99/54 L 03/29/24 12:33 99/54 L 03/29/24 12:33 87 24 Laboratory Results Abnormal lab results 03/29/24 Range/Units 12:40 RBC 3.55 L (4.70-6.10) M/uL Hgb 10.8 L (14.0-18.0) g/dl Hct 34.8 L (42.0-52.0) % MCHC 31.0 L (32.0-36.0) g/dL RDW Std Deviation 56.7 H (36.4-46.3) fL RDW Coeff of Sammie 15.9 H (11.5-14.5) % Neut # (Auto) 7.64 H (1.40-6.50) K/uL Lymph # (Auto) 1.17 L (1.20-3.40) K/uL Emanuel # (Auto) 1.00 H (0.11-0.59) K/uL Eos # (Auto) 0.67 H (0.00-0.50) K/uL PT 17.8 H (9.0-12.0) Seconds INR 1.7 H (0.9-1.1) APTT 38 H (21-31) Seconds BUN 30 H (6-23) mg/dl Creatinine 1.67 H (0.6-1.4) mg/dl Glucose 135 H (70-99(Fasting)) mg/dl Magnesium 1.4 L (1.7-2.4) mg/dl Troponin I High Sens 35.5 H (0-20) pg/ml Diagnostic Findings Chest X-Ray 03/29/24 12:46 XR chest 1V not portable HISTORY: 78 years-old Male fall acute chest trauma status post fall COMPARISON: 03/25/2024 TECHNIQUE: AP view the chest FINDINGS: Cardiac silhouette is enlarged. Unchanged positioning of the right-sided PICC. Calcified right hilar lymph node. No pneumothorax, pleural effusion or overt pulmonary edema. Calcified granuloma in the right lung base. Mild subsegmental bibasilar atelectasis. Degenerative changes of the shoulders and spine. No acute displaced rib fracture. IMPRESSION: 1. Cardiomegaly without acute process. 2. Mild bibasilar atelectasis. 3. Prior granulomatous disease. ACT 112: Negative or not required by law. The above report was generated using voice recognition software. It may contain grammatical, syntax or spelling errors. Electronically signed by: Geo Clayton M.D. 03/29/2024 1:10 PM Knee X-Ray 03/29/24 13:16 XR knee RT 3V CLINICAL HISTORY: Right knee pain following fall. COMPARISON: Right knee radiographs February 19, 2024. FINDINGS: Alignment of the total right knee arthroplasty is anatomic. There is no periprosthetic fracture or lucency. Right knee soft tissue swelling with suspected small to moderate joint effusion is similar to prior exam. IMPRESSION: 1. Intact total right knee arthroplasty. No periprosthetic fracture or lucency. 2. Right knee soft tissue swelling and a suspected small to moderate right knee joint effusion, similar to prior exam. ACT 112: Negative or not required by law. Electronically signed by: Jong Nascimento M.D. 03/29/2024 2:01 PM ECG Additional Comments: ECG revealed sinus rhythm with frequent PVCs at 86 bpm; QTc 490 Code Status & VTE Plan Code Status Full code VTE Prophylaxis Plan VTE Prophylaxis will be ordered: Yes Supervising Physician Co-Signing Physician Notes I personally saw and examined the patient. I independently reviewed the labs, EKG, imaging, problem list, medication list, past medical history and family history. I verified all lubin points and agree with Kendall Chowdhury PA-C with the following exceptions and/or additions: 78 year old male presents to the ER with ambulatory dysfunction following fall while transferring from his wheelchair to bed last night at [facility]. No loss of consciousness. Ongoing ertapenem with infected prosthetic knee in February diagnosed and treated at [facility] - he reports this has been improving. O/E HS RRR, no murmurs, Chest CTAB, Abdo SNT, Jina in right knee with graze but no cellulitic changes A/P Ambulatory dysfunction - no acute etiology found, follow up repeat blood cultures, renal function actually improving since [facility]. PT/OT, patient wishes to go to [facility] if possible PG Care Time/CCT Total # of Minutes Spent Total Time Spent with Patient: Total time spent is greater than 50% in coordination of care (as documented) at patient's floor/unit and/or counseling patient: [place] [address] INT INP/OBS CARE 3/75MIN Patient Type Established Medical Decision Making High Complexity Diagnoses Ambulatory dysfunction R26.2 JEFFERY (acute kidney injury) N17.9 Hypomagnesemia E83.42 Infection of prosthetic right knee joint T84.53XA Atrial fibrillation I48.91 History of MRSA infection Z86.14
[2024-03-29 16:08] LABS: Appearance Urine Clear (Clear); Bacteria Urine Automated None Seen (None Seen); Bilirubin Urine Negative (Negative); Blood Urine Negative (Negative); Color Urine Dark Yellow; Epithelial Cell Urine Auto 0-2 /hpf (0-2); Glucose Urine UA Negative (Negative); Hyaline Casts Urine Present /lpf (None Presnt); Ketones Urine Negative (Negative); Leukocyte Esterase Urine Trace (Negative); Nitrite Urine Negative (Negative); Protein Urine Negative (Negative); RBC Urine Automated 0-2 /hpf (0-2); Specific Gravity Urine 1.011 (1.000-1.030); Urobilinogen Urine Negative (Negative); WBC Urine Automated 0-5 /hpf (0-5); pH Urine 5.5 (4.5-7.5)
--- OUTSIDE RECORDS SUMMARY | 2024-03-29 20:13 | External Medical Summary ---
Author Name Unknown Address Unknown Organization [id number]:[facility] [place] [address] [place] [address] Laboratory Report Ordering Provider Test Date Status ARSEN GRIFFIN 03/21/2024 06:20:19 Final Observation Date Value Abnormality Reference (Units ) Status CRP, low-sensitivity 03/21/2024 06:20:19 23 Above high normal <=5 (mg/L) Final Performing Location LABORATORY [facility] - [address] [place] [address]
--- OUTSIDE RECORDS SUMMARY | 2024-03-29 20:13 | External Medical Summary ---
Author Name Unknown Address Unknown Organization [id number]:[facility]ATORY [facility] [address] - [address] [place] [address] Laboratory Report Ordering Provider Test Date Status HY,DEPAMPHILIS 03/13/2024 07:03:34 Final Observation Date Value Abnormality Reference (Units ) Status BUN 03/13/2024 07:03:34 50 Above high normal 6-20 (mg/dL) Final Creatinine 03/13/2024 07:03:34 1.8 Above high normal 0.6-1.2 (mg/dL) Final Glomerular filtration rate/1.73 sq M.predicted [Volume Rate/Area] in Serum, Plasma or Blood by Creatinine-based formula (CKD-EPI) 03/13/2024 07:03:34 39 Below low normal >=60 (mL/min) Final eGFR is calculated based on the CKD-EPI 2020 equation. Sodium 03/13/2024 07:03:34 140 135-146 (m mol/L) Final Potassium 03/13/2024 07:03:34 3.8 3.5-5.1 (m mol/L) Final Cl 03/13/2024 07:03:34 98 98-107 (mm ol/L) Final CO2 03/13/2024 07:03:34 32 22-32 (mmo l/L) Final Anion gap 03/13/2024 07:03:34 10 7-15 (mmol /L) Final Glucose 03/13/2024 07:03:34 106 70-120 (mg /dL) Final Calcium 03/13/2024 07:03:34 8.8 8.4-10.2 ( mg/dL) Final Performing Location LABORATORY [facility] [address] [place] [id number]
--- OUTSIDE RECORDS SUMMARY | 2024-03-29 20:13 | External Medical Summary ---
Author Name Unknown Address Unknown Organization K09:[facility]ATORY [facility] [address] - [address] [place] [address] Laboratory Report Ordering Provider Test Date Status ARSEN GRIFFIN 03/21/2024 06:20:19 Final Observation Date Value Abnormality Reference (Units ) Status BUN 03/21/2024 06:20:19 63 Above high normal 6-20 (mg/dL) Final Creatinine 03/21/2024 06:20:19 2.2 Above high normal 0.6-1.2 (mg/dL) Final Glomerular filtration rate/1.73 sq M.predicted [Volume Rate/Area] in Serum, Plasma or Blood by Creatinine-based formula (CKD-EPI) 03/21/2024 06:20:19 30 Below low normal >=60 (mL/min) Final eGFR is calculated based on the CKD-EPI 2020 equation. Sodium 03/21/2024 06:20:19 141 135-146 (m mol/L) Final Potassium 03/21/2024 06:20:19 4.1 3.5-5.1 (m mol/L) Final Cl 03/21/2024 06:20:19 99 98-107 (mm ol/L) Final CO2 03/21/2024 06:20:19 31 22-32 (mmo l/L) Final Anion gap 03/21/2024 06:20:19 11 7-15 (mmol /L) Final Glucose 03/21/2024 06:20:19 88 70-120 (mg /dL) Final Albumin 03/21/2024 06:20:19 2.8 Below low normal 3.8 -5.0 (g/dL) Final AST (Aspartate aminotransferase) 03/21/2024 06:20:19 23 10-50 (U/L) Fin al Alk Phos 03/21/2024 06:20:19 73 35-130 (U/ L) Final Bilirubin, Total 03/21/2024 06:20:19 0.2 <=1 .2 (mg/dL) Final Calcium 03/21/2024 06:20:19 8.7 8.4-10.2 ( mg/dL) Final Protein 03/21/2024 06:20:19 5.2 Below low normal 6.0 -8.3 (g/dL) Final ALT (Alanine aminotransferase) 03/21/2024 06:20:19 16 10-50 (U/L) Mahesh richard Performing Location LABORATORY [facility] [address] [place] [address]
--- OUTSIDE RECORDS SUMMARY | 2024-03-29 20:13 | External Medical Summary ---
Author Name Unknown Address Unknown Organization K01:LAB[facility]ATORY [facility] [place] - [address] [place] [address] Laboratory Report Ordering Provider Test Date Status ARSEN GRIFFIN 03/07/2024 09:06:52 Final Observation Date Value Abnormality Reference (Units ) Status Erythrocyte sedimentation rate by Photometric method 03/07/2024 09:06:52 42 Above high normal <20 (mm/hour) Final Performing Location LABORATORY [facility] [place] - [address] [place] [address]
--- OUTSIDE RECORDS SUMMARY | 2024-03-29 20:13 | External Medical Summary ---
Author Name Unknown Address Unknown Organization K09:LABORATORY [place] [address] Laboratory Report Ordering Provider Test Date Status ARSEN GRIFFIN 03/14/2024 06:43:27 Final Observation Date Value Abnormality Reference (Units ) Status WBC, Total 03/14/2024 06:43:27 9.72 4.00-10.8 0 (K/uL) Final RBC 03/14/2024 06:43:27 3.02 4.50-5.25 (M/uL) Final Hemoglobin 03/14/2024 06:43:27 9.5 Below low normal 14 .0-16.8 (g/dL) Final HCT 03/14/2024 06:43:27 30.2 Below low normal 40. 0-48.4 (%) Final MCV 03/14/2024 06:43:27 100.0 82.0-99.5 (fL) Final MCH 03/14/2024 06:43:27 31.5 27.0-34.0 (pg) Final MCHC 03/14/2024 06:43:27 31.5 32.0-36.0 (g/dL) Final RDW 03/14/2024 06:43:27 15.4 11.5-15.5 (%) Final Platelets 03/14/2024 06:43:27 282 140-400 (K /uL) Final MPV 03/14/2024 06:43:27 10.3 6.6-11.1 ( fL) Final Performing Location LABORATORY [place] [address]
--- OUTSIDE RECORDS SUMMARY | 2024-03-29 20:13 | External Medical Summary ---
Author Name Unknown Address Unknown Organization K09:[facility] [place] [address] Laboratory Report Ordering Provider Test Date Status ARSEN GRIFFIN 03/18/2024 06:48:22 Final acute renal failure Observation Date Value Abnormality Reference (Units ) Status RBC, Urine 03/18/2024 06:48:22 50+ Abnormal 0-2 (/HPF) Final WBC, Urine 03/18/2024 06:48:22 3-5 Abnormal 0-2 (/HPF) Final Bacteria [#/area] in Urine sediment by Microscopy high power field 03/18/2024 06:48:22 26-50 Abnormal 0-25 (/HPF) Final RBC casts [#/area] in Urine sediment by Microscopy low power field 03/18/2024 06:48:22 5-9 Abnormal None (/LPF) Final Performing Location [facility] [place] [address]
--- OUTSIDE RECORDS SUMMARY | 2024-03-29 20:13 | External Medical Summary ---
Author Name Unknown Address Unknown Organization K09:[facility] [place] [address] Laboratory Report Ordering Provider Test Date Status ARSEN GRIFFIN 03/03/2024 08:16:14 Final Observation Date Value Abnormality Reference (Units ) Status WBC, Total 03/03/2024 08:16:14 9.18 4.00-10.8 0 (K/uL) Final RBC 03/03/2024 08:16:14 2.41 4.50-5.25 (M/uL) Final Hemoglobin 03/03/2024 08:16:14 7.9 Below low normal 14 .0-16.8 (g/dL) Final HCT 03/03/2024 08:16:14 24.5 Below low normal 40. 0-48.4 (%) Final MCV 03/03/2024 08:16:14 101.7 82.0-99.5 (fL) Final MCH 03/03/2024 08:16:14 32.8 27.0-34.0 (pg) Final MCHC 03/03/2024 08:16:14 32.2 32.0-36.0 (g/dL) Final RDW 03/03/2024 08:16:14 14.9 11.5-15.5 (%) Final Platelets 03/03/2024 08:16:14 204 140-400 (K /uL) Final MPV 03/03/2024 08:16:14 10.0 6.6-11.1 ( fL) Final Performing Location [facility] [place] [address]
--- OUTSIDE RECORDS SUMMARY | 2024-03-29 20:13 | External Medical Summary ---
Author Name Unknown Address Unknown Organization K09:[facility] [place] [address] Laboratory Report Ordering Provider Test Date Status ARSEN GRIFFIN 03/18/2024 06:31:56 Final Observation Date Value Abnormality Reference (Units ) Status Magnesium 03/18/2024 06:31:56 1.7 1.5-2.6 (m g/dL) Final Performing Location [facility] [place] [address]
--- OUTSIDE RECORDS SUMMARY | 2024-03-29 20:13 | External Medical Summary ---
Author Name Unknown Address Unknown Organization K01:[facility]AT[facility] [place] - [address] [place] [address] Laboratory Report Ordering Provider Test Date Status ARSEN GRIFFIN 03/07/2024 06:18:37 Final Observation Date Value Abnormality Reference (Units ) Status CRP, low-sensitivity 03/07/2024 06:18:37 83 Above high normal <=5 (mg/L) Final Performing Location [facility] - [address] [place] [address]
--- OUTSIDE RECORDS SUMMARY | 2024-03-29 20:13 | External Medical Summary ---
Author Name Unknown Address Unknown Organization K09:[facility] [place] [address] Laboratory Report Ordering Provider Test Date Status ARSEN GRIFFIN 03/23/2024 06:22:28 Final Observation Date Value Abnormality Reference (Units ) Status BUN 03/23/2024 06:22:28 49 Above high normal 6-20 (mg/dL) Final Creatinine 03/23/2024 06:22:28 1.8 Above high normal 0.6-1.2 (mg/dL) Final Glomerular filtration rate/1.73 sq M.predicted [Volume Rate/Area] in Serum, Plasma or Blood by Creatinine-based formula (CKD-EPI) 03/23/2024 06:22:28 38 Below low normal >=60 (mL/min) Final eGFR is calculated based on the CKD-EPI 2020 equation. Sodium 03/23/2024 06:22:28 140 135-146 (m mol/L) Final Potassium 03/23/2024 06:22:28 4.1 3.5-5.1 (m mol/L) Final Cl 03/23/2024 06:22:28 99 98-107 (mm ol/L) Final CO2 03/23/2024 06:22:28 31 22-32 (mmo l/L) Final Anion gap 03/23/2024 06:22:28 10 7-15 (mmol /L) Final Glucose 03/23/2024 06:22:28 93 70-120 (mg /dL) Final Calcium 03/23/2024 06:22:28 8.7 8.4-10.2 ( mg/dL) Final Performing Location [facility] [place] [address]
--- OUTSIDE RECORDS SUMMARY | 2024-03-29 20:13 | External Medical Summary ---
Author Name Unknown Address Unknown Organization K01:[facility] [place] - [address] [place] [address] Laboratory Report Ordering Provider Test Date Status ARSEN GRIFFIN 03/14/2024 06:43:27 Final Observation Date Value Abnormality Reference (Units ) Status Erythrocyte sedimentation rate by Photometric method 03/14/2024 06:43:27 55 Above high normal <20 (mm/hour) Final Performing Location [facility] [place] - [address] [place] [address]
--- OUTSIDE RECORDS SUMMARY | 2024-03-29 20:13 | External Medical Summary ---
Author Name Unknown Address Unknown Organization K09:[facility] [place] [address] Laboratory Report Ordering Provider Test Date Status ARSEN GRIFFIN 03/21/2024 06:20:19 Final Observation Date Value Abnormality Reference (Units ) Status WBC, Total 03/21/2024 06:20:19 7.95 4.00-10.8 0 (K/uL) Final RBC 03/21/2024 06:20:19 2.74 4.50-5.25 (M/uL) Final Hemoglobin 03/21/2024 06:20:19 8.5 Below low normal 14 .0-16.8 (g/dL) Final HCT 03/21/2024 06:20:19 27.3 Below low normal 40. 0-48.4 (%) Final MCV 03/21/2024 06:20:19 99.6 82.0-99.5 (fL) Final MCH 03/21/2024 06:20:19 31.0 27.0-34.0 (pg) Final MCHC 03/21/2024 06:20:19 31.1 32.0-36.0 (g/dL) Final RDW 03/21/2024 06:20:19 15.8 11.5-15.5 (%) Final Platelets 03/21/2024 06:20:19 208 140-400 (K /uL) Final MPV 03/21/2024 06:20:19 10.3 6.6-11.1 ( fL) Final Performing Location [facility] [place] [address]
--- OUTSIDE RECORDS SUMMARY | 2024-03-29 20:13 | External Medical Summary ---
Author Name Unknown Address Unknown Organization [id number]:[facility] [address] - [address] [place] [address] Laboratory Report Ordering Provider Test Date Status ARSEN GRIFFIN 03/19/2024 06:40:00 Final Observation Date Value Abnormality Reference (Units ) Status WBC, Total 03/19/2024 06:40:00 8.58 4.00-10.8 0 (K/uL) Final RBC 03/19/2024 06:40:00 2.73 4.50-5.25 (M/uL) Final Hemoglobin 03/19/2024 06:40:00 8.5 Below low normal 14 .0-16.8 (g/dL) Final HCT 03/19/2024 06:40:00 26.9 Below low normal 40. 0-48.4 (%) Final MCV 03/19/2024 06:40:00 98.5 82.0-99.5 (fL) Final MCH 03/19/2024 06:40:00 31.1 27.0-34.0 (pg) Final MCHC 03/19/2024 06:40:00 31.6 32.0-36.0 (g/dL) Final RDW 03/19/2024 06:40:00 15.3 11.5-15.5 (%) Final Platelets 03/19/2024 06:40:00 203 140-400 (K /uL) Final MPV 03/19/2024 06:40:00 10.4 6.6-11.1 ( fL) Final Performing Location [facility] [address] [place] [address]
--- OUTSIDE RECORDS SUMMARY | 2024-03-29 20:13 | External Medical Summary ---
Author Name Unknown Address Unknown Organization K01:LAB[facility]ATORY [facility] [place] - [address] [place] [address] Laboratory Report Ordering Provider Test Date Status ARSEN GRIFFIN 03/14/2024 06:43:27 Final Observation Date Value Abnormality Reference (Units ) Status CRP, low-sensitivity 03/14/2024 06:43:27 48 Above high normal <=5 (mg/L) Final Performing Location [facility] - [address] [place] [address]
--- OUTSIDE RECORDS SUMMARY | 2024-03-29 20:13 | External Medical Summary ---
Author Name Unknown Address Unknown Organization K01:[facility] [place] [address] [place] [address] Laboratory Report Ordering Provider Test Date Status ARSEN GRIFFIN 03/03/2024 06:57:31 Final Observation Date Value Abnormality Reference (Units ) Status Erythrocyte sedimentation rate by Photometric method 03/03/2024 06:57:31 36 Above high normal <20 (mm/hour) Final Performing Location [facility] [place] [address] [place] [address]
--- OUTSIDE RECORDS SUMMARY | 2024-03-29 20:13 | External Medical Summary ---
Author Name UNSPECIFIED Address Unknown Organization [facility] History of Encounters Reason for Assessment: Resumption of car e (after inpatient stay) Inpatient discharge facility: Past 14 Da ys: Discharged From Short Stay Acute Hospital Most Recent Inpatient Discharge Date: Functional Assessment Patient Living Situation: Patient Lives Alone: Around the clock When Dyspneic: With minimal exertio n (e.g., while eating, talking, or performing other ADLs) or with agitation Bowel Incontinence Frequency: Very rarel y or never has bowel incontinence When Anxious (Reported or Observed): Les s often than daily Cognitive and Behavioral and Psychiatric Symptoms: None Current Ability: Bathing: Unable to use the shower or tub, but able to participate in bathing self in bed, at the sink, in bedside chair, or on commode, with the assistance or supervision of another person throughout the bath. Current Ability: Ambulation: Able to wal k only with the supervision or assistance of another person at all times. 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
--- OUTSIDE RECORDS SUMMARY | 2024-03-29 20:13 | External Medical Summary ---
Author Name Unknown Address Unknown Organization K09:[facility] [place] [address] Laboratory Report Ordering Provider Test Date Status ARSEN GRIFFIN 03/17/2024 06:12:07 Final Observation Date Value Abnormality Reference (Units ) Status BUN 03/17/2024 06:12:07 67 Above high normal 6-20 (mg/dL) Final Creatinine 03/17/2024 06:12:07 2.4 Above high normal 0.6-1.2 (mg/dL) Final Glomerular filtration rate/1.73 sq M.predicted [Volume Rate/Area] in Serum, Plasma or Blood by Creatinine-based formula (CKD-EPI) 03/17/2024 06:12:07 27 Below low normal >=60 (mL/min) Final eGFR is calculated based on the CKD-EPI 2020 equation. Sodium 03/17/2024 06:12:07 138 135-146 (m mol/L) Final Potassium 03/17/2024 06:12:07 4.1 3.5-5.1 (m mol/L) Final Cl 03/17/2024 06:12:07 96 Below low normal 98- 107 (mmol/L) Final CO2 03/17/2024 06:12:07 31 22-32 (mmo l/L) Final Anion gap 03/17/2024 06:12:07 11 7-15 (mmol /L) Final Glucose 03/17/2024 06:12:07 100 70-120 (mg /dL) Final Calcium 03/17/2024 06:12:07 9.0 8.4-10.2 ( mg/dL) Final Performing Location [facility] [place] [address]
--- OUTSIDE RECORDS SUMMARY | 2024-03-29 20:13 | External Medical Summary ---
Author Name Unknown Address Unknown Organization K09:[facility] [place] [address] Laboratory Report Ordering Provider Test Date Status ARSEN GRIFFIN 03/18/2024 06:31:56 Final Observation Date Value Abnormality Reference (Units ) Status BUN 03/18/2024 06:31:56 71 Above high normal 6-20 (mg/dL) Final Creatinine 03/18/2024 06:31:56 2.5 Above high normal 0.6-1.2 (mg/dL) Final Glomerular filtration rate/1.73 sq M.predicted [Volume Rate/Area] in Serum, Plasma or Blood by Creatinine-based formula (CKD-EPI) 03/18/2024 06:31:56 26 Below low normal >=60 (mL/min) Final eGFR is calculated based on the CKD-EPI 2020 equation. Sodium 03/18/2024 06:31:56 140 135-146 (m mol/L) Final Potassium 03/18/2024 06:31:56 3.7 3.5-5.1 (m mol/L) Final Cl 03/18/2024 06:31:56 97 Below low normal 98- 107 (mmol/L) Final CO2 03/18/2024 06:31:56 32 22-32 (mmo l/L) Final Anion gap 03/18/2024 06:31:56 11 7-15 (mmol /L) Final Glucose 03/18/2024 06:31:56 101 70-120 (mg /dL) Final Calcium 03/18/2024 06:31:56 8.8 8.4-10.2 ( mg/dL) Final Performing Location [facility] [place] [address]
--- OUTSIDE RECORDS SUMMARY | 2024-03-29 20:13 | External Medical Summary ---
Author Name Unknown Address Unknown Organization K09:[facility] [place] [address] [place] [address] Laboratory Report Ordering Provider Test Date Status ARSEN GRIFFIN 03/03/2024 08:16:14 Final Observation Date Value Abnormality Reference (Units ) Status Nucleated erythrocytes/100 leukocytes [Ratio] in Blood by Automated count 03/03/2024 08:16:14 Final Performing Location [facility] [place] [address]
--- OUTSIDE RECORDS SUMMARY | 2024-03-29 20:13 | External Medical Summary ---
Author Name Unknown Address Unknown Organization K0G:LABORATORY [facility] [address] [place] [address] Laboratory Report Ordering Provider Test Date Status SHADE SCHMITT 03/12/2024 06:57:00 Final Observation Date Value Abnormality Reference (Units ) Status BUN 03/12/2024 06:57:00 46 Above high normal 6-20 (mg/dL) Final Creatinine 03/12/2024 06:57:00 1.7 Above high normal 0.6-1.2 (mg/dL) Final Glomerular filtration rate/1.73 sq M.predicted [Volume Rate/Area] in Serum, Plasma or Blood by Creatinine-based formula (CKD-EPI) 03/12/2024 06:57:00 41 Below low normal >=60 (mL/min) Final eGFR is calculated based on the CKD-EPI 2020 equation. Sodium 03/12/2024 06:57:00 140 135-146 (m mol/L) Final Potassium 03/12/2024 06:57:00 3.9 3.5-5.1 (m mol/L) Final Cl 03/12/2024 06:57:00 97 Below low normal 98- 107 (mmol/L) Final CO2 03/12/2024 06:57:00 30 22-32 (mmo l/L) Final Anion gap 03/12/2024 06:57:00 13 7-15 (mmol /L) Final Glucose 03/12/2024 06:57:00 113 70-120 (mg /dL) Final Calcium 03/12/2024 06:57:00 9.1 8.4-10.2 ( mg/dL) Final Performing Location [facility] [place] [address] - [address] [place] [address]
--- OUTSIDE RECORDS SUMMARY | 2024-03-29 20:13 | External Medical Summary ---
Author Name Unknown Address Unknown Organization K09:[facility]AT[facility] [address] [place] [address] Laboratory Report Ordering Provider Test Date Status ARSEN GRIFFIN 03/03/2024 08:09:19 Final Observation Date Value Abnormality Reference (Units ) Status BUN 03/03/2024 08:09:19 27 Above high normal 6-20 (mg/dL) Final Creatinine 03/03/2024 08:09:19 1.0 0.6-1.2 (mg/dL) Final Glomerular filtration rate/1.73 sq M.predicted [Volume Rate/Area] in Serum, Plasma or Blood by Creatinine-based formula (CKD-EPI) 03/03/2024 08:09:19 79 >=60 (mL/min) Final eGFR is calculated based on the CKD-EPI 2020 equation. Sodium 03/03/2024 08:09:19 138 135-146 (m mol/L) Final Potassium 03/03/2024 08:09:19 3.9 3.5-5.1 (m mol/L) Final Cl 03/03/2024 08:09:19 103 98-107 (mm ol/L) Final CO2 03/03/2024 08:09:19 28 22-32 (mmo l/L) Final Anion gap 03/03/2024 08:09:19 7 7-15 (mmol /L) Final Glucose 03/03/2024 08:09:19 96 70-120 (mg /dL) Final Albumin 03/03/2024 08:09:19 2.5 Below low normal 3.8 -5.0 (g/dL) Final AST (Aspartate aminotransferase) 03/03/2024 08:09:19 24 10-50 (U/L) Fin al Alk Phos 03/03/2024 08:09:19 78 35-130 (U/ L) Final Bilirubin, Total 03/03/2024 08:09:19 0.3 <=1 .2 (mg/dL) Final Calcium 03/03/2024 08:09:19 9.3 8.4-10.2 ( mg/dL) Final Protein 03/03/2024 08:09:19 4.6 Below low normal 6.0 -8.3 (g/dL) Final ALT (Alanine aminotransferase) 03/03/2024 08:09:19 21 10-50 (U/L) Mahesh richard Performing Location [facility] [address] [place] [address]
--- OUTSIDE RECORDS SUMMARY | 2024-03-29 20:13 | External Medical Summary ---
Author Name Unknown Address Unknown Organization K09:[facility] [address] [place] [address] Laboratory Report Ordering Provider Test Date Status ARSEN GRIFFIN 03/21/2024 06:20:19 Final Observation Date Value Abnormality Reference (Units ) Status SYNC LEUKOCYTES IN BLOOD BY AUTOMATED COUNT 03/21/2024 06:20:19 7.95 4.00-10.80 (K/uL) Final Segs 03/21/2024 06:20:19 66.0 40.0-75.0 (%) Final Lymphs % 03/21/2024 06:20:19 14.3 Below low normal 18.0-42.0 (%) Final Monos 03/21/2024 06:20:19 15.3 Above high normal 1.0-11.0 (%) Final Eosinophils 03/21/2024 06:20:19 3.9 0.0-6.0 (%) Final Basos 03/21/2024 06:20:19 0.5 0.0-2.0 (%) Final Absolute Segs 03/21/2024 06:20:19 5.24 1.80-7.70 (K/uL) Final Lymphs, absolute 03/21/2024 06:20:19 1.14 1.00-4.80 (K/ul) Final Monos, Abs 03/21/2024 06:20:19 1.22 Above high normal 0.00-1.10 (K/uL) Final Eos, Abs 03/21/2024 06:20:19 0.31 0.00-0.70 (K/uL) Final Basos, Abs 03/21/2024 06:20:19 0.04 0.00-0.20 (K/uL) Final Performing Location [facility] [address] [place] [address]
--- OUTSIDE RECORDS SUMMARY | 2024-03-29 20:13 | External Medical Summary ---
Author Name Unknown Address Unknown Organization K01:LABORATORY [facility] [place] - [address] [place] [address] Laboratory Report Ordering Provider Test Date Status ARSEN GRIFFIN 03/21/2024 06:20:19 Final Observation Date Value Abnormality Reference (Units ) Status Erythrocyte sedimentation rate by Photometric method 03/21/2024 06:20:19 38 Above high normal <20 (mm/hour) Final Performing Location LABORATORY [facility] [place] - [address] [place] [address]
--- OUTSIDE RECORDS SUMMARY | 2024-03-29 20:13 | External Medical Summary ---
Author Name Unknown Address Unknown Organization K09:[facility] [place] [address] Laboratory Report Ordering Provider Test Date Status ARSEN GRIFFIN 03/18/2024 06:48:22 Final acute renal failure Observation Date Value Abnormality Reference (Units ) Status Color of Urine by Auto 03/18/2024 06:48:22 Yellow Light Yellow, Yellow, Dark Yellow Final Clarity, Urine 03/18/2024 06:48:22 Cloudy Abnormal Clear Final Glucose [Mass/volume] in Urine by Automated test strip 03/18/2024 06:48:22 Negative Negative (mg/dL) Final Bilirubin.total [Presence] in Urine by Automated test strip 03/18/2024 06:48:22 Negative Negative Final Ketones [Mass/volume] in Urine by Automated test strip 03/18/2024 06:48:22 Negative Negative (mg/dL) Final Specific gravity, Urine 03/18/2024 06:48:22 1.020 1.003-1.030 Final Hemoglobin [Presence] in Urine by Automated test strip 03/18/2024 06:48:22 Large Abnormal Negative Final pH, Urine 03/18/2024 06:48:22 5.5 5.0-7.5 (Units) Final Protein [Mass/volume] in Urine by Automated test strip 03/18/2024 06:48:22 100 Abnormal Negative (mg/dL) Final Urobilinogen [Mass/volume] in Urine by Automated test strip 03/18/2024 06:48:22 0.2 0.2, 1.0 (mg/dL) Final Nitrite [Presence] in Urine by Automated test strip 03/18/2024 06:48:22 Negative Negative Final Leukocyte esterase [Presence] in Urine by Automated test strip 03/18/2024 06:48:22 Negative Negative Final Performing Location [facility] [place] [address]
--- OUTSIDE RECORDS SUMMARY | 2024-03-29 20:13 | External Medical Summary ---
Author Name Unknown Address Unknown Organization K0G:LABORATORY [place] [address] - [address] [place] [address] Laboratory Report Ordering Provider Test Date Status ARSEN GRIFFIN 03/19/2024 06:40:00 Final Observation Date Value Abnormality Reference (Units ) Status BUN 03/19/2024 06:40:00 67 Above high normal 6-20 (mg/dL) Final Creatinine 03/19/2024 06:40:00 2.5 Above high normal 0.6-1.2 (mg/dL) Final Glomerular filtration rate/1.73 sq M.predicted [Volume Rate/Area] in Serum, Plasma or Blood by Creatinine-based formula (CKD-EPI) 03/19/2024 06:40:00 26 Below low normal >=60 (mL/min) Final eGFR is calculated based on the CKD-EPI 2020 equation. Sodium 03/19/2024 06:40:00 138 135-146 (m mol/L) Final Potassium 03/19/2024 06:40:00 4.1 3.5-5.1 (m mol/L) Final Cl 03/19/2024 06:40:00 96 Below low normal 98- 107 (mmol/L) Final CO2 03/19/2024 06:40:00 33 Above high normal 22 -32 (mmol/L) Final Anion gap 03/19/2024 06:40:00 9 7-15 (mmol /L) Final Glucose 03/19/2024 06:40:00 93 70-120 (mg /dL) Final Calcium 03/19/2024 06:40:00 8.8 8.4-10.2 ( mg/dL) Final Performing Location LABORATORY [facility] [address] [place] [address]
--- OUTSIDE RECORDS SUMMARY | 2024-03-29 20:13 | External Medical Summary ---
Author Name Unknown Address Unknown Organization K0G:LAB[facility]ATORY [facility] [address] - [address] [place] [address] Laboratory Report Ordering Provider Test Date Status HY,DEPAMPHILIS 03/13/2024 07:03:34 Final Observation Date Value Abnormality Reference (Units ) Status Albumin 03/13/2024 07:03:34 2.7 Below low normal 3.8-5.0 (g/dL) Final AST (Aspartate aminotransferase) 03/13/2024 07:03:34 21 10-50 (U/L) Final Alk Phos 03/13/2024 07:03:34 78 35-130 (U/L) Final ALT (Alanine aminotransferase) 03/13/2024 07:03:34 16 10-50 (U/L) Final Bilirubin, Total 03/13/2024 07:03:34 0.3 <=1.2 (mg/dL) Final Bilirubin, Direct 03/13/2024 07:03:34 <0.2 0.0-0.3 (mg/dL) Final Protein 03/13/2024 07:03:34 5.2 Below low normal 6.0-8.3 (g/dL) Final Performing Location [facility] [address] [place] [address]
--- OUTSIDE RECORDS SUMMARY | 2024-03-29 20:13 | External Medical Summary ---
Author Name Unknown Address Unknown Organization K09:[facility] [place] [address] Laboratory Report Ordering Provider Test Date Status ARSEN GRIFFIN 03/03/2024 08:16:14 Final Observation Date Value Abnormality Reference (Units ) Status SYNC LEUKOCYTES IN BLOOD BY AUTOMATED COUNT 03/03/2024 08:16:14 9.18 4.00-10.80 (K/uL) Final Segs 03/03/2024 08:16:14 75.4 Above high normal 40.0-75.0 (%) Final Lymphs % 03/03/2024 08:16:14 8.9 Below low normal 18.0-42.0 (%) Final Monos 03/03/2024 08:16:14 11.5 Above high normal 1.0-11.0 (%) Final Eosinophils 03/03/2024 08:16:14 3.8 0.0-6.0 (%) Final Basos 03/03/2024 08:16:14 0.4 0.0-2.0 (%) Final Absolute Segs 03/03/2024 08:16:14 6.91 1.80-7.70 (K/uL) Final Lymphs, absolute 03/03/2024 08:16:14 0.82 Below low normal 1.00-4.80 (K/ul) Final Monos, Abs 03/03/2024 08:16:14 1.06 0.00-1.10 (K/uL) Final Eos, Abs 03/03/2024 08:16:14 0.35 0.00-0.70 (K/uL) Final Basos, Abs 03/03/2024 08:16:14 0.04 0.00-0.20 (K/uL) Final Performing Location [facility] [place] [address]
--- OUTSIDE RECORDS SUMMARY | 2024-03-29 20:13 | External Medical Summary ---
Author Name Unknown Address Unknown Organization K09:[facility]ATORY [facility] [address] [place] [address] Laboratory Report Ordering Provider Test Date Status ARSEN GRIFFIN 03/14/2024 06:43:27 Final Observation Date Value Abnormality Reference (Units ) Status SYNC LEUKOCYTES IN BLOOD BY AUTOMATED COUNT 03/14/2024 06:43:27 9.72 4.00-10.80 (K/uL) Final Neutrophils/100 leukocytes in Blood by Manual count 03/14/2024 06:43:27 70.0 40.0-75.0 (%) Final Lymphocytes/100 leukocytes in Blood by Manual count 03/14/2024 06:43:27 11.0 Below low normal 18.0-42.0 (%) Final Monocytes/100 leukocytes in Blood by Manual count 03/14/2024 06:43:27 11.0 1.0-11.0 (%) Final Eosinophils/100 leukocytes in Blood by Manual count 03/14/2024 06:43:27 6.0 0.0-6.0 (%) Final Metamyelocytes/100 leukocytes in Blood by Manual count 03/14/2024 06:43:27 2.0 Above high normal <=0.0 (%) Final Neutrophils [#/volume] in Blood by Manual count 03/14/2024 06:43:27 6.80 1.80-7.70 (K/uL) Final Lymphocytes [#/volume] in Blood by Manual count 03/14/2024 06:43:27 1.07 1.00-4.80 (K/uL) Final Monocytes [#/volume] in Blood by Manual count 03/14/2024 06:43:27 1.07 0.00-1.10 (K/uL) Final Eosinophils [#/volume] in Blood by Manual count 03/14/2024 06:43:27 0.58 0.00-0.70 (K/uL) Final Metamyelocytes [#/volume] in Blood by Manual count 03/14/2024 06:43:27 0.19 Above high normal <=0.00 (K/uL) Final Nucleated erythrocytes/100 leukocytes [Ratio] in Blood by Automated count 03/14/2024 06:43:27 Final Performing Location [facility]ORY [facility] [address] [place] [address]
--- OUTSIDE RECORDS SUMMARY | 2024-03-29 20:13 | External Medical Summary ---
Author Name Unknown Address Unknown Organization [id number]:[facility] [address] [place] [address] Laboratory Report Ordering Provider Test Date Status ARSEN GRIFFIN 03/14/2024 06:43:27 Final Observation Date Value Abnormality Reference (Units ) Status BUN 03/14/2024 06:43:27 53 Above high normal 6-20 (mg/dL) Final Creatinine 03/14/2024 06:43:27 1.8 Above high normal 0.6-1.2 (mg/dL) Final Glomerular filtration rate/1.73 sq M.predicted [Volume Rate/Area] in Serum, Plasma or Blood by Creatinine-based formula (CKD-EPI) 03/14/2024 06:43:27 37 Below low normal >=60 (mL/min) Final eGFR is calculated based on the CKD-EPI 2020 equation. Sodium 03/14/2024 06:43:27 139 135-146 (m mol/L) Final Potassium 03/14/2024 06:43:27 4.1 3.5-5.1 (m mol/L) Final Cl 03/14/2024 06:43:27 97 Below low normal 98- 107 (mmol/L) Final CO2 03/14/2024 06:43:27 31 22-32 (mmo l/L) Final Anion gap 03/14/2024 06:43:27 11 7-15 (mmol /L) Final Glucose 03/14/2024 06:43:27 111 70-120 (mg /dL) Final Albumin 03/14/2024 06:43:27 2.9 Below low normal 3.8 -5.0 (g/dL) Final AST (Aspartate aminotransferase) 03/14/2024 06:43:27 25 10-50 (U/L) Fin al Alk Phos 03/14/2024 06:43:27 81 35-130 (U/ L) Final Bilirubin, Total 03/14/2024 06:43:27 0.3 <=1 .2 (mg/dL) Final Calcium 03/14/2024 06:43:27 9.0 8.4-10.2 ( mg/dL) Final Protein 03/14/2024 06:43:27 5.4 Below low normal 6.0 -8.3 (g/dL) Final ALT (Alanine aminotransferase) 03/14/2024 06:43:27 17 10-50 (U/L) Mahesh richard Performing Location [facility] [address] [place] [address]
--- OUTSIDE RECORDS SUMMARY | 2024-03-29 20:13 | External Medical Summary ---
Author Name Unknown Address Unknown Organization [id number]:[facility] [place] [address] [place] [address] Laboratory Report Ordering Provider Test Date Status ARSEN GRIFFIN 03/03/2024 06:57:31 Final Observation Date Value Abnormality Reference (Units ) Status CRP, low-sensitivity 03/03/2024 06:57:31 68 Above high normal <=5 (mg/L) Final Performing Location [facility] - [address] [place] [address]
--- OUTSIDE RECORDS SUMMARY | 2024-03-29 20:13 | External Medical Summary ---
Author Name Unknown Address Unknown Organization K09:[facility] [place] [address] Laboratory Report Ordering Provider Test Date Status ARSEN GRIFFIN 03/15/2024 06:19:22 Final Observation Date Value Abnormality Reference (Units ) Status BUN 03/15/2024 06:19:22 62 Above high normal 6-20 (mg/dL) Final Creatinine 03/15/2024 06:19:22 2.0 Above high normal 0.6-1.2 (mg/dL) Final Glomerular filtration rate/1.73 sq M.predicted [Volume Rate/Area] in Serum, Plasma or Blood by Creatinine-based formula (CKD-EPI) 03/15/2024 06:19:22 33 Below low normal >=60 (mL/min) Final eGFR is calculated based on the CKD-EPI 2020 equation. Sodium 03/15/2024 06:19:22 136 135-146 (m mol/L) Final Potassium 03/15/2024 06:19:22 3.9 3.5-5.1 (m mol/L) Final Cl 03/15/2024 06:19:22 94 Below low normal 98- 107 (mmol/L) Final CO2 03/15/2024 06:19:22 32 22-32 (mmo l/L) Final Anion gap 03/15/2024 06:19:22 10 7-15 (mmol /L) Final Glucose 03/15/2024 06:19:22 107 70-120 (mg /dL) Final Calcium 03/15/2024 06:19:22 9.0 8.4-10.2 ( mg/dL) Final Performing Location [facility] [place] [address]
--- OUTSIDE RECORDS SUMMARY | 2024-03-29 20:13 | External Medical Summary ---
Author Name Unknown Address Unknown Organization K09:[facility] [place] [address] [place] [address] Laboratory Report Ordering Provider Test Date Status ARSEN GRIFFIN 03/07/2024 06:18:37 Final Observation Date Value Abnormality Reference (Units ) Status WBC, Total 03/07/2024 06:18:37 8.05 4.00-10.8 0 (K/uL) Final RBC 03/07/2024 06:18:37 2.52 4.50-5.25 (M/uL) Final Hemoglobin 03/07/2024 06:18:37 8.1 Below low normal 14 .0-16.8 (g/dL) Final HCT 03/07/2024 06:18:37 25.6 Below low normal 40. 0-48.4 (%) Final MCV 03/07/2024 06:18:37 101.6 82.0-99.5 (fL) Final MCH 03/07/2024 06:18:37 32.1 27.0-34.0 (pg) Final MCHC 03/07/2024 06:18:37 31.6 32.0-36.0 (g/dL) Final RDW 03/07/2024 06:18:37 15.2 11.5-15.5 (%) Final Platelets 03/07/2024 06:18:37 233 140-400 (K /uL) Final MPV 03/07/2024 06:18:37 10.1 6.6-11.1 ( fL) Final Performing Location [facility] [place] [place] [address]
--- OUTSIDE RECORDS SUMMARY | 2024-03-29 20:13 | External Medical Summary ---
Author Name Unknown Address Unknown Organization K09:[facility] [address] [place] [address] Laboratory Report Ordering Provider Test Date Status ARSEN GRIFFIN 03/07/2024 06:18:37 Final Observation Date Value Abnormality Reference (Units ) Status BUN 03/07/2024 06:18:37 25 Above high normal 6-20 (mg/dL) Final Creatinine 03/07/2024 06:18:37 1.0 0.6-1.2 (mg/dL) Final Glomerular filtration rate/1.73 sq M.predicted [Volume Rate/Area] in Serum, Plasma or Blood by Creatinine-based formula (CKD-EPI) 03/07/2024 06:18:37 73 >=60 (mL/min) Final eGFR is calculated based on the CKD-EPI 2020 equation. Sodium 03/07/2024 06:18:37 139 135-146 (m mol/L) Final Potassium 03/07/2024 06:18:37 4.6 3.5-5.1 (m mol/L) Final Cl 03/07/2024 06:18:37 104 98-107 (mm ol/L) Final CO2 03/07/2024 06:18:37 26 22-32 (mmo l/L) Final Anion gap 03/07/2024 06:18:37 9 7-15 (mmol /L) Final Glucose 03/07/2024 06:18:37 100 70-120 (mg /dL) Final Albumin 03/07/2024 06:18:37 2.5 Below low normal 3.8 -5.0 (g/dL) Final AST (Aspartate aminotransferase) 03/07/2024 06:18:37 27 10-50 (U/L) Fin al Alk Phos 03/07/2024 06:18:37 76 35-130 (U/ L) Final Bilirubin, Total 03/07/2024 06:18:37 0.3 <=1 .2 (mg/dL) Final Calcium 03/07/2024 06:18:37 8.8 8.4-10.2 ( mg/dL) Final Protein 03/07/2024 06:18:37 4.9 Below low normal 6.0 -8.3 (g/dL) Final ALT (Alanine aminotransferase) 03/07/2024 06:18:37 20 10-50 (U/L) Mahesh richard Performing Location [facility] [address] [place] [address]
--- OUTSIDE RECORDS SUMMARY | 2024-03-29 20:13 | External Medical Summary ---
Author Name Unknown Address Unknown Organization K09:[facility] [place] [place] [address] Laboratory Report Ordering Provider Test Date Status SHADE SCHMITT 02/29/2024 07:50:47 Final Observation Date Value Abnormality Reference (Units ) Status Color of Urine by Auto 02/29/2024 07:50:47 Yellow Final Clarity, Urine 02/29/2024 07:50:47 Clear Final Glucose [Mass/volume] in Urine by Automated test strip 02/29/2024 07:50:47 Negative (mg/dL) Final Bilirubin.total [Presence] in Urine by Automated test strip 02/29/2024 07:50:47 Negative Final Ketones [Mass/volume] in Urine by Automated test strip 02/29/2024 07:50:47 Negative (mg/dL) Final Specific gravity, Urine 02/29/2024 07:50:47 1.025 1.003-1.030 Final Hemoglobin [Presence] in Urine by Automated test strip 02/29/2024 07:50:47 Negative Final pH, Urine 02/29/2024 07:50:47 5.5 5.0-7.5 (Units) Final Protein [Mass/volume] in Urine by Automated test strip 02/29/2024 07:50:47 Negative (mg/dL) Final Urobilinogen [Mass/volume] in Urine by Automated test strip 02/29/2024 07:50:47 0.2 (mg/dL) Final Nitrite [Presence] in Urine by Automated test strip 02/29/2024 07:50:47 Negative Negative Final Leukocyte esterase [Presence] in Urine by Automated test strip 02/29/2024 07:50:47 Negative Negative Final Annotation Comment 02/29/2024 07:50:47 Final Screen negative - Microscopi c not performed. Performing Location [facility] [place] [address]
--- OUTSIDE RECORDS SUMMARY | 2024-03-29 20:13 | External Medical Summary ---
Author Name Unknown Address Unknown Organization K09:[facility] [place] [address] Laboratory Report Ordering Provider Test Date Status ARSEN GRIFFIN 03/10/2024 06:05:31 Final Observation Date Value Abnormality Reference (Units ) Status BUN 03/10/2024 06:05:31 36 Above high normal 6-20 (mg/dL) Final Creatinine 03/10/2024 06:05:31 1.3 Above high normal 0.6-1.2 (mg/dL) Final Glomerular filtration rate/1.73 sq M.predicted [Volume Rate/Area] in Serum, Plasma or Blood by Creatinine-based formula (CKD-EPI) 03/10/2024 06:05:31 55 Below low normal >=60 (mL/min) Final eGFR is calculated based on the CKD-EPI 2020 equation. Sodium 03/10/2024 06:05:31 139 135-146 (m mol/L) Final Potassium 03/10/2024 06:05:31 4.0 3.5-5.1 (m mol/L) Final Cl 03/10/2024 06:05:31 100 98-107 (mm ol/L) Final CO2 03/10/2024 06:05:31 28 22-32 (mmo l/L) Final Anion gap 03/10/2024 06:05:31 11 7-15 (mmol /L) Final Glucose 03/10/2024 06:05:31 100 70-120 (mg /dL) Final Calcium 03/10/2024 06:05:31 8.7 8.4-10.2 ( mg/dL) Final Performing Location [facility] [place] [address]
--- OUTSIDE RECORDS SUMMARY | 2024-03-29 20:13 | External Medical Summary ---
Author Name UNSPECIFIED Address Unknown Organization [facility] History of Encounters Reason for Assessment: Transferred to an inpatient facility - patient not discharged from agency Inpatient Facility where the patient been admitted: Hospital
--- OUTSIDE RECORDS SUMMARY | 2024-03-29 20:14 | External Medical Summary ---
Author Name Unknown Address Unknown Organization K0G:[facility] [address] [place] [address] Laboratory Report Ordering Provider Test Date Status SHADE SCHMITT 02/27/2024 06:30:00 Final Observation Date Value Abnormality Reference (Units ) Status WBC, Total 02/27/2024 06:30:00 10.74 4.00-10.8 0 (K/uL) Final RBC 02/27/2024 06:30:00 2.84 4.50-5.25 (M/uL) Final Hemoglobin 02/27/2024 06:30:00 9.3 Below low normal 14 .0-16.8 (g/dL) Final HCT 02/27/2024 06:30:00 28.7 Below low normal 40. 0-48.4 (%) Final MCV 02/27/2024 06:30:00 101.1 82.0-99.5 (fL) Final MCH 02/27/2024 06:30:00 32.7 27.0-34.0 (pg) Final MCHC 02/27/2024 06:30:00 32.4 32.0-36.0 (g/dL) Final RDW 02/27/2024 06:30:00 14.9 11.5-15.5 (%) Final Platelets 02/27/2024 06:30:00 258 140-400 (K /uL) Final MPV 02/27/2024 06:30:00 9.6 6.6-11.1 ( fL) Final Performing Location [facility] [address] [place] [address]
--- OUTSIDE RECORDS SUMMARY | 2024-03-29 20:14 | External Medical Summary | Continuity of Care Document ---
Author Name Unknown Organization [facility] Address [address] [place] [phone] Care Team Providers Care Quality Control Systems Manager Name Role Phone Danny Orozco Primary Care Physician [phone] [facility] [id number] Date(s): 02/19/24 - 02/26/[address] [phone] Encounter Diagnosis Pancreatic cyst(Discharge Diagnosis) - 02/22/24 CAD (coronary artery disease)(Discharge Diagnosis) - 02/22/24 Insomnia(Discharge Diagnosis) - 02/22/24 Depression(Discharge Diagnosis) - 02/22/24 Acute pain(Discharge Diagnosis) - 02/23/24 High risk medication use(Discharge Diagnosis) - 02/24/24 MRSA infection(Discharge Diagnosis) - 02/21/24 Enterobacter sepsis(Discharge Diagnosis) - 02/22/24 Infection caused by Enterobacter cloacae(Discharge Diagnosis) - 02/22/24 Septic joint(Discharge Diagnosis) - 02/19/24 COVID-19 virus infection(Discharge Diagnosis) - 02/20/24 Chronic atrial fibrillation(Discharge Diagnosis) - 02/20/24 Hypertension(Discharge Diagnosis) - 02/20/24 Obesity(Discharge Diagnosis) - 02/20/24 Prosthetic joint infection(Discharge Diagnosis) - 02/21/24 Acute hypoxic respiratory failure(Discharge Diagnosis) - 02/22/24 Lung nodule(Discharge Diagnosis) - 02/22/24 Anemia(Discharge Diagnosis) - 02/22/24 Multiple open wounds of foot(Discharge Diagnosis) - 02/22/24 Discharge Disposition: Inpatient Rehab Facility/Unit Attending Physician: DO Warren Kunal Upendra Admitting Physician: MD Dominick, Bienvenido Gilliam Referring Physician: MD Pham Kyle Allergies, Adverse Reactions, Alerts No Known Medication Allergies Substance Criticality Severity Reaction Reaction Severity Status Cats throat closes up Act terry Functional Status 02/26/24 Neurological Symptoms Weakness ADLs Moderate assistance Facial Symmetry Symmetric Gait Unable to assess Swallowing Difficulty None Level of Consciousness Neuro Alert Hallucinations Present None History of Fall in Last 3 Months Mcgrath N o Presence of Secondary Diagnosis Mcgrath Ye s Use of Ambulatory Aid Mcgrath None/bedrest /nurse assist IV/Heparin Lock Fall Risk Mcgrath Yes Gait/Transferring Fall Risk Mcgrath Impair ed Mental Status Fall Risk Mcgrath Oriented t o own ability Mcgrath Fall Risk Score 55 Mcgrath Fall Risk High risk Speech Pattern Clear Medications cefepime Start: 02/26/24 11:08:00 AM EDT, 2,000 mg =, IV, q8h Start Date: 02/26/24 Status: Ordered clotrimazole 10 mg oral lozenge Start: 02/20/24 3:14:00 PM EDT, 1 lozenge, PO, Daily, Disp# 30 lozenge, other Start Date: 02/20/24 Status: Ordered Colace 100 mg oral capsule Start: 02/26/24 2:12:00 PM EDT, 1 cap, PO, bid, Disp# 20 cap, use until bowel movement, PRN: as needed for constipation, other Start Date: 02/26/24 Stop Date: 03/04/24 Status: Ordered doxycycline Start: 02/26/24 11:09:00 AM EDT, 100 mg =, PO, bid Start Date: 02/26/24 Status: Ordered DULoxetine 30 mg oral delayed release capsule Start: 02/26/24 11:09:00 AM EDT, 2 cap, PO, Daily Start Date: 02/26/24 Status: Ordered esomeprazole 40 mg oral delayed release capsule Start: 02/20/24 3:15:00 PM EDT, 1 cap, PO, Daily, Disp# 90 cap, other Start Date: 02/20/24 Stop Date: 05/20/24 Status: Ordered ferrous sulfate 325 mg (65 mg elemental iron) oral tablet Start: 02/20/24 3:19:00 PM EDT, 1 tab, PO, Daily, Disp# 90 tab, other Start Date: 02/20/24 Stop Date: 05/20/24 Status: Ordered Flomax 0.4 mg oral capsule Start: 02/26/24 11:09:00 AM EDT, 1 cap, PO, Daily Start Date: 02/26/24 Status: Ordered furosemide 20 mg oral tablet Start: 02/20/24 3:18:00 PM EDT, 1 tab, PO, Daily, Disp# 30 tab, take 1 tab daily as needed for weight gain, PRN: discomfort, other Start Date: 02/20/24 Status: Ordered gabapentin 300 mg oral capsule Start: 02/26/24 11:09:00 AM EDT, 1 cap, PO, tid Start Date: 02/26/24 Status: Ordered HumaLOG Sliding Scale Adult Critical Care Dose Range: SSI, injection, subQ, 02/20/24 8:00:00 AM EDT, 02/20/24 8:07:30 AM EDT, 02/19/24 16:36:00EDT Start Date: 02/20/24 Stop Date: 02/20/24 Status: Completed HumaLOG Sliding Scale Adult Critical Care Dose Range: SSI, injection, subQ, 02/20/24 12:00:00 PM EDT, 02/20/24 11:40:39 AM EDT, 02/19/24 16:36:00 EDT Start Date: 02/20/24 Stop Date: 02/20/24 Status: Completed isosorbide mononitrate 60 mg oral tablet, extended release Start: 02/20/24 3:15:00 PM EDT, 1 tab, PO, qAM, Disp# 90 tab, other Start Date: 02/20/24 Stop Date: 05/20/24 Status: Ordered latanoprost 0.005% ophthalmic solution Start: 02/26/24 11:09:00 AM EDT, 1 drop, both eyes, qhs Start Date: 02/26/24 Status: Ordered metoprolol tartrate 12.5 mg, tablet, PO, 02/26/24 9:00:00 AM EDT, 02/26/24 9:31:44 AM EDT, immediate release product, 02/20/24 16:39:00 EDT Start Date: 02/26/24 Stop Date: 02/26/24 Status: Completed metoprolol tartrate 25 mg oral tablet Start: 02/20/24 3:15:00 PM EDT, 0.5 tab, PO, bid Start Date: 02/20/24 Status: Ordered MiraLax oral powder for reconstitution Start: 02/26/24 2:11:00 PM EDT, 17 g =, PO, bid, Disp# 10 each, use until bowel movement. then can use as needed, other Start Date: 02/26/24 Stop Date: 03/04/24 Status: Ordered nystatin 100,000 units/g topical powder See Instructions, Disp# 60 g, APPLY topically daily for 30 days; Apply to feet daily with dressing changes., other Start Date: 02/20/24 Status: Ordered olmesartan 5 mg oral tablet Start: 02/20/24 3:17:00 PM EDT, 1 tab, PO, Daily, Disp# 90 tab, other Start Date: 02/20/24 Status: Ordered oxyCODONE 5 mg oral tablet 1 tab, PO, qhs, Disp# 30 tab, take 1-2 tabs at bedtime as needed, PRN: as needed for pain, other Start Date: 02/20/24 Status: Ordered pravastatin 40 mg oral tablet 1 tab, PO, Daily, Disp# 90 tab, X 90 day, Stop: 05/19/24 8:00:00 PM EST, other Start Date: 02/20/24 Stop Date: 05/19/24 Status: Ordered ranolazine 500 mg oral tablet, extended release Start: 02/20/24 3:15:00 PM EDT, 1 tab, PO, bid, Disp# 60 tab, other Start Date: 02/20/24 Stop Date: 03/21/24 Status: Ordered rivaroxaban 10 mg oral tablet Start: 02/26/24 11:09:00 AM EDT, See Instructions, 20 mg daily Start Date: 02/26/24 Status: Ordered senna (sennosides) 8.6 mg oral tablet Start: 02/26/24 2:13:00 PM EDT, 1 tab, PO, qhs, Disp# 7 tab, use until you have a bowel movement, PRN: as needed for constipation, other Start Date: 02/26/24 Stop Date: 03/04/24 Status: Ordered Mental Status 02/24/24 Primary Language Macedonian 02/23/24 Communication Barrier Present No Problem List Condition Confirmation Course Effective Dates Status Health St atus Informant Arthritis of knee, right Confirmed Active Atrial fibrillation Confirmed Active CAD (coronary artery disease) Confirmed Active 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 1 Confirmed 02/19/24 Active Right knee pain Confirmed Active Aftercare following right knee joint replacement surgery Confirmed Active Peripheral vascular disease Confirmed Active RA (rheumatoid arthritis) Confirmed Active 1URINE RECEIVED IN TRANSPORT MEDIA 02/19/2024 >100 THOUSAND COLONIES/ML PROTEUS MIRABILIS This organism produces an extended-spectrum beta-lactamase (ESBL) (MDRO) Diagnosis Diagnosis Type Effective Dates Health Status Clinical Service Informant Septic joint Discharge Diagnosis 02/19/24 Non-Specified Hypertension Discharge Diagnosis 02/20/24 Non-Specified Obesity Discharge Diagnosis 02/20/24 Non-Specified COVID-19 virus infection Discharge Diagnosis 02/20/24 Non-Specified Chronic atrial fibrillation Discharge Diagnosis 02/20/24 Non-Specified MRSA infection Discharge Diagnosis 02/21/24 Non-Specified Prosthetic joint infection Discharge Diagnosis 02/21/24 Non-Specified Acute hypoxic respiratory failure Discharge Diagnosis 02/22/24 Non-Specified Enterobacter sepsis Discharge Diagnosis 02/22/24 Lung nodule Discharge Diagnosis 02/22/24 Non-Specified Infection caused by Enterobacter cloacae Discharge Diagnosis 02/22/24 Anemia Discharge Diagnosis 02/22/24 Non-Specified Insomnia Discharge Diagnosis 02/22/24 Non-Specified Multiple open wounds of foot Discharge Diagnosis 02/22/24 Non-Specified Pancreatic cyst Discharge Diagnosis 02/22/24 Non-Specified CAD (coronary artery disease) Discharge Diagnosis 02/22/24 Non-Specified Depression Discharge Diagnosis 02/22/24 Non-Specified Acute pain Discharge Diagnosis 02/23/24 Non-Specified High risk medication use Discharge Diagnosis 02/24/24 Non-Specified Procedures Procedure Date Related Diagnosis Body Site Status Revision 1 07/01/23 Completed Knee replacement 2 11/04/22 Comple janel flush in knee right 3 03/2022 Com pleted achilles tendon right Com pleted Cataract bilateral Comple janel Colonoscope Completed Colostomy bag Completed Hernia Completed Hip replacement right x2 Completed Knee replacement left Com pleted Knee right tendon Complet ed Large intestine operation pa rtial removal Completed Prostate laser Completed Rotator cuff repair bi lateral Completed spine surgery x2 4 Comple janel stent x2 Completed 1r tka 2right 3flush in knee 4spine surgery Results Laboratory List Name Date Calcium, Ionized (Ionized Calcium) Complete Blood Count w Differential (CBC w Platelets and Diff) 02/26/24 Magnesium Level 02/26/24 Phosphorus Level 02/26/24 Basic Metabolic Panel (BMP) 02/26/24 Calcium, Ionized (Ionized Calcium) C Reactive Protein, Quantitation (CRP, Q uantitation) 02/25/24 Complete Blood Count w Differential (CBC w Platelets and Diff) 02/25/24 Erythrocyte Sedimentation Rate (ESR) 02/06 03/01 Magnesium Level 02/25/24 Phosphorus Level 02/25/24 Basic Metabolic Panel (BMP) 02/25/24 Complete Blood Count (CBC w Platelets) Complete Blood Count w Differential (CBC w Platelets and Diff) 02/24/24 Magnesium Level 02/24/24 Phosphorus Level 02/24/24 Calcium, Ionized (Ionized Calcium) Basic Metabolic Panel (BASIC METAB PANEL ) 02/24/24 Added on Lab order 02/23/24 C Reactive Protein, Quantitation (CRP, Q uantitation) 02/23/24 Erythrocyte Sedimentation Rate (ESR) 02/06 12/29 Glucose Meter (GLUCOSE METER) 02/22/24 Vancomycin Level 02/21/24 Added on Lab order 02/21/24 NT-Pro BNP 02/21/24 C Reactive Protein, Quantitation (CRP, Q uantitation) 02/21/24 Erythrocyte Sedimentation Rate (ESR) 02/06 10/29 Glucose Meter (GLUCOSE METER) 02/20/24 Glucose Meter (GLUCOSE METER) 02/20/24 Added on Lab order 02/20/24 Nephrology Panel (NEPHROLOGY PANEL) 02/19 Lactic Acid Level 02/20/24 Albumin Level (ALBUMIN) 02/20/24 Blood Type/Antibody Screen ( for possible transfusion) (Type and Screen (for possible transfusion)) 02/20/24 Cell Count w Differential, Fluid (Fluid Cell Count w Differential) 02/19/24 Hold Extra Fluid 02/19/24 Synovial Fluid Crystals (Crystals, Synov ial Fluid) 02/19/24 Hepatic Function Panel 02/19/24 Lactic Acid Level 02/19/24 Prothrombin Time w/ INR (PT/INR) 02/19/24 MRSA Surveillance (Nasal Swab) 02/19/24 Vancomycin Level (VANCOMYCIN) 02/19/24 Urine Analysis w/ Reflexed Microscopic. 02/19/24 Most recent to oldest [Reference Range]: 1 2 3 ABO/Rh O NEGATIVE (02/20/24 12:22 AM) Antibody Scr NEGATIVE (02/20/24 12:22 AM) Expires at 0600AM on 02/23/2024 (02/20/24 12:22 AM) # Units 2 (02/20/24 12:22 AM) R Number NRQ (02/20/24 12:22 AM) CReacProt [<0.50 mg/dL] 2.03 mg/dL *HI* (02/25/24 5:43 AM) 4.94 mg/dL *HI* (02/23/24 4:42 AM) 21.54 mg/dL *HI* (02/21/24 4:21 AM) eGFR CKD-EPI [>60 mL/min/1.73 m2] REQUEST CREDITED mL/min/1.73 m2 1 (02/26/24 5:28 AM) 80 mL/min/1.73 m2 (02/25/24 5:38 AM) 77 mL/min/1.73 m2 (02/24/24 5:11 AM) Blood Glucose [70-120 mg/dL] 124 mg/dL 2 *HI* (02/22/24 8:00 PM) 71 mg/dL 3 (02/20/24 11:40 AM) 99 mg/dL 4 (02/20/24 8:07 AM) Blood Glucose Ref Range [70 - 120 mg/dl] (02/22/24 8:00 PM) Request of Physician Erythrocyte Sedimen tation Rate (ESR) (02/23/24 4:44 AM) BMP (02/21/24 4:47 AM) Neph panel (02/20/24 4:25 AM) Action Taken Test NOT added becau se: 5 (02/23/24 4:44 AM) YES (02/21/24 4:47 AM) YES (02/20/24 4:25 AM) BNP, NT-Pro [<450 pg/mL] REQUEST CREDITE D pg/mL 6 (02/21/24 4:23 AM) [place] 12 % (02/19/24 7:30 PM) Estimated CrCl 80.94 mL/min (02/25/24 6:40 AM) 78.48 mL/min (02/24/24 5:54 AM) 67.57 mL/min (02/23/24 6:42 PM) MPV [9.0-12.2 fL] 9.8 fL (02/26/24 5:28 AM) 10.1 fL (02/25/24 5:43 AM) 10.1 fL (02/25/24 5:38 AM) Immature Gran% 1.6 % (02/26/24 5:28 AM) 1.7 % (02/25/24 5:43 AM) 0.9 % (02/24/24 5:11 AM) Neut% 73.6 % (02/26/24 5:28 AM) 72.0 % (02/25/24 5:43 AM) 86.1 % (02/24/24 5:11 AM) Lymph% 12.2 % (02/26/24 5:28 AM) 12.1 % (02/25/24 5:43 AM) 4.8 % (02/24/24 5:11 AM) [place]% 9.1 % (02/26/24 5:28 AM) 11.4 % (02/25/24 5:43 AM) 7.9 % (02/24/24 5:11 AM) Baso% 0.3 % (02/26/24 5:28 AM) 0.2 % (02/25/24 5:43 AM) 0.1 % (02/24/24 5:11 AM) Eos% 3.2 % (02/26/24 5:28 AM) 2.6 % (02/25/24 5:43 AM) 0.2 % (02/24/24 5:11 AM) Immat Gran, Abs [0-0.4 K/uL] 0.18 K/uL (02/26/24 5:28 AM) 0.18 K/uL (02/25/24 5:43 AM) 0.12 K/uL (02/24/24 5:11 AM) Neut, Abs [2.0-7.7 K/uL] 8.04 K/uL *HI* (02/26/24 5:28 AM) 7.41 K/uL (02/25/24 5:43 AM) 11.16 K/uL *HI* (02/24/24 5:11 AM) Lymph, Abs [1.0-3.4 K/uL] 1.33 K/uL (02/26/24 5:28 AM) 1.25 K/uL (02/25/24 5:43 AM) 0.62 K/uL *LOW* (02/24/24 5:11 AM) [place], Abs [0-1.0 K/uL] 1.00 K/uL (02/26/24 5:28 AM) 1.17 K/uL *HI* (02/25/24 5:43 AM) 1.03 K/uL *HI* (02/24/24 5:11 AM) Baso, Abs [0-0.1 K/uL] 0.03 K/uL (02/26/24 5:28 AM) 0.02 K/uL (02/25/24 5:43 AM) 0.01 K/uL (02/24/24 5:11 AM) Eos, Abs [0-0.5 K/uL] 0.35 K/uL (02/26/24 5:28 AM) 0.27 K/uL (02/25/24 5:43 AM) 0.02 K/uL (02/24/24 5:11 AM) Type of Diff: AUTO (02/26/24 5:28 AM) AUTO (02/25/24 5:43 AM) AUTO (02/24/24 5:11 AM) RDW [11.5-14.2 %] 14.9 % *HI* (02/26/24 5:28 AM) 14.8 % *HI* (02/25/24 5:43 AM) 14.6 % *HI* (02/25/24 5:38 AM) Component RED CELLS (02/20/24 12:22 AM) MRSA Surveillance, on Admission [MSND] MRSA NOT detected (02/19/24 6:54 PM) Anion Gap [5-14 mmol/L] REQUEST CREDITED mmol/L 7 (02/26/24 5:28 AM) 8 mmol/L (02/25/24 5:38 AM) 6 mmol/L (02/24/24 5:11 AM) Alb [3.5-5.2 g/dL] REQUEST CREDITED g/d L 8 (02/20/24 4:25 AM) 2.8 g/dL *LOW* (02/20/24 4:24 AM) 3.0 g/dL *LOW* (02/19/24 6:54 PM) Alk Phos [40-130 unit/L] 63 unit/L 9 (02/19/24 6:54 PM) ALT [0-41 unit/L] 28 unit/L (02/19/24 6:54 PM) AST [0-40 unit/L] 32 unit/L (02/19/24 6:54 PM) Bili (u) [NEG] NEGATIVE (02/19/24 4:36 PM) BUN [6-23 mg/dL] REQUEST CREDITED mg/ dL 10 (02/26/24 5:28 AM) 23 mg/dL (02/25/24 5:38 AM) 25 mg/dL *HI* (02/24/24 5:11 AM) Ca [8.4-10.2 mg/dL] REQUEST CREDITED mg/ dL 11 (02/26/24 5:28 AM) 8.2 mg/dL *LOW* (02/25/24 5:38 AM) 8.1 mg/dL *LOW* (02/24/24 5:11 AM) Ion Ca [1.15-1.27 mmol/L] 1.16 mmol/L (02/26/24 5:29 AM) 1.20 mmol/L (02/25/24 5:43 AM) 1.15 mmol/L (02/24/24 5:10 AM) Cl- [98-107 mmol/L] REQUEST CREDITED mmo l/L 12 (02/26/24 5:28 AM) 102 mmol/L (02/25/24 5:38 AM) 101 mmol/L (02/24/24 5:11 AM) HCO3 [22-29 mmol/L] REQUEST CREDITED mmo l/L 13 (02/26/24 5:28 AM) 26 mmol/L (02/25/24 5:38 AM) 28 mmol/L (02/24/24 5:11 AM) Cret [0.70-1.30 mg/dL] REQUEST CREDITED mg/dL 14 (02/26/24 5:28 AM) 0.96 mg/dL (02/25/24 5:38 AM) 0.99 mg/dL (02/24/24 5:11 AM) D Bili [0.0-0.3 mg/dL] 0.2 mg/dL (02/19/24 6:54 PM) ESR [0-40 mm/hr] 29 mm/hr (02/25/24 5:43 AM) 42 mm/hr *HI* (02/23/24 4:42 AM) 47 mm/hr *HI* (02/21/24 4:21 AM) Baso,fl 0 % (02/19/24 7:30 PM) Eos,fl 0 % (02/19/24 7:30 PM) Lymph,fl 0 % (02/19/24 7:30 PM) Nuc Cell,fl 933005 /uL 15 (02/19/24 7:30 PM) Neut,fl 88 % (02/19/24 7:30 PM) OtherMono,fl 0 % (02/19/24 7:30 PM) RBC,fl >85547 /uL (02/19/24 7:30 PM) Glu [74-109 mg/dL] REQUEST CREDITED mg/ dL 16 (02/26/24 5:28 AM) 93 mg/dL 17 (02/25/24 5:38 AM) 151 mg/dL 18 *HI* (02/24/24 5:11 AM) Gluc Meter [74-109 mg/dL] 128 mg/dL *HI* (02/22/24 8:07 PM) 71 mg/dL *LOW* (02/20/24 11:39 AM) 99 mg/dL (02/20/24 8:02 AM) Hct [39-48 %] 26.5 % *LOW* (02/26/24 5:28 AM) 24.6 % *LOW* (02/25/24 5:43 AM) 24.4 % *LOW* (02/25/24 5:38 AM) Hgb [13.0-17.0 g/dL] 8.6 g/dL *LOW* (02/26/24 5:28 AM) 8.0 g/dL *LOW* (02/25/24 5:43 AM) 8.0 g/dL *LOW* (02/25/24 5:38 AM) INR [0.9-1.1] 1.5 19 *HI* (02/19/24 6:54 PM) K [3.5-5.1 mmol/L] REQUEST CREDITED mmo l/L 20 (02/26/24 5:28 AM) 4.3 mmol/L (02/25/24 5:38 AM) 4.7 mmol/L (02/24/24 5:11 AM) Ketones [NEG mg/dL] NEGATIVE mg/dL (02/19/24 4:36 PM) Lactate [0.5-2.2 mmol/L] 0.7 mmol/L (02/20/24 4:24 AM) 1.0 mmol/L (02/19/24 6:54 PM) Leuk Est [NEG] NEGATIVE (02/19/24 4:36 PM) MCH [28-33 pg] 33.0 pg (02/26/24 5:28 AM) 32.9 pg (02/25/24 5:43 AM) 33.3 pg *HI* (02/25/24 5:38 AM) MCHC [32-36 g/dL] 32.5 g/dL (02/26/24 5:28 AM) 32.5 g/dL (02/25/24 5:43 AM) 32.8 g/dL (02/25/24 5:38 AM) MCV [81-96 fL] 101.5 fL *HI* (02/26/24 5:28 AM) 101.2 fL *HI* (02/25/24 5:43 AM) 101.7 fL *HI* (02/25/24 5:38 AM) Mg [1.6-2.6 mg/dL] 1.7 mg/dL (02/26/24 5:28 AM) 1.7 mg/dL (02/25/24 5:43 AM) 1.9 mg/dL (02/24/24 5:11 AM) Na [136-145 mmol/L] REQUEST CREDITED mmo l/L 21 (02/26/24 5:28 AM) 136 mmol/L (02/25/24 5:38 AM) 135 mmol/L *LOW* (02/24/24 5:11 AM) Nitrite (u) [NEG] NEGATIVE (02/19/24 4:36 PM) PO4 [2.5-4.5 mg/dL] 3.1 mg/dL (02/26/24 5:28 AM) 2.5 mg/dL (02/25/24 5:43 AM) 3.1 mg/dL (02/24/24 5:11 AM) Plts [150-350 K/uL] 203 K/uL (02/26/24 5:28 AM) 193 K/uL (02/25/24 5:43 AM) 192 K/uL (02/25/24 5:38 AM) PT [12.0-14.2 seconds] 17.8 seconds *HI* (02/19/24 6:54 PM) RBC [4.40-5.60 M/uL] 2.61 M/uL *LOW* (02/26/24 5:28 AM) 2.43 M/uL *LOW* (02/25/24 5:43 AM) 2.40 M/uL *LOW* (02/25/24 5:38 AM) Syn Cryst,fl NONE DETECTED (02/19/24 7:30 PM) T Bili [0.0-1.2 mg/dL] 0.5 mg/dL (02/19/24 6:54 PM) Prot [6.4-8.3 g/dL] 5.1 g/dL *LOW* (02/19/24 6:54 PM) Appear (u) CLEAR (02/19/24 4:36 PM) Color (u) YELLOW (02/19/24 4:36 PM) Glu (u) [NEG mg/dL] NEGATIVE mg/dL (02/19/24 4:36 PM) Hgb (u) [NEG] NEGATIVE (02/19/24 4:36 PM) pH (u) [5.0-8.0 unit] 6.0 unit (02/19/24 4:36 PM) Prot (u) [NEG mg/dL] NEGATIVE mg/dL (02/19/24 4:36 PM) Urobili [0.1-1.0 EU/dL] 0.1-1.0 EU/dL (02/19/24 4:36 PM) SG [1.005-1.030] 1.019 (02/19/24 4:36 PM) Vanco 10.1 ug/mL 22 (02/21/24 1:50 PM) 31.0 ug/mL 23 *Critical High* (02/19/24 6:54 PM) WBC [4.0-10.4 K/uL] 10.93 K/uL *HI* (02/26/24 5:28 AM) 10.30 K/uL (02/25/24 5:43 AM) 10.23 K/uL (02/25/24 5:38 AM) Hold Extra Fluid SPECIMEN HELD IN [facility] ER. CALL [phone] TO ADD STUDIES. (02/19/24 7:30 PM) 1Result Comment: NO SAMPLE RECEIVED 2Result Comment: Performed at: [address] [place] [address] 3Result Comment: Performed at: [address] [place] [address] 4Result Comment: Performed at: [address] [place] [address] 5Result Comment: DUPLICATE REQUEST 6Result Comment: TEST NOT REQUESTED 7Result Comment: NO SAMPLE RECEIVED 8Result Comment: Lab orders combined with other orders received on the same specimen. 9Result Comment: Low levels of ALKP may indicate a deficiency in zinc, magnesium, or malnutritionbutcan also be an indicator of a rare genetic disease hypophosphatasia (HPP). 10Result Comment: NO SAMPLE RECEIVED 11Result Comment: NO SAMPLE RECEIVED 12Result Comment: NO SAMPLE RECEIVED 13Result Comment: NO SAMPLE RECEIVED 14Result Comment: NO SAMPLE RECEIVED 15Result Comment: "The reference intervals and other method performance specifications are unavailable for this body fluid. Comparision of the result with concentration in the blood, serum or plasma isrecommended." 16Result Comment: NO SAMPLE RECEIVED 17Result Comment: ADA recommendation for FASTING Serum/Plasma Glucose: Normal: 70-100 mg/dL Prediabetes: 100-125 mg/dL Diabetes: 126 mg/dL or higher 18Result Comment: ADA recommendation for FASTING Serum/Plasma Glucose: Normal: 70-100 mg/dL Prediabetes: 100-125 mg/dL Diabetes: 126 mg/dL or higher 19Result Comment: Suggested therapeutic range for low-intensity Coumadin therapy for venous thromboembolism is INR 2.0-3.0 (ex: atrial fibrillation, history of TIA/stroke). For high risk patients, the suggested therapeutic range is INR 2.5-3.5 (ex: mechanical prosthetic valves). 20Result Comment: NO SAMPLE RECEIVED 21Result Comment: NO SAMPLE RECEIVED 22Result Comment: Trough Level: Therapeutic Level: 10.0-15.0 ug/mL (but 15.0-20.0 ug/mL for some indications) Potentially Toxic Level: >20.0 ug/mL Peak Level: Therapeutic Level: 20.0-40.0 ug/mL Potentially Toxic Level: >40.0 ug/mL 23Result Comment: Trough Level: Therapeutic Level: 10.0-15.0 ug/mL (but 15.0-20.0 ug/mL for some indications) Potentially Toxic Level: >20.0 ug/mL Peak Level: Therapeutic Level: 20.0-40.0 ug/mL Potentially Toxic Level: >40.0 ug/mL Orders for Microbiology Reports Name Date Anaerobe Culture, Tissue, Device w Smear (CULTURE,ANER(DEVICE)) 02/23/24 Tissue Cult, Prosthetic Device w Smear ( CULTURE,TISSUE(DEV)) 02/23/24 Anaerobe Culture, Tissue w Smear (CULTUR E,ANER(TISSUE)) 02/23/24 Tissue Culture w Smear (CULTURE, TISSUE) 02/23/24 Acid Fast Bacillus Cx/Smear, Tissue (CUL TURE,AFB (TISSUE)) 02/20/24 Intraoperative Culture w Smear (CULTURE, INTRAOPERATIVE) 02/20/24 Intraoperative Culture w Smear (CULTURE, INTRAOPERATIVE) 02/20/24 Intraoperative Culture w Smear (CULTURE, INTRAOPERATIVE) 02/20/24 Intraoperative Culture w Smear (CULTURE, INTRAOPERATIVE) 02/20/24 Tissue Culture w Smear (CULTURE, TISSUE) 02/20/24 Microbiology Reports (Most Recent Ten) TEST:Anaerobe.Culture, Tissue, Device STATUS:Unauthenticated BODY SITE: SOURCE:Device COLLECTED DATE/TIME:02/23/24 3:35 PM Culture NO ANAEROBIC GROWTH IN 3 DAYS TEST:Tissue.Culture, Prosthetic Device STATUS:Auth (Verified) BODY SITE: SOURCE:Device COLLECTED DATE/TIME:02/23/24 3:35 PM Status FINAL 02/26/2024 ORGANISM:Enterobacter Cloacae Complex Susceptibilty: Enterobacter Cloacae Complex Tested Drug Broth KARL Dilution Broth Interpr etation Trimeth-Sulfamethoxazole <=0.5/9.5 Suscept . Tetracycline 8 Intermed. Levofloxacin <=0.5 Suscept. Gentamicin <=2 Suscept. Ciprofloxacin <=0.25 Suscept. Cefepime <=2 Suscept. Cefazolin >16 Resistant Ampicillin 16 Resistant Ampicillin/Sulbactam 16/8 Resistant Amoxicillin/Clavulanic A >16/8 Resista nt TEST:Anaerobe.Culture, Tissue STATUS:Unauthenticated BODY SITE: SOURCE:Tissue COLLECTED DATE/TIME:02/23/24 3:32 PM Culture NO ANAEROBIC GROWTH IN 3 DAYS TEST:Tissue.Cx STATUS:Auth (Verified) BODY SITE: SOURCE:Tissue COLLECTED DATE/TIME:02/23/24 3:32 PM Status FINAL 02/26/2024 ORGANISM:Enterobacter Cloacae Complex Susceptibilty: Enterobacter Cloacae Complex Tested Drug TEST:AFB.Culture, Tissue STATUS:Unauthenticated BODY SITE: SOURCE:Tissue COLLECTED DATE/TIME:02/20/24 10:45 AM Culture NO ACID FAST BACILLI ISOLATED AFTER 3 DAYS TEST:Tissue.Cx STATUS:Auth (Verified) BODY SITE: SOURCE:Tissue COLLECTED DATE/TIME:02/20/24 10:45 AM Culture 3+ ENTEROBACTER CLOACAE COMPLEX This organism may have an inducible AmpC beta-lactamase, which can cause resistance to third-generation cephalosporins and piperacillin-tazobactam during treatment. Though ceftriaxone or piperacillin-tazobactam could be used for uncomplicated cystitis if the organism is reported as susceptible, serious infections should be treated with cefepime (unless not fully susceptible) or with a carbapenem or [id number] antibiotic. Please contact Infectious Diseases or the [facility] with any questions. for additional results, see: SYNOVIAL FLUID, COLLECTED 02/19/24 @1930 FEW MIXED SKIN MANOJ ORGANISM:Enterobacter Cloacae Complex Susceptibilty: Enterobacter Cloacae Complex Tested Drug TEST:Intraoperative.Cx STATUS:Auth (Verified) BODY SITE: SOURCE:Surgical Specimen COLLECTED DATE/TIME:02/20/24 10:45 AM Status FINAL 02/23/2024 ORGANISM:Enterobacter Cloacae Complex Susceptibilty: Enterobacter Cloacae Complex Tested Drug TEST:Intraoperative.Cx STATUS:Auth (Verified) BODY SITE: SOURCE:Surgical Specimen COLLECTED DATE/TIME:02/20/24 10:45 AM Status FINAL 02/23/2024 ORGANISM:Enterobacter Cloacae Complex Susceptibilty: Enterobacter Cloacae Complex Tested Drug TEST:Intraoperative.Cx STATUS:Auth (Verified) BODY SITE: SOURCE:Surgical Specimen COLLECTED DATE/TIME:02/20/24 10:45 AM Status FINAL 02/23/2024 ORGANISM:Enterobacter Cloacae Complex Susceptibilty: Enterobacter Cloacae Complex Tested Drug TEST:Intraoperative.Cx STATUS:Auth (Verified) BODY SITE: SOURCE:Surgical Specimen COLLECTED DATE/TIME:02/20/24 10:45 AM Status FINAL 02/23/2024 ORGANISM:Enterobacter Cloacae Complex Susceptibilty: Enterobacter Cloacae Complex Tested Drug Radiology Reports * Exam Date Time Procedure Performing Provider Status 02/25/24 11:34 PM MRI Abdomen w/ + w/o Contrast Priscila Barnard S; Final Notes: (MRI Abdomen w/ + w/o Contrast) Reason For Exam: pancreatic lesion MRI Abdomen w/ + w/o Contrast EXAMINATION: MRI Abdomen w/ + w/o Contrast CLINICAL HISTORY: pancreatic lesion COMPARISON: CT chest dated 02/20/2024 TECHNIQUE: MRI Abdomen w/ + w/o Contrast CONTRAST: Contrast Type: Gadavist Volume (ml): 6.00 Contrast Type: Volume (ml): FINDINGS: Lower chest: Markable. ABDOMEN: Liver, Gallbladder \\T\\ Bile Ducts: Normal morphology and signal intensity. Normal appearances of the gallbladder. No biliary dilatation. Pancreas: * The pancreatic lesion identified on the recent CT scan corresponds to a lobulated cystic structure measuring 2.6 x 2.1 cm related to the pancreatic body which appears to communicate with the main pancreatic duct. There are no solid enhancing components. 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 * No pancreatic duct dilatation. No solid pancreatic mass is identified. Spleen: Unremarkable Adrenals: Structurally Normal. Kidneys, Collecting System And Ureters: There are multiple bilateral renal cysts measuring up to 3.6 cm. No hydronephrosis. Retroperitoneum, Lymph Nodes, And Vessels: No upper abdominal,mesenteric or retroperitoneal lymphadenopathy. Normal caliber aorta. Bowel \\T\\ Mesentery: Unremarkable appearances of the bowel. No ascites. Upper Pelvis: Unremarkable Osseous And Body Wall: No concerning osseous lesions. IMPRESSION: Cystic pancreatic body lesion corresponding to recent CT finding and several other smaller subcentimeter cystic pancreatic lesions communicating with the main pancreatic duct are consistent with sidebranch IPMN's without worrisome features/high risk stigmata. Referral to pancreatic cyst clinic for advice on surveillance schedule is recommended . [place] Act 112: This study does not meet the requirements of [place] Act 112. Workstation ID: [id number] Final Dictated by:MD Briggs Margaret Dictated DT/TM:02/26/2024 9:30 Signed by:MD Briggs Margaret Signed (Electronic Signature):02/26/2024 9:28 a * Exam Date Time Procedure Performing Provider Status 02/23/24 7:07 PM XR Knee 1 or 2 Views Right Jayce Delgado on; Final Notes: (XR Knee 1 or 2 Views Right) Reason For Exam: Knee Replacement Surgery; Post Op TKA XR Knee 1 or 2 Views Right EXAMINATION: XR Knee 1 or 2 Views Right CLINICAL HISTORY: Knee Replacement Surgery; Post Op TKA COMPARISON: Right knee radiographs 02/19/2024 FINDINGS: Nonweightbearing 2 views of the right knee. Postsurgical changes of total knee arthroplasty with antibiotic beads in the distal femur. No hardware complication. Soft tissue air about the knee, likelyexpected postsurgical changes. There is a knee joint effusion. Vascular calcifications. IMPRESSION: Right total knee arthroplasty with antibiotic beads about the distal femur. No hardware complication. Workstation ID: [id number] Final Dictated by:DO White Rushi Dictated DT/TM:02/23/2024 7:41 Signed by:DO hWite Rushi Signed (Electronic Signature):02/23/2024 7:40 p * Exam Date Time Procedure Performing Provider Status 02/22/24 12:42 PM VL Ankle-Brachial Index-Complete Flaco Han; Final Notes: (VL Ankle-Brachial Index-Complete) Reason For Exam: b/l lower extremity arterial duplexes and ABIs VL Ankle-Brachial Index- Complete [facility] FINAL REPORT Name: RAFY PALACIO : 1945 Visit: [id number] Date: 22 Feb 2024 TYPE OF TEST: Peripheral Arterial Testing REASON FOR TEST Eval for PAD INTERPRETATION/FINDINGS Resting ankle/brachial indices and waveform analysis of the bilateral lower extremities reveals: 1. Triphasic Doppler waveforms in the bilateral common femoral, distal posterior tibial, distal anterior tibial, plus right distal superficial femoral and left popliteal arteries. Unable to visualize the right popliteal artery due to bandage. 2. The right ankle/brachial index is 1.14 (normal) and the left ankle/brachial index is 1.27 (normal). 3. The great toe pressure measured 171 mmHg on the right and 182 mmHg on the left. *No prior exam available for comparison. IMPRESSION/COMMENTS I have personally reviewed the data relevant to the interpretation of this study. TECHNOLOGIST: GEORGETTE Carlson, RVT PHYSICIAN: Ruben Maldonado MD Signed: 02/22/2024 04:21 PM Final Dictated by:MD Maldonado John F Dictated DT/TM:02/24/2024 10:21 Signed by:MD Maldonado John F Signed (Electronic Signature):02/22/2024 4:21 p Transcribed by:AQUILES * Exam Date Time Procedure Performing Provider Status 02/20/24 9:[address] Thorax w/o Contrast Maribel Bianchi; Final Notes: (CT Thorax w/o Contrast) Reason For Exam: New O2 requirement with past CXR showing nodules CT Thorax w/o Contrast EXAMINATION: CT CHEST WITHOUT IV CONTRAST CLINICAL HISTORY: New O2 requirement with past CXR showing nodules TECHNIQUE: Helical CT scan through the chest without intravenous contrast. Data reconstructed as axial, sagittal and coronal slices. DOSE: Total Reported Dose Length Product (DLP) = 387.88 mGy.cm COMPARISON: None FINDINGS: Pleura and Lungs: There are scattered calcified pulmonary granulomas. Irregular part solid right middle lobe 7 mm nodule, image 56 series 3. Trace bilateral pleural effusions with adjacent atelectasis. No pneumothorax. Central airways: Patent airways. Lymph nodes: Calcified mediastinal and right hilar lymph nodes. Thyroid and Mediastinum: The thyroid gland and esophagus are unremarkable for technique. Heart and Great vessels: Normal heart size. There are atherosclerotic calcifications of the coronary arteries. There are atherosclerotic calcifications of the aorta and its branches. Upper abdomen: Multiple small calcified granulomas within the spleen. Partially visualized renal cysts and too small to characterize hypodensities. Ill-defined 2.7 cm lesion within the pancreatic body. Chest wall: Multifocal right shoulder bursitis. Bilateral glenohumeral osteoarthritis. There are degenerative changes of the spine. IMPRESSION: 1. Multiple benign scattered pulmonary calcified granulomas. 2. Irregular part solid right middle lobe 7 mm lung nodule. This is likely infectious or inflammatory, and follow-up CT in 3-6 months is recommended to ensure resolution and rule out neoplasm. 3. Trace bilateral pleural effusions with adjacent atelectasis. 4. Coronary artery atherosclerosis. 5. Ill-defined 2.7 cm cystic lesion in the pancreatic body. Recommend MR pancreas protocol imaging with contrast for further evaluation. [place] Act 112: This study does not meet the requirements of [place] 112. Workstation ID: [id number] Final Dictated by:MD [place] Benjamin Dictated DT/TM:02/20/2024 10:03 Signed by:MD [place] Benjamin Signed (Electronic Signature):02/20/2024 10:02 * Exam Date Time Procedure Performing Provider Status 02/19/24 10:42 PM XR Knee 1 or 2 Views Right Downey; Final Notes: (XR Knee 1 or 2 Views Right) Reason For Exam: R TKA, c/f sepsis XR Knee 1 or 2 Views Right EXAMINATION: XR Hip 2-3 Views w/AP Pelvis Right, XR Knee 1 or 2 Views Right CLINICAL HISTORY: prior R FRANCIS, c/f sepsis COMPARISON: CT 06/29/2023, abdomen radiograph 02/19/2024 FINDINGS: Pelvis/hip: AP view of the pelvis and crosstable lateral view of the right hip. Right total hip arthroplasty without findings of hardware associated complication. No acute osseous abnormality. Moderate degenerative changes of the pubic symphysis. Degenerative changes of the bilateral sacroiliac joints and left hip. Surgical clips project over the visualized abdomen. Left femoral CVC with tip nearthe external iliac. AP and lateral views of the right knee. Status post total knee arthroplasty without findings of hardware associated complication. No acute osseous abnormality. Mild prepatellar soft tissue swelling with small knee joint effusion. Scattered vascular calcification. IMPRESSION: 1. Status post right total hip arthroplasty and total knee arthroplasty without findings of hardware associated complication. No acute osseous abnormality. 2. Mild prepatellar soft tissue swelling with small knee joint effusion. Dr. Estela Lucas is the dictating resident. Finalized reports status indicates that the attending has reviewed the images and report, and agrees with the interpretation. Preliminary report statusshould be regarded as NOT interpreted by the attending radiologist. Workstation ID: [id number] Final Dictated by:MD Lucas Divya Dictated DT/TM:02/20/2024 3:41 Resident:MD Lucas Divya Signed by:MD Cleveland Luke A Signed (Electronic Signature):02/20/2024 3:40 a * Exam Date Time Procedure Performing Provider Status 02/19/24 10:42 PM XR Hip 2-3 Views w/AP Pelvis Right Jesus Hitchcock; Final Notes: (XR Hip 2-3 Views w/AP Pelvis Right) Reason For Exam: prior R FRANCIS, c/f sepsis XR Hip 2-3 Views w/AP Pelvis Right EXAMINATION: XR Hip 2-3 Views w/AP Pelvis Right, XR Knee 1 or 2 Views Right CLINICAL HISTORY: prior R FRANCIS, c/f sepsis COMPARISON: CT 06/29/2023, abdomen radiograph 02/19/2024 FINDINGS: Pelvis/hip: AP view of the pelvis and crosstable lateral view of the right hip. Right total hip arthroplasty without findings of hardware associated complication. No acute osseous abnormality. Moderate degenerative changes of the pubic symphysis. Degenerative changes of the bilateral sacroiliac joints and left hip. Surgical clips project over the visualized abdomen. Left femoral CVC with tip nearthe external iliac. AP and lateral views of the right knee. Status post total knee arthroplasty without findings of hardware associated complication. No acute osseous abnormality. Mild prepatellar soft tissue swelling with small knee joint effusion. Scattered vascular calcification. IMPRESSION: 1. Status post right total hip arthroplasty and total knee arthroplasty without findings of hardware associated complication. No acute osseous abnormality. 2. Mild prepatellar soft tissue swelling with small knee joint effusion. Dr. Estela Lucas is the dictating resident. Finalized reports status indicates that the attending has reviewed the images and report, and agrees with the interpretation. Preliminary report statusshould be regarded as NOT interpreted by the attending radiologist. Workstation ID: [id number] Final Dictated by:MD Lucas Divya Dictated DT/TM:02/20/2024 3:41 Resident:MD Lucas Divya Signed by:MD Cleveland Luke A Signed (Electronic Signature):02/20/2024 3:40 a * Exam Date Time Procedure Performing Provider Status 02/19/24 9:01 PM XR Foot Complete 3+ Views Left Isaiah Santos; Final Notes: (XR Foot Complete 3+ Views Left) Reason For Exam: foot wounds XR Foot Complete 3+ Views Left EXAMINATION: XR Foot Complete 3+ Views Right, XR Foot Complete 3+ Views Left CLINICAL HISTORY: foot wounds COMPARISON: None FINDINGS: Right foot: 3 views the right foot obtained nonweightbearing. No fracture. Lesser toe hammertoe deformities. Nocortical destruction or periosteal reaction. Forefoot soft tissue swelling, nonspecific. Hindfoot degenerative changes. Atherosclerotic vascular calcification. Left foot: 3 views the left foot obtained nonweightbearing. No fracture. Lesser toe hammertoe deformities. No cortical destruction or periosteal reaction. No focal soft tissue swelling. Hindfoot degenerative changes. Atherosclerotic vascular calcification. IMPRESSION: Diffuse right forefoot soft tissue swelling, nonspecific. No definite evidence of osteomyelitis noting limited evaluation of the toes. Workstation ID: [id number] Final Dictated by:MD Kraft Cristy N Dictated DT/TM:02/19/2024 9:23 Signed by:MD Kraft Cristy N Signed (Electronic Signature):02/19/2024 9:21 p * Exam Date Time Procedure Performing Provider Status 02/19/24 9:01 PM XR Foot Complete 3+ Views Right Isaiah Santos; Final Notes: (XR Foot Complete 3+ Views Right) Reason For Exam: foot wounds XR Foot Complete 3+ Views Right EXAMINATION: XR Foot Complete 3+ Views Right, XR Foot Complete 3+ Views Left CLINICAL HISTORY: foot wounds COMPARISON: None FINDINGS: Right foot: 3 views the right foot obtained nonweightbearing. No fracture. Lesser toe hammertoe deformities. Nocortical destruction or periosteal reaction. Forefoot soft tissue swelling, nonspecific. Hindfoot degenerative changes. Atherosclerotic vascular calcification. Left foot: 3 views the left foot obtained nonweightbearing. No fracture. Lesser toe hammertoe deformities. No cortical destruction or periosteal reaction. No focal soft tissue swelling. Hindfoot degenerative changes. Atherosclerotic vascular calcification. IMPRESSION: Diffuse right forefoot soft tissue swelling, nonspecific. No definite evidence of osteomyelitis noting limited evaluation of the toes. Workstation ID: [id number] Final Dictated by:MD Kraft Cristy N Dictated DT/TM:02/19/2024 9:23 Signed by:MD Kraft Cristy N Signed (Electronic Signature):02/19/2024 9:21 p * Exam Date Time Procedure Performing Provider Status 02/19/24 7:19 PM XR Chest 1 View Lisa Hernandez Notes: (XR Chest 1 View) Reason For Exam: central line placement XR Chest 1 View EXAMINATION: XR Chest 1 View CLINICAL HISTORY: central line placement COMPARISON: CT from June 29, 2023 performed at outside institution FINDINGS: Single upright AP radiograph of the chest. Normal cardiopericardial silhouette. Normal pulmonary vasculature. Calcified nodules in the right lung with calcified hilar adenopathy compatible sequela of granulomatous disease. No pleural effusion. No pneumothorax. Rotator cuff arthropathy in both shoulders. IMPRESSION: 1. No central line visualized. 2. No acute cardiopulmonary abnormality. Dr. Saul Herring MD, MS is the dictating resident. Finalized reports status indicates that the attending has reviewed the images and report, and agrees with the interpretation. Preliminary report status should be regarded as NOT interpreted by the attending radiologist. Workstation ID: [id number] Final Dictated by:MD Herring Daniel Dictated DT/TM:02/19/2024 7:34 Resident:MD Herring Daniel Signed by:MD Kraft Cristy N Signed (Electronic Signature):02/19/2024 7:33 p * Exam Date Time Procedure Performing Provider Status 02/19/24 7:19 PM XR Abdomen 1 View Lisa Hernandez Notes: (XR Abdomen 1 View) Reason For Exam: Central Line XR Abdomen 1 View EXAM: XR Abdomen 1 View HISTORY: Central Line COMPARISON: None. FINDINGS: Single supine AP radiograph of the abdomen. Right lower abdominal surgical clips. Left pelvis surgical clip. Partially visualized right hip arthroplasty. Paucity of small bowel gas. Gas scattered in nondilated colon. Suboptimal view for evaluation of pneumoperitoneum. Mild amount of fecal material seen scattered throughout the colon. Degenerative changes of the spine. IMPRESSION: 1. No central line visualized. 2. Nonobstructive bowel gas pattern. Dr. Saul Herring MD, MS is the dictating resident. Finalized reports status indicates that the attending has reviewed the images and report, and agrees with the interpretation. Preliminary report status should be regarded as NOT interpreted by the attending radiologist. Workstation ID: [id number] Final Dictated by:MD Herring Daniel Dictated DT/TM:02/19/2024 7:52 Resident:MD Herring Daniel Signed by:MD Kraft Cristy N Signed (Electronic Signature):02/19/2024 7:51 p Vital Signs Most recent to oldest [Reference Range]: 1 2 3 Height 182.88 cm (02/19/24 8:48 PM) Patient Weight 127.5 kg (02/26/24 6:06 AM) 120.5 kg (02/24/24 5:00 AM) 120 kg (02/23/24 4:44 AM) Temperature [36.5-37.9 DegC] 36 DegC *LOW* (02/26/24 4:18 AM) 36.2 DegC *LOW* (02/25/24 11:46 PM) 35.9 DegC *LOW* (02/25/24 8:25 PM) Heart Rate 80 bpm (02/26/24 9:31 AM) 69 bpm (02/26/24 4:18 AM) 78 bpm (02/25/24 11:46 PM) Respiratory Rate 20 br/min (02/26/24 4:18 AM) 24 br/min (02/25/24 11:46 PM) 18 br/min (02/25/24 8:25 PM) Blood Pressure 135/75mmHg (02/26/24 4:18 AM) 122/66mmHg (02/25/24 11:46 PM) 154/104mmHg (02/25/24 8:25 PM) Mean Blood Pressure 90 mmHg (02/26/24 4:18 AM) 81 mmHg (02/25/24 11:46 PM) 120 mmHg (02/25/24 8:25 PM) Cuff Pulse Pressure 60 mmHg (02/26/24 4:18 AM) 56 mmHg (02/25/24 11:46 PM) 50 mmHg (02/25/24 8:25 PM) BP Location # 1 Left Arm (02/26/24 4:18 AM) Left Arm (02/25/24 11:46 PM) Left Arm, Non-invasive (02/25/24 8:25 PM) Social History Social History Type Response Smoking Status Never smoked cigaret afshan Sex Male Sex Representation Male (finding) Implantable Device List Procedure Provider Procedure Date Device Type Site Unknown Unknown 02/23/24 Unknown Unknown Device Identifier Serial Number Lot or Batch Number Manufacturing Date Expiration Date Distinct Identification Code MRI Safety Implantable Status Assigning Authority Unknown Unknown [id number] Unknown 11/05/26 Unknown Unknown Active Unknown Unknown Unknown [id number] Unknown 02/05/25 Unknown Unknown Active Unknown Procedure Provider Procedure Date Device Type Site Unknown Unknown 07/01/23 Unknown Unknown Device Identifier Serial Number Lot or Batch Number Manufacturing Date Expiration Date Distinct Identification Code MRI Safety Implantable Status Assigning Authority Unknown Unknown [id number] Unknown 03/07/24 Unknown Unknown Active Unknown Procedure Provider Procedure Date Device Type Site Unknown Unknown 11/04/22 Unknown Unknown Device Identifier Serial Number Lot or Batch Number Manufacturing Date Expiration Date Distinct Identification Code MRI Safety Implantable Status Assigning Authority Unknown Unknown [id number] Unknown 04/07/25 Unknown Unknown Active Unk nown Unknown Unknown [id number] Unknown 01/05/31 Unknown Unknown Active Unkn own Unknown Unknown [id number] Unknown 08/05/32 Unknown Unknown Active Unknown Unknown Unknown [id number] Unknown 06/07/27 Unknown Unknown Active Unknown Unknown Unknown [id number] Unknown 08/05/26 Unknown Unknown Active Unkn own Anes H&P * MD Hughes Shubha: MODIFY, PERFORM, SIGN, VERIFY Event Display: Anes H&P Authored Date: [id number] Patient: RAFY PALACIO Age: 78 years Sex: Male : 1945 Associated Diagnoses: None Author: MD Ellen, Krys Preoperative Information Pre-Operative Diagnosis: Right Knee Infection . Anesthiesia Preop Info: Procedure: RIGHT KNEE IRRIGATION AND DEBRIDEMENT, POLYETHALENE LINER EXCHANGE Date: 02/23/24 13:50 Surgeons: MD Kern Charles M Diagnosis: . Reference Report Created By: 02/22/2024 13:05:00, LILIANA Abbott Douglas C, By Chart review. PMHX (relevant to procedure): 78 y/o M with PMH of HFpEF (EF 60%) CAD (stent placement x2), atrial fibrillation (amiodarone), HTN, LEONARD, rheumatoid arthritis, R TKA in 2022 complicated by prosthetic joint infection s/p I&D and poly exchange 07/01 now transferred from [facility] with concern for sepsis. Patient was seen in OSH ED for HTN after being found with HTN and headache by home health nurse oneday after 3 week stay at [facility]. The patient states he was admitted to the [facility] for wound care treatment and rehab. During the stay he contracted COVID. He underwent 5 days of inpatient therapy and continues to have sore throat and mild cough. Tested positive approximately 2 weeks ago. Airway records: 02/19 failed LMA #5, Glidescope without issue Relevant Labs: H/H 04/06 Medical History Medical Devices: Medical Devices: none . Health Status Allergies: Allergic Reactions (Selected) Severity Not Documented Cats- Throat closes up. No Known Medication Allergies. Medications: Medication List (Selected) Inpatient Medications Ordered DULoxetine: 60 mg, PO, Daily Dilaudid: 0.25 mg, IV Push, q4h, PRN: breakthrough pain Flomax: 0.4 mg, PO, Daily Melatonin: 5 mg, PO, qhs, PRN: Insomnia MiraLax: 17 g, PO, Daily Narcan: 0.04 mg, IV Push, As indicated, PRN: respiratory depression Protonix: 40 mg, PO, Daily Sucrets, Wild Conklin: 1 lozenge, buccal, q2h, PRN: sore throat acetaminophen: 1,000 mg, PO, q8h calcium gluconate: 1,000 mg, 50 mL, 50 mL/HR, IV, As indicated, PRN: see order comments ertapenem: 1,000 mg, 10 mL, 100 mL/HR, IV, q24h gabapentin: 300 mg, PO, tid guaiFENesin extended release: 1,200 mg, PO, bid heparin: 5,000 unit, subQ, q8h latanoprost 0.005% ophthalmic solution: 1 drop, both eyes, qhs metoprolol tartrate: 12.5 mg, PO, bid mupirocin 2% nasal ointment: 1 appl, each nostril, bid ondansetron: 4 mg, IV Push, ONCE, PRN: nausea and vomiting oxyCODONE: 10 mg, PO, q4h, PRN: pain - moderate (4-6) oxyCODONE: 15 mg, PO, q4h, PRN: pain - severe (7-10) pravastatin: 40 mg, PO, Daily ranolazine: 500 mg, PO, bid senna: 8.6 mg, PO, Daily vancomycin: 1,500 mg, 500 mL, 333.33 mL/HR, IV, q24h Prescriptions Prescribed cefuroxime 500 mg oral tablet: 1 tab, PO, bid, for 11 day, 22 tab clotrimazole 10 mg oral lozenge: 1 lozenge, PO, Daily, 30 lozenge esomeprazole 40 mg oral delayed release capsule: 1 cap, PO, Daily, for 90 day, 90 cap ferrous sulfate 325 mg (65 mg elemental iron) oral tablet: 1 tab, PO, Daily, for 90 day, 90 tab furosemide 20 mg oral tablet: 1 tab, PO, Daily, take 1 tab daily as needed for weight gain, PRN: discomfort, 30 tab isosorbide mononitrate 60 mg oral tablet, extended release: 1 tab, PO, qAM, for 90 day, 90 tab nystatin 100,000 units/g topical powder: See Instructions, APPLY topically daily for 30 days; Applyto feet daily with dressing changes., 60 g olmesartan 5 mg oral tablet: 1 tab, PO, Daily, 90 tab oxyCODONE 5 mg oral tablet: 1 tab, PO, qhs, take 1-2 tabs at bedtime as needed, PRN: as needed for pain, 30 tab pravastatin 40 mg oral tablet: 1 tab, PO, Daily, for 90 day, 90 tab ranolazine 500 mg oral tablet, extended release: 1 tab, PO, bid, for 30 day, 60 tab Documented Medications Documented metoprolol tartrate 25 mg oral tablet: 0.5 tab, PO, bid. Histories Procedure History: Revision ([id number]) on 07/01/2023 at 77 Years. Comments: 08/06/2023 13:05 JOEL Ballesteros MAMolly r tka Knee replacement ([id number]) on 11/04/2022 at 76 Years. Comments: 12/18/2022 12:53 EDT Arelis Ballesteros MA, Tina right flush in knee right ([id number]) in the month of 03/2022 at 76 Years. Comments: 07/25/2022 08:55 JOEL Gilliam MA, Tyler flush in knee spine surgery x2 ([id number]). Comments: 07/25/2022 08:56 OJEL Gilliam MA, Tyler spine surgery stent x2 ([id number]). Colostomy bag ([id number]). Large intestine operation partial removal ([id number]). Knee replacement left ([id number]). Rotator cuff repair bi lateral (240558710). Knee right tendon ([id number]). achilles tendon right ([id number]). Hip replacement right x2 ([id number]). Hernia (583435123). Cataract bilateral (382283354). Colonoscope ([id number]). Prostate laser ([id number]).. Social History: Cigarrette Smoker? Never smoked cigarettes Other Tobacco Use: Never used other tobacco products Alcohol: Recreational Drugs: . Physical Examination VS/Measurements: Vital Signs 02/23/2024 14:22 EDT Temperature 36.9 DegC Temperature Route Temporal Heart Rate 61 bpm Respiratory Rate 18 br/min Systolic Blood Pressure 155 mmHg Diastolic Blood Pressure 86 mmHg BP Location # 1 Left Arm, Non-invasive BP Cuff Size Regular Cuff Pulse Pressure 69 mmHg Oxygen Therapy Room Air SpO2 98 % . Airway: Mallampati classification: III (soft palate, base of uvula visible). Distance: Adequate. Mouth: Adequate opening, Teeth ( Missing ). Respiratory: Breath sounds are equal. Cardiovascular: Regular rhythm, AF with PVCs. Anesthesiologist Assessment and Plan Problems: No previous anesthetic complications. ASA Classification: Class III. Anesthetic Plan: Anesthetic technique discussed: General anesthesia. Induction discussed: Intravenously. Airway plan discussed: Laryngeal mask airway, Oral endotracheal tube, Nasal Cannula. Risks discussed: Nausea-vomiting, Headache, Sore throat, Dental injury, Eye injury, Allergic reaction, Serious complications, Aspiration. Informed consent: Signed by patient. History, Physical Exam, Assessment and Plan Completed: 02/23/2024 13:53:00, MD Ellen, [facility]. Review / Management Results Review: Lab results 02/22/2024 05:12 EDT Magnesium 2.1 mg/dL Ionized Calcium 1.13 mmol/L LOW Phosphorus 2.5 mg/dL WBC Count 17.20 K/uL HI Hemoglobin 10.1 g/dL LOW Hematocrit 30.9 % LOW RBC Count 2.98 M/uL LOW MCV 103.7 fL HI MCHC 32.7 g/dL MCH 33.9 pg HI RDW 14.7 % HI Platelet Count 186 K/uL MPV 10.4 fL Type of Diff: AUTO Immature Gran% 0.9 % Neut% 87.7 % Lymph% 4.4 % [place]ien[place]% 6.7 % Baso% 0.1 % Eos% 0.2 % Immat Gran, Abs 0.15 K/uL Neut, Abs 15.08 K/uL HI Lymph, Abs 0.76 K/uL LOW [place], Abs 1.15 K/uL HI Baso, Abs 0.02 K/uL Eos, Abs 0.04 K/uL 02/21/2024 13:50 EDT Vancomycin 10.1 ug/mL 02/21/2024 08:05 EDT Estimated CrCl 78.48 mL/min 02/21/2024 04:47 EDT Request of Physician BMP Action Taken YES 02/21/2024 04:23 EDT Sodium 135 mmol/L LOW Potassium 4.8 mmol/L Chloride 101 mmol/L HCO3 23 mmol/L Anion Gap 11 mmol/L BUN 26 mg/dL HI Creatinine 0.99 mg/dL eGFR CKD-EPI 77 mL/min/1.73 m2 Glucose 178 mg/dL HI Calcium 8.3 mg/dL LOW BNP, NT-Pro REQUEST CREDITED pg/mL 02/21/2024 04:21 EDT Magnesium 2.1 mg/dL Ionized Calcium 1.13 mmol/L LOW Phosphorus 2.3 mg/dL LOW WBC Count 17.60 K/uL HI Hemoglobin 10.5 g/dL LOW Hematocrit 31.2 % LOW RBC Count 3.07 M/uL LOW MCV 101.6 fL HI MCHC 33.7 g/dL MCH 34.2 pg HI RDW 15.0 % HI Platelet Count 159 K/uL MPV 10.8 fL Type of Diff: AUTO Immature Gran% 1.1 % Neut% 91.6 % Lymph% 2.5 % [place]% 4.7 % Baso% 0.1 % Eos% 0.0 % Immat Gran, Abs 0.19 K/uL Neut, Abs 16.12 K/uL HI Lymph, Abs 0.44 K/uL LOW [place], Abs 0.83 K/uL Baso, Abs 0.02 K/uL Eos, Abs 0.00 K/uL C Reactive Protein 21.54 mg/dL HI ESR 47 mm/hr HI 02/20/2024 11:40 EDT Blood Glucose 71 mg/dL (Modified) 02/20/2024 11:39 EDT Glucose Meter 71 mg/dL LOW 02/20/2024 10:45 EDT AFB Culture, Tissue Prelim: (Preliminary) Anaerobe Culture, Intraoperative Prelim: (Preliminary) Anaerobe Culture, Intraoperative Prelim: (Preliminary) Anaerobe Culture, Intraoperative Prelim: (Preliminary) Anaerobe Culture, Intraoperative Prelim: (Preliminary) Anaerobe Culture, Tissue Prelim: (Preliminary) Fungus Culture, Tissue Prelim: (Preliminary) Intraoperative Cx Prelim: Pos. (Preliminary) Intraoperative Cx Prelim: Pos. (Preliminary) Intraoperative Cx Prelim: Pos. (Preliminary) Intraoperative Cx Prelim: Pos. (Preliminary) Tissue Culture Prelim: Pos. (Preliminary) 02/20/2024 08:07 EDT Blood Glucose 99 mg/dL (Modified) 02/20/2024 08:02 EDT Glucose Meter 99 mg/dL 02/20/2024 07:43 EDT Estimated CrCl 74.00 mL/min 02/20/2024 04:26 EDT Glucose Meter 119 mg/dL HI Blood Glucose 119 mg/dL (Modified) 02/20/2024 04:25 EDT Sodium REQUEST CREDITED mmol/L Potassium REQUEST CREDITED mmol/L Chloride REQUEST CREDITED mmol/L HCO3 REQUEST CREDITED mmol/L Anion Gap REQUEST CREDITED mmol/L BUN REQUEST CREDITED mg/dL Creatinine REQUEST CREDITED mg/dL eGFR CKD-EPI REQUEST CREDITED mL/min/1.73 m2 Glucose REQUEST CREDITED mg/dL Calcium REQUEST CREDITED mg/dL Phosphorus REQUEST CREDITED mg/dL Albumin REQUEST CREDITED g/dL Request of Physician Neph panel Action Taken YES 02/20/2024 04:24 EDT Sodium 136 mmol/L Potassium 4.5 mmol/L Chloride 103 mmol/L HCO3 23 mmol/L Anion Gap 10 mmol/L BUN 32 mg/dL HI Creatinine 1.05 mg/dL eGFR CKD-EPI 72 mL/min/1.73 m2 Glucose 116 mg/dL HI Calcium 8.4 mg/dL Magnesium 2.0 mg/dL Ionized Calcium 1.12 mmol/L LOW Phosphorus 2.7 mg/dL WBC Count 14.75 K/uL HI Hemoglobin 10.7 g/dL LOW Hematocrit 31.6 % LOW RBC Count 3.16 M/uL LOW MCV 100.0 fL HI MCHC 33.9 g/dL MCH 33.9 pg HI RDW 15.0 % HI Platelet Count 151 K/uL MPV 10.7 fL Type of Diff: AUTO Immature Gran% 1.1 % Neut% 87.3 % Lymph% 4.6 % [place]ien[place]% 5.8 % Baso% 0.1 % Eos% 1.1 % Immat Gran, Abs 0.16 K/uL Neut, Abs 12.88 K/uL HI Lymph, Abs 0.68 K/uL LOW [place]ien[place], Abs 0.85 K/uL Baso, Abs 0.02 K/uL Eos, Abs 0.16 K/uL Lactic Acid 0.7 mmol/L Albumin 2.8 g/dL LOW 02/20/2024 00:24 EDT Glucose Meter 122 mg/dL HI Blood Glucose 122 mg/dL HI (Modified) 02/20/2024 00:22 EDT ABO/Rh O NEGATIVE Antibody Screen NEGATIVE Crossmatch Exp 02/23/2024 [facility] Transfusion # NRQ Component Type RED CELLS # Units Ordered 2 02/19/2024 19:45 EDT Estimated CrCl 74.00 mL/min 02/19/2024 19:30 EDT Nucleated CellCnt,Fl 105,864 /uL RBC, Fluid >87718 /uL Neutrophil, Fluid 88 % Lymphocyte, Fluid 0 % Basophil, Fluid 0 % Eosinophil, Fluid 0 % Bienville/Mac/Meso, fl 12 % Other Mononuc, Fluid 0 % Synovial Fl Crystals NONE DETECTED Hold Extra Fluid SPECIMEN HELD IN VIROLOGY. CALL [id number] TO ADD STUDIES. Anaerobe Culture, Fluid Prelim: (Preliminary) Fluid Culture Final: Pos. 02/19/2024 19:10 EDT Blood Glucose 101 mg/dL (Modified) 02/19/2024 18:55 EDT Request of Physician ESR Action Taken YES 02/19/2024 18:54 EDT Sodium 137 mmol/L Potassium 4.7 mmol/L Chloride 103 mmol/L HCO3 26 mmol/L Anion Gap 8 mmol/L BUN 36 mg/dL HI Creatinine 1.05 mg/dL eGFR CKD-EPI 72 mL/min/1.73 m2 Glucose 110 mg/dL HI Calcium 8.0 mg/dL LOW Magnesium 2.1 mg/dL Ionized Calcium 1.04 mmol/L LOW Phosphorus 3.0 mg/dL WBC Count 16.89 K/uL HI Hemoglobin 11.2 g/dL LOW Hematocrit 34.4 % LOW RBC Count 3.35 M/uL LOW MCV 102.7 fL HI MCHC 32.6 g/dL MCH 33.4 pg HI RDW 14.9 % HI Platelet Count 171 K/uL MPV 10.6 fL Type of Diff: AUTO Immature Gran% 1.8 % Neut% 85.6 % Lymph% 6.7 % [place]ien[place]% 4.9 % Baso% 0.1 % Eos% 0.9 % Immat Gran, Abs 0.30 K/uL Neut, Abs 14.47 K/uL HI Lymph, Abs 1.13 K/uL [place]ien[place], Abs 0.82 K/uL Baso, Abs 0.01 K/uL Eos, Abs 0.16 K/uL Protime INR 1.5 HI Protime 17.8 seconds HI Lactic Acid 1.0 mmol/L Vancomycin 31.0 ug/mL Critical High ALT 28 unit/L Bilirubin, Total 0.5 mg/dL Bilirubin, Direct 0.2 mg/dL Alkaline Phosphatase 63 unit/L (Modified) AST 32 unit/L Albumin 3.0 g/dL LOW Total Protein 5.1 g/dL LOW C Reactive Protein 5.49 mg/dL HI ESR 21 mm/hr MRSA Surveillance, on Admission MRSA NOT detected Urine Culture Final: Pos. (Modified) 02/19/2024 18:35 EDT Glucose Meter 110 mg/dL HI 02/19/2024 16:37 EDT Blood Culture Prelim: (Preliminary) 02/19/2024 16:36 EDT Color, Urine YELLOW Appearance, Urine CLEAR Glucose, Urine NEGATIVE mg/dL Bilirubin, Urine NEGATIVE Ketones, Urine NEGATIVE mg/dL Spec Grav, Urine 1.019 Hemoglobin, Urine NEGATIVE pH, Urine 6.0 unit Protein, Urine NEGATIVE mg/dL Urobilinogen, Urine 0.1-1.0 EU/dL Nitrite, Urine NEGATIVE Leuk Est, Urine NEGATIVE Blood Culture Prelim: (Preliminary) . Electronic Signature on File Electronically Reviewed/Signed by: Krys Hughes M.D. Author Signature Dt/Tm:02/23/2024 02:54 PM Department of Anesthesia SS * MD Calderon Justin: PERFORM, SIGN, VERIFY DO Hearn Jacob: MODIFY Event Display: Anes H&P Authored Date: [id number] Patient: RAFY PALACIO Age: 78 years Sex: Male : 1945 Associated Diagnoses: None Author: MD Calderon Justin Preoperative Information Pre-Operative Diagnosis: Septic arthritis . Anesthiesia Preop Info: Procedure: RIGHT KNEE IRRIGATION AND DEBRIDEMENT, ANTIBIOTIC BEADS, WOUND VAC Date: 02/20/24 07:30 Surgeons: MD Rudy, Jordan Del Castillo Diagnosis: . History of Present Illness 78 y/o M with PMH of HFpEF (EF 60%) CAD (stent placement x2), atrial fibrillation (amiodarone), HTN, LEONARD, rheumatoid arthritis, R TKA in 2022 complicated by prosthetic joint infection s/p I&D andpoly exchange 07/01 now transferred from [facility] with concern for sepsis. Patient was seen in OSH ED for HTN after being found with HTN and headache by home health nurse oneday after 3 week stay at [facility]. The patient states he was admitted to the [facility] for wound care treatment and rehab. During the stay he contracted COVID. He underwent 5 days of inpatient therapy and continues to have sore throat and mild cough. Tested positive approximately 2 weeks ago. Upon workup in the ED the patient was noted to have increased WBC and swollen red knee and [facility] [place] and [place]. He was initially hypotensive with concern for sepsis. Received 2L IVF bolus and started on low dose norepi infusion that was weaned off prior to arrival. Knee aspiration at [facility] positive with >100,000 nuc cells. Access: triple-lumen L femoral CVC, 20G PIV NPO: ordered after midnight Prior airway 07/01/23: Pertinent labs: Neph panel WNL; H/H 10.7/31.6; plt 151 Blood products: type and cross 2 units - expires 02/22 Prior TTE 07/03/23: Summary 1. Normal left ventricular size and systolic function with no regional wall motion abnormalities. 2. Estimated ejection fraction 65-70%. 3. No left ventricular hypertrophy. 4. Right ventricular dilation with reduced systolic function. 5. Right atrial dilation. 6. Mild aortic regurgitation. 7. No large valvular vegetations noted. 8. Insufficient data for estimation of pulmonary artery systolic pressures. 9. No prior studies for comparison. Medical History Medical Devices: Medical Devices: none . Health Status Allergies: Allergic Reactions (Selected) Severity Not Documented Cats- Throat closes up. No Known Medication Allergies. Medications: Medication List (Selected) Prescriptions Prescribed Ultram 50 mg oral tablet: 1 tab, PO, q8h, 21 tab doxycycline monohydrate 100 mg oral capsule: 1 cap, PO, bid, for 30 day, 60 cap, 5 Refill(s) oxyCODONE 5 mg oral tablet: 5 mg, PO, q4h, PRN: pain - moderate (4-6), 20 tab, 0 Refill(s) Documented Medications Documented DULoxetine 60 mg oral delayed release capsule: 90 each, TAKE 1 CAPSULE BY MOUTH ONCE DAILY Eliquis 2.5 mg oral tablet: 1 tab, PO, bid Klor-Con 10: 10 mEq, PO, bid, with lasix [place]-3 1000 mg oral capsule: 1 cap, PO, Daily Senna 8.6 mg oral tablet: 1 tab, PO, qhs Sutab oral tablet: 0.5 tab, PO Travatan Z: 1 drop, both eyes, qPM Tylenol 500 mg oral tablet: 2 tab, PO, q8h Vitamin C: 1,000 mg, PO, Daily amiodarone 200 mg oral tablet: 1 tab, PO, Daily ascorbic acid/chondroitin/glucosamine/manganese 20 mg-400 mg-500 mg-2 mg oral capsule: 1 tab, PO, Daily aspirin: 81 mg, PO, Daily cefpodoxime 200 mg oral tablet: TAKE 2 TAB ORALLY EVERY 12 HOURS FOR 14 DAYS MUST ADMINISTER WITH AMEAL/FOOD cyanocobalamin 500 mcg oral tablet: esomeprazole 40 mg oral delayed release capsule: 1 cap, PO, Daily folic acid 1 mg oral tablet: 30 each, TAKE 1 TABLET BY MOUTH ONCE DAILY IN THE MORNING furosemide 20 mg oral tablet: 1 tab, PO, Daily, PRN: prn gabapentin 100 mg oral capsule: See Instructions, 300 mg am and pm and 100 mg in the middle of the day hydrOXYzine hydrochloride 10 mg oral tablet: 14 each, TAKE 1 TABLET BY MOUTH AT BEDTIME NEEDED FOR ANXIETY OR INSOMNIA isosorbide mononitrate 60 mg oral tablet, extended release: 1 tab, PO, qAM lactobacillus acidophilus oral capsule: 1 cap, PO, Daily melatonin: 5 mg, PO, qhs metoprolol tartrate 25 mg oral tablet: mirtazapine 15 mg oral tablet: 30 each, TAKE 1 TABLET BY MOUTH AT BEDTIME nitroglycerin: 0.4 mg, SL, q5min, PRN: as needed for chest pain pravastatin 40 mg oral tablet: 1 tab, PO, qhs ranolazine: 500 mg, PO, bid sulfamethoxazole-trimethoprim 800 mg-160 mg oral tablet: TAKE 1 TABLET BY MOUTH TWICE DAILY FOR 13 DAYS. Histories Procedure History: Revision ([id number]) on 07/01/2023 at 77 Years. Comments: 08/06/2023 13:05 JOEL Ballesteros MA, Tina r tka Knee replacement ([id number]) on 11/04/2022 at 76 Years. Comments: 12/18/2022 12:53 ANTONIO Ballesteros MA, Tina right flush in knee right ([id number]) in the month of 03/2022 at 76 Years. Comments: 07/25/2022 08:55 JOEL Gilliam MA, Tyler flush in knee spine surgery x2 ([id number]). Comments: 07/25/2022 08:56 JOEL Gilliam MA, Tyler spine surgery stent x2 ([id number]). Colostomy bag ([id number]). Large intestine operation partial removal ([id number]). Knee replacement left (103700657). Rotator cuff repair bi lateral ([id number]). Knee right tendon ([id number]). achilles tendon right ([id number]). Hip replacement right x2 ([id number]). Hernia (506239394). Cataract bilateral (027847191). Colonoscope ([id number]). Prostate laser ([id number]).. Social History: Cigarrette Smoker? Other Tobacco Use: Alcohol: Recreational Drugs: . Physical Examination VS/Measurements: Vital Signs 02/20/2024 04:00 EDT Temperature 36.4 DegC LOW Temperature Central Warm Heart Rate 79 bpm Respiratory Rate 15 br/min Systolic Blood Pressure 141 mmHg Diastolic Blood Pressure 77 mmHg Mean Blood Pressure 93 mmHg Cuff Pulse Pressure 64 mmHg Oxygen Therapy Room Air SpO2 98 % . General: Alert and oriented, No acute distress. Airway: Mallampati classification: III (soft palate, base of uvula visible). Mouth: Within normal limits, Teeth ( Within normal limits ). Head: Nieto. Neck: Supple, Full range of motion. Respiratory: Lungs are clear to auscultation, Respirations are non-labored. Cardiovascular: Normal rate, Regular rhythm. Vascular Access: Peripheral, Central. Anesthesiologist Assessment and Plan Problems: No previous anesthetic complications. Cardiac risk factors: CAD, CHF. Risk of major adverse cardiac event (Revised Cardiac Risk Index): 2 = 7%. Cardiovascular risk associated with the procedure: Elevated (>=1%). ASA Classification: Class III. Anesthetic Plan: Anesthetic technique discussed: General anesthesia. Induction discussed: Intravenously. Airway plan discussed: Laryngeal mask airway, Oral endotracheal tube. Risks discussed: Nausea-vomiting, Headache, Sore throat, Dental injury, Eye injury, Allergic reaction, Serious complications, Nerve damage, Aspiration. Informed consent: Signed by patient. History, Physical Exam, Assessment and Plan Completed: 02/19/2024 23:15:00, MD Farideh, Cass. Electronic Signature on File Electronically Reviewed/Signed by: Dominick Calderon MD Author Signature Dt/Tm:02/20/2024 09:14 AM Department of Anesthesia [facility]YSS[facility] Surgical operation note * MD Erlin, Manjit Franklin: PERFORM Event Display: .Operative Report Authored Date: [id number] Name:RAFY PALACIO Patient Number:[id number] :1945 Date of Service:02/23/2024 SURGEON: Manjit Kern MD PhD CLERICAL ADMINISTRATOR(s): Irwin andrews MD; MD Sarah PREOPERATIVE DIAGNOSIS: New acute infection righttotal knee arthroplasty POSTOPERATIVE DIAGNOSIS: Same OPERATION PERFORMED: 1. Revision tibial polyethylene 2. Sharp excisional debridement right knee3. Insertion ofantibiotic impregnated resorbable beads ANESTHESIA: GETA with periarticular injection ESTIMATED BLOOD LOSS: 250 cc DRAINS: None COMPLICATIONS: None FINDINGS: Moderate fluid in his kneeand about 70 to 80% of the extensor mechanismremovedwith the prior incision at the level of the patella. SPECIMENS: Tissue culture andthe removed tibial polyethylene INDICATIONS: Mr. Lange has a complicated history. He had an infection in his knee prior to his arthroplastyandin June developed an MRSA infection in his knee. This wastreated with debridement polyethylene exchange. He did have aseptic episode in October with Enterobacter but that time his knee did not seem to beaffected. He has had pain for the last week or so andcultures have shown an Enterobacter infectionnow in his right knee. This was treated with debridement on Thursday and he now returns for additionaltreatment. OPERATION: Patient brought to the operative room awake and alert. Excellent anesthesia was induced. Theright knee was prepped and draped in normal sterile manner. The prior incisions were removedand the knee was open. There is no obvious purulence in the superficial tissues or deep in the knee. Thearthrotomy sutures were removed and the arthrotomy wasopened. A sharp excisionaldebridement was performed in the suprapatellar poucharound the patella fat padandelsewhere inthe joint as indicated. The tibial polyethylene was removed without difficulty. Partial medial releasewas performed. The wound was irrigated with 6 L of pulse lavageCondaa Betadine solution for 5 minutes, and another3 L of pulse lavage. A realsize 5, 10 mmposterior stabilized [place] polyethylenewas impacted in the place. The knee was reduced and motion stability were unchanged from the preoperative status. He did have apre-existing flexion contracture but there wasnot much that we could do about that. 1 pack of beads was prepared containing 1 g of [id number] mg of gentamicin. Please replace in the medial and lateralsuprapatellar pouch. Extensor mechanism was closed with interrupted #1 Vicryl sutures. Care was taken toperform a strong closure of the quadriceps mechanism. 2 drains were left under the extensor mechanism. Subcutaneoustissues were closed with2-0 nylon vertical mattress sutures. Patient tolerated the procedure well and I was present for the entire procedure except for the final wound closure. Components: DePuy Sigmaposterior stabilized tibial polyethylene size 5, 10 mm I personally requested post-operative pain management to be managed by our acute pain providers. CD Electronic Signature on File Electronically Reviewed/Signed by: Manjit Kern III, MD, PhD Author Signature Dt/Tm:02/23/2024 09:06 PM Professor, Orthopaedics [facility] [place] [id number] CM * MD Rudy, Jordan Del Castillo: MODIFY MD Rudy, Jordan Del Castillo: MODIFY Event Display: .Operative Report Authored Date: [id number] OPERATIVE REPORT Name: RAFY PALACIO Patient Number: [id number] : 1945 Date of Service: 02/20/2024 SURGEON: Jordan Grant M.D. ASSISTANTS: Austin Landa MD, Indio Rahman MD PROCEDURE: 1. Arthrotomy for infection right knee 2. Partial open synovectomy right knee PREOPERATIVE DIAGNOSES: 1. Right knee periprosthetic joint infection 2. Coronary artery disease 3. Congestive heart failure 4. Hypertension 5. A-fib 6. Glaucoma 7. GERD 8. Rheumatoid arthritis 8. Obstructive sleep apnea 9. Peripheral vascular disease POSTOPERATIVE DIAGNOSES: 1. Right knee periprosthetic joint infection 2. Coronary artery disease 3. Congestive heart failure 4. Hypertension 5. A-fib 6. Glaucoma 7. GERD 8. Rheumatoid arthritis 8. Obstructive sleep apnea 9. Peripheral vascular disease ANESTHESIA: GETA ESTIMATED BLOOD LOSS: 50 cc DRAINS: 1 x 10 Slovenian Hemovac drain. FLUIDS: 1 L crystalloid URINARY OUTPUT: 350 cc via the Song CONDITION: Stable to anesthesia ICU COMPLICATIONS: None. SPECIMENS: Gross purulent fluid within the knee joint well-fixed implants, 2 specimen cups worth oftissue and fluid. TOURNIQUET TIME: 23 minutes of tourniquet time. IMPLANTS: None all implants retained FINDINGS: Gross purulence encountered immediately upon our exposure through the parapatellar approach, baseline 30 degree knee flexion contracture after a right total knee arthroplasty INDICATIONS: Bill Palacio is a 78-year-old male with past medical history of coronary disease, congestive heart failure, hypertension, A-fib, glaucoma, GERD, rheumatoid arthritis, peripheral vasculardisease that was subsequently transferred from [facility] to our surgical and anesthesia ICU unit due to concerns for septic shock originating from his right periprosthetic joint. Briefly he had an uncomplicated right total hip arthroplasty. And then unfortunately he underwent a complicated history in regards to his right primary total knee arthroplasty on November 04, [address] Manjit Kern. Fortunately he had multiple bouts periprosthetic joint infections that required washout with the prior washout being in June 2023. At that time the infectious organism was MRSA. He ultimately presented to [facility] again in October 2023 there is found to be bacteremic requiring IV antibiotics. Atthat time the knee nor the hip was aspirated. He ultimately went to the [facility] for wound care but unfortunately had COVID and required a 3-week stay. [facility]. At [facility] it showed a leukocytosis 16.5 and ESR 26 and CRP of 3.75 and a Pro-Arsalan of 0.11 with a lactic acid 1.8. He was found to be hypotensive's with systolics 70s and was put on norepinephrine. He ultimately was transferred to [facility] for further treatment. We had a discussion with Bill regarding his right knee we discussed risk and benefits of bleeding, infection, damage surrounding structures, need for further surgery, as well as the inability to clear this infection which she is at the highest risk for. We discussed with our joints colleagues management as well as stabilization at this point in time. He would like to proceed with operative intervention in the form of a right knee irrigation debridement. Informed consent was obtained, a preprocedure verification form was obtained by Dr. Jordan Grant. All of hisquestions and concerns were answered. He was appropriately marked. All questions were answered during the time of the formal consent with the patient. PROCEDURE: Today on 02/20/2024 he was brought to the operating room, excellent general anesthesia with an endotracheal tube was induced. He was subsequently transferred to a radiolucent OR table. We held antibiotics. And 1 agree that the right lower extremity was decided the procedure, images demonstrated the right lower extremity was the site as well as the marking was appropriate. A surgical timeout was performed per [facility] protocol. He was sterilely prepped in a DuraPrep solution, and then draped in our standard orthopedic fashion. We began by making incision down to his prior surgical incision. It was carried down to the extensor mechanism we developed medial and lateral flaps. We performed a medial parapatellar arthrotomy and we encountered immediate purulentmaterial out of the joint. We performed a synovectomy along the joint superiorly there is approximately 4 cm x 3 cm x 1 cm total excisional in nature with Bovie electrocautery, the use of curettes, as well as rongeurs. We then thoroughly irrigated with a total of 3 L normal saline after obtaining cultures and a specimen cup that was subsequently transferred off the field to be sent for microbiology specimen. Then antibiotics were ultimately given in the form of Ancef. We then placed cement witha Betadine soak for a total of 3 minutes and then we irrigated again with another 3 L normal saline. We then placed 1 x 10 Slovenian Hemovac and exited this drain superior laterally confirming that thiswas intra-articularly within our knee joint. Of note the knee implants all appeared stable no evidence of loosening. We then placed 1 g of vancomycin and 1.2 g of tobramycin intra-articularly around our previous total knee implants. We then closed our retinacular incision with 0 PDS suture in a figure of 8 fashion then closed our skin after releasing and developing a bit more of our medial and lateral flaps and closed the skin with a 2-0 Monocryl suture followed by a subcuticular layer of 2-0 Monocryl. We then closed the remainder of the skin with 3-0 nylon suture in a horizontal mattress fashion. The wound was then dressed in Xeroform, 4 x 4's, sterile web roll and then a large Maritza wrap. Of note he does have approximately a 30 degree flexion contracture in his knee which has been well-documented before in the past so we decided not to place him into a knee immobilizer or a Tatamy brace. He was then successfully x-rayed and was transferred to our anesthesia ICU under stable condition. All sponge and needle counts were correct at the end of the case. Of note Dr. Jordan Grant was present personally performed or supervised the entirety of the procedure from incision to wound closure. ASSESSMENT AND PLAN: 78 y/o male s/p right knee irrigation and debridement Weight bearing: Weight-bearing as tolerated RLE Physical Therapy: Consulted DVT prophylaxis: Per primary Dressinx4s, webril, MARITZA Antibiotics: Currently on Ertapenem and Vancomycin per infectious disease Pain control: per primary Drain: 10Fr hemovac x1 lateral right knee Imaging: none Labs: am CBC, BMP Home Medications: Restarted Diet/GI: ADAT : song Disclaimer: This documentation was prepared (fully or partially) utilizing [employer] Speech Recognition software. No method of documentation is perfect. Grammatical errors, random word insertions, pronoun errors and incomplete sentences are occasional consequences of the system due to software/hardware limitations and/or ambient noise. Effort is given to identify and correct these errors during the course of the documentation but it is not always able to capture every error. Any questions or concerns about the context contained within this documentation should be directed to the provider forclarification through [employer] or via our office at [phone]. I was present and scrubbed forthe entire procedure. I agree with the operative report as written by my resident/fellow which I have personally reviewedwith addenda made as necessary. Jordan Grant MD DPT Orthopaedic Trauma [facility] 02/22/2024 17:20:20 Electronic Signature on File Electronically Reviewed/Signed by: Austin Landa MD Author Signature Dt/Tm:02/21/2024 09:51 AM Resident Division of Orthopaedics Electronically Reviewed/Signed by: Jordan Grant MD Cosigner Signature Dt/Tm: 02/22/2024 05:20PM Division of Orthopaedics SG Medicine Inpt Consult * MD Marvin, Delaney Leggett: MODIFY MD Wong Laura K: MODIFY, MODIFY DO Luna Yayoi: MODIFY Event Display: Medicine Inpt Consult Authored Date: [id number] Name:RAFY PALACIO Patient Number:[id number] :1945 Date of Service:02/20/2024 Chief Complaint septic knee History of Present Illness Mr. Rafy Palacio is an 78-year old male with PMhxof CAD, HFpEF, HTN, A-Fib on Xarelto, GERD, rheumatoid arthritison Upadacitinib (Rinvoq), LEONARD, PVD who is a transfer from [facility] surgical anesthesia ICUdue to concern for septic shock originating from right septic knee, requiring pressors at [facility].He has a complicated surgical historyincludingbilateral total kneereplacement, bilateral hip replacement, multiple shoulder surgeries, and hernia repairs. Patient hadright total knee arthroplasty on 10/25/[address] Manjit Kern which was complicated by prosthetic joint infection s/pI&D and wash out 06/2023. Previous infective organisms include MRSA and Enterobacter Cloacae.Patient was also seen at [facility] in 10/2023 for bacteremia requiring IV antibiotics. Patient had a UTI3 weeks ago which involved after antibioticsand then had bilateral infections of the feet 2 weeks agowhich was also treated with antibiotics. [facility]butwas found to beCOVIDpositive on 1 week agowith coughand sore throat resulting in [facility] to feel unwell with subjective fever and chills. [facility] W[facility] 16.5, ESR 26, CRP3.75, Pro-Cal0.11, and lactate 1.3. Patient was also found to be hypotensive to 70s/40s mmHg and was put in norepinephrine 0.05. P atient was also found to still be COVID positive at [facility]. Patient was then transferred to [facility], the patienthad stable vital signs withno needs for pressors. Labs weresignificant for WBC 16.9,lactate1.2, ESR 21, and CRP 5.49. Knee aspiration at [facility] was positive for >100,000nucleated cells. Patient is nonambulatory at baseline and gets around in a wheelchair. He lives in an assisted living senior facility. Patient was evaluated and examined this evening lying comfortably in his bed on 2L NC. He reportsmild sore throat, back pain that is chronic, bilateral feet pain that is chronic 2/2 spinal stenosis, and right knee pain at surgical sight. He reports his current pain is 7/10 and worse when he moves. He denies any current headaches, subjective fevers, chills, nausea, vomiting,chest pain, abdominal pain, or shortness of breath.Patient is not on oxygen at baseline and denies any history of lung disease Patient's daughter is currently at bedside and states that she is the one that arranges thepatient'smedications in a box for him every 2 weeks. Per the patient's daughter, the patient no longer takes Amiodarone. Patient last received Upadacitinib (Rinvoq)3 weeks ago and his last dose of Xarelto was night. Also reports patient's tremors of bilateral hands have been going on for years. Family Hx: - Maternal grandparent: DM - Father: PAD Social Hx: - Smoking: Never smoker - EtOH: Denies current EtOH use - Denies any illicit orrecreational drug use Review of Systems 12 point ROS was obtained and negative except as stated in subjective/HPI. Physical Exam Vitals & Measurements T:36.1C HR:78(Monitored) RR:16 BP:142/89 SpO2:93% FIO2:30(%) Oxygen Flow:2(L/Min) Oxygen Therapy:Room Air HT:182.88cm WT:116.700kg(Dosing) WT:116.7kg General/Constitutional:Pleasant. NAD. Lying in bed with daughter at bedside HEENT: Normocephalic, atraumatic. Moist mucous membranes Cardiovascular:RRR. S1/S2. No murmurs, rubs or gallops detected. Respiratory:Lungs CTAB. No wheezing or crackles Gastrointestinal:Abdomen is hard at midline of lower half where he has had multiple hernia repairs but is otherwise soft, nontender, nondistended. No rebound tenderness or guarding Neurologic:Awake, alert, and conversational. Follows commands appropriately.Symmetrical sensation to LT to hallux bilaterally. Low amplitude tremor noted to bilateral hands Integumentary:Discoloration of distal bilateral upper extremity and distal left lower extremity and what is minimally visible of the right lower extremity. The right lower extremity is wrapped s/p I&D of the right knee so evaluation was limited. Wounds of the bilateral feet were visible. MSK:Hammer toes notedof the LLE. Gross deformitynoted oftheankleof LLE.Unable toassessRLE. Psych:Cooperative. Appropriate affect Diagnostic Results IMAGING RESULTS: (02/19/2024 19:19 EDT XR Chest 1 View) IMPRESSION: 1. No central line visualized. 2. No acute cardiopulmonary abnormality. [1] (02/19/2024 19:19 EDT XR Abdomen 1 View) IMPRESSION: 1. No central line visualized. 2. Nonobstructive bowel gas pattern. [2] (02/19/2024 21:01 EDT XR Foot Complete 3+ Views Left) IMPRESSION: Diffuse right forefoot soft tissue swelling, nonspecific. No definite evidence of osteomyelitis noting limited evaluation of the toes. [3] (02/19/2024 22:42 EDT XR Hip 2-3 Views w/AP Pelvis Right) IMPRESSION: 1. Status post right total hip arthroplasty and total knee arthroplasty without findings of hardware associated complication. No acute osseous abnormality. 2. Mild prepatellar soft tissue swelling with small knee joint effusion. [4] (02/19/2024 22:42 EDT XR Knee 1 or 2 Views Right) IMPRESSION: 1. Status post right total hip arthroplasty and total knee arthroplasty without findings of hardware associated complication. No acute osseous abnormality. 2. Mild prepatellar soft tissue swelling with small knee joint effusion. [5] Pending CT Thorax MICROBIOLOGY RESULTS: UCx: >100,000 Proteus Mirabilis Fluid Cx: Enterobacter Cloacae Complex Assessment/Plan Mr. Bill Palacio is an78 yearoldmalewith PMHxsignificant forHFpEF, CAD, Afib on Xarelto, RA onUpadacitinib (Rinvoq)and active COVID infection with acomplicatedsurgical history complicated withmultipleprosthetic jointinfectionswho [facility] with initial concern for sepsis. He is s/p I&D of right knee done today (02/20/2024) and was transferred to internal medicine as he his hemodynamically stable and no longer has ICU requirements. #Septic shock, likely secondary to prosthetic joint infection of right name #S/p I&D of right knee on 02/20/2024 #Immunocompromised status secondary toUpadacitinib (Rinvoq) #Leukocytosis, Neutrophil dominant Patient was hypotensive at 70s/40s at [facility] andrequired norepinephrine 0.025 briefly for MAP >65. Patient was hemodynamically stable with no need for furthers since arrival to [facility]. Fluid culture from joint aspiration shows Enterobacter Cloacae. Patient has also had previous Enterobacter Cloacae bacteremia in 10/2023.Patient has hadmultipleprosthetic joint infectionsinthe past and fluid culture has grown MRSA in the past. WBC count 14.75, trending down. - Ortho ID consulted, appreciate recs - Start Ertapenem 1g IV q24h - ContinueVancomysin1.5gIV q24h - LastVanclevel 31.0 -Spoke with pharmacy and this likely represents and peak and not a trough - Willcontinue Vancomycin as scheduled for tomorrow and will reevaluate and adjust dosingif needed - Pending final Cx results - Continue trending WBC with qAM CBC - Current postprocedural pain regimen: - Acetaminophen 1,000 mg PO q8h - HomeGabapentin 400 mg PO TID - Oxycodone 10 mg q4h PRN for moderate pain (4-6) - Oxycodone 15 mg q4h PRN for severe pain (7-10) - Dilaudid IV0.25 mg q4h PRN for breakthrough pain #COVID infection #Hypoxia, with new oxygen requirements of 2L NC #Concern for pneumonia and/or other pulmonary pathology Review of old records with old CXR showing lung nodules concerning for granulomas. Patient is noton oxygen at baseline and denies any known history of pulmonary pathology. - Pending CT Thorax without contrast - Maintain O2 sat >92% #Macrocytic Anemia Hemoglobin 10.7 with MCV 100 - No need for blood products - Will continue to monitor qAM CBC #Bilateral wounds of the feet - Consult wound care #Obesity - likely to complicate all aspects of care Chronic Conditions: #GERD: Continue home Duloxetine 60 mg PO daily #HTN: Holding home Metoprolol and Furosemide #CAD: Continue home Ranolazine 500 mg BID and Pravastain 40mg. Holding home Isosorbide mononitrate. #AFib: Currently Holding home Xarelto #Depression: Continue home Keqecflivu53 mg daily #Insomnia: Continue Melatonin Diet: Regular Adult Diet DVT ppx: Heparin 5000 mg SQ Code Status: Full Code The patient was staffed with Dr. Wong, the attending physician of record. The attending physician was in agreement with the assessment and plan unless otherwise noted in the attestation / addendum below. Nandini Luna DO Neurology Resident, PGY-1 Attestation Attending Attestation: I have personally seen and examined the patient with the medical student viviana. I independently obtained lubin portions of the history and exam, I personally reviewed lab data and imaging, and I agree with the assessment and plan as above. Additions were added in blue for teaching purposes. Patient transferred to medicine for ongoing IV antibiotics due to suspected ESBLand coordination of placement vs. home health. Will change cefepime to ertapenem 1g q24 per ortho ID recommendations.Patient has no known history of underlying lung disease but has multiple granulomas noted on CXR and a new O2 requirement. He states that he was first positive for COVID on 02/20. XR is not convincingfor pneumonia. Will obtain CT chest to evaluate lung parenchyma further. Delaney Wong MD Internal Medicine Chief Resident Clinical Instructor of Medicine Problem List/Past Medical History Ongoing Aftercare following right knee joint replacement surgery Arthritis of knee, right Atrial fibrillation CAD (coronary artery disease) Infection of total right knee replacement MRSA (methicillin resistant staph aureus) culture positive Peripheral vascular disease RA (rheumatoid arthritis) Right knee pain Tinea unguium Procedure/Surgical History Revision| Service Date: 07/01/2023Knee replacement| Service Date: 11/04/2022flush in knee right| Service Date: rostate laserColonoscopeCataract bilateralHerniaHip replacement right [id number] tendon rightKnee right tendonRotator cuff repair bi lateralKneereplacement leftLarge intestine operation partial removalColostomy bagstent [id number] surgery x2 Medications Inpatient acetaminophen, 1000 mg= 2 tab, PO, q8h calcium gluconate, 1000 mg= 50 mL, IV, As indicated, PRN DULoxetine, 60 mg= 2 cap, PO, Daily dyclonine topical(Sucrets, Wild Conklin), 1 lozenge, buccal, q2h, PRN Electrolyte IV Solution 1,000 mL, 1000 mL, IV Fluid ertapenem, 1,000 mg, injection, IV, Infuse Over 30 minute, q24h, Infection Source Orthopedic/Bone/Joint, Type of Therapy Definitive (for a positive culture), Routine, 02/20/24 19:00:00 EDT, 02/20/24 18:08:00 EDT gabapentin, 300 mg= 1 cap, PO, tid heparin, 5000 unit= 1 mL, subQ, q8h HYDROmorphone(Dilaudid), 0.25 mg= 0.25 mL, IV Push, q4h, PRN latanoprost ophthalmic(latanoprost 0.005% ophthalmic solution), 1 drop, both eyes, qhs melatonin(Melatonin), 5 mg= 1 tab, PO, qhs, PRN metoprolol(metoprolol tartrate), 12.5 mg= 0.5 tab, PO, bid mupirocin topical(mupirocin 2% nasal ointment), 1 appl, each nostril, bid naloxone(Narcan), 0.04 mg= 0.1 mL, IV Push, As indicated, PRN ondansetron, 4 mg= 2 mL, IV Push, ONCE, PRN oxyCODONE, 10 mg= 1 tab, PO, q4h, PRN oxyCODONE, 15 mg= 1 tab, PO, q4h, PRN pantoprazole(Protonix), 40 mg= 1 tab, PO, Daily pravastatin, 40 mg= 2 tab, PO, Daily ranolazine, 500 mg= 1 tab, PO, bid vancomycin, 1500 mg= 500 mL, IV, q24h Home cefuroxime(cefuroxime 500 mg oral tablet), 500 mg= 1 tab, PO, bid clotrimazole(clotrimazole 10 mg oral lozenge), 10 mg= 1 lozenge, PO, Daily esomeprazole(esomeprazole 40 mg oral delayed release capsule), 40 mg= 1 cap, PO, Daily ferrous sulfate(ferrous sulfate 325 mg (65 mg elemental iron) oral tablet), 325 mg= 1 tab, PO, Daily furosemide(furosemide 20 mg oral tablet), 20 mg= 1 tab, PO, Daily, PRN isosorbide mononitrate(isosorbide mononitrate 60 mg oral tablet, extended release), 60 mg= 1 tab, PO, qAM metoprolol(metoprolol tartrate 25 mg oral tablet), 12.5 mg= 0.5 tab, PO, bid nystatin topical(nystatin 100,000 units/g topical powder), See Instructions olmesartan(olmesartan 5 mg oral tablet), 5 mg= 1 tab, PO, Daily oxyCODONE(oxyCODONE 5 mg oral tablet), 5 mg= 1 tab, PO, qhs, PRN pravastatin(pravastatin 40 mg oral tablet), 40 mg= 1 tab, PO, Daily ranolazine(ranolazine 500 mg oral tablet, extended release), 500 mg= 1 tab, PO, bid Allergies Catsthroat closes up No Known Medication Allergies Social History - Smoking: Never smoker - EtOH: Denies current EtOH use - Denies any illicit orrecreational drug use Family History - Maternal grandparent: DM - Father: PAD Lab Results Test Name Test Result Date/Time Na 136 mmol/L 02/20/2024 04:24 EDT K 4.5 mmol/L 02/20/2024 04:24 EDT Cl- 103 mmol/L 02/20/2024 04:24 EDT HCO3 23 mmol/L 02/20/2024 04:24 EDT Anion Gap 10 mmol/L 02/20/2024 04:24 EDT BUN 32 mg/dL 02/20/2024 04:24 EDT Cret 1.05 mg/dL 02/20/2024 04:24 EDT Estimated CrCl 74.00 mL/min 02/20/2024 07:43 EDT Estimated CrCl 74.00 mL/min 02/19/2024 19:45 EDT eGFR CKD-EPI 72 mL/min/1.73 m2 02/20/2024 04:24 EDT Glu 116 mg/dL 02/20/2024 04:24 EDT Ca 8.4 mg/dL 02/20/2024 04:24 EDT Mg 2.0 mg/dL 02/20/2024 04:24 EDT Ion Ca 1.12 mmol/L 02/20/2024 04:24 EDT PO4 2.7 mg/dL 02/20/2024 04:24 EDT WBC 14.75 K/uL 02/20/2024 04:24 EDT Hgb 10.7 g/dL 02/20/2024 04:24 EDT Hct 31.6 % 02/20/2024 04:24 EDT RBC 3.16 M/uL 02/20/2024 04:24 EDT MCV 100.0 fL 02/20/2024 04:24 EDT MCHC 33.9 g/dL 02/20/2024 04:24 EDT MCH 33.9 pg 02/20/2024 04:24 EDT RDW 15.0 % 02/20/2024 04:24 EDT Plts 151 K/uL 02/20/2024 04:24 EDT MPV 10.7 fL 02/20/2024 04:24 EDT Type of Diff: AUTO 02/20/2024 04:24 EDT Immature Gran% 1.1 % 02/20/2024 04:24 EDT Neut% 87.3 % 02/20/2024 04:24 EDT Lymph% 4.6 % 02/20/2024 04:24 EDT [place]% 5.8 % 02/20/2024 04:24 EDT Baso% 0.1 % 02/20/2024 04:24 EDT Eos% 1.1 % 02/20/2024 04:24 EDT Immat Gran, Abs 0.16 K/uL 02/20/2024 04:24 EDT Neut, Abs 12.88 K/uL 02/20/2024 04:24 EDT Lymph, Abs 0.68 K/uL 02/20/2024 04:24 EDT [place], Abs 0.85 K/uL 02/20/2024 04:24 EDT Baso, Abs 0.02 K/uL 02/20/2024 04:24 EDT Eos, Abs 0.16 K/uL 02/20/2024 04:24 EDT Lactate 0.7 mmol/L 02/20/2024 04:24 EDT Alb 2.8 g/dL 02/20/2024 04:24 EDT [1]XR Chest 1 View; MD Kraft Cristy N 02/19/2024 19:19 EDT [2]XR Abdomen 1 View; MD Kraft Cristy N 02/19/2024 19:19 EDT [3]XR Foot Complete 3+ Views Left; MD Kraft Cristy N 02/19/2024 21:01 EDT [4]XR Hip 2-3 Views w/AP Pelvis Right; MD [place] Luke A 02/19/2024 22:42 EDT [5]XR Knee 1 or 2 Views Right; MD [place] Luke A 02/19/2024 22:42 EDT Electronic Signature on File Electronically Reviewed/Signed by: Nandini Luna DO Author Signature Dt/Tm:02/20/2024 07:34 PM Resident Department of Neurology Electronically Reviewed/Signed by: Nandini Luna DO Cosigner Signature Dt/Tm: 02/21/2024 06:04 AM Resident Department of Neurology Electronically Reviewed/Signed by: Delaney Wong MD Cosigner Signature Dt/Tm: 02/21/2024 01:45 PM Division of Internal Medicine YK * MD Hickey Zinaida: PERFORM MD Hickey Zinaida: PERFORM Event Display: ID Ortho Inpt Consult Authored Date: [id number] ID ORTHO INPATIENT CONSULTATION REPORT Name: RAFY PALACIO Patient Number: [id number] : 1945 Date of Admission: 02/19/2024 Date of Service: 02/20/2024 REQUESTING PHYSICIAN'S NAME: MD Marvin, Delaney Leggett REASON FOR CONSULTATION: Antimicrobial management in setting of right knee PJI ASSESSMENT: Mr. Palacio is a 78 years old man transferred from OSH due to septic shock in setting ofright knee PJI. Patient underwent I&D with evidence of gross purulence. Preliminary IntraOp cultures with Enterobacter cloacae. Empiric antibiotics were initially with cefepime and vancomycin, likely will need to be changed to ertapenem. ID problems: Right knee PJI, recurrent Patient presented with fever, unwell, nausea, general malaise to outside hospital and transferred to [facility] for septic shock, in setting of PJI Patient had right knee arthroplasty on 11/04/[address] Kern Right knee revision June 2023, culture MRSA Was on chronic antibiotic suppression with doxycycline (last outpatient visit November ) IntraOp cultures -Enterobacter cloacae Will switch cefepime to ertapenem to cover for amp C lactamase line producer and vancomycin for prior culture of MRSA until the finalized results. Septic shock, improved Off vasopressor support COVID infection, under isolation Chest x-ray no airspace disease diagnosed at [facility] RA on Rinvoq On hold from October due to recurrent infections Follows rheumatology at [place] Positive urine culture, P. mirabilis Asymptomatic On Ertapenem regardless History of hernia repair 01/19/2023 with MRSA abscess History of bilateral hip replacement, never had any issues History of left TKA, never had any issues # Recurrent skin blisters/fragile skin with ecchymosis and bruises On Eliquis RECOMMENDATIONS: _ 1 ) switch cefepime to ertapenem 1 g every 24 hours IV, targeting Enterobacter cloacae AMP- C line producer 2 ) Continue Vancomycin to target prior culture from R PJI MRSA 3 ) will follow-up cultures, tailor antibiotic regimen better based on results 4) continue trending fever curve, CBC, BMP, ESR and CRP 5)-anticipate patient will need a long course of antibiotic therapy, if blood culture from 02/18 revealed no growth at 72 hours--> okay to place a PICC line HPI: Mr palacio with past history of CAD, RA, LEONARD was transferred from [facility] hospital due to septic shock in setting of right PJI. He has a complex medical and surgical history due to recurrent infection andrevision as noted bellow. Patient had his right knee replaced in 11/04/[address] Kern. Intra Op cultures at that time were negative patient received cefazolin preoperative and doxycycline operatory. 2 months later patient underwent hernia repair, later with MRSA abscess that required a drain to beplaced for approximately 6 weeks, treated with Bactrim. End of 2022 -left leg wound finished doxycycline Hospitalization to [facility] 07/01 and underwent revision I&D, synovectomy and irrigation, poly exchange with antibiotic beads placement and intraosseous vancomycin to tibia. Intraoperative culture werepositive with MRSA with MRSA bacteremia, treated with 6 weeks of vancomycin. Hospitalization 11/04 - 11/09/23 with sepsis thought from skin wounds. 11/06/23 blood cx + enterobactercloacae. Received IV Dapto and IV cefepime then discharged on PO Bactrim DS BID. Was seen outpatient [facility] in November 2023 , continued MRSA abx chronic suppression with doxycycline. Recent hospital stay at [facility] for wounds of his legs contracted COVID at the end of his 3-week stay. Discharged on 02/17 on 02/18 patient reported fever, chills, feeling unwell and presented to [facility] where he was found hypotensive with elevated inflammatory markers and was transferred for septicshock in setting of PJI. Patient underwent I&D of the right knee by the orthopedic surgery 02/19, with finding of a grosspurulence within the right knee joint. Empiric antibiotic are initiated. Intra Op cultures pending. PAST MEDICAL HISTORY: Problems: Tinea unguium Peripheral vascular disease RA (rheumatoid arthritis) Infection of total right knee replacement Aftercare following right knee joint replacement surgery Atrial fibrillation CAD (coronary artery disease) Right knee pain Arthritis of knee, right MRSA (methicillin resistant staph aureus) culture positive Hospital Day: 1 Surgical Hospital Day/Procedure: POD#: 0 - right knee I&D MEDICATIONS: Active Inpt Meds: DULoxetine 60 mg PO Daily acetaminophen 1,000 mg PO q8h cefepime 2,000 mg IV q8h gabapentin 300 mg PO tid heparin 5,000 unit subQ q8h latanoprost ophthalmic (latanoprost 0.005% ophthalmic solution) 1 drop both eyes qhs metoprolol (metoprolol tartrate) 12.5 mg PO bid mupirocin topical (mupirocin 2% nasal ointment) 1 appl each nostril bid pantoprazole (Protonix) 40 mg PO Daily pravastatin 40 mg PO Daily ranolazine 500 mg PO bid vancomycin 1,500 mg IV q24h Active PRN Meds: HYDROmorphone (Dilaudid) 0.25 mg IV Push q15min calcium gluconate 1,000 mg IV As indicated dyclonine topical (Sucrets, Wild Conklin) 1 lozenge buccal q2h melatonin (Melatonin) 5 mg PO qhs naloxone (Narcan) 0.04 mg IV Push As indicated oxyCODONE 10 mg PO q4h oxyCODONE 5 mg PO q4h Active IV Meds: Electrolyte IV Solution 1,000 mL 1,000 mL kvo mL/HR Allergies and Sensitivities: Cats(throat closes up) No Known Medication Allergies SOCIAL HISTORY: _Retired, lives by himself, former smoker, quit more than 20 years ago. FAMILY HISTORY: _ NC ROS: (Jae with an X to the left of the System if asked and negative; otherwise detail under Symptoms) System Symptoms (details) _ Constitutional _Fever, chills, general malaise _X Eyes _ _ Ears, Nose, Mouth, Throat _ _X Cardiovascular _ _X Respiratory _ _X Genitourinary _ _ Gastrointestinal _ _ Musculoskeletal _Right knee pain, _ Skin _Bilateral lower extremity erythema _ x Neurologic _ _ Psychiatric _ _ Endocrine _ _ Hematologic/Lymphatic _ _ Allergic/Immunologic _ VITAL SIGNS AND EXAM: Vitals: Last Updated 02/20/24 16:00 Weights: Last Updated 02/19/24 18:56 Date Temp Pulse BP RR SpO2 FIO2 Date Wt(kg) Wt(lb) 02/19 16:00 78 142/89 16 98 2.0L/m 02/18 18:56 116.7 257 02/19 15:01 98 2.0L/m 02/18 18:56 116.7 257 02/19 15:00 80 140/89 11 88 02/19 14:31 02/19 14:00 78 135/89 14 97 24 Hr Tmax: 36.4 at 02/19 04:00 36 Hr Tmax: 36.4 at 02/19 04:00 Vital Signs are the last 5 in the past 48 hours. Weights display the last 5 within 7 days. Initial Wt: 02/18 116.7 kg 257 lb EXAM: General -sleeping comfortable in bed, not in acute distress, obese HEENT - sclera anicteric, EOMI, no subconjunctival hemorrhage Lungs - good air entry bilaterally, no wheezing or rhonchi Heart - normal S1S2, no murmur appreciated Abdomen - non-tender, area below umbilical w/ healed surgical scars w/ fibrous tissue that's hard to palpation. no redness to tenderness. Area's dry w/out expressible drainage Ext - RLE dressing D/C/I. drains in place, serosanguineous drainage. chronic arthritic changes on both hands no pain with ROM at L hip/knee/ankle Neuro - AOx3 Skin -bilateral lower extremity feet erythema, notable bruises, fragile skin LABS: Most Recent Lab Results over the last 24 Hours: CBC: on 02/20/2024 04:24 Nephrology Panel: on 02/20/2024 04:25 10.7 0 0 0 14.8 151 0 31.6 0.0 0 0.00 Abs Neut = 12.9 Ca = 0.0 eGFR CKD-EPI: REQUEST CREDITED OTHER LABS: CRP 5.49 ESR 21 Right knee synovial fluid: Nucleated cells [id number] RELEVANT IMAGING: X-ray right hip: 1. Status post right total hip arthroplasty and total knee arthroplasty without findings of hardware associated complication. No acute osseous abnormality. 2. Mild prepatellar soft tissue swelling with small knee joint effusion. X-ray left and right foot: FINDINGS: Right foot: 3 views the right foot obtained nonweightbearing. No fracture. Lesser toe hammertoe deformities. Nocortical destruction or periosteal reaction. Forefoot soft tissue swelling, nonspecific. Hindfoot degenerative changes. Atherosclerotic vascular calcification. Left foot: 3 views the left foot obtained nonweightbearing. No fracture. Lesser toe hammertoe deformities. No cortical destruction or periosteal reaction. No focal soft tissue swelling. Hindfoot degenerative changes. Atherosclerotic vascular calcification. RELEVANT CULTURES: Culture 02/18no growth to date Urine culture: Proteus mirabilis Right knee arthrocentesis synovial fluid culture: Enterobacter cloacae eliminated IntraOp cultures 02/18in progress ID attending attestation: I have interviewed and examined the patient today, reviewed the lab data, imaging studies and available microbiology/pathology reports. I have discussed, and made a substantive portion of the medical decision making with the ID fellow Dr. Hickey . I reviewed, edited as necessary and agree withthe findings listed in the fellow's note. Please feel free to reach out with any questions or concerns. Tita Jett MD Head Of Conservationautomobile mechanic motor Division of Infectious Diseases Pager # [phone]/Contact Via [place] text 20 minutes Reviewing notes, cultures, lab results. imaging, medications doses, etc 10 minutes Discussing patient with ID fellow, relaying recs to the primary team 20 minutes ____ Interviewing , examining, discussing various test results, educating and counselingpatient on various adverse effects of antibiotics 15 minutes ......... Finalizing this EMR note, which involves reviewing updated notes, cultures, imaging meds, etc. Electronic Signature on File Electronically Reviewed/Signed by: Blanca Hickey Author Signature Dt/Tm:02/20/2024 05:00 PM Resident Division of Infectious Diseases and Epidemiology Electronically Reviewed/Signed by: Tita Jett MD Cosigner Signature Dt/Tm: 02/21/2024 01:55 PM Division of Infectious Diseases and Epidemiology ZP * MD Rudy, Jordan Del Castillo: SAHIL Grant MD, Jordan Del Castillo: MODIFY, MODIFY, PERFORM, MODIFY Event Display: Orthopaedics Consult Authored Date: [id number] ORTHOPAEDICS CONSULTATION REPORT Name: RAFY PALACIO Patient Number: [id number] : 1945 Date of Service: 02/19/2024 REQUESTING SERVICE: transfer from [facility] to [facility] REASON FOR CONSULTATION: Right knee rule out septic arthritis TIME OF CONSULTATION: 1800 TIME OF EVALUATION: 181 History of Present Illness: Rafy Palacio is a 78-year-old male with past medical history of CAD, CHF, HTN, A-fib, hypertension, glaucoma, GERD, RA, LEONARD, PVD who is a transfer from [facility] to our surgical anesthesia ICU due to concern for septic shock originating from right septic knee. He has had a prior right total hip arthroplasty done as well. Patient has a complex history with regards to this knee including primary right total knee arthroplasty on 11/04/[address] Manjit Kern. He has had complications with this including multiple bouts of prosthetic joint infection requiring washout with the latest washout in June 2023. Infective organism was MRSA. Patient did also have to present to [facility] again in October 2023 due to bacteremia requiring IV antibiotics. At that time the knee nor the hip were aspirated. Patient states that he was recently at the [facility] for [facility] care treatment and rehab but unfortunately contracted COVID requiring a 3-week stay. He was eventually discharged however yesterday he noticed that he started to feel unwell including subjective fever and chills. Patient decided to present to [facility] where workup showed a WBC 16.5 ESR 26 CRP 3.75 Pro-Calc 0.11 lactate 1.3 patient was found to be hypotensive to 70s over 40s patient was put on nor epi 0.05. Given this, it was determined that he should seek higher level care and was transferred to our ICU. Upon evaluation, patient was not on any pressors with stable vital signs. Repeat white count 16.9, lactate 1.0, ESR 21,CRP 5.49. Patient denies any nausea, vomiting, numbness, tingling. Denies pain in other extremities. Review of Systems: A 14-point review of systems was performed and was negative unless otherwise stated above. Past Medical History: CAD, CHF, HTN, A-fib, hypertension, glaucoma, GERD, RA, LEONARD, PVD Surgical History: Bilateral rotator cuff repairs, right total knee arthroplasty, Right total hip arthroplasty Family History: Denies family history of bleeding or clotting disorders; denies family history of adverse reactions to anesthesia Social History: Denies tobacco use, denies excessive alcohol use, denies illicit drug use. Physical Exam: General: in no acute distress Cardiac: Regular rate by palpation Lungs: Normal work of breathing on room air MSK: LLE: - NTTP. No lacerations or abrasions. - FROM of ankle, knee, hip. - SILT Saph/Tibial/DP/SP/Nika nerve distributions. - 5/5 strength in TA/EHL/GSC/PL/Quad/Hamstring - 2+ DP pulses, BCR. RLE: -Incision _ quite tender to palpation about the knee, with swelling and erythema evident. Cellulitis changes distal to knee about the lower leg with shiny skin characteristic of vascular disease. Right foot with ulcer lateral aspect of fifth toe. Toes with claw deformity. Edematous leg. - pain with short arc ROM of knee - FROM of ankle, hip. - SILT Saph/Tibial/DP/SP/Nika nerve distributions. - Fires TA/EHL/GSC/PL/Quad/Hamstring - 2+ DP pulses, BCR. Imaging: Radiographs obtained and reviewed include AP and lateral views of the right knee, which donot demonstrate any osseous abnormality, and demonstrate mild soft tissue swelling. ASSESSMENT AND PLAN: Patient is a 78-year-old male, who presents with right knee pain and swelling,with concerns of right knee prosthetic joint infection. Currently hemodynamically stable but was previously on pressors. White count 16.9, ESR 21, CRP 5.49, lactate 1.0. -Patient is currently hemodynamically stable. Was previously on pressors. Will continue to monitor vitals -Please obtain CBC, CMP, ESR, CRP, PT/INR, type and screen -Knee was aspirated, fluid sent for cultures, cell count, crystals -Aspirate with 105,000 cells, 88% neutrophils -Recommend having Ortho ID consulted. -No indications for antibiotics from orthopedic perspective as patient is stable -Pending cultures -Patient booked marked and consented for right knee irrigation and debridement for 9/14 AM. Please make patient n.p.o. at midnight. -Nonweightbearing RLE -Patient was staffed with attending surgeon of record Dr. Grant -Please [place] text [facility] [place] on-call with any questions. I personally saw and examined this patient. I reviewed the patients labs and imaging studies. We discussed treatment options. I personally formulated the plan of care. I agree with the note as documented with addenda made as necessary. Chronic PJI, failed polyswap and abx suppression. OR today for debridement. Jordan Grant MD DPT Orthopaedic Trauma [facility] 02/20/2024 07:19:35 Electronic Signature on File Electronically Reviewed/Signed by: Emiliano Koch MD Author Signature Dt/Tm:02/20/2024 08:02 AM Resident Division of Orthopaedics Electronically Reviewed/Signed by: Jordan Grant MD Cosigner Signature Dt/Tm: 02/20/2024 07:20AM Division of Orthopaedics NG /NR .D/C Summary * DO Warren Kunal Upendra: PERFORM Event Display: .D/C Summary Authored Date: [id number] [facility] For medical concerns, call: . Address: [address] [place] [address] [address] [place], [place] [id number] (MOBILE) [phone] (ALTERNATE) :1945 . Date of Admission:02/19/2024 Date of Discharge:02/26/2024 Physician:DO Warren Kunal Upendra Service:Internal Medicine Discharge Disposition: Primary Care Provider/Phone: DO OROZCO THOMAS (BUSINESS) [phone] (FAX BUSINESS) Principal Diagnosis: Enterobacter sepsis Other Diagnoses: Infection caused by Enterobacter cloacae Septic joint COVID-19 virus infection Chronic atrial fibrillation Hypertension Obesity Acute hypoxic respiratory failure Prosthetic joint infection Lung nodule Anemia Multiple open wounds of foot Pancreatic cyst CAD (coronary artery disease) Insomnia Depression Acute pain High risk medication use MRSA infection Major Tests and Procedures: right knee I&D 02/20/2024 Right knee I&D, poly exchange 02/23/2024 Hospital Course: In brief, patient is a 78-year-old male past with history given for heart failure with preserved ejection fraction, coronary disease, A-fib on Xarelto, RA on upadacitininb [facility] due to ICU level of care for right knee prosthetic joint infection with initial concern for sepsis. Status post I&D of right knee done 02/20/2024. Transferred to internal medicine service once patient became hemodynamically stable. Septic shock secondary to prosthetic joint infection: Status post I&D of right knee 02/20/2024. Ortho ID consulted, recommended d/c ertapenem and starting cefepime 2g q8H. End date 04/06/24. PICC placed.Start chronic antibiotic suppressive therapy: Doxycycline 100mg every q12 in the setting of PJI due to MRSA on 06/2023 ortho following. PT following. Pt will need inpatient rehab. patient accepted to [facility]. COVID-19 infection, acute hypoxic respiratory failure: No obvious pneumonia seen on CT imaging obtained previously.improved significantly Microcytic anemia: stable Bilateral wounds of feet: Wound care consulted Obesity: Complicates all aspects of care Lung nodule, cystic lesion on pancreas: Patient concerned about cystic lesion on pancreas. Statesthat his sonwas diagnosed with pancreatic cancer is currently undergoing treatmentand was worried when he heard that he hadan issue with his pancreas. I did attempt toconsult the patient and stated thatroutine surveillance would be beneficial in this case. Per radiology read, recommended MRI for further evaluation, do think this would be prudentfor further evaluation. Will orderMRI pancreas protocol. Per radiology, patient does have a nerve block which was inserted after patie nt'srecent knee procedure.nerve block removed. MRI abdomen showed pancreatic cyst as well as smaller intraductal papillary mucinous neoplasms. No high riskstigmata or worrisome features noted per radiology. Patient will needoutpatient surveillance. He will coordinate this with his primary care provider. Chronic and stable medical conditions: hypertension: Resume home meds Coronary disease: Continue ranolazine, pravastatin, isosorbide mononitrate A-fib: Chronic. resume Xarelto Depression: Continue duloxetine Insomnia: Continue melatonin General Appearance:alert, awake, no acute distress, non toxic appearing Head and Eyes:atraumatic, normocephalic, moist mucous membranes, no scleral icterus Neck:trachea midline, on room air Lungs:CTA b/l anteriorly and posteriorly, no rales, rhonchi or wheeze. Heart:Regular Rate and Rhythm, No rub, gallop or murmur. Abdomen:soft, non tender, no involuntary guarding. Bowel sounds present Extremities/vascular:+edema, warm and well perfused Exam on Discharge: Vitals & Measurements: T:36C TMIN:35.9C TMAX:36.2C HR:80(Monitored) RR:20 BP:135/75 SpO2:94% Oxygen Therapy:Room Air WT:127.5kg Discharge Medications: 1.Ranolazine (ranolazine 500 mg oral tablet, extended release) 500 mg (1 tab) by mouth 2 times daily. 2.Clotrimazole (clotrimazole 10 mg oral lozenge) 10 mg (1 lozenge) by mouth once daily. 3.Metoprolol (metoprolol tartrate 25 mg oral tablet) 12.5 mg (0.5 tab) by mouth 2 times daily. 4.Esomeprazole (esomeprazole 40 mg oral delayed release capsule) 40 mg (1 cap) by mouth once daily. 5.Pravastatin (pravastatin 40 mg oral tablet) 40 mg (1 tab) by mouth once daily. 6.Furosemide (furosemide 20 mg oral tablet) 20 mg (1 tab) by mouth once daily, as needed for discomfort. take 1 tab daily as needed for weight gain. 7.Ferrous sulfate (ferrous sulfate 325 mg (65 mg elemental iron) oral tablet) 325 mg (1 tab) by mouth once daily. 8.Isosorbide mononitrate (isosorbide mononitrate 60 mg oral tablet, extended release) 60 mg (1 tab)by mouth once a day (in the morning). 9.OxyCODONE (oxyCODONE 5 mg oral tablet) 5 mg (1 tab) by mouth at bedtime, as needed for pain. take 1-2 tabs at bedtime as needed. 10.Nystatin topical (nystatin 100,000 units/g topical powder) See Instructions . APPLY topically daily for 30 days; Apply to feet daily with dressing changes.. 11.Olmesartan (olmesartan 5 mg oral tablet) 5 mg (1 tab) by mouth once daily. 12.Cefepime 2,000 mg (50 mL) intravenously every 8 hours. 13.Doxycycline 100 mg (1 cap) by mouth 2 times daily. 14.Rivaroxaban (rivaroxaban 10 mg oral tablet) See Instructions . 20 mg daily. 15.Tamsulosin (Flomax 0.4 mg oral capsule) 0.4 mg (1 cap) by mouth once daily. 16.Latanoprost ophthalmic (latanoprost 0.005% ophthalmic solution) 1 drop in both eyes at bedtime. 17.DULoxetine (DULoxetine 30 mg oral delayed release capsule) 60 mg (2 cap) by mouth once daily. 18.Gabapentin (gabapentin 300 mg oral capsule) 300 mg (1 cap) by mouth 3 times daily. Allergies and Sensitivities: Catsthroat closes up No Known Medication Allergies Tests Pending: Basic Metabolic Panel To obtain results pending at hospital discharge, call and ask for the following Physician:DO Warren Kunal Upendra Scheduled Appointments: Date/Time:Provider/Resource: Mar 11:25 ISREAL Cullen Karyn Location/Instructions:[facility] [place], [address], [address], [address], [place] [address] Date/Time:Provider/Resource: Mar 11:25 ISREAL Rooney Michelle M Location/Instructions:[facility] [place], [address], [address], [address] [address] Date/Time:Provider/Resource: Apr 04:00 pmDESTINEY Cuello Christina L Location/Instructions:Please arrive 15 minutes prior to your appointment time with [facility], [address] [place] [address], [facility], [facility] [address] Date/Time:Provider/Resource: May 02:00 pmRadiology EC Location/Instructions:[facility] [place], [address], [address]tr[address], [address], [facility] [address] Date/Time:Provider/Resource: May 02:25 pmSISREAL mart Michelle M Location/Instructions:[facility] [place], [address], [address]tr[address], [address], [facility] [address] Date/Time:Provider/Resource: May 02:30 pmMD Kern Charles M Location/Instructions:[facility] [place], [address], [address]tr[address], [address], [place] [address] Other Appointments: [facility] [place] Additional Information: Call [facility] for appt. [facility] [place] [facility] Additional Information: Call Careline for appt. if not contacted Follow Up DO Mcdermott Thomas Where:[facility] [address] [place] [address]- Additional Information: upon discharge from rehab Call your doctor to make an appointment Discharge Services: Service: Organization: Business Address: Phone Number: Acute Rehab [address], [address] Care Instructions: ORTHOPEDIC INSTRUCTIONS: Wound care: Keep the Aquaceldressing in place until you are seen in the office for your first post-op appointment. We will take off the dressing at that appointment. You may shower with the Aquacel in place (do not let water hit the dressing directly). If you are having issues with the Aquacel staying on, please call our office. It is normal to have some drainage on your dressing after your surgery. However, call our office ifthe inner legal associate rectangle on the dressing is more than 80% saturated. Sutures will be over the incision; do not remove them. We will remove the sutures at your first post-operative visit. At any point, DO NOT soak in a bathtub, hot tub, or pool until your surgeon tells you that you may do so. Janel Hose: Wear the janel hose/stockings forthenext two weeks as tolerated.They can be removedat night while in bed, and put back on in the morning. NO SMOKINGor use of any products containing nicotine. Research has shown that these delay bone healing and increase the risk of infection and DVT/PE formation (blood clots in your legs and lungs). These products should be stopped in the postoperative period. Activity: Weightbearing as tolerated through the operative extremity. ACTIVE knee range of motion only (Thismeansonly you shouldbe bending orstraighteningyour knee.Do not havePT apply pressure toyour kneeto get it to straighten or bend). -You will need to continue to take IV antibiotics to help treat your infection. You will be on IVcefepime 2 g every 8 hourswith theend date on 04/06/24. Please continue doxycycline 100 mg twice daily. This end date will be TBD by ID.you will need weekly CBC, CMP, ESR, CRP while on this medication. Please have lab results FAX'd to the ID office at [phone]. [facility]will [facility].please follow-up with orthopedic surgery, infectious disease, your primary care provider as instructed. You also received an MRIof the abdomenwhich showedpancreatic cysts as well as smaller structures consistent withintraductal papillary mucinous neoplasm.per the radiologist read, there were not any worrisomeorhigh risk stigmata noted. You should stillget surveillance of this cystas an outpatient. Please coordinate this with your primary care provider . Advance Directive:Health Care Power of Palaeontologist, Other Documentation of Patient's Wishes I personally spent _50 minutes in discharge planning. [1]Progress/SOAP Note; DO Warren Kunal Upendra 02/25/2024 13:21 EDT Electronic Signature on File Electronically Reviewed/Signed by: Junito Warren DO Author Signature Dt/Tm:02/26/2024 11:44 AM Division of Internal Medicine - Hospitalist ANTHONY Facility Discharge Instructions * DO Warren Kunal Upendra: PERFORM Event Display: Facility Discharge Instructions Authored Date: [id number] RAFY PALACIO :1945 Visit Date:02/19/2024 Facility Discharge Instructions [facility] For medical concerns, call: . Date of Admission:02/19/2024 Date of Discharge:02/26/2024 Physician:DO Warren Kunal Upendra Service:Internal Medicine Discharge Disposition: Primary Care Provider/Phone: DO OROZCO THOMAS (BUSINESS) [phone] (FAX BUSINESS) . Advance Directive:Health Care Power of Palaeontologist, Other Documentation of Patient's Wishes Reason for Hospitalization Enterobacter sepsis Your Diagnoses Enterobacter sepsis Infection caused by Enterobacter cloacae Septic joint COVID-19 virus infection Chronic atrial fibrillation Hypertension Obesity Acute hypoxic respiratory failure Prosthetic joint infection Lung nodule Anemia Multiple open wounds of foot Pancreatic cyst CAD (coronary artery disease) Insomnia Depression Acute pain High risk medication use MRSA infection [employer] Patient Portal: [facility] makes it easy for you to manage your health information online. boolino [facility] [employer] is a free service that provides you instant, secure access to your medical information anytime, anywhere. Sign in or set up your account today at [email or web address] Thank you for allowing us to assist you with your healthcare needs. If you need additional community resources, [employer] can help at https://www.isreal211.org. 211 can assist you in connecting with social programs based on your unique needs and locations. 211 is an anonymous search that can help you locate resources for: Food, Housing, Transportation, Goods, Education and Healthcare. Hospital Course Exam on Discharge Vitals & Measurements: T:36C TMIN:35.9C TMAX:36.2C HR:80(Monitored) RR:20 BP:135/75 SpO2:94% Oxygen Therapy:Room Air WT:127.5kg Medications Patient is enrolled in Rx-to-Go Program New medications will be delivered from [facility] to patient's room at discharge: Mon-Sun from 9AM-5 PM. Medications MUST be PICKED UP at [facility] if patient is discharged Mon-Sun after 5 PM or anytime on holidays. Please note, the [facility] closes at 8 PM on week and 5:30 PM on Saturdays, Sundays, and holidays. What How Much When Instructions Next Dose New cefepime 2,000 Milligram intravenously Every 8 hours New docusate (Colace 100 mg oral capsule) 1 cap by mouth 2 times daily as needed for as needed for constipation Duration: 7 Days use until bowel movement New latanoprost ophthalmic (latanoprost 0.005% ophthalmic solution) 1 Drops in both eyes At bedtime New polyethylene glycol 3350 (MiraLax oral powder for reconstitution) 17 gram by mouth 2 times daily Duration: 7 Days use until bowel movement. then can use as needed New tamsulosin (Flomax 0.4 mg oral capsule) 1 cap by mouth Once daily Changed DULoxetine (DULoxetine 30 mg oral delayed release capsule) 2 cap by mouth Once daily Changed doxycycline 100 Milligram by mouth 2 times daily Changed esomeprazole (esomeprazole 40 mg oral delayed release capsule) 1 cap by mouth Once daily Duration: 90 Days Changed furosemide (furosemide 20 mg oral tablet) 1 tab(s) by mouth Once daily as needed for discomfort take 1 tab daily as needed for weight gain Changed gabapentin (gabapentin 300 mg oral capsule) 1 cap by mouth 3 times daily Changed isosorbide mononitrate (isosorbide mononitrate 60 mg oral tablet, extended release) 1 tab(s) by mouth Once a day (in the morning) Duration: 90 Days Changed metoprolol (metoprolol tartrate 25 mg oral tablet) 0.5 tab(s) by mouth 2 times daily Changed oxyCODONE (oxyCODONE 5 mg oral tablet) 5 Milligram by mouth At bedtime as needed for as needed for pain take 1-2 tabs at bedtime as needed Changed pravastatin (pravastatin 40 mg oral tablet) 1 tab(s) by mouth Once daily Duration: 90 Days Changed ranolazine (ranolazine 500 mg oral tablet, extended release) 1 tab(s) by mouth 2 times daily Duration: 30 Days Changed senna (senna (sennosides) 8.6 mg oral tablet) 1 tab(s) by mouth At bedtime as needed for as needed for constipation Duration: 7 Days use until you have a bowel movement Unchanged clotrimazole (clotrimazole 10 mg oral lozenge) 1 lozenge(s) by mouth Once daily Unchanged ferrous sulfate (ferrous sulfate 325 mg (65 mg elemental iron) oral tablet) 1 tab(s) by mouth Once daily Duration: 90 Days Unchanged nystatin topical (nystatin 100,000 units/ g topical powder) See instructions APPLY topically daily for 30 days; Apply to feet daily with dressing changes. Unchanged olmesartan (olmesartan 5 mg oral tablet) 1 tab(s) by mouth Once daily Unchanged rivaroxaban (rivaroxaban 10 mg oral tablet) See instructions 20 mg daily What How Much When Comments Stop Taking acetaminophen (Tylenol 500 mg oral tablet) 2 tab(s) by mouth Every 8 hours Stop Taking amiodarone (amiodarone 200 mg oral tablet) 1 tab(s) by mouth Once daily Stop Taking apixaban (Eliquis 2.5 mg oral tablet) 1 tab(s) by mouth 2 times daily Stop Taking ascorbic acid (Vitamin C) 1,000 Milligram by mouth Once daily Stop Taking ascorbic acid/ chondroitin/ glucosa/ catherine (ascorbic acid/ chondroitin/ glucosamine/ manganese 20 mg-400 mg-500 mg-2 mg oral capsule) 1 tab(s) by mouth Once daily Stop Taking aspirin 81 Milligram by mouth Once daily Stop Taking cefpodoxime (cefpodoxime 200 mg oral tablet) TAKE 2 TAB ORALLY EVERY 12 HOURS FOR 14 DAYS MUST ADMINISTER WITH A MEAL/ FOOD Stop Taking cefuroxime (cefuroxime 500 mg oral tablet) 1 tab(s) by mouth 2 times daily Duration: 11 Days Stop Taking cyanocobalamin (cyanocobalamin 500 mcg oral tablet) Stop Taking folic acid (folic acid 1 mg oral tablet) 30 each, TAKE 1 TABLET BY MOUTH ONCE DAILY IN THE MORNING Stop Taking hydrOXYzine (hydrOXYzine hydrochloride 10 mg oral tablet) 14 each, TAKE 1 TABLET BY MOUTH AT BEDTIME NEEDED FOR ANXIETY OR INSOMNIA Stop Taking lactobacillus acidophilus (lactobacillus acidophilus oral capsule) 1 cap by mouth Once daily Stop Taking magnesium sulfate/ potass Cl/ sodium sulf (Sutab oral tablet) 0.5 tab(s) by mouth Stop Taking melatonin 5 Milligram by mouth At bedtime Stop Taking mirtazapine (mirtazapine 15 mg oral tablet) 30 each, TAKE 1 TABLET BY MOUTH AT BEDTIME Stop Taking nitroglycerin 0.4 Milligram sublingually Every 5 minutes as needed for as needed for chest pain Stop Taking omega-3 polyunsaturated fatty acids ([place]-3 1000 mg oral capsule) 1 cap by mouth Once daily Stop Taking potassium chloride (Klor-Con 10) 10 Milliequivalent by mouth 2 times daily with lasix Stop Taking sulfamethoxazole-trimethoprim (sulfamethoxazole-trimethoprim 800 mg- 160 mg oral tablet) TAKE 1 TABLET BY MOUTH TWICE DAILY FOR 13 DAYS Stop Taking traMADol (Ultram 50 mg oral tablet) 1 tab(s) by mouth Every 8 hours Stop Taking travoprost ophthalmic (Travatan Z) 1 Drops in both eyes Every evening Allergies Catsthroat closes up No Known Medication Allergies What to do next Instructions From Your Doctor ORTHOPEDIC INSTRUCTIONS: Wound care: Keep the Aquaceldressing in place until you are seen in the office for your first post-op appointment. We will take off the dressing at that appointment. You may shower with the Aquacel in place (do not let water hit the dressing directly). If you are having issues with the Aquacel staying on, please call our office. It is normal to have some drainage on your dressing after your surgery. However, call our office ifthe inner legal associate rectangle on the dressing is more than 80% saturated. Sutures will be over the incision; do not remove them. We will remove the sutures at your first post-operative visit. At any point, DO NOT soak in a bathtub, hot tub, or pool until your surgeon tells you that you may do so. Janel Hose: Wear the janel hose/stockings forthenext two weeks as tolerated.They can be removedat night while in bed, and put back on in the morning. NO SMOKINGor use of any products containing nicotine. Research has shown that these delay bone healing and increase the risk of infection and DVT/PE formation (blood clots in your legs and lungs). These products should be stopped in the postoperative period. Activity: Weightbearing as tolerated through the operative extremity. ACTIVE knee range of motion only (Thismeansonly you shouldbe bending orstraighteningyour knee.Do not havePT apply pressure toyour kneeto get it to straighten or bend). -You will need to continue to take IV antibiotics to help treat your infection. You will be on IVcefepime 2 g every 8 hourswith theend date on 04/06/24. Please continue doxycycline 100 mg twice daily. This end date will be TBD by ID.you will need weekly CBC, CMP, ESR, CRP while on this medication. Please have lab results FAX'd to the ID office at [phone]. [facility].please follow-up with orthopedic surgery, infectious disease, your primary care provider as instructed. You also received an MRIof the abdomenwhich showedpancreatic cysts as well as smaller structures consistent withintraductal papillary mucinous neoplasm.per the radiologist read, there were not any worrisomeorhigh risk stigmata noted. You should stillget surveillance of this cystas an outpatient. Please coordinate this with your primary care provider As for your constipation, you may take Miralax as instructed twice a day, Colace 1 tab twice a day,senna 1 tab nightly until you have a bowel movement. Your medications for constipation can be adjusted by the rehab as well. If you notice the following symptoms worsening symptoms Contact the [facility] Careline at . If unable to contact your physician and you feel it is an emergency, go to the nearest Emergency Room or call 911 Diet Instructions Activity Instructions Weight Bearing Leg, Right, Weight Bearing As Tolerated Weight Bearing Leg, Right, Weight Bearing As Tolerated Follow-Up Appointments Scheduled Follow-Up Appointments Date/Time:Provider/Resource: Mar 11:25 ISREAL Cullen Karyn Location/Instructions:[facility] [place], [address], [address] [facility] [address], [address], [place] [address] Date/Time:Provider/Resource: Mar 11:25 ISREAL Rooney Michelle M Location/Instructions:[facility] [place], [address], [address], [address], [place] [address] Date/Time:Provider/Resource: Apr 04:00 DESTINEY Garcia Christina L Location/Instructions:Please arrive 15 minutes prior to your appointment time with [facility], [facility] [facility], [facility] [address], [place] [address] Date/Time:Provider/Resource: May 02:00 pmRadiology EC Location/Instructions:[facility] [place], [address], [address], [address], [place] [address] Date/Time:Provider/Resource: May 02:25 ISREAL Barros Michelle M Location/Instructions:[facility] [place], [address], [address], [address], [place] [address] Date/Time:Provider/Resource: May 02:30 MD Tabby, Manjit Franklin Location/Instructions:[facility] [place], [address], [facility] [address], [address], [facility] [address] You Need to Schedule the Following Appointments [place] [place] Additional Information: Call Care[facility] for appt. [facility] [place] [facility] Additional Information: Call Careline for appt. if not contacted Follow Up withDO Orozco Thomas Where:[facility] [address] [place] [address]- Additional Information: upon discharge from rehab Call your doctor to make an appointment The Following Services Have Been Arranged for You Service: Organization: Business Address: Phone Number: Acute Rehab [facility] [address], [place], [address] Tests Pending Basic Metabolic Panel To obtain results pending at hospital discharge, call and ask for the following Physician:DO Warren Kunal Upendra Procedures Performed right knee I&D 02/20/2024 Right knee I&D, poly exchange 02/23/2024 Nursing Assessment Song: Christiana, Indwelling Insert Date:02/19/24 18:30 Removal Date:02/25/24 10:00 Line: Non-tunneled catheter (e.g. CVP, Magui, Cook, Arrow) Triple Lumen Femoral, left Insert Date:02/19/24 19:28 (No insertion activity documented) Removal Date:No Removal Currently Documented. Line: Peripherally inserted central catheter (PICC) Single Lumen Upper arm, right Insert Date:02/24/24 13:54 (No insertion activity documented) Removal Date:No Removal Currently Documented. SPECIAL NEEDS: Sensory Deficits: None Level of Consciousness Neuro: Alert Neurological Symptoms: Weakness ADLS: Moderate assistance Last BM: 02/19/2024 Basic Skin Assessment: [place], Warm, Dry Special Instructions Common Emergency Awareness Tips Call [...] to get immediate medical attention! Education Materials PICC Guide Insertion, Care, and Removal PICC is short for Peripherally Inserted Central Catheter. A PICC is a long, soft, thin, flexible tube that is inserted into a vein in the upper arm and ends in the superior vena cava (SVC), a large vein just above the heart where there is a lot of blood flow (your central circulation). This allows medicines and IV fluids to be quickly distributed throughout the body. Intravenous (IV) therapy is the infusion of liquid substances directly into a vein. A PICC is a form of IV therapy/access that allows intravenous fluids, medications (antibiotics), chemotherapy, and total parenteral nutrition to be given. A PICC is inserted using a sterile technique by a specially trained health care provider. After insertion, correct placement of the PICC is confirmed using a tip confirmation system, and in some instances a portable chest x-ray. If taken care of properly, a PICC can remain in place for several months. A PICC can allow a personin need of further IV therapy to be discharged from the hospital early, either to home or to a rehabilitation facility. PICC care and teaching will be done by a [place] health care team [place]. Potential Problems Problems with a PICC can occasionally occur. These may include the following: Total or partial occlusion of the catheter caused by an accumulation of fibrin and blood cells (thrombus). There is a clot-dissolving medicine that can be given through the PICC to break up the occlusion. Inflammation of the vein (phlebitis) in which the PICC is placed. Signs of inflammation may includeredness, red streaks, pain at insertion site, or being able to feel a cord in the vein where the PICC is located. Upper arm venous thrombosis (clot) of superficial or deep vein. PICC movement (malposition). The PICC tip may move from its original position due to excessive physical activity or forceful coughing, sneezing, or vomiting. Infection in the PICC or at the insertion site. Signs of infection may include fever, chills, redness, swelling, or pus drainage from the PICC insertion site. A break or cut in the PICC. Never use scissors near the PICC. Nerve or tendon irritation or injury during PICC insertion. Activities and Restrictions You may bend your arm and move it freely. Moderate exercise such as walking does not harm your PICC. Avoid strenuous activity or activities that have constant arm movement or reaching such as weight lifting, jumping jacks, or vacuuming. Avoid moving/lifting heavy objects greater than 10 pounds. Avoid carrying bags or purses over your PICC shoulder or using crutches with the PICC arm. Avoid getting the PICC dressing (bandage) wet. When you shower or bathe wrap the PICC arm with plastic wrap and tape closed. Avoid swimming or hot tubs. Do not totally submerse the arm under water even if it is covered as it is difficult to stop water from getting under the PICC dressing. Moisture under the dressing can cause the dressing to fall off and is a source for infection. Care of Your PICC If you are an INPATIENT at a hospital or rehabilitation facility, your PICC care and medication administration will be done by a nurse. If you are DISCHARGED to home, a Community/Home Health Nurse will be assigned to change your dressing and teach you how to give your IV medication. Look at your site once a day. The PICC dressing should be dry and intact. The PICC site should be free from tenderness, redness, swelling, or drainage. Weekly dressing changes are needed and MUST be done ONLY by a nurse (more frequently if dressing gets wet, soiled, or loose). If your dressing looks loose, wet, or soiled, contact your nurse. If needed, reinforce the dressing with tape until the nurse arrives. NEVER REMOVE your PICC dressing. Flush PICC as directed by your nurse. Make them aware if PICC is difficult to flush or does not flush. DO NOT use force to flush PICC. NEVER allow blood pressure checks or blood draws on the PICC arm. NEVER use anything but the supplies provided by your nurse to care for your PICC or administer yourmedications. DO NOT remove your own PICC! Only a trained professional should remove your PICC. Contact your Community/Home Health Nurse if you have a problem or concern. Seek IMMEDIATE Medical Care If: Your PICC is accidentally pulled all the way out. If this happens, cover the insertion site with a bandage or gauze dressing. DO NOT throw the PICC away. Your nurse will need to inspect it. There is any type of drainage, redness, or swelling at the PICC insertion site. You cannot flush the PICC, it is difficult to flush, or the PICC leaks around the insertion site when it is flushed. You hear a flushing sound when the PICC is flushed. You have a pain, discomfort, or numbness in your arm, shoulder, or jaw on the same side as the PICC. You feel your heart racing or skipping beats. You notice a hole or tear in the PICC. You develop chills or fever. PICC Removal and Care A PICC is removed when it is no longer needed (treatment is complete), when it is not working properly (clotted), or when there are complications (swelling of the arm, which could be from a blood clot or infection). Risks and Complications: Generally this is a safe procedure. However, as with any procedure, problems can occur: Bleeding Infection Procedure: DO NOT remove the PICC yourself. An order from a health care provider is needed to remove the PICC. Only a health care provider trained in PICC removal, such as a PICC nurse, should take the PICC out. The PICC may be removed in the hospital or in an outpatient setting. Having a PICC removed is usually painless. Removal of the tape that holds the PICC in place may be the most uncomfortable part. After taking the PICC out the health care provider will hold gentle pressure on the exit site and place a bandage over the exit site. After the Procedure: Do not remove the bandage for 24 hours. When the bandage is removed, the small PICC insertion site may have a small scab. This site may be gently washed with soap and water, but do not remove or pickoff the scab. You do not need to put another bandage on the site. Avoid heavy or strenuous activity for 24 hours after the PICC is removed. This includes things likeweight lifting, strenuous yard work, or any physical activity with repetitive arm movement (baseball, football, etc.). Seek Medical Care If: Call or see your health care provider if you develop any of the following symptoms: Increasing tenderness, pain, or swelling in the PICC arm. Redness or a red streak, bleeding, or drainage from the PICC site. Numbness or tingling in your fingers, hand, or arm that had the PICC. Your PICC arm has a bluish color and is cold to the touch. You start to have chills or a fever. References Danny Matta M.D.,F.A.CFauziaSMD Fauzia. [facility]. Peripherally Inserted Central Catheter (PICC).My.[email or web address].. Counts include 234 beds at the [facility]. All About Your Peripherally Inserted Central Catheter (PICC).[facility].ca.December 2015. [place] [address] [place]: [employer], 2007. Print. [employer] Nerve Block Instructions How Does my [...] 24 hour Support Hotline: To call the [facility] Anesthesia service, call [phone] & ask for the Acute Pain resident, pager # [phone] The [facility] team will call daily. They will ask [...] Revised November 2020- Information obtained from [employer] * DO Warren Kunal Upendra: PERFORM Event Display: Patient Discharge Instructions Authored Date: [id number] RAFY PALACIO :1945 Visit Date:02/19/2024 Patient Discharge Instructions [facility] For medical concerns, call: . Date of Admission:02/19/2024 Date of Discharge:02/26/2024 Physician:DO Warren Kunal Upendra Service:Internal Medicine Discharge Disposition: . 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 My [facility] is a free service that provides you instant, secure access to your medical information anytime, anywhere. Sign in or set up your account today at [email or web address] Thank you for allowing us to assist you with your healthcare needs. If you need additional community resources, ISREAL Arreguin can help at https://www.pa211.org. 211 can assist you in connecting with social programs based on your unique needs and locations. 211 is an anonymous search that can help you locate resources for: Food, Housing, Transportation, Goods, Education and Healthcare. Medications Patient is enrolled in Rx-to-Go Program New medications will be delivered from [facility] to patient's room at discharge: Mon-Sun from 9AM-5 PM. Medications MUST be PICKED UP at [facility] if patient is discharged Mon-Sun after 5 PM or anytime on holidays. Please note, the [facility] closes at 8 PM on and 5:30 PM on Saturdays, Sundays, and holidays. What How Much When Instructions Next Dose New cefepime 2,000 Milligram intravenously Every 8 hours New latanoprost ophthalmic (latanoprost 0.005% ophthalmic solution) 1 Drops in both eyes At bedtime New tamsulosin (Flomax 0.4 mg oral capsule) 1 cap by mouth Once daily Changed DULoxetine (DULoxetine 30 mg oral delayed release capsule) 2 cap by mouth Once daily Changed doxycycline 100 Milligram by mouth 2 times daily Changed esomeprazole (esomeprazole 40 mg oral delayed release capsule) 1 cap by mouth Once daily Duration: 90 Days Changed furosemide (furosemide 20 mg oral tablet) 1 tab(s) by mouth Once daily as needed for discomfort take 1 tab daily as needed for weight gain Changed gabapentin (gabapentin 300 mg oral capsule) 1 cap by mouth 3 times daily Changed isosorbide mononitrate (isosorbide mononitrate 60 mg oral tablet, extended release) 1 tab(s) by mouth Once a day (in the morning) Duration: 90 Days Changed metoprolol (metoprolol tartrate 25 mg oral tablet) 0.5 tab(s) by mouth 2 times daily Changed oxyCODONE (oxyCODONE 5 mg oral tablet) 5 Milligram by mouth At bedtime as needed for as needed for pain take 1-2 tabs at bedtime as needed Changed pravastatin (pravastatin 40 mg oral tablet) 1 tab(s) by mouth Once daily Duration: 90 Days Changed ranolazine (ranolazine 500 mg oral tablet, extended release) 1 tab(s) by mouth 2 times daily Duration: 30 Days Unchanged clotrimazole (clotrimazole 10 mg oral lozenge) 1 lozenge(s) by mouth Once daily Unchanged ferrous sulfate (ferrous sulfate 325 mg (65 mg elemental iron) oral tablet) 1 tab(s) by mouth Once daily Duration: 90 Days Unchanged nystatin topical (nystatin 100,000 units/ g topical powder) See instructions APPLY topically daily for 30 days; Apply to feet daily with dressing changes. Unchanged olmesartan (olmesartan 5 mg oral tablet) 1 tab(s) by mouth Once daily Unchanged rivaroxaban (rivaroxaban 10 mg oral tablet) See instructions 20 mg daily What How Much When Comments Stop Taking acetaminophen (Tylenol 500 mg oral tablet) 2 tab(s) by mouth Every 8 hours Stop Taking amiodarone (amiodarone 200 mg oral tablet) 1 tab(s) by mouth Once daily Stop Taking apixaban (Eliquis 2.5 mg oral tablet) 1 tab(s) by mouth 2 times daily Stop Taking ascorbic acid (Vitamin C) 1,000 Milligram by mouth Once daily Stop Taking ascorbic acid/ chondroitin/ glucosa/ catherine (ascorbic acid/ chondroitin/ glucosamine/ manganese 20 mg-400 mg-500 mg-2 mg oral capsule) 1 tab(s) by mouth Once daily Stop Taking aspirin 81 Milligram by mouth Once daily Stop Taking cefpodoxime (cefpodoxime 200 mg oral tablet) TAKE 2 TAB ORALLY EVERY 12 HOURS FOR 14 DAYS MUST ADMINISTER WITH A MEAL/ FOOD Stop Taking cefuroxime (cefuroxime 500 mg oral tablet) 1 tab(s) by mouth 2 times daily Duration: 11 Days Stop Taking cyanocobalamin (cyanocobalamin 500 mcg oral tablet) Stop Taking folic acid (folic acid 1 mg oral tablet) 30 each, TAKE 1 TABLET BY MOUTH ONCE DAILY IN THE MORNING Stop Taking hydrOXYzine (hydrOXYzine hydrochloride 10 mg oral tablet) 14 each, TAKE 1 TABLET BY MOUTH AT BEDTIME NEEDED FOR ANXIETY OR INSOMNIA Stop Taking lactobacillus acidophilus (lactobacillus acidophilus oral capsule) 1 cap by mouth Once daily Stop Taking magnesium sulfate/ potass Cl/ sodium sulf (Sutab oral tablet) 0.5 tab(s) by mouth Stop Taking melatonin 5 Milligram by mouth At bedtime Stop Taking mirtazapine (mirtazapine 15 mg oral tablet) 30 each, TAKE 1 TABLET BY MOUTH AT BEDTIME Stop Taking nitroglycerin 0.4 Milligram sublingually Every 5 minutes as needed for as needed for chest pain Stop Taking omega-3 polyunsaturated fatty acids ([place]-3 1000 mg oral capsule) 1 cap by mouth Once daily Stop Taking potassium chloride (Klor-Con 10) 10 Milliequivalent by mouth 2 times daily with lasix Stop Taking senna (Senna 8.6 mg oral tablet) 1 tab(s) by mouth At bedtime Stop Taking sulfamethoxazole-trimethoprim (sulfamethoxazole-trimethoprim 800 mg- 160 mg oral tablet) TAKE 1 TABLET BY MOUTH TWICE DAILY FOR 13 DAYS Stop Taking traMADol (Ultram 50 mg oral tablet) 1 tab(s) by mouth Every 8 hours Stop Taking travoprost ophthalmic (Travatan Z) 1 Drops in both eyes Every evening Allergies Catsthroat closes up No Known Medication Allergies What to do next Instructions From Your Doctor ORTHOPEDIC INSTRUCTIONS: Wound care: Keep the Aquaceldressing in place until you are seen in the office for your first post-op appointment. We will take off the dressing at that appointment. You may shower with the Aquacel in place (do not let water hit the dressing directly). If you are having issues with the Aquacel staying on, please call our office. It is normal to have some drainage on your dressing after your surgery. However, call our office ifthe inner legal associate rectangle on the dressing is more than 80% saturated. Sutures will be over the incision; do not remove them. We will remove the sutures at your first post-operative visit. At any point, DO NOT soak in a bathtub, hot tub, or pool until your surgeon tells you that you may do so. Janel Hose: Wear the janel hose/stockings forthenext two weeks as tolerated.They can be removedat night while in bed, and put back on in the morning. NO SMOKINGor use of any products containing nicotine. Research has shown that these delay bone healing and increase the risk of infection and DVT/PE formation (blood clots in your legs and lungs). These products should be stopped in the postoperative period. Activity: Weightbearing as tolerated through the operative extremity. ACTIVE knee range of motion only (Thismeansonly you shouldbe bending orstraighteningyour knee.Do not havePT apply pressure toyour kneeto get it to straighten or bend). -You will need to continue to take IV antibiotics to help treat your infection. You will be on IVcefepime 2 g every 8 hourswith theend date on 04/06/24. Please continue doxycycline 100 mg twice daily. This end date will be TBD by ID.you will need weekly CBC, CMP, ESR, CRP while on this medication. Please have lab results FAX'd to the ID office at [phone]. [facility].please follow-up with orthopedic surgery, infectious disease, your primary care provider as instructed. You also received an MRIof the abdomenwhich showedpancreatic cysts as well as smaller structures consistent withintraductal papillary mucinous neoplasm.per the radiologist read, there were not any worrisomeorhigh risk stigmata noted. You should stillget surveillance of this cystas an outpatient. Please coordinate this with your primary care provider If you notice the following symptoms worseening symptoms Contact the [facility] Careline at . If unable to contact your physician and you feel it is an emergency, go to the nearest Emergency Room or call 911 Diet Instructions Activity Instructions Weight Bearing Leg, Right, Weight Bearing As Tolerated Weight Bearing Leg, Right, Weight Bearing As Tolerated Follow-Up Appointments Scheduled Follow-Up Appointments Date/Time:Provider/Resource: Mar 11:25 ISREAL Cullen Karyn Location/Instructions:[facility] [place], [address], [address] [address] [facility] [address], [place] [address] Date/Time:Provider/Resource: Mar 11:25 ISREAL Rooney Michelle M Location/Instructions:[facility] [place], [address], [address], [address], [place] [address] Date/Time:Provider/Resource: Apr 04:00 DESTINEY Garcia Christina L Location/Instructions:Please arrive 15 minutes prior to your appointment time with [facility], [address], [address], [place] [address] Date/Time:Provider/Resource: May 02:00 pmRadiology EC Location/Instructions:[facility] [place], [address], [address], [address], [place] [address] Date/Time:Provider/Resource: May 02:25 [place] Barros Michelle M Location/Instructions:[facility] [place], [address], [address], [address], [place] [address] Date/Time:Provider/Resource: May 02:30 MD Mcnair Charles M Location/Instructions:[facility] [place], [address], [address]tr[address], [address], [facility] [address] You Need to Schedule the Following Appointments [place] [place] Additional Information: Call Careline for appt. [facility] [place] [facility] Additional Information: Call Careline for appt. if not contacted Follow Up withDO Orozco Thomas Where:[facility] [address] [place], [place] [address]- Additional Information: upon discharge from rehab Call your doctor to make an appointment The Following Services Have Been Arranged for You Service: Organization: Business Address: Phone Number: [facility] [address] [place] [address], [facility], [place], [address] Tests Pending Basic Metabolic Panel To obtain results pending at hospital discharge, call and ask for the following Physician:DO Warren Kunal Upendra Procedures Performed right knee I&D 02/20/2024 Right knee I&D, poly exchange 02/23/2024 Special Instructions Common Emergency Awareness Tips Call [...] to get immediate medical attention! Education Materials PICC Guide Insertion, Care, and Removal PICC is short for Peripherally Inserted Central Catheter. A PICC is a long, soft, thin, flexible tube that is inserted into a vein in the upper arm and ends in the superior vena cava (SVC), a large vein just above the heart where there is a lot of blood flow (your central circulation). This allows medicines and IV fluids to be quickly distributed throughout the body. Intravenous (IV) therapy is the infusion of liquid substances directly into a vein. A PICC is a form of IV therapy/access that allows intravenous fluids, medications (antibiotics), chemotherapy, and total parenteral nutrition to be given. A PICC is inserted using a sterile technique by a specially trained health care provider. After insertion, correct placement of the PICC is confirmed using a tip confirmation system, and in some instances a portable chest x-ray. If taken care of properly, a PICC can remain in place for several months. A PICC can allow a personin need of further IV therapy to be discharged from the hospital early, either to home or to a rehabilitation facility. PICC care and teaching will be done by a [place] health care team [place]. Potential Problems Problems with a PICC can occasionally occur. These may include the following: Total or partial occlusion of the catheter caused by an accumulation of fibrin and blood cells (thrombus). There is a clot-dissolving medicine that can be given through the PICC to break up the occlusion. Inflammation of the vein (phlebitis) in which the PICC is placed. Signs of inflammation may includeredness, red streaks, pain at insertion site, or being able to feel a cord in the vein where the PICC is located. Upper arm venous thrombosis (clot) of superficial or deep vein. PICC movement (malposition). The PICC tip may move from its original position due to excessive physical activity or forceful coughing, sneezing, or vomiting. Infection in the PICC or at the insertion site. Signs of infection may include fever, chills, redness, swelling, or pus drainage from the PICC insertion site. A break or cut in the PICC. Never use scissors near the PICC. Nerve or tendon irritation or injury during PICC insertion. Activities and Restrictions You may bend your arm and move it freely. Moderate exercise such as walking does not harm your PICC. Avoid strenuous activity or activities that have constant arm movement or reaching such as weight lifting, jumping jacks, or vacuuming. Avoid moving/lifting heavy objects greater than 10 pounds. Avoid carrying bags or purses over your PICC shoulder or using crutches with the PICC arm. Avoid getting the PICC dressing (bandage) wet. When you shower or bathe wrap the PICC arm with plastic wrap and tape closed. Avoid swimming or hot tubs. Do not totally submerse the arm under water even if it is covered as it is difficult to stop water from getting under the PICC dressing. Moisture under the dressing can cause the dressing to fall off and is a source for infection. Care of Your PICC If you are an INPATIENT at a hospital or rehabilitation facility, your PICC care and medication administration will be done by a nurse. If you are DISCHARGED to home, a Community/Home Health Nurse will be assigned to change your dressing and teach you how to give your IV medication. Look at your site once a day. The PICC dressing should be dry and intact. The PICC site should be free from tenderness, redness, swelling, or drainage. Weekly dressing changes are needed and MUST be done ONLY by a nurse (more frequently if dressing gets wet, soiled, or loose). If your dressing looks loose, wet, or soiled, contact your nurse. If needed, reinforce the dressing with tape until the nurse arrives. NEVER REMOVE your PICC dressing. Flush PICC as directed by your nurse. Make them aware if PICC is difficult to flush or does not flush. DO NOT use force to flush PICC. NEVER allow blood pressure checks or blood draws on the PICC arm. NEVER use anything but the supplies provided by your nurse to care for your PICC or administer yourmedications. DO NOT remove your own PICC! Only a trained professional should remove your PICC. Contact your Community/Home Health Nurse if you have a problem or concern. Seek IMMEDIATE Medical Care If: Your PICC is accidentally pulled all the way out. If this happens, cover the insertion site with a bandage or gauze dressing. DO NOT throw the PICC away. Your nurse will need to inspect it. There is any type of drainage, redness, or swelling at the PICC insertion site. You cannot flush the PICC, it is difficult to flush, or the PICC leaks around the insertion site when it is flushed. You hear a flushing sound when the PICC is flushed. You have a pain, discomfort, or numbness in your arm, shoulder, or jaw on the same side as the PICC. You feel your heart racing or skipping beats. You notice a hole or tear in the PICC. You develop chills or fever. PICC Removal and Care A PICC is removed when it is no longer needed (treatment is complete), when it is not working properly (clotted), or when there are complications (swelling of the arm, which could be from a blood clot or infection). Risks and Complications: Generally this is a safe procedure. However, as with any procedure, problems can occur: Bleeding Infection Procedure: DO NOT remove the PICC yourself. An order from a health care provider is needed to remove the PICC. Only a health care provider trained in PICC removal, such as a PICC nurse, should take the PICC out. The PICC may be removed in the hospital or in an outpatient setting. Having a PICC removed is usually painless. Removal of the tape that holds the PICC in place may be the most uncomfortable part. After taking the PICC out the health care provider will hold gentle pressure on the exit site and place a bandage over the exit site. After the Procedure: Do not remove the bandage for 24 hours. When the bandage is removed, the small PICC insertion site may have a small scab. This site may be gently washed with soap and water, but do not remove or pickoff the scab. You do not need to put another bandage on the site. Avoid heavy or strenuous activity for 24 hours after the PICC is removed. This includes things likeweight lifting, strenuous yard work, or any physical activity with repetitive arm movement (baseball, football, etc.). Seek Medical Care If: Call or see your health care provider if you develop any of the following symptoms: Increasing tenderness, pain, or swelling in the PICC arm. Redness or a red streak, bleeding, or drainage from the PICC site. Numbness or tingling in your fingers, hand, or arm that had the PICC. Your PICC arm has a bluish color and is cold to the touch. You start to have chills or a fever. References Danny Matta M.D.,F.A.CFauziaSMD Fauzia. [facility]. Peripherally Inserted Central Catheter (PICC).My.[email or web address].. Counts include 234 beds at the [facility]. All About Your Peripherally Inserted Central Catheter (PICC).[facility].December 2015. [place] [address] [place]: [employer], 2007. Print. [employer] Nerve Block Instructions How Does my [...] 24 hour Support Hotline: To call the [facility] Anesthesia service, call [phone] & ask for the Acute Pain resident, pager # [phone] [facility] will [facility] daily. They will ask [...] ExitCare. Revised November 2020- [facility] * MD Taina, Alejandro: VERIFY MD Taina, Alejandro: VERIFY, MODIFY MD Taina, Alejandro: MODIFY, SIGN MD Taina, Alejandro: SIGN, SIGN Event Display: Anes Acute Pain Procedure Note Authored Date: [id number] Patient: RAFY PALACIO Age: 78 years Sex: Male : 1945 Associated Diagnoses: None Author: DO Brito Almeet Health Status Allergies: Allergic Reactions (Selected) Severity Not Documented Cats- Throat closes up. No Known Medication Allergies, Allergies (2) Active Reaction Cats throat closes up No Known Medication Allergies None Documented . Current Medication: (Selected) Inpatient Medications Ordered DULoxetine: 60 mg, PO, Daily Dilaudid: 0.25 mg, IV Push, q10min, PRN: pain - severe (7-10) Dilaudid: 0.25 mg, IV Push, q4h, PRN: breakthrough pain Flomax: 0.4 mg, PO, Daily InfuBLOCK Pain Pump: 1 each, perineural, As indicated Melatonin: 5 mg, PO, qhs, PRN: Insomnia MiraLax: 17 g, PO, Daily Narcan: 0.04 mg, IV Push, As indicated, PRN: respiratory depression Protonix: 40 mg, PO, Daily ROPivacaine 0.2% InfuBLOCK Infusion Pump 500 mL: 6 mL/HR, perineural, Stop: 04/23/24 15:17:00 EST Sucrets, [place]: 1 lozenge, buccal, q2h, PRN: sore throat acetaminophen: 1,000 mg, PO, q8h calcium gluconate: 1,000 mg, 50 mL, 50 mL/HR, IV, As indicated, PRN: see order comments ertapenem: 1,000 mg, 10 mL, 100 mL/HR, IV, q24h fentaNYL: 50 mcg, IV Push, ONCE, PRN: breakthrough pain gabapentin: 300 mg, PO, tid guaiFENesin extended release: 1,200 mg, PO, bid latanoprost 0.005% ophthalmic solution: 1 drop, both eyes, qhs metoprolol tartrate: 12.5 mg, PO, bid mupirocin 2% nasal ointment: 1 appl, each nostril, bid ondansetron: 4 mg, IV Push, ONCE, PRN: nausea and vomiting ondansetron: 4 mg, IV Push, q6h, PRN: nausea and vomiting oxyCODONE: 10 mg, PO, q4h, PRN: pain - moderate (4-6) oxyCODONE: 15 mg, PO, q4h, PRN: pain - severe (7-10) pravastatin: 40 mg, PO, Daily ranolazine: 500 mg, PO, bid senna: 8.6 mg, PO, Daily vancomycin: 1,500 mg, 500 mL, 333.33 mL/HR, IV, q24h Prescriptions Prescribed cefuroxime 500 mg oral tablet: 1 tab, PO, bid, for 11 day, 22 tab clotrimazole 10 mg oral lozenge: 1 lozenge, PO, Daily, 30 lozenge esomeprazole 40 mg oral delayed release capsule: 1 cap, PO, Daily, for 90 day, 90 cap ferrous sulfate 325 mg (65 mg elemental iron) oral tablet: 1 tab, PO, Daily, for 90 day, 90 tab furosemide 20 mg oral tablet: 1 tab, PO, Daily, take 1 tab daily as needed for weight gain, PRN: discomfort, 30 tab isosorbide mononitrate 60 mg oral tablet, extended release: 1 tab, PO, qAM, for 90 day, 90 tab nystatin 100,000 units/g topical powder: See Instructions, APPLY topically daily for 30 days; Applyto feet daily with dressing changes., 60 g olmesartan 5 mg oral tablet: 1 tab, PO, Daily, 90 tab oxyCODONE 5 mg oral tablet: 1 tab, PO, qhs, take 1-2 tabs at bedtime as needed, PRN: as needed for pain, 30 tab pravastatin 40 mg oral tablet: 1 tab, PO, Daily, for 90 day, 90 tab ranolazine 500 mg oral tablet, extended release: 1 tab, PO, bid, for 30 day, 60 tab Documented Medications Documented metoprolol tartrate 25 mg oral tablet: 0.5 tab, PO, bid. Problem List: Medical Aftercare following right knee joint replacement surgery / SNOMED CT 753778800 / Confirmed Arthritis of knee, right / SNOMED CT 9060814093 / Confirmed Atrial fibrillation / SNOMED CT 71821156 / Confirmed CAD (coronary artery disease) / SNOMED CT 96645852 / Confirmed Infection of total right knee replacement / SNOMED CT 6002447337 / Confirmed Multiple drug resistant organism (MDRO) culture positive / SNOMED CT 0923672183 / Confirmed Peripheral vascular disease / SNOMED CT 7909562383 / Confirmed RA (rheumatoid arthritis) / SNOMED CT 019890287 / Confirmed Right knee pain / SNOMED CT 9150507761 / Confirmed Tinea unguium / SNOMED CT 1826516910 / Confirmed All Problems Aftercare following right knee joint replacement surgery / SNOMED CT 557233228 / Confirmed Arthritis of knee, right / SNOMED CT 3199430908 / Confirmed Atrial fibrillation / SNOMED CT 54037668 / Confirmed CAD (coronary artery disease) / SNOMED CT 51842815 / Confirmed Infection of total right knee replacement / SNOMED CT 1782123155 / Confirmed Multiple drug resistant organism (MDRO) culture positive / SNOMED CT 0803058456 / Confirmed Peripheral vascular disease / SNOMED CT 0198484555 / Confirmed RA (rheumatoid arthritis) / SNOMED CT 016659704 / Confirmed Right knee pain / SNOMED CT 8090543472 / Confirmed Tinea unguium / SNOMED CT 4507266799 / Confirmed. Procedure Assessment VS/Measurements: Vital Signs 02/23/2024 14:23 EDT MEWS Score 0 02/23/2024 14:22 EDT Temperature 36.9 DegC Temperature Route Temporal Heart Rate 61 bpm Respiratory Rate 18 br/min Systolic Blood Pressure 155 mmHg Diastolic Blood Pressure 86 mmHg BP Location # 1 Left Arm, Non-invasive BP Cuff Size Regular Cuff Pulse Pressure 69 mmHg Oxygen Therapy Room Air SpO2 98 % 02/23/2024 12:00 EDT Temperature Central Warm 02/23/2024 08:22 EDT MEWS Score 1 02/23/2024 08:22 EDT Heart Rate 67 bpm 02/23/2024 08:19 EDT MEWS Score 1 02/23/2024 08:00 EDT Temperature 36.0 DegC LOW Temperature Route Temporal Temperature Central Warm Heart Rate 70 bpm Respiratory Rate 16 br/min Systolic Blood Pressure 142 mmHg Diastolic Blood Pressure 75 mmHg BP Location # 1 Left Arm, Non-invasive BP Cuff Size Regular Mean Blood Pressure 96 mmHg Cuff Pulse Pressure 67 mmHg Oxygen Therapy Room Air SpO2 97 % 02/23/2024 05:45 EDT MEWS Score 0 02/23/2024 04:44 EDT Temperature 36.7 DegC Temperature Route Temporal Heart Rate 71 bpm Systolic Blood Pressure 120 mmHg Diastolic Blood Pressure 68 mmHg BP Location # 1 Left Arm, Non-invasive BP Cuff Size Regular Mean Blood Pressure 81 mmHg Cuff Pulse Pressure 52 mmHg Oxygen Therapy Room Air SpO2 95 % 02/23/2024 04:00 EDT Temperature Central Warm Respiratory Rate 18 br/min 02/22/2024 20:29 EDT MEWS Score 1 02/22/2024 20:27 EDT Heart Rate 74 bpm 02/22/2024 20:15 EDT Temperature 35.6 DegC LOW Respiratory Rate 18 br/min Systolic Blood Pressure 153 mmHg Diastolic Blood Pressure 92 mmHg BP Location # 1 Left Arm, Non-invasive BP Cuff Size Regular Mean Blood Pressure 106 mmHg Cuff Pulse Pressure 61 mmHg Oxygen Therapy Room Air SpO2 96 % 02/22/2024 20:00 EDT Temperature Central Warm 02/22/2024 16:55 EDT MEWS Score 1 02/22/2024 16:00 EDT Temperature 36.0 DegC LOW Temperature Route Temporal Temperature Central Warm Heart Rate 67 bpm Respiratory Rate 16 br/min Systolic Blood Pressure 122 mmHg Diastolic Blood Pressure 71 mmHg BP Location # 1 Right Arm, Non-invasive BP Cuff Size Regular Mean Blood Pressure 87 mmHg Cuff Pulse Pressure 51 mmHg Oxygen Therapy Room Air SpO2 96 % 02/22/2024 12:00 EDT Temperature Central Warm 02/22/2024 11:00 EDT MEWS Score 1 02/22/2024 08:45 EDT Temperature 36.0 DegC LOW Temperature Route Temporal Respiratory Rate 16 br/min Systolic Blood Pressure 153 mmHg Diastolic Blood Pressure 82 mmHg BP Location # 1 Left Arm, Non-invasive BP Cuff Size Regular Mean Blood Pressure 104 mmHg Cuff Pulse Pressure 71 mmHg Oxygen Therapy Room Air SpO2 95 % 02/22/2024 08:41 EDT Heart Rate 79 bpm 02/22/2024 08:00 EDT Temperature Central Warm 02/22/2024 04:54 EDT MEWS Score 1 02/22/2024 04:00 EDT Temperature 35.9 DegC LOW Temperature Route Temporal Temperature Central Warm Heart Rate 72 bpm Respiratory Rate 14 br/min Systolic Blood Pressure 131 mmHg Diastolic Blood Pressure 71 mmHg BP Location # 1 Left Arm, Non-invasive BP Cuff Size Regular Mean Blood Pressure 88 mmHg Cuff Pulse Pressure 60 mmHg Oxygen Therapy Room Air SpO2 96 % 02/22/2024 00:00 EDT Oxygen Therapy Room Air . APMS consulted for adductor nerve block for post-operative pain control. Consent was reviewed. Patient was identified by name and prior to procedure as part of the timeout. Patient positioned in supine position with right leg frog-leg position. Patient was prepped and draped in standard sterile fashion. Ultrasound probe was used for visualization of saphenous nerveand needle throughout procedure. After adequate needle placement by visualization, catheter was fixed in place. Confirmed placement of the catheter with ultrasound. 10 ml of 0.5% Ropivacaine was injected into the area without aspiration of blood. Assessment: Procedure Date: 02/23/2024. Patient Identification: Yes. Patient Weight: 120 kg. SBP: 155 mmHg. DBP: 86 mmHg. Temperature: 39.6 DegC. Consent for regional Procedure: Yes. Pain Assessment: Pain Location: Lower Leg, Right. Acute Pain Procedure Procedure Location: OR. Timing of Procedure: Pre-emergence. Correct Site/Side Identified/Marked: Yes. Patient Monitored: Yes. Oxygen Available: Yes. Time Out Complete: Yes. Sterile field established: Yes. Ultrasound probe covered with sterile sleeve as indicated: Yes. Nerve identified and examined with ultrasound: Yes. Needle advanced to desired location under ultrasound guidance: Yes. Ultrasound image stored in PACS: Yes. Procedure Start Time: 02/23/2024 17:11:00. Procedure End Time: 02/23/2024 17:28:00. Attending Present: Yes. Anesthesiologist: MD Her Wayne. Referring Physician: Dr. Indio Kern . Patient Awake and Alert: No, Comment: preemergence. Peripheral Block + Block: Primary. Patient Position: Supine. Block Location: Lower leg, right. Laterality: Right. Sedation: General Anesthesia. Skin Preparation: Chlorhexidine. Needle Type: Short Bevel/Stimulating. MRI Compatible: No. Needle Gauge: 18. Needle Length: 83 mm. Local Infiltration: No. Technique: Continuous Catheter. Block Description: Adductor Canal. Nerve Localization Technique: Anatomical [place], Ultrasound. Ultrasound Orientation: In plane. # of attempts: 1 . Aspiration: None. Medication Injected: PowerOrders Pharmacy: ROPivacaine 0.5% (Order): 10 mL, perineural, ONCE. Fractionated Dose: 5 mL. Total Volume Injected: 10 mL. Parasthesia: No. Block Complications: No. Professional Services Resident/Fellow/AUTOMATION QA TESTER: DO Brito Almeet. Acute Pain Procedure For Post Op Pain Management: Yes. If yes, Referring Physician: Dr. Kern . Physician Attestation: I personally performed the procedure. Anesthesia Hospital Charge AdHoc Form: Regional Anesthesia Section Completed: Yes. Electronic Signature on File Electronically Reviewed/Signed by: Tanna Brito DO Author Signature Dt/Tm:02/23/2024 05:42 PM Resident Department of Physical Medicine & Rehabilitation Electronically Reviewed/Signed by: Alejandro Her [facility] Signature Dt/Tm: 02/24/2024 05:31 PM Department of Anesthesia [place] Note * MD Gloria Michael: MODIFY, PERFORM Event Display: Brief Operative Note Authored Date: [id number] BRIEF OPERATIVE NOTE Name: RAFY PALACIO Patient Number: [id number] : 1945 Date of Service: 02/23/2024 Pre-op Diagnosis: R knee periprosthetic joint infxn Post-op Diagnosis: R knee periprosthetic joint infxn Procedure: R knee irrigation and debridement, placement of antibiotic beads, poly exchange Surgeon: Erlin Assistants: Milind Gloria Anesthesia: General Estimated Blood Loss: 75 _ Less than 50ml Drains: 2 drains in knee joint, not sewn in Fluids: 1L Urinary Output: minimal, song in place Condition: stable to pacu Complications: none Specimen: 2 sent None Findings: signs of prior surgery, clot, quad tendon incision Check one _ Pharmacologic VTE prophylaxis not indicated x Standard VTE prophylactic regimen ordered _ Pharmacologic VTE prophylaxis contraindicated due to increased risk of intraoperative and / or postoperative bleeding Check one _ No antibiotics indicated _ Standard prophylactic antibiotic regimen ordered x Antibiotic regimen changed due to concern for infection # Primary Team: Ortho joints # Weight bearing: WBAT # Activity: OOB # DVT prophylaxis / Anticoagulation: Ortho recommends Elliquis 2.5 daily starting tomorrow 0500 # Diet: ADAT # : Song still in place # Consults: APMS for block # PT/OT: Ordered, must participate before DC # Pain control:per primary #Blocks:placed in OR # Cultures:sent # Antibiotics:Continue per Ortho ID # Drains:none # Dressings: Aquacell # Labs:Postop hct, CBC BMP AM # Home meds:per primary # Imaging: XR in PACU # In-hospital Dispo: per primary # Follow up: as scheduled Electronic Signature on File Electronically Reviewed/Signed by: Irwin Gloria MD Author Signature Dt/Tm:02/23/2024 07:13 PM Resident Division of Orthopaedics Electronically Reviewed/Signed by: Manjit Kern III, MD, PhD Cosigner Signature Dt/Tm: 02/23/2024 08:43 PM Professor, Orthopaedics [facility] [place] [address] [place] [id number] ML * MD Lacey, [place]: PERFORM, MODIFY, MODIFY Event Display: Brief Operative Note Authored Date: [id number] BRIEF OPERATIVE NOTE Name: RAFY PALACIO Patient Number: [id number] : 1945 Date of Service: 02/20/2024 Pre-op Diagnosis: Right knee chronic prosthetic joint infection Post-op Diagnosis: Right knee chronic prosthetic joint infection Procedure: Right knee irrigation and debridement Surgeon: Dr. Grant Assistants: Cordell PGY4, Lacey PGY3, Jaz MS4 Anesthesia: GETA Estimated Blood Loss: 50 x Less than 50ml Drains: 10Fr hemovac x1 Fluids: 1L crystalloid Urinary Output: 350cc through song Condition: stable to SAICU where patient was admitted pre-op Complications: none Specimen: intraop tissue and synovial fluid cultures _ None Findings: gross purulence within the knee joint. Well fixed implants. Check one _ Pharmacologic VTE prophylaxis not indicated x Standard VTE prophylactic regimen ordered _ Pharmacologic VTE prophylaxis contraindicated due to increased risk of intraoperative and / or postoperative bleeding Check one _ No antibiotics indicated _ Standard prophylactic antibiotic regimen ordered x Antibiotic regimen changed due to concern for infection ASSESSMENT AND PLAN: 78 y/o male s/p right knee irrigation and debridement Weight bearing: Weight-bearing as tolerated RLE Physical Therapy: Consulted DVT prophylaxis: Per primary Dressinx4s, webril, MARITZA Antibiotics: per infectious disease Pain control: per primary Drain: 10Fr hemovac x1 lateral right knee Imaging: none Labs: per primary Home Medications: Restarted Diet/GI: ADAT : song Electronic Signature on File Electronically Reviewed/Signed by: Indio Rahman MD Author Signature Dt/Tm:02/20/2024 11:12 AM Resident Division of Orthopaedics CS Patient Care team information Care Team Personnel Name: Rama Oakley Amy E Position: Pharmacist Member Role: Pharmacy - [facility] Address: [place] [address] [place] Name: Rama Salinas Christine A Position: Pharmacist Member Role: Pharmacy - [facility]etime Name: DO Orozco Thomas Position: Referring Member Role: Primary Care Provider Address: [facility] [address] [facility] [address] Name: Rama Luz John Position: Pharmacist Member Role: Pharmacy - Lifetime Care Team Related Persons Name: AURBIE PALACIO Name: MORE ACHARYA
--- OUTSIDE RECORDS SUMMARY | 2024-03-29 20:14 | External Medical Summary ---
Author Name Unknown Address Unknown Organization [id number]:[facility] [address] [place] [id number] Laboratory Report Ordering Provider Test Date Status SHADE SCHMITT 02/27/2024 06:30:00 Final Observation Date Value Abnormality Reference (Units ) Status BUN 02/27/2024 06:30:00 22 Above high normal 6-20 (mg/dL) Final Creatinine 02/27/2024 06:30:00 0.9 0.6-1.2 (mg/dL) Final Glomerular filtration rate/1.73 sq M.predicted [Volume Rate/Area] in Serum, Plasma or Blood by Creatinine-based formula (CKD-EPI) 02/27/2024 06:30:00 83 >=60 (mL/min) Final eGFR is calculated based on the CKD-EPI 2020 equation. Sodium 02/27/2024 06:30:00 135 135-146 (m mol/L) Final Potassium 02/27/2024 06:30:00 4.3 3.5-5.1 (m mol/L) Final Cl 02/27/2024 06:30:00 100 98-107 (mm ol/L) Final CO2 02/27/2024 06:30:00 29 22-32 (mmo l/L) Final Anion gap 02/27/2024 06:30:00 6 Below low normal 7-1 5 (mmol/L) Final Glucose 02/27/2024 06:30:00 113 70-120 (mg /dL) Final Calcium 02/27/2024 06:30:00 9.0 8.4-10.2 ( mg/dL) Final Performing Location [facility] [address] [place] [id number]
[2024-03-29] MEDS ORDERED: NON-FORMULARY MEDICATION (Melatonin 5 mg Tablet) PO SCH (21:00)
[2024-03-29] MEDS: SENNA 8.6 MG TAB PO SCH (22:26)
[2024-03-29] MEDS: DOXYCYCLINE HYCLATE 100 MG CAP PO SCH (22:26)
[2024-03-29] MEDS: GABAPENTIN 400 MG CAP PO SCH (22:26)
[2024-03-29] MEDS: PRAVASTATIN SOD 40 MG TAB PO SCH (22:26)
[2024-03-29] MEDS: MIRTAZAPINE TAB 15 MG TAB PO SCH (22:26)
[2024-03-29] MEDS: RANOLAZINE 500 MG ER TAB PO SCH (22:27)
[2024-03-29] MEDS: LATANOPROST 0.005% OP SOLN 2.5 ML BTL OP SCH (22:27)
[2024-03-29] MEDS: METOPROLOL TARTRATE 25 MG TAB PO SCH (22:42)
[2024-03-29] MEDS: MELATONIN 3 MG TAB PO PRN (22:42)
[2024-03-30 07:17] LABS: Basophils # (auto) 0.05 K/uL (0.00-0.20); Basophils % (auto) 0.6 %; Eosinophils # (auto) 0.74 K/uL (0.00-0.50); Eosinophils % (auto) 9.5 %; Hematocrit (blood only) 27.9 % (42.0-52.0); Hemoglobin 8.8 g/dl (14.0-18.0); Immature Granulocytes # (auto) 0.02 K/uL (0.01-0.20); Immature Granulocytes % (auto) 0.3 %; Lymphocytes # (auto) 0.94 K/uL (1.20-3.40); Lymphocytes % (auto) 12.1 %; Mean Corpuscular Hemoglobin 30.7 pg (25.0-34.0); Mean Corpuscular Hgb Conc 31.5 g/dL (32.0-36.0); Mean Corpuscular Volume 97.2 fL (80.0-100.0); Mean Platelet Volume 10.5 fL (9.4-12.4); Monocytes # (auto) 0.89 K/uL (0.11-0.59); Monocytes % (auto) 11.5 %; Neutrophils # (auto) 5.11 K/uL (1.40-6.50); Platelet Count 227 K/uL (130-400); RDW Coefficient of Variation 15.9 % (11.5-14.5); RDW Standard Deviation 56.7 fL (36.4-46.3); Red Blood Count 2.87 M/uL (4.70-6.10); White Blood Count 7.75 K/ul (4.8-10.8)
[2024-03-30 07:30] LABS: BUN Creatinine Ratio 18.6 (10-20); Calcium 7.8 mg/dl (8.6-10.3); Creatinine Clr Calc Pharmacy 48.4 ml/min; Magnesium 1.5 mg/dl (1.7-2.4); Potassium 3.7 mmol/L (3.5-5.1)
[2024-03-30 07:35] LABS: Troponin I High Sensitivity 34.7 pg/ml (0-20)
[2024-03-30 07:44] LABS: Thyroid Stimulating Hormone 1.834 uIu/ml (0.300-4.500)
[2024-03-30] MEDS ORDERED: INFLUENZA VACC TS2024-25(65y+)/PF (IIV3) 0.5mL Syr IM ONE (09:00)
[2024-03-30] MEDS: DULoxetine HCL 60 MG CAP PO SCH (09:26)
[2024-03-30] MEDS: ISOSORBIDE MONO EXTENDED REL 60 MG TABCR PO SCH (09:26)
[2024-03-30] MEDS: ASPIRIN 81 MG ECTAB PO SCH (09:26)
[2024-03-30] MEDS: ADVANCED PROBIOTIC 625 MG CAPSULE PO SCH (09:26)
[2024-03-30] MEDS: FERROUS SULFATE 325 MG TAB PO SCH (09:26)
[2024-03-30] MEDS: RIVAROXABAN 20 MG TAB PO SCH (09:27)
[2024-03-30] MEDS: TAMSULOSIN HCL 0.4 MG CAP PO SCH (09:27)
[2024-03-30] MEDS: LOSARTAN POTASSIUM 25 MG TAB PO SCH (09:27)
[2024-03-30] MEDS: MAGNESIUM OXIDE 400 MG TAB PO SCH (10:14)
--- NOTE | 2024-03-30 14:47 | Hospitalist Progress Note ---
Date of Service March 30, 2024 Assessment & Plan (1) Ambulatory dysfunction: Plan: Patient recently d/c from [facility] to independent living at [facility] - reportedly fell while transferring from wheelchair to bed and was on the ground for approximately 12 hours CK level WNL on arrival Currently recieving IV abx (Ertapenem) due to knee infection - due to continue through 04/06 03/30 - Hypotensive and hypoxic after working with PT --> transfer to PCU - Blood cultures ordered (one from PICC line) - bio fire - lactic and procal ordered - 500 CC NSS bolus given PT/OT evaluations appreciated, CM following AM CBC, BMP and Mag (2) JEFFERY (acute kidney injury): Plan: BUN 30, creatinine 1.67 (baseline 1.11.2) on arrival Daughter reports that patient had JEFFERY due to cefepime use at [facility], which was switched to erapenem on 03/18. Cr peaked at 2.5 at [facility] Avoid nephrotoxic agents where possible Hold bumex and ARB NSS 500 mL IV given in the ED Encourage p.o. fluids in the setting of national IVF shortage (3) Anemia: Plan: Acute on Chronic - baseline seems to fluctuate between 10-13 Hgb on admission 10.8 --> 8.8 INR 1.7 xarelto held Pt does report black stools, and possible BRBPR - fecal occult ordered Repeat CBC and PT/INR this afternoon (4) Hypomagnesemia: Plan: Magnesium 1.4 on arrival - replaced IV and PO Repeat level 1.5, continue BID PO supplementation AM Mag (5) Infection of prosthetic right knee joint: Plan: Right knee x-ray on arrival revealed soft tissue swelling and small to moderate right knee joint effusion Continue ertapenem IV daily and doxycyline BID Monitor PICC line Plan Chronic stable medical conditions: * afib - continue metoprolol, xarelto held for concerns for possible GIB Admission and Anticipated Discharge Date Admission Date: March 29, 2024 Subjective Patient seen earlier this morning - fatigue and falling asleep during conversation. Denies specific pain anywhere. States that his leg just gave out of him during his fall. Has been getting his IV antibiotics. Does think he has seen blood in his stool Revisted later this afternoon after notification from the RN That hypotensive and hypoxic after therapy. Legs do not look infected. No new focal symptoms. Labs ordered. Review of Systems Review of Systems: All systems reviewed & are unremarkable except as noted in Subjective Physical Exam Physical Exam: General: NAD, VS as above Resp: normal respiratory effort, diminished in the bases CV: RRR, no murmur, Abd: normal bowel sounds, non tender, no hepatosplenomegaly Extremities: Moves all extremities, b/l LE consistent with venous stasis. no signs of active infection. Healing wound to right knee - sutures in place. Neuro: A&O x3, Results & Data Results & Data Vital Signs (Past 12 Hours) Vital Signs Temp Pulse Pulse Resp BP BP Pulse Ox 03/30/24 13:40 81 12 82/44 L 87 L 03/30/24 06:59 98.1 F 81 20 149/89 H 91 O2 Del Method 03/30/24 13:40 Room Air 03/30/24 06:59 Room Air Laboratory Results CBC and chemistry reviewed PG Care Time/CCT Total # of Minutes Spent Total Time Spent with Patient: Total time spent is greater than 50% in coordination of care (as documented) at patient's floor/unit and/or counseling patient: Coding Level of Care Code 64490 SUB INP/OBS CARE 2/35MIN Diagnoses Ambulatory dysfunction R26.2 JEFFERY (acute kidney injury) N17.9 Anemia D64.9 Anemia type: unspecified type Hypomagnesemia E83.42 Infection of prosthetic right knee joint T84.53XA (3) Anemia Anemia type: unspecified type Qualified Code(s): D64.9 - Anemia, unspecified
[2024-03-30] MEDS: SODIUM CHLORIDE 0.9% 500 ML IV ONE (15:10)
[2024-03-30 16:14] LABS: Hematocrit (blood only) 27.6 % (42.0-52.0); Hemoglobin 8.6 g/dl (14.0-18.0); Mean Corpuscular Hemoglobin 30.5 pg (25.0-34.0); Mean Corpuscular Hgb Conc 31.2 g/dL (32.0-36.0); Mean Corpuscular Volume 97.9 fL (80.0-100.0); Mean Platelet Volume 10.6 fL (9.4-12.4); Platelet Count 222 K/uL (130-400); RDW Coefficient of Variation 16.1 % (11.5-14.5); RDW Standard Deviation 58.1 fL (36.4-46.3); Red Blood Count 2.82 M/uL (4.70-6.10); White Blood Count 7.75 K/ul (4.8-10.8)
[2024-03-30] MEDS: ERTAPENEM 1000MG 1,000 MG/10 ML SYR IV SCH (16:29)
[2024-03-30 16:32] LABS: INR 1.6 (0.9-1.1); Prothrombin Time 16.2 Seconds (9.0-12.0)
[2024-03-30 17:23] LABS: Adenovirus PCR Not Detected (NotDetected); Bordetella parapertussis PCR Not Detected (NotDetected); Bordetella pertussis PCR Not Detected (NotDetected); Chlamydia pneumoniae PCR Not Detected (NotDetected); Coronavirus 229E PCR Not Detected (NotDetected); Coronavirus CoV-2 (COVID19)PCR Not Detected (NotDetected); Coronavirus HKU1 PCR Not Detected (NotDetected); Coronavirus NL63 PCR Not Detected (NotDetected); Coronavirus OC43PCR Not Detected (NotDetected); Human Metapneumovirus PCR Not Detected (NotDetected); Influenza A PCR Not Detected (NotDetected); Influenza B PCR Not Detected (NotDetected); Mycoplasma pneumoniae PCR Not Detected (NotDetected); Parainfluenza Virus 1 PCR Not Detected (NotDetected); Parainfluenza Virus 2 PCR Not Detected (NotDetected); Parainfluenza Virus 3 PCR Not Detected (NotDetected); Parainfluenza Virus 4 PCR Not Detected (NotDetected); Respiratory Syncytial VirusPCR Not Detected (NotDetected); Rhinovirus/Enterovirus PCR Not Detected (NotDetected)
[2024-03-30] MEDS: HYDROCODONE/ACETAMOPHEN 5/325MG TAB PO PRN (20:39)
[2024-03-30] MEDS: ACETAMINOPHEN 325 MG TAB PO PRN (20:40)
[2024-03-31 06:59] LABS: Basophils # (auto) 0.04 K/uL (0.00-0.20); Basophils % (auto) 0.7 %; Eosinophils # (auto) 0.68 K/uL (0.00-0.50); Eosinophils % (auto) 11.3 %; Hematocrit (blood only) 28.1 % (42.0-52.0); Hemoglobin 8.7 g/dl (14.0-18.0); Immature Granulocytes # (auto) 0.02 K/uL (0.01-0.20); Immature Granulocytes % (auto) 0.3 %; Lymphocytes # (auto) 0.98 K/uL (1.20-3.40); Lymphocytes % (auto) 16.3 %; Mean Corpuscular Hemoglobin 30.1 pg (25.0-34.0); Mean Corpuscular Volume 97.2 fL (80.0-100.0); Mean Platelet Volume 10.7 fL (9.4-12.4); Monocytes # (auto) 0.69 K/uL (0.11-0.59); Monocytes % (auto) 11.5 %; Neutrophils # (auto) 3.59 K/uL (1.40-6.50); Neutrophils % (auto) 59.9 %; Platelet Count 211 K/uL (130-400); RDW Coefficient of Variation 16.1 % (11.5-14.5); RDW Standard Deviation 57.5 fL (36.4-46.3); Red Blood Count 2.89 M/uL (4.70-6.10)
[2024-03-31 07:13] LABS: BUN Creatinine Ratio 18.7 (10-20); Calcium 7.9 mg/dl (8.6-10.3); Creatinine Clr Calc Pharmacy 54.3 ml/min; Magnesium 1.6 mg/dl (1.7-2.4); Potassium 3.7 mmol/L (3.5-5.1)
[2024-03-31 07:26] LABS: INR 1.4 (0.9-1.1); Prothrombin Time 14.3 Seconds (9.0-12.0)
[2024-03-31 09:13] LABS: A calco-baum cmplx NotReported Not Detected (NotDetected); Bact fragilis Not Reported Not Detected (NotDetected); Blood Culture Id Panel See PCR Comment (NotDetected); C auris Not Reported Not Detected (NotDetected); Calbicans Not Reported Not Detected (NotDetected); Candida glabrata Not Reported Not Detected (NotDetected); Candida krusei Not Reported Not Detected (NotDetected); Cneoformans/gatti Not Reported Not Detected (NotDetected); Cparapsilosis Not Reported Not Detected (NotDetected); E cloacae compx Not Reported Not Detected (NotDetected); Efaecalis Not Reported Not Detected (NotDetected); Efaecium Not Reported DETECTED (NotDetected); Enterobacterales Not Reported Not Detected (NotDetected); Escherichia coli Not Reported Not Detected (NotDetected); H influenzae Not Reported Not Detected (NotDetected); K aerogenes Not Reported Not Detected (NotDetected); Koxytoca Not Reported Not Detected (NotDetected); Kpneumoniae grp Not Reported Not Detected (NotDetected); Lmonocyt Not Reported Not Detected (NotDetected); N meningitidis Not Reported Not Detected (NotDetected); P aeruginosa Not Reported Not Detected (NotDetected); Proteus spp Not Reported Not Detected (NotDetected); Salmonella spp Not Reported Not Detected (NotDetected); Staph lugdunensis Not Reported Not Detected (NotDetected); Staph spp. Not Reported Not Detected (NotDetected); Staphaureus Not Reported Not Detected (NotDetected); Staphepi Not Reported Not Detected (NotDetected); Stenmaltophilia Not Reported Not Detected (NotDetected); Strep agal(GrpB) Not Reported Not Detected (NotDetected); Strep pneum Not Reported Not Detected (NotDetected); Strep pyog (GrpA) Not Reported Not Detected (NotDetected); Strep spp Not Reported Not Detected (NotDetected)
[2024-03-31] MEDS: THIAMINE HCL 100 MG TAB PO SCH (09:31)
[2024-03-31 09:54] LABS: Enterococcus faecium DETECTED (NotDetected); VanAB Resistant Gene VRE DETECTED (NotDetected)
[2024-03-31] MEDS ORDERED: DAPTOmycin 725 MG in SYRINGE 0 ML IV SCH (11:00)
[2024-03-31] MEDS: DAPTOmycin 900 MG in SYRINGE 0 ML IV SCH (11:27)
--- NOTE | 2024-03-31 11:30 | Orthopedic Consultation ---
Date of Consultation March 31, 2024 Assessment & Plan (1) Infection of prosthetic right knee joint: The patient was educated regarding today's findings. Conservative care measures were discussed. He was seen in conjunction with Dr. Robb, who also evaluated the patient and concurred with today's diagnosis and treatment plan. His respiratory panel has VRE detected. Blood cultures have not finalized yet. Possibility of his knee being the source of infection was discussed with he and his daughter. Aspiration of the knee was recommended. He is in agreement. Informed written consent was obtained from the patient with me as a witness. The patient's knee was aspirated by Dr. Robb. The knee was prepped with Betadine and a superior lateral pouch approach was used. An 18-gauge needle was used to penetrate the synovium. Free flow was obtained. 20 mL of clear bloody fluid was aspirated from the knee and sent for cell count with differentiation, anaerobic culture, aerobic culture, and fungal culture. No crystals are needed. The patient tolerated the procedure fairly well. Hemostasis was achieved with a Band-Aid. His sutures were also removed today. The wound has healed nicely. He may shower and get the wound wet starting tomorrow. We will continue to follow w weroe he is admitted. He may require further intervention which would be best addressed at a larger medical institution such as [facility], that has more resources. I attest I was present for the entire evaluation and performed evaluation as well as the physical obtaining of the consent and performance of the procedure for aspiration of his right knee. I also removed the sutures which required an 11 blade scalpel as well as hemostat. There was no immediate dehiscence of the wound wound look quite good. His leg was cleansed and appropriately dressed with Adaptic Curlex and Amish bandage. I have personally contacted Dr. Manjit Kern at [place] who is aware of the issues at this point in time. Presently looks like things are quite good in the sense of him being stable and I do not see any need for immediate knee surgery or immediate transfer. Await final culture results. It Should be mentioned that the fluid that was removed from his knee was blood-tinged and very thin synovial fluid it did not appear purulent or ominous by any gross clinical appearance. Procedure note: Verbal and written consent obtained skin prepped with H2O2 and betadine site identified with a verbal confirmation by patient/daughter and myself and aspirated in the lateral suprapatellar pouch for 25cc of blood tinged fluid . No issues . History of Present Illness Reason for Consultation: Right knee retained sutures after irrigation and debridement of total knee prosthesis x 2 Attending Physician: Danny Kim MD History of Present Illness This 78-year-old male with a history of ambulatory dysfunction, acute kidney injury, anemia, hypotension, cellulitis, peripheral neuropathy, atrial fibrillation, history of MRSA infection, rheumatoid arthritis, hypomagnesemia, sepsis, non-ST elevated CA, CHF, lumbar stenosis, anxiety, depression, hypertension, CAD, chronic low back pain, and recent COVID infection, is seen today for evaluation of his right knee. His daughter is at bedside. The patient has a history of right total knee arthroplasty November 04, 2022 and subsequent irrigation and debridement for Enterococcus infection and June 2023. He had additional irrigation and debrid[place] [facility] [place] February 19 and February 22. Poly exchange was done as well on February 22. Upon discharge from the hospital, the patient was sent to [facility] here locally. He was discharged from there a few days ago and is now at independent living at [facility]. He has not returned to the orthopedic clinic since being discharged from the hospital. He still has his sutures and 4-1/2 weeks postop. Yesterday the patient was transferring from his wheelchair to bed. He fell and landed on the floor. He laid there for approximately 11 hours until he was found by the staff. He was brought to the ED for further evaluation. He was found to be septic and unable to care for himself and was admitted. Allergies Allergy/AdvReac Type Severity Reaction Status Date / Time cat dander Allergy Severe CAT Verified 03/25/24 09:58 HAIR---Swelling of Lip/Tongue/Throat Home Medications Medication Instructions Recorded Confirmed Type aspirin 81 mg tablet,delayed 81 mg PO QAM 08/07/22 03/29/24 History release (Adult Low Dose Aspirin) lactobacillus combination no.9 4 6,000 mmu cells PO QAM use with 08/07/22 03/29/24 History billion cell capsule (Adult 50 antibiotics Plus Probiotic) yyzaxcqh-fkqaxvh-jdcs-lutein tablet 1 tab PO QAM 08/07/22 03/29/24 History cyanocobalamin (vitamin B-12) 500 1,000 mcg (2 x 500 mcg) PO QAM #30 01/18/23 03/29/24 Rx mcg tablet tabs thiamine HCl (vitamin B1) 100 mg 100 mg PO QAM 02/05/23 03/29/24 History tablet gabapentin 400 mg capsule 400 mg PO TID 30 days #90 caps 09/03/23 03/29/24 Rx olmesartan 5 mg tablet 5 mg PO DAILY 90 days #90 tabs 09/03/23 03/29/24 Rx upadacitinib 15 mg tablet,extended 15 mg PO DAILY 09/23/23 03/29/24 History release 24 hr (Rinvoq) metoprolol tartrate 25 mg tablet 12.5 mg (1/2 x 25 mg) PO BID 30 09/24/23 03/29/24 Rx days #30 tabs duloxetine 60 mg capsule,delayed 60 mg PO QAM #90 caps 10/29/23 03/29/24 Rx release ranolazine 500 mg tablet,extended 500 mg PO BID 11/06/23 03/29/24 History release,12 hr rivaroxaban 20 mg tablet (Xarelto) 20 mg PO DAILY 11/19/23 03/29/24 History sennosides 8.6 mg tablet 8.6 mg PO HS 12/15/23 03/29/24 History cholecalciferol (vitamin D3) 10 20 mcg PO DAILY 01/21/24 03/29/24 History mcg (400 unit) tablet esomeprazole magnesium 40 mg 40 mg PO HS 01/21/24 03/29/24 History capsule,delayed release (Nexium) mirtazapine 30 mg tablet 30 mg PO HS 01/21/24 03/29/24 History nitroglycerin 0.4 mg sublingual 0.4 mg sublingual DIRECTED PRN 01/21/24 03/29/24 History tablet chest pin pravastatin 40 mg tablet 40 mg PO HS 01/21/24 03/29/24 History vitamin E 268 mg (400 unit) capsule 268 mg PO DAILY ##0 01/21/24 03/29/24 History acetaminophen 325 mg tablet 975 mg PO Q8H PRN mild pain,fever, 01/26/24 03/29/24 History or headache omega 9-sgf-fvt-fish oil 900 1 cap PO DAILY 02/01/24 03/29/24 History mg-1,400 mg capsule,delayed release clotrimazole 10 mg bella 10 mg PO DIRECTED 02/19/24 03/29/24 History bumetanide 1 mg tablet 1 mg PO DAILY 03/29/24 03/29/24 History codeine 10 mg-guaifenesin 100 mg/5 10 ml PO Q4H PRN Cough 03/29/24 03/29/24 History mL oral liquid doxycycline hyclate 100 mg capsule 100 mg PO BID 03/29/24 03/29/24 History ferrous sulfate 325 mg (65 mg 325 mg PO DAILY 03/29/24 03/29/24 History iron) tablet hydrocodone 5 mg-acetaminophen 325 1 tab PO Q4H PRN Pain (Scale Score 03/29/24 1 History mg tablet 4-6) isosorbide mononitrate 60 mg 60 mg PO QAM 03/29/24 03/29/24 History tablet,extended release 24 hr latanoprost 0.005 % eye drops 1 drp ophthalmic (eye) QPM 03/29/24 03/29/24 History melatonin 5 mg tablet 5 mg PO HS 03/29/24 03/29/24 History nystatin 100,000 unit/gram topical 1 applic topical DAILY 03/29/24 03/29/24 History powder tamsulosin 0.4 mg capsule 0.4 mg PO DAILY 03/29/24 03/29/24 History vitamin B comp and C no.3 15 mg-10 1 cap PO DAILY 03/29/24 03/29/24 History mg-50 mg-5 mg-300 mg capsule (B Complex Plus Vitamin C) Patient History Medical History UTI (urinary tract infection) Severe sepsis Venous ulcer of right leg Venous stasis ulcers of both lower extremities Idiopathic polyneuropathy History of immunosuppressive therapy Heart failure with preserved ejection fraction GERD (gastroesophageal reflux disease) Sepsis Septicemia due to Streptococcus pneumoniae Respiratory failure with hypoxia Hypomagnesemia Pneumonia Benign essential hypertension Lumbar stenosis Hx of staphylococcal infection 03/2022, w/"bacterial infection" at the same, in the rt. knee, occurrred during atrial fibrillation episode. "when he woke up, he couldn't walk." Atrial fibrillation episode occurred in 03/2022, taken to [facility] in [place], admitted to ICU for 1-2 weeks (was not intubated, but wasn't "awake either"), then to cardiac unit, then to rehab at [facility]; f/u dr. guerra in [place]>will be starting to see a cell installer at [facility] 2nd week of 08/2022 Myocardial Infarction "a silent one, 2019" Sleep apnea no device Surgical History Hx of Achilles tendon repair rt. Hx of knee surgery rt. patellar tendon repair Hx of rotator cuff surgery bilateral Hx of total knee replacement lt. Hx of total hip arthroplasty rt. History of colostomy reversal History of bowel resection for diverticulitis; w/colostomy placement for 3-4 months Hx of hernia repair near former colostomy site History of esophagogastroduodenoscopy (EGD) Hx of colonoscopy Last Colonoscopy 08/14/22, repeat 3 years in 2025 Hx of bilateral cataract extraction History of heart artery stent ~3 years ago, x2 stents, done in [place]; f/u dr guerra, [place]>will be seeing new cardio at [place] week of August 2022. History of cardiac cath ~3 years ago, SOB and "felt like throat was constricting", had "silent heart attack", x2 stents, done in [place] Family History Grandmother (Maternal) Diabetes Daughter Diabetes Father Suicide Hypertension Denies family history of Ovarian cancer Prostate cancer Myocardial infarction Breast cancer Lung cancer Colorectal cancer Stroke Social History Smoking Status: Never smoker Second Hand Exposure: No; Do You Dip or Chew Tobacco: No; Tobacco Cessation Education Requested by Patient: No Hx Alcohol Use: Yes Alcohol type: wine Alcohol Intake Frequency: 4 or More x per/Week Hx Substance Use: No Preferred Language: Zimbabwean Communication Ability: Effective Visual Impairment: Limited Hearing Ability: Normal Material Control Clerk Required: No Beliefs That Will Affect Care: None marital status: Single Current Living Situation: Other Current Living Situation Comment: Independent living facility current occupational status: retired How many Children do You have: 2 Other Information That Helps Us Care for You: No Feels Safe at Home: Yes Safety Concerns: Feels Safe At This Time Childhood Exposure to Second-Hand Smoke: Yes caffeine: Yes Dental Care, Regularly: Yes Physical Activity Frequency: Does not Exercise Seatbelt Use: always Sunscreen Use: Yes Assistive Devices: Walker and Wheelchair Review of Systems Review of Systems: All systems reviewed & are unremarkable except as noted in Subjective Physical Exam Physical Exam: General: Well-developed, elderly male, in no acute distress. Laying on a bed. Alert and oriented. Conversive. On contact precautions. Skin: Warm and dry with fair turgor. He has extensive scaling of his skin on the lower extremities. Right knee has a healing surgical incision with retained sutures. There is ecchymosis and erythema around the knee. Mild warmth. There is a moderate effusion. No open wounds at this time. Musculoskeletal: The patient has intact motor function of his ankle and toes. There is limited motion to the knee secondary to discomfort. He is currently resting it on some pillows. He is able to logroll the hip. Stable collateral ligaments. Full range of motion of his upper extremities without issue. Neurologic: Gross sensation is intact across the right leg by soft touch. Peripheral pulses are 2+. Results & Data Vital Signs (Past 12 Hours) Vital Signs Temp Pulse Resp BP BP Pulse Ox O2 Del Method 03/31/24 08:00 Nasal Cannula 03/31/24 07:07 36.4 C L 64 16 133/75 100 Nasal Cannula 03/31/24 03:14 36.6 C 64 17 105/62 92 Nasal Cannula O2 Flow Rate 03/31/24 08:00 2 03/31/24 07:07 03/31/24 03:14 2 Laboratory Results CBC obtained today shows a white count of 6.0. H&H of 8.7 and 28.1. Platelets normal at 211,000. PT today is 14.3. INR is 1.4. Normal sodium, potassium, and chloride. Carbon dioxide is mildly elevated at 33. BUN of 26 with creatinine 1.39. Diagnostic Findings Radiographic imaging of the right knee previously obtained was reviewed. He has intact total knee prosthesis without evidence of periprosthetic fracture, osteolysis, or lucency.
[2024-03-31 11:49] LABS: Appearance Synovial Fluid Slightly Hazy; Color Synovial Fluid Red; RBC Synovial Fluid Auto 41000 /uL; Source Synovial Fluid Right Knee; WBC Synovial Fluid Auto 639 /ul (0-200)
--- NOTE | 2024-03-31 16:17 | Hospitalist Progress Note ---
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 Repeat blood cultures for AM 04/01 Infectious disease consulted, source unclear at this time ?PICC (of note, family reports PICC line had to be replaced twice during this 5 week course of antibiotics due to occlusion) - TTE pending Ortho consulted, following - if need surgery will need transfer to [facility] PT/OT - recommending rehab, CM following AM CBC, BMP and Mag (2) JEFFERY (acute kidney injury): Plan: BUN 30, creatinine 1.67 (baseline 1.11.2) on arrival Daughter reports that patient had JEFFERY due to cefepime use at [facility], which was switched to erapenem on 03/18. Cr peaked at 2.5 at [facility] Avoid nephrotoxic agents where possible Hold bumex and ARB NSS 500 mL IV given in the ED Encourage p.o. fluids in the setting of national IVF shortage continuing to improve (3) Anemia: Plan: Acute on Chronic - baseline seems to fluctuate between 10-13 Hgb on admission 10.8 --> 8.8 but has remained stable - xarelto resumed Pt does report black stools, and possible BRBPR - fecal occult ordered, uncollected (4) Hypomagnesemia: Plan: Magnesium 1.4 on arrival - replaced IV and PO Rising to 1.6, continue BID PO supplementation -asymptomatic, no cardiac concerns, defer IV mag in setting of national IV fluids shortage AM Mag (5) Infection of prosthetic right knee joint: Plan: Right knee x-ray on arrival revealed soft tissue swelling and small to moderate right knee joint effusion Continue ertapenem IV daily and doxycyline BID (this is lifelong for hx of MRSA bactermia) Monitor PICC line Plan Chronic stable medical conditions: * afib - continue metoprolol, xarelto Dispo: conitnued inpatient stay DVT proh: [place] Daughter updated at bedside 03/31 Admission and Anticipated Discharge Date Admission Date: March 30, 2024 Subjective Patient seen sititng up in bed. Ortho team present and daughter present at bedside. Besides feeling weak, pt reports feeling well, mild occasional tremors but no fevers or chills or diaphoresis. good appetite. No cough Review of Systems Review of Systems: All systems reviewed & are unremarkable except as noted in Subjective Physical Exam Physical Exam: General: NAD, VS as above Resp: normal respiratory effort, diminished in the bases CV: RRR, no murmur, Abd: normal bowel sounds, non tender, no hepatosplenomegaly Extremities: Moves all extremities, b/l LE consistent with venous stasis. no signs of active infection. sutures removed by ortho today and aspirated and joint wrapped. Neuro: A&O x3, Results & Data Results & Data Vital Signs (Past 12 Hours) Vital Signs Temp Pulse Resp BP Pulse Ox O2 Del Method O2 Flow Rate 03/31/24 14:57 98.8 F 78 20 115/76 97 Nasal Cannula 2.0 03/31/24 11:15 98.8 F 76 18 134/80 97 Room Air 03/31/24 08:00 Nasal Cannula 2 03/31/24 07:07 97.5 F L 64 16 133/75 100 Nasal Cannula PG Care Time/CCT Total # of Minutes Spent Total Time Spent with Patient: Total time spent is greater than 50% in coordination of care (as documented) at patient's floor/unit and/or counseling patient: Coding Level of Care Code 89054 SUB INP/OBS CARE 3/50MIN Diagnoses Ambulatory dysfunction R26.2 JEFFERY (acute kidney injury) N17.9 Anemia D64.9 Anemia type: unspecified type Hypomagnesemia E83.42 Infection of prosthetic right knee joint T84.53XA (3) Anemia Anemia type: unspecified type Qualified Code(s): D64.9 - Anemia, unspecified
[2024-03-31] MEDS: RIVAROXABAN 20 MG TAB PO SCH (16:38)
--- NOTE | 2024-03-31 17:14 | Infectious Disease Consult ---
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 On admission he was afebrile, vss. Initial labs with WBC wnl, Cr 1.67, AST/ALT wnl. Troponin elevated. PCT 0.03. UA negative. CXR with mild bibasilar atelectasis. Knee XR with right knee soft tissue swelling and suspected small- moderate right knee joint effusion, similar to prior. He was admitted for fall and JEFFERY. Course c/b hypotension and hypoxia after working with PT on 03/30. RPP negative. BCX sent which returned positive for GPC (VRE faecium by PCR). S/p right knee aspiration on 03/31 showed clearly bloody fluid (WBC 639). He was started on daptomycin and ID consulted 03/31. Agree with daptomycin for VRE bacteremia. Knee aspirate has low WBC, which doesnt seem consistent with acute infection. Would consider PICC as another source and I would favor removing this, especially if no other source can be found. It seems he has needed this changed a twice in the past few weeks due to occlusion. Agree with TTE. Would check for other sites of possible infection (ie spinal tenderness, other joint swelling/pain, abdominal pain). # GPC bacteremia PCR with VRE # Right knee PJI 2/2 E cloacae on ertapenem # H/o MRSA PJI on doxy suppression # PICC in place # JEFFERY improving - TTE - favor removing PICC - please assess for other sites of infection (spinal tenderness, other joint swelling/pain, rashes, abdominal pain) - will repeat BCX in 48hrs due to BCx bottle shortage - f/u all cx - continue daptomycin 900mg (10mg/kg) IV q24h (CrCl 54, CK 145, BMI 32, AdjBW 90kg, IBW 77kg) - continue ertapenem 1g IV daily - Laine stopped doxycycline for now as he is on daptomycin itll need to be resumed once hes completed treatment for current bacteremia - no statins while on daptomycin - will see patient with telepresenter tomorrow ID will continue to follow. If questions or concerns, contact via [employer] or Infectious Disease Call Center . Carmen Joy MD [facility], Division of Infectious Diseases IDConnect: [phone] Consultation Information This patient recommendation is based on a telemedicine consult request which was completed asynchronously through chart review and information provided by the primary physician. The patient was not seen or examined today. The evaluation is consultative in nature and all patient care and treatment decisions can either be accepted or rejected by the patient's primary hospital-based treating physician using their own independent medical judgment for their patient. Casing Grader contact information: Please call ID Connect Call Center . 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 He was on the ground for almost 10 hours when home health found him. He reported increased urinary frequency, increased cold intolerance, and leg swelling. On admission he was afebrile, vss. Initial labs with WBC wnl, Cr 1.67, AST/ALT wnl. Troponin elevated. PCT 0.03. UA negative. CXR with mild bibasilar atelectasis. Knee XR with right knee soft tissue swelling and suspected small- moderate right knee joint effusion, similar to prior. He was admitted for fall and JEFFERY. Course c/b hypotension and hypoxia after working with PT on 03/30. RPP negative. BCX sent which returned positive for GPC (VRE faecium by PCR). S/p right knee aspiration on 03/31 showed clearly bloody fluid (WBC 639). He was started on daptomycin and ID consulted 03/31. No telepresenter available at this time. Allergies Allergy/AdvReac Type Severity Reaction Status Date / Time cat dander Allergy Severe CAT Verified 03/25/24 09:58 HAIR---Swelling of Lip/Tongue/Throat Home Medications Medication Instructions Recorded Confirmed Type aspirin 81 mg tablet,delayed 81 mg PO QAM 08/07/22 03/29/24 History release (Adult Low Dose Aspirin) lactobacillus combination no.9 4 6,000 mmu cells PO QAM use with 08/07/22 03/29/24 History billion cell capsule (Adult 50 antibiotics Plus Probiotic) pikyxjbl-iayyqog-kafw-lutein tablet 1 tab PO QAM 08/07/22 03/29/24 History cyanocobalamin (vitamin B-12) 500 1,000 mcg (2 x 500 mcg) PO QAM #30 01/18/23 03/29/24 Rx mcg tablet tabs thiamine HCl (vitamin B1) 100 mg 100 mg PO QAM 02/05/23 03/29/24 History tablet gabapentin 400 mg capsule 400 mg PO TID 30 days #90 caps 09/03/23 03/29/24 Rx olmesartan 5 mg tablet 5 mg PO DAILY 90 days #90 tabs 09/03/23 03/29/24 Rx upadacitinib 15 mg tablet,extended 15 mg PO DAILY 09/23/23 03/29/24 History release 24 hr (Rinvoq) metoprolol tartrate 25 mg tablet 12.5 mg (1/2 x 25 mg) PO BID 30 09/24/23 03/29/24 Rx days #30 tabs duloxetine 60 mg capsule,delayed 60 mg PO QAM #90 caps 10/29/23 03/29/24 Rx release ranolazine 500 mg tablet,extended 500 mg PO BID 11/06/23 03/29/24 History release,12 hr rivaroxaban 20 mg tablet (Xarelto) 20 mg PO DAILY 11/19/23 03/29/24 History sennosides 8.6 mg tablet 8.6 mg PO HS 12/15/23 03/29/24 History cholecalciferol (vitamin D3) 10 20 mcg PO DAILY 01/21/24 03/29/24 History mcg (400 unit) tablet esomeprazole magnesium 40 mg 40 mg PO HS 01/21/24 03/29/24 History capsule,delayed release (Nexium) mirtazapine 30 mg tablet 30 mg PO HS 01/21/24 03/29/24 History nitroglycerin 0.4 mg sublingual 0.4 mg sublingual DIRECTED PRN 01/21/24 03/29/24 History tablet chest pin pravastatin 40 mg tablet 40 mg PO HS 01/21/24 03/29/24 History vitamin E 268 mg (400 unit) capsule 268 mg PO DAILY ##0 01/21/24 03/29/24 History acetaminophen 325 mg tablet 975 mg PO Q8H PRN mild pain,fever, 01/26/24 03/29/24 History or headache omega 7-fca-hqc-fish oil 900 1 cap PO DAILY 02/01/24 03/29/24 History mg-1,400 mg capsule,delayed release clotrimazole 10 mg bella 10 mg PO DIRECTED 02/19/24 03/29/24 History bumetanide 1 mg tablet 1 mg PO DAILY 03/29/24 03/29/24 History codeine 10 mg-guaifenesin 100 mg/5 10 ml PO Q4H PRN Cough 03/29/24 03/29/24 History mL oral liquid doxycycline hyclate 100 mg capsule 100 mg PO BID 03/29/24 03/29/24 History ferrous sulfate 325 mg (65 mg 325 mg PO DAILY 03/29/24 03/29/24 History iron) tablet hydrocodone 5 mg-acetaminophen 325 1 tab PO Q4H PRN Pain (Scale Score 03/29/24 03/29/24 History mg tablet 4-6) isosorbide mononitrate 60 mg 60 mg PO QAM 03/29/24 03/29/24 History tablet,extended release 24 hr latanoprost 0.005 % eye drops 1 drp ophthalmic (eye) QPM 03/29/24 03/29/24 History melatonin 5 mg tablet 5 mg PO HS 03/29/24 03/29/24 History nystatin 100,000 unit/gram topical 1 applic topical DAILY 03/29/24 03/29/24 History powder tamsulosin 0.4 mg capsule 0.4 mg PO DAILY 03/29/24 03/29/24 History vitamin B comp and C no.3 15 mg-10 1 cap PO DAILY 03/29/24 03/29/24 History mg-50 mg-5 mg-300 mg capsule (B Complex Plus Vitamin C) Patient History Medical History UTI (urinary tract infection) Severe sepsis Venous ulcer of right leg Venous stasis ulcers of both lower extremities Idiopathic polyneuropathy History of immunosuppressive therapy Heart failure with preserved ejection fraction GERD (gastroesophageal reflux disease) Sepsis Septicemia due to Streptococcus pneumoniae Respiratory failure with hypoxia Hypomagnesemia Pneumonia Benign essential hypertension Lumbar stenosis Hx of staphylococcal infection 03/2022, w/"bacterial infection" at the same, in the rt. knee, occurrred during atrial fibrillation episode. "when he woke up, he couldn't walk." Atrial fibrillation episode occurred in 03/2022, taken to [facility] in [place], admitted to ICU for 1-2 weeks (was not intubated, but wasn't "awake either"), then to cardiac unit, then to rehab at Located within [facility]; f/u dr. guerra in [place]>will be starting to see a consultant technology at [facility] 2nd week of 08/2022 Myocardial Infarction "a silent one, 2019" Sleep apnea no device Surgical History Hx of Achilles tendon repair rt. Hx of knee surgery rt. patellar tendon repair Hx of rotator cuff surgery bilateral Hx of total knee replacement lt. Hx of total hip arthroplasty rt. History of colostomy reversal History of bowel resection for diverticulitis; w/colostomy placement for 3-4 months Hx of hernia repair near former colostomy site History of esophagogastroduodenoscopy (EGD) Hx of colonoscopy Last Colonoscopy 08/14/22, repeat 3 years in 2025 Hx of bilateral cataract extraction History of heart artery stent ~3 years ago, x2 stents, done in [place]; f/u dr guerra, [place]>will be seeing new cardio at [place] week of August 2022. History of cardiac cath ~3 years ago, SOB and "felt like throat was constricting", had "silent heart attack", x2 stents, done in [place] Family History Grandmother (Maternal) Diabetes Daughter Diabetes Father Suicide Hypertension Denies family history of Ovarian cancer Prostate cancer Myocardial infarction Breast cancer Lung cancer Colorectal cancer Stroke Social History Smoking Status: Never smoker Second Hand Exposure: No; Do You Dip or Chew Tobacco: No; Tobacco Cessation Education Requested by Patient: No Hx Alcohol Use: Yes Alcohol type: wine Alcohol Intake Frequency: 4 or More x per/Week Hx Substance Use: No Preferred Language: Cuban Communication Ability: Effective Visual Impairment: Limited Hearing Ability: Normal Regional Ehs Manager Required: No Beliefs That Will Affect Care: None marital status: Single Current Living Situation: Other Current Living Situation Comment: Independent living facility current occupational status: retired How many Children do You have: 2 Other Information That Helps Us Care for You: No Feels Safe at Home: Yes Safety Concerns: Feels Safe At This Time Childhood Exposure to Second-Hand Smoke: Yes caffeine: Yes Dental Care, Regularly: Yes Physical Activity Frequency: Does not Exercise Seatbelt Use: always Sunscreen Use: Yes Assistive Devices: Walker and Wheelchair Results & Data Vital Signs (Past 12 Hours) Vital Signs Temp Pulse Resp BP Pulse Ox O2 Del Method O2 Flow Rate 03/31/24 14:57 37.1 C 78 20 115/76 97 Nasal Cannula 2.0 03/31/24 11:15 37.1 C 76 18 134/80 97 Room Air 03/31/24 08:00 Nasal Cannula 2 03/31/24 07:07 36.4 C L 64 16 133/75 100 Nasal Cannula Laboratory Results Labs reviewed. Diagnostic Findings Imaging reviewed.
[2024-03-31] MEDS: guaiFENesin 600 MG TABCR PO PRN (17:49)
--- NOTE | 2024-03-31 18:00 | Orthopedic Progress Note ---
Date of Service March 31, 2024 Assessment & Plan Admission and Anticipated Discharge Date Admission Date: March 30, 2024 Orthopedic Progress Note Patient remains comfortable and afebrile with his knee. Of note is that the Gram stain did not reveal any gram-positive cocci or any other organisms. There was very rare white blood cell. Of note the cell count of the synovial fluid only revealed 639 white blood cells with 75% of the being mononuclear. At this point in time source of his positive blood culture remains unclear and would continue to look for other sources such as other skin areas and/or bowel sources. Was discussed in detail with the patient over the phone.
[2024-03-31] MEDS: HYDROmorphone INJ 0.5 MG/0.5 ML SYR IV STA (23:57)
--- NOTE | 2024-04-01 05:58 | Electrocardiogram Report ---
Test Reason : Blood Pressure : */* mmHG Vent. Rate : 86 BPM Atrial Rate : 86 BPM P-R Int : 174 ms QRS Dur : 116 ms QT Int : 410 ms P-R-T Axes : 35 -33 28 degrees QTcB Int : 490 ms Sinus rhythm with frequent Premature ventricular complexes Left axis deviation Abnormal ECG When compared with ECG of 19-Feb-2024 11:17, No significant change was found Confirmed by Azam Horne ([id number]) on 04/01/2024 5:58:25 AM Referred By: Confirmed By: Azam Horne
[2024-04-01 06:34] LABS: Basophils # (auto) 0.04 K/uL (0.00-0.20); Basophils % (auto) 0.6 %; Eosinophils # (auto) 0.59 K/uL (0.00-0.50); Eosinophils % (auto) 8.7 %; Hematocrit (blood only) 28.5 % (42.0-52.0); Hemoglobin 9.3 g/dl (14.0-18.0); Immature Granulocytes # (auto) 0.02 K/uL (0.01-0.20); Immature Granulocytes % (auto) 0.3 %; Lymphocytes # (auto) 1.01 K/uL (1.20-3.40); Lymphocytes % (auto) 14.9 %; Mean Corpuscular Hemoglobin 31.1 pg (25.0-34.0); Mean Corpuscular Hgb Conc 32.6 g/dL (32.0-36.0); Mean Corpuscular Volume 95.3 fL (80.0-100.0); Mean Platelet Volume 10.2 fL (9.4-12.4); Monocytes # (auto) 0.76 K/uL (0.11-0.59); Monocytes % (auto) 11.2 %; Neutrophils # (auto) 4.36 K/uL (1.40-6.50); Neutrophils % (auto) 64.3 %; Platelet Count 197 K/uL (130-400); RDW Coefficient of Variation 15.9 % (11.5-14.5); Red Blood Count 2.99 M/uL (4.70-6.10); White Blood Count 6.78 K/ul (4.8-10.8)
[2024-04-01 07:05] LABS: BUN Creatinine Ratio 18.8 (10-20); Calcium 8.3 mg/dl (8.6-10.3); Creatinine Clr Calc Pharmacy 56.7 ml/min; Magnesium 1.5 mg/dl (1.7-2.4); Potassium 3.9 mmol/L (3.5-5.1)
--- NOTE | 2024-04-01 07:57 | Orthopedic Progress Note ---
Date of Service April 01, 2024 Assessment & Plan Admission and Anticipated Discharge Date Admission Date: March 30, 2024 Orthopedic Progress Note Follow-up from yesterday. Patient is tired and sleepy but is arousable and is oriented. He denies any pain in his knee. He denies chest pain shortness of breath fever chills nausea vomiting headache. Vital signs are stable he is afebrile. Neurovascular check femoral sciatic nerve both legs normal. No obvious calf tenderness. Wound dressing clean dry and intact. Labs from yesterday did not reveal anything of major concern. Await culture results. Continue management. May Dr. Kern aware. At this point in time there is nothing further to do from a surgical perspective except observe. As I will be out of town. I will sign off. If other orthopedic issues arise please contact lens blocker covering for [facility] orthopedics via the call schedule.
--- NOTE | 2024-04-01 08:34 | Infectious Disease Progress Nt ---
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 On admission he was afebrile, vss. Initial labs with WBC wnl, Cr 1.67, AST/ALT wnl. Troponin elevated. PCT 0.03. UA negative. CXR with mild bibasilar atelectasis. Knee XR with right knee soft tissue swelling and suspected small-moderate right knee joint effusion, similar to prior. He was admitted for fall and JEFFERY. Course c/b hypotension and hypoxia after working with PT on 03/30. RPP negative. BCX sent which returned positive for GPC (VRE faecium by PCR). S/p right knee aspiration on 03/31 showed clearly bloody fluid (WBC 639). He was started on daptomycin and ID consulted 03/31. No other clear source identified on examination. He has some baseline lower back pain related to spinal stenosis, but nontender on examination. He also states he has hardware in both shoulders and right hip in addition to knee, but no issues at these sites either (no pain or swelling). No known cardiac devices. PICC was last changed on 03/25. Since no clear source, would favor PICC removal. Can be replaced once BCx have cleared. If he develops ongoing bacteremia, or if he has worsening back pain or new spinal tenderness, would pursue MRI of L spine. # Bacteremia 2/2 E faecium PCR with VRE # Right knee PJI 2/2 E cloacae on ertapenem # H/o MRSA PJI on doxy suppression # PICC in place # JEFFERY improving # h/o RA on rinvoq - TTE - please remove PICC - f/u BCX repeat already ordered from today - continue daptomycin 900mg (10mg/kg) IV q24h (CrCl 56, CK 145, BMI 32, AdjBW 90kg) - continue ertapenem 1g IV daily - doxycycline held for now as he is on daptomycin itll need to be resumed once hes completed treatment for current bacteremia - no statins while on daptomycin - if worsening back pain, new spinal tenderness, or ongoing bacteremia would pursue MRI L spine ID will continue to follow. If questions or concerns over the weekend, please contact Infectious Disease Call Center . Carmen Joy MD [facility], Division of Infectious Diseases IDConnect: [phone] Admission and Anticipated Discharge Date Admission Date: March 30, 2024 Subjective Subsequent visit was provided via telemedicine using two-way real-time interactive telecommunication between the patient and the telemedicine provider. For the duration of the visit, the provider was performing the assessment from a different facility than the patient. This includesuse of bluetooth stethoscope forauscultationperformed by the telepresenter that the telemedicine provider can hear if described in the physical exam. Meal Room Hand contact information: Please call ID Connect Call Center . (Phone Number For Physician Use Only) After establishing a telemedicine visit, patient was: Patient was verified with two unique identifiers, Patient/authorized rep acknowledged consent and understanding and Gave permission to continue telehealth session Time Spent with Patient: Subsequent => 55 min Patient without complaints aside from fatigue. He says that his knees feel ok, no worse from baseline. He also has baseline lower back from from spinal stenosis, but this is not currently worse. No other joint pains or swelling. No abdominal pain, vomiting or diarrhea. No new rashes. No issues with PICC line. Physical Exam Physical Exam: General: Awake, alert, no acute distress HEENT: NC/AT, EOMI, mmm Neck: supple Lungs: respirations non-labored Heart: nl peripheral perfusion Abdomen: soft, NT/ND Back: no spinal tenderness Ext: no LE edema, left knee with superficial wound, right knee with dressing postarthrocentesis Results & Data Vital Signs (Past 12 Hours) Vital Signs Temp Pulse Pulse Resp BP Pulse Ox O2 Del Method 04/01/24 07:33 36.3 C L 65 18 164/87 H 91 Room Air 04/01/24 02:46 36.6 C 89 16 160/92 H 93 Nasal Cannula 03/31/24 23:07 37.2 C 83 17 116/67 92 Nasal Cannula 03/31/24 21:50 96 H O2 Flow Rate 04/01/24 07:33 04/01/24 02:46 2 03/31/24 23:07 2 03/31/24 21:50 Laboratory Results Labs reviewed.
[2024-04-01] MEDS: MAGNESIUM SULFATE / D5W 1 GM/100 ML BAG IV ONE (08:35)
--- NOTE | 2024-04-01 14:24 | Hospitalist Progress Note ---
Date of Service April 01, 2024 Assessment & Plan (1) Ambulatory dysfunction: Plan: Patient recently d/c from [facility] to independent living at [facility] - reportedly fell while transferring from wheelchair to bed and was on the ground for approximately 12 hours CK level WNL on arrival Biofire WNL Currently recieving IV abx (Ertapenem) due to knee infection (enterobacter cloacae)- due to continue through 04/06 PO doxycyline BID (life long for hx of MRSA bactermia) 03/30 - Hypotensive and hypoxic after working with PT --> transfer to PCU Blood cultures: Enterococcus Faecium Repeat blood cultures 04/01: pending Knee fluid cultures: no growth to date Infectious disease consulted, source unclear at this time - remove PICC - continue dapto and ertapenem. Doxy held (resume when dapto finished) - if worsening back pain, new spinal tenderness, or ongoing bacteremia would pursue MRI L spine - TTE pending Ortho consulted -s/p aspiration, knee does not seem to be the source PT/OT - recommending rehab, CM following AM CBC, BMP and Mag (2) JEFFERY (acute kidney injury): Plan: BUN 30, creatinine 1.67 (baseline 1.11.2) on arrival Daughter reports that patient had JEFFERY due to cefepime use at [facility], which was switched to erapenem on 03/18. Cr peaked at 2.5 at [facility] Avoid nephrotoxic agents where possible Hold bumex and ARB NSS 500 mL IV given in the ED Encourage p.o. fluids in the setting of national IVF shortage continuing to improve (3) Anemia: Plan: Acute on Chronic - baseline seems to fluctuate between 10-13 Hgb on admission 10.8 --> 8.8 but has remained stable and uptrending - xarelto resumed Pt does report black stools, and possible BRBPR - fecal occult ordered, uncollected (4) Hypomagnesemia: Plan: Magnesium 1.4 on arrival - replaced IV and PO Mag decreased today, will order 1g IV and continue PO BID supplementation AM Mag (5) Infection of prosthetic right knee joint: Plan: Right knee x-ray on arrival revealed soft tissue swelling and small to moderate right knee joint effusion Continue ertapenem IV daily and doxycycline BID (this is lifelong for hx of MRSA bacteremia) PICC line removed 04/01 - will need roving can tender access replaced before discharge Plan Chronic stable medical conditions: * afib - continue metoprolol, xarelto Dispo: conitnued inpatient stay DVT proh: N[place] Daughter updated at bedside 03/31 Son updated by phone 03/31 & 04/01 Admission and Anticipated Discharge Date Admission Date: March 30, 2024 Subjective Patient seen sitting up in the bed, more tired today. States he did get out of bed yesterday. No new pain. Denies back pain. No skin issues. No fevers over night. Good appetite. Met with ID this morning. Tele - SR PVCs 80-90s Review of Systems Review of Systems: All systems reviewed & are unremarkable except as noted in Subjective Physical Exam Physical Exam: General: NAD, VS as above Resp: normal respiratory effort, diminished in the bases, no wheezing CV: RRR, no murmur, Abd: normal bowel sounds, non tender, no hepatosplenomegaly Extremities: Moves all extremities, left LE is wrapped. no signs of Neuro: A&O x3, Skin: no lesions or signs of infection, PICC line in place at time of my exam and no signs of infection Results & Data Results & Data Vital Signs (Past 12 Hours) Vital Signs Temp Pulse Pulse Resp BP Pulse Ox O2 Del Method 04/01/24 10:46 97.9 F 59 L 16 150/74 H 93 Room Air 04/01/24 07:33 97.3 F L 65 18 164/87 H 91 Room Air 04/01/24 07:30 Room Air 04/01/24 06:00 91 H 04/01/24 02:46 97.9 F 89 16 160/92 H 93 Nasal Cannula O2 Flow Rate 04/01/24 10:46 04/01/24 07:33 04/01/24 07:30 04/01/24 06:00 04/01/24 02:46 2 Laboratory Results CBC chemistry Blood culture fluid cultures reviewed PG Care Time/CCT Total # of Minutes Spent Total Time Spent with Patient: Total time spent is greater than 50% in coordination of care (as documented) at patient's floor/unit and/or counseling patient: Coding Level of Care Code 06080 SUB INP/OBS CARE 3/50MIN Diagnoses Ambulatory dysfunction R26.2 JEFFERY (acute kidney injury) N17.9 Anemia D64.9 Anemia type: unspecified type Hypomagnesemia E83.42 Infection of prosthetic right knee joint T84.53XA (3) Anemia Anemia type: unspecified type Qualified Code(s): D64.9 - Anemia, unspecified
--- NOTE | 2024-04-01 20:17 | XCELERA ---
[id number]
[2024-04-02 07:07] LABS: Basophils # (auto) 0.04 K/uL (0.00-0.20); Basophils % (auto) 0.7 %; Eosinophils % (auto) 12.1 %; Hematocrit (blood only) 29.4 % (42.0-52.0); Hemoglobin 9.3 g/dl (14.0-18.0); Immature Granulocytes # (auto) 0.02 K/uL (0.01-0.20); Immature Granulocytes % (auto) 0.3 %; Lymphocytes # (auto) 0.87 K/uL (1.20-3.40); Lymphocytes % (auto) 15.1 %; Mean Corpuscular Hemoglobin 30.7 pg (25.0-34.0); Mean Corpuscular Hgb Conc 31.6 g/dL (32.0-36.0); Mean Platelet Volume 10.4 fL (9.4-12.4); Monocytes % (auto) 12.1 %; Neutrophils # (auto) 3.44 K/uL (1.40-6.50); Neutrophils % (auto) 59.7 %; Platelet Count 203 K/uL (130-400); RDW Standard Deviation 57.1 fL (36.4-46.3); Red Blood Count 3.03 M/uL (4.70-6.10); White Blood Count 5.77 K/ul (4.8-10.8)
[2024-04-02 07:20] LABS: Calcium 8.5 mg/dl (8.6-10.3); Magnesium 1.7 mg/dl (1.7-2.4); Potassium 4.1 mmol/L (3.5-5.1)
--- NOTE | 2024-04-02 11:38 | Hospitalist Progress Note ---
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 Doxy held (resume when dapto finished) - if worsening back pain, new spinal tenderness, or ongoing bacteremia would pursue MRI L spine - TTE no valvular pathology but valves no well visualized - Pt does have Stage 2 pressure injury to coccyx area - no signs of active infection Ortho consulted -s/p aspiration, knee does not seem to be the source PT/OT - recommending rehab, CM following AM CBC, BMP (2) HFrEF (heart failure with reduced ejection fraction): Plan: home regiement: imur, ranexa, Losartan, Metoprolol and bumex - losartan held, bumex resumed 04/02 Echo (done for GP bacteremia) - EF 35-40%, global hypokinesis - prior EF 50-55 Cardiology consulted - switch to Entresto instead of restarting - switch to metoprolol succinated 25mg qAM - consider jardiance 10mg (3) Anemia: Plan: Acute on Chronic - baseline seems to fluctuate between 10-13 Hgb on admission 10.8 --> 8.8 but has remained stable and uptrending - xarelto resumed Pt does report black stools, and possible BRBPR - fecal occult ordered, uncollected (4) JEFFERY (acute kidney injury): Plan: BUN 30, creatinine 1.67 (baseline 1.11.2) on arrival Daughter reports that patient had JEFFERY due to cefepime use at [facility], which was switched to erapenem on 03/18. Cr peaked at 2.5 at [facility] Recieved PO and IV fluids. Bumex resumed 04/02 losartan held JEFFERY resolved (5) Infection of prosthetic right knee joint: Plan: Right knee x-ray on arrival revealed soft tissue swelling and small to moderate right knee joint effusion Continue ertapenem IV daily and doxycycline BID (this is lifelong for hx of MRSA bacteremia) PICC line removed 04/01 - will need intermediate teacher access replaced before discharge Plan Chronic stable medical conditions: * afib - continue metoprolol, xarelto Resolved conditions: * Hypomagesemia - replaced PO and IV, continue on once a day PO Dispo: conitnued inpatient stay DVT proh: N[place] Daughter updated at bedside 03/31 Son updated by phone 03/31 & 04/01 Admission and Anticipated Discharge Date Admission Date: March 30, 2024 Subjective Patient seen lying in bed, feeling about the same today. Cough is worse. no new back pain. does report pain in his coccyx area Review of Systems Review of Systems: All systems reviewed & are unremarkable except as noted in Subjective Physical Exam Physical Exam: General: NAD, VS as above Resp: normal respiratory effort, diminished in the bases with crackles CV: RRR, no murmur, Abd: normal bowel sounds, non tender, no hepatosplenomegaly Extremities: Moves all extremities, left LE is wrapped. 1+ pitting edema Neuro: A&O x3, Skin: stage 2 skin break down coccyx area, no signs of infection Results & Data Results & Data Vital Signs (Past 12 Hours) Vital Signs Temp Pulse Pulse Resp BP Pulse Ox O2 Del Method 04/02/24 11:24 98.2 F 78 18 148/84 H 92 Room Air 04/02/24 08:00 97.9 F 71 18 185/92 H 96 Room Air 04/02/24 07:28 72 04/02/24 03:34 97.9 F 77 20 116/64 92 Room Air Laboratory Results CBC and chemistry reviewed blood cultures and fluids cultures reveiwed PG Care Time/CCT Total # of Minutes Spent Total Time Spent with Patient: Total time spent is greater than 50% in coordination of care (as documented) at patient's floor/unit and/or counseling patient: Coding Level of Care Code 69652 SUB INP/OBS CARE 3/50MIN Diagnoses Ambulatory dysfunction R26.2 HFrEF (heart failure with reduced ejection fraction) I50.20 Anemia D64.9 Anemia type: unspecified type JEFFERY (acute kidney injury) N17.9 Infection of prosthetic right knee joint T84.53XA (3) Anemia Anemia type: unspecified type Qualified Code(s): D64.9 - Anemia, unspecified
--- NOTE | 2024-04-02 11:39 | Cardiology Consultation ---
Date of Consultation April 02, 2024 Assessment & Plan (1) Atrial fibrillation: Plan 1. Cardiomyopathy: He has moderate reduced LV systolic function. Also some right ventricular dysfunction. Global hypokinesis which would suggest a nonischemic etiology. No symptoms recently to suggest an acute coronary syndrome. Despite having a history of coronary disease, I think ischemic heart disease is a less likely etiology for his current dysfunction. Possibly related to his bacteremia and acute illness. He appears to be well compensated overall. I think would be reasonable to switch his metoprolol to tartrate to metoprolol succinate 25 mg daily. Losartan can also be converted to Entresto. We can also consider the addition of Jardiance to his medical regimen. 2. Coronary artery disease: History of percutaneous intervention to the LAD. No current symptoms suggestive of coronary insufficiency or angina. He can continue aggressive secondary prevention with aspirin and Xarelto. Statin medication appears to be on hold with use of daptomycin. Also on an antianginal regimen consisting of isosorbide mononitrate and ranolazine. Unclear if he is having symptoms of that nature especially given his current incapacity. 3. Atrial fibrillation: Paroxysmal. He does not appear to be symptomatic or aware of episodes. Amiodarone appears to have been discontinued which seems reasonable. Will continue systemic anticoagulation with rivaroxaban currently. 4. 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 Not symptomatic. The percentage seems to vary considerably. Unclear if this could have played a role in his cardiomyopathy. Will continue metoprolol and consider increasing the dose if he continues to have frequent PVCs. Not an outflow tract source. 5. Hyperlipidemia: At goal in 2022. Perhaps he is well-controlled with pravastatin. This can be resumed once his antibiotic course is completed. History of Present Illness Reason for Consultation: Abnormal echocardiogram Requesting Physician: Raven Attending Physician: Hermes Knowles MD History of Present Illness The patient is an 78-year-old gentleman with a history of coronary artery disease having previously undergone percutaneous intervention to the LAD remotely. He is also noted to have paroxysmal atrial fibrillation and has a remote history of mildly reduced LV systolic function. He had been treated over the course of this year for a myopathy and systemic infection believed to be related to a right knee prosthesis. [facility] had [facility] and had transition to [facility] independent living. However, the patient became significantly weak and fell on the floor. No acute injury was sustained, but he had difficulty with mobility and was transferred to the hospital for evaluation. He was discovered to have bacteremia. An echocardiogram was performed for evaluation and he was also discovered to have moderately reduced LV systolic function. Currently the patient has an element of mild back discomfort. Is also complain ing of fatigue. He denied knee discomfort. He denied any breathing difficulty currently or previously while at rehab. He does have some ambulatory difficulty and at rehab spent most of his time in a wheelchair. He is able to transfer independently. He did not report breathing difficulty at [facility]. He did not have symptoms of chest discomfort or chest pain. He denied dizziness or lightheadedness. Has not been aware of any palpitations. He states that he does have a moment of lower extremity edema which he believes has improved recently. Allergies Allergy/AdvReac Type Severity Reaction Status Date / Time cat dander Allergy Severe CAT Verified 03/25/24 09:58 HAIR---Swelling of Lip/Tongue/Throat Home Medications Medication Instructions Recorded Confirmed Type aspirin 81 mg tablet,delayed 81 mg PO QAM 08/07/22 03/29/24 History release (Adult Low Dose Aspirin) lactobacillus combination no.9 4 6,000 mmu cells PO QAM use with 08/07/22 03/29/24 History billion cell capsule (Adult 50 antibiotics Plus Probiotic) omzdesdj-drnkqeo-izfm-lutein tablet 1 tab PO QAM 08/07/22 03/29/24 History cyanocobalamin (vitamin B-12) 500 1,000 mcg (2 x 500 mcg) PO QAM #30 01/18/23 03/29/24 Rx mcg tablet tabs thiamine HCl (vitamin B1) 100 mg 100 mg PO QAM 02/05/23 03/29/24 History tablet gabapentin 400 mg capsule 400 mg PO TID 30 days #90 caps 09/03/23 03/29/24 Rx olmesartan 5 mg tablet 5 mg PO DAILY 90 days #90 tabs 09/03/23 03/29/24 Rx upadacitinib 15 mg tablet,extended 15 mg PO DAILY 09/23/23 03/29/24 History release 24 hr (Rinvoq) metoprolol tartrate 25 mg tablet 12.5 mg (1/2 x 25 mg) PO BID 30 09/24/23 03/29/24 Rx days #30 tabs duloxetine 60 mg capsule,delayed 60 mg PO QAM #90 caps 10/29/23 03/29/24 Rx release ranolazine 500 mg tablet,extended 500 mg PO BID 11/06/23 03/29/24 History release,12 hr rivaroxaban 20 mg tablet (Xarelto) 20 mg PO DAILY 11/19/23 03/29/24 History sennosides 8.6 mg tablet 8.6 mg PO HS 12/15/23 03/29/24 History cholecalciferol (vitamin D3) 10 20 mcg PO DAILY 01/21/24 03/29/24 History mcg (400 unit) tablet esomeprazole magnesium 40 mg 40 mg PO HS 01/21/24 03/29/24 History capsule,delayed release (Nexium) mirtazapine 30 mg tablet 30 mg PO HS 01/21/24 03/29/24 History nitroglycerin 0.4 mg sublingual 0.4 mg sublingual DIRECTED PRN 01/21/24 03/29/24 History tablet chest pin pravastatin 40 mg tablet 40 mg PO HS 01/21/24 03/29/24 History vitamin E 268 mg (400 unit) capsule 268 mg PO DAILY ##0 01/21/24 03/29/24 History acetaminophen 325 mg tablet 975 mg PO Q8H PRN mild pain,fever, 01/26/24 03/29/24 History or headache omega 2-rvl-isr-fish oil 900 1 cap PO DAILY 02/01/24 03/29/24 History mg-1,400 mg capsule,delayed release clotrimazole 10 mg bella 10 mg PO DIRECTED 02/19/24 03/29/24 History bumetanide 1 mg tablet 1 mg PO DAILY 03/29/24 03/29/24 History codeine 10 mg-guaifenesin 100 mg/5 10 ml PO Q4H PRN Cough 03/29/24 03/29/24 History mL oral liquid doxycycline hyclate 100 mg capsule 100 mg PO BID 03/29/24 03/29/24 History ferrous sulfate 325 mg (65 mg 325 mg PO DAILY 03/29/24 03/29/24 History iron) tablet hydrocodone 5 mg-acetaminophen 325 1 tab PO Q4H PRN Pain (Scale Score 03/29/24 03/29/24 History mg tablet 4-6) isosorbide mononitrate 60 mg 60 mg PO QAM 03/29/24 03/29/24 History tablet,extended release 24 hr latanoprost 0.005 % eye drops 1 drp ophthalmic (eye) QPM 03/29/24 03/29/24 History melatonin 5 mg tablet 5 mg PO HS 03/29/24 03/29/24 History nystatin 100,000 unit/gram topical 1 applic topical DAILY 03/29/24 03/29/24 History powder tamsulosin 0.4 mg capsule 0.4 mg PO DAILY 03/29/24 03/29/24 History vitamin B comp and C no.3 15 mg-10 1 cap PO DAILY 03/29/24 03/29/24 History mg-50 mg-5 mg-300 mg capsule (B Complex Plus Vitamin C) Patient History Medical History UTI (urinary tract infection) Severe sepsis Venous ulcer of right leg Venous stasis ulcers of both lower extremities Idiopathic polyneuropathy History of immunosuppressive therapy Heart failure with preserved ejection fraction GERD (gastroesophageal reflux disease) Sepsis Septicemia due to Streptococcus pneumoniae Respiratory failure with hypoxia Hypomagnesemia Pneumonia Benign essential hypertension Lumbar stenosis Hx of staphylococcal infection 03/2022, w/"bacterial infection" at the same, in the rt. knee, occurrred during atrial fibrillation episode. "when he woke up, he couldn't walk." Atrial fibrillation episode occurred in 03/2022, [facility] to ICU for 1-2 weeks (was not intubated, but wasn't "awake either"), then to cardiac unit, then to rehab at Loc[facility] within [facility]; f/u dr. 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 Hx of knee surgery rt. patellar tendon repair Hx of rotator cuff surgery bilateral Hx of total knee replacement lt. Hx of total hip arthroplasty rt. History of colostomy reversal History of bowel resection for diverticulitis; w/colostomy placement for 3-4 months Hx of hernia repair near former colostomy site History of esophagogastroduodenoscopy (EGD) Hx of colonoscopy Last Colonoscopy 08/14/22, repeat 3 years in 2025 Hx of bilateral cataract extraction History of heart artery stent ~3 years ago, x2 stents, done in [place]; f/u dr guerra, [place]>will be seeing new cardio at [facility] week of August 2022. History of cardiac cath ~3 years ago, SOB and "felt like throat was constricting", had "silent heart attack", x2 stents, done in [place] Family History Grandmother (Maternal) Diabetes Daughter Diabetes Father Suicide Hypertension Denies family history of Ovarian cancer Prostate cancer Myocardial infarction Breast cancer Lung cancer Colorectal cancer Stroke Social History Smoking Status: Never smoker Second Hand Exposure: No; Do You Dip or Chew Tobacco: No; Tobacco Cessation Education Requested by Patient: No Hx Alcohol Use: Yes Alcohol type: wine Alcohol Intake Frequency: 4 or More x per/Week Hx Substance Use: No Preferred Language: Guatemalan Communication Ability: Effective Visual Impairment: Limited Hearing Ability: Normal Disk Recordist Required: No Beliefs That Will Affect Care: None marital status: Single Current Living Situation: Other Current Living Situation Comment: Independent living facility current occupational status: retired How many Children do You have: 2 Other Information That Helps Us Care for You: No Feels Safe at Home: Yes Safety Concerns: Feels Safe At This Time Childhood Exposure to Second-Hand Smoke: Yes caffeine: Yes Dental Care, Regularly: Yes Physical Activity Frequency: Does not Exercise Seatbelt Use: always Sunscreen Use: Yes Assistive Devices: Walker and Wheelchair Review of Systems Review of Systems: Per HPI. Physical Exam Physical Exam: The patient is alert and oriented. Mood and affect appeared normal. He answered all questions appropriately. HEENT: Pupils are equal and reactive to light and accommodation. Extraocular movements are intact. The sclerae are anicteric. Neuro: Cranial nerves intact Lungs: Distant breath sounds. Clear to auscultation bilaterally. He has good air movement without use of accessory muscles. No rales wheezes or rhonchi. Cardiac: Heart demonstrates a normal rate and regular rhythm with occasional ectopy. Normal S1 and S2. No murmurs on examination. Pulses: The patient has palpable radial pulses bilaterally that are equal in intensity Extremities: There was no evidence of hypoperfusion. There is no cyanosis or clubbing. Mild to moderate lower extremity edema bilaterally. Some trophic changes and ichthyosis Skin: I did not appreciate any rashes on examination today. Results & Data Vital Signs (Past 12 Hours) Vital Signs Temp Pulse Pulse Resp BP Pulse Ox O2 Del Method 04/02/24 11:24 36.8 C 78 18 148/84 H 92 Room Air 04/02/24 08:00 36.6 C 71 18 185/92 H 96 Room Air 04/02/24 07:28 72 04/02/24 03:34 36.6 C 77 20 116/64 92 Room Air Laboratory Results Abnormal Lab Results 04/02/24 06:29 WBC 5.77 RBC 3.03 L Hgb 9.3 L Hct 29.4 L MCV 97.0 MCH 30.7 MCHC 31.6 L RDW Std Deviation 57.1 H RDW Coeff of Sammie 16.0 H Plt Count 203 MPV 10.4 Immature Gran % (Auto) 0.3 Neut % (Auto) 59.7 Lymph % (Auto) 15.1 [place] % (Auto) 12.1 Eos % (Auto) 12.1 Baso % (Auto) 0.7 Neut # (Auto) 3.44 Lymph # (Auto) 0.87 L [place] # (Auto) 0.70 H Eos # (Auto) 0.70 H Baso # (Auto) 0.04 Immature Gran # (Auto) 0.02 Sodium 144 Potassium 4.1 Chloride 106 Carbon Dioxide 34 H Anion Gap 4 BUN 20 Creatinine 1.11 Est Cr Clr Drug Dosing 68.0 eGFR 67.13 BUN/Creatinine Ratio 18.0 Glucose 94 Calcium 8.5 L Magnesium 1.7 Diagnostic Findings Echocardiogram 04/01/2024: Moderate reduced LV systolic function with ejection fraction 35 to 40%. Global hypokinesis. Moderately reduced RV systolic function. No significant valvular abnormalities but visualization was limited. ECG Additional Comments: EKG dated 03/29/2024: Normal sinus rhythm with occasional PVCs. Nonspecific ST and T wave changes. PG Care Time/CCT Total # of Minutes Spent Total Time Spent with Patient: Total time spent is greater than 50% in coordination of care (as documented) at patient's floor/unit and/or counseling patient: Coding Level of Care Code 08833 INT INP/OBS CARE MIN Diagnoses Atrial fibrillation I48.91
[2024-04-02] MEDS: CLOTRIMAZOLE 1% CR 15 GM TUBE EXT SCH (11:56)
[2024-04-02] MEDS: BUMETANIDE 1 MG TAB PO SCH (11:56)
[2024-04-02] MEDS ORDERED: POLYETHYLENE (MIRALAX) 17 GM PACK PO PRN (13:42)
[2024-04-02] MEDS ORDERED: bisacodyL 10 MG SUPP PR PRN (13:42)
[2024-04-02] MEDS: POLYETHYLENE (MIRALAX) 17 GM PACK PO SCH (15:01)
[2024-04-02] MEDS: METOPROLOL TARTRATE 25 MG TAB PO SCH (21:39)
[2024-04-02] MEDS: VALSARTAN/SACUBITRIL 26/24MG TAB PO SCH (21:40)
[2024-04-03 06:08] LABS: Basophils # (auto) 0.05 K/uL (0.00-0.20); Basophils % (auto) 0.7 %; Eosinophils # (auto) 0.81 K/uL (0.00-0.50); Eosinophils % (auto) 11.6 %; Hematocrit (blood only) 30.8 % (42.0-52.0); Hemoglobin 9.8 g/dl (14.0-18.0); Immature Granulocytes # (auto) 0.01 K/uL (0.01-0.20); Immature Granulocytes % (auto) 0.1 %; Lymphocytes # (auto) 1.11 K/uL (1.20-3.40); Lymphocytes % (auto) 15.9 %; Mean Corpuscular Hemoglobin 30.5 pg (25.0-34.0); Mean Corpuscular Hgb Conc 31.8 g/dL (32.0-36.0); Mean Platelet Volume 10.2 fL (9.4-12.4); Monocytes # (auto) 0.76 K/uL (0.11-0.59); Monocytes % (auto) 10.9 %; Neutrophils # (auto) 4.22 K/uL (1.40-6.50); Neutrophils % (auto) 60.8 %; Platelet Count 205 K/uL (130-400); RDW Coefficient of Variation 15.9 % (11.5-14.5); RDW Standard Deviation 56.2 fL (36.4-46.3); Red Blood Count 3.21 M/uL (4.70-6.10); White Blood Count 6.96 K/ul (4.8-10.8)
[2024-04-03 06:25] LABS: BUN Creatinine Ratio 17.8 (10-20); Calcium 8.6 mg/dl (8.6-10.3); Creatinine Clr Calc Pharmacy 70.5 ml/min; Potassium 3.9 mmol/L (3.5-5.1)
--- NOTE | 2024-04-03 09:09 | Cardiology Progress Note ---
Date of Service April 03, 2024 Assessment & Plan (1) Atrial fibrillation: Plan 1. Cardiomyopathy: He has moderate reduced LV systolic function. Also some right ventricular dysfunction. Global hypokinesis which would suggest a nonischemic etiology. No symptoms recently to suggest an acute coronary syndrome. Metoprolol tartrate switched to succinate this morning. Entresto started as well. In the absence of any contraindication I would start Jardiance 10 mg daily tomorrow. 2. Coronary artery disease: History of percutaneous intervention to the LAD. No current symptoms suggestive of coronary insufficiency or angina. He can continue aggressive secondary prevention with aspirin and Xarelto. Statin medication appears to be on hold with use of daptomycin. I question the patient regarding the use of ranolazine and isosorbide mononitrate. He cannot recall any symptoms of chest pain recently. In fact, he has been quite immobile. I will discontinue his medications and we will monitor him for additional symptoms. 3. Atrial fibrillation: Paroxysmal. Not on telemetry. Continue systemic anticoagulation. 4. 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 Not symptomatic. The percentage seems to vary considerably. Unclear if this could have played a role in his cardiomyopathy. Unclear if her nausea could have been started and attempt to reduce his PVCs instead of as an antianginal. Will continue metoprolol and consider increasing the dose if he continues to have frequent PVCs. Not an outflow tract source. 5. Hyperlipidemia: At goal in 2022. Perhaps he is well-controlled with pravastatin. This can be resumed once his antibiotic course is completed. Admission and Anticipated Discharge Date Admission Date: March 30, 2024 Review of Systems Review of Systems: Per HPI. Physical Exam Physical Exam: The patient is alert and oriented. Mood and affect appeared normal. He answered all questions appropriately. HEENT: Pupils are equal and reactive to light and accommodation. Extraocular movements are intact. The sclerae are anicteric. Neuro: Cranial nerves intact Lungs: Distant breath sounds. Clear to auscultation bilaterally. He does have some coarse upper airway sounds and some expiratory wheezing today. Cardiac: Heart demonstrates a normal rate and regular rhythm with occasional ectopy. Normal S1 and S2. No murmurs on examination. Pulses: The patient has palpable radial pulses bilaterally that are equal in intensity Extremities: There was no evidence of hypoperfusion. There is no cyanosis or clubbing. Mild to moderate lower extremity edema bilaterally. Some trophic changes and ichthyosis Skin: I did not appreciate any rashes on examination today. Results & Data Vital Signs (Past 12 Hours) Vital Signs Temp Pulse Pulse Resp BP Pulse Ox O2 Del Method 04/03/24 07:37 36.5 C 76 18 148/79 H 90 Room Air 04/03/24 02:49 36.6 C 69 13 130/66 90 Room Air 04/02/24 22:50 36.5 C 80 16 138/84 92 Room Air 04/02/24 21:46 82 Laboratory Results Abnormal Lab Results 04/03/24 05:43 WBC 6.96 RBC 3.21 L Hgb 9.8 L Hct 30.8 L MCV 96.0 MCH 30.5 MCHC 31.8 L RDW Std Deviation 56.2 H RDW Coeff of Sammie 15.9 H Plt Count 205 MPV 10.2 Immature Gran % (Auto) 0.1 Neut % (Auto) 60.8 Lymph % (Auto) 15.9 [place] % (Auto) 10.9 Eos % (Auto) 11.6 Baso % (Auto) 0.7 Neut # (Auto) 4.22 Lymph # (Auto) 1.11 L [place] # (Auto) 0.76 H Eos # (Auto) 0.81 H Baso # (Auto) 0.05 Immature Gran # (Auto) 0.01 Sodium 142 Potassium 3.9 Chloride 103 Carbon Dioxide 33 H Anion Gap 6 BUN 19 Creatinine 1.07 Est Cr Clr Drug Dosing 70.5 eGFR 70.15 BUN/Creatinine Ratio 17.8 Glucose 96 Calcium 8.6 PG Care Time/CCT Total # of Minutes Spent Total Time Spent with Patient: Total time spent is greater than 50% in coordination of care (as documented) at patient's floor/unit and/or counseling patient: Coding Level of Care Code 93224 SUB INP/OBS CARE 2/35MIN Diagnoses Atrial fibrillation I48.91
[2024-04-03] MEDS: MAGNESIUM OXIDE 400 MG TAB PO SCH (09:33)
[2024-04-03] MEDS: METOPROLOL SUCC 25MG EXT REL TAB PO SCH (09:33)
--- NOTE | 2024-04-03 11:06 | Hospitalist Progress Note ---
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 Doxy held (resume when dapto finished) - if worsening back pain, new spinal tenderness, or ongoing bacteremia would pursue MRI L spine - TTE no valvular pathology but valves no well visualized - Pt does have Stage 2 pressure injury to coccyx area - no signs of active infection Ortho consulted -s/p aspiration, knee does not seem to be the source PT/OT - recommending rehab, CM following AM CBC, BMP (2) HFrEF (heart failure with reduced ejection fraction): Plan: home regiment: imur, ranexa, Losartan, Metoprolol and bumex - bumex resumed 04/02 Echo (done for GP bacteremia) - EF 35-40%, global hypokinesis - prior EF 50-55 Cardiology consulted - switched to Entresto. Lisinopril D/xavi. - switched to metoprolol succinated 25mg qAM - stopped imdur and renexa, monitor for CP. - consider jardiance 10mg - to start AM 04/03, monitor kidney function with bumex. (3) Anemia: Plan: Acute on Chronic - baseline seems to fluctuate between 10-13 Hgb on admission 10.8 --> 8.8 but has remained stable and uptrending - xarelto resumed Pt does report black stools, and possible BRBPR - fecal occult ordered, uncollected - has been constipated, bowel regiment started, GIB less likely (4) JEFFERY (acute kidney injury): Plan: BUN 30, creatinine 1.67 (baseline 1.11.2) on arrival Daughter reports that patient had JEFFERY due to cefepime use at [facility], which was switched to ertapenem on 03/18. Cr peaked at 2.5 at [facility] Received PO and IV fluids. Bumex resumed 04/02 JEFFERY resolved - monitor kidney function with restarting jardiance (5) Infection of prosthetic right knee joint: Plan: Right knee x-ray on arrival revealed soft tissue swelling and small to moderate right knee joint effusion Continue ertapenem IV daily and doxycycline BID (this is lifelong for hx of MRSA bacteremia) PICC line removed 04/01 - will need terminal operations manager access replaced before discharge Plan Chronic stable medical conditions: * afib - continue metoprolol, xarelto Resolved conditions: * Hypomagesemia - replaced PO and IV, continue on once a day PO Dispo: conitnued inpatient stay DVT proh: Neno Daughter updated at bedside 03/31 Son updated by phone 03/31 & 04/01, 04/02 Admission and Anticipated Discharge Date Admission Date: March 30, 2024 Subjective PAtient seen this morning. Does report that he is feeling tired today. Feels like his breathing is improved. chronic back pain is no worse than normal. Continues to be afrebrile Tele SR 70s Review of Systems Review of Systems: All systems reviewed & are unremarkable except as noted in Subjective Physical Exam Physical Exam: General: NAD, VS as above Resp: normal respiratory effort, diminished in the bases - no crackles today CV: RRR, no murmur, Abd: normal bowel sounds, non tender, no hepatosplenomegaly : redness in groin area is improving Extremities: Moves all extremities, left LE is wrapped. 1+ pitting edema Neuro: A&O x3, Skin: stage 2 skin break down coccyx area, no signs of infection Results & Data Results & Data Vital Signs (Past 12 Hours) Vital Signs Temp Pulse Resp BP Pulse Ox O2 Del Method 04/03/24 07:37 97.7 F 76 18 148/79 H 90 Room Air 04/03/24 02:49 97.9 F 69 13 130/66 90 Room Air Laboratory Results CBC and chemistry reviewed Blood and fluid cultures reviewed PG Care Time/CCT Total # of Minutes Spent Total Time Spent with Patient: Total time spent is greater than 50% in coordination of care (as documented) at patient's floor/unit and/or counseling patient: Coding Level of Care Code 03038 SUB INP/OBS CARE 50MIN Diagnoses Ambulatory dysfunction R26.2 HFrEF (heart failure with reduced ejection fraction) I50.20 Anemia D64.9 Anemia type: unspecified type JEFFERY (acute kidney injury) N17.9 Infection of prosthetic right knee joint T84.53XA (3) Anemia Anemia type: unspecified type Qualified Code(s): D64.9 - Anemia, unspecified
[2024-04-03] MEDS: ALBUT/IPRATROP 3MG/0.5MG NEB 3 ML VIAL NEB PRN (14:18)
[2024-04-03] MEDS: NYSTATIN POWDER 15GM BTL EXT PRN (23:11)
[2024-04-03] MEDS: diphenhydrAMINE HCl 12.5 MG/5 ML UDC PO ONE (23:11)
[2024-04-04 06:41] LABS: Basophils # (auto) 0.05 K/uL (0.00-0.20); Basophils % (auto) 0.7 %; Eosinophils % (auto) 11.9 %; Hematocrit (blood only) 32.3 % (42.0-52.0); Hemoglobin 10.1 g/dl (14.0-18.0); Immature Granulocytes # (auto) 0.01 K/uL (0.01-0.20); Immature Granulocytes % (auto) 0.1 %; Lymphocytes # (auto) 1.07 K/uL (1.20-3.40); Lymphocytes % (auto) 15.9 %; Mean Corpuscular Hemoglobin 30.4 pg (25.0-34.0); Mean Corpuscular Hgb Conc 31.3 g/dL (32.0-36.0); Mean Corpuscular Volume 97.3 fL (80.0-100.0); Mean Platelet Volume 10.8 fL (9.4-12.4); Monocytes # (auto) 0.88 K/uL (0.11-0.59); Monocytes % (auto) 13.1 %; Neutrophils # (auto) 3.91 K/uL (1.40-6.50); Neutrophils % (auto) 58.3 %; Platelet Count 210 K/uL (130-400); RDW Coefficient of Variation 15.9 % (11.5-14.5); RDW Standard Deviation 57.1 fL (36.4-46.3); Red Blood Count 3.32 M/uL (4.70-6.10); White Blood Count 6.72 K/ul (4.8-10.8)
[2024-04-04 07:05] LABS: BUN Creatinine Ratio 18.3 (10-20); Calcium 8.4 mg/dl (8.6-10.3); Creatinine Clr Calc Pharmacy 72.9 ml/min; Potassium 3.8 mmol/L (3.5-5.1)
[2024-04-04] MEDS: EMPAGLIFLOZIN 10 MG TAB PO SCH (09:58)
[2024-04-04] MEDS: diphenhydrAMINE Capsule 25 MG CAP PO PRN (13:35)
--- NOTE | 2024-04-04 16:04 | Infectious Disease Progress Nt ---
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 On admission he was afebrile, vss. Initial labs with WBC wnl, Cr 1.67, AST/ALT wnl. Troponin elevated. PCT 0.03. UA negative. CXR with mild bibasilar atelectasis. Knee XR with right knee soft tissue swelling and suspected small-moderate right knee joint effusion, similar to prior. He was admitted for fall and JEFFERY. Course c/b hypotension and hypoxia after working with PT on 03/30. RPP negative. BCX sent which returned positive for GPC (VRE faecium by PCR). S/p right knee aspiration on 03/31 showed clearly bloody fluid (WBC 639). He was started on daptomycin and ID consulted 03/31. No other clear source identified on examination. He has some baseline lower back pain related to spinal stenosis, but nontender on examination. He also states he has hardware in both shoulders and right hip in addition to knee, but no issues at these sites either (no pain or swelling). No known cardiac devices. PICC was last changed on 03/25. Since no clear source recommended PICC removal. Can be replaced once BCx have cleared. If he develops ongoing bacteremia, or if he has worsening back pain or new spinal tenderness, would pursue MRI of L spine. # Bacteremia 2/2 E faecium PCR with VRE # Right knee PJI 2/2 E cloacae on ertapenem # H/o MRSA PJI on doxy suppression # PICC in place # JEFFERY improving # h/o RA on rinvoq - TTE w/o veg -Picc line removed 04/01 cath tip NG, BC NGTD Recommendations - continue daptomycin 900mg (10mg/kg) IV q24h (CrCl 56, CK 145, BMI 32, AdjBW 90kg) , plan for 2 weeks post line removal if BC remains sterile and no evidence of deep seeded infection - continue ertapenem 1g IV daily to end as scheduled 04/06 - doxycycline held for now as he is on daptomycin itll need to be resumed once hes completed treatment for current bacteremia - no statins while on daptomycin - if worsening back pain, new spinal tenderness, or ongoing bacteremia would pursue MRI L spine ID will continue to follow Gavi Rich MD, MPH Infectious Disease ID [facility], ID Division Call [phone] with questions Admission and Anticipated Discharge Date Admission Date: March 30, 2024 Subjective This patient recommendation is based on a telemedicine consult request which was completed asynchronously through chart review and information provided by the primary physician. The patient was not seen or examined today. The evaluation is consultative in nature and all patient care and treatment decisions can either be accepted or rejected by the patient's primary hospital-based treating physician using their own independent medical judgment for their patient. Time Spent Reviewing Chart: 21 - 30 minutes WBC 6.72, cr 1.04 Picc removed 04/01, cath tip sterile Repeat Bc NGTD Results & Data Vital Signs (Past 12 Hours) Vital Signs Temp Pulse Resp BP Pulse Ox O2 Del Method 04/04/24 15:56 36.5 C 89 20 135/78 96 Room Air 04/04/24 11:53 36.7 C 70 18 129/68 97 Room Air 04/04/24 07:59 36.8 C 88 20 138/79 98 Room Air Laboratory Results Laboratory Results - last 48 hr 04/03/24 04/04/24 05:43 05:24 WBC 6.96 6.72 RBC 3.21 L 3.32 L Hgb 9.8 L 10.1 L Hct 30.8 L 32.3 L MCV 96.0 97.3 MCH 30.5 30.4 MCHC 31.8 L 31.3 L RDW Std Deviation 56.2 H 57.1 H RDW Coeff of Sammie 15.9 H 15.9 H Plt Count 205 210 MPV 10.2 10.8 Immature Gran % (Auto) 0.1 0.1 Neut % (Auto) 60.8 58.3 Lymph % (Auto) 15.9 15.9 Centre % (Auto) 10.9 13.1 Eos % (Auto) 11.6 11.9 Baso % (Auto) 0.7 0.7 Neut # (Auto) 4.22 3.91 Lymph # (Auto) 1.11 L 1.07 L Centre # (Auto) 0.76 H 0.88 H Eos # (Auto) 0.81 H 0.80 H Baso # (Auto) 0.05 0.05 Immature Gran # (Auto) 0.01 0.01 Sodium 142 142 Potassium 3.9 3.8 Chloride 103 104 Carbon Dioxide 33 H 32 Anion Gap 6 6 BUN 19 19 Creatinine 1.07 1.04 Est Cr Clr Drug Dosing 70.5 72.9 eGFR 70.15 72.59 BUN/Creatinine Ratio 17.8 18.3 Glucose 96 94 Calcium 8.6 8.4 L Diagnostic Findings Microbiology 03/31/24 10:48 Knee,Right Gram Stain - Final 03/31/24 10:48 Knee,Right Aerobic and Anaerobic Culture - Preliminary No growth to date. 04/01/24 Unknown Catheter Tip, Picc Catheter Tip Culture - Final No growth 04/01/24 06:10 Blood Aerobic Blood Culture - Preliminary No growth in Aerobic bottle after 48 hours. 04/01/24 06:10 Blood Anaerobic Blood Culture - Preliminary No growth in Anaerobic bottle after 48 hours. 03/31/24 10:48 Knee,Right Fungal Smear - Final 03/31/24 10:48 Knee,Right Fungal Culture - Preliminary No yeast or fungus isolated - Report 1, Additional Report to Follow. 03/30/24 14:58 Blood Aerobic Blood Culture - Final Enterococcus faecium VRE 03/30/24 14:58 Blood Anaerobic Blood Culture - Final Enterococcus faecium VRE 03/30/24 15:22 Blood Aerobic Blood Culture - Preliminary No growth in Aerobic bottle after 48 hours. 03/30/24 15:22 Blood Anaerobic Blood Culture - Preliminary No growth in Anaerobic bottle after 48 hours. Medications Administered Home Medications Medication Instructions Recorded Confirmed Last Taken aspirin 81 mg tablet,delayed 81 mg PO QAM 08/07/22 03/29/24 11/05/23 release (Adult Low Dose Aspirin) lactobacillus combination no.9 4 6,000 mmu cells PO QAM use with 08/07/22 03/29/24 11/05/23 billion cell capsule (Adult 50 antibiotics Plus Probiotic) anlvduob-jqkafmp-hede-lutein tablet 1 tab PO QAM 08/07/22 03/29/24 11/05/23 cyanocobalamin (vitamin B-12) 500 1,000 mcg (2 x 500 mcg) PO QAM #30 01/18/23 03/29/24 11/05/23 mcg tablet tabs thiamine HCl (vitamin B1) 100 mg 100 mg PO QAM 02/05/23 03/29/24 11/05/23 tablet gabapentin 400 mg capsule 400 mg PO TID 30 days #90 caps 09/03/23 03/29/24 11/05/23 olmesartan 5 mg tablet 5 mg PO DAILY 90 days #90 tabs 09/03/23 03/29/24 11/05/23 upadacitinib 15 mg tablet,extended 15 mg PO DAILY 09/23/23 03/29/24 11/05/23 release 24 hr (Rinvoq) metoprolol tartrate 25 mg tablet 12.5 mg (1/2 x 25 mg) PO BID 30 09/24/23 03/29/24 11/05/23 days #30 tabs duloxetine 60 mg capsule,delayed 60 mg PO QAM #90 caps 10/29/23 03/29/24 11/05/23 release ranolazine 500 mg tablet,extended 500 mg PO BID 11/06/23 03/29/24 11/05/23 release,12 hr rivaroxaban 20 mg tablet (Xarelto) 20 mg PO DAILY 11/19/23 03/29/24 12/14/23 10:00 sennosides 8.6 mg tablet 8.6 mg PO HS 12/15/23 03/29/24 Unknown cholecalciferol (vitamin D3) 10 20 mcg PO DAILY 01/21/24 03/29/24 Unknown mcg (400 unit) tablet esomeprazole magnesium 40 mg 40 mg PO HS 01/21/24 03/29/24 Unknown capsule,delayed release (Nexium) mirtazapine 30 mg tablet 30 mg PO HS 01/21/24 03/29/24 Unknown nitroglycerin 0.4 mg sublingual 0.4 mg sublingual DIRECTED PRN 01/21/24 03/29/24 Unknown tablet chest pin pravastatin 40 mg tablet 40 mg PO HS 01/21/24 03/29/24 Unknown vitamin E 268 mg (400 unit) capsule 268 mg PO DAILY ##0 01/21/24 03/29/24 Unknown acetaminophen 325 mg tablet 975 mg PO Q8H PRN mild pain,fever, 01/26/24 03/29/24 Unknown or headache omega 8-ixq-rla-fish oil 900 1 cap PO DAILY 02/01/24 03/29/24 Unknown mg-1,400 mg capsule,delayed release clotrimazole 10 mg bella 10 mg PO DIRECTED 02/19/24 03/29/24 Unknown bumetanide 1 mg tablet 1 mg PO DAILY 03/29/24 03/29/24 Unknown codeine 10 mg-guaifenesin 100 mg/5 10 ml PO Q4H PRN Cough 03/29/24 03/29/24 Unknown mL oral liquid doxycycline hyclate 100 mg capsule 100 mg PO BID 03/29/24 03/29/24 Unknown ferrous sulfate 325 mg (65 mg 325 mg PO DAILY 03/29/24 03/29/24 Unknown iron) tablet hydrocodone 5 mg-acetaminophen 325 1 tab PO Q4H PRN Pain (Scale Score 03/29/24 03/29/24 Unknown mg tablet 4-6) isosorbide mononitrate 60 mg 60 mg PO QAM 03/29/24 03/29/24 Unknown tablet,extended release 24 hr latanoprost 0.005 % eye drops 1 drp ophthalmic (eye) QPM 03/29/24 03/29/24 Unknown melatonin 5 mg tablet 5 mg PO HS 03/29/24 03/29/24 Unknown nystatin 100,000 unit/gram topical 1 applic topical DAILY 03/29/24 03/29/24 Unknown powder tamsulosin 0.4 mg capsule 0.4 mg PO DAILY 03/29/24 03/29/24 Unknown vitamin B comp and C no.3 15 mg-10 1 cap PO DAILY 03/29/24 03/29/24 Unknown mg-50 mg-5 mg-300 mg capsule (B Complex Plus Vitamin C) Active Medications Generic Name Dose Route Start Last Admin Trade Name Westonq PRN Reason Stop Dose Admin Acetaminophen 650 mg 03/29/24 19:26 04/04/24 10:49 Acetaminophen 325 Mg Tab PO 04/28/24 19:25 650 mg Q4H PRN Administration pain/fever Hydrocodone Bitart/Acetaminophen 1 tab 03/29/24 19:26 04/03/24 21:52 Hydrocodone/Acetamophen 5/325mg Tab PO 04/12/24 19:25 1 tab Q4H PRN Administration Pain (Scale Score 4-6) Albuterol 3 ml 03/31/24 16:32 04/03/24 14:18 Albut/Ipratrop 3mg/0.5mg Neb 3 Ml Vial NEB 04/30/24 16:31 3 ml Q6R PRN Administration Shortness Of Breath Or Wheezing Protocol Aspirin 81 mg 03/30/24 09:00 04/04/24 09:58 Aspirin 81 Mg Ectab PO 04/29/24 08:59 81 mg QAM ELDER Administration Bumetanide 1 mg 04/02/24 11:00 04/04/24 09:56 Bumetanide 1 Mg Tab PO 05/02/24 10:59 1 mg QAM ELDER Administration Clotrimazole 1 appln 04/02/24 11:00 04/04/24 09:57 Clotrimazole 1% Cr 15 Gm Tube EXT 05/02/24 10:59 1 appln BID ELDER Administration Diphenhydramine HCl 25 mg 04/04/24 12:22 04/04/24 13:35 Diphenhydramine Capsule 25 Mg Cap PO 05/04/24 12:21 25 mg Q6H PRN Administration Itching Duloxetine HCl 60 mg 03/30/24 09:00 04/04/24 09:58 Duloxetine Hcl 60 Mg Cap PO 04/29/24 08:59 60 mg QAM ELDER Administration Empagliflozin 10 mg 04/04/24 09:00 04/04/24 09:58 Empagliflozin 10 Mg Tab PO 05/04/24 08:59 10 mg DAILY ELDER Administration Ferrous Sulfate 325 mg 03/30/24 09:00 04/04/24 09:59 Ferrous Sulfate 325 Mg Tab PO 04/29/24 08:59 325 mg DAILY ELDER Administration Gabapentin 400 mg 03/29/24 21:00 04/04/24 13:35 Gabapentin 400 Mg Cap PO 04/28/24 20:59 400 mg TID ELDER Administration Guaifenesin 600 mg 03/31/24 16:32 04/03/24 21:52 Guaifenesin 600 Mg Tabcr PO 04/30/24 20:59 600 mg Q12 PRN Administration Cough Heparin Sodium (Beef Lung) 5 ml 03/30/24 16:21 03/30/24 16:29 Heparin 10 Unit/Ml 5 Ml Flush FLUSH 04/29/24 16:20 5 ml PRN PRN Administration Flush Ertapenem 1,000 mg in 10 mls @ 2 mls/min 03/30/24 15:00 04/04/24 13:35 Invanz 1000mg IV 04/07/24 14:59 2 mls/min Q24H ELDER Administration Daptomycin 900 mg/ Syringe 18 mls @ 9 mls/min 03/31/24 11:30 04/04/24 13:35 IV 04/14/24 11:29 9 mls/min Q24H ELDER Administration Protocol Lactobacillus Acidophilus 625 mg 03/30/24 09:00 04/04/24 09:59 Advanced Probiotic 625 Mg Capsule PO 04/29/24 08:59 625 mg QAM ELDER Administration Latanoprost 1 drops 03/29/24 21:00 04/03/24 21:51 Latanoprost 0.005% Op Soln 2.5 Ml Btl OP 04/28/24 20:59 1 drops QPM ELDER Administration Magnesium Oxide 400 mg 04/03/24 09:00 04/04/24 09:56 Magnesium Oxide 400 Mg Tab PO 05/03/24 08:59 400 mg QAM ELDER Administration Melatonin 3 mg 03/29/24 19:26 04/03/24 21:52 Melatonin 3 Mg Tab PO 04/28/24 19:25 3 mg HS PRN Administration Insomnia Metoprolol Succinate 25 mg 04/03/24 09:00 04/04/24 09:57 Metoprolol Succ 25mg Ext Rel Tab PO 05/03/24 08:59 25 mg QAM ELDER Administration Mirtazapine 30 mg 03/29/24 21:00 04/03/24 21:51 Mirtazapine Tab 15 Mg Tab PO 04/28/24 20:59 30 mg HS ELDER Administration Nystatin 1 appln 04/03/24 22:39 04/04/24 09:57 Nystatin Powder 15gm Btl EXT 05/03/24 22:38 1 appln BID PRN Administration rash Polyethylene Glycol 17 gm 04/02/24 13:45 04/04/24 09:59 Polyethylene (Miralax) 17 Gm Pack PO 05/02/24 13:44 17 gm DAILY ELDER Administration Pravastatin Sodium 40 mg 03/29/24 21:00 03/30/24 21:47 Pravastatin Sod 40 Mg Tab PO 04/28/24 20:59 40 mg HS ELDER Administration Rivaroxaban 20 mg 03/31/24 17:00 04/03/24 16:54 Rivaroxaban 20 Mg Tab PO 04/30/24 16:59 20 mg DAILY@1700 ELDER Administration Sacubitril/Valsartan 1 tab 04/02/24 21:00 04/04/24 09:56 Valsartan/Sacubitril 26/24mg Tab PO 05/02/24 20:59 1 tab BID ELDER Administration Sennosides 8.6 mg 03/29/24 21:00 04/03/24 21:52 Senna 8.6 Mg Tab PO 04/28/24 20:59 8.6 mg HS ELDER Administration Tamsulosin HCl 0.4 mg 03/30/24 09:00 04/04/24 09:58 Tamsulosin Hcl 0.4 Mg Cap PO 04/29/24 08:59 0.4 mg DAILY ELDER Administration Thiamine HCl 100 mg 03/31/24 09:00 04/04/24 09:59 Thiamine Hcl 100 Mg Tab PO 04/30/24 08:59 100 mg QAM ELDER Administration
--- NOTE | 2024-04-04 16:14 | Hospitalist Progress Note ---
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 Doxy held (resume when dapto finished) - if worsening back pain, new spinal tenderness, or ongoing bacteremia would pursue MRI L spine - TTE no valvular pathology but valves no well visualized - Pt does have Stage 2 pressure injury to coccyx area - no signs of active infection Ortho consulted -s/p aspiration, knee does not seem to be the source PT/OT - recommending rehab, CM following CBC and BMP reviewed 04/04: stable. AM CBC, BMP (2) HFrEF (heart failure with reduced ejection fraction): Plan: home regimen: Imdur, Ranexa, Losartan, Metoprolol and Bumex - Bumex resumed 04/02 Echo (done for GP bacteremia) - EF 35-40%, global hypokinesis - prior EF 50-55 Cardiology consulted - switched to Entresto. Lisinopril D/xavi. - switched to metoprolol succinated 25mg qAM - stopped imdur and renexa, monitor for CP. - consider jardiance 10mg - to start AM 04/03, monitor kidney function with Bumex. (3) Anemia: Plan: Acute on Chronic - baseline seems to fluctuate between 10-13 Hgb on admission 10.8 --> 8.8 but has remained stable and uptrending - xarelto resumed CBC reviewed 04/04: hgb 10.1 Fecal Occult pending. AM CBC. (4) JEFFERY (acute kidney injury): Plan: BUN 30, creatinine 1.67 (baseline 1.11.2) on arrival Daughter reports that patient had JEFFERY due to cefepime use at [facility], which was switched to ertapenem on 03/18. Cr peaked at 2.5 at [facility] Received PO and IV fluids. Bumex resumed 04/02 JEFFERY resolved - monitor kidney function with restarting Jardiance BMP 04/04: creatinine WNL (5) Infection of prosthetic right knee joint: Plan: Right knee x-ray on arrival revealed soft tissue swelling and small to moderate right knee joint effusion Continue ertapenem IV daily and doxycycline BID (this is lifelong for hx of MRSA bacteremia) PICC line removed 04/01 - will need buttermaker access replaced before discharge Plan Disposition: Obs - admit to [facility] Full code Regular diet VTE PPx: On Xarelto Admission and Anticipated Discharge Date Admission Date: March 30, 2024 Subjective Patient seen and examined this morning. Patient reports to be feeling okay today. He did report knee pain. Denied any chest pain or shortness of breath. patient feels as if he feeling ready to be discharged soon. Physical Exam Constitutional: WD/WN, vitals as above Eyes: PERRL, conjunctivae normal, anicteric sclerae Respiratory: normal respiratory effort, lungs clear to auscultation Cardiovascular: tachycardic, no murmur, no LE edema Skin: no rashes, warm and dry Psychiatric: A+Ox3, euthymic affect Results & Data Results & Data Vital Signs (Past 12 Hours) Vital Signs Temp Pulse Resp BP Pulse Ox O2 Del Method 04/04/24 15:56 36.5 C 89 20 135/78 96 Room Air 04/04/24 11:53 36.7 C 70 18 129/68 97 Room Air 04/04/24 07:59 36.8 C 88 20 138/79 98 Room Air PG Care Time/CCT Total # of Minutes Spent Total Time Spent with Patient: Total time spent is greater than 50% in coordination of care (as documented) at patient's floor/unit and/or counseling patient: Coding Level of Care Code 80326 SUB INP/OBS CARE 2/35MIN Diagnoses Ambulatory dysfunction R26.2 HFrEF (heart failure with reduced ejection fraction) I50.20 Anemia D64.9 JEFFERY (acute kidney injury) N17.9 Infection of prosthetic right knee joint T84.53XA
[2024-04-05] MEDS: BENZONATATE 100 MG CAPSULE PO PRN (00:07)
[2024-04-05 05:53] LABS: Basophils # (auto) 0.05 K/uL (0.00-0.20); Basophils % (auto) 0.7 %; Eosinophils # (auto) 0.86 K/uL (0.00-0.50); Eosinophils % (auto) 11.4 %; Hematocrit (blood only) 32.6 % (42.0-52.0); Hemoglobin 10.3 g/dl (14.0-18.0); Immature Granulocytes # (auto) 0.02 K/uL (0.01-0.20); Immature Granulocytes % (auto) 0.3 %; Lymphocytes # (auto) 1.15 K/uL (1.20-3.40); Lymphocytes % (auto) 15.2 %; Mean Corpuscular Hemoglobin 30.1 pg (25.0-34.0); Mean Corpuscular Hgb Conc 31.6 g/dL (32.0-36.0); Mean Corpuscular Volume 95.3 fL (80.0-100.0); Mean Platelet Volume 10.6 fL (9.4-12.4); Monocytes # (auto) 0.86 K/uL (0.11-0.59); Monocytes % (auto) 11.4 %; Neutrophils # (auto) 4.61 K/uL (1.40-6.50); Platelet Count 229 K/uL (130-400); RDW Coefficient of Variation 16.3 % (11.5-14.5); RDW Standard Deviation 57.3 fL (36.4-46.3); Red Blood Count 3.42 M/uL (4.70-6.10); White Blood Count 7.55 K/ul (4.8-10.8)
[2024-04-05 06:06] LABS: BUN Creatinine Ratio 16.7 (10-20); Calcium 8.6 mg/dl (8.6-10.3); Creatinine Clr Calc Pharmacy 66.3 ml/min; Potassium 3.8 mmol/L (3.5-5.1)
--- NOTE | 2024-04-05 09:56 | XRay Report ---
AP AND LATERAL CHEST RADIOGRAPHS CLINICAL HISTORY: Cough. COMPARISON STUDY: Chest radiograph March 29, 2024. FINDINGS: Calcified thoracic lymph nodes and calcified granulomas within the lungs are again noted. C ardiomegaly is unchanged. No evidence for pulmonary edema. There is no pneumothorax or pleural effusi on. No consolidation is present. IMPRESSION: No acute cardiopulmonary findings. No change in appearance of the chest. ACT 112: Negative or not required by law. Electronically signed by: Jong Nascimento M.D. 04/05/2024 9:55 AM
--- NOTE | 2024-04-05 12:56 | Orthopedic Progress Note ---
Date of Service April 05, 2024 Assessment & Plan Admission and Anticipated Discharge Date Admission Date: March 30, 2024 Orthopedic Progress Note Follow-up of his right knee. Chart reviewed. He has been afebrile for over a week. Today cultures have been no growth in his right knee joint aspirate. He denies any increasing pain in his knee can bear weight on his leg when he gets up to sit in the chair. Medically he is quite debilitated. Dressing changed today there is no drainage everything is dry the areas of abrasion are drying up there is no significant issue there is no significant swelling in the knee. Gentle range of motion and is pain-free and is limited arc. Neurovascular check is baseline has significant skin venous stasis changes and dry skin. Has eschars throughout the leg. Assessment status postdebridement poly exchange right knee replacement repeat aspirate at this point times not growing anything. The Enterococcus species is likely from his GI tract based on the subtype. At this point continue with present course he should follow-up with his operative surgeon at [place] in the near future when he gets discharged from the hospital.
--- NOTE | 2024-04-05 16:02 | Hospitalist Progress Note ---
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 CXR reviewed 04/05: no acute changes. Added Mucinex BID 04/05. If patient develops further symptoms or they persist, could consider repeating respiratory biofire (neg 03/30). AM CBC, BMP (2) HFrEF (heart failure with reduced ejection fraction): Plan: home regimen: Imdur, Ranexa, Losartan, Metoprolol and Bumex - Bumex resumed 04/02 Echo (done for GP bacteremia) - EF 35-40%, global hypokinesis - prior EF 50-55 Cardiology consulted - switched to Entresto. Lisinopril D/xavi. - switched to metoprolol succinated 25mg qAM - stopped imdur and renexa, monitor for CP. - consider jardiance 10mg - to start AM 04/03, monitor kidney function with Bumex. (3) Anemia: Plan: Acute on Chronic - baseline seems to fluctuate between 10-13 Hgb on admission 10.8 --> 8.8 but has remained stable and uptrending - xarelto resumed CBC reviewed 04/05: hgb 10.3 Fecal Occult pending. AM CBC. (4) JEFFERY (acute kidney injury): Plan: BUN 30, creatinine 1.67 (baseline 1.11.2) on arrival Daughter reports that patient had JEFFERY due to cefepime use at [facility], which was switched to ertapenem on 03/18. Cr peaked at 2.5 at [facility] Received PO and IV fluids. Bumex resumed 04/02 JEFFERY resolved - monitor kidney function with restarting Jardiance BMP 04/05: creatinine WNL (5) Infection of prosthetic right knee joint: Plan: Right knee x-ray on arrival revealed soft tissue swelling and small to moderate right knee joint effusion PICC line removed 04/01 - will need usp access replaced before discharge ID note reviewed 04/05: Recommending daptomycin 900mg IV q24h, plan for 2 weeks from post line removal. Ertapenem 1g IV daily through 04/06. Doxy held while on daptomycin - resume when IV abx completed No statins while on dapto If worsening back pain, new spinal tenderness, or ongoing bacteremia - pursue MRI L spine TTE no valvular pathology but valves no well visualized Pt does have Stage 2 pressure injury to coccyx area - no signs of active infection Plan Disposition: Obs - admit to [facility] Full code Regular diet VTE PPx: On Xarelto Updated son extensively via phone 04/05 P2P completed 04/05, was denied for [facility], CM following. Admission and Anticipated Discharge Date Admission Date: March 30, 2024 Subjective Patient seen and examined this morning. patient reports productive cough for few days. Denies shortness of breath or chest pain. Denies any additional complaints. Physical Exam Constitutional: WD/WN, vitals as above Eyes: PERRL, conjunctivae normal, anicteric sclerae Respiratory: clear b/l, diminished at lung bases Cardiovascular: RRR, no murmur, no edema Skin: no rashes, warm and dry Psychiatric: A+Ox3, euthymic affect Results & Data Results & Data Vital Signs (Past 12 Hours) Vital Signs Temp Pulse Pulse Resp BP BP Pulse Ox 04/05/24 15:17 36.7 C 75 18 131/70 91 04/05/24 11:26 36.7 C 85 14 137/78 91 04/05/24 08:00 79 04/05/24 07:31 36.4 C L 81 20 175/75 H 88 L O2 Del Method 04/05/24 15:17 Room Air 04/05/24 11:26 Room Air 04/05/24 08:00 04/05/24 07:31 Room Air PG Care Time/CCT Total # of Minutes Spent Total Time Spent with Patient: Total time spent is greater than 50% in coordination of care (as documented) at patient's floor/unit and/or counseling patient: Coding Level of Care Code 39758 SUB INP/OBS CARE 350MIN Diagnoses Ambulatory dysfunction R26.2 HFrEF (heart failure with reduced ejection fraction) I50.20 Anemia D64.9 JEFFERY (acute kidney injury) N17.9 Infection of prosthetic right knee joint T84.53XA
[2024-04-05] MEDS: COUGH DROP (SUGAR FREE) LOZ 24 LOZ/1 BOX BUCCAL ONE (18:35)
[2024-04-05] MEDS: guaiFENesin 600 MG TABCR PO SCH (21:24)
[2024-04-06 06:57] LABS: Basophils # (auto) 0.06 K/uL (0.00-0.20); Basophils % (auto) 0.8 %; Eosinophils # (auto) 0.91 K/uL (0.00-0.50); Eosinophils % (auto) 12.9 %; Hematocrit (blood only) 31.8 % (42.0-52.0); Hemoglobin 10.2 g/dl (14.0-18.0); Immature Granulocytes # (auto) 0.03 K/uL (0.01-0.20); Immature Granulocytes % (auto) 0.4 %; Lymphocytes # (auto) 1.05 K/uL (1.20-3.40); Lymphocytes % (auto) 14.9 %; Mean Corpuscular Hemoglobin 30.5 pg (25.0-34.0); Mean Corpuscular Hgb Conc 32.1 g/dL (32.0-36.0); Mean Corpuscular Volume 95.2 fL (80.0-100.0); Mean Platelet Volume 10.5 fL (9.4-12.4); Monocytes # (auto) 0.87 K/uL (0.11-0.59); Monocytes % (auto) 12.3 %; Neutrophils # (auto) 4.15 K/uL (1.40-6.50); Neutrophils % (auto) 58.7 %; Platelet Count 223 K/uL (130-400); RDW Coefficient of Variation 16.5 % (11.5-14.5); RDW Standard Deviation 57.3 fL (36.4-46.3); Red Blood Count 3.34 M/uL (4.70-6.10); White Blood Count 7.07 K/ul (4.8-10.8)
[2024-04-06 07:22] LABS: BUN Creatinine Ratio 15.1 (10-20); Calcium 8.7 mg/dl (8.6-10.3); Potassium 3.6 mmol/L (3.5-5.1)
[2024-04-06] MEDS: INFLUENZA VACC TS2024-25(65y+)/PF (IIV3) 0.5mL Syr IM ONE (13:21)
[2024-04-06] MEDS: GABAPENTIN 400 MG CAP PO SCH (13:28)
[2024-04-06] MEDS: GABAPENTIN 100 MG CAP PO SCH (13:34)
--- NOTE | 2024-04-06 13:36 | Palliative Care Consultation ---
Date of Consultation April 06, 2024 Assessment & Plan (1) Back pain: Increase to Neurontin 500mg PO TID (2) Generalized weakness: (3) Advanced care planning/counseling discussion: A 45min face to face complex ACP meeting was held with pt at bedside: I met with Mr Palacio who seems well aware of his predicament. 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 He is not used to being idle. He thrived on being active and places a very high value on freedom/autonomy and mobility. He wants to keep trying to regain his physical strength but understands there are potentials scenarios for this to not be achievable. We spoke at length about his cardiovascular issues and RA, how the combination of progressing illness can compromise health further in the context of his current infection issues. He was sad but accepting. We also spoke about pain mgt and I bumped up Neurontin to 500mg PO TID from 400mg TID. He is dismayed at having to go to SNF Rehab and frustrated his insurance wont cover [facility] again. He wants every chance to get as close to his prior PS as he can. He wishes to remain a full code. 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 might it be worthwhile looking into the possibility of any [facility] rehab for him?? He agreed to ongoing follow up with me and I will ask Talia to get him on my clinic schedule for a few weeks after his d/c once w know that date. (4) Palliative care by specialist: Introduced Palliative Medicine and explained our role in patient's care. Patient and/or family were receptive to palliative services for goals of care discussions. Reviewed we are different from hospice, a home health nurse visiting service. 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 Admitted after a fall at his apartment, down for maybe 12 hr +fatigue, weakness recently completed rehab at [facility] for prosthetic Right knee joint infection, developed JEFFERY on cefipime Hx a fib echo EF 30%, ?acute reaction - he feels it was normal before this admission PMH: MRSA infection, prosthetic right knee infection, CAD, CHF, sepsis, rhabdomyolysis, NSTEMI, atrial fibrillation, chronic venous stasis, peripheral neuropathy, and cellulitis He complains of chronic but worsening low back pain attributed to longstanding degenerative disc disease/spinal stenosis Some aching pain right knee Able to stand/pivot/transition from bed to chair/toilet ADLs with mild assistance Appetite ok, eats to improve health but not for pleasure. Mood depressed Does not like being in hospital, does not like feeling captive Allergies Allergy/AdvReac Type Severity Reaction Status Date / Time cat dander Allergy Severe CAT Verified 03/25/24 09:58 HAIR---Swelling of Lip/Tongue/Throat Home Medications Medication Instructions Recorded Confirmed Type aspirin 81 mg tablet,delayed 81 mg PO QAM 08/07/22 03/29/24 History release (Adult Low Dose Aspirin) lactobacillus combination no.9 4 6,000 mmu cells PO QAM use with 08/07/22 03/29/24 History billion cell capsule (Adult 50 antibiotics Plus Probiotic) oichnztp-qpesfly-aibd-lutein tablet 1 tab PO QAM 08/07/22 03/29/24 History cyanocobalamin (vitamin B-12) 500 1,000 mcg (2 x 500 mcg) PO QAM #30 01/18/23 03/29/24 Rx mcg tablet tabs thiamine HCl (vitamin B1) 100 mg 100 mg PO QAM 02/05/23 03/29/24 History tablet gabapentin 400 mg capsule 400 mg PO TID 30 days #90 caps 09/03/23 03/29/24 Rx olmesartan 5 mg tablet 5 mg PO DAILY 90 days #90 tabs 09/03/23 03/29/24 Rx upadacitinib 15 mg tablet,extended 15 mg PO DAILY 09/23/23 03/29/24 History release 24 hr (Rinvoq) metoprolol tartrate 25 mg tablet 12.5 mg (1/2 x 25 mg) PO BID 30 09/24/23 03/29/24 Rx days #30 tabs duloxetine 60 mg capsule,delayed 60 mg PO QAM #90 caps 10/29/23 03/29/24 Rx release ranolazine 500 mg tablet,extended 500 mg PO BID 11/06/23 03/29/24 History release,12 hr rivaroxaban 20 mg tablet (Xarelto) 20 mg PO DAILY 11/19/23 03/29/24 History sennosides 8.6 mg tablet 8.6 mg PO HS 12/15/23 03/29/24 History cholecalciferol (vitamin D3) 10 20 mcg PO DAILY 01/21/24 03/29/24 History mcg (400 unit) tablet esomeprazole magnesium 40 mg 40 mg PO HS 01/21/24 03/29/24 History capsule,delayed release (Nexium) mirtazapine 30 mg tablet 30 mg PO HS 01/21/24 03/29/24 History nitroglycerin 0.4 mg sublingual 0.4 mg sublingual DIRECTED PRN 01/21/24 03/29/24 History tablet chest pin pravastatin 40 mg tablet 40 mg PO HS 01/21/24 03/29/24 History vitamin E 268 mg (400 unit) capsule 268 mg PO DAILY ##0 01/21/24 03/29/24 History acetaminophen 325 mg tablet 975 mg PO Q8H PRN mild pain,fever, 01/26/24 03/29/24 History or headache omega 8-znq-ahi-fish oil 900 1 cap PO DAILY 02/01/24 03/29/24 History mg-1,400 mg capsule,delayed release clotrimazole 10 mg bella 10 mg PO DIRECTED 02/19/24 03/29/24 History bumetanide 1 mg tablet 1 mg PO DAILY 03/29/24 03/29/24 History codeine 10 mg-guaifenesin 100 mg/5 10 ml PO Q4H PRN Cough 03/29/24 03/29/24 History mL oral liquid doxycycline hyclate 100 mg capsule 100 mg PO BID 03/29/24 03/29/24 History ferrous sulfate 325 mg (65 mg 325 mg PO DAILY 03/29/24 03/29/24 History iron) tablet hydrocodone 5 mg-acetaminophen 325 1 tab PO Q4H PRN Pain (Scale Score 03/29/24 03/29/24 History mg tablet 4-6) isosorbide mononitrate 60 mg 60 mg PO QAM 03/29/24 03/29/24 History tablet,extended release 24 hr latanoprost 0.005 % eye drops 1 drp ophthalmic (eye) QPM 03/29/24 03/29/24 History melatonin 5 mg tablet 5 mg PO HS 03/29/24 03/29/24 History nystatin 100,000 unit/gram topical 1 applic topical DAILY 03/29/24 03/29/24 History powder tamsulosin 0.4 mg capsule 0.4 mg PO DAILY 03/29/24 03/29/24 History vitamin B comp and C no.3 15 mg-10 1 cap PO DAILY 03/29/24 03/29/24 History mg-50 mg-5 mg-300 mg capsule (B Complex Plus Vitamin C) Patient History Medical History UTI (urinary tract infection) Severe sepsis Venous ulcer of right leg Venous stasis ulcers of both lower extremities Idiopathic polyneuropathy History of immunosuppressive therapy Heart failure with preserved ejection fraction GERD (gastroesophageal reflux disease) Sepsis Septicemia due to Streptococcus pneumoniae Respiratory failure with hypoxia Hypomagnesemia Pneumonia Benign essential hypertension Lumbar stenosis Hx of staphylococcal infection 03/2022, w/"bacterial infection" at the same, in the rt. knee, occurrred during atrial fibrillation episode. "when he woke up, he couldn't walk." Atrial fibrillation episode occurred in 03/2022, taken to [facility], admitted to ICU for 1-2 weeks (was not intubated, but wasn't "awake either"), then to cardiac unit, then to rehab at [facility] in [place]; f/u dr. guerra in [place]>will be starting to see a diagnostic cardiac sonographer at [facility] 2nd week of 08/2022 Myocardial Infarction "a silent one2019" Sleep apnea no device Surgical History Hx of Achilles tendon repair rt. Hx of knee surgery rt. patellar tendon repair Hx of rotator cuff surgery bilateral Hx of total knee replacement lt. Hx of total hip arthroplasty rt. History of colostomy reversal History of bowel resection for diverticulitis; w/colostomy placement for 3-4 months Hx of hernia repair near former colostomy site History of esophagogastroduodenoscopy (EGD) Hx of colonoscopy Last Colonoscopy 08/14/22, repeat 3 years in 2025 Hx of bilateral cataract extraction History of heart artery stent ~3 years ago, x2 stents, done in [place]; f/u dr guerra, [place]>will be seeing new cardio at [place] 2nd week of August 2022. History of cardiac cath ~3 years ago, SOB and "felt like throat was constricting", had "silent heart attack", x2 stents, done in [place] Family History Grandmother (Maternal) Diabetes Daughter Diabetes Father Suicide Hypertension Denies family history of Ovarian cancer Prostate cancer Myocardial infarction Breast cancer Lung cancer Colorectal cancer Stroke Social History Smoking Status: Never smoker Second Hand Exposure: No; Do You Dip or Chew Tobacco: No; Hx Alcohol Use: Yes Alcohol type: wine Alcohol Intake Frequency: 4 or More x per/Week Hx Substance Use: No Preferred Language: Vietnamese Communication Ability: Effective Visual Impairment: Limited Hearing Ability: Normal Test Desk Trouble Locator Required: No Beliefs That Will Affect Care: None marital status: Single Current Living Situation: Other Current Living Situation Comment: Independent living facility current occupational status: retired How many Children do You have: 2 Feels Safe at Home: Yes Childhood Exposure to Second-Hand Smoke: Yes caffeine: Yes Dental Care, Regularly: Yes Physical Activity Frequency: Does not Exercise Seatbelt Use: always Sunscreen Use: Yes Assistive Devices: Walker and Wheelchair Review of Systems Review of Systems: All systems reviewed & are unremarkable except as noted in Subjective Physical Exam Physical Exam: NACT perrla, eomi's dentition intact neck supple, no JVD lungs CTA, no rales, rhonchi or wheeze S1S2, sl irreg Abd soft, NTP, BS+ RLE with wound dressing BLE +venous insuff changes, skin with woody texture scatt ecchymoses AAOx3 mood subdued Results & Data Vital Signs (Past 12 Hours) Vital Signs Temp Pulse Pulse Resp BP BP BP 04/06/24 11:41 88 16 160/102 H 04/06/24 11:13 04/06/24 07:37 36.8 C 99 H 16 158/116 H 04/06/24 03:26 36.7 C 88 18 136/86 136/86 Pulse Ox O2 Del Method 04/06/24 11:41 95 Room Air 04/06/24 11:13 Room Air 04/06/24 07:37 96 Room Air 04/06/24 03:26 94 Room Air PG Care Time/CCT Total # of Minutes Spent Total Time Spent with Patient: Total time spent is greater than 50% in coordination of care (as documented) at patient's floor/unit and/or counseling patient: I spent 105 minutes overall addressing this case: 25 min in medical data review/discussion with referring provider(s) and/or preparation for the visit incl OSH notes, encompass notes, d/w OSH provider 20 min in direct interaction with the patient/exam 45 min in Advance Care Planning/Goals of Care discussions as detailed above in note (must be >16min) 5 min in subsequent review and synthesis of assessment and plan 10 min communicating with other providers regarding the patient's case: nursing care mgt, primary team Advanced Care Planning 35514 Advanced Care Planning 30 Min 63951 Advanced Care Planning Additional 30 [place] [address] IN/OBS CONSULT LVL 4,60M (25 - SIGNIFICANT, SEPARATELY IDENTIFIABLE ) Patient Type New Diagnoses Back pain M54.9 Generalized weakness R53.1 Advanced care planning/counseling discussion Z71.89 Palliative care by specialist Z51.5 Additional Codes Advanced Care Planning - 96007 Advanced Care Planning 30 Min: 37437 Advanced Care Planning 30 Min ([id number]) Advanced Care Planning - 24256 Advanced Care Planning Additional 30 Min: 35088 Advanced Care Planning Additional 30 Min ([id number])
[2024-04-06] MEDS: INFLUENZA VACC TS2024-25(6m+)/PF (IIV3) 0.5mL Syr IM ONE (14:16)
--- NOTE | 2024-04-06 15:36 | Hospitalist Progress Note ---
Date of Service April 06, 2024 Assessment & Plan (1) Ambulatory dysfunction: Plan: Patient recently d/c from [facility] 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 CXR reviewed 04/05: no acute changes. Added Mucinex BID 04/05. If patient develops further symptoms or they persist, could consider repeating respiratory biofire (neg 03/30). PICC line consent form signed 04/06/2024. AM CBC, BMP (2) HFrEF (heart failure with reduced ejection fraction): Plan: home regimen: Imdur, Ranexa, Losartan, Metoprolol and Bumex - Bumex resumed 04/02 Echo (done for GP bacteremia) - EF 35-40%, global hypokinesis - prior EF 50-55 Cardiology consulted - switched to Entresto. Lisinopril D/xavi. - switched to metoprolol succinated 25mg qAM - stopped imdur and renexa, monitor for CP. - Jardiance 10mg started 04/03 - kidney function stable. (3) Anemia: Plan: Acute on Chronic - baseline seems to fluctuate between 10-13 Hgb on admission 10.8 --> 8.8 but has remained stable and uptrending - xarelto resumed CBC reviewed 04/06: hgb 10.2 Fecal Occult pending. AM CBC. (4) JEFFERY (acute kidney injury): Plan: BUN 30, creatinine 1.67 (baseline 1.11.2) on arrival Daughter reports that patient had JEFFERY due to cefepime use at [facility] which was switched to ertapenem on 03/18. Cr peaked at 2.5 [facility] Received PO and IV fluids. Bumex resumed 04/02 JEFFERY resolved - monitor kidney function with restarting Jardiance BMP 04/06: creatinine WNL (5) Infection of prosthetic right knee joint: Plan: Right knee x-ray on arrival revealed soft tissue swelling and small to moderate right knee joint effusion PICC line removed 04/01 - will need exterminator termite access replaced before discharge ID note reviewed 04/05: Recommending daptomycin 900mg IV q24h, plan for 2 weeks from post line removal. Ertapenem 1g IV daily through 04/06. Doxy held while on daptomycin - resume when IV abx completed No statins while on dapto If worsening back pain, new spinal tenderness, or ongoing bacteremia - pursue MRI L spine TTE no valvular pathology but valves no well visualized Pt does have Stage 2 pressure injury to coccyx area - no signs of active infection PICC line consent signed 04/06. Anticipate discharge to [facility] 04/07 after PICC is placed. CM following Plan Palliative care met with patient 04/06 - he is to follow up outpatient. Neurontin was increased to 500mg TID from 400mg TID Discussed with Gaviota Adams DNP via [place] text. Disposition: Hopeful discharge to [facility] 04/07 pending PICC placement. Full code Regular diet VTE PPx: On Xarelto Admission and Anticipated Discharge Date Admission Date: March 30, 2024 Subjective Patient seen and examined today. patient complaining of cough. He reports low back pain but states that is normal for him. Denies any other complaints. Physical Exam 2 Constitutional: WD/WN, vitals as above Eyes: PERRL, conjunctivae normal, anicteric sclerae Respiratory: lung sounds diminished but CTA Cardiovascular: RRR, no murmur, no edema Psychiatric: A+Ox3, euthymic affect Results & Data Results & Data Vital Signs (Past 12 Hours) Vital Signs Temp Pulse Pulse Pulse Resp BP Pulse Ox 04/06/24 15:02 79 21 136/91 100 04/06/24 14:12 110 H 04/06/24 11:41 88 16 160/102 H 95 04/06/24 11:13 04/06/24 07:37 36.8 C 99 H 16 158/116 H 96 O2 Del Method 04/06/24 15:02 Room Air 04/06/24 14:12 04/06/24 11:41 Room Air 04/06/24 11:13 Room Air 04/06/24 07:37 Room Air Laboratory Results 04/06/24 06:27 04/06/24 06:27 PG Care Time/CCT Total # of Minutes Spent Total Time Spent with Patient: Total time spent is greater than 50% in coordination of care (as documented) at patient's floor/unit and/or counseling patient: Coding Level of Care Code 97924 SUB INP/OBS CARE 2/35MIN Diagnoses Ambulatory dysfunction R26.2 HFrEF (heart failure with reduced ejection fraction) I50.20 Anemia D64.9 Anemia type: unspecified type JEFFERY (acute kidney injury) N17.9 Infection of prosthetic right knee joint T84.53XA (3) Anemia Anemia type: unspecified type Qualified Code(s): D64.9 - Anemia, unspecified
--- NOTE | 2024-04-06 16:56 | Infectious Disease Progress Nt ---
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 On admission he was afebrile, vss. Initial labs with WBC wnl, Cr 1.67, AST/ALT wnl. Troponin elevated. PCT 0.03. UA negative. CXR with mild bibasilar atelectasis. Knee XR with right knee soft tissue swelling and suspected small-moderate right knee joint effusion, similar to prior. He was admitted for fall and JEFFERY. Course c/b hypotension and hypoxia after working with PT on 03/30. RPP negative. BCX sent which returned positive for GPC (VRE faecium by PCR). S/p right knee aspiration on 03/31 showed clearly bloody fluid (WBC 639). He was started on daptomycin and ID consulted 03/31. No other clear source identified on examination. He has some baseline lower back pain related to spinal stenosis, but nontender on examination. He also states he has hardware in both shoulders and right hip in addition to knee, but no issues at these sites either (no pain or swelling). No known cardiac devices. PICC was last changed on 03/25. Since no clear source recommended PICC removal. Can be replaced once BCx have cleared. If he develops ongoing bacteremia, or if he has worsening back pain or new spinal tenderness, would pursue MRI of L spine. TTE is a poor study, but not obvious valve vegatations. Micro blood cultures 03/30 2/4 bottles VRE Knee wound culture 03/31 no growth Knee wound culture (fungal) 03/31 no growth Blood culture 04/01 no growth Antibiotics Doxycycline occbulgpts86/24 Ertapenem outpatientongoing Daptomycin 03/31ongoing A # Bacteremia 2/2 E faecium PCR with VRE: ? line infection # Right knee PJI 2/2 E cloacae on ertapenem # H/o MRSA PJI on doxy suppression # PICC in place # JEFFERY improving # h/o RA on rinvoq - TTE w/o veg -Picc line removed 04/01 cath tip NG, BC NGTD Recommendations - continue daptomycin 900mg (10mg/kg) IV q24h (CrCl ~60, CK 145, BMI 32, AdjBW 90kg) , plan for 2 weeks post line removal if BC remains sterile and no evidence of deep seeded infection EOT for dapto is 04/15/24. held off on switching to oral linezolid as he is on duloxetine and some risk of serotonin syndrome. - continue ertapenem 1g IV daily to end as scheduled 04/07/24 - doxycycline held for now as he is on daptomycin itll need to be resumed once hes completed treatment for current bacteremia. Plan to restart on 04/16/24 - no statins while on daptomycin - Weekly cbc , BMP, LFT Ck on Daptomycin - Follow up as scheduled with his ID provider and ortho. - repeat BC 1 week post completion of daptomycin ID will sign off . Please call with questions Gavi Rich MD, MPH Infectious Disease [facility], ID Division Call [phone] with questions Admission and Anticipated Discharge Date Admission Date: March 30, 2024 Subjective Subsequent visit was provided via telemedicine using two-way real-time interactive telecommunication between the patient and the telemedicine provider. For the duration of the visit, the provider was performing the assessment from a different facility than the patient. This includesuse of bluetooth stethoscope forauscultationperformed by the telepresenter that the telemedic ine provider can hear if described in the physical exam. Medical Intern contact information: Please call [facility] Call Center [phone]. (Phone Number For Physician Use Only) After establishing a telemedicine visit, patient was: Patient was verified with two unique identifiers Time Spent with Patient: Subsequent => 35 min He is sitting up in chair Afebrile. Denies cough, nausea, diarrhea Picc removed 04/01, cath tip sterile Repeat Bc NGTD cr 1.25, WBC 7.07 Physical Exam Physical Exam: General: Awake, alert, no acute distress HEENT: NC/AT, anicteric sclera Neck: supple Lungs: no increased wob Heart: nl peripheral perfusion Abdomen: soft, NT/ND Back: no spinal tenderness Ext: no LE edema, left knee with superficial wound, right knee with surgical incision with some scabbed areas. Results & Data Vital Signs (Past 12 Hours) Vital Signs Temp Pulse Pulse Pulse Resp BP Pulse Ox 04/06/24 15:02 79 21 136/91 100 04/06/24 14:12 110 H 04/06/24 11:41 88 16 160/102 H 95 04/06/24 11:13 04/06/24 07:37 36.8 C 99 H 16 158/116 H 96 O2 Del Method 04/06/24 15:02 Room Air 04/06/24 14:12 04/06/24 11:41 Room Air 04/06/24 11:13 Room Air 04/06/24 07:37 Room Air Laboratory Results 04/01/24 06:10 Aerobic Blood Culture - Final Blood No growth in Aerobic bottle after 5 days. Anaerobic Blood Culture - Final No growth in Anaerobic bottle after 5 days. 04/06/24 06:27 WBC 7.07 RBC 3.34 L Hgb 10.2 L Hct 31.8 L MCV 95.2 MCH 30.5 MCHC 32.1 RDW Std Deviation 57.3 H RDW Coeff of Sammie 16.5 H Plt Count 223 MPV 10.5 Immature Gran % (Auto) 0.4 Neut % (Auto) 58.7 Lymph % (Auto) 14.9 [place] % (Auto) 12.3 Eos % (Auto) 12.9 Baso % (Auto) 0.8 Neut # (Auto) 4.15 Lymph # (Auto) 1.05 L [place] # (Auto) 0.87 H Eos # (Auto) 0.91 H Baso # (Auto) 0.06 Immature Gran # (Auto) 0.03 Sodium 143 Potassium 3.6 Chloride 103 Carbon Dioxide 33 H Anion Gap 7 BUN 19 Creatinine 1.26 Est Cr Clr Drug Dosing 60.0 eGFR 57.66 BUN/Creatinine Ratio 15.1 Glucose 91 Calcium 8.7 Diagnostic Findings Microbiology 04/01/24 06:10 Blood Aerobic Blood Culture - Final No growth in Aerobic bottle after 5 days. 04/01/24 06:10 Blood Anaerobic Blood Culture - Final No growth in Anaerobic bottle after 5 days. 03/31/24 10:48 Knee,Right Gram Stain - Final 03/31/24 10:48 Knee,Right Aerobic and Anaerobic Culture - Final No growth 03/30/24 15:22 Blood Aerobic Blood Culture - Final No growth in Aerobic bottle after 5 days. 03/30/24 15:22 Blood Anaerobic Blood Culture - Final No growth in Anaerobic bottle after 5 days. 04/01/24 Unknown Catheter Tip, Picc Catheter Tip Culture - Final No growth 03/31/24 10:48 Knee,Right Fungal Smear - Final 03/31/24 10:48 Knee,Right Fungal Culture - Preliminary No yeast or fungus isolated - Report 1, Additional Report to Follow. 03/30/24 14:58 Blood Aerobic Blood Culture - Final Enterococcus faecium VRE 03/30/24 14:58 Blood Anaerobic Blood Culture - Final Enterococcus faecium VRE Chest X-Ray 04/05/24 08:00 AP AND LATERAL CHEST RADIOGRAPHS CLINICAL HISTORY: Cough. COMPARISON STUDY: Chest radiograph March 29, 2024. FINDINGS: Calcified thoracic lymph nodes and calcified granulomas within the lungs are again noted. Cardiomegaly is unchanged. No evidence for pulmonary edema. There is no pneumothorax or pleural effusion. No consolidation is present. IMPRESSION: No acute cardiopulmonary findings. No change in appearance of the chest. ACT 112: Negative or not required by law. Electronically signed by: Jong Nascimento M.D. 04/05/2024 9:55 AM Medications Administered Home Medications Medication Instructions Recorded Confirmed Last Taken aspirin 81 mg tablet,delayed 81 mg PO QAM 08/07/22 03/29/24 11/05/23 release (Adult Low Dose Aspirin) lactobacillus combination no.9 4 6,000 mmu cells PO QAM use with 08/07/22 03/29/24 11/05/23 billion cell capsule (Adult 50 antibiotics Plus Probiotic) asspjvxw-hdpdrdm-juml-lutein tablet 1 tab PO QAM 08/07/22 03/29/24 11/05/23 cyanocobalamin (vitamin B-12) 500 1,000 mcg (2 x 500 mcg) PO QAM #30 01/18/23 03/29/24 11/05/23 mcg tablet tabs thiamine HCl (vitamin B1) 100 mg 100 mg PO QAM 02/05/23 03/29/24 11/05/23 tablet gabapentin 400 mg capsule 400 mg PO TID 30 days #90 caps 09/03/23 03/29/24 11/05/23 olmesartan 5 mg tablet 5 mg PO DAILY 90 days #90 tabs 09/03/23 03/29/24 11/05/23 upadacitinib 15 mg tablet,extended 15 mg PO DAILY 09/23/23 03/29/24 11/05/23 release 24 hr (Rinvoq) metoprolol tartrate 25 mg tablet 12.5 mg (1/2 x 25 mg) PO BID 30 09/24/23 03/29/24 11/05/23 days #30 tabs duloxetine 60 mg capsule,delayed 60 mg PO QAM #90 caps 10/29/23 03/29/24 11/05/23 release ranolazine 500 mg tablet,extended 500 mg PO BID 11/06/23 03/29/24 11/05/23 release,12 hr rivaroxaban 20 mg tablet (Xarelto) 20 mg PO DAILY 11/19/23 03/29/24 12/14/23 10:00 sennosides 8.6 mg tablet 8.6 mg PO HS 12/15/23 03/29/24 Unknown cholecalciferol (vitamin D3) 10 20 mcg PO DAILY 01/21/24 03/29/24 Unknown mcg (400 unit) tablet esomeprazole magnesium 40 mg 40 mg PO HS 01/21/24 03/29/24 Unknown capsule,delayed release (Nexium) mirtazapine 30 mg tablet 30 mg PO HS 01/21/24 03/29/24 Unknown nitroglycerin 0.4 mg sublingual 0.4 mg sublingual DIRECTED PRN 01/21/24 03/29/24 Unknown tablet chest pin pravastatin 40 mg tablet 40 mg PO HS 01/21/24 03/29/24 Unknown vitamin E 268 mg (400 unit) capsule 268 mg PO DAILY ##0 01/21/24 03/29/24 Unknown acetaminophen 325 mg tablet 975 mg PO Q8H PRN mild pain,fever, 01/26/24 03/29/24 Unknown or headache omega 0-agq-cym-fish oil 900 1 cap PO DAILY 02/01/24 03/29/24 Unknown mg-1,400 mg capsule,delayed release clotrimazole 10 mg bella 10 mg PO DIRECTED 02/19/24 03/29/24 Unknown bumetanide 1 mg tablet 1 mg PO DAILY 03/29/24 03/29/24 Unknown codeine 10 mg-guaifenesin 100 mg/5 10 ml PO Q4H PRN Cough 03/29/24 03/29/24 Unknown mL oral liquid doxycycline hyclate 100 mg capsule 100 mg PO BID 03/29/24 03/29/24 Unknown ferrous sulfate 325 mg (65 mg 325 mg PO DAILY 03/29/24 03/29/24 Unknown iron) tablet hydrocodone 5 mg-acetaminophen 325 1 tab PO Q4H PRN Pain (Scale Score 03/29/24 03/29/24 Unknown mg tablet 4-6) isosorbide mononitrate 60 mg 60 mg PO QAM 03/29/24 03/29/24 Unknown tablet,extended release 24 hr latanoprost 0.005 % eye drops 1 drp ophthalmic (eye) QPM 03/29/24 03/29/24 Unknown melatonin 5 mg tablet 5 mg PO HS 03/29/24 03/29/24 Unknown nystatin 100,000 unit/gram topical 1 applic topical DAILY 03/29/24 03/29/24 Unknown powder tamsulosin 0.4 mg capsule 0.4 mg PO DAILY 03/29/24 03/29/24 Unknown vitamin B comp and C no.3 15 mg-10 1 cap PO DAILY 03/29/24 03/29/24 Unknown mg-50 mg-5 mg-300 mg capsule (B Complex Plus Vitamin C) Active Medications Generic Name Dose Route Start Last Admin Trade Name Freq PRN Reason Stop Dose Admin Acetaminophen 650 mg 03/29/24 19:26 04/06/24 08:38 Acetaminophen 325 Mg Tab PO 04/28/24 19:25 650 mg Q4H PRN Administration pain/fever Hydrocodone Bitart/Acetaminophen 1 tab 03/29/24 19:26 04/06/24 01:47 Hydrocodone/Acetamophen 5/325mg Tab PO 04/12/24 19:25 1 tab Q4H PRN Administration Pain (Scale Score 4-6) Albuterol 3 ml 03/31/24 16:32 04/03/24 14:18 Albut/Ipratrop 3mg/0.5mg Neb 3 Ml Vial NEB 04/30/24 16:31 3 ml Q6R PRN Administration Shortness Of Breath Or Wheezing Protocol Aspirin 81 mg 03/30/24 09:00 04/06/24 08:41 Aspirin 81 Mg Ectab PO 04/29/24 08:59 81 mg QAM ELDER Administration Benzonatate 100 mg 04/04/24 23:08 04/05/24 00:07 Benzonatate 100 Mg Capsule PO 05/05/24 08:59 100 mg TID PRN Administration Cough Bumetanide 1 mg 04/02/24 11:00 04/06/24 08:43 Bumetanide 1 Mg Tab PO 05/02/24 10:59 1 mg QAM ELDER Administration Clotrimazole 1 appln 04/02/24 11:00 04/06/24 08:44 Clotrimazole 1% Cr 15 Gm Tube EXT 05/02/24 10:59 1 appln BID ELDER Administration Diphenhydramine HCl 25 mg 04/04/24 12:22 04/06/24 01:47 Diphenhydramine Capsule 25 Mg Cap PO 05/04/24 12:21 25 mg Q6H PRN Administration Itching Duloxetine HCl 60 mg 03/30/24 09:00 04/06/24 08:41 Duloxetine Hcl 60 Mg Cap PO 04/29/24 08:59 60 mg QAM ELDER Administration Empagliflozin 10 mg 04/04/24 09:00 04/06/24 10:57 Empagliflozin 10 Mg Tab PO 05/04/24 08:59 10 mg DAILY ELDER Administration Ferrous Sulfate 325 mg 03/30/24 09:00 04/06/24 08:41 Ferrous Sulfate 325 Mg Tab PO 04/29/24 08:59 325 mg DAILY ELDER Administration Gabapentin 400 mg 04/06/24 14:00 04/06/24 13:28 Gabapentin 400 Mg Cap PO 05/06/24 13:59 400 mg TID ELDER Administration Gabapentin 100 mg 04/06/24 14:00 04/06/24 13:34 Gabapentin 100 Mg Cap PO 05/06/24 13:59 100 mg TID ELDER Administration Guaifenesin 600 mg 04/05/24 21:00 04/06/24 08:46 Guaifenesin 600 Mg Tabcr PO 05/05/24 20:59 600 mg Q12 ELDER Administration Heparin Sodium (Beef Lung) 5 ml 03/30/24 16:21 03/30/24 16:29 Heparin 10 Unit/Ml 5 Ml Flush FLUSH 04/29/24 16:20 5 ml PRN PRN Administration Flush Ertapenem 1,000 mg in 10 mls @ 2 mls/min 03/30/24 15:00 04/06/24 15:08 Invanz 1000mg IV 04/07/24 14:59 2 mls/min Q24H ELDER Administration Daptomycin 900 mg/ Syringe 18 mls @ 9 mls/min 03/31/24 11:30 04/06/24 13:28 IV 04/14/24 11:29 9 mls/min Q24H ELDER Administration Protocol Lactobacillus Acidophilus 625 mg 03/30/24 09:00 04/06/24 08:37 Advanced Probiotic 625 Mg Capsule PO 04/29/24 08:59 625 mg QAM ELDER Administration Latanoprost 1 drops 03/29/24 21:00 04/05/24 21:26 Latanoprost 0.005% Op Soln 2.5 Ml Btl OP 04/28/24 20:59 1 drops QPM ELDER Administration Magnesium Oxide 400 mg 04/03/24 09:00 04/06/24 08:43 Magnesium Oxide 400 Mg Tab PO 05/03/24 08:59 400 mg QAM ELDER Administration Melatonin 3 mg 03/29/24 19:26 04/04/24 20:37 Melatonin 3 Mg Tab PO 04/28/24 19:25 3 mg HS PRN Administration Insomnia Metoprolol Succinate 25 mg 04/03/24 09:00 04/06/24 08:37 Metoprolol Succ 25mg Ext Rel Tab PO 05/03/24 08:59 25 mg QAM ELDER Administration Mirtazapine 30 mg 03/29/24 21:00 04/05/24 21:25 Mirtazapine Tab 15 Mg Tab PO 04/28/24 20:59 30 mg HS ELDER Administration Nystatin 1 appln 04/03/24 22:39 04/06/24 01:39 Nystatin Powder 15gm Btl EXT 05/03/24 22:38 1 appln BID PRN Administration rash Polyethylene Glycol 17 gm 04/02/24 13:45 04/06/24 08:48 Polyethylene (Miralax) 17 Gm Pack PO 05/02/24 13:44 Not Given DAILY ELDER Pravastatin Sodium 40 mg 03/29/24 21:00 03/30/24 21:47 Pravastatin Sod 40 Mg Tab PO 04/28/24 20:59 40 mg HS ELDER Administration Rivaroxaban 20 mg 03/31/24 17:00 04/06/24 16:38 Rivaroxaban 20 Mg Tab PO 04/30/24 16:59 20 mg DAILY@1700 ELDER Administration Sacubitril/Valsartan 1 tab 04/02/24 21:00 04/06/24 08:40 Valsartan/Sacubitril 26/24mg Tab PO 05/02/24 20:59 1 tab BID ELDER Administration Sennosides 8.6 mg 03/29/24 21:00 04/05/24 21:26 Senna 8.6 Mg Tab PO 04/28/24 20:59 8.6 mg HS ELDER Administration Tamsulosin HCl 0.4 mg 03/30/24 09:00 04/06/24 08:43 Tamsulosin Hcl 0.4 Mg Cap PO 04/29/24 08:59 0.4 mg DAILY ELDER Administration Thiamine HCl 100 mg 03/31/24 09:00 04/06/24 08:42 Thiamine Hcl 100 Mg Tab PO 04/30/24 08:59 100 mg QAM ELDER Administration
[2024-04-07 06:27] LABS: BUN Creatinine Ratio 16.5 (10-20); Calcium 9.1 mg/dl (8.6-10.3); Creatinine Clr Calc Pharmacy 56.8 ml/min
[2024-04-07 06:32] LABS: Hematocrit (blood only) 36.6 % (42.0-52.0); Hemoglobin 11.4 g/dl (14.0-18.0); Mean Corpuscular Hemoglobin 30.7 pg (25.0-34.0); Mean Corpuscular Hgb Conc 31.1 g/dL (32.0-36.0); Mean Corpuscular Volume 98.7 fL (80.0-100.0); Mean Platelet Volume 10.7 fL (9.4-12.4); Platelet Count 239 K/uL (130-400); RDW Coefficient of Variation 16.8 % (11.5-14.5); RDW Standard Deviation 60.4 fL (36.4-46.3); Red Blood Count 3.71 M/uL (4.70-6.10); White Blood Count 8.19 K/ul (4.8-10.8)
[2024-04-07 07:35] VITALS: BP 158/82; PULSE 70; RESP 22; TEMP 97.3; O2SAT 92
--- NOTE | 2024-04-07 10:35 | Discharge Summary ---
Discharge Summary Date of Service April 07, 2024 Principal Dx & Hospital Course #1 = Principal Diagnosis (1) Ambulatory dysfunction: Patient recently d/c from [facility] to independent living at [facility] - reportedly fell while transferring from wheelchair to bed and was on the ground for approximately 12 hours CK level WNL on arrival [employer] WNL Micro results: Blood cultures: Enterococcus Faecium Repeat blood cultures 04/01: no growth 48 hours Knee fluid cultures: no growth to date PICC catheter tip: no growth to date Ortho consulted -s/p aspiration, knee does not seem to be the source CBC and BMP 04/07: stable. CXR 04/05: no acute changes. Patient continue with cough. Encouraged to use his prescribed prn cough syrup outpatient to aide w/ symptom relief. Vocal hoarseness likely related to cough. US guided line placed prior to discharge. (2) HFrEF (heart failure with reduced ejection fraction): home regimen: Imdur, Ranexa, Losartan, Metoprolol and Bumex - Bumex resumed 04/02 Echo (done for GP bacteremia) - EF 35-40%, global hypokinesis - prior EF 50-55 Cardiology consulted - switched to Entresto. Lisinopril D/xavi. - switched to metoprolol succinated 25mg qAM - stopped imdur and renexa, monitor for CP. - Jardiance 10mg started 04/03 - kidney function stable. (3) Anemia: Acute on Chronic - baseline seems to fluctuate between 10-13 Hgb on admission 10.8 --> 8.8 but has remained stable and uptrending - xarelto resumed CBC 04/07: hgb 11.4 Fecal Occult pending. AM CBC. (4) JEFFERY (acute kidney injury): BUN 30, creatinine 1.67 (baseline 1.11.2) on arrival Daughter reports that patient had JEFFERY due to cefepime use at [facility], which was switched to ertapenem on 03/18. Cr peaked at 2.5 at [facility] Received PO and IV fluids. Bumex resumed 04/02 JEFFERY resolved - monitor kidney function with restarting Jardiance BMP 04/07: creatinine WNL (5) Infection of prosthetic right knee joint: Right knee x-ray on arrival revealed soft tissue swelling and small to moderate right knee joint effusion ID note reviewed 04/05: Recommending daptomycin 900mg IV q24h, plan for 2 weeks from post line removal. (through 04/16/2024) weekly CBC, CMP, CK while on abx. Ertapenem 1g IV completed 04/06. Doxy held while on daptomycin - resume when IV abx completed No statins while on dapto - resume when completed TTE no valvular pathology but valves no well visualized Pt does have Stage 2 pressure injury to coccyx area - no signs of active infection US Guided line placed 04/07 Plan Palliative care met with patient 04/06 - he is to follow up outpatient. Neurontin was increased to 500mg TID from 400mg TID Discussed with Gaviota Adams DNP via [place] text. Updated son w/ discharged instructions 04/07. All questions answered at end of call. Admission HPI Per Admitting Provider Lowell is an 78-year-old male with PMH of MRSA infection, prosthetic right knee infection, CAD, CHF, sepsis, rhabdomyolysis, NSTEMI, atrial fibrillation, chronic venous stasis, peripheral neuropathy, and cellulitis. He presented via EMS on 03/29 after sustaining a fall while transferring from his wheelchair to bed last night at [facility]. Patient reports that the fall occurred around midnight and he was on the ground until approximately 10 AM when home health came for a blood draw. He reports that he had a "controlled" fall and did not injure anything. No head strike. No LOC. He did not call for help but he did not want to "bother anyone". Patient reports generalized weakness x 1 month. He does have remote history of a right knee prosthetic infection in February which required [facility] to [facility]. He is currently taking ertapenem through his PICC line daily for this. Daughter reports that he recently had an JEFFERY after being given cefepime at [facility], and was switched from cefepime to ertapenem on 03/17. Patient left inpatient rehab on Thursday and went to independent living at [facility]. He reports he has had dark urine, and increased urinary frequency lately, but daughter does note that he has had increased diuretic use due to leg swelling over the past few weeks. Daughter also noticed increased cold intolerance; denies history of thyroid issues. Patient's vitals are stable at time of admission. ED course: NSS 500 mL IV Ertapenem 1000 mg IV Magnesium sulfate 1 g IV Magnesium oxide 400 mg p.o. ROS: Patient endorses generalized fatigue, new cold intolerance, dry superficial rash noted on the abdomen/flank/back x 2-3 weeks, dark urine, increased urinary frequency, and leg swelling. Patient denies fever, chills, night sweats, dizziness/lightheadedness with movements, headache, chest pain, chest palpitations, pleuritic CP, SOB, cough, abdominal pain, N/V/D, burning with urination, or blood in the urine or stool. Discharge Exam Constitutional WD/WN, vitals as above Eyes PERRL, conjunctivae normal, anicteric sclerae Respiratory lung sounds diminished but clear Cardiovascular RRR, no murmur, no edema Skin no rashes, warm and dry Psychiatric A+Ox3, euthymic affect Discharge Plan Discharge Items Patient Disposition: Transfer Inpatient Rehab Fac Reason For Visit: AMBULATORY DYSFUNCTION, AWAITING PLACEMENT Discharge Diagnosis: Bacteremia Condition on Discharge: Fair Activity: Resume your previous activity Non-emergency contact: Primary Care Provider Call non-emergency contact if: you have any medication questions, your symptoms worsen and you have a fever Follow-up/Referrals: Danny Soliman DO [Primary Care Provider] - Diet: Regular Addtl Attending Provider Instructions: Mr. Palacio, You were recently hospitalized for a fall and were found to have bacteria in your blood. You were seen by infectious disease provider who has recommended IV antibiotics. Please see recommendations below regarding your discharge. 1. Please take IV Vancomycin once daily through . This should be given around 11:30 each day. You will require weekly labs on this antibiotics including a CBC, CMP, CK Please hold your Doxycycline and Pravastatin while on this medication. - these medications may be resumed on 04/17/2024 after completion of the antib iotic. 2. Please follow up with infectious disease outpatient. 3. Please follow up with orthopedics outpatient. 4. Please follow up with cardiology outpatient. 5. Please follow up with Palliative care outpatient. 6. 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 Lisinopril has been discontinued. Your Metoprolol has been changed to Metoprolol succinate 25mg daily in the morning. Imdur and Reneza has been discontinued. You were started on Entresto and Jardiance. 7. Please follow up with your PCP within 1 week of discharge. If you develop any fevers, chills, shortness of breath, chest pain please report back to the ER for further care. Sincerely, Swetha Her PA-C Pending Studies at Discharge: No Stand-Alone Forms: My [facility] Skilled Items Patient informed of condition?: Yes DNR: No Discharge Level of Care: Acute rehab Communicable Disease: Yes Discharge Prognosis: Stable Lines: US Guided Peripheral IV Urinary Catheter: No Medications and DC Order Prescriptions: New diphenhydramine HCl [Benadryl] 25 mg Capsule 25 mg PO Q6H PRN (Reason: itching) Qty: 10 0RF gabapentin 100 mg Capsule 100 mg PO TID Qty: 90 0RF metoprolol succinate 25 mg Tablet Extended Release 24 Hr 25 mg PO QAM Qty: 30 0RF Jardiance 10 mg Tablet 10 mg PO DAILY Qty: 30 0RF Entresto 24-26 mg Tablet 1 tab PO BID Qty: 30 0RF daptomycin 500 mg recon soln 900 mg IV DAILY 10 Days Rx Instructions: administer over 30 mins Continued Rinvoq 15 mg tablet extended release 24 hr 15 mg PO DAILY Hold Instructions: Resume on 02/04/24. Rx Instructions: Currently on hold, restart on 02/04/24: Original Directions: 15mg by mouth daily gabapentin 400 mg capsule 400 mg PO TID 30 Days Qty: 90 5RF duloxetine 60 mg capsule,delayed release(DR/EC) 60 mg PO QAM Qty: 90 3RF Xarelto 20 mg tablet 20 mg PO DAILY Rx Instructions: must administer with evening meal start 3 days after last eliquis dose. aspirin [Adult Low Dose Aspirin] 81 mg tablet,delayed release (DR/EC) 81 mg PO QAM Hold Instructions: Resume on 02/23/23. until PCP/surgery followup ukkybtbf-ngukgne-hbgz-lutein Tablet 1 tab PO QAM Adult 50 Plus Probiotic 4 billion cell capsule 6,000 mmu cells PO QAM Rx Instructions: administer with a meal cyanocobalamin (vitamin B-12) 500 mcg Tablet 1,000 mcg PO QAM Qty: 30 0RF thiamine HCl (vitamin B1) 100 mg tablet 100 mg PO QAM nitroglycerin 0.4 mg Tablet, Sublingual 0.4 mg sublingual DIRECTED PRN (Reason: chest pin) vitamin E 268 mg (400 unit) Capsule 268 mg PO DAILY Qty: 0 Rx Instructions: strength not listed mirtazapine 30 mg tablet 30 mg PO HS esomeprazole magnesium [Nexium] 40 mg capsule,delayed release(DR/EC) 40 mg PO HS cholecalciferol (vitamin D3) 10 mcg (400 unit) Tablet 20 mcg PO DAILY acetaminophen 325 mg tablet 975 mg PO Q8H PRN (Reason: mild pain,fever, or headache) ferrous sulfate 325 mg (65 mg iron) tablet 325 mg PO DAILY bumetanide 1 mg tablet 1 mg PO DAILY latanoprost 0.005 % Drops 1 drp OPHTHALMIC (EYE) QPM Rx Instructions: into both eyes hydrocodone-acetaminophen 5-325 mg Tablet 1 tab PO Q4H PRN (Reason: Pain (Scale Score 4-6)) tamsulosin 0.4 mg Capsule 0.4 mg PO DAILY codeine-guaifenesin 10-100 mg/5 mL liquid 10 ml PO Q4H PRN (Reason: Cough) nystatin 100,000 unit/gram powder 1 applic TOPICAL DAILY B Complex Plus Vitamin C [id number] mg Capsule 1 cap PO DAILY melatonin 5 mg Tablet 5 mg PO HS sennosides 8.6 mg Tablet 8.6 mg PO HS omega 3-ffc-uge-fish oil 900-1,400 mg Capsule,Delayed Release(Dr/Ec) 1 cap PO DAILY clotrimazole 10 mg bella 10 mg PO DIRECTED Held pravastatin 40 mg tablet 40 mg PO HS Hold Instructions: Resume on 02/09/24. Hold while on daptomycin Rx Instructions: TAKE 1 TABLET BY MOUTH ONCE DAILY doxycycline hyclate 100 mg capsule 100 mg PO BID Hold Instructions: Resume on 04/17/24. Hold until completion of daptomycin Discontinued olmesartan 5 mg tablet 5 mg PO DAILY 90 Days Qty: 90 3RF metoprolol tartrate 25 mg tablet 12.5 mg PO BID 30 Days Qty: 30 5RF Rx Instructions: TAKE 1/2 TABLET BY MOUTH TWICE DAILY FOR YOUR HEART AND HIGH BLOOD PRESSURE isosorbide mononitrate 60 mg tablet extended release 24 hr 60 mg PO QAM ranolazine 500 mg tablet extended release 12 hr 500 mg PO BID Discharge Orders: Discharge Order (Routine); Ordered 04/07/24 Ordered By: Swetha Her Admission Data Admit Date/Time: 03/30/24 17:47 Attending Provider: Sadiq Membreno Admit Provider: Danny Kim Primary Care Provider: Danny Soliman Other Providers: [facility]; [facility]; [place]; Shaheen Amor; Franc Ramos; Rupert Medina; Blake Levy; Roma Prakash; Mercedes Parra; Alejandro Robb; Alvin Mobley; Hermes Tamayo; eHrmes Marcial; Amarilis Valverde; Marcela Pimentel; Radha Macias; Louis Weaver; Zuleyma Sams; Octavio Platt; Campbell Garcia; Yousif Gloria; Indio Beauchamp; Gaviota Hurt; Haylee Salguero; Esme Huston; Carmen Joy; Gavi Rich; Annia Devine; Carmen Hidalgo; Kelli Middleton at [facility] Stay Data Consultations 03/29/24 14:47 ED Decision to Admit Stat 03/31/24 09:32 Consult Orthopedic Surgery Routine 03/31/24 16:06 Consult Infectious Diseases Routine 04/02/24 09:52 Consult Cardiology Routine 04/05/24 12:36 Consult Palliative Care Routine Pending Results Patient Have Any Pending Studies at Discharge: No Discharge Instructions Given to Patient (Per Discharging Provider) Mr. Palacio, Karthik were recently hospitalized for a fall and were found to have bacteria in your blood. You were seen by infectious disease provider who has recommended IV antibiotics. Please see recommendations below regarding your discharge. 1. Please take IV Vancomycin once daily through . This should be given around 11:30 each day. You will require weekly labs on this antibiotics including a CBC, CMP, CK Please hold your Doxycycline and Pravastatin while on this medication. - these medications may be resumed on 04/17/2024 after completion of the antibiotic. 2. Please follow up with infectious disease outpatient. 3. Please follow up with orthopedics outpatient. 4. Please follow up with cardiology outpatient. 5. Please follow up with Palliative care outpatient. 6. 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 Lisinopril has been discontinued. Your Metoprolol has been changed to Metoprolol succinate 25mg daily in the morning. Imdur and Reneza has been discontinued. You were started on Entresto and Jardiance. 7. Please follow up with your PCP within 1 week of discharge. If you develop any fevers, chills, shortness of breath, chest pain please report back to the ER for further care. Sincerely, Swetha Her PA-C Total Time Total Time Spent Total Time Spent (In Minutes): 50 Total Time Includes: Examination of the Patient, Discharge Planning and Medication Reconciliation Coding Level of Care Code 78924 INP/OBS DISCH >30 MIN Diagnoses Ambulatory dysfunction R26.2 HFrEF (heart failure with reduced ejection fraction) I50.20 Anemia D64.9 Anemia type: unspecified type JEFFERY (acute kidney injury) N17.9 Infection of prosthetic right knee joint T84.53XA
== END 2024-04-07 11:22 | DRG 872 ==
LOC: ED 12:27 → EDINP 12:27 → SUATTDRO 16:30 → 3N 19:27 → 2E 03-30 18:16 → SUATTDRO 03-30 18:17

== ENCOUNTER 2024-05-18 11:43 | Inpatient (IN) ==
--- NOTE | 2024-05-18 11:58 | Emergency Department Note ---
Impression & Plan Atrial flutter Admission ED Provider Note HPI: History obtained from patient. The patient is a 78-year-old gentleman with complex past medical history including peripheral vascular disease, atrial fibrillation, MRSA infection, rheumatoid arthritis, heart failure with reduced ejection fraction, presents the emergency department with a chief complaint of dyspnea and atrial fibrillation with RVR noted in the outpatient clinic today at the [facility]. Patient states he is felt some dyspnea for about the past week and a half, he states this has been fairly consistent. Patient denies any chest pain. Patient states he went to the clinic today for a pain management appointment and was noted to be in atrial fibrillation with RVR and therefore was sent to the ER for further evaluation. Patient denies any recent fevers, on arrival here to the ED the patient is tachycardic in the 140s but otherwise hemodynamically stable and he is saturating well on room air. ROS: - Per HPI Differential Diagnosis: Atrial fibrillation with RVR, SVT, ventricular tachycardia, acute coronary syndrome, acute CHF exacerbation, pulmonary edema, pneumonia, amongst other potential pathologies. *Outpatient medications and allergy history reviewed. PE: General: Alert HEENT: Normocephalic, trachea midline Eyes: Extraocular eye movement is intact, no scleral erythema Pulmonary: Clear to auscultation bilaterally, no wheezing Cardio: Tachycardic rate with regular rhythm GI: Abdomen is soft to palpation : No suprapubic tenderness MSK: No evidence of trauma or malformation of the extremities, no edema Skin: No evidence of rash Neuro: Alert, no focal deficits Psychiatric: Cooperative INDEPENDENT INTERPRETATIONS: alarm security or surveillance monitor: (As interpreted by myself): - An order was placed for continuous cardiac monitoring - Patient was noted to be in atrial flutter with a rate of 141 EKG: (As interpreted by myself): Rate: 145 Rhythm: Probable atrial flutter Intervals: Within normal limits ST changes: No ST elevation Time: 1149 EKG #2: (As interpreted by myself): Rate: 128 Rhythm: Atrial flutter with 2-1 block Intervals: Within normal limits ST changes: No ST elevation Time: 1556 Chest x-ray: (As interpreted by myself): No focal infiltrate Interventions provided in ED: -IV diltiazem bolus, IV metoprolol, IV diltiazem drip, normal saline bolus Medical Decision Making: Patient presented to the emergency department with apparent atrial flutter with dyspnea, IV was established and lab work obtained, patient was placed on surveillance system monitor. Patient is saturating well on room air on arrival, he denies any chest pain. Lab work shows a mild leukocytosis 11.06, hemoglobin is stable at 13.5, platelet count is normal, CMP does not show any evidence of any critical findings, BNP is mildly elevated at 304 however chest x-ray does not show any evidence of overt fluid overload. Initial high-sensitivity troponin is elevated at 88.7 which I suspect is related to demand ischemia. This is slightly above the patient's normal baseline. Repeat troponin is slightly higher at 92.5. Low suspicion for ACS given that the patient does not have any chest pain, I do not see any acute ischemic changes on patient's EKGs although he did remain in atrial flutter despite IV diltiazem and IV metoprolol. He has not had a fever, his blood pressures remained stable, low suspicion for infection/sepsis. Given the patient's tachycardia, I did discuss his presentation with the on-call hospitalist, Dr. Amor, and the patient will be admitted on diltiazem drip for further management of atrial flutter with elevated rates. Consultants/Discussions held with other healthcare providers: -Hospitalist, Dr. Amor Disposition discussion held by myself with: -Patient * CRITICAL CARE TIME: (55) minutes -Management of tachyarrhythmia/atrial flutter with 2-1 block requiring IV rate control medications to be given intravenously, interpretation of multiple EKGs and diagnostic studies, time spent at the bedside, discussion with other physicians and arrangement of admission. Diagnosis: 1. Atrial flutter, acute 2. Elevated high-sensitivity troponin level, acute 3. Elevated BNP, acute Disposition: Admission Jae Wiley DO Emergency Medicine Past Med/Surg History Problem List (Updated 05/18/24 @ 17:21 by Jae Wiley DO) Atrial flutter (Acute) Atrial fibrillation with RVR Open wound of knee Pressure ulcer of foot, stage 3 Venous ulcers of both lower extremities Pain associated with wound PVD (peripheral vascular disease) Palliative care by specialist Advanced care planning/counseling discussion Back pain VRE bacteremia Ambulatory dysfunction Infection of prosthetic right knee joint JEFFERY (acute kidney injury) (Acute) Weakness (Acute) Fall (Acute) Anemia (Acute) Hypomagnesemia (Acute) Hypotension (Acute) Bilateral cellulitis of lower leg (Acute) Peripheral neuropathy Atrial fibrillation Chronic venous stasis History of MRSA infection (Acute) Elevated troponin (Acute) Cellulitis of both feet (Acute) Rheumatoid arthritis Open wound of foot Open wound of right hand (Acute) Open wound of left lower extremity (Acute) Chronic wound Sepsis secondary to UTI Lymphangitis of lower extremity Hypomagnesemia (Acute) Fever (Acute) Open wound of left upper arm (Acute) Open wound of left arm with tendon injury Gram-negative bacteremia Cellulitis of right lower extremity (Acute) Sepsis due to skin infection Generalized weakness (Acute) Elevated procalcitonin (Acute) Acute kidney injury superimposed on chronic kidney disease (Acute) Sepsis (Acute) Skin tear of right upper extremity (Acute) Open wound of left foot (Acute) Open wound of right foot (Acute) Skin tear of right hand without complication (Acute) Venous ulcer of left leg (Acute) Traumatic open wound of right lower leg (Acute) Elevated LFTs MRSA bacteremia Dislocation, hip closed (Acute) Dislocation, hip, posterior Rotator cuff arthropathy of both shoulders Abrasion of right knee (Acute) Pain of right hip Prophylactic antibiotic History of sepsis Left shoulder pain Acquired foot deformity (Chronic) Traumatic wound (Acute) Pressure ulcer of left foot, stage 3 (Acute) Abnormal ankle brachial index (Acute) Right knee pain Cellulitis of knee, right (Acute) Non-ST elevation HI (NSTEMI) (Acute) Leukocytosis (Acute) Sepsis (Acute) Myoclonus Cervical radiculopathy Neuropathy Weakness On amiodarone therapy Weakness of right hip DVT prophylaxis Constipation Acute on chronic diastolic congestive heart failure Sepsis following procedure Wheezing Rhabdomyolysis MRSA infection History of CHF (congestive heart failure) Visual disturbance Hyponatremia Hypotension Acute metabolic encephalopathy Abdominal wall abscess (Acute) HFrEF (heart failure with reduced ejection fraction) EF 40% Mar 2022, improved 55-60% August 2022 Lumbar stenosis Osteoarthritis of right knee Anxiety and depression Hypertension Anemia (Acute) Coronary artery disease Pre-operative cardiovascular examination, myocardial ischemia Atherogenic dyslipidemia Fall Lumbar radiculopathy Low back pain Lower extremity weakness Degenerative spondylolisthesis Parainfluenza virus bronchitis Chronic low back pain Scoliosis of lumbar region due to degenerative disease of spine in adult Dislocation of hip, right, closed (Acute) Septic joint of right knee joint COVID-19 (Acute) Incisional hernia Incarcerated intra-abdominal hernia (Acute) Abdominal pain (Acute) Adjustment disorder with mixed anxiety and depressed mood Sepsis (Acute) Elevated lactic acid level (Acute) Medical History Infected hardware in right leg Chronic infection of right knee UTI (urinary tract infection) Severe sepsis Venous ulcer of right leg Venous stasis ulcers of both lower extremities Idiopathic polyneuropathy History of immunosuppressive therapy Heart failure with preserved ejection fraction GERD (gastroesophageal reflux disease) Sepsis Septicemia due to Streptococcus pneumoniae Respiratory failure with hypoxia Hypomagnesemia Pneumonia Benign essential hypertension Lumbar stenosis Hx of staphylococcal infection 03/2022, w/"bacterial infection" at the same, in the rt. knee, occurrred during atrial fibrillation episode. "when he woke up, he couldn't walk." Atrial fibrillation episode occurred in 03/2022, taken to [facility] in [place], admitted to ICU for 1-2 weeks (was not intubated, but wasn't "awake either"), then to cardiac unit, then to rehab at [facility]; f/u dr. guerra in [place]>will be starting to see a loom tuner at [facility] 2nd week of 08/2022 Myocardial Infarction "a silent one, 2019" Sleep apnea no device Surgical History Status post revision of total replacement of right knee Hx of Achilles tendon repair rt. Hx of knee surgery rt. patellar tendon repair Hx of rotator cuff surgery bilateral Hx of total knee replacement lt. Hx of total hip arthroplasty rt. History of colostomy reversal History of bowel resection for diverticulitis; w/colostomy placement for 3-4 months Hx of hernia repair near former colostomy site History of esophagogastroduodenoscopy (EGD) Hx of colonoscopy Last Colonoscopy 08/14/22, repeat 3 years in 2025 Hx of bilateral cataract extraction History of heart artery stent ~3 years ago, x2 stents, done in [place]; f/u dr guerra, [place]>will be seeing new cardio at [facility] 2nd week of August 2022. History of cardiac cath ~3 years ago, SOB and "felt like throat was constricting", had "silent heart attack", x2 stents, done in [place] Family History Grandmother (Maternal) Diabetes Daughter Diabetes Father Suicide Hypertension Denies family history of Ovarian cancer Prostate cancer Myocardial infarction Breast cancer Lung cancer Colorectal cancer Stroke Social History Smoking Status: Never smoker Second Hand Exposure: No; Do You Dip or Chew Tobacco: No; Hx Alcohol Use: Yes Alcohol type: wine Alcohol Intake Frequency: 4 or More x per/Week Hx Substance Use: No Preferred Language: Zimbabwean Communication Ability: Effective Visual Impairment: Limited Hearing Ability: Normal Filament Coil Winder Required: No Beliefs That Will Affect Care: None marital status: Single Current Living Situation: Other Current Living Situation Comment: Independent living facility current occupational status: retired How many Children do You have: 2 Feels Safe at Home: Yes Childhood Exposure to Second-Hand Smoke: Yes Diet: regular caffeine: Yes Dental Care, Regularly: Yes Physical Activity Frequency: Does not Exercise Seatbelt Use: always Sunscreen Use: Yes Assistive Devices: Glasses, Special Shoe, Walker and Wheelchair Allergies Allergies Allergy/AdvReac Type Severity Reaction Status Date / Time cat dander Allergy Severe CAT Verified 05/17/24 13:58 HAIR---Swelling of Lip/Tongue/Throat Home Meds Home Medications Medication Instructions Recorded Confirmed aspirin 81 mg tablet,delayed 81 mg PO [facility] 08/07/22 05/18/24 release (Adult Low Dose Aspirin) xudfensa-giobimy-hsvp-lutein tablet 1 tab PO QAM 08/07/22 05/18/24 thiamine HCl (vitamin B1) 100 mg 100 mg PO QAM 02/05/23 05/18/24 tablet rivaroxaban 20 mg tablet (Xarelto) 20 mg PO DAILY 11/19/23 05/18/24 sennosides 8.6 mg tablet 8.6 mg PO BID 12/15/23 05/18/24 cholecalciferol (vitamin D3) 10 20 mcg PO DAILY 01/21/24 05/18/24 mcg (400 unit) tablet mirtazapine 30 mg tablet 30 mg PO HS 01/21/24 05/18/24 nitroglycerin 0.4 mg sublingual 0.4 mg sublingual DIRECTED PRN 01/21/24 05/18/24 tablet chest pin pravastatin 40 mg tablet 40 mg PO HS 01/21/24 05/18/24 vitamin E 268 mg (400 unit) capsule 268 mg PO DAILY ##0 01/21/24 05/18/24 acetaminophen 325 mg tablet 975 mg PO Q8H PRN mild pain,fever, 01/26/24 05/18/24 or headache omega 2-vtp-dwr-fish oil 900 1 cap PO DAILY 02/01/24 05/18/24 mg-1,400 mg capsule,delayed release doxycycline hyclate 100 mg capsule 100 mg PO BID 03/29/24 05/18/24 latanoprost 0.005 % eye drops 1 drp OPB QPM 03/29/24 05/18/24 nystatin 100,000 unit/gram topical 1 applic topical DAILY 03/29/24 05/18/24 powder vitamin B comp and C no.3 15 mg-10 1 cap PO DAILY 03/29/24 05/18/24 mg-50 mg-5 mg-300 mg capsule (B Complex Plus Vitamin C) arginine 7 gram-glutamine 7 1 ea PO BID 05/18/24 05/18/24 gram-calcium HMB 1.5 gram oral powder pack (Dom) bumetanide 1 mg tablet 1 mg PO DAILY 05/18/24 05/18/24 folic acid 1 mg tablet 1 mg PO DAILY 05/18/24 05/18/24 melatonin 3 mg tablet 6 mg PO HS 05/18/24 05/18/24 omeprazole 20 mg tablet,delayed 20 mg PO DAILY 05/18/24 05/18/24 release Previous Rx's Medication Instructions Recorded cyanocobalamin (vitamin B-12) 500 1,000 mcg (2 x 500 mcg) PO QAM #30 01/18/23 mcg tablet tabs duloxetine 60 mg capsule,delayed 60 mg PO QAM #90 caps 10/29/23 release diphenhydramine HCl 25 mg capsule 25 mg PO Q6H PRN itching #10 caps 04/07/24 (Benadryl) metoprolol succinate 25 mg 25 mg PO QAM #30 tabs 04/07/24 tablet,extended release 24 hr empagliflozin 10 mg tablet 10 mg PO DAILY #90 tabs 05/11/24 (Jardiance) ferrous sulfate 325 mg (65 mg 325 mg PO DAILY #90 tabs 05/11/24 iron) tablet sacubitril 24 mg-valsartan 26 mg 1 tab PO BID #180 tabs 05/11/24 tablet (Entresto) tamsulosin 0.4 mg capsule 0.4 mg PO DAILY #90 caps 05/11/24 gabapentin 600 mg tablet 600 mg PO TID neuropathy from 05/12/24 severe PVD wounds 1 month #90 tabs oxycodone 5 mg tablet See Rx Instructions PO Q6H PRN 05/12/24 pain 1 month #100 tabs Results & Data (ED) Vital Signs Vital Signs - 24 hr 05/18/24 11:49 05/18/24 11:50 05/18/24 11:54 Temperature 36.8 C 36.8 C Temperature Source Oral Oral Pulse Rate 142 H Pulse Rate [Apical] 142 H Pulse Rate from SpO2 Sensor Respiratory Rate 13 13 Respiratory Effort / Characteristics Non-Labored Non-Labored Respiratory Depth Normal Normal Blood Pressure 104/79 104/79 Blood Pressure [Right Arm] 104/79 Blood Pressure Mean 87 91 Blood Pressure Mean [Right Arm] 87 Blood Pressure Position Semi-fowlers Blood Pressure Position [Right Arm] Semi-fowlers Pulse Oximetry 100 97 Oxygen Delivery Method Room Air Room Air Sepsis Recent Fever Within 48 Hours No Sepsis New/Unexplained Change in Mental Status N/A Sepsis Action Taken by Nursing No Action Required 05/18/24 11:57 05/18/24 11:58 05/18/24 12:03 Temperature Temperature Source Pulse Rate 143 H 140 H Pulse Rate [Apical] Pulse Rate from SpO2 Sensor 141 H 142 H Respiratory Rate 18 20 Respiratory Effort / Characteristics Respiratory Depth Blood Pressure Blood Pressure [Right Arm] Blood Pressure Mean Blood Pressure Mean [Right Arm] Blood Pressure Position Blood Pressure Position [Right Arm] Pulse Oximetry 100 100 99 Oxygen Delivery Method Room Air Sepsis Recent Fever Within 48 Hours Sepsis New/Unexplained Change in Mental Status Sepsis Action Taken by Nursing 05/18/24 12:08 05/18/24 12:09 05/18/24 12:24 Temperature Temperature Source Pulse Rate 143 H 138 H Pulse Rate [Apical] Pulse Rate from SpO2 Sensor 138 H Respiratory Rate 18 Respiratory Effort / Characteristics Respiratory Depth Blood Pressure 111/82 Blood Pressure [Right Arm] Blood Pressure Mean 91 Blood Pressure Mean [Right Arm] Blood Pressure Position Blood Pressure Position [Right Arm] Pulse Oximetry 95 Oxygen Delivery Method Sepsis Recent Fever Within 48 Hours Sepsis New/Unexplained Change in Mental Status Sepsis Action Taken by Nursing 12/11/24 12:30 05/18/24 12:33 05/18/24 12:42 Temperature Temperature Source Pulse Rate 137 H 137 H Pulse Rate [Apical] Pulse Rate from SpO2 Sensor 137 H 136 H Respiratory Rate 16 22 Respiratory Effort / Characteristics Respiratory Depth Blood Pressure 106/81 Blood Pressure [Right Arm] Blood Pressure Mean 93 Blood Pressure Mean [Right Arm] Blood Pressure Position Blood Pressure Position [Right Arm] Pulse Oximetry 96 97 Oxygen Delivery Method Sepsis Recent Fever Within 48 Hours Sepsis New/Unexplained Change in Mental Status Sepsis Action Taken by Nursing 05/18/24 12:51 05/18/24 12:57 05/18/24 13:00 Temperature Temperature Source Pulse Rate 136 H 137 H Pulse Rate [Apical] Pulse Rate from SpO2 Sensor 137 H 139 H Respiratory Rate 19 10 L Respiratory Effort / Characteristics Respiratory Depth Blood Pressure 115/93 Blood Pressure [Right Arm] Blood Pressure Mean 97 Blood Pressure Mean [Right Arm] Blood Pressure Position Blood Pressure Position [Right Arm] Pulse Oximetry 96 98 Oxygen Delivery Method Sepsis Recent Fever Within 48 Hours Sepsis New/Unexplained Change in Mental Status Sepsis Action Taken by Nursing 05/18/24 13:21 05/18/24 13:27 05/18/24 13:30 Temperature Temperature Source Pulse Rate 130 H 132 H Pulse Rate [Apical] Pulse Rate from SpO2 Sensor Respiratory Rate 22 19 Respiratory Effort / Characteristics Respiratory Depth Blood Pressure 106/86 Blood Pressure [Right Arm] Blood Pressure Mean 98 Blood Pressure Mean [Right Arm] Blood Pressure Position Blood Pressure Position [Right Arm] Pulse Oximetry Oxygen Delivery Method Sepsis Recent Fever Within 48 Hours Sepsis New/Unexplained Change in Mental Status Sepsis Action Taken by Nursing 05/18/24 13:30 05/18/24 13:33 05/18/24 13:42 Temperature Temperature Source Pulse Rate 134 H 132 H Pulse Rate [Apical] Pulse Rate from SpO2 Sensor Respiratory Rate 16 19 Respiratory Effort / Characteristics Respiratory Depth Blood Pressure 106/86 Blood Pressure [Right Arm] Blood Pressure Mean 98 Blood Pressure Mean [Right Arm] Blood Pressure Position Blood Pressure Position [Right Arm] Pulse Oximetry Oxygen Delivery Method Sepsis Recent Fever Within 48 Hours Sepsis New/Unexplained Change in Mental Status Sepsis Action Taken by Nursing 05/18/24 13:49 05/18/24 13:51 05/18/24 14:00 Temperature Temperature Source Pulse Rate 135 H Pulse Rate [Apical] 135 H Pulse Rate from SpO2 Sensor Respiratory Rate 16 24 Respiratory Effort / Characteristics Respiratory Depth Blood Pressure 110/86 Blood Pressure [Right Arm] 106/86 Blood Pressure Mean 92 Blood Pressure Mean [Right Arm] 92 Blood Pressure Position Blood Pressure Position [Right Arm] Pulse Oximetry 100 Oxygen Delivery Method Room Air Sepsis Recent Fever Within 48 Hours Sepsis New/Unexplained Change in Mental Status Sepsis Action Taken by Nursing 05/18/24 14:00 05/18/24 14:27 05/18/24 14:30 Temperature Temperature Source Pulse Rate 134 H 133 H 132 H Pulse Rate [Apical] Pulse Rate from SpO2 Sensor 134 H 131 H Respiratory Rate 17 19 Respiratory Effort / Characteristics Respiratory Depth Blood Pressure 122/100 Blood Pressure [Right Arm] Blood Pressure Mean Blood Pressure Mean [Right Arm] Blood Pressure Position Blood Pressure Position [Right Arm] Pulse Oximetry 99 96 Oxygen Delivery Method Sepsis Recent Fever Within 48 Hours Sepsis New/Unexplained Change in Mental Status Sepsis Action Taken by Nursing 05/18/24 14:30 05/18/24 14:36 05/18/24 14:45 Temperature Temperature Source Pulse Rate 131 H 132 H Pulse Rate [Apical] Pulse Rate from SpO2 Sensor 133 H 132 H Respiratory Rate 15 15 Respiratory Effort / Characteristics Respiratory Depth Blood Pressure 122/100 Blood Pressure [Right Arm] Blood Pressure Mean 104 Blood Pressure Mean [Right Arm] Blood Pressure Position Blood Pressure Position [Right Arm] Pulse Oximetry 98 99 Oxygen Delivery Method Sepsis Recent Fever Within 48 Hours Sepsis New/Unexplained Change in Mental Status Sepsis Action Taken by Nursing 05/18/24 14:50 05/18/24 14:50 05/18/24 14:51 Temperature Temperature Source Pulse Rate 131 H Pulse Rate [Apical] Pulse Rate from SpO2 Sensor 133 H Respiratory Rate 22 Respiratory Effort / Characteristics Respiratory Depth Blood Pressure 120/92 120/92 Blood Pressure [Right Arm] Blood Pressure Mean 95 95 Blood Pressure Mean [Right Arm] Blood Pressure Position Blood Pressure Position [Right Arm] Pulse Oximetry 98 Oxygen Delivery Method Sepsis Recent Fever Within 48 Hours Sepsis New/Unexplained Change in Mental Status Sepsis Action Taken by Nursing 05/18/24 15:00 05/18/24 15:09 05/18/24 15:15 Temperature Temperature Source Pulse Rate 132 H 132 H Pulse Rate [Apical] 130 H Pulse Rate from SpO2 Sensor 132 H 137 H Respiratory Rate 19 15 17 Respiratory Effort / Characteristics Respiratory Depth Blood Pressure Blood Pressure [Right Arm] 120/92 Blood Pressure Mean Blood Pressure Mean [Right Arm] 101 Blood Pressure Position Blood Pressure Position [Right Arm] Pulse Oximetry 98 96 90 Oxygen Delivery Method Room Air Sepsis Recent Fever Within 48 Hours Sepsis New/Unexplained Change in Mental Status Sepsis Action Taken by Nursing 05/18/24 15:15 05/18/24 15:21 05/18/24 15:39 Temperature Temperature Source Pulse Rate 130 H 128 H Pulse Rate [Apical] Pulse Rate from SpO2 Sensor 130 H Respiratory Rate 13 20 Respiratory Effort / Characteristics Respiratory Depth Blood Pressure 111/94 Blood Pressure [Right Arm] Blood Pressure Mean 99 Blood Pressure Mean [Right Arm] Blood Pressure Position Blood Pressure Position [Right Arm] Pulse Oximetry 97 Oxygen Delivery Method Sepsis Recent Fever Within 48 Hours Sepsis New/Unexplained Change in Mental Status Sepsis Action Taken by Nursing 05/18/24 15:51 05/18/24 15:57 05/18/24 16:01 Temperature Temperature Source Pulse Rate 128 H 130 H Pulse Rate [Apical] Pulse Rate from SpO2 Sensor Respiratory Rate 13 Respiratory Effort / Characteristics Respiratory Depth Blood Pressure 133/93 Blood Pressure [Right Arm] Blood Pressure Mean 118 Blood Pressure Mean [Right Arm] Blood Pressure Position Blood Pressure Position [Right Arm] Pulse Oximetry Oxygen Delivery Method Sepsis Recent Fever Within 48 Hours Sepsis New/Unexplained Change in Mental Status Sepsis Action Taken by Nursing 05/18/24 16:06 05/18/24 16:18 05/18/24 16:18 Temperature Temperature Source Pulse Rate 131 H 131 H Pulse Rate [Apical] Pulse Rate from SpO2 Sensor 132 H Respiratory Rate 16 16 Respiratory Effort / Characteristics Respiratory Depth Blood Pressure 116/93 Blood Pressure [Right Arm] Blood Pressure Mean 98 Blood Pressure Mean [Right Arm] Blood Pressure Position Blood Pressure Position [Right Arm] Pulse Oximetry 96 Oxygen Delivery Method Sepsis Recent Fever Within 48 Hours Sepsis New/Unexplained Change in Mental Status Sepsis Action Taken by Nursing Laboratory Data 05/18/24 12:05 05/18/24 12:05 Lab Results 05/18/24 05/18/24 Range/Units 12:05 14:15 WBC 11.06 H (4.8-10.8) K/ul RBC 4.39 L (4.70-6.10) M/uL Hgb 13.5 L (14.0-18.0) g/dl Hct 42.2 (42.0-52.0) % MCV 96.1 (80.0-100.0) fL MCH 30.8 (25.0-34.0) pg MCHC 32.0 (32.0-36.0) g/dL RDW Std Deviation 69.0 H (36.4-46.3) fL RDW Coeff of Sammie 19.5 H (11.5-14.5) % Plt Count 212 (130-400) K/uL MPV 9.8 (9.4-12.4) fL Immature Gran % (Auto) 1.0 % Neut % (Auto) 76.9 % Lymph % (Auto) 9.7 % [place] % (Auto) 10.9 % Eos % (Auto) 1.4 % Baso % (Auto) 0.1 % Neut # (Auto) 8.50 H (1.40-6.50) K/uL Lymph # (Auto) 1.07 L (1.20-3.40) K/uL [place] # (Auto) 1.21 H (0.11-0.59) K/uL Eos # (Auto) 0.16 (0.00-0.50) K/uL Baso # (Auto) 0.01 (0.00-0.20) K/uL Immature Gran # (Auto) 0.11 (0.01-0.20) K/uL PT 11.3 (9.0-12.0) Seconds INR 1.0 (0.9-1.1) Sodium 138 (136-145) mmol/L Potassium 5.1 (3.5-5.1) mmol/L Chloride 104 (98-107) mmol/L Carbon Dioxide 30 (21-32) mmol/L Anion Gap 4 (3-11) BUN 47 H (6-23) mg/dl Creatinine 1.21 (0.6-1.4) mg/dl Est Cr Clr Drug Dosing 63.5 ml/min eGFR 60.53 BUN/Creatinine Ratio 38.8 H (10-20) Glucose 107 H (70-99(Fasting)) mg/dl Calcium 9.2 (8.6-10.3) mg/dl Magnesium 2.2 (1.7-2.4) mg/dl Total Bilirubin 0.5 (0.2-1.0) mg/dl AST 26 (13-39) U/L ALT 29 (7-52) U/L Alkaline Phosphatase 68 (34-104) U/L Troponin I High Sens 88.7 H* 92.5 H* (0-20) pg/ml B-Natriuretic Peptide 304 H (0-100) pg/ml Total Protein 6.1 (6.0-8.3) gm/dl Albumin 3.5 (3.4-5.0) gm/dl Globulin 2.6 (2.5-4.0) gm/dl Albumin/Globulin Ratio 1.3 (0.9-2) TSH 1.223 (0.300-4.500) uIu/ml Administered Medications Diltiazem HCl 125 mg/ Dextrose 125 mls @ 5 mls/hr IV .Q24H [facility]; Protocol Stop: 06/17/24 14:29 Last Titration: 05/18/24 16:53 Dose: 15 mg/hr, 15 mls/hr Documented By: PEGGY Co-signed By: DAYSI Titration: 05/18/24 15:53 Dose: 10 mg/hr, 10 mls/hr Documented By: PEGGY Co-signed By: LIZ Admin: 05/18/24 14:46 Dose: 5 mg/hr, 5 mls/hr Documented By: DAYSI Co-signed By: PEGGY Discontinued Medications Diltiazem HCl (Diltiazem Hcl 5 Mg/Ml 5 Ml Vial) 10 mg IV NOW STA Stop: 05/18/24 11:57 Last Admin: 05/18/24 12:14 Dose: 10 mg Documented By: DAYSI Co-signed By: EVELIN Sodium Chloride (Nss) 500 mls @ 999 mls/hr IV .Q31M ONE Stop: 05/18/24 14:52 Last Infusion: 05/18/24 15:52 Dose: Infused Documented By: Admin: 05/18/24 15:11 Dose: 999 mls/hr Documented By: PEGGY Metoprolol Tartrate (Metoprolol Tartrate 1 Mg/Ml Vial) 5 mg IV NOW STA Stop: 05/18/24 12:50 Last Admin: 05/18/24 12:59 Dose: 5 mg Documented By: DAYSI Morphine Sulfate (Morphine Sulfate 4 Mg/Ml 1 Ml Carp\\Vial) 4 mg IV NOW STA Stop: 05/18/24 13:06 Last Admin: 05/18/24 14:00 Dose: 4 mg Documented By: JASWANT Imaging Data Radiologist's Impression: Chest X-Ray 05/18/24 13:48 XR chest 1V portable HISTORY: 78 years-old Male SOB acute shortness of breath COMPARISON: 04/05/2024 TECHNIQUE: AP view the chest FINDINGS: Cardiomediastinal and hilar silhouettes are unchanged. Calcified right hilar lymph nodes. The thorax, pleural effusion or lobar airspace consolidation. Right basilar subcentimeter calcified granuloma. Bones appear grossly intact. IMPRESSION: 1. Cardiomegaly without acute process. 2. Prior granulomatous disease. ACT 112: Negative or not required by law. The above report was generated using voice recognition software. It may contain grammatical, syntax or spelling errors. Electronically signed by: Geo Clayton M.D. 05/18/2024 2:21 PM Discharge Plan Visit Data Chief Complaint: Cardiac Assessment Stated Complaint: AFIB, RVR ED Provider: Jae Wiley Discharge Problem: Atrial flutter Forms Stand Alone Forms: [facility] Prescriptions Prescriptions: No Action duloxetine 60 mg capsule,delayed release(DR/EC) 60 mg PO QAM Qty: 90 3RF Jardiance 10 mg tablet 10 mg PO DAILY Qty: 90 3RF ferrous sulfate 325 mg (65 mg iron) tablet 325 mg PO DAILY Qty: 90 3RF Entresto 24-26 mg tablet 1 tab PO BID Qty: 180 3RF tamsulosin 0.4 mg capsule 0.4 mg PO DAILY Qty: 90 3RF gabapentin 600 mg tablet 600 mg PO TID 30 Days Qty: 90 3RF oxycodone 5 mg tablet See Rx Instructions PO Q6H PRN (Reason: pain) 30 Days Qty: 100 0RF Rx Instructions: 1/2 to 1 tab by mouth every 6 hr as needed for severe wound and joint pain due to PVD and RA orally every 6 hours PRN; Xarelto 20 mg tablet 20 mg PO DAILY Rx Instructions: must administer with evening meal start 3 days after last eliquis dose. aspirin [Adult Low Dose Aspirin] 81 mg tablet,delayed release (DR/EC) 81 mg PO QAM Hold Instructions: Resume on 02/23/23. until PCP/surgery followup deimljdg-inrmtsg-ngda-lutein Tablet 1 tab PO QAM cyanocobalamin (vitamin B-12) 500 mcg Tablet 1,000 mcg PO QAM Qty: 30 0RF thiamine HCl (vitamin B1) 100 mg tablet 100 mg PO QAM nitroglycerin 0.4 mg Tablet, Sublingual 0.4 mg sublingual DIRECTED PRN (Reason: chest pin) vitamin E 268 mg (400 unit) Capsule 268 mg PO DAILY Qty: 0 Rx Instructions: strength not listed pravastatin 40 mg tablet 40 mg PO HS Hold Instructions: Resume on 04/17/24. Please hold while taking Daptomycin Rx Instructions: TAKE 1 TABLET BY MOUTH ONCE DAILY mirtazapine 30 mg tablet 30 mg PO HS cholecalciferol (vitamin D3) 10 mcg (400 unit) Tablet 20 mcg PO DAILY acetaminophen 325 mg tablet 975 mg PO Q8H PRN (Reason: mild pain,fever, or headache) latanoprost 0.005 % Drops 1 drp OPB QPM Rx Instructions: into both eyes doxycycline hyclate 100 mg capsule 100 mg PO BID Hold Instructions: Resume on 04/17/24. Hold until completion of daptomycin nystatin 100,000 unit/gram powder 1 applic TOPICAL DAILY B Complex Plus Vitamin C 52-29-11-5-300 mg Capsule 1 cap PO DAILY diphenhydramine HCl [Benadryl] 25 mg Capsule 25 mg PO Q6H PRN (Reason: itching) Qty: 10 0RF metoprolol succinate 25 mg Tablet Extended Release 24 Hr 25 mg PO QAM Qty: 30 0RF melatonin 3 mg Tablet 6 mg PO HS folic acid 1 mg Tablet 1 mg PO DAILY bumetanide 1 mg tablet 1 mg PO DAILY omeprazole 20 mg Tablet,Delayed Release (Dr/Ec) 20 mg PO DAILY Dom 7-7-1.5 gram Powder In Packet 1 ea PO BID sennosides 8.6 mg Tablet 8.6 mg PO BID omega [id number]-quk-fish oil 900-1,400 mg Capsule,Delayed Release(Dr/Ec) 1 cap PO DAILY Referrals Referrals: Danny Soliman DO [Primary Care Provider] -
[2024-05-18] MEDS: dilTIAZem HCl 5 MG/ML 5 ML VIAL IV STA (12:14)
[2024-05-18 12:35] LABS: Basophils # (auto) 0.01 K/uL (0.00-0.20); Basophils % (auto) 0.1 %; Eosinophils # (auto) 0.16 K/uL (0.00-0.50); Eosinophils % (auto) 1.4 %; Hematocrit (blood only) 42.2 % (42.0-52.0); Hemoglobin 13.5 g/dl (14.0-18.0); Immature Granulocytes # (auto) 0.11 K/uL (0.01-0.20); Lymphocytes # (auto) 1.07 K/uL (1.20-3.40); Lymphocytes % (auto) 9.7 %; Mean Corpuscular Hemoglobin 30.8 pg (25.0-34.0); Mean Corpuscular Volume 96.1 fL (80.0-100.0); Mean Platelet Volume 9.8 fL (9.4-12.4); Monocytes # (auto) 1.21 K/uL (0.11-0.59); Monocytes % (auto) 10.9 %; Neutrophils % (auto) 76.9 %; Platelet Count 212 K/uL (130-400); RDW Coefficient of Variation 19.5 % (11.5-14.5); Red Blood Count 4.39 M/uL (4.70-6.10); White Blood Count 11.06 K/ul (4.8-10.8)
[2024-05-18] MEDS: METOPROLOL TARTRATE 1 MG/ML VIAL IV STA (12:59)
[2024-05-18 13:01] LABS: Albumin Globulin Ratio 1.3 (0.9-2); Albumin Level 3.5 gm/dl (3.4-5.0); BUN Creatinine Ratio 38.8 (10-20); Bilirubin,Total 0.5 mg/dl (0.2-1.0); Calcium 9.2 mg/dl (8.6-10.3); Creatinine Clr Calc Pharmacy 63.5 ml/min; Globulin 2.6 gm/dl (2.5-4.0); Magnesium 2.2 mg/dl (1.7-2.4); Potassium 5.1 mmol/L (3.5-5.1); Total Protein 6.1 gm/dl (6.0-8.3)
[2024-05-18 13:04] LABS: Prothrombin Time 11.3 Seconds (9.0-12.0)
[2024-05-18 13:07] LABS: Troponin I High Sensitivity 88.7 pg/ml (0-20)
[2024-05-18 13:13] LABS: Thyroid Stimulating Hormone 1.223 uIu/ml (0.300-4.500)
[2024-05-18] MEDS: MoRPHine SULFATE 4 MG/ML 1 ML CARP\\VIAL IV STA (14:00)
[2024-05-18] MEDS ORDERED: STAT IV Infusion **Titration per Protocol STA ×2 (14:21→18:21)
--- NOTE | 2024-05-18 14:22 | XRay Report ---
XR chest 1V portable HISTORY: 78 years-old Male SOB acute shortness of breath COMPARISON: 04/05/2024 TECHNIQUE: AP view the chest FINDINGS: Cardiomediastinal and hilar silhouettes are unchanged. Calcified right hilar lymph nodes. The thorax, pleural effusion or lobar airspace consolidation. Right basilar subcentimeter calcified granuloma. B ones appear grossly intact. IMPRESSION: 1. Cardiomegaly without acute process. 2. Prior granulomatous disease. ACT 112: Negative or not required by law. The above report was generated using voice recognition software. It may contain grammatical, syntax o r spelling errors. Electronically signed by: Geo Clayton M.D. 05/18/2024 2:21 PM
[2024-05-18] MEDS: dilTIAZem HCL 125 MG in DEXTROSE 5% 100 ML IV SCH (14:46)
[2024-05-18] MEDS: SODIUM CHLORIDE 0.9% 500 ML IV ONE (15:11)
--- NOTE | 2024-05-18 16:23 | Electrocardiogram Report ---
Test Reason : Blood Pressure : */* mmHG Vent. Rate : 145 BPM Atrial Rate : 145 BPM P-R Int : 154 ms QRS Dur : 116 ms QT Int : 252 ms P-R-T Axes : * -49 83 degrees QTcB Int : 391 ms Atrial flutter with 2:1 A-V conduction Incomplete right bundle branch block Left anterior fascicular block Nonspecific ST and T wave abnormality Abnormal ECG When compared with ECG of 29-Mar-2024 12:34, Atrial flutter now present Vent. rate has increased by 59 bpm Confirmed by Jong Watson ([id number]) on 05/18/2024 4:22:43 PM Referred By: REFERRED SELF Confirmed By: Jong Watson
--- NOTE | 2024-05-18 16:27 | History & Physical Report ---
Date of Service May 18, 2024 Assessment & Plan (1) Atrial flutter with rapid ventricular response: Plan: H/o paroxysmal Afib, following with Dr. Abundio Farfan on most recent appointment 05/27/2024 with Dorie España PA-C - Suspect symptoms related to poor rate control, however, will revaluate pt once rate controlled - Rate 142 on admission; during evaluation while in ED, rate 128; Aflutter revealed on repeat EKG - Home medications ASA 81, Xarelto 20, metoprolol succinate 25 - Anticoagulated on Xarelto; has not missed doses in the last 4 weeks - CBC WBC 11.06, RBC 4.39, H&H 13.5/42.2, RDW 69, neutrophils 8.5, monocytes 1.21; PT/INR WNL - CMP BUN 47, BUN/creatinine ratio 38.8, glucose 107 - Troponin 88.7, repeat 92.5, pending repeat - EKG initially sinus tach with fusion complexes (145 bpm); repeat EKG around 1600 hrs. A-flutter with 2:1 AV conduction (128 bpm) - Given metoprolol 5 mg, diltiazem 10 mg, and started on diltiazem drip while in ED - HR not reactive to dilt drip; discontinued - Start amiodarone - Cardiology consulted Appreciate cardiology input and recs (2) HFrEF (heart failure with reduced ejection fraction): Plan: -H/o HFrEF + cardiomyopathy; presenting in A-fib with RVR, complaining of SOB as well; moderately reduced LV systolic function, RV dysfunction, global hypokinesis suggestive of nonischemic etiology -Current weight 114 kg; Daily weights standing - I+Os - Heart healthy, low sodium (<2 g/day) - Echo from 03/2024-LV, visualized, grossly normal LV size, moderately reduced systolic function, EF 35 to 40%, global hypokinesis, septal motion consistent with bundle branch block; right ventricle not well-visualized appears dilated moderately reduced function; no significant valvular abnormalities; normal estimated RVSP, estimated normal RAP; poor image quality - BNP 304 - CXR cardiomegaly without acute process, prior granulomatous disease - CBC and CMP as above - Troponin 88.7-> 92.5, pending repeat - Outpatient medications Bumex 1 mg daily, metoprolol succinate, Entresto, Jardiance - SCDs, promote leg elevation and frequent movement (3) Elevated troponin: Plan: No current chest pain or cardiac symptoms - Troponin 88.7, repeat at 92.5, pending repeat- trend every 6 hours to peak - EKG a flutter, rate 128 bpm; without ischemic changes - Continue to monitor (4) Pressure ulcer of foot, stage 3: Plan: Pressure ulcer of foot, stage III/venous ulcers both lower extremities Seen by wound healing clinic 05/13/2024; multiple admissions secondary to sepsis related to infected hardware, on chronic suppressive therapy doxycycline - Dress wounds with Aquacel AG per wound healing H&P- patient does this daily, please provide wound care daily - Does have leukocytosis at this time with neutrophil predominance; on chronic doxycycline so will defer further antibiotics at this time - Wound cultured outpatient, positive for Staph aureus MRSA - Pending XR R foot 07/10 wound - CBC am - No ID consult at this time, however if necessary then patient agreeable to such - Wound care consulted Appreciate wound care input + recs (5) Rheumatoid arthritis: Plan: Most recent rheum visit 04/13/2024; On multiple medications to manage pain, taking consistently, but states that the pain is still the worse it has ever been - No longer on immunosuppressive agents as he had to discontinue these in order to be treated for ongoing infection - Does have significant whole body pain and has been prescribed oxycodone for pain management by PCP - continue (6) Anxiety and depression: Plan: H/o, per patient; On duloxetine for mood + pain, mirtazapine - States that his mental health has been worsening given his health and the health of his family members, specifically his son - Does follow w/ psych at [facility], however, is interested in being seen while inpatient at [facility] - Denying HI/SI - Psych consulted Appreciate psych input + recs Plan CAD- PCI to LAD previously; aspirin plus Xarelto; pravastatin HLD- Pravastatin BPH- Tamsulosin Dispo: Admit Diet: Heart healthy VTE Prophylaxis: Xeralto Code: Full Admission and Anticipated Discharge Date Admission Date: 05/18/2024 History of Present Illness Chief Complaint: SOB Primary Care Provider: Danny Soliman DO 78-year-old male presenting for dyspnea and found to be in A-fib with RVR at outpatient clinic at the [facility]. ED course: CBC WBC 11.06, RBC 4.39, H&H 13.5/42.2, RDW 69, neutrophils 8.50, monocytes 1.21; PT/INR WNL; CMP BUN 47, BUN/creatinine 30.8, glucose 107; troponin 88.7, repeat at 92.5; BNP 304; TSH 1.2-3, magnesium 2.2; CXR cardiomegaly without acute process, prior granulomatous disease; admission EKG ? Sinus tachycardia with fusion complexes, rate around 145.; Provided with 500 mL NSS, morphine 4 mg, metoprolol tartrate 5 mg, diltiazem 10mg, and started on diltiazem drip in ED. Patient is an 78-year-old male PMHx PVD, A-fib, MRSA infection, RA, HFrEF presenting for dyspnea as well as A-fib with RVR. States over the past few weeks he is "not felt right." Notes that the symptoms started after being discharged from most recent hospital visit. Patient states he has been more short of breath than normal and has been concerning him. Also, has been unable to take RA medication secondary to being treated for infection. Patient has been on doxycycline ongoing for MRSA infection. He is experiencing depression per patient given his complex medical history. No SI/HI. Patient denies chest pain, palpitations, abdominal pain, N/B/D/C, LUTS, numbness/tingling, fever or chills. Took all a.m. medications. Please see Dr. Amor's attestation for adjustments/additions to treatment plan. Allergies Allergy/AdvReac Type Severity Reaction Status Date / Time cat dander Allergy Severe CAT Verified 05/17/24 13:58 HAIR---Swelling of Lip/Tongue/Throat Home Medications Medication Instructions Recorded Confirmed Type aspirin 81 mg tablet,delayed 81 mg PO QAM 08/07/22 05/18/24 History release (Adult Low Dose Aspirin) ofkyaqmd-thgjcon-awvl-lutein tablet 1 tab PO QAM 08/07/22 05/18/24 History cyanocobalamin (vitamin B-12) 500 1,000 mcg (2 x 500 mcg) PO QAM #30 01/18/23 Rx mcg tablet tabs thiamine HCl (vitamin B1) 100 mg 100 mg PO QAM 02/05/23 05/18/24 History tablet duloxetine 60 mg capsule,delayed 60 mg PO QAM #90 caps 10/29/23 05/18/24 Rx release rivaroxaban 20 mg tablet (Xarelto) 20 mg PO DAILY 11/19/23 05/18/24 History sennosides 8.6 mg tablet 8.6 mg PO BID 12/15/23 05/18/24 History cholecalciferol (vitamin D3) 10 20 mcg PO DAILY 01/21/24 05/18/24 History mcg (400 unit) tablet mirtazapine 30 mg tablet 30 mg PO HS 01/21/24 05/18/24 History nitroglycerin 0.4 mg sublingual 0.4 mg sublingual DIRECTED PRN 01/21/24 History tablet chest pin pravastatin 40 mg tablet 40 mg PO HS 01/21/24 05/18/24 History vitamin E 268 mg (400 unit) capsule 268 mg PO DAILY ##0 01/21/24 05/18/24 History acetaminophen 325 mg tablet 975 mg PO Q8H PRN mild pain,fever, 01/26/24 05/18/24 History or headache omega 4-hpu-ucv-fish oil 900 1 cap PO DAILY 02/01/24 05/18/24 History mg-1,400 mg capsule,delayed release doxycycline hyclate 100 mg capsule 100 mg PO BID 03/29/24 05/18/24 History latanoprost 0.005 % eye drops 1 drp OPB QPM 03/29/24 05/18/24 History nystatin 100,000 unit/gram topical 1 applic topical DAILY 03/29/24 05/18/24 History powder vitamin B comp and C no.3 15 mg-10 1 cap PO DAILY 03/29/24 05/18/24 History mg-50 mg-5 mg-300 mg capsule (B Complex Plus Vitamin C) diphenhydramine HCl 25 mg capsule 25 mg PO Q6H PRN itching #10 caps 04/07/24 05/18/24 Rx (Benadryl) metoprolol succinate 25 mg 25 mg PO QAM #30 tabs 04/07/24 05/18/24 Rx tablet,extended release 24 hr empagliflozin 10 mg tablet 10 mg PO DAILY #90 tabs 05/11/24 05/18/24 Rx (Jardiance) ferrous sulfate 325 mg (65 mg 325 mg PO DAILY #90 tabs 05/11/24 05/18/24 Rx iron) tablet sacubitril 24 mg-valsartan 26 mg 1 tab PO BID #180 tabs 05/11/24 05/18/24 Rx tablet (Entresto) tamsulosin 0.4 mg capsule 0.4 mg PO DAILY #90 caps 05/11/24 05/18/24 Rx gabapentin 600 mg tablet 600 mg PO TID neuropathy from 05/12/24 05/18/24 Rx severe PVD wounds 1 month #90 tabs oxycodone 5 mg tablet See Rx Instructions PO Q6H PRN 05/12/24 05/18/24 Rx pain 1 month #100 tabs arginine 7 gram-glutamine 7 1 ea PO BID 05/18/24 05/18/24 History gram-calcium HMB 1.5 gram oral powder pack (Dom) bumetanide 1 mg tablet 1 mg PO DAILY 05/18/24 05/18/24 History folic acid 1 mg tablet 1 mg PO DAILY 05/18/24 05/18/24 History melatonin 3 mg tablet 6 mg PO HS 05/18/24 05/18/24 History omeprazole 20 mg tablet,delayed 20 mg PO DAILY 05/18/24 05/18/24 History release Past Med/Surg History Problem List Atrial flutter with rapid ventricular response Atrial flutter (Acute) Atrial fibrillation with RVR Open wound of knee Pressure ulcer of foot, stage 3 Venous ulcers of both lower extremities Pain associated with wound PVD (peripheral vascular disease) Palliative care by specialist Advanced care planning/counseling discussion Back pain VRE bacteremia Ambulatory dysfunction Infection of prosthetic right knee joint JEFFERY (acute kidney injury) (Acute) Weakness (Acute) Fall (Acute) Anemia (Acute) Hypomagnesemia (Acute) Hypotension (Acute) Bilateral cellulitis of lower leg (Acute) Peripheral neuropathy Atrial fibrillation Chronic venous stasis History of MRSA infection (Acute) Elevated troponin (Acute) Cellulitis of both feet (Acute) Rheumatoid arthritis Open wound of foot Open wound of right hand (Acute) Open wound of left lower extremity (Acute) Chronic wound Sepsis secondary to UTI Lymphangitis of lower extremity Hypomagnesemia (Acute) Fever (Acute) Open wound of left upper arm (Acute) Open wound of left arm with tendon injury Gram-negative bacteremia Cellulitis of right lower extremity (Acute) Sepsis due to skin infection Generalized weakness (Acute) Elevated procalcitonin (Acute) Acute kidney injury superimposed on chronic kidney disease (Acute) Sepsis (Acute) Skin tear of right upper extremity (Acute) Open wound of left foot (Acute) Open wound of right foot (Acute) Skin tear of right hand without complication (Acute) Venous ulcer of left leg (Acute) Traumatic open wound of right lower leg (Acute) Elevated LFTs MRSA bacteremia Dislocation, hip closed (Acute) Dislocation, hip, posterior Rotator cuff arthropathy of both shoulders Abrasion of right knee (Acute) Pain of right hip Prophylactic antibiotic History of sepsis Left shoulder pain Acquired foot deformity (Chronic) Traumatic wound (Acute) Pressure ulcer of left foot, stage 3 (Acute) Abnormal ankle brachial index (Acute) Right knee pain Cellulitis of knee, right (Acute) Non-ST elevation CT (NSTEMI) (Acute) Leukocytosis (Acute) Sepsis (Acute) Myoclonus Cervical radiculopathy Neuropathy Weakness On amiodarone therapy Weakness of right hip DVT prophylaxis Constipation Acute on chronic diastolic congestive heart failure Sepsis following procedure Wheezing Rhabdomyolysis MRSA infection History of CHF (congestive heart failure) Visual disturbance Hyponatremia Hypotension Acute metabolic encephalopathy Abdominal wall abscess (Acute) HFrEF (heart failure with reduced ejection fraction) EF 40% Mar 2022, improved 55-60% August 2022 Lumbar stenosis Osteoarthritis of right knee Anxiety and depression Hypertension Anemia (Acute) Coronary artery disease Pre-operative cardiovascular examination, myocardial ischemia Atherogenic dyslipidemia Fall Lumbar radiculopathy Low back pain Lower extremity weakness Degenerative spondylolisthesis Parainfluenza virus bronchitis Chronic low back pain Scoliosis of lumbar region due to degenerative disease of spine in adult Dislocation of hip, right, closed (Acute) Septic joint of right knee joint COVID-19 (Acute) Incisional hernia Incarcerated intra-abdominal hernia (Acute) Abdominal pain (Acute) Adjustment disorder with mixed anxiety and depressed mood Sepsis (Acute) Elevated lactic acid level (Acute) Medical History Infected hardware in right leg Chronic infection of right knee UTI (urinary tract infection) Severe sepsis Venous ulcer of right leg Venous stasis ulcers of both lower extremities Idiopathic polyneuropathy History of immunosuppressive therapy Heart failure with preserved ejection fraction GERD (gastroesophageal reflux disease) Sepsis Septicemia due to Streptococcus pneumoniae Respiratory failure with hypoxia Hypomagnesemia Pneumonia Benign essential hypertension Lumbar stenosis Hx of staphylococcal infection 03/2022, w/"bacterial infection" at the same, in the rt. knee, occurrred during atrial fibrillation episode. "when he woke up, he couldn't walk." Atrial fibrillation episode occurred in 03/2022, taken to [facility] in [place], admitted to ICU for 1-2 weeks (was not intubated, but wasn't "awake either"), then to cardiac unit, then to rehab at [facility]; f/u dr. guerra in [place]>will be starting to see a manager room at [facility] 2nd week of 08/2022 Myocardial Infarction "a silent one, 2019" Sleep apnea no device Surgical History Status post revision of total replacement of right knee Hx of Achilles tendon repair rt. Hx of knee surgery rt. patellar tendon repair Hx of rotator cuff surgery bilateral Hx of total knee replacement lt. Hx of total hip arthroplasty rt. History of colostomy reversal History of bowel resection for diverticulitis; w/colostomy placement for 3-4 months Hx of hernia repair near former colostomy site History of esophagogastroduodenoscopy (EGD) Hx of colonoscopy Last Colonoscopy 08/14/22, repeat 3 years in 2025 Hx of bilateral cataract extraction History of heart artery stent ~3 years ago, x2 stents, done in [place]; f/u dr guerra, [place]>will be seeing new cardio at [facility] 2nd week of August 2022. History of cardiac cath ~3 years ago, SOB and "felt like throat was constricting", had "silent heart attack", x2 stents, done in [place] Family History Grandmother (Maternal) Diabetes Daughter Diabetes Father Suicide Hypertension Denies family history of Ovarian cancer Prostate cancer Myocardial infarction Breast cancer Lung cancer Colorectal cancer Stroke Social History Smoking Status: Never smoker Second Hand Exposure: No; Do You Dip or Chew Tobacco: No; Tobacco Cessation Education Requested by Patient: No Hx Alcohol Use: No Hx Substance Use: No Preferred Language: Sinhala Communication Ability: Effective Visual Impairment: Limited Hearing Ability: Normal Machine Specialist Required: No Beliefs That Will Affect Care: None marital status: Single Current Living Situation: Alone Current Living Situation Comment: Independent living facility current occupational status: retired How many Children do You have: 2 Other Information That Helps Us Care for You: No Feels Safe at Home: Yes Safety Concerns: Feels Safe At This Time Childhood Exposure to Second-Hand Smoke: Yes Diet: regular caffeine: Yes Dental Care, Regularly: Yes Physical Activity Frequency: Does not Exercise Seatbelt Use: always Sunscreen Use: Yes Assistive Devices: Walker and Wheelchair Review of Systems Review of Systems: All systems reviewed & are unremarkable except as noted in Subjective Physical Exam Physical Exam: General: No acute distress Skin: Warm and dry, without rashes or lesions; RLE dressed, improved Head: Normocephalic, atraumatic Eyes: PERRL, conjunctivae clear, sclera non-icteric ENT: External ear and ear canal without swelling; nose atraumatic; good dentition Neck: Supple, no LAD; no JVD Cardio: Tachycardia, irregular irregular rhythm, no M/G/R, S1 and S2 normal Resp: No respiratory distress, Lungs CTA in all lobes bilaterally, no wheezes, rales, or rhonchi Abdomen: Soft, symmetric, nontender; No masses or hepatosplenomegaly; Bowel sounds normoactive MSK: No deformities, full ROM throughout; pulses palpable and equal; no edema. Neuro: Awake, alert; Muscle strength 5/5 bilaterally in UE/LE; Sensation intact bilaterally; CN intact Psych: Appropriate mood and affect; good judgement and insight. Results & Data Results & Data Vital Signs (Past 12 Hours) Vital Signs Temp Pulse Pulse Resp BP BP Pulse Ox 05/18/24 15:51 128 H 05/18/24 15:00 130 H 19 120/92 98 05/18/24 14:30 132 H 122/100 05/18/24 13:49 135 H 16 106/86 100 05/18/24 12:51 136 H 19 96 05/18/24 12:42 137 H 22 97 05/18/24 12:33 137 H 16 96 05/18/24 12:30 106/81 05/18/24 12:24 138 H 18 95 05/18/24 12:09 143 H 05/18/24 12:08 111/82 05/18/24 12:03 140 H 20 99 05/18/24 11:58 100 05/18/24 11:57 143 H 18 100 05/18/24 11:54 104/79 05/18/24 11:50 36.8 C 142 H 13 104/79 97 05/18/24 11:49 36.8 C 142 H 13 104/79 100 O2 Del Method 05/18/24 15:51 05/18/24 15:00 Room Air 05/18/24 14:30 05/18/24 13:49 Room Air 05/18/24 12:51 05/18/24 12:42 05/18/24 12:33 05/18/24 12:30 05/18/24 12:24 05/18/24 12:09 05/18/24 12:08 05/18/24 12:03 05/18/24 11:58 Room Air 05/18/24 11:57 05/18/24 11:54 05/18/24 11:50 Room Air 05/18/24 11:49 Room Air Laboratory Results 05/18/24 05/18/24 14:15 12:05 WBC 11.06 H RBC 4.39 L Hgb 13.5 L Hct 42.2 MCV 96.1 MCH 30.8 MCHC 32.0 RDW Std Deviation 69.0 H RDW Coeff of Sammie 19.5 H Plt Count 212 MPV 9.8 Immature Gran % (Auto) 1.0 Neut % (Auto) 76.9 Lymph % (Auto) 9.7 Mellette % (Auto) 10.9 Eos % (Auto) 1.4 Baso % (Auto) 0.1 Neut # (Auto) 8.50 H Lymph # (Auto) 1.07 L Mellette # (Auto) 1.21 H Eos # (Auto) 0.16 Baso # (Auto) 0.01 Immature Gran # (Auto) 0.11 PT 11.3 INR 1.0 Sodium 138 Potassium 5.1 Chloride 104 Carbon Dioxide 30 Anion Gap 4 BUN 47 H Creatinine 1.21 Est Cr Clr Drug Dosing 63.5 eGFR 60.53 BUN/Creatinine Ratio 38.8 H Glucose 107 H Calcium 9.2 Magnesium 2.2 Total Bilirubin 0.5 AST 26 ALT 29 Alkaline Phosphatase 68 Troponin I High Sens 92.5 H* 88.7 H* B-Natriuretic Peptide 304 H Total Protein 6.1 Albumin 3.5 Globulin 2.6 Albumin/Globulin Ratio 1.3 TSH 1.223 Diagnostic Findings Chest X-Ray 05/18/24 13:48 XR chest 1V portable HISTORY: 78 years-old Male SOB acute shortness of breath COMPARISON: 04/05/2024 TECHNIQUE: AP view the chest FINDINGS: Cardiomediastinal and hilar silhouettes are unchanged. Calcified right hilar lymph nodes. The thorax, pleural effusion or lobar airspace consolidation. Right basilar subcentimeter calcified granuloma. Bones appear grossly intact. IMPRESSION: 1. Cardiomegaly without acute process. 2. Prior granulomatous disease. ACT 112: Negative or not required by law. The above report was generated using voice recognition software. It may contain grammatical, syntax or spelling errors. Electronically signed by: Geo Clayton M.D. 05/18/2024 2:21 PM Code Status & VTE Plan Code Status Full Supervising Physician Co-Signing Physician Notes I personally saw and examined the patient. I independently reviewed the labs, EKG, imaging, problem list, medication list, past medical history and family history. I verified all lubin points and agree with Any Cardozo PA-C with the following exceptions and/or additions: 78 year old male presents to the ER with shortness of breath and palpitations and found to be in a. flutter with rapid rate at his neurology outpatient appointment earlier today therefore sent to the ER. O/E HS increased rate, regular rhythm, no murmurs, Chest CTAB, Abdo SNT, 2nd right toe distal tip ulcer, 5th lateral MT ulcer without surrounding cellulitis A/P Atrial flutter with rapid ventricular rate - no effect of diltiazem, no clear reason for previously stopping amiodarone, on Xarelto for 4 weeks consistently therefore will plan on chemically cardioverting with amiodarone and if not successful will keep NPO after midnight for consideration of electrical cardioversion by cardiology tomorrow. Doubtful secondary to infection but having possible OM of right foot therefore will take blood cultures, procalcitonin, CRP and ESR. If relatively negative workup despite recent MRSA resistance to doxycycline will continue on this awaiting recommendation from his ID physicians from [place]. If wounds felt to be getting worse this would require a change of antibiotics to cover the recently grown MRSA infection but otherwise just appears to be recently debrided Venous ulcers - consult wound care PG Care Time/CCT Total # of Minutes Spent Total Time Spent with Patient: Total time spent is greater than 50% in coordination of care (as documented) at patient's floor/unit and/or counseling patient: Coding Level of Care Code 02870 INT INP/OBS CARE MIN Diagnoses Atrial flutter with rapid ventricular response I48.92 HFrEF (heart failure with reduced ejection fraction) I50.20 Elevated troponin R79.89 Pressure ulcer of foot, stage 3 L89.893 Rheumatoid arthritis, involving unspecified site, unspecified whether rheumatoid factor present M06.9 Rheumatoid arthritis location: unspecified site Rheumatoid factor presence: unspecified presence Anxiety and depression F41.9; F32.A (5) Rheumatoid arthritis Rheumatoid arthritis location: unspecified site Rheumatoid factor presence: unspecified presence Qualified Code(s): M06.9 - Rheumatoid arthritis, unspecified
[2024-05-18] MEDS ORDERED: 0.2 MICRON FILTER SET 1 EACH IV STA (18:21)
[2024-05-18] MEDS: AMIODARONE / D5W 150 MG/100 ML BAG IV STA (18:54)
[2024-05-18 19:07] LABS: C Reactive Protein 0.63 mg/dl (0-0.5)
[2024-05-18] MEDS: AMIODARONE / D5W 360 MG/200 ML BAG IV ONE (19:12)
[2024-05-18] MEDS: AMIODARONE IV BOLUS & DRIP IV STA (19:18)
--- NOTE | 2024-05-18 19:32 | XRay Report ---
Exam(s): XR RIGHT FOOT, 2 views EXAM: XR Right Foot, 2 Views CLINICAL HISTORY: Reason for exam: right 2nd toe, lateral 5th MT ulcers ?OM. TECHNIQUE: Frontal and lateral views of the right foot. COMPARISON: 12/14/2023 FINDINGS: Bones/joints: No radiographic evidence of acute osteomyelitis. No acute fracture. Normal mineralization. Soft tissues: Unremarkable. No radiopaque foreign body. IMPRESSION: No radiographic evidence of acute osteomyelitis. Electronically signed by: Lico Chairez MD 05/18/24 19:32 PM
[2024-05-18] MEDS: LATANOPROST 0.005% OP SOLN 2.5 ML BTL OPB SCH (21:17)
[2024-05-18] MEDS: MELATONIN 3 MG TAB PO SCH (21:18)
[2024-05-18] MEDS: SENNA 8.6 MG TAB PO SCH (21:18)
[2024-05-18] MEDS: oxyCODONE HCL IR 5 MG TAB (IMMEDIATE RELEASE) PO PRN (21:18)
[2024-05-18] MEDS: GABAPENTIN 600 MG TAB PO SCH (21:19)
[2024-05-18] MEDS: PRAVASTATIN SOD 40 MG TAB PO SCH (21:20)
[2024-05-18] MEDS: MIRTAZAPINE TAB 15 MG TAB PO SCH (21:20)
[2024-05-18] MEDS: VALSARTAN/SACUBITRIL 26/24MG TAB PO SCH (21:20)
[2024-05-18] MEDS: DOXYCYCLINE HYCLATE 100 MG CAP PO SCH (21:27)
[2024-05-18] MEDS: ACETAMINOPHEN 325 MG TAB PO PRN (22:29)
[2024-05-18 22:38] LABS: Appearance Urine Clear (Clear); Bilirubin Urine Negative (Negative); Blood Urine Negative (Negative); Color Urine Yellow; Glucose Urine UA 3+ (Negative); Ketones Urine Negative (Negative); Leukocyte Esterase Urine Negative (Negative); Nitrite Urine Negative (Negative); Protein Urine Negative (Negative); Specific Gravity Urine 1.026 (1.000-1.030); Urobilinogen Urine Negative (Negative)
[2024-05-19] MEDS: AMIODARONE / D5W 360 MG/200 ML BAG IV SCH (01:10)
[2024-05-19 05:47] LABS: Hematocrit (blood only) 41.1 % (42.0-52.0); Hemoglobin 13.1 g/dl (14.0-18.0); Mean Corpuscular Hemoglobin 30.8 pg (25.0-34.0); Mean Corpuscular Hgb Conc 31.9 g/dL (32.0-36.0); Mean Corpuscular Volume 96.7 fL (80.0-100.0); Mean Platelet Volume 9.4 fL (9.4-12.4); Platelet Count 190 K/uL (130-400); RDW Standard Deviation 71.7 fL (36.4-46.3); Red Blood Count 4.25 M/uL (4.70-6.10); White Blood Count 9.76 K/ul (4.8-10.8)
[2024-05-19 06:05] LABS: BUN Creatinine Ratio 29.7 (10-20); Calcium 8.8 mg/dl (8.6-10.3); Creatinine Clr Calc Pharmacy 55.7 ml/min; Potassium 5.7 mmol/L (3.5-5.1)
--- NOTE | 2024-05-19 07:35 | Hospitalist Progress Note ---
Date of Service May 19, 2024 Assessment & Plan (1) Atrial flutter with rapid ventricular response: Plan: H/o paroxysmal Afib, follows with Dr. Farfan, most recent appointment 05/27/2024 with Dorie España PA-C - Suspect SOB related to poor rate control - A-flutter with rate 142 on admission - persistent A-flutter with rate in the 130s overnight, HR non-reactive to Dilt drip -> switched to amiodarone drip - Home medications ASA 81, Xarelto 20, metoprolol succinate 25 - Anticoagulated on Xarelto; has not missed doses in the last 4 weeks - H&H 13.5/42.2, TSH WNL - Troponin peaked at 92 - Cardiology consulted, appreciate recs - Continue amiodarone drip - when complete, will switch to PO amiodarone 400mg BID - Tentative plan for cardioversion tomorrow if failing to convert back to sinus rhythm - NPO at midnight (2) HFrEF (heart failure with reduced ejection fraction): Plan: - H/o HFrEF + cardiomyopathy; presenting in A-fib with RVR, complaining of SOB as well; moderately reduced LV systolic function - EF 35-40%, RV dysfunction, global hypokinesis suggestive of nonischemic etiology - Daily weights standing - patient is largely wheelchair bound, does not monitor daily weights at home, therefore uncertain what his dry weight is - I+Os - Heart healthy, low sodium (<2 g/day) - Continue outpatient medications: Bumex 1 mg daily, metoprolol succinate, Entresto, Jardiance - SCDs, promote leg elevation and frequent movement - Recheck AM labs (3) Elevated troponin: Plan: No chest pain or palpitations - Troponin peaked at ~92, no ischemic changes noted on EKG (4) Pressure ulcer of foot, stage 3: Plan: Pressure ulcer of foot, stage III/venous ulcers both lower extremities Seen by wound clinic 05/13/2024; multiple admissions secondary to sepsis related to infected hardware, on chronic suppressive doxycycline - Dress wounds with Aquacel AG per wound healing H&P- patient does this daily, wound care consulted for dressing management - No leukocytosis, afebrile, inflammatory markers WNL - lower suspicion for acute infection, additional abx treatment deferred at present - Outpatient wound culture 05/13 positive for MRSA - XR foot negative for evidence of osteomyelitis - Continue to monitor, check AM CBC - Oxycodone 5mg Q6H for pain control, PO Dilaudid 2mg Q3H PRN for breakthrough pain (5) Rheumatoid arthritis: Plan: Most recent rheum visit 04/13/2024; On multiple medications to manage pain, taking consistently, but states that the pain is still the worst it has ever been - No longer on immunosuppressive agents as he had to discontinue these in order to be treated for ongoing infection - Pain control as above (6) Anxiety and depression: Plan: Home medications: duloxetine + mirtazapine - Depressed mood secondary to health deterioration - Follows w/ psych at [facility] - Denying HI/SI - Psych consulted, appreciate recs: Plan Chronic Problems: CAD- H/o PCI to LAD; aspirin plus Xarelto; pravastatin HLD- Pravastatin BPH- Tamsulosin Diet: Heart healthy VTE Prophylaxis: Xarelto Admission and Anticipated Discharge Date Admission Date: May 18, 2024 Supervising Physician Co-Signing Physician Notes Attending Physician Supervision Note: I independently interviewed and examined the patient and verified the lubin history and physical, reviewed labs and image studies and agree with findings and care plan noted above. 78 y/o M here with shortness of breath and palpitations and found to be in a. flutter with rapid rate and neuro visit and sent to ED This am - comfortable. No chest pain, shortness of breath, fever. No pain in legs. Tachycardia, CTA anteriorly, 2nd right toe distal tip ulcer, 5th lateral MT ulcer without surrounding cellulitis A flutter RVR - no effect of diltiazem, started on amiodarone drip in ED - switched to PO. (has been on amiodarone but unclear why he stopped). Continue Xarelto. Avoid CCB in setting of HFrEF Per cardio - If doesn't convert on amiodarone will go for cardioversion. Acute on chronic HFrEF - continue bumex home dose. continue with metoprolol succinate ER, Entresto, Jardiance, and Bumex. CAD - continue ASA, statin, b pato. LEONARD - will check history on treatment in am. Chronic wounds - On chronic suppressive therapy with doxycycline. Recent wound culture from 05/13 - moderate growth of MRSA resistant to tetracycline. Normal procalcitonin, ESR. CRP faintly elevated. Foot xray negative Blood cx aerobic - negative. Anaerobe pending. Less likely concern of infection. continue wound care. Chronic back pain/polyneuropathy - oxycodone and hydromorphone prn home dose. Depression - Evaluated by psych. continue home meds. Increase frequency of outpatient follow up. Subjective Patient reports ongoing shortness of breath that progressively developed over last 2 weeks - denies associated chest pain, palpitations. In general, unable to tell when in A-fib/flutter. Denies recent illness, fever/chills. Patient currently resides at [facility], is in the process of trying to establish home health services through the [facility]. Wheelchair bound at baseline. Chronic h/o lower extremity pressure ulcers, follows with outpatient wound care center. H/o depression, follows with psychiatry at the [facility] - currently on Cymbalta and Remeron. Denies SI/HI. Spoke with psychiatry after admission, states this was helpful. Review of Systems Review of Systems: as per HPI Physical Exam Physical Exam: General: Alert and oriented. No acute distress Cardiac: +tachycardia, irregular rhythm, no murmurs appreciated Respiratory: Lungs clear to auscultation bilaterally, No increased work of breathing Extremities: Diffuse bilateral LE swelling, discoloration with multiple open wounds covered with clean dressings. Distal pulses intact. Psych: AOx3, mood-affect congruence Results & Data Results & Data Vital Signs (Past 12 Hours) Vital Signs Temp Pulse Pulse Resp BP BP Pulse Ox 05/19/24 07:29 36.6 C 131 H 18 133/94 98 05/19/24 03:05 36.8 C 128 H 19 114/81 94 05/18/24 23:01 36.8 C 120 H 18 125/88 97 05/18/24 22:29 131 H 05/18/24 21:30 05/18/24 19:58 36.7 C 135 H 17 161/62 H 94 O2 Del Method 05/19/24 07:29 Room Air 05/19/24 03:05 Room Air 05/18/24 23:01 Room Air 05/18/24 22:29 05/18/24 21:30 Room Air 05/18/24 19:58 Room Air Resident Activity Tracking Resident Involvement: Resident Care Provided Care Provided: Adult Hospital Medicine (5) Rheumatoid arthritis Rheumatoid arthritis location: unspecified site Rheumatoid factor presence: unspecified presence Qualified Code(s): M06.9 - Rheumatoid arthritis, unspecified
--- NOTE | 2024-05-19 08:34 | Electrocardiogram Report ---
Test Reason : Blood Pressure : */* mmHG Vent. Rate : 128 BPM Atrial Rate : 256 BPM P-R Int : * ms QRS Dur : 104 ms QT Int : 284 ms P-R-T Axes : 238 -39 62 degrees QTcB Int : 414 ms Atrial flutter with 2:1 A-V conduction Left anterior fascicular block Incomplete right bundle branch block Nonspecific ST and T wave abnormality Abnormal ECG When compared with ECG of 18-May-2024 11:49, HR has decreased by 17 bpm Otherwise no significant change Confirmed by Jong Watson ([id number]) on 05/19/2024 8:34:16 AM Referred By: REFERRED SELF Confirmed By: Jong Watson
[2024-05-19] MEDS: PANTOprazole 40 MG TAB PO SCH (09:05)
[2024-05-19] MEDS: DULoxetine HCL 60 MG CAP PO SCH (09:05)
[2024-05-19] MEDS: ASPIRIN 81 MG ECTAB PO SCH (09:05)
[2024-05-19] MEDS: RIVAROXABAN 20 MG TAB PO SCH (09:05)
[2024-05-19] MEDS: TAMSULOSIN HCL 0.4 MG CAP PO SCH (09:05)
[2024-05-19] MEDS: METOPROLOL SUCC 25MG EXT REL TAB PO SCH (09:05)
[2024-05-19] MEDS: BUMETANIDE 1 MG TAB PO SCH (09:06)
--- NOTE | 2024-05-19 10:45 | Cardiology Consultation ---
Date of Consultation May 19, 2024 Assessment & Plan (1) Atrial flutter with rapid ventricular response: Patient has significant cardiac dysfunction with cardiomyopathy, history of coronary disease and stenting, and altered chamber sizes. The substrate is therefore present for him to have atrial fibrillation/atrial flutter. I think the acute trigger is wound infection and pain. Obviously these things need to be addressed. I also note that when he was taking amiodarone in the past his rhythm was maintained in sinus. Therefore, I think we will continue the amiodarone drip and once it has completed switch him to oral amiodarone. Will just have to monitor him for toxicities but certainly his quality of life will not be good if we cannot maintain control over rhythm/rate. He will remain on CVA prophylaxis. If he remains in atrial flutter/fibrillation tomorrow and we will perform DC cardioversion once the amiodarone has been switched to oral dosing. (2) Elevated troponin: Patient with known small vessel disease not amenable to PCI. His symptoms are not consistent with an acute coronary syndrome and this seems to be more of a demand issue. Conservative medical management is therefore recommended. Low- dose aspirin, metoprolol, and statin will continue. He also gets an ARB as part of his Entresto. (3) Acute on chronic diastolic congestive heart failure: By physical exam he does not have a significant amount of pulmonary edema. His lower extremity edema is multifactorial and not specifically indicative of decompensated heart failure. He should remain on his low-dose diuretic as long as his renal function tolerates. I would avoid calcium channel blockers in the patient with reduced EF. He should continue with metoprolol succinate ER, Entresto, Jardiance, and Bumex. Plan Tentatively scheduled for DC cardioversion tomorrow. N.p.o. after midnight but he should take his medications. We will reassess him prior to the cardioversion as there is some chance the amiodarone will chemically convert him. He has been on his anticoagulation without interruption for several months. History of Present Illness Reason for Consultation: Atrial flutter with rapid ventricular response Attending Physician: Ann Lazaro MD History of Present Illness 78-year-old gentleman whom I last saw in the office in August 2023. He carries a history of coronary disease with remote LAD stenting [place]), paroxysmal atrial fibrillation, dilated cardiomyopathy with EF of 35 to 40%, and who more recently has had a number of admissions to the hospital. Most recently found with infected venous ulcers. He has been on MRSA treatment with IV antibiotics for about a month and subsequently was placed on lifelong doxycycline therapy. Patient was sent to the hospital from the wound clinic for atrial fibrillation and rapid ventricular response. He he complained of dyspnea particularly with even low levels of exertion but denied any anginal chest pain heaviness or tightness. He was subsequently admitted by the hospitalist team. Initially placed on diltiazem drip but this was ineffective. Subsequently placed on amiodarone drip just after midnight this morning. Culture of his right lower extremity ulcer reveals MRSA. Patient tells me he has been dyspneic for a few weeks. When I saw him last August he was still on amiodarone but we had discussed potentially stopping the amiodarone given potential for multiple toxicities. However, he then ended up in the hospital in [place]. He states he thinks that is where the amiodarone was stopped and he has not taken it since that time. Most recently he saw Dorie España PA-C in the cardiology office at which point he was doing fairly well. He was scheduled to see me in about 3 months. Patient denies any syncope, near syncope, PND, racing heartbeat, but does have orthopnea and his lower extremities have mild edema at times. He tells me he has PAD in addition to the venous ulcerations. He wishes to return home as soon as possible. Unfortunately, his son has been diagnosed with pancreatic cancer and is going to the [facility] to undergo extensive surgery. He voices no other complaints or concerns at this time. Allergies Allergy/AdvReac Type Severity Reaction Status Date / Time cat dander Allergy Severe CAT Verified 05/17/24 13:58 HAIR---Swelling of Lip/Tongue/Throat Home Medications Medication Instructions Recorded Confirmed Type aspirin 81 mg tablet,delayed 81 mg PO QAM 08/07/22 05/18/24 History release (Adult Low Dose Aspirin) bfynchls-prsusxc-orpg-lutein tablet 1 tab PO QAM 08/07/22 05/18/24 History cyanocobalamin (vitamin B-12) 500 1,000 mcg (2 x 500 mcg) PO QAM #30 01/18/23 05/18/24 Rx mcg tablet tabs thiamine HCl (vitamin B1) 100 mg 100 mg PO QAM 02/05/23 05/18/24 History tablet duloxetine 60 mg capsule,delayed 60 mg PO QAM #90 caps 10/29/23 05/18/24 Rx release rivaroxaban 20 mg tablet (Xarelto) 20 mg PO DAILY 11/19/23 05/18/24 History sennosides 8.6 mg tablet 8.6 mg PO BID 12/15/23 05/18/24 History cholecalciferol (vitamin D3) 10 20 mcg PO DAILY 01/21/24 05/18/24 History mcg (400 unit) tablet mirtazapine 30 mg tablet 30 mg PO HS 01/21/24 05/18/24 History nitroglycerin 0.4 mg sublingual 0.4 mg sublingual DIRECTED PRN 01/21/24 05/18/24 History tablet chest pin pravastatin 40 mg tablet 40 mg PO HS 01/21/24 05/18/24 History vitamin E 268 mg (400 unit) capsule 268 mg PO DAILY ##0 01/21/24 05/18/24 History acetaminophen 325 mg tablet 975 mg PO Q8H PRN mild pain,fever, 01/26/24 05/18/24 History or headache omega 0-mru-tke-fish oil 900 1 cap PO DAILY 02/01/24 05/18/24 History mg-1,400 mg capsule,delayed release doxycycline hyclate 100 mg capsule 100 mg PO BID 03/29/24 05/18/24 History latanoprost 0.005 % eye drops 1 drp OPB QPM 03/29/24 05/18/24 History nystatin 100,000 unit/gram topical 1 applic topical DAILY 03/29/24 05/18/24 History powder vitamin B comp and C no.3 15 mg-10 1 cap PO DAILY 03/29/24 05/18/24 History mg-50 mg-5 mg-300 mg capsule (B Complex Plus Vitamin C) diphenhydramine HCl 25 mg capsule 25 mg PO Q6H PRN itching #10 caps 04/07/24 05/18/24 Rx (Benadryl) metoprolol succinate 25 mg 25 mg PO QAM #30 tabs 04/07/24 05/18/24 Rx tablet,extended release 24 hr empagliflozin 10 mg tablet 10 mg PO DAILY #90 tabs 05/11/24 05/18/24 Rx (Jardiance) ferrous sulfate 325 mg (65 mg 325 mg PO DAILY #90 tabs 05/11/24 05/18/24 Rx iron) tablet sacubitril 24 mg-valsartan 26 mg 1 tab PO BID #180 tabs 05/11/24 05/18/24 Rx tablet (Entresto) tamsulosin 0.4 mg capsule 0.4 mg PO DAILY #90 caps 05/11/24 05/18/24 Rx gabapentin 600 mg tablet 600 mg PO TID neuropathy from 05/12/24 05/18/24 Rx severe PVD wounds 1 month #90 tabs oxycodone 5 mg tablet See Rx Instructions PO Q6H PRN 05/12/24 05/18/24 Rx pain 1 month #100 tabs arginine 7 gram-glutamine 7 1 ea PO BID 05/18/24 05/18/24 History gram-calcium HMB 1.5 gram oral powder pack (Dom) bumetanide 1 mg tablet 1 mg PO DAILY 05/18/24 05/18/24 History folic acid 1 mg tablet 1 mg PO DAILY 05/18/24 05/18/24 History melatonin 3 mg tablet 6 mg PO HS 05/18/24 05/18/24 History omeprazole 20 mg tablet,delayed 20 mg PO DAILY 05/18/24 05/18/24 History release Patient History Medical History Infected hardware in right leg Chronic infection of right knee UTI (urinary tract infection) Severe sepsis Venous ulcer of right leg Venous stasis ulcers of both lower extremities Idiopathic polyneuropathy History of immunosuppressive therapy Heart failure with preserved ejection fraction GERD (gastroesophageal reflux disease) Sepsis Septicemia due to Streptococcus pneumoniae Respiratory failure with hypoxia Hypomagnesemia Pneumonia Benign essential hypertension Lumbar stenosis Hx of staphylococcal infection 03/2022, w/"bacterial infection" at the same, in the rt. knee, occurrred during atrial fibrillation episode. "when he woke up, he couldn't walk." Atrial fibrillation episode occurred in 03/2022, taken to [facility] in [place], admitted to ICU for 1-2 weeks (was not intubated, but wasn't "awake either"), then to cardiac unit, then to rehab at [facility] in [place]; f/u dr. 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 Hx of knee surgery rt. patellar tendon repair Hx of rotator cuff surgery bilateral Hx of total knee replacement lt. Hx of total hip arthroplasty rt. History of colostomy reversal History of bowel resection for diverticulitis; w/colostomy placement for 3-4 months Hx of hernia repair near former colostomy site History of esophagogastroduodenoscopy (EGD) Hx of colonoscopy Last Colonoscopy 08/14/22, repeat 3 years in 2025 Hx of bilateral cataract extraction History of heart artery stent ~3 years ago, x2 stents, done in [place]; f/u dr guerra, [place]>will be seeing new cardio at [facility] 2nd week of August 2022. History of cardiac cath ~3 years ago, SOB and "felt like throat was constricting", had "silent heart attack", x2 stents, done in [place] Family History Grandmother (Maternal) Diabetes Daughter Diabetes Father Suicide Hypertension Denies family history of Ovarian cancer Prostate cancer Myocardial infarction Breast cancer Lung cancer Colorectal cancer Stroke Social History Smoking Status: Never smoker Second Hand Exposure: No; Do You Dip or Chew Tobacco: No; Tobacco Cessation Education Requested by Patient: No Hx Alcohol Use: No Hx Substance Use: No Preferred Language: Latvian Communication Ability: Effective Visual Impairment: Limited Hearing Ability: Normal Prosthetic Assistant Required: No Beliefs That Will Affect Care: None marital status: Single Current Living Situation: Alone Current Living Situation Comment: Independent living facility current occupational status: retired How many Children do You have: 2 Other Information That Helps Us Care for You: No Feels Safe at Home: Yes Safety Concerns: Feels Safe At This Time Childhood Exposure to Second-Hand Smoke: Yes Diet: regular caffeine: Yes Dental Care, Regularly: Yes Physical Activity Frequency: Does not Exercise Seatbelt Use: always Sunscreen Use: Yes Assistive Devices: Walker and Wheelchair Review of Systems Review of Systems: Negative except as per HPI Physical Exam Constitutional: WD/WN, vitals as above Eyes: Extraocular muscles intact. Sclera are anicteric. ENMT: Oral mucosa is pink and moist Neck: Thick. No JVD Respiratory: Clear to auscultation bilaterally. No wheezing, rhonchi, or rales. Diminished air movement. Cardiovascular: Irregular rhythm and slightly tachycardic rate. S4 gallop. Do not appreciate any rubs or murmurs. Musculoskeletal: Chronic venous stasis changes bilateral lower extremities. Right lower extremity with multiple ulcerations which are currently dressed. He is right foot also is a bit dusky and appears to have arterial insufficiency. The left foot is red rather than dusky. Neurologic: Cognition is intact. Speech is fluent. No focal deficits Psychiatric: A+Ox3, euthymic affect Results & Data Vital Signs (Past 12 Hours) Vital Signs Temp Pulse Pulse Resp BP BP Pulse Ox 05/19/24 08:00 132 H 05/19/24 07:29 36.6 C 131 H 18 133/94 98 05/19/24 03:05 36.8 C 128 H 19 114/81 94 05/18/24 23:01 36.8 C 120 H 18 125/88 97 O2 Del Method 05/19/24 08:00 05/19/24 07:29 Room Air 05/19/24 03:05 Room Air 05/18/24 23:01 Room Air PG Care Time/CCT Total # of Minutes Spent Total Time Spent with Patient: Total time spent is greater than 50% in coordination of care (as documented) at patient's floor/unit and/or counseling patient: Coding Level of Care Code 18455 INT INP/OBS CARE 3/75MIN Diagnoses Atrial flutter with rapid ventricular response I48.92 Elevated troponin R79.89 Acute on chronic diastolic congestive heart failure I50.33 Time Spent (min) 75
[2024-05-19 10:54] LABS: BUN Creatinine Ratio 30.2 (10-20); Calcium 8.8 mg/dl (8.6-10.3); Creatinine Clr Calc Pharmacy 59.6 ml/min
--- NOTE | 2024-05-19 11:50 | Psychiatric Consultation ---
Date of Consultation May 19, 2024 Impression / Recommendations Impression Diagnostically consistent with unspecified depressive disorder suspect adjustment disorder with depressed mood vs major depressive disorder, mild. Acute risk of self-harm is low given denial of SI, future-oriented, engaged with outpatient treatment. His psychiatric medications are appropriate, likely best options given his symptoms, and doses are well maximized. Further increase of mirtazapine an option in the future with his outpatient psychiatrist, wouldn't adjust currently as could worsen sleep (often less sedating at higher doses). Reviewed non-pharmacologic interventions such as virtual reality headset to "experience" nature like he used to and potentially increasing frequency of therapy sessions especially given his son's upcoming surgery. Overall, I spent a total of 45 minutes with this case including review of chart records, review of labwork, review of EKG QTc, direct evaluation of the patient at bedside, counseling the patient, discussion of the patient with the hospitalist provider, discussion with the psychiatric liason during clinical rounds and documentation in the electronic health record. (1) Depression: Plan -Continue psychiatric medications as ordered -Consider increasing frequency of outpatient therapy Psych History Identifying Data Lowelljosey Cosme" Hakeem is an 78 yo man with a history of PVD, A-fib, MRSA infection, RA, HFrEF admitted medically for dyspnea as well as A-fib with RVR. Psychiatry consulted for "worsening depression". Chief Complaint "It's the loss of my physicality and my son's health". History of Present Illness Bill reports worsening depression in the context of stressors of physical health challenges that limit his ability to engage in outdoor and active things he's enjoyed all his life and his son's diagnosis with pancreatic cancer and upcoming surgery following Mary. He continues to take duloxetine 60mg daily and mirtazapine 30mg HS and finds these helpful. Denies SI. Sees psychiatry at [facility] (just established, had first visit recently) and therapist there (Trish, sees every few weeks). Reviewed ideas to increase ability to connect with nature and things that bring him evelia. Allergies Allergy/AdvReac Type Severity Reaction Status Date / Time cat dander Allergy Severe CAT Verified 05/17/24 13:58 HAIR---Swelling of Lip/Tongue/Throat Home Medications Medication Instructions Recorded Confirmed Type aspirin 81 mg tablet,delayed 81 mg PO QAM 08/07/22 05/18/24 History release (Adult Low Dose Aspirin) svujdlrm-unueotq-calk-lutein tablet 1 tab PO QAM 08/07/22 05/18/24 History cyanocobalamin (vitamin B-12) 500 1,000 mcg (2 x 500 mcg) PO QAM #30 01/18/23 05/18/24 Rx mcg tablet tabs thiamine HCl (vitamin B1) 100 mg 100 mg PO QAM 02/05/23 05/18/24 History tablet duloxetine 60 mg capsule,delayed 60 mg PO QAM #90 caps 10/29/23 05/18/24 Rx release rivaroxaban 20 mg tablet (Xarelto) 20 mg PO DAILY 11/19/23 05/18/24 History sennosides 8.6 mg tablet 8.6 mg PO BID 12/15/23 05/18/24 History cholecalciferol (vitamin D3) 10 20 mcg PO DAILY 01/21/24 05/18/24 History mcg (400 unit) tablet mirtazapine 30 mg tablet 30 mg PO HS 01/21/24 05/18/24 History nitroglycerin 0.4 mg sublingual 0.4 mg sublingual DIRECTED PRN 01/21/24 05/18/24 History tablet chest pin pravastatin 40 mg tablet 40 mg PO HS 01/21/24 05/18/24 History vitamin E 268 mg (400 unit) capsule 268 mg PO DAILY ##0 01/21/24 05/18/24 History acetaminophen 325 mg tablet 975 mg PO Q8H PRN mild pain,fever, 01/26/24 05/18/24 History or headache omega 2-nro-yzd-fish oil 900 1 cap PO DAILY 02/01/24 05/18/24 History mg-1,400 mg capsule,delayed release doxycycline hyclate 100 mg capsule 100 mg PO BID 03/29/24 05/18/24 History latanoprost 0.005 % eye drops 1 drp OPB QPM 03/29/24 05/18/24 History nystatin 100,000 unit/gram topical 1 applic topical DAILY 03/29/24 05/18/24 History powder vitamin B comp and C no.3 15 mg-10 1 cap PO DAILY 03/29/24 05/18/24 History mg-50 mg-5 mg-300 mg capsule (B Complex Plus Vitamin C) diphenhydramine HCl 25 mg capsule 25 mg PO Q6H PRN itching #10 caps 04/07/24 05/18/24 Rx (Benadryl) metoprolol succinate 25 mg 25 mg PO QAM #30 tabs 04/07/24 05/18/24 Rx tablet,extended release 24 hr empagliflozin 10 mg tablet 10 mg PO DAILY #90 tabs 05/11/24 05/18/24 Rx (Jardiance) ferrous sulfate 325 mg (65 mg 325 mg PO DAILY #90 tabs 05/11/24 05/18/24 Rx iron) tablet sacubitril 24 mg-valsartan 26 mg 1 tab PO BID #180 tabs 05/11/24 05/18/24 Rx tablet (Entresto) tamsulosin 0.4 mg capsule 0.4 mg PO DAILY #90 caps 05/11/24 05/18/24 Rx gabapentin 600 mg tablet 600 mg PO TID neuropathy from 05/12/24 05/18/24 Rx severe PVD wounds 1 month #90 tabs oxycodone 5 mg tablet See Rx Instructions PO Q6H PRN 05/12/24 05/18/24 Rx pain 1 month #100 tabs arginine 7 gram-glutamine 7 1 ea PO BID 05/18/24 05/18/24 History gram-calcium HMB 1.5 gram oral powder pack (Dom) bumetanide 1 mg tablet 1 mg PO DAILY 05/18/24 05/18/24 History folic acid 1 mg tablet 1 mg PO DAILY 05/18/24 05/18/24 History melatonin 3 mg tablet 6 mg PO HS 05/18/24 05/18/24 History omeprazole 20 mg tablet,delayed 20 mg PO DAILY 05/18/24 05/18/24 History release Patient History Medical History Infected hardware in right leg Chronic infection of right knee UTI (urinary tract infection) Severe sepsis Venous ulcer of right leg Venous stasis ulcers of both lower extremities Idiopathic polyneuropathy History of immunosuppressive therapy Heart failure with preserved ejection fraction GERD (gastroesophageal reflux disease) Sepsis Septicemia due to Streptococcus pneumoniae Respiratory failure with hypoxia Hypomagnesemia Pneumonia Benign essential hypertension Lumbar stenosis Hx of staphylococcal infection 03/2022, w/"bacterial infection" at the same, in the rt. knee, occurrred during atrial fibrillation episode. "when he woke up, he couldn't walk." Atrial fibrillation episode occurred in 03/2022, taken to [facility] in [place], admitted to ICU for 1-2 weeks (was not intubated, but wasn't "awake either"), then to cardiac unit, then to rehab at [facility]; f/u dr. guerra in [place]>will be starting to see a jerker at [facility] 2nd week of 08/2022 Myocardial Infarction "a silent one, 2019" Sleep apnea no device Surgical History Status post revision of total replacement of right knee Hx of Achilles tendon repair rt. Hx of knee surgery rt. patellar tendon repair Hx of rotator cuff surgery bilateral Hx of total knee replacement lt. Hx of total hip arthroplasty rt. History of colostomy reversal History of bowel resection for diverticulitis; w/colostomy placement for 3-4 months Hx of hernia repair near former colostomy site History of esophagogastroduodenoscopy (EGD) Hx of colonoscopy Last Colonoscopy 08/14/22, repeat 3 years in 2025 Hx of bilateral cataract extraction History of heart artery stent ~3 years ago, x2 stents, done in [place]; f/u dr guerra, [place]>will be seeing new cardio at [facility] week of August 2022. History of cardiac cath ~3 years ago, SOB and "felt like throat was constricting", had "silent heart attack", x2 stents, done in [place] Family History Grandmother (Maternal) Diabetes Daughter Diabetes Father Suicide Hypertension Denies family history of Ovarian cancer Prostate cancer Myocardial infarction Breast cancer Lung cancer Colorectal cancer Stroke Social History Smoking Status: Never smoker Second Hand Exposure: No; Do You Dip or Chew Tobacco: No; Tobacco Cessation Education Requested by Patient: No Hx Alcohol Use: No Hx Substance Use: No Preferred Language: Bengali Communication Ability: Effective Visual Impairment: Limited Hearing Ability: Normal Toy Stuffer Required: No Beliefs That Will Affect Care: None marital status: Single Current Living Situation: Alone Current Living Situation Comment: Independent living facility current occupational status: retired How many Children do You have: 2 Other Information That Helps Us Care for You: No Feels Safe at Home: Yes Safety Concerns: Feels Safe At This Time Childhood Exposure to Second-Hand Smoke: Yes Diet: regular caffeine: Yes Dental Care, Regularly: Yes Physical Activity Frequency: Does not Exercise Seatbelt Use: always Sunscreen Use: Yes Assistive Devices: Walker and Wheelchair Physical Exam Psychiatric: Orientation: alert and oriented x 3 Apperance: appropriately dressed and appropriately groomed Eye Contact: good eye contact Motor Behavior: no abnormal motor movements Speech: normal rate/rhythm/volume of speech Affect: + depressed affect (but smiles and brightens when discussing certain topics) Mood: + depressed mood Thought Process: goal directed thought process Thought Content: reality based without delusions Suicidal Thoughts: denies suicidal thoughts Homicidal Thoughts: denies homicidal thoughts Hallucinations: no auditory hallucinations and no visual hallucinations Cognition: attention grossly intact and language grossly intact Estimated Intelligence: consistent with education level Insight: good insight Judgment: + fair judgement Vital Signs (Past 24 Hours): Last Vital Signs Temp 36.6 C 05/19/24 11:24 Pulse 136 H 05/19/24 11:24 Resp 18 05/19/24 11:24 BP 104/75 05/19/24 11:24 Pulse Ox 94 05/19/24 11:24 O2 Del Method Room Air 05/19/24 11:24 Results & Data (PSY) Medications Administered Acetaminophen (Acetaminophen 325 Mg Tab) 975 mg PO Q8H PRN PRN Reason: mild pain,fever, or headache Stop: 06/17/24 18:20 Last Admin: 05/18/24 22:29 Dose: 975 mg Documented By: [facility] Aspirin (Aspirin 81 Mg Ectab) 81 mg PO QAM [facility] Stop: 06/18/24 08:59 Last Admin: 05/19/24 09:05 Dose: 81 mg Documented By: Bumetanide (Bumetanide 1 Mg Tab) 1 mg PO DAILY [facility] Stop: 06/18/24 08:59 Last Admin: 05/19/24 09:06 Dose: 1 mg Documented By: Doxycycline Hyclate (Doxycycline Hyclate 100 Mg Cap) 100 mg PO BID [facility] Stop: 06/17/24 20:59 Last Admin: 05/19/24 09:05 Dose: 100 mg Documented By: Admin: 05/18/24 21:27 Dose: 100 mg Documented By: [facility] Duloxetine HCl (Duloxetine Hcl 60 Mg Cap) 60 mg PO QAM [facility] Stop: 06/18/24 08:59 Last Admin: 05/19/24 09:05 Dose: 60 mg Documented By: Gabapentin (Gabapentin 600 Mg Tab) 600 mg PO TID [facility] Stop: 06/17/24 20:59 Last Admin: 05/19/24 09:06 Dose: 600 mg Documented By: Admin: 05/18/24 21:19 Dose: 600 mg Documented By: GT Amiodarone HCl/Dextrose (Nexterone / D5w) 360 mg in 200 mls @ 16.667 mls/hr IV .Q12H [facility] Stop: 05/19/24 21:00 Last Admin: 05/19/24 01:10 Dose: 0.5 mg/min, 16.7 mls/hr Documented By: MONICA Co-signed By: ANKITA Latanoprost (Latanoprost 0.005% Op Soln 2.5 Ml Btl) 1 drops OPB QPM [facility] Stop: 06/17/24 20:59 Last Admin: 05/18/24 21:17 Dose: 1 drops Documented By: MONICA Melatonin (Melatonin 3 Mg Tab) 6 mg PO [facility] Stop: 06/17/24 20:59 Last Admin: 05/18/24 21:18 Dose: 6 mg Documented By: MONICA Metoprolol Succinate (Metoprolol Succ 25mg Ext Rel Tab) 25 mg PO [facility] Stop: 06/18/24 08:59 Last Admin: 05/19/24 09:05 Dose: 25 mg Documented By: Mirtazapine (Mirtazapine Tab 15 Mg Tab) 30 mg PO [facility] Stop: 06/17/24 20:59 Last Admin: 05/18/24 21:20 Dose: 30 mg Documented By: [facility] Oxycodone HCl (Oxycodone Hcl Ir 5 Mg Tab (Immediate Release)) 2.5 - 5 mg PO Q6H PRN PRN Reason: pain Stop: 06/01/24 18:20 Last Admin: 05/18/24 21:18 Dose: 5 mg Documented By: [facility] Pantoprazole Sodium (Pantoprazole 40 Mg Tab) 40 mg PO DAILY [facility] Stop: 06/18/24 08:59 Last Admin: 05/19/24 09:05 Dose: 40 mg Documented By: Pravastatin Sodium (Pravastatin Sod 40 Mg Tab) 40 mg PO HS [facility] Stop: 06/17/24 20:59 Last Admin: 05/18/24 21:20 Dose: 40 mg Documented By: [facility] Rivaroxaban (Rivaroxaban 20 Mg Tab) 20 mg PO DAILY [facility] Stop: 06/18/24 08:59 Last Admin: 05/19/24 09:05 Dose: 20 mg Documented By: Sacubitril/Valsartan (Valsartan/Sacubitril 26/24mg Tab) 1 tab PO BID [facility] Stop: 06/17/24 20:59 Last Admin: 05/19/24 09:05 Dose: 1 tab Documented By: Admin: 05/18/24 21:20 Dose: 1 tab Documented By: [facility] Sennosides (Senna 8.6 Mg Tab) 8.6 mg PO BID [facility] Stop: 06/17/24 20:59 Last Admin: 05/19/24 09:06 Dose: Not Given Documented By: Admin: 05/18/24 21:18 Dose: 8.6 mg Documented By: [facility] Tamsulosin HCl (Tamsulosin Hcl 0.4 Mg Cap) 0.4 mg PO DAILY [facility] Stop: 06/18/24 08:59 Last Admin: 05/19/24 09:05 Dose: 0.4 mg Documented By: Coding Level of Care Code 55932 IN/OBS CONSULT LVL 3,45M Diagnoses Depression F32.A
[2024-05-19] MEDS: HYDROmorphone HCL 2 MG TAB PO PRN (14:59)
[2024-05-19] MEDS: AMIODARONE 200 MG TAB PO SCH (17:40)
[2024-05-19] MEDS: oxyCODONE HCL IR 5 MG TAB (IMMEDIATE RELEASE) PO PRN (19:42)
--- NOTE | 2024-05-20 06:55 | Anesthesiology Consultation ---
Date of Service May 20, 2024 Assessment & Plan (1) Encounter for pre-operative examination: Chart Review Chart Review: Acceptable Risk for Surgery and Patient NOT seen in Pre Admission Testing Consults Requested none History Surgery Operation Date: 05/20/24 07:30 Proposed Procedures p Cardioversion - Abundio Farfan MD, PhD Height/Weight Height: 6 ft Weight: 108.7 kg Allergies Allergy/AdvReac Type Severity Reaction Status Date / Time cat dander Allergy Severe CAT Verified 05/17/24 13:58 HAIR---Swelling of Lip/Tongue/Throat Medications Home Medications Medication Instructions Recorded Confirmed Last Taken aspirin 81 mg tablet,delayed 81 mg PO QAM 08/07/22 05/18/24 11/05/23 release (Adult Low Dose Aspirin) vuslpubx-nqefaqa-uidu-lutein tablet 1 tab PO QAM 08/07/22 05/18/24 11/05/23 cyanocobalamin (vitamin B-12) 500 1,000 mcg (2 x 500 mcg) PO QAM #30 01/18/23 05/18/24 11/05/23 mcg tablet tabs thiamine HCl (vitamin B1) 100 mg 100 mg PO QAM 02/05/23 05/18/24 11/05/23 tablet duloxetine 60 mg capsule,delayed 60 mg PO QAM #90 caps 10/29/23 05/18/24 11/05/23 release rivaroxaban 20 mg tablet (Xarelto) 20 mg PO DAILY 11/19/23 05/18/24 12/14/23 10:00 sennosides 8.6 mg tablet 8.6 mg PO BID 12/15/23 05/18/24 Unknown cholecalciferol (vitamin D3) 10 20 mcg PO DAILY 01/21/24 05/18/24 Unknown mcg (400 unit) tablet mirtazapine 30 mg tablet 30 mg PO HS 01/21/24 05/18/24 Unknown nitroglycerin 0.4 mg sublingual 0.4 mg sublingual DIRECTED PRN 01/21/24 05/18/24 Unknown tablet chest pin pravastatin 40 mg tablet 40 mg PO HS 01/21/24 05/18/24 Unknown vitamin E 268 mg (400 unit) capsule 268 mg PO DAILY ##0 01/21/24 05/18/24 Unknown acetaminophen 325 mg tablet 975 mg PO Q8H PRN mild pain,fever, 01/26/24 05/18/24 Unknown or headache omega 4-grp-xok-fish oil 900 1 cap PO DAILY 02/01/24 05/18/24 Unknown mg-1,400 mg capsule,delayed release doxycycline hyclate 100 mg capsule 100 mg PO BID 03/29/24 05/18/24 Unknown latanoprost 0.005 % eye drops 1 drp OPB QPM 03/29/24 05/18/24 Unknown nystatin 100,000 unit/gram topical 1 applic topical DAILY 03/29/24 05/18/24 Unknown powder vitamin B comp and C no.3 15 mg-10 1 cap PO DAILY 03/29/24 05/18/24 Unknown mg-50 mg-5 mg-300 mg capsule (B Complex Plus Vitamin C) diphenhydramine HCl 25 mg capsule 25 mg PO Q6H PRN itching #10 caps 04/07/24 05/18/24 Unknown (Benadryl) metoprolol succinate 25 mg 25 mg PO QAM #30 tabs 04/07/24 05/18/24 Unknown tablet,extended release 24 hr empagliflozin 10 mg tablet 10 mg PO DAILY #90 tabs 05/11/24 05/18/24 Unknown (Jardiance) ferrous sulfate 325 mg (65 mg 325 mg PO DAILY #90 tabs 05/11/24 05/18/24 Unknown iron) tablet sacubitril 24 mg-valsartan 26 mg 1 tab PO BID #180 tabs 05/11/24 05/18/24 Unknown tablet (Entresto) tamsulosin 0.4 mg capsule 0.4 mg PO DAILY #90 caps 05/11/24 05/18/24 Unknown gabapentin 600 mg tablet 600 mg PO TID neuropathy from 05/12/24 05/18/24 Unknown severe PVD wounds 1 month #90 tabs oxycodone 5 mg tablet See Rx Instructions PO Q6H PRN 05/12/24 05/18/24 Unknown pain 1 month #100 tabs arginine 7 gram-glutamine 7 1 ea PO BID 05/18/24 05/18/24 Unknown gram-calcium HMB 1.5 gram oral powder pack (Dom) bumetanide 1 mg tablet 1 mg PO DAILY 05/18/24 05/18/24 Unknown folic acid 1 mg tablet 1 mg PO DAILY 05/18/24 05/18/24 Unknown melatonin 3 mg tablet 6 mg PO HS 05/18/24 05/18/24 Unknown omeprazole 20 mg tablet,delayed 20 mg PO DAILY 05/18/24 05/18/24 Unknown release Active Medications Generic Name Dose Route Start Last Admin Trade Name Freq PRN Reason Stop Dose Admin Acetaminophen 975 mg 05/18/24 18:21 05/18/24 22:29 Acetaminophen 325 Mg Tab PO 06/17/24 18:20 975 mg Q8H PRN Administration mild pain,fever, or headache Amiodarone HCl 400 mg 05/19/24 17:00 05/19/24 17:40 Amiodarone 200 Mg Tab PO 06/18/24 16:59 400 mg BIDM [facility] Administration Aspirin 81 mg 05/19/24 09:00 05/19/24 09:05 Aspirin 81 Mg Ectab PO 06/18/24 08:59 81 mg QAM [facility] Administration Bumetanide 1 mg 05/19/24 09:00 05/19/24 09:06 Bumetanide 1 Mg Tab PO 06/18/24 08:59 1 mg DAILY [facility] Administration Doxycycline Hyclate 100 mg 05/18/24 21:00 05/19/24 20:02 Doxycycline Hyclate 100 Mg Cap PO 06/17/24 20:59 100 mg BID [facility] Administration Duloxetine HCl 60 mg 05/19/24 09:00 05/19/24 09:05 Duloxetine Hcl 60 Mg Cap PO 06/18/24 08:59 60 mg QAM [facility] Administration Gabapentin 600 mg 05/18/24 21:00 05/19/24 20:03 Gabapentin 600 Mg Tab PO 06/17/24 20:59 600 mg TID [facility] Administration Hydromorphone HCl 2 mg 05/19/24 14:45 05/19/24 14:59 Hydromorphone Hcl 2 Mg Tab PO 06/02/24 14:44 2 mg Q3H PRN Administration Pain Latanoprost 1 drops 05/18/24 21:00 05/19/24 19:43 Latanoprost 0.005% Op Soln 2.5 Ml Btl OPB 06/17/24 20:59 1 drops QPM [facility] Administration Melatonin 6 mg 05/18/24 21:00 05/19/24 19:42 Melatonin 3 Mg Tab PO 06/17/24 20:59 6 mg HS [facility] Administration Metoprolol Succinate 25 mg 05/19/24 09:00 05/19/24 09:05 Metoprolol Succ 25mg Ext Rel Tab PO 06/18/24 08:59 25 mg QAM [facility] Administration Mirtazapine 30 mg 05/18/24 21:00 05/19/24 20:03 Mirtazapine Tab 15 Mg Tab PO 06/17/24 20:59 30 mg HS [facility] Administration Oxycodone HCl 5 mg 05/19/24 14:47 05/19/24 19:42 Oxycodone Hcl Ir 5 Mg Tab (Immediate Release) PO 06/01/24 18:20 5 mg Q6H PRN Administration pain Pantoprazole Sodium 40 mg 05/19/24 09:00 05/19/24 09:05 Pantoprazole 40 Mg Tab PO 06/18/24 08:59 40 mg DAILY [facility] Administration Pravastatin Sodium 40 mg 05/18/24 21:00 05/19/24 20:04 Pravastatin Sod 40 Mg Tab PO 06/17/24 20:59 40 mg HS [facility] Administration Rivaroxaban 20 mg 05/19/24 09:00 05/19/24 09:05 Rivaroxaban 20 Mg Tab PO 06/18/24 08:59 20 mg DAILY [facility] Administration Sacubitril/Valsartan 1 tab 05/18/24 21:00 05/19/24 20:05 Valsartan/Sacubitril 26/24mg Tab PO 06/17/24 20:59 1 tab BID [facility] Administration Sennosides 8.6 mg 05/18/24 21:00 05/19/24 19:42 Senna 8.6 Mg Tab PO 06/17/24 20:59 8.6 mg BID [facility] Administration Tamsulosin HCl 0.4 mg 05/19/24 09:00 05/19/24 09:05 Tamsulosin Hcl 0.4 Mg Cap PO 06/18/24 08:59 0.4 mg DAILY [facility] Administration Past Medical History Medical History Open wound of left lower extremity Sepsis secondary to UTI Fever Sepsis due to skin infection Sepsis Fall Infected hardware in right leg Chronic infection of right knee UTI (urinary tract infection) Severe sepsis Venous ulcer of right leg Venous stasis ulcers of both lower extremities Idiopathic polyneuropathy History of immunosuppressive therapy Heart failure with preserved ejection fraction GERD (gastroesophageal reflux disease) Sepsis Septicemia due to Streptococcus pneumoniae Respiratory failure with hypoxia Hypomagnesemia Pneumonia Benign essential hypertension Lumbar stenosis Hx of staphylococcal infection 03/2022, w/"bacterial infection" at the same, in the rt. knee, occurrred during atrial fibrillation episode. "when he woke up, he couldn't walk." Atrial fibrillation episode occurred in 03/2022, taken to [facility], admitted to ICU for 1-2 weeks (was not intubated, but wasn't "awake either"), then to cardiac unit, then to rehab at [facility]; f/u dr. guerra in [place]>will be starting to see a infant room teacher at [facility] 2nd week of 08/2022 Myocardial Infarction "a silent one, 2019" Sleep apnea no device Exercise / Class Metabolic Activity III < 4 Walking/Shop/Light housework Past Family History Family History Grandmother (Maternal) Diabetes Daughter Diabetes Father Suicide Hypertension Denies family history of Ovarian cancer Prostate cancer Myocardial infarction Breast cancer Lung cancer Colorectal cancer Stroke Past Surgical History Surgical History Status post revision of total replacement of right knee Hx of Achilles tendon repair rt. Hx of knee surgery rt. patellar tendon repair Hx of rotator cuff surgery bilateral Hx of total knee replacement lt. Hx of total hip arthroplasty rt. History of colostomy reversal History of bowel resection for diverticulitis; w/colostomy placement for 3-4 months Hx of hernia repair near former colostomy site History of esophagogastroduodenoscopy (EGD) Hx of colonoscopy Last Colonoscopy 08/14/22, repeat 3 years in 2025 Hx of bilateral cataract extraction History of heart artery stent ~3 years ago, x2 stents, done in [place]; f/u dr guerra, [place]>will be seeing new cardio at [place] 2nd week of August 2022. History of cardiac cath ~3 years ago, SOB and "felt like throat was constricting", had "silent heart attack", x2 stents, done in [place] Social History Smoking Status: Never smoker Do You Dip or Chew Tobacco: No Hx Alcohol Use: No Alcohol type: wine alcohol intake frequency: a few times a week Hx Substance Use: No substance use type: does not use Physical Exam Vital Signs Last Vital Signs Temp 36.8 C 05/20/24 03:58 Pulse 69 05/20/24 03:58 Resp 18 05/20/24 03:58 BP 107/64 05/20/24 03:58 Pulse Ox 94 05/20/24 03:58 O2 Del Method Room Air 05/20/24 03:58 Testing Laboratory Results 05/19/24 05:31 05/19/24 10:20 PT 11.3 Seconds (9.0-12.0) 05/18/24 12:05 INR 1.0 (0.9-1.1) 05/18/24 12:05 Urine Color Yellow 05/18/24 Unknown Urine Appearance Clear (Clear) 05/18/24 Unknown Urine pH 6.0 (4.5-7.5) 05/18/24 Unknown Ur Specific [place] 1.026 (1.000-1.030) 05/18/24 Unknown Urine Protein Negative (Negative) 05/18/24 Unknown Urine Glucose (UA) 3+ (Negative) H 05/18/24 Unknown Urine Ketones Negative (Negative) 05/18/24 Unknown Urine Nitrite Negative (Negative) 05/18/24 Unknown Ur Leukocyte Esterase Negative (Negative) 05/18/24 Unknown 05/18/24 18:54 Aerobic Blood Culture - Preliminary Blood No growth in Aerobic bottle after 24 hours. Anaerobic Blood Culture - Final 05/18/24 18:44 Aerobic Blood Culture - Preliminary Blood No growth in Aerobic bottle after 24 hours. Anaerobic Blood Culture - Preliminary No growth in Anaerobic bottle after 24 hours. Electrocardiogram a flutter with rvr
[2024-05-20] MEDS ORDERED: PROPOFOL IV EMULSION 10 MG/ML 20 ML VIAL IV ONE (06:58)
[2024-05-20 07:22] LABS: Hematocrit (blood only) 41.7 % (42.0-52.0); Hemoglobin 13.1 g/dl (14.0-18.0); Mean Corpuscular Hemoglobin 30.1 pg (25.0-34.0); Mean Corpuscular Hgb Conc 31.4 g/dL (32.0-36.0); Mean Corpuscular Volume 95.9 fL (80.0-100.0); Platelet Count 194 K/uL (130-400); RDW Coefficient of Variation 19.6 % (11.5-14.5); RDW Standard Deviation 69.3 fL (36.4-46.3); Red Blood Count 4.35 M/uL (4.70-6.10); White Blood Count 7.78 K/ul (4.8-10.8)
--- NOTE | 2024-05-20 07:30 | Hospitalist Progress Note ---
Date of Service May 20, 2024 Assessment & Plan (1) Atrial flutter with rapid ventricular response: Plan: H/o paroxysmal Afib, follows with Dr. Farfan, most recent appointment 05/27/2024 with Dorie España PA-C - Suspect SOB related to poor rate control - A-flutter with rate 142 on admission - persistent A-flutter with rate in the 130s overnight, HR non-reactive to Dilt drip -> switched to amiodarone drip - Home medications ASA 81, Xarelto 20, metoprolol succinate 25 - Anticoagulated on Xarelto; has not missed doses in the last 4 weeks - H&H 13.5/42.2, TSH WNL - Troponin peaked at 92 - Cardiology consulted, appreciate recs - Continue amiodarone drip - when complete, will switch to PO amiodarone 400mg BID - Tentative plan for cardioversion tomorrow if failing to convert back to sinus rhythm - NPO at midnight (2) HFrEF (heart failure with reduced ejection fraction): Plan: - H/o HFrEF + cardiomyopathy; presenting in A-fib with RVR, complaining of SOB as well; moderately reduced LV systolic function - EF 35-40%, RV dysfunction, global hypokinesis suggestive of nonischemic etiology - Daily weights standing - patient is largely wheelchair bound, does not monitor daily weights at home, therefore uncertain what his dry weight is - I+Os - Heart healthy, low sodium (<2 g/day) - Continue outpatient medications: Bumex 1 mg daily, metoprolol succinate, Entresto, Jardiance - SCDs, promote leg elevation and frequent movement - Recheck AM labs (3) Elevated troponin: Plan: No chest pain or palpitations - Troponin peaked at ~92, no ischemic changes noted on EKG (4) Pressure ulcer of foot, stage 3: Plan: Pressure ulcer of foot, stage III/venous ulcers both lower extremities Seen by wound clinic 05/13/2024; multiple admissions secondary to sepsis related to infected hardware, on chronic suppressive doxycycline - Dress wounds with Aquacel AG per wound healing H&P- patient does this daily, wound care consulted for dressing management - No leukocytosis, afebrile, inflammatory markers WNL - lower suspicion for acute infection, additional abx treatment deferred at present - Outpatient wound culture 05/13 positive for MRSA - XR foot negative for evidence of osteomyelitis - Continue to monitor, check AM CBC - Oxycodone 5mg Q6H for pain control, PO Dilaudid 2mg Q3H PRN for breakthrough pain (5) Rheumatoid arthritis: Plan: Most recent rheum visit 04/13/2024; On multiple medications to manage pain, taking consistently, but states that the pain is still the worst it has ever been - No longer on immunosuppressive agents as he had to discontinue these in order to be treated for ongoing infection - Pain control as above (6) Anxiety and depression: Plan: Home medications: duloxetine + mirtazapine - Depressed mood secondary to health deterioration - Follows w/ psych at [place] - Denying HI/SI - Psych consulted, appreciate recs: Plan Chronic Problems: CAD- H/o PCI to LAD; aspirin plus Xarelto; pravastatin HLD- Pravastatin BPH- Tamsulosin Diet: Heart healthy VTE Prophylaxis: Xarelto Admission and Anticipated Discharge Date Admission Date: May 18, 2024 Subjective Patient reports ongoing shortness of breath that progressively developed over last 2 weeks - denies associated chest pain, palpitations. In general, unable to tell when in A-fib/flutter. Denies recent illness, fever/chills. Patient currently resides at [facility], is in the process of trying to establish home health services through the [place]. Wheelchair bound at baseline. Chronic h/o lower extremity pressure ulcers, follows with outpatient wound care center. H/o depression, follows with psychiatry at the [place] - currently on Cymbalta and Remeron. Denies SI/HI. Spoke with psychiatry after admission, states this was helpful. Review of Systems Review of Systems: as per HPI Physical Exam Physical Exam: General: Alert and oriented. No acute distress Cardiac: +tachycardia, irregular rhythm, no murmurs appreciated Respiratory: Lungs clear to auscultation bilaterally, No increased work of breathing Extremities: Diffuse bilateral LE swelling, discoloration with multiple open wounds covered with clean dressings. Distal pulses intact. Psych: AOx3, mood-affect congruence Results & Data Results & Data Vital Signs (Past 12 Hours) Vital Signs Temp Pulse Resp BP Pulse Ox O2 Del Method 05/20/24 07:16 132 H 16 102/76 94 Room Air 05/20/24 03:58 36.8 C 69 18 107/64 94 Room Air 05/19/24 23:06 36.7 C 129 H 20 105/74 94 Room Air 05/19/24 20:21 36.6 C 136 H 18 104/75 94 Room Air 05/19/24 20:00 Room Air (5) Rheumatoid arthritis Rheumatoid arthritis location: unspecified site Rheumatoid factor presence: unspecified presence Qualified Code(s): M06.9 - Rheumatoid arthritis, unspecified
[2024-05-20 07:35] LABS: BUN Creatinine Ratio 31.2 (10-20); Calcium 8.7 mg/dl (8.6-10.3); Potassium 4.9 mmol/L (3.5-5.1)
--- NOTE | 2024-05-20 08:09 | Anesthesiology Progress Note ---
Date of Service May 20, 2024 Anesthesia Post Procedure Vital Signs Vital Signs: Temp Pulse Pulse Resp BP Pulse Ox O2 Del Method 05/20/24 07:50 91 H 14 109/70 99 Oxymask 05/20/24 07:16 132 H 16 102/76 94 Room Air 05/20/24 03:58 36.8 C 69 18 107/64 94 Room Air 05/19/24 23:06 36.7 C 129 H 20 105/74 94 Room Air 05/19/24 20:21 36.6 C 136 H 18 104/75 94 Room Air 05/19/24 20:00 Room Air 05/19/24 15:55 136 H 05/19/24 15:51 36.7 C 135 H 18 95/70 L 97 Room Air 05/19/24 11:24 36.6 C 136 H 18 104/75 94 Room Air 05/19/24 09:00 Room Air O2 Flow Rate 05/20/24 07:50 10 05/20/24 07:16 05/20/24 03:58 05/19/24 23:06 05/19/24 20:21 05/19/24 20:00 05/19/24 15:55 05/19/24 15:51 05/19/24 11:24 05/19/24 09:00 Pain Intensity Generalized: Pain Intensity: 8 Transfer of Care Handoff Completed per policy Notes Mental Status: alert / awake / arousable and participated in evaluation Patient Amnestic to Procedure: Yes Nausea / Vomiting: adequately controlled Pain: adequately controlled Airway Patency, RR, SpO2: stable & adequate BP & HR: stable & adequate Hydration State: stable & adequate Anesthetic Complications: no major complications apparent and Pt Satisfied with anesthetic care
[2024-05-20 08:44] VITALS: RESP 20
[2024-05-20 10:37] VITALS: BP 108/66; TEMP 98.2; O2SAT 90
[2024-05-20 15:45] VITALS: PULSE 96
--- NOTE | 2024-05-20 15:55 | Discharge Summary ---
Date of Service May 20, 2024 Admission HPI Per Admitting Provider 78-year-old male presenting for dyspnea and found to be in A-fib with RVR at outpatient clinic at the [place]. ED course: CBC WBC 11.06, RBC 4.39, H&H 13.5/42.2, RDW 69, neutrophils 8.50, monocytes 1.21; PT/INR WNL; CMP BUN 47, BUN/creatinine 30.8, glucose 107; troponin 88.7, repeat at 92.5; BNP 304; TSH 1.2-3, magnesium 2.2; CXR cardiomegaly without acute process, prior granulomatous disease; admission EKG ? Sinus tachycardia with fusion complexes, rate around 145.; Provided with 500 mL NSS, morphine 4 mg, metoprolol tartrate 5 mg, diltiazem 10mg, and started on diltiazem drip in ED. Patient is an 78-year-old male PMHx PVD, A-fib, MRSA infection, RA, HFrEF presenting for dyspnea as well as A-fib with RVR. States over the past few weeks he is "not felt right." Notes that the symptoms started after being d ischarged from most recent hospital visit. Patient states he has been more short of breath than normal and has been concerning him. Also, has been unable to take RA medication secondary to being treated for infection. Patient has been on doxycycline ongoing for MRSA infection. He is experiencing depression per patient given his complex medical history. No SI/HI. Patient denies chest pain, palpitations, abdominal pain, N/B/D/C, LUTS, numbness/tingling, fever or chills. Took all a.m. medications. Please see Dr. Amor's attestation for adjustments/additions to treatment plan. Admission Exam Per Admitting Provider General: No acute distress Skin: Warm and dry, without rashes or lesions; RLE dressed, improved Head: Normocephalic, atraumatic Eyes: PERRL, conjunctivae clear, sclera non-icteric ENT: External ear and ear canal without swelling; nose atraumatic; good dentition Neck: Supple, no LAD; no JVD Cardio: Tachycardia, irregular irregular rhythm, no M/G/R, S1 and S2 normal Resp: No respiratory distress, Lungs CTA in all lobes bilaterally, no wheezes, rales, or rhonchi Abdomen: Soft, symmetric, nontender; No masses or hepatosplenomegaly; Bowel sounds normoactive MSK: No deformities, full ROM throughout; pulses palpable and equal; no edema. Neuro: Awake, alert; Muscle strength 5/5 bilaterally in UE/LE; Sensation intact bilaterally; CN intact Psych: Appropriate mood and affect; good judgement and insight. Principal Diagnosis A-flutter w/RVR Discharge Exam General: Alert and oriented. No acute distress Cardiac: regular rate and rhythm, no murmurs appreciated Respiratory: Lungs clear to auscultation bilaterally, No increased work of breathing Extremities: Diffuse bilateral LE swelling, discoloration with multiple open wounds covered with clean dressings. Distal pulses intact. Psych: AOx3, mood-affect congruence Discharge Data Allergies Allergy/AdvReac Type Severity Reaction Status Date / Time cat dander Allergy Severe CAT Verified 05/17/24 13:58 HAIR---Swelling of Lip/Tongue/Throat Consultations 05/18/24 14:26 ED Decision to Admit Stat 05/18/24 16:01 Consult Cardiology Routine 05/18/24 16:37 Consult Psychiatry Routine 05/19/24 10:01 Consult Anesthesiology Routine Procedures Performed Operation Date: 05/20/24 07:30 Actual Procedures p Cardioversion - Abundio Farfan MD, PhD Hospital Course (1) Atrial flutter with rapid ventricular response: (2) HFrEF (heart failure with reduced ejection fraction): (3) Elevated troponin: (4) Pressure ulcer of foot, stage 3: (5) Rheumatoid arthritis: (6) Anxiety and depression: Plan 78 y/o male presented with SOB, found to be in Afib/flutter with RVR: (1) Atrial flutter with rapid ventricular response: H/o paroxysmal Afib, follows with Dr. Farfan - Suspect SOB related to poor rate control - A-flutter with rate 142 on admission - HR non-reactive to Dilt drip -> switched to amiodarone, continue following discharge: Amiodarone 400mg PO BID - Chronic anticoagulation with Xarelto - H&H 13.5/42.2, TSH WNL - Cardiology consulted, s/p successful cardioversion with return to sinus rhythm. - ?precipitating factor: LEONARD vs infection vs other: lower suspicion for acute infection given normal WBC count, lack of fever, and ESR/CRP WNL. Patient with previous diagnosis of LEONARD, recommend retrial of nightly CPAP - suspect patient may require updated sleep study, recommend following up in the outpatient setting. (2) HFrEF (heart failure with reduced ejection fraction): - H/o HFrEF + cardiomyopathy; presented in A-fib with RVR, complaining of SOB as well; moderately reduced LV systolic function - EF 35-40%, RV dysfunction, global hypokinesis suggestive of nonischemic etiology - Daily weights, standing if able - Continue outpatient medications: Bumex 1 mg daily, metoprolol succinate, Entresto, Jardiance (3) Elevated troponin - Resolved No chest pain or palpitations - Troponin peaked at ~92, no ischemic changes noted on EKG (4) Pressure ulcer of foot, stage 3: Pressure ulcer of foot, stage III/venous ulcers both lower extremities Seen by wound clinic 05/13/2024; multiple admissions secondary to sepsis related to infected hardware, on chronic suppressive doxycycline - Wound care instructions: Dress wounds with Aquacel AG daily - No leukocytosis, afebrile, inflammatory markers WNL - lower suspicion for acute infection - Outpatient wound culture 05/13 positive for MRSA (tetracycline resistance) - will defer management of chronic suppressive therapy to outpatient team. - XR foot negative for evidence of osteomyelitis - Oxycodone 5mg Q6H largely provided adequate pain control, minimal requirement for additional spot doses (only given 1 breakthrough dose of PO Dilaudid 2 mg) (5) Rheumatoid arthritis: Most recent rheum visit 04/13/2024 - No longer on immunosuppressive agents as he had to discontinue these in order to be treated for ongoing infection - Pain control as above (6) Anxiety and depression: Continue home medications: duloxetine + mirtazapine - Depressed mood secondary to health deterioration - Follows w/ psych at [facility] - Denies HI/SI - Psych consulted, agreed with current medications (7) H/o LEONARD: - Recommend repeat sleep study if required, retrial of nightly CPAP - May also benefit from weight loss: ?eligibility for GLP-1 agonist therapy - will defer both to outpatient team. Total Time Total Time Spent Total Time Spent (In Minutes): see attending attestation Discharge Plan Discharge Items Patient Disposition: Personal Long Term Reason For Visit: AFIB W/ RVR, SOB Discharge Diagnosis: AFib w/ RVR Activity: Resume your previous activity Non-emergency contact: Primary Care Provider and Promotions Producer Call non-emergency contact if: you have any medication questions, your symptoms worsen and your pain is not controlled Follow-up/Referrals: Danny Soliman DO [Primary Care Provider] - 05/27/24 11:30 am Diet: Heart Healthy Addtl Attending Provider Instructions: You were admitted due to shortness of breath, likely caused by an abnormal heart rhythm (atrial fibrillation/flutter) - this was corrected with cardioversion. However, it is possible for this arrhythmia to recur. To reduce the likelihood of this happening, the following medication changes have been made: NEW medications: - Amiodarone: Please take 400mg (2 tabs) twice daily No other changes were made to your home medications; please continue to take them as previously directed. Arrhythmias can be caused by many things - infection and sleep apnea are two potential risk factors. In your case, we did not feel that your legs were acutely infected, though it is important that you continue to follow with the wound care center and your primary care doctor to reduce the risk of developing a new infection. Regarding your history of sleep apnea, we will communicate with your primary care doctor to make sure this is followed up on. It is possible that you may need a repeat sleep study prior to getting a new CPAP machine. Pending Studies at Discharge: No Stand-Alone Forms: My [employer], Smoking Cessation Skilled Items Patient informed of condition?: Yes DNR: No Discharge Level of Care: Other Communicable Disease: No Discharge Prognosis: Improving Lines: None Urinary Catheter: No Medications and DC Order Prescriptions: New amiodarone 200 mg Tablet 400 mg PO BIDM 30 Days Qty: 120 0RF Continued duloxetine 60 mg capsule,delayed release(DR/EC) 60 mg PO QAM Qty: 90 3RF Jardiance 10 mg tablet 10 mg PO DAILY Qty: 90 3RF ferrous sulfate 325 mg (65 mg iron) tablet 325 mg PO DAILY Qty: 90 3RF Entresto 24-26 mg tablet 1 tab PO BID Qty: 180 3RF tamsulosin 0.4 mg capsule 0.4 mg PO DAILY Qty: 90 3RF gabapentin 600 mg tablet 600 mg PO TID 30 Days Qty: 90 3RF oxycodone 5 mg tablet See Rx Instructions PO Q6H PRN (Reason: pain) 30 Days Qty: 100 0RF Rx Instructions: 1/2 to 1 tab by mouth every 6 hr as needed for severe wound and joint pain due to PVD and RA orally every 6 hours PRN; Xarelto 20 mg tablet 20 mg PO DAILY Rx Instructions: must administer with evening meal start 3 days after last eliquis dose. aspirin [Adult Low Dose Aspirin] 81 mg tablet,delayed release (DR/EC) 81 mg PO QAM Hold Instructions: Resume on 02/23/23. until PCP/surgery followup [id number] Tablet 1 tab PO QAM cyanocobalamin (vitamin B-12) 500 mcg Tablet 1,000 mcg PO QAM Qty: 30 0RF thiamine HCl (vitamin B1) 100 mg tablet 100 mg PO QAM nitroglycerin 0.4 mg Tablet, Sublingual 0.4 mg sublingual DIRECTED PRN (Reason: chest pin) vitamin E 268 mg (400 unit) Capsule 268 mg PO DAILY Qty: 0 Rx Instructions: strength not listed pravastatin 40 mg tablet 40 mg PO HS Hold Instructions: Resume on 02/09/24. Hold while on daptomycin Rx Instructions: TAKE 1 TABLET BY MOUTH ONCE DAILY mirtazapine 30 mg tablet 30 mg PO HS cholecalciferol (vitamin D3) 10 mcg (400 unit) Tablet 20 mcg PO DAILY acetaminophen 325 mg tablet 975 mg PO Q8H PRN (Reason: mild pain,fever, or headache) latanoprost 0.005 % Drops 1 drp OPB QPM Rx Instructions: into both eyes doxycycline hyclate 100 mg capsule 100 mg PO BID Hold Instructions: Resume on 04/17/24. Hold until completion of daptomycin nystatin 100,000 unit/gram powder 1 applic TOPICAL DAILY B Complex Plus Vitamin C 12-93-27-5-300 mg Capsule 1 cap PO DAILY diphenhydramine HCl [Benadryl] 25 mg Capsule 25 mg PO Q6H PRN (Reason: itching) Qty: 10 0RF metoprolol succinate 25 mg Tablet Extended Release 24 Hr 25 mg PO QAM Qty: 30 0RF melatonin 3 mg Tablet 6 mg PO HS folic acid 1 mg Tablet 1 mg PO DAILY bumetanide 1 mg tablet 1 mg PO DAILY omeprazole 20 mg Tablet,Delayed Release (Dr/Ec) 20 mg PO DAILY Dom 7-7-1.5 gram Powder In Packet 1 ea PO BID sennosides 8.6 mg Tablet 8.6 mg PO BID omega 1-yri-acs-fish oil 900-1,400 mg Capsule,Delayed Release(/Ec) 1 cap PO DAILY Discharge Orders: Discharge Order (Routine); Ordered 05/20/24 Ordered By: Cristhian Lucas Admission Data Admit Date/Time: 05/18/24 16:01 Attending Provider: Ann Lazaro Admit Provider: Shaheen Amor Primary Care Provider: Danny Soliamn Other Providers: Shaheen Amor; Tomas Colin; Jong Watson; Christopher Munoz; Abundio Farfan; Manjit Hall; Albert Adams Jr; Azam Horne; Renea Cortez; Dorie España; Indio Abbott; Indio Beauchamp; Arnoldo Stauffer; Mercedes Winter; Irwin Trinidad; Gay Charles; Mina Miles; Irwin Carpio; Bruce Logan; Josemanuel Das; Roberta Pearson; Brian Nix; Yessi Ceballos; Nimco Rich; Elmer Malcolm; Izzy Moscoso; Rachna Carter; Marii Reyes; Zandra Payne; Saadia Cazares; Mert Talley; Dionicio Birch; Irwin Roy; Kendall Garcia; Aislinn Garcia; Cheng Betancur; Mercedes Moise; Rachid Nick; Braxton Momin; Jens Rm; Jenniffer Dawson; aJe Pierre; Yeni Pierre; Aiden Busch; Zuleyma Sims; Arnoldo Rosales; Dorie Sanabria; Brooklyn Farrell; Brian Segovia; Margi Childers; Brooklyn Soriano; Mary Lou Dodson; Bel Singh; Rod Singh V; Sean Stratton; Marii Navarrete; Brando Hamm; Argelia Viramontes; Rod Aldridge; Brandt Dawson; Ramón Katz; Marilin Ferraro; Nichelle Zamora; Rod Howe; Raymond Aaron; Karol Dunn; Maxime Sheehan; Sloane Mercado; Trish Parker; Abundio Babb; Ruben Jameson; Padma English; Munira Thomas; Shahab Ramos; Betito Elise; Indio Hu; Mert Oconnor Jr; Eloisa Benjamin; Gaviota Sun; Jazmyn Crowley; Brian Qureshi; Kendall Kaur; Sandy Nunez; Gaviota Rush A.; Jamaal Pierce; Gabo Brennan; Rafy Ramos; Bienvenido Lao; Timo Ball; Trevon Bateman; Rita Wei; Mariam Murphy; Stefany Beyer; Dee Cole; Marques Hankins Jr; Lu Pugh; Margi Hernandez; Randal Pope; [facility] Other Interventions: Discharge Summary Assessment (RN) Last Done: 05/20/24 15:43 Supervising Physician Co-Signing Physician Notes Attending Physician Supervision Note: I independently interviewed and examined the patient and verified the lubin history and physical, reviewed labs and image studies and agree with findings and care plan noted above. 78 y/o M here with shortness of breath and palpitations and found to be in a. flutter with rapid rate and neuro visit and sent to ED This am 12/13 - comfortable. No chest pain, shortness of breath, fever. No pain in legs. AAOx3, No respiratory distress, 2nd right toe distal tip ulcer, 5th lateral MT ulcer without surrounding cellulitis A flutter RVR - no effect of diltiazem, started on amiodarone drip in ED - switched to PO. (has been on amiodarone but unclear why he stopped). Continued Xarelto. Cardioversion 05/20. Continue amiodarone on discharge. Acute on chronic HFrEF - Euvolemic on discharge. continue bumex home dose. continue with metoprolol succinate ER, Entresto, Jardiance, and Bumex. CAD - continue ASA, statin, b pato. LEONARD - Primary care to follow up on treatment. Has tried cpap but didn't tolerate full mask. Advised to look into partial mask. Chronic wounds - On chronic suppressive therapy with doxycycline. Recent wound culture from 05/13 - moderate growth of MRSA resistant to tetracycline. Normal procalcitonin, ESR. CRP faintly elevated. Foot xray negative Blood cx aerobic - negative. Less likely concern of infection. continued wound care. Primary care to further assess the need to continue doxycycline since he is now colonized with resistant MRSA Chronic back pain/polyneuropathy - continue oxycodone and hydromorphone prn home dose. Depression - Evaluated by psych due to report of worsening symptoms. Suspect Flutter RVR must be playing a role. Also, untreated LEONARD. continue home meds. To Increase frequency of outpatient follow up. Resident Activity Tracking Resident Involvement: Resident Care Provided Care Provided: Adult Hospital Medicine
--- NOTE | 2024-05-20 18:02 | Cardioversion ---
Date of Service May 20, 2024 PG Electrical Cardioversion Rp Electrical Cardioversion Report DC cardioversion Indication: Atrial flutter with rapid ventricular response Posting Machine Operator: Abundio Farfan MD, PhD Anesthesia: See anesthesiology report for details Consent: Risk, benefits, and alternatives of procedure were discussed in detail with the patient. Risk include but are not limited to; , stroke, AK, intubation, adverse effects of anesthesia, and skin burn. Patient's questions were answered in full. He voiced understanding and wished to proceed with cardioversion as indicated. The consent is signed in the chart. Brief description: Patient was in the cardiac holding area. Receiving oxygen via nasal cannula and monitored. He was shaved and prepped. The electrical pads were placed A-P across the left chest. He was then sedated by anesthesia (see notes for det ails). Once adequately anesthetized the oxygen was temporarily turned off and he was shocked using 200 J of synchronized energy. He converted to sinus rhythm with 1 shock. He remained in sinus rhythm confirmed by twelve-lead EKG. He was recovered per anesthesiology and had no evident adverse effects of the procedure. After completion of the recovery protocol he was deemed appropriate for discharge. Complications: None Estimated blood loss: Not applicable Summary: Successful DC cardioversion using a single 200 J synchronized shock. Patient will be maintained on amiodarone and beta-pato. He also will continue with his anticoagulation. He should follow-up in the cardiology office within 2 to 4 weeks. Coding Level of Care Code 61153 CARDIOVERSION, ELECTIVE Additional Codes Electrical Cardioversion Report ([id number])
== END 2024-05-20 16:24 | disposition home or self-care (01) | DRG 308 ==
LOC: ED 11:43 → SUATTDRO 16:01 → 2S 16:01
DX: I25.10 Atherosclerotic heart disease of native coronary artery without angina pectoris; G47.33 Obstructive sleep apnea (adult) (pediatric); Z79.82 Long term (current) use of aspirin; Z79.01 Long term (current) use of anticoagulants; N40.0 Benign prostatic hyperplasia without lower urinary tract symptoms; Z95.5 Presence of coronary angioplasty implant and graft; I25.2 Old myocardial infarction; I50.33 Acute on chronic diastolic (congestive) heart failure; R79.89 Other specified abnormal findings of blood chemistry; Z79.899 Other long term (current) drug therapy; Z82.49 Family history of ischemic heart disease and other diseases of the circulatory system; I48.0 Paroxysmal atrial fibrillation; I42.9 Cardiomyopathy, unspecified; M06.9 Rheumatoid arthritis, unspecified; M54.9 Dorsalgia, unspecified; Z86.14 Personal history of Methicillin resistant Staphylococcus aureus infection; G89.29 Other chronic pain; G62.9 Polyneuropathy, unspecified; F41.9 Anxiety disorder, unspecified; I48.92 Unspecified atrial flutter; E78.5 Hyperlipidemia, unspecified; Z91.048 Other nonmedicinal substance allergy status; L89.893 Pressure ulcer of other site, stage 3; F32.A Depression, unspecified; I11.0 Hypertensive heart disease with heart failure

== ENCOUNTER 2024-05-26 15:44 | Inpatient (IN) ==
--- NOTE | 2024-05-26 15:56 | ED Triage Note ---
Date of Service May 26, 2024 Provider in Triage Author: Thomas Green History of Present Illness This patient was briefly evaluated while in triage. An abbreviated physical exam was performed. This patient is a 78-year-old Male who was referred to the emergency department by the [facility] for evaluation of infections of both feet. They are concerned that he has an advancing infection. The patient is currently on doxycycline. He does report a history of MRSA that was tested positive 2 weeks ago. The patient rates his discomfort a 9 out of 10. Physical Exam CONSTITUTIONAL: Healthy and well nourished. HEENT: Normocephalic, atraumatic. RESPIRATORY: Clear to auscultation bilaterally with no wheezing, crackles, rhonchi or stridor. CARDIOVASCULAR: Regular rate and rhythm with no murmurs, rubs or gallops. GASTROINTESTINAL: Bowel sounds present in all quadrants. MUSCULOSKELETAL: The patient had postop shoes and dressings in place, and these were not removed in triage. INTEGUMENTARY: No rash or other significant dermatologic conditions noted. HEMATOLOGIC: No ecchymosis or petechiae. PSYCHIATRIC: Positive affect. NEUROLOGIC: No focal neurologic deficits noted. Initial orders for labs and / or imaging were placed and patient was placed in the waiting area until a bed is available. Please see further documentation for the full ED course.
[2024-05-26 16:58] LABS: Basophils # (auto) 0.02 K/uL (0.00-0.20); Basophils % (auto) 0.2 %; Eosinophils # (auto) 0.06 K/uL (0.00-0.50); Eosinophils % (auto) 0.7 %; Hematocrit (blood only) 40.9 % (42.0-52.0); Immature Granulocytes # (auto) 0.06 K/uL (0.01-0.20); Immature Granulocytes % (auto) 0.7 %; Lymphocytes # (auto) 0.83 K/uL (1.20-3.40); Lymphocytes % (auto) 9.8 %; Mean Corpuscular Hemoglobin 30.5 pg (25.0-34.0); Mean Corpuscular Hgb Conc 31.8 g/dL (32.0-36.0); Mean Platelet Volume 9.8 fL (9.4-12.4); Monocytes # (auto) 0.97 K/uL (0.11-0.59); Monocytes % (auto) 11.4 %; Neutrophils # (auto) 6.57 K/uL (1.40-6.50); Neutrophils % (auto) 77.2 %; Platelet Count 199 K/uL (130-400); RDW Coefficient of Variation 18.7 % (11.5-14.5); RDW Standard Deviation 66.6 fL (36.4-46.3); Red Blood Count 4.26 M/uL (4.70-6.10); White Blood Count 8.51 K/ul (4.8-10.8)
[2024-05-26 17:06] LABS: Alanine Aminotransferase 33 U/L (7-52); Albumin Globulin Ratio 1.4 (0.9-2); Albumin Level 3.6 gm/dl (3.4-5.0); Alkaline Phosphatase 60 U/L (34-104); Anion Gap 5 (3-11); Aspartate Aminotransferase 34 U/L (13-39); BUN Creatinine Ratio 30.2 (10-20); Bilirubin,Total 0.5 mg/dl (0.2-1.0); Blood Urea Nitrogen 42 mg/dl (6-23); C Reactive Protein 0.84 mg/dl (0-0.5); Calcium 8.9 mg/dl (8.6-10.3); Carbon Dioxide 30 mmol/L (21-32); Chloride 104 mmol/L (98-107); Globulin 2.6 gm/dl (2.5-4.0); Glucose 112 mg/dl (70-99(Fasting)); Potassium 4.8 mmol/L (3.5-5.1); Sodium 139 mmol/L (136-145); Total Protein 6.2 gm/dl (6.0-8.3)
[2024-05-26 17:22] LABS: Magnesium 2.1 mg/dl (1.7-2.4)
[2024-05-26] MEDS: fentaNYL citrate PF 100 MCG/2 ML VIAL IV STA (17:46)
[2024-05-26] MEDS: CEFEPIME 2000MG 2,000 MG/20 ML SYR IV STA (17:46)
--- NOTE | 2024-05-26 18:08 | History & Physical Report ---
Date of Service May 26, 2024 Assessment & Plan (1) Cellulitis: Plan: Patient sent in by wound care clinic on 05/26 for bilateral lower extremity foot pain and concern for cellulitis No leukocytosis; afebrile CRP mildly elevated at 0.84 on arrival PCT WNL Most recent wound culture on 05/13/2024 grew Staph aureus MRSA; susceptible to Bactrim, rifampin, vancomycin, daptomycin, and linezolid Isolation contact cautions IV daptomycin q24h; hold statin IV cefepime q8h Scheduled acetaminophen and gabapentin for pain control Oxycodone 5 mg p.o. q6h as needed for breakthrough pain Upon discharge, will need to tweak patient's chronic suppressive therapy Patient reports he is currently taking doxycycline; recent wound culture grew MRSA with resistance to tetracyclines Could consider linezolid upon discharge, among other options (2) Atrial fibrillation: Plan: Patient was reportedly in A-fib RVR at 170 bpm in triage, but he broke prior to EKG in the ED Rate controlled on admission H/o atrial flutter with RVR requiring DC cardioversion during last admission 05/18-05/20 Continue Xarelto and amiodarone (3) Pressure ulcer of foot, stage 3: Plan: Daily wound care Wound care nurse consult appreciated (4) History of MRSA infection: Plan: 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 He presented on 05/26 at the behest of the wound clinic and PCP for bilateral foot pain with concern for cellulitis. Patient was recently hospitalized at [facility] from 05/18 to 05/20 and underwent cardioversion for atrial flutter with RVR. He also had a recent wound culture on 05/13 that grew Staph aureus MRSA from his right lateral foot. Patient is currently on doxycycline chronically for suppressive therapy, however this most recent wound culture was resistant to tetracyclines. Patient took his regular morning medicine today. No recent change in medications since hospital discharge. He reports that the pain in his lower EXTR bilaterally starts at the feet and shoots upwards. He has a baseline pain of 4/10, but this can get up to 9/10 with sharp shooting pain. No exacerbating factors, can occur without movements. He has been taking Tylenol TID for the pain as well as starting gabapentin 600mg TID. While he tries to avoid opioids, he did take 2 oxycodone yesterday, which help with the pain. Patient did have an episode of N/V and liquidy. Yesterday, but believes this might be secondary to the rich foods he ate Thursday night; his diarrhea resolved this morning when he had a fully formed bowel movement. No blood in stool. No history of C. difficile infections. He does have history of cellulitis, and reports that the pain in his legs does not feel like it is burning, but he does have a hard time falling asleep due to the pain. No purulent drainage from his lower extremity wounds, but he does have significant weeping on the dorsal aspect of the right lower leg. Patient denies smoking, tobacco use. Patient's vitals are stable at time of admission. ED course: Daptomycin 400 mg IV Cefepime 2000 mg IV Fentanyl citrate 50 mcg IV ROS: Patient endorses pain in the lower EXTR bilaterally, lightheadedness with movements, ARANDA, dry cough, nausea and vomiting yesterday x 2, and diarrhea yesterday (resolved). Patient denies fever, chills, night-sweats, chest pain, chest palpitations, pleuritic CP, SOB at rest, orthopnea, burning with urination, or blood in the urine/stool. Allergies Allergy/AdvReac Type Severity Reaction Status Date / Time cat dander Allergy Severe CAT Verified 05/26/24 14:44 HAIR---Swelling of Lip/Tongue/Throat Home Medications Medication Instructions Recorded Confirmed Type aspirin 81 mg tablet,delayed 81 mg PO QAM 08/07/22 05/26/24 History release (Adult Low Dose Aspirin) kfmzdhpc-lulbytv-cznl-lutein tablet 1 tab PO QAM 08/07/22 05/26/24 History cyanocobalamin (vitamin B-12) 500 1,000 mcg (2 x 500 mcg) PO QAM #30 01/18/23 05/26/24 Rx mcg tablet tabs thiamine HCl (vitamin B1) 100 mg 100 mg PO QAM 02/05/23 05/26/24 History tablet duloxetine 60 mg capsule,delayed 60 mg PO QAM #90 caps 10/29/23 05/26/24 Rx release rivaroxaban 20 mg tablet (Xarelto) 20 mg PO DAILY 11/19/23 05/26/24 History sennosides 8.6 mg tablet 8.6 mg PO BID 12/15/23 05/26/24 History cholecalciferol (vitamin D3) 10 20 mcg PO DAILY 01/21/24 05/26/24 History mcg (400 unit) tablet mirtazapine 30 mg tablet 30 mg PO HS 01/21/24 05/26/24 History nitroglycerin 0.4 mg sublingual 0.4 mg sublingual DIRECTED PRN 01/21/24 05/26/24 History tablet chest pin pravastatin 40 mg tablet 40 mg PO HS 01/21/24 05/26/24 History vitamin E 268 mg (400 unit) capsule 268 mg PO DAILY ##0 01/21/24 05/26/24 History acetaminophen 325 mg tablet 975 mg PO Q8H PRN mild pain,fever, 01/26/24 05/26/24 History or headache omega 6-rbj-kwb-fish oil 900 1 cap PO DAILY 02/01/24 05/26/24 History mg-1,400 mg capsule,delayed release doxycycline hyclate 100 mg capsule 100 mg PO BID 03/29/24 05/26/24 History latanoprost 0.005 % eye drops 1 drp OPB QPM 03/29/24 05/26/24 History nystatin 100,000 unit/gram topical 1 applic topical DAILY 03/29/24 05/26/24 History powder vitamin B comp and C no.3 15 mg-10 1 cap PO DAILY 03/29/24 05/26/24 History mg-50 mg-5 mg-300 mg capsule (B Complex Plus Vitamin C) diphenhydramine HCl 25 mg capsule 25 mg PO Q6H PRN itching #10 caps 04/07/24 05/26/24 Rx (Benadryl) metoprolol succinate 25 mg 25 mg PO QAM #30 tabs 04/07/24 05/26/24 Rx tablet,extended release 24 hr empagliflozin 10 mg tablet 10 mg PO DAILY #90 tabs 05/11/24 05/26/24 Rx (Jardiance) ferrous sulfate 325 mg (65 mg 325 mg PO DAILY #90 tabs 05/11/24 05/26/24 Rx iron) tablet sacubitril 24 mg-valsartan 26 mg 1 tab PO BID #180 tabs 05/11/24 05/26/24 Rx tablet (Entresto) tamsulosin 0.4 mg capsule 0.4 mg PO DAILY #90 caps 05/11/24 05/26/24 Rx gabapentin 600 mg tablet 600 mg PO TID neuropathy from 05/12/24 05/26/24 Rx severe PVD wounds 1 month #90 tabs oxycodone 5 mg tablet See Rx Instructions PO Q6H PRN 05/12/24 05/26/24 Rx pain 1 month #100 tabs arginine 7 gram-glutamine 7 1 ea PO BID 05/18/24 05/26/24 History gram-calcium HMB 1.5 gram oral powder pack (Dom) bumetanide 1 mg tablet 1 mg PO DAILY 05/18/24 05/26/24 History folic acid 1 mg tablet 1 mg PO DAILY 05/18/24 05/26/24 History melatonin 3 mg tablet 6 mg PO HS 05/18/24 05/26/24 History omeprazole 20 mg tablet,delayed 20 mg PO DAILY 05/18/24 05/26/24 History release amiodarone 200 mg tablet 400 mg (2 x 200 mg) PO BIDM 30 05/20/24 05/26/24 Rx days #120 tabs Past Med/Surg History Problem List (Updated 05/26/24 @ 19:31 by Mariaa Black MD) Bilateral lower leg cellulitis (Acute) Chronic diastolic heart failure Cellulitis Cellulitis of left foot (Acute) Polyneuropathy Depression Atrial flutter (Acute) Atrial fibrillation with RVR Open wound of knee (Acute) Pressure ulcer of foot, stage 3 (Acute) Venous ulcers of both lower extremities (Acute) Pain associated with wound PVD (peripheral vascular disease) Palliative care by specialist Advanced care planning/counseling discussion Back pain VRE bacteremia Ambulatory dysfunction Infection of prosthetic right knee joint JEFFERY (acute kidney injury) (Acute) Weakness (Acute) Fall (Acute) Anemia (Acute) Hypomagnesemia (Acute) Hypotension (Acute) Bilateral cellulitis of lower leg (Acute) Peripheral neuropathy Atrial fibrillation Chronic venous stasis History of MRSA infection (Acute) Cellulitis of both feet (Acute) Rheumatoid arthritis Open wound of foot Open wound of right hand (Acute) Chronic wound Lymphangitis of lower extremity Hypomagnesemia (Acute) Open wound of left upper arm (Acute) Open wound of left arm with tendon injury Gram-negative bacteremia Cellulitis of right lower extremity (Acute) Generalized weakness (Acute) Elevated procalcitonin (Acute) Acute kidney injury superimposed on chronic kidney disease (Acute) Skin tear of right upper extremity (Acute) Open wound of left foot (Acute) Open wound of right foot (Acute) Skin tear of right hand without complication (Acute) Venous ulcer of left leg (Acute) Traumatic open wound of right lower leg (Acute) Elevated LFTs MRSA bacteremia Dislocation, hip closed (Acute) Dislocation, hip, posterior Rotator cuff arthropathy of both shoulders Abrasion of right knee (Acute) Pain of right hip Prophylactic antibiotic Left shoulder pain Acquired foot deformity (Chronic) Traumatic wound (Acute) Pressure ulcer of left foot, stage 3 (Acute) Abnormal ankle brachial index (Acute) Right knee pain Non-ST elevation VT (NSTEMI) (Acute) Leukocytosis (Acute) Myoclonus Cervical radiculopathy Neuropathy Weakness On amiodarone therapy Weakness of right hip Constipation Sepsis following procedure Rhabdomyolysis MRSA infection History of CHF (congestive heart failure) Visual disturbance Hyponatremia Hypotension Acute metabolic encephalopathy Abdominal wall abscess (Acute) HFrEF (heart failure with reduced ejection fraction) EF 40% Mar 2022, improved 55-60% August 2022 Lumbar stenosis Osteoarthritis of right knee Anxiety and depression Hypertension Coronary artery disease Atherogenic dyslipidemia Lumbar radiculopathy Lower extremity weakness Degenerative spondylolisthesis Chronic low back pain Scoliosis of lumbar region due to degenerative disease of spine in adult Dislocation of hip, right, closed (Acute) Septic joint of right knee joint COVID-19 (Acute) Incisional hernia Incarcerated intra-abdominal hernia (Acute) Adjustment disorder with mixed anxiety and depressed mood Medical History Open wound of left lower extremity Sepsis secondary to UTI Fever Sepsis due to skin infection Sepsis Fall Infected hardware in right leg Chronic infection of right knee UTI (urinary tract infection) Severe sepsis Venous ulcer of right leg Venous stasis ulcers of both lower extremities Idiopathic polyneuropathy History of immunosuppressive therapy Heart failure with preserved ejection fraction GERD (gastroesophageal reflux disease) Sepsis Septicemia due to Streptococcus pneumoniae Respiratory failure with hypoxia Hypomagnesemia Pneumonia Benign essential hypertension Lumbar stenosis Hx of staphylococcal infection 03/2022, w/"bacterial infection" at the same, in the rt. knee, occurrred during atrial fibrillation episode. "when he woke up, he couldn't walk." Atrial fibrillation episode occurred in 03/2022, taken to [facility] in [place], admitted to ICU for 1-2 weeks (was not intubated, but wasn't "awake either"), then to cardiac unit, then to rehab at [facility]; f/u dr. guerra in [place]>will be starting to see a supply chain intern at [facility] 2nd week of 08/2022 Myocardial Infarction "a silent one2019" Sleep apnea no device Surgical History Status post revision of total replacement of right knee Hx of Achilles tendon repair rt. Hx of knee surgery rt. patellar tendon repair Hx of rotator cuff surgery bilateral Hx of total knee replacement lt. Hx of total hip arthroplasty rt. History of colostomy reversal History of bowel resection for diverticulitis; w/colostomy placement for 3-4 months Hx of hernia repair near former colostomy site History of esophagogastroduodenoscopy (EGD) Hx of colonoscopy Last Colonoscopy 08/14/22, repeat 3 years in 2025 Hx of bilateral cataract extraction History of heart artery stent ~3 years ago, x2 stents, done in [place]; f/u dr guerra, [place]>will be seeing new cardio at [facility] week of August 2022. History of cardiac cath ~3 years ago, SOB and "felt like throat was constricting", had "silent heart attack", x2 stents, done in [place] Family History Grandmother (Maternal) Diabetes Daughter Diabetes Father Suicide Hypertension Denies family history of Ovarian cancer Prostate cancer Myocardial infarction Breast cancer Lung cancer Colorectal cancer Stroke Social History Smoking Status: Never smoker Second Hand Exposure: No; Do You Dip or Chew Tobacco: No; Hx Alcohol Use: No Hx Substance Use: No Preferred Language: Latvian Communication Ability: Effective Visual Impairment: Limited Hearing Ability: Normal Vascular Surgeon Required: No Beliefs That Will Affect Care: None marital status: Single Current Living Situation: Alone Current Living Situation Comment: Independent living facility current occupational status: retired How many Children do You have: 2 Feels Safe at Home: Yes Childhood Exposure to Second-Hand Smoke: Yes Diet: regular caffeine: Yes Dental Care, Regularly: Yes Physical Activity Frequency: Does not Exercise Seatbelt Use: always Sunscreen Use: Yes Assistive Devices: Walker and Wheelchair Review of Systems 2 Review of Systems: See HPI above Physical Exam 2 Physical Exam: General: no acute distress; pleasant affect; son at bedside; non-toxic appearing; well-nourished; cooperative; SpO2 98% on RA HEENT: normocephalic, atraumatic; no scleral icterus; PERRLA w/ EOMs intact; vision and hearing grossly intact Neck: supple; no lymphadenopathy; trachea midline Skin: warm, dry without signs of tenting; no cyanosis; no rashes, bruising, lesions, or erythema noted CV: chest wall NTP; RRR; S1/S2 normal; no murmurs/rubs/gallops; pulses intact and symmetric at radial, DP, and PT Lungs: no acute respiratory distress; symmetrical chest wall expansion; clear breath sounds across all lung hathaway w/o adventitious sounds; no wheezing ABD: Soft, NTP; BS present; no rebound/guarding; no distention MSK: no tics or fasciculations; no edema noted in the LEs b/l, nonerythematous LEs: Multiple ulcerations and superficial wounds in various stages of healing (see photos below); wound on the dorsal aspect of the anterior right antonio with significant weeping (see photo #3); wound on the lateral aspect of the right foot with mild purulent drainage where MRSA swab was taken (see photo #5); both legs are erythematous and swollen with +2 pitting edema extending up to the knees; both legs are tender to palpation Neuro: A&Ox3; normal mood and affect; fluent speech; no focal deficits Results & Data Results & Data Vital Signs (Past 12 Hours) Vital Signs Temp Pulse Pulse Resp BP BP Pulse Ox 05/26/24 17:21 70 18 137/84 98 05/26/24 15:51 36.9 C 164 H 16 110/69 93 O2 Del Method 05/26/24 17:21 05/26/24 15:51 Room Air Laboratory Results Abnormal lab results 05/26/24 Range/Units 16:24 RBC 4.26 L (4.70-6.10) M/uL Hgb 13.0 L (14.0-18.0) g/dl Hct 40.9 L (42.0-52.0) % MCHC 31.8 L (32.0-36.0) g/dL RDW Std Deviation 66.6 H (36.4-46.3) fL RDW Coeff of Sammie 18.7 H (11.5-14.5) % Neut # (Auto) 6.57 H (1.40-6.50) K/uL Lymph # (Auto) 0.83 L (1.20-3.40) K/uL Milam # (Auto) 0.97 H (0.11-0.59) K/uL BUN 42 H (6-23) mg/dl BUN/Creatinine Ratio 30.2 H (10-20) Glucose 112 H (70-99(Fasting)) mg/dl C-Reactive Protein 0.84 H (0-0.5) mg/dl ECG Additional Comments: ECG revealed NSR at 74 bpm; QTc 472 Code Status & VTE Plan Code Status Full code VTE Prophylaxis Plan VTE Prophylaxis will be ordered: Yes Supervising Physician Co-Signing Physician Notes Patient seen and examined, chart reviewed, case discussed with Kendall Chowdhury PA-C and I agree with the assessment and plan as above except as otherwise noted Labs and images reviewed 78yo M with a history of MRSA and multiple R knee prosthetic infections recently transfered to [facility] for progressive infection who was referrign in for worsening bilateral cellulitis and weeping discharge from his legs bilaterally. On exam of RIGHT lateral leg does have some purulent discharge, and was previously MRSA+ from this area with prior cellulitis. Lowell is not on an SSRI and has limited options for treatment of his MRSA infection. Given diffuse demarcated erythema with additional purulence agree with both gram-negative and MRSA coverage on admission. His last culture was resistant to tetracyclines so doxycycline he is not going to be appropriate for his cellulitis. Unfortunately he is also on SNRI medications and this limits the use of linezolid. In anticipation of potential need for extended IV antibiotics blood cultures were ordered to ensure that there is no bacteremia. Otherwise agree with above.patient is nondistressed although somewhat discouraged that being in the hospital during the holidays would like to get back home as soon as possible. No other questions or concerns at bedside PT is not septic. Stable. CRP 0.8. Trended for AM. PCT wnl. No leukocytosis. Transiently in Afib RVR, has coverted prior to hospitalist assessment. Continue Xarelto. See photos in H&P. Agree w/ above. PG Care Time/CCT Total # of Minutes Spent Total Time Spent with Patient: Total time spent is greater than 50% in coordination of care (as documented) at patient's floor/unit and/or counseling patient: [place] [id number] INT INP/OBS CARE 3/75MIN Patient Type Established Medical Decision Making High Complexity Diagnoses Cellulitis L03.90 Atrial fibrillation I48.91 Pressure injury of right foot, stage 3 L89.893 Laterality: right History of MRSA infection Z86.14 Chronic diastolic heart failure I50.32 (3) Pressure ulcer of foot, stage 3 Laterality: right Qualified Code(s): L89.893 - Pressure ulcer of other site, stage 3
--- NOTE | 2024-05-26 18:31 | Emergency Department Note ---
Impression & Plan Bilateral lower leg cellulitis ED Provider Note HISTORY OF PRESENT ILLNESS: Patient is an 78-year-old male presenting with bilateral leg pain and swelling. Patient follows with wound clinic and was referred from wound clinic due to concern for potential cellulitis. Patient is on chronic suppressive doxycycline for previous history of MRSA bacteremia. Patient denies any fevers. He reports he had an episode of nausea yesterday. He reports both of his legs are very tender and uncomfortable. He reports they developed some redness in the last 3 to 4 days. Reports the redness has progressed up his leg. Denies any chest pain or shortness of breath. ROS: as above PHYSICAL EXAM: Constitutional: Patient appears in no acute distress. HENT: Head: Normocephalic and atraumatic. Eyes: EOMI, PERRL Mouth/Throat: Mucous membranes moist. Neck: Trachea midline. Neck supple. Cardiovascular: Tachycardic with regular rhythm. No murmurs, rubs or gallops. Intact distal pulses. Pulmonary/Chest: No respiratory distress. Breath sounds clear and equal bilaterally. No wheezes or rales. Abdominal: Abdomen soft, no tenderness, rebound or guarding. Musculoskeletal: Bilateral lower extremities are edematous with multiple wounds noted. Patient is noted to have diffuse erythema to his bilateral feet extending to his proximal antonio bilaterally. Bilateral lower extremities are tender to palpation without any palpable crepitus. Skin: Warm and dry. Psychiatric: Appropriate mood and affect for situation. Neurological: Alert and keenly responsive. CN II-XII grossly intact, moving all extremities equally and fully. MDM: - Vitals signs showed tachycardia. - History obtained via patient. History as above. 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 At this time, monitor showed rate of 71 bpm with normal sinus rhythm, per my interpretation. - External medical records reviewed. Primary care visit note from today was reviewed. Patient was seen for cellulitis of the left foot. His right foot has recently grown MRSA that is totally resistant. He was referred to the emergency department for further evaluation. - EKG interpreted by myself showed normal sinus rhythm. Rate 74 bpm. No acute ischemic changes. Noted to have a prolonged QT at 426. - Laboratory workup interpreted by myself showed normal WBC; stable electrolytes; elevated CRP (0.84); normal procalcitonin; normal lactate; normal ESR - Given patient's MRSA history, started on IV cefepime and daptomycin. Given 50 mcg IV fentanyl for pain management. - Discussion was had with classification case manager about patient's case and need for admission - Hospitalist consulted for admission - Patient admitted to [facility] service for further evaluation and management. ASSESSMENT AND PLAN: Diagnosis: bilateral lower leg cellulitis Plan: admit Past Med/Surg History Problem List (Updated 05/26/24 @ 19:31 by Mariaa Black MD) Bilateral lower leg cellulitis (Acute) Chronic diastolic heart failure Cellulitis Cellulitis of left foot (Acute) Polyneuropathy Depression Atrial flutter (Acute) Atrial fibrillation with RVR Open wound of knee (Acute) Pressure ulcer of foot, stage 3 (Acute) Venous ulcers of both lower extremities (Acute) Pain associated with wound PVD (peripheral vascular disease) Palliative care by specialist Advanced care planning/counseling discussion Back pain VRE bacteremia Ambulatory dysfunction Infection of prosthetic right knee joint JEFFERY (acute kidney injury) (Acute) Weakness (Acute) Fall (Acute) Anemia (Acute) Hypomagnesemia (Acute) Hypotension (Acute) Bilateral cellulitis of lower leg (Acute) Peripheral neuropathy Atrial fibrillation Chronic venous stasis History of MRSA infection (Acute) Cellulitis of both feet (Acute) Rheumatoid arthritis Open wound of foot Open wound of right hand (Acute) Chronic wound Lymphangitis of lower extremity Hypomagnesemia (Acute) Open wound of left upper arm (Acute) Open wound of left arm with tendon injury Gram-negative bacteremia Cellulitis of right lower extremity (Acute) Generalized weakness (Acute) Elevated procalcitonin (Acute) Acute kidney injury superimposed on chronic kidney disease (Acute) Skin tear of right upper extremity (Acute) Open wound of left foot (Acute) Open wound of right foot (Acute) Skin tear of right hand without complication (Acute) Venous ulcer of left leg (Acute) Traumatic open wound of right lower leg (Acute) Elevated LFTs MRSA bacteremia Dislocation, hip closed (Acute) Dislocation, hip, posterior Rotator cuff arthropathy of both shoulders Abrasion of right knee (Acute) Pain of right hip Prophylactic antibiotic Left shoulder pain Acquired foot deformity (Chronic) Traumatic wound (Acute) Pressure ulcer of left foot, stage 3 (Acute) Abnormal ankle brachial index (Acute) Right knee pain Non-ST elevation MN (NSTEMI) (Acute) Leukocytosis (Acute) Myoclonus Cervical radiculopathy Neuropathy Weakness On amiodarone therapy Weakness of right hip Constipation Sepsis following procedure Rhabdomyolysis MRSA infection History of CHF (congestive heart failure) Visual disturbance Hyponatremia Hypotension Acute metabolic encephalopathy Abdominal wall abscess (Acute) HFrEF (heart failure with reduced ejection fraction) EF 40% Mar 2022, improved 55-60% August 2022 Lumbar stenosis Osteoarthritis of right knee Anxiety and depression Hypertension Coronary artery disease Atherogenic dyslipidemia Lumbar radiculopathy Lower extremity weakness Degenerative spondylolisthesis Chronic low back pain Scoliosis of lumbar region due to degenerative disease of spine in adult Dislocation of hip, right, closed (Acute) Septic joint of right knee joint COVID-19 (Acute) Incisional hernia Incarcerated intra-abdominal hernia (Acute) Adjustment disorder with mixed anxiety and depressed mood Medical History Open wound of left lower extremity Sepsis secondary to UTI Fever Sepsis due to skin infection Sepsis Fall Infected hardware in right leg Chronic infection of right knee UTI (urinary tract infection) Severe sepsis Venous ulcer of right leg Venous stasis ulcers of both lower extremities Idiopathic polyneuropathy History of immunosuppressive therapy Heart failure with preserved ejection fraction GERD (gastroesophageal reflux disease) Sepsis Septicemia due to Streptococcus pneumoniae Respiratory failure with hypoxia Hypomagnesemia Pneumonia Benign essential hypertension Lumbar stenosis Hx of staphylococcal infection 03/2022, w/"bacterial infection" at the same, in the rt. knee, occurrred during atrial fibrillation episode. "when he woke up, he couldn't walk." Atrial fibrillation episode occurred in 03/2022, taken to [facility], admitted to ICU for 1-2 weeks (was not intubated, but wasn't "awake either"), then to cardiac unit, then to rehab at [facility] in [place]; f/u dr. guerra in [place]>will be starting to see a angle furnaceman at [facility] 2nd week of 08/2022 Myocardial Infarction "a silent one, 2019" Sleep apnea no device Surgical History Status post revision of total replacement of right knee Hx of Achilles tendon repair rt. Hx of knee surgery rt. patellar tendon repair Hx of rotator cuff surgery bilateral Hx of total knee replacement lt. Hx of total hip arthroplasty rt. History of colostomy reversal History of bowel resection for diverticulitis; w/colostomy placement for 3-4 months Hx of hernia repair near former colostomy site History of esophagogastroduodenoscopy (EGD) Hx of colonoscopy Last Colonoscopy 08/14/22, repeat 3 years in 2025 Hx of bilateral cataract extraction History of heart artery stent ~3 years ago, x2 stents, done in [place]; f/u dr guerra, [place]>will be seeing new cardio at [place] of August 2022. History of cardiac cath ~3 years ago, SOB and "felt like throat was constricting", had "silent heart attack", x2 stents, done in [place] Family History Grandmother (Maternal) Diabetes Daughter Diabetes Father Suicide Hypertension Denies family history of Ovarian cancer Prostate cancer Myocardial infarction Breast cancer Lung cancer Colorectal cancer Stroke Social History Smoking Status: Never smoker Second Hand Exposure: No; Do You Dip or Chew Tobacco: No; Hx Alcohol Use: No Hx Substance Use: No Preferred Language: Danish Communication Ability: Effective Visual Impairment: Limited Hearing Ability: Normal Manager Information Required: No Beliefs That Will Affect Care: None marital status: Single Current Living Situation: Alone Current Living Situation Comment: Independent living facility current occupational status: retired How many Children do You have: 2 Feels Safe at Home: Yes Childhood Exposure to Second-Hand Smoke: Yes Diet: regular caffeine: Yes Dental Care, Regularly: Yes Physical Activity Frequency: Does not Exercise Seatbelt Use: always Sunscreen Use: Yes Assistive Devices: Walker and Wheelchair Allergies Allergies Allergy/AdvReac Type Severity Reaction Status Date / Time cat dander Allergy Severe CAT Verified 05/26/24 14:44 HAIR---Swelling of Lip/Tongue/Throat Home Meds Home Medications Medication Instructions Recorded Confirmed aspirin 81 mg tablet,delayed 81 mg PO QAM 08/07/22 05/26/24 release (Adult Low Dose Aspirin) [id number]-xbhmgdf-sigy-lutein tablet 1 tab PO QAM 08/07/22 05/26/24 thiamine HCl (vitamin B1) 100 mg 100 mg PO QAM 02/05/23 05/26/24 tablet rivaroxaban 20 mg tablet (Xarelto) 20 mg PO DAILY 11/19/23 05/26/24 sennosides 8.6 mg tablet 8.6 mg PO BID 12/15/23 05/26/24 cholecalciferol (vitamin D3) 10 20 mcg PO DAILY 01/21/24 05/26/24 mcg (400 unit) tablet mirtazapine 30 mg tablet 30 mg PO HS 01/21/24 05/26/24 nitroglycerin 0.4 mg sublingual 0.4 mg sublingual DIRECTED PRN 01/21/24 05/26/24 tablet chest pin pravastatin 40 mg tablet 40 mg PO HS 01/21/24 05/26/24 vitamin E 268 mg (400 unit) capsule 268 mg PO DAILY ##0 01/21/24 05/26/24 acetaminophen 325 mg tablet 975 mg PO Q8H PRN mild pain,fever, 01/26/24 05/26/24 or headache omega 4-wyc-zak-fish oil 900 1 cap PO DAILY 02/01/24 05/26/24 mg-1,400 mg capsule,delayed release doxycycline hyclate 100 mg capsule 100 mg PO BID 03/29/24 05/26/24 latanoprost 0.005 % eye drops 1 drp OPB QPM 03/29/24 05/26/24 nystatin 100,000 unit/gram topical 1 applic topical DAILY 03/29/24 05/26/24 powder vitamin B comp and C no.3 15 mg-10 1 cap PO DAILY 03/29/24 05/26/24 mg-50 mg-5 mg-300 mg capsule (B Complex Plus Vitamin C) arginine 7 gram-glutamine 7 1 ea PO BID 05/18/24 05/26/24 gram-calcium HMB 1.5 gram oral powder pack (Dom) bumetanide 1 mg tablet 1 mg PO DAILY 05/18/24 05/26/24 folic acid 1 mg tablet 1 mg PO DAILY 05/18/24 05/26/24 melatonin 3 mg tablet 6 mg PO HS 05/18/24 05/26/24 omeprazole 20 mg tablet,delayed 20 mg PO DAILY 05/18/24 05/26/24 release Previous Rx's Medication Instructions Recorded cyanocobalamin (vitamin B-12) 500 1,000 mcg (2 x 500 mcg) PO QAM #30 01/18/23 mcg tablet tabs duloxetine 60 mg capsule,delayed 60 mg PO QAM #90 caps 10/29/23 release diphenhydramine HCl 25 mg capsule 25 mg PO Q6H PRN itching #10 caps 04/07/24 (Benadryl) metoprolol succinate 25 mg 25 mg PO QAM #30 tabs 04/07/24 tablet,extended release 24 hr empagliflozin 10 mg tablet 10 mg PO DAILY #90 tabs 05/11/24 (Jardiance) ferrous sulfate 325 mg (65 mg 325 mg PO DAILY #90 tabs 05/11/24 iron) tablet sacubitril 24 mg-valsartan 26 mg 1 tab PO BID #180 tabs 05/11/24 tablet (Entresto) tamsulosin 0.4 mg capsule 0.4 mg PO DAILY #90 caps 05/11/24 gabapentin 600 mg tablet 600 mg PO TID neuropathy from 05/12/24 severe PVD wounds 1 month #90 tabs oxycodone 5 mg tablet See Rx Instructions PO Q6H PRN 05/12/24 pain 1 month #100 tabs amiodarone 200 mg tablet 400 mg (2 x 200 mg) PO BIDM 30 05/20/24 days #120 tabs Results & Data (ED) Vital Signs Vital Signs - 24 hr 05/26/24 15:51 05/26/24 17:21 05/26/24 18:15 Temperature 36.9 C Temperature Source Temporal Artery Scan Pulse Rate 64 71 Pulse Rate [Apical] 70 Respiratory Rate 16 18 Respiratory Effort / Characteristics Non-Labored Spontaneous Respiratory Depth Normal Normal Blood Pressure 110/69 Blood Pressure [Right Arm] 137/84 Blood Pressure Mean 82 Blood Pressure Mean [Right Arm] 101 Pulse Oximetry 93 98 Oxygen Delivery Method Room Air Sepsis Recent Fever Within 48 Hours No Sepsis New/Unexplained Change in Mental Status N/A Sepsis Action Taken by Nursing No Action Required Laboratory Data 05/26/24 16:24 05/26/24 16:24 Lab Results 05/26/24 Range/Units 16:24 WBC 8.51 (4.8-10.8) K/ul RBC 4.26 L (4.70-6.10) M/uL Hgb 13.0 L (14.0-18.0) g/dl Hct 40.9 L (42.0-52.0) % MCV 96.0 (80.0-100.0) fL MCH 30.5 (25.0-34.0) pg MCHC 31.8 L (32.0-36.0) g/dL RDW Std Deviation 66.6 H (36.4-46.3) fL RDW Coeff of Sammie 18.7 H (11.5-14.5) % Plt Count 199 (130-400) K/uL MPV 9.8 (9.4-12.4) fL Immature Gran % (Auto) 0.7 % Neut % (Auto) 77.2 % Lymph % (Auto) 9.8 % [place] % (Auto) 11.4 % Eos % (Auto) 0.7 % Baso % (Auto) 0.2 % Neut # (Auto) 6.57 H (1.40-6.50) K/uL Lymph # (Auto) 0.83 L (1.20-3.40) K/uL [place] # (Auto) 0.97 H (0.11-0.59) K/uL Eos # (Auto) 0.06 (0.00-0.50) K/uL Baso # (Auto) 0.02 (0.00-0.20) K/uL Immature Gran # (Auto) 0.06 (0.01-0.20) K/uL ESR 11 (0-20) mm/hr Sodium 139 (136-145) mmol/L Potassium 4.8 (3.5-5.1) mmol/L Chloride 104 (98-107) mmol/L Carbon Dioxide 30 (21-32) mmol/L Anion Gap 5 (3-11) BUN 42 H (6-23) mg/dl Creatinine 1.39 (0.6-1.4) mg/dl Est Cr Clr Drug Dosing Not Reportable eGFR 51.25 BUN/Creatinine Ratio 30.2 H (10-20) Glucose 112 H (70-99(Fasting)) mg/dl Lactate 1.5 (0.4-2.0) mmol/L Calcium 8.9 (8.6-10.3) mg/dl Magnesium 2.1 (1.7-2.4) mg/dl Total Bilirubin 0.5 (0.2-1.0) mg/dl AST 34 (13-39) U/L ALT 33 (7-52) U/L Alkaline Phosphatase 60 (34-104) U/L C-Reactive Protein 0.84 H (0-0.5) mg/dl Total Protein 6.2 (6.0-8.3) gm/dl Albumin 3.6 (3.4-5.0) gm/dl Globulin 2.6 (2.5-4.0) gm/dl Albumin/Globulin Ratio 1.4 (0.9-2) Procalcitonin 0.08 (0-0.5) ng/ml Administered Medications Daptomycin 400 mg/ Syringe 8 mls @ 4 mls/min IV Q24H [facility]; Protocol Stop: 06/02/24 17:59 Last Admin: 05/26/24 19:00 Dose: 4 mls/min Documented By: CHANTEL Discontinued Medications Fentanyl Citrate (Fentanyl Citrate Pf 100 Mcg/2 Ml Vial) 50 mcg IV NOW STA Stop: 05/26/24 17:19 Last Admin: 05/26/24 17:46 Dose: 50 mcg Documented By: DIANA Cefepime HCl (Maxipime 2000mg) 2,000 mg in 20 mls @ 5 mls/min IV NOW STA; Protocol Stop: 05/26/24 17:23 Last Admin: 05/26/24 17:46 Dose: 5 mls/min Documented By: DIANA Discharge Plan Visit Data Chief Complaint: Skin Problem Stated Complaint: CELLULITS ON FOOT AND ANTONIO AND MERCA ED Provider: Mariaa Black Discharge Problem: Bilateral lower leg cellulitis Forms Stand Alone Forms: My [facility] Prescriptions Prescriptions: No Action duloxetine 60 mg capsule,delayed release(DR/EC) 60 mg PO QAM Qty: 90 3RF Jardiance 10 mg tablet 10 mg PO DAILY Qty: 90 3RF ferrous sulfate 325 mg (65 mg iron) tablet 325 mg PO DAILY Qty: 90 3RF Entresto 24-26 mg tablet 1 tab PO BID Qty: 180 3RF tamsulosin 0.4 mg capsule 0.4 mg PO DAILY Qty: 90 3RF gabapentin 600 mg tablet 600 mg PO TID 30 Days Qty: 90 3RF oxycodone 5 mg tablet See Rx Instructions PO Q6H PRN (Reason: pain) 30 Days Qty: 100 0RF Rx Instructions: 1/2 to 1 tab by mouth every 6 hr as needed for severe wound and joint pain due to PVD and RA orally every 6 hours PRN; Xarelto 20 mg tablet 20 mg PO DAILY Rx Instructions: must administer with evening meal start 3 days after last eliquis dose. aspirin [Adult Low Dose Aspirin] 81 mg tablet,delayed release (DR/EC) 81 mg PO QAM Hold Instructions: Resume on 02/23/23. until PCP/surgery followup yziuyziu-asuutzj-qprr-lutein Tablet 1 tab PO QAM cyanocobalamin (vitamin B-12) 500 mcg Tablet 1,000 mcg PO QAM Qty: 30 0RF thiamine HCl (vitamin B1) 100 mg tablet 100 mg PO QAM nitroglycerin 0.4 mg Tablet, Sublingual 0.4 mg sublingual DIRECTED PRN (Reason: chest pin) vitamin E 268 mg (400 unit) Capsule 268 mg PO DAILY Qty: 0 Rx Instructions: strength not listed pravastatin 40 mg tablet 40 mg PO HS Hold Instructions: Resume on 04/17/24. Please hold while taking Daptomycin Rx Instructions: TAKE 1 TABLET BY MOUTH ONCE DAILY mirtazapine 30 mg tablet 30 mg PO HS cholecalciferol (vitamin D3) 10 mcg (400 unit) Tablet 20 mcg PO DAILY acetaminophen 325 mg tablet 975 mg PO Q8H PRN (Reason: mild pain,fever, or headache) latanoprost 0.005 % Drops 1 drp OPB QPM Rx Instructions: into both eyes doxycycline hyclate 100 mg capsule 100 mg PO BID Hold Instructions: Resume on 04/17/24. Hold until completion of daptomycin nystatin 100,000 unit/gram powder 1 applic TOPICAL DAILY B Complex Plus Vitamin C 86-02-27-5-300 mg Capsule 1 cap PO DAILY diphenhydramine HCl [Benadryl] 25 mg Capsule 25 mg PO Q6H PRN (Reason: itching) Qty: 10 0RF metoprolol succinate 25 mg Tablet Extended Release 24 Hr 25 mg PO QAM Qty: 30 0RF melatonin 3 mg Tablet 6 mg PO HS folic acid 1 mg Tablet 1 mg PO DAILY bumetanide 1 mg tablet 1 mg PO DAILY omeprazole 20 mg Tablet,Delayed Release (Dr/Ec) 20 mg PO DAILY Dom 7-7-1.5 gram Powder In Packet 1 ea PO BID amiodarone 200 mg Tablet 400 mg PO BIDM 30 Days Qty: 120 0RF sennosides 8.6 mg Tablet 8.6 mg PO BID omega 5-iqm-pvq-fish oil 900-1,400 mg Capsule,Delayed Release(Dr/Ec) 1 cap PO DAILY Referrals Referrals: Danny Soliman DO [Primary Care Provider] -
[2024-05-26] MEDS: DAPTOmycin 400 MG in SYRINGE 0 ML IV SCH (19:00)
[2024-05-26] MEDS ORDERED: diphenhydrAMINE Capsule 25 MG CAP PO PRN (21:02)
[2024-05-26] MEDS ORDERED: ACETAMINOPHEN 325 MG TAB PO PRN (21:02)
[2024-05-26] MEDS ORDERED: ONDANSETRON INJ 2 MG/ML 2 ML VIAL IV PRN (21:02)
[2024-05-26] MEDS: LATANOPROST 0.005% OP SOLN 2.5 ML BTL OPB SCH (21:59)
[2024-05-26] MEDS: MELATONIN 3 MG TAB PO SCH (21:59)
[2024-05-26] MEDS: VALSARTAN/SACUBITRIL 26/24MG TAB PO SCH (21:59)
[2024-05-26] MEDS: MIRTAZAPINE TAB 15 MG TAB PO SCH (21:59)
[2024-05-26] MEDS: GABAPENTIN 600 MG TAB PO SCH (21:59)
[2024-05-26] MEDS: Patient's HEIGHT &/or WEIGHT Needed STA ×2 (22:00)
[2024-05-26] MEDS: oxyCODONE HCL IR 5 MG TAB (IMMEDIATE RELEASE) PO PRN (22:12)
[2024-05-26] MEDS: SENNA 8.6 MG TAB PO SCH (22:12)
[2024-05-27] MEDS: CEFEPIME 2000MG 2,000 MG/20 ML SYR IV SCH (05:47)
[2024-05-27 06:23] LABS: Basophils # (auto) 0.02 K/uL (0.00-0.20); Basophils % (auto) 0.3 %; Eosinophils # (auto) 0.06 K/uL (0.00-0.50); Eosinophils % (auto) 0.9 %; Hematocrit (blood only) 37.8 % (42.0-52.0); Hemoglobin 11.9 g/dl (14.0-18.0); Immature Granulocytes # (auto) 0.05 K/uL (0.01-0.20); Immature Granulocytes % (auto) 0.8 %; Lymphocytes # (auto) 0.93 K/uL (1.20-3.40); Lymphocytes % (auto) 14.4 %; Mean Corpuscular Hemoglobin 30.3 pg (25.0-34.0); Mean Corpuscular Hgb Conc 31.5 g/dL (32.0-36.0); Mean Corpuscular Volume 96.2 fL (80.0-100.0); Mean Platelet Volume 9.7 fL (9.4-12.4); Monocytes % (auto) 10.9 %; Neutrophils # (auto) 4.68 K/uL (1.40-6.50); Neutrophils % (auto) 72.7 %; Platelet Count 162 K/uL (130-400); RDW Coefficient of Variation 18.6 % (11.5-14.5); RDW Standard Deviation 67.2 fL (36.4-46.3); Red Blood Count 3.93 M/uL (4.70-6.10); White Blood Count 6.44 K/ul (4.8-10.8)
[2024-05-27 06:47] LABS: BUN Creatinine Ratio 30.3 (10-20); C Reactive Protein 1.19 mg/dl (0-0.5); Calcium 8.5 mg/dl (8.6-10.3); Creatinine Clr Calc Pharmacy 64.3 ml/min; Potassium 4.6 mmol/L (3.5-5.1)
[2024-05-27] MEDS: FERROUS SULFATE 325 MG TAB PO SCH (07:28)
[2024-05-27] MEDS: DULoxetine HCL 60 MG CAP PO SCH (07:28)
[2024-05-27] MEDS: AMIODARONE 200 MG TAB PO SCH (07:29)
[2024-05-27] MEDS: PANTOprazole 40 MG TAB PO SCH (07:29)
[2024-05-27] MEDS: BUMETANIDE 1 MG TAB PO SCH (07:29)
[2024-05-27] MEDS: METOPROLOL SUCC 25MG EXT REL TAB PO SCH (07:29)
[2024-05-27] MEDS: ASPIRIN 81 MG ECTAB PO SCH (07:29)
[2024-05-27] MEDS: EMPAGLIFLOZIN 10 MG TAB PO SCH (07:29)
[2024-05-27] MEDS: TAMSULOSIN HCL 0.4 MG CAP PO SCH (07:29)
--- NOTE | 2024-05-27 12:23 | Hospitalist Progress Note ---
Date of Service May 27, 2024 Assessment & Plan (1) Cellulitis: Plan: Patient sent in by wound care clinic on 05/26 for bilateral lower extremity foot pain and concern for cellulitis Right foot x-ray: Without osteomyelitis CRP: 0.84 -> 1.19 - Continue to trend Wound culture: Pending Blood culture: Pending Infectious disease consulted (patient was [place] [facility], has been lost to follow-up, should arrange local ID follow-up at discharge) - Continue daptomycin (hold statin) and cefepime - Hold doxycycline while on Dapto, however outpatient suppression for prior joint infection does not need to be adjusted since cultures specific to the organism in his joint were sensitive to Doxy AM CBC, BMP, CRP (2) Atrial fibrillation: Plan: Patient was reportedly in A-fib RVR at 170 bpm in triage, but he broke prior to EKG in the ED H/o atrial flutter with RVR requiring DC cardioversion during last admission 05/18-05/20 Continue Xarelto and amiodarone Has been sinus rhythm on telemetry (3) Pressure ulcer of foot, stage 3: Plan: Daily wound care Wound care nurse consult appreciated (4) History of MRSA infection: Plan: 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 I agree w/ the lubin components of her documentation. Shaheen Vance MD Subjective patient seen this morning lying in bed, reports being depressed as he is back in the hospital and missing out on holiday festivities. Sleep reports having pain in his feet yesterday but no pain today Does not feel when he is in A-fib, did not know that him was heart was fast in the ER until he was on the monitor. Telemetrysinus rhythm 70s and 80s Review of Systems Review of Systems: All systems reviewed & are unremarkable except as noted in Subjective Physical Exam Physical Exam: General: NAD, lying in bed, flat affect but reasonable Resp: normal respiratory effort, lungs clear to auscultation CV: RRR, no murmur, Abd: normal bowel sounds, non tender, no hepatosplenomegaly Extremities: erythema to bilateral feet. 2+ edema to bilateral feet, erythema improves as moving up his shins. Open wounds to bilateral shins Neuro: A&O x3, Results & Data Results & Data Vital Signs (Past 12 Hours) Vital Signs Temp Pulse Pulse Resp BP Pulse Ox O2 Del Method 05/27/24 07:11 98.1 F 76 18 158/91 H 96 Room Air 05/27/24 06:56 77 05/27/24 03:53 98.1 F 77 20 144/77 H 95 Room Air 05/27/24 00:23 98.2 F 79 20 132/79 94 Room Air Laboratory Results CBC, chemistry, CRP reviewed wound cultures and blood cultures reviewed PG Care Time/CCT Total # of Minutes Spent Total Time Spent with Patient: Total time spent is greater than 50% in coordination of care (as documented) at patient's floor/unit and/or counseling patient: Coding Level of Care Code 35371 SUB INP/OBS CARE 3/50MIN Diagnoses Cellulitis L03.90 Atrial fibrillation I48.91 Pressure injury of right foot, stage 3 L89.893 Laterality: right History of MRSA infection Z86.14 Chronic diastolic heart failure I50.32 (3) Pressure ulcer of foot, stage 3 Laterality: right Qualified Code(s): L89.893 - Pressure ulcer of other site, stage 3
--- NOTE | 2024-05-27 12:24 | Infectious Disease Consult ---
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 s/p DAIR + vanc x 6wks followed by doxy suppression, right knee PJI 02/2024 at [place] s/p I+D on 02/19 with cx + Enterobacter cloacae, on abx ending 04/06 (was dcd on cefepime, changed to ertapenem 03/18 due to JEFFERY) and doxy suppression for prior MRSA, afib, CAD, depression, chronic venous stasis, peripheral neuropathy, chronic low back pain 2/2 spinal stenosis, L knee TKA, B/l rotator cuff surgery, R hip arthroplasty, admission 03/2024 with VRE faecium bacteremia (TTE without vegetations, right knee aspiration neg, PICC removed for ?line infection) s/p daptomycin x 2wks (ended 04/15), admission 05/18-05/20 for aflutter with RVR s/p cardioversion who presented on 05/26 with bilateral foot pain and redness x 3-4 days with c/f cellulitis by outpatient wound care and PCP. He had wound cx from right foot on 05/13 that had grown MRSA with resistance to tetracycline. Here, he has, been afebrile, vss. Initial labs with WBC 6.44, Cr 1.39, AST/ALT wnl. CRP 1.19, PCT 0.08. 05/18 right foot XR negative for acute OM. Cultures are sent. He has been started on daptomycin and cefepime. ID consulted 05/27. He has blood and WCX in process. Will continue on broad coverage for now awaiting cultures and clinical improvement. I do not think outpatient suppr ession for his prior PJI needs to be adjusted based on lower extremity skin cultures since doxy is specific to the organism that was isolated in his prosthetic joint. # Bilateral lower extremity cellulitis with open wounds # h/o right knee PJI x 2 -prior cx MRSA and E cloacae on doxy suppression # h/o RA - follow up on wound and blood cx - continue daptomycin 400mg (4-6mg/kg) IV daily (CrCl 64, BMI 33) - continue cefepime 2g IV q12h - outpatient doxycycline and statin on hold while on daptomycin - final regimen pending cx and clinical improvement ID will continue to follow. Please note that there will be no ID notes over the weekend. If questions or concerns arise, please contact the Infectious Disease Call Center and ask to speak with the covering ID physician. Dr. Rich will take over on Thursday. Carmen Joy MD [facility], Division of Infectious Diseases Consultation Information Consultation was provided via telemedicine using two-way real-time interactive telecommunication between the patient and the telemedicine provider. For the duration of the visit, the provider was performing the assessment from a different facility than the patient. This includesuse of bluetooth stethoscope forauscultationperformed by the telepresenter that the telemedicine provider can hear if described in the physical exam. [employer] contact information: Please call [facility] Call Center [phone]. (Phone Number For Physician Use Only) After establishing a telemedicine visit, patient was: Patient was verified with two unique identifiers, Patient/authorized rep acknowledged consent and understanding and Gave permission to continue telehealth session Time Spent with Patient: Initial => 75 min History of Present Illness Reason for Consultation: cellulitis, Hx of MRSA, needs lifelong abx Attending Physician: Shaheen Vance MD History of Present Illness 78yo M with h/o rheumatoid arthritis (on rinvoq), right cata[place] septic knee 2/2 CONS/strep c/b postinfectious arthritis s/p right TKA in 10/2022, 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 s/p DAIR + vanc x 6wks followed by doxy suppression, right knee PJI 02/2024 at [place] s/p I+D on 02/19 with cx + Enterobacter cloacae, on abx ending 04/06 (was dcd on cefepime, changed to ertapenem 03/18 due to JEFFERY) and doxy suppression for prior MRSA, afib, CAD, depression, chronic venous stasis, peripheral neuropathy, chronic low back pain 2/2 spinal stenosis, L knee TKA, B/l rotator cuff surgery, R hip arthroplasty, admission 03/2024 with VRE faecium bacteremia (TTE without vegetations, right knee aspiration neg, PICC removed for ?line infection) s/p daptomycin x 2wks (ended 04/15), admission 05/18-05/20 for aflutter with RVR s/p cardioversion who presented on 05/26 with bilateral foot pain and redness x 3-4 days with c/f cellulitis. He was seen by wound care and PCP earlier in the day and they were concerned for infection and advised he go to the ED. He had wound cx from right foot on 05/13 that had grown MRSA with resistance to tetracycline. He reported having pain in his lower legs starting from the feet and shoots up. He also reported having liquidy stools recently but this has since resolved and has had formed BMs. Here, he has, been afebrile, vss. Initial labs with WBC 6.44, Cr 1.39, AST/ALT wnl. CRP 1.19, PCT 0.08. 05/18 right foot XR negative for acute OM. Cultures are sent. He has been started on daptomycin and cefepime. ID consulted 05/27. On evaluation, he has pain in both feet. No pain in any joints including right knee. He has chronic back pain, has had spinal stenosis. No acute worsening. He uses a wheelchair and bumps into things, which is why he has wounds on both knees. He does also have a right hip replacement x 2. No abdominal pain, v/d, sob, chest pain. He has only been on doxycycline. Allergies Allergy/AdvReac Type Severity Reaction Status Date / Time cat dander Allergy Severe CAT Verified 05/26/24 14:44 HAIR---Swelling of Lip/Tongue/Throat Home Medications Medication Instructions Recorded Confirmed Type aspirin 81 mg tablet,delayed 81 mg PO QAM 08/07/22 05/26/24 History release (Adult Low Dose Aspirin) qbmrnbdt-hjtcxzq-qapq-lutein tablet 1 tab PO QAM 08/07/22 05/26/24 History cyanocobalamin (vitamin B-12) 500 1,000 mcg (2 x 500 mcg) PO QAM #30 01/18/23 05/26/24 Rx mcg tablet tabs thiamine HCl (vitamin B1) 100 mg 100 mg PO QAM 02/05/23 05/26/24 History tablet duloxetine 60 mg capsule,delayed 60 mg PO QAM #90 caps 10/29/23 05/26/24 Rx release rivaroxaban 20 mg tablet (Xarelto) 20 mg PO DAILY 11/19/23 05/26/24 History sennosides 8.6 mg tablet 8.6 mg PO BID 12/15/23 05/26/24 History cholecalciferol (vitamin D3) 10 20 mcg PO DAILY 01/21/24 05/26/24 History mcg (400 unit) tablet mirtazapine 30 mg tablet 30 mg PO HS 01/21/24 05/26/24 History nitroglycerin 0.4 mg sublingual 0.4 mg sublingual DIRECTED PRN 01/21/24 05/26/24 History tablet chest pin pravastatin 40 mg tablet 40 mg PO HS 01/21/24 05/26/24 History vitamin E 268 mg (400 unit) capsule 268 mg PO DAILY ##0 01/21/24 05/26/24 History acetaminophen 325 mg tablet 975 mg PO Q8H PRN mild pain,fever, 01/26/24 05/26/24 History or headache omega 9-fzv-wak-fish oil 900 1 cap PO DAILY 02/01/24 05/26/24 History mg-1,400 mg capsule,delayed release doxycycline hyclate 100 mg capsule 100 mg PO BID 03/29/24 05/26/24 History latanoprost 0.005 % eye drops 1 drp OPB QPM 03/29/24 05/26/24 History nystatin 100,000 unit/gram topical 1 applic topical DAILY 03/29/24 05/26/24 History powder vitamin B comp and C no.3 15 mg-10 1 cap PO DAILY 03/29/24 05/26/24 History mg-50 mg-5 mg-300 mg capsule (B Complex Plus Vitamin C) diphenhydramine HCl 25 mg capsule 25 mg PO Q6H PRN itching #10 caps 04/07/24 05/26/24 Rx (Benadryl) metoprolol succinate 25 mg 25 mg PO QAM #30 tabs 10/31/24 12/19/24 Rx tablet,extended release 24 hr empagliflozin 10 mg tablet 10 mg PO DAILY #90 tabs 05/11/24 05/26/24 Rx (Jardiance) ferrous sulfate 325 mg (65 mg 325 mg PO DAILY #90 tabs 05/11/24 05/26/24 Rx iron) tablet sacubitril 24 mg-valsartan 26 mg 1 tab PO BID #180 tabs 05/11/24 05/26/24 Rx tablet (Entresto) tamsulosin 0.4 mg capsule 0.4 mg PO DAILY #90 caps 05/11/24 05/26/24 Rx gabapentin 600 mg tablet 600 mg PO TID neuropathy from 05/12/24 05/26/24 Rx severe PVD wounds 1 month #90 tabs oxycodone 5 mg tablet See Rx Instructions PO Q6H PRN 05/12/24 05/26/24 Rx pain 1 month #100 tabs arginine 7 gram-glutamine 7 1 ea PO BID 05/18/24 05/26/24 History gram-calcium HMB 1.5 gram oral powder pack (Dom) bumetanide 1 mg tablet 1 mg PO DAILY 05/18/24 05/26/24 History folic acid 1 mg tablet 1 mg PO DAILY 05/18/24 05/26/24 History melatonin 3 mg tablet 6 mg PO HS 05/18/24 05/26/24 History omeprazole 20 mg tablet,delayed 20 mg PO DAILY 05/18/24 05/26/24 History release amiodarone 200 mg tablet 400 mg (2 x 200 mg) PO BIDM 30 05/20/24 05/26/24 Rx days #120 tabs Patient History Medical History Open wound of left lower extremity Sepsis secondary to UTI Fever Sepsis due to skin infection Sepsis Fall Infected hardware in right leg Chronic infection of right knee UTI (urinary tract infection) Severe sepsis Venous ulcer of right leg Venous stasis ulcers of both lower extremities Idiopathic polyneuropathy History of immunosuppressive therapy Heart failure with preserved ejection fraction GERD (gastroesophageal reflux disease) Sepsis Septicemia due to Streptococcus pneumoniae Respiratory failure with hypoxia Hypomagnesemia Pneumonia Benign essential hypertension Lumbar stenosis Hx of staphylococcal infection 03/2022, w/"bacterial infection" at the same, in the rt. knee, occurrred during atrial fibrillation episode. "when he woke up, he couldn't walk." Atrial fibrillation episode occurred in 03/2022, taken to [facility] in [place], admitted to ICU for 1-2 weeks (was not intubated, but wasn't "awake either"), then to cardiac unit, then to rehab at [facility]; f/u dr. guerra in [place]>will be starting to see a senior compliance analyst at [facility] 2nd week of 08/2022 Myocardial Infarction "a silent one, 2019" Sleep apnea no device Surgical History Status post revision of total replacement of right knee Hx of Achilles tendon repair rt. Hx of knee surgery rt. patellar tendon repair Hx of rotator cuff surgery bilateral Hx of total knee replacement lt. Hx of total hip arthroplasty rt. History of colostomy reversal History of bowel resection for diverticulitis; w/colostomy placement for 3-4 months Hx of hernia repair near former colostomy site History of esophagogastroduodenoscopy (EGD) Hx of colonoscopy Last Colonoscopy 08/14/22, repeat 3 years in 2025 Hx of bilateral cataract extraction History of heart artery stent ~3 years ago, x2 stents, done in [place]; f/u dr guerra, [place]>will [facility] seeing new [facility] 2022. History of cardiac cath ~3 years ago, SOB and "felt like throat was constricting", had "silent heart attack", x2 stents, done in [place] Family History Grandmother (Maternal) Diabetes Daughter Diabetes Father Suicide Hypertension Denies family history of Ovarian cancer Prostate cancer Myocardial infarction Breast cancer Lung cancer Colorectal cancer Stroke Social History Smoking Status: Never smoker Second Hand Exposure: No; Do You Dip or Chew Tobacco: No; Hx Alcohol Use: Yes Alcohol type: wine Alcohol Intake Frequency: 4 or More x per/Week Hx Substance Use: No Preferred Language: Romansh Communication Ability: Effective Visual Impairment: Limited Hearing Ability: Normal Clinical Consultant Required: No Beliefs That Will Affect Care: None marital status: Single Current Living Situation: Other Current Living Situation Comment: resides at independent living facility ([facility]) current occupational status: retired How many Children do You have: 2 Feels Safe at Home: Yes Childhood Exposure to Second-Hand Smoke: Yes Diet: regular caffeine: Yes Dental Care, Regularly: Yes Physical Activity Frequency: Does not Exercise Seatbelt Use: always Sunscreen Use: Yes Assistive Devices: Glasses Assistive Devices Comment: glasses with pt. Pt uses wheelchair at baseline, not with pt. Review of System 10-point review of systems reviewed and are negative except for as above. Physical Exam Physical Exam: General: Awake, alert, no acute distress HEENT: NC/AT, EOMI, mmm Neck: supple Lungs: Clear Heart: nl S1/S2 Abdomen: soft, NT/ND Ext: both feet are bright red with erythema extending up to lower legs bl, open wounds also on both lower legs Results & Data Vital Signs (Past 12 Hours) Vital Signs Temp Pulse Pulse Resp BP Pulse Ox O2 Del Method 05/27/24 07:11 36.7 C 76 18 158/91 H 96 Room Air 05/27/24 06:56 77 05/27/24 03:53 36.7 C 77 20 144/77 H 95 Room Air 05/27/24 00:23 36.8 C 79 20 132/79 94 Room Air Laboratory Results Labs reviewed. Diagnostic Findings Imaging reviewed.
[2024-05-27] MEDS: RIVAROXABAN 20 MG TAB PO SCH (16:36)
[2024-05-28 06:30] LABS: Basophils # (auto) 0.02 K/uL (0.00-0.20); Basophils % (auto) 0.3 %; Eosinophils # (auto) 0.07 K/uL (0.00-0.50); Eosinophils % (auto) 1.1 %; Hematocrit (blood only) 38.5 % (42.0-52.0); Hemoglobin 12.2 g/dl (14.0-18.0); Immature Granulocytes # (auto) 0.03 K/uL (0.01-0.20); Immature Granulocytes % (auto) 0.5 %; Lymphocytes # (auto) 0.84 K/uL (1.20-3.40); Lymphocytes % (auto) 12.8 %; Mean Corpuscular Hemoglobin 30.3 pg (25.0-34.0); Mean Corpuscular Hgb Conc 31.7 g/dL (32.0-36.0); Mean Corpuscular Volume 95.8 fL (80.0-100.0); Mean Platelet Volume 9.8 fL (9.4-12.4); Monocytes % (auto) 12.2 %; Neutrophils % (auto) 73.1 %; Platelet Count 158 K/uL (130-400); RDW Coefficient of Variation 18.7 % (11.5-14.5); RDW Standard Deviation 66.3 fL (36.4-46.3); Red Blood Count 4.02 M/uL (4.70-6.10); White Blood Count 6.56 K/ul (4.8-10.8)
[2024-05-28 06:50] LABS: BUN Creatinine Ratio 31.5 (10-20); C Reactive Protein 0.97 mg/dl (0-0.5); Calcium 8.7 mg/dl (8.6-10.3); Potassium 4.2 mmol/L (3.5-5.1)
[2024-05-28] MEDS: BUMETANIDE 1 MG TAB PO SCH (08:53)
--- NOTE | 2024-05-28 12:37 | Electrocardiogram Report ---
Test Reason : Blood Pressure : */* mmHG Vent. Rate : 74 BPM Atrial Rate : 74 BPM P-R Int : 182 ms QRS Dur : 112 ms QT Int : 426 ms P-R-T Axes : 18 -36 1 degrees QTcB Int : 472 ms Normal sinus rhythm Left axis deviation Nonspecific T wave abnormality Prolonged QT Abnormal ECG When compared with ECG of 20-May-2024 07:47, Fusion complexes are no longer Present Nonspecific T wave abnormality now evident in Anterior leads Confirmed by Christopher Munoz ([id number]) on 05/28/2024 12:37:11 PM Referred By: Danny Soliman Confirmed By: Christopher Munoz
--- NOTE | 2024-05-28 13:48 | Hospitalist Progress Note ---
Date of Service May 28, 2024 Assessment & Plan (1) Cellulitis: Plan: Patient sent in by wound care clinic on 05/26 for bilateral lower extremity foot pain and concern for cellulitis Right foot x-ray: Without osteomyelitis CRP: 0.84 -> 1.19---> 0.97 Wound culture: staph aureus, sensitivities pending Blood culture: no growth at 24 hours Infectious disease consulted (patient was previously seeing [facility] ID, has been lost to follow-up, should arrange local ID follow-up at discharge) - Continue daptomycin (hold statin) and cefepime - Hold doxycycline while on Dapto, however outpatient suppression for prior joint infection does not need to be adjusted since cultures specific to the organism in his joint were sensitive to Doxy (2) Atrial fibrillation: Plan: Patient was reportedly in A-fib RVR at 170 bpm in triage, but he broke prior to EKG in the ED H/o atrial flutter with RVR requiring DC cardioversion during last admission 05/18-05/20 Continue Xarelto and amiodarone Has been sinus rhythm on telemetry (3) Pressure ulcer of foot, stage 3: Plan: Daily wound care Wound care nurse consult appreciated (4) History of MRSA infection: Plan: History of recurrent MRSA infections and right prosthetic knee infections - lifelong doxy suppression - per ID this can be continued after current dapto course (5) Chronic diastolic heart failure: Plan: Continue metoprolol, Entresto, Jardiance, and Bumex - bumex dose adjusted to 0.5 mg daily per last cardiology note Plan Disposition: continued inpatient stay, following cultures VTE PPx: Continue Xarelto family updated at bedside 05/27 and by phone 05/28 Admission and Anticipated Discharge Date Admission Date: May 26, 2024 Supervising Physician Co-Signing Physician Notes Attending Attestation - Chart reviewed, care plan d/w ISREAL Carbajal. I agree w/ the lubin components of her documentation. Shaheen Vance MD Subjective patient seen lying in bed, still anxious to go home and attend to all the things he needs to get done before [place] was happy to get pizza today no acute foot pain, but states overall pain is worse since he has not been able to take his RA meds Frustrated with having to wait for cultures. Tele [id number] Physical Exam Physical Exam: General: NAD, lying in bed, flat affect but reasonable Resp: normal respiratory effort, lungs clear to auscultation CV: RRR, no murmur, Abd: normal bowel sounds, non tender, no hepatosplenomegaly Extremities: erythema to bilateral feet much improved. 2+ edema to bilateral feet, erythema improves as moving up his shins. Open wounds to bilateral shins - dressing in place Neuro: A&O x3, Results & Data Results & Data Vital Signs (Past 12 Hours) Vital Signs Temp Pulse Pulse Resp BP BP Pulse Ox 05/28/24 10:51 98.8 F 78 16 108/64 94 05/28/24 07:13 77 05/28/24 07:09 98.1 F 74 18 167/88 H 94 05/28/24 03:37 98.1 F 82 18 131/75 91 O2 Del Method 05/28/24 10:51 Room Air 05/28/24 07:13 05/28/24 07:09 Room Air 05/28/24 03:37 Room Air Laboratory Results cbc, chemistry and crp reviewed Blood cultures reviewed wound cultures reviewed PG Care Time/CCT Total # of Minutes Spent Total Time Spent with Patient: Total time spent is greater than 50% in coordination of care (as documented) at patient's floor/unit and/or counseling patient: Coding Level of Care Code 44634 SUB INP/OBS CARE 3/50MIN Diagnoses Cellulitis L03.90 Atrial fibrillation I48.91 Pressure injury of right foot, stage 3 L89.893 Laterality: right History of MRSA infection Z86.14 Chronic diastolic heart failure I50.32 (3) Pressure ulcer of foot, stage 3 Laterality: right Qualified Code(s): L89.893 - Pressure ulcer of other site, stage 3
[2024-05-29 06:30] LABS: Basophils # (auto) 0.02 K/uL (0.00-0.20); Basophils % (auto) 0.3 %; Eosinophils % (auto) 1.3 %; Hematocrit (blood only) 40.7 % (42.0-52.0); Immature Granulocytes # (auto) 0.05 K/uL (0.01-0.20); Immature Granulocytes % (auto) 0.7 %; Lymphocytes # (auto) 0.97 K/uL (1.20-3.40); Lymphocytes % (auto) 12.6 %; Mean Corpuscular Hemoglobin 30.7 pg (25.0-34.0); Mean Corpuscular Hgb Conc 31.9 g/dL (32.0-36.0); Mean Platelet Volume 10.1 fL (9.4-12.4); Monocytes # (auto) 0.86 K/uL (0.11-0.59); Monocytes % (auto) 11.2 %; Neutrophils # (auto) 5.68 K/uL (1.40-6.50); Neutrophils % (auto) 73.9 %; Platelet Count 162 K/uL (130-400); RDW Coefficient of Variation 18.7 % (11.5-14.5); RDW Standard Deviation 66.5 fL (36.4-46.3); Red Blood Count 4.24 M/uL (4.70-6.10); White Blood Count 7.68 K/ul (4.8-10.8)
[2024-05-29 06:47] LABS: BUN Creatinine Ratio 32.9 (10-20); C Reactive Protein 0.94 mg/dl (0-0.5); Calcium 8.8 mg/dl (8.6-10.3); Creatinine Clr Calc Pharmacy 50.8 ml/min; Potassium 4.4 mmol/L (3.5-5.1)
[2024-05-29 07:33] VITALS: PULSE 68; RESP 18; TEMP 98.6; O2SAT 95
[2024-05-29] MEDS: SODIUM CHLORIDE 0.9% 500 ML IV ONE (09:46)
--- NOTE | 2024-05-29 10:33 | Discharge Summary ---
Discharge Summary Date of Service May 29, 2024 Principal Dx & Hospital Course #1 = Principal Diagnosis (1) Cellulitis: Patient sent in by wound care clinic on 05/26 for bilateral lower extremity foot pain and concern for cellulitis Right foot x-ray: Without osteomyelitis CRP: 0.84 -> 1.19---> 0.97 Wound culture: staph aureus, sensitive to bactrim - educated on the need to stay hydrated while on this to prevent kidney injury. BMP ordered for next week, results to PCP Blood culture: no growth at 24 hours Infectious disease consulted ([place] was [place] [facility] [place], has been lost to follow-up, should arrange local ID follow-up at discharge) - Hold doxycycline while on Dapto, however outpatient suppression for prior joint infection does not need to be adjusted since cultures specific to the organism in his joint were sensitive to Doxy Received daptomycin while in the hospital, discharged on Bactrim to complete a total 10-day course. Should resume doxycycline lifelong after completion of Bactrim. Referral made to local infectious disease. Continue follow-up with wound care. Should have daily dressing changes with Aquacel Ag and Optifoam on top. PT OT Suggested rehab patient declined we will go home and continue home therapy at [facility]. 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 Will require close wound care follow-up Outpatient BMP ordered for patient completion next week to monitor for kidney injury and Bactrim Medication Changes From Visit Bactrim twice daily x 7 days Bumex changed on med list to 0.5 mg daily with additional 0.5 mg as needed per last cardiology note Admission HPI Per Admitting Provider Lowell is a pleasant 78yo male with PMHx of MRSA infection (on doxycycline ppx), prosthetic right knee infection, CAD, CHF, sepsis, rhabdomyolysis, NSTEMI, atrial fibrillation (on Xarelto), chronic venous stasis, peripheral neuropathy, and cellulitis. He presented on 05/26 at the behest of the wound clinic and PCP for bilateral foot pain with concern for cellulitis. Patient was recently hospitalized at [facility] from 05/18 to 05/20 and underwent cardioversion for atrial flutter with RVR. He also had a recent wound culture on 05/13 that grew Staph aureus MRSA from his right lateral foot. Patient is currently on doxycycline chronically for suppressive therapy, however this most recent wound culture was resistant to tetracyclines. Patient took his regular morning medicine today. No recent change in medications since hospital discharge. He reports that the pain in his lower EXTR bilaterally starts at the feet and shoots upwards. He has a baseline pain of 4/10, but this can get up to 9/10 with sharp shooting pain. No exacerbating factors, can occur without movements. He has been taking Tylenol TID for the pain as well as starting gabapentin 600mg TID. While he tries to avoid opioids, he did take 2 oxycodone yesterday, which help with the p ain. Patient did have an episode of N/V and liquidy. Yesterday, but believes this might be secondary to the rich foods he ate Thursday night; his diarrhea resolved this morning when he had a fully formed bowel movement. No blood in stool. No history of C. difficile infections. He does have history of cellulitis, and reports that the pain in his legs does not feel like it is burning, but he does have a hard time falling asleep due to the pain. No purulent drainage from his lower extremity wounds, but he does have significant weeping on the dorsal aspect of the right lower leg. Patient denies smoking, tobacco use. Patient's vitals are stable at time of admission. ED course: Daptomycin 400 mg IV Cefepime 2000 mg IV Fentanyl citrate 50 mcg IV ROS: Patient endorses pain in the lower EXTR bilaterally, lightheadedness with movements, ARANDA, dry cough, nausea and vomiting yesterday x 2, and diarrhea yesterday (resolved). Patient denies fever, chills, night-sweats, chest pain, chest palpitations, pleuritic CP, SOB at rest, orthopnea, burning with urination, or blood in the urine/stool. Discharge Exam General: NAD, lying in bed, flat affect but reasonable Resp: normal respiratory effort, lungs clear to auscultation CV: RRR, no murmur, Abd: normal bowel sounds, non tender, no hepatosplenomegaly Extremities: erythema to bilateral feet much improved. 2+ edema to bilateral feet, leg significantly more purple in color today however blanchable and good pulses. Suggestive of venous insufficiency coloring improves when legs are elevated. Open wounds to bilateral shins - dressing in place Neuro: A&O x3, Discharge Plan Discharge Items Patient Disposition: Home - Self-Care Reason For Visit: LE WOUNDS, MRSA CELLULITIS Discharge Diagnosis: LE cellulitis Activity: Resume your previous activity Weightbearing: Full weightbearing Non-emergency contact: Primary Care Provider and Specialist Call non-emergency contact if: you have any medication questions and your symptoms worsen Follow-up/Referrals: Patricia Horne CRNP [Nurse Practitioner] - (follow up [facility] for continued wound care ) Danny Soliman DO [Primary Care Provider] - (keep appointment 05/31 ) Diet: Heart Healthy Ambulatory Orders: Basic Metabolic Panel (Routine) Timeframe: [id number] Location: Determined by Patient Ordered By: Belle Bernstein Attending Provider Instructions: Mr. Palacio, You were hospitalized after concerns for worsening infection/cellulitis. The culture grew MRSA, thankfully sensitive to Bactrim. This has been sent to your pharmacy, take the first dose tonight. It is VERY important that you are staying hydrated while taking the Bactrim because it can be hard on your kidneys. I have ordered labs (BMP) for you to have done next week, results will go to your PCP. You can do this at any [facility] location. Continue with daily wound care - aquacel Ag with the optifoam on top. You should continue to follow with the wound care center. I will place a referral to local infectious disease doctor. However, because we know the MRSA that was growing in your infected joint in the past was sensitive to doxycycline it is okay to resume the doxycycline for line. This should be resumed after you have completed the course of Bactrim Continue to wear your compression stockings. No other changes to your home medications. Continue to work with therapy to get stronger. CONTACT YOUR PRIMARY CARE PROVIDER if you experience any of the following: Shortness of breath or difficulty breathing Fevers or chills Feeling tired with normal activity or experiencing dizziness or fainting Difficulty following your treatment plan, or difficulty taking medications CALL 911 OR GO TO THE EMERGENCY DEPARTMENT if you experience any of the following: Severe abdominal pain or nausea/vomiting Severe chest pain, or chest pain that radiates (moves) to your jaw or arm Sudden, severe shortness of breath or difficulty breathing Thank you for allowing us to participate in your care. Happy Holidays, enjoy this time with your family! Belle Carbajal PA-C Pending Studies at Discharge: Yes (blood cultures ) Stand-Alone Forms: My [facility], Smoking Cessation Medications and DC Order Prescriptions: New sulfamethoxazole-trimethoprim [Bactrim DS] 800-160 mg tablet 1 tab PO BID 7 Days Qty: 14 0RF Continued duloxetine 60 mg capsule,delayed release(DR/EC) 60 mg PO QAM Qty: 90 3RF Jardiance 10 mg tablet 10 mg PO DAILY Qty: 90 3RF ferrous sulfate 325 mg (65 mg iron) tablet 325 mg PO DAILY Qty: 90 3RF Entresto 24-26 mg tablet 1 tab PO BID Qty: 180 3RF tamsulosin 0.4 mg capsule 0.4 mg PO DAILY Qty: 90 3RF gabapentin 600 mg tablet 600 mg PO TID 30 Days Qty: 90 3RF oxycodone 5 mg tablet See Rx Instructions PO Q6H PRN (Reason: pain) 30 Days Qty: 100 0RF Rx Instructions: 1/2 to 1 tab by mouth every 6 hr as needed for severe wound and joint pain due to PVD and RA orally every 6 hours PRN; Xarelto 20 mg tablet 20 mg PO DAILY Rx Instructions: must administer with evening meal start 3 days after last eliquis dose. aspirin [Adult Low Dose Aspirin] 81 mg tablet,delayed release (DR/EC) 81 mg PO QAM Hold Instructions: Resume on 02/23/23. until PCP/surgery followup [id number] Tablet 1 tab PO QAM cyanocobalamin (vitamin B-12) 500 mcg Tablet 1,000 mcg PO QAM Qty: 30 0RF thiamine HCl (vitamin B1) 100 mg tablet 100 mg PO QAM nitroglycerin 0.4 mg Tablet, Sublingual 0.4 mg sublingual DIRECTED PRN (Reason: chest pin) vitamin E 268 mg (400 unit) Capsule 268 mg PO DAILY Qty: 0 Rx Instructions: strength not listed pravastatin 40 mg tablet 40 mg PO HS Hold Instructions: Resume on 02/09/24. Hold while on daptomycin Rx Instructions: TAKE 1 TABLET BY MOUTH ONCE DAILY mirtazapine 30 mg tablet 30 mg PO HS cholecalciferol (vitamin D3) 10 mcg (400 unit) Tablet 20 mcg PO DAILY acetaminophen 325 mg tablet 975 mg PO Q8H PRN (Reason: mild pain,fever, or headache) latanoprost 0.005 % Drops 1 drp OPB QPM Rx Instructions: into both eyes nystatin 100,000 unit/gram powder 1 applic TOPICAL DAILY B Complex Plus Vitamin C 53-79-20-5-300 mg Capsule 1 cap PO DAILY diphenhydramine HCl [Benadryl] 25 mg Capsule 25 mg PO Q6H PRN (Reason: itching) Qty: 10 0RF metoprolol succinate 25 mg Tablet Extended Release 24 Hr 25 mg PO QAM Qty: 30 0RF melatonin 3 mg Tablet 6 mg PO HS folic acid 1 mg Tablet 1 mg PO DAILY omeprazole 20 mg Tablet,Delayed Release (Dr/Ec) 20 mg PO DAILY Dom 7-7-1.5 gram Powder In Packet 1 ea PO BID amiodarone 200 mg Tablet 400 mg PO BIDM 30 Days Qty: 120 0RF bumetanide 0.5 mg tablet 0.5 mg PO DAILY Rx Instructions: one tablet daily, with 1 additional tablet daily prn for weight gain or shortness of breath sennosides 8.6 mg Tablet 8.6 mg PO BID omega 0-bid-fiw-fish oil 900-1,400 mg Capsule,Delayed Release(Dr/Ec) 1 cap PO DAILY Held doxycycline hyclate 100 mg capsule 100 mg PO BID Hold Instructions: Provider's Order - resume after completion of bactrim Discharge Orders: Discharge Order (Routine); Ordered 05/29/24 Ordered By: Belle Carbajal Admission Data Admit Date/Time: 05/26/24 19:03 Attending Provider: Shaheen Vance Admit Provider: Hermes Knowles Primary Care Provider: Danny Soliman Other Providers: Hermes Knowles; [facility]; Haylee Salguero; Esme Huston; Carmen Joy; Gavi Rich; Annia Devine; Carmen Hidalgo Other Interventions: Discharge Summary Assessment (RN) Last Done: 05/29/24 11:07 Hospital Stay Data Consultations 05/26/24 18:15 ED Decision to Admit Stat 05/27/24 09:58 Consult Behavioral Health Liaison Routine Consult Infectious Diseases Routine Pending Results Patient Have Any Pending Studies at Discharge: Yes (blood cultures ) Discharge Instructions Given to Patient (Per Discharging Provider) Mr. Palacio, Karthik were hospitalized after concerns for worsening infection/cellulitis. The culture grew MRSA, thankfully sensitive to Bactrim. This has been sent to your pharmacy, take the first dose tonight. It is VERY important that you are staying hydrated while taking the Bactrim because it can be hard on your kidneys. I have ordered labs (BMP) for you to hav e done next week, results will go to your PCP. You can do this at any [facility] location. Continue with daily wound care - [facility] with the optifoam on top. You should continue to follow with the wound care center. I will place a referral to local infectious disease doctor. However, because we know the MRSA that was growing in your infected joint in the past was sensitive to doxycycline it is okay to resume the doxycycline for line. This should be resumed after you have completed the course of Bactrim Continue to wear your compression stockings. No other changes to your home medications. Continue to work with therapy to get stronger. CONTACT YOUR PRIMARY CARE PROVIDER if you experience any of the following: Shortness of breath or difficulty breathing Fevers or chills Feeling tired with normal activity or experiencing dizziness or fainting Difficulty following your treatment plan, or difficulty taking medications CALL 911 OR GO TO THE EMERGENCY DEPARTMENT if you experience any of the following: Severe abdominal pain or nausea/vomiting Severe chest pain, or chest pain that radiates (moves) to your jaw or arm Sudden, severe shortness of breath or difficulty breathing Thank you for allowing us to participate in your care. Happy Holidays, enjoy this time with your family! Belle Carbajal PA-C Total Time Total Time Spent Total Time Spent (In Minutes): Time spent day of discharge 40 minutes including direct patient care, medication reconciliation, documentation, review of labs and images, and coordination of care. Coding Level of Care Code 85258 INP/OBS DISCH >30 MIN Diagnoses Cellulitis L03.90 Atrial fibrillation I48.91 Pressure injury of right foot, stage 3 L89.893 Laterality: right History of MRSA infection Z86.14 Chronic diastolic heart failure I50.32
[2024-05-29 11:08] VITALS: BP 121/63
== END 2024-05-29 11:51 | disposition home or self-care (01) | DRG 602 ==
LOC: ED 15:44 → 2W 19:03 → SUATTDRO 19:03 → 2W 20:33

== ENCOUNTER 2024-06-10 09:32 | Inpatient (IN) ==
--- NOTE | 2024-06-10 10:58 | Emergency Department Note ---
Impression & Plan Recurrent cellulitis of lower extremity ED Provider Note CHIEF COMPLAINT: Burning sensation in feet HISTORY OF PRESENTING ILLNESS: This 78-year-old male patient presents to the emergency department with his daughter for evaluation of burning in his bilateral feet. The patient was discharged from the hospital on 05/29/2024 with a 7-day course of oral Bactrim for MRSA cellulitis of his feet. The patient's family is concerned that this is not a long enough course of antibiotics. He has also had weakness and has been unsteady for the past couple of days. He denies any falls or traumatic injuries. He rates his discomfort as 7/10. He finished the Bactrim 5 days ago and went back on the Doxycycline as prescribed. The patient states that the wound clinic directed him to the ER due to the culture results and worsening symptoms. No fevers. He has noticed some discharge from the wounds intermittently. The patient's new wound culture is below. Upon review of the patient's inpatient records: The patient was treated with IV daptomycin and cefepime while inpatient. Infectious disease was consulted while he was inpatient. X-rays of the right foot were negative for osteomyelitis. The patient was initially on doxycycline, but the wound culture grew Staph aureus which was sensitive to Bactrim and he was switched to Bactrim. Blood cultures with no growth. 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 The patient is on Xarelto due to his A-fib. The patient has also been seeing the wound clinic for a pressure ulcer of his foot. The patient saw the wound clinic on 06/02/2024. He has venous ulcers of both lower extremities with the left leg and foot wound appearing larger and the right lower leg wound stable. Topical Xylocaine was applied and debridement was performed. The wounds were dressed with Aquacel Ag and bilateral Tubigrip's. The patient also has pressure ulcers of the right feet which appear larger. Xylocaine was applied and debridement was performed and the wounds were dressed with Aquacel Ag. The open wound of the right knee was improved. Xylocaine was applied and debridement was performed and dressed with Aquacel Ag. Per wound management the cellulitis of his left foot with open wounds was improving. A repeat culture was obtained. The patient is awaiting referral to Dr. Martinez of infectious disease locally since he was having difficulty traveling to [place]. Gram Stain Final 06/02/24-2146 Gram Stain Result No WBCs Seen, No Organisms Seen Surface Wound Culture Final 06/05/24-807 Organism 1 Proteus mirabilis ESBL Quantity Moderate Sens Sensitivities to Follow +MixWound Plus Low Counts of Probable Skin Justyna Organism 2 Staph aureus MRSA Quantity Rare Sens Sensitivities to Follow ESBL P cornelio MRSA RX M.I.C. RX M.I.C. --- --------- --- --------- Amikacin S <=16 Amox/Clav S <=8/4 Ampicillin R >16 Amp/Sul I 16/8 Cefazolin R >16 Cefepime R >16 Cefotaxime R >32 Cefoxitin S <=8 Ceftriaxone R >32 Cefuroxime R >16 Ciprofloxacin R >2 Clindamycin R 0.5 Daptomycin S 1 Ertapenem S <=0.5 Erythromycin R >4 Gentamicin R >8 Levofloxacin R 2 Linezolid S 4 Meropenem S <=1 Oxacillin R >2 Rifampin S <=1 Tetracycline R >8 Tobramycin R >8 Trimeth/Sulfa R >2/38 S <=0.5/9.5 Pip/Tazo S <=8 Vancomycin S 1 S = SENSITIVE I = INTERMEDIATE R = RESISTANT REVIEW OF SYSTEMS: See HPI for pertinent positives and pertinent negatives. ALLERGIES: Cat dander MEDICATIONS: See below PAST MEDICAL HISTORY: See below PHYSICAL EXAM: VITALS: Vitals are noted on the nurse's note and reviewed by myself. GENERAL: Non toxic, in no acute distress, non-diaphoretic. SKIN: The patient's bilateral lower extremities are erythematous, edematous, and with venous stasis changes. The patient has multiple wounds that are dressed with Aquacel Ag. No obvious fluctuance or significant induration on exam. Some of the wounds are weeping. EYES: PERRLA. EOMI. Conjunctivae without injection, sclerae without icterus. NOSE: Patent without discharge. MOUTH: Mucous membranes moist. Uvula midline. Airway patent. NECK: Supple without nuchal rigidity. HEART: Regular rate and rhythm without murmurs gallops or rubs. LUNGS: Clear to auscultation bilaterally without wheezes, rales or rhonchi. No retractions or accessory muscle use. ABDOMEN: Positive bowel sounds x 4. Normal tympanic percussion. Soft, nontender to palpation. No masses or hepatosplenomegaly. Carrington sign negative. No CVA tenderness. No guarding, rigidity, or rebound tenderness. No focal RLQ or LLQ tenderness. MUSCULOSKELETAL: The patient is somewhat tender to palpation over his bilateral lower extremities, but the tenderness is more diffuse rather than localized. No obvious point of bony tenderness to palpation. The patient does have pitting edema present with decreased capillary refill. Peripheral pulses are still felt, but faint. No tenderness to palpation of the cervical, thoracic, or lumbar spine. NEURO: Patient was alert and oriented. DIFFERENTIAL DIAGNOSIS: Differential diagnosis includes cellulitis, abscess, MRSA infection, DVT, necrotizing fasciitis, dermatitis, drug eruption, allergic reaction, as well as other pathologies. ED COURSE AND MEDICAL DECISION MAKING: HISTORY FROM INDEPENDENT HISTORIAN: Additional history obtained from the patient's daughter. MEDICATIONS GIVEN: Ertapenem 1000 mg IV. Daptomycin 550 mg IV. INTERPRETATION OF LABS: I interpreted the labs with full lab results as below in the lab section of this note. Pertinent lab results discussed in the MDM section below. EXTERNAL RECORDS REVIEWED: I reviewed the patient's previous admission as well as outpatient wound care note and culture results as summarized above. CHRONIC MEDICAL/SOCIAL CONDITIONS AFFECTING CARE: Chronic and recurrent infections of his lower extremities. CONSULTATIONS: ED pharmacist. On-call hospitalist. MDM SUMMARY: The patient was seen during a time of extreme volume and extreme acuity. Nursing triage protocols were initiated with IV lock, labs, and/or imaging studies conducted by protocol in the triage area. The patient was initially evaluated in a protocol room and then re-evaluated once they were taken back to an exam room. The patient has a history of chronic and recurrent cellulitis of his lower extremities as well as venous stasis changes and pressure ulcers. The patient is on doxycycline lifelong and has seen infectious disease of [place]. He is working on getting in with an infectious disease doctor locally. The patient was just discharged from the hospital on 05/29/2024 and completed a course of Bactrim after receiving daptomycin and cefepime IV. The patient finished the Bactrim 5 days ago and restarted his doxycycline. However, his daughter feels like the symptoms are getting worse. The wound clinic saw the patient on 06/02/2024 and a new wound culture was obtained with the results as above. On exam the patient has erythema, edema, and multiple wounds over his bilateral lower extremities. The patient's daughter and the patient state that it is getting progressively worse despite his recent IV antibiotics during admission and oral antibiotics. The patient has no bony tenderness to palpation or evidence for osteomyelitis on exam. Low suspicion for DVT since he is on Xarelto. Therefore, imaging was initially held. White blood cell count normal at 7.76. Hemoglobin low, but stable at 12.9. Platelet count normal at 198. Coags normal. BUN stable at 39. Glucose 109. CMP otherwise without significant abnormalities. The patient was afebrile, was normotensive, and was not tachycardic without leukocytosis. Lactate and procalcitonin obtained by the inpatient team were normal. I spoke with the ED pharmacist in regards to antibiotic choice based on the patient's previous history, his most recent culture results, and a worsening infection. The ED pharmacist recommended ertapenem along with either daptomycin or vancomycin. Blood cultures were obtained and the patient was given IV ertapenem and daptomycin. I had a meaningful discussion about this patient with Dr. Ellis who agrees with my assessment and the treatment plan. Due to the patient's worsening infection, the patient will require admission for further IV antibiotic treatment. I spoke with the on-call hospitalist who agreed to admit the patient for further evaluation and treatment. Please refer to their dictation for further details. The patient's care was transferred in stable condition. DIAGNOSIS: Recurrent cellulitis of the bilateral lower extremities Past Med/Surg History Problem List (Updated 06/10/24 @ 19:41 by Yris Muller PA-C) Lethargy Chronic diastolic heart failure History of infection of total joint prosthesis of knee Atrial fibrillation History of MRSA infection Recurrent cellulitis of lower extremity (Acute) Cellulitis of left foot (Acute) Polyneuropathy Depression Atrial flutter (Acute) Atrial fibrillation with RVR Open wound of knee (Acute) Pressure ulcer of foot, stage 3 (Acute) Venous ulcers of both lower extremities (Acute) Pain associated with wound Palliative care by specialist Advanced care planning/counseling discussion Back pain VRE bacteremia Ambulatory dysfunction Infection of prosthetic right knee joint JEFFERY (acute kidney injury) (Acute) Weakness (Acute) Fall (Acute) Anemia (Acute) Hypomagnesemia (Acute) Hypotension (Acute) Bilateral cellulitis of lower leg (Acute) Peripheral neuropathy Chronic venous stasis Cellulitis of both feet (Acute) Rheumatoid arthritis Open wound of foot Open wound of right hand (Acute) Chronic wound Lymphangitis of lower extremity Hypomagnesemia (Acute) Open wound of left upper arm (Acute) Open wound of left arm with tendon injury Gram-negative bacteremia Cellulitis of right lower extremity (Acute) Generalized weakness (Acute) Elevated procalcitonin (Acute) Acute kidney injury superimposed on chronic kidney disease (Acute) Skin tear of right upper extremity (Acute) Open wound of left foot (Acute) Open wound of right foot (Acute) Skin tear of right hand without complication (Acute) Venous ulcer of left leg (Acute) Traumatic open wound of right lower leg (Acute) Elevated LFTs MRSA bacteremia Dislocation, hip closed (Acute) Dislocation, hip, posterior Rotator cuff arthropathy of both shoulders Abrasion of right knee (Acute) Pain of right hip Prophylactic antibiotic Left shoulder pain Acquired foot deformity (Chronic) Traumatic wound (Acute) Pressure ulcer of left foot, stage 3 (Acute) Abnormal ankle brachial index (Acute) Right knee pain Non-ST elevation MD (NSTEMI) (Acute) Leukocytosis (Acute) Myoclonus Cervical radiculopathy Neuropathy Weakness On amiodarone therapy Weakness of right hip Constipation Sepsis following procedure Rhabdomyolysis MRSA infection History of CHF (congestive heart failure) Visual disturbance Hyponatremia Hypotension Acute metabolic encephalopathy Abdominal wall abscess (Acute) HFrEF (heart failure with reduced ejection fraction) EF 40% Mar 2022, improved 55-60% August 2022 Lumbar stenosis Osteoarthritis of right knee Anxiety and depression Hypertension Coronary artery disease Atherogenic dyslipidemia Lumbar radiculopathy Lower extremity weakness Degenerative spondylolisthesis Chronic low back pain Scoliosis of lumbar region due to degenerative disease of spine in adult Dislocation of hip, right, closed (Acute) Septic joint of right knee joint COVID-19 (Acute) Incisional hernia Incarcerated intra-abdominal hernia (Acute) Adjustment disorder with mixed anxiety and depressed mood Medical History Open wound of left lower extremity Sepsis secondary to UTI Fever Sepsis due to skin infection Sepsis Fall Infected hardware in right leg Chronic infection of right knee UTI (urinary tract infection) Severe sepsis Venous ulcer of right leg Venous stasis ulcers of both lower extremities Idiopathic polyneuropathy History of immunosuppressive therapy Heart failure with preserved ejection fraction GERD (gastroesophageal reflux disease) Sepsis Septicemia due to Streptococcus pneumoniae Respiratory failure with hypoxia Hypomagnesemia Pneumonia Benign essential hypertension Lumbar stenosis Hx of staphylococcal infection 03/2022, w/"bacterial infection" at the same, in the rt. knee, occurrred during atrial fibrillation episode. "when he woke up, he couldn't walk." Atrial fibrillation episode occurred in 03/2022, taken to [facility] in [place], admitted to ICU for 1-2 weeks (was not intubated, but wasn't "awake either"), then to cardiac unit, then to rehab at [facility]; f/u dr. guerra in [place]>will be starting to see a post acute care nurse at [facility] 2nd week of 08/2022 Myocardial Infarction "a silent one, 2019" Sleep apnea no device Surgical History Status post revision of total replacement of right knee Hx of Achilles tendon repair rt. Hx of knee surgery rt. patellar tendon repair Hx of rotator cuff surgery bilateral Hx of total knee replacement lt. Hx of total hip arthroplasty rt. History of colostomy reversal History of bowel resection for diverticulitis; w/colostomy placement for 3-4 months Hx of hernia repair near former colostomy site History of esophagogastroduodenoscopy (EGD) Hx of colonoscopy Last Colonoscopy 08/14/22, repeat 3 years in 2025 Hx of bilateral cataract extraction History of heart artery stent ~3 years ago, x2 stents, done in [place]; f/u dr guerra, [place]>will be seeing new cardio at [facility] 2nd week of August 2022. History of cardiac cath ~3 years ago, SOB and "felt like throat was constricting", had "silent heart attack", x2 stents, done in [place] Family History Grandmother (Maternal) Diabetes Daughter Diabetes Father Suicide Hypertension Denies family history of Ovarian cancer Prostate cancer Myocardial infarction Breast cancer Lung cancer Colorectal cancer Stroke Social History Smoking Status: Never smoker Second Hand Exposure: No; Do You Dip or Chew Tobacco: No; Hx Alcohol Use: Yes Alcohol type: wine Alcohol Intake Frequency: 4 or More x per/Week Hx Substance Use: No Preferred Language: Cuban Communication Ability: Effective Visual Impairment: Limited Hearing Ability: Normal Sdv Pilot/Navigator/Dds Operator Required: No Beliefs That Will Affect Care: None marital status: Single Current Living Situation: Other Current Living Situation Comment: resides at independent living facility ([facility] current occupational status: retired How many Children do You have: 2 Feels Safe at Home: Yes Childhood Exposure to Second-Hand Smoke: Yes Diet: regular caffeine: Yes Dental Care, Regularly: Yes Physical Activity Frequency: Does not Exercise Seatbelt Use: always Sunscreen Use: Yes Assistive Devices: Walker and Wheelchair Allergies Allergies Allergy/AdvReac Type Severity Reaction Status Date / Time cat dander Allergy Severe CAT Verified 06/02/24 09:02 HAIR---Swelling of Lip/Tongue/Throat Home Meds Home Medications Medication Instructions Recorded Confirmed aspirin 81 mg tablet,delayed 81 mg PO QAM 08/07/22 06/10/24 release (Adult Low Dose Aspirin) pzeouybu-afiuxpy-hvrz-lutein tablet 1 tab PO QAM 08/07/22 06/10/24 thiamine HCl (vitamin B1) 100 mg 100 mg PO QAM 02/05/23 06/10/24 tablet rivaroxaban 20 mg tablet (Xarelto) 20 mg PO DAILY 11/19/23 06/10/24 sennosides 8.6 mg tablet 8.6 mg PO BID 12/15/23 06/10/24 cholecalciferol (vitamin D3) 10 20 mcg PO DAILY 01/21/24 06/10/24 mcg (400 unit) tablet mirtazapine 30 mg tablet 30 mg PO HS 01/21/24 06/10/24 nitroglycerin 0.4 mg sublingual 0.4 mg sublingual DIRECTED PRN 01/21/24 06/10/24 tablet chest pin pravastatin 40 mg tablet 40 mg PO HS 01/21/24 06/10/24 vitamin E 268 mg (400 unit) capsule 268 mg PO DAILY ##0 01/21/24 06/10/24 acetaminophen 325 mg tablet 975 mg PO Q8H PRN mild pain,fever, 01/26/24 06/10/24 or headache omega 3-mww-ujs-fish oil 900 1 cap PO DAILY 02/01/24 06/10/24 mg-1,400 mg capsule,delayed release doxycycline hyclate 100 mg capsule 100 mg PO BID 03/29/24 06/10/24 latanoprost 0.005 % eye drops 1 drp OPB QPM 03/29/24 06/10/24 nystatin 100,000 unit/gram topical 1 applic topical DAILY 03/29/24 06/10/24 powder vitamin B comp and C no.3 15 mg-10 1 cap PO DAILY 03/29/24 06/10/24 mg-50 mg-5 mg-300 mg capsule (B Complex Plus Vitamin C) arginine 7 gram-glutamine 7 1 ea PO BID 05/18/24 06/10/24 gram-calcium HMB 1.5 gram oral powder pack (Dom) folic acid 1 mg tablet 1 mg PO DAILY 05/18/24 06/10/24 melatonin 3 mg tablet 6 mg PO HS 05/18/24 06/10/24 omeprazole 20 mg tablet,delayed 20 mg PO DAILY 05/18/24 06/10/24 release bumetanide 0.5 mg tablet 0.5 mg PO DAILY 05/27/24 06/10/24 Previous Rx's Medication Instructions Recorded cyanocobalamin (vitamin B-12) 500 1,000 mcg (2 x 500 mcg) PO QAM #30 01/18/23 mcg tablet tabs duloxetine 60 mg capsule,delayed 60 mg PO QAM #90 caps 10/29/23 release diphenhydramine HCl 25 mg capsule 25 mg PO Q6H PRN itching #10 caps 04/07/24 (Benadryl) metoprolol succinate 25 mg 25 mg PO QAM #30 tabs 04/07/24 tablet,extended release 24 hr empagliflozin 10 mg tablet 10 mg PO DAILY #90 tabs 05/11/24 (Jardiance) ferrous sulfate 325 mg (65 mg 325 mg PO DAILY #90 tabs 05/11/24 iron) tablet sacubitril 24 mg-valsartan 26 mg 1 tab PO BID #180 tabs 05/11/24 tablet (Entresto) tamsulosin 0.4 mg capsule 0.4 mg PO DAILY #90 caps 05/11/24 gabapentin 600 mg tablet 600 mg PO TID neuropathy from 05/12/24 severe PVD wounds 1 month #90 tabs oxycodone 5 mg tablet See Rx Instructions PO Q6H PRN 05/12/24 pain 1 month #100 tabs amiodarone 200 mg tablet 400 mg (2 x 200 mg) PO BIDM 30 05/20/24 days #120 tabs Results & Data (ED) Vital Signs Vital Signs - 24 hr 06/10/24 10:04 06/10/24 13:21 Temperature 36.7 C Temperature Source Temporal Artery Scan Pulse Rate 67 Pulse Rate [Apical] 64 Respiratory Rate 18 18 Blood Pressure 129/74 Blood Pressure [Right Arm] 138/80 Blood Pressure Mean 92 Blood Pressure Mean [Right Arm] 99 Pulse Oximetry 98 100 Oxygen Delivery Method Room Air Room Air Sepsis New/Unexplained Change in Mental Status No Sepsis Action Taken by Nursing No Action Required Laboratory Data 06/10/24 11:04 06/10/24 11:04 Lab Results 06/10/24 Range/Units 11:04 WBC 7.76 (4.8-10.8) K/ul RBC 4.14 L (4.70-6.10) M/uL Hgb 12.9 L (14.0-18.0) g/dl Hct 40.2 L (42.0-52.0) % MCV 97.1 (80.0-100.0) fL MCH 31.2 (25.0-34.0) pg MCHC 32.1 (32.0-36.0) g/dL RDW Std Deviation 67.5 H (36.4-46.3) fL RDW Coeff of Sammie 19.2 H (11.5-14.5) % Plt Count 198 (130-400) K/uL MPV 9.3 L (9.4-12.4) fL Immature Gran % (Auto) 0.9 % Neut % (Auto) 73.2 % Lymph % (Auto) 15.2 % [place] % (Auto) 9.1 % Eos % (Auto) 1.2 % Baso % (Auto) 0.4 % Neut # (Auto) 5.68 (1.40-6.50) K/uL Lymph # (Auto) 1.18 L (1.20-3.40) K/uL [place] # (Auto) 0.71 H (0.11-0.59) K/uL Eos # (Auto) 0.09 (0.00-0.50) K/uL Baso # (Auto) 0.03 (0.00-0.20) K/uL Immature Gran # (Auto) 0.07 (0.01-0.20) K/uL PT Cancelled INR Cancelled APTT Cancelled PTT Ratio Cancelled Sodium 139 (136-145) mmol/L Potassium 4.9 (3.5-5.1) mmol/L Chloride 105 (98-107) mmol/L Carbon Dioxide 29 (21-32) mmol/L Anion Gap 5 (3-11) BUN 39 H (6-23) mg/dl Creatinine 1.32 (0.6-1.4) mg/dl Est Cr Clr Drug Dosing Not Reportable eGFR 54.53 BUN/Creatinine Ratio 29.5 H (10-20) Glucose 109 H (70-99(Fasting)) mg/dl Calcium 9.0 (8.6-10.3) mg/dl Total Bilirubin 0.4 (0.2-1.0) mg/dl AST 30 (13-39) U/L ALT 39 (7-52) U/L Alkaline Phosphatase 63 (34-104) U/L C-Reactive Protein < 0.50 (0-0.5) mg/dl Total Protein 6.3 (6.0-8.3) gm/dl Albumin 3.8 (3.4-5.0) gm/dl Globulin 2.5 (2.5-4.0) gm/dl Albumin/Globulin Ratio 1.5 (0.9-2) Administered Medications Amiodarone HCl (Amiodarone 200 Mg Tab) 400 mg PO BIDM [facility] Stop: 07/10/24 17:29 Last Admin: 06/10/24 18:16 Dose: 400 mg Documented By: SCOTT Discontinued Medications Ertapenem (Invanz 1000mg) 1,000 mg in 10 mls @ 2 mls/min IV NOW STA Stop: 06/10/24 11:33 Last Admin: 06/10/24 12:02 Dose: 2 mls/min Documented By: SHANTELLE Daptomycin 550 mg/ Syringe 11 mls @ 5.5 mls/min IV NOW STA; Protocol Stop: 06/10/24 12:27 Last Admin: 06/10/24 13:18 Dose: 5.5 mls/min Documented By: TAN Ioversol (Optiray 320 125ml) 119 ml IV ONCE ONE Stop: 06/10/24 15:48 Last Admin: 06/10/24 15:50 Dose: 119 ml Documented By: DENISE Discharge Plan Visit Data Chief Complaint: Foot Injury/Pain Stated Complaint: BURNING SENSATION IN FEET/SHARP PAIN, ANTIBIOTICS ED Provider: Rakesh Ellis ED Midlevel Provider: Yris Muller Discharge Problem: Recurrent cellulitis of lower extremity Patient Disposition: Admitted As Inpatient Condition: Good Discharge Instructions Interventions: ED Discharge Assessment Last Done: 06/10/24 17:09
[2024-06-10 11:30] LABS: Basophils # (auto) 0.03 K/uL (0.00-0.20); Basophils % (auto) 0.4 %; Eosinophils # (auto) 0.09 K/uL (0.00-0.50); Eosinophils % (auto) 1.2 %; Hematocrit (blood only) 40.2 % (42.0-52.0); Hemoglobin 12.9 g/dl (14.0-18.0); Immature Granulocytes # (auto) 0.07 K/uL (0.01-0.20); Immature Granulocytes % (auto) 0.9 %; Lymphocytes # (auto) 1.18 K/uL (1.20-3.40); Lymphocytes % (auto) 15.2 %; Mean Corpuscular Hemoglobin 31.2 pg (25.0-34.0); Mean Corpuscular Hgb Conc 32.1 g/dL (32.0-36.0); Mean Corpuscular Volume 97.1 fL (80.0-100.0); Mean Platelet Volume 9.3 fL (9.4-12.4); Monocytes # (auto) 0.71 K/uL (0.11-0.59); Monocytes % (auto) 9.1 %; Neutrophils # (auto) 5.68 K/uL (1.40-6.50); Neutrophils % (auto) 73.2 %; Platelet Count 198 K/uL (130-400); RDW Coefficient of Variation 19.2 % (11.5-14.5); RDW Standard Deviation 67.5 fL (36.4-46.3); Red Blood Count 4.14 M/uL (4.70-6.10); White Blood Count 7.76 K/ul (4.8-10.8)
--- NOTE | 2024-06-10 11:39 | Emergency Department Note ---
ED Visit Note I was consulted by the Advanced Practice Provider. I personally made or approved the management plan for the patient. I performed a substantive portion of the visit. This includes the aspects of: MDM. .
[2024-06-10 11:45] LABS: Alanine Aminotransferase 39 U/L (7-52); Albumin Globulin Ratio 1.5 (0.9-2); Albumin Level 3.8 gm/dl (3.4-5.0); Alkaline Phosphatase 63 U/L (34-104); Anion Gap 5 (3-11); Aspartate Aminotransferase 30 U/L (13-39); BUN Creatinine Ratio 29.5 (10-20); Bilirubin,Total 0.4 mg/dl (0.2-1.0); Blood Urea Nitrogen 39 mg/dl (6-23); Carbon Dioxide 29 mmol/L (21-32); Chloride 105 mmol/L (98-107); Globulin 2.5 gm/dl (2.5-4.0); Glucose 109 mg/dl (70-99(Fasting)); Potassium 4.9 mmol/L (3.5-5.1); Sodium 139 mmol/L (136-145); Total Protein 6.3 gm/dl (6.0-8.3)
[2024-06-10] MEDS: ERTAPENEM 1000MG 1,000 MG/10 ML SYR IV STA (12:02)
[2024-06-10] MEDS: DAPTOmycin 550 MG in SYRINGE 0 ML IV STA (13:18)
--- NOTE | 2024-06-10 13:33 | History & Physical Report ---
Date of Service June 10, 2024 Assessment & Plan (1) Recurrent cellulitis of lower extremity: Plan: Patient presented on 06/10 at the behest of the wound care clinic for acute onset of lower extremity pain/swelling over 24 hours No leukocytosis; afebrile; however patient is in significant pain and daughter reports increased sleepiness/somnolence, which tends to happen to him prior to episodes of bacteremia Recent [facility] admission 05/26 - 05/29 for cellulitis and positive MRSA culture Contact isolation precautions for now CRP ordered, pending Blood cultures drawn IV abx based on wound culture from 06/02/24: Ertapenem 1000 mg IV q24h Daptomycin 325 mg IV q24h; hold statin Infectious disease consult appreciated Per review of prior admission, patient was continued on doxycycline as outpatient suppression for prior joint infection was sensitive to doxycycline Unclear on admission if this is a new infection or residual from prior; h/o recurrent MRSA infections Schedule acetaminophen and gabapentin as needed for pain control with oxycodone as needed for breakthrough pain Arterial vascular duplex on 02/22/2024 revealed normal ABIs However, given significant ulceration, CTA of the lower extremities ordered (2) Lethargy: Plan: Notable lethargy at time of admission Patient is A&O x 3 and does arouse to shaking/sternal rub, but has difficulty keeping his eyes open/responding Procalcitonin, lactate, ammonia level ordered, pending (3) Atrial fibrillation: Plan: Rate controlled Continue Xarelto and amiodarone (4) Pressure ulcer of foot, stage 3: Plan: Daily wound care Wound care nurse consult appreciated (5) Chronic diastolic heart failure: Plan: Continue metoprolol, Entresto, Bumex, and Jardiance (6) History of infection of total joint prosthesis of knee: Plan: Per last ID note, okay to continue doxycycline upon discharge for this specific joint infection (7) History of MRSA infection: Plan Disposition: Admit to [facility] telemetry Full code Heart healthy diet VTE PPx: Continue Xarelto History of Present Illness Chief Complaint: Foot pain/wounds Primary Care Provider: Danny Soliman DO [place] is a pleasant 78yo male with PMHx of MRSA infection (on doxycycline ppx), prosthetic right knee infection, CAD, CHF, sepsis, rhabdomyolysis, NSTEMI, atrial fibrillation (on Xarelto), chronic venous stasis, peripheral neuropathy, and cellulitis. Patient presents with daughter (Diana) at bedside who provides most the history. Daughter reports that he has been somnolent/lethargic and sleeping more over the past 24 hours, which commonly occurs prior to episodes of sepsis. He also has had an acute worsening of foot pain, swelling, and erythema. Daughter reports he has been struggling with transfers more than usual, and so she was concerned that worsening infection could be brewing. Patient was recently discharged from [facility] for a cellulitis on 05/29; reports he took Bactrim for 7 days, then switch back to doxycycline for his chronic suppressive therapy. He takes Tylenol scheduled TID for his lower extremity pain, as well as gabapentin. He has not been taking oxycodone as he tries to avoid it. He rates his pain 7/10 at present, localized in the lower extremities/feet bilaterally. He characterizes it as a burning pain with an occasional sharp shooting pain up his legs. Daughter called the wound clinic today, and based on reported symptoms and acute worsening, they recommended he come to the ED. He does have a history of several MRSA infections, and MRSA bacteremia. This has been an ongoing issue recurrent hospitalizations, and taking a significant toll on the patient. While he does endorse depression, he denies any thoughts of self-harm. Patient denies smoking, tobacco use. Patient's vitals are stable at time of admission. ED course: Ertapenem 1000 mg IV Daptomycin 550 mg IV ROS: Patient endorses burning/pain/erythema/swelling in the feet and lower extremities bilaterally, and generalized fatigue Patient denies fever, chills, night sweats, chest pain, chest palpitations, pleuritic CP, SOB, cough, abdominal pain, changes in urinary/bowel habits, or N/V/D. Allergies Allergy/AdvReac Type Severity Reaction Status Date / Time cat dander Allergy Severe CAT Verified 06/02/24 09:02 HAIR---Swelling of Lip/Tongue/Throat Home Medications Medication Instructions Recorded Confirmed Type aspirin 81 mg tablet,delayed 81 mg PO QAM 08/07/22 06/02/24 History release (Adult Low Dose Aspirin) oimacbsb-eycegdc-qloe-lutein tablet 1 tab PO QAM 08/07/22 06/02/24 History cyanocobalamin (vitamin B-12) 500 1,000 mcg (2 x 500 mcg) PO QAM #30 01/18/23 06/02/24 Rx mcg tablet tabs thiamine HCl (vitamin B1) 100 mg 100 mg PO QAM 02/05/23 06/02/24 History tablet duloxetine 60 mg capsule,delayed 60 mg PO QAM #90 caps 10/29/23 06/02/24 Rx release rivaroxaban 20 mg tablet (Xarelto) 20 mg PO DAILY 11/19/23 06/02/24 History sennosides 8.6 mg tablet 8.6 mg PO BID 12/15/23 06/02/24 History cholecalciferol (vitamin D3) 10 20 mcg PO DAILY 01/21/24 06/02/24 History mcg (400 unit) tablet mirtazapine 30 mg tablet 30 mg PO HS 01/21/24 06/02/24 History nitroglycerin 0.4 mg sublingual 0.4 mg sublingual DIRECTED PRN 01/21/24 06/02/24 History tablet chest pin pravastatin 40 mg tablet 40 mg PO HS 01/21/24 06/02/24 History vitamin E 268 mg (400 unit) capsule 268 mg PO DAILY ##0 01/21/24 06/02/24 History acetaminophen 325 mg tablet 975 mg PO Q8H PRN mild pain,fever, 01/26/24 06/02/24 History or headache omega 6-kcj-sbg-fish oil 900 1 cap PO DAILY 02/01/24 06/02/24 History mg-1,400 mg capsule,delayed release doxycycline hyclate 100 mg capsule 100 mg PO BID 03/29/24 06/02/24 History latanoprost 0.005 % eye drops 1 drp OPB QPM 03/29/24 06/02/24 History nystatin 100,000 unit/gram topical 1 applic topical DAILY 03/29/24 06/02/24 History powder vitamin B comp and C no.3 15 mg-10 1 cap PO DAILY 03/29/24 06/02/24 History mg-50 mg-5 mg-300 mg capsule (B Complex Plus Vitamin C) diphenhydramine HCl 25 mg capsule 25 mg PO Q6H PRN itching #10 caps 04/07/24 06/02/24 Rx (Benadryl) metoprolol succinate 25 mg 25 mg PO QAM #30 tabs 04/07/24 06/02/24 Rx tablet,extended release 24 hr empagliflozin 10 mg tablet 10 mg PO DAILY #90 tabs 05/11/24 06/02/24 Rx (Jardiance) ferrous sulfate 325 mg (65 mg 325 mg PO DAILY #90 tabs 05/11/24 06/02/24 Rx iron) tablet sacubitril 24 mg-valsartan 26 mg 1 tab PO BID #180 tabs 05/11/24 06/02/24 Rx tablet (Entresto) tamsulosin 0.4 mg capsule 0.4 mg PO DAILY #90 caps 05/11/24 06/02/24 Rx gabapentin 600 mg tablet 600 mg PO TID neuropathy from 05/12/24 06/02/24 Rx severe PVD wounds 1 month #90 tabs oxycodone 5 mg tablet See Rx Instructions PO Q6H PRN 05/12/24 06/02/24 Rx pain 1 month #100 tabs arginine 7 gram-glutamine 7 1 ea PO BID 05/18/24 06/02/24 History gram-calcium HMB 1.5 gram oral powder pack (Dom) folic acid 1 mg tablet 1 mg PO DAILY 05/18/24 06/02/24 History melatonin 3 mg tablet 6 mg PO HS 05/18/24 06/02/24 History omeprazole 20 mg tablet,delayed 20 mg PO DAILY 05/18/24 06/02/24 History release amiodarone 200 mg tablet 400 mg (2 x 200 mg) PO BIDM 30 05/20/24 06/02/24 Rx days #120 tabs bumetanide 0.5 mg tablet 0.5 mg PO DAILY 05/27/24 06/02/24 History Past Med/Surg History Problem List (Updated 06/10/24 @ 14:50 by Kendall Chowdhury PA-C) Lethargy Chronic diastolic heart failure History of infection of total joint prosthesis of knee Atrial fibrillation History of MRSA infection Recurrent cellulitis of lower extremity Cellulitis of left foot (Acute) Polyneuropathy Depression Atrial flutter (Acute) Atrial fibrillation with RVR Open wound of knee (Acute) Pressure ulcer of foot, stage 3 (Acute) Venous ulcers of both lower extremities (Acute) Pain associated with wound Palliative care by specialist Advanced care planning/counseling discussion Back pain VRE bacteremia Ambulatory dysfunction Infection of prosthetic right knee joint JEFFERY (acute kidney injury) (Acute) Weakness (Acute) Fall (Acute) Anemia (Acute) Hypomagnesemia (Acute) Hypotension (Acute) Bilateral cellulitis of lower leg (Acute) Peripheral neuropathy Chronic venous stasis Cellulitis of both feet (Acute) Rheumatoid arthritis Open wound of foot Open wound of right hand (Acute) Chronic wound Lymphangitis of lower extremity Hypomagnesemia (Acute) Open wound of left upper arm (Acute) Open wound of left arm with tendon injury Gram-negative bacteremia Cellulitis of right lower extremity (Acute) Generalized weakness (Acute) Elevated procalcitonin (Acute) Acute kidney injury superimposed on chronic kidney disease (Acute) Skin tear of right upper extremity (Acute) Open wound of left foot (Acute) Open wound of right foot (Acute) Skin tear of right hand without complication (Acute) Venous ulcer of left leg (Acute) Traumatic open wound of right lower leg (Acute) Elevated LFTs MRSA bacteremia Dislocation, hip closed (Acute) Dislocation, hip, posterior Rotator cuff arthropathy of both shoulders Abrasion of right knee (Acute) Pain of right hip Prophylactic antibiotic Left shoulder pain Acquired foot deformity (Chronic) Traumatic wound (Acute) Pressure ulcer of left foot, stage 3 (Acute) Abnormal ankle brachial index (Acute) Right knee pain Non-ST elevation NV (NSTEMI) (Acute) Leukocytosis (Acute) Myoclonus Cervical radiculopathy Neuropathy Weakness On amiodarone therapy Weakness of right hip Constipation Sepsis following procedure Rhabdomyolysis MRSA infection History of CHF (congestive heart failure) Visual disturbance Hyponatremia Hypotension Acute metabolic encephalopathy Abdominal wall abscess (Acute) HFrEF (heart failure with reduced ejection fraction) EF 40% Mar 2022, improved 55-60% August 2022 Lumbar stenosis Osteoarthritis of right knee Anxiety and depression Hypertension Coronary artery disease Atherogenic dyslipidemia Lumbar radiculopathy Lower extremity weakness Degenerative spondylolisthesis Chronic low back pain Scoliosis of lumbar region due to degenerative disease of spine in adult Dislocation of hip, right, closed (Acute) Septic joint of right knee joint COVID-19 (Acute) Incisional hernia Incarcerated intra-abdominal hernia (Acute) Adjustment disorder with mixed anxiety and depressed mood Medical History Open wound of left lower extremity Sepsis secondary to UTI Fever Sepsis due to skin infection Sepsis Fall Infected hardware in right leg Chronic infection of right knee UTI (urinary tract infection) Severe sepsis Venous ulcer of right leg Venous stasis ulcers of both lower extremities Idiopathic polyneuropathy History of immunosuppressive therapy Heart failure with preserved ejection fraction GERD (gastroesophageal reflux disease) Sepsis Septicemia due to Streptococcus pneumoniae Respiratory failure with hypoxia Hypomagnesemia Pneumonia Benign essential hypertension Lumbar stenosis Hx of staphylococcal infection 03/2022, w/"bacterial infection" at the same, in the rt. knee, occurrred during atrial fibrillation episode. "when he woke up, he couldn't walk." Atrial fibrillation episode occurred in 03/2022, taken to [facility], admitted to ICU for 1-2 weeks (was not intubated, but wasn't "awake either"), then to cardiac unit, then to rehab at [facility]; f/u dr. guerra in [place]>will be starting to see a tender labor at [facility] 2nd week of 08/2022 Myocardial Infarction "a silent one, 2019" Sleep apnea no device Surgical History Status post revision of total replacement of right knee Hx of Achilles tendon repair rt. Hx of knee surgery rt. patellar tendon repair Hx of rotator cuff surgery bilateral Hx of total knee replacement lt. Hx of total hip arthroplasty rt. History of colostomy reversal History of bowel resection for diverticulitis; w/colostomy placement for 3-4 months Hx of hernia repair near former colostomy site History of esophagogastroduodenoscopy (EGD) Hx of colonoscopy Last Colonoscopy 08/14/22, repeat 3 years in 2025 Hx of bilateral cataract extraction History of heart artery stent ~3 years ago, x2 stents, done in [place]; f/u dr guerra, [place]>will be seeing new cardio at [place] 2nd week of August 2022. History of cardiac cath ~3 years ago, SOB and "felt like throat was constricting", had "silent heart attack", x2 stents, done in [place] Family History Grandmother (Maternal) Diabetes Daughter Diabetes Father Suicide Hypertension Denies family history of Ovarian cancer Prostate cancer Myocardial infarction Breast cancer Lung cancer Colorectal cancer Stroke Social History Smoking Status: Never smoker Second Hand Exposure: No; Do You Dip or Chew Tobacco: No; Hx Alcohol Use: Yes Alcohol type: wine Alcohol Intake Frequency: 4 or More x per/Week Hx Substance Use: No Preferred Language: Portuguese Communication Ability: Effective Visual Impairment: Limited Hearing Ability: Normal [employer] Advisor Required: No Beliefs That Will Affect Care: None marital status: Single Current Living Situation: Other Current Living Situation Comment: resides at independent living facility ([facility]) current occupational status: retired How many Children do You have: 2 Feels Safe at Home: Yes Childhood Exposure to Second-Hand Smoke: Yes Diet: regular caffeine: Yes Dental Care, Regularly: Yes Physical Activity Frequency: Does not Exercise Seatbelt Use: always Sunscreen Use: Yes Assistive Devices: Walker and Wheelchair Review of Systems 2 Review of Systems: See HPI above Physical Exam 2 Physical Exam: General: Mild physical distress secondary to foot pain; initially lethargic/somnolent, but responsive to sternal rub; daughter at bedside; non- toxic appearing; well-nourished; cooperative; SpO2 100% on RA HEENT: normocephalic, atraumatic; no scleral icterus; PERRLA; vision and hearing grossly intact Neck: supple; no lymphadenopathy; trachea midline Skin: warm, dry without signs of tenting; no cyanosis; no rashes, bruising, lesions, or erythema noted CV: chest wall NTP; RRR; S1/S2 normal; no murmurs/rubs/gallops; pulses intact and symmetric at radial, DP, and PT Lungs: no acute respiratory distress; symmetrical chest wall expansion; clear breath sounds across all lung hathaway w/o adventitious sounds; no wheezing ABD: Soft, NTP; BS present; no rebound/guarding; no distention MSK: no tics or fasciculations; no edema noted in the LEs b/l, nonerythematous LEs: Multiple ulcerations and superficial wounds in various stages of healing (see photos below); multiple ulcers demonstrate purulent drainage; lesion on the anterior aspect of the right antonio (photo 3) is particularly malodorous; both legs are erythematous and swollen with +2 pitting edema extending up to the knees; both legs are tender to palpation Neuro: A&Ox3; normal mood and affect; fluent speech; no focal deficits Results & Data Results & Data Vital Signs (Past 12 Hours) Vital Signs Temp Pulse Pulse Resp BP BP Pulse Ox 06/10/24 13:21 64 18 138/80 100 06/10/24 10:04 36.7 C 67 18 129/74 98 O2 Del Method 06/10/24 13:21 Room Air 06/10/24 10:04 Room Air Laboratory Results Abnormal lab results 06/10/24 Range/Units 11:04 RBC 4.14 L (4.70-6.10) M/uL Hgb 12.9 L (14.0-18.0) g/dl Hct 40.2 L (42.0-52.0) % RDW Std Deviation 67.5 H (36.4-46.3) fL RDW Coeff of Sammie 19.2 H (11.5-14.5) % MPV 9.3 L (9.4-12.4) fL Lymph # (Auto) 1.18 L (1.20-3.40) K/uL Warren # (Auto) 0.71 H (0.11-0.59) K/uL BUN 39 H (6-23) mg/dl BUN/Creatinine Ratio 29.5 H (10-20) Glucose 109 H (70-99(Fasting)) mg/dl ECG Additional Comments: ECG revealed NSR at 74 bpm; QTc 472 Code Status & VTE Plan Code Status Full code VTE Prophylaxis Plan VTE Prophylaxis will be ordered: Yes Supervising Physician Co-Signing Physician Notes I have personally seen, evaluated and examined the patient. I have also personally discussed the management of the patient with the resident physician/HEBERT and I agree with the exam findings documented in the history and physical examination and the documented assessment and plan unless otherwise stated below. Brief Exam: In general pleasant 78-year-old gentleman. He is accompanied by his daughter at the time of my exam. He interacts appropriately. He is tired. But he wakes up and is completely alert and oriented x 3. 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 Review of the chart the patient had arterial duplexes recently which were unremarkable. However given his severe lower extremity wounds and changes of peripheral vascular disease work on the CTAs with runoff of the lower extremities. HEENT: Normocephalic atraumatic. Heart: Regular rate and rhythm I do not appreciate murmur active. Lungs: Diminished but clear. Abdomen: Protuberant soft and nontender. Remaining abdominal exam somewhat equivocal given his body habitus. Extremities: As described above. Please refer to pictures and findings above. Changes of venous stasis and peripheral arterial disease with multiple acute on chronic wounds. Assessment/plan: As described above. Broad-spectrum IV antibiotic therapy. Daptomycin and ertapenem. Discussed with pharmacy culture and sensitivity data reviewed from last wound cultures. CTA of the lower extremities to rule out significant peripheral arterial disease. Please refer to orders for further planning. PG Care Time/CCT Total # of Minutes Spent Total Time Spent with Patient: Total time spent is greater than 50% in coordination of care (as documented) at patient's floor/unit and/or counseling patient: Coding [place] [address] INT INP/OBS CARE 3/75MIN Patient Type Established Medical Decision Making High Complexity Diagnoses Recurrent cellulitis of lower extremity L03.119 Lethargy R53.83 Atrial fibrillation I48.91 Pressure injury of right foot, stage 3 L89.893 Laterality: right Chronic diastolic heart failure I50.32 History of infection of total joint prosthesis of knee Z87.39 History of MRSA infection Z86.14 (4) Pressure ulcer of foot, stage 3 Laterality: right Qualified Code(s): L89.893 - Pressure ulcer of other site, stage 3
[2024-06-10 15:20] LABS: INR 1.1 (0.9-1.1); Partial Thromboplastin Ratio 1.1; Partial Thromboplastin Time 29 Seconds (21-31); Prothrombin Time 11.7 Seconds (9.0-12.0)
[2024-06-10] MEDS: OPTIRAY 320 125ml IV ONE (15:50)
--- NOTE | 2024-06-10 16:55 | CT Scan Report ---
CT ANGIOGRAM of the ABDOMEN/PELVIS AORTOGRAM with BILATERAL LOWER EXTREMITY RUNOFF: Indication: Lower extremity pain IV CONTRAST: 100 mL of OMNIPAQUE 300 COMPARISON: None FINDINGS: Limited images through the lower thorax: Cardiomegaly, coronary calcifications. Multiple calcified mediastinal and hilar lymph nodes. Calcified granulomas of the lungs. The visualized upper abdominal visceral structures: There is a cystic lesion in the mid body of the pancreas measuring 2.0 cm. ScatteredHepatic hypodensities Kidneys: There appears to be symmetric nephrograms of the kidneys. Gallbladder and biliary tree, pancreas and adrenal glands: Unremarkable. Scattered lymph nodes. Bowel loops: Prior sigmoid colonic resection with primary anastomosis. Appendectomy changes. ABDOMINAL WALL midline incision scar. Small supraumbilical anterior ventral hernia containing fat. Small hernia defect in the left lower anterior abdominal wall, presumed from prior colostomy creation. Skeletal: No acute process identified.Grade 1-2 anterolisthesis of L5 on S1 with associate chronic pars defects. ANGIOGRAM FINDINGS: CTA RUNOFF of BILATERAL Lower Extremities: The MIP images, sagittal and coronal reformats were created. The 3D MIP image reformations were then rotated around the multiple planes. Additional MIP slab reformats were also performed. Source axial images are also available for interpretation. ABOMEN CTA: No hemodynamically significant stenosis. BILATERAL CTA RUNOFF: RIGHT: Extensive atherosclerosis of the infrapopliteal arteries with no significant contrast material noted in the anterior tibial, posterior tibial as well as peroneal arteries below the mid tibia-fibula level. Patency is also very limited due to extensive calcified atherosclerotic plaques. Occlusive changes may be present. LEFT: Extensive atherosclerosis of the infrapopliteal arteries with no significant contrast material noted in the anterior tibial, posterior tibial as well as peroneal arteries below the mid tibia-fibula level. Patency is also very limited due to extensive calcified atherosclerotic plaques. Occlusive changes may be present. Bilaterally there are extensive soft tissue edematous changes of the lower extremities with scattered ulcerative defects. Status post bilateral knee arthroplasties and right hip arthroplasty. IMPRESSION: RIGHT LOWER EXTREMITY: Extensive atherosclerosis of the infrapopliteal arteries with no significant contrast material noted in the anterior tibial, posterior tibial as well as peroneal arteries below the mid tibia-fibula level. Patency assessment is also very limited due to extensive calcified atherosclerotic plaques. Occlusive changes may be present. LEFT LOWER EXTREMITY: Extensive atherosclerosis of the infrapopliteal arteries with no significant contrast material noted in the anterior tibial, posterior tibial as well as peroneal arteries below the mid tibia-fibula level. Patency assessment is also very limited due to extensive calcified atherosclerotic plaques. Occlusive changes may be present. If indicated, arterial duplex ultrasound examination of the lower extremities may be obtained. Bilaterally there are extensive soft tissue edematous changes of the lower extremities with scattered ulcerative defects. Status post bilateral knee arthroplasties and right hip arthroplasty. Moderate right knee joint fluid Irregularities in the heads of the fifth metatarsals bilaterally could represent osteomyelitis or posttraumatic changes. OTHER: There is a cystic lesion in the mid body of the pancreas measuring 2.0 cm. This may represent an IPMN. Evidence of prior granulomatous process exposure with calcified pulmonary granulomas, calcified splenic granulomas and calcified lymph nodes. Cardiomegaly with extensive coronary calcifications. Electronically signed by Gee Law 06-10-2024 4:55 PM
[2024-06-10] MEDS ORDERED: ONDANSETRON INJ 2 MG/ML 2 ML VIAL IV PRN (17:08)
[2024-06-10] MEDS: AMIODARONE 200 MG TAB PO SCH (18:16)
[2024-06-10] MEDS: GABAPENTIN 600 MG TAB PO SCH (22:00)
[2024-06-10] MEDS: MIRTAZAPINE TAB 15 MG TAB PO SCH (22:00)
[2024-06-10] MEDS: VALSARTAN/SACUBITRIL 26/24MG TAB PO SCH (22:00)
[2024-06-10] MEDS: MELATONIN 3 MG TAB PO SCH (22:00)
[2024-06-10] MEDS: SENNA 8.6 MG TAB PO SCH (22:11)
[2024-06-11 07:29] LABS: Basophils # (auto) 0.02 K/uL (0.00-0.20); Basophils % (auto) 0.3 %; Eosinophils # (auto) 0.06 K/uL (0.00-0.50); Hemoglobin 11.8 g/dl (14.0-18.0); Immature Granulocytes # (auto) 0.04 K/uL (0.01-0.20); Immature Granulocytes % (auto) 0.6 %; Lymphocytes # (auto) 0.79 K/uL (1.20-3.40); Lymphocytes % (auto) 12.8 %; Mean Corpuscular Hemoglobin 30.3 pg (25.0-34.0); Mean Corpuscular Hgb Conc 31.9 g/dL (32.0-36.0); Mean Corpuscular Volume 95.1 fL (80.0-100.0); Mean Platelet Volume 9.5 fL (9.4-12.4); Monocytes # (auto) 0.68 K/uL (0.11-0.59); Neutrophils # (auto) 4.58 K/uL (1.40-6.50); Neutrophils % (auto) 74.3 %; Platelet Count 193 K/uL (130-400); RDW Coefficient of Variation 19.3 % (11.5-14.5); RDW Standard Deviation 66.9 fL (36.4-46.3); Red Blood Count 3.89 M/uL (4.70-6.10); White Blood Count 6.17 K/ul (4.8-10.8)
[2024-06-11] MEDS: RIVAROXABAN 20 MG TAB PO SCH (07:55)
[2024-06-11] MEDS: NYSTATIN POWDER 15GM BTL EXT SCH (07:56)
[2024-06-11] MEDS: EMPAGLIFLOZIN 10 MG TAB PO SCH (07:56)
[2024-06-11] MEDS: PANTOprazole 40 MG TAB PO SCH (07:56)
[2024-06-11 08:08] LABS: BUN Creatinine Ratio 28.2 (10-20); C Reactive Protein 0.58 mg/dl (0-0.5); Calcium 8.5 mg/dl (8.6-10.3); Creatinine Clr Calc Pharmacy 70.2 ml/min; Potassium 4.7 mmol/L (3.5-5.1)
[2024-06-11] MEDS: TAMSULOSIN HCL 0.4 MG CAP PO SCH (08:41)
[2024-06-11] MEDS: BUMETANIDE 1 MG TAB PO SCH (08:41)
[2024-06-11] MEDS: DULoxetine HCL 60 MG CAP PO SCH (08:41)
[2024-06-11] MEDS: METOPROLOL SUCC 25MG EXT REL TAB PO SCH (08:41)
[2024-06-11] MEDS: ASPIRIN 81 MG ECTAB PO SCH (08:41)
[2024-06-11] MEDS: THIAMINE HCL 100 MG TAB PO SCH (08:42)
[2024-06-11] MEDS: oxyCODONE HCL IR 5 MG TAB (IMMEDIATE RELEASE) PO PRN ×2 (08:43→23:06)
[2024-06-11] MEDS: ACETAMINOPHEN 325 MG TAB PO PRN (11:38)
--- NOTE | 2024-06-11 11:54 | XRay Report ---
XR foot RT 2V CLINICAL HISTORY: Concern for osteo in head of the fifth metatarsal COMPARISON: Right foot radiographs May 18, 2024. CTA with runoff June 10, 2024. FINDINGS: Extensive dorsal soft tissue swelling of the right foot is present. There is extensive vas cular calcification. Plantar calcaneal spur is present. Tarsometatarsal joints are intact. There are no fractures within the right foot. There is no bony erosion to suggest acute osteomyelitis. IMPRESSION: 1. No evidence for acute osteomyelitis within the right foot. 2. Extensive dorsal soft tissue swelling. ACT 112: Negative or not required by law. Electronically signed by: Jong Nascimento M.D. 06/11/2024 11:51 AM
--- NOTE | 2024-06-11 12:08 | XRay Report ---
XR foot LT 2V CLINICAL HISTORY: Concern for osteo in head of the fifth metatarsal COMPARISON: CTA with runoff June 10, 2024. FINDINGS: There is hallux valgus. Moderate osteoarthritis of the left first metatarsophalangeal join t is present. There are no fractures within the left foot. No bony erosion is identified. Dorsal soft tissue swelling is present. There is chronic deformity of the left second toe. IMPRESSION: 1. No evidence for acute osteomyelitis within the left foot. 2. Dorsal foot soft tissue swelling. ACT 112: Negative or not required by law. Electronically signed by: Jong Nascimento M.D. 06/11/2024 12:06 PM
[2024-06-11] MEDS: DAPTOmycin 375 MG in SYRINGE 0 ML IV SCH (12:43)
[2024-06-11] MEDS: ERTAPENEM 1000MG 1,000 MG/10 ML SYR IV SCH (12:43)
--- NOTE | 2024-06-11 16:23 | Hospitalist Progress Note ---
Date of Service June 11, 2024 Assessment & Plan (1) Recurrent cellulitis of lower extremity: Plan: 78yo male with PMHx of MRSA infection (on doxycycline ppx), prosthetic right knee infection, CAD, CHF, sepsis, rhabdomyolysis, NSTEMI, atrial fibrillation (on Xarelto), chronic venous stasis, peripheral neuropathy, and cellulitis. He has recurrent lower extremity cellulitis infections bilaterally with multiple hospitalizations from this. [facility] acute onset of lower extremity pain/swelling over 24 hours. On admission, patient was somnolent which daughter reports tends to happen to him prior to episodes of bacteremia. -Recent [place] admission 05/26 - 05/29 for cellulitis and positive MRSA and Proteus mirabilis ESBL wound culture at that time -Blood cultures: negative x 24 hours -Infectious disease consulted, appreciate recommendations -Continue ertapenem 1000 mg IV Q24H, daptomycin 375 mg IV Q24H; hold statin while on Dapto. Antibiotic selection based on wound culture from 06/02/24 -Pain regimen: Scheduled Tylenol 1000 mg Q8H, gabapentin 600 mg TID, oxycodone 5 mg Q6H PRN for breakthrough/severe pain -CTA with runoff ordered due to concern for arterial blockage and is lower extremities preventing antibiotics from penetrating infection -Imaging revealed bilateral extensive atherosclerosis of the infrapopliteal arteries with no significant contrast material noted in tibial arteries or peroneal arteries below mid tibiafibula level -Bilateral foot x-rays obtained due to concern for osteomyelitis in the heads of fifth metatarsal bilaterally -- no evidence for acute osteomyelitis bilaterally -Weak pedal pulses bilaterally; if pulses cannot be felt, use Doppler (2) Lethargy: Plan: Notable lethargy at time of admission, now resolved and patient is awake, A&O x3 (3) Atrial fibrillation: Plan: Rate controlled Continue Xarelto and amiodarone (4) Pressure ulcer of foot, stage 3: Plan: Daily wound care Wound care nurse consult appreciated (5) Chronic diastolic heart failure: Plan: Continue metoprolol, Entresto, Bumex, and Jardiance (6) History of infection of total joint prosthesis of knee: Plan: Per last ID note, okay to continue doxycycline upon discharge for this specific joint infection Plan Ordered bilateral foot x-rays Reviewed previous infectious disease notes/recommendations VTE PPx: Xarelto CODE STATUS: Full code Dispo: Awaiting ID consult on 06/13/2024, continue IV antibiotics Of note, CTA incidentally noted cystic lesion in the mid body of the pancreas measuring 2.0 cm, which may represent an IPMN. Follow/monitor as indicated outpatient. Admission and Anticipated Discharge Date Admission Date: June 10, 2024 Subjective Patient seen and evaluated at bedside. He reports that his feet are painful bilaterally, especially in his toes. He notes that he is significantly weaker than his baseline and states "my legs keep buckling" with standing. He denies nausea, vomiting, headache, shortness of breath, chest pain, bowel/bladder problems. He notes that yesterday he was very lethargic, but does believe he is improved on that front today. We discussed that unfortunately the infectious disease consult likely will not happen until 06/13/2024. He is understanding. No additional complaints or concerns at this time. Physical Exam Physical Exam: General: No acute distress, nondiaphoretic, well-developed, well-nourished. Cardiac: Regular rate and rhythm without murmurs gallops or rubs. Pulm: Diminished at bases but otherwise clear to auscultation bilaterally without wheezes, rales or rhonchi. No respiratory distress. 90% on room air. Abdominal: Soft, nontender, nondistended. Bowel sounds present. Neuro: A&O x3. No focal neurological deficits. Extremities: Bilateral lower extremities with multiple ulcerations and superficial wounds in various stages of healing. Wound on anterior right antonio with purulent drainage and malodor. Erythema extends from toes to midfoot bilaterally. 2+ pitting edema in feet bilaterally. 1+ pitting edema from ankles to knees bilaterally. Bilateral LEs tender to touch. Weak pedal pulses bilaterally. Results & Data Results & Data Vital Signs (Past 12 Hours) Vital Signs Temp Pulse Pulse Resp BP Pulse Ox O2 Del Method 06/11/24 15:27 98.6 F 68 20 111/68 90 Room Air 06/11/24 13:58 71 06/11/24 11:28 97.5 F L 70 20 102/61 92 Room Air 06/11/24 11:00 97.9 F 77 18 102/67 94 Room Air 06/11/24 08:29 97.9 F 79 20 162/90 H 93 Room Air 06/11/24 08:00 Room Air 06/11/24 07:00 91 H Laboratory Results Reviewed CBC Reviewed BMP and CRP Reviewed blood cultures PG Care Time/CCT Total # of Minutes Spent Total Time Spent with Patient: Total time spent is greater than 50% in coordination of care (as documented) at patient's floor/unit and/or counseling patient: Coding Level of Care Code 23320 SUB INP/OBS CARE 3/50MIN Diagnoses Recurrent cellulitis of lower extremity L03.119 Lethargy R53.83 Atrial fibrillation I48.91 Pressure injury of right foot, stage 3 L89.893 Laterality: right Chronic diastolic heart failure I50.32 History of infection of total joint prosthesis of knee Z87.39 (4) Pressure ulcer of foot, stage 3 Laterality: right Qualified Code(s): L89.893 - Pressure ulcer of other site, stage 3
[2024-06-11] MEDS: ACETAMINOPHEN 500 MG TAB PO SCH (21:37)
[2024-06-11] MEDS: LATANOPROST 0.005% OP SOLN 2.5 ML BTL OPB SCH (21:38)
[2024-06-12 06:25] LABS: Calcium 8.6 mg/dl (8.6-10.3); Creatinine Clr Calc Pharmacy 77.2 ml/min; Potassium 4.6 mmol/L (3.5-5.1)
[2024-06-12 06:29] LABS: Basophils # (auto) 0.02 K/uL (0.00-0.20); Basophils % (auto) 0.4 %; Eosinophils # (auto) 0.07 K/uL (0.00-0.50); Eosinophils % (auto) 1.3 %; Hematocrit (blood only) 36.7 % (42.0-52.0); Hemoglobin 11.7 g/dl (14.0-18.0); Immature Granulocytes # (auto) 0.04 K/uL (0.01-0.20); Immature Granulocytes % (auto) 0.8 %; Lymphocytes # (auto) 0.88 K/uL (1.20-3.40); Lymphocytes % (auto) 16.7 %; Mean Corpuscular Hgb Conc 31.9 g/dL (32.0-36.0); Mean Corpuscular Volume 97.1 fL (80.0-100.0); Mean Platelet Volume 9.6 fL (9.4-12.4); Monocytes # (auto) 0.65 K/uL (0.11-0.59); Monocytes % (auto) 12.3 %; Neutrophils # (auto) 3.62 K/uL (1.40-6.50); Neutrophils % (auto) 68.5 %; Platelet Count 175 K/uL (130-400); RDW Coefficient of Variation 19.3 % (11.5-14.5); RDW Standard Deviation 69.4 fL (36.4-46.3); Red Blood Count 3.78 M/uL (4.70-6.10); White Blood Count 5.28 K/ul (4.8-10.8)
--- NOTE | 2024-06-12 15:31 | Hospitalist Progress Note ---
Date of Service June 12, 2024 Assessment & Plan (1) Recurrent cellulitis of lower extremity: Plan: 78yo male with PMHx of MRSA infection (on doxycycline ppx), prosthetic right knee infection, CAD, CHF, sepsis, rhabdomyolysis, NSTEMI, atrial fibrillation (on Xarelto), chronic venous stasis, peripheral neuropathy, and cellulitis. He has recurrent lower extremity cellulitis infections bilaterally with multiple hospitalizations from this. [facility] acute onset of lower extremity pain/swelling over 24 hours. On admission, patient was somnolent which daughter reports tends to happen to him prior to episodes of bacteremia. -Recent [place] admission 05/26 - 05/29 for cellulitis and positive MRSA and Proteus mirabilis ESBL wound culture at that time -Blood cultures: negative x 48 hours -Infectious disease consulted, appreciate recommendations -Continue ertapenem 1000 mg IV Q24H, daptomycin 375 mg IV Q24H; hold statin while on Dapto. Antibiotic selection based on wound culture from 06/02/24 -Pain regimen: Scheduled Tylenol 1000 mg Q8H, gabapentin 600 mg TID, oxycodone 5 mg Q6H PRN for breakthrough/severe pain -CTA with runoff revealed bilateral extensive atherosclerosis of the infrapopliteal arteries with no significant contrast material noted in tibial arteries or peroneal arteries below mid tibiafibula level -No evidence for acute osteomyelitis in feet bilaterally -Weak pedal pulses bilaterally; if pulses cannot be felt, use Doppler -Consider vascular surgery referral on discharge (2) Lethargy: Plan: Notable lethargy at time of admission, now resolved and patient is awake, A&O x3 (3) Atrial fibrillation: Plan: Rate controlled Continue Xarelto and amiodarone (4) Pressure ulcer of foot, stage 3: Plan: Daily wound care Wound care nurse consult appreciated (5) Chronic diastolic heart failure: Plan: Continue metoprolol, Entresto, Bumex, and Jardiance (6) History of infection of total joint prosthesis of knee: Plan: Per last ID note, okay to continue doxycycline upon discharge for this specific joint infection Plan VTE PPx: Xarelto CODE STATUS: Full code Dispo: Awaiting ID consult on 06/13/2024, continue IV antibiotics Of note, CTA incidentally noted cystic lesion in the mid body of the pancreas measuring 2.0 cm, which may represent an IPMN. Follow/monitor as indicated outpatient. Admission and Anticipated Discharge Date Admission Date: June 10, 2024 Subjective Patient seen and evaluated in bedside chair. He reports that his leg pain is improving, has decreased in intensity today. He also states his weakness seems slightly improved compared to yesterday. He has never [facility] Awaiting ID consult tomorrow, 06/13/2024. No additional complaints or concerns at this time. Physical Exam Physical Exam: General: No acute distress, nondiaphoretic, well-developed, well-nourished. Cardiac: Regular rate and rhythm without murmurs gallops or rubs. Pulm: Diminished at bases but otherwise clear to auscultation bilaterally without wheezes, rales or rhonchi. No respiratory distress. 95% on room air. Abdominal: Soft, nontender, nondistended. Bowel sounds present. Neuro: A&O x3. No focal neurological deficits. Extremities: Bilateral lower extremities with multiple ulcerations and superficial wounds in various stages of healing covered with optifoams. Wound on anterior right antonio with drainage seeping through. Erythema extends from toes to midfoot bilaterally. 2+ pitting edema in feet bilaterally. 1+ pitting edema from ankles to knees bilaterally. Bilateral feet/toes tender to touch. Weak pedal pulses bilaterally. Results & Data Results & Data Vital Signs (Past 12 Hours) Vital Signs Temp Pulse Pulse Resp BP Pulse Ox O2 Del Method 06/12/24 13:55 71 06/12/24 11:02 98.2 F 68 16 126/79 95 Room Air 06/12/24 08:13 Room Air 06/12/24 08:06 98.1 F 67 16 169/94 H 95 Room Air 06/12/24 07:06 66 Laboratory Results Reviewed CBC Reviewed BMP Reviewed blood cultures PG Care Time/CCT Total # of Minutes Spent Total Time Spent with Patient: Total time spent is greater than 50% in coordination of care (as documented) at patient's floor/unit and/or counseling patient: Coding Level of Care Code 66236 SUB INP/OBS CARE 2/35MIN Diagnoses Recurrent cellulitis of lower extremity L03.119 Lethargy R53.83 Atrial fibrillation I48.91 Pressure injury of right foot, stage 3 L89.893 Laterality: right Chronic diastolic heart failure I50.32 History of infection of total joint prosthesis of knee Z87.39 (4) Pressure ulcer of foot, stage 3 Laterality: right Qualified Code(s): L89.893 - Pressure ulcer of other site, stage 3
[2024-06-13 06:34] LABS: Basophils # (auto) 0.01 K/uL (0.00-0.20); Basophils % (auto) 0.2 %; Eosinophils % (auto) 1.5 %; Hematocrit (blood only) 39.3 % (42.0-52.0); Hemoglobin 12.8 g/dl (14.0-18.0); Immature Granulocytes # (auto) 0.04 K/uL (0.01-0.20); Immature Granulocytes % (auto) 0.6 %; Lymphocytes # (auto) 0.94 K/uL (1.20-3.40); Lymphocytes % (auto) 14.6 %; Mean Corpuscular Hemoglobin 31.1 pg (25.0-34.0); Mean Corpuscular Hgb Conc 32.6 g/dL (32.0-36.0); Mean Corpuscular Volume 95.6 fL (80.0-100.0); Mean Platelet Volume 9.4 fL (9.4-12.4); Monocytes # (auto) 0.69 K/uL (0.11-0.59); Monocytes % (auto) 10.7 %; Neutrophils # (auto) 4.68 K/uL (1.40-6.50); Neutrophils % (auto) 72.4 %; Platelet Count 177 K/uL (130-400); RDW Coefficient of Variation 18.6 % (11.5-14.5); Red Blood Count 4.11 M/uL (4.70-6.10); White Blood Count 6.46 K/ul (4.8-10.8)
[2024-06-13 06:37] LABS: BUN Creatinine Ratio 28.2 (10-20); Calcium 8.7 mg/dl (8.6-10.3); Creatinine Clr Calc Pharmacy 65.5 ml/min; Potassium 4.8 mmol/L (3.5-5.1)
--- NOTE | 2024-06-13 08:42 | Electrocardiogram Report ---
Test Reason : Blood Pressure : */* mmHG Vent. Rate : 68 BPM Atrial Rate : 68 BPM P-R Int : 194 ms QRS Dur : 114 ms QT Int : 422 ms P-R-T Axes : 41 -32 23 degrees QTcB Int : 448 ms Sinus rhythm with occasional Premature ventricular complexes Left axis deviation Nonspecific T wave abnormality Abnormal ECG When compared with ECG of 26-May-2024 16:23, Premature ventricular complexes are now Present Confirmed by Mnajit Hall ([id number]) on 06/13/2024 8:42:03 AM Referred By: REFERRED SELF Confirmed By: Manjit Hall
--- NOTE | 2024-06-13 11:25 | Infectious Disease Consult ---
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 s/p DAIR + vanc x 6wks followed by doxy suppression, right knee PJI 02/2024 at [place] s/p I+D on 02/19 with cx + Enterobacter cloacae, s/p 6 weeks antibiotics (discharged on cefepime, changed to ertapenem 03/18 due to JEFFERY), ended 04/06 and doxy suppression for prior MRSA, afib, CAD, depression, chronic venous stasis, peripheral neuropathy, chronic low back pain 2/2 spinal stenosis, L knee TKA, B/l rotator cuff surgery, R hip arthroplasty, admission 03/2024 with VRE faecium bacteremia (TTE without vegetations, right knee aspiration neg, PICC removed for ?line infection) s/p daptomycin x 2wks (ended 04/15), chronic LE ulcers ( follows with wound care) admission 05/18-05/20 for aflutter with RVR s/p cardioversion, admission 05/26- 05/28, with bilateral foot pain with cellulitis ( wound cx from right foot on 05/13 + MRSA with resistance to tetracycline)---> received daptomycin inpatient and discharged on 10 days of Bactrim. He presents on 06/10/23 for evaluation of bilateral foot wounds with increased pain and burning. He reported unsteady gait for few days. He completed his course of Bactrim. He restarted doxycycline suppression. He noted some increasing pain and discharge from the right great toe and left great toe wound. He endorsed greater than baseline pain at Right lateral foot wound. He denied fever, chills, sweats. He was seen at wound care on 06/02 and underwent wound debridement. Wound cultures obtained at that time now positive for MRSA and ESBL Proteus). In the ED he is afebrile and hemodynamically stable.. Labs: WBC 7.76, BUN 39, creatinine 1.32. Bilateral foot x-rays without evidence of acute osteomyelitis. Dorsal foot soft tissue swelling demonstrated on the left and extensive dorsal soft tissue swelling on the right. Aorta with runoff CTA shows extensive calcified atherosclerotic plaques making patency evaluation limited bilaterally. Extensive soft tissue edematous changes of the lower left lower extremities with scattered ulcerative defects noted. Irregularities in the heads of the fifth metatarsals bilaterally could represent osteomyelitis or posttraumatic changes. He has been started on ertapenem and daptomycin. ID consulted for cellulitis. His son is on FaceTime and provides additional history. Patient complains of continued BL lower extremity pain. Microbiology: Blood culture 06/10/2024 NGTD Prior microbiology: Wound culture 06/02/2024 ESBL Proteus Mirabilis (sensitive to amox, clav cefoxitin, ertapenem, meropenem, Zosyn), MRSA Wound culture 06/02/2024 MRSA (sensitive to daptomycin, linezolid, Bactrim, vancomycin) resistant to tetracycline Wound culture 05/13/2024 MRSA (sensitive to daptomycin, linezolid, Bactrim, vancomycin) resistant to tetracycline Blood cultures 03/30/2024 VRE (E faecium) Antibiotics: Ertapenem 06/10ongoing Daptomycin/ongoing Doxycycline outpatient suppression-held 06/10 - #BL foot wounds and cellulitis #Possible B/L fifth metatarsal head osteomyelitis vs posttraumatic changes seen on CTA runoff imaging . 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 Discussion: He has recurrent bilateral foot cellulitis in setting of PVD. Bilateral lower extremity cellulitis is rare however in his case he has chronic wounds in different areas of the lower extremity that are superficially infected. Areas of concern are painful and tender. I have additional concerns for osteomyelitis at the right fifth bone as he has a lateral foot ulcer and I am able to probe to bone with the assistance of telepresenter. Most recent wound cultures from foot + ESBL proteus mirabilis and MRSA, both R to doxycycline which he is on for chronic suppression of R knee PJI. Recommendations -Continue daptomycin 4 mg/kg IV daily and Ertapenem 1 g iv daily for SSTI -Obtain MRI of BL feet to further investigate for osteomyelitis -Wound care -Follow Up D/w team Thank you for this consult. ID will continue to follow Gavi Rich MD, MPH Infectious Disease [facility], [facility] Call [phone] with questions Consultation Information Consultation was provided via telemedicine using two-way real-time interactive telecommunication between the patient and the telemedicine provider. For the duration of the visit, the provider was performing the assessment from a different facility than the patient. This includesuse of bluetooth stethoscope forauscultationperformed by the telepresenter that the telemedicine provider can hear if described in the physical exam. [employer] contact information: Please call [facility] Call Center [phone]. 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 s/p DAIR + vanc x 6wks followed by doxy suppression, right knee PJI 02/2024 at [place] s/p I+D on 02/19 with cx + Enterobacter cloacae, s/p 6 weeks antibiotics (discharged on cefepime, changed to ertapenem 03/18 due to JEFFERY), ended 04/06 and doxy suppression for prior MRSA, afib, CAD, depression, chronic venous stasis, peripheral neuropathy, chronic low back pain 2/2 spinal stenosis, L knee TKA, B/l rotator cuff surgery, R hip arthroplasty, admission 03/2024 with VRE faecium bacteremia (TTE without vegetations, right knee aspiration neg, PICC removed for ?line infection) s/p d aptomycin x 2wks (ended 04/15), chronic LE ulcers ( follows with wound care) admission 05/18-05/20 for aflutter with RVR s/p cardioversion, admission 05/26- 05/28, with bilateral foot pain with cellulitis ( wound cx from right foot on 05/13 + MRSA with resistance to tetracycline)---> received daptomycin inpatient and discharged on 10 days of Bactrim. He presents on 06/10/23 for evaluation of bilateral foot wounds with increased pain and burning. He reported unsteady gait for few days. He completed his course of Bactrim. He restarted doxycycline suppression. He noted some increasing pain and discharge from the right great toe and left great toe wound. He endorsed greater than baseline pain at Right lateral foot wound. He denied fever, chills, sweats. He was seen at wound care on 06/02 and underwent wound debridement. Wound cultures obtained at that time now positive for MRSA and ESBL Proteus). In the ED he is afebrile and hemodynamically stable.. Labs: WBC 7.76, BUN 39, creatinine 1.32. Bilateral foot x-rays without evidence of acute osteomyelitis. Dorsal foot soft tissue swelling demonstrated on the left and extensive dorsal soft tissue swelling on the right. Aorta with runoff CTA shows extensive calcified atherosclerotic plaques making patency evaluation limited bilaterally. Extensive soft tissue edematous changes of the lower left lower extremities with scattered ulcerative defects noted. Irregularities in the heads of the fifth metatarsals bilaterally could represent osteomyelitis or posttraumatic changes. He has been started on ertapenem and daptomycin. ID consulted for cellulitis. His son is on FaceTime and provides additional history. Patient complains of continued BL lower extremity pain. Allergies Allergy/AdvReac Type Severity Reaction Status Date / Time cat dander Allergy Severe CAT Verified 06/02/24 09:02 HAIR---Swelling of Lip/Tongue/Throat Home Medications Medication Instructions Recorded Confirmed Type aspirin 81 mg tablet,delayed 81 mg PO QAM 08/07/22 06/10/24 History release (Adult Low Dose Aspirin) msrmdskz-eewyalb-pwhg-lutein tablet 1 tab PO QAM 08/07/22 06/10/24 History cyanocobalamin (vitamin B-12) 500 1,000 mcg (2 x 500 mcg) PO QAM #30 01/18/23 06/10/24 Rx mcg tablet tabs thiamine HCl (vitamin B1) 100 mg 100 mg PO QAM 02/05/23 06/10/24 History tablet duloxetine 60 mg capsule,delayed 60 mg PO QAM #90 caps 10/29/23 06/10/24 Rx release rivaroxaban 20 mg tablet (Xarelto) 20 mg PO DAILY 11/19/23 06/10/24 History sennosides 8.6 mg tablet 8.6 mg PO BID 12/15/23 06/10/24 History cholecalciferol (vitamin D3) 10 20 mcg PO DAILY 01/21/24 06/10/24 History mcg (400 unit) tablet mirtazapine 30 mg tablet 30 mg PO HS 01/21/24 06/10/24 History nitroglycerin 0.4 mg sublingual 0.4 mg sublingual DIRECTED PRN 01/21/24 06/10/24 History tablet chest pin pravastatin 40 mg tablet 40 mg PO HS 01/21/24 06/10/24 History vitamin E 268 mg (400 unit) capsule 268 mg PO DAILY ##0 01/21/24 06/10/24 History acetaminophen 325 mg tablet 975 mg PO Q8H PRN mild pain,fever, 01/26/24 06/10/24 History or headache omega 9-bmq-qrs-fish oil 900 1 cap PO DAILY 02/01/24 06/10/24 History mg-1,400 mg capsule,delayed release doxycycline hyclate 100 mg capsule 100 mg PO BID 03/29/24 06/10/24 History latanoprost 0.005 % eye drops 1 drp OPB QPM 03/29/24 06/10/24 History nystatin 100,000 unit/gram topical 1 applic topical DAILY 03/29/24 06/10/24 History powder vitamin B comp and C no.3 15 mg-10 1 cap PO DAILY 03/29/24 06/10/24 History mg-50 mg-5 mg-300 mg capsule (B Complex Plus Vitamin C) diphenhydramine HCl 25 mg capsule 25 mg PO Q6H PRN itching #10 caps 04/07/24 06/10/24 Rx (Benadryl) metoprolol succinate 25 mg 25 mg PO QAM #30 tabs 04/07/24 06/10/24 Rx tablet,extended release 24 hr empagliflozin 10 mg tablet 10 mg PO DAILY #90 tabs 05/11/24 06/10/24 Rx (Jardiance) ferrous sulfate 325 mg (65 mg 325 mg PO DAILY #90 tabs 05/11/24 06/10/24 Rx iron) tablet sacubitril 24 mg-valsartan 26 mg 1 tab PO BID #180 tabs 05/11/24 06/10/24 Rx tablet (Entresto) tamsulosin 0.4 mg capsule 0.4 mg PO DAILY #90 caps 05/11/24 06/10/24 Rx gabapentin 600 mg tablet 600 mg PO TID neuropathy from 05/12/24 06/10/24 Rx severe PVD wounds 1 month #90 tabs oxycodone 5 mg tablet See Rx Instructions PO Q6H PRN 05/12/24 06/10/24 Rx pain 1 month #100 tabs arginine 7 gram-glutamine 7 1 ea PO BID 05/18/24 06/10/24 History gram-calcium HMB 1.5 gram oral powder pack (Dom) folic acid 1 mg tablet 1 mg PO DAILY 05/18/24 06/10/24 History melatonin 3 mg tablet 6 mg PO HS 05/18/24 06/10/24 History omeprazole 20 mg tablet,delayed 20 mg PO DAILY 05/18/24 06/10/24 History release amiodarone 200 mg tablet 400 mg (2 x 200 mg) PO BIDM 30 05/20/24 06/10/24 Rx days #120 tabs bumetanide 0.5 mg tablet 0.5 mg PO DAILY 05/27/24 06/10/24 History Patient History Medical History Open wound of left lower extremity Sepsis secondary to UTI Fever Sepsis due to skin infection Sepsis Fall Infected hardware in right leg Chronic infection of right knee UTI (urinary tract infection) Severe sepsis Venous ulcer of right leg Venous stasis ulcers of both lower extremities Idiopathic polyneuropathy History of immunosuppressive therapy Heart failure with preserved ejection fraction GERD (gastroesophageal reflux disease) Sepsis Septicemia due to Streptococcus pneumoniae Respiratory failure with hypoxia Hypomagnesemia Pneumonia Benign essential hypertension Lumbar stenosis Hx of staphylococcal infection 03/2022, w/"bacterial infection" at the same, in the rt. knee, occurrred during atrial fibrillation episode. "when he woke up, he couldn't walk." Atrial fibrillation episode occurred in 03/2022, taken to [facility] in [place], admitted to ICU for 1-2 weeks (was not intubated, but wasn't "awake either"), then to cardiac unit, then to rehab at [facility]; f/u dr. guerra in [place]>will be starting to see a rn imaging at [facility] 2nd week of 08/2022 Myocardial Infarction "a silent one, 2019" Sleep apnea no device Surgical History Status post revision of total replacement of right knee Hx of Achilles tendon repair rt. Hx of knee surgery rt. patellar tendon repair Hx of rotator cuff surgery bilateral Hx of total knee replacement lt. Hx of total hip arthroplasty rt. History of colostomy reversal History of bowel resection for diverticulitis; w/colostomy placement for 3-4 months Hx of hernia repair near former colostomy site History of esophagogastroduodenoscopy (EGD) Hx of colonoscopy Last Colonoscopy 08/14/22, repeat 3 years in 2025 Hx of bilateral cataract extraction History of heart artery stent ~3 years ago, x2 stents, done in [place]; f/u dr guerra, [place]>will be seeing new cardio at [facility] of August 2022. History of cardiac cath ~3 years ago, SOB and "felt like throat was constricting", had "silent heart attack", x2 stents, done in [place] Family History Grandmother (Maternal) Diabetes Daughter Diabetes Father Suicide Hypertension Denies family history of Ovarian cancer Prostate cancer Myocardial infarction Breast cancer Lung cancer Colorectal cancer Stroke Social History Smoking Status: Never smoker Second Hand Exposure: No; Do You Dip or Chew Tobacco: No; Hx Alcohol Use: Yes Alcohol type: wine Alcohol Intake Frequency: 4 or More x per/Week Hx Substance Use: No Preferred Language: [place] Communication Ability: Effective Visual Impairment: Limited Hearing Ability: Normal Home Health Care Worker Required: No Beliefs That Will Affect Care: None marital status: Single Current Living Situation: Other Current Living Situation Comment: resides in independent living facility current occupational status: retired How many Children do You have: 2 Feels Safe at Home: Yes Childhood Exposure to Second-Hand Smoke: Yes Diet: regular caffeine: Yes Dental Care, Regularly: Yes Physical Activity Frequency: Does not Exercise Seatbelt Use: always Sunscreen Use: Yes Assistive Devices: Wheelchair Review of System A 10 Point review of systems obtained. Pertinent positives as per HPI. Physical Exam Physical Exam: Gen- NAD, laying in bed, son on face time on telephone Neck- supple HEENT- ATNC, anicteric sclera Abd- soft, nt, nd Lung- non labored breathing EXT- R knee incision healing well,R lateral foot deep wound- tender, mild surrounding erythema and slightly macerated , able to probe, R great toe and 2nd toe wound ; erythematous. tender, Ledr knee and antonio abrasion Left great toe wound, erythema with drainage.Tender Neuro- AAO times 4 Psych- cooperative, normal mood Results & Data Vital Signs (Past 12 Hours) Vital Signs Temp Pulse Pulse Resp BP Pulse Ox O2 Del Method 06/13/24 08:03 36.3 C L 65 12 177/86 H 90 Room Air 06/13/24 07:00 77 06/13/24 03:32 37 C 70 18 173/91 H 94 Room Air Laboratory Results Laboratory Results - last 48 hr 06/12/24 06/13/24 05:18 05:52 WBC 5.28 6.46 RBC 3.78 L 4.11 L Hgb 11.7 L 12.8 L Hct 36.7 L 39.3 L MCV 97.1 95.6 MCH 31.0 31.1 MCHC 31.9 L 32.6 RDW Std Deviation 69.4 H 66.0 H RDW Coeff of Sammie 19.3 H 18.6 H Plt Count 175 177 MPV 9.6 9.4 Immature Gran % (Auto) 0.8 0.6 Neut % (Auto) 68.5 72.4 Lymph % (Auto) 16.7 14.6 Sanborn % (Auto) 12.3 10.7 Eos % (Auto) 1.3 1.5 Baso % (Auto) 0.4 0.2 Neut # (Auto) 3.62 4.68 Lymph # (Auto) 0.88 L 0.94 L Sanborn # (Auto) 0.65 H 0.69 H Eos # (Auto) 0.07 0.10 Baso # (Auto) 0.02 0.01 Immature Gran # (Auto) 0.04 0.04 Sodium 138 138 Potassium 4.6 4.8 Chloride 105 102 Carbon Dioxide 30 31 Anion Gap 3 5 BUN 32 H 33 H Creatinine 1.00 1.17 Est Cr Clr Drug Dosing 77.2 65.5 eGFR 76.08 63.02 BUN/Creatinine Ratio 32.0 H 28.2 H Glucose 96 102 H Calcium 8.6 8.7 Diagnostic Findings Microbiology 06/10/24 14:28 Blood Aerobic Blood Culture - Preliminary No growth in Aerobic bottle after 48 hours. 06/10/24 14:28 Blood Anaerobic Blood Culture - Preliminary No growth in Anaerobic bottle after 48 hours. 06/10/24 11:04 Blood Aerobic Blood Culture - Preliminary No growth in Aerobic bottle after 48 hours. 06/10/24 11:04 Blood Anaerobic Blood Culture - Preliminary No growth in Anaerobic bottle after 48 hours. Aorta w/Runoff CTA 06/10/24 15:06 CT ANGIOGRAM of the ABDOMEN/PELVIS AORTOGRAM with BILATERAL LOWER EXTREMITY RUNOFF: Indication: Lower extremity pain IV CONTRAST: 100 mL of OMNIPAQUE 300 COMPARISON: None FINDINGS: Limited images through the lower thorax: Cardiomegaly, coronary calcifications. Multiple calcified mediastinal and hilar lymph nodes. Calcified granulomas of the lungs. The visualized upper abdominal visceral structures: There is a cystic lesion in the mid body of the pancreas measuring 2.0 cm. ScatteredHepatic hypodensities Kidneys: There appears to be symmetric nephrograms of the kidneys. Gallbladder and biliary tree, pancreas and adrenal glands: Unremarkable. Scattered lymph nodes. Bowel loops: Prior sigmoid colonic resection with primary anastomosis. Appendectomy changes. ABDOMINAL WALL midline incision scar. Small supraumbilical anterior ventral hernia containing fat. Small hernia defect in the left lower anterior abdominal wall, presumed from prior colostomy creation. Skeletal: No acute process identified.Grade 1-2 anterolisthesis of L5 on S1 with associate chronic pars defects. ANGIOGRAM FINDINGS: CTA RUNOFF of BILATERAL Lower Extremities: The MIP images, sagittal and coronal reformats were created. The 3D MIP image reformations were then rotated around the multiple planes. Additional MIP slab reformats were also performed. Source axial images are also available for interpretation. ABOMEN CTA: No hemodynamically significant stenosis. BILATERAL CTA RUNOFF: RIGHT: Extensive atherosclerosis of the infrapopliteal arteries with no significant contrast material noted in the anterior tibial, posterior tibial as well as peroneal arteries below the mid tibia-fibula level. Patency is also very limited due to extensive calcified atherosclerotic plaques. Occlusive changes may be present. LEFT: Extensive atherosclerosis of the infrapopliteal arteries with no significant contrast material noted in the anterior tibial, posterior tibial as well as peroneal arteries below the mid tibia-fibula level. Patency is also very limited due to extensive calcified atherosclerotic plaques. Occlusive changes may be present. Bilaterally there are extensive soft tissue edematous changes of the lower extremities with scattered ulcerative defects. Status post bilateral knee arthroplasties and right hip arthroplasty. IMPRESSION: RIGHT LOWER EXTREMITY: Extensive atherosclerosis of the infrapopliteal arteries with no significant contrast material noted in the anterior tibial, posterior tibial as well as peroneal arteries below the mid tibia-fibula level. Patency assessment is also very limited due to extensive calcified atherosclerotic plaques. Occlusive changes may be present. LEFT LOWER EXTREMITY: Extensive atherosclerosis of the infrapopliteal arteries with no significant contrast material noted in the anterior tibial, posterior tibial as well as peroneal arteries below the mid tibia-fibula level. Patency assessment is also very limited due to extensive calcified atherosclerotic plaques. Occlusive changes may be present. If indicated, arterial duplex ultrasound examination of the lower extremities may be obtained. Bilaterally there are extensive soft tissue edematous changes of the lower extremities with scattered ulcerative defects. Status post bilateral knee arthroplasties and right hip arthroplasty. Moderate right knee joint fluid Irregularities in the heads of the fifth metatarsals bilaterally could represent osteomyelitis or posttraumatic changes. OTHER: There is a cystic lesion in the mid body of the pancreas measuring 2.0 cm. This may represent an IPMN. Evidence of prior granulomatous process exposure with calcified pulmonary granulomas, calcified splenic granulomas and calcified lymph nodes. Cardiomegaly with extensive coronary calcifications. Electronically signed by Gee Law 06-10-2024 4:55 PM Foot X-Ray 06/11/24 09:40 XR foot LT 2V CLINICAL HISTORY: Concern for osteo in head of the fifth metatarsal COMPARISON: CTA with runoff June 10, 2024. FINDINGS: There is hallux valgus. 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 There are no fractures within the left foot. No bony erosion is identified. Dorsal soft tissue swelling is present. There is chronic deformity of the left second toe. IMPRESSION: 1. No evidence for acute osteomyelitis within the left foot. 2. Dorsal foot soft tissue swelling. ACT 112: Negative or not required by law. Electronically signed by: Jong Nascimento M.D. 06/11/2024 12:06 PM Foot X-Ray 06/11/24 09:40 XR foot RT 2V CLINICAL HISTORY: Concern for osteo in head of the fifth metatarsal COMPARISON: Right foot radiographs May 18, 2024. CTA with runoff June 10, 2024. FINDINGS: Extensive dorsal soft tissue swelling of the right foot is present. There is extensive vascular calcification. Plantar calcaneal spur is present. Tarsometatarsal joints are intact. There are no fractures within the right foot. There is no bony erosion to suggest acute osteomyelitis. IMPRESSION: 1. No evidence for acute osteomyelitis within the right foot. 2. Extensive dorsal soft tissue swelling. ACT 112: Negative or not required by law. Electronically signed by: Jong Nascimento M.D. 06/11/2024 11:51 AM Medications Administered Home Medications Medication Instructions Recorded Confirmed Last Taken aspirin 81 mg tablet,delayed 81 mg PO QAM 08/07/22 06/10/24 11/05/23 release (Adult Low Dose Aspirin) twspjxmv-tlsyild-lznd-lutein tablet 1 tab PO QAM 08/07/22 06/10/24 11/05/23 cyanocobalamin (vitamin B-12) 500 1,000 mcg (2 x 500 mcg) PO QAM #30 01/18/23 06/10/24 11/05/23 mcg tablet tabs thiamine HCl (vitamin B1) 100 mg 100 mg PO QAM 02/05/23 06/10/24 11/05/23 tablet duloxetine 60 mg capsule,delayed 60 mg PO QAM #90 caps 10/29/23 06/10/24 11/05/23 release rivaroxaban 20 mg tablet (Xarelto) 20 mg PO DAILY 11/19/23 06/10/24 12/14/23 10:00 sennosides 8.6 mg tablet 8.6 mg PO BID 12/15/23 06/10/24 Unknown cholecalciferol (vitamin D3) 10 20 mcg PO DAILY 01/21/24 06/10/24 Unknown mcg (400 unit) tablet mirtazapine 30 mg tablet 30 mg PO HS 01/21/24 06/10/24 Unknown nitroglycerin 0.4 mg sublingual 0.4 mg sublingual DIRECTED PRN 01/21/24 06/10/24 Unknown tablet chest pin pravastatin 40 mg tablet 40 mg PO HS 01/21/24 06/10/24 Unknown vitamin E 268 mg (400 unit) capsule 268 mg PO DAILY ##0 01/21/24 06/10/24 Unknown acetaminophen 325 mg tablet 975 mg PO Q8H PRN mild pain,fever, 01/26/24 06/10/24 Unknown or headache omega 1-jua-qxy-fish oil 900 1 cap PO DAILY 02/01/24 06/10/24 Unknown mg-1,400 mg capsule,delayed release doxycycline hyclate 100 mg capsule 100 mg PO BID 03/29/24 06/10/24 Unknown latanoprost 0.005 % eye drops 1 drp OPB QPM 03/29/24 06/10/24 Unknown nystatin 100,000 unit/gram topical 1 applic topical DAILY 03/29/24 06/10/24 Unknown powder vitamin B comp and C no.3 15 mg-10 1 cap PO DAILY 03/29/24 06/10/24 Unknown mg-50 mg-5 mg-300 mg capsule (B Complex Plus Vitamin C) diphenhydramine HCl 25 mg capsule 25 mg PO Q6H PRN itching #10 caps 04/07/24 06/10/24 Unknown (Benadryl) metoprolol succinate 25 mg 25 mg PO QAM #30 tabs 04/07/24 06/10/24 Unknown tablet,extended release 24 hr empagliflozin 10 mg tablet 10 mg PO DAILY #90 tabs 05/11/24 06/10/24 Unknown (Jardiance) ferrous sulfate 325 mg (65 mg 325 mg PO DAILY #90 tabs 05/11/24 06/10/24 Unknown iron) tablet sacubitril 24 mg-valsartan 26 mg 1 tab PO BID #180 tabs 05/11/24 06/10/24 Unknown tablet (Entresto) tamsulosin 0.4 mg capsule 0.4 mg PO DAILY #90 caps 05/11/24 06/10/24 Unknown gabapentin 600 mg tablet 600 mg PO TID neuropathy from 05/12/24 06/10/24 Unknown severe PVD wounds 1 month #90 tabs oxycodone 5 mg tablet See Rx Instructions PO Q6H PRN 05/12/24 06/10/24 Unknown pain 1 month #100 tabs arginine 7 gram-glutamine 7 1 ea PO BID 05/18/24 06/10/24 Unknown gram-calcium HMB 1.5 gram oral powder pack (Dom) folic acid 1 mg tablet 1 mg PO DAILY 05/18/24 06/10/24 Unknown melatonin 3 mg tablet 6 mg PO HS 05/18/24 06/10/24 Unknown omeprazole 20 mg tablet,delayed 20 mg PO DAILY 05/18/24 06/10/24 Unknown release amiodarone 200 mg tablet 400 mg (2 x 200 mg) PO BIDM 30 05/20/24 06/10/24 Unknown days #120 tabs bumetanide 0.5 mg tablet 0.5 mg PO DAILY 05/27/24 06/10/24 Unknown Active Medications Generic Name Dose Route Start Last Admin Trade Name Freq PRN Reason Stop Dose Admin Acetaminophen 1,000 mg 06/11/24 20:00 06/13/24 05:09 Acetaminophen 500 Mg Tab PO 07/11/24 19:59 1,000 mg Q8H ELDER Administration Amiodarone HCl 400 mg 06/10/24 17:30 06/13/24 08:27 Amiodarone 200 Mg Tab PO 07/10/24 17:29 400 mg BIDM ELDER Administration Aspirin 81 mg 06/11/24 09:00 06/13/24 08:26 Aspirin 81 Mg Ectab PO 07/11/24 08:59 81 mg QAM ELDER Administration Bumetanide 0.5 mg 06/11/24 09:00 06/13/24 08:25 Bumetanide 1 Mg Tab PO 07/11/24 08:59 0.5 mg DAILY ELDER Administration Duloxetine HCl 60 mg 06/11/24 09:00 06/13/24 08:25 Duloxetine Hcl 60 Mg Cap PO 07/11/24 08:59 60 mg QAM ELDER Administration Empagliflozin 10 mg 06/11/24 09:00 06/13/24 08:25 Empagliflozin 10 Mg Tab PO 07/11/24 08:59 10 mg DAILY ELDER Administration Gabapentin 600 mg 06/10/24 21:00 06/13/24 08:25 Gabapentin 600 Mg Tab PO 07/10/24 20:59 600 mg TID ELDER Administration Daptomycin 375 mg/ Syringe 7.5 mls @ 3.75 mls/min 06/11/24 13:00 06/12/24 12:02 IV 06/18/24 12:59 3.75 mls/min Q24H ELDER Administration Protocol Ertapenem 1,000 mg in 10 mls @ 2 mls/min 06/11/24 13:00 06/12/24 12:02 Invanz 1000mg IV 06/18/24 12:59 2 mls/min Q24H ELDER Administration Latanoprost 1 drops 06/11/24 21:00 06/12/24 20:43 Latanoprost 0.005% Op Soln 2.5 Ml Btl OPB 07/11/24 20:59 1 drops QPM ELDER Administration Melatonin 6 mg 06/10/24 21:00 06/12/24 20:42 Melatonin 3 Mg Tab PO 07/10/24 20:59 6 mg HS ELDER Administration Metoprolol Succinate 25 mg 06/11/24 09:00 06/13/24 08:26 Metoprolol Succ 25mg Ext Rel Tab PO 07/11/24 08:59 25 mg QAM ELDER Administration Mirtazapine 30 mg 06/10/24 21:00 06/12/24 20:42 Mirtazapine Tab 15 Mg Tab PO 07/10/24 20:59 30 mg HS ELDER Administration Nystatin 1 appln 06/11/24 09:00 06/13/24 08:27 Nystatin Powder 15gm Btl EXT 07/11/24 08:59 1 appln DAILY ELDER Administration Oxycodone HCl 5 mg 06/11/24 16:44 06/13/24 08:24 Oxycodone Hcl Ir 5 Mg Tab (Immediate Release) PO 06/24/24 17:07 5 mg Q6H PRN Administration Severe Pain (Scale 7, 8, 9,10) Pantoprazole Sodium 40 mg 06/11/24 09:00 06/13/24 08:25 Pantoprazole 40 Mg Tab PO 07/11/24 08:59 40 mg DAILY ELDER Administration Rivaroxaban 20 mg 06/11/24 09:00 06/13/24 08:26 Rivaroxaban 20 Mg Tab PO 07/11/24 08:59 20 mg DAILY ELDER Administration Sacubitril/Valsartan 1 tab 06/10/24 21:00 06/13/24 08:24 Valsartan/Sacubitril 26/24mg Tab PO 07/10/24 20:59 1 tab BID ELDER Administration Sennosides 8.6 mg 06/10/24 21:00 06/13/24 08:26 Senna 8.6 Mg Tab PO 07/10/24 20:59 8.6 mg BID ELDER Administration Tamsulosin HCl 0.4 mg 06/11/24 09:00 06/13/24 08:26 Tamsulosin Hcl 0.4 Mg Cap PO 07/11/24 08:59 0.4 mg DAILY ELDER Administration Thiamine HCl 100 mg 06/11/24 09:00 06/13/24 08:25 Thiamine Hcl 100 Mg Tab PO 07/11/24 08:59 100 mg QAM ELDER Administration
--- NOTE | 2024-06-13 17:02 | Hospitalist Progress Note ---
Date of Service June 13, 2024 Assessment & Plan (1) Recurrent cellulitis of lower extremity: Plan: 78yo male with PMHx of MRSA infection (on doxycycline ppx), prosthetic right knee infection, CAD, CHF, sepsis, rhabdomyolysis, NSTEMI, atrial fibrillation (on Xarelto), chronic venous stasis, peripheral neuropathy, and cellulitis. He has recurrent lower extremity cellulitis infections bilaterally with multiple hospitalizations from this. He presented on 06/10/24 at the behest of the wound care clinic for acute onset of lower extremity pain/swelling over 24 hours. On admission, patient was somnolent which daughter reports tends to happen to him prior to episodes of bacteremia. -Recent [place] admission 05/26 - 05/29 for cellulitis and positive MRSA and Proteus mirabilis ESBL wound culture at that time -Blood cultures: negative x 48 hours -Infectious disease consulted, recommended bilateral foot MRIs to further evaluate for acute osteomyelitis. Bilateral foot x-rays from 06/12 were negative for acute osteo. MRIs have been ordered, but unfortunately not yet completed. Duration of treatment will depend on results of MRIs -Continue ertapenem 1000 mg IV Q24H, daptomycin 375 mg IV Q24H; hold statin while on Dapto. Antibiotic selection based on wound culture from 06/02/24 -Pain regimen: Scheduled Tylenol 1000 mg Q8H, gabapentin 600 mg TID, oxycodone 5 mg Q6H PRN for breakthrough/severe pain -CTA with runoff revealed bilateral extensive atherosclerosis of the infrapopliteal arteries with no significant contrast material noted in tibial arteries or peroneal arteries below mid tibiafibula level -Weak pedal pulses bilaterally; if pulses cannot be felt, use Doppler -Consider vascular surgery referral on discharge (2) Lethargy: Plan: Notable lethargy at time of admission, now resolved and patient is awake, A&O x3 (3) Atrial fibrillation: Plan: Rate controlled Continue Xarelto and amiodarone (4) Pressure ulcer of foot, stage 3: Plan: Daily wound care Wound care nurse consult appreciated, follow recommendations from [facility] (5) Chronic diastolic heart failure: Plan: Continue metoprolol, Entresto, Bumex, and Jardiance (6) History of infection of total joint prosthesis of knee: Plan: Per last ID note, okay to continue doxycycline upon discharge for this specific joint infection Plan Discussed case with infectious disease Ordered bilateral foot MRIs Reviewed telemetry and downgraded off tele VTE PPx: Elliot CODE STATUS: Full code Dispo: Continue IV antibiotics, awaiting bilateral foot MRIs to determine length of treatment, ID following Of note, CTA incidentally noted cystic lesion in the mid body of the pancreas measuring 2.0 cm, which may represent an IPMN. Follow/monitor as indicated outpatient. Admission and Anticipated Discharge Date Admission Date: June 10, 2024 Subjective Patient seen and evaluated in bedside chair. He reports that he has not had any sharp pains in his feet today. He states there is no change in his degree of weakness. We discussed the recommendations from ID, including getting bilateral feet MRIs to evaluate for acute osteomyelitis and that duration of treatment will be based on if he has osteo or not. He confirms that he would be able to do IV antibiotics at home. He denies any other complaints or concerns at this time. Physical Exam Physical Exam: General: No acute distress, nondiaphoretic, well-developed, well-nourished. Cardiac: Regular rate and rhythm without murmurs gallops or rubs. Pulm: Diminished at bases but otherwise clear to auscultation bilaterally without wheezes, rales or rhonchi. No respiratory distress. 95% on room air. Abdominal: Soft, nontender, nondistended. Bowel sounds present. Neuro: A&O x3. No focal neurological deficits. Extremities: Bilateral lower extremities with multiple ulcerations and superficial wounds in various stages of healing covered with optifoams. Erythema extends from toes to midfoot bilaterally. 1+ pitting edema extending to knees bilaterally. Bilateral feet/toes tender to touch. Weak pedal pulses bilaterally. Results & Data Results & Data Vital Signs (Past 12 Hours) Vital Signs Temp Pulse Pulse Resp BP Pulse Ox O2 Del Method 06/13/24 15:38 99.1 F 83 16 97/65 L 95 Room Air 06/13/24 13:11 112/74 06/13/24 13:01 80 06/13/24 11:56 98.8 F 67 16 88/55 L 94 Room Air 06/13/24 10:30 Room Air 06/13/24 08:03 97.3 F L 65 12 177/86 H 90 Room Air 06/13/24 07:00 77 Laboratory Results Reviewed CBC Reviewed BMP Reviewed blood cultures Diagnostic Findings Reviewed telemetry PG Care Time/CCT Total # of Minutes Spent Total Time Spent with Patient: Total time spent is greater than 50% in coordination of care (as documented) at patient's floor/unit and/or counseling patient: Coding Level of Care Code 33039 SUB INP/OBS CARE 3/50MIN Diagnoses Recurrent cellulitis of lower extremity L03.119 Lethargy R53.83 Atrial fibrillation I48.91 Pressure injury of right foot, stage 3 L89.893 Laterality: right Chronic diastolic heart failure I50.32 History of infection of total joint prosthesis of knee Z87.39 (4) Pressure ulcer of foot, stage 3 Laterality: right Qualified Code(s): L89.893 - Pressure ulcer of other site, stage 3
[2024-06-14] MEDS: GADOBUTROL 65ML VIAL IV ONE (00:44)
--- NOTE | 2024-06-14 02:48 | Magnetic Resonance Report ---
EXAM: MR foot LT wo/w con CLINICAL HISTORY: MRSA cellulitis both feet. bilateral feet burning sensation. open wounds. injected 10cc gadavist through existing iv rt arm uneventful at 0040 on 06/14/24 room 258-1. xray bilateral feet done on 06/11/24. images 367 TECHNIQUE: Multiplanar, multisequence MR imaging of the left foot was performed with and without gadolinium. COMPARISON: None. FINDINGS: Significant subcutaneous soft tissue edema, fat stranding and fluid collection is noted involving the foot, predominantly along the dorsal aspect. Findings suggestive of cellulitis. Edema is also noted involving all the visualized muscles of the foot. Findings suggestive of myositis, likely infective. Minimal fluid is noted in the intermuscular planes as well. Hallux valgus is noted. Osteoarthritic changes are noted at the level of first metatarsophalangeal joint. No obvious marrow edema is noted to suggest underlying osteomyelitis. Mild dorsal subluxation of the proximal phalanx is noted at the level of second metatarsophalangeal joint. Bone marrow signal is within normal limits without bone contusion, fracture or AVN. The visualized flexor and extensor tendons are intact. The Lisfranc ligament is intact. The plantar fascia is intact with no evidence of plantar plate injury. There is no evidence of Mark's neuroma. IMPRESSION: 1. Significant subcutaneous soft tissue edema, fat stranding and fluid collection is noted involving the foot, predominantly along the dorsal aspect. Findings suggestive of cellulitis. 2. Edema is also noted involving all the visualized muscles of the foot. Findings suggestive of myositis, likely infective. Minimal fluid is noted in the intermuscular planes as well. 3. Hallux valgus is noted. Mild osteoarthritic changes are noted at the level of first metatarsophalangeal joint. 4. No obvious marrow edema is noted to suggest underlying osteomyelitis. 5. Mild dorsal subluxation of the proximal phalanx is noted at the level of second metatarsophalangeal joint. Electronically signed by Rupert Mitchell 06-14-2024 02:48 AM
--- NOTE | 2024-06-14 03:00 | Magnetic Resonance Report ---
EXAM: MR foot RT wo/w con CLINICAL HISTORY: MRSA cellulitis both feet. bilateral feet burning sensation. open wounds. injected 10cc gadavist through existing iv rt arm uneventful at 0040 on 06/14/24 room 258-1. xray bilateral feet done on 06/11/24. 416 images TECHNIQUE: Multiplanar, multisequence MR imaging of the right foot was performed with and without gadolinium. COMPARISON: None. FINDINGS: Significant subcutaneous soft tissue edema, fat stranding and fluid collection is noted involving the foot, predominantly along the dorsal aspect. Findings suggestive of cellulitis. Edema is also noted involving all the visualized muscles of the foot. Findings suggestive of myositis, likely infective. Minimal fluid is noted in the intermuscular planes as well. No obvious marrow edema is noted to suggest underlying osteomyelitis. Bone marrow signal is within normal limits without bone contusion, fracture or AVN. The visualized flexor and extensor tendons are intact. The Lisfranc ligament is intact. The plantar fascia is intact with no evidence of plantar plate injury. There is no evidence of Mark's neuroma. IMPRESSION: 1. Significant subcutaneous soft tissue edema, fat stranding and fluid collection is noted involving the foot, predominantly along the dorsal aspect. Findings suggestive of cellulitis. 2. Edema is also noted involving all the visualized muscles of the foot. Findings suggestive of myositis, likely infective. Minimal fluid is noted in the intermuscular planes as well. 3. No obvious marrow edema is noted to suggest underlying osteomyelitis. Electronically signed by Rupert Mitchell 06-14-2024 03:00 AM
[2024-06-14 06:38] LABS: Hematocrit (blood only) 38.9 % (42.0-52.0); Hemoglobin 12.8 g/dl (14.0-18.0); Mean Corpuscular Hemoglobin 31.1 pg (25.0-34.0); Mean Corpuscular Hgb Conc 32.9 g/dL (32.0-36.0); Mean Corpuscular Volume 94.4 fL (80.0-100.0); Mean Platelet Volume 9.2 fL (9.4-12.4); Platelet Count 181 K/uL (130-400); RDW Coefficient of Variation 18.3 % (11.5-14.5); RDW Standard Deviation 63.1 fL (36.4-46.3); Red Blood Count 4.12 M/uL (4.70-6.10)
--- NOTE | 2024-06-14 08:56 | Hospitalist Progress Note ---
Date of Service June 14, 2024 Assessment & Plan (1) Recurrent cellulitis of lower extremity: Plan: 78yo male with PMHx of MRSA infection (on doxycycline ppx), prosthetic right knee infection, CAD, CHF, sepsis, rhabdomyolysis, NSTEMI, atrial fibrillation (on Xarelto), chronic venous stasis, peripheral neuropathy, and cellulitis. He has recurrent lower extremity cellulitis infections bilaterally with multiple hospitalizations from this. He presented on 06/10/24 at the behest of the wound care clinic for acute onset of lower extremity pain/swelling over 24 hours. On admission, patient was somnolent which daughter reports tends to happen to him prior to episodes of bacteremia. Recent [place] admission 05/26 - 05/29 for cellulitis and positive MRSA and Proteus mirabilis ESBL wound culture at that time Blood cultures NGTD x 5 days, final ID consulted MRI b/l foot ordered to eval acute osteomyelitis (Xrays from 06/12 negative for such). MRI not appearing w/ acute osteo, does mention myositis Podiatry consulted to weigh in, also concerns for need for possible amputation in future ([place] NOT thrilled about possibility of such) --> CRP/ESR added and NOT elevated, argues against acute osteo --> Recs to continue abx, wound care. Possible AKA in the future. --> Did have arterial study in February, will repeat given concerns for poor wound healing/possible vascular referral at discharge does not need done acutely --> Will need continued wound care/podiatry follow up at pr Discussed with ID, see note. Given ESBL, treatment with IV ANTIBIOTICS over PO. Also need more info on prior MRSA from his [facility] which could have some resistance but suspected sensitive to Doxy per prior admissions. --> Remains on Dapto, Ertapenem, plan for 10 day course. [place] need [place] [facility] [place] CM can arrange closer to pr Statin HELD (should be held w/ myositis as well) Pain control: tylenol, gabapentin (reports having had this increased recently), Oxycodone prn breakthrough Bowel regimen: miralax daily, added colace BID PT/OT consulted 06/13, from [facility]. Bill reports ability to do IV abx at [facility] in his independent living but will await final therapy evals given CM reporting [facility] with concerns for repeat hospitalization over past 6 months. Pending evals and ability to dc back to independent living, will req IV placement for ongoing abx. Likely vascular ref at pr (2) Lethargy: Plan: Notable lethargy at time of admission, now resolved and patient is awake, A&O x3 He is depressed from his repeat hospitalizations. Already on increased dose cymbalta. Support provided. (3) Atrial fibrillation: Plan: Rate controlled Continue Xarelto and amiodarone (4) Pressure ulcer of foot, stage 3: Plan: Daily wound care Wound care nurse consult appreciated, follow recommendations from [facility] (5) Chronic diastolic heart failure: Plan: Continue metoprolol, Entresto, Bumex, and Jardiance Volume status appears acceptable, weights in system appear stable Does have MILD leg edema, suspected 2nd to cellulitis but can consider additional dose bumex if needed (6) History of infection of total joint prosthesis of knee: Plan: Per last ID note, okay to continue doxycycline upon discharge for this specific joint infection however as above, discussed with ID and if no longer sensitive may benefit from suppressive therapy with Bactrim Plan DVT proph: Xarelto continued Dispo: continued inpatient stay on IV abx. Podiatry consult placed, discussed plan with ID and plan for IV ABX (10 day course) given ESBL over PO. Arterial duplex ordered given poor wound healing but unlikely to have changed much since February. Likely benefit from vascular ref at pr pending imaging results. PT/OT consulted as from [facility] to see if able to return but per CM appears may need short course IPR. Of note, CTA incidentally noted cystic lesion in the mid body of the pancreas measuring 2.0 cm, which may represent an IPMN. Follow/monitor as indicated outpatient. Admission and Anticipated Discharge Date Admission Date: June 10, 2024 Supervising Physician Co-Signing Physician Notes The patient was not seen by me. The chart was reviewed. Case discussed with ISREAL Monten[place]ro. Agree with assessment and plan Subjective Eval around lunch, quiet. Discussed depressed affect, tired of repeat hospitalizations. Does report stable pain control, recent increase in his gabapentin for pain. Discussed cymbalta if not on could be helpful for pain as well as mood and will review. Discussed podiatry consult placed to weigh in but no definitive evidence for osteo but concerns w/ lateral wound probe to bone and will await podiatry input. Patient would prefer not having amputation and prefer ongoing IV abx and could be done at home per patient report but will see what recommended plan by podiatry/touch base w/ ID and see if reasonable. No CP/SOB, nausea/vomiting/abdominal pain reported. Questions/concerns addressed at this time. Physical Exam 2 Physical Exam: General: 78 male sitting up in bed, depressed appearing/tired of being in the hospital, NAD HEENT: head atraumatic, normocephalic, mmm, trachea midline Resp: even/unlabored, slightly diminished at the bases but no obvious wheezing/rales, 94% on RA CV: RRR, systolic murmur, trace pedal edema to knees, pulses present GI: +BS, soft/slight distension, nontender no song MSK/Neuro/Skin: multiple ulcerations/superficial wounds to bilateral legs, optifoams in place, no overt drainage, erythema appears to be improving, decreased tenderness, pulses present but weak bilaterally, ?2nd to edema Psych: Alert/oriented x 3, cooperative but depressed at times, support provided Results & Data Results & Data Vital Signs (Past 12 Hours) Vital Signs Temp Pulse Pulse Resp BP BP Pulse Ox 06/14/24 08:27 36.7 C 61 16 110/72 93 06/14/24 07:45 06/14/24 03:31 36.6 C 65 16 126/78 92 06/14/24 01:01 68 06/13/24 22:39 36.9 C 73 18 124/76 96 O2 Del Method 06/14/24 08:27 Room Air 06/14/24 07:45 Room Air 06/14/24 03:31 Room Air 06/14/24 01:01 06/13/24 22:39 Room Air Laboratory Results 06/14/24 06:11 06/13/24 05:52 ESR 10 CRP <0.50 Diagnostic Findings Foot MRI 06/13/24 10:56 EXAM: MR foot LT wo/w con CLINICAL HISTORY: MRSA cellulitis both feet. bilateral feet burning sensation. open wounds. injected 10cc gadavist through existing iv rt arm uneventful at 0040 on 06/14/24 room 258-1. xray bilateral feet done on 06/11/24. images 367 TECHNIQUE: Multiplanar, multisequence MR imaging of the left foot was performed with and without gadolinium. COMPARISON: None. FINDINGS: Significant subcutaneous soft tissue edema, fat stranding and fluid collection is noted involving the foot, predominantly along the dorsal aspect. Findings suggestive of cellulitis. Edema is also noted involving all the visualized muscles of the foot. Findings suggestive of myositis, likely infective. Minimal fluid is noted in the intermuscular planes as well. Hallux valgus is noted. Osteoarthritic changes are noted at the level of first metatarsophalangeal joint. No obvious marrow edema is noted to suggest underlying osteomyelitis. Mild dorsal subluxation of the proximal phalanx is noted at the level of second metatarsophalangeal joint. Bone marrow signal is within normal limits without bone contusion, fracture or AVN. The visualized flexor and extensor tendons are intact. The Lisfranc ligament is intact. The plantar fascia is intact with no evidence of plantar plate injury. There is no evidence of Mark's neuroma. IMPRESSION: 1. Significant subcutaneous soft tissue edema, fat stranding and fluid collection is noted involving the foot, predominantly along the dorsal aspect. Findings suggestive of cellulitis. 2. Edema is also noted involving all the visualized muscles of the foot. Findings suggestive of myositis, likely infective. Minimal fluid is noted in the intermuscular planes as well. 3. Hallux valgus is noted. Mild osteoarthritic changes are noted at the level of first metatarsophalangeal joint. 4. No obvious marrow edema is noted to suggest underlying osteomyelitis. 5. Mild dorsal subluxation of the proximal phalanx is noted at the level of second metatarsophalangeal joint. Electronically signed by Rupert Mitchell 06-14-2024 02:48 AM Foot MRI 06/13/24 10:56 EXAM: MR foot RT wo/w con CLINICAL HISTORY: MRSA cellulitis both feet. bilateral feet burning sensation. open wounds. injected 10cc gadavist through existing iv rt arm uneventful at 0040 on 06/14/24 room 258-1. xray bilateral feet done on 06/11/24. 416 images TECHNIQUE: Multiplanar, multisequence MR imaging of the right foot was performed with and without gadolinium. COMPARISON: None. FINDINGS: Significant subcutaneous soft tissue edema, fat stranding and fluid collection is noted involving the foot, predominantly along the dorsal aspect. Findings suggestive of cellulitis. Edema is also noted involving all the visualized muscles of the foot. Findings suggestive of myositis, likely infective. Minimal fluid is noted in the intermuscular planes as well. No obvious marrow edema is noted to suggest underlying osteomyelitis. Bone marrow signal is within normal limits without bone contusion, fracture or AVN. The visualized flexor and extensor tendons are intact. The Lisfranc ligament is intact. The plantar fascia is intact with no evidence of plantar plate injury. There is no evidence of Mark's neuroma. IMPRESSION: 1. Significant subcutaneous soft tissue edema, fat stranding and fluid collection is noted involving the foot, predominantly along the dorsal aspect. Findings suggestive of cellulitis. 2. Edema is also noted involving all the visualized muscles of the foot. Findings suggestive of myositis, likely infective. Minimal fluid is noted in the intermuscular planes as well. 3. No obvious marrow edema is noted to suggest underlying osteomyelitis. Electronically signed by Rupert Mitchell 06-14-2024 03:00 AM PG Care Time/CCT Total # of Minutes Spent Total Time Spent with Patient: Total time spent is greater than 50% in coordination of care (as documented) at patient's floor/unit and/or counseling patient: Coding Level of Care Code 13929 SUB INP/OBS CARE 3/50MIN Diagnoses Recurrent cellulitis of lower extremity L03.119 Lethargy R53.83 Atrial fibrillation I48.91 Pressure injury of right foot, stage 3 L89.893 Laterality: right Chronic diastolic heart failure I50.32 History of infection of total joint prosthesis of knee Z87.39 (4) Pressure ulcer of foot, stage 3 Laterality: right Qualified Code(s): L89.893 - Pressure ulcer of other site, stage 3
--- NOTE | 2024-06-14 10:19 | Podiatry Consultation ---
Date of Consultation June 14, 2024 Assessment & Plan (1) Pressure ulcer of right foot, stage 3: (2) Ischemic ulcer of right foot: Awaiting repeat duplex arterial ultrasound for comparison to CTA and a previous ultrasound Non-pressure ulcer stage: limited to breakdown of skin Qualified Code(s): L97.511 - Non-pressure chronic ulcer of other part of right foot limited to breakdown of skin (3) Ischemic ulcer of left foot: Awaiting repeat duplex arterial ultrasound for comparison to CTA and previous ultrasound Non-pressure ulcer stage: limited to breakdown of skin Qualified Code(s): L97.521 - Non-pressure chronic ulcer of other part of left foot limited to breakdown of skin Plan Bilateral foot wounds evaluated cleansed and redressed. Stage III pressure ulcer to right lateral foot is probing to subcutaneous tissue and possibly the peroneal tendon insertion at the base of the fifth metatarsal with no frankly exposed bone at this time. MRI and x-ray results of the right foot reviewed with no radiographic findings to suggest underlying osteomyelitis. Repeat ESR and CRP within normal limits. No plan for surgical intervention at this time. -Bilateral lower extremity duplex arterial ultrasound being ordered to compare to results from recent study in February along with recent CTA . -Elevate right foot off the mattress with focus on removing contact to the lateral foot with 2 pillows behind the posterior ankle/calf at all times while at rest. Keep bilateral lower extremity elevated while at rest. Avoid extended periods of time with feet in dependent position. -Bilateral foot wounds: Continue once daily dressing changes as outlined by wound care nurse Janette on 06/13/2024: Wound care discharge instructions placed. "To left and right toe wounds clean with saline. Apply strips of Aquacel Ag between toes, over wounds. Cover with gauze and secure with Kerlix. Change every day and as needed." -Okay to continue weightbearing as tolerated in postop shoes -No plan for surgical intervention at this time. Patient's case discussed with his nursing and hospitalist team. Will continue to monitor patient's progress while he remains in house and recommend he continue follow-up with the wound care center at time of discharge. Thank you for consulting podiatry to aid in the care of this patient. History of Present Illness Reason for Consultation: Bilateral foot wounds with associated cellulitis. Concern for possible osteomyelitis of the fifth metatarsal base right foot. Attending Physician: Arnoldo Yarbrough MD History of Present Illness 78-year-old male with past medical history significant for CAD, CHF, NSTEMI, atrial fibrillation, chronic venous stasis. History of chronic bilateral lower extremity ulcerations with recurrent infection. Patient is on chronic suppressive antibiotic therapy with doxycycline for MRSA, history of prosthetic right knee infection. Recent hospitalization at [facility] from 05/26 to 05/29/2020 for the treatment of lower extremity cellulitis with positive MRSA culture. Patient was discharged on p.o. Bactrim for 7-day course which she completed and has continued to use p.o. doxycycline. Patient return to [facility] emergency department on 06/10/2023 with concern for increased pain swelling and discoloration of the bilateral lower extremity. Patient reports a significant increase in pain in the right foot associated with swelling of the right foot and leg which had increased significantly over the 24 hours prior to admission. He reports pain in the bilateral lower extremity at baseline while sleeping however this pain had significantly increased the day prior to admission. Patient reports spending the majority of his time sitting in his wheelchair at home ambulating only minimally for short distance and transfer. He has bilateral postoperative Darco shoes which he received from the wound center to offload wounds of the bilateral foot. MRSA on expressive antibiotic therapy, Admission patient has no leukocytosis's and afebrile. He denies nausea or vomiting but does report malaise. His CRP is slightly elevated. He is initiated on IV ertapenem and daptomycin. CTA is ordered to further evaluate lower extremity perfusion giving apparently unprovoked ulceration to the bilateral lower extremity which are nonhealing despite regular wound care. Podiatry is consulted to evaluate an ulceration of the lateral aspect of the right foot with concern for possible bone exposure. Patient had plain film radiographs and an MRI of the right foot with no radiographic findings of osteomyelitis. Patient was evaluated by wound care nurse with dressing recommendations placed. Allergies Allergy/AdvReac Type Severity Reaction Status Date / Time cat dander Allergy Severe CAT Verified 06/02/24 09:02 HAIR---Swelling of Lip/Tongue/Throat Home Medications Medication Instructions Recorded Confirmed Type aspirin 81 mg tablet,delayed 81 mg PO QAM 08/07/22 06/10/24 History release (Adult Low Dose Aspirin) vqnpucfl-ixtvbba-rdvv-lutein tablet 1 tab PO QAM 08/07/22 06/10/24 History cyanocobalamin (vitamin B-12) 500 1,000 mcg (2 x 500 mcg) PO QAM #30 01/18/23 06/10/24 Rx mcg tablet tabs thiamine HCl (vitamin B1) 100 mg 100 mg PO QAM 02/05/23 06/10/24 History tablet duloxetine 60 mg capsule,delayed 60 mg PO QAM #90 caps 10/29/23 06/10/24 Rx release rivaroxaban 20 mg tablet (Xarelto) 20 mg PO DAILY 11/19/23 06/10/24 History sennosides 8.6 mg tablet 8.6 mg PO BID 12/15/23 06/10/24 History cholecalciferol (vitamin D3) 10 20 mcg PO DAILY 01/21/24 06/10/24 History mcg (400 unit) tablet mirtazapine 30 mg tablet 30 mg PO HS 01/21/24 06/10/24 History nitroglycerin 0.4 mg sublingual 0.4 mg sublingual DIRECTED PRN 01/21/24 06/10/24 History tablet chest pin pravastatin 40 mg tablet 40 mg PO HS 01/21/24 06/10/24 History vitamin E 268 mg (400 unit) capsule 268 mg PO DAILY ##0 01/21/24 06/10/24 History acetaminophen 325 mg tablet 975 mg PO Q8H PRN mild pain,fever, 01/26/24 06/10/24 History or headache omega 8-wis-soq-fish oil 900 1 cap PO DAILY 02/01/24 06/10/24 History mg-1,400 mg capsule,delayed release doxycycline hyclate 100 mg capsule 100 mg PO BID 03/29/24 06/10/24 History latanoprost 0.005 % eye drops 1 drp OPB QPM 03/29/24 06/10/24 History nystatin 100,000 unit/gram topical 1 applic topical DAILY 03/29/24 06/10/24 History powder vitamin B comp and C no.3 15 mg-10 1 cap PO DAILY 03/29/24 06/10/24 History mg-50 mg-5 mg-300 mg capsule (B Complex Plus Vitamin C) diphenhydramine HCl 25 mg capsule 25 mg PO Q6H PRN itching #10 caps 04/07/24 06/10/24 Rx (Benadryl) metoprolol succinate 25 mg 25 mg PO QAM #30 tabs 04/07/24 06/10/24 Rx tablet,extended release 24 hr empagliflozin 10 mg tablet 10 mg PO DAILY #90 tabs 05/11/24 06/10/24 Rx (Jardiance) ferrous sulfate 325 mg (65 mg 325 mg PO DAILY #90 tabs 05/11/24 06/10/24 Rx iron) tablet sacubitril 24 mg-valsartan 26 mg 1 tab PO BID #180 tabs 05/11/24 06/10/24 Rx tablet (Entresto) tamsulosin 0.4 mg capsule 0.4 mg PO DAILY #90 caps 05/11/24 06/10/24 Rx gabapentin 600 mg tablet 600 mg PO TID neuropathy from 05/12/24 06/10/24 Rx severe PVD wounds 1 month #90 tabs oxycodone 5 mg tablet See Rx Instructions PO Q6H PRN 05/12/24 06/10/24 Rx pain 1 month #100 tabs arginine 7 gram-glutamine 7 1 ea PO BID 05/18/24 06/10/24 History gram-calcium HMB 1.5 gram oral powder pack (Dmo) folic acid 1 mg tablet 1 mg PO DAILY 05/18/24 06/10/24 History melatonin 3 mg tablet 6 mg PO HS 05/18/24 06/10/24 History omeprazole 20 mg tablet,delayed 20 mg PO DAILY 05/18/24 06/10/24 History release amiodarone 200 mg tablet 400 mg (2 x 200 mg) PO BIDM 30 05/20/24 06/10/24 Rx days #120 tabs bumetanide 0.5 mg tablet 0.5 mg PO DAILY 05/27/24 06/10/24 History Patient History Medical History Open wound of left lower extremity Sepsis secondary to UTI Fever Sepsis due to skin infection Sepsis Fall Infected hardware in right leg Chronic infection of right knee UTI (urinary tract infection) Severe sepsis Venous ulcer of right leg Venous stasis ulcers of both lower extremities Idiopathic polyneuropathy History of immunosuppressive therapy Heart failure with preserved ejection fraction GERD (gastroesophageal reflux disease) Sepsis Septicemia due to Streptococcus pneumoniae Respiratory failure with hypoxia Hypomagnesemia Pneumonia Benign essential hypertension Lumbar stenosis Hx of staphylococcal infection 03/2022, w/"bacterial infection" at the same, in the rt. knee, occurrred during atrial fibrillation episode. "when he woke up, he couldn't walk." Atrial fibrillation episode occurred in 03/2022, taken to [facility] in [place], admitted to ICU for 1-2 weeks (was not intubated, but wasn't "awake either"), then to cardiac unit, then to rehab at [facility]; f/u dr. guerra in [place]>will be starting to see a advertisement distributor at [facility] 2nd week of 08/2022 Myocardial Infarction "a silent one, 2019" Sleep apnea no device Surgical History Status post revision of total replacement of right knee Hx of Achilles tendon repair rt. Hx of knee surgery rt. patellar tendon repair Hx of rotator cuff surgery bilateral Hx of total knee replacement lt. Hx of total hip arthroplasty rt. History of colostomy reversal History of bowel resection for diverticulitis; w/colostomy placement for 3-4 months Hx of hernia repair near former colostomy site History of esophagogastroduodenoscopy (EGD) Hx of colonoscopy Last Colonoscopy 08/14/22, repeat 3 years in 2025 Hx of bilateral cataract extraction History of heart artery stent ~3 years ago, x2 stents, done in [place]; f/u dr guerra, [place]>will be seeing new cardio at [place] 2nd week of August 2022. History of cardiac cath ~3 years ago, SOB and "felt like throat was constricting", had "silent heart attack", x2 stents, done in [place] Family History Grandmother (Maternal) Diabetes Daughter Diabetes Father Suicide Hypertension Denies family history of Ovarian cancer Prostate cancer Myocardial infarction Breast cancer Lung cancer Colorectal cancer Stroke Social History Smoking Status: Never smoker Second Hand Exposure: No; Do You Dip or Chew Tobacco: No; Hx Alcohol Use: Yes Alcohol type: wine Alcohol Intake Frequency: 4 or More x per/Week Hx Substance Use: No Preferred Language: Azeri Communication Ability: Effective Visual Impairment: Limited Hearing Ability: Normal 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 No signs of acute distress present. No signs of acute distress. Patient is awake and alert and asked is a good historian. CV: Extremities: +1 pitting edema to the bilateral foot and ankle. Cyanotic discoloration of bilateral foot and distal leg. Capillary refill time is less than 4-5 seconds all digits of the bilateral foot. Posterior tibial and dorsalis pedis pulses are non-palpable bilateral. Lymph: No palpable or visible regional lymphadenopathy. Skin: No scars, rashes, lesions or ecchymosis. Neuro: Sensation intact to light touch in all areas of the foot and ankle. Psych: Mood/Affect: Mood is normal. Affect is normal. Cognition: Orientation is intact to person, place and time. Focused lower extremity musculoskeletal exam: Ankles: Dressing in place to the bilateral ankle covering venous stasis ulcerations. +1 pitting edema to the bilateral ankle. Feet: Cyanotic discoloration to the bilateral foot with multiple open wounds. See wound exam below. Feet are cool to touch. Loss of hair growth bilateral foot and distal leg. Right lateral foot: Stage II pressure ulcer: Ovoid wound overlying the base of the fifth metatarsal laterally. This appears to be a pressure wound with relatively ischemic appearing borders and mild maceration. Wound bed is mixed subcutaneous fat and probable small area of exposed peroneal tendon overlying the lateral base of the fifth metatarsal. No active drainage. No drainage to dressing. No focal increase in erythema or edema. No frankly exposed bone to the wound bed. I am unable to probe or track in any direction however wound is painful upon probing which limits this evaluation. Medial right second toe: Small well-circumscribed superficial ulceration with granular wound bed. Cyanotic discoloration to all toes of the right foot. Toes are cool to touch. Scant serous drainage to the Aquacel dressing. Right great toe: Ischemic appearing superficial geographic wound with mixed fibrotic and granular wound bed. Concerning for ischemic type wound with mild maceration to the borders and surrounding cyanotic appearance of soft tissue. Surrounding soft tissue is cool to touch. Left great toe: Ischemic superficial geographic ulceration just proximal to the nail plate with mixed fibrotic and granular wound bed. Moderate sanguinous drainage to the Aquacel dressing. Wound does not probe or track in any direction. No frankly exposed bone or subcutaneous tissue. Results & Data Vital Signs (Past 12 Hours) Vital Signs Temp Pulse Pulse Resp BP BP Pulse Ox 06/14/24 08:27 36.7 C 61 16 110/72 93 06/14/24 07:45 06/14/24 03:31 36.6 C 65 16 126/78 92 06/14/24 01:01 68 06/13/24 22:39 36.9 C 73 18 124/76 96 O2 Del Method 06/14/24 08:27 Room Air 06/14/24 07:45 Room Air 06/14/24 03:31 Room Air 06/14/24 01:01 06/13/24 22:39 Room Air Laboratory Results WBC 6.2, CRP 0.58 Diagnostic Findings MRI right foot with and without contrast on 06/14/2024: IMPRESSION: 1. Significant subcutaneous soft tissue edema, fat stranding and fluid collection is noted involving the foot, predominantly along the dorsal aspect. Findings suggestive of cellulitis. 2. Edema is also noted involving all the visualized muscles of the foot. Findings suggestive of myositis, likely infective. Minimal fluid is noted in the intermuscular planes as well. 3. No obvious marrow edema is noted to suggest underlying osteomyelitis. MRI left foot with and without contrast 06/14/2024: IMPRESSION: 1. Significant subcutaneous soft tissue edema, fat stranding and fluid collection is noted involving the foot, predominantly along the dorsal aspect. Findings suggestive of cellulitis. 2. Edema is also noted involving all the visualized muscles of the foot. Findings suggestive of myositis, likely infective. Minimal fluid is noted in the intermuscular planes as well. 3. Hallux valgus is noted. Mild osteoarthritic changes are noted at the level of first metatarsophalangeal joint. 4. No obvious marrow edema is noted to suggest underlying osteomyelitis. 5. Mild dorsal subluxation of the proximal phalanx is noted at the level of second metatarsophalangeal joint. CT angiogram of the abdomen/pelvis aortogram with bilateral lower extremity runoff: 06/10/2024 IMPRESSION: RIGHT LOWER EXTREMITY: Extensive atherosclerosis of the infrapopliteal arteries with no significant contrast material noted in the anterior tibial, posterior tibial as well as peroneal arteries below the mid tibia-fibula level. Patency assessment is also very limited due to extensive calcified atherosclerotic plaques. Occlusive changes may be present. LEFT LOWER EXTREMITY: Extensive atherosclerosis of the infrapopliteal arteries with no significant contrast material noted in the anterior tibial, posterior tibial as well as peroneal arteries below the mid tibia-fibula level. Patency assessment is also very limited due to extensive calcified atherosclerotic plaques. Occlusive changes may be present. If indicated, arterial duplex ultrasound examination of the lower extremities may be obtained. Bilateral lower extremity arterial duplex ultrasound and SINDI 02/22/2024-[facility] Interpretation/findings: Resting ankle/brachial indices and waveform.. Analysis of the bilateral lower extremity reveals: analysis of the bilateral lower extremity reveals: 1. Ttriphasic Doppler waveforms in the bilateral common femoral, distal posterior tibial, distal anterior tibial, plus right distal superficial femoral and left popliteal arteries. Unable to visualize right popliteal artery due to bandage. 2. The right ankle/brachial index is 1.4 (normal) and the left ankle-brachial index is 1.27 (normal). 3. The great toe pressure measured 171 mmHg on the right and 182 mmHg on the left. PG Care Time/CCT Total # of Minutes Spent Total Time Spent with Patient: Total time spent is greater than 50% in coordination of care (as documented) at patient's floor/unit and/or counseling patient:90min [place] [address] IN/OBS CONSULT LVL 4,60M Patient Type New History Detailed Exam Expanded Problem Focused Medical Decision Making Moderate Complexity Diagnoses Pressure ulcer of right foot, stage 3 L89.893 Ischemic ulcer of right foot, limited to breakdown of skin L97.511 Non-pressure ulcer stage: limited to breakdown of skin Ischemic ulcer of left foot, limited to breakdown of skin L97.521 Non-pressure ulcer stage: limited to breakdown of skin
[2024-06-14 13:32] LABS: C Reactive Protein < 0.50 mg/dl (0-0.5)
--- NOTE | 2024-06-14 14:21 | Infectious Disease Progress Nt ---
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 s/p DAIR + vanc x 6wks followed by doxy suppression, right knee PJI 02/2024 at [facility] s/p I+D on 02/19 with cx + Enterobacter cloacae, s/p 6 weeks antibiotics (discharged on cefepime, changed to ertapenem 03/18 due to JEFFERY), ended 04/06 and doxy suppression for prior MRSA, afib, CAD, depression, chronic venous stasis, peripheral neuropathy, chronic low back pain 2/2 spinal stenosis, L knee TKA, B/l rotator cuff surgery, R hip arthroplasty, admission 03/2024 with VRE faecium bacteremia (TTE without vegetations, right knee aspiration neg, PICC removed for ?line infection) s/p daptomycin x 2wks (ended 04/15), chronic LE ulcers ( follows with wound care) admission 05/18-05/20 for aflutter with RVR s/p cardioversion, admission 05/26- 05/28, with bilateral foot pain with cellulitis ( wound cx from right foot on 05/13 + MRSA with resistance to tetracycline)---> received daptomycin inpatient and discharged on 10 days of Bactrim. He presents on 06/10/23 for evaluation of bilateral foot wounds with increased pain and burning. He reported unsteady gait for few days. He completed his course of Bactrim. He restarted doxycycline suppression. He noted some increasing pain and discharge from the right great toe and left great toe wound. He endorsed greater than baseline pain at Right lateral foot wound. He denied fever, chills, sweats. He was seen at wound care on 06/02 and underwent wound debridement. Wound cultures obtained at that time now positive for MRSA and ESBL Proteus). In the ED he is afebrile and hemodynamically stable.. Labs: WBC 7.76, BUN 39, creatinine 1.32. Bilateral foot x-rays without evidence of acute osteomyelitis. Dorsal foot soft tissue swelling demonstrated on the left and extensive dorsal soft tissue swelling on the right. Aorta with runoff CTA shows extensive calcified atherosclerotic plaques making patency evaluation limited bilaterally. Extensive soft tissue edematous changes of the lower left lower extremities with scattered ulcerative defects noted. Irregularities in the heads of the fifth metatarsals bilaterally could represent osteomyelitis or posttraumatic changes. He has been started on ertapenem and daptomycin. ID consulted for cellulitis. His son was on on FaceTime and provides additional history. Patient complains of continued BL lower extremity pain. Microbiology: Blood culture 06/10/2024 NGTD Prior microbiology ( [facility]) : Wound culture 06/02/2024 ESBL Proteus Mirabilis (sensitive to amox, clav cefoxitin, ertapenem, meropenem, Zosyn), MRSA Wound culture 06/02/2024 MRSA (sensitive to daptomycin, linezolid, Bactrim, vancomycin) resistant to tetracycline Wound culture 05/13/2024 MRSA (sensitive to daptomycin, linezolid, Bactrim, vancomycin) resistant to tetracycline Blood cultures 03/30/2024 VRE (E faecium) OSH prior synovial fluid and OR cx not available at [facility]. Antibiotics: Ertapenem /ongoing Daptomycin1/ongoing Doxycycline outpatient suppression-held 06/10 - #BL foot wounds and cellulitis #Possible B/L fifth metatarsal head osteomyelitis vs posttraumatic changes seen on CTA runoff imaging . 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 Discussion: He has recurrent bilateral foot cellulitis in setting of PVD. Bilateral lower extremity cellulitis is rare however in his case he has chronic wounds in different areas of the lower extremity that are superficially infected. Areas of concern are painful and tender. I have additional concern s for osteomyelitis at the right fifth bone as he has a lateral foot ulcer and I am able to probe to bone with the assistance of telepresenter. Most recent wound cultures from foot + ESBL proteus mirabilis and MRSA, both R to doxycycline which he is on for chronic suppression of R knee PJI. 06/14 BL MRI foot completed adn NO evidence of osteomyelitis. ESR 10, crp <0.5. Seen by podiatry, No surgical intervention necessary at this i time Recommendations; No definitive osteomyelitis on MRi. No plans for surgical intervention at this time -Continue daptomycin 4 mg/kg IV daily ( adjusted body weigh) and Ertapenem 1 g iv daily for SSTI for a total of 14 days ( 06/10-06/24/24) for coverage of SSTI. After this, can restart doxycycline suppression for R knee PJI as scheduled until reevaluated by his primary ID provider. I can not rule in or r/o development of MRSA R to doxycycline of th MRSA strain that grew from prior knee OR cx--> less likely as No evidence of progression of knee infection while on doxycycline, so may still be susceptible there. -CPK ordered -Weekly CPK, CBC, BMP, LFT on IV abx -Follow up with his established ID provider on discharge to further discuss doxy vs bactrim for R knee PJI infection suppression. ( Bactrim S to most recent MRSA from foot cxs). -Consider further eval of vasculature ( arterial duplex) -Wound care -Follow Up BC D/w team . ID will sign off. Call with questions. Gavi Rich MD, MPH Infectious Disease [facility], ID Division Call [phone] with questions Admission and Anticipated Discharge Date Admission Date: June 10, 2024 Subjective This patient recommendation is based on a telemedicine consult request which was completed asynchronously through chart review and information provided by the primary physician. The patient was not seen or examined today. The evaluation is consultative in nature and all patient care and treatment decisions can either be accepted or rejected by the patient's primary hospital-based treating physician using their own independent medical judgment for their patient. Time Spent Reviewing Chart: 31+ minutes No evidence of Osteomyelitis on bl foot MRI Podiatry evaluated- no surgical intervention Results & Data Vital Signs (Past 12 Hours) Vital Signs Temp Pulse Resp BP BP Pulse Ox O2 Del Method 06/14/24 11:26 36.6 C 62 18 107/66 94 Room Air 06/14/24 08:27 36.7 C 61 16 110/72 93 Room Air 06/14/24 07:45 Room Air 06/14/24 03:31 36.6 C 65 16 126/78 92 Room Air Laboratory Results Laboratory Results - last 48 hr 06/13/24 06/14/24 06/14/24 05:52 06:11 12:48 WBC 6.46 6.20 RBC 4.11 L 4.12 L Hgb 12.8 L 12.8 L Hct 39.3 L 38.9 L MCV 95.6 94.4 MCH 31.1 31.1 MCHC 32.6 32.9 RDW Std Deviation 66.0 H 63.1 H RDW Coeff of Sammie 18.6 H 18.3 H Plt Count 177 181 MPV 9.4 9.2 L Immature Gran % (Auto) 0.6 Neut % (Auto) 72.4 Lymph % (Auto) 14.6 [place] % (Auto) 10.7 Eos % (Auto) 1.5 Baso % (Auto) 0.2 Neut # (Auto) 4.68 Lymph # (Auto) 0.94 L [place] # (Auto) 0.69 H Eos # (Auto) 0.10 Baso # (Auto) 0.01 Immature Gran # (Auto) 0.04 ESR 10 Sodium 138 Potassium 4.8 Chloride 102 Carbon Dioxide 31 Anion Gap 5 BUN 33 H Creatinine 1.17 Est Cr Clr Drug Dosing 65.5 eGFR 63.02 BUN/Creatinine Ratio 28.2 H Glucose 102 H Calcium 8.7 C-Reactive Protein < 0.50 Diagnostic Findings Microbiology 06/10/24 14:28 Blood Aerobic Blood Culture - Preliminary No growth in Aerobic bottle after 48 hours. 06/10/24 14:28 Blood Anaerobic Blood Culture - Preliminary No growth in Anaerobic bottle after 48 hours. 06/10/24 11:04 Blood Aerobic Blood Culture - Preliminary No growth in Aerobic bottle after 48 hours. 06/10/24 11:04 Blood Anaerobic Blood Culture - Preliminary No growth in Anaerobic bottle after 48 hours. Foot MRI 06/13/24 10:56 EXAM: MR foot LT wo/w con CLINICAL HISTORY: MRSA cellulitis both feet. bilateral feet burning sensation. open wounds. injected 10cc gadavist through existing iv rt arm uneventful at 0040 on 06/14/24 room 258-1. xray bilateral feet done on 06/11/24. images 367 TECHNIQUE: Multiplanar, multisequence MR imaging of the left foot was performed with and without gadolinium. COMPARISON: None. FINDINGS: Significant subcutaneous soft tissue edema, fat stranding and fluid collection is noted involving the foot, predominantly along the dorsal aspect. Findings suggestive of cellulitis. Edema is also noted involving all the visualized muscles of the foot. Findings suggestive of myositis, likely infective. Minimal fluid is noted in the intermuscular planes as well. Hallux valgus is noted. Osteoarthritic changes are noted at the level of first metatarsophalangeal joint. No obvious marrow edema is noted to suggest underlying osteomyelitis. Mild dorsal subluxation of the proximal phalanx is noted at the level of second metatarsophalangeal joint. Bone marrow signal is within normal limits without bone contusion, fracture or AVN. The visualized flexor and extensor tendons are intact. The Lisfranc ligament is intact. The plantar fascia is intact with no evidence of plantar plate injury. There is no evidence of Mark's neuroma. IMPRESSION: 1. Significant subcutaneous soft tissue edema, fat stranding and fluid collection is noted involving the foot, predominantly along the dorsal aspect. Findings suggestive of cellulitis. 2. Edema is also noted involving all the visualized muscles of the foot. Findings suggestive of myositis, likely infective. Minimal fluid is noted in the intermuscular planes as well. 3. Hallux valgus is noted. Mild osteoarthritic changes are noted at the level of first metatarsophalangeal joint. 4. No obvious marrow edema is noted to suggest underlying osteomyelitis. 5. Mild dorsal subluxation of the proximal phalanx is noted at the level of second metatarsophalangeal joint. Electronically signed by Rupert Mitchell 06-14-2024 02:48 AM Foot MRI 06/13/24 10:56 EXAM: MR foot RT wo/w con CLINICAL HISTORY: MRSA cellulitis both feet. bilateral feet burning sensation. open wounds. injected 10cc gadavist through existing iv rt arm uneventful at 0040 on 06/14/24 room 258-1. xray bilateral feet done on 06/11/24. 416 images TECHNIQUE: Multiplanar, multisequence MR imaging of the right foot was performed with and without gadolinium. COMPARISON: None. FINDINGS: Significant subcutaneous soft tissue edema, fat stranding and fluid collection is noted involving the foot, predominantly along the dorsal aspect. Findings suggestive of cellulitis. Edema is also noted involving all the visualized muscles of the foot. Findings suggestive of myositis, likely infective. Minimal fluid is noted in the intermuscular planes as well. No obvious marrow edema is noted to suggest underlying osteomyelitis. Bone marrow signal is within normal limits without bone contusion, fracture or AVN. The visualized flexor and extensor tendons are intact. The Lisfranc ligament is intact. The plantar fascia is intact with no evidence of plantar plate injury. There is no evidence of Mark's neuroma. IMPRESSION: 1. Significant subcutaneous soft tissue edema, fat stranding and fluid collection is noted involving the foot, predominantly along the dorsal aspect. Findings suggestive of cellulitis. 2. Edema is also noted involving all the visualized muscles of the foot. Findings suggestive of myositis, likely infective. Minimal fluid is noted in the intermuscular planes as well. 3. No obvious marrow edema is noted to suggest underlying osteomyelitis. Electronically signed by Rupert Mitchell 06-14-2024 03:00 AM
[2024-06-14 15:45] LABS: Creatine Kinase 47 U/L (30-223)
--- NOTE | 2024-06-14 16:55 | Ultrasound Report ---
INDICATION: Leg pain. Poor wound healing. TECHNIQUE: Sonographic grayscale, color Doppler and spectral wave analysis of bilateral lower extremity arteries. COMPARISON: No relevant priors. FINDINGS: No evidence of arterial occlusion. Elevated peak systolic velocities in the right posterior tibial artery up to 127 cm/s in the proximal right anterior tibial artery up to 155 cm/s. Elevated peak systolic velocities in the left mid anterior tibial artery up to 142 cm/s. Multiphasic waveforms bilaterally. Scattered plaque formation. IMPRESSION: No evidence of arterial occlusion. 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 Electronically signed by Stan Aranda 06-14-2024 4:55 PM
[2024-06-15 06:56] LABS: Hematocrit (blood only) 39.5 % (42.0-52.0); Hemoglobin 12.7 g/dl (14.0-18.0); Mean Corpuscular Hemoglobin 31.1 pg (25.0-34.0); Mean Corpuscular Hgb Conc 32.2 g/dL (32.0-36.0); Mean Corpuscular Volume 96.6 fL (80.0-100.0); Mean Platelet Volume 9.7 fL (9.4-12.4); Platelet Count 200 K/uL (130-400); RDW Coefficient of Variation 18.4 % (11.5-14.5); RDW Standard Deviation 65.5 fL (36.4-46.3); Red Blood Count 4.09 M/uL (4.70-6.10); White Blood Count 6.18 K/ul (4.8-10.8)
[2024-06-15 07:45] LABS: Anion Gap 3 (3-11); BUN Creatinine Ratio 28.7 (10-20); Blood Urea Nitrogen 39 mg/dl (6-23); Calcium 9.1 mg/dl (8.6-10.3); Carbon Dioxide 35 mmol/L (21-32); Chloride 102 mmol/L (98-107); Glucose 97 mg/dl (70-99(Fasting)); Magnesium 2.1 mg/dl (1.7-2.4); Sodium 140 mmol/L (136-145)
--- NOTE | 2024-06-15 08:09 | Hospitalist Progress Note ---
Date of Service June 15, 2024 Assessment & Plan (1) Recurrent cellulitis of lower extremity: Plan: 78yo male with PMHx of MRSA infection (on doxycycline ppx), prosthetic right knee infection, CAD, CHF, sepsis, rhabdomyolysis, NSTEMI, atrial fibrillation (on Xarelto), chronic venous stasis, peripheral neuropathy, and cellulitis. He has recurrent lower extremity cellulitis infections bilaterally with multiple hospitalizations from this. He presented on 06/10/24 at the behest of the wound care clinic for acute onset of lower extremity pain/swelling over 24 hours. On admission, patient was somnolent which daughter reports tends to happen to him prior to episodes of bacteremia. Recent [facility] admission 05/26 - 05/29 for cellulitis and positive MRSA and Proteus mirabilis ESBL wound culture at that time Dapto/Ertapenem IV Blood cultures NGTD FINAL MRI b/l foot ordered to eval acute osteomyelitis (Xrays from 06/12 negative for such). MRI not appearing w/ acute osteo, does mention myositis Podiatry consulted to weigh in, also concerns for need for possible amputation in future (Bill NOT thrilled about possibility of such). CRP/ESR added and NOT elevated (ESR 10, CRP <0.5) weighing against osteo and recs to continue wound care, possible [facility] in future. ID on consult -- continue Dapto/Ertapenem. plan for IV ABX to complete 10-14 day given ESBL and not plan for PO abx. Discussed and no plan for surgery at this time and recs to complete tx w/ IV. Statin on HOLD -- Will need f/u outpt ID to see if doxy no longer effective for knee but knee looks ok at this time. Repeat arterial duplex w/ concerns for hemodynamically significant stenosis in the infrapopliteal arteries Vascular surgery consulted, no intervention planned. Continue elevation/wraps once heeled. Pain control, bowel regimen as needed - reports recent increase in his gabapentin, is on max dose cymbalta already. Dispo: from [facility], does not want SNF there/not trust biomedical scientist. Did have his dog taken away recently. Did discuss, he is agreeable to ref to [facility] and CM notified. Also updated daughter per Bill's ok and she did have questions about why still occuring and reported hope when stopped his Rinvoq last fall that this would help but has ongoing open wounds/dependent edema and she does report he is using same compression stockings over which w/ active drainage likely to repeat infection with his skin integrity/multiple ulcerations/wounds as well as possibility wheelchair needing cleaned but also recs for continued IV abx at this time/no plan for vascular intervention but also could anticipate amputation in the future if ongoing efforts ineffective but hopeful able to treat conservatively at this time. She does report prior great experience with care/wound care/coordination with ID when transferred to [place] last fall in February/January time and wondering if this is a possibility. Discussed I think this is a great thought process and may allow better [facility] and local wound/ID follow up as he did not want to go to his [facility] ID follow up in May as not wanting to make the drive and should be seen/discussed needing to have ID providers discuss from prior cx from knee if doxy is enough from prior cx as well. CM notified and to call [facility] this evening/follow up in AM to see if transfer is possible for Mr Palacio to improve fpc outcomes. (2) Lethargy: Plan: On admission, resolved and AOx3 Notable depressed as continued inpatient hospitalizations and spent more time in hospital than out in the past 6 months. Support provided. Continues on cymbalta but also for pain. Notable he did recently have his dog taken away at his H for bite to staff and mentation has been worse since that time. Again, support provided for his current issue and ensured will to all in my power to ensure he gets what he needs to hopefully avoid need for surgical intervention if can be avoided. He was very thankful to be listened to. Continued support to be provided. (3) Atrial fibrillation: Plan: Rate controlled Continue Xarelto and amiodarone Electrolytes stable (4) Pressure ulcer of foot, stage 3: Plan: Daily wound care, compression stockings when healed from current infection but SHOULD HAVE NEW COMPRESSION STOCKINGS Continue wound care daily, elevation of foot on pillow (5) Chronic diastolic heart failure: Plan: Appears compensated but does have some mild edema, ?2nd to cellulitis Continues on metoprolol, entresto, bumex, jardiance. Is on RA but will add BNP to AM/additional dose of bumex to help with swelling as needed Of note, w/ chronic leg wounds, may need to consider holding his jardiance (6) History of infection of total joint prosthesis of knee: Plan: Per last ID note, okay to continue doxycycline upon discharge for this specific joint infection however as above, discussed with ID and if no longer sensitive may benefit from suppressive therapy with Bactrim Plan Of note, CTA incidentally noted cystic lesion in the mid body of the pancreas measuring 2.0 cm, which may represent an IPMN. Follow/monitor as indicated outpatient. Dispo: continued inpatient stay on IV abx and plan for COMPLETE course of IV Dapto/Ertapenem and needs ID follow up. No intervention per vascular, podiatry following. Looking into possible tx to [facility] for ongoing treatment and wound/ID follow up given reported significant improvement last fall per update w/ daughter on plan this evening. Also notable, patient should have new compression stockings/ensure wheelchair cleaned given wounds to prevent recurrence (spends a lot of time in the chair w/ legs down). Possible additional bumex in AM PT/OT consults pending as from [facility], per likely not able to take except for to SNF which patient declines. [facility] possible/can send referrals when therapy evals obtained. Admission and Anticipated Discharge Date Admission Date: June 10, 2024 Supervising Physician Co-Signing Physician Notes The patient was not seen by me. The chart was reviewed. Case discussed with ISREAL Monten[place]ro. Agree with assessment and plan Subjective Eval this afternoon, discussed case/plan, podiatry consult and discussion with ID. Has not seen vascular surgry but he would be agreeable to intervention if it meant could avoid amputation and will see what Dr Estrada has to recommend once reviews his case. Patient does NOT want SNF at [facility], distrust in extrusion supervisor, also did let me know about depression with loosing his dog recently/being taken away and has increased his depression. Discussed will attempt conservative treatment with continued IV abx/wait vascular surgery input about possible re-vascularization and will touch base w/ VANIA as he does report good experience at 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 Questions/concerns addressed at this time, he is ok w/ calling daughter for update on his plan of care. Per daughter, patient had great experience/good wound care when in [facility] last january/February, when they stopped his rinvoq for his RA and wondering about services/transfer. CM to follow up and let us know as could transfer if bed to allow for coordination of his services. She also reports Bill uses same compression stockings and discussed could be contributing as well as dependent nature of legs and open wounds but also need to ensure his wheelchair is cleaned. Physical Exam 2 Physical Exam: General: 78 male sitting up in bed, depressed appearing/tired of being in the hospital, NAD HEENT: head atraumatic, normocephalic, mmm, trachea midline Resp: even/unlabored, slightly diminished at the bases but no obvious wheezing/rales, 94% on RA CV: RRR, systolic murmur, trace pedal edema to knees, pulses present GI: +BS, soft/slight distension, nontender no song MSK/Neuro/Skin: multiple ulcerations/superficial wounds to bilateral legs, optifoams in place, no overt drainage, erythema appears to be improving, decreased tenderness, pulses present but weak bilaterally, ?2nd to edema Psych: Alert/oriented x 3, cooperative but depressed at times, support provided Results & Data Results & Data Vital Signs (Past 12 Hours) Vital Signs Temp Pulse Resp BP Pulse Ox O2 Del Method 06/15/24 07:55 37.0 C 62 18 136/75 93 Room Air 06/14/24 22:11 36.6 C 60 16 113/66 93 Room Air 06/14/24 21:30 Room Air Laboratory Results 06/15/24 05:52 06/15/24 05:52 ESR 10 CRP <0.5 Diagnostic Findings Duplex Scan Lower Extremity Artery 06/14/24 13:50 INDICATION: Leg pain. Poor wound healing. TECHNIQUE: Sonographic grayscale, color Doppler and spectral wave analysis of bilateral lower extremity arteries. COMPARISON: No relevant priors. FINDINGS: No evidence of arterial occlusion. Elevated peak systolic velocities in the right posterior tibial artery up to 127 cm/s in the proximal right anterior tibial artery up to 155 cm/s. Elevated peak systolic velocities in the left mid anterior tibial artery up to 142 cm/s. Multiphasic waveforms bilaterally. Scattered plaque formation. IMPRESSION: No evidence of arterial occlusion. 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 Electronically signed by Stan Aranda 06-14-2024 4:55 PM PG Care Time/CCT Total # of Minutes Spent Total Time Spent with Patient: Total time spent is greater than 50% in coordination of care (as documented) at patient's floor/unit and/or counseling patient: Coding Level of Care Code 80415 SUB INP/OBS CARE 3/50MIN Diagnoses Recurrent cellulitis of lower extremity L03.119 Lethargy R53.83 Atrial fibrillation I48.91 Pressure injury of right foot, stage 3 L89.893 Laterality: right Chronic diastolic heart failure I50.32 History of infection of total joint prosthesis of knee Z87.39 (4) Pressure ulcer of foot, stage 3 Laterality: right Qualified Code(s): L89.893 - Pressure ulcer of other site, stage 3
--- NOTE | 2024-06-15 13:54 | Consultation ---
Date of Consultation June 15, 2024 Assessment & Plan (1) Peripheral arterial disease: Pt with mild/moderate PAD on US, palpable pulses distally. Also with chronic venous insufficiency, likely contributing to BL antonio wounds. Recommend elevation of legs when able. May consider for graduated compression stockings once wounds are healed. No indications for vascular surgical intervention at this time. Recommend local wound care vs podiatric surgical intervention per podiatry. Please call if needed. History of Present Illness Reason for Consultation: PAD Attending Physician: Arnoldo Yarbrough MD History of Present Illness 78 yo m with hx of spinal stenosis, neuropathy, a fib, chf, rheumatoid arthritis, venous stasis, ckd, CAD, N STEMI, anxiety, depression, dyslipidemia, admitted with worsening infection in BLE, seen in consultation today for PAD. Pt states has had BLE foot wounds for about 3 months. Has very little sensation there d/t neuropathy related to severe spinal stenosis. Also has BL leg wounds and severe edema d/t being primarily wheelchair bound. Has been following with [facility] center for wound care. States has not had much improvement since seeing them. States developed more pain in the wounds and was directed to come to [facility] ED. Pt denies fever, chest pain, SOB, abd pain, N/V, rest pain, claudicat ion(does not walk fast or far enough), other complaints. CTA imaging demonstrates widely patent proximal arteries, with poor opacification infra pop arteries. Arterial US demonstrates triphasic flow to feet. Allergies Allergy/AdvReac Type Severity Reaction Status Date / Time cat dander Allergy Severe CAT Verified 06/02/24 09:02 HAIR---Swelling of Lip/Tongue/Throat Home Medications Medication Instructions Recorded Confirmed Type aspirin 81 mg tablet,delayed 81 mg PO QAM 08/07/22 06/10/24 History release (Adult Low Dose Aspirin) vjfqtmbq-nulylou-ysxr-lutein tablet 1 tab PO QAM 08/07/22 06/10/24 History cyanocobalamin (vitamin B-12) 500 1,000 mcg (2 x 500 mcg) PO QAM #30 01/18/23 06/10/24 Rx mcg tablet tabs thiamine HCl (vitamin B1) 100 mg 100 mg PO QAM 02/05/23 06/10/24 History tablet duloxetine 60 mg capsule,delayed 60 mg PO QAM #90 caps 10/29/23 06/10/24 Rx release rivaroxaban 20 mg tablet (Xarelto) 20 mg PO DAILY 11/19/23 06/10/24 History sennosides 8.6 mg tablet 8.6 mg PO BID 12/15/23 06/10/24 History cholecalciferol (vitamin D3) 10 20 mcg PO DAILY 01/21/24 06/10/24 History mcg (400 unit) tablet mirtazapine 30 mg tablet 30 mg PO HS 01/21/24 06/10/24 History nitroglycerin 0.4 mg sublingual 0.4 mg sublingual DIRECTED PRN 01/21/24 06/10/24 History tablet chest pin pravastatin 40 mg tablet 40 mg PO HS 01/21/24 06/10/24 History vitamin E 268 mg (400 unit) capsule 268 mg PO DAILY ##0 01/21/24 06/10/24 History acetaminophen 325 mg tablet 975 mg PO Q8H PRN mild pain,fever, 01/26/24 06/10/24 History or headache omega 3-hlp-tfk-fish oil 900 1 cap PO DAILY 02/01/24 06/10/24 History mg-1,400 mg capsule,delayed release doxycycline hyclate 100 mg capsule 100 mg PO BID 03/29/24 06/10/24 History latanoprost 0.005 % eye drops 1 drp OPB QPM 03/29/24 06/10/24 History nystatin 100,000 unit/gram topical 1 applic topical DAILY 03/29/24 06/10/24 History powder vitamin B comp and C no.3 15 mg-10 1 cap PO DAILY 03/29/24 06/10/24 History mg-50 mg-5 mg-300 mg capsule (B Complex Plus Vitamin C) diphenhydramine HCl 25 mg capsule 25 mg PO Q6H PRN itching #10 caps 04/07/24 06/10/24 Rx (Benadryl) metoprolol succinate 25 mg 25 mg PO QAM #30 tabs 04/07/24 06/10/24 Rx tablet,extended release 24 hr empagliflozin 10 mg tablet 10 mg PO DAILY #90 tabs 05/11/24 06/10/24 Rx (Jardiance) ferrous sulfate 325 mg (65 mg 325 mg PO DAILY #90 tabs 05/11/24 06/10/24 Rx iron) tablet sacubitril 24 mg-valsartan 26 mg 1 tab PO BID #180 tabs 05/11/24 06/10/24 Rx tablet (Entresto) tamsulosin 0.4 mg capsule 0.4 mg PO DAILY #90 caps 05/11/24 06/10/24 Rx gabapentin 600 mg tablet 600 mg PO TID neuropathy from 05/12/24 06/10/24 Rx severe PVD wounds 1 month #90 tabs oxycodone 5 mg tablet See Rx Instructions PO Q6H PRN 05/12/24 06/10/24 Rx pain 1 month #100 tabs arginine 7 gram-glutamine 7 1 ea PO BID 05/18/24 06/10/24 History gram-calcium HMB 1.5 gram oral powder pack (Dom) folic acid 1 mg tablet 1 mg PO DAILY 05/18/24 06/10/24 History melatonin 3 mg tablet 6 mg PO HS 05/18/24 06/10/24 History omeprazole 20 mg tablet,delayed 20 mg PO DAILY 05/18/24 06/10/24 History release amiodarone 200 mg tablet 400 mg (2 x 200 mg) PO BIDM 30 05/20/24 06/10/24 Rx days #120 tabs bumetanide 0.5 mg tablet 0.5 mg PO DAILY 05/27/24 06/10/24 History Patient History Medical History Bilateral lower leg cellulitis PVD (peripheral vascular disease) Atrial flutter with rapid ventricular response Open wound of left lower extremity Sepsis secondary to UTI Fever Sepsis due to skin infection Sepsis Fall Infected hardware in right leg Chronic infection of right knee UTI (urinary tract infection) Severe sepsis Venous ulcer of right leg Venous stasis ulcers of both lower extremities Idiopathic polyneuropathy History of immunosuppressive therapy Heart failure with preserved ejection fraction GERD (gastroesophageal reflux disease) Sepsis Septicemia due to Streptococcus pneumoniae Respiratory failure with hypoxia Hypomagnesemia Pneumonia Benign essential hypertension Lumbar stenosis Hx of staphylococcal infection 03/2022, w/"bacterial infection" at the same, in the rt. knee, occurrred during atrial fibrillation episode. "when he woke up, he couldn't walk." Atrial fibrillation episode occurred in 03/2022, taken to [facility], admitted to ICU for 1-2 weeks (was not intubated, but wasn't "awake either"), then to cardiac unit, then to rehab at [facility] in [place]; f/u dr. guerra in [place]>will be starting to see a cotton tipper at [facility] 2nd week of 08/2022 Myocardial Infarction "a silent one, 2019" Sleep apnea no device Surgical History Status post revision of total replacement of right knee Hx of Achilles tendon repair rt. Hx of knee surgery rt. patellar tendon repair Hx of rotator cuff surgery bilateral Hx of total knee replacement lt. Hx of total hip arthroplasty rt. History of colostomy reversal History of bowel resection for diverticulitis; w/colostomy placement for 3-4 months Hx of hernia repair near former colostomy site History of esophagogastroduodenoscopy (EGD) Hx of colonoscopy Last Colonoscopy 08/14/22, repeat 3 years in 2025 Hx of bilateral cataract extraction History of heart artery stent ~3 years ago, x2 stents, done in [place]; f/u dr guerra, [place]>will be seeing new cardio at [place] week of August 2022. History of cardiac cath ~3 years ago, SOB and "felt like throat was constricting", had "silent heart attack", x2 stents, done in [place] Family History Grandmother (Maternal) Diabetes Daughter Diabetes Father Suicide Hypertension Denies family history of Ovarian cancer Prostate cancer Myocardial infarction Breast cancer Lung cancer Colorectal cancer Stroke Social History Smoking Status: Never smoker Second Hand Exposure: No; Do You Dip or Chew Tobacco: No; Hx Alcohol Use: Yes Alcohol type: wine Alcohol Intake Frequency: 4 or More x per/Week Hx Substance Use: No Preferred Language: Maori Communication Ability: Effective Visual Impairment: Limited Hearing Ability: Normal 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 Tank Operator Required: No Beliefs That Will Affect Care: None marital status: Single Current Living Situation: Other Current Living Situation Comment: resides in independent living facility current occupational status: retired How many Children do You have: 2 Feels Safe at Home: Yes Childhood Exposure to Second-Hand Smoke: Yes Diet: regular caffeine: Yes Dental Care, Regularly: Yes Physical Activity Frequency: Does not Exercise Seatbelt Use: always Sunscreen Use: Yes Assistive Devices: Wheelchair Review of Systems Review of Systems: All systems reviewed & are unremarkable except as noted in HPI & below Physical Exam Constitutional: WD/WN, vitals as above Neck: trachea midline Respiratory: normal respiratory effort, lungs clear to auscultation Cardiovascular: Rate/Rhythm: + irregularly irregular Vessels: posterior tibial pulses present, dorsalis pedis pulses present and radial pulses present; + abnormal peripheral pulses Extremities: normal capillary refill and + edema Gastrointestinal (Abdomen): Inspection/Auscultation: abdomen normal to inspection and normal bowel sounds Percussion/Palpation: abdomen soft; abdomen nontender Musculoskeletal: no cyanosis or clubbing, extremities motor strength 5/5 Skin: + ulcer (R lateral foot/1st toe, L 1st t oe, BL anterior shins) BLE skin changes d/t chronic venous insufficiency Neurologic: moves all extremities and awake; no focal motor deficits and not confused Psychiatric: A+Ox3, euthymic affect Results & Data Vital Signs (Past 12 Hours) Vital Signs Temp Pulse Resp BP Pulse Ox O2 Del Method 06/15/24 07:55 37.0 C 62 18 136/75 93 Room Air 06/15/24 07:40 Room Air
--- NOTE | 2024-06-15 15:39 | Podiatry Progress Note ---
Date of Service June 15, 2024 Assessment & Plan (1) Pressure ulcer of right foot, stage 3: (2) Non-pressure chronic ulcer of other part of right foot limited to breakdown of skin: (3) Non-pressure chronic ulcer of other part of left foot limited to breakdown of skin: Plan -Vascular surgery consultation reviewed. Appreciate recommendations. -Continue to elevate right foot off the mattress with focus on removing contact to the lateral foot with 2 pillows behind the posterior ankle/calf at all times while at rest. Keep bilateral lower extremity elevated while at rest. Avoid extended periods of time with feet in dependent position. -Bilateral foot wounds: Continue once daily dressing changes as outlined by wound care nurse Janette on 06/13/2024: Wound care discharge instructions placed. "To left and right toe wounds clean with saline. Apply strips of Aquacel Ag between toes, over wounds. Cover with gauze and secure with Kerlix. Change every day and as needed." -Okay to continue weightbearing as tolerated in postop shoes -No plan for surgical intervention at this time. Podiatry Will continue to monitor patient's progress while he remains in house and recommend he continue follow-up with the wound care center at time of discharge. Thank you for consulting podiatry to aid in the care of this patient. Admission and Anticipated Discharge Date Admission Date: June 10, 2024 Subjective Patient resting comfortably in hospital bed with dressings in place to bilateral leg and foot. He is elevating his feet on 2 pillows over these due to shift allowing patient's lateral right foot to rest of the mattress. He is again encouraged to monitor this closely to make sure that he is rearranging or having a degree of range his pillows to continue to suspend the lateral aspect of the right foot and elevate the feet. Patient is seen by vascular surgery earlier today with recommendations for bilateral lower extremity elevation graduated compression stockings once wounds have healed. No indication for vascular surgical intervention. Patient reports mild persistent discomfort of the bilateral foot. Denies nausea vomiting fever chills. Physical Exam Physical Exam: Const: Appears well developed and well nourished. No signs of acute distress present. No signs of acute distress. Patient is awake and alert and asked is a good historian. CV: Extremities: +1 pitting edema to the bilateral foot and ankle. Capillary refill time is less than 3-4 seconds all digits of the bilateral foot. Posterior tibial and dorsalis pedis pulses are non-palpable bilateral. Lymph: No palpable or visible regional lymphadenopathy. Skin: No scars, rashes, lesions or ecchymosis. Neuro: Sensation intact to light touch in all areas of the foot and ankle. Psych: Mood/Affect: Mood is normal. Affect is normal. Cognition: Orientation is intact to person, place and time. Focused lower extremity musculoskeletal exam: Ankles: Dressing in place to the bilateral ankle covering venous stasis ulcerations. +1 pitting edema to the bilateral ankle. Feet: Overall character in the bilateral foot is improved with creased warmth return of skin color notable blanching. Soft tissue surrounding the wounds in the distal foot is no longer cyanotic. Loss of hair growth bilateral foot and distal leg. Right lateral foot: Stage III pressure ulcer: Ovoid wound overlying the base of the fifth metatarsal laterally. Scant sanguinous drainage noted to dressing just changed earlier today. Resolution of periwound maceration. The overall appearance of the bilateral foot is significantly improved with resolution of the purple to blue cyanotic appearance and increased warmth noted compared to yesterday's exam. Decreased edema to the right foot. No focal increase in erythema or edema. No frankly exposed bone to the wound bed. Medial right second toe: Small well-circumscribed superficial ulceration with granular wound bed. No active drainage. Right great toe: Superficial geographic wound with mixed fibrotic and granular wound bed. Significant improvement over the past 24 hours noted with decreased periwound soft tissue irritation and no active drainage at present. Left great toe: Superficial geographic ulceration just proximal to the nail plate with mixed fibrotic and granular wound bed. No drainage to the Aquacel dressing. Wound does not probe or track in any direction. No frankly exposed bone or subcutaneous tissue. Results & Data Results & Data Vital Signs (Past 12 Hours) Vital Signs Temp Pulse Resp BP Pulse Ox O2 Del Method 06/15/24 07:55 37.0 C 62 18 136/75 93 Room Air 06/15/24 07:40 Room Air Coding [place] [id number] SUB INP/OBS CARE 07/02MIN Patient Type Established History Problem Focused Exam Problem Focused Diagnoses Pressure ulcer of right foot, stage 3 L89.893 Non-pressure chronic ulcer of other part of right foot limited to breakdown of skin L97.948 Non-pressure chronic ulcer of other part of left foot limited to breakdown of skin L97.015
[2024-06-16 08:14] LABS: Hematocrit (blood only) 40.4 % (42.0-52.0); Hemoglobin 12.9 g/dl (14.0-18.0); Mean Corpuscular Hemoglobin 30.5 pg (25.0-34.0); Mean Corpuscular Hgb Conc 31.9 g/dL (32.0-36.0); Mean Corpuscular Volume 95.5 fL (80.0-100.0); Mean Platelet Volume 9.2 fL (9.4-12.4); Platelet Count 187 K/uL (130-400); RDW Coefficient of Variation 18.1 % (11.5-14.5); RDW Standard Deviation 63.7 fL (36.4-46.3); Red Blood Count 4.23 M/uL (4.70-6.10); White Blood Count 6.82 K/ul (4.8-10.8)
--- NOTE | 2024-06-16 08:48 | Hospitalist Progress Note ---
Date of Service June 16, 2024 Assessment & Plan (1) Recurrent cellulitis of lower extremity: Plan: 78yo male with PMHx of MRSA infection (on doxycycline ppx), prosthetic right knee infection, CAD, CHF, sepsis, rhabdomyolysis, NSTEMI, atrial fibrillation (on Xarelto), chronic venous stasis, peripheral neuropathy, and cellulitis. He has recurrent lower extremity cellulitis infections bilaterally with multiple hospitalizations from this. He presented on 06/10/24 at the behest of the wound care clinic for acute onset of lower extremity pain/swelling over 24 hours. On admission, patient was somnolent which daughter reports tends to happen to him prior to episodes of bacteremia. Recent [facility] admission 05/26 - 05/29 for cellulitis and positive MRSA and Proteus mirabilis ESBL wound culture at that time Dapto/Ertapenem IV continued, ID consulted/plan for 10-14 days with IV ONLY given ESBL. On day 6 of therapy 06/16, EOT 06/20 - 06/24. WBC wnl, afebrile. Blood cx negative FINAL. Statin remains on hold while on dapto and CK not elevated MRI w/o evidence for osteo, CRP/ESR not elevated weighing against osteo as well Eval'd by podiatry, no intervention at this time given no osteo but may need amputation at site on lateral foot in future if ongoing issues Vascular consulted given arterial studies w/ significant stenosis, no planned intervention at this time Continue elevation of extremities, wound care. Will need ongoing wound care/podiatry follow up at ar Pain control, bowel regimen as needed - reports recent increase in his gabapentin, is on max dose cymbalta already. As discussed with daughter 06/15, recs for changing his compression stockings as has been reusing and also lot of time in his wheelchair/dependent and encouraged making sure this gets whipped down/cleaned as had just been doing the seat but suspect w/ open lesions/drainage that could contribute to repeat infections From [facility], pt report able to do IV abx himself but have discussed w/ family given prior attempts and was difficult/not ideal/safe per daughter report and her/brother had to go daily. [facility] but [facility]ined [facility] and will continue to f/u with CM about dispo planning but remain inpatient at this time, Will need f/u outpt ID to see if doxy no longer effective for knee but knee looks ok at this time. Labs/exam in AM (2) Hyperkalemia: Plan: K 5.2 on AM labs, ?2nd to medication, renal function stable. Is on entresto for hx CHF, slight volume overloaded today with improvement in Cr from day prior. Additional bumex 1mg PO x 1 , no CP/palpitations and will monitor BMP on repeat Can check EKG if any CP/SOB symptoms but denies at this time. Can place entresto on hold for this evening given the extra bumex and plan to resume in AM (3) Lethargy: Plan: On admission, resolved and AOx3 Notable depressed as continued inpatient hospitalizations and spent more time in hospital than out in the past 6 months. Support provided. Continues on cymbalta but also for pain. Notable he did recently have his dog taken away at his H for bite to staff and mentation has been worse since that time. Again, support provided for his current issue and ensured will to all in my power to ensure he gets what he needs to hopefully avoid need for surgical intervention if can be avoided. He was very thankful to be listened to. Continued support to be provided. (4) Atrial fibrillation: Plan: Rate controlled Continue Xarelto and amiodarone Electrolytes stable (5) Pressure ulcer of foot, stage 3: Plan: Daily wound care, compression stockings when healed from current infection but SHOULD HAVE NEW COMPRESSION STOCKINGS at dc Continue wound care daily, elevation of foot on pillow (6) Chronic diastolic heart failure: Plan: Appears compensated but does have some mild edema, ?2nd to cellulitis Continues on metoprolol, Entresto, Bumex, Jardiance. Added BNP, mild elevation and given swelling, additional 1mg PO bumex on 06/16 also for K 5.2 and will hold evening entresto for now/likely able to resume in AM as does not appear to be new med. Cr 1.3-> 1.1 on labs Monitor about Jardiance w/ leg wounds/repeat infections Monitor volume status in AM but will continue usual 0.5mg bumex as ordered for now, additional dosing as needed (7) History of infection of total joint prosthesis of knee: Plan: Per last ID note, okay to continue doxycycline upon discharge for this specific joint infection however as above, discussed with ID and if no longer sensitive may benefit from suppressive therapy with Bactrim Plan Of note, CTA incidentally noted cystic lesion in the mid body of the pancreas measuring 2.0 cm, which may represent an IPMN. Follow/monitor as indicated outpatient. Dispo: continued inpatient stay on IV abx and plan for COMPLETE course of IV Dapto/Ertapenem and needs ID follow up at ar. [facility] at this [facility]. Possible [facility] swing bed but Corky going to let her know if wanting to use secondary insurance to apply. Updated daughter via phone 06/15 and will plan to touch base in AM unless needed sooner but will remain inpatient at this time. Will need new compression stockings at ar to prevent issues as well as ensuring wheelchair cleaned well/legs/etc. Darco boots in place Admission and Anticipated Discharge Date Admission Date: June 10, 2024 Supervising Physician Co-Signing Physician Notes The patient was not seen by me. The chart was reviewed. Case discussed with ISREAL [place]en[place]. Agree with assessment and plan Subjective Patient evaluated this afternoon, sitting up in chair, legs dependent but about to elevate on the bed. Leg edema improved, did get extra dose of bumex this morning for slight elevated BNP/edema from cellulitis as well as weight. Discussed call to daughter w/ update on plan, [facility] but needing to follow up with CM about such. Remains on IV abx. Breathing stable. Will continue IV abx until completion with IV only given discussion with ID prior, vascular without plans for intervention. Time spent talking about his quality of life and frustrations with repeat hospitalizations/infections/etc. Discussed also cleaning the wheelchair and changing his compression stockings as well with improvement to prevent recurrence. Dressings last changed 06/15, pain stable control/improved with ordered medications. Questions/concerns addressed, support provided. Physical Exam 2 Physical Exam: General: 78 male sitting up in CHAIR, appears improved mood following update daughter/attempts for coordination of care but does endorse frustration with repeated hospitalizations/etc. NAD HEENT: head atraumatic, normocephalic, mmm, trachea midline Resp: even/unlabored, slightly diminished at the bases but no obvious wheezing/rales, 94% on RA CV: RRR, systolic murmur, trace pedal edema to knees (IMPROVING SINCE BUMEX THIS MORNING), pulses present but weak GI: +BS, soft, nontender no song MSK/Neuro/Skin: multiple ulcerations/superficial wounds to bilateral legs, optifoams in place, no overt drainage, erythema appears to be improving/almost resolved, less tenderness, weak pulses but present, decreased edema Psych: Alert/oriented x 3, cooperative but depressed at times, support provided and appears improved Results & Data Results & Data Vital Signs (Past 12 Hours) Vital Signs Temp Pulse Resp BP Pulse Ox O2 Del Method 06/16/24 07:34 37.3 C 62 18 170/93 H 94 Room Air 06/15/24 21:28 61 06/15/24 21:12 37.3 C 58 L 18 107/69 93 Room Air 06/15/24 21:00 Room Air Laboratory Results 06/16/24 07:36 06/16/24 07:36 BNP 148 Mag 2.0 PG Care Time/CCT Total # of Minutes Spent Total Time Spent with Patient: Total time spent is greater than 50% in coordination of care (as documented) at patient's floor/unit and/or counseling patient: Coding Level of Care Code 74529 SUB INP/OBS CARE 3/50MIN Diagnoses Recurrent cellulitis of lower extremity L03.119 Hyperkalemia E87.5 Lethargy R53.83 Atrial fibrillation I48.91 Pressure injury of right foot, stage 3 L89.893 Laterality: right Chronic diastolic heart failure I50.32 History of infection of total joint prosthesis of knee Z87.39 (5) Pressure ulcer of foot, stage 3 Laterality: right Qualified Code(s): L89.893 - Pressure ulcer of other site, stage 3
[2024-06-16 08:49] LABS: BUN Creatinine Ratio 25.6 (10-20); Calcium 8.9 mg/dl (8.6-10.3); Creatinine Clr Calc Pharmacy 65.9 ml/min; Potassium 5.2 mmol/L (3.5-5.1)
[2024-06-16] MEDS: BUMETANIDE 1 MG TAB PO ONE (11:31)
--- NOTE | 2024-06-17 08:27 | Hospitalist Progress Note ---
Date of Service June 17, 2024 Assessment & Plan (1) Recurrent cellulitis of lower extremity: Plan: 78yo male with PMHx of MRSA infection (on doxycycline ppx), prosthetic right knee infection, CAD, CHF, sepsis, rhabdomyolysis, NSTEMI, atrial fibrillation (on Xarelto), chronic venous stasis, peripheral neuropathy, and cellulitis. He has recurrent lower extremity cellulitis infections bilaterally with multiple hospitalizations from this. [facility] acute onset of lower extremity pain/swelling over 24 hours. On admission, patient was somnolent which daughter reports tends to happen to him prior to episodes of bacteremia. Recent [facility] admission 05/26 - 05/29 for cellulitis and positive MRSA and Proteus mirabilis ESBL wound culture at that time Dapto/Ertapenem IV continued, ID consulted/plan for 10-14 days with IV ONLY given ESBL. Statin remains on hold while on dapto, CK not elevated On day 7 of therapy 06/17, EOT 06/20 - 06/24. --> would plan 14 day course to ensure resolution but has had significant improvement WBC wnl, afebrile. BCx neg FINAL MRI no osteo, podiatry consulted for eval but CRP/ESR not elevated, weighing against osteo --> per podiatry, no intervention at this time given no osteo but may need amputation at site on lateral foot in future if ongoing issues. continue elevation, compression once able (will need new). Will need ongoing wound care/podiatry follow up at [facility] Vascular consulted given arterial studies w/ significant stenosis, no planned intervention at this time Pain control, bowel regimen as needed - stable pain w/ recent increase gabapentin (max for renal function) and already on max cymalta and reports pain IMPROVING daily Given additional bumex 1mg PO for hyperkalemia and edema, resolved on AM chemistries but will hold AM 0.5mg dose as was given in addition to 1mg dose on 06/16 Contacted [facility] provider to see about ability to get patient into [facility] re[facility] as denied [facility]. He is going to sent message to [facility] worker for [facility] to call case management on thursday. No beds at this time/several waiting but given ongoing need for abx and needing additional week of treatment hopefully by time bed available if able to accept will be able to arrange. Patient not thrilled at idea of [facility], definitely needs ongoign rehab as well as wound care to ensure wounds healing/prevent further damage to skin integrity which will only risk of repeat infections/etc. With therapy and to have Darco boots on but not even able to put shoes on without assistance and should not return to independent living prior to improvement with strengthening/conditioning and management of his wounds. He also should have follow up with local ID re: [facility] in the past as missed appt in December. New compression stockings given seeping of wounds likely not helping his case either. (2) Hyperkalemia: Plan: K 5.2 on labs 06/16, additional bumex for edema/cellultiis with improvement on exam but held PM entresto as well. BPs elevated today/bumex on hold for am given slight bump in CR but resuming entresto for this evening given K 4.0 and will see if able to hold off labs for AM given patient request but if any concerns may need repeat lab testing. No CP/palpitations reported (3) Lethargy: Plan: On admission --> resolved and AOx3, do note depression w/ repeat hospitalizations in more than out in 6 months per daughter and discussion with Mr Palacio Supportive care provided, tx as outlined above and hopefully able to get him into acute inpatient rehab as outlined above. He has been very thankful of continued attempts to improve his [facility] care/conditions (4) Atrial fibrillation: Plan: Rate controlled, remains on xarelto/amio, electrolytes stable and actually w/ hyperkalemia above now resolved. Mag stable 1.9 and will avoid additional volume given bumex extra dose yesterday but will monitor to start oral to keep replete if needed No CP/palpitations reported (5) Pressure ulcer of foot, stage 3: Plan: Daily wound care, compression stockings when healed from current infection but SHOULD HAVE NEW COMPRESSION STOCKINGS at [facility] Continue wound care daily, elevation of foot on pillow Darco boots in room, to use w/ ambuation (6) Chronic diastolic heart failure: Plan: Appears compensated but does have some mild edema, ?2nd to cellulitis Continues on metoprolol, Entresto, Bumex, Jardiance. Added BNP, mild elevation and given swelling, additional 1mg PO bumex on 06/16 also for K 5.2 and will hold evening entresto for now/likely able to resume in AM as does not appear to be new med. Cr 1.3-> 1.1 on labs Monitor about Jardiance w/ leg wounds/repeat infections Monitor volume status in AM but will continue usual 0.5mg bumex as ordered for now, additional dosing as needed (7) History of infection of total joint prosthesis of knee: Plan: Per last ID note, okay to continue doxycycline upon discharge for this specific joint infection however as above, discussed with ID and if no longer sensitive may benefit from suppressive therapy with Bactrim Plan Of note, CTA incidentally noted cystic lesion in the mid body of the pancreas measuring 2.0 cm, which may represent an IPMN. Follow/monitor as indicated outpatient. Dispo: continued inpatient stay on IV abx and planning 14 day course Dapto/Ertapenem. ID f[facility]u [facility] to contact [facility] on Thursday to discuss but hopefully able to get [facility] with local ID/podiatry care, possible 2nd opinion from vascular if felt warranted. Updated daughter 06/15 and will plan to touch base in AM with plan as onfolds but do not believe safe to return [facility] independent and has significant weakness requiring rehab for strength/conditioning and prevention of readmission/repeat infections if does not go to rehab prior to returning to independent living as desired (however notable not great experiences lately with Diana/having his dog taken away, son has dog at present time per daughter) Admission and Anticipated Discharge Date Admission Date: June 10, 2024 Supervising Physician Co-Signing Physician Notes The patient was not seen by me. The chart was reviewed. Case discussed with ISREAL Montenegro. Agree with assessment and plan Subjective Eval this afternoon, getting cleaned up by nursing. Discussed dispo, cleared up confusion from mixed messages from children. Not thrilled on the [facility] idea, reports he needs rehab. Discussed reaching out to prior vish who works at [place] for discussion and attempts to get him to [place] facility if able to make accommodations. Following up with CM. Labs declined this morning, discussed reasoning given prior K elevation to monitor renal function and potassium and he is agreeable. If normal, plan to hold off lab draws for AM. Pain improved, dressings in palce. Questions/concerns addressed at this time. Physical Exam 2 Physical Exam: General: 78 male laying in bed, getting cleaned up by nursing, flat affect/wanting to clear up issues with children regarding disposition planning but was pleasant/cooperative with me once discussed HEENT: head atraumatic, normocephalic, mm slightly dry, trachea midline Resp: even/unlabored, slightly diminished at the bases (improved) but no obvious wheezing/rales, 96% CV: RRR, systolic murmur, no further pitting edema, cellulitis MUCH improved, pulses present but weak, sluggish cap refill GI: +BS, soft, slight distension/obese, nontender, no guarding/rebound no song MSK/Neuro: generalized weakness but improving, several ulceration to bilateral legs with dressings in place, scant drainage noted to dressing right lateral thigh sensation intact, cyanotic appearance to bilaterlal feet with loss of hair noted most significant w/ RIGHT foot lateral 5th metatarsal base with possible tendon exposure, dressing intact/not removed subsequently Psych: AOx3, cooperative, improved from days prior Results & Data Results & Data Vital Signs (Past 12 Hours) Vital Signs Temp Pulse Resp BP Pulse Ox O2 Del Method 06/17/24 08:05 36.7 C 60 18 143/83 H 95 Room Air Laboratory Results 06/16/24 07:36 06/17/24 13:06 Mag 1.9 PG Care Time/CCT Total # of Minutes Spent Total Time Spent with Patient: Total time spent is greater than 50% in coordination of care (as documented) at patient's floor/unit and/or counseling patient: Coding Level of Care Code 19973 SUB INP/OBS CARE 3/50MIN Diagnoses Recurrent cellulitis of lower extremity L03.119 Hyperkalemia E87.5 Lethargy R53.83 Atrial fibrillation I48.91 Pressure injury of right foot, stage 3 L89.893 Laterality: right Chronic diastolic heart failure I50.32 History of infection of total joint prosthesis of knee Z87.39 (5) Pressure ulcer of foot, stage 3 Laterality: right Qualified Code(s): L89.893 - Pressure ulcer of other site, stage 3
--- NOTE | 2024-06-17 10:46 | Podiatry Progress Note ---
Date of Service June 17, 2024 Assessment & Plan (1) Non-pressure chronic ulcer of other part of left foot limited to breakdown of skin: (2) Non-pressure chronic ulcer of other part of right foot limited to breakdown of skin: (3) Pressure ulcer of right foot, stage 3: Plan -Continued offloading of the right lateral foot wound with 2 pillows behind the right calf/ankle. Continue to elevate bilateral lower extremity while at rest. Minimize time with feet in dependent position. -Bilateral foot wound dressings changed. Continue once daily dressing changes cleansing with saline and dressing with Aquacel and a dry sterile dressing. Please avoid occlusive dressings over these wounds. -Okay to continue weightbearing in postop shoes. -Patient's wounds and general appearance of the bilateral foot and leg are improving somewhat rapidly with antibiotic therapy, elevation of the limbs and regular wound care. No indication for surgical intervention. Thank for consulting podiatry date in the case care of this patient. Will continue to follow his progress while he remains in house and recommend continued follow-up at the wound care center following discharge. Ongoing care of patient's lower extremity wounds following discharge should focus on regular elevation of the limbs whenever possible at or above the level of heart and graduated compression stockings throughout the day. Admission and Anticipated Discharge Date Admission Date: June 10, 2024 Subjective Patient seen resting comfortably in hospital bed. Reports persistent mild pain in the bilateral foot. Bilateral feet are elevated off the mattress with pillows behind the calf/ankle. Dressings clean dry and intact to the bilateral foot and leg. Denies nausea vomiting fever chills. Review of Systems Review of Systems: Patient denies nausea vomiting fever chills. Denies shortness of breath or chest pain. Reports pain in the bilateral foot. Review of systems otherwise negative unless noted above. Physical Exam Physical Exam: Const: Appears well developed and well nourished. No signs of acute distress present. No signs of acute distress. Patient is awake and alert and asked is a good historian. CV: Extremities: +1 pitting edema to the bilateral foot and ankle. Capillary refill time is less than 3-4 seconds all digits of the bilateral foot. Posterior tibial and dorsalis pedis pulses are non-palpable bilateral. Lymph: No palpable or visible regional lymphadenopathy. Skin: No scars, rashes, lesions or ecchymosis. Neuro: Sensation intact to light touch in all areas of the foot and ankle. Psych: Mood/Affect: Mood is normal. Affect is normal. Cognition: Orientation is intact to person, place and time. Focused lower extremity musculoskeletal exam: Ankles: Dressing in place to the bilateral ankle covering venous stasis ulcerations. +1 pitting edema to the bilateral ankle. Feet: Overall character in the bilateral foot is improved with creased warmth return of skin color notable blanching. Soft tissue surrounding the wounds in the distal foot is no longer cyanotic. Loss of hair growth bilateral foot and distal leg. Right lateral foot: Stage II pressure ulcer: Ovoid wound overlying the base of the fifth metatarsal laterally. Decreased dimensions to this wound with decreased depth. Persistent pain to palpation. Mild periwound erythema. The wound borders have improved significantly with offloading and dressing changes. There is no longer any maceration and wound edges are blanchable with signs of encroaching epithelial tissue. Medial right second toe: Small well-circumscribed superficial ulceration with granular wound bed. Color is returned to the toes of the right foot and this wound is starting to show signs of epithelial tissue growth to the borders. No active drainage. Right great toe: No periwound erythema or edema. Wound bed is covered in a layer of slough which is gently removed and mechanically exposing underlying healthy granular wound bed. Minimal drainage to dressing. Left great toe: Mild periwound erythema with no notable edema. Moderate d rainage to the Aquacel dressing noted. This wound bed is also covered with a layer of slough which is easily removed with a 4 x 4 gauze. Underlying wound bed is healthy and granular. Wound does not probe or track in any direction. No frankly exposed bone or nailbed at this time. Results & Data Results & Data Vital Signs (Past 12 Hours) Vital Signs Temp Pulse Resp BP Pulse Ox O2 Del Method 06/17/24 10:02 Room Air 06/17/24 08:05 36.7 C 60 18 143/83 H 95 Room Air Coding Level of Care Code 63344 SUB INP/OBS CARE 07/02MIN Diagnoses Non-pressure chronic ulcer of other part of left foot limited to breakdown of skin L97.521 Non-pressure chronic ulcer of other part of right foot limited to breakdown of skin L97.511 Pressure ulcer of right foot, stage 3 L89.893
[2024-06-17 13:45] LABS: BUN Creatinine Ratio 23.9 (10-20); Calcium 8.7 mg/dl (8.6-10.3); Creatinine Clr Calc Pharmacy 53.9 ml/min; Magnesium 1.9 mg/dl (1.7-2.4)
--- NOTE | 2024-06-18 08:51 | Hospitalist Progress Note ---
Date of Service June 18, 2024 Assessment & Plan (1) Recurrent cellulitis of lower extremity: Plan: 78yo male with PMHx of MRSA infection (on doxycycline ppx), prosthetic right knee infection, CAD, CHF, sepsis, rhabdomyolysis, NSTEMI, atrial fibrillation (on Xarelto), chronic venous stasis, peripheral neuropathy, and cellulitis. He has recurrent lower extremity cellulitis infections bilaterally with multiple hospitalizations from this. [facility] acute onset of lower extremity pain/swelling over 24 hours. On admission, patient was somnolent which daughter reports tends to happen to him prior to episodes of bacteremia. Recent [facility] [place]/26 - 05/29 for cellulitis and positive MRSA and Proteus mirabilis ESBL wound culture at that time Dapto/Ertapenem IV continued, ID consulted/plan for 10-14 days with IV ONLY given ESBL. Statin remains on hold while on dapto, CK not elevated On day 8 of therapy 06/18, EOT 06/20 - 06/24 --> would plan 14 day course to ensure resolution but has had significant improvement fell off MAR, did get 06/17, they are resuming and will continue through 06/24 daily WBC wnl, afebrile. BCx neg FINAL MRI no osteo Podiatry consulted for eval CRP/ESR not elevated, weighing against osteo --> per podiatry, no intervention at this time given no osteo but may need amputation at site on lateral foot in future if ongoing issues. continue elevation, compression once able (will need new). Ongoing wound care/podiatry follow up at [facility], elevation of legs Vascular consulted given arterial studies w/ significant stenosis, no planned intervention at this time Pain control, bowel regimen as needed - stable pain w/ recent increase gabapentin (max for renal function) and already on max Cymbalta and reports pain IMPROVING daily Bumex 1mg PO on 06/16 for edema to help, also for K 5.2 w/ K repeat to 4.0 and held AM Bumex for today and will monitor labs in AM w CBC, CMP, CPK, mag prior to resuming to prevent renal impairment as discussed w/ Bill and wanting to ensure w/ ongoing abx staying stable. See prior day note 06/17 re discussion w/ [facility] provider, planning for f/u CM in AM Thursday once called back to see about rehab through [facility]. [facility] is Mr Palacio's ideal choice but has been declined for some unknown reason and not able to appeal decision per discussion w/ CM this past week but maybe once discussed w/ [facility] on Thursday. Ideally once improved rehab and strengthening. Did discuss [facility] liaison for support given depression/possible SI with ongoing medical problems and not doing what he previously enjoyed/missing dog/father committed suicide at age 16 when he was away in the [place]. Declined SSRI for now if able to improve at rehab however can be followed up on. Sent message to [facility] liaison to see if able to visit with Mr Palacio today as well. Abx/exam in AM, likely finalized plan hopefully on Thursday once hearing back from [facility]. Will update daughter in AM or Thursday once finalized as he has been talking to her and I have also updated previously (2) Hyperkalemia: Plan: K 5.2 on labs 06/16, additional Bumex for edema/cellulitis with improvement on exam but held PM entresto as well. Resumed Entresto PM 06/17 for BP/HF and held off resuming Bumex for 06/18 but will check labs in AM/resume if needed (3) Lethargy: Plan: On admission --> resolved and AOx3, do note depression w/ repeat hospitalizations in more than out in 6 months per daughter and discussion with Mr Palacio Supportive care provided, tx as outlined above and hopefully able to get him into acute inpatient rehab as outlined above. He has been very thankful of continued attempts to improve his residential care/conditions (4) Atrial fibrillation: Plan: Rate controlled, remains on xarelto/amio, electrolytes stable and actually w/ hyperkalemia above now resolved. Mag stable 1.9 and avoided additional IV for volume as rates stable/no cp/palpitations Labs in AM to ensure electrolytes remaining stable (5) Pressure ulcer of foot, stage 3: Plan: Daily wound care, compression stockings when healed from current infection but SHOULD HAVE NEW COMPRESSION STOCKINGS at [facility] Continue wound care daily, elevation of foot on pillow Darco boots in room, to use w/ ambuation (6) Chronic diastolic heart failure: Plan: Appears compensated but does have some mild edema, ?2nd to cellulitis Continues on metoprolol, Entresto, Bumex, Jardiance. Added BNP, mild elevation and given swelling, additional 1mg PO bumex on 06/16 also for K 5.2 and held evening entresto but resumed PM 110 for BP control and has been stable. Cr 1.4 following bumex and as was given 3x usual dosing holding off further/on RA/no leg edema and BPs improved and will monitor ?consideration to hold Jardiance w/ leg wounds Monitor volume status/exam/labs in AM (7) History of infection of total joint prosthesis of knee: Plan: Per last ID note, okay to continue doxycycline upon discharge for this specific joint infection however as above, discussed with ID and if no longer sensitive may benefit from suppressive therapy with Bactrim Plan Of note, CTA incidentally noted cystic lesion in the mid body of the pancreas measuring 2.0 cm, which may represent an IPMN. Follow/monitor as indicated outpatient. Dispo: continued inpatient stay on IV abx and planning 14 day course Dapto/Ertapenem. Abx extended to 06/24 for 14day course per discussion w/ ID [facility] to contact [facility] on Thursday once back in office for further discussion/hopeful rehab through [facility] if [facility] remains not an option however appears have submitted for auth for [facility] with secondary insurance [facility] liason contacted by phone and case discussed regarding my concerns for his ongoing mental health/depression with repeat hospitalizations. Updated daughter this past week, will plan to call in AM to touch base/sooner if needed. From [facility] prior to admission Admission and Anticipated Discharge Date Admission Date: June 10, 2024 Supervising Physician Co-Signing Physician Notes The patient was not seen by me. The chart was reviewed. Case discussed with ISREAL Montenegro. Agree with assessment and plan Subjective Eval this afternoon, reading book, up in chair. Mentation clear. Pain controlled. Discussed call to [facility]/waiting call back on Thursday. Did spend decent amount of time with Bill in room today, depressed/tearful at times and declined functional status over past 6 months and was previously riding bike for 8 miles day/missing his dog. Sometimes feels like getting in truck and "just going" then discussed about his father committing suicide at age 16 when he was done in [place] and wondering what his fathers tipping point was and his is frustrated with not having quality of life he previously had. He is missing his appt and is half potted suculants, hoping to go there is unable to go to [facility]/rehab. Did discuss [facility] liason for support, he was agreeable to talk with someone. Did report combination of physcial/emotional/mental health affecting him and is hoping if able to improve disposition/rehab/increased services will help his mental health and avoiding addition of SSRI for now. Question/concerns addressed at this time. Physical Exam 2 Physical Exam: General: 78 male sitting in wheelchair at bedside table, reading his book, NAD and reports pain controlled but further into encounter was tearful talking about his quality of life/reduced physical ability over the past several months Head atraumatic, +facial hair, mmm, trachea midline Resp: even/unlabored, no wheezing/rales and remains on room air, no tachypnea CV: rates controlled, systolic murmur, NO pitting edema, weak pulses GI: +BS, soft/NT no song, voiding in urinal MSK/Neuro: b/l leg cellulitis much improved/resolved, cyanotic appearance/coolness to touch and weak pulses but sensation intact and able to move/ROM intact. multiple dressings to b/l c/d/i, wraps to feet (not currently with darco boots in place but in room) -- dressings not removed today, notable most significant skin finding w/ R lateral foot at base of 5th metatarsal with suspected tendon exposure rather than bone per podiatry Psych: Alert, oriented x 3, cooperative/pleasant but does have depression/tearful at times, support provided Results & Data Results & Data Vital Signs (Past 12 Hours) Vital Signs Temp Pulse Resp BP Pulse Ox O2 Del Method 06/18/24 07:05 36.6 C 60 14 132/79 95 Room Air 06/17/24 21:17 36.8 C 65 17 109/67 94 Room Air Laboratory Results 06/16/24 07:36 06/17/24 13:06 PG Care Time/CCT Total # of Minutes Spent Total Time Spent with Patient: Total time spent is greater than 50% in coordination of care (as documented) at patient's floor/unit and/or counseling patient: Coding Level of Care Code 32071 SUB INP/OBS CARE 50MIN Diagnoses Recurrent cellulitis of lower extremity L03.119 Hyperkalemia E87.5 Lethargy R53.83 Atrial fibrillation I48.91 Pressure injury of right foot, stage 3 L89.893 Laterality: right Chronic diastolic heart failure I50.32 History of infection of total joint prosthesis of knee Z87.39 (5) Pressure ulcer of foot, stage 3 Laterality: right Qualified Code(s): L89.893 - Pressure ulcer of other site, stage 3
[2024-06-18] MEDS: DAPTOmycin 375 MG in SYRINGE 0 ML IV SCH (15:57)
[2024-06-18] MEDS: ERTAPENEM 1000MG 1,000 MG/10 ML SYR IV SCH (15:57)
[2024-06-19 06:35] LABS: Basophils # (auto) 0.03 K/uL (0.00-0.20); Basophils % (auto) 0.5 %; Eosinophils % (auto) 1.6 %; Hematocrit (blood only) 39.2 % (42.0-52.0); Hemoglobin 12.6 g/dl (14.0-18.0); Immature Granulocytes # (auto) 0.02 K/uL (0.01-0.20); Immature Granulocytes % (auto) 0.3 %; Lymphocytes % (auto) 16.4 %; Mean Corpuscular Hemoglobin 30.4 pg (25.0-34.0); Mean Corpuscular Hgb Conc 32.1 g/dL (32.0-36.0); Mean Corpuscular Volume 94.7 fL (80.0-100.0); Mean Platelet Volume 9.5 fL (9.4-12.4); Monocytes # (auto) 0.82 K/uL (0.11-0.59); Monocytes % (auto) 13.5 %; Neutrophils # (auto) 4.11 K/uL (1.40-6.50); Neutrophils % (auto) 67.7 %; Platelet Count 198 K/uL (130-400); RDW Coefficient of Variation 17.5 % (11.5-14.5); Red Blood Count 4.14 M/uL (4.70-6.10); White Blood Count 6.08 K/ul (4.8-10.8)
[2024-06-19 07:04] LABS: Albumin Globulin Ratio 1.5 (0.9-2); Albumin Level 3.5 gm/dl (3.4-5.0); BUN Creatinine Ratio 28.3 (10-20); Bilirubin,Total 0.4 mg/dl (0.2-1.0); Calcium 8.7 mg/dl (8.6-10.3); Creatinine Clr Calc Pharmacy 46.1 ml/min; Globulin 2.3 gm/dl (2.5-4.0); Magnesium 2.2 mg/dl (1.7-2.4); Potassium 4.3 mmol/L (3.5-5.1); Total Protein 5.8 gm/dl (6.0-8.3)
--- NOTE | 2024-06-19 08:59 | Hospitalist Progress Note ---
Date of Service June 19, 2024 Assessment & Plan (1) Recurrent cellulitis of lower extremity: Plan: 78yo male with PMHx of MRSA infection (on doxycycline ppx), prosthetic right knee infection, CAD, CHF, sepsis, rhabdomyolysis, NSTEMI, atrial fibrillation (on Xarelto), chronic venous stasis, peripheral neuropathy, and cellulitis. He has recurrent lower extremity cellulitis infections bilaterally with multiple hospitalizations from this. [facility] onset of lower extremity pain/swelling over 24 hours. On admission, patient was somnolent which daughter reports tends to happen to him prior to episodes of bacteremia. Recent [place] 05/26 - 05/29 for cellulitis and positive MRSA and Proteus mirabilis ESBL wound culture at that time Dapto/Ertapenem IV continued, ID consulted/plan for 10-14 days with IV ONLY given ESBL. Statin remains on hold while on dapto, CK not elevated 45 EOT 04/24 for 14 day course, presently on day 10 of therapy Podiatry consulted - see note, CRP/ESR not elevated/MRI without osteo and no intervention -- notable possible need AKA/site of lateral right foot in future if ongoing issues. Vascular consulted -- no intervention (see note) WBC remains stable/not elevated. No fevers. Blood cx final negative Continue wound care, elevation, compression stockings once able (will need new) Pain control acceptable, continued improvement. Recent inc in gabapentin but has decreased given renal function and can increase if resolved on repeat labs. Bumex/entresto on hold for now given JEFFERY, repeat UA ordered PT/OT rec for rehab. [facility] AM Thursday but notified by CM about P2P due by noon tomorrow for [facility] and have called number for call back for discussion given inpatient more than not in past 6 months, ongoing wounds and need for continued medical oversight by provider given medical complexity and adjustment in medications pending renal function with close wound care follow up and ongoing rehab to improve strength/conditioning prior to returning to independent living to prevent readmission and worsened outcomes in future. (2) Hyperkalemia: Plan: K 5.2 on labs 06/16 resolved with additional bumex and remains stable but w/ Cr 1.6 and placed entresto back on hold to prevent worsened renal function. No CP/palpitations/SOB, 93% on RA and repeating UA but monitor BMP on repeat (3) Lethargy: Plan: On admission --> resolved and AOx3, do note depression w/ repeat hospitalizations in more than out in 6 months per daughter and discussion with Mr Palacio Supportive care provided, tx as outlined above and hopefully able to get him into acute inpatient rehab as outlined above. 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 Reduction in gabapentin for renal function as above (4) Atrial fibrillation: Plan: Rate controlled Xarelto reduced to 15mg for AM given renal functoin but remains on amiodarone/metoprolol Mag/K replete Monitor to inc xarelto if renal function improved (5) Pressure ulcer of foot, stage 3: Plan: Daily wound care, compression stockings when healed from current infection but SHOULD HAVE NEW COMPRESSION STOCKINGS at dc Continue wound care daily, elevation of foot on pillow Darco boots in room, to use w/ ambuation (6) Chronic diastolic heart failure: Plan: Now appearing DRY -Was given bumex 1mg on 06/16 for K 5.2/edema, slight elevation in BNP to help w/edema from cellulitis Entresto placed on hold but then resumed PM 06/17 for BP control but has been on lower side and Cr 1.6 and will hold entresto (got dose this morning) as well as bumex and monitor volume status/renal function in AM. Remains on metoprolol/jardiance at this time. Monitor weight I&Os (7) History of infection of total joint prosthesis of knee: Plan: Per last ID note, okay to continue doxycycline upon discharge for this specific joint infection however as above, discussed with ID and if no longer sensitive may benefit from suppressive therapy with Bactrim (8) JEFFERY (acute kidney injury): Plan: now with Cr to 1.66. CK not elevated on dapto. Making urine, yellow/clear reported. Will ensure not retaining but continue to hold bumex for now, entresto as above to prevent hypotension Renal dose meds -- gabapentin adjustment, xarelto to 15mg dailyfor now but adjust back as able/needed Avoid nephrotoxins BMP in AM (9) Depression: Plan: Lengthy discussion w/ patient 06/18 about father committing suicide/note when in [place] at age 16, increased depression w/ repeat hospitalizations/missing dog/etc (see note 06/18) [facility] li[facility] contacted for discussion, Bill reports they did come by/very supportive Continue supportive care, remains on cymbatla but consider SSRI Plan Of note, CTA incidentally noted cystic lesion in the mid body of the pancreas measuring 2.0 cm, which may represent an IPMN. Follow/monitor as indicated outpatient. Dispo: continued inpatient stay on IV abx, P2P to be completed by noon tomorrow and number contacted for return call. [facility] to call [facility] on thursday for follow up. Updated daughter prior, plan in AM once hear back from P2P per ok from Bill. -- If not able to get into rehab, he wants to return back to [facility] but did discuss need for ongoign medical oversite/medication management and wound care to prevent progression/worsened outcomes and independent living not ideal choice as suspected failure as attempted in the past and just discharged prior to current admission. Also, daughter w/ concerns for safety at independent living/IV administration as attempted in the past. Will need continued wound care, podiatry, +/- vascular 2nd opinion at discharge as well as local ID for f/u PJI/doxycycline use. Admission and Anticipated Discharge Date Admission Date: June 10, 2024 Supervising Physician Co-Signing Physician Notes The patient was not seen by me. The chart was reviewed. Case discussed with ISREAL [place]en[place]. Agree with assessment and plan Subjective Eval this afternoon, up sitting up wheelchair. Pain stable. Discussed renal function, reports making clear/yellow urine, no issues, maybe slightly decreased output. Will bladder scan as needed to ensure not retaining but otherwise hold diuretics. Does not appear overloaded at this time. Scant drainage from lateral right foot wound, dressing changed by nursing Stephen this morning. Encouraged elevation. No fever/chills, chest pain, shortness of breath, abdominal pain at this time. Discussed update to daughter today vs tomorrow, he said to wait til hear back about [facility] and can call in AM. Questions/concerns addressed at this time, support provided. Physical Exam 2 Physical Exam: General: 78 male sitting in wheelchair at bedside table, reading his book, NAD and reports pain controlled but further into encounter was tearful talking about his quality of life/reduced physical ability over the past several months Head atraumatic, +facial hair, mmm, trachea midline Resp: even/unlabored, no wheezing/rales and remains on room air, no tachypnea CV: rates controlled, systolic murmur, NO pitting edema, weak pulses GI: +BS, soft/NT no song, voiding in urinal MSK/Neuro: b/l leg cellulitis much improved/resolved, cyanotic appearance/coolness to touch and weak pulses but sensation intact and able to move/ROM intact. multiple dressings to b/l c/d/i, wraps to feet (not currently with darco boots in place but in room) -- dressings not removed today, notable most significant skin finding w/ R lateral foot at base of 5th metatarsal with suspected tendon exposure rather than bone per podiatry Psych: Alert, oriented x 3, cooperative/pleasant but does have depression/tearful at times, support provided Results & Data Results & Data Vital Signs (Past 12 Hours) Vital Signs Temp Pulse Resp BP Pulse Ox O2 Del Method 06/19/24 03:34 36.7 C 62 18 115/70 93 Room Air 06/19/24 00:06 36.7 C 95/57 L Laboratory Results 06/19/24 05:59 06/19/24 05:59 Mag 2.2 BNP 72 PG Care Time/CCT Total # of Minutes Spent Total Time Spent with Patient: Total time spent is greater than 50% in coordination of care (as documented) at patient's floor/unit and/or counseling patient: Coding Level of Care Code 22959 SUB INP/OBS CARE 3/50MIN Diagnoses Recurrent cellulitis of lower extremity L03.119 Hyperkalemia E87.5 Lethargy R53.83 Atrial fibrillation I48.91 Pressure injury of right foot, stage 3 L89.893 Laterality: right Chronic diastolic heart failure I50.32 History of infection of total joint prosthesis of knee Z87.39 JEFFERY (acute kidney injury) N17.9 Depression F32.A (5) Pressure ulcer of foot, stage 3 Laterality: right Qualified Code(s): L89.893 - Pressure ulcer of other site, stage 3
[2024-06-19] MEDS: GABAPENTIN 600 MG TAB PO SCH (10:02)
[2024-06-19] MEDS: GABAPENTIN 400 MG CAP PO SCH (13:46)
[2024-06-19 15:02] LABS: Appearance Urine Clear (Clear); Bacteria Urine Automated None Seen (None Seen); Bilirubin Urine Negative (Negative); Blood Urine Negative (Negative); Color Urine Yellow; Epithelial Cell Urine Auto 0-2 /hpf (0-2); Glucose Urine UA 3+ (Negative); Ketones Urine Trace (Negative); Leukocyte Esterase Urine Negative (Negative); Nitrite Urine Negative (Negative); Protein Urine Trace (Negative); RBC Urine Automated 0-2 /hpf (0-2); Specific Gravity Urine 1.025 (1.000-1.030); Urobilinogen Urine Negative (Negative); WBC Urine Automated 0-5 /hpf (0-5)
[2024-06-19] MEDS: SODIUM CHLORIDE 0.9% 250 ML IV ONE (15:50)
[2024-06-20 06:10] LABS: Hematocrit (blood only) 38.3 % (42.0-52.0); Hemoglobin 12.5 g/dl (14.0-18.0); Mean Corpuscular Hemoglobin 30.9 pg (25.0-34.0); Mean Corpuscular Hgb Conc 32.6 g/dL (32.0-36.0); Mean Corpuscular Volume 94.6 fL (80.0-100.0); Platelet Count 216 K/uL (130-400); RDW Coefficient of Variation 17.1 % (11.5-14.5); Red Blood Count 4.05 M/uL (4.70-6.10); White Blood Count 6.54 K/ul (4.8-10.8)
[2024-06-20 06:37] LABS: BUN Creatinine Ratio 27.1 (10-20); Calcium 8.8 mg/dl (8.6-10.3); Creatinine Clr Calc Pharmacy 40.9 ml/min; Magnesium 2.2 mg/dl (1.7-2.4); Potassium 5.4 mmol/L (3.5-5.1)
--- NOTE | 2024-06-20 07:34 | Hospitalist Progress Note ---
Date of Service June 20, 2024 Assessment & Plan (1) Recurrent cellulitis of lower extremity: Plan: 78yo male with PMHx of MRSA infection (on doxycycline ppx), prosthetic right knee infection, CAD, CHF, sepsis, rhabdomyolysis, NSTEMI, atrial fibrillation (on Xarelto), chronic venous stasis, peripheral neuropathy, and cellulitis. He has recurrent lower extremity cellulitis infections bilaterally with multiple hospitalizations from this. He presented on 06/10/24 [facility] of the [facility] care clinic for acute onset of lower extremity pain/swelling over 24 hours. On admission, patient was somnolent which daughter reports tends to happen to him prior to episodes of bacteremia. [place] 05[place] - 05/29 for cellulitis and positive MRSA and Proteus mirabilis ESBL wound culture at that time Dapto/Ertapenem IV continued, ID consulted/plan for 10-14 days with IV ONLY given ESBL. EOT 04/24 for 14 day course Statin remains on hold while on dapto, CK not elevated 45 WBC remains wnl, no fevers. Blood cx final negative Continue wound care, elevation, compression stockings once able ([facility] new at [facility]) Pain control acceptable, continued improvement. Podiatry consulted/following - see note, CRP/ESR not elevated/MRI without osteo and no intervention - notable possible need AKA/site of lateral right foot in future if ongoing issues. Vascular consulted - no intervention (see note prior/arterial duplex w/ concerns for stenosis) Bumex/entresto on hold for now given JEFFERY, repeat UA ordered which noted hyaline casts c/w hydration on exam and 250cc bolus provided as also had some hypotension but no granular casts noted but did have decreased UOP/no retention noted BUN/Cr slightly worse today 51/1.88 however continues with bumex/enstresto on hold and NS @ 80cc/hr x 500cc ordered. however Cr 1.88 today and dehydrated on exam PT/OT rec for rehab however P2P done 06/19 and denied for [facility]. [facility] and planned for [facility] possible but discussed w/ CM today patient would like to have daughter/himself offered opporuntiy for appeal if possible. CM notified/to follow up. See prior day notes for reasons/concerns to go to [facility] rather than back to independent living. (2) JEFFERY (acute kidney injury): Plan: slightly worse today and suspected 2nd to poor PO intake/bumex/entresto w/ soft BP. UA w/o granular casts and 250cc NS provided on 06/19 and will order NS @ 80cc/hr for today and continue with bumex/entresto on hold UOP increased and clear yellow in urinal 06/20, reports increased UOP and no retention reported Gabapentin reduced for renal function as well as xarelto and will plan to avoid nephrotoxins as able -- can adjust back gabapentin/xarelto in AM if renal function improved on repeat renal function testing (3) Hyperkalemia: Plan: Prior 5.2 resolved with additional dose of bumex x 1 however suspect worsened today due to hypotension/BP and resumption in entresto IVF hydration as above and will monitor on repeat but no CP/SOB reported and no palpitations. Changing diet to low K and BMP in AM (4) Atrial fibrillation: Plan: Rate controlled, on metoprolol, amiodarone Xarelto reduced to 15mg daily given renal function K as above, mag stable 2.2 No CP/Palpitations/SOB (5) Pressure ulcer of foot, stage 3: Plan: Daily wound care, compression stockings when healed from current infection but SHOULD [facility] COM[facility] STOCKINGS at [facility] Continue wound care daily, elevation of foot on pillow Darco boots in room, to use w/ ambulation (6) Chronic diastolic heart failure: Plan: Now appearing DRY -Was given bumex 1mg on 06/16 for K 5.2/edema, slight elevation in BNP to help w/edema from cellulitis Entresto placed on hold but then resumed PM 06/17 for BP control but has been on lower side and Cr 1.6 --> now 1.88 and bumex/entresto on hold (notable got AM entresto on 06/19 prior to being held) Continue metoprolol for afib/HR, Jardiance Monitor I&O, weights Monitor to resume bumex if needed but suspect able to hold off for another day or two, decreased PO intake from depression and encouraged PO but 500cc NSS ordered for 06/20 (7) History of infection of total joint prosthesis of knee: Plan: Per last ID note, okay to continue doxycycline upon discharge for this specific joint infection however as above, discussed with ID and if no longer sensitive may benefit from suppressive therapy with Bactrim (8) Depression: Plan: Lengthy discussion w/ patient 06/18 about father committing suicide/note when in [place] at age 16, increased depression w/ repeat hospitalizations/missing dog/etc (see note 06/18) [facility] liason contacted for discussion, Bill reports they did come by/very supportive and discussed with nursing can have them come back/as needed but continues with supportive care Continues on cymbalta, max dose. Monitor for SSRI if agreeable but declined prior. No SI/HI but suspect if ongoing hospitalizations may need to be closely monitored Plan Of note, CTA incidentally noted cystic lesion in the mid body of the pancreas measuring 2.0 cm, which may represent an IPMN. Follow/monitor as indicated outpatient. Dispo: from [facility] and suspect if no IPR want to go home (confirmed with patient) however do have significant concerns for poor outcomes without continued close supervision as stressed to insurance [facility] [employer] for P2P last evening. Continued inpatient stay on IV abx, 14 day course. CM following/family appeal for [facility] possible pending call to daughter but possible [facility] bed. Will need continued wound care, podiatry, ID at [facility] (f/u discussion about Doxy use/hx PJI if needing to switch to bactrim for chronic suppressive therapy), +/-vascular 2nd opinion outpatient Admission and Anticipated Discharge Date Admission Date: June 10, 2024 Subjective Eval this afternoon, resting in bed/wanted to sleep this morning. Pain controlled with ordered medications, notable depressed affect today/[facility] denial. Discussed [facility] bed however discussed if he/daughter would want to try family appeal if offered, he reports he would like to try. CM notified to f/u. Remains on IV abx, JEFFERY/K 5.4 today and IVF ordered/diuretics on hold -- urine in urinal light yellow/clear, reports improvement in output and will continue with diuretics on hold/entresto for now and encouraged PO. No CP/SOB reported, on RA. NO abdominal pain/nausea. Questions/concerns addressed at this time. Physical Exam 2 Physical Exam: General: 78 male laying in bed, NAD, flat affect/more depressed today but NAD/support provided Head atraumatic, +facial hair, mm slightly dry, trachea midline Resp: even/unlabored, no wheezing/rales and remains on room air, no tachypnea CV: rates controlled, systolic murmur, NO pitting edema, weak pulses/doppler GI: +BS, soft/nt, slight distension no song, voiding in urinal -- increased UOP/clear yellow in color MSK/Neuro: b/l leg cellulitis much improved, less erythema, does have cyanotic appearance but feels warmer today, dressing c/d/i to multiple ulcerations/lesions, no significant drainage from RIGHT lateral ulceration at base 5th metatarsal today Psych: alert/oriented, fatigued/depressed appearing, cooperative/thankful for exam Results & Data Results & Data Vital Signs (Past 12 Hours) Vital Signs Temp Pulse Resp BP Pulse Ox O2 Del Method 06/19/24 21:55 Room Air 06/19/24 20:00 36.8 C 60 18 110/64 95 Room Air Laboratory Results 06/20/24 05:36 06/20/24 05:36 Mag 2.2 PG Care Time/CCT Total # of Minutes Spent Total Time Spent with Patient: Total time spent is greater than 50% in coordination of care (as documented) at patient's floor/unit and/or counseling patient: Coding Level of Care Code 72756 SUB INP/OBS CARE 3/50MIN Diagnoses Recurrent cellulitis of lower extremity L03.119 JEFFERY (acute kidney injury) N17.9 Hyperkalemia E87.5 Atrial fibrillation I48.91 Pressure injury of right foot, stage 3 L89.893 Laterality: right Chronic diastolic heart failure I50.32 History of infection of total joint prosthesis of knee Z87.39 Depression F32.A (5) Pressure ulcer of foot, stage 3 Laterality: right Qualified Code(s): L89.893 - Pressure ulcer of other site, stage 3
[2024-06-20] MEDS: RIVAROXABAN 15 MG TAB PO SCH (08:33)
[2024-06-20] MEDS: GABAPENTIN 300 MG CAP PO SCH (08:48)
[2024-06-20] MEDS: SODIUM CHLORIDE 0.9% 500 ML IV SCH (09:25)
--- NOTE | 2024-06-20 10:46 | Podiatry Progress Note ---
Date of Service June 20, 2024 Assessment & Plan (1) Non-pressure chronic ulcer of other part of left foot limited to breakdown of skin: (2) Non-pressure chronic ulcer of other part of right foot limited to breakdown of skin: (3) Pressure ulcer of right foot, stage 3: Plan -Continued offloading of the right lateral foot wound with 2 pillows behind the right calf/ankle. Continue to elevate bilateral lower extremity while at rest. Minimize time with feet in dependent position. -Bilateral foot wound dressings changed. Continue once daily dressing changes cleansing with saline and dressing with Aquacel and a dry sterile dressing. Please avoid occlusive dressings over foot wounds. -Okay to continue weightbearing in postop shoes. -No indication for debridement. No plan for podiatric surgical intervention. Thank for consulting podiatry date in the case care of this patient. Will continue to follow his progress while he remains in house and recommend continued follow-up at the wound care center following discharge. Ongoing care of patient's lower extremity wounds following discharge should focus on regular elevation of the limbs whenever possible at or above the level of heart and graduated compression stockings throughout the day. Admission and Anticipated Discharge Date Admission Date: June 10, 2024 Subjective Patient seen resting comfortably in hospital bed. Denies any issues over the weekend. His eyes nausea vomiting fever chills. Reports persistent mild discomfort to the bilateral foot which is especially noticeable at night. Dressing changes have continued throughout the weekend once daily. Patient continues to elevate bilateral foot off of the bed with pillow behind the calf/ankle. Continues weightbearing in bilateral Darco shoe as instructed without issue. Physical Exam Physical Exam: Const: Appears well developed and well nourished. No signs of acute distress present. No signs of acute distress. Patient is awake and alert and asked is a good historian. CV: Extremities: +1 pitting edema to the bilateral foot and ankle. Capillary refill time is less than 3-4 seconds all digits of the bilateral foot. Posterior tibial and dorsalis pedis pulses are non-palpable bilateral. Lymph: No palpable or visible regional lymphadenopathy. Skin: No scars, rashes, lesions or ecchymosis. Neuro: Sensation intact to light touch in all areas of the foot and ankle. Psych: Mood/Affect: Mood is normal. Affect is normal. Cognition: Orientation is intact to person, place and time. Focused lower extremity musculoskeletal exam: Ankles: Dressing in place to the bilateral ankle covering venous stasis ulcerations. +1 pitting edema to the bilateral ankle. Feet: Overall character in the bilateral foot is improved with creased warmth return of skin color notable blanching. Soft tissue surrounding the wounds in the distal foot is no longer cyanotic. Loss of hair growth bilateral foot and distal leg. Right lateral foot: Stage III pressure ulcer: Ovoid wound overlying the base of the fifth metatarsal laterally. Wound has become more superficial since last seen with persistent scant drainage to the dressing which was placed yesterday. Decreased discomfort to the periwound soft tissue's. No focal increase in erythema or edema. Medial right second toe: Small well-circumscribed superficial ulceration with granular wound bed. No active drainage. Circumferential epithelialization to the borders noted. Right great toe: No periwound erythema or edema. Wound bed is covered in a layer of slough which is gently removed and mechanically exposing underlying healthy granular wound bed. Minimal drainage to dressing. Left great toe: Minimal drainage to the Aquacel dressing noted. Slough overlying wound bed is easily removed with a 4 x 4 gauze. Underlying wound bed is healthy and granular. Wound does not probe or track in any direction. No frankly exposed bone or nailbed at this time. Results & Data Results & Data Vital Signs (Past 12 Hours) Vital Signs Temp Pulse Resp BP Pulse Ox O2 Del Method 06/20/24 08:00 36.3 C L 64 13 154/94 H 94 Room Air Coding [place] [address] SUB INP/OBS CARE 07/02MIN Patient Type Established Diagnoses Non-pressure chronic ulcer of other part of left foot limited to breakdown of skin L97.521 Non-pressure chronic ulcer of other part of right foot limited to breakdown of skin L97.511 Pressure ulcer of right foot, stage 3 L89.893
[2024-06-21 07:33] LABS: BUN Creatinine Ratio 26.4 (10-20); Calcium 8.9 mg/dl (8.6-10.3); Creatinine Clr Calc Pharmacy 53.5 ml/min; Potassium 4.8 mmol/L (3.5-5.1)
--- NOTE | 2024-06-21 20:19 | Hospitalist Progress Note ---
Date of Service June 21, 2024 Assessment & Plan (1) Recurrent cellulitis of lower extremity: Plan: 78yo male with PMHx of MRSA infection (on doxycycline ppx), prosthetic right knee infection, CAD, CHF, sepsis, rhabdomyolysis, NSTEMI, atrial fibrillation (on Xarelto), chronic venous stasis, peripheral neuropathy, and cellulitis. He has recurrent lower extremity cellulitis infections bilaterally with multiple hospitalizations from this. He presented on 06/10/24 at the behest of the wound care clinic for acute onset of lower extremity pain/swelling over 24 hours. On admission, patient was somnolent which daughter reports tends to happen to him prior to episodes of bacteremia. Recent [place] admission 05/26 - 05/29 for cellulitis and positive MRSA and Proteus mirabilis ESBL wound culture at that time Dapto/Ertapenem IV continued, ID consulted/plan for 10-14 days with IV ONLY given ESBL. EOT 04/24 for 14 day course Statin remains on hold while on dapto, CK not elevated 45 WBC remains wnl, no fevers. Blood cx final negative Continue wound care, elevation, compression stockings once able (will need new at de) Pain control acceptable, continued improvement. Podiatry consulted/following - see note, CRP/ESR not elevated/MRI without osteo and no intervention - notable possible need AKA/site of lateral right foot in future if ongoing issues. Vascular consulted - no intervention (see note prior/arterial duplex w/ concerns for stenosis) PT/OT rec for rehab however P2P done 06/19 and [facility] but discussed w/ CM today p atient would like to have daughter/himself offered opporuntiy for appeal if possible. CM notified/to follow up. See prior day notes for reasons/concerns to go to [facility] rather than back to independent living. (2) JEFFERY (acute kidney injury): Plan: JEFFERY suspected secondary to poor p.o. intake, as well as Bumex/Entresto Bumex/Entresto on hold Gabapentin and Xarelto reduced for renal functionadjust back when renal function improves Repeat UA ordered which noted hyaline casts c/w hydration on exam and 250cc bolus provided as also had some hypotension but no granular casts noted but did have decreased UOP/no retention noted Has received IV fluids. Currently, euvolemic on exam. Will defer additional IV fluids and encourage p.o. hydration Avoid nephrotoxins as able Improving, with creatinine 1.44 today. Continue to monitor (3) Hyperkalemia: Plan: Now resolved Continue low K diet and monitor BMP (4) Atrial fibrillation: Plan: Rate controlled, on metoprolol, amiodarone Xarelto reduced to 15mg daily given renal function K as above, mag stable 2.2 No CP/Palpitations/SOB (5) Pressure ulcer of foot, stage 3: Plan: Daily wound care, compression stockings when healed from current infection but SHOULD HAVE NEW COMPRESSION STOCKINGS at de Continue wound care daily, elevation of foot on pillow Darco boots in room, to use w/ ambulation (6) Chronic diastolic heart failure: Plan: Now appearing DRY -Was given bumex 1mg on 06/16 for K 5.2/edema, slight elevation in BNP to help w/edema from cellulitis Entresto placed on hold Continue metoprolol for afib/HR, Jardiance Monitor I&O, weights Monitor to resume bumex if needed but suspect able to hold off for another day, decreased PO intake from depression and encouraged PO (7) History of infection of total joint prosthesis of knee: Plan: Per last ID note, okay to continue doxycycline upon discharge for this specific joint infection however as above, discussed with ID and if no longer sensitive may benefit from suppressive therapy with Bactrim (8) Depression: Plan: Lengthy discussion w/ patient 06/18 about father committing suicide/note when in [place] at age 16, increased depression w/ repeat hospitalizations/missing dog/etc (see note 06/18) [facility] contacted for discussion, Bill reports they did come by/very supportive and discussed with nursing can have them come back/as needed but continues with supportive care Continues on cymbalta, max dose. Monitor for SSRI if agreeable but declined prior. No SI/HI but suspect if ongoing hospitalizations may need to be closely monitored Plan Of note, CTA incidentally noted cystic lesion in the mid body of the pancreas measuring 2.0 cm, which may represent an IPMN. Follow/monitor as indicated outpatient. Dispo: from [facility] independent living and suspect if no IPR want to go home (confirmed with patient) however do have significant concerns for poor outcomes without continued close supervision as stressed to insurance company for P2P last evening. Continued inpatient stay on IV abx, 14 day course. CM following/family appeal for [facility] possible pending call to daughter but possible [facility] bed. Will need continued wound care, podiatry, ID at [facility] (f/u discussion about Doxy use/hx PJI if needing to switch to bactrim for chronic suppressive therapy), +/-vascular 2nd opinion outpatient Admission and Anticipated Discharge Date Admission Date: June 10, 2024 Supervising Physician Co-Signing Physician Notes Attending Attestation - Chart reviewed, care plan d/w ISREAL Fields. I agree w/ the lubin components of her documentation. Shaheen Vance MD Subjective Patient seen and evaluated in bedside chair. His spirits are low and patient appears depressed with ongoing hospital stay. We discussed that he has been approved for [facility], however family proceeds with family appeal for [employer], then be approval for [facility] will be canceled. Patient states he needs to talk with his children about what to do. We discussed that his JEFFERY is improving, but not yet returned to baseline. Patient states he will drink plenty of oral fluids today. He denies any acute complaints or concerns at this time. Physical Exam Physical Exam: General: No acute distress, nondiaphoretic, well-developed, well-nourished. In low spirits today. Cardiac: Regular rate and rhythm without murmurs gallops or rubs. Pulm: Diminished at bases but otherwise clear to auscultation bilaterally without wheezes, rales or rhonchi. No respiratory distress. 95% on room air. Abdominal: Soft, nontender, nondistended. Bowel sounds present. Neuro: A&O x3. No focal neurological deficits. Extremities: Bilateral lower extremity cellulitis much improved. Swelling significantly reduced, less erythema. Multiple ulcerations/lesions addressed clean, dry, intact. Weak pedal pulses bilaterally. Results & Data Results & Data Vital Signs (Past 12 Hours) Vital Signs Temp Pulse Resp BP Pulse Ox O2 Del Method 06/21/24 15:43 98.1 F 78 18 148/88 H 92 Room Air Laboratory Results Reviewed BMP PG Care Time/CCT Total # of Minutes Spent Total Time Spent with Patient: Total time spent is greater than 50% in coordination of care (as documented) at patient's floor/unit and/or counseling patient: Coding Level of Care Code 02915 SUB INP/OBS CARE MIN Diagnoses Recurrent cellulitis of lower extremity L03.119 JEFFERY (acute kidney injury) N17.9 Hyperkalemia E87.5 Atrial fibrillation I48.91 Pressure injury of right foot, stage 3 L89.893 Laterality: right Chronic diastolic heart failure I50.32 History of infection of total joint prosthesis of knee Z87.39 Depression F32.A (5) Pressure ulcer of foot, stage 3 Laterality: right Qualified Code(s): L89.893 - Pressure ulcer of other site, stage 3
[2024-06-22 07:17] LABS: Calcium 8.6 mg/dl (8.6-10.3); Creatinine Clr Calc Pharmacy 62.5 ml/min; Potassium 4.2 mmol/L (3.5-5.1)
--- NOTE | 2024-06-22 11:34 | Discharge Summary ---
Discharge Summary Date of Service June 22, 2024 Principal Dx & Hospital Course #1 = Principal Diagnosis (1) Recurrent cellulitis of lower extremity: 78yo male with PMHx of MRSA infection (on doxycycline ppx), prosthetic right knee infection, CAD, CHF, sepsis, rhabdomyolysis, NSTEMI, atrial fibrillation (on Xarelto), chronic venous stasis, peripheral neuropathy, and cellulitis. He has recurrent lower extremity cellulitis infections bilaterally with multiple hospitalizations from this. He presented on 06/10/24 at the [facility] the wound care clinic for acute onset of lower extremity pain/swelling over 24 hours. On admission, patient was somnolent which daughter reports tends to happen to him prior to episodes of bacteremia. Recent [place] admission 05/26 - 05/29 for cellulitis and positive MRSA and Proteus mirabilis ESBL wound culture at that time Dapto/Ertapenem IV continued, ID consulted/plan for 10-14 days with IV ONLY given ESBL. End date of treatment - 06/24/23 (total 14 day course) Statin remains on hold while on dapto, CK not elevated 45 WBC remains wnl, no fevers. Blood cx final negative Continue wound care, elevation, compression stockings once able (new compression stockings provided on discharge) Pain control acceptable, continued improvement Podiatry consulted/following - see note, CRP/ESR not elevated/MRI without osteo and no intervention - notable possible need AKA/site of lateral right foot in future if ongoing issues. Vascular consulted - no intervention (see note prior/arterial duplex w/ concerns for stenosis) PT/OT rec for rehab however P2P done 06/19 and [facility] for [facility] but discussed w/ CM today patient would like to have daughter/himself offered opporuntiy for appeal if possible. CM notified/to follow up. See prior day notes for reasons/concerns to go to [facility] rather than back to independent living. (2) History of infection of total joint prosthesis of knee: Per IDs recommendations, okay to continue doxycycline 100 mg twice daily upon completion of IV antibiotics Recommend follow-up with local ID, if patient is no longer sensitive to doxycycline, he may benefit from suppressive therapy with Bactrim (3) Depression: Lengthy discussion about father committing suicide/note when in [place] at age 16, increased depression w/ repeat hospitalizations/missing dog/etc (see note 06/18) [facility] liason contacted for discussion, Bill reports they did come by/very supportive and discussed with nursing can have them come back/as needed but continues with supportive care Continues on cymbalta, max dose. Monitor for SSRI if agreeable but declined prior No SI/HI but suspect if ongoing hospitalizations may need to be closely monitored (4) JEFFERY (acute kidney injury): JEFFERY suspected secondary to poor p.o. intake secondary to depression while hospitalized Now resolved. Continue to encourage oral fluid intake (5) Atrial fibrillation: Rate controlled, on metoprolol, amiodarone Continue Xarelto (6) Pressure ulcer of foot, stage 3: Daily wound care, compression stockings when healed from current infection Continue wound care daily, elevation of foot on pillow Darco boots in room, to use w/ ambulation (7) Chronic diastolic heart failure: Continue metoprolol, Jardiance, Entresto, Bumex Plan Of note, CTA incidentally noted cystic lesion in the mid body of the pancreas me asuring 2.0 cm, which may represent an IPMN. Follow/monitor as indicated outpatient. Dispo: Discharged to [facility] for continued IV antibiotics, wound care, rehab Admission HPI Per Admitting Provider Lowell is a pleasant 78yo male with PMHx of MRSA infection (on doxycycline ppx), prosthetic right knee infection, CAD, CHF, sepsis, rhabdomyolysis, NSTEMI, atrial fibrillation (on Xarelto), chronic venous stasis, peripheral neuropathy, and cellulitis. Patient presents with daughter (Diana) at bedside who provides most the history. Daughter reports that he has been somnolent/lethargic and sleeping more over the past 24 hours, which commonly occurs prior to episodes of sepsis. He also has had an acute worsening of foot pain, swelling, and erythema. Daughter reports he has been struggling with transfers more than usual, and so she was concerned that worsening infection could be brewing. Patient was recently discharged from [place] for a cellulitis on 05/29; reports he took Bactrim for 7 days, then switch back to doxycycline for his chronic suppressive therapy. He takes Tylenol scheduled TID for his lower extremity pain, as well as gabapentin. He has not been taking oxycodone as he tries to avoid it. He rates his pain 7/10 at present, localized in the lower extremities/feet bilaterally. He characterizes it as a burning pain with an occasional sharp shooting pain up his legs. Daughter called the wound clinic today, and based on reported symptoms and acute worsening, they recommended he come to the ED. He does have a history of several MRSA infections, and MRSA bacteremia. This has been an ongoing issue recurrent hospitalizations, and taking a significant toll on the patient. While he does endorse depression, he denies any thoughts of self-harm. Patient denies smoking, tobacco use. Patient's vitals are stable at time of admission. ED course: Ertapenem 1000 mg IV Daptomycin 550 mg IV ROS: Patient endorses burning/pain/erythema/swelling in the feet and lower extremities bilaterally, and generalized fatigue Patient denies fever, chills, night sweats, chest pain, chest palpitations, pleuritic CP, SOB, cough, abdominal pain, changes in urinary/bowel habits, or N/V/D. Discharge Exam General: No acute distress, nondiaphoretic, well-developed, well-nourished. In low spirits today. Cardiac: Regular rate and rhythm without murmurs gallops or rubs. Pulm: Diminished at bases but otherwise clear to auscultation bilaterally without wheezes, rales or rhonchi. No respiratory distress. 95% on room air. Abdominal: Soft, nontender, nondistended. Bowel sounds present. Neuro: A&O x3. No focal neurological deficits. Extremities: Bilateral lower extremity cellulitis much improved. Swelling significantly reduced, less erythema. Multiple ulcerations/lesions addressed clean, dry, intact. Weak pedal pulses bilaterally. Discharge Plan Discharge Items Patient Disposition: Transfer Inpatient Rehab Fac Reason For Visit: FOOT PAIN Discharge Diagnosis: Recurrent cellulitis of lower extremities Condition on Discharge: Good Activity: Per Instructions section Non-emergency contact: Primary Care Provider and Specialist Call non-emergency contact if: you have any medication questions, your symptoms worsen, your pain is not controlled, your wound has increased redness and your wound has increased drainage Follow-up/Referrals: Danny Soliman DO [Primary Care Provider] - (Follow-up in 1-2 weeks) Diet: Heart Healthy and Low Potassium (2gm) Addtl Attending Provider Instructions: Bill, You were admitted to the hospital with recurrent lower extremity cellulitis infections. You were treated with IV antibiotics while in the hospital and will continue IV antibiotics until 06/24/2024, per infectious diseases recommendations. You were evaluated by podiatry who did not feel that any podiatric surgical intervention was needed. You were also evaluated by vascular surgery, who did not feel that any vascular surgical intervention was needed. You had an acute kidney injury (JEFFERY), most likely due to poor oral intake. You received IV fluids and this resolved and your kidney function has returned to normal. You are being discharged to [facility] for completion of your IV antibiotics, continued wound care, and rehab. Upon discharge from the hospital: * Continue daptomycin 375 mg IV daily through 06/24/2024. * Continue ertapenem 1 g IV daily through 06/24/2024. * Resume doxycycline 100 mg PO twice daily on 06/25/2024 after completion of IV antibiotic treatment. * Follow recommendations from podiatry and wound care as listed below. * Continue to drink plenty of fluids to prevent acute kidney injury. * Continue wound care as directed. * Follow-up with infectious disease at [facility]. * Follow-up with your PCP in 1-2 weeks. Please return to the hospital if you experience any of the following: Worsening/return of your lower extremity infections, fever of 100.5 F or higher, confusion, somnolence, chest pain, shortness of breath, lightheadedness, passing out, or any other symptoms concerning for you. It was a pleasure taking care of you while you were in the hospital, Annia Fields PA-C Addtl Commercial Leasing Manager Provider Instructions: FROM PODIATRY: -Continued offloading of the right lateral foot wound with 2 pillows behind the right calf/ankle. Continue to elevate bilateral lower extremity while at rest. Minimize time with feet in dependent position. -Continue bilateral foot wound dressings once daily dressing changes cleansing with saline and dressing with Aquacel and a dry sterile dressing. Please avoid occlusive dressings over foot wounds. -Okay to continue weightbearing in postop shoes. -Ongoing care of patient's lower extremity wounds following discharge should focus on regular elevation of the limbs whenever possible at or above the level of heart and graduated compression stockings throughout the day. FROM WOUND CARE: -To left and right toe woundsclean with saline. Apply strips of Aquacel Ag between toes, over wounds. Cover with gauze and secure with Kerlix. Change every day and as needed. -To right knee area x 2 wounds and left lower legapply Skin-Prep to periphery. Allow to dry. Cover with OPTi foam. Change every 3 days and as needed. -To left knee, right lower leg, right lateral footclean. Apply Skin-Prep to periphery. Allowed to dry. Cover with Aquacel Ag and OPTi foam. Change every day and as needed. Pending Studies at Discharge: No Stand-Alone Forms: My [facility] Skilled Items Patient informed of condition?: Yes DNR: No Discharge Level of Care: Acute rehab Communicable Disease: No Discharge Prognosis: Stable Lines: None Urinary Catheter: No Medications and DC Order Prescriptions: New ertapenem 1 gram recon soln 1 g IV DAILY Qty: 3 0RF Continued duloxetine 60 mg capsule,delayed release(DR/EC) 60 mg PO QAM Qty: 90 3RF Jardiance 10 mg tablet 10 mg PO DAILY Qty: 90 3RF ferrous sulfate 325 mg (65 mg iron) tablet 325 mg PO DAILY Qty: 90 3RF Entresto 24-26 mg tablet 1 tab PO BID Qty: 180 3RF tamsulosin 0.4 mg capsule 0.4 mg PO DAILY Qty: 90 3RF gabapentin 600 mg tablet 600 mg PO TID 30 Days Qty: 90 3RF Xarelto 20 mg tablet 20 mg PO DAILY Rx Instructions: must administer with evening meal start 3 days after last eliquis dose. aspirin [Adult Low Dose Aspirin] 81 mg tablet,delayed release (DR/EC) 81 mg PO QAM Hold Instructions: Resume on 02/23/23. until PCP/surgery followup yguseoif-enddmni-tuhn-lutein Tablet 1 tab PO QAM cyanocobalamin (vitamin B-12) 500 mcg Tablet 1,000 mcg PO QAM Qty: 30 0RF thiamine HCl (vitamin B1) 100 mg tablet 100 mg PO QAM nitroglycerin 0.4 mg Tablet, Sublingual 0.4 mg sublingual DIRECTED PRN (Reason: chest pin) vitamin E 268 mg (400 unit) Capsule 268 mg PO DAILY Qty: 0 Rx Instructions: strength not listed mirtazapine 30 mg tablet 30 mg PO HS cholecalciferol (vitamin D3) 10 mcg (400 unit) Tablet 20 mcg PO DAILY acetaminophen 325 mg tablet 975 mg PO Q8H PRN (Reason: mild pain,fever, or headache) latanoprost 0.005 % Drops 1 drp OPB QPM Rx Instructions: into both eyes nystatin 100,000 unit/gram powder 1 applic TOPICAL DAILY B Complex Plus Vitamin C 49-23-50-5-300 mg Capsule 1 cap PO DAILY diphenhydramine HCl [Benadryl] 25 mg Capsule 25 mg PO Q6H PRN (Reason: itching) Qty: 10 0RF metoprolol succinate 25 mg Tablet Extended Release 24 Hr 25 mg PO QAM Qty: 30 0RF melatonin 3 mg Tablet 6 mg PO HS folic acid 1 mg Tablet 1 mg PO DAILY omeprazole 20 mg Tablet,Delayed Release (Dr/Ec) 20 mg PO DAILY Dom 7-7-1.5 gram Powder In Packet 1 ea PO BID bumetanide 0.5 mg tablet 0.5 mg PO DAILY Rx Instructions: one tablet daily, with 1 additional tablet daily prn for weight gain or shortness of breath sennosides 8.6 mg Tablet 8.6 mg PO BID omega 8-xzt-osy-fish oil 900-1,400 mg Capsule,Delayed Release(Dr/Ec) 1 cap PO DAILY Held pravastatin 40 mg tablet 40 mg PO HS Hold Instructions: Resume on 02/09/24. Hold while on daptomycin Rx Instructions: TAKE 1 TABLET BY MOUTH ONCE DAILY doxycycline hyclate 100 mg capsule 100 mg PO BID Hold Instructions: Provider's Order - resume after completion of bactrim Discharge Orders: Discharge Order (Routine); Ordered 06/22/24 Ordered By: Annia Fields Admission Data Admit Date/Time: 06/10/24 14:25 Attending Provider: Shaheen Vance Admit Provider: Ben Clark Primary Care Provider: Danny Soliman Other Providers: [facility]; Tirso Fields; Clint Estrada; IRB Approved Study,Lee Ann; Gavi Rich Hospital Stay Data Consultations 06/10/24 13:25 ED Decision to Admit Stat 06/10/24 17:08 Consult Infectious Diseases Routine 06/14/24 08:27 Consult Podiatry Routine 06/14/24 17:57 Consult Vascular Surgery Routine 06/18/24 14:11 Consult Behavioral Health Liaison Routine Diagnostic Imagining Performed 06/10/24 15:06 CTA abd aorta runof w con [CT ang AA runof w inc wo ifdon] Stat 06/13/24 10:56 MRI Foot [MR foot LT wo/w con] Urgent MRI Foot [MR foot RT wo/w con] Urgent 06/14/24 13:50 US arterial duplex LE BI Routine Pending Results Patient Have Any Pending Studies at Discharge: No Discharge Instructions Given to Patient (Per Discharging Provider) Bill, You were admitted to the hospital with recurrent lower extremity cellulitis infections. You were treated with IV antibiotics while in the hospital and will continue IV antibiotics until 06/24/2024, per infectious diseases recommendations. You were evaluated by podiatry who did not feel that any podiatric surgical intervention was needed. You were also evaluated by vascular surgery, who did not feel that any vascular surgical intervention was needed. You had an acute kidney injury (JEFFERY), most likely due to poor oral intake. You received IV fluids and this resolved and your kidney function has returned to normal. You are being discharged to [facility] for completion of your IV antibiotics, continued wound care, and rehab. Upon discharge from the hospital: * Continue daptomycin 375 mg IV daily through 06/24/2024. * Continue ertapenem 1 g IV daily through 06/24/2024. * Resume doxycycline 100 mg PO twice daily on 06/25/2024 after completion of IV antibiotic treatment. * Follow recommendations from podiatry and wound care as listed below. * Continue to drink plenty of fluids to prevent acute kidney injury. * Continue wound care as directed. * Follow-up with infectious disease at [facility]. * Follow-up with your PCP in 1-2 weeks. Please return to the hospital if you experience any of the following: Worsening/return of your lower extremity infections, fever of 100.5 F or higher, confusion, somnolence, chest pain, shortness of breath, lightheadedness, passing out, or any other symptoms concerning for you. It was a pleasure taking care of you while you were in the hospital, Annia Fields PA-C Supervising Physician Co-Signing Physician Notes Attending Attestation and Discharge Note: Pt seen/examined, chart reviewed, discharge care plan d/w ISREAL Fields. I agree w/ the lubin components of her discharge documentation. 78yo male with PMHx of MRSA infection (on doxycycline prophylaxis) of his prosthetic right knee, CAD, CHF, sepsis, rhabdomyolysis, NSTEMI, atrial fibrillation (on Xarelto), chronic venous stasis, peripheral neuropathy, rheumatoid arthritis, and cellulitis. He has had recurrent lower extremity cellulitis infections bilaterally with multiple hospitalizations for such. He presented with same. Blood cultures remained negative while here. B/l foot MRIs did NOT show evidence of osteomyelitis or deep infection such as abscess. Seen by ID, podiatry, and vascular surgery (arterial duplex study showed considerable PAD of the legs). Wound care was consulted for ongoing wound care assistance of his numerous LE wounds. Despite the various ulcers of the feet/legs no surgical intervention was needed. Vascular surgery did not advise intervention of his PAD. ID advised a course of IV daptomycin/ertapenem daily until 06/24/24 for his b/l leg & foot cellulitis. Patient is transferring to the rehab program housed at [facility] for ongoing rehab. Discharge exam: gen - sitting in wheelchair, depressed appearing neck - no JVD heart - regular rate, irregular rhythm (extra beats), s1 s2 lungs - CTA b/l with minimal dry sounding rales bases, no wheeze, no increased work of breathing abd - soft NT ND BS+ ext - LE edema, about 1+ minimum b/l feet & ankles/shins; venous pooling of b/l feet; cap refill toes b/l feet 2 seconds; pulses b/l feet about 1+; dressings intact b/l feet; numerous dressings shins b/l; surgical shoes in place b/l feet He is at high risk of recurrent infections given his immunocompromised state as well as fairly advanced PAD of both legs. He should f/u with Dr Heber Estrada, vascular surgery [facility] in [place], especially if he fails to have adequate wound healing of his feet. Shaheen Vance MD Total Time Total Time Spent Total Time Spent (In Minutes): Greater than 30 minutes spent completing this discharge process including direct patient care, medication reconciliation, documentation, review of labs and images, and coordination of care. Coding Level of Care Code 72056 INP/OBS DISCH >30 MIN Diagnoses Recurrent cellulitis of lower extremity L03.119 History of infection of total joint prosthesis of knee Z87.39 Depression F32.A JEFFERY (acute kidney injury) N17.9 Atrial fibrillation I48.91 Pressure injury of right foot, stage 3 L89.893 Laterality: right Chronic diastolic heart failure I50.32
[2024-06-22 12:46] VITALS: BP 148/82; PULSE 69; RESP 18; TEMP 98.2; O2SAT 95
== END 2024-06-22 14:02 | DRG 602 ==
LOC: ED 09:32 → SUATTDRO 14:25 → EDINP 14:25 → 2W 17:09 → 3W 06-14 15:28 → 3E 06-19 18:07

== ENCOUNTER 2024-07-22 18:19 | Inpatient (IN) ==
--- NOTE | 2024-07-22 18:47 | Emergency Department Note ---
Impression & Plan Acute UTI Admission ED Provider Note HPI: History obtained from patient and patient's daughter at the bedside. The patient is a 78-year-old gentleman with complex past medical history including recurrent cellulitis of the lower extremity, atrial fibrillation, infection of prosthetic right knee joint, history of MRSA currently on IV Bactrim in the outpatient setting, presents the emergency department today with a chief complaint of abnormal lab work at the [facility] in addition to hypotension. Patient's daughter serves as a primary historian, she states that the patient had some lab work done today at the [facility] and was told at that time that his blood pressure was low, he was complaining of some generalized weakness and they recommended that he come to the emergency department to be assessed. At that time the patient declined going to the emergency department and he did end up going back to [facility]. He was later contacted and told that his kidney function was worsening and his potassium was high and they recommended again ER evaluation and patient at this time was in agreement. Patient tells me in general he just feels very weak and fatigued, he denies any focal complaints of pain. On arrival here to the ED initially the patient's blood pressure is 100/61, heart rate is within normal limits, patient otherwise appears to be in no acute distress. ROS: - Per HPI Differential Diagnosis: Sepsis, urinary tract infection, acute renal failure/dehydration, hyperkalemia, amongst other potential pathologies. *Outpatient medications and allergy history reviewed. PE: General: Alert, frail-appearing, no acute distress HEENT: Normocephalic, trachea midline Eyes: Extraocular eye movement is intact, no scleral erythema Pulmonary: Clear to auscultation bilaterally, no wheezing Cardio: Regular rate and rhythm GI: Abdomen is soft to palpation : No suprapubic tenderness MSK: No evidence of trauma or malformation of the extremities, no edema Skin: No evidence of rash Neuro: Alert, no focal deficits Psychiatric: Cooperative INDEPENDENT INTERPRETATIONS: monitoring and evaluation advisor: (As interpreted by myself): - An order was placed for continuous cardiac monitoring - Patient was noted to be in sinus rhythm with a rate of 65 EKG: (As interpreted by myself): Rate: 64 Rhythm: Normal sinus rhythm Intervals: UT interval 206 ms, otherwise within normal limits ST changes: No ST elevation Time: 1835 Chest x-ray: (As interpreted by myself): No acute disease Interventions provided in ED: -IV fluid bolus, IV Zosyn and IV daptomycin ordered per inpatient team Medical Decision Making: IV was established and lab work obtained, patient was placed on night monitor. Lab work shows no leukocytosis, hemoglobin is stable at 13.2, platelet count is normal, CMP does not show any evidence of any critical findings, potassium is noted to be within normal limits, creatinine is mildly elevated above baseline at 1.78, BUN is 44, patient was ordered IV fluids here in the ED. Troponin is negative, procalcitonin is low. Urinalysis does appear to be consistent with infection, urine nitrite is positive, 2+ leukocyte esterase, there is significant pyuria, will send for culture and the patient will be treated with IV antibiotics. I discussed all of the above findings with the patient and with his daughter at the bedside, at this time the patient states he feels very weak and they would prefer inpatient admission given his history of multiple bouts of sepsis for treatment with IV antibiotics and follow-up on blood cultures. His creatinine is mildly elevated, he has been on Bactrim for the past 3 days, this could be playing a role in his mild acute renal failure. The [facility] hospitalist team was consulted, patient was placed for admission in stable condition. Consultants/Discussions held with other healthcare providers: -Hospitalist, Dr. Weinstein Disposition discussion held by myself with: -Patient and patient's daughter at the bedside Diagnosis: 1. Urinary tract infection, acute 2. Elevated creatinine, acute Disposition: Admission Jae Wiley DO Emergency Medicine Past Med/Surg History Problem List (Updated 07/22/24 @ 22:44 by Lora Castellanos PA-C) HFrEF (heart failure with reduced ejection fraction) Transaminitis Hypoxia Venous stasis ulcers of both lower extremities UTI (urinary tract infection) JEFFERY (acute kidney injury) Non-pressure chronic ulcer of other part of left foot limited to breakdown of skin Non-pressure chronic ulcer of other part of right foot limited to breakdown of skin Peripheral arterial disease (Chronic) Pressure ulcer of right foot, stage 3 Chronic diastolic heart failure History of infection of total joint prosthesis of knee Atrial fibrillation History of MRSA infection Recurrent cellulitis of lower extremity (Acute) Polyneuropathy Depression Atrial flutter (Acute) Atrial fibrillation with RVR Open wound of knee (Acute) Venous ulcers of both lower extremities (Acute) Pain associated with wound Palliative care by specialist Advanced care planning/counseling discussion Back pain VRE bacteremia Ambulatory dysfunction Infection of prosthetic right knee joint Weakness (Acute) Fall (Acute) Anemia (Acute) Hypomagnesemia (Acute) Hypotension (Acute) Bilateral cellulitis of lower leg (Acute) Peripheral neuropathy Chronic venous stasis Cellulitis of both feet (Acute) Rheumatoid arthritis Open wound of foot Open wound of right hand (Acute) Chronic wound Lymphangitis of lower extremity Hypomagnesemia (Acute) Open wound of left upper arm (Acute) Open wound of left arm with tendon injury Gram-negative bacteremia Cellulitis of right lower extremity (Acute) Generalized weakness (Acute) Elevated procalcitonin (Acute) Acute kidney injury superimposed on chronic kidney disease (Acute) Skin tear of right upper extremity (Acute) Open wound of left foot (Acute) Open wound of right foot (Acute) Skin tear of right hand without complication (Acute) Venous ulcer of left leg (Acute) Traumatic open wound of right lower leg (Acute) Elevated LFTs MRSA bacteremia Dislocation, hip closed (Acute) Dislocation, hip, posterior Rotator cuff arthropathy of both shoulders Abrasion of right knee (Acute) Pain of right hip Prophylactic antibiotic Left shoulder pain Acquired foot deformity (Chronic) Traumatic wound (Acute) Pressure ulcer of left foot, stage 3 (Acute) Abnormal ankle brachial index (Acute) Right knee pain Non-ST elevation NJ (NSTEMI) (Acute) Leukocytosis (Acute) Myoclonus Cervical radiculopathy Neuropathy Weakness On amiodarone therapy Weakness of right hip Constipation Sepsis following procedure Rhabdomyolysis MRSA infection History of CHF (congestive heart failure) Visual disturbance Hyponatremia Hypotension Acute metabolic encephalopathy Abdominal wall abscess (Acute) HFrEF (heart failure with reduced ejection fraction) EF 40% Mar 2022, improved 55-60% August 2022 Lumbar stenosis Osteoarthritis of right knee Anxiety and depression Hypertension Coronary artery disease Atherogenic dyslipidemia Lumbar radiculopathy Lower extremity weakness Degenerative spondylolisthesis Chronic low back pain Scoliosis of lumbar region due to degenerative disease of spine in adult Dislocation of hip, right, closed (Acute) Septic joint of right knee joint COVID-19 (Acute) Incisional hernia Incarcerated intra-abdominal hernia (Acute) Adjustment disorder with mixed anxiety and depressed mood Medical History Hyperkalemia Lethargy JEFFERY (acute kidney injury) Ischemic ulcer of left foot Ischemic ulcer of right foot Bilateral lower leg cellulitis PVD (peripheral vascular disease) Atrial flutter with rapid ventricular response Open wound of left lower extremity Sepsis secondary to UTI Fever Sepsis due to skin infection Sepsis Fall Infected hardware in right leg Chronic infection of right knee UTI (urinary tract infection) Severe sepsis Venous ulcer of right leg Venous stasis ulcers of both lower extremities Idiopathic polyneuropathy History of immunosuppressive therapy Heart failure with preserved ejection fraction GERD (gastroesophageal reflux disease) Sepsis Septicemia due to Streptococcus pneumoniae Respiratory failure with hypoxia Hypomagnesemia Pneumonia Benign essential hypertension Lumbar stenosis Hx of staphylococcal infection 03/2022, w/"bacterial infection" at the same, in the rt. knee, occurrred during atrial fibrillation episode. "when he woke up, he couldn't walk." Atrial fibrillation episode occurred in 03/2022, taken to [facility], admitted to ICU for 1-2 weeks (was not intubated, but wasn't "awake either"), then to cardiac unit, then to rehab at [facility]; f/u dr. guerra in [place]>will be starting to see a abrasive worker at [facility] 2nd week of 08/2022 Myocardial Infarction "a silent one, 2019" Sleep apnea no device Surgical History Status post revision of total replacement of right knee Hx of Achilles tendon repair rt. Hx of knee surgery rt. patellar tendon repair Hx of rotator cuff surgery bilateral Hx of total knee replacement lt. Hx of total hip arthroplasty rt. History of colostomy reversal History of bowel resection for diverticulitis; w/colostomy placement for 3-4 months Hx of hernia repair near former colostomy site History of esophagogastroduodenoscopy (EGD) Hx of colonoscopy Last Colonoscopy 08/14/22, repeat 3 years in 2025 Hx of bilateral cataract extraction History of heart artery stent ~3 years ago, x2 stents, done in [place]; f/u dr guerra, [place]>will be seeing new cardio at [place] 2nd week of August 2022. History of cardiac cath ~3 years ago, SOB and "felt like throat was constricting", had "silent heart attack", x2 stents, done in [place] Family History Grandmother (Maternal) Diabetes Daughter Diabetes Father Suicide Hypertension Denies family history of Ovarian cancer Prostate cancer Myocardial infarction Breast cancer Lung cancer Colorectal cancer Stroke Social History Smoking Status: Never smoker Second Hand Exposure: No; Do You Dip or Chew Tobacco: No; Hx Alcohol Use: Yes Alcohol type: wine Alcohol Intake Frequency: 4 or More x per/Week Hx Substance Use: No Preferred Language: German Communication Ability: Effective Visual Impairment: Limited Hearing Ability: Normal Commercial Shrimping Captain Required: No Beliefs That Will Affect Care: None marital status: Single Current Living Situation: Other Current Living Situation Comment: resides in independent living facility current occupational status: retired How many Children do You have: 2 Feels Safe at Home: Yes Childhood Exposure to Second-Hand Smoke: Yes Diet: regular caffeine: Yes Dental Care, Regularly: Yes Physical Activity Frequency: Does not Exercise Seatbelt Use: always Sunscreen Use: Yes Assistive Devices: Wheelchair Allergies Allergies Allergy/AdvReac Type Severity Reaction Status Date / Time cat dander Allergy Severe CAT Verified 07/22/24 09:12 HAIR---Swelling of Lip/Tongue/Throat Home Meds Home Medications Medication Instructions Recorded Confirmed aspirin 81 mg tablet,delayed 81 mg PO QAM 08/07/22 07/22/24 release (Adult Low Dose Aspirin) rivaroxaban 20 mg tablet (Xarelto) 20 mg PO QPM 11/19/23 07/22/24 sennosides 8.6 mg tablet 8.6 mg PO BID 12/15/23 07/22/24 mirtazapine 30 mg tablet 30 mg PO HS 01/21/24 07/22/24 nitroglycerin 0.4 mg sublingual 0.4 mg sublingual DIRECTED PRN 01/21/24 07/22/24 tablet chest pin pravastatin 40 mg tablet 40 mg PO HS 01/21/24 07/22/24 vitamin E 268 mg (400 unit) capsule 268 mg PO DAILY ##0 01/21/24 07/22/24 acetaminophen 325 mg tablet 975 mg PO Q8H PRN mild pain,fever, 01/26/24 07/22/24 or headache latanoprost 0.005 % eye drops 1 drp OPB QPM 03/29/24 07/22/24 vitamin B comp and C no.3 15 mg-10 1 cap PO DAILY 03/29/24 07/22/24 mg-50 mg-5 mg-300 mg capsule (B Complex Plus Vitamin C) bumetanide 0.5 mg tablet 0.5 mg PO DAILY 05/27/24 07/22/24 amiodarone 400 mg tablet 400 mg PO AMPM 07/04/24 07/22/24 cholecalciferol (vitamin D3) 25 25 mcg PO DAILY 07/04/24 07/22/24 mcg (1,000 unit) capsule sulfamethoxazole 800 1 tab PO DAILY 07/14/24 07/22/24 mg-trimethoprim 160 mg tablet (Bactrim DS) Probiotic 1 cap PO QAM 07/22/24 07/22/24 diclofenac sodium 1 % topical gel 0 g topical QID 07/22/24 07/22/24 diphenhydramine HCl 25 mg tablet 25 mg PO Q6 PRN Itching 07/22/24 07/22/24 (Benadryl Allergy) esomeprazole magnesium 40 mg 40 mg PO HS 07/22/24 07/22/24 capsule,delayed release (Nexium) glucosamine sulfate 500 mg tablet 500 mg PO DAILY 07/22/24 07/22/24 (Glucosamine) guaifenesin 100 mg/5 mL oral liquid 200 mg PO Q4H PRN Cough 07/22/24 07/22/24 hydrocodone 5 mg-acetaminophen 325 1 tab PO Q6 PRN Moderate Pain 07/22/24 07/22/24 mg tablet (Scale Score 5-6) melatonin 3 mg tablet 6 mg PO HS 07/22/24 07/22/24 multivitamin 1 tab PO QAM 07/22/24 07/22/24 omega-3 fatty acids 1,250 mg 1,250 mg PO QAM 07/22/24 07/22/24 capsule tamsulosin 0.4 mg capsule 0.4 mg PO HS 07/22/24 07/22/24 Previous Rx's Medication Instructions Recorded cyanocobalamin (vitamin B-12) 500 1,000 mcg (2 x 500 mcg) PO QAM #30 01/18/23 mcg tablet tabs duloxetine 60 mg capsule,delayed 60 mg PO QAM #90 caps 10/29/23 release metoprolol succinate 25 mg 25 mg PO QAM #30 tabs 04/07/24 tablet,extended release 24 hr empagliflozin 10 mg tablet 10 mg PO DAILY #90 tabs 05/11/24 (Jardiance) ferrous sulfate 325 mg (65 mg 325 mg PO DAILY #90 tabs 05/11/24 iron) tablet sacubitril 24 mg-valsartan 26 mg 1 tab PO BID #180 tabs 05/11/24 tablet (Entresto) gabapentin 600 mg tablet 600 mg PO TID neuropathy from 05/12/24 severe PVD wounds 1 month #90 tabs collagenase clostridium histo. 250 1 applic topical DAILY #30 grams 07/22/24 unit/gram topical ointment (Santyl) Results & Data (ED) Vital Signs Vital Signs - 24 hr 07/22/24 18:23 07/22/24 18:36 07/22/24 18:36 Temperature 36.8 C Temperature Source Temporal Artery Scan Pulse Rate 124 H Pulse Rate from SpO2 Sensor Respiratory Rate 20 Respiratory Effort / Characteristics Respiratory Depth Blood Pressure 118/50 L 92/52 L 92/52 L Blood Pressure Mean 72 68 68 Pulse Oximetry 92 Oxygen Delivery Method Room Air Sepsis Recent Fever Within 48 Hours No Sepsis New/Unexplained Change in Mental Status No Sepsis Action Taken by Nursing No Action Required Oxygen Flow Rate - Titration Pulse Oximetry Post Tiitration 07/22/24 18:36 07/22/24 18:37 07/22/24 18:47 Temperature Temperature Source Pulse Rate 63 61 Pulse Rate from SpO2 Sensor Respiratory Rate 18 Respiratory Effort / Characteristics Respiratory Depth Blood Pressure 92/52 L 92/52 L Blood Pressure Mean 68 65 Pulse Oximetry Oxygen Delivery Method Sepsis Recent Fever Within 48 Hours Sepsis New/Unexplained Change in Mental Status Sepsis Action Taken by Nursing Oxygen Flow Rate - Titration Pulse Oximetry Post Tiitration 07/22/24 18:48 07/22/24 19:02 07/22/24 19:11 Temperature Temperature Source Pulse Rate 59 L 59 L Pulse Rate from SpO2 Sensor 60 Respiratory Rate 17 18 Respiratory Effort / Characteristics Respiratory Depth Blood Pressure Blood Pressure Mean Pulse Oximetry 90 Oxygen Delivery Method Room Air Sepsis Recent Fever Within 48 Hours Sepsis New/Unexplained Change in Mental Status Sepsis Action Taken by Nursing Oxygen Flow Rate - Titration Pulse Oximetry Post Tiitration 07/22/24 19:25 07/22/24 19:25 07/22/24 19:35 Temperature Temperature Source Pulse Rate 56 L Pulse Rate from SpO2 Sensor 57 L Respiratory Rate 22 Respiratory Effort / Characteristics Respiratory Depth Blood Pressure 116/67 116/67 Blood Pressure Mean 79 79 Pulse Oximetry 93 Oxygen Delivery Method Sepsis Recent Fever Within 48 Hours Sepsis New/Unexplained Change in Mental Status Sepsis Action Taken by Nursing Oxygen Flow Rate - Titration Pulse Oximetry Post Tiitration 07/22/24 19:56 07/22/24 20:02 07/22/24 20:20 Temperature Temperature Source Pulse Rate 57 L 70 Pulse Rate from SpO2 Sensor 56 L Respiratory Rate 16 16 19 Respiratory Effort / Characteristics Non-Labored Respiratory Depth Normal Blood Pressure 100/44 L 100/48 L Blood Pressure Mean 62 65 Pulse Oximetry 94 90 90 Oxygen Delivery Method Room Air Sepsis Recent Fever Within 48 Hours Sepsis New/Unexplained Change in Mental Status Sepsis Action Taken by Nursing Oxygen Flow Rate - Titration Pulse Oximetry Post Tiitration 07/22/24 20:26 07/22/24 20:32 07/22/24 20:38 Temperature Temperature Source Pulse Rate 76 61 61 Pulse Rate from SpO2 Sensor 62 61 61 Respiratory Rate 22 17 17 Respiratory Effort / Characteristics Respiratory Depth Blood Pressure 146/71 H 102/64 Blood Pressure Mean 96 76 Pulse Oximetry 93 90 91 Oxygen Delivery Method Sepsis Recent Fever Within 48 Hours Sepsis New/Unexplained Change in Mental Status Sepsis Action Taken by Nursing Oxygen Flow Rate - Titration Pulse Oximetry Post Tiitration 07/22/24 20:53 07/22/24 20:56 07/22/24 21:00 Temperature Temperature Source Pulse Rate 62 Pulse Rate from SpO2 Sensor 62 Respiratory Rate 19 Respiratory Effort / Characteristics Respiratory Depth Blood Pressure 112/62 112/62 Blood Pressure Mean 78 80 Pulse Oximetry 93 88 L Oxygen Delivery Method Room Air Sepsis Recent Fever Within 48 Hours Sepsis New/Unexplained Change in Mental Status Sepsis Action Taken by Nursing Oxygen Flow Rate - Titration 2 Pulse Oximetry Post Tiitration 94 07/22/24 21:15 07/22/24 21:15 07/22/24 21:26 Temperature Temperature Source Pulse Rate 59 L Pulse Rate from SpO2 Sensor 61 Respiratory Rate 17 Respiratory Effort / Characteristics Respiratory Depth Blood Pressure 107/65 107/65 Blood Pressure Mean 72 72 Pulse Oximetry 97 Oxygen Delivery Method Sepsis Recent Fever Within 48 Hours Sepsis New/Unexplained Change in Mental Status Sepsis Action Taken by Nursing Oxygen Flow Rate - Titration Pulse Oximetry Post Tiitration 07/22/24 21:30 07/22/24 21:41 07/22/24 21:46 Temperature Temperature Source Pulse Rate 64 Pulse Rate from SpO2 Sensor 64 Respiratory Rate 15 Respiratory Effort / Characteristics Respiratory Depth Blood Pressure 106/70 126/71 Blood Pressure Mean 78 91 Pulse Oximetry 97 Oxygen Delivery Method Sepsis Recent Fever Within 48 Hours Sepsis New/Unexplained Change in Mental Status Sepsis Action Taken by Nursing Oxygen Flow Rate - Titration Pulse Oximetry Post Tiitration 07/22/24 21:46 07/22/24 21:50 07/22/24 22:02 Temperature Temperature Source Pulse Rate 62 60 Pulse Rate from SpO2 Sensor 62 60 Respiratory Rate 17 17 Respiratory Effort / Characteristics Respiratory Depth Blood Pressure 126/71 113/60 Blood Pressure Mean 91 77 Pulse Oximetry 98 96 Oxygen Delivery Method Sepsis Recent Fever Within 48 Hours Sepsis New/Unexplained Change in Mental Status Sepsis Action Taken by Nursing Oxygen Flow Rate - Titration Pulse Oximetry Post Tiitration 07/22/24 22:52 Temperature Temperature Source Pulse Rate 61 Pulse Rate from SpO2 Sensor Respiratory Rate Respiratory Effort / Characteristics Respiratory Depth Blood Pressure Blood Pressure Mean Pulse Oximetry Oxygen Delivery Method Sepsis Recent Fever Within 48 Hours Sepsis New/Unexplained Change in Mental Status Sepsis Action Taken by Nursing Oxygen Flow Rate - Titration Pulse Oximetry Post Tiitration Laboratory Data 07/22/24 18:46 07/22/24 18:46 Lab Results 07/22/24 07/22/24 07/22/24 Range/Units 18:46 19:38 Unknown WBC 6.92 (4.8-10.8) K/ul RBC 4.26 L (4.70-6.10) M/uL Hgb 13.2 L (14.0-18.0) g/dl Hct 41.1 L (42.0-52.0) % MCV 96.5 (80.0-100.0) fL MCH 31.0 (25.0-34.0) pg MCHC 32.1 (32.0-36.0) g/dL RDW Std Deviation 64.6 H (36.4-46.3) fL RDW Coeff of Sammie 18.3 H (11.5-14.5) % Plt Count 246 (130-400) K/uL MPV 10.0 (9.4-12.4) fL Immature Gran % (Auto) 0.4 % Neut % (Auto) 76.6 % Lymph % (Auto) 8.8 % Clayton % (Auto) 10.5 % Eos % (Auto) 3.3 % Baso % (Auto) 0.4 % Neut # (Auto) 5.29 (1.40-6.50) K/uL Lymph # (Auto) 0.61 L (1.20-3.40) K/uL Clayton # (Auto) 0.73 H (0.11-0.59) K/uL Eos # (Auto) 0.23 (0.00-0.50) K/uL Baso # (Auto) 0.03 (0.00-0.20) K/uL Immature Gran # (Auto) 0.03 (0.01-0.20) K/uL PT 13.3 H (9.0-12.0) Seconds INR 1.2 H (0.9-1.1) APTT 36 H (21-31) Seconds PTT Ratio 1.3 Sodium 138 (136-145) mmol/L Potassium 5.0 (3.5-5.1) mmol/L Chloride 103 (98-107) mmol/L Carbon Dioxide 29 (21-32) mmol/L Anion Gap 6 (3-11) BUN 44 H (6-23) mg/dl Creatinine 1.78 H (0.6-1.4) mg/dl Est Cr Clr Drug Dosing Not Reportable eGFR 38.09 BUN/Creatinine Ratio 24.7 H (10-20) Glucose 97 (70-99(Fasting)) mg/dl Lactate 1.4 (0.4-2.0) mmol/L Calcium 9.0 (8.6-10.3) mg/dl Magnesium 2.2 (1.7-2.4) mg/dl Total Bilirubin 0.4 (0.2-1.0) mg/dl AST 56 H (13-39) U/L ALT 59 H (7-52) U/L Alkaline Phosphatase 80 (34-104) U/L Total Creatine Kinase 71 (30-223) U/L Troponin I High Sens 19.0 (0-20) pg/ml Total Protein 6.6 (6.0-8.3) gm/dl Albumin 3.7 (3.4-5.0) gm/dl Globulin 2.9 (2.5-4.0) gm/dl Albumin/Globulin Ratio 1.3 (0.9-2) Procalcitonin 0.12 (0-0.5) ng/ml Urine Color Yellow Urine Appearance Cloudy A (Clear) Urine pH 7.5 (4.5-7.5) Ur Specific Platter 1.014 (1.000-1.030) Urine Protein Negative (Negative) Urine Glucose (UA) 3+ H (Negative) Urine Ketones Negative (Negative) Urine Blood 1+ H (Negative) Urine Nitrite Positive A (Negative) Urine Bilirubin Negative (Negative) Urine Urobilinogen Negative (Negative) Ur Leukocyte Esterase 2+ H (Negative) Urine WBC (Auto) >50 H (0-5) /hpf Urine RBC (Auto) 3-5 H (0-2) /hpf U Hyaline Cast (Auto) 3-5 H (0-2) /lpf U Epithel Cells (Auto) 0-2 (0-2) /hpf Urine Bacteria (Auto) 4+ H (None Seen) Adenovirus (PCR) Not Detected (NotDetected) B. pertussis DNA (PCR) Not Detected (NotDetected) B.parapertussis DNA PCR Not Detected (NotDetected) C. pneumoniae DNA (PCR) Not Detected (NotDetected) Coronavirus OC43 (PCR) Not Detected (NotDetected) Coronavirus HKU1 (PCR) Not Detected (NotDetected) Coronavirus 229E (PCR) Not Detected (NotDetected) SARS-CoV-2 (PCR) Not Detected (NotDetected) Coronavirus NL63 (PCR) Not Detected (NotDetected) Human Metapneumovir PCR Not Detected (NotDetected) Influenza Type A (PCR) Not Detected (NotDetected) Influenza Type B (PCR) Not Detected (NotDetected) M. pneumoniae (PCR) Not Detected (NotDetected) Parainfluenza 1 (PCR) Not Detected (NotDetected) Parainfluenza 2 (PCR) Not Detected (NotDetected) Parainfluenza 3 (PCR) Not Detected (NotDetected) Parainfluenza 4 (PCR) Not Detected (NotDetected) RSV (PCR) Not Detected (NotDetected) Entero/Rhino (PCR) Not Detected (NotDetected) Administered Medications Discontinued Medications Sodium Chloride (Nss) 1,000 mls @ 999 mls/hr IV .Q1H1M ONE Stop: 07/22/24 19:48 Last Infusion: 07/22/24 20:51 Dose: Infused Documented By: Admin: 07/22/24 19:20 Dose: 999 mls/hr Documented By: GEORGETTE Ceftriaxone Sodium (Rocephin) 2,000 mg in 50 mls @ 100 mls/hr IV NOW STA Stop: 07/22/24 22:03 Last Admin: 07/22/24 22:12 Dose: Not Given Documented By: GEORGETTE Piperacillin Sod/Tazobactam Sod (Zosyn) 4.5 gm in 100 mls @ 200 mls/hr IV NOW ONE; Protocol Stop: 07/22/24 22:29 Last Admin: 07/22/24 22:57 Dose: 200 mls/hr Documented By: GEORGETTE Daptomycin 375 mg/ Syringe 7.5 mls @ 3.75 mls/min IV ONE STA; Protocol Stop: 07/22/24 22:01 Last Admin: 07/22/24 22:55 Dose: 3.75 mls/min Documented By: GEORGETTE Imaging Data Radiologist's Impression: Chest X-Ray 07/22/24 18:48 EXAM: Radiograph of the Chest 1 View INDICATION: Sepsis. TECHNIQUE: Frontal view of the chest. COMPARISON: 05/18/2024 FINDINGS: Lungs and pleural spaces: Stable mild basilar scarring. No pleural effusion or pneumothorax. Heart: Shape and configuration within normal limits allowing for technique. Mediastinum: Small to moderate hiatal hernia. Bones/joints: Degenerative changes noted throughout the spine and both shoulders. No lytic or blastic lesions noted. Soft tissues: No abnormality noted. No radiopaque foreign body noted. Vasculature: Stable mild ectatic aorta. Lymph nodes: Stable right hilar calcifications likely lymph nodes. Tubes, lines and devices: Right percutaneous catheter no longer visualized in the chest. Upper abdomen: No abnormality noted. IMPRESSION: Stable chronic changes. No acute disease. ACT 112: Negative or not required by law. Electronically signed by Sisi Todd 07-22-2024 7:28 PM Discharge Plan Visit Data Chief Complaint: Hypotension Stated Complaint: HYPOTENSION, SOB, OX LOW ED Provider: Jae Wiley Discharge Problem: Acute UTI Forms Stand Alone Forms: [facility] [facility] Prescriptions Prescriptions: No Action sulfamethoxazole-trimethoprim [Bactrim DS] 800-160 mg tablet 1 tab PO DAILY Patient Comments: As of today pt hasn't started this med but it was ordered and to be delivered and when he receives it he will stop Doxycyline and start Bactrim Santyl 250 unit/gram ointment 1 applic topical DAILY Qty: 30 0RF duloxetine 60 mg capsule,delayed release(DR/EC) 60 mg PO QAM Qty: 90 3RF Jardiance 10 mg tablet 10 mg PO DAILY Qty: 90 3RF ferrous sulfate 325 mg (65 mg iron) tablet 325 mg PO DAILY Qty: 90 3RF Entresto 24-26 mg tablet 1 tab PO BID Qty: 180 3RF cholecalciferol (vitamin D3) 25 mcg (1,000 unit) capsule 25 mcg PO DAILY amiodarone 400 mg tablet 400 mg PO AMPM Rx Instructions: TAKE WITH MORNING AND EVENING MEAL gabapentin 600 mg tablet 600 mg PO TID 30 Days Qty: 90 3RF Xarelto 20 mg tablet 20 mg PO QPM Rx Instructions: must administer with evening meal start 3 days after last eliquis dose. aspirin [Adult Low Dose Aspirin] 81 mg tablet,delayed release (DR/EC) 81 mg PO QAM Hold Instructions: Resume on 02/23/23. until PCP/surgery followup cyanocobalamin (vitamin B-12) 500 mcg Tablet 1,000 mcg PO QAM Qty: 30 0RF nitroglycerin 0.4 mg Tablet, Sublingual 0.4 mg sublingual DIRECTED PRN (Reason: chest pin) vitamin E 268 mg (400 unit) Capsule 268 mg PO DAILY Qty: 0 pravastatin 40 mg tablet 40 mg PO HS Hold Instructions: Resume on 06/25/24. Hold while on daptomycin Rx Instructions: TAKE 1 TABLET BY MOUTH ONCE DAILY mirtazapine 30 mg tablet 30 mg PO HS acetaminophen 325 mg tablet 975 mg PO Q8H PRN (Reason: mild pain,fever, or headache) latanoprost 0.005 % Drops 1 drp OPB QPM Rx Instructions: into both eyes B Complex Plus Vitamin C 61-81-18-5-300 mg Capsule 1 cap PO DAILY metoprolol succinate 25 mg Tablet Extended Release 24 Hr 25 mg PO QAM Qty: 30 0RF bumetanide 0.5 mg tablet 0.5 mg PO DAILY Rx Instructions: one tablet daily, with 1 additional tablet daily prn for weight gain or shortness of breath tamsulosin 0.4 mg capsule 0.4 mg PO HS multivitamin Tablet 1 tab PO QAM melatonin 3 mg Tablet 6 mg PO HS glucosamine sulfate [Glucosamine] 500 mg Tablet 500 mg PO DAILY Rx Instructions: administer with a meal diclofenac sodium [Voltaren] 1 % Gel 0 g TOPICAL QID Rx Instructions: APPLY 1 DOSE 4 TIMES A DAY TO BILATERAL SHOULDERS FOR PAIN hydrocodone-acetaminophen 5-325 mg tablet 1 tab PO Q6 PRN (Reason: Moderate Pain (Scale Score 5-6)) guaifenesin 100 mg/5 mL Liquid 200 mg PO Q4H PRN (Reason: Cough) esomeprazole magnesium [Nexium] 40 mg Capsule,Delayed Release(Dr/Ec) 40 mg PO HS omega-3 fatty acids 1,250 mg Capsule 1,250 mg PO QAM Probiotic 1 cap PO QAM diphenhydramine HCl [Benadryl Allergy] 25 mg Tablet 25 mg PO Q6 PRN (Reason: Itching) sennosides 8.6 mg Tablet 8.6 mg PO BID Referrals Referrals: Danny Soliman DO [Primary Care Provider] -
[2024-07-22 19:07] LABS: Basophils # (auto) 0.03 K/uL (0.00-0.20); Basophils % (auto) 0.4 %; Eosinophils # (auto) 0.23 K/uL (0.00-0.50); Eosinophils % (auto) 3.3 %; Hematocrit (blood only) 41.1 % (42.0-52.0); Hemoglobin 13.2 g/dl (14.0-18.0); Immature Granulocytes # (auto) 0.03 K/uL (0.01-0.20); Immature Granulocytes % (auto) 0.4 %; Lymphocytes # (auto) 0.61 K/uL (1.20-3.40); Lymphocytes % (auto) 8.8 %; Mean Corpuscular Hgb Conc 32.1 g/dL (32.0-36.0); Mean Corpuscular Volume 96.5 fL (80.0-100.0); Monocytes # (auto) 0.73 K/uL (0.11-0.59); Monocytes % (auto) 10.5 %; Neutrophils # (auto) 5.29 K/uL (1.40-6.50); Neutrophils % (auto) 76.6 %; Platelet Count 246 K/uL (130-400); RDW Coefficient of Variation 18.3 % (11.5-14.5); RDW Standard Deviation 64.6 fL (36.4-46.3); Red Blood Count 4.26 M/uL (4.70-6.10); White Blood Count 6.92 K/ul (4.8-10.8)
[2024-07-22 19:17] LABS: Alanine Aminotransferase 59 U/L (7-52); Albumin Globulin Ratio 1.3 (0.9-2); Albumin Level 3.7 gm/dl (3.4-5.0); Alkaline Phosphatase 80 U/L (34-104); Anion Gap 6 (3-11); Aspartate Aminotransferase 56 U/L (13-39); BUN Creatinine Ratio 24.7 (10-20); Bilirubin,Total 0.4 mg/dl (0.2-1.0); Blood Urea Nitrogen 44 mg/dl (6-23); Carbon Dioxide 29 mmol/L (21-32); Chloride 103 mmol/L (98-107); Globulin 2.9 gm/dl (2.5-4.0); Glucose 97 mg/dl (70-99(Fasting)); Magnesium 2.2 mg/dl (1.7-2.4); Sodium 138 mmol/L (136-145); Total Protein 6.6 gm/dl (6.0-8.3)
[2024-07-22] MEDS: SODIUM CHLORIDE 0.9% 1,000 ML IV ONE (19:20)
--- NOTE | 2024-07-22 19:30 | XRay Report ---
EXAM: Radiograph of the Chest 1 View INDICATION: Sepsis. TECHNIQUE: Frontal view of the chest. COMPARISON: 05/18/2024 FINDINGS: Lungs and pleural spaces: Stable mild basilar scarring. No pleural effusion or pneumothorax. Heart: Shape and configuration within normal limits allowing for technique. Mediastinum: Small to moderate hiatal hernia. Bones/joints: Degenerative changes noted throughout the spine and both shoulders. No lytic or blastic lesions noted. Soft tissues: No abnormality noted. No radiopaque foreign body noted. Vasculature: Stable mild ectatic aorta. Lymph nodes: Stable right hilar calcifications likely lymph nodes. Tubes, lines and devices: Right percutaneous catheter no longer visualized in the chest. Upper abdomen: No abnormality noted. IMPRESSION: Stable chronic changes. No acute disease. ACT 112: Negative or not required by law. Electronically signed by Sisi Todd 07-22-2024 7:28 PM
[2024-07-22 19:32] LABS: INR 1.2 (0.9-1.1); Partial Thromboplastin Ratio 1.3; Partial Thromboplastin Time 36 Seconds (21-31); Prothrombin Time 13.3 Seconds (9.0-12.0)
[2024-07-22 20:34] LABS: Appearance Urine Cloudy (Clear); Bacteria Urine Automated 4+ (None Seen); Bilirubin Urine Negative (Negative); Blood Urine 1+ (Negative); Color Urine Yellow; Epithelial Cell Urine Auto 0-2 /hpf (0-2); Glucose Urine UA 3+ (Negative); Ketones Urine Negative (Negative); Leukocyte Esterase Urine 2+ (Negative); Nitrite Urine Positive (Negative); Protein Urine Negative (Negative); Specific Gravity Urine 1.014 (1.000-1.030); Urobilinogen Urine Negative (Negative); WBC Urine Automated >50 /hpf (0-5); pH Urine 7.5 (4.5-7.5)
[2024-07-22 21:25] LABS: Adenovirus PCR Not Detected (NotDetected); Bordetella parapertussis PCR Not Detected (NotDetected); Bordetella pertussis PCR Not Detected (NotDetected); Chlamydia pneumoniae PCR Not Detected (NotDetected); Coronavirus 229E PCR Not Detected (NotDetected); Coronavirus CoV-2 (COVID19)PCR Not Detected (NotDetected); Coronavirus HKU1 PCR Not Detected (NotDetected); Coronavirus NL63 PCR Not Detected (NotDetected); Coronavirus OC43PCR Not Detected (NotDetected); Human Metapneumovirus PCR Not Detected (NotDetected); Influenza A PCR Not Detected (NotDetected); Influenza B PCR Not Detected (NotDetected); Mycoplasma pneumoniae PCR Not Detected (NotDetected); Parainfluenza Virus 1 PCR Not Detected (NotDetected); Parainfluenza Virus 2 PCR Not Detected (NotDetected); Parainfluenza Virus 3 PCR Not Detected (NotDetected); Parainfluenza Virus 4 PCR Not Detected (NotDetected); Respiratory Syncytial VirusPCR Not Detected (NotDetected); Rhinovirus/Enterovirus PCR Not Detected (NotDetected)
[2024-07-22] MEDS: cefTRIAXone SODIUM 2,000 MG/50 ML BAG IV STA (22:12)
[2024-07-22 22:16] LABS: Creatine Kinase 71 U/L (30-223)
--- NOTE | 2024-07-22 22:37 | History & Physical Report ---
Date of Service July 22, 2024 Assessment & Plan (1) JEFFERY (acute kidney injury): (2) UTI (urinary tract infection): (3) Hypotension: (4) Venous stasis ulcers of both lower extremities: (5) Hypoxia: (6) Transaminitis: (7) HFrEF (heart failure with reduced ejection fraction): Plan Patient is an 78-year-old male with a past medical history of chronic wounds on chronic suppressive therapy with Bactrim, hypertension, A-fib on Xarelto, HFrEF on Bumex, GERD, rheumatoid arthritis, osteoarthritis, untreated LEONARD, anxiety and depression, urinary incontinence. He was admitted from 06/10 to 06/22 to bilateral leg cellulitis 2/2 chronic wound completed a course of daptomycin and ertapenem x 14 days. He was found to have an JEFFERY with creatinine of 1.78 along with a UTI. He has been on Bactrim for chronic suppressive therapy for approximately 4 to 5 days. #JEFFERY/UTI suspect 2/2 UTI vs medication induced (recently start chronic Bactrim, on Bumex and Entresto) Cr increased from 1.22 to 1.78, BUN elevated to 44 UA infectious with 3+ glucose, 1+ blood, positive nitrite, 2+ leukocyte esterase, >50 WBC, 3-5 RBC, 3-5 hyaline casts, 4+ bacteria - history of Klebsiella susceptible to Zosyn 01/21/2024 - treatment with IV Zosyn - follow urine cultures given 1l NSS bolus in ed; Continue gentle resuscitation with 1L NSS at 80 mL/hour - caution with IV fluid he is given heart failure history trend BMP hold nephrotoxic agents Bactrim, Bumex, Entresto avoid NSAIDs #hypotension likely volume depletion on chronic diuretics contributing to JEFFERY above as low as 92/52 in ED does not appear to be septic from UTI as no leukocytosis, lactate negative, all other VSS follow blood cultures 1L NSS bolus along with gentle resuscitation x 1 bag overnight Continue metoprolol with holding precautions #chronic venous stasis ulcers/ history of fraction total joint prosthesis of knee/ PAD admission 06/10 to 06/22 and completed course of daptomycin and ertapenem x 14 days - eval by vascular and podiatry Cultures 06/02/24 grew VRE Enterococcus faecalis Cultures 07/14/24 grew MRSA and ESBL Proteus mirabilis Transition from chronic doxycycline therapy to chronic Bactrim therapy this week Follows with wound care - wound care consulted, Dressing changes 07/22 Holding Bactrim with JEFFERY above Transition to daptomycin (MRSA and VRE coverage) and Zosyn for UTI above (ESBL coverage) continue gabapentin #hypoxia Patient with history of LEONARD, untreated, has referral to sleep study clinic outpatient O2 dropped to 88% on RA while sleeping in ED Started on 2L NC Wean oxygen as tolerated CXR negative #transaminitis AST 56, ALT 59 Does endorse chronic Tylenol use, acetaminophen level ordered ck negative, 71 does endorse daily alcohol use, approximately 3 glasses of wine each night with dinner hold statin Trend CMP #HFpEF On Bumex 0.5mg and Entresto at home, holding with above hold Jardiance echo 04/01/2024 showed EF 35 to 40%, global hypokinesis, septal motion consistent with BBB Clinically appears dry Strict I's and O's and daily weights Chronic stable diagnoses: a fib - continue Xarelto and amiodarone anemia - stable, continue iron supplement depression - continue duloxetine insomnia- melatonin and mirtazapine hld- holding statin urinary incontinence - continue tamsulosin VTE ppx: continue Xarelto Diet: heart healthy, low na Dispo: med/tele Admission and Anticipated Discharge Date Admission Date: 07/22/24 History of Present Illness Chief Complaint: hypotension Primary Care Provider: Danny Soliman DO Patient is an 78-year-old male with a past medical history of chronic wounds on chronic suppressive therapy with Bactrim, hypertension, A-fib on Xarelto, HFrEF on Bumex, GERD, rheumatoid arthritis, osteoarthritis, untreated LEONARD, anxiety and depression, urinary incontinence. He was admitted from 06/10 to 06/22 to bilateral leg cellulitis 2/2 chronic wound completed a course of daptomycin and ertapenem x 14 days. He was found to have an JEFFERY with creatinine of 1.78 along with a UTI. He has been on Bactrim for chronic suppressive therapy for approximately 4 to 5 days. Patient seen at bedside. He stated that he has had burning with urination for several days and has felt overall poor. [facility] stated [facility] had abnormal renal function and elevated potassium on his labs and also found him to have a systolic blood pressure around 90. He was recommended to come to the ER but he wanted to go home. He stated he went home and slept all afternoon and then decided to come in because he felt so poor. He also endorses dyspnea on exertion, however chronic. He feels dehydrated and that his mouth is dry right now. He denies fever or chills. He stated his bilateral LE wounds are improving and he has dressing changes every few days. He stated he also takes Tylenol 2 times a day every day with his gabapentin. He denies chest pain, abdominal pain, nausea, vomiting, diarrhea. He stated his bilateral lower extremity edema is at his baseline. Patient denies nicotine use. He does endorse daily alcohol use drinking approximately 3 glasses of wine a day with dinner. Denies past history of DM or previous VTE. He does not use oxygen at baseline, however has been diagnosed with LEONARD but has not undergone a sleep study yet. He did take his morning medications today but is due for his evening medications. He stated he believes he took his Xarelto with dinner today. He wishes to be full code. Allergies Allergy/AdvReac Type Severity Reaction Status Date / Time cat dander Allergy Severe CAT Verified 07/22/24 09:12 HAIR---Swelling of Lip/Tongue/Throat Home Medications Medication Instructions Recorded Confirmed Type aspirin 81 mg tablet,delayed 81 mg PO QAM 08/07/22 07/22/24 History release (Adult Low Dose Aspirin) cyanocobalamin (vitamin B-12) 500 1,000 mcg (2 x 500 mcg) PO QAM #30 01/18/23 07/22/24 Rx mcg tablet tabs duloxetine 60 mg capsule,delayed 60 mg PO QAM #90 caps 10/29/23 07/22/24 Rx release rivaroxaban 20 mg tablet (Xarelto) 20 mg PO QPM 11/19/23 07/22/24 History sennosides 8.6 mg tablet 8.6 mg PO BID 12/15/23 07/22/24 History mirtazapine 30 mg tablet 30 mg PO HS 01/21/24 07/22/24 History nitroglycerin 0.4 mg sublingual 0.4 mg sublingual DIRECTED PRN 01/21/24 07/22/24 History tablet chest pin pravastatin 40 mg tablet 40 mg PO HS 01/21/24 07/22/24 History vitamin E 268 mg (400 unit) capsule 268 mg PO DAILY ##0 01/21/24 07/22/24 History acetaminophen 325 mg tablet 975 mg PO Q8H PRN mild pain,fever, 01/26/24 07/22/24 History or headache latanoprost 0.005 % eye drops 1 drp OPB QPM 03/29/24 07/22/24 History vitamin B comp and C no.3 15 mg-10 1 cap PO DAILY 03/29/24 07/22/24 History mg-50 mg-5 mg-300 mg capsule (B Complex Plus Vitamin C) metoprolol succinate 25 mg 25 mg PO QAM #30 tabs 04/07/24 07/22/24 Rx tablet,extended release 24 hr empagliflozin 10 mg tablet 10 mg PO DAILY #90 tabs 05/11/24 07/22/24 Rx (Jardiance) ferrous sulfate 325 mg (65 mg 325 mg PO DAILY #90 tabs 05/11/24 07/22/24 Rx iron) tablet sacubitril 24 mg-valsartan 26 mg 1 tab PO BID #180 tabs 05/11/24 07/22/24 Rx tablet (Entresto) gabapentin 600 mg tablet 600 mg PO TID neuropathy from 05/12/24 07/22/24 Rx severe PVD wounds 1 month #90 tabs bumetanide 0.5 mg tablet 0.5 mg PO DAILY 05/27/24 07/22/24 History amiodarone 400 mg tablet 400 mg PO AMPM 07/04/24 07/22/24 History cholecalciferol (vitamin D3) 25 25 mcg PO DAILY 07/04/24 07/22/24 History mcg (1,000 unit) capsule sulfamethoxazole 800 1 tab PO DAILY 07/14/24 07/22/24 History mg-trimethoprim 160 mg tablet (Bactrim DS) Probiotic 1 cap PO QAM 07/22/24 07/22/24 History collagenase clostridium histo. 250 1 applic topical DAILY #30 grams 07/22/24 07/22/24 Rx unit/gram topical ointment (Santyl) diclofenac sodium 1 % topical gel 0 g topical QID 07/22/24 07/22/24 History diphenhydramine HCl 25 mg tablet 25 mg PO Q6 PRN Itching 07/22/24 07/22/24 History (Benadryl Allergy) esomeprazole magnesium 40 mg 40 mg PO HS 07/22/24 07/22/24 History capsule,delayed release (Nexium) glucosamine sulfate 500 mg tablet 500 mg PO DAILY 07/22/24 07/22/24 History (Glucosamine) guaifenesin 100 mg/5 mL oral liquid 200 mg PO Q4H PRN Cough 07/22/24 07/22/24 History hydrocodone 5 mg-acetaminophen 325 1 tab PO Q6 PRN Moderate Pain 07/22/24 07/22/24 History mg tablet (Scale Score 5-6) melatonin 3 mg tablet 6 mg PO HS 07/22/24 07/22/24 History multivitamin 1 tab PO QAM 07/22/24 07/22/24 History omega-3 fatty acids 1,250 mg 1,250 mg PO QAM 07/22/24 07/22/24 History capsule tamsulosin 0.4 mg capsule 0.4 mg PO HS 07/22/24 07/22/24 History Past Med/Surg History Problem List (Updated 07/22/24 @ 22:44 by Lora Castellanos PA-C) HFrEF (heart failure with reduced ejection fraction) Transaminitis Hypoxia Venous stasis ulcers of both lower extremities UTI (urinary tract infection) JEFFERY (acute kidney injury) Non-pressure chronic ulcer of other part of left foot limited to breakdown of skin Non-pressure chronic ulcer of other part of right foot limited to breakdown of skin Peripheral arterial disease (Chronic) Pressure ulcer of right foot, stage 3 Chronic diastolic heart failure History of infection of total joint prosthesis of knee Atrial fibrillation History of MRSA infection Recurrent cellulitis of lower extremity (Acute) Polyneuropathy Depression Atrial flutter (Acute) Atrial fibrillation with RVR Open wound of knee (Acute) Venous ulcers of both lower extremities (Acute) Pain associated with wound Palliative care by specialist Advanced care planning/counseling discussion Back pain VRE bacteremia Ambulatory dysfunction Infection of prosthetic right knee joint Weakness (Acute) Fall (Acute) Anemia (Acute) Hypomagnesemia (Acute) Hypotension (Acute) Bilateral cellulitis of lower leg (Acute) Peripheral neuropathy Chronic venous stasis Cellulitis of both feet (Acute) Rheumatoid arthritis Open wound of foot Open wound of right hand (Acute) Chronic wound Lymphangitis of lower extremity Hypomagnesemia (Acute) Open wound of left upper arm (Acute) Open wound of left arm with tendon injury Gram-negative bacteremia Cellulitis of right lower extremity (Acute) Generalized weakness (Acute) Elevated procalcitonin (Acute) Acute kidney injury superimposed on chronic kidney disease (Acute) Skin tear of right upper extremity (Acute) Open wound of left foot (Acute) Open wound of right foot (Acute) Skin tear of right hand without complication (Acute) Venous ulcer of left leg (Acute) Traumatic open wound of right lower leg (Acute) Elevated LFTs MRSA bacteremia Dislocation, hip closed (Acute) Dislocation, hip, posterior Rotator cuff arthropathy of both shoulders Abrasion of right knee (Acute) Pain of right hip Prophylactic antibiotic Left shoulder pain Acquired foot deformity (Chronic) Traumatic wound (Acute) Pressure ulcer of left foot, stage 3 (Acute) Abnormal ankle brachial index (Acute) Right knee pain Non-ST elevation MA (NSTEMI) (Acute) Leukocytosis (Acute) Myoclonus Cervical radiculopathy Neuropathy Weakness On amiodarone therapy Weakness of right hip Constipation Sepsis following procedure Rhabdomyolysis MRSA infection History of CHF (congestive heart failure) Visual disturbance Hyponatremia Hypotension Acute metabolic encephalopathy Abdominal wall abscess (Acute) HFrEF (heart failure with reduced ejection fraction) EF 40% Mar 2022, improved 55-60% August 2022 Lumbar stenosis Osteoarthritis of right knee Anxiety and depression Hypertension Coronary artery disease Atherogenic dyslipidemia Lumbar radiculopathy Lower extremity weakness Degenerative spondylolisthesis Chronic low back pain Scoliosis of lumbar region due to degenerative disease of spine in adult Dislocation of hip, right, closed (Acute) Septic joint of right knee joint COVID-19 (Acute) Incisional hernia Incarcerated intra-abdominal hernia (Acute) Adjustment disorder with mixed anxiety and depressed mood Medical History Hyperkalemia Lethargy JEFFERY (acute kidney injury) Ischemic ulcer of left foot Ischemic ulcer of right foot Bilateral lower leg cellulitis PVD (peripheral vascular disease) Atrial flutter with rapid ventricular response Open wound of left lower extremity Sepsis secondary to UTI Fever Sepsis due to skin infection Sepsis Fall Infected hardware in right leg Chronic infection of right knee UTI (urinary tract infection) Severe sepsis Venous ulcer of right leg Venous stasis ulcers of both lower extremities Idiopathic polyneuropathy History of immunosuppressive therapy Heart failure with preserved ejection fraction GERD (gastroesophageal reflux disease) Sepsis Septicemia due to Streptococcus pneumoniae Respiratory failure with hypoxia Hypomagnesemia Pneumonia Benign essential hypertension Lumbar stenosis Hx of staphylococcal infection 03/2022, w/"bacterial infection" at the same, in the rt. knee, occurrred during atrial fibrillation episode. "when he woke up, he couldn't walk." Atrial fibrillation episode occurred in 03/2022, taken to [facility] in [place], admitted to ICU for 1-2 weeks (was not intubated, but wasn't "awake either"), then to cardiac unit, then to rehab at [facility]; f/u dr. guerra in [place]>will be starting to see a kaiako kura kaupapa maori at [facility] 2nd week of 08/2022 Myocardial Infarction "a silent one, 2019" Sleep apnea no device Surgical History Status post revision of total replacement of right knee Hx of Achilles tendon repair rt. Hx of knee surgery rt. patellar tendon repair Hx of rotator cuff surgery bilateral Hx of total knee replacement lt. Hx of total hip arthroplasty rt. History of colostomy reversal History of bowel resection for diverticulitis; w/colostomy placement for 3-4 months Hx of hernia repair near former colostomy site History of esophagogastroduodenoscopy (EGD) Hx of colonoscopy Last Colonoscopy 08/14/22, repeat 3 years in 2025 Hx of bilateral cataract extraction History of heart artery stent ~3 years ago, x2 stents, done in [place]; f/u dr guerra, [place]>will be seeing new cardio at [place] week of August 2022. History of cardiac cath ~3 years ago, SOB and "felt like throat was constricting", had "silent heart attack", x2 stents, done in [place] Family History Grandmother (Maternal) Diabetes Daughter Diabetes Father Suicide Hypertension Denies family history of Ovarian cancer Prostate cancer Myocardial infarction Breast cancer Lung cancer Colorectal cancer Stroke Social History Smoking Status: Never smoker Second Hand Exposure: No; Do You Dip or Chew Tobacco: No; Hx Alcohol Use: Yes Alcohol type: wine Alcohol Intake Frequency: 4 or More x per/Week Hx Substance Use: No Preferred Language: Irish Communication Ability: Effective Visual Impairment: Limited Hearing Ability: Normal 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 Beliefs That Will Affect Care: None marital status: Single Current Living Situation: Other Current Living Situation Comment: [facility] - independent living current occupational status: retired How many Children do You have: 2 Other Information That Helps Us Care for You: No Feels Safe at Home: Yes Safety Concerns: Feels Safe At This Time Childhood Exposure to Second-Hand Smoke: Yes Diet: regular caffeine: Yes Dental Care, Regularly: Yes Physical Activity Frequency: Does not Exercise Seatbelt Use: always Sunscreen Use: Yes Assistive Devices: Wheelchair Review of Systems Review of Systems: see HPI Physical Exam Physical Exam: The patient is awake, alert and oriented 3, normocephalic and atraumatic, in no acute distress. Non-toxic appearing. HEENT- EOMI, mucous membranes dry. Hearing grossly intact. Heart-normal S1 and S2. No murmurs, rubs or gallops. Lungs-clear bilaterally, no respiratory distress, no accessory muscle use. Abdomen-normal bowel sounds and soft. No ascites noted. Non-tender. Extremities- no clubbing, cyanosis. BL dressings and teds in place. Rheumatologic-normal range of motion. Psychiatric-normal affect. Results & Data Results & Data Vital Signs (Past 12 Hours) Vital Signs Temp Pulse Resp BP Pulse Ox O2 Del Method 07/22/24 22:02 60 17 113/60 96 07/22/24 21:50 62 17 98 07/22/24 21:46 126/71 07/22/24 21:46 126/71 07/22/24 21:41 64 15 97 07/22/24 21:30 106/70 07/22/24 21:26 59 L 17 97 07/22/24 21:15 107/65 07/22/24 21:15 107/65 07/22/24 21:00 112/62 07/22/24 20:56 88 L Room Air 07/22/24 20:53 62 19 112/62 93 07/22/24 20:38 61 17 102/64 91 07/22/24 20:32 61 17 146/71 H 90 07/22/24 20:26 76 22 93 07/22/24 20:20 19 90 Room Air 07/22/24 20:02 70 16 100/48 L 90 07/22/24 19:56 57 L 16 100/44 L 94 07/22/24 19:35 56 L 22 93 07/22/24 19:25 116/67 07/22/24 19:25 116/67 07/22/24 19:11 59 L 18 07/22/24 19:02 59 L 17 90 07/22/24 18:48 Room Air 07/22/24 18:47 61 18 92/52 L 07/22/24 18:37 63 07/22/24 18:36 92/52 L 07/22/24 18:36 92/52 L 07/22/24 18:36 92/52 L 07/22/24 18:23 36.8 C 124 H 20 118/50 L 92 Room Air Laboratory Results Reviewed CBC, PT/INR, CMP, Pro-Arsalan, bio fire, UA, troponin, mag, lactate Diagnostic Findings reviewed cxr Medications Administered ed - 1l NSS bolus admission - zosyn +dapto ECG Additional Comments: ordered Code Status & VTE Plan Code Status full code VTE Prophylaxis Plan VTE Prophylaxis will be ordered: Yes Supervising Physician Co-Signing Physician Notes Attending addendum: I have physically seen this patient, have supervised the HEBERT's activities, and agree with the H&P unless as otherwise noted. Assessment and Plan: The patient is an 78-year-old male with past medical history including chronic bilateral lower extremity wounds, chronic suppressive therapy with Bactrim, hypertension, atrial fibrillation on Xarelto, HFrEF on Bumex, GERD, rheumatoid arthritis, osteoarthritis, untreated LEONARD, anxiety and depression, and urinary incontinence. He presents to the emergency department from wound care office due to progressive symptoms of lower extremity cellulitis. He was admitted from 06/10 to 06/22 for bilateral extremity cellulitis, and had completed a 14-day course of daptomycin and ertapenem. Workup in the emergency department included an elevated creatinine to 1.78. Patient has been on Bactrim for chronic suppressive therapy for the past 4 to 5 days. #Chronic venous insufficiency sleep stasis ulcers- As noted above patient completed a 14-day course of daptomycin and ertapenem from 06/10-06/22/2024 Wound cultures from feet on 07/14/2024 showing MRSA and VRE Cultures from 06/02/2025 show ESBL E. coli Patient will be placed on daptomycin IV and Zosyn IV to cover potential pathogens Follow all culture and sensitivities #Acute kidney injury- Patient recently on Bactrim for the past 5 days for prophylaxis Creatinine 1.78 with base 1.22 Creatinine was noted to be 1.88 on 06/20/2024 Potassium 5.0 this evening NSS 80 mL/h x 1 L Repeat laboratories in the a.m. and adjust IV fluids as needed #Urinary tract infection- Follow urine culture and sensitivity Empiric antibiotics as above for cellulitis will cover any UA pathogens as well #Relative hypotension- Secondary to infection and volume depletion while on diuretics IV fluids as noted IV antibiotics as noted Status post 1 L normal saline bolus in ED Continue NSS at 80 mL/h x 1 L overnight Holding metoprolol PG Care Time/CCT Total # of Minutes Spent Total Time Spent with Patient: Total time spent is greater than 50% in coordination of care (as documented) at patient's floor/unit and/or counseling patient: Coding Level of Care Code 55003 INT INP/OBS CARE 375MIN Diagnoses JEFFERY (acute kidney injury) N17.9 UTI (urinary tract infection) N39.0 Hypotension I95.9 Hypotension type: unspecified hypotension type Venous stasis ulcers of both lower extremities I83.019; I83.029; L97.919; L97.929 Hypoxia R09.02 Transaminitis R74.01 HFrEF (heart failure with reduced ejection fraction) I50.20 (3) Hypotension Hypotension type: unspecified hypotension type Qualified Code(s): I95.9 - Hypotension, unspecified
[2024-07-22] MEDS: DAPTOmycin 375 MG in SYRINGE 0 ML IV STA (22:55)
[2024-07-22] MEDS: PIPERACILLIN/TAZOBACTAM 4.5 GM/100 ML BAG IV ONE (22:57)
[2024-07-23] MEDS ORDERED: ONDANSETRON INJ 2 MG/ML 2 ML VIAL IV PRN (00:18)
[2024-07-23] MEDS: MELATONIN 3 MG TAB PO SCH (01:03)
[2024-07-23] MEDS: AMIODARONE 200 MG TAB PO SCH (01:03)
[2024-07-23] MEDS: PANTOprazole 40 MG TAB PO SCH (01:03)
[2024-07-23] MEDS: SODIUM CHLORIDE 0.9% 1,000 ML IV SCH (01:03)
[2024-07-23] MEDS: LATANOPROST 0.005% OP SOLN 2.5 ML BTL OPB SCH (01:03)
[2024-07-23] MEDS: TAMSULOSIN HCL 0.4 MG CAP PO SCH (01:03)
[2024-07-23] MEDS: GABAPENTIN 600 MG TAB PO SCH (01:03)
[2024-07-23] MEDS: MIRTAZAPINE TAB 15 MG TAB PO SCH (01:03)
[2024-07-23] MEDS: PIPERACILLIN/TAZOBACTAM 4.5 GM/100 ML BAG IV SCH (05:57)
--- NOTE | 2024-07-23 07:14 | Electrocardiogram Report ---
Test Reason : Blood Pressure : */* mmHG Vent. Rate : 64 BPM Atrial Rate : 64 BPM P-R Int : 206 ms QRS Dur : 120 ms QT Int : 444 ms P-R-T Axes : 71 -44 39 degrees QTcB Int : 458 ms Normal sinus rhythm Left axis deviation Low voltage QRS Non-specific intra-ventricular conduction delay Nonspecific T wave abnormality Abnormal ECG When compared with ECG of 10-Jun-2024 13:20, Premature ventricular complexes are no longer Present Confirmed by Indio Beauchamp ([id number]) on 07/23/2024 7:14:01 AM Referred By: REFERRED SELF Confirmed By: Indio Beauchamp
[2024-07-23 07:37] LABS: Basophils # (auto) 0.02 K/uL (0.00-0.20); Basophils % (auto) 0.3 %; Eosinophils # (auto) 0.23 K/uL (0.00-0.50); Eosinophils % (auto) 3.7 %; Hematocrit (blood only) 36.8 % (42.0-52.0); Hemoglobin 11.9 g/dl (14.0-18.0); Immature Granulocytes # (auto) 0.03 K/uL (0.01-0.20); Immature Granulocytes % (auto) 0.5 %; Lymphocytes # (auto) 0.67 K/uL (1.20-3.40); Lymphocytes % (auto) 10.7 %; Mean Corpuscular Hemoglobin 31.2 pg (25.0-34.0); Mean Corpuscular Hgb Conc 32.3 g/dL (32.0-36.0); Mean Corpuscular Volume 96.6 fL (80.0-100.0); Mean Platelet Volume 10.4 fL (9.4-12.4); Monocytes # (auto) 0.81 K/uL (0.11-0.59); Monocytes % (auto) 12.9 %; Neutrophils # (auto) 4.52 K/uL (1.40-6.50); Neutrophils % (auto) 71.9 %; Platelet Count 222 K/uL (130-400); RDW Coefficient of Variation 18.5 % (11.5-14.5); RDW Standard Deviation 65.1 fL (36.4-46.3); Red Blood Count 3.81 M/uL (4.70-6.10); White Blood Count 6.28 K/ul (4.8-10.8)
[2024-07-23 08:03] LABS: Albumin Globulin Ratio 1.1 (0.9-2); Albumin Level 3.1 gm/dl (3.4-5.0); BUN Creatinine Ratio 24.8 (10-20); Bilirubin,Total 0.4 mg/dl (0.2-1.0); Calcium 8.2 mg/dl (8.6-10.3); Creatinine Clr Calc Pharmacy 51.8 ml/min; Globulin 2.7 gm/dl (2.5-4.0); Magnesium 2.1 mg/dl (1.7-2.4); Potassium 4.6 mmol/L (3.5-5.1); Total Protein 5.8 gm/dl (6.0-8.3)
[2024-07-23] MEDS: ASPIRIN 81 MG ECTAB PO SCH (08:11)
[2024-07-23] MEDS: DULoxetine HCL 60 MG CAP PO SCH (08:11)
[2024-07-23] MEDS: FERROUS SULFATE 325 MG TAB PO SCH (08:11)
[2024-07-23] MEDS: METOPROLOL SUCC 25MG EXT REL TAB PO SCH (08:12)
--- NOTE | 2024-07-23 11:18 | Hospitalist Progress Note ---
Date of Service July 23, 2024 Assessment & Plan (1) JEFFERY (acute kidney injury): (2) UTI (urinary tract infection): (3) Hypotension: (4) Venous stasis ulcers of both lower extremities: (5) Hypoxia: (6) Transaminitis: (7) HFrEF (heart failure with reduced ejection fraction): Plan Patient is an 78-year-old male with a past medical history of chronic wounds on chronic suppressive therapy with Bactrim, hypertension, A-fib on Xarelto, HFrEF on Bumex, GERD, rheumatoid arthritis, osteoarthritis, untreated LEONARD, anxiety and depression, urinary incontinence. He was admitted from 06/10 to 06/22 to bilateral leg cellulitis 2/2 chronic wound completed a course of daptomycin and ertapenem x 14 days. He was found to have an JEFFERY with creatinine of 1.78 along with a UTI. He has been on Bactrim for chronic suppressive therapy for approximately 4 to 5 days. He was provided gentle resuscitation IV fluid on admission, caution due to history of heart failure. #JEFFREY/UTI suspect 2/2 UTI vs medication induced (recently start chronic Bactrim, on Bumex and Entresto) Cr increased from 1.22 to 1.78 on admission; now Cr=1.53 UA positive, urine culture prelim growing proteus mirabilis -- history of proteus ESBL and klebsiella UTIs sensitive to Zosyn Continue Zosyn IV q8h held nephrotoxic agents Bactrim, Bumex, Entresto trend BMP and monitor urine culture #Hypotension likely volume depletion on chronic diuretics - contributing to JEFFERY above does not appear to be septic from UTI as no leukocytosis, lactate negative, all other VSS follow blood cultures, still pending Continue metoprolol with holding precautions #chronic venous stasis ulcers/ history of fraction total joint prosthesis of knee/ PAD admission 06/10 to 06/22 and completed course of daptomycin and ertapenem x 14 days - eval by vascular and podiatry Cultures 06/02/24 grew VRE Enterococcus faecalis Cultures 07/14/24 grew MRSA and ESBL Proteus mirabilis Transition from chronic doxycycline therapy to chronic Bactrim therapy this week Follows with wound care - wound care consulted, Dressing changes 07/22 Holding Bactrim with JEFFERY above Transition to daptomycin (MRSA and VRE coverage) and Zosyn for UTI above (ESBL coverage) continue gabapentin #hypoxia Patient with history of LEONARD, untreated, has referral to sleep study clinic outpatient O2 dropped to 88% on RA while sleeping in ED Started on 2L NC, Wean oxygen as tolerated CXR negative #transaminitis AST, ALT downtrending Does endorse chronic Tylenol use, acetaminophen level <3 ck negative, 71 does endorse daily alcohol use, approximately 3 glasses of wine each night with dinner hold statin Trend CMP #HFpEF On Bumex 0.5mg and Entresto at home, holding with above hold Jardiance echo 04/01/2024 showed EF 35 to 40%, global hypokinesis, septal motion consistent with BBB Clinically appears dry Strict I's and O's and daily weights Chronic stable diagnoses: a fib - continue Xarelto and amiodarone anemia - stable, continue iron supplement depression - continue duloxetine insomnia- melatonin and mirtazapine hld- holding statin urinary incontinence - continue tamsulosin VTE ppx: continue Xarelto Diet: heart healthy, low na Dispo: med/tele Admission and Anticipated Discharge Date Admission Date: July 22, 2024 Supervising Physician Co-Signing Physician Notes Attending Attestation - Chart reviewed, care plan d/w ISREAL Fields. I agree w/ the lubin components of her documentation. Mr Palacio is well known to the [facility] Hospitalist service due to frequent admissions. Has evidence of UTI with JEFFERY. Agree w/ plans as outlined by Donnie. Will need PT/OT while here. Shaheen Vance MD Subjective Patient seen and evaluated at bedside. He wakes up to my voice but easily falls back asleep and appears fairly lethargic. He denies acute pain anywhere. Reports that he feels tired. Discussed the current plan. No additional complaints or concerns at this time. Physical Exam Physical Exam: General: Lethargic, but does wake to voice and responds appropriately before quickly falling back asleep. No acute distress. Cardiac: Regular rate and rhythm without murmurs gallops or rubs. Pulm: Clear to auscultation bilaterally without wheezes, rales or rhonchi. No respiratory distress. 99% on 1L. Abdominal: Soft, nontender, nondistended. Bowel sounds present. Neuro: A&O x3. No focal neurological deficits. Extremities: Lower extremities covered in dressings bilaterally, clean/dry/intact. Results & Data Results & Data Vital Signs (Past 12 Hours) Vital Signs Temp Pulse Pulse Resp BP Pulse Ox O2 Del Method 07/23/24 09:49 Nasal Cannula 07/23/24 07:26 98.2 F 69 20 156/81 H 95 Room Air 07/23/24 07:21 66 07/23/24 04:22 98.2 F 67 18 133/73 90 Room Air 07/23/24 00:23 Nasal Cannula 07/23/24 00:23 98.4 F 16 139/86 96 Room Air 07/23/24 00:22 59 L O2 Flow Rate 07/23/24 09:49 2 07/23/24 07:26 07/23/24 07:21 07/23/24 04:22 07/23/24 00:23 2 07/23/24 00:23 2 07/23/24 00:22 Laboratory Results Reviewed CBC with differential Reviewed CMP Reviewed UA, urine/blood cultures PG Care Time/CCT Total # of Minutes Spent Total Time Spent with Patient: Total time spent is greater than 50% in coordination of care (as documented) at patient's floor/unit and/or counseling patient: Coding Level of Care Code 94214 SUB INP/OBS CARE 235MIN Diagnoses JEFFERY (acute kidney injury) N17.9 UTI (urinary tract infection) N39.0 Hypotension I95.9 Hypotension type: unspecified hypotension type Venous stasis ulcers of both lower extremities I83.019; I83.029; L97.919; L97.929 Hypoxia R09.02 Transaminitis R74.01 HFrEF (heart failure with reduced ejection fraction) I50.20 (3) Hypotension Hypotension type: unspecified hypotension type Qualified Code(s): I95.9 - Hypotension, unspecified
[2024-07-23] MEDS: RIVAROXABAN 20 MG TAB PO SCH (20:07)
[2024-07-23] MEDS: DAPTOmycin 375 MG in SYRINGE 0 ML IV SCH (21:10)
[2024-07-23] MEDS: HYDROCODONE/ACETAMOPHEN 5/325MG TAB PO PRN (21:13)
[2024-07-23] MEDS: oxyCODONE HCL IR 5 MG TAB (IMMEDIATE RELEASE) PO STA (23:51)
[2024-07-24] MEDS: MICONAZOLE NITRATE POWDER 85 GM EXT SCH (05:34)
[2024-07-24 07:03] LABS: Basophils # (auto) 0.02 K/uL (0.00-0.20); Basophils % (auto) 0.3 %; Eosinophils # (auto) 0.25 K/uL (0.00-0.50); Eosinophils % (auto) 3.9 %; Hematocrit (blood only) 35.1 % (42.0-52.0); Hemoglobin 11.1 g/dl (14.0-18.0); Immature Granulocytes # (auto) 0.03 K/uL (0.01-0.20); Immature Granulocytes % (auto) 0.5 %; Lymphocytes % (auto) 9.5 %; Mean Corpuscular Hemoglobin 30.7 pg (25.0-34.0); Mean Corpuscular Hgb Conc 31.6 g/dL (32.0-36.0); Mean Corpuscular Volume 97.2 fL (80.0-100.0); Mean Platelet Volume 10.1 fL (9.4-12.4); Monocytes # (auto) 0.73 K/uL (0.11-0.59); Monocytes % (auto) 11.5 %; Neutrophils % (auto) 74.3 %; Platelet Count 194 K/uL (130-400); RDW Coefficient of Variation 18.6 % (11.5-14.5); Red Blood Count 3.61 M/uL (4.70-6.10); White Blood Count 6.33 K/ul (4.8-10.8)
[2024-07-24 07:30] LABS: Albumin Globulin Ratio 1.1 (0.9-2); Albumin Level 2.8 gm/dl (3.4-5.0); BUN Creatinine Ratio 20.3 (10-20); Bilirubin,Total 0.4 mg/dl (0.2-1.0); Calcium 8.1 mg/dl (8.6-10.3); Creatinine Clr Calc Pharmacy 59.7 ml/min; Globulin 2.5 gm/dl (2.5-4.0); Magnesium 2.1 mg/dl (1.7-2.4); Potassium 4.2 mmol/L (3.5-5.1); Total Protein 5.3 gm/dl (6.0-8.3)
[2024-07-24] MEDS: HYDROCODONE/ACETAMOPHEN 5/325MG TAB PO PRN (07:56)
[2024-07-24] MEDS: ERTAPENEM 1000MG 1,000 MG/10 ML SYR IV SCH (10:41)
--- NOTE | 2024-07-24 19:30 | Hospitalist Progress Note ---
Date of Service July 24, 2024 Assessment & Plan (1) JEFFERY (acute kidney injury): (2) UTI (urinary tract infection): (3) Hypotension: (4) Venous stasis ulcers of both lower extremities: (5) Hypoxia: (6) Transaminitis: (7) HFrEF (heart failure with reduced ejection fraction): Plan Patient is an 78-year-old male with a past medical history of chronic wounds on chronic suppressive therapy with Bactrim, hypertension, A-fib on Xarelto, HFrEF on Bumex, GERD, rheumatoid arthritis, osteoarthritis, untreated LEONARD, anxiety and depression, urinary incontinence. He was admitted from 06/10 to 06/22 to bilateral leg cellulitis 2/2 chronic wound completed a course of daptomycin and ertapenem x 14 days. Did not appear septic on admission as no leukocytosis, lactate negative, all other VSS. He was found to have an JEFFERY with creatinine of 1.78 along with a UTI. He has been on Bactrim for chronic suppressive therapy for approximately 4 to 5 days. He was provided gentle resuscitation IV fluid on admission, caution due to history of heart failure. #JEFFERY/UTI suspect 2/2 UTI vs medication induced (recently start chronic Bactrim, on Bumex and Entresto) JEFFERY now resolved with Cr=1.33 Urine culture prelim proteus mirabilis ESBL Blood cultures negative > 24 hours Switched to Ertapenem 1 g IV q24h, discontinued Zosyn IV q8h Hold nephrotoxic agents Bactrim, Bumex, Entresto, plan to resume on discharge Plan to discharge on IV Ertapenem through 08/03/24 Informed case management of plan for discharge 07/25 Plan for HH and daughter to assist with IV antibiotics at home #Hypotension likely volume depletion on chronic diuretics contributed to JEFFERY above Hypotension resolved, BP stable Continue metoprolol #chronic venous stasis ulcers/ history of fraction total joint prosthesis of knee/ PAD Transitioned from chronic doxycycline therapy to chronic Bactrim therapy week prior to admission Continue Daptomycin for MRSA and VRE wound prophylaxis while Bactrim is on hold; plan to resume Bactrim on discharge Continue wound care Continue gabapentin #hypoxia Patient with history of LEONARD, untreated, has referral to sleep study clinic outpatient O2 dropped to 88% on RA while sleeping in ED Weaned off O2 and now remains stable on room air CXR negative #transaminitis AST, ALT elevated but stable Does endorse chronic Tylenol use, acetaminophen level <3 ck negative, 71 does endorse daily alcohol use, approximately 3 glasses of wine each night with dinner hold statin while on dapto IV Trend CMP #HFpEF On Bumex 0.5mg and Entresto at home, holding with above hold Jardiance given UTI, hold until end of UTI treatment echo 04/01/2024 showed EF 35 to 40%, global hypokinesis, septal motion consistent with BBB Strict I's and O's and daily weights Clinically appears euvolemic at this time Chronic stable diagnoses: a fib - continue Xarelto and amiodarone anemia - stable, continue iron supplement depression - continue duloxetine insomnia- melatonin and mirtazapine hld- holding statin urinary incontinence - continue tamsulosin VTE ppx: continue Xarelto Dispo: anticipate discharge 07/25 on IV Ertapenem with home health and daughter to assist Updated daughter at bedside Coordinated discharge planning with case management Discussed antibiotics with pharmacy and switched Zosyn to Ertapenem Admission and Anticipated Discharge Date Admission Date: July 22, 2024 Supervising Physician Co-Signing Physician Notes Attending Attestation - Chart reviewed, care plan d/w ISREAL Fields. I agree w/ the lubin components of her documentation. UTI with JEFFERY - improving. Urine cx with ESBL Proteus -- sens to Ertapenem; change zosyn to Ertapenem once daily. Patient inquiring about d/c to home tomorrow? Given the urine cx results and need for IV abx his discharge will be complex. Will involve social work tomorrow for dispo planning. Shaheen Vance MD Subjective Patient seen and evaluated at bedside with his daughter present. He is much more awake today. Reports feeling significantly better. He would like to be discharged on Thursday so he can make it [facility]. We discussed his JEFFERY has resolved and his urine culture is showing Proteus Mirabilis ESBL and will require IV antibiotics on discharge. He is understanding. Patient's daughter confirms that patient cannot do IV antibiotics independently at home, as they have tried previously and was difficult. Will begin to coordinate care for discharge on IV antibiotics. No additional complaints or concerns at this time. Physical Exam Physical Exam: General: No acute distress, nondiaphoretic, well-developed, well-nourished. Much more awake/alert today. Cardiac: Regular rate and rhythm without murmurs gallops or rubs. Pulm: Clear to auscultation bilaterally without wheezes, rales or rhonchi. No respiratory distress. 98% on room air. Abdominal: Soft, nontender, nondistended. Bowel sounds present. No suprapubic tenderness. Neuro: A&O x3. No focal neurological deficits. Extremities: Lower extremities covered in dressings bilaterally, clean/dry/intact. Minor swelling in feet, consistent with baseline status for patient. Results & Data Results & Data Vital Signs (Past 12 Hours) Vital Signs Temp Pulse Pulse Resp BP Pulse Ox O2 Del Method 07/24/24 16:51 98.3 F 66 16 150/84 H 98 Room Air 07/24/24 13:56 61 07/24/24 12:07 98.6 F 70 16 131/73 96 Room Air 07/24/24 08:27 Nasal Cannula 07/24/24 08:03 97.5 F L 71 16 130/73 90 Room Air O2 Flow Rate 07/24/24 16:51 07/24/24 13:56 07/24/24 12:07 07/24/24 08:27 1 07/24/24 08:03 Laboratory Results Reviewed CBC with differential Reviewed CMP Reviewed urine culture Reviewed blood cultures PG Care Time/CCT Total # of Minutes Spent Total Time Spent with Patient: Total time spent is greater than 50% in coordination of care (as documented) at patient's floor/unit and/or counseling patient: Coding Level of Care Code 88833 SUB INP/OBS CARE 3/50MIN Diagnoses JEFFERY (acute kidney injury) N17.9 UTI (urinary tract infection) N39.0 Hypotension I95.9 Hypotension type: unspecified hypotension type Venous stasis ulcers of both lower extremities I83.019; I83.029; L97.919; L97.929 Hypoxia R09.02 Transaminitis R74.01 HFrEF (heart failure with reduced ejection fraction) I50.20 (3) Hypotension Hypotension type: unspecified hypotension type Qualified Code(s): I95.9 - Hypotension, unspecified
[2024-07-24] MEDS: ALBUT/IPRATROP 3MG/0.5MG NEB 3 ML VIAL NEB PRN (21:53)
[2024-07-25 07:28] LABS: Hemoglobin 11.6 g/dl (14.0-18.0); Mean Corpuscular Hemoglobin 31.1 pg (25.0-34.0); Mean Corpuscular Hgb Conc 32.2 g/dL (32.0-36.0); Mean Corpuscular Volume 96.5 fL (80.0-100.0); Mean Platelet Volume 9.9 fL (9.4-12.4); Platelet Count 207 K/uL (130-400); RDW Coefficient of Variation 18.5 % (11.5-14.5); RDW Standard Deviation 65.1 fL (36.4-46.3); Red Blood Count 3.73 M/uL (4.70-6.10); White Blood Count 5.58 K/ul (4.8-10.8)
[2024-07-25 07:47] LABS: Albumin Globulin Ratio 1.2 (0.9-2); BUN Creatinine Ratio 20.5 (10-20); Bilirubin,Total 0.4 mg/dl (0.2-1.0); Calcium 8.4 mg/dl (8.6-10.3); Creatinine Clr Calc Pharmacy 64.8 ml/min; Globulin 2.5 gm/dl (2.5-4.0); Potassium 4.3 mmol/L (3.5-5.1); Total Protein 5.5 gm/dl (6.0-8.3)
--- NOTE | 2024-07-25 11:11 | Hospitalist Progress Note ---
Date of Service July 25, 2024 Assessment & Plan (1) JEFFERY (acute kidney injury): (2) UTI (urinary tract infection): (3) Hypotension: (4) Venous stasis ulcers of both lower extremities: (5) Hypoxia: (6) Transaminitis: (7) HFrEF (heart failure with reduced ejection fraction): Plan Patient is an 78-year-old male with a past medical history of chronic wounds on chronic suppressive therapy with Bactrim, hypertension, A-fib on Xarelto, HFrEF on Bumex, GERD, rheumatoid arthritis, osteoarthritis, untreated LEONARD, anxiety and depression, urinary incontinence. He was admitted from 06/10 to 06/22 to bilateral leg cellulitis / chronic wound completed a course of daptomycin and ertapenem x 14 days. Did not appear septic on admission as no leukocytosis, lactate negative, all other VSS. He was found to have an JEFFERY with creatinine of 1.78 along with a UTI. He has been on Bactrim for chronic suppressive therapy for approximately 4 to 5 days. He was provided gentle resuscitation IV fluid on admission, caution due to history of heart failure. Urine culture grew proteus mirabilis ESBL, blood cultures negative >48 hours. #JEFFERY/UTI Suspect JEFFERY secondary to UTI vs medication induced (recently start chronic Bactrim, on Bumex and Entresto) JEFFERY now resolved with Cr=1.22 Urine culture prelim proteus mirabilis ESBL Continue Ertapenem 1 g IV q24h through 08/03/24 Antibiotic script signed/given to case management US guided peripheral IV placed 07/25/24 Plan for home health / [facility] / daughter to assist in IV antibiotic at home Hold nephrotoxic agents Bactrim, Bumex, Entresto, plan to resume on discharge #Hypotension likely volume depletion on chronic diuretics contributed to JEFFERY above Hypotension resolved, BP stable Continue metoprolol #chronic venous stasis ulcers/ history of fraction total joint prosthesis of knee/ PAD Transitioned from chronic doxycycline therapy to chronic Bactrim therapy week prior to admission Continue Daptomycin for MRSA and VRE wound prophylaxis while Bactrim is on hold; plan to resume Bactrim on discharge Continue wound care Continue gabapentin #hypoxia Patient with history of LEONARD, untreated, has referral to sleep study clinic outpatient O2 dropped to 88% on RA while sleeping in ED Weaned off O2 and now remains stable on room air CXR negative #transaminitis AST, ALT elevated but stable Does endorse chronic Tylenol use, acetaminophen level <3 . ck negative, 71 does endorse daily alcohol use, approximately 3 glasses of wine each night with dinner hold statin while on dapto IV Trend CMP #HFpEF On Bumex 0.5mg and Entresto at home, holding with above hold Jardiance given UTI, hold until end of UTI treatment echo 04/01/2024 showed EF 35 to 40%, global hypokinesis, septal motion consistent with BBB Strict I's and O's and daily weights Clinically appears euvolemic at this time Chronic stable diagnoses: a fib - continue Xarelto and amiodarone anemia - stable, continue iron supplement depression - continue duloxetine insomnia- melatonin and mirtazapine hld- holding statin urinary incontinence - continue tamsulosin VTE ppx: continue Xarelto Dispo: anticipate discharge 2 AM on IV Ertapenem with home health and daughter to assist Coordinated discharge planning with case management Discussed IV recommendation with IV team Admission and Anticipated Discharge Date Admission Date: July 22, 2024 Supervising Physician Co-Signing Physician Notes Attending Attestation - Chart reviewed, care plan d/w ISREAL Fields. I agree w/ the lubin components of her documentation. UTI with JEFFERY - improved. Creatinine 1.2 today. Urine cx with ESBL Proteus -- sens to Ertapenem; cont such once daily for total 7 doses. Dispo planning. Shaheen Vance MD Subjective Patient seen and evaluated at bedside. He reports feeling well and denies any acute complaints. He had just finished breakfast and ate nearly his full meal. Initially had intended on discharge home today with IV antibiotics, but unfortunately due to federal holiday today, [facility] not open to approve [facility] authorizations. Will plan for discharge home tomorrow morning, 07/26/24. Physical Exam Physical Exam: General: No acute distress, nondiaphoretic, well-developed, well-nourished. Cardiac: Regular rate and rhythm without murmurs gallops or rubs. Pulm: Clear to auscultation bilaterally without wheezes, rales or rhonchi. No respiratory distress. 97% on room air. Abdominal: Soft, nontender, nondistended. Bowel sounds present. No suprapubic tenderness. Neuro: A&O x3. No focal neurological deficits. Extremities: Lower extremities covered in dressings bilaterally, clean/dry/intact. Minor swelling in feet, consistent with baseline status for patient. Results & Data Results & Data Vital Signs (Past 12 Hours) Vital Signs Temp Pulse Pulse Resp BP BP Pulse Ox 07/25/24 08:00 07/25/24 07:54 98.4 F 76 18 114/70 97 07/25/24 07:45 71 07/25/24 03:53 98.1 F 74 16 107/61 97 O2 Del Method 07/25/24 08:00 Room Air 07/25/24 07:54 Room Air 07/25/24 07:45 07/25/24 03:53 Room Air Laboratory Results Reviewed CBC Reviewed CMP Reviewed urine culture Reviewed blood cultures PG Care Time/CCT Total # of Minutes Spent Total Time Spent with Patient: Total time spent is greater than 50% in coordination of care (as documented) at patient's floor/unit and/or counseling patient: Coding Level of Care Code 22766 SUB INP/OBS CARE 3/50MIN Diagnoses JEFFERY (acute kidney injury) N17.9 UTI (urinary tract infection) N39.0 Hypotension I95.9 Hypotension type: unspecified hypotension type Venous stasis ulcers of both lower extremities I83.019; I83.029; L97.919; L97.929 Hypoxia R09.02 Transaminitis R74.01 HFrEF (heart failure with reduced ejection fraction) I50.20 (3) Hypotension Hypotension type: unspecified hypotension type Qualified Code(s): I95.9 - Hypotension, unspecified
[2024-07-25] MEDS: BUMETANIDE 1 MG TAB PO ONE (17:59)
--- NOTE | 2024-07-26 16:15 | Hospitalist Progress Note ---
Date of Service July 26, 2024 Assessment & Plan (1) JEFFERY (acute kidney injury): (2) UTI (urinary tract infection): (3) Hypotension: (4) Venous stasis ulcers of both lower extremities: (5) Hypoxia: (6) Transaminitis: (7) HFrEF (heart failure with reduced ejection fraction): Plan Patient is an 78-year-old male with a past medical history of chronic wounds on chronic suppressive therapy with Bactrim, hypertension, A-fib on Xarelto, HFrEF on Bumex, GERD, rheumatoid arthritis, osteoarthritis, untreated LEONARD, anxiety and depression, urinary incontinence. He was admitted from 06/10 to 06/22 to bilateral leg cellulitis / chronic wound completed a course of daptomycin and ertapenem x 14 days. Did not appear septic on admission as no leukocytosis, lactate negative, all other VSS. He was found to have an JEFFERY with creatinine of 1.78 along with a UTI. He has been on Bactrim for chronic suppressive therapy for approximately 4 to 5 days. He was provided gentle resuscitation IV fluid on admission, caution due to history of heart failure. Urine culture grew proteus mirabilis ESBL, blood cultures negative >48 hours. #JEFFERY/UTI Suspect JEFFERY secondary to UTI vs medication induced (recently start chronic Bactrim, on Bumex and Entresto) JEFFERY now resolved with Cr=1.22 Urine culture: proteus mirabilis ESBL Continue Ertapenem 1 g IV q24h through 08/03/24 Antibiotic script signed/given to case management US guided peripheral IV placed 07/25/24 Plan for home health / [facility] / daughter to assist in IV antibiotic at home Hold nephrotoxic agents Bactrim, Bumex, Entresto, plan to resume on discharge #Hypotension likely volume depletion on chronic diuretics contributed to JEFFERY above Hypotension resolved, BP stable Continue metoprolol #chronic venous stasis ulcers/ history of fraction total joint prosthesis of knee/ PAD Transitioned from chronic doxycycline therapy to chronic Bactrim therapy week prior to admission Continue Daptomycin for MRSA and VRE wound prophylaxis while Bactrim is on hold; plan to resume Bactrim on discharge Continue wound care Continue gabapentin #hypoxia Patient with history of LEONARD, untreated, has referral to sleep study clinic outpatient O2 dropped to 88% on RA while sleeping in ED Weaned off O2 and now remains stable on room air CXR negative #transaminitis AST, ALT elevated but stable Does endorse chronic Tylenol use, acetaminophen level <3 . ck negative, 71 does endorse daily alcohol use, approximately 3 glasses of wine each night with dinner hold statin while on dapto IV #HFpEF On Bumex 0.5mg and Entresto at home, holding with above hold Jardiance given UTI, hold until end of UTI treatment echo 04/01/2024 showed EF 35 to 40%, global hypokinesis, septal motion consistent with BBB Strict I's and O's and daily weights Clinically appears euvolemic at this time Chronic stable diagnoses: a fib - continue Xarelto and amiodarone anemia - stable, continue iron supplement depression - continue duloxetine insomnia- melatonin and mirtazapine hld- holding statin urinary incontinence - continue tamsulosin VTE ppx: continue Xarelto Dispo: anticipate discharge 07/27 AM on IV Ertapenem with home health and daughter to assist Coordinated discharge planning with case management - unfortunately [facility] was unable to get auth completed 07/26. Hopeful this can be completed 07/27. Admission and Anticipated Discharge Date Admission Date: July 22, 2024 Subjective Patient seen and examined this morning. Patient denies any complaints at time of encounter. He is ready to be discharged home. Physical Exam Constitutional: WD/WN, vitals as above Eyes: PERRL, conjunctivae normal, anicteric sclerae Respiratory: breathing unlabored Cardiovascular: well perfused Psychiatric: A+Ox3, euthymic affect Results & Data Results & Data Vital Signs (Past 12 Hours) Vital Signs Temp Pulse Pulse Resp BP Pulse Ox O2 Del Method 07/26/24 11:40 36.8 C 67 18 165/94 H 90 Room Air 07/26/24 08:45 Room Air 07/26/24 07:42 36.5 C 71 18 147/92 H 91 Room Air 07/26/24 07:00 74 PG Care Time/CCT Total # of Minutes Spent Total Time Spent with Patient: Total time spent is greater than 50% in coordination of care (as documented) at patient's floor/unit and/or counseling patient: Coding Level of Care Code 24426 SUB INP/OBS CARE 235MIN Diagnoses JEFFERY (acute kidney injury) N17.9 UTI (urinary tract infection) N39.0 Hypotension I95.9 Hypotension type: unspecified hypotension type Venous stasis ulcers of both lower extremities I83.019; I83.029; L97.919; L97.929 Hypoxia R09.02 Transaminitis R74.01 HFrEF (heart failure with reduced ejection fraction) I50.20 (3) Hypotension Hypotension type: unspecified hypotension type Qualified Code(s): I95.9 - Hypotension, unspecified
[2024-07-26] MEDS: DOCUSATE SODIUM 100 MG CAP PO PRN (21:41)
[2024-07-27 08:09] VITALS: RESP 16; O2SAT 99
--- NOTE | 2024-07-27 09:56 | Discharge Summary ---
Discharge Summary Date of Service July 27, 2024 Principal Dx & Hospital Course #1 = Principal Diagnosis (1) JEFFERY (acute kidney injury): (2) UTI (urinary tract infection): (3) Hypotension: (4) Venous stasis ulcers of both lower extremities: (5) Hypoxia: (6) Transaminitis: (7) HFrEF (heart failure with reduced ejection fraction): Plan Patient is an 78-year-old male with a past medical history of chronic wounds on chronic suppressive therapy with Bactrim, hypertension, A-fib on Xarelto, HFrEF on Bumex, GERD, rheumatoid arthritis, osteoarthritis, untreated LEONARD, anxiety and depression, urinary incontinence. He was admitted from 06/10 to 06/22 to bilateral leg cellulitis 07/10 chronic wound completed a course of daptomycin and ertapenem x 14 days. Did not appear septic on admission as no leukocytosis, lactate negative, all other VSS. He was found to have an JEFFERY with creatinine of 1.78 along with a UTI. He has been on Bactrim for chronic suppressive therapy for approximately 4 to 5 days. He was provided gentle resuscitation IV fluid on admission, caution due to history of heart failure. #JEFFERY/UTI Suspect JEFFERY secondary to UTI vs medication induced (recently start chronic Bactrim, on Bumex and Entresto) JEFFERY resolved. Urine culture: proteus mirabilis ESBL; BC negative Continue Ertapenem 1 g IV q24h through 08/03/24 US guided peripheral IV placed 07/25/24 Plan for home health / [facility] / daughter to assist in IV antibiotic at home Resumed Bactrim, Bumex, Entresto on discharge. 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 ck negative, 71 does endorse daily alcohol use, approximately 3 glasses of wine each night with dinner hold statin while on dapto IV, resumed on discharge. #HFpEF On Bumex 0.5mg and Entresto at home, holding with above hold Jardiance given UTI, hold until end of UTI treatment echo 04/01/2024 showed EF 35 to 40%, global hypokinesis, septal motion consistent with BBB Strict I's and O's and daily weights Clinically appears euvolemic at this time Chronic stable diagnoses: a fib - continue Xarelto and amiodarone anemia - stable, continue iron supplement depression - continue duloxetine insomnia- melatonin and mirtazapine hld- resume statin on discharge. urinary incontinence - continue tamsulosin Discharged home w/ daughter 07/27. Admission HPI Per Admitting Provider Patient is an 78-year-old male with a past medical history of chronic wounds on chronic suppressive therapy with Bactrim, hypertension, A-fib on Xarelto, HFrEF on Bumex, GERD, rheumatoid arthritis, osteoarthritis, untreated LEONARD, anxiety and depression, urinary incontinence. He was admitted from 06/10 to 06/22 to bilateral leg cellulitis 2/2 chronic wound completed a course of daptomycin and ertapenem x 14 days. He was found to have an JEFFERY with creatinine of 1.78 along with a UTI. He has been on Bactrim for chronic suppressive therapy for approximately 4 to 5 days. Patient seen at bedside. He stated that he has had burning with urination for several days and has felt overall poor. [facility] stated [facility] had abnormal renal function and elevated potassium on his labs and also found him to have a systolic blood pressure around 90. He was recommended to come to the ER but he wanted to go home. He stated he went home and slept all afternoon and then decided to come in because he felt so poor. He also endorses dyspnea on exertion, however chronic. He feels dehydrated and that his mouth is dry right now. He denies fever or chills. He stated his bilateral LE wounds are improving and he has dressing changes every few days. He stated he also takes Tylenol 2 times a day every day with his gabapentin. He denies chest pain, abdominal pain, nausea, vomiting, diarrhea. He stated his bilateral lower extremity edema is at his baseline. Patient denies nicotine use. He does endorse daily alcohol use drinking approximately 3 glasses of wine a day with dinner. Denies past history of DM or previous VTE. He does not use oxygen at baseline, however has been diagnosed with LEONARD but has not undergone a sleep study yet. He did take his morning medications today but is due for his evening medications. He stated he believes he took his Xarelto with dinner today. He wishes to be full code. Discharge Exam Constitutional WD/WN, vitals as above Eyes PERRL, conjunctivae normal, anicteric sclerae Respiratory breathing unlabored Cardiovascular well perfused Psychiatric A+Ox3, euthymic affect Discharge Plan Discharge Items Patient Disposition: Home - Home Health Services Reason For Visit: JEFFERY, UTI, TRANSAMINITIS, HYPOXIA Discharge Diagnosis: UTI JEFFERY, resolved Hypoxia, resolved Activity: Resume your previous activity Non-emergency contact: Primary Care Provider Call non-emergency contact if: you have any medication questions, your symptoms worsen, your pain is not controlled and your temperature is above 101 Follow-up/Referrals: Danny Soliman DO [Primary Care Provider] - (Follow-up in 1-2 weeks) Diet: Heart Healthy and Low Sodium (2gm) Addtl Attending Provider Instructions: Bill, You were admitted to the hospital with a UTI and JEFFERY (acute kidney injury). The JEFFERY has since resolved and you are back to your normal kidney function. Your urine culture grew Proteus mirabilis ESBL, which requires IV antibiotics to be continued on discharge from the hospital. Home health and [facility] have been set up to assist in the IV antibiotics at home. Your daughter has volunteered to help on the days the home health agency does not see you. Upon discharge from the hospital: * Continue IV Ertapenem (antibiotic) once daily through 08/03/24. This is for treatment of your UTI. * Continue Bactrim for chronic suppressive therapy of MRSA/VRE wounds. * Hold your Jardiance until you complete your IV antibiotic treatment course. * Continue your other home medications as prescribed. * Follow-up with your PCP in 1-2 weeks. It was a pleasure taking care of you while you were in the hospital! Pending Studies at Discharge: No Stand-Alone Forms: My [facility] Next Glass, Smoking Cessation Medications and DC Order Prescriptions: Continued sulfamethoxazole-trimethoprim [Bactrim DS] 800-160 mg tablet 1 tab PO DAILY Patient Comments: As of today pt hasn't started this med but it was ordered and to be delivered and when he receives it he will stop Doxycyline and start Bactrim Santyl 250 unit/gram ointment 1 applic topical DAILY Qty: 30 0RF duloxetine 60 mg capsule,delayed release(DR/EC) 60 mg PO QAM Qty: 90 3RF ferrous sulfate 325 mg (65 mg iron) tablet 325 mg PO DAILY Qty: 90 3RF Entresto 24-26 mg tablet 1 tab PO BID Qty: 180 3RF cholecalciferol (vitamin D3) 25 mcg (1,000 unit) capsule 25 mcg PO DAILY amiodarone 400 mg tablet 400 mg PO AMPM Rx Instructions: TAKE WITH MORNING AND EVENING MEAL gabapentin 600 mg tablet 600 mg PO TID 30 Days Qty: 90 3RF Xarelto 20 mg tablet 20 mg PO QPM Rx Instructions: must administer with evening meal start 3 days after last eliquis dose. aspirin [Adult Low Dose Aspirin] 81 mg tablet,delayed release (DR/EC) 81 mg PO QAM Hold Instructions: Resume on 02/23/23. until PCP/surgery followup cyanocobalamin (vitamin B-12) 500 mcg Tablet 1,000 mcg PO QAM Qty: 30 0RF nitroglycerin 0.4 mg Tablet, Sublingual 0.4 mg sublingual DIRECTED PRN (Reason: chest pin) vitamin E 268 mg (400 unit) Capsule 268 mg PO DAILY Qty: 0 pravastatin 40 mg tablet 40 mg PO HS Hold Instructions: Resume on 02/09/24. Hold while on daptomycin Rx Instructions: TAKE 1 TABLET BY MOUTH ONCE DAILY mirtazapine 30 mg tablet 30 mg PO HS acetaminophen 325 mg tablet 975 mg PO Q8H PRN (Reason: mild pain,fever, or headache) latanoprost 0.005 % Drops 1 drp OPB QPM Rx Instructions: into both eyes B Complex Plus Vitamin C 58-32-39-5-300 mg Capsule 1 cap PO DAILY metoprolol succinate 25 mg Tablet Extended Release 24 Hr 25 mg PO QAM Qty: 30 0RF bumetanide 0.5 mg tablet 0.5 mg PO DAILY Rx Instructions: one tablet daily, with 1 additional tablet daily prn for weight gain or shortness of breath tamsulosin 0.4 mg capsule 0.4 mg PO HS multivitamin Tablet 1 tab PO QAM melatonin 3 mg Tablet 6 mg PO HS glucosamine sulfate [Glucosamine] 500 mg Tablet 500 mg PO DAILY Rx Instructions: administer with a meal diclofenac sodium 1 % Gel 0 g TOPICAL QID Rx Instructions: APPLY 1 DOSE 4 TIMES A DAY TO BILATERAL SHOULDERS FOR PAIN hydrocodone-acetaminophen 5-325 mg tablet 1 tab PO Q6 PRN (Reason: Moderate Pain (Scale Score 5-6)) guaifenesin 100 mg/5 mL Liquid 200 mg PO Q4H PRN (Reason: Cough) esomeprazole magnesium [Nexium] 40 mg Capsule,Delayed Release(Dr/Ec) 40 mg PO HS omega-3 fatty acids 1,250 mg Capsule 1,250 mg PO QAM Probiotic 1 cap PO QAM diphenhydramine HCl [Benadryl Allergy] 25 mg Tablet 25 mg PO Q6 PRN (Reason: Itching) sennosides 8.6 mg Tablet 8.6 mg PO BID Held Jardiance 10 mg tablet 10 mg PO DAILY Qty: 90 3RF Hold Instructions: Resume on 08/04/24. Until finished with treatment for UTI Discharge Orders: Discharge Order (Routine); Ordered 07/27/24 Ordered By: Swetha Her Admission Data Admit Date/Time: 07/22/24 22:29 Attending Provider: Sadiq Membreno Admit Provider: Himanshu Weinstein Primary Care Provider: Danny Soliman Other Providers: Himanshu Weinstein; [place],Fax; [place]; [facility] Other Interventions: Discharge Summary Assessment (RN) Last Done: 07/27/24 10:54 Hospital Stay Data Consultations 07/22/24 21:41 ED Decision to Admit Stat Pending Results Patient Have Any Pending Studies at Discharge: No Discharge Instructions Given to Patient (Per Discharging Provider) Bill, You were admitted to the hospital with a UTI and JEFFERY (acute kidney injury). The JEFFERY has since resolved and you are back to your normal kidney function. Your urine culture grew Proteus mirabilis ESBL, which requires IV antibiotics to be continued on discharge from the hospital. Home health and [facility] have been set up to assist in the IV antibiotics at home. Your daughter has volunteered to help on the days the home health agency does not see you. Upon discharge from the hospital: * Continue IV Ertapenem (antibiotic) once daily through 08/03/24. This is for treatment of your UTI. * Continue Bactrim for chronic suppressive therapy of MRSA/VRE wounds. * Hold your Jardiance until you complete your IV antibiotic treatment course. * Continue your other home medications as prescribed. * Follow-up with your PCP in 1-2 weeks. It was a pleasure taking care of you while you were in the hospital! Total Time Total Time Spent Total Time Spent (In Minutes): 50 Total Time Includes: Examination of the Patient, Discharge Planning and Medication Reconciliation Coding Level of Care Code 36047 INP/OBS DISCH >30 MIN Diagnoses JEFFERY (acute kidney injury) N17.9 UTI (urinary tract infection) N39.0 Hypotension I95.9 Hypotension type: unspecified hypotension type Venous stasis ulcers of both lower extremities I83.019; I83.029; L97.919; L97.929 Hypoxia R09.02 Transaminitis R74.01 HFrEF (heart failure with reduced ejection fraction) I50.20
[2024-07-27 12:01] VITALS: BP 144/82; PULSE 71; TEMP 98.2
== END 2024-07-27 12:28 | disposition home health service (06) | DRG 683 ==
LOC: ED 18:19 → SUATTDRO 22:29 → 2W 22:29

== ENCOUNTER 2024-08-12 10:27 | Inpatient (IN) ==
--- NOTE | 2024-08-12 11:32 | Emergency Department Note ---
Impression & Plan Syncope, Acute UTI (urinary tract infection) ED Provider Note ED Provider Note NAME: RAFY CHICAS AGE:78 SEX: Male : 1945 ARRIVES VIA: INFORMANT: Patient ED PROVIDER(s): Lisa Kohli DO CHIEF COMPLAINT: [facility] HPI: This is an 78-year-old male presents to the Emergency Department after being referred here from the MD where he presented for a routine PCP visit this morning. Patient was seen in follow-up due to a recent urinary tract infection requiring IV antibiotics. He had began noticing dysuria again over the last several days. Son at bedside helps provide additional history. While in the office patient had been leaning forward to allow the provider to listen to him and had an episode of coughing and briefly lost consciousness. He did not fall out of the chair. Son states he has had similar episodes in the past. Given the recent infection and concern for recurrent UTI as well as a syncopal bout in the office, the provider was concerned and referred him here for further evaluation. Son also notes he will have an increased cough on the days that he does not take his diuretic as he often times will not take it when he has to go to other doctors appointments. No other recent change in medications or diet. No worsening leg swelling. Patient denies any shortness of breath, chest pain, abdominal pain, nausea or vomiting. He states the cough is only occasionally productive. He denies any other URI symptoms including fevers or chills. PAST MEDICAL HISTORY:See Below PAST SURGICAL HISTORY:See Below FAMILY HISTORY:See Below SOCIAL HISTORY:See Below HOME MEDICATIONS:See Below ALLERGIES:See Below VITALS:See Below PHYSICAL EXAMINATION: GENERAL: alert, well appearing, well nourished, no distress, non-toxic EYE EXAM: normal conjunctiva, PERRL and EOM's grossly intact OROPHARYNX: no exudate, no erythema, lips, buccal mucosa, and tongue normal and mucous membranes are moist NECK: supple, no nuchal rigidity, no adenopathy, non-tender LUNGS: Clear to auscultation. Normal chest wall mechanics, no w/r/r HEART: no murmurs, S1 normal and S2 normal ABDOMEN: abdomen soft, non-tender, normo-active bowel sounds, no masses, no rebound or guarding. BACK: Back is symmetrical on inspection and there is no deformity, no midline tenderness, no CVA tenderness. SKIN: no rashes, petechiae, orbruising UPPER EXTREMITIES: upper extremities are grossly normal. FROM, nml pulses b/l. LOWER EXTREMITIES: 3+ bilateral pitting edema. FROM, nml pulses b/l. Several bandages noted to bilateral feet/ankles that patient and family state are being followed with wound care. NEURO EXAM: Normal sensorium, cranial nerves II-XII grossly intact, normal speech, no facial droop,nogross weakness of arms, no gross weakness of legs. Gross sensation intact. No ataxia. Vital Signs: reviewed and remarkable Differential Diagnosis: vasovagal event, infection, hypoglycemia, electrolyte abnormalities, toxidrome, substance abuse, dysrhythmia, ACS, as well as others were entertained. MEDICAL DECISION MAKING: THis is an 78 yo male brought in by family due to concern for recurrent UTI and PCP concern for an episode of post tussive syncope in the office today. He was afebrile and VS stable. Family helps provide history. Labs drawn and sent, IV established, EKG and CXR performed and interpreted at bedside, and patient placed on telemetry. Labs reassuring. Urine collected and sent and suggestive of infection. Given hx of resistent organisms, antibiotic choice discussed with pharmacist. Patient to require IV antibiotic at this time. Case discussed with hospitalist team for additional evaluation and mgmt. Elevation of trop and bnp noted however exam not suggestive of acute CHF. Consultation(s): 1318: Discussed with Reji, ED pharmacist. Will start the patient on IV meropenem given review of prior urine cultures and resistant organisms. 1350: Discussed with Dr. Amor, [facility] hospitalist team, for additional evaluation and management. ER Treatment Provided: See below Diagnostics Interpreted By Me: -ECG: Sinus bradycardia 59, first-degree AV block, left axis, interventricular conduction delay, nonspecific ST/T wave changes -Cardiac Monitoring: An order was placed for continuous cardiac monitoring. The monitor shows a rate of 60 with normal sinus rhythm. -Laboratory studies: As stated above and show below. -Imaging studies: X-ray Chest: A single view study of the chest was reviewed and was negative for cardiomegaly, focal infiltrate, effusion, pulmonary edema, or wide mediastinum. Triage Nursing Note Reviewed Prior/Outside Records Reviewed -prior urine cultures reviewed Past Med/Surg History Problem List (Updated 08/13/24 @ 09:29 by Shaheen Amor MD) Paroxysmal atrial fibrillation Acute UTI (urinary tract infection) (Acute) Syncope (Acute) HFrEF (heart failure with reduced ejection fraction) Transaminitis Venous stasis ulcers of both lower extremities UTI (urinary tract infection) Non-pressure chronic ulcer of other part of left foot limited to breakdown of skin Non-pressure chronic ulcer of other part of right foot limited to breakdown of skin Peripheral arterial disease (Chronic) Pressure ulcer of right foot, stage 3 Chronic diastolic heart failure History of infection of total joint prosthesis of knee Atrial fibrillation History of MRSA infection Recurrent cellulitis of lower extremity (Acute) Polyneuropathy Depression Atrial flutter (Acute) Atrial fibrillation with RVR Open wound of knee (Acute) Venous ulcers of both lower extremities (Acute) Pain associated with wound Palliative care by specialist Advanced care planning/counseling discussion Back pain VRE bacteremia Ambulatory dysfunction Infection of prosthetic right knee joint Weakness (Acute) Fall (Acute) Anemia (Acute) Hypomagnesemia (Acute) Bilateral cellulitis of lower leg (Acute) Peripheral neuropathy Chronic venous stasis Cellulitis of both feet (Acute) Rheumatoid arthritis Open wound of foot Open wound of right hand (Acute) Chronic wound Lymphangitis of lower extremity Hypomagnesemia (Acute) Open wound of left upper arm (Acute) Open wound of left arm with tendon injury Gram-negative bacteremia Cellulitis of right lower extremity (Acute) Generalized weakness (Acute) Elevated procalcitonin (Acute) Acute kidney injury superimposed on chronic kidney disease (Acute) Skin tear of right upper extremity (Acute) Open wound of left foot (Acute) Open wound of right foot (Acute) Skin tear of right hand without complication (Acute) Venous ulcer of left leg (Acute) Traumatic open wound of right lower leg (Acute) Elevated LFTs MRSA bacteremia Dislocation, hip closed (Acute) Dislocation, hip, posterior Rotator cuff arthropathy of both shoulders Abrasion of right knee (Acute) Pain of right hip Prophylactic antibiotic Left shoulder pain Acquired foot deformity (Chronic) Traumatic wound (Acute) Pressure ulcer of left foot, stage 3 (Acute) Abnormal ankle brachial index (Acute) Right knee pain Non-ST elevation WA (NSTEMI) (Acute) Leukocytosis (Acute) Myoclonus Cervical radiculopathy Neuropathy Weakness On amiodarone therapy Weakness of right hip Constipation Sepsis following procedure Rhabdomyolysis MRSA infection History of CHF (congestive heart failure) Visual disturbance Hyponatremia Hypotension Acute metabolic encephalopathy Abdominal wall abscess (Acute) HFrEF (heart failure with reduced ejection fraction) EF 40% Mar 2022, improved 55-60% August 2022 Lumbar stenosis Osteoarthritis of right knee Anxiety and depression Hypertension Coronary artery disease Atherogenic dyslipidemia Lumbar radiculopathy Lower extremity weakness Degenerative spondylolisthesis Chronic low back pain Scoliosis of lumbar region due to degenerative disease of spine in adult Dislocation of hip, right, closed (Acute) Septic joint of right knee joint COVID-19 (Acute) Incisional hernia Incarcerated intra-abdominal hernia (Acute) Adjustment disorder with mixed anxiety and depressed mood Medical History Hyperkalemia Lethargy JEFFERY (acute kidney injury) Ischemic ulcer of left foot Ischemic ulcer of right foot Bilateral lower leg cellulitis PVD (peripheral vascular disease) Atrial flutter with rapid ventricular response Open wound of left lower extremity Sepsis secondary to UTI Fever Sepsis due to skin infection Sepsis Fall Infected hardware in right leg Chronic infection of right knee UTI (urinary tract infection) Severe sepsis Venous ulcer of right leg Venous stasis ulcers of both lower extremities Idiopathic polyneuropathy History of immunosuppressive therapy Heart failure with preserved ejection fraction GERD (gastroesophageal reflux disease) Sepsis Septicemia due to Streptococcus pneumoniae Respiratory failure with hypoxia Hypomagnesemia Pneumonia Benign essential hypertension Lumbar stenosis Hx of staphylococcal infection 03/2022, w/"bacterial infection" at the same, in the rt. knee, occurrred during atrial fibrillation episode. "when he woke up, he couldn't walk." Atrial fibrillation episode occurred in 03/2022, taken to [facility], admitted to ICU for 1-2 weeks (was not intubated, but wasn't "awake either"), then to cardiac unit, then to rehab at [facility]; f/u dr. guerra in [place]>will be starting to see a utility clerk at [facility] 2nd week of 08/2022 Myocardial Infarction "a silent one2019" Sleep apnea no device Surgical History Status post revision of total replacement of right knee Hx of Achilles tendon repair rt. Hx of knee surgery rt. patellar tendon repair Hx of rotator cuff surgery bilateral Hx of total knee replacement lt. Hx of total hip arthroplasty rt. History of colostomy reversal History of bowel resection for diverticulitis; w/colostomy placement for 3-4 months Hx of hernia repair near former colostomy site History of esophagogastroduodenoscopy (EGD) Hx of colonoscopy Last Colonoscopy 08/14/22, repeat 3 years in 2025 Hx of bilateral cataract extraction History of heart artery stent ~3 years ago, x2 stents, done in [place]; f/u dr guerra, [place]>will be seeing new cardio at [place] of August 2022. History of cardiac cath ~3 years ago, SOB and "felt like throat was constricting", had "silent heart attack", x2 stents, done in [place] Family History Grandmother (Maternal) Diabetes Daughter Diabetes Father Suicide Hypertension Denies family history of Ovarian cancer Prostate cancer Myocardial infarction Breast cancer Lung cancer Colorectal cancer Stroke Social History Smoking Status: Never smoker Second Hand Exposure: No; Do You Dip or Chew Tobacco: No; Hx Alcohol Use: Yes Alcohol type: wine Alcohol Intake Frequency: 4 or More x per/Week Hx Substance Use: No Preferred Language: Sami Communication Ability: Effective Visual Impairment: Limited Hearing Ability: Normal Chemist Steroids Required: No Beliefs That Will Affect Care: None marital status: Single Current Living Situation: Personal Care Facility Current Living Situation Comment: [facility] current occupational status: retired How many Children do You have: 2 Feels Safe at Home: Yes Safety Concerns: Feels Safe At This Time Childhood Exposure to Second-Hand Smoke: Yes Diet: regular caffeine: Yes Dental Care, Regularly: Yes Physical Activity Frequency: Does not Exercise Seatbelt Use: always Sunscreen Use: Yes Assistive Devices: Wheelchair Allergies Allergies Allergy/AdvReac Type Severity Reaction Status Date / Time cat dander Allergy Severe CAT Verified 08/12/24 13:55 HAIR---Swelling of Lip/Tongue/Throat Home Meds Home Medications Medication Instructions Recorded Confirmed aspirin 81 mg tablet,delayed 81 mg PO QAM 08/07/22 08/12/24 release (Adult Low Dose Aspirin) rivaroxaban 20 mg tablet (Xarelto) 20 mg PO QPM 11/19/23 08/12/24 sennosides 8.6 mg tablet 8.6 mg PO BID 12/15/23 08/12/24 mirtazapine 30 mg tablet 30 mg PO HS 01/21/24 08/12/24 nitroglycerin 0.4 mg sublingual 0.4 mg sublingual DIRECTED PRN 01/21/24 08/12/24 tablet chest pin pravastatin 40 mg tablet 40 mg PO HS 01/21/24 08/12/24 vitamin E 268 mg (400 unit) capsule 268 mg PO DAILY ##0 01/21/24 08/12/24 acetaminophen 325 mg tablet 975 mg PO Q8H PRN mild pain,fever, 01/26/24 08/12/24 or headache bumetanide 0.5 mg tablet 0.5 mg PO DAILY 05/27/24 08/12/24 sulfamethoxazole 800 1 tab PO DAILY 07/14/24 08/12/24 mg-trimethoprim 160 mg tablet (Bactrim DS) diclofenac sodium 1 % topical gel 2 g topical QID PRN Shoulder Pain 07/22/24 08/12/24 esomeprazole magnesium 40 mg 40 mg PO HS 07/22/24 08/12/24 capsule,delayed release (Nexium) glucosamine sulfate 500 mg tablet 500 mg PO QAM 07/22/24 08/12/24 (Glucosamine) guaifenesin 100 mg/5 mL oral liquid 200 mg PO Q4H PRN Cough 07/22/24 08/12/24 hydrocodone 5 mg-acetaminophen 325 1 tab PO Q6 PRN Moderate Pain 07/22/24 08/12/24 mg tablet (Scale Score 5-6) melatonin 3 mg tablet 6 mg PO HS 07/22/24 08/12/24 multivitamin 1 tab PO QAM 07/22/24 08/12/24 omega-3 fatty acids 1,250 mg 1,250 mg PO QAM 07/22/24 08/12/24 capsule tamsulosin 0.4 mg capsule 0.4 mg PO HS 07/22/24 08/12/24 Lactobacillus acidophilus 1 tab PO DAILY 08/12/24 08/12/24 amiodarone 200 mg tablet 400 mg PO BIDWMEAL 08/12/24 08/12/24 cholecalciferol (vitamin D3) 10 20 mcg PO DAILY 08/12/24 08/12/24 mcg (400 unit) tablet (Vitamin D3) empagliflozin 25 mg tablet 12.5 mg PO DAILY 08/12/24 08/12/24 folic acid 1 mg tablet 1 mg PO DAILY 08/12/24 08/12/24 metoprolol succinate 50 mg 12.5 mg PO QAM 08/12/24 08/12/24 tablet,extended release 24 hr netarsudil 0.02 %-latanoprost 1 drp OPB HS 08/12/24 08/12/24 0.005 % eye drops (Rocklatan) omeprazole 20 mg capsule,delayed 20 mg PO DAILY 08/12/24 08/12/24 release thiamine HCl (vitamin B1) 100 mg 100 mg PO DAILY 08/12/24 08/12/24 tablet vitamins B1 2.5 mg-B2 2.5 1 tab PO DAILY 08/12/24 08/12/24 mg-niacin 5 mg-B12 100 mcg-protease tablet (B-Complex With B-12) Previous Rx's Medication Instructions Recorded cyanocobalamin (vitamin B-12) 500 1,000 mcg (2 x 500 mcg) PO QAM #30 01/18/23 mcg tablet tabs duloxetine 60 mg capsule,delayed 60 mg PO QAM #90 caps 10/29/23 release ferrous sulfate 325 mg (65 mg 325 mg PO DAILY #90 tabs 05/11/24 iron) tablet sacubitril 24 mg-valsartan 26 mg 1 tab PO BID #180 tabs 05/11/24 tablet (Entresto) gabapentin 600 mg tablet 600 mg PO TID neuropathy from 05/12/24 severe PVD wounds 1 month #90 tabs collagenase clostridium histo. 250 1 applic topical DAILY #30 grams 07/22/24 unit/gram topical ointment (Santyl) Results & Data (ED) Vital Signs Vital Signs - 24 hr 08/12/24 10:40 08/12/24 10:48 08/12/24 10:54 Temperature 36.8 C Temperature Source Oral Pulse Rate 62 66 Pulse Rate from SpO2 Sensor Respiratory Rate 17 14 Respiratory Effort / Characteristics Non-Labored Spontaneous Respiratory Depth Normal Blood Pressure 128/75 128/75 Blood Pressure Mean 86 92 Pulse Oximetry 98 Oxygen Delivery Method Room Air Sepsis Recent Fever Within 48 Hours No Sepsis New/Unexplained Change in Mental Status Yes Sepsis Action Taken by Nursing No Action Required 08/12/24 11:00 08/12/24 11:24 08/12/24 11:36 Temperature Temperature Source Pulse Rate 55 L 59 L Pulse Rate from SpO2 Sensor 55 L 58 L Respiratory Rate 17 16 Respiratory Effort / Characteristics Respiratory Depth Blood Pressure 126/76 Blood Pressure Mean 106 Pulse Oximetry 96 Oxygen Delivery Method Sepsis Recent Fever Within 48 Hours Sepsis New/Unexplained Change in Mental Status Sepsis Action Taken by Nursing 08/12/24 11:51 08/12/24 11:52 08/12/24 12:00 Temperature Temperature Source Pulse Rate 61 57 L Pulse Rate from SpO2 Sensor 60 Respiratory Rate 20 Respiratory Effort / Characteristics Respiratory Depth Blood Pressure 166/90 H Blood Pressure Mean 141 Pulse Oximetry 96 Oxygen Delivery Method Sepsis Recent Fever Within 48 Hours Sepsis New/Unexplained Change in Mental Status Sepsis Action Taken by Nursing 08/12/24 12:00 08/12/24 12:03 08/12/24 12:30 Temperature Temperature Source Pulse Rate 59 L 60 Pulse Rate from SpO2 Sensor 58 L Respiratory Rate 16 16 Respiratory Effort / Characteristics Respiratory Depth Blood Pressure 166/90 H Blood Pressure Mean 141 Pulse Oximetry 97 Oxygen Delivery Method Sepsis Recent Fever Within 48 Hours Sepsis New/Unexplained Change in Mental Status Sepsis Action Taken by Nursing 08/12/24 12:33 08/12/24 13:00 08/12/24 13:24 Temperature Temperature Source Pulse Rate 60 Pulse Rate from SpO2 Sensor Respiratory Rate 20 18 Respiratory Effort / Characteristics Respiratory Depth Blood Pressure 124/82 Blood Pressure Mean 87 Pulse Oximetry Oxygen Delivery Method Sepsis Recent Fever Within 48 Hours Sepsis New/Unexplained Change in Mental Status Sepsis Action Taken by Nursing 08/12/24 13:39 08/12/24 14:12 08/12/24 14:30 Temperature Temperature Source Pulse Rate 60 75 64 Pulse Rate from SpO2 Sensor Respiratory Rate 19 18 16 Respiratory Effort / Characteristics Respiratory Depth Blood Pressure Blood Pressure Mean Pulse Oximetry Oxygen Delivery Method Sepsis Recent Fever Within 48 Hours Sepsis New/Unexplained Change in Mental Status Sepsis Action Taken by Nursing 08/12/24 15:09 08/12/24 15:53 Temperature Temperature Source Pulse Rate 59 L 85 Pulse Rate from SpO2 Sensor Respiratory Rate 20 Respiratory Effort / Characteristics Respiratory Depth Blood Pressure Blood Pressure Mean Pulse Oximetry Oxygen Delivery Method Sepsis Recent Fever Within 48 Hours Sepsis New/Unexplained Change in Mental Status Sepsis Action Taken by Nursing Laboratory Data 08/13/24 10:23 08/14/24 06:41 Lab Results 08/12/24 08/12/24 08/12/24 Range/Units 10:50 12:25 14:10 WBC 7.92 (4.8-10.8) K/ul RBC 3.93 L (4.70-6.10) M/uL Hgb 12.0 L (14.0-18.0) g/dl Hct 38.0 L (42.0-52.0) % MCV 96.7 (80.0-100.0) fL MCH 30.5 (25.0-34.0) pg MCHC 31.6 L (32.0-36.0) g/dL RDW Std Deviation 64.2 H (36.4-46.3) fL RDW Coeff of Sammie 18.2 H (11.5-14.5) % Plt Count 213 (130-400) K/uL MPV 10.1 (9.4-12.4) fL Immature Gran % (Auto) 0.4 % Neut % (Auto) 74.6 % Lymph % (Auto) 10.1 % Kay % (Auto) 12.8 % Eos % (Auto) 1.8 % Baso % (Auto) 0.3 % Neut # (Auto) 5.92 (1.40-6.50) K/uL Lymph # (Auto) 0.80 L (1.20-3.40) K/uL Kay # (Auto) 1.01 H (0.11-0.59) K/uL Eos # (Auto) 0.14 (0.00-0.50) K/uL Baso # (Auto) 0.02 (0.00-0.20) K/uL Immature Gran # (Auto) 0.03 (0.01-0.20) K/uL ESR (0-20) mm/hr PT 13.0 H (9.0-12.0) Seconds INR 1.2 H (0.9-1.1) Sodium 139 (136-145) mmol/L Potassium 4.8 (3.5-5.1) mmol/L Chloride 104 (98-107) mmol/L Carbon Dioxide 30 (21-32) mmol/L Anion Gap 5 (3-11) BUN 47 H (6-23) mg/dl Creatinine 1.35 (0.6-1.4) mg/dl Est Cr Clr Drug Dosing Not Reportable eGFR 53.08 BUN/Creatinine Ratio 34.8 H (10-20) Glucose 88 (70-99(Fasting)) mg/dl Calcium 8.9 (8.6-10.3) mg/dl Magnesium 2.3 (1.7-2.4) mg/dl Total Bilirubin 0.5 (0.2-1.0) mg/dl AST 60 H (13-39) U/L ALT 74 H (7-52) U/L Alkaline Phosphatase 82 (34-104) U/L Troponin I High Sens 22.6 H (0-20) pg/ml C-Reactive Protein 2.42 H (0-0.5) mg/dl B-Natriuretic Peptide 269 H (0-100) pg/ml Total Protein 6.9 (6.0-8.3) gm/dl Albumin 3.8 (3.4-5.0) gm/dl Globulin 3.1 (2.5-4.0) gm/dl Albumin/Globulin Ratio 1.2 (0.9-2) Lipase 23 (11-82) U/L Prostate Specific Ag 4.054 H (0-4) ng/ml TSH 2.220 (0.300-4.500) uIu/ml Urine Color Yellow Urine Appearance Turbid A (Clear) Urine pH >= 9.0 H (4.5-7.5) Ur Specific Aiken 1.030 (1.000-1.030) Urine Protein 1+ H (Negative) Urine Glucose (UA) 2+ H (Negative) Urine Ketones Negative (Negative) Urine Blood Trace H (Negative) Urine Nitrite Positive A (Negative) Urine Bilirubin Negative (Negative) Urine Urobilinogen Negative (Negative) Ur Leukocyte Esterase 3+ H (Negative) Urine WBC (Auto) >50 H (0-5) /hpf Urine RBC (Auto) 0-2 (0-2) /hpf U Hyaline Cast (Auto) 3-5 H (0-2) /lpf U Epithel Cells (Auto) 0-2 (0-2) /hpf Urine Bacteria (Auto) 4+ H (None Seen) Adenovirus (PCR) Not Detected (NotDetected) B. pertussis DNA (PCR) Not Detected (NotDetected) B.parapertussis DNA PCR Not Detected (NotDetected) C. pneumoniae DNA (PCR) Not Detected (NotDetected) Coronavirus OC43 (PCR) Not Detected (NotDetected) Coronavirus HKU1 (PCR) Not Detected (NotDetected) Coronavirus 229E (PCR) Not Detected (NotDetected) SARS-CoV-2 (PCR) Not Detected (NotDetected) Coronavirus NL63 (PCR) Not Detected (NotDetected) Human Metapneumovir PCR Not Detected (NotDetected) Influenza Type A (PCR) Not Detected (NotDetected) Influenza Type B (PCR) Not Detected (NotDetected) M. pneumoniae (PCR) Not Detected (NotDetected) Parainfluenza 1 (PCR) Not Detected (NotDetected) Parainfluenza 2 (PCR) Not Detected (NotDetected) Parainfluenza 3 (PCR) Not Detected (NotDetected) Parainfluenza 4 (PCR) Not Detected (NotDetected) RSV (PCR) Not Detected (NotDetected) Entero/Rhino (PCR) Not Detected (NotDetected) 08/12/24 Range/Units 14:36 WBC (4.8-10.8) K/ul RBC (4.70-6.10) M/uL Hgb (14.0-18.0) g/dl Hct (42.0-52.0) % MCV (80.0-100.0) fL MCH (25.0-34.0) pg MCHC (32.0-36.0) g/dL RDW Std Deviation (36.4-46.3) fL RDW Coeff of Sammie (11.5-14.5) % Plt Count (130-400) K/uL MPV (9.4-12.4) fL Immature Gran % (Auto) % Neut % (Auto) % Lymph % (Auto) % Kay % (Auto) % Eos % (Auto) % Baso % (Auto) % Neut # (Auto) (1.40-6.50) K/uL Lymph # (Auto) (1.20-3.40) K/uL Kay # (Auto) (0.11-0.59) K/uL Eos # (Auto) (0.00-0.50) K/uL Baso # (Auto) (0.00-0.20) K/uL Immature Gran # (Auto) (0.01-0.20) K/uL ESR 29 H (0-20) mm/hr PT (9.0-12.0) Seconds INR (0.9-1.1) Sodium (136-145) mmol/L Potassium (3.5-5.1) mmol/L Chloride (98-107) mmol/L Carbon Dioxide (21-32) mmol/L Anion Gap (3-11) BUN (6-23) mg/dl Creatinine (0.6-1.4) mg/dl Est Cr Clr Drug Dosing eGFR BUN/Creatinine Ratio (10-20) Glucose (70-99(Fasting)) mg/dl Calcium (8.6-10.3) mg/dl Magnesium (1.7-2.4) mg/dl Total Bilirubin (0.2-1.0) mg/dl AST (13-39) U/L ALT (7-52) U/L Alkaline Phosphatase (34-104) U/L Troponin I High Sens (0-20) pg/ml C-Reactive Protein (0-0.5) mg/dl B-Natriuretic Peptide (0-100) pg/ml Total Protein (6.0-8.3) gm/dl Albumin (3.4-5.0) gm/dl Globulin (2.5-4.0) gm/dl Albumin/Globulin Ratio (0.9-2) Lipase (11-82) U/L Prostate Specific Ag (0-4) ng/ml TSH (0.300-4.500) uIu/ml Urine Color Urine Appearance (Clear) Urine pH (4.5-7.5) Ur Specific Aiken (1.000-1.030) Urine Protein (Negative) Urine Glucose (UA) (Negative) Urine Ketones (Negative) Urine Blood (Negative) Urine Nitrite (Negative) Urine Bilirubin (Negative) Urine Urobilinogen (Negative) Ur Leukocyte Esterase (Negative) Urine WBC (Auto) (0-5) /hpf Urine RBC (Auto) (0-2) /hpf U Hyaline Cast (Auto) (0-2) /lpf U Epithel Cells (Auto) (0-2) /hpf Urine Bacteria (Auto) (None Seen) Adenovirus (PCR) (NotDetected) B. pertussis DNA (PCR) (NotDetected) B.parapertussis DNA PCR (NotDetected) C. pneumoniae DNA (PCR) (NotDetected) Coronavirus OC43 (PCR) (NotDetected) Coronavirus HKU1 (PCR) (NotDetected) Coronavirus 229E (PCR) (NotDetected) SARS-CoV-2 (PCR) (NotDetected) Coronavirus NL63 (PCR) (NotDetected) Human Metapneumovir PCR (NotDetected) Influenza Type A (PCR) (NotDetected) Influenza Type B (PCR) (NotDetected) M. pneumoniae (PCR) (NotDetected) Parainfluenza 1 (PCR) (NotDetected) Parainfluenza 2 (PCR) (NotDetected) Parainfluenza 3 (PCR) (NotDetected) Parainfluenza 4 (PCR) (NotDetected) RSV (PCR) (NotDetected) Entero/Rhino (PCR) (NotDetected) Administered Medications Hydrocodone Bitart/Acetaminophen (Hydrocodone/Acetamophen 5/325mg Tab) 1 tab PO Q6 PRN PRN Reason: Moderate Pain (Scale Score 5-6) Stop: 08/26/24 16:33 Last Admin: 08/12/24 22:16 Dose: 1 tab Documented By: KESHIA Amiodarone HCl (Amiodarone 200 Mg Tab) 200 mg PO [facility] Stop: 09/12/24 08:59 Last Admin: 08/14/24 08:49 Dose: 200 mg Documented By: Admin: 08/13/24 09:49 Dose: 200 mg Documented By: RENATA Aspirin (Aspirin 81 Mg Ectab) 81 mg PO [facility] Stop: 09/12/24 08:59 Last Admin: 08/14/24 08:50 Dose: 81 mg Documented By: Admin: 08/13/24 09:48 Dose: 81 mg Documented By: RENATA Bumetanide (Bumetanide 1 Mg Tab) 0.5 mg PO DAILY [facility] Stop: 09/13/24 08:59 Last Admin: 08/14/24 08:49 Dose: 0.5 mg Documented By: [facility] Diclofenac Sodium (Diclofenac Sod 1% Gel 100 Gm Tube) 2 gm EXT QID PRN; Protocol PRN Reason: Shoulder Pain Stop: 09/11/24 16:33 Last Admin: 08/13/24 09:48 Dose: 2 gm Documented By: Admin: 08/12/24 22:17 Dose: 2 gm Documented By: KESHIA Duloxetine HCl (Duloxetine Hcl 60 Mg Cap) 60 mg PO QAM [facility] Stop: 09/12/24 08:59 Last Admin: 08/14/24 08:49 Dose: 60 mg Documented By: [facility] Admin: 08/13/24 09:48 Dose: 60 mg Documented By: RENATA Gabapentin (Gabapentin 600 Mg Tab) 600 mg PO TID [facility] Stop: 09/11/24 20:59 Last Admin: 08/14/24 15:01 Dose: 600 mg Documented By: [facility] Admin: 08/14/24 08:48 Dose: 600 mg Documented By: [facility] Admin: 08/13/24 20:29 Dose: 600 mg Documented By: Admin: 08/13/24 12:49 Dose: 600 mg Documented By: Admin: 08/13/24 09:47 Dose: 600 mg Documented By: Admin: 08/12/24 22:15 Dose: 600 mg Documented By: KESHIA Guaifenesin (Guaifenesin Sugar Free 100 Mg/5 Ml Udc) 200 mg PO Q4H PRN PRN Reason: Cough Stop: 09/11/24 16:33 Last Admin: 08/12/24 22:17 Dose: 200 mg Documented By: KESHIA Ertapenem (Invanz 1000mg) 1,000 mg in 10 mls @ 2 mls/min IV Q24H [facility] Stop: 08/18/24 11:59 Last Admin: 08/14/24 12:49 Dose: 2 mls/min Documented By: [facility] Admin: 08/13/24 11:52 Dose: 2 mls/min Documented By: LIZ Lactobacillus Acidophilus (Advanced Probiotic 625 Mg Capsule) 1,250 mg PO DAILY [facility] Stop: 09/12/24 08:59 Last Admin: 08/14/24 08:48 Dose: 1,250 mg Documented By: [facility] Admin: 08/13/24 09:47 Dose: 1,250 mg Documented By: RENATA Melatonin (Melatonin 3 Mg Tab) [address] [facility] Stop: 09/11/24 20:59 Last Admin: 08/13/24 20:29 Dose: 6 mg Documented By: Admin: 08/12/24 22:16 Dose: 6 mg Documented By: KESHIA Metoprolol Succinate (Metoprolol Succ 25mg Ext Rel Tab) [facility] Stop: 09/12/24 08:59 Last Admin: 08/14/24 08:49 Dose: 12.5 mg Documented By: [facility] Admin: 08/13/24 09:50 Dose: 12.5 mg Documented By: RENATA Mirtazapine (Mirtazapine Tab 15 Mg Tab) [address] [facility] Stop: 09/11/24 20:59 Last Admin: 08/13/24 20:29 Dose: 30 mg Documented By: Admin: 08/12/24 22:15 Dose: 30 mg Documented By: KESHIA Netarsudil/Latanoprost (Netarsudil Mesylat/Latanoprost 37 Drops/2.5 Ml Btl) [address] [facility] Stop: 09/11/24 23:29 Last Admin: 08/13/24 20:29 Dose: 1 drops Documented By: Admin: 08/13/24 00:07 Dose: 1 drops Documented By: CARMELINA Nystatin (Nystatin Powder 15gm Btl) 1 appln EXT BID [facility] Stop: 09/11/24 20:59 Last Admin: 08/14/24 08:48 Dose: 1 appln Documented By: Admin: 08/13/24 20:29 Dose: 1 appln Documented By: Admin: 08/13/24 09:48 Dose: 1 appln Documented By: Admin: 08/12/24 22:17 Dose: 1 appln Documented By: KESHIA Pantoprazole Sodium (Pantoprazole 40 Mg Tab) 40 mg PO BID [facility] Stop: 09/11/24 20:59 Last Admin: 08/14/24 08:49 Dose: 40 mg Documented By: [facility] Admin: 08/13/24 20:29 Dose: 40 mg Documented By: Admin: 08/13/24 09:48 Dose: 40 mg Documented By: Admin: 08/12/24 22:15 Dose: 40 mg Documented By: KESHIA Pravastatin Sodium (Pravastatin Sod 40 Mg Tab) [address] [facility] Stop: 09/11/24 20:59 Last Admin: 08/13/24 20:29 Dose: 40 mg Documented By: Admin: 08/12/24 22:15 Dose: 40 mg Documented By: KESHIA Rivaroxaban (Rivaroxaban 20 Mg Tab) 20 mg PO QPM [facility] Stop: 09/11/24 20:59 Last Admin: 08/13/24 20:29 Dose: 20 mg Documented By: Admin: 08/12/24 22:15 Dose: 20 mg Documented By: KESHIA Sacubitril/Valsartan (Valsartan/Sacubitril 26/24mg Tab) 1 tab PO BID [facility] Stop: 09/12/24 08:59 Last Admin: 08/14/24 08:48 Dose: 1 tab Documented By: Admin: 08/13/24 20:29 Dose: 1 tab Documented By: Admin: 08/13/24 09:47 Dose: 1 tab Documented By: RENATA Sennosides (Senna 8.6 Mg Tab) 17.2 mg PO BID [facility] Stop: 09/11/24 20:59 Last Admin: 08/14/24 08:48 Dose: 17.2 mg Documented By: Admin: 08/13/24 20:29 Dose: 17.2 mg Documented By: Admin: 08/13/24 09:47 Dose: 17.2 mg Documented By: Admin: 08/12/24 22:16 Dose: 17.2 mg Documented By: KESHIA Tamsulosin HCl (Tamsulosin Hcl 0.4 Mg Cap) 0.[address] [facility] Stop: 09/11/24 20:59 Last Admin: 08/13/24 20:29 Dose: 0.4 mg Documented By: Admin: 08/12/24 22:14 Dose: 0.4 mg Documented By: KESHIA Discontinued Medications Amiodarone HCl (Amiodarone 200 Mg Tab) 200 mg PO NOW ONE Stop: 08/12/24 14:51 Last Admin: 08/12/24 16:17 Dose: 200 mg Documented By: LILIYA Aspirin (Aspirin 81 Mg Ectab) 81 mg PO NOW STA Stop: 08/12/24 14:47 Last Admin: 08/12/24 15:08 Dose: 81 mg Documented By: DS Bumetanide (Bumetanide 1 Mg Tab) 1 mg PO NOW STA Stop: 08/12/24 14:47 Last Admin: 08/12/24 15:08 Dose: 1 mg Documented By: DS Duloxetine HCl (Duloxetine Hcl 60 Mg Cap) 60 mg PO ONE STA Stop: 08/12/24 14:52 Last Admin: 08/12/24 15:34 Dose: 60 mg Documented By: DS Gabapentin (Gabapentin 600 Mg Tab) 600 mg PO ONE STA Stop: 08/12/24 14:47 Last Admin: 08/12/24 15:08 Dose: 600 mg Documented By: DS Meropenem 500 mg/ Syringe 10 mls @ 2 mls/min IV NOW STA; Protocol Stop: 08/12/24 13:17 Last Admin: 08/12/24 15:08 Dose: 2 mls/min Documented By: DS Meropenem 500 mg/ Syringe 10 mls @ 2 mls/min IV Q8H [facility]; Protocol Stop: 08/17/24 21:59 Last Admin: 08/13/24 05:41 Dose: 2 mls/min Documented By: Admin: 08/12/24 22:18 Dose: 2 mls/min Documented By: KESHIA Lactated Ringer's (Lr) 500 mls @ 999 mls/hr IV .Q31M ONE Stop: 08/12/24 23:25 Last Infusion: 08/12/24 23:49 Dose: Infused Documented By: Admin: 08/12/24 23:02 Dose: 999 mls/hr Documented By: KESHIA Metoprolol Succinate (Metoprolol Succ 25mg Ext Rel Tab) 12.5 mg PO ONE STA Stop: 08/12/24 14:52 Last Admin: 08/12/24 15:34 Dose: 12.5 mg Documented By: DS Imaging Data Radiologist's Impression: Chest X-Ray 08/12/24 11:32 XR chest 1V portable CLINICAL HISTORY: sob, syncope COMPARISON STUDY: 05/18/2024 FINDINGS: Heart size and pulmonary vasculature are normal. No effusion, consolidation, or pneumothorax. Stable right hilar calcification consistent with prior granulomatous disease. IMPRESSION: No acute findings. ACT 112: Negative or not required by law. Electronically signed by: Brian Kim M.D. 08/12/2024 11:53 AM Discharge Plan Visit Data Chief Complaint: Syncope (Near Syncope) Stated Complaint: SYNCOPE ED Provider: Lisa Kohli Discharge Problem: Syncope, Acute UTI (urinary tract infection) Patient Disposition: Admitted As Inpatient Discharge Instructions Interventions: ED Discharge Assessment Last Done: 08/12/24 16:14
--- NOTE | 2024-08-12 11:54 | XRay Report ---
XR chest 1V portable CLINICAL HISTORY: sob, syncope COMPARISON STUDY: 05/18/2024 FINDINGS: Heart size and pulmonary vasculature are normal. No effusion, consolidation, or pneumothora x. Stable right hilar calcification consistent with prior granulomatous disease. IMPRESSION: No acute findings. ACT 112: Negative or not required by law. Electronically signed by: Brian Kim M.D. 08/12/2024 11:53 AM
[2024-08-12 12:09] LABS: Alanine Aminotransferase 74 U/L (7-52); Albumin Globulin Ratio 1.2 (0.9-2); Albumin Level 3.8 gm/dl (3.4-5.0); Alkaline Phosphatase 82 U/L (34-104); Anion Gap 5 (3-11); Aspartate Aminotransferase 60 U/L (13-39); BUN Creatinine Ratio 34.8 (10-20); Bilirubin,Total 0.5 mg/dl (0.2-1.0); Blood Urea Nitrogen 47 mg/dl (6-23); Calcium 8.9 mg/dl (8.6-10.3); Carbon Dioxide 30 mmol/L (21-32); Chloride 104 mmol/L (98-107); Globulin 3.1 gm/dl (2.5-4.0); Glucose 88 mg/dl (70-99(Fasting)); Lipase 23 U/L (11-82); Magnesium 2.3 mg/dl (1.7-2.4); Potassium 4.8 mmol/L (3.5-5.1); Sodium 139 mmol/L (136-145); Total Protein 6.9 gm/dl (6.0-8.3)
[2024-08-12 12:15] LABS: Troponin I High Sensitivity 22.6 pg/ml (0-20)
[2024-08-12 12:18] LABS: INR 1.2 (0.9-1.1)
--- NOTE | 2024-08-12 12:39 | Electrocardiogram Report ---
Test Reason : Blood Pressure : */* mmHG Vent. Rate : 59 BPM Atrial Rate : 59 BPM P-R Int : 208 ms QRS Dur : 126 ms QT Int : 462 ms P-R-T Axes : 36 -37 12 degrees QTcB Int : 457 ms Sinus bradycardia Left axis deviation Non-specific intra-ventricular conduction block Abnormal ECG When compared with ECG of 22-Jul-2024 18:35, No significant change was found Confirmed by Jong Watson ([id number]) on 08/12/2024 12:39:14 PM Referred By: REFERRED SELF Confirmed By: Jong Watson
[2024-08-12 12:58] LABS: Appearance Urine Turbid (Clear); Bacteria Urine Automated 4+ (None Seen); Bilirubin Urine Negative (Negative); Blood Urine Trace (Negative); Color Urine Yellow; Epithelial Cell Urine Auto 0-2 /hpf (0-2); Glucose Urine UA 2+ (Negative); Ketones Urine Negative (Negative); Leukocyte Esterase Urine 3+ (Negative); Nitrite Urine Positive (Negative); Protein Urine 1+ (Negative); RBC Urine Automated 0-2 /hpf (0-2); Urobilinogen Urine Negative (Negative); WBC Urine Automated >50 /hpf (0-5); pH Urine >= 9.0 (4.5-7.5)
[2024-08-12 14:57] LABS: C Reactive Protein 2.42 mg/dl (0-0.5)
[2024-08-12 15:00] LABS: Basophils # (auto) 0.02 K/uL (0.00-0.20); Basophils % (auto) 0.3 %; Eosinophils # (auto) 0.14 K/uL (0.00-0.50); Eosinophils % (auto) 1.8 %; Immature Granulocytes # (auto) 0.03 K/uL (0.01-0.20); Immature Granulocytes % (auto) 0.4 %; Lymphocytes % (auto) 10.1 %; Mean Corpuscular Hemoglobin 30.5 pg (25.0-34.0); Mean Corpuscular Hgb Conc 31.6 g/dL (32.0-36.0); Mean Corpuscular Volume 96.7 fL (80.0-100.0); Mean Platelet Volume 10.1 fL (9.4-12.4); Monocytes # (auto) 1.01 K/uL (0.11-0.59); Monocytes % (auto) 12.8 %; Neutrophils # (auto) 5.92 K/uL (1.40-6.50); Neutrophils % (auto) 74.6 %; Platelet Count 213 K/uL (130-400); RDW Coefficient of Variation 18.2 % (11.5-14.5); RDW Standard Deviation 64.2 fL (36.4-46.3); Red Blood Count 3.93 M/uL (4.70-6.10); White Blood Count 7.92 K/ul (4.8-10.8)
[2024-08-12] MEDS: MEROPENEM 500 MG in SYRINGE 0 ML IV STA (15:08)
[2024-08-12] MEDS: ASPIRIN 81 MG ECTAB PO STA (15:08)
[2024-08-12] MEDS: GABAPENTIN 600 MG TAB PO STA (15:08)
[2024-08-12] MEDS: BUMETANIDE 1 MG TAB PO STA (15:08)
[2024-08-12] MEDS: DULoxetine HCL 60 MG CAP PO STA (15:34)
[2024-08-12] MEDS: METOPROLOL SUCC 25MG EXT REL TAB PO STA (15:34)
[2024-08-12 15:36] LABS: Adenovirus PCR Not Detected (NotDetected); Bordetella parapertussis PCR Not Detected (NotDetected); Bordetella pertussis PCR Not Detected (NotDetected); Chlamydia pneumoniae PCR Not Detected (NotDetected); Coronavirus 229E PCR Not Detected (NotDetected); Coronavirus CoV-2 (COVID19)PCR Not Detected (NotDetected); Coronavirus HKU1 PCR Not Detected (NotDetected); Coronavirus NL63 PCR Not Detected (NotDetected); Coronavirus OC43PCR Not Detected (NotDetected); Human Metapneumovirus PCR Not Detected (NotDetected); Influenza A PCR Not Detected (NotDetected); Influenza B PCR Not Detected (NotDetected); Mycoplasma pneumoniae PCR Not Detected (NotDetected); Parainfluenza Virus 1 PCR Not Detected (NotDetected); Parainfluenza Virus 2 PCR Not Detected (NotDetected); Parainfluenza Virus 3 PCR Not Detected (NotDetected); Parainfluenza Virus 4 PCR Not Detected (NotDetected); Respiratory Syncytial VirusPCR Not Detected (NotDetected); Rhinovirus/Enterovirus PCR Not Detected (NotDetected)
[2024-08-12] MEDS: AMIODARONE 200 MG TAB PO ONE (16:17)
[2024-08-12] MEDS ORDERED: PANTOprazole 40 MG TAB PO SCH (21:00)
[2024-08-12] MEDS ORDERED: VALSARTAN/SACUBITRIL 26/24MG TAB PO SCH (21:00)
[2024-08-12] MEDS: TAMSULOSIN HCL 0.4 MG CAP PO SCH (22:14)
[2024-08-12] MEDS: GABAPENTIN 600 MG TAB PO SCH (22:15)
[2024-08-12] MEDS: PRAVASTATIN SOD 40 MG TAB PO SCH (22:15)
[2024-08-12] MEDS: RIVAROXABAN 20 MG TAB PO SCH (22:15)
[2024-08-12] MEDS: PANTOprazole 40 MG TAB PO SCH (22:15)
[2024-08-12] MEDS: MIRTAZAPINE TAB 15 MG TAB PO SCH (22:15)
[2024-08-12] MEDS: MELATONIN 3 MG TAB PO SCH (22:16)
[2024-08-12] MEDS: SENNA 8.6 MG TAB PO SCH (22:16)
[2024-08-12] MEDS: HYDROCODONE/ACETAMOPHEN 5/325MG TAB PO PRN (22:16)
[2024-08-12] MEDS: DICLOFENAC SOD 1% GEL 100 GM TUBE EXT PRN (22:17)
[2024-08-12] MEDS: NYSTATIN POWDER 15GM BTL EXT SCH (22:17)
[2024-08-12] MEDS: guaiFENesin SUGAR FREE 100 MG/5 ML UDC PO PRN (22:17)
[2024-08-12] MEDS: MEROPENEM 500 MG in SYRINGE 0 ML IV SCH (22:18)
[2024-08-12] MEDS: LACTATED RINGER'S 500 ML IV ONE (23:02)
[2024-08-13] MEDS: NETARSUDIL MESYLAT/LATANOPROST 37 DROPS/2.5 ML BTL OP SCH (00:07)
[2024-08-13] MEDS ORDERED: AMIODARONE 200 MG TAB PO SCH (08:00)
--- NOTE | 2024-08-13 09:31 | History & Physical Report ---
Date of Service August 12, 2024 Assessment & Plan (1) Acute UTI (urinary tract infection): (2) HFrEF (heart failure with reduced ejection fraction): (3) Venous stasis ulcers of both lower extremities: (4) Paroxysmal atrial fibrillation: (5) Transaminitis: (6) Syncope: Plan 78 year old male with recent ESBL Proteus [facility] after return of dysuria and syncopal event associated with coughing #Syncope Occurred in the setting of coughing - vasovagal in setting of UTI Possible can continue all his usual medications as UTI is treated but hold Entresto just for tonight #Acute UTI Recently diagnosed ESBL Proteus treated with Ertapenem. Suspect still growing the same but because he just came off ertapenem 1 week ago, will switch to meropenem pending repeat culture Most likely reason for failure is the Jardiance and should be discontinued permanently Alternatively prostatitis and will add PSA, ESR and CRP to labs - consider ID consult to determine duration of antibiotics once culture is back Alternatively will assess patient for urinary retention with post void bladder scan No pain to suggest kidney stone Probiotics while on antibiotics #Paroxysmal atrial fibrillation/flutter Discharged on amiodarone 400mg PO BID in May, this should have been reduced by now but not yet followed up with cardiology due to hospitalizations and [facility]. Discussed with Dr Horne (cardiology) over the phone and will reduce to amiodarone 200mg PO daily Continue anticoagulation with Xarelto #HFrEF - acute on chronic No significant pulmonary edema on CXR but missed some days of Bumex and he thinks his volume is slightly increased with mild shortness of breath and increased leg swelling Will give Bumex 1mg PO today and go back to his usual dosing of 0.5mg PO daily tomorrow Low Na diet I&Os Daily weights #Chronic venous ulcers Consult wound care Continue wound care outlined from last admission #LEONARD Not currently on CPAP but planning on repeating study with the [facility] to qualify for CPAP CPAP HS while here if patient able to tolerate #Transaminitis Mild, appears to fluctuate with infection VTE Prophylaxis - Xarelto Diet - Low Na, heart healthy Disposition - admit to med/tele Admission and Anticipated Discharge Date Admission Date: August 12, 2024 History of Present Illness Chief Complaint: Dysuria Syncope Primary Care Provider: DO Lowell Lopez (Corky) is an 78 year old male who presents to the ER with dysuria and a syncopal episode while at the [place] office earlier today. He was recently treated with ESBL Proteus on ertapenem and discharged from [facility] on July 27, 2024. He finished the course of Ertapenem and restarted his Jardiance following this. He started noticing dysuria over the last 2 days and was following up with the [place] office as a routine appointment today. While in the office he was leaning forward and briefly lost consciousness while coughing. He currently denies any dizziness or lightheadedness. This has happened previously. With regards to his heart failure he has been a little more short of breath and leg swelling mildly worse than usual. He has not been taking his bumetanide ever day as he doesn't like how much it makes him urinate. Allergies Allergy/AdvReac Type Severity Reaction Status Date / Time cat dander Allergy Severe CAT Verified 08/12/24 13:55 HAIR---Swelling of Lip/Tongue/Throat Home Medications Medication Instructions Recorded Confirmed Type aspirin 81 mg tablet,delayed 81 mg PO QAM 08/07/22 08/12/24 History release (Adult Low Dose Aspirin) cyanocobalamin (vitamin B-12) 500 1,000 mcg (2 x 500 mcg) PO QAM #30 01/18/23 08/12/24 Rx mcg tablet tabs duloxetine 60 mg capsule,delayed 60 mg PO QAM #90 caps 10/29/23 08/12/24 Rx release rivaroxaban 20 mg tablet (Xarelto) 20 mg PO QPM 11/19/23 08/12/24 History sennosides 8.6 mg tablet 8.6 mg PO BID 12/15/23 08/12/24 History mirtazapine 30 mg tablet 30 mg PO HS 01/21/24 08/12/24 History nitroglycerin 0.4 mg sublingual 0.4 mg sublingual DIRECTED PRN 01/21/24 08/12/24 History tablet chest pin pravastatin 40 mg tablet 40 mg PO HS 01/21/24 08/12/24 History vitamin E 268 mg (400 unit) capsule 268 mg PO DAILY ##0 01/21/24 08/12/24 History acetaminophen 325 mg tablet 975 mg PO Q8H PRN mild pain,fever, 01/26/24 08/12/24 History or headache ferrous sulfate 325 mg (65 mg 325 mg PO DAILY #90 tabs 05/11/24 08/12/24 Rx iron) tablet sacubitril 24 mg-valsartan 26 mg 1 tab PO BID #180 tabs 05/11/24 08/12/24 Rx tablet (Entresto) gabapentin 600 mg tablet 600 mg PO TID neuropathy from 05/12/24 08/12/24 Rx severe PVD wounds 1 month #90 tabs bumetanide 0.5 mg tablet 0.5 mg PO DAILY 05/27/24 08/12/24 History sulfamethoxazole 800 1 tab PO DAILY 07/14/24 08/12/24 History mg-trimethoprim 160 mg tablet (Bactrim DS) collagenase clostridium histo. 250 1 applic topical DAILY #30 grams 07/22/24 08/12/24 Rx unit/gram topical ointment (Santyl) diclofenac sodium 1 % topical gel 2 g topical QID PRN Shoulder Pain 07/22/24 08/12/24 History esomeprazole magnesium 40 mg 40 mg PO HS 07/22/24 08/12/24 History capsule,delayed release (Nexium) glucosamine sulfate 500 mg tablet 500 mg PO QAM 07/22/24 08/12/24 History (Glucosamine) guaifenesin 100 mg/5 mL oral liquid 200 mg PO Q4H PRN Cough 07/22/24 08/12/24 History hydrocodone 5 mg-acetaminophen 325 1 tab PO Q6 PRN Moderate Pain 07/22/24 08/12/24 History mg tablet (Scale Score 5-6) melatonin 3 mg tablet 6 mg PO HS 07/22/24 08/12/24 History multivitamin 1 tab PO QAM 07/22/24 08/12/24 History omega-3 fatty acids 1,250 mg 1,250 mg PO QAM 07/22/24 08/12/24 History capsule tamsulosin 0.4 mg capsule 0.4 mg PO HS 07/22/24 08/12/24 History Lactobacillus acidophilus 1 tab PO DAILY 08/12/24 08/12/24 History amiodarone 200 mg tablet 400 mg PO BIDWMEAL 08/12/24 08/12/24 History cholecalciferol (vitamin D3) 10 20 mcg PO DAILY 08/12/24 08/12/24 History mcg (400 unit) tablet (Vitamin D3) empagliflozin 25 mg tablet 12.5 mg PO DAILY 08/12/24 08/12/24 History folic acid 1 mg tablet 1 mg PO DAILY 08/12/24 08/12/24 History metoprolol succinate 50 mg 12.5 mg PO QAM 08/12/24 08/12/24 History tablet,extended release 24 hr netarsudil 0.02 %-latanoprost 1 drp OPB HS 08/12/24 08/12/24 History 0.005 % eye drops (Rocklatan) omeprazole 20 mg capsule,delayed 20 mg PO DAILY 08/12/24 08/12/24 History release thiamine HCl (vitamin B1) 100 mg 100 mg PO DAILY 08/12/24 08/12/24 History tablet vitamins B1 2.5 mg-B2 2.5 1 tab PO DAILY 08/12/24 08/12/24 History mg-niacin 5 mg-B12 100 mcg-protease tablet (B-Complex With B-12) Past Med/Surg History Problem List (Updated 08/13/24 @ 09:29 by Shaheen Amor MD) Paroxysmal atrial fibrillation Acute UTI (urinary tract infection) (Acute) Syncope (Acute) HFrEF (heart failure with reduced ejection fraction) Transaminitis Venous stasis ulcers of both lower extremities UTI (urinary tract infection) Non-pressure chronic ulcer of other part of left foot limited to breakdown of skin Non-pressure chronic ulcer of other part of right foot limited to breakdown of skin Peripheral arterial disease (Chronic) Pressure ulcer of right foot, stage 3 Chronic diastolic heart failure History of infection of total joint prosthesis of knee Atrial fibrillation History of MRSA infection Recurrent cellulitis of lower extremity (Acute) Polyneuropathy Depression Atrial flutter (Acute) Atrial fibrillation with RVR Open wound of knee (Acute) Venous ulcers of both lower extremities (Acute) Pain associated with wound Palliative care by specialist Advanced care planning/counseling discussion Back pain VRE bacteremia Ambulatory dysfunction Infection of prosthetic right knee joint Weakness (Acute) Fall (Acute) Anemia (Acute) Hypomagnesemia (Acute) Bilateral cellulitis of lower leg (Acute) Peripheral neuropathy Chronic venous stasis Cellulitis of both feet (Acute) Rheumatoid arthritis Open wound of foot Open wound of right hand (Acute) Chronic wound Lymphangitis of lower extremity Hypomagnesemia (Acute) Open wound of left upper arm (Acute) Open wound of left arm with tendon injury Gram-negative bacteremia Cellulitis of right lower extremity (Acute) Generalized weakness (Acute) Elevated procalcitonin (Acute) Acute kidney injury superimposed on chronic kidney disease (Acute) Skin tear of right upper extremity (Acute) Open wound of left foot (Acute) Open wound of right foot (Acute) Skin tear of right hand without complication (Acute) Venous ulcer of left leg (Acute) Traumatic open wound of right lower leg (Acute) Elevated LFTs MRSA bacteremia Dislocation, hip closed (Acute) Dislocation, hip, posterior Rotator cuff arthropathy of both shoulders Abrasion of right knee (Acute) Pain of right hip Prophylactic antibiotic Left shoulder pain Acquired foot deformity (Chronic) Traumatic wound (Acute) Pressure ulcer of left foot, stage 3 (Acute) Abnormal ankle brachial index (Acute) Right knee pain Non-ST elevation NE (NSTEMI) (Acute) Leukocytosis (Acute) Myoclonus Cervical radiculopathy Neuropathy Weakness On amiodarone therapy Weakness of right hip Constipation Sepsis following procedure Rhabdomyolysis MRSA infection History of CHF (congestive heart failure) Visual disturbance Hyponatremia Hypotension Acute metabolic encephalopathy Abdominal wall abscess (Acute) HFrEF (heart failure with reduced ejection fraction) EF 40% Mar 2022, improved 55-60% August 2022 Lumbar stenosis Osteoarthritis of right knee Anxiety and depression Hypertension Coronary artery disease Atherogenic dyslipidemia Lumbar radiculopathy Lower extremity weakness Degenerative spondylolisthesis Chronic low back pain Scoliosis of lumbar region due to degenerative disease of spine in adult Dislocation of hip, right, closed (Acute) Septic joint of right knee joint COVID-19 (Acute) Incisional hernia Incarcerated intra-abdominal hernia (Acute) Adjustment disorder with mixed anxiety and depressed mood Medical History Hyperkalemia Lethargy JEFFERY (acute kidney injury) Ischemic ulcer of left foot Ischemic ulcer of right foot Bilateral lower leg cellulitis PVD (peripheral vascular disease) Atrial flutter with rapid ventricular response Open wound of left lower extremity Sepsis secondary to UTI Fever Sepsis due to skin infection Sepsis Fall Infected hardware in right leg Chronic infection of right knee UTI (urinary tract infection) Severe sepsis Venous ulcer of right leg Venous stasis ulcers of both lower extremities Idiopathic polyneuropathy History of immunosuppressive therapy Heart failure with preserved ejection fraction GERD (gastroesophageal reflux disease) Sepsis Septicemia due to Streptococcus pneumoniae Respiratory failure with hypoxia Hypomagnesemia Pneumonia Benign essential hypertension Lumbar stenosis Hx of staphylococcal infection 03/2022, w/"bacterial infection" at the same, in the rt. knee, occurrred d uring atrial fibrillation episode. "when he woke up, he couldn't walk." Atrial fibrillation episode occurred in 03/2022, taken to [facility] in [place], admitted to ICU for 1-2 weeks (was not intubated, but wasn't "awake either"), then to cardiac unit, then to rehab at [facility]; f/u dr. guerra in [place]>will be starting to see a mold filling operator at [facility] 2nd week of 08/2022 Myocardial Infarction "a silent one, 2019" Sleep apnea no device Surgical History Status post revision of total replacement of right knee Hx of Achilles tendon repair rt. Hx of knee surgery rt. patellar tendon repair Hx of rotator cuff surgery bilateral Hx of total knee replacement lt. Hx of total hip arthroplasty rt. History of colostomy reversal History of bowel resection for diverticulitis; w/colostomy placement for 3-4 months Hx of hernia repair near former colostomy site History of esophagogastroduodenoscopy (EGD) Hx of colonoscopy Last Colonoscopy 08/14/22, repeat 3 years in 2025 Hx of bilateral cataract extraction History of heart artery stent ~3 years ago, x2 stents, done in [place]; f/u dr guerra, [place]>will be seeing new cardio at [place] week of August 2022. History of cardiac cath ~3 years ago, SOB and "felt like throat was constricting", had "silent heart attack", x2 stents, done in [place] Family History Grandmother (Maternal) Diabetes Daughter Diabetes Father Suicide Hypertension Denies family history of Ovarian cancer Prostate cancer Myocardial infarction Breast cancer Lung cancer Colorectal cancer Stroke Social History Smoking Status: Never smoker Second Hand Exposure: No; Do You Dip or Chew Tobacco: No; Hx Alcohol Use: Yes Alcohol type: wine Alcohol Intake Frequency: 4 or More x per/Week Hx Substance Use: No Preferred Language: Arabic Communication Ability: Effective Visual Impairment: Limited Hearing Ability: Normal Dental Scheduler Required: No Beliefs That Will Affect Care: None marital status: Single Current Living Situation: Personal Care Facility Current Living Situation Comment: [facility] current occupational status: retired How many Children do You have: 2 Feels Safe at Home: Yes Safety Concerns: Feels Safe At This Time Childhood Exposure to Second-Hand Smoke: Yes Diet: regular caffeine: Yes Dental Care, Regularly: Yes Physical Activity Frequency: Does not Exercise Seatbelt Use: always Sunscreen Use: Yes Assistive Devices: Glasses and Wheelchair Review of Systems 2 Review of Systems: All systems reviewed & are unremarkable except as noted in HPI & below Physical Exam Constitutional: well developed; + not well nourished and no acute distress ENMT: external ear and nose normal, oropharynx normal Respiratory: normal respiratory effort, lungs clear to auscultation Cardiovascular: Rate/Rhythm: regular rate and regular rhythm Heart Sounds: no murmur Extremities: + pedal edema (2+ b/l pitting) Gastrointestinal (Abdomen): normal bowel sounds, soft, nontender, no he patosplenomegaly Skin: chronic venous ulcers on legs without overt cellulitis - reportedly improving Neurologic: moves all extremities and awake; not confused Genitourinary: no CVA tenderness Results & Data Results & Data Vital Signs (Past 12 Hours) Vital Signs Temp Pulse Resp BP Pulse Ox O2 Del Method 08/12/24 14:12 75 18 08/12/24 13:39 60 19 08/12/24 13:24 60 18 08/12/24 13:00 124/82 08/12/24 12:33 20 08/12/24 12:30 60 16 08/12/24 12:03 59 L 16 97 08/12/24 12:00 166/90 H 08/12/24 12:00 166/90 H 08/12/24 11:52 57 L 08/12/24 11:51 61 20 96 08/12/24 11:36 59 L 16 08/12/24 11:24 55 L 17 96 08/12/24 11:00 126/76 08/12/24 10:54 36.8 C 66 14 128/75 98 Room Air 08/12/24 10:48 62 17 08/12/24 10:40 128/75 Laboratory Results Abnormal lab results 08/12/24 08/12/24 08/12/24 Range/Units 10:50 12:25 14:36 RBC 3.93 L (4.70-6.10) M/uL Hgb 12.0 L (14.0-18.0) g/dl Hct 38.0 L (42.0-52.0) % MCHC 31.6 L (32.0-36.0) g/dL RDW Std Deviation 64.2 H (36.4-46.3) fL RDW Coeff of Sammie 18.2 H (11.5-14.5) % Lymph # (Auto) 0.80 L (1.20-3.40) K/uL [place] # (Auto) 1.01 H (0.11-0.59) K/uL ESR 29 H (0-20) mm/hr PT 13.0 H (9.0-12.0) Seconds INR 1.2 H (0.9-1.1) BUN 47 H (6-23) mg/dl BUN/Creatinine Ratio 34.8 H (10-20) AST 60 H (13-39) U/L ALT 74 H (7-52) U/L Troponin I High Sens 22.6 H (0-20) pg/ml C-Reactive Protein 2.42 H (0-0.5) mg/dl B-Natriuretic Peptide 269 H (0-100) pg/ml Prostate Specific Ag 4.054 H (0-4) ng/ml Urine Appearance Turbid A (Clear) Urine pH >= 9.0 H (4.5-7.5) Urine Protein 1+ H (Negative) Urine Glucose (UA) 2+ H (Negative) Urine Blood Trace H (Negative) Urine Nitrite Positive A (Negative) Ur Leukocyte Esterase 3+ H (Negative) Urine WBC (Auto) >50 H (0-5) /hpf U Hyaline Cast (Auto) 3-5 H (0-2) /lpf Urine Bacteria (Auto) 4+ H (None Seen) Diagnostic Findings XR chest 1V portable CLINICAL HISTORY: sob, syncope COMPARISON STUDY: 05/18/2024 FINDINGS: Heart size and pulmonary vasculature are normal. No effusion, consolidation, or pneumothorax. Stable right hilar calcification consistent with prior granulomatous disease. IMPRESSION: No acute findings. Medications Administered ER Medications Given: Meropenem 500mg IV ECG Rate (beats per minute): 59 Rhythm: normal sinus Findings: + other (Non-specific intraventricular block) and + left axis deviation Comparison ECG Date: from (Jul 22, 2024) Change: no significant change Code Status & VTE Plan Code Status Full VTE Prophylaxis Plan VTE Prophylaxis will be ordered: Yes PG Care Time/CCT Total # of Minutes Spent Total Time Spent with Patient: Total time spent is greater than 50% in coordination of care (as documented) at patient's floor/unit and/or counseling patient: Coding Level of Care Code 34546 INT INP/OBS CARE 375MIN Diagnoses Acute UTI (urinary tract infection) N39.0 HFrEF (heart failure with reduced ejection fraction) I50.20 Venous stasis ulcers of both lower extremities I83.019; I83.029; L97.919; L97.929 Paroxysmal atrial fibrillation I48.0 Transaminitis R74.01 Syncope R55
[2024-08-13] MEDS: VALSARTAN/SACUBITRIL 26/24MG TAB PO SCH (09:47)
[2024-08-13] MEDS: ADVANCED PROBIOTIC 625 MG CAPSULE PO SCH (09:47)
[2024-08-13] MEDS: DULoxetine HCL 60 MG CAP PO SCH (09:48)
[2024-08-13] MEDS: ASPIRIN 81 MG ECTAB PO SCH (09:48)
[2024-08-13] MEDS: AMIODARONE 200 MG TAB PO SCH (09:49)
[2024-08-13] MEDS: METOPROLOL SUCC 25MG EXT REL TAB PO SCH (09:50)
[2024-08-13 10:39] LABS: Hematocrit (blood only) 37.4 % (42.0-52.0); Hemoglobin 11.9 g/dl (14.0-18.0); Mean Corpuscular Hemoglobin 30.7 pg (25.0-34.0); Mean Corpuscular Hgb Conc 31.8 g/dL (32.0-36.0); Mean Corpuscular Volume 96.6 fL (80.0-100.0); Mean Platelet Volume 10.2 fL (9.4-12.4); Platelet Count 210 K/uL (130-400); RDW Coefficient of Variation 18.4 % (11.5-14.5); RDW Standard Deviation 65.1 fL (36.4-46.3); Red Blood Count 3.87 M/uL (4.70-6.10); White Blood Count 6.85 K/ul (4.8-10.8)
[2024-08-13 10:57] LABS: Calcium 8.5 mg/dl (8.6-10.3); Creatinine Clr Calc Pharmacy 54.9 ml/min; Potassium 4.5 mmol/L (3.5-5.1)
[2024-08-13] MEDS: ERTAPENEM 1000MG 1,000 MG/10 ML SYR IV SCH (11:52)
--- NOTE | 2024-08-13 16:29 | Hospitalist Progress Note ---
Date of Service August 13, 2024 Assessment & Plan (1) Acute UTI (urinary tract infection): (2) HFrEF (heart failure with reduced ejection fraction): (3) Venous stasis ulcers of both lower extremities: (4) Paroxysmal atrial fibrillation: (5) Transaminitis: (6) Syncope: Plan 78 year old male with recent ESBL Proteus [facility] after return of dysuria and syncopal event associated with coughing #Syncope Occurred in the setting of coughing - vasovagal in setting of UTI Possible can continue all his usual medications as UTI is treated. Entresto was held last night. Resumed today. #Acute UTI Recently diagnosed ESBL Proteus treated with Ertapenem. Suspect still growing the same but because he just came off ertapenem 1 week ago, will switch to meropenem pending repeat culture Most likely reason for failure is the Jardiance and should be discontinued permanently Alternatively prostatitis. PSA, ESR and CRP all elevated- consider ID consult to determine duration of antibiotics once culture is back Alternatively will assess patient for urinary retention with post void bladder scan No pain to suggest kidney stone Probiotics while on antibiotics Urine culture growing Proteus. Awaiting sensitivities. Will most likely consult infectious disease duration of antibiotics #Paroxysmal atrial fibrillation/flutter Discharged on amiodarone 400mg PO BID in May, this should have been reduced by now but not yet followed up with cardiology due to hospitalizations and [facility]. Admitting physician discussed with Dr Horne (cardiology) over the phone and reduced to amiodarone 200mg PO daily Continue anticoagulation with Xarelto #HFrEF - acute on chronic No significant pulmonary edema on CXR but missed some days of Bumex and he thinks his volume is slightly increased with mild shortness of breath and increased leg swelling Was given Bumex 1mg PO on admission and now back to his usual dosing of 0.5mg PO daily Low Na diet I&Os Daily weights #Chronic venous ulcers Consult wound care Continue wound care outlined from last admission #LEONARD Not currently on CPAP but planning on repeating study with the [facility] to qualify for CPAP CPAP HS while here if patient able to tolerate #Transaminitis Mild, appears to fluctuate with infection VTE Prophylaxis - Xarelto Diet - Low Na, heart healthy Disposition - admit to med/tele Admission and Anticipated Discharge Date Admission Date: August 12, 2024 Subjective Patient was seen and examined at 10:35 AM. He says that he does not feel significantly better yet. He still has the burning urination Review of Systems Review of Systems: All systems reviewed & are unremarkable except as noted in Subjective Physical Exam Physical Exam: General: Awake, conversant Heart: S1, S2/regular rate and rhythm, no murmur rubs or gallops Lungs: Clear to auscultation bilaterally. Normal effort Abdomen: Soft/nontender/nondistended. No hepatosplenomegaly Extremities: No clubbing/cyanosis. 2+ bilateral edema with chronic venous stasis changes. Behavior: Appropriate, cooperative Results & Data Results & Data Vital Signs (Past 12 Hours) Vital Signs Temp Pulse Pulse Resp BP Pulse Ox O2 Del Method 08/13/24 15:28 36.8 C 66 16 125/77 91 Room Air 08/13/24 15:06 61 08/13/24 12:24 Room Air, CPAP 08/13/24 12:00 36.6 C 79 20 154/78 H 96 Room Air 08/13/24 07:54 36.6 C 68 18 158/74 H 97 Room Air 08/13/24 07:47 Room Air, CPAP 08/13/24 07:16 59 L Laboratory Results Abnormal lab results 08/12/24 08/13/24 Range/Units 10:50 10:23 RBC 3.93 L 3.87 L (4.70-6.10) M/uL Hgb 12.0 L 11.9 L (14.0-18.0) g/dl Hct 38.0 L 37.4 L (42.0-52.0) % MCHC 31.6 L 31.8 L (32.0-36.0) g/dL RDW Std Deviation 64.2 H 65.1 H (36.4-46.3) fL RDW Coeff of Sammie 18.2 H 18.4 H (11.5-14.5) % Lymph # (Auto) 0.80 L (1.20-3.40) K/uL [place] # (Auto) 1.01 H (0.11-0.59) K/uL Carbon Dioxide 33 H (21-32) mmol/L BUN 42 H (6-23) mg/dl BUN/Creatinine Ratio 30.0 H (10-20) Glucose 144 H (70-99(Fasting)) mg/dl Calcium 8.5 L (8.6-10.3) mg/dl PG Care Time/CCT Total # of Minutes Spent Total Time Spent with Patient: Total time spent is greater than 50% in coordination of care (as documented) at patient's floor/unit and/or counseling patient: Coding Level of Care Code 06630 SUB INP/OBS CARE 2/35MIN Diagnoses Acute UTI (urinary tract infection) N39.0 HFrEF (heart failure with reduced ejection fraction) I50.20 Venous stasis ulcers of both lower extremities I83.019; I83.029; L97.919; L97.929 Paroxysmal atrial fibrillation I48.0 Transaminitis R74.01 Syncope R55
[2024-08-14 07:23] LABS: BUN Creatinine Ratio 31.9 (10-20); Calcium 8.4 mg/dl (8.6-10.3); Potassium 4.6 mmol/L (3.5-5.1)
[2024-08-14] MEDS: BUMETANIDE 1 MG TAB PO SCH (08:49)
--- NOTE | 2024-08-14 15:49 | Hospitalist Progress Note ---
Date of Service August 14, 2024 Assessment & Plan (1) Acute UTI (urinary tract infection): (2) HFrEF (heart failure with reduced ejection fraction): (3) Venous stasis ulcers of both lower extremities: (4) Paroxysmal atrial fibrillation: (5) Transaminitis: (6) Syncope: Plan 78 year old male with recent ESBL Proteus [facility] return of dysuria and syncopal event associated with coughing #Syncope Occurred in the setting of coughing - vasovagal in setting of UTI Possible can continue all his usual medications as UTI is treated. Entresto was held last night. Resumed today. #Acute UTI Recently diagnosed ESBL Proteus treated with Ertapenem. Suspect still growing the same but because he just came off ertapenem 1 week ago, will switch to meropenem pending repeat culture Most likely reason for failure is the Jardiance and should be discontinued permanently Alternatively prostatitis. PSA, ESR and CRP all elevated-urine culture growing ESBL Proteus again. Currently on ertapenem. Alternatively will assess patient for urinary retention with post void bladder scan No pain to suggest kidney stone Probiotics while on antibiotics Urine culture growing ESBL Proteus again. Currently on ertapenem. Consult infectious disease for duration of antibiotics. #Paroxysmal atrial fibrillation/flutter Discharged on amiodarone 400mg PO BID in May, this should have been reduced by now but not yet followed up with cardiology due to hospitalizations and [facility]. Admitting physician discussed with Dr Horne (cardiology) over the phone and reduced to amiodarone 200mg PO daily Continue anticoagulation with Xarelto #HFrEF - acute on chronic No significant pulmonary edema on CXR but missed some days of Bumex and he thinks his volume is slightly increased with mild shortness of breath and increased leg swelling Was given Bumex 1mg PO on admission and now back to his usual dosing of 0.5mg PO daily Discontinue Jardiance due to recurrent UTI Low Na diet I&Os Daily weights #Chronic venous ulcers Consult wound care Continue wound care outlined from last admission #LEONARD Not currently on CPAP but planning on repeating study with the [facility] to qualify for CPAP CPAP HS while here if patient able to tolerate #Transaminitis Mild, appears to fluctuate with infection VTE Prophylaxis - Xarelto Diet - Low Na, heart healthy Disposition - admit to med/tele Admission and Anticipated Discharge Date Admission Date: August 12, 2024 Subjective Patient was seen and examined at 11:10 AM. He says that he has burning urination has improved. But he is still urinating quite frequently. Overall feeling better. Review of Systems Review of Systems: All systems reviewed & are unremarkable except as noted in Subjective Physical Exam Physical Exam: General: Awake, conversant Heart: S1, S2/regular rate and rhythm, no murmur rubs or gallops Lungs: Clear to auscultation bilaterally. Normal effort Abdomen: Soft/nontender/nondistended. No hepatosplenomegaly Extremities: No clubbing/cyanosis. 2+ bilateral edema with chronic venous stasis changes. Behavior: Appropriate, cooperative Results & Data Results & Data Vital Signs (Past 12 Hours) Vital Signs Temp Pulse Pulse Resp BP Pulse Ox O2 Del Method 08/14/24 15:00 62 08/14/24 12:00 36.5 C 57 L 16 144/72 H 95 Room Air 08/14/24 08:30 Room Air 08/14/24 07:58 36.5 C 56 L 16 154/81 H 93 Room Air 08/14/24 07:00 55 L 08/14/24 05:12 36.8 C 61 16 156/89 H 95 BiPAP Laboratory Results Abnormal lab results 08/14/24 Range/Units 06:41 BUN 36 H (6-23) mg/dl BUN/Creatinine Ratio 31.9 H (10-20) Glucose 105 H (70-99(Fasting)) mg/dl Calcium 8.4 L (8.6-10.3) mg/dl PG Care Time/CCT Total # of Minutes Spent Total Time Spent with Patient: Total time spent is greater than 50% in coordination of care (as documented) at patient's floor/unit and/or counseling patient: Coding Level of Care Code 29267 SUB INP/OBS CARE 2/35MIN Diagnoses Acute UTI (urinary tract infection) N39.0 HFrEF (heart failure with reduced ejection fraction) I50.20 Venous stasis ulcers of both lower extremities I83.019; I83.029; L97.919; L97.929 Paroxysmal atrial fibrillation I48.0 Transaminitis R74.01 Syncope R55
[2024-08-15 08:17] LABS: BUN Creatinine Ratio 30.1 (10-20); Calcium 8.2 mg/dl (8.6-10.3); Creatinine Clr Calc Pharmacy 67.3 ml/min; Potassium 4.4 mmol/L (3.5-5.1)
[2024-08-15] MEDS: OPTIRAY 320 100ml IV ONE (10:57)
--- NOTE | 2024-08-15 11:20 | CT Scan Report ---
CT OF THE ABDOMEN AND PELVIS WITH CONTRAST CLINICAL HISTORY: Evaluate for recurrent UTI. COMPARISON STUDY: CT of the abdomen and pelvis January 21, 2024. TECHNIQUE: Following IV administration of 94 mL of Optiray, axial images of the abdomen and pelvis we re obtained from the lung bases to the proximal femurs. Images were reviewed in the axial, sagittal, and coronal planes. IV contrast was administered without complication. Automated exposure control wa s utilized for the study. A dose lowering technique was utilized adhering to the principles of ALARA . CT DOSE: 1514.54 mGy.cm FINDINGS: No pneumatosis, free air or portal venous gas is present. There is a trace left pleural eff usion. Subpleural opacity within the lower lungs represents atelectasis. A few subcentimeter hypodens e hepatic lesions are unchanged. These are benign. There is no biliary or pancreatic ductal dilatatio n. There is evidence for a previous granulomatous process with calcified subcarinal and right hilar l ymph nodes. There are calcified granulomas within the lower lungs and spleen. Adrenal glands are unre markable. A cystic 2.6 cm lesion within the pancreatic neck is similar to prior CT. This favors a des e branch IPMN. Water attenuation right renal lesions represent cysts. There is a 5 mm right renal jim culus. There is a punctate left renal calculus. There are no ureteral calculi and there is no hydrone phrosis. Images of the pelvis are degraded by streak artifact from a right hip arthroplasty. There is no evidence for a bowel obstruction. There is a moderate amount of stool within the colon and rectum . Is no lymphadenopathy. Postoperative findings consistent with sigmoid resection. There is colonic d iverticulosis without evidence for acute diverticulitis. Ventral hernia repair with mesh is present. IMPRESSION: 1. No acute process within the abdomen or pelvis. 2. No bowel obstruction. No bowel wall thickening. Moderate amount of stool within the colon and rect um. 3. Small bilateral renal calculi. No ureteral calculi. No hydronephrosis. ACT 112: Negative or not required by law. Electronically signed by: Jong Nascimento M.D. 08/15/2024 11:18 AM
--- NOTE | 2024-08-15 11:43 | Infectious Disease Consult ---
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 s/p DAIR + vanc x 6wks followed by doxy suppression (now on Bactrim as of 07/2024), right knee PJI 02/2024 at [place] s/p I+D on 02/20/24 with cx + Enterobacter cloacae, on abx ending 04/06/24 (was dcd on cefepime, changed to ertapenem 03/18 due to JEFFERY) and doxy suppression for prior MRSA, afib, CAD, depression, chronic venous stasis, peripheral neuropathy, chronic low back pain 2/2 spinal stenosis, L knee TKA, bl rotator cuff surgery, R hip arthroplasty, admission 03/2024 with VRE faecium bacteremia (TTE without vegetations, right knee aspiration neg, PICC removed for ?line infection) s/p daptomycin x 2wks, admission 05/26/24 with bilateral LE cellulitis dcd on bactrim x 10d, admission 06/10-06/22 with bl foot cellulitis s/p dapto/erta x 14d, admission 07/22-07/27 with JEFFERY/UTI 2/2 ESBL P mirabilis s/p ertapenem until 08/03 who presented on 08/12 with dysuria x 2 days and syncope. On admission, he was afebrile, one BP 76/48 with improvement. WBC wnl, Cr 1.35. AST 60, ALT 74. ESR 29, CRP 2.42. Elevated troponin. PSA 4.054. UA > 50 WBC. RPP neg. CXR negative. He was started on meropenem>erta for UTI. UCx with ESBL Proteus. ID consulted 08/15. Regarding recurrent UTI with ESBL P mirabilis, there is question regarding whether he has prostatitis. He doesnt have any perineal pain and I do note that PSA is elevated. However, elevated PSA is nonspecific and should not independently be used to establish the diagnosis of acute bacterial prostatitis. I am unable to get a prostate exam as that would be able to help identify prostatitis. We also dont have any imaging of the urinary tract to assess for any anatomical abnormalities (ie stones) that would indicate why he has recurrent infection. CTAP was ordered and now reported noting small bilateral renal calculi, which could be nidus of his infection. 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 However longer course would be needed if he does have clinical findings of prostatitis (ie 2-4 weeks) - Laine resumed outpatient Bactrim suppression as this is also being used for coverage of prior MRSA from his PJI Will continue to follow. If questions or concerns, contact via [employer] or Infectious Disease Call Center . Carmen Joy MD [facility], Division of Infectious Diseases Consultation Information Consultation was provided via telemedicine using two-way real-time interactive telecommunication between the patient and the telemedicine provider. For the duration of the visit, the provider was performing the assessment from a different facility than the patient. This includesuse of bluetooth stethoscope forauscultationperformed by the telepresenter that the telemedicine provider can hear if described in the physical exam. Wedding Makeup Artist contact information: Please call [facility] Call Center . (Phone Number For Physician Use Only) After establishing a telemedicine visit, patient was: Patient was verified with two unique identifiers, Patient/authorized rep acknowledged consent and understanding and Gave permission to continue telehealth session Time Spent with Patient: Initial => 75 min History of Present Illness Reason for Consultation: recurrent ESBL UTI, prostatitis? 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 s/p DAIR + vanc x 6wks followed by doxy suppression (now on Bactrim as of 07/2024), right knee PJI 02/2024 at [place] s/p I+D on 02/20/24 with cx + Enterobacter cloacae, on abx ending 04/06/24 (was dcd on cefepime, changed to ertapenem 03/18 due to JEFFERY) and doxy suppression for prior MRSA, afib, CAD, depression, chronic venous stasis, peripheral neuropathy, chronic low back pain 2/2 spinal stenosis, L knee TKA, bl rotator cuff surgery, R hip arthroplasty, admission 03/2024 with VRE faecium bacteremia (TTE without vegetations, right knee aspiration neg, PICC removed for ?line infection) s/p daptomycin x 2wks, admission 05/26/24 with bilateral LE cellulitis dcd on bactrim x 10d, admission 06/10-06/22 with bl foot cellulitis s/p dapto/erta x 14d, admission 07/22-07/27 with JEFFERY/UTI 2/2 ESBL P mirabilis s/p ertapenem until 08/03 who presented on 08/12 with dysuria x 2 days and syncope. [facility] and [facility] while [facility]ing. He has been more SOB and some worsening in LE swelling. On admission, he was afebrile, one BP 76/48 with improvement. WBC wnl, Cr 1.35. AST 60, ALT 74. ESR 29, CRP 2.42. Elevated troponin. PSA 4.054. UA > 50 WBC. RPP neg. CXR negative. He was started on meropenem>erta for UTI. UCx with ESBL Proteus. ID consulted 08/15. On evaluation, patient reports that he had dysuria since 08/10. Since being in the hospital, he has felt some improvement in dysuria, though not completely resolved. He does not have any abdominal pain, flank/back pain, no pain in perineum. He has not had any diarrhea. No issues with legs. He says his doxy suppression was changed to Bactrim 3 weeks ago here at [facility] since he was told that there was resistance to doxycycline. Allergies Allergy/AdvReac Type Severity Reaction Status Date / Time cat dander Allergy Severe CAT Verified 08/12/24 13:55 HAIR---Swelling of Lip/Tongue/Throat Home Medications Medication Instructions Recorded Confirmed Type aspirin 81 mg tablet,delayed 81 mg PO QAM 08/07/22 08/12/24 History release (Adult Low Dose Aspirin) cyanocobalamin (vitamin B-12) 500 1,000 mcg (2 x 500 mcg) PO QAM #30 01/18/23 08/12/24 Rx mcg tablet tabs duloxetine 60 mg capsule,delayed 60 mg PO QAM #90 caps 10/29/23 08/12/24 Rx release rivaroxaban 20 mg tablet (Xarelto) 20 mg PO QPM 11/19/23 08/12/24 History sennosides 8.6 mg tablet 8.6 mg PO BID 12/15/23 08/12/24 History mirtazapine 30 mg tablet 30 mg PO HS 01/21/24 08/12/24 History nitroglycerin 0.4 mg sublingual 0.4 mg sublingual DIRECTED PRN 01/21/24 08/12/24 History tablet chest pin pravastatin 40 mg tablet 40 mg PO HS 01/21/24 08/12/24 History vitamin E 268 mg (400 unit) capsule 268 mg PO DAILY ##0 01/21/24 08/12/24 History acetaminophen 325 mg tablet 975 mg PO Q8H PRN mild pain,fever, 01/26/24 08/12/24 History or headache ferrous sulfate 325 mg (65 mg 325 mg PO DAILY #90 tabs 05/11/24 08/12/24 Rx iron) tablet sacubitril 24 mg-valsartan 26 mg 1 tab PO BID #180 tabs 05/11/24 08/12/24 Rx tablet (Entresto) gabapentin 600 mg tablet 600 mg PO TID neuropathy from 05/12/24 08/12/24 Rx severe PVD wounds 1 month #90 tabs bumetanide 0.5 mg tablet 0.5 mg PO DAILY 05/27/24 08/12/24 History sulfamethoxazole 800 1 tab PO DAILY 07/14/24 08/12/24 History mg-trimethoprim 160 mg tablet (Bactrim DS) collagenase clostridium histo. 250 1 applic topical DAILY #30 grams 07/22/24 08/12/24 Rx unit/gram topical ointment (Santyl) diclofenac sodium 1 % topical gel 2 g topical QID PRN Shoulder Pain 07/22/24 08/12/24 History esomeprazole magnesium 40 mg 40 mg PO HS 07/22/24 08/12/24 History capsule,delayed release (Nexium) glucosamine sulfate 500 mg tablet 500 mg PO QAM 07/22/24 08/12/24 History (Glucosamine) guaifenesin 100 mg/5 mL oral liquid 200 mg PO Q4H PRN Cough 07/22/24 08/12/24 History hydrocodone 5 mg-acetaminophen 325 1 tab PO Q6 PRN Moderate Pain 07/22/24 08/12/24 History mg tablet (Scale Score 5-6) melatonin 3 mg tablet 6 mg PO HS 07/22/24 08/12/24 History multivitamin 1 tab PO QAM 07/22/24 08/12/24 History omega-3 fatty acids 1,250 mg 1,250 mg PO QAM 07/22/24 08/12/24 History capsule tamsulosin 0.4 mg capsule 0.4 mg PO HS 07/22/24 08/12/24 History Lactobacillus acidophilus 1 tab PO DAILY 08/12/24 08/12/24 History amiodarone 200 mg tablet 400 mg PO BIDWMEAL 08/12/24 08/12/24 History cholecalciferol (vitamin D3) 10 20 mcg PO DAILY 08/12/24 08/12/24 History mcg (400 unit) tablet (Vitamin D3) empagliflozin 25 mg tablet 12.5 mg PO DAILY 08/12/24 08/12/24 History folic acid 1 mg tablet 1 mg PO DAILY 08/12/24 08/12/24 History metoprolol succinate 50 mg 12.5 mg PO QAM 08/12/24 08/12/24 History tablet,extended release 24 hr netarsudil 0.02 %-latanoprost 1 drp OPB HS 08/12/24 08/12/24 History 0.005 % eye drops (Rocklatan) omeprazole 20 mg capsule,delayed 20 mg PO DAILY 08/12/24 08/12/24 History release thiamine HCl (vitamin B1) 100 mg 100 mg PO DAILY 08/12/24 08/12/24 History tablet vitamins B1 2.5 mg-B2 2.5 1 tab PO DAILY 08/12/24 08/12/24 History mg-niacin 5 mg-B12 100 mcg-protease tablet (B-Complex With B-12) Patient History Medical History Hyperkalemia Lethargy JEFFERY (acute kidney injury) Ischemic ulcer of left foot Ischemic ulcer of right foot Bilateral lower leg cellulitis PVD (peripheral vascular disease) Atrial flutter with rapid ventricular response Open wound of left lower extremity Sepsis secondary to UTI Fever Sepsis due to skin infection Sepsis Fall Infected hardware in right leg Chronic infection of right knee UTI (urinary tract infection) Severe sepsis Venous ulcer of right leg Venous stasis ulcers of both lower extremities Idiopathic polyneuropathy History of immunosuppressive therapy Heart failure with preserved ejection fraction GERD (gastroesophageal reflux disease) Sepsis Septicemia due to Streptococcus pneumoniae Respiratory failure with hypoxia Hypomagnesemia Pneumonia Benign essential hypertension Lumbar stenosis Hx of staphylococcal infection 03/2022, w/"bacterial infection" at the same, in the rt. knee, occurrred during atrial fibrillation episode. "when he woke up, he couldn't walk." Atrial fibrillation episode occurred in 03/2022, taken to [facility] in [place], admitted to ICU for 1-2 weeks (was not intubated, but wasn't "awake either"), then to cardiac unit, then to rehab at [facility] in [place]; f/u dr. guerra in [place]>will be starting to see a senior web engineer at [facility] 2nd week of 08/2022 Myocardial Infarction "a silent one, 2019" Sleep apnea no device Surgical History Status post revision of total replacement of right knee Hx of Achilles tendon repair rt. Hx of knee surgery rt. patellar tendon repair Hx of rotator cuff surgery bilateral Hx of total knee replacement lt. Hx of total hip arthroplasty rt. History of colostomy reversal History of bowel resection for diverticulitis; w/colostomy placement for 3-4 months Hx of hernia repair near former colostomy site History of esophagogastroduodenoscopy (EGD) Hx of colonoscopy Last Colonoscopy 08/14/22, repeat 3 years in 2025 Hx of bilateral cataract extraction History of heart artery stent ~3 years ago, x2 stents, done in [place]; f/u dr guerra, [place]>will be seeing new cardio at [place] 2nd week August 2022. History of cardiac cath ~3 years ago, SOB and "felt like throat was constricting", had "silent heart attack", x2 stents, done in [place] Family History Grandmother (Maternal) Diabetes Daughter Diabetes Father Suicide Hypertension Denies family history of Ovarian cancer Prostate cancer Myocardial infarction Breast cancer Lung cancer Colorectal cancer Stroke Social History Smoking Status: Never smoker Second Hand Exposure: No; Do You Dip or Chew Tobacco: No; Hx Alcohol Use: Yes Alcohol type: wine Alcohol Intake Frequency: 4 or More x per/Week Hx Substance Use: No Preferred Language: Martiniquais Communication Ability: Effective Visual Impairment: Limited Hearing Ability: Normal Customer Services Supervisor Required: No Beliefs That Will Affect Care: None marital status: Single Current Living Situation: Personal Care Facility Current Living Situation Comment: [facility] current occupational status: retired How many Children do You have: 2 Feels Safe at Home: Yes Safety Concerns: Feels Safe At This Time Childhood Exposure to Second-Hand Smoke: Yes Diet: regular caffeine: Yes Dental Care, Regularly: Yes Physical Activity Frequency: Does not Exercise Seatbelt Use: always Sunscreen Use: Yes Assistive Devices: Wheelchair Review of System 10-point review of systems reviewed and are negative except for as above. Physical Exam Physical Exam: General: Awake, alert, no acute distress HEENT: NC/AT, EOMI, mmm Neck: supple Lungs: respirations non-labored Heart: nl peripheral perfusion Abdomen: soft, NT/ND Back: no spinal or CVA tenderness Ext: no LE edema Skin: no rash Neuro: moving all extremities Results & Data Vital Signs (Past 12 Hours) Vital Signs Temp Pulse Pulse Resp BP Pulse Ox O2 Del Method 08/15/24 11:42 37.2 C 64 16 118/71 93 Room Air 08/15/24 09:01 60 08/15/24 08:46 CPAP 08/15/24 08:01 36.8 C 60 16 153/81 H 94 Room Air 08/15/24 03:11 36.5 C 62 18 116/68 91 Room Air Laboratory Results Labs reviewed. Diagnostic Findings Imaging reviewed.
[2024-08-15] MEDS: SULFAMETHOXAZOLE/TRIMETHOPRIM DS 800/160MG TAB PO SCH (13:26)
--- NOTE | 2024-08-15 14:49 | Hospitalist Progress Note ---
Date of Service August 15, 2024 Assessment & Plan (1) Acute UTI (urinary tract infection): (2) HFrEF (heart failure with reduced ejection fraction): (3) Venous stasis ulcers of both lower extremities: (4) Paroxysmal atrial fibrillation: (5) Transaminitis: (6) Syncope: Plan 78 year old male with recent ESBL Proteus [facility] return of dysuria and syncopal event associated with coughing #Syncope Occurred in the setting of coughing - vasovagal in setting of UTI Possible can continue all his usual medications as UTI is treated. Entresto was held on admission. Resumed #Acute UTI Recently diagnosed ESBL Proteus treated with Ertapenem. Suspect still growing the same but because he just came off ertapenem 1 week ago, will switch to meropenem pending repeat culture Most likely reason for failure is the Jardiance and should be discontinued permanently Alternatively prostatitis. PSA, ESR and CRP all elevated-urine culture growing ESBL Proteus again. Currently on ertapenem. Alternatively will assess patient for urinary retention with post void bladder scan No pain to suggest kidney stone Probiotics while on antibiotics Urine culture growing ESBL Proteus again. Currently on ertapenem. Infectious disease consulted CT abdomen pelvis showed no anatomic obstruction/abscess. It showed bilateral renal calculi without any ureteral calculi or hydronephrosis Consult urology to evaluate prostate concerns with elevated PSA although nonspecific If concerns for prostatitis, will need longer duration of antibiotics #Paroxysmal atrial fibrillation/flutter Discharged on amiodarone 400mg PO BID in May, this should have been reduced by now but not yet followed up with cardiology due to hospitalizations and [facility]. Admitting physician discussed with Dr Horne (cardiology) over the phone and reduced to amiodarone 200mg PO daily Continue anticoagulation with Xarelto #HFrEF - acute on chronic No significant pulmonary edema on CXR but missed some days of Bumex and he thinks his volume is slightly increased with mild shortness of breath and increased leg swelling Was given Bumex 1mg PO on admission and now back to his usual dosing of 0.5mg PO daily Discontinue Jardiance due to recurrent UTI Low Na diet I&Os Daily weights #Chronic venous ulcers Consult wound care Continue wound care outlined from last admission #LEONARD Not currently on CPAP but planning on repeating study with the [facility] to [facility] for [facility]AP CPAP HS while here if patient able to tolerate #Transaminitis Mild, appears to fluctuate with infection VTE Prophylaxis - Xarelto Diet - Low Na, heart healthy Disposition - admit to med/tele Admission and Anticipated Discharge Date Admission Date: August 12, 2024 Subjective Patient was seen and examined at 11:10 AM. Feeling much better overall. Burning urination has resolved. Frequency of urination has improved. Review of Systems Review of Systems: All systems reviewed & are unremarkable except as noted in Subjective Physical Exam Physical Exam: General: Awake, conversant Heart: S1, S2/regular rate and rhythm, no murmur rubs or gallops Lungs: Clear to auscultation bilaterally. Normal effort Abdomen: Soft/nontender/nondistended. No hepatosplenomegaly Extremities: No clubbing/cyanosis. 2+ bilateral edema with chronic venous stasis changes. Behavior: Appropriate, cooperative Results & Data Results & Data Vital Signs (Past 12 Hours) Vital Signs Temp Pulse Pulse Resp BP Pulse Ox O2 Del Method 08/15/24 11:42 37.2 C 64 16 118/71 93 Room Air 08/15/24 09:01 60 08/15/24 08:46 CPAP 08/15/24 08:01 36.8 C 60 16 153/81 H 94 Room Air 08/15/24 03:11 36.5 C 62 18 116/68 91 Room Air Laboratory Results Abnormal lab results 08/15/24 Range/Units 07:06 Carbon Dioxide 35 H (21-32) mmol/L Anion Gap 1 L (3-11) BUN 34 H (6-23) mg/dl BUN/Creatinine Ratio 30.1 H (10-20) Glucose 108 H (70-99(Fasting)) mg/dl Calcium 8.2 L (8.6-10.3) mg/dl Diagnostic Findings Abdomen/Pelvis CT 08/15/24 10:04 CT OF THE ABDOMEN AND PELVIS WITH CONTRAST CLINICAL HISTORY: Evaluate for recurrent UTI. COMPARISON STUDY: CT of the abdomen and pelvis January 21, 2024. TECHNIQUE: Following IV administration of 94 mL of Optiray, axial images of the abdomen and pelvis were obtained from the lung bases to the proximal femurs. Images were reviewed in the axial, sagittal, and coronal planes. IV contrast was administered without complication. Automated exposure control was utilized for the study. A dose lowering technique was utilized adhering to the principles of ALARA. CT DOSE: 1514.54 mGy.cm FINDINGS: No pneumatosis, free air or portal venous gas is present. There is a trace left pleural effusion. Subpleural opacity within the lower lungs represents atelectasis. A few subcentimeter hypodense hepatic lesions are unchanged. These are benign. There is no biliary or pancreatic ductal dilatation. There is evidence for a previous granulomatous process with calcified subcarinal and right hilar lymph nodes. There are calcified granulomas within the lower lungs and spleen. Adrenal glands are unremarkable. A cystic 2.6 cm lesion within the pancreatic neck is similar to prior CT. This favors a side branch IPMN. Water attenuation right renal lesions represent cysts. There is a 5 mm right renal calculus. There is a punctate left renal calculus. There are no ureteral calculi and there is no hydronephrosis. Images of the pelvis are degraded by streak artifact from a right hip arthroplasty. There is no evidence for a bowel obstruction. There is a moderate amount of stool within the colon and rectum. Is no lymphadenopathy. Postoperative findings consistent with sigmoid resection. There is colonic diverticulosis without evidence for acute diverticulitis. Ventral hernia repair with mesh is present. IMPRESSION: 1. No acute process within the abdomen or pelvis. 2. No bowel obstruction. No bowel wall thickening. Moderate amount of stool within the colon and rectum. 3. Small bilateral renal calculi. No ureteral calculi. No hydronephrosis. ACT 112: Negative or not required by law. Electronically signed by: Jong Nascimento M.D. 08/15/2024 11:18 AM PG Care Time/CCT Total # of Minutes Spent Total Time Spent with Patient: Total time spent is greater than 50% in coordination of care (as documented) at patient's floor/unit and/or counseling patient: Coding Level of Care Code 91348 SUB INP/OBS CARE 2/35MIN Diagnoses Acute UTI (urinary tract infection) N39.0 HFrEF (heart failure with reduced ejection fraction) I50.20 Venous stasis ulcers of both lower extremities I83.019; I83.029; L97.919; L97.929 Paroxysmal atrial fibrillation I48.0 Transaminitis R74.01 Syncope R55
--- NOTE | 2024-08-15 15:07 | Urology Consultation ---
Date of Consultation August 15, 2024 Assessment & Plan (1) Acute UTI (urinary tract infection): Plan 78-year-old male currently admitted for ESBL Proteus mirabilis UTI. Urology was consulted. No acute urologic intervention necessary Defer to ID for antibiotic selection and duration Agree with continuing Flomax Recommended I see patient in clinic for a cystoscopy. He does have very small stones but I doubt these are likely the nidus of his infection. That being said , we can discuss treatment in the future Message has been sent for outpatient follow-up. Urology to sign off. History of Present Illness Attending Physician: Bouchra Gasca MD History of Present Illness 78-year-old male currently admitted for ESBL Proteus mirabilis UTI. Urology was consulted. Patient reports dysuria before admission but reports that it is improving. He had a CT scan of the abdomen pelvis which I independently reviewed and shows punctate bilateral calculi but no hydronephrosis. Labs on the eighth showed white blood cell count of 6.8, creatinine of 1.40. Creatinine is 1.13 today. Urine culture grew out Proteus mirabilis. He is currently on Bactrim. He denies ever seeing a urologist before. Does report some dribbling but otherwise denies any significant urinary symptoms. He has required numerous antibiotics for previous orthopedic infections which may be why he has such resistant UTIs now. Last bladder scan was 117 cc Allergies Allergy/AdvReac Type Severity Reaction Status Date / Time cat dander Allergy Severe CAT Verified 08/12/24 13:55 HAIR---Swelling of Lip/Tongue/Throat Home Medications Medication Instructions Recorded Confirmed Type aspirin 81 mg tablet,delayed 81 mg PO QAM 08/07/22 08/12/24 History release (Adult Low Dose Aspirin) cyanocobalamin (vitamin B-12) 500 1,000 mcg (2 x 500 mcg) PO QAM #30 01/18/23 08/12/24 Rx mcg tablet tabs duloxetine 60 mg capsule,delayed 60 mg PO QAM #90 caps 10/29/23 08/12/24 Rx release rivaroxaban 20 mg tablet (Xarelto) 20 mg PO QPM 11/19/23 08/12/24 History sennosides 8.6 mg tablet 8.6 mg PO BID 12/15/23 08/12/24 History mirtazapine 30 mg tablet 30 mg PO HS 01/21/24 08/12/24 History nitroglycerin 0.4 mg sublingual 0.4 mg sublingual DIRECTED PRN 01/21/24 08/12/24 History tablet chest pin pravastatin 40 mg tablet 40 mg PO HS 01/21/24 08/12/24 History vitamin E 268 mg (400 unit) capsule 268 mg PO DAILY ##0 01/21/24 08/12/24 History acetaminophen 325 mg tablet 975 mg PO Q8H PRN mild pain,fever, 01/26/24 08/12/24 History or headache ferrous sulfate 325 mg (65 mg 325 mg PO DAILY #90 tabs 05/11/24 08/12/24 Rx iron) tablet sacubitril 24 mg-valsartan 26 mg 1 tab PO BID #180 tabs 05/11/24 08/12/24 Rx tablet (Entresto) gabapentin 600 mg tablet 600 mg PO TID neuropathy from 05/12/24 08/12/24 Rx severe PVD wounds 1 month #90 tabs bumetanide 0.5 mg tablet 0.5 mg PO DAILY 05/27/24 08/12/24 History sulfamethoxazole 800 1 tab PO DAILY 07/14/24 08/12/24 History mg-trimethoprim 160 mg tablet (Bactrim DS) collagenase clostridium histo. 250 1 applic topical DAILY #30 grams 07/22/24 08/12/24 Rx unit/gram topical ointment (Santyl) diclofenac sodium 1 % topical gel 2 g topical QID PRN Shoulder Pain 07/22/24 08/12/24 History esomeprazole magnesium 40 mg 40 mg PO HS 07/22/24 08/12/24 History capsule,delayed release (Nexium) glucosamine sulfate 500 mg tablet 500 mg PO QAM 07/22/24 08/12/24 History (Glucosamine) guaifenesin 100 mg/5 mL oral liquid 200 mg PO Q4H PRN Cough 07/22/24 08/12/24 History hydrocodone 5 mg-acetaminophen 325 1 tab PO Q6 PRN Moderate Pain 07/22/24 08/12/24 History mg tablet (Scale Score 5-6) melatonin 3 mg tablet 6 mg PO HS 07/22/24 08/12/24 History multivitamin 1 tab PO QAM 07/22/24 08/12/24 History omega-3 fatty acids 1,250 mg 1,250 mg PO QAM 07/22/24 08/12/24 History capsule tamsulosin 0.4 mg capsule 0.4 mg PO HS 07/22/24 08/12/24 History Lactobacillus acidophilus 1 tab PO DAILY 08/12/24 08/12/24 History amiodarone 200 mg tablet 400 mg PO BIDWMEAL 08/12/24 08/12/24 History cholecalciferol (vitamin D3) 10 20 mcg PO DAILY 08/12/24 08/12/24 History mcg (400 unit) tablet (Vitamin D3) empagliflozin 25 mg tablet 12.5 mg PO DAILY 08/12/24 08/12/24 History folic acid 1 mg tablet 1 mg PO DAILY 08/12/24 08/12/24 History metoprolol succinate 50 mg 12.5 mg PO QAM 08/12/24 08/12/24 History tablet,extended release 24 hr netarsudil 0.02 %-latanoprost 1 drp OPB 08/12/24 08/12/24 History 0.005 % eye drops (Jarosolatan) omeprazole 20 mg capsule,delayed 20 mg PO DAILY 08/12/24 08/12/24 History release thiamine HCl (vitamin B1) 100 mg 100 mg PO DAILY 08/12/24 08/12/24 History tablet vitamins B1 2.5 mg-B2 2.5 1 tab PO DAILY 08/12/24 08/12/24 History mg-niacin 5 mg-B12 100 mcg-protease tablet (B-Complex With B-12) Patient History Medical History Hyperkalemia Lethargy JEFFERY (acute kidney injury) Ischemic ulcer of left foot Ischemic ulcer of right foot Bilateral lower leg cellulitis PVD (peripheral vascular disease) Atrial flutter with rapid ventricular response Open wound of left lower extremity Sepsis secondary to UTI Fever Sepsis due to skin infection Sepsis Fall Infected hardware in right leg Chronic infection of right knee UTI (urinary tract infection) Severe sepsis Venous ulcer of right leg Venous stasis ulcers of both lower extremities Idiopathic polyneuropathy History of immunosuppressive therapy Heart failure with preserved ejection fraction GERD (gastroesophageal reflux disease) Sepsis Septicemia due to Streptococcus pneumoniae Respiratory failure with hypoxia Hypomagnesemia Pneumonia Benign essential hypertension Lumbar stenosis Hx of staphylococcal infection 03/2022, w/"bacterial infection" at the same, in the rt. knee, occurrred during atrial fibrillation episode. "when he woke up, he couldn't walk." Atrial fibrillation episode occurred in 03/2022, taken to [facility] in [place], admitted to ICU for 1-2 weeks (was not intubated, but wasn't "awake either"), then to cardiac unit, then to rehab at [facility]; f/u dr. guerra in [place]>will be starting to see a pole truck driver at [facility] 2nd week of 08/2022 Myocardial Infarction "a silent one, 2019" Sleep apnea no device Surgical History Status post revision of total replacement of right knee Hx of Achilles tendon repair rt. Hx of knee surgery rt. patellar tendon repair Hx of rotator cuff surgery bilateral Hx of total knee replacement lt. Hx of total hip arthroplasty rt. History of colostomy reversal History of bowel resection for diverticulitis; w/colostomy placement for 3-4 months Hx of hernia repair near former colostomy site History of esophagogastroduodenoscopy (EGD) Hx of colonoscopy Last Colonoscopy 08/14/22, repeat 3 years in 2025 Hx of bilateral cataract extraction History of heart artery stent ~3 years ago, x2 stents, done in [place]; f/u dr guerra, [place]>will be seeing new cardio at [facility] week of August 2022. History of cardiac cath ~3 years ago, SOB and "felt like throat was constricting", had "silent heart attack", x2 stents, done in [place] Family History Grandmother (Maternal) Diabetes Daughter Diabetes Father Suicide Hypertension Denies family history of Ovarian cancer Prostate cancer Myocardial infarction Breast cancer Lung cancer Colorectal cancer Stroke Social History Smoking Status: Never smoker Second Hand Exposure: No; Do You Dip or Chew Tobacco: No; Hx Alcohol Use: Yes Alcohol type: wine Alcohol Intake Frequency: 4 or More x per/Week Hx Substance Use: No Preferred Language: Georgian Communication Ability: Effective Visual Impairment: Limited Hearing Ability: Normal Operative Supervisor Required: No Beliefs That Will Affect Care: None marital status: Single Current Living Situation: Personal Care Facility Current Living Situation Comment: [facility] current occupational status: retired How many Children do You have: 2 Feels Safe at Home: Yes Safety Concerns: Feels Safe At This Time Childhood Exposure to Second-Hand Smoke: Yes Diet: regular caffeine: Yes Dental Care, Regularly: Yes Physical Activity Frequency: Does not Exercise Seatbelt Use: always Sunscreen Use: Yes Assistive Devices: Wheelchair Review of Systems Review of Systems: General: Alert and oriented, no acute distress HEENT: Normocephalic, mucous membranes moist Pulmonary: Nonlabored respirations Abdomen: Nondistended Extremities: Moves all 4 spontaneously Neuro: No gross deficits Skin: Warm, dry, no rashes noted Physical Exam Physical Exam: General: Alert and oriented, no acute distress HEENT: Normocephalic, mucous membranes moist Pulmonary: Nonlabored respirations Abdomen: Nondistended Extremities: Moves all 4 spontaneously Neuro: No gross deficits Skin: Warm, dry, no rashes noted Results & Data Vital Signs (Past 12 Hours) Vital Signs Temp Pulse Pulse Resp BP Pulse Ox O2 Del Method 08/15/24 11:42 37.2 C 64 16 118/71 93 Room Air 08/15/24 09:01 60 08/15/24 08:46 CPAP 08/15/24 08:01 36.8 C 60 16 153/81 H 94 Room Air 08/15/24 03:11 36.5 C 62 18 116/68 91 Room Air PG Care Time/CCT Total # of Minutes Spent Total Time Spent with Patient: Total time spent is greater than 50% in coordination of care (as documented) at patient's floor/unit and/or counseling patient: Coding Level of Care Code 36200 INT INP/OBS CARE 255MIN Diagnoses Acute UTI (urinary tract infection) N39.0
[2024-08-15] MEDS: VALSARTAN/SACUBITRIL 51/49 MG TAB PO SCH (21:15)
[2024-08-16 06:28] LABS: BUN Creatinine Ratio 28.3 (10-20); Calcium 8.7 mg/dl (8.6-10.3); Creatinine Clr Calc Pharmacy 67.5 ml/min; Potassium 4.8 mmol/L (3.5-5.1)
--- NOTE | 2024-08-16 14:15 | Hospitalist Progress Note ---
Date of Service August 16, 2024 Assessment & Plan (1) Acute UTI (urinary tract infection): (2) HFrEF (heart failure with reduced ejection fraction): (3) Venous stasis ulcers of both lower extremities: (4) Paroxysmal atrial fibrillation: (5) Transaminitis: (6) Syncope: Plan 78 year old male with recent ESBL Proteus [facility] after return of dysuria and syncopal event associated with coughing #Syncope Occurred in the setting of coughing - vasovagal in setting of UTI Possible can continue all his usual medications as UTI is treated. Entresto was held on admission. Resumed #Acute UTI Recently diagnosed ESBL Proteus treated with Ertapenem. Suspect still growing the same but because he just came off ertapenem 1 week ago, will switch to meropenem pending repeat culture Most likely reason for failure is the Jardiance and should be discontinued permanently Alternatively prostatitis. PSA, ESR and CRP all elevated-urine culture growing ESBL Proteus again. Currently on ertapenem. No pain to suggest kidney stone Probiotics while on antibiotics Urine culture growing ESBL Proteus again. Currently on ertapenem. Infectious disease consulted CT abdomen pelvis showed no anatomic obstruction/abscess. It showed bilateral renal calculi without any ureteral calculi or hydronephrosis Urology did not recommend any acute urological intervention but recommended an outpatient follow-up for cystoscopy Urology did not perform a prostate exam. A prostate exam may be needed to determine the duration of IV antibiotics Ordered PICC line as patient will need to be discharged on IV ertapenem #Paroxysmal atrial fibrillation/flutter Discharged on amiodarone 400mg PO BID in May, this should have been reduced by now but not yet followed up with cardiology due to hospitalizations and re- prescribed by the [facility]. Admitting physician discussed with Dr Horne (cardiology) over the phone and reduced to amiodarone 200mg PO daily Continue anticoagulation with Xarelto #HFrEF - acute on chronic No significant pulmonary edema on CXR but missed some days of Bumex and he thinks his volume is slightly increased with mild shortness of breath and increased leg swelling Was given Bumex 1mg PO on admission and now back to his usual dosing of 0.5mg PO daily Discontinue Jardiance due to recurrent UTI Low Na diet I&Os Daily weights #Chronic venous ulcers Consult wound care Continue wound care outlined from last admission #LEONARD Not currently on CPAP but planning on [facility] with [facility] to [facility] for [facility] CPAP HS while here if patient able to tolerate #Transaminitis Mild, appears to fluctuate with infection VTE Prophylaxis - Xarelto Diet - Low Na, heart healthy Disposition - admit to med/tele Admission and Anticipated Discharge Date Admission Date: August 12, 2024 Subjective Patient was seen and examined at 11:35 AM. Denied chest pain or shortness of breath. Says that his symptoms of burning urination and frequency of urination are much improved. Review of Systems Review of Systems: All systems reviewed & are unremarkable except as noted in Subjective Physical Exam Physical Exam: General: Awake, conversant Heart: S1, S2/regular rate and rhythm, no murmur rubs or gallops Lungs: Clear to auscultation bilaterally. Normal effort Abdomen: Soft/nontender/nondistended. No hepatosplenomegaly Extremities: No clubbing/cyanosis. 2+ bilateral edema with chronic venous stasis changes. Behavior: Appropriate, cooperative Results & Data Results & Data Vital Signs (Past 12 Hours) Vital Signs Temp Pulse Pulse Resp BP Pulse Ox O2 Del Method 08/16/24 11:34 37.1 C 70 20 124/68 92 Room Air 08/16/24 09:33 Room Air 08/16/24 09:17 60 08/16/24 07:55 36.6 C 68 16 174/91 H 93 Room Air 08/16/24 02:48 56 L 18 142/80 H 93 Room Air, CPAP 08/16/24 02:28 59 L 18 93 PG Care Time/CCT Total # of Minutes Spent Total Time Spent with Patient: Total time spent is greater than 50% in coordination of care (as documented) at patient's floor/unit and/or counseling patient: Coding Level of Care Code 31169 SUB INP/OBS CARE 2/35MIN Diagnoses Acute UTI (urinary tract infection) N39.0 HFrEF (heart failure with reduced ejection fraction) I50.20 Venous stasis ulcers of both lower extremities I83.019; I83.029; L97.919; L97.929 Paroxysmal atrial fibrillation I48.0 Transaminitis R74.01 Syncope R55
--- NOTE | 2024-08-16 14:29 | Infectious Disease Progress Nt ---
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 s/p DAIR + vanc x 6wks followed by doxy suppression (now on Bactrim as of 07/2024), right knee PJI 02/2024 at [facility] s/p I+D on 02/20/24 with cx + Enterobacter cloacae, on abx ending 04/06/24 (was dcd on cefepime, changed to ertapenem 03/18 due to JEFFERY) and doxy suppression for prior MRSA, afib, CAD, depression, chronic venous stasis, peripheral neuropathy, chronic low back pain 2/2 spinal stenosis, L knee TKA, bl rotator cuff surgery, R hip arthroplasty, admission 03/2024 with VRE faecium bacteremia (TTE without vegetations, right knee aspiration neg, PICC removed for ?line infection) s/p daptomycin x 2wks, admission 05/26/24 with bilateral LE cellulitis dcd on bactrim x 10d, admission 06/10-06/22 with bl foot cellulitis s/p dapto/erta x 14d, admission 07/22-07/27 with JEFFERY/UTI 2/2 ESBL P mirabilis s/p ertapenem until 08/03 who presented on 08/12 with dysuria x 2 days and syncope. On admission, he was afebrile, one BP 76/48 with improvement. WBC wnl, Cr 1.35. AST 60, ALT 74. ESR 29, CRP 2.42. Elevated troponin. PSA 4.054. UA > 50 WBC. RPP neg. CXR negative. He was started on meropenem>erta for UTI. UCx with ESBL Proteus. ID consulted 08/15. Improving symptoms. He has PSA that is elevated, however this is nonspecific and should not independently be used to establish the diagnosis of acute bacterial prostatitis. CT doesnt make a note of prostate and I am unable to get a prostate exam with telepresenter RN as that would be able to help identify prostatitis. He also has small bilateral renal calculi, which will be followed by urology. 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 - if he does have prostate tenderness, then duration is 2-4 weeks starting 08/12 with weekly CBC w diff and CMP with close outpatient follow up - continue outpatient Bactrim suppression Carmen Joy MD [facility], Division of Infectious Diseases [facility]: [phone] Admission and Anticipated Discharge Date Admission Date: August 12, 2024 Subjective Subsequent visit was provided via telemedicine using two-way real-time interactive telecommunication between the patient and the telemedicine provider. For the duration of the visit, the provider was performing the assessment from a different facility than the patient. This includesuse of bluetooth stethos cope forauscultationperformed by the telepresenter that the telemedicine provider can hear if described in the physical exam. Piercing Machine Operator contact information: Please call [facility] Connect Call Center . (Phone Number For Physician Use Only) After establishing a telemedicine visit, patient was: Patient was verified with two unique identifiers, Patient/authorized rep acknowledged consent and understanding and Gave permission to continue telehealth session Time Spent with Patient: Subsequent => 35 min Patient reports resolution of dysuria. No other complaints. Physical Exam Physical Exam: General: Awake, alert, no acute distress HEENT: NC/AT, EOMI, mmm Neck: supple Lungs: respirations non-labored Heart: nl peripheral perfusion Abdomen: soft, NT/ND Neuro: moving all extremities Results & Data Vital Signs (Past 12 Hours) Vital Signs Temp Pulse Pulse Resp BP Pulse Ox O2 Del Method 08/16/24 11:34 37.1 C 70 20 124/68 92 Room Air 08/16/24 09:33 Room Air 08/16/24 09:17 60 08/16/24 07:55 36.6 C 68 16 174/91 H 93 Room Air 08/16/24 02:48 56 L 18 142/80 H 93 Room Air, CPAP 08/16/24 02:28 59 L 18 93
[2024-08-17 06:25] LABS: BUN Creatinine Ratio 28.1 (10-20); Calcium 8.3 mg/dl (8.6-10.3); Creatinine Clr Calc Pharmacy 55.9 ml/min; Potassium 4.6 mmol/L (3.5-5.1)
--- NOTE | 2024-08-17 11:39 | Infectious Disease Progress Nt ---
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/2024 at [place] s/p I+D on 02/20/24 with cx + Enterobacter cloacae, on abx ending 04/06/24 (was dcd on cefepime, changed to ertapenem 03/18 due to JEFFERY) and doxy suppression for prior MRSA, afib, CAD, depression, chronic venous stasis, peripheral neuropathy, chronic low back pain 2/2 spinal stenosis, L knee TKA, bl rotator cuff surgery, R hip arthroplasty, admission 03/2024 with VRE faecium bacteremia (TTE without vegetations, right knee aspiration neg, PICC removed for ?line infection) s/p daptomycin x 2wks, admission 05/26/24 with bilateral LE cellulitis dcd on bactrim x 10d, admission 06/10-06/22 with bl foot cellulitis s/p dapto/erta x 14d, admission 07/22-07/27 with JEFFERY/UTI 2/2 ESBL P mirabilis s/p ertapenem until 08/03 who presented on 08/12 with dysuria x 2 days and syncope. On admission, he was afebrile, one BP 76/48 with improvement. WBC wnl, Cr 1.35. AST 60, ALT 74. ESR 29, CRP 2.42. Elevated troponin. PSA 4.054. UA > 50 WBC. RPP neg. CXR negative. He was started on meropenem>erta for UTI. UCx with ESBL Proteus. ID consulted 08/15. CTAP w IV contrast showed small bl renal calculi, no hydronephrosis. Prostate exam by hospitalist was benign. Improving symptoms. Unlikely prostatitis given negative exam. He has PSA that is elevated, however this is nonspecific and should not independently be used to establish the diagnosis of acute bacterial prostatitis. He also has small bilateral renal calculi, which will be followed by urology. 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 Please do not hesitate to reconsult the Infectious Diseases service as needed. Carmen Joy MD [facility], Division of Infectious Diseases [facility]Connect: [phone] Admission and Anticipated Discharge Date Admission Date: August 12, 2024 Subjective This patient recommendation is based on a telemedicine consult request which was completed asynchronously through chart review and information provided by the primary physician. The patient was not seen or examined today. The evaluation is consultative in nature and all patient care and treatment decisions can either be accepted or rejected by the patient's primary hospital-based treating physician using their own independent medical judgment for their patient. Time Spent Reviewing Chart: 31+ minutes Prostate exam was done, noted to be benign. Results & Data Vital Signs (Past 12 Hours) Vital Signs Temp Pulse Pulse Resp BP BP Pulse Ox 08/17/24 08:12 08/17/24 07:39 35.8 C L 56 L 20 125/76 93 08/17/24 07:13 57 L 08/17/24 03:07 18 08/17/24 02:40 61 18 105/69 94 O2 Del Method 08/17/24 08:12 Room Air 08/17/24 07:39 CPAP 08/17/24 07:13 08/17/24 03:07 08/17/24 02:40 Room Air, CPAP Laboratory Results Labs reviewed.
--- NOTE | 2024-08-17 19:54 | Hospitalist Progress Note ---
Date of Service August 17, 2024 Assessment & Plan (1) Acute UTI (urinary tract infection): (2) HFrEF (heart failure with reduced ejection fraction): (3) Venous stasis ulcers of both lower extremities: (4) Paroxysmal atrial fibrillation: (5) Transaminitis: (6) Syncope: Plan 78 year old male with recent ESBL Proteus [facility] of dysuria and syncopal event associated with coughing #Syncope Occurred in the setting of coughing - vasovagal in setting of UTI Possible can continue all his usual medications as UTI is treated. Entresto was held on admission. Resumed #Acute UTI Urine culture with proteus mirabilis ESBL Recently completed treatment for proteus mirabilis ESBL UTI. Most likely reason for recurrence/failure is the Jardiance and should be discontinued permanently CT A/P showed no anatomic obstruction/abscess. It showed bilateral renal calculi without any ureteral calculi or hydronephrosis Urology did not recommend any acute urological intervention but recommended an outpatient follow-up for cystoscopy Continue Ertapenem 1,000 mg IV Q24H PICC line placed 08/16 with anticipation of IV antibiotic on discharge Infectious disease consulted Given benign prostate exam, recommend 7-10 days of treatment from 08/12 (EOT 08/19-08/22) Anticipate patient can complete course of IV antibiotics inpatient and then be discharged home to his [facility] #Paroxysmal atrial fibrillation/flutter Discharged on amiodarone 400mg PO BID in May, this should have been reduced by now but not yet followed up with cardiology due to hospitalizations and re- prescribed by the [place]. Admitting physician discussed with Dr Horne (cardiology) over the phone and reduced to/continued on amiodarone 200mg PO daily Continue anticoagulation with Xarelto #HFrEF - acute on chronic Continue Bumex 0.5mg PO daily Discontinue Jardiance due to recurrent UTI Low Na diet, I&Os, Daily weights #Chronic venous ulcers Wound care following #LEONARD Not currently on CPAP but planning on [facility] with the [facility] to [facility]AP CPAP HS while here if patient able to tolerate #Transaminitis Mild, appears to fluctuate with infection VTE Prophylaxis - Xarelto Disposition - anticipate discharge on 08/19 after completion of IV antibiotics Discussed case with ID Discussed discharge planning with case management Admission and Anticipated Discharge Date Admission Date: August 12, 2024 Supervising Physician Co-Signing Physician Notes chart reviewed, case d/w S Donnie GARCIA, as above. Subjective Patient seen and evaluated at bedside. He reports feeling well and states his desire to go home. He denies any urinary symptoms, N/V/D, headache, SOB, chest pain. We discussed the need for a prostate exam to determine length of antibiotic treatment; he was understanding and agreeable. Prostate exam benign. Discussed that this likely means his antibiotics can be completed on 08/19 then, but have to confirm with ID first. No additional complaints or concerns at this time. Physical Exam Physical Exam: General: No acute distress, nondiaphoretic, well-developed, well-nourished. Cardiac: Regular rate and rhythm without murmurs gallops or rubs. Pulm: Clear to auscultation bilaterally without wheezes, rales or rhonchi. Normal respiratory effort. 93% on room air. Abdominal: Soft, nontender, nondistended. Bowel sounds present. Rectal: Prostate exam benign. No tenderness or pain on palpation of prostate. Neuro: A&O x3. No focal neurological deficits. Extremities: Bilateral lower extremities with multiple ulcerations and superficial wounds in various stages of healing, no signs of acute infection. Chronic venous stasis changes bilaterally. Results & Data Results & Data Vital Signs (Past 12 Hours) Vital Signs Pulse O2 Del Method 08/17/24 14:40 62 08/17/24 08:12 Room Air Laboratory Results Reviewed [facility] PG Care Time/CCT Total # of Minutes Spent Total Time Spent with Patient: Total time spent is greater than 50% in coordination of care (as documented) at patient's floor/unit and/or counseling patient: Coding Level of Care Code 50597 SUB INP/OBS CARE 3/50MIN Diagnoses Acute UTI (urinary tract infection) N39.0 HFrEF (heart failure with reduced ejection fraction) I50.20 Venous stasis ulcers of both lower extremities I83.019; I83.029; L97.919; L97.929 Paroxysmal atrial fibrillation I48.0 Transaminitis R74.01 Syncope R55
[2024-08-18 05:33] LABS: BUN Creatinine Ratio 31.7 (10-20); Calcium 8.7 mg/dl (8.6-10.3); Creatinine Clr Calc Pharmacy 62.8 ml/min; Potassium 4.5 mmol/L (3.5-5.1)
--- NOTE | 2024-08-18 09:47 | Hospitalist Progress Note ---
Date of Service August 18, 2024 Assessment & Plan (1) Acute UTI (urinary tract infection): (2) HFrEF (heart failure with reduced ejection fraction): (3) Venous stasis ulcers of both lower extremities: (4) Paroxysmal atrial fibrillation: (5) Transaminitis: (6) Syncope: Plan 78 year old male with recent ESBL Proteus [facility] return of dysuria and syncopal event associated with coughing #Syncope Occurred in the setting of coughing - vasovagal in setting of UTI Possible can continue all his usual medications as UTI is treated Hypotensive 08/18 asymptomatic. Placed Entresto on hold. Suspect secondary to low activity, low po intake, and medication side effects Entresto placed on HOLD. If he becomes symptomatic or hypotension worsens, recommend 500 cc bolus NSS #Acute UTI Urine culture with proteus mirabilis ESBL Recently completed treatment for proteus mirabilis ESBL UTI. Most likely reason for recurrence/failure is the Jardiance and should be discontinued permanently CT A/P showed no anatomic obstruction/abscess. It showed bilateral renal calculi without any ureteral calculi or hydronephrosis Urology did not recommend any acute urological intervention but recommended an outpatient follow-up for cystoscopy Continue Ertapenem 1,000 mg IV Q24H PICC line placed 08/16 with anticipation of IV antibiotic on discharge - will need to be removed prior to discharge Infectious disease consulted Given benign prostate exam, recommend 7-10 days of treatment from 08/12. EOT 08/19 Continue outpatient Bactrim suppression Discussed with pharmacy and will time IV antibiotic dose @1100 today and @0900 tomorrow so patient can be discharged in the morning as he is very eager to return home #Paroxysmal atrial fibrillation/flutter Discharged on amiodarone 400mg PO BID in May, this should have been reduced by now but not yet followed up with cardiology due to hospitalizations and [facility]. Admitting physician discussed with Dr Horne (cardiology) over the phone and reduced to/continued on amiodarone 200mg PO daily Continue anticoagulation with Xarelto #HFrEF - acute on chronic Continue Bumex 0.5mg PO daily Discontinue Jardiance due to recurrent UTI Low Na diet, I&Os, Daily weights #Chronic venous ulcers Wound care following #LEONARD Not currently on CPAP but planning on [facility] with [facility] to [facility] for CPAP CPAP HS while here if patient able to tolerate #Transaminitis Mild, appears to fluctuate with infection VTE Prophylaxis - Xarelto Disposition - anticipate discharge on 08/19 after completion of IV antibiotics Discussed antibiotics with pharmacy and adjusted timing of doses Discussed discharge planning with case management Held Entresto Admission and Anticipated Discharge Date Admission Date: August 12, 2024 Supervising Physician Co-Signing Physician Notes chart reviewed, case d/w S Donnie GARCIA, as above. Subjective Patient seen and evaluated at bedside. He is very eager to return home. He denies any acute complaints or concerns. We discussed the plan of completing IV antibiotics tomorrow, 08/19. He inquired if he could go home today and complete his final dose at home tomorrow. Unfortunately, Angie cannot do an in- person teaching until tomorrow afternoon at the earliest. Discussed antibiotic timing with pharmacy and will dose his Ertapenem at 1100 today and 0900 tomorrow so he can be discharged tomorrow morning. Bill is agreeable to this plan. Physical Exam Physical Exam: General: No acute distress, nondiaphoretic, well-developed, well-nourished. Cardiac: Regular rate and rhythm without murmurs gallops or rubs. Pulm: Clear to auscultation bilaterally without wheezes, rales or rhonchi. Normal respiratory effort. 94% on room air. Neuro: A&O x3. No focal neurological deficits. Extremities: Bilateral lower extremities with multiple ulcerations and superficial wounds in various stages of healing, no signs of acute infection. Chronic venous stasis changes bilaterally. Results & Data Results & Data Vital Signs (Past 12 Hours) Vital Signs Temp Pulse Pulse Resp BP Pulse Ox O2 Del Method 08/18/24 09:04 Room Air 08/18/24 08:04 64 08/18/24 07:10 98.1 F 54 L 17 127/76 94 Room Air 08/18/24 07:09 54 L 08/18/24 04:04 56 L 14 93 08/18/24 03:53 98.1 F 56 L 14 119/77 93 BiPAP 08/17/24 21:54 60 FiO2 08/18/24 09:04 08/18/24 08:04 08/18/24 07:10 08/18/24 07:09 08/18/24 04:04 21 03/13/25 03:53 08/17/24 21:54 Laboratory Results Reviewed [facility] PG Care Time/CCT Total # of Minutes Spent Total Time Spent with Patient: Total time spent is greater than 50% in coordination of care (as documented) at patient's floor/unit and/or counseling patient: Coding Level of Care Code 66668 SUB INP/OBS CARE 3/50MIN Diagnoses Acute UTI (urinary tract infection) N39.0 HFrEF (heart failure with reduced ejection fraction) I50.20 Venous stasis ulcers of both lower extremities I83.019; I83.029; L97.919; L97.929 Paroxysmal atrial fibrillation I48.0 Transaminitis R74.01 Syncope R55
[2024-08-18] MEDS: ERTAPENEM 1000MG 1,000 MG/10 ML SYR IV ONE (11:40)
[2024-08-19 03:27] VITALS: O2SAT 95
[2024-08-19 07:29] VITALS: RESP 18; TEMP 98.2
[2024-08-19] MEDS: ERTAPENEM 1000MG 1,000 MG/10 ML SYR IV ONE (08:02)
[2024-08-19 08:39] VITALS: BP 84/57; PULSE 65
[2024-08-19 09:18] LABS: BUN Creatinine Ratio 34.8 (10-20); Calcium 4.7 mg/dl (8.6-10.3); Creatinine Clr Calc Pharmacy 83.4 ml/min; Potassium 2.8 mmol/L (3.5-5.1)
[2024-08-19 11:06] LABS: BUN Creatinine Ratio 27.1 (10-20); Creatinine Clr Calc Pharmacy 42.4 ml/min; Potassium 4.1 mmol/L (3.5-5.1)
--- NOTE | 2024-08-19 17:16 | Discharge Summary ---
Discharge Summary Date of Service August 19, 2024 Principal Dx & Hospital Course #1 = Principal Diagnosis (1) Acute UTI (urinary tract infection): (2) HFrEF (heart failure with reduced ejection fraction): (3) Venous stasis ulcers of both lower extremities: (4) Paroxysmal atrial fibrillation: (5) Transaminitis: (6) Syncope: Plan 78 year old male with recent ESBL Proteus [facility] return of dysuria and syncopal event associated with coughing #Syncope Occurred in the setting of coughing - vasovagal in setting of UTI Possible can continue all his usual medications as UTI is treated Hypotensive 08/18 asymptomatic. Suspect secondary to low activity, low po intake, and medication side effects. BP now normotensive #Acute UTI Urine culture with proteus mirabilis ESBL. ID consulted. Completed 7 days of treatment with IV Ertapenem 1 g q24h. Continue outpatient Bactrim suppression Recently completed treatment for proteus mirabilis ESBL UTI. Most likely reason for recurrence/failure is the Jardiance CT A/P showed no anatomic obstruction/abscess. It showed bilateral renal calculi without any ureteral calculi or hydronephrosis Urology did not recommend any acute urological intervention but recommended an outpatient follow-up for cystoscopy #JEFFERY BMP on day of discharge revealed JEFFERY with Cr 1.81 Given script for outpatient BMP recheck on Tuesday 08/22 - results copied to PCP Hold Bumex and Entresto until 08/23 after BMP recheck Encouraged to drink 60-80 oz daily #Paroxysmal atrial fibrillation/flutter Discharged on amiodarone 400mg PO BID in May, this should have been reduced by now but not yet followed up with cardiology due to hospitalizations and re- prescribed by the [place]. Admitting physician discussed with Dr Horne (cardiology) over the phone and reduced to/continued on amiodarone 200mg PO daily Continue anticoagulation with Xarelto #HFrEF - acute on chronic On Bumex 0.5mg PO daily Discontinue Jardiance due to recurrent UTI Low Na diet, I&Os, Daily weights #Chronic venous ulcers Continue routine wound care and follow-up with wound care clinic outpatient as scheduled #LEONARD Not currently on CPAP but planning on [facility] with the [facility] to [facility] for [facility] Tolerated CPAP while inpatient #Transaminitis Mild, appears to fluctuate with infection VTE Prophylaxis - Xarelto Dispo: discharged [facility] to [facility] on 08/19 Notes For Next Care Provider Recommend outpatient follow-up with urology for cystoscopy Recommend BMP outpatient on 08/22 to monitor JEFFERY Medication Changes From Visit Jardiance discontinued due to recurrence of ESBL UTI Amiodarone decreased to 200 mg once daily Held Bumex and Entresto due to JEFFERY until repeat BMP on 08/22 Admission HPI Per Admitting Provider Lowell ElvinVikki Palacio is an 78 year old male who presents to the ER with dysuria and a syncopal episode while at the [place] office earlier today. He was recently treated with ESBL Proteus on ertapenem and discharged from [facility] on July 27, 2024. He finished the course of Ertapenem and restarted his Jardiance following this. He started noticing dysuria over the last 2 days and was following up with the [place] office as a routine appointment today. While in the office he was leaning forward and briefly lost consciousness while coughing. He currently denies any dizziness or lightheadedness. This has happened previously. With regards to his heart failure he has been a little more short of breath and leg swelling mildly worse than usual. He has not been taking his bumetanide ever day as he doesn't like how much it makes him urinate. Discharge Exam General: No acute distress, nondiaphoretic, well-developed, well-nourished. Cardiac: Regular rate and rhythm without murmurs gallops or rubs. Pulm: Clear to auscultation bilaterally without wheezes, rales or rhonchi. Normal respiratory effort. 95% on room air. Abdominal: Soft, nontender, nondistended. Bowel sounds present. Neuro: A&O x3. No focal neurological deficits. Extremities: Bilateral lower extremities with multiple ulcerations and superficial wounds in various stages of healing, no signs of acute infection. Chronic venous stasis changes bilaterally. Discharge Plan Discharge Items Patient Disposition: Personal Assisted Reason For Visit: SYNCOPE, UTI Discharge Diagnosis: Syncope, ESBL UTI Activity: Resume your previous activity Non-emergency contact: Primary Care Provider and Urologist Call non-emergency contact if: you have any medication questions and your symptoms worsen Follow-up/Referrals: Marcelo Andre MD [Physician] - (Follow-up for outpatient cystoscopy. Message sent to office for follow-up per urology.) Danny Soliman DO [Primary Care Provider] - 08/26/24 11:30 am () Diet: Heart Healthy and Low Sodium (2gm) Ambulatory Orders: Basic Metabolic Panel (Routine) Timeframe: [id number] Location: Determined by Patient Ordered By: Annia Bernstein Attending Provider Instructions: Qasimky, You were admitted to the hospital after a syncopal episode. This was likely a vasovagal response in the setting of an acute UTI. Your urine culture revealed a proteus mirabilis ESBL UTI (same as prior). The most likely reason for its recurrence is the Jardiance medication you were taking, which you should stop taking permanently. You were treated with IV antibiotics and completed 7 days worth of IV antibiotic treatment in the hospital. Additionally, your amiodarone dose was reduced per cardiology's recommendation. Upon discharge from the hospital: * STOP Jardiance (empagliflozin). This increases your risk of UTIs. * HOLD Entresto and Bumex until after your BMP recheck on Thursday, 08/22. Also, recommend drinking 60-80 oz daily. This is to resolve your JEFFERY. * Recheck BMP lab outpatient on Thursday, 08/22. * Reduce amiodarone to 200 mg daily. A new prescription has been sent to your [facility]. * Continue your Bactrim suppressive therapy. * Continue your other home medications as prescribed. * Recommend outpatient follow-up with urology for a cystoscopy. * Recommend outpatient sleep study to qualify for CPAP. * Recommend PCP follow-up in 1-2 weeks. It was a pleasure taking care of you while you were in the hospital! Pending Studies at Discharge: No Stand-Alone Forms: My Assurz, Smoking Cessation Skilled Items Patient informed of condition?: Yes DNR: No Discharge Level of Care: Other Communicable Disease: No Discharge Prognosis: Stable Lines: None Urinary Catheter: No Medications and DC Order Prescriptions: New amiodarone 200 mg Tablet 200 mg PO QAM Qty: 30 0RF Continued sulfamethoxazole-trimethoprim [Bactrim DS] 800-160 mg tablet 1 tab PO DAILY Patient Comments: As of today pt hasn't started this med but it was ordered and to be delivered and when he receives it he will stop Doxycyline and start Bactrim Santyl 250 unit/gram ointment 1 applic topical DAILY Qty: 30 0RF duloxetine 60 mg capsule,delayed release(DR/EC) 60 mg PO QAM Qty: 90 3RF ferrous sulfate 325 mg (65 mg iron) tablet 325 mg PO DAILY Qty: 90 3RF Rx Instructions: Listed as on hold per [facility] Pharmacy med list gabapentin 600 mg tablet 600 mg PO TID 30 Days Qty: 90 3RF Xarelto 20 mg tablet 20 mg PO QPM Rx Instructions: must administer with evening meal start 3 days after last eliquis dose. aspirin [Adult Low Dose Aspirin] 81 mg tablet,delayed release (DR/EC) 81 mg PO QAM Hold Instructions: Resume on 02/23/23. until PCP/surgery followup cyanocobalamin (vitamin B-12) 500 mcg Tablet 1,000 mcg PO QAM Qty: 30 0RF nitroglycerin 0.4 mg Tablet, Sublingual 0.4 mg sublingual DIRECTED PRN (Reason: chest pin) vitamin E 268 mg (400 unit) Capsule 268 mg PO DAILY Qty: 0 pravastatin 40 mg tablet 40 mg PO HS Hold Instructions: Resume on 02/09/24. Hold while on daptomycin Rx Instructions: TAKE 1 TABLET BY MOUTH ONCE DAILY mirtazapine 30 mg tablet 30 mg PO HS Rx Instructions: Caregiver says pt still taking, last filled 05/19/24 x30 day supply w/ [facility] Pharmacy acetaminophen 325 mg tablet 975 mg PO Q8H PRN (Reason: mild pain,fever, or headache) tamsulosin 0.4 mg capsule 0.4 mg PO HS multivitamin Tablet 1 tab PO QAM melatonin 3 mg Tablet 6 mg PO HS glucosamine sulfate [Glucosamine] 500 mg Tablet 500 mg PO QAM Rx Instructions: administer with a meal diclofenac sodium 1 % Gel 2 g topical QID PRN (Reason: Shoulder Pain) Rx Instructions: APPLY 1 DOSE 4 TIMES A DAY TO BILATERAL SHOULDERS FOR PAIN hydrocodone-acetaminophen 5-325 mg tablet 1 tab PO Q6 PRN (Reason: Moderate Pain (Scale Score 5-6)) guaifenesin 100 mg/5 mL Liquid 200 mg PO Q4H PRN (Reason: Cough) esomeprazole magnesium [Nexium] 40 mg Capsule,Delayed Release(Dr/Ec) 40 mg PO HS omega-3 fatty acids 1,250 mg Capsule 1,250 mg PO QAM Rocklatan 0.02-0.005 % drops 1 drp OPB HS metoprolol succinate 50 mg Tablet Extended Release 24 Hr 12.5 mg PO QAM thiamine HCl (vitamin B1) 100 mg Tablet 100 mg PO DAILY omeprazole 20 mg Capsule,Delayed Release(Dr/Ec) 20 mg PO DAILY folic acid 1 mg Tablet 1 mg PO DAILY cholecalciferol (vitamin D3) [Vitamin D3] 10 mcg (400 unit) Tablet 20 mcg PO DAILY Lactobacillus acidophilus Tablet,Chewable 1 tab PO DAILY B-Complex With B-12 2.5 mg-2.5 mg- 5 mg-100 mcg Tablet 1 tab PO DAILY sennosides 8.6 mg Tablet 8.6 mg PO BID Held Entresto 24-26 mg tablet 1 tab PO BID Qty: 180 3RF Hold Instructions: Resume on 08/23/24. bumetanide 0.5 mg tablet 0.5 mg PO DAILY MDD 1mg Hold Instructions: Resume on 08/23/24. Rx Instructions: one tablet daily, with 1 additional tablet daily prn for weight gain or shortness of breath Discontinued amiodarone 200 mg tablet 400 mg PO BIDWMEAL empagliflozin 25 mg Tablet 12.5 mg PO DAILY Discharge Orders: Discharge Order (Routine); Ordered 08/19/24 Ordered By: Annia Fields Admission Data Admit Date/Time: 08/12/24 15:17 Attending Provider: Rakesh Herrera Admit Provider: Shaheen Amor Primary Care Provider: Danny Soliman Other Providers: Shaheen Amor; [facility]; [facility]; [facility] Other Interventions: Discharge Summary Assessment (RN) Last Done: 08/19/24 08:38 Hospital Stay Data Consultations 08/12/24 13:55 ED Decision to Admit Stat 08/14/24 08:51 Consult Infectious Diseases Routine 08/15/24 10:05 Consult Urology Routine Diagnostic Imagining Performed 08/15/24 10:04 CT Abd and Pelvis [CT abd pelvis IV con only] Routine Pending Results Patient Have Any Pending Studies at Discharge: No Discharge Instructions Given to Patient (Per Discharging Provider) Bill, You were admitted to the hospital after a syncopal episode. This was likely a vasovagal response in the setting of an acute UTI. Your urine culture revealed a proteus mirabilis ESBL UTI (same as prior). The most likely reason for its recurrence is the Jardiance medication you were taking, which you should stop taking permanently. You were treated with IV antibiotics and completed 7 days worth of IV antibiotic treatment in the hospital. Additionally, your amiodarone dose was reduced per cardiology's recommendation. Upon discharge from the hospital: * STOP Jardiance (empagliflozin). This increases your risk of UTIs. * HOLD Entresto and Bumex until after your BMP recheck on Thursday, 08/22. Also, recommend drinking 60-80 oz daily. This is to resolve your JEFFERY. * Recheck BMP lab outpatient on Thursday, 08/22. * Reduce amiodarone to 200 mg daily. A new prescription has been sent to your [facility]. * Continue your Bactrim suppressive therapy. * Continue your other home medications as prescribed. * Recommend outpatient follow-up with urology for a cystoscopy. * Recommend outpatient sleep study to qualify for CPAP. * Recommend PCP follow-up in 1-2 weeks. It was a pleasure taking care of you while you were in the hospital! Supervising Physician Co-Signing Physician Notes I personally examined the patient and verified all lubin points of history and exam, discussed case, and agree with decision making with Marni HORN feeling better wants to leave vitals noted nad heent nc at mmm breathing unlabored no accessory muscles good effort skin no rashes no pallor or icterus UTI - now treated. safe for dc JEFFERY - hold diuretic, entresto till thursday - repeat BMP then. given how well he feels and how anxious he is to leave - reasonable for dc and close f/u Total Time Total Time Spent Total Time Spent (In Minutes): Greater than 30 minutes spent completing this discharge process including direct patient care, medication reconciliation, documentation, review of labs and images, and coordination of care. Coding Level of Care Code 76476 INP/OBS DISCH >30 MIN Diagnoses Acute UTI (urinary tract infection) N39.0 HFrEF (heart failure with reduced ejection fraction) I50.20 Venous stasis ulcers of both lower extremities I83.019; I83.029; L97.919; L97.929 Paroxysmal atrial fibrillation I48.0 Transaminitis R74.01 Syncope R55
== END 2024-08-19 12:12 | disposition home or self-care (01) | DRG 689 ==
LOC: ED 10:27 → 2W 15:17 → SUATTDRO 15:17 → 2W 16:14

== ENCOUNTER 2024-10-06 16:45 | Inpatient (IN) ==
--- NOTE | 2024-10-06 17:16 | Emergency Department Note ---
Impression & Plan Cough, Fatigue, Bronchitis due to human metapneumovirus (hMPV), Elevated brain natriuretic peptide (BNP) level ED Provider Note ED Provider Note NAME: RAFY CHICAS AGE:78 SEX: Male : 1945 ARRIVES VIA: EMS INFORMANT: Patient ED PROVIDER(s): Lisa Kohli DO CHIEF COMPLAINT: Worsening cough, difficulty sleeping, fatigue HPI: This is an 78-year-old male presents emergency department due to concern for worsening cough. Patient states cough began while he was in rehab recently following a recent hospitalization at [facility]. Patient states he just got home from rehab last Thursday. He states the cough has been worsening since returning home leading to difficulty sleeping as the cough wakes him up. He states he has had increased fatigue and weakness as a result of not sleeping. He states today he coughed so hard he vomited. He states the cough is not productive. Patient denies any history of asthma or COPD, states he was never smoker. No history of recurrent bronchitis or pneumonia. Patient states he does take a blood thinner daily, and is still undergoing daily IV antibiotics through a PICC line for an infection that he states spread to his bloodstream. PAST MEDICAL HISTORY:See Below PAST SURGICAL HISTORY:See Below FAMILY HISTORY:See Below SOCIAL HISTORY:See Below HOME MEDICATIONS:See Below ALLERGIES:See Below VITALS:See Below PHYSICAL EXAMINATION: GENERAL: alert, well appearing, well nourished, no distress, non-toxic EYE EXAM: normal conjunctiva, PERRL and EOM's grossly intact OROPHARYNX: no exudate, no erythema, lips, buccal mucosa, and tongue normal and mucous membranes are moist NECK: supple, no nuchal rigidity, no adenopathy, non-tender LUNGS: Clear to auscultation. Normal chest wall mechanics, no w/r/r HEART: no murmurs, S1 normal and S2 normal ABDOMEN: abdomen soft, non-tender, normo-active bowel sounds, no masses, no rebound or guarding. BACK: Back is symmetrical on inspection and there is no deformity, no midline tenderness, no CVA tenderness. SKIN: no rashes, petechiae, orbruising UPPER EXTREMITIES: upper extremities are grossly normal. FROM, nml pulses b/l. LOWER EXTREMITIES: No pitting edema. FROM, nml pulses b/l. NEURO EXAM: Normal sensorium, cranial nerves II-XII grossly intact, normal speech, no facial droop,nogross weakness of arms, no gross weakness of legs. Gross sensation intact. No ataxia. Vital Signs: reviewed and remarkable Differential Diagnosis: sepsis, pna, PE, URI, bronchitis, PE, jeffery, CHF, electrolyte abnormalty, aspiration, as well as others were considered MEDICAL DECISION MAKING: This is an 78 yo male who presents with concern for worsening cough for more than 1 week, now to the point of weakness and fatigue. He was afebrile and VS stable. Labs drawn and sent, IV established, EKG and CXR performed and interpreted at bedside, and patient placed on telemetry. Nasal swab obtained and sent additionally for viral panel. Patient given tesslone perle without improvement. Then given robitussin additionally and a duoneb tx. Labs with elevated BNP and mild troponin elevation however he has had this previously and does have hx of CHF. He had not taken his bumex today so this was ordered additionally. Viral panel positive for human metapneumovirus, likely the cause of his cough. I suspect this was contracted while in rehab. No pna noted on cxr. Patient had no improvement of symptoms after several meds and was uncomfortable going home due to weakness/fatigue from ongoing coughing. I do not suspect worsening bacteremia/sepsis. Given patient's use of xarelto, I think PE unlikely. I do not suspect pericarditis/myocarditis, or pericardial effusion. Case discussed with the hospitalist team for additional evaluation and mgmt. Consultation(s): Discussed with Ghada Agarwal hospitalist team, for additional evaluation and management. ER Treatment Provided: See below Diagnostics Interpreted By Me: -ECG: Normal sinus at 81, left axis, normal intervals, nonspecific ST/T wave changes -Cardiac Monitoring: An order was placed for continuous cardiac monitoring. The monitor shows a rate of 80 with normal sinus rhythm. -Laboratory studies: As stated above and show below. -Imaging studies: X-ray Chest: A single view study of the chest was reviewed and was negative for cardiomegaly, focal infiltrate, effusion, pulmonary edema, or wide mediastinum. Triage Nursing Note Reviewed Prior/Outside Records Reviewed - prior DC summary reviewed Past Med/Surg History Problem List (Updated 10/08/24 @ 21:56 by Lisa S. Pheasant, DO) Elevated brain natriuretic peptide (BNP) level (Acute) Bronchitis due to human metapneumovirus (hMPV) (Acute) Infection due to human metapneumovirus (hMPV) Fatigue (Acute) Cough (Acute) Skin tear of left hand without complication (Acute) Idiopathic peripheral neuropathy Spinal stenosis, lumbar region with neurogenic claudication Paroxysmal atrial fibrillation Syncope (Acute) HFrEF (heart failure with reduced ejection fraction) Transaminitis Venous stasis ulcers of both lower extremities Non-pressure chronic ulcer of other part of left foot limited to breakdown of skin Non-pressure chronic ulcer of other part of right foot limited to breakdown of skin Peripheral arterial disease (Chronic) Pressure ulcer of right foot, stage 3 Chronic diastolic heart failure History of infection of total joint prosthesis of knee Atrial fibrillation History of MRSA infection Recurrent cellulitis of lower extremity (Acute) Polyneuropathy Depression Atrial flutter (Acute) Atrial fibrillation with RVR Open wound of knee (Acute) Venous ulcers of both lower extremities (Acute) Pain associated with wound Palliative care by specialist Advanced care planning/counseling discussion Back pain VRE bacteremia Ambulatory dysfunction Infection of prosthetic right knee joint Weakness (Acute) Fall (Acute) Anemia (Acute) Hypomagnesemia (Acute) Bilateral cellulitis of lower leg (Acute) Peripheral neuropathy Chronic venous stasis Cellulitis of both feet (Acute) Rheumatoid arthritis Open wound of foot Open wound of right hand (Acute) Chronic wound Lymphangitis of lower extremity Hypomagnesemia (Acute) Open wound of left upper arm (Acute) Open wound of left arm with tendon injury Gram-negative bacteremia Cellulitis of right lower extremity (Acute) Generalized weakness (Acute) Elevated procalcitonin (Acute) Acute kidney injury superimposed on chronic kidney disease (Acute) Skin tear of right upper extremity (Acute) Open wound of left foot (Acute) Open wound of right foot (Acute) Skin tear of right hand without complication (Acute) Venous ulcer of left leg (Acute) Traumatic open wound of right lower leg (Acute) Elevated LFTs MRSA bacteremia Dislocation, hip closed (Acute) Dislocation, hip, posterior Rotator cuff arthropathy of both shoulders Abrasion of right knee (Acute) Pain of right hip Prophylactic antibiotic Left shoulder pain Acquired foot deformity (Chronic) Traumatic wound (Acute) Pressure ulcer of left foot, stage 3 (Acute) Abnormal ankle brachial index (Acute) Right knee pain Non-ST elevation DE (NSTEMI) (Acute) Leukocytosis (Acute) Myoclonus Cervical radiculopathy Neuropathy Weakness On amiodarone therapy Weakness of right hip Constipation Sepsis following procedure Rhabdomyolysis MRSA infection History of CHF (congestive heart failure) Visual disturbance Hyponatremia Hypotension Acute metabolic encephalopathy Abdominal wall abscess (Acute) HFrEF (heart failure with reduced ejection fraction) EF 40% Mar 2022, improved 55-60% August 2022 Lumbar stenosis Osteoarthritis of right knee Anxiety and depression Hypertension Coronary artery disease Atherogenic dyslipidemia Lumbar radiculopathy Lower extremity weakness Degenerative spondylolisthesis Chronic low back pain Scoliosis of lumbar region due to degenerative disease of spine in adult Dislocation of hip, right, closed (Acute) Septic joint of right knee joint COVID-19 (Acute) Incisional hernia Incarcerated intra-abdominal hernia (Acute) Adjustment disorder with mixed anxiety and depressed mood Medical History Hypoxia JEFFERY (acute kidney injury) Hypotension Hyperkalemia Lethargy Ischemic ulcer of left foot Ischemic ulcer of right foot Bilateral lower leg cellulitis PVD (peripheral vascular disease) Atrial flutter with rapid ventricular response Open wound of left lower extremity Sepsis secondary to UTI Fever Sepsis due to skin infection Sepsis Fall Infected hardware in right leg Chronic infection of right knee Severe sepsis Venous ulcer of right leg Idiopathic polyneuropathy History of immunosuppressive therapy Heart failure with preserved ejection fraction GERD (gastroesophageal reflux disease) Sepsis Septicemia due to Streptococcus pneumoniae Respiratory failure with hypoxia Hypomagnesemia Pneumonia Benign essential hypertension Lumbar stenosis Hx of staphylococcal infection 03/2022, w/"bacterial infection" at the same, in the rt. knee, occurrred during atrial fibrillation episode. "when he woke up, he couldn't walk." Atrial fibrillation episode occurred in 03/2022, taken to [facility] in [place], admitted to ICU for 1-2 weeks (was not intubated, but wasn't "awake either"), then to cardiac unit, then to rehab at [facility]; f/u dr. guerra in [place]>will be starting to see a medical appliance maker at [facility] 2nd week of 08/2022 Myocardial Infarction "a silent one, 2019" Sleep apnea no device Surgical History Status post revision of total replacement of right knee Hx of Achilles tendon repair rt. Hx of knee surgery rt. patellar tendon repair Hx of rotator cuff surgery bilateral Hx of total knee replacement lt. Hx of total hip arthroplasty rt. History of colostomy reversal History of bowel resection for diverticulitis; w/colostomy placement for 3-4 months Hx of hernia repair near former colostomy site History of esophagogastroduodenoscopy (EGD) Hx of colonoscopy Last Colonoscopy 08/14/22, repeat 3 years in 2025 Hx of bilateral cataract extraction History of heart artery stent ~3 years ago, x2 stents, done in [place]; f/u dr guerra, [place]>will be seeing new cardio at [place] of August 2022. History of cardiac cath ~3 years ago, SOB and "felt like throat was constricting", had "silent heart attack", x2 stents, done in [place] Family History Grandmother (Maternal) Diabetes Daughter Diabetes Father Suicide Hypertension Denies family history of Ovarian cancer Prostate cancer Myocardial infarction Breast cancer Lung cancer Colorectal cancer Stroke Social History Smoking Status: Never smoker Second Hand Exposure: No; Do You Dip or Chew Tobacco: No; Hx Alcohol Use: Yes Alcohol type: wine Alcohol Intake Frequency: 4 or More x per/Week Hx Substance Use: No Preferred Language: Namibian Communication Ability: Effective Visual Impairment: Limited Hearing Ability: Normal Staff Therapist Required: No Beliefs That Will Affect Care: None marital status: Single Current Living Situation: Personal Care Facility Current Living Situation Comment: [facility] current occupational status: retired How many Children do You have: 2 Feels Safe at Home: Yes Safety Concerns: Feels Safe At This Time Childhood Exposure to Second-Hand Smoke: Yes Diet: regular caffeine: Yes Dental Care, Regularly: Yes Physical Activity Frequency: Does not Exercise Seatbelt Use: always Sunscreen Use: Yes Assistive Devices: Wheelchair Allergies Allergies Allergy/AdvReac Type Severity Reaction Status Date / Time cat dander Allergy Severe CAT Verified 08/26/24 11:27 HAIR---Swelling of Lip/Tongue/Throat Home Meds Home Medications Medication Instructions Recorded Confirmed aspirin 81 mg tablet,delayed 81 mg PO QAM 08/07/22 10/06/24 release (Adult Low Dose Aspirin) rivaroxaban 20 mg tablet (Xarelto) 20 mg PO QPM 11/19/23 10/06/24 sennosides 8.6 mg tablet 8.6 mg PO BID 12/15/23 10/06/24 mirtazapine 30 mg tablet 30 mg PO HS 01/21/24 10/06/24 nitroglycerin 0.4 mg sublingual 0.4 mg sublingual DIRECTED PRN 01/21/24 10/06/24 tablet chest pin pravastatin 40 mg tablet 40 mg PO HS 01/21/24 10/06/24 vitamin E 268 mg (400 unit) capsule 268 mg PO DAILY ##0 01/21/24 10/06/24 acetaminophen 325 mg tablet 975 mg PO Q8H PRN mild pain,fever, 01/26/24 10/06/24 or headache bumetanide 0.5 mg tablet 0.5 mg PO DAILY 05/27/24 10/06/24 sulfamethoxazole 800 1 tab PO DAILY 07/14/24 10/06/24 mg-trimethoprim 160 mg tablet (Bactrim DS) diclofenac sodium 1 % topical gel 2 g topical QID PRN Shoulder Pain 07/22/24 10/06/24 glucosamine sulfate 500 mg tablet 500 mg PO [facility] 07/22/24 10/06/24 (Glucosamine) hydrocodone 5 mg-acetaminophen 325 1 tab PO Q6 PRN Moderate Pain 07/22/24 10/06/24 mg tablet (Scale Score 5-6) melatonin 3 mg tablet 6 mg PO HS 07/22/24 10/06/24 multivitamin 1 tab PO QAM 07/22/24 10/06/24 omega-3 fatty acids 1,250 mg 1,250 mg PO QAM 07/22/24 10/06/24 capsule tamsulosin 0.4 mg capsule 0.4 mg PO HS 07/22/24 10/06/24 Lactobacillus acidophilus 1 tab PO DAILY 08/12/24 10/06/24 cholecalciferol (vitamin D3) 10 20 mcg PO DAILY 08/12/24 10/06/24 mcg (400 unit) tablet (Vitamin D3) folic acid 1 mg tablet 1 mg PO DAILY 08/12/24 10/06/24 metoprolol succinate 50 mg 12.5 mg PO QAM 08/12/24 10/06/24 tablet,extended release 24 hr netarsudil 0.02 %-latanoprost 1 drp OPB HS 08/12/24 10/06/24 0.005 % eye drops (Rocklatan) omeprazole 20 mg capsule,delayed 20 mg PO DAILY 08/12/24 10/06/24 release thiamine HCl (vitamin B1) 100 mg 100 mg PO DAILY 08/12/24 10/06/24 tablet vitamins B1 2.5 mg-B2 2.5 1 tab PO DAILY 08/12/24 10/06/24 mg-niacin 5 mg-B12 100 mcg-protease tablet (B-Complex With B-12) meropenem 1 gram intravenous 1 g IV Q8H 10/06/24 10/06/24 solution vancomycin 1.75 gram intravenous 1.75 g IV Q24H 10/06/24 10/06/24 solution Previous Rx's Medication Instructions Recorded cyanocobalamin (vitamin B-12) 500 1,000 mcg (2 x 500 mcg) PO QAM #30 01/18/23 mcg tablet tabs duloxetine 60 mg capsule,delayed 60 mg PO QAM #90 caps 10/29/23 release ferrous sulfate 325 mg (65 mg 325 mg PO DAILY #90 tabs 05/11/24 iron) tablet sacubitril 24 mg-valsartan 26 mg 1 tab PO BID #180 tabs 05/11/24 tablet (Entresto) gabapentin 600 mg tablet 600 mg PO TID neuropathy from 05/12/24 severe PVD wounds 1 month #90 tabs collagenase clostridium histo. 250 1 applic topical DAILY #30 grams 07/22/24 unit/gram topical ointment (Santyl) amiodarone 200 mg tablet 200 mg PO QAM #30 tabs 08/19/24 levetiracetam 250 mg tablet 250 mg PO BID #60 tabs 08/22/24 Results & Data (ED) Vital Signs Vital Signs - 24 hr 10/06/24 16:36 10/06/24 16:55 10/06/24 16:59 Temperature 36.8 C Temperature Source Oral Pulse Rate 79 82 Pulse Rate [Right Finger] 69 Respiratory Rate 18 18 Respiratory Effort / Characteristics Non-Labored Respiratory Depth Normal Blood Pressure 151/94 H Blood Pressure [Right Arm] 151/94 H Blood Pressure Mean 113 Blood Pressure Mean [Right Arm] 113 Pulse Oximetry 94 94 Oxygen Delivery Method Room Air Room Air Oxygen Flow Rate Sepsis Recent Fever Within 48 Hours Yes Sepsis New/Unexplained Change in Mental Status No Sepsis Action Taken by Nursing No Action Required 10/06/24 18:55 10/06/24 20:00 10/06/24 20:59 Temperature Temperature Source Pulse Rate 73 Pulse Rate [Right Finger] 79 79 Respiratory Rate 18 18 Respiratory Effort / Characteristics Non-Labored Non-Labored Respiratory Depth Normal Normal Blood Pressure Blood Pressure [Right Arm] 144/90 H 144/90 H Blood Pressure Mean Blood Pressure Mean [Right Arm] 108 108 Pulse Oximetry 91 93 Oxygen Delivery Method Room Air Room Air Oxygen Flow Rate Sepsis Recent Fever Within 48 Hours Sepsis New/Unexplained Change in Mental Status Sepsis Action Taken by Nursing 10/06/24 22:00 Temperature Temperature Source Pulse Rate Pulse Rate [Right Finger] 89 Respiratory Rate 19 Respiratory Effort / Characteristics Non-Labored Respiratory Depth Normal Blood Pressure Blood Pressure [Right Arm] Blood Pressure Mean Blood Pressure Mean [Right Arm] Pulse Oximetry 92 Oxygen Delivery Method Nasal Cannula Oxygen Flow Rate 2 Sepsis Recent Fever Within 48 Hours Sepsis New/Unexplained Change in Mental Status Sepsis Action Taken by Nursing Laboratory Data 10/08/24 05:49 10/08/24 05:49 Lab Results 10/06/24 10/06/24 10/06/24 Range/Units 17:02 18:09 19:18 WBC 6.69 (4.8-10.8) K/ul RBC 4.01 L (4.70-6.10) M/uL Hgb 11.7 L (14.0-18.0) g/dl Hct 36.9 L (42.0-52.0) % MCV 92.0 (80.0-100.0) fL MCH 29.2 (25.0-34.0) pg MCHC 31.7 L (32.0-36.0) g/dL RDW Std Deviation 57.0 H (36.4-46.3) fL RDW Coeff of Sammie 17.1 H (11.5-14.5) % Plt Count 206 (130-400) K/uL MPV 10.0 (9.4-12.4) fL Immature Gran % (Auto) 0.3 % Neut % (Auto) 66.7 % Lymph % (Auto) 8.5 % Pecos % (Auto) 13.6 % Eos % (Auto) 10.5 % Baso % (Auto) 0.4 % Neut # (Auto) 4.46 (1.40-6.50) K/uL Lymph # (Auto) 0.57 L (1.20-3.40) K/uL P[place]os # (Auto) 0.91 H (0.11-0.59) K/uL Eos # (Auto) 0.70 H (0.00-0.50) K/uL Baso # (Auto) 0.03 (0.00-0.20) K/uL Immature Gran # (Auto) 0.02 (0.01-0.20) K/uL PT 11.4 (9.0-12.0) Seconds INR 1.1 (0.9-1.1) Sodium 140 (136-145) mmol/L Potassium TNP 4.0 Chloride 104 (98-107) mmol/L Carbon Dioxide 31 (21-32) mmol/L Anion Gap 5 (3-11) BUN 25 H (6-23) mg/dl Creatinine 0.96 (0.6-1.4) mg/dl Est Cr Clr Drug Dosing 83.5 ml/min eGFR 79.90 BUN/Creatinine Ratio 26.0 H (10-20) Glucose 95 (70-99(Fasting)) mg/dl Calcium 8.4 L (8.6-10.3) mg/dl Magnesium 1.7 (1.7-2.4) mg/dl Total Bilirubin 0.6 (0.2-1.0) mg/dl AST TNP 97 H ALT 85 H (7-52) U/L Alkaline Phosphatase 89 (34-104) U/L Troponin I High Sens 30.1 H (0-20) pg/ml B-Natriuretic Peptide 387 H (0-100) pg/ml Total Protein 6.0 (6.0-8.3) gm/dl Albumin 3.1 L (3.4-5.0) gm/dl Globulin 2.9 (2.5-4.0) gm/dl Albumin/Globulin Ratio 1.1 (0.9-2) Lipase 19 (11-82) U/L Urine Color Dark Yellow Urine Appearance Clear (Clear) Urine pH 6.5 (4.5-7.5) Ur Specific Foster 1.018 (1.000-1.030) Urine Protein 1+ H (Negative) Urine Glucose (UA) Negative (Negative) Urine Ketones Trace H (Negative) Urine Blood Negative (Negative) Urine Nitrite Negative (Negative) Urine Bilirubin Negative (Negative) Urine Urobilinogen Negative (Negative) Ur Leukocyte Esterase Negative (Negative) Urine WBC (Auto) 0-5 (0-5) /hpf Urine RBC (Auto) 0-2 (0-2) /hpf U Hyaline Cast (Auto) 0-2 (0-2) /lpf U Epithel Cells (Auto) 0-2 (0-2) /hpf Urine Bacteria (Auto) None Seen (None Seen) Adenovirus (PCR) Not Detected (NotDetected) B. pertussis DNA (PCR) Not Detected (NotDetected) B.parapertussis DNA PCR Not Detected (NotDetected) C. pneumoniae DNA (PCR) Not Detected (NotDetected) Coronavirus OC43 (PCR) Not Detected (NotDetected) Coronavirus HKU1 (PCR) Not Detected (NotDetected) Coronavirus 229E (PCR) Not Detected (NotDetected) SARS-CoV-2 (PCR) Not Detected (NotDetected) Coronavirus NL63 (PCR) Not Detected (NotDetected) Human Metapneumovir PCR DETECTED A (NotDetected) Influenza Type A (PCR) Not Detected (NotDetected) Influenza Type B (PCR) Not Detected (NotDetected) M. pneumoniae (PCR) Not Detected (NotDetected) Parainfluenza 1 (PCR) Not Detected (NotDetected) Parainfluenza 2 (PCR) Not Detected (NotDetected) Parainfluenza 3 (PCR) Not Detected (NotDetected) Parainfluenza 4 (PCR) Not Detected (NotDetected) RSV (PCR) Not Detected (NotDetected) Entero/Rhino (PCR) Not Detected (NotDetected) 10/06/24 Range/Units 22:28 WBC (4.8-10.8) K/ul RBC (4.70-6.10) M/uL Hgb (14.0-18.0) g/dl Hct (42.0-52.0) % MCV (80.0-100.0) fL MCH (25.0-34.0) pg MCHC (32.0-36.0) g/dL RDW Std Deviation (36.4-46.3) fL RDW Coeff of Sammie (11.5-14.5) % Plt Count (130-400) K/uL MPV (9.4-12.4) fL Immature Gran % (Auto) % Neut % (Auto) % Lymph % (Auto) % Pecos % (Auto) % Eos % (Auto) % Baso % (Auto) % Neut # (Auto) (1.40-6.50) K/uL Lymph # (Auto) (1.20-3.40) K/uL Pecos # (Auto) (0.11-0.59) K/uL Eos # (Auto) (0.00-0.50) K/uL Baso # (Auto) (0.00-0.20) K/uL Immature Gran # (Auto) (0.01-0.20) K/uL PT (9.0-12.0) Seconds INR (0.9-1.1) Sodium (136-145) mmol/L Potassium Chloride (98-107) mmol/L Carbon Dioxide (21-32) mmol/L Anion Gap (3-11) BUN (6-23) mg/dl Creatinine (0.6-1.4) mg/dl Est Cr Clr Drug Dosing ml/min eGFR BUN/Creatinine Ratio (10-20) Glucose (70-99(Fasting)) mg/dl Calcium (8.6-10.3) mg/dl Magnesium (1.7-2.4) mg/dl Total Bilirubin (0.2-1.0) mg/dl AST ALT (7-52) U/L Alkaline Phosphatase (34-104) U/L Troponin I High Sens 35.4 H (0-20) pg/ml B-Natriuretic Peptide (0-100) pg/ml Total Protein (6.0-8.3) gm/dl Albumin (3.4-5.0) gm/dl Globulin (2.5-4.0) gm/dl Albumin/Globulin Ratio (0.9-2) Lipase (11-82) U/L Urine Color Urine Appearance (Clear) Urine pH (4.5-7.5) Ur Specific Foster (1.000-1.030) Urine Protein (Negative) Urine Glucose (UA) (Negative) Urine Ketones (Negative) Urine Blood (Negative) Urine Nitrite (Negative) Urine Bilirubin (Negative) Urine Urobilinogen (Negative) Ur Leukocyte Esterase (Negative) Urine WBC (Auto) (0-5) /hpf Urine RBC (Auto) (0-2) /hpf U Hyaline Cast (Auto) (0-2) /lpf U Epithel Cells (Auto) (0-2) /hpf Urine Bacteria (Auto) (None Seen) Adenovirus (PCR) (NotDetected) B. pertussis DNA (PCR) (NotDetected) B.parapertussis DNA PCR (NotDetected) C. pneumoniae DNA (PCR) (NotDetected) Coronavirus OC43 (PCR) (NotDetected) Coronavirus HKU1 (PCR) (NotDetected) Coronavirus 229E (PCR) (NotDetected) SARS-CoV-2 (PCR) (NotDetected) Coronavirus NL63 (PCR) (NotDetected) Human Metapneumovir PCR (NotDetected) Influenza Type A (PCR) (NotDetected) Influenza Type B (PCR) (NotDetected) M. pneumoniae (PCR) (NotDetected) Parainfluenza 1 (PCR) (NotDetected) Parainfluenza 2 (PCR) (NotDetected) Parainfluenza 3 (PCR) (NotDetected) Parainfluenza 4 (PCR) (NotDetected) RSV (PCR) (NotDetected) Entero/Rhino (PCR) (NotDetected) Administered Medications Acetaminophen (Acetaminophen 325 Mg Tab) 650 mg PO Q4H PRN PRN Reason: Pain or Fever Stop: 11/06/24 21:03 Last Admin: 10/08/24 15:06 Dose: 650 mg Documented By: Admin: 10/07/24 21:13 Dose: 650 mg Documented By: HNT Hydrocodone Bitart/Acetaminophen (Hydrocodone/Acetamophen 5/325mg Tab) 1 tab PO Q6 PRN PRN Reason: Moderate Pain (Scale Score 5-6) Stop: 10/21/24 00:40 Last Admin: 10/08/24 21:25 Dose: 1 tab Documented By: GENOVEVA Albuterol (Albut/Ipratrop 3mg/0.5mg Neb 3 Ml Vial) 3 ml NEB Q4R [facility]; Protocol Stop: 11/06/24 02:59 Last Admin: 10/08/24 19:48 Dose: 3 ml Documented By: Admin: 10/08/24 14:37 Dose: 3 ml Documented By: Admin: 10/08/24 11:13 Dose: 3 ml Documented By: Admin: 10/08/24 08:02 Dose: 3 ml Documented By: Admin: 10/08/24 01:52 Dose: Not Given Documented By: Admin: 10/07/24 22:49 Dose: 3 ml Documented By: Admin: 10/07/24 19:25 Dose: 3 ml Documented By: Admin: 10/07/24 14:34 Dose: 3 ml Documented By: Admin: 10/07/24 10:18 Dose: 3 ml Documented By: Admin: 10/07/24 07:02 Dose: 3 ml Documented By: Admin: 10/07/24 02:17 Dose: Not Given Documented By: TYREE Amiodarone HCl (Amiodarone 200 Mg Tab) 200 mg PO QAM [facility] Stop: 11/06/24 08:59 Last Admin: 10/08/24 10:04 Dose: 200 mg Documented By: Admin: 10/07/24 08:08 Dose: 200 mg Documented By: CINTHYA Aspirin (Aspirin 81 Mg Ectab) 81 mg PO QAM [facility] Stop: 11/06/24 08:59 Last Admin: 10/08/24 10:03 Dose: 81 mg Documented By: Admin: 10/07/24 08:09 Dose: 81 mg Documented By: CINTHYA Benzonatate (Benzonatate 100 Mg Capsule) 100 mg PO PM [facility] Stop: 11/07/24 20:59 Last Admin: 10/08/24 21:25 Dose: 100 mg Documented By: GENOVEVA Collagenase (Collagenase Oint 30 Gm Tube) 1 appln TOP DAILY [facility] Stop: 11/06/24 08:59 Last Admin: 10/08/24 10:00 Dose: Not Given Documented By: Admin: 10/07/24 10:24 Dose: 1 appln Documented By: CINTHYA Cyanocobalamin (Cyanocobalamin (B-12) 500 Mcg Tablet) 1,000 mcg PO QAM [facility] Stop: 11/06/24 08:59 Last Admin: 10/08/24 10:04 Dose: 1,000 mcg Documented By: Admin: 10/07/24 08:10 Dose: 1,000 mcg Documented By: CINTHYA Duloxetine HCl (Duloxetine Hcl 60 Mg Cap) 60 mg PO QAM [facility] Stop: 11/06/24 08:59 Last Admin: 10/08/24 10:04 Dose: 60 mg Documented By: Admin: 10/07/24 08:10 Dose: 60 mg Documented By: CINTHYA Ferrous Sulfate (Ferrous Sulfate 325 Mg Tab) 325 mg PO DAILY [facility] Stop: 11/06/24 08:59 Last Admin: 10/08/24 10:05 Dose: 325 mg Documented By: Admin: 10/07/24 08:10 Dose: 325 mg Documented By: CINTHYA Folic Acid (Folic Acid 1 Mg Tab) 1 mg PO DAILY [facility] Stop: 11/06/24 08:59 Last Admin: 10/08/24 10:04 Dose: 1 mg Documented By: Admin: 10/07/24 08:11 Dose: 1 mg Documented By: CINTHYA Gabapentin (Gabapentin 600 Mg Tab) 600 mg PO TID [facility] Stop: 11/06/24 08:59 Last Admin: 10/08/24 21:25 Dose: 600 mg Documented By: Admin: 10/08/24 15:09 Dose: 600 mg Documented By: Admin: 10/08/24 10:04 Dose: 600 mg Documented By: Admin: 10/07/24 20:45 Dose: 600 mg Documented By: Admin: 10/07/24 13:00 Dose: 600 mg Documented By: Admin: 10/07/24 08:11 Dose: 600 mg Documented By: CINTHYA Glucosamine Sulfate (Glucosamine Sulfate 500 Mg Cap) 500 mg PO QAM [facility] Stop: 11/06/24 08:59 Last Admin: 10/08/24 10:04 Dose: 500 mg Documented By: Admin: 10/07/24 08:11 Dose: 500 mg Documented By: CINTHYA Guaifenesin (Guaifenesin 600 Mg Tabcr) 1,200 mg PO Q12 [facility] Stop: 11/06/24 10:59 Last Admin: 10/08/24 21:25 Dose: 1,200 mg Documented By: Admin: 10/08/24 10:06 Dose: 1,200 mg Documented By: Admin: 10/07/24 20:45 Dose: 1,200 mg Documented By: Admin: 10/07/24 11:21 Dose: 1,200 mg Documented By: PENNY Heparin Sodium (Beef Lung) (Heparin 10 Unit/Ml 5 Ml Flush) 5 ml FLUSH PRN PRN PRN Reason: Flush Stop: 11/06/24 20:44 Last Admin: 10/08/24 15:06 Dose: 10 ml Documented By: Admin: 10/08/24 09:01 Dose: 10 ml Documented By: Admin: 10/07/24 21:03 Dose: 5 ml Documented By: Admin: 10/07/24 21:02 Dose: 5 ml Documented By: YAYA Hydrocodone Bit/Homatropine Methylb (Hydrocodone/Homatropine Syrup 5mg/1.5mg 5ml Udp) 5 ml PO Q4H PRN PRN Reason: Cough Stop: 10/21/24 05:30 Last Admin: 10/08/24 21:28 Dose: 5 ml Documented By: Admin: 10/08/24 15:05 Dose: 5 ml Documented By: Admin: 10/08/24 10:15 Dose: 5 ml Documented By: GLO Bumetanide 1 mg/ Syringe 4 mls @ 4 mls/min IV BID@0900,1700 [facility] Stop: 11/06/24 08:59 Last Admin: 10/08/24 15:09 Dose: 4 mls/min Documented By: Admin: 10/08/24 10:14 Dose: 4 mls/min Documented By: Admin: 10/07/24 16:49 Dose: 4 mls/min Documented By: Admin: 10/07/24 08:09 Dose: 4 mls/min Documented By: CINTHYA Vancomycin HCl 1,750 mg/ (Sodium Chloride) 535 mls @ 200 mls/hr IV Q24H [facility] Stop: 10/12/24 08:41 Last Infusion: 10/08/24 10:14 Dose: Infused Documented By: Admin: 10/08/24 05:11 Dose: 200 mls/hr Documented By: Infusion: 10/07/24 09:32 Dose: Infused Documented By: Admin: 10/07/24 06:48 Dose: 200 mls/hr Documented By: SUJEY Meropenem 500 mg/ Syringe 10 mls @ 2 mls/min IV Q6H ELD[facility]; Protocol Stop: 10/12/24 20:04 Last Admin: 10/08/24 21:35 Dose: 2 mls/min Documented By: Admin: 10/08/24 15:07 Dose: 2 mls/min Documented By: Admin: 10/08/24 10:14 Dose: 2 mls/min Documented By: Admin: 10/08/24 02:20 Dose: 2 mls/min Documented By: Admin: 10/07/24 19:53 Dose: 2 mls/min Documented By: Admin: 10/07/24 13:00 Dose: 2 mls/min Documented By: Admin: 10/07/24 08:04 Dose: 2 mls/min Documented By: Admin: 10/07/24 02:14 Dose: 2 mls/min Documented By: TOMMY Latanoprost (Latanoprost 0.005% Op Soln 2.5 Ml Btl) 1 drops OP PM [facility] Stop: 11/06/24 20:59 Last Admin: 10/08/24 21:26 Dose: 1 drops Documented By: Admin: 10/07/24 20:46 Dose: 1 drops Documented By: PATY Levetiracetam (Levetiracetam 250 Mg Tab) 250 mg PO BID [facility] Stop: 11/06/24 08:59 Last Admin: 10/08/24 21:25 Dose: 250 mg Documented By: Admin: 10/08/24 10:05 Dose: 250 mg Documented By: Admin: 10/07/24 20:46 Dose: 250 mg Documented By: Admin: 10/07/24 08:11 Dose: 250 mg Documented By: CINTHYA Melatonin (Melatonin 3 Mg Tab) 6 mg PO HS [facility] Stop: 11/06/24 20:59 Last Admin: 10/08/24 21:25 Dose: 6 mg Documented By: Admin: 10/07/24 20:47 Dose: 6 mg Documented By: PATY Menthol (Cough Drop (Sugar Free) Maya 24 Maya/1 Box) 1 maya BUCCAL Q2H PRN PRN Reason: Sore Throat Stop: 11/06/24 10:51 Last Admin: 10/08/24 10:14 Dose: 1 maya Documented By: GLO Metoprolol Succinate (Metoprolol Succ 50mg Ext Rel Tab) 12.5 mg PO QAM [facility] Stop: 11/06/24 08:59 Last Admin: 10/08/24 10:05 Dose: 12.5 mg Documented By: Admin: 10/07/24 08:12 Dose: 12.5 mg Documented By: CINTHYA Mirtazapine (Mirtazapine Tab 15 Mg Tab) 30 mg PO [facility] Stop: 11/06/24 20:59 Last Admin: 10/08/24 21:25 Dose: 30 mg Documented By: Admin: 10/07/24 20:47 Dose: 30 mg Documented By: PATY Pantoprazole Sodium (Pantoprazole 40 Mg Tab) 40 mg PO DAILY [facility] Stop: 11/06/24 08:59 Last Admin: 10/08/24 10:05 Dose: 40 mg Documented By: Admin: 10/07/24 08:20 Dose: 40 mg Documented By: CINTHYA Pravastatin Sodium (Pravastatin Sod 40 Mg Tab) 40 mg PO [facility] Stop: 11/06/24 20:59 Last Admin: 10/08/24 21:25 Dose: 40 mg Documented By: Admin: 10/07/24 20:48 Dose: 40 mg Documented By: PATY Rivaroxaban (Rivaroxaban 20 Mg Tab) 20 mg PO QPM [facility] Stop: 11/06/24 20:59 Last Admin: 10/08/24 21:25 Dose: 20 mg Documented By: Admin: 10/07/24 20:48 Dose: 20 mg Documented By: PATY Sacubitril/Valsartan (Valsartan/Sacubitril 26/24mg Tab) 1 tab PO BID [facility] Stop: 11/06/24 08:59 Last Admin: 10/08/24 21:25 Dose: 1 tab Documented By: Admin: 10/08/24 10:04 Dose: 1 tab Documented By: Admin: 10/07/24 20:50 Dose: 1 tab Documented By: Admin: 10/07/24 08:12 Dose: 1 tab Documented By: CINTHYA Sennosides (Senna 8.6 Mg Tab) 8.6 mg PO BID [facility] Stop: 11/06/24 08:59 Last Admin: 10/08/24 21:25 Dose: 8.6 mg Documented By: Admin: 10/08/24 10:14 Dose: 8.6 mg Documented By: Admin: 10/07/24 20:49 Dose: 8.6 mg Documented By: Admin: 10/07/24 09:32 Dose: 8.6 mg Documented By: CINTHYA Sodium Chloride (Sodium Chlor 7% 4 Ml Neb) 4 ml NEB BIDR [facility] Stop: 11/06/24 06:59 Last Admin: 10/08/24 19:47 Dose: 4 ml Documented By: Admin: 10/08/24 08:02 Dose: 4 ml Documented By: Admin: 10/07/24 19:25 Dose: 4 ml Documented By: Admin: 10/07/24 07:02 Dose: 4 ml Documented By: GUTIERREZ Tamsulosin HCl (Tamsulosin Hcl 0.4 Mg Cap) 0.4 mg PO HS [facility] Stop: 11/06/24 20:59 Last Admin: 10/08/24 21:25 Dose: 0.4 mg Documented By: Admin: 10/07/24 20:49 Dose: 0.4 mg Documented By: APTY Thiamine HCl (Thiamine Hcl 100 Mg Tab) 100 mg PO DAILY [facility] Stop: 11/06/24 08:59 Last Admin: 10/08/24 10:05 Dose: 100 mg Documented By: Admin: 10/07/24 08:19 Dose: 100 mg Documented By: CINTHYA Vitamin D (Cholecalciferol 10 Mcg (400 Units) Tab) 20 mcg PO DAILY [facility] Stop: 11/06/24 08:59 Last Admin: 10/08/24 10:04 Dose: 20 mcg Documented By: Admin: 10/07/24 08:10 Dose: 20 mcg Documented By: CINTHYA Discontinued Medications Albuterol (Albut/Ipratrop 3mg/0.5mg Neb 3 Ml Vial) 3 ml NEB NOW STA; Protocol Stop: 10/06/24 20:28 Last Admin: 10/06/24 20:41 Dose: 3 ml Documented By: TOMYM Benzonatate (Benzonatate 100 Mg Capsule) 100 mg PO NOW ONE Stop: 10/06/24 17:10 Last Admin: 10/06/24 17:22 Dose: 100 mg Documented By: TOMMY Bumetanide (Bumetanide 1 Mg Tab) 0.5 mg PO NOW ONE Stop: 10/06/24 18:15 Last Admin: 10/06/24 18:29 Dose: 0.5 mg Documented By: TOMMY Guaifenesin/Dextromethorphan (Guaifenesin/Dextrom Syrup 200mg/20mg 10ml Udc) 10 ml PO NOW STA Stop: 10/06/24 19:08 Last Admin: 10/06/24 19:23 Dose: 10 ml Documented By: DARLENE Hydrocodone Bit/Homatropine Methylb (Hydrocodone/Homatropine Syrup 5mg/1.5mg 5ml Udp) 5 ml PO NOW STA Stop: 10/06/24 21:34 Last Admin: 10/06/24 21:41 Dose: 5 ml Documented By: TOMMY Meropenem 1,000 mg/ Syringe 20 mls @ 4 mls/min IV NOW STA; Protocol Stop: 10/06/24 17:29 Last Admin: 10/06/24 18:00 Dose: 4 mls/min Documented By: TOMMY Methylprednisolone 60 mg/ (Syringe) 0.96 mls @ 1.5 mls/min IV NOW STA Stop: 10/07/24 10:59 Last Admin: 10/07/24 11:58 Dose: 1.5 mls/min Documented By: PAT Ibuprofen (Ibuprofen 600 Mg Tab) 600 mg PO NOW STA Stop: 10/06/24 23:29 Last Admin: 10/06/24 23:47 Dose: 600 mg Documented By: TOMMY Ioversol (Optiray 320 100ml) 93 ml IV ONCE ONE Stop: 10/07/24 11:13 Last Admin: 10/07/24 11:13 Dose: 93 ml Documented By: HORACIO Miscellaneous ([facility]~Order Awaiting Action) 1 each N/A QS E[facility]ER Stop: 11/06/24 07:59 Last Admin: 10/07/24 09:13 Dose: Not Given Documented By: CINTHYA Multi-Ingredient Mouthwash/Gargle (First - Mouthwash Blm 5 Ml Udp) 5 ml PO ONE ONE Stop: 10/08/24 18:39 Last Admin: 10/08/24 21:25 Dose: 5 ml Documented By: GENOVEVA Imaging Data Radiologist's Impression: Chest X-Ray 10/06/24 17:08 EXAM: XR chest 1V portable CLINICAL HISTORY: worsening cough. TECHNIQUE: An X-ray image of the chest is obtained in AP projection. COMPARISON: X-ray 07/22/2024 18:07:00 [employer] FINDINGS: Pulmonary Parenchyma: Accentuated bronchovascular markings and pulmonary reticulations bilaterally are likely related to bronchitis. stable small pulmonary nodular shadow right lower lung zone. No evidence of consolidation, collapse, or focal opacities. No evidence of pleural effusion or pleural thickening. Heart and Mediastinum: borderline cardiothoracic ratio, No mediastinal widening or masses. No hilar or mediastinal lymphadenopathy. Bony Thorax: Bony thorax appears intact without fractures or deformities. Soft Tissues: Soft tissues overlying the chest wall are unremarkable. IMPRESSION: 1. Accentuated bronchovascular markings and pulmonary reticulations bilaterally are likely related to bronchitis (more prominent than the prior study). 2. No consolidation. 3. Stable small pulmonary nodular shadow in the right lower lung zone. 4. Borderline cardiothoracic ratio. Electronically signed by Darron Garcia 10-06-2024 7:13 PM Discharge Plan Visit Data Chief Complaint: Illness Stated Complaint: WEAKNESS, COUGH. INFECTIONS ED Provider: Lisa Kohli Discharge Problem: Cough, Fatigue, Bronchitis due to human metapneumovirus (hMPV), Elevated brain natriuretic peptide (BNP) level Patient Disposition: Admitted As Inpatient Condition: Fair Discharge Instructions Interventions: ED Discharge Assessment Last Done: 10/07/24 00:42
[2024-10-06] MEDS: BENZONATATE 100 MG CAPSULE PO ONE (17:22)
[2024-10-06 17:23] LABS: Basophils # (auto) 0.03 K/uL (0.00-0.20); Basophils % (auto) 0.4 %; Eosinophils % (auto) 10.5 %; Hematocrit (blood only) 36.9 % (42.0-52.0); Hemoglobin 11.7 g/dl (14.0-18.0); Immature Granulocytes # (auto) 0.02 K/uL (0.01-0.20); Immature Granulocytes % (auto) 0.3 %; Lymphocytes # (auto) 0.57 K/uL (1.20-3.40); Lymphocytes % (auto) 8.5 %; Mean Corpuscular Hemoglobin 29.2 pg (25.0-34.0); Mean Corpuscular Hgb Conc 31.7 g/dL (32.0-36.0); Monocytes # (auto) 0.91 K/uL (0.11-0.59); Monocytes % (auto) 13.6 %; Neutrophils # (auto) 4.46 K/uL (1.40-6.50); Neutrophils % (auto) 66.7 %; Platelet Count 206 K/uL (130-400); RDW Coefficient of Variation 17.1 % (11.5-14.5); Red Blood Count 4.01 M/uL (4.70-6.10); White Blood Count 6.69 K/ul (4.8-10.8)
[2024-10-06 17:48] LABS: Troponin I High Sensitivity 30.1 pg/ml (0-20)
[2024-10-06 17:52] LABS: INR 1.1 (0.9-1.1); Prothrombin Time 11.4 Seconds (9.0-12.0)
[2024-10-06 17:55] LABS: Alanine Aminotransferase 85 U/L (7-52); Albumin Globulin Ratio 1.1 (0.9-2); Albumin Level 3.1 gm/dl (3.4-5.0); Alkaline Phosphatase 89 U/L (34-104); Anion Gap 5 (3-11); Bilirubin,Total 0.6 mg/dl (0.2-1.0); Blood Urea Nitrogen 25 mg/dl (6-23); Calcium 8.4 mg/dl (8.6-10.3); Carbon Dioxide 31 mmol/L (21-32); Chloride 104 mmol/L (98-107); Creatinine Clr Calc Pharmacy 83.5 ml/min; Globulin 2.9 gm/dl (2.5-4.0); Glucose 95 mg/dl (70-99(Fasting)); Lipase 19 U/L (11-82); Magnesium 1.7 mg/dl (1.7-2.4); Sodium 140 mmol/L (136-145)
[2024-10-06] MEDS: MEROPENEM 1,000 MG in SYRINGE 0 ML IV STA (18:00)
[2024-10-06 18:27] LABS: Adenovirus PCR Not Detected (NotDetected); Bordetella parapertussis PCR Not Detected (NotDetected); Bordetella pertussis PCR Not Detected (NotDetected); Chlamydia pneumoniae PCR Not Detected (NotDetected); Coronavirus 229E PCR Not Detected (NotDetected); Coronavirus CoV-2 (COVID19)PCR Not Detected (NotDetected); Coronavirus HKU1 PCR Not Detected (NotDetected); Coronavirus NL63 PCR Not Detected (NotDetected); Coronavirus OC43PCR Not Detected (NotDetected); Human Metapneumovirus PCR DETECTED (NotDetected); Influenza A PCR Not Detected (NotDetected); Influenza B PCR Not Detected (NotDetected); Mycoplasma pneumoniae PCR Not Detected (NotDetected); Parainfluenza Virus 1 PCR Not Detected (NotDetected); Parainfluenza Virus 2 PCR Not Detected (NotDetected); Parainfluenza Virus 3 PCR Not Detected (NotDetected); Parainfluenza Virus 4 PCR Not Detected (NotDetected); Respiratory Syncytial VirusPCR Not Detected (NotDetected); Rhinovirus/Enterovirus PCR Not Detected (NotDetected)
[2024-10-06] MEDS: BUMETANIDE 1 MG TAB PO ONE (18:29)
--- NOTE | 2024-10-06 19:14 | XRay Report ---
EXAM: XR chest 1V portable CLINICAL HISTORY: worsening cough. TECHNIQUE: An X-ray image of the chest is obtained in AP projection. COMPARISON: X-ray 07/22/2024 18:07:00 [employer] FINDINGS: Pulmonary Parenchyma: Accentuated bronchovascular markings and pulmonary reticulations bilaterally are likely related to bronchitis. stable small pulmonary nodular shadow right lower lung zone. No evidence of consolidation, collapse, or focal opacities. No evidence of pleural effusion or pleural thickening. Heart and Mediastinum: borderline cardiothoracic ratio, No mediastinal widening or masses. No hilar or mediastinal lymphadenopathy. Bony Thorax: Bony thorax appears intact without fractures or deformities. Soft Tissues: Soft tissues overlying the chest wall are unremarkable. IMPRESSION: 1. Accentuated bronchovascular markings and pulmonary reticulations bilaterally are likely related to bronchitis (more prominent than the prior study). 2. No consolidation. 3. Stable small pulmonary nodular shadow in the right lower lung zone. 4. Borderline cardiothoracic ratio. Electronically signed by Darron Garcia 10-06-2024 7:13 PM
[2024-10-06] MEDS: guaiFENesin/DEXTROM SYRUP 200MG/20MG 10ML UDC PO STA (19:23)
[2024-10-06 19:40] LABS: Appearance Urine Clear (Clear); Bacteria Urine Automated None Seen (None Seen); Bilirubin Urine Negative (Negative); Blood Urine Negative (Negative); Cast Urine Automated 0-2 /lpf (0-2); Color Urine Dark Yellow; Epithelial Cell Urine Auto 0-2 /hpf (0-2); Glucose Urine UA Negative (Negative); Ketones Urine Trace (Negative); Leukocyte Esterase Urine Negative (Negative); Nitrite Urine Negative (Negative); Protein Urine 1+ (Negative); RBC Urine Automated 0-2 /hpf (0-2); Specific Gravity Urine 1.018 (1.000-1.030); Urobilinogen Urine Negative (Negative); WBC Urine Automated 0-5 /hpf (0-5); pH Urine 6.5 (4.5-7.5)
[2024-10-06] MEDS: ALBUT/IPRATROP 3MG/0.5MG NEB 3 ML VIAL NEB STA (20:41)
[2024-10-06] MEDS: HYDROcodone/HOMATROPINE SYRUP 5MG/1.5MG 5ML UDP PO STA (21:41)
--- NOTE | 2024-10-06 22:47 | History & Physical Report ---
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 ED evaluation reveals no leukocytosis, H&H 11.7/36.9; PT/INR WNL; CMP BUN 25, ratio 26, calcium 8.4, AST 97, ALT 85; troponin 30.1, pending repeat; BNP 384, albumin 3.17: BioFire positive for metapneumovirus; CXR accentuated bronchovascular markings and pulmonary reticulation bilaterally related to bronchitis, no consolidation, stable small pulmonary nodule shadow in RLL; EKG NSR, LAD, pulmonary disease pattern, nonspecific T wave abnormality at 81 bpm.; Provided with meropenem 1 g IV, and sounds in 8, bumetanide, albuterol, guaifenesin/dextromethorphan, and antitussive in ED. 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 Unable to sleep at night and becoming very SOB with coughing episodes. Worsening since initial start. Pt is on antibiotics for known infection, has been taking as prescribed. Suspect weakness 2/2 viral illness. - CBC without leukocytosis; BMP CO2 31, anion gap 5; BNP 387 - CBC am - Biofire (+) human metapneumovirus -- contact precautions - CXR exaggerated bronchovascular markings and pulmonary reticulations bilaterally likely related to bronchitis, stable small pulmonary nodule in RLL - EKG appears normal sinus with pulmonary disease pattern at 81 bpm - O2 via NC, none at baseline - FV + IC - Hypertonic saline nebs - DuoNebs lenny - No additional abx #MRSA bacteremia/recurrent R knee MRSA PJI PICC line placed 09/02 for long-term antibiotics, on vancomycin and meropenem until 10/12/2024. - Vancomycin 1.75 g every 24 hours IV - continue - Meropenem 100 mg every 8 hours IV - continue - HELD prophylactic bactrim at admission given on above abx - No ID consult at time of admission however, low threshold to add consult given prior growths #HFrEF- Daily weights, I+Os; Bumex 0.5mg, Entresto - Will increase bumex to 1mg BID17 IV at admission given significant edema BLE, adjust as appropriate #NICOLÁS- Ferrous sulfate, folic acid, H/H 11.7/36.9- CBC am #Recurrent MDR UTI- Most recent urine culture positive for ESBL Proteus and VRE E faecalis; UA currently appearing uninfected but on antibiotic, d/c from [facility] #PAF/flutter- Amiodarone 200mg, rivaroxaban - continue #LEONARD- CPAP at bedtime if pt can tolerate #Transaminitis- History of, thought to fluctuate with infections; AST/ALT 97/85, no abdominal pain, 1 episode vomiting following coughing spell #HTN- Metoprolol succinate 12.5mg - continue #Recurrent foot ulcer- R foot, wound care (dressed with Aquacel Ag and Mepilex with changes every other day), gabapentin, hydro/acetaminophen; wound care consulted #RA- No longer on Rinvoq since 04/2024 #Depression/Anxiety- Duloxetine, mirtazapine - continue #GERD- Omeprazole - continue #Dyslipidemia- Pravastatin - continue Dispo: Admit, med/tele VTE Prophylaxis: Rivaroxaban This document was dictated utilizing LOC&ALL. Please excuse any grammatical errors that may be secondary to use of this software. 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 Patient was most recently admitted to [facility] for septic arthritis and was at rehab until 09/30/2024. Cough has been bothersome for the past week and causing him to wake up throughout the night. He is undergoing daily IV antibiotics through PICC line for infection spreading to the bloodstream, per patient (MRSA bacteremia, on meropenem and vancomycin through PICC until 10/12/2024). States that he was at rehab for approximately 2 weeks and was just discharged 09/30/2024 from here. States the following day, 10/01/2024, he started to experience a dry cough. From that time, the cough continued to worsen and he has also be experiencing whole body aches, headaches, a sore throat, vomiting, diarrhea, and SOB. The cough is so significant that he cannot catch his breath, and it keeps him up at night. Reports that when he coughs, he feels dizzy and as though he may pass out. Generalized weakness. Patient has been taking his antibiotics as prescribed. Believes that his wound sites are at their baseline if not improved, and he is not having urinary symptoms. Reports to fever but has had chills. No chest pain, palpitations, constipation, numbness/tingling, or LOC. No additional URI symptoms. Has never had this happen before. ED evaluation reveals no leukocytosis, H&H 11.7/36.9; PT/INR WNL; CMP BUN 25, ratio 26, calcium 8.4, AST 97, ALT 85; troponin 30.1, pending repeat; BNP 384, albumin 3.17: BioFire positive for metapneumovirus; CXR accentuated bronchovascular markings and pulmonary reticulation bilaterally related to bronchitis, no consolidation, stable small pulmonary nodule shadow in RLL; EKG NSR, LAD, pulmonary disease pattern, nonspecific T wave abnormality at 81 bpm.; Provided with meropenem 1 g IV, and sounds in 8, bumetanide, albuterol, guaifenesin/dextromethorphan, and antitussive in ED. Please see Dr. Amor's attestation for adjustments/additions to treatment plan. Allergies Allergy/AdvReac Type Severity Reaction Status Date / Time cat dander Allergy Severe CAT Verified 08/26/24 11:27 HAIR---Swelling of Lip/Tongue/Throat Home Medications Medication Instructions Recorded Confirmed Type aspirin 81 mg tablet,delayed 81 mg PO QAM 08/07/22 10/06/24 History release (Adult Low Dose Aspirin) cyanocobalamin (vitamin B-12) 500 1,000 mcg (2 x 500 mcg) PO QAM #30 01/18/23 10/06/24 Rx mcg tablet tabs duloxetine 60 mg capsule,delayed 60 mg PO QAM #90 caps 10/29/23 10/06/24 Rx release rivaroxaban 20 mg tablet (Xarelto) 20 mg PO QPM 11/19/23 10/06/24 History sennosides 8.6 mg tablet 8.6 mg PO BID 12/15/23 10/06/24 History mirtazapine 30 mg tablet 30 mg PO HS 01/21/24 10/06/24 History nitroglycerin 0.4 mg sublingual 0.4 mg sublingual DIRECTED PRN 01/21/24 10/06/24 History tablet chest pin pravastatin 40 mg tablet 40 mg PO HS 01/21/24 10/06/24 History vitamin E 268 mg (400 unit) capsule 268 mg PO DAILY ##0 01/21/24 10/06/24 History acetaminophen 325 mg tablet 975 mg PO Q8H PRN mild pain,fever, 01/26/24 10/06/24 History or headache ferrous sulfate 325 mg (65 mg 325 mg PO DAILY #90 tabs 05/11/24 10/06/24 Rx iron) tablet sacubitril 24 mg-valsartan 26 mg 1 tab PO BID #180 tabs 05/11/24 10/06/24 Rx tablet (Entresto) gabapentin 600 mg tablet 600 mg PO TID neuropathy from 05/12/24 10/06/24 Rx severe PVD wounds 1 month #90 tabs bumetanide 0.5 mg tablet 0.5 mg PO DAILY 05/27/24 10/06/24 History sulfamethoxazole 800 1 tab PO DAILY 07/14/24 10/06/24 History mg-trimethoprim 160 mg tablet (Bactrim DS) collagenase clostridium histo. 250 1 applic topical DAILY #30 grams 07/22/24 10/06/24 Rx unit/gram topical ointment (Santyl) diclofenac sodium 1 % topical gel 2 g topical QID PRN Shoulder Pain 07/22/24 10/06/24 History glucosamine sulfate 500 mg tablet 500 mg PO QAM 07/22/24 10/06/24 History (Glucosamine) hydrocodone 5 mg-acetaminophen 325 1 tab PO Q6 PRN Moderate Pain 07/22/24 10/06/24 History mg tablet (Scale Score 5-6) melatonin 3 mg tablet 6 mg PO HS 07/22/24 10/06/24 History multivitamin 1 tab PO QAM 07/22/24 10/06/24 History omega-3 fatty acids 1,250 mg 1,250 mg PO QAM 07/22/24 10/06/24 History capsule tamsulosin 0.4 mg capsule 0.4 mg PO HS 07/22/24 10/06/24 History Lactobacillus acidophilus 1 tab PO DAILY 08/12/24 10/06/24 History cholecalciferol (vitamin D3) 10 20 mcg PO DAILY 08/12/24 10/06/24 History mcg (400 unit) tablet (Vitamin D3) folic acid 1 mg tablet 1 mg PO DAILY 08/12/24 10/06/24 History metoprolol succinate 50 mg 12.5 mg PO QAM 08/12/24 10/06/24 History tablet,extended release 24 hr netarsudil 0.02 %-latanoprost 1 drp OPB HS 08/12/24 10/06/24 History 0.005 % eye drops (Rocklatan) omeprazole 20 mg capsule,delayed 20 mg PO DAILY 08/12/24 10/06/24 History release thiamine HCl (vitamin B1) 100 mg 100 mg PO DAILY 08/12/24 10/06/24 History tablet vitamins B1 2.5 mg-B2 2.5 1 tab PO DAILY 08/12/24 10/06/24 History mg-niacin 5 mg-B12 100 mcg-protease tablet (B-Complex With B-12) amiodarone 200 mg tablet 200 mg PO QAM #30 tabs 08/19/24 10/06/24 Rx levetiracetam 250 mg tablet 250 mg PO BID #60 tabs 08/22/24 10/06/24 Rx meropenem 1 gram intravenous 1 g IV Q8H 10/06/24 10/06/24 History solution vancomycin 1.75 gram intravenous 1.75 g IV Q24H 10/06/24 10/06/24 History solution Past Med/Surg History Problem List (Updated 10/06/24 @ 23:52 by Any Cardozo PA-C) Infection due to human metapneumovirus (hMPV) Fatigue (Acute) Cough (Acute) Skin tear of left hand without complication (Acute) Idiopathic peripheral neuropathy Spinal stenosis, lumbar region with neurogenic claudication Paroxysmal atrial fibrillation Syncope (Acute) HFrEF (heart failure with reduced ejection fraction) Transaminitis Venous stasis ulcers of both lower extremities Non-pressure chronic ulcer of other part of left foot limited to breakdown of skin Non-pressure chronic ulcer of other part of right foot limited to breakdown of skin Peripheral arterial disease (Chronic) Pressure ulcer of right foot, stage 3 Chronic diastolic heart failure History of infection of total joint prosthesis of knee Atrial fibrillation History of MRSA infection Recurrent cellulitis of lower extremity (Acute) Polyneuropathy Depression Atrial flutter (Acute) Atrial fibrillation with RVR Open wound of knee (Acute) Venous ulcers of both lower extremities (Acute) Pain associated with wound Palliative care by specialist Advanced care planning/counseling discussion Back pain VRE bacteremia Ambulatory dysfunction Infection of prosthetic right knee joint Weakness (Acute) Fall (Acute) Anemia (Acute) Hypomagnesemia (Acute) Bilateral cellulitis of lower leg (Acute) Peripheral neuropathy Chronic venous stasis Cellulitis of both feet (Acute) Rheumatoid arthritis Open wound of foot Open wound of right hand (Acute) Chronic wound Lymphangitis of lower extremity Hypomagnesemia (Acute) Open wound of left upper arm (Acute) Open wound of left arm with tendon injury Gram-negative bacteremia Cellulitis of right lower extremity (Acute) Generalized weakness (Acute) Elevated procalcitonin (Acute) Acute kidney injury superimposed on chronic kidney disease (Acute) Skin tear of right upper extremity (Acute) Open wound of left foot (Acute) Open wound of right foot (Acute) Skin tear of right hand without complication (Acute) Venous ulcer of left leg (Acute) Traumatic open wound of right lower leg (Acute) Elevated LFTs MRSA bacteremia Dislocation, hip closed (Acute) Dislocation, hip, posterior Rotator cuff arthropathy of both shoulders Abrasion of right knee (Acute) Pain of right hip Prophylactic antibiotic Left shoulder pain Acquired foot deformity (Chronic) Traumatic wound (Acute) Pressure ulcer of left foot, stage 3 (Acute) Abnormal ankle brachial index (Acute) Right knee pain Non-ST elevation [place] (NSTEMI) (Acute) Leukocytosis (Acute) Myoclonus Cervical radiculopathy Neuropathy Weakness On amiodarone therapy Weakness of right hip Constipation Sepsis following procedure Rhabdomyolysis MRSA infection History of CHF (congestive heart failure) Visual disturbance Hyponatremia Hypotension Acute metabolic encephalopathy Abdominal wall abscess (Acute) HFrEF (heart failure with reduced ejection fraction) EF 40% Mar 2022, improved 55-60% August 2022 Lumbar stenosis Osteoarthritis of right knee Anxiety and depression Hypertension Coronary artery disease Atherogenic dyslipidemia Lumbar radiculopathy Lower extremity weakness Degenerative spondylolisthesis Chronic low back pain Scoliosis of lumbar region due to degenerative disease of spine in adult Dislocation of hip, right, closed (Acute) Septic joint of right knee joint COVID-19 (Acute) Incisional hernia Incarcerated intra-abdominal hernia (Acute) Adjustment disorder with mixed anxiety and depressed mood Medical History Hypoxia JEFFERY (acute kidney injury) Hypotension Hyperkalemia Lethargy Ischemic ulcer of left foot Ischemic ulcer of right foot Bilateral lower leg cellulitis PVD (peripheral vascular disease) Atrial flutter with rapid ventricular response Open wound of left lower extremity Sepsis secondary to UTI Fever Sepsis due to skin infection Sepsis Fall Infected hardware in right leg Chronic infection of right knee Severe sepsis Venous ulcer of right leg Idiopathic polyneuropathy History of immunosuppressive therapy Heart failure with preserved ejection fraction GERD (gastroesophageal reflux disease) Sepsis Septicemia due to Streptococcus pneumoniae Respiratory failure with hypoxia Hypomagnesemia Pneumonia Benign essential hypertension Lumbar stenosis Hx of staphylococcal infection 03/2022, w/"bacterial infection" at the same, in the rt. knee, occurrred during atrial fibrillation episode. "when he woke up, he couldn't walk." Atrial fibrillation episode occurred in 03/2022, taken to [facility], admitted to ICU for 1-2 weeks (was not intubated, but wasn't "awake either"), then to cardiac unit, then to rehab at [facility]; f/u dr. 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 Hx of knee surgery rt. patellar tendon repair Hx of rotator cuff surgery bilateral Hx of total knee replacement lt. Hx of total hip arthroplasty rt. History of colostomy reversal History of bowel resection for diverticulitis; w/colostomy placement for 3-4 months Hx of hernia repair near former colostomy site History of esophagogastroduodenoscopy (EGD) Hx of colonoscopy Last Colonoscopy 08/14/22, repeat 3 years in 2025 Hx of bilateral cataract extraction History of heart artery stent ~3 years ago, x2 stents, done in [place]; f/u dr guerra, [place]>will be seeing new cardio at [place] 2nd week of August 2022. History of cardiac cath ~3 years ago, SOB and "felt like throat was constricting", had "silent heart attack", x2 stents, done in [place] Family History Grandmother (Maternal) Diabetes Daughter Diabetes Father Suicide Hypertension Denies family history of Ovarian cancer Prostate cancer Myocardial infarction Breast cancer Lung cancer Colorectal cancer Stroke Social History Smoking Status: Never smoker Second Hand Exposure: No; Do You Dip or Chew Tobacco: No; Hx Alcohol Use: Yes Alcohol type: wine Alcohol Intake Frequency: 4 or More x per/Week Hx Substance Use: No Preferred Language: Albanian Communication Ability: Effective Visual Impairment: Limited Hearing Ability: Normal Personal Health Coach Required: No Beliefs That Will Affect Care: None marital status: Single Current Living Situation: Personal Care Facility Current Living Situation Comment: [facility] current occupational status: retired How many Children do You have: 2 Feels Safe at Home: Yes Safety Concerns: Feels Safe At This Time Childhood Exposure to Second-Hand Smoke: Yes Diet: regular caffeine: Yes Dental Care, Regularly: Yes Physical Activity Frequency: Does not Exercise Seatbelt Use: always Sunscreen Use: Yes Assistive Devices: Wheelchair Review of Systems Review of Systems: All systems reviewed & are unremarkable except as noted in Subjective Physical Exam Physical Exam: General: No acute distress, appears ill Skin: Warm and dry; BLE with chronic changes; LUE with PICC in place, surrounding skin non-erythematous or edematous Head: Normocephalic, atraumatic Eyes: PERRL, conjunctivae clear, sclera non-icteric ENT: External ear and ear canal without swelling; nose atraumatic; good dentition, tongue normal appearance, pharynx normal Neck: Supple, no LAD Cardio: RRR, no M/G/R, S1 and S2 normal Resp: No respiratory distress, very coarse breath sounds throughout, wheezing throughout, coughing during exam; wearing O2 via NC Abdomen: Soft, symmetric, nontender; No masses or hepatosplenomegaly; Bowel sounds normoactive MSK: No deformities; pulses palpable and equal; 2+ pitting edema BLE, with bandages over open area, none of which appearing erythematous or with discharge Neuro: Awake, alert; Sensation intact bilaterally; CN grossly intact Psych: Appropriate mood and affect; good judgement and insight. Results & Data Results & Data Vital Signs (Past 12 Hours) Vital Signs Temp Pulse Pulse Resp BP BP Pulse Ox 10/06/24 22:00 89 19 92 10/06/24 20:59 73 10/06/24 20:00 79 18 144/90 H 93 10/06/24 18:55 79 18 144/90 H 91 10/06/24 16:59 82 10/06/24 16:55 69 18 151/94 H 94 10/06/24 16:36 36.8 C 79 18 151/94 H 94 O2 Del Method O2 Flow Rate 10/06/24 22:00 Nasal Cannula 2 10/06/24 20:59 10/06/24 20:00 Room Air 10/06/24 18:55 Room Air 10/06/24 16:59 10/06/24 16:55 Room Air 10/06/24 16:36 Room Air Laboratory Results 10/06/24 10/06/24 10/06/24 19:18 18:09 17:02 WBC 6.69 RBC 4.01 L Hgb 11.7 L Hct 36.9 L MCV 92.0 MCH 29.2 MCHC 31.7 L RDW Std Deviation 57.0 H RDW Coeff of Sammie 17.1 H Plt Count 206 MPV 10.0 Immature Gran % (Auto) 0.3 Neut % (Auto) 66.7 Lymph % (Auto) 8.5 [place] % (Auto) 13.6 Eos % (Auto) 10.5 Baso % (Auto) 0.4 Neut # (Auto) 4.46 Lymph # (Auto) 0.57 L [place] # (Auto) 0.91 H Eos # (Auto) 0.70 H Baso # (Auto) 0.03 Immature Gran # (Auto) 0.02 PT 11.4 INR 1.1 Sodium 140 Potassium 4.0 TNP Chloride 104 Carbon Dioxide 31 Anion Gap 5 BUN 25 H Creatinine 0.96 Est Cr Clr Drug Dosing 83.5 eGFR 79.90 BUN/Creatinine Ratio 26.0 H Glucose 95 Calcium 8.4 L Magnesium 1.7 Total Bilirubin 0.6 AST 97 H TNP ALT 85 H Alkaline Phosphatase 89 Troponin I High Sens 30.1 H B-Natriuretic Peptide 387 H Total Protein 6.0 Albumin 3.1 L Globulin 2.9 Albumin/Globulin Ratio 1.1 Lipase 19 Urine Color Dark Yellow Urine Appearance Clear Urine pH 6.5 Ur Specific [place] 1.018 Urine Protein 1+ H Urine Glucose (UA) Negative Urine Ketones Trace H Urine Blood Negative Urine Nitrite Negative Urine Bilirubin Negative Urine Urobilinogen Negative Ur Leukocyte Esterase Negative Urine WBC (Auto) 0-5 Urine RBC (Auto) 0-2 U Hyaline Cast (Auto) 0-2 U Epithel Cells (Auto) 0-2 Urine Bacteria (Auto) None Seen Adenovirus (PCR) Not Detected B. pertussis DNA (PCR) Not Detected B.parapertussis DNA PCR Not Detected C. pneumoniae DNA (PCR) Not Detected Coronavirus OC43 (PCR) Not Detected Coronavirus HKU1 (PCR) Not Detected Coronavirus 229E (PCR) Not Detected SARS-CoV-2 (PCR) Not Detected Coronavirus NL63 (PCR) Not Detected Human Metapneumovir PCR DETECTED A Influenza Type A (PCR) Not Detected Influenza Type B (PCR) Not Detected M. pneumoniae (PCR) Not Detected Parainfluenza 1 (PCR) Not Detected Parainfluenza 2 (PCR) Not Detected Parainfluenza 3 (PCR) Not Detected Parainfluenza 4 (PCR) Not Detected RSV (PCR) Not Detected Entero/Rhino (PCR) Not Detected Diagnostic Findings Chest X-Ray 10/06/24 17:08 EXAM: XR chest 1V portable CLINICAL HISTORY: worsening cough. TECHNIQUE: An X-ray image of the chest is obtained in AP projection. 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 stable small pulmonary nodular shadow right lower lung zone. No evidence of consolidation, collapse, or focal opacities. No evidence of pleural effusion or pleural thickening. Heart and Mediastinum: borderline cardiothoracic ratio, No mediastinal widening or masses. No hilar or mediastinal lymphadenopathy. Bony Thorax: Bony thorax appears intact without fractures or deformities. Soft Tissues: Soft tissues overlying the chest wall are unremarkable. IMPRESSION: 1. Accentuated bronchovascular markings and pulmonary reticulations bilaterally are likely related to bronchitis (more prominent than the prior study). 2. No consolidation. 3. Stable small pulmonary nodular shadow in the right lower lung zone. 4. Borderline cardiothoracic ratio. Electronically signed by Darron Garcia 10-06-2024 7:13 PM Medications Administered Meropenem 1 g IV Hycodan 5 mL p.o. Guaifenesin/dextromethorphan 10 mL p.o. Bumetanide 0.5 mg p.o. Benzonatate 100 mg p.o. Albuterol 3 mL neb ECG Additional Comments: NSR, LAD, pulmonary disease pattern, nonspecific T wave abnormality 81 bpm, IA 184, QRS 114, QT/QTc 410/476, PRT 90/-36/60 Code Status & VTE Plan Code Status Full Supervising Physician Co-Signing Physician Notes I personally saw and examined the patient. I independently reviewed the labs, EKG, imaging, problem list, medication list, past medical history and family history. I verified all lubin points and agree with Any Cardozo PA-C with the following exceptions and/or additions: 78 year old male with MRSA bacteremia presents to the ER with worsening cough, shortness of breath ongoing since Thursday O/E HS RRR, no murmurs, Chest bibasal crackles, mild end expiratory wheeze, Abdo SNT, 3+ pedal edema b/l with erythema A/P Generalized weakness / human metapneumovirus / hypoxia - symptomatic treatment with hydrocodone/homatropine PRN, hypertonic saline Nebs, PT/OT, Aim O2 sats > 90% Generalized edema - Increase Bumex 1mg IV BID, monitor renal function closely, TTE August LVEF 50-55%, 1+ proteinuria PG Care Time/CCT Total # of Minutes Spent Total Time Spent with Patient: Total time spent is greater than 50% in coordination of care (as documented) at patient's floor/unit and/or counseling patient: Coding Level of Care Code 07297 INT INP/OBS CARE 3/75MIN Diagnoses Weakness R53.1 Infection due to human metapneumovirus (hMPV) B34.8 MRSA bacteremia R78.81; B95.62
[2024-10-06] MEDS: IBUPROFEN 600 MG TAB PO STA (23:47)
[2024-10-07] MEDS ORDERED: NITROGLYCERIN SL 0.4 MG/TAB TAB SL PRN (00:41)
[2024-10-07] MEDS ORDERED: VANCOMYCIN IV SCH (00:41)
[2024-10-07] MEDS ORDERED: ONDANSETRON INJ 2 MG/ML 2 ML VIAL IV PRN (00:41)
[2024-10-07] MEDS ORDERED: VANCOMYCIN CONSULT ACTIVE PRN (00:58)
[2024-10-07] MEDS: MEROPENEM 500 MG in SYRINGE 0 ML IV SCH (02:14)
[2024-10-07] MEDS: ALBUT/IPRATROP 3MG/0.5MG NEB 3 ML VIAL NEB SCH (02:17)
[2024-10-07 05:01] LABS: Hematocrit (blood only) 31.7 % (42.0-52.0); Hemoglobin 10.4 g/dl (14.0-18.0); Mean Corpuscular Hemoglobin 30.1 pg (25.0-34.0); Mean Corpuscular Hgb Conc 32.8 g/dL (32.0-36.0); Mean Corpuscular Volume 91.9 fL (80.0-100.0); Platelet Count 188 K/uL (130-400); RDW Coefficient of Variation 16.9 % (11.5-14.5); RDW Standard Deviation 56.6 fL (36.4-46.3); Red Blood Count 3.45 M/uL (4.70-6.10)
[2024-10-07 05:16] LABS: Creatinine Clr Calc Pharmacy 70.4 ml/min
[2024-10-07 06:18] LABS: Albumin Globulin Ratio 1.1 (0.9-2); Albumin Level 2.7 gm/dl (3.4-5.0); BUN Creatinine Ratio 21.1 (10-20); Bilirubin,Total 0.5 mg/dl (0.2-1.0); Calcium 8.1 mg/dl (8.6-10.3); Globulin 2.5 gm/dl (2.5-4.0); Potassium 3.9 mmol/L (3.5-5.1); Total Protein 5.2 gm/dl (6.0-8.3)
[2024-10-07] MEDS: VANCOMYCIN HCL 1,750 MG in SODIUM CHLORIDE 0.9% 500 ML IV SCH (06:48)
[2024-10-07] MEDS: SODIUM CHLOR 7% 4 ML NEB NEB SCH (07:02)
--- NOTE | 2024-10-07 07:23 | Pharmacy Report ---
Pharmacy PK ABX Note - Date of Service October 07, 2024 - Assessment and Plan Assessment 78 year old M receiving Vancomycin and Meropenem per Infectious Disease for treatment of bacteremia. * Unsure what day of therapy this is for patient. Apparently grew MRSA in bloodstream at outside facility. Had a PICC line placed on 09/02/24 and is to complete Vancomycin and Meropenem on 10/12/24. * Afebrile. No leukocytosis. SCr 1.14 mg/dL this AM (appear near baseline for patient per our records). * Respiratory biofire positive for human metapneumovirus. Plan Vancomycin * Random level this AM was 17.2 mcg/mL which is therapeutic. Predicted AUC/KARL at steady state of 523 mg/L.hr. * Maintenance dose: 1750 mg IV every 24 hours (continued from outpatient therapy) * Repeat Random level ordered for: 10/10/24 (or soon should renal fxn worsen) Meropenem * Was receiving 1000 mg IV every 8 hours as outpatient * Converted to 500 mg IV every 6 hours at [facility] per policy Pharmacy will continue to follow and will adjust dose/frequency as necessary. Thank you. Pharmacy has transitioned to AUC monitoring for vancomycin. AUC/KARL is the preferred PK/PD target and is associated with decreased risk of nephrotoxicity compared to traditional trough targets.
[2024-10-07] MEDS: AMIODARONE 200 MG TAB PO SCH (08:08)
[2024-10-07] MEDS: ASPIRIN 81 MG ECTAB PO SCH (08:09)
[2024-10-07] MEDS: BUMETANIDE 1 MG in SYRINGE 0 ML IV SCH (08:09)
[2024-10-07] MEDS: CYANOCOBALAMIN (B-12) 500 MCG TABLET PO SCH (08:10)
[2024-10-07] MEDS: FERROUS SULFATE 325 MG TAB PO SCH (08:10)
[2024-10-07] MEDS: DULoxetine HCL 60 MG CAP PO SCH (08:10)
[2024-10-07] MEDS: CHOLECALCIFEROL 10 MCG (400 UNITS) TAB PO SCH (08:10)
[2024-10-07] MEDS: GABAPENTIN 600 MG TAB PO SCH (08:11)
[2024-10-07] MEDS: GLUCOSAMINE SULFATE 500 MG CAP PO SCH (08:11)
[2024-10-07] MEDS: levETIRAcetam 250 MG TAB PO SCH (08:11)
[2024-10-07] MEDS: FOLIC ACID 1 MG TAB PO SCH (08:11)
[2024-10-07] MEDS: VALSARTAN/SACUBITRIL 26/24MG TAB PO SCH (08:12)
[2024-10-07] MEDS: METOPROLOL SUCC 50MG EXT REL TAB PO SCH (08:12)
[2024-10-07] MEDS: THIAMINE HCL 100 MG TAB PO SCH (08:19)
[2024-10-07] MEDS: PANTOprazole 40 MG TAB PO SCH (08:20)
[2024-10-07] MEDS: SENNA 8.6 MG TAB PO SCH (09:32)
[2024-10-07] MEDS: COLLAGENASE OINT 30 GM TUBE TOP SCH (10:24)
[2024-10-07] MEDS ORDERED: methylPREDNISolone 125 MG/2 ML VIAL IV STA (10:55)
[2024-10-07] MEDS: OPTIRAY 320 100ml IV ONE (11:13)
[2024-10-07] MEDS: guaiFENesin 600 MG TABCR PO SCH (11:21)
[2024-10-07] MEDS: methylPREDNISolone 60 MG in SYRINGE 0 ML IV STA (11:58)
--- NOTE | 2024-10-07 12:21 | CT Scan Report ---
CT soft tissue neck w con HISTORY: 78 years-old Male check for airway narrowing acute dysphagia COMPARISON: CT cervical spine 02/12/2023 TECHNIQUE: Multiple axial CT images of the soft tissues of the neck were obtained with IV contrast. A dose lowering technique was used consistent with the principals of RYAN. FINDINGS: A left-sided PICC is partially imaged. Atherosclerosis of the carotid bulbs without significant steno sis. No acute intracranial abnormality. 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 Prior bilateral lens repair. Streak artifact from dental amalga m hardware limits the study. 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 Intralobular septal thickening of the lungs with a few right upper lobe ground glass densities measuring up to 2.3 cm. No dominant thyroid nodule. No lymphadenopathy, fluid collections or significant inflammatory changes . Unremarkable parotid and submandibular glands. Glottis and subglottic airway is patent. Multilevel degenerative changes of the cervical spine. The mastoid air cells and middle ear cavities are clear. Mild to moderate mucosal thickening of the paranasal sinuses. IMPRESSION: 1. No acute inflammatory changes, lymphadenopathy or fluid collections identified within the soft tis sues of the neck. 2. Patent airway. 3. Intralobular septal thickening with patchy right upper lobe groundglass opacities, likely infectio us or inflammatory. 4. Mild to moderate paranasal sinus disease. ACT 112: Negative or not required by law. The above report was generated using voice recognition software. It may contain grammatical, syntax o r spelling errors. Electronically signed by: Geo Clayton M.D. 10/07/2024 12:18 PM
[2024-10-07] MEDS: LATANOPROST 0.005% OP SOLN 2.5 ML BTL OP SCH (20:46)
[2024-10-07] MEDS: MIRTAZAPINE TAB 15 MG TAB PO SCH (20:47)
[2024-10-07] MEDS: MELATONIN 3 MG TAB PO SCH (20:47)
[2024-10-07] MEDS: RIVAROXABAN 20 MG TAB PO SCH (20:48)
[2024-10-07] MEDS: PRAVASTATIN SOD 40 MG TAB PO SCH (20:48)
[2024-10-07] MEDS: TAMSULOSIN HCL 0.4 MG CAP PO SCH (20:49)
[2024-10-07] MEDS: ACETAMINOPHEN 325 MG TAB PO PRN (21:13)
--- NOTE | 2024-10-07 22:51 | Hospitalist Progress Note ---
Date of Service October 07, 2024 Assessment & Plan (1) Weakness: (2) Infection due to human metapneumovirus (hMPV): (3) MRSA bacteremia: Plan 78-year-old male PMHx HTN, dyslipidemia, anemia, A-fib, anxiety with depression, CAD, HFrEF, GERD, RA, urinary incontinence, syncope, LEONARD, myoclonus, and recurrent UTI presenting for increased cough, headache, and vomiting 1 week [employer]. ED evaluation reveals no leukocytosis, H&H 11.7/36.9; PT/INR WNL; CMP BUN 25, ratio 26, calcium 8.4, AST 97, ALT 85; troponin 30.1, pending repeat; BNP 384, albumin 3.17: BioFire positive for metapneumovirus; CXR accentuated bronchovascular markings and pulmonary reticulation bilaterally related to bronchitis, no consolidation, stable small pulmonary nodule shadow in RLL; EKG NSR, LAD, pulmonary disease pattern, nonspecific T wave abnormality at 81 bpm.; Provided with meropenem 1 g IV, and sounds in 8, bumetanide, albuterol, guaifenesin/dextromethorphan, and antitussive in ED. #Weakness/Human metapneumovirus Presenting with generalized weakness and associated coughing, post-tussive vomiting, and dizziness worsening over the last 7 days [employer], after d/c from rehab facility. Unable to sleep at night and becoming very SOB with coughing episodes. Worsening since initial start. Pt is on antibiotics for known infection, has been taking as prescribed. Suspect weakness 2/2 viral illness. - CBC without leukocytosis; BMP CO2 31, anion gap 5; BNP 387 - CBC am - Biofire (+) human metapneumovirus -- contact precautions - CXR exaggerated bronchovascular markings and pulmonary reticulations bilaterally likely related to bronchitis, stable small pulmonary nodule in RLL - EKG appears normal sinus with pulmonary disease pattern at 81 bpm - given severe cough and concern for stridor will order one dose of IV corticosteroids, ordered CT scan of neck to assess for tightening of airway. - Hypertonic saline nebs - DuoNebs lenny - No additional abx #MRSA bacteremia/recurrent R knee MRSA PJI PICC line placed 09/02 for long-term antibiotics, on vancomycin and meropenem until 10/12/2024. - Vancomycin 1.75 g every 24 hours IV - continue - Meropenem 100 mg every 8 hours IV - continue - HELD prophylactic bactrim at admission given on above abx - No ID consult at time of admission however, low threshold to add consult given prior growths #HFrEF- Daily weights, I+Os; Bumex 0.5mg, Entresto - Will increase bumex to 1mg BID17 IV at admission given significant edema BLE, adjust as appropriate #NICOLÁS- Ferrous sulfate, folic acid, H/H 11.7/36.9- CBC am #Recurrent MDR UTI- Most recent urine culture positive for ESBL Proteus and VRE E faecalis; UA currently appearing uninfected but on antibiotic, d/c from [facility] #PAF/flutter- Amiodarone 200mg, rivaroxaban - continue #LEONARD- CPAP at bedtime if pt can tolerate #Transaminitis- History of, thought to fluctuate with infections; AST/ALT 97/85, no abdominal pain, 1 episode vomiting following coughing spell #HTN- Metoprolol succinate 12.5mg - continue #Recurrent foot ulcer- R foot, wound care (dressed with Aquacel Ag and Mepilex with changes every other day), gabapentin, hydro/acetaminophen; wound care consulted #RA- No longer on Rinvoq since 04/2024 #Depression/Anxiety- Duloxetine, mirtazapine - continue #GERD- Omeprazole - continue #Dyslipidemia- Pravastatin - continue Dispo: Admit, med/tele VTE Prophylaxis: Rivaroxaban Admission and Anticipated Discharge Date Admission Date: October 06, 2024 Subjective 78 yo male reports having a severe cough. Patient states having a tickle in his throat. Physical Exam Physical Exam: General: No acute distress, appears ill Head: Normocephalic, atraumatic Eyes: PERRL, conjunctivae clear, sclera non-icteric ENT: External ear and ear canal without swelling; nose atraumatic; good dentition, tongue normal appearance, pharynx normal Neck: Supple, no LAD Cardio: RRR, no M/G/R, S1 and S2 normal Resp: No respiratory distress, very coarse breath sounds throughout however this appears to be more transmitted from his throat, coughing during exam; Results & Data Results & Data Vital Signs (Past 12 Hours) Vital Signs Temp Pulse Pulse Pulse Resp BP BP 10/07/24 22:49 67 18 10/07/24 19:25 74 18 10/07/24 19:00 36.8 C 76 24 153/88 H 10/07/24 16:33 36.5 C 71 18 129/82 10/07/24 14:34 67 17 10/07/24 13:41 67 10/07/24 11:57 73 10/07/24 11:37 10/07/24 11:37 36.8 C 72 18 134/81 10/07/24 10:57 115 H 25 H 137/79 Pulse Ox O2 Del Method O2 Flow Rate 10/07/24 22:49 93 Nasal Cannula 2 10/07/24 19:25 96 Nasal Cannula 2 10/07/24 19:00 96 Nasal Cannula 3 10/07/24 16:33 96 Nasal Cannula 3 10/07/24 14:34 96 Nasal Cannula 2 10/07/24 13:41 10/07/24 11:57 10/07/24 11:37 Nasal Cannula 2 10/07/24 11:37 94 Nasal Cannula 2 10/07/24 10:57 94 Nasal Cannula PG Care Time/CCT Total # of Minutes Spent Total Time Spent with Patient: Total time spent is greater than 50% in coordination of care (as documented) at patient's floor/unit and/or counseling patient: Coding Level of Care Code 30260 SUB INP/OBS CARE 3/50MIN Diagnoses Weakness R53.1 Infection due to human metapneumovirus (hMPV) B34.8 MRSA bacteremia R78.81; B95.62
[2024-10-08 06:24] LABS: Hemoglobin 12.7 g/dl (14.0-18.0); Mean Corpuscular Hemoglobin 29.7 pg (25.0-34.0); Mean Corpuscular Hgb Conc 32.6 g/dL (32.0-36.0); Mean Corpuscular Volume 91.1 fL (80.0-100.0); Platelet Count 230 K/uL (130-400); RDW Coefficient of Variation 16.7 % (11.5-14.5); RDW Standard Deviation 55.5 fL (36.4-46.3); Red Blood Count 4.28 M/uL (4.70-6.10); White Blood Count 7.76 K/ul (4.8-10.8)
[2024-10-08 06:57] LABS: Albumin Level 3.2 gm/dl (3.4-5.0); BUN Creatinine Ratio 21.4 (10-20); Bilirubin,Total 0.5 mg/dl (0.2-1.0); C Reactive Protein 12.49 mg/dl (0-0.5); Calcium 8.3 mg/dl (8.6-10.3); Creatinine Clr Calc Pharmacy 70.6 ml/min; Globulin 3.3 gm/dl (2.5-4.0); Potassium 3.9 mmol/L (3.5-5.1); Total Protein 6.5 gm/dl (6.0-8.3)
[2024-10-08] MEDS: COUGH DROP (SUGAR FREE) LOZ 24 LOZ/1 BOX BUCCAL PRN (10:14)
[2024-10-08] MEDS: HYDROcodone/HOMATROPINE SYRUP 5MG/1.5MG 5ML UDP PO PRN (10:15)
[2024-10-08] MEDS ORDERED: MICONAZOLE NITRATE POWDER 85 GM EXT PRN (15:10)
--- NOTE | 2024-10-08 19:03 | Hospitalist Progress Note ---
Date of Service October 08, 2024 Assessment & Plan (1) Weakness: (2) Infection due to human metapneumovirus (hMPV): (3) MRSA bacteremia: Plan 78-year-old male PMHx HTN, dyslipidemia, anemia, A-fib, anxiety with depression, CAD, HFrEF, GERD, RA, urinary incontinence, syncope, LEONARD, myoclonus, and recurrent UTI presenting for increased cough, headache, and vomiting 1 week [employer]. ED evaluation reveals no leukocytosis, H&H 11.7/36.9; PT/INR WNL; CMP BUN 25, ratio 26, calcium 8.4, AST 97, ALT 85; troponin 30.1, pending repeat; BNP 384, albumin 3.17: BioFire positive for metapneumovirus; CXR accentuated bronchovascular markings and pulmonary reticulation bilaterally related to bronchitis, no consolidation, stable small pulmonary nodule shadow in RLL; EKG NSR, LAD, pulmonary disease pattern, nonspecific T wave abnormality at 81 bpm.; Provided with meropenem 1 g IV, and sounds in 8, bumetanide, albuterol, guaifenesin/dextromethorphan, and antitussive in ED. #Weakness/Human metapneumovirus Presenting with generalized weakness and associated coughing, post-tussive vomiting, and dizziness worsening over the last 7 days [employer], after d/c from rehab facility. Unable to sleep at night and becoming very SOB with coughing episodes. Worsening since initial start. Pt is on antibiotics for known infection, has been taking as prescribed. Suspect weakness 2/2 viral illness. - CBC without leukocytosis; BMP CO2 31, anion gap 5; BNP 387 - CBC am - Biofire (+) human metapneumovirus -- contact precautions - CXR exaggerated bronchovascular markings and pulmonary reticulations bilaterally likely related to bronchitis, stable small pulmonary nodule in RLL - EKG appears normal sinus with pulmonary disease pattern at 81 bpm - given severe cough and concern for stridor on 10/07 ordered one dose of IV corticosteroids, holding further corticosteroids as not recommended for HMPV -CT scan of neck to assess for tightening of airway was negative. - Hypertonic saline nebs - DuoNebs lenny -added tessalon perles for PM so patient can rest -added magic mouthwash PRN continue supportie care - No additional abx #MRSA bacteremia/recurrent R knee MRSA PJI PICC line placed 09/02 for long-term antibiotics, on vancomycin and meropenem until 10/12/2024. - Vancomycin 1.75 g every 24 hours IV - continue - Meropenem 100 mg every 8 hours IV - continue - HELD prophylactic bactrim at admission given on above abx - No ID consult at time of admission however, low threshold to add consult given prior growths #Pressure ulcer of right foot, stage 3" and "Non-pressure chronic ulcer of other part of left foot limited to breakdown of skin, Non-pressure chronic ulcer of other part of right foot limited to breakdown of skin continue current wound care appears stable #HFrEF- Daily weights, I+Os; Bumex 0.5mg, Entresto - Will increase bumex to 1mg BID17 IV at admission given significant edema BLE, adjust as appropriate #NIOCLÁS- Ferrous sulfate, folic acid, H/H 11.7/36.9- CBC am #Recurrent MDR UTI- Most recent urine culture positive for ESBL Proteus and VRE E faecalis; UA currently appearing uninfected but on antibiotic, d/c from [facility] #PAF/flutter- Amiodarone 200mg, rivaroxaban - continue #LEONARD- CPAP at bedtime if pt can tolerate #Transaminitis- History of, thought to fluctuate with infections; AST/ALT 97/85, no abdominal pain, 1 episode vomiting following coughing spell #HTN- Metoprolol succinate 12.5mg - continue #Recurrent foot ulcer- R foot, wound care (dressed with Aquacel Ag and Mepilex with changes every other day), gabapentin, hydro/acetaminophen; wound care consulted #RA- No longer on Rinvoq since 04/2024 #Depression/Anxiety- Duloxetine, mirtazapine - continue #GERD- Omeprazole - continue #Dyslipidemia- Pravastatin - continue Dispo: Admit, med/tele VTE Prophylaxis: Rivaroxaban Admission and Anticipated Discharge Date Admission Date: October 06, 2024 Subjective Patient continues to complain of a barking cough. Physical Exam Physical Exam: General: No acute distress Head: Normocephalic, atraumatic Eyes: PERRL, conjunctivae clear, sclera non-icteric ENT: External ear and ear canal without swelling; nose atraumatic; good dentition, tongue normal appearance, pharynx normal Neck: Supple, no LAD Cardio: RRR, no M/G/R, S1 and S2 normal Resp: No respiratory distress, very coarse breath sounds throughout however this appears to be more transmitted from his throat, coughing during exam; Results & Data Results & Data Vital Signs (Past 12 Hours) Vital Signs Temp Pulse Pulse Resp BP Pulse Ox O2 Del Method 10/08/24 16:23 36.9 C 88 16 104/62 91 Nasal Cannula 10/08/24 16:00 88 10/08/24 14:37 86 20 95 Nasal Cannula 10/08/24 12:28 36.6 C 84 20 110/59 L 95 Room Air 10/08/24 11:14 81 18 91 Nasal Cannula 10/08/24 08:07 36.7 C 76 20 148/90 H 90 Room Air 10/08/24 08:02 74 20 84 L Room Air 10/08/24 08:00 70 O2 Flow Rate 10/08/24 16:23 2 10/08/24 16:00 10/08/24 14:37 2 10/08/24 12:28 10/08/24 11:14 2 10/08/24 08:07 10/08/24 08:02 10/08/24 08:00 PG Care Time/CCT Total # of Minutes Spent Total Time Spent with Patient: Total time spent is greater than 50% in coordination of care (as documented) at patient's floor/unit and/or counseling patient: Coding Level of Care Code 89840 SUB INP/OBS CARE 3/50MIN Diagnoses Weakness R53.1 Infection due to human metapneumovirus (hMPV) B34.8 MRSA bacteremia R78.81; B95.62
[2024-10-08] MEDS: FIRST - Mouthwash BLM 5 ML UDP PO ONE (21:25)
[2024-10-08] MEDS: HYDROCODONE/ACETAMOPHEN 5/325MG TAB PO PRN (21:25)
[2024-10-08] MEDS: BENZONATATE 100 MG CAPSULE PO SCH (21:25)
--- NOTE | 2024-10-09 08:02 | Hospitalist Progress Note ---
Date of Service October 09, 2024 Assessment & Plan (1) Weakness: (2) Infection due to human metapneumovirus (hMPV): (3) MRSA bacteremia: Plan 78-year-old male PMHx HTN, dyslipidemia, anemia, A-fib, anxiety with depression, CAD, HFrEF, GERD, RA, urinary incontinence, syncope, LEONARD, myoclonus, and recurrent UTI presenting for increased cough, headache, and vomiting 1 week [employer]. ED evaluation reveals no leukocytosis, H&H 11.7/36.9; PT/INR WNL; CMP BUN 25, ratio 26, calcium 8.4, AST 97, ALT 85; troponin 30.1, pending repeat; BNP 384, albumin 3.17: BioFire positive for metapneumovirus; CXR accentuated bronchovascular markings and pulmonary reticulation bilaterally related to bronchitis, no consolidation, stable small pulmonary nodule shadow in RLL; EKG NSR, LAD, pulmonary disease pattern, nonspecific T wave abnormality at 81 bpm.; Provided with meropenem 1 g IV, and vancomycin, bumetanide, albuterol, guaifenesin/dextromethorphan, and antitussive in ED. #Weakness/Human metapneumovirus Presenting with generalized weakness and associated coughing, post-tussive vomiting, and dizziness worsening over the last 7 days [employer], after d/c from rehab facility. Unable to sleep at night and becoming very SOB with coughing episodes. Worsening since initial start. Pt is on antibiotics for known infection, has been taking as prescribed. Suspect weakness 2/2 viral illness. - CBC without leukocytosis; BMP CO2 31, anion gap 5; BNP 387 - CBC am - Biofire (+) human metapneumovirus -- contact precautions - CXR exaggerated bronchovascular markings and pulmonary reticulations bilaterally likely related to bronchitis, stable small pulmonary nodule in RLL - EKG appears normal sinus with pulmonary disease pattern at 81 bpm - given severe cough and concern for stridor on 10/07 ordered one dose of IV corticosteroids, holding further corticosteroids as not recommended for HMPV - CT scan of neck to assess for tightening of airway was negative. - Hypertonic saline nebs (cough worse with it, so will discontinue) - DuoNeb lenny , added budesonide nebs BID - added Tessalon Perles for PM so patient can rest - added guaifenesin/codeine to help - added magic mouthwash PRN continue supportive care - No additional abx #MRSA bacteremia/recurrent R knee MRSA PJI PICC line placed 09/02 for long-term antibiotics, on vancomycin and meropenem until 10/12/2024. - Vancomycin 1.75 g every 24 hours IV - continue - Meropenem 100 mg every 8 hours IV - continue - HELD prophylactic bactrim at admission given on above abx - No ID consult at time of admission however, low threshold to add consult given prior growths #Pressure ulcer of right foot, stage 3" and "Non-pressure chronic ulcer of other part of left foot limited to breakdown of skin, Non-pressure chronic ulcer of other part of right foot limited to breakdown of skin continue current wound care appears stable #HFrEF- Daily weights, I+Os; Bumex 0.5mg, Entresto - Will increase bumex to 1mg BID17 IV at admission given significant edema BLE, adjust as appropriate #NICOLÁS- Ferrous sulfate, folic acid, H/H 11.7/36.9- CBC am #Recurrent MDR UTI- Most recent urine culture positive for ESBL Proteus and VRE E faecalis; UA currently appearing uninfected but on antibiotic, d/c from [facility] #PAF/flutter- Amiodarone 200mg, rivaroxaban - continue #LEONARD- CPAP at bedtime if pt can tolerate #Transaminitis- History of, thought to fluctuate with infections; AST/ALT 97/85, no abdominal pain, 1 episode vomiting following coughing spell #HTN- Metoprolol succinate 12.5mg - continue #Recurrent foot ulcer- R foot, wound care (dressed with Aquacel Ag and Mepilex with changes every other day), gabapentin, hydro/acetaminophen; wound care consulted #RA- No longer on Rinvoq since 04/2024 #Depression/Anxiety- Duloxetine, mirtazapine - continue #GERD- Omeprazole - continue #Dyslipidemia- Pravastatin - continue Dispo: pending clinical improvement VTE Prophylaxis: Rivaroxaban Admission and Anticipated Discharge Date Admission Date: October 06, 2024 Subjective continues to have coarse coughing episodes he notes that his cough is the same he also has some wheezing as well. Review of Systems Review of Systems: Comprehensive ROS neg Physical Exam Physical Exam: Gen: NAD HEENT: NC/AT. MMM Lungs: expiratory wheezing, coarse cough (not productive, though sounds congested during the initial part of the cough) CVS: s1s2nl, RRR Abd: soft, NT, nl bowel sounds Neuro: awake, alert Results & Data Results & Data Vital Signs (Past 12 Hours) Vital Signs Temp Pulse Pulse Pulse Resp BP Pulse Ox 10/09/24 07:35 71 18 96 10/09/24 07:23 70 10/09/24 07:15 36.4 C L 75 18 112/73 94 10/09/24 03:10 36.6 C 71 20 118/76 96 10/08/24 22:22 85 10/08/24 22:00 36.9 C 85 18 88/52 L 95 10/08/24 21:20 10/08/24 20:00 36.7 C 86 20 111/72 93 O2 Del Method O2 Flow Rate 10/09/24 07:35 Nasal Cannula 2 10/09/24 07:23 10/09/24 07:15 Nasal Cannula 3 10/09/24 03:10 Nasal Cannula 2 10/08/24 22:22 10/08/24 22:00 Nasal Cannula 10/08/24 21:20 Nasal Cannula 2 10/08/24 20:00 Nasal Cannula 2 PG Care Time/CCT Total # of Minutes Spent Total Time Spent with Patient: Total time spent is greater than 50% in coordination of care (as documented) at patient's floor/unit and/or counseling patient: Coding Level of Care Code 19260 SUB INP/OBS CARE 2/35MIN Diagnoses Weakness R53.1 Infection due to human metapneumovirus (hMPV) B34.8 MRSA bacteremia R78.81; B95.62
--- NOTE | 2024-10-09 09:02 | Electrocardiogram Report ---
Test Reason : Blood Pressure : */* mmHG Vent. Rate : 81 BPM Atrial Rate : 81 BPM P-R Int : 184 ms QRS Dur : 114 ms QT Int : 410 ms P-R-T Axes : 90 -36 60 degrees QTcB Int : 476 ms Normal sinus rhythm Left axis deviation Non-specific intra-ventricular conduction delay Pulmonary disease pattern Nonspecific T wave abnormality Low voltage QRS Abnormal ECG When compared with ECG of 12-Aug-2024 12:03, Nonspecific T wave abnormality now evident in Lateral leads Confirmed by Patricia Kenyon (Arpita) on 10/09/2024 9:02:13 AM Referred By: Kelli Middleton Confirmed By: Patricia Kenyon
[2024-10-09] MEDS: ALBUT/IPRATROP 3MG/0.5MG NEB 3 ML VIAL NEB SCH (19:42)
[2024-10-09] MEDS: BUDESONIDE 0.25 MG/2 ML VIAL (PULMICORT) NEB SCH (19:46)
[2024-10-10] MEDS: VANCOMYCIN LEVEL ONE (05:44)
[2024-10-10 06:04] LABS: Hematocrit (blood only) 40.2 % (42.0-52.0); Hemoglobin 12.8 g/dl (14.0-18.0); Mean Corpuscular Hemoglobin 29.8 pg (25.0-34.0); Mean Corpuscular Hgb Conc 31.8 g/dL (32.0-36.0); Mean Corpuscular Volume 93.5 fL (80.0-100.0); Mean Platelet Volume 9.6 fL (9.4-12.4); Platelet Count 206 K/uL (130-400); RDW Coefficient of Variation 16.8 % (11.5-14.5); RDW Standard Deviation 57.6 fL (36.4-46.3); White Blood Count 6.78 K/ul (4.8-10.8)
[2024-10-10 06:20] LABS: BUN Creatinine Ratio 28.2 (10-20); Calcium 8.1 mg/dl (8.6-10.3); Creatinine Clr Calc Pharmacy 66.8 ml/min; Magnesium 1.7 mg/dl (1.7-2.4); Phosphorus 4.5 mg/dl (2.5-4.9); Potassium 4.1 mmol/L (3.5-5.1)
--- NOTE | 2024-10-10 08:14 | Pharmacy Report ---
Pharmacy PK ABX Note - Date of Service October 10, 2024 - Assessment and Plan Assessment 78 year old M receiving Vancomycin and Meropenem per Infectious Disease for treatment of bacteremia. * Unsure what day of therapy this is for patient. Apparently grew MRSA in bloodstream at outside facility. Had a PICC line placed on 09/02/24 and is to complete Vancomycin and Meropenem on 10/12/24. * Afebrile. No leukocytosis. SCr 1.17 mg/dL this AM (appear near baseline for patient per our records). * Respiratory biofire positive for human metapneumovirus. Plan Vancomycin * Random level this AM was 17.1 mcg/mL which is therapeutic. Predicted AUC/KARL at is greater than 600 mg/L.hr. * Decrease dose to 1500 mg IV every 24 hours for remaining 2 doses to prevent toxicity. * No further labs unless patient's therapy extended beyond 10/12/24. Meropenem * Was receiving 1000 mg IV every 8 hours as outpatient * Converted to 500 mg IV every 6 hours at [facility] per policy, completes therapy 10/12/24. Pharmacy will continue to follow and will adjust dose/frequency as necessary. Thank you. Pharmacy has transitioned to AUC monitoring for vancomycin. AUC/KARL is the preferred PK/PD target and is associated with decreased risk of nephrotoxicity compared to traditional trough targets.
[2024-10-10 09:35] LABS: C Reactive Protein 7.02 mg/dl (0-0.5)
--- NOTE | 2024-10-10 11:28 | XRay Report ---
XR chest 2V PA/lateral CLINICAL HISTORY: Hypoxia. COMPARISON STUDY: Chest radiograph October 06, 2024. FINDINGS: Low lung volumes are again noted with elevation of the left hemidiaphragm. Linear left basi lar densities represent atelectasis. Mild right basilar opacity favors atelectasis. There is no evide nce for pulmonary edema. Cardiomediastinal silhouette is stable. There is no pneumothorax or pleural effusion. IMPRESSION: 1. No change in low lung volumes. Right basilar opacity favors atelectasis although an infectious pro cess could appear similar. 2. Linear left basilar density consistent with atelectasis. ACT 112: Negative or not required by law. Electronically signed by: Jong Nascimento M.D. 10/10/2024 11:25 AM
[2024-10-10] MEDS: DICLOFENAC SOD 1% GEL 100 GM TUBE EXT PRN (13:29)
[2024-10-10 14:45] LABS: Base Excess VBG 9.2 mEq/L; HCO3 VBG 37 mmol/L; Oxygen Saturation VBG 86.9 %; PCO2 VBG 66 mmHg (38-50); PO2 VBG 58 mmHg; pH VBG 7.36 (7.36-7.41)
--- NOTE | 2024-10-10 18:41 | Hospitalist Progress Note ---
Date of Service October 10, 2024 Assessment & Plan (1) Weakness: (2) Infection due to human metapneumovirus (hMPV): (3) MRSA bacteremia: Plan 78-year-old male PMHx HTN, dyslipidemia, anemia, A-fib, anxiety with depression, CAD, HFrEF, GERD, RA, urinary incontinence, syncope, LEONARD, myoclonus, and recurrent UTI presenting for increased cough, headache, and vomiting 1 week [employer]. ED evaluation reveals no leukocytosis, H&H 11.7/36.9; PT/INR WNL; CMP BUN 25, ratio 26, calcium 8.4, AST 97, ALT 85; troponin 30.1, pending repeat; BNP 384, albumin 3.17: BioFire positive for metapneumovirus; CXR accentuated bronchovascular markings and pulmonary reticulation bilaterally related to bronchitis, no consolidation, stable small pulmonary nodule shadow in RLL; EKG NSR, LAD, pulmonary disease pattern, nonspecific T wave abnormality at 81 bpm.; Provided with meropenem 1 g IV, and vancomycin, bumetanide, albuterol, guaifenesin/dextromethorphan, and antitussive in ED. #Weakness/Human metapneumovirus Presenting with generalized weakness and associated coughing, post-tussive vomiting, and dizziness worsening over the last 7 days [employer], after d/c from rehab facility. Unable to sleep at night and becoming very SOB with coughing episodes. Worsening since initial start. Pt is on antibiotics for known infection, has been taking as prescribed. Suspect weakness 2/2 viral illness. - CBC without leukocytosis; BMP CO2 31, anion gap 5; BNP 387 - CBC am - Biofire (+) human metapneumovirus -- contact precautions - CXR exaggerated bronchovascular markings and pulmonary reticulations bilaterally likely related to bronchitis, stable small pulmonary nodule in RLL - EKG appears normal sinus with pulmonary disease pattern at 81 bpm - given severe cough and concern for stridor on 10/07 ordered one dose of IV corticosteroids, holding further corticosteroids as not recommended for HMPV - CT scan of neck to assess for tightening of airway was negative. - Hypertonic saline nebs (cough worse with it, so will discontinue) - DuoNeb lenny , added budesonide nebs BID - added Tessalon Perles for PM so patient can rest - added guaifenesin/codeine to help - added magic mouthwash PRN continue supportive care - No additional abx -Now with respiratory acidosis, will cut back on his nasal cannula with goal of oxygen being 88% ordered VBG and placed on BIPAP in the evening. #MRSA bacteremia/recurrent R knee MRSA PJI PICC line placed 09/02 for long-term antibiotics, on vancomycin and meropenem until 10/12/2024. - Vancomycin 1.75 g every 24 hours IV - continue - Meropenem 100 mg every 8 hours IV - continue - HELD prophylactic bactrim at admission given on above abx -will consult infectious disease: for assistance given that patient antibiotic course is ending. #Pressure ulcer of right foot, stage 3" and "Non-pressure chronic ulcer of other part of left foot limited to breakdown of skin, Non-pressure chronic ulcer of other part of right foot limited to breakdown of skin continue current wound care appears stable #HFrEF- Daily weights, I+Os; Bumex 0.5mg, Entresto - Will increase bumex to 1mg BID17 IV at admission given significant edema BLE, adjust as appropriate #NICOLÁS- Ferrous sulfate, folic acid, H/H 11.7/36.9- CBC am #Recurrent MDR UTI- Most recent urine culture positive for ESBL Proteus and VRE E faecalis; UA currently appearing uninfected but on antibiotic, d/c from [facility] #PAF/flutter- Amiodarone 200mg, rivaroxaban - continue #LEONARD- CPAP at bedtime if pt can tolerate #Transaminitis- History of, thought to fluctuate with infections; AST/ALT 97/85, no abdominal pain, 1 episode vomiting following coughing spell #HTN- Metoprolol succinate 12.5mg - continue #Recurrent foot ulcer- R foot, wound care (dressed with Aquacel Ag and Mepilex with changes every other day), gabapentin, hydro/acetaminophen; wound care consulted #RA- No longer on Rinvoq since 04/2024 #Depression/Anxiety- Duloxetine, mirtazapine - continue #GERD- Omeprazole - continue #Dyslipidemia- Pravastatin - continue Dispo: pending clinical improvement VTE Prophylaxis: Rivaroxaban Admission and Anticipated Discharge Date Admission Date: October 06, 2024 Subjective Patient appears more drowsy today. Physical Exam Physical Exam: General: No acute distress Head: Normocephalic, atraumatic Eyes: PERRL, conjunctivae clear, sclera non-icteric ENT: External ear and ear canal without swelling; nose atraumatic; good dentition, tongue normal appearance, pharynx normal Neck: Supple, no LAD Cardio: RRR, no M/G/R, S1 and S2 normal Resp: No respiratory distress, very coarse breath sounds throughout however this appears to be more transmitted from his throat, coughing during exam; Results & Data Results & Data Vital Signs (Past 12 Hours) Vital Signs Temp Pulse Pulse Pulse Resp BP Pulse Ox 10/10/24 16:36 37.3 C 85 20 100/60 91 10/10/24 13:05 76 10/10/24 12:26 68 18 96 10/10/24 12:13 36.8 C 73 20 128/70 93 10/10/24 12:06 10/10/24 07:49 36.6 C 81 16 124/67 92 10/10/24 07:05 78 18 90 O2 Del Method O2 Flow Rate 10/10/24 16:36 Nasal Cannula 2 10/10/24 13:05 10/10/24 12:26 Nasal Cannula 3 10/10/24 12:13 Nasal Cannula 3 10/10/24 12:06 Nasal Cannula 3 10/10/24 07:49 Nasal Cannula 3 10/10/24 07:05 Room Air PG Care Time/CCT Total # of Minutes Spent Total Time Spent with Patient: Total time spent is greater than 50% in coordination of care (as documented) at patient's floor/unit and/or counseling patient: Coding Level of Care Code 48052 SUB INP/OBS CARE 3/50MIN Diagnoses Weakness R53.1 Infection due to human metapneumovirus (hMPV) B34.8 MRSA bacteremia R78.81; B95.62
[2024-10-11] MEDS: VANCOMYCIN HCL 1,500 MG in SODIUM CHLORIDE 0.9% 500 ML IV SCH (05:21)
[2024-10-11 05:49] LABS: Base Excess VBG 12.4 mEq/L; HCO3 VBG 40 mmol/L; Oxygen Saturation VBG 68.8 %; PCO2 VBG 63 mmHg (38-50); PO2 VBG 38 mmHg; pH VBG 7.41 (7.36-7.41)
[2024-10-11 05:54] LABS: Hemoglobin 11.4 g/dl (14.0-18.0); Mean Corpuscular Hemoglobin 29.3 pg (25.0-34.0); Mean Corpuscular Hgb Conc 31.7 g/dL (32.0-36.0); Mean Corpuscular Volume 92.5 fL (80.0-100.0); Mean Platelet Volume 9.8 fL (9.4-12.4); Platelet Count 213 K/uL (130-400); RDW Coefficient of Variation 16.4 % (11.5-14.5); RDW Standard Deviation 55.8 fL (36.4-46.3); Red Blood Count 3.89 M/uL (4.70-6.10); White Blood Count 6.72 K/ul (4.8-10.8)
[2024-10-11 06:15] LABS: BUN Creatinine Ratio 27.2 (10-20); Calcium 7.9 mg/dl (8.6-10.3); Creatinine Clr Calc Pharmacy 68.5 ml/min
[2024-10-11] MEDS: FIRST - Mouthwash BLM 5 ML UDP PO PRN (09:36)
[2024-10-11] MEDS: acetaZOLAMIDE 250 MG in SYRINGE 0 ML IV STA (09:54)
[2024-10-11] MEDS: SODIUM CHLORIDE 0.9% 500 ML IV SCH (12:32)
[2024-10-11 14:41] LABS: Base Excess VBG 9.9 mEq/L; HCO3 VBG 37 mmol/L; Oxygen Saturation VBG 91.6 %; PCO2 VBG 58 mmHg (38-50); PO2 VBG 64 mmHg; pH VBG 7.41 (7.36-7.41)
[2024-10-11 15:02] LABS: BUN Creatinine Ratio 29.5 (10-20); Calcium 7.8 mg/dl (8.6-10.3); Potassium 3.8 mmol/L (3.5-5.1)
--- NOTE | 2024-10-11 23:06 | Hospitalist Progress Note ---
Date of Service October 11, 2024 Assessment & Plan (1) Weakness: (2) Infection due to human metapneumovirus (hMPV): (3) MRSA bacteremia: Plan 78-year-old male PMHx HTN, dyslipidemia, anemia, A-fib, anxiety with depression, CAD, HFrEF, GERD, RA, urinary incontinence, syncope, LEONARD, myoclonus, and recurrent UTI presenting for increased cough, headache, and vomiting 1 week [employer]. ED evaluation reveals no leukocytosis, H&H 11.7/36.9; PT/INR WNL; CMP BUN 25, ratio 26, calcium 8.4, AST 97, ALT 85; troponin 30.1, pending repeat; BNP 384, albumin 3.17: BioFire positive for metapneumovirus; CXR accentuated bronchovascular markings and pulmonary reticulation bilaterally related to bronchitis, no consolidation, stable small pulmonary nodule shadow in RLL; EKG NSR, LAD, pulmonary disease pattern, nonspecific T wave abnormality at 81 bpm.; Provided with meropenem 1 g IV, and vancomycin, bumetanide, albuterol, guaifenesin/dextromethorphan, and antitussive in ED. #Weakness/Human metapneumovirus Presenting with generalized weakness and associated coughing, post-tussive vomiting, and dizziness worsening over the last 7 days [employer], after d/c from rehab facility. Unable to sleep at night and becoming very SOB with coughing episodes. Worsening since initial start. Pt is on antibiotics for known infection, has been taking as prescribed. Suspect weakness 2/2 viral illness. - CBC without leukocytosis; BMP CO2 31, anion gap 5; BNP 387 - CBC am - Biofire (+) human metapneumovirus -- contact precautions - CXR exaggerated bronchovascular markings and pulmonary reticulations bilaterally likely related to bronchitis, stable small pulmonary nodule in RLL - EKG appears normal sinus with pulmonary disease pattern at 81 bpm -Patient is more letharcgic today, likely secondary to oral opiates for cough supression and ontraction alkalosis, oxygen gaol also titrated and placed on BIPAP HS - CT scan of neck to assess for tightening of airway was negative. - Hypertonic saline nebs (cough worse with it, so will discontinue) - DuoNeb lenny , added budesonide nebs BID - continue Tessalon Perles for PM so patient can rest - continue magic mouthwash PRN continue supportive care - No additional abx #MRSA bacteremia/recurrent R knee MRSA PJI PICC line placed 09/02 for long-term antibiotics, on vancomycin and meropenem until 10/12/2024. - Vancomycin 1.75 g every 24 hours IV - continue - Meropenem 100 mg every 8 hours IV - continue - HELD prophylactic bactrim at admission given on above abx -will consult infectious disease: for assistance given that patient antibiotic course is ending. #Pressure ulcer of right foot, stage 3" and "Non-pressure chronic ulcer of other part of left foot limited to breakdown of skin, Non-pressure chronic ulcer of other part of right foot limited to breakdown of skin continue current wound care appears stable #HFrEF- Daily weights, I+Os; Bumex 0.5mg, Entresto - Will increase bumex to 1mg BID17 IV at admission given significant edema BLE, adjust as appropriate #NICOLÁS- Ferrous sulfate, folic acid, H/H 11.7/36.9- CBC am #Recurrent MDR UTI- Most recent urine culture positive for ESBL Proteus and VRE E faecalis; UA currently appearing uninfected but on antibiotic, d/c from [facility] #PAF/flutter- Amiodarone 200mg, rivaroxaban - continue #LEONARD- CPAP at bedtime if pt can tolerate #Transaminitis- History of, thought to fluctuate with infections; AST/ALT 97/85, no abdominal pain, 1 episode vomiting following coughing spell #HTN- Metoprolol succinate 12.5mg - continue #Recurrent foot ulcer- R foot, wound care (dressed with Aquacel Ag and Mepilex with changes every other day), gabapentin, hydro/acetaminophen; wound care consulted #RA- No longer on Rinvoq since 04/2024 #Depression/Anxiety- Duloxetine, mirtazapine - continue #GERD- Omeprazole - continue #Dyslipidemia- Pravastatin - continue Dispo: pending clinical improvement VTE Prophylaxis: Rivaroxaban Admission and Anticipated Discharge Date Admission Date: October 06, 2024 Subjective 78 yo male is drowsy and lethargic. Physical Exam Physical Exam: General: No acute distress Head: Normocephalic, atraumatic Eyes: PERRL, conjunctivae clear, sclera non-icteric ENT: External ear and ear canal without swelling; nose atraumatic; good dentition, tongue normal appearance, pharynx normal Neck: Supple, no LAD Cardio: RRR, no M/G/R, S1 and S2 normal Resp: No respiratory distress, very coarse breath sounds throughout however this appears to be more transmitted from his throat, coughing during exam; Results & Data Results & Data Vital Signs (Past 12 Hours) Vital Signs Temp Pulse Pulse Pulse Resp BP Pulse Ox 10/11/24 19:50 78 101/59 L 10/11/24 19:45 10/11/24 19:39 73 18 90 10/11/24 19:28 36.8 C 89 18 95/60 L 96 10/11/24 15:10 37.0 C 81 19 104/68 91 10/11/24 14:39 10/11/24 13:55 83 10/11/24 13:43 82 20 92 10/11/24 11:33 37.1 C 86 20 91/54 L 89 L Pulse Ox Pulse Ox O2 Del Method O2 Flow Rate O2 Flow Rate O2 Flow Rate 10/11/24 19:50 10/11/24 19:45 Nasal Cannula 2 10/11/24 19:39 Nasal Cannula 2 10/11/24 19:28 Nasal Cannula 2 10/11/24 15:10 Nasal Cannula 2 10/11/24 14:39 92 92 2 2 10/11/24 13:55 10/11/24 13:43 Nasal Cannula 2 10/11/24 11:33 Nasal Cannula 2 PG Care Time/CCT Total # of Minutes Spent Total Time Spent with Patient: Total time spent is greater than 50% in coordination of care (as documented) at patient's floor/unit and/or counseling patient: Coding Level of Care Code 72248 SUB INP/OBS CARE 3/50MIN Diagnoses Weakness R53.1 Infection due to human metapneumovirus (hMPV) B34.8 MRSA bacteremia R78.81; B95.62
[2024-10-12 06:41] LABS: Hematocrit (blood only) 35.7 % (42.0-52.0); Hemoglobin 11.5 g/dl (14.0-18.0); Mean Corpuscular Hemoglobin 29.4 pg (25.0-34.0); Mean Corpuscular Hgb Conc 32.2 g/dL (32.0-36.0); Mean Corpuscular Volume 91.3 fL (80.0-100.0); Mean Platelet Volume 10.1 fL (9.4-12.4); Platelet Count 217 K/uL (130-400); RDW Coefficient of Variation 16.2 % (11.5-14.5); RDW Standard Deviation 54.7 fL (36.4-46.3); Red Blood Count 3.91 M/uL (4.70-6.10); White Blood Count 7.37 K/ul (4.8-10.8)
[2024-10-12 07:10] LABS: BUN Creatinine Ratio 32.1 (10-20); C Reactive Protein 6.07 mg/dl (0-0.5); Creatinine Clr Calc Pharmacy 68.5 ml/min; Potassium 3.8 mmol/L (3.5-5.1)
[2024-10-12] MEDS: POLYETHYLENE (MIRALAX) 17 GM PACK PO PRN (08:14)
[2024-10-12] MEDS ORDERED: BUDESONIDE 0.25 MG/2 ML VIAL (PULMICORT) NEB SCH (09:00)
--- NOTE | 2024-10-12 09:12 | Infectious Disease Consult ---
Date of Consultation October 12, 2024 Assessment & Plan (1) Infection due to human metapneumovirus (hMPV): (2) History of infection of total joint prosthesis of knee: Plan Problems: #Human metapneumovirus #Recurrent MRSA R knee PJI: on vanc and meropenem through 10/12, followed by [facility] ID #History of MDR UTI Micro: 10/06 RPP: human metapneumovirus detected 08/31 R knee tissue cx: MRSA (S rifampin, tetra, TMP/SMX) 08/30 R lateral foot wound cx: ESBL Proteus mirabilis (S erta, teresita. R TMP/SMX), E faecalis (S amp, R vanc), commensal skin teri Abx: Vanc Meropenem 78 yo M with HTN, HLD, afib on Xarelto, CAD, HFrEF, RA (off Rinvoq since 04/13/24), LEONARD, bilateral FRANCIS, L TKA, R TKA (10/2022) c/b MRSA PJI/bacteremia (06/2023) s/p I&D and poly exchange and vanc x 6 weeks followed by doxy suppression, then Enterobacter cloacae R knee PJI (02/2024) s/p I&D and cefepime --> ertapenem x 6 weeks followed by doxy --> Bactrim suppression, recent admission to [facility] from 08/29 - 09/14/24 for recurrent R knee MRSA PJI c/b MRSA bacteremia s/p I&D and ESBL Proteus and VRE E faecalis UTI. TTE and PAMELA were negative for vegetations. He also had a chronic R foot pressure ulcer which was taken care of by the wound team. ID recommended vancomycin and meropenem to complete a 6 week course through 10/12/24. Reportedly, the meropenem was for the R foot cellulitis. Pt then presented to [facility] on 10/06 with increased cough, headache, vomiting for 1 week. On presentation, he was afebrile, VSS. Labs showed no leukocytosis, negative UA. RPP positive for human metapneumovirus. CXR with accentuated bronchovascular markings and pulmonary reticulations bilaterally likely related to bronchitis, no consolidation. Pt was continued on vanc and meropenem on admission. Was started on 2 L NC. ID is consulted to assist with pt's course of vanc and meropenem which was scheduled to end today. Pt denies drainage from his knee. No concern for persistent R knee PJI or R foot cellulitis on exam. Recommendations: - Ok to complete vancomycin and meropenem today and pull PICC line afterwards - Would then transition to TMP/SMX 1 DS tab PO BID for long-term suppression given MRSA R knee PJI with retained hardware - Pt to reschedule follow-up with [facility] ID ([phone]) Will sign off. Consultation Information Consultation was provided via telemedicine using two-way real-time interactive telecommunication between the patient and the telemedicine provider. For the duration of the visit, the provider was performing the assessment from a different facility than the patient. This includesuse of bluetooth stethoscope forauscultationperformed by the telepresenter that the telemedicine provider can hear if described in the physical exam. Clinical Resource Manager contact information: Please call [facility] . (Phone Number For Physician Use Only) After establishing a telemedicine visit, patient was: Patient was verified with two unique identifiers, Patient/authorized rep acknowledged consent and understanding and Gave permission to continue telehealth session Time Spent with Patient: Initial => 40 min History of Present Illness Reason for Consultation: Antibiotic management for PJI Attending Physician: Sadiq Membreno History of Present Illness 78 yo M with HTN, HLD, afib on Xarelto, CAD, HFrEF, RA (off Rinvoq since 04/13/24), LEONARD, bilateral FRANCIS, L TKA, R TKA (10/2022) c/b MRSA PJI/bacteremia (06/2023) s/p I&D and poly exchange and vanc x 6 weeks followed by doxy supp ression, then Enterobacter cloacae R knee PJI (02/2024) s/p I&D and cefepime --> ertapenem x 6 weeks followed by doxy --> Bactrim suppression, recent admission to [facility] from 08/29 - 09/14/24 for recurrent R knee MRSA PJI c/b MRSA bacteremia s/p I&D and ESBL Proteus and VRE E faecalis UTI. TTE and PAMELA were negative for vegetations. He also had a chronic R foot pressure ulcer which was taken care of by the wound team. ID recommended vancomycin and meropenem to complete a 6 week course through 10/12/24. Pt then presented to [facility] on 10/06 with increased cough, headache, vomiting for 1 week. On presentation, he was afebrile, VSS. Labs showed no leukocytosis, negative UA. RPP positive for human metapneumovirus. CXR with accentuated bronchovascular markings and pulmonary reticulations bilaterally likely related to bronchitis, no consolidation. Pt was continued on vanc and meropenem on admission. Was started on 2 L NC. ID is consulted to assist with pt's course of vanc and meropenem which was scheduled to end today. Pt denies drainage from his knee. Allergies Allergy/AdvReac Type Severity Reaction Status Date / Time cat dander Allergy Severe CAT Verified 08/26/24 11:27 HAIR---Swelling of Lip/Tongue/Throat Home Medications Medication Instructions Recorded Confirmed Type aspirin 81 mg tablet,delayed 81 mg PO QAM 08/07/22 10/06/24 History release (Adult Low Dose Aspirin) cyanocobalamin (vitamin B-12) 500 1,000 mcg (2 x 500 mcg) PO QAM #30 01/18/23 10/06/24 Rx mcg tablet tabs duloxetine 60 mg capsule,delayed 60 mg PO QAM #90 caps 10/29/23 10/06/24 Rx release rivaroxaban 20 mg tablet (Xarelto) 20 mg PO QPM 11/19/23 10/06/24 History sennosides 8.6 mg tablet 8.6 mg PO BID 12/15/23 10/06/24 History mirtazapine 30 mg tablet 30 mg PO HS 01/21/24 10/06/24 History nitroglycerin 0.4 mg sublingual 0.4 mg sublingual DIRECTED PRN 01/21/24 10/06/24 History tablet chest pin pravastatin 40 mg tablet 40 mg PO HS 01/21/24 10/06/24 History vitamin E 268 mg (400 unit) capsule 268 mg PO DAILY ##0 01/21/24 10/06/24 History acetaminophen 325 mg tablet 975 mg PO Q8H PRN mild pain,fever, 01/26/24 10/06/24 History or headache ferrous sulfate 325 mg (65 mg 325 mg PO DAILY #90 tabs 05/11/24 10/06/24 Rx iron) tablet sacubitril 24 mg-valsartan 26 mg 1 tab PO BID #180 tabs 05/11/24 10/06/24 Rx tablet (Entresto) gabapentin 600 mg tablet 600 mg PO TID neuropathy from 05/12/24 10/06/24 Rx severe PVD wounds 1 month #90 tabs bumetanide 0.5 mg tablet 0.5 mg PO DAILY 05/27/24 10/06/24 History sulfamethoxazole 800 1 tab PO DAILY 07/14/24 10/06/24 History mg-trimethoprim 160 mg tablet (Bactrim DS) collagenase clostridium histo. 250 1 applic topical DAILY #30 grams 07/22/24 10/06/24 Rx unit/gram topical ointment (Santyl) diclofenac sodium 1 % topical gel 2 g topical QID PRN Shoulder Pain 07/22/24 10/06/24 History glucosamine sulfate 500 mg tablet 500 mg PO QAM 07/22/24 10/06/24 History (Glucosamine) hydrocodone 5 mg-acetaminophen 325 1 tab PO Q6 PRN Moderate Pain 07/22/24 10/06/24 History mg tablet (Scale Score 5-6) melatonin 3 mg tablet 6 mg PO HS 07/22/24 10/06/24 History multivitamin 1 tab PO QAM 07/22/24 10/06/24 History omega-3 fatty acids 1,250 mg 1,250 mg PO QAM 07/22/24 10/06/24 History capsule tamsulosin 0.4 mg capsule 0.4 mg PO HS 07/22/24 10/06/24 History Lactobacillus acidophilus 1 tab PO DAILY 08/12/24 10/06/24 History cholecalciferol (vitamin D3) 10 20 mcg PO DAILY 08/12/24 10/06/24 History mcg (400 unit) tablet (Vitamin D3) folic acid 1 mg tablet 1 mg PO DAILY 08/12/24 10/06/24 History metoprolol succinate 50 mg 12.5 mg PO QAM 08/12/24 10/06/24 History tablet,extended release 24 hr netarsudil 0.02 %-latanoprost 1 drp OPB HS 08/12/24 10/06/24 History 0.005 % eye drops (Rocklatan) omeprazole 20 mg capsule,delayed 20 mg PO DAILY 08/12/24 10/06/24 History release thiamine HCl (vitamin B1) 100 mg 100 mg PO DAILY 08/12/24 10/06/24 History tablet vitamins B1 2.5 mg-B2 2.5 1 tab PO DAILY 08/12/24 10/06/24 History mg-niacin 5 mg-B12 100 mcg-protease tablet (B-Complex With B-12) amiodarone 200 mg tablet 200 mg PO QAM #30 tabs 08/19/24 10/06/24 Rx levetiracetam 250 mg tablet 250 mg PO BID #60 tabs 08/22/24 10/06/24 Rx meropenem 1 gram intravenous 1 g IV Q8H 10/06/24 10/06/24 History solution vancomycin 1.75 gram intravenous 1.75 g IV Q24H 10/06/24 10/06/24 History solution Patient History Medical History Hypoxia JEFFERY (acute kidney injury) Hypotension Hyperkalemia Lethargy Ischemic ulcer of left foot Ischemic ulcer of right foot Bilateral lower leg cellulitis PVD (peripheral vascular disease) Atrial flutter with rapid ventricular response Open wound of left lower extremity Sepsis secondary to UTI Fever Sepsis due to skin infection Sepsis Fall Infected hardware in right leg Chronic infection of right knee Severe sepsis Venous ulcer of right leg Idiopathic polyneuropathy History of immunosuppressive therapy Heart failure with preserved ejection fraction GERD (gastroesophageal reflux disease) Sepsis Septicemia due to Streptococcus pneumoniae Respiratory failure with hypoxia Hypomagnesemia Pneumonia Benign essential hypertension Lumbar stenosis Hx of staphylococcal infection 03/2022, w/"bacterial infection" at the same, in the rt. knee, occurrred during atrial fibrillation episode. "when he woke up, he couldn't walk." Atrial fibrillation episode occurred in 03/2022, taken to [facility] in [place], admitted to ICU for 1-2 weeks (was not intubated, but wasn't "awake either"), then to cardiac unit, then to rehab at [facility] in [place]; f/u dr. guerra in [place]>will be starting to see a student at [facility] 2nd week of 08/2022 Myocardial Infarction "a silent one2019" Sleep apnea no device Surgical History Status post revision of total replacement of right knee Hx of Achilles tendon repair rt. Hx of knee surgery rt. patellar tendon repair Hx of rotator cuff surgery bilateral Hx of total knee replacement lt. Hx of total hip arthroplasty rt. History of colostomy reversal History of bowel resection for diverticulitis; w/colostomy placement for 3-4 months Hx of hernia repair near former colostomy site History of esophagogastroduodenoscopy (EGD) Hx of colonoscopy Last Colonoscopy 08/14/22, repeat 3 years in 2025 Hx of bilateral cataract extraction History of heart artery stent ~3 years ago, x2 stents, done in [place]; f/u dr guerra, [place]>will be seeing new cardio at [place] August 2022. History of cardiac cath ~3 years ago, SOB and "felt like throat was constricting", had "silent heart attack", x2 stents, done in [place] Family History Grandmother (Maternal) Diabetes Daughter Diabetes Father Suicide Hypertension Denies family history of Ovarian cancer Prostate cancer Myocardial infarction Breast cancer Lung cancer Colorectal cancer Stroke Social History Smoking Status: Never smoker Second Hand Exposure: No; Do You Dip or Chew Tobacco: No; Hx Alcohol Use: Yes Alcohol type: wine Alcohol Intake Frequency: 4 or More x per/Week Hx Substance Use: No Preferred Language: [place] Communication Ability: Effective Visual Impairment: Limited Hearing Ability: Normal Aircraft Life Support Fitter Required: No Beliefs That Will Affect Care: None marital status: Single Current Living Situation: Personal Care Facility Current Living Situation Comment: [facility] Independent living current occupational status: retired How many Children do You have: 2 Feels Safe at Home: Yes Safety Concerns: Feels Safe At This Time Childhood Exposure to Second-Hand Smoke: Yes Diet: regular caffeine: Yes Dental Care, Regularly: Yes Physical Activity Frequency: Does not Exercise Seatbelt Use: always Sunscreen Use: Yes Assistive Devices: Wheelchair Review of System A complete ROS was performed and is negative except as mentioned in the HPI. Physical Exam Physical Exam: GEN: laying in bed in NAD, frequent coughing fits RESP: No increased work of breathing SKIN: R knee surgical incision with overlying area of crust, but no surrounding erythema NEURO: Alert and oriented. Answers all questions appropriately. Speech not slurred. PSYCH: Normal mood, affect appropriate. Results & Data Vital Signs (Past 12 Hours) Vital Signs Temp Pulse Pulse Resp BP Pulse Ox O2 Del Method 10/12/24 07:42 36.9 C 77 20 122/72 95 Nasal Cannula 10/12/24 07:27 76 10/12/24 07:13 76 18 96 Nasal Cannula 10/12/24 02:20 36.8 C 87 20 104/66 92 Nasal Cannula 10/12/24 00:19 79 18 92 Nasal Cannula 10/11/24 23:42 37 C 76 18 103/63 91 Nasal Cannula 10/11/24 21:36 78 O2 Flow Rate 10/12/24 07:42 2 10/12/24 07:27 10/12/24 07:13 2 10/12/24 02:20 2 10/12/24 00:19 2 10/11/24 23:42 3 10/11/24 21:36 Laboratory Results Short CBC 10/12/24 Range/Units 05:50 WBC 7.37 (4.8-10.8) K/ul Hgb 11.5 L (14.0-18.0) g/dl Hct 35.7 L (42.0-52.0) % Plt Count 217 (130-400) K/uL BMP 10/12/24 05:50 Sodium 141 Potassium 3.8 Chloride 100 Carbon Dioxide 38 H BUN 36 H Creatinine 1.12 Glucose 93 Calcium 8.0 L Diagnostic Findings Chest X-Ray 10/10/24 09:11 XR chest 2V PA/lateral CLINICAL HISTORY: Hypoxia. COMPARISON STUDY: Chest radiograph October 06, 2024. FINDINGS: Low lung volumes are again noted with elevation of the left hemidiaphragm. Linear left basilar densities represent atelectasis. Mild right basilar opacity favors atelectasis. There is no evidence for pulmonary edema. Cardiomediastinal silhouette is stable. There is no pneumothorax or pleural effusion. IMPRESSION: 1. No change in low lung volumes. Right basilar opacity favors atelectasis although an infectious process could appear similar. 2. Linear left basilar density consistent with atelectasis. ACT 112: Negative or not required by law. Electronically signed by: Jong Nascimento M.D. 10/10/2024 11:25 AM Medications Administered Current Inpatient Medications Acetaminophen (Acetaminophen 325 Mg Tab) 650 mg PO Q4H PRN PRN Reason: Pain or Fever Stop: 11/06/24 21:03 Last Admin: 10/12/24 11:59 Dose: 650 mg Amiodarone HCl (Amiodarone 200 Mg Tab) 200 mg PO [facility] Stop: 11/06/24 08:59 Last Admin: 10/12/24 08:16 Dose: 200 mg Aspirin (Aspirin 81 Mg Ectab) 81 mg PO QAM [facility] Stop: 11/06/24 08:59 Last Admin: 10/12/24 08:16 Dose: 81 mg Benzonatate (Benzonatate 100 Mg Capsule) 100 mg PO TID [facility] Stop: 11/11/24 13:59 Last Admin: 10/12/24 13:28 Dose: 100 mg Budesonide (Budesonide 0.25 Mg/2 Ml Vial (Pulmicort)) 0.25 mg NEB BIDR [facility] Stop: 11/08/24 18:59 Last Admin: 10/12/24 07:10 Dose: 0.25 mg Collagenase (Collagenase Oint 30 Gm Tube) 1 appln TOP DAILY [facility] Stop: 11/06/24 08:59 Last Admin: 10/12/24 08:18 Dose: Not Given Cyanocobalamin (Cyanocobalamin (B-12) 500 Mcg Tablet) 1,000 [facility] Stop: 11/06/24 08:59 Last Admin: 10/12/24 08:16 Dose: 1,000 mcg Diclofenac Sodium (Diclofenac Sod 1% Gel 100 Gm Tube) 2 gm EXT QID PRN; Protocol PRN Reason: Shoulder Pain Stop: 11/06/24 00:40 Last Admin: 10/10/24 13:29 Dose: 2 gm Duloxetine HCl (Duloxetine Hcl 60 Mg Cap) 60 mg PO [facility] Stop: 11/06/24 08:59 Last Admin: 10/12/24 08:15 Dose: 60 mg Ferrous Sulfate (Ferrous Sulfate 325 Mg Tab) 325 mg PO DAILY [facility] Stop: 11/06/24 08:59 Last Admin: 10/12/24 08:15 Dose: 325 mg Fluticasone Propionate (Fluticasone Propionate Na Spr 16 Gm Btl) 2 sprays TRISH DAILY [facility] Stop: 11/11/24 12:14 Last Admin: 10/12/24 13:27 Dose: 2 sprays Folic Acid (Folic Acid 1 Mg Tab) 1 mg PO DAILY [facility] Stop: 11/06/24 08:59 Last Admin: 10/12/24 08:18 Dose: 1 mg Gabapentin (Gabapentin 600 Mg Tab) 600 mg PO TID [facility] Stop: 11/06/24 08:59 Last Admin: 10/12/24 13:29 Dose: 600 mg Glucosamine Sulfate (Glucosamine Sulfate 500 Mg Cap) 500 mg PO QAM [facility] Stop: 11/06/24 08:59 Last Admin: 10/12/24 08:15 Dose: 500 mg Guaifenesin (Guaifenesin 600 Mg Tabcr) 1,200 mg PO Q12 [facility] Stop: 11/06/24 10:59 Last Admin: 10/12/24 08:16 Dose: 1,200 mg Heparin Sodium (Beef Lung) (Heparin 10 Unit/Ml 5 Ml Flush) 5 ml FLUSH PRN PRN PRN Reason: Flush Stop: 11/06/24 20:44 Last Admin: 10/12/24 12:01 Dose: 5 ml Meropenem 500 mg/ Syringe 10 mls @ 2 mls/min IV Q6H [facility]; Protocol Stop: 10/12/24 20:04 Last Admin: 10/12/24 13:29 Dose: 2 mls/min Vancomycin HCl 1,500 mg/ (Sodium Chloride) 530 mls @ 200 mls/hr IV Q24H [facility] Stop: 10/12/24 23:59 Last Infusion: 10/12/24 08:48 Dose: Infused Latanoprost (Latanoprost 0.005% Op Soln 2.5 Ml Btl) 1 drops OP PM [facility] Stop: 11/06/24 20:59 Last Admin: 10/11/24 19:51 Dose: 1 drops Levalbuterol HCl (Levalbuterol 1.25 Mg/3 Ml Neb) 1.25 mg NEB Q8R [facility] Stop: 11/11/24 14:59 Last Admin: 10/12/24 14:07 Dose: 1.25 mg Levetiracetam (Levetiracetam 250 Mg Tab) 250 mg PO BID [facility] Stop: 11/06/24 08:59 Last Admin: 10/12/24 08:16 Dose: 250 mg Melatonin (Melatonin 3 Mg Tab) 6 mg PO [facility] Stop: 11/06/24 20:59 Last Admin: 10/11/24 19:52 Dose: 6 mg Menthol (Cough Drop (Sugar Free) Wendy 24 Wendy/1 Box) 1 wendy BUCCAL QID [facility] Stop: 11/11/24 08:59 Last Admin: 10/12/24 13:27 Dose: 1 wendy Metoprolol Succinate (Metoprolol Succ 50mg Ext Rel Tab) 12.5 mg PO QAM [facility] Stop: 11/06/24 08:59 Last Admin: 10/12/24 08:17 Dose: 12.5 mg Miconazole Nitrate (Miconazole Nitrate Powder 85 Gm) 1 appln EXT PRN PRN PRN Reason: Affected Skin Folds Stop: 11/07/24 15:09 Mirtazapine (Mirtazapine Tab 15 Mg Tab) 30 mg PO [facility] Stop: 11/06/24 20:59 Last Admin: 10/11/24 19:52 Dose: 30 mg Miscellaneous Information (Vancomycin Consult Active) 1 each N/A UD PRN PRN Reason: Consult Stop: 11/06/24 00:57 Multi-Ingredient Mouthwash/Gargle (First - Mouthwash Blm 5 Ml Udp) 5 ml PO Q6H PRN PRN Reason: sore throat Stop: 11/07/24 18:44 Last Admin: 10/11/24 09:36 Dose: 5 ml Nitroglycerin (Nitroglycerin Sl 0.4 Mg/Tab Tab) 0.4 mg SL UD PRN PRN Reason: chest pin Stop: 11/06/24 00:40 Ondansetron HCl (Ondansetron Inj 2 Mg/Ml 2 Ml Vial) 4 mg IV Q6H PRN PRN Reason: Nausea Stop: 11/06/24 00:40 Pantoprazole Sodium (Pantoprazole 40 Mg Tab) 40 mg PO DAILY [facility] Stop: 11/06/24 08:59 Last Admin: 10/12/24 08:16 Dose: 40 mg Polyethylene Glycol (Polyethylene (Miralax) 17 Gm Pack) 17 gm PO DAILY PRN PRN Reason: Constipation Stop: 11/06/24 00:40 Last Admin: 10/12/24 08:14 Dose: 17 gm Pravastatin Sodium (Pravastatin Sod 40 Mg Tab) 40 mg PO [facility] Stop: 11/06/24 20:59 Last Admin: 10/11/24 19:52 Dose: 40 mg Rivaroxaban (Rivaroxaban 20 Mg Tab) 20 mg PO QPM [facility] Stop: 11/06/24 20:59 Last Admin: 10/11/24 19:52 Dose: 20 mg Sacubitril/Valsartan (Valsartan/Sacubitril 26/24mg Tab) 1 tab PO BID [facility] Stop: 11/06/24 08:59 Last Admin: 10/12/24 08:16 Dose: 1 tab Sennosides (Senna 8.6 Mg Tab) 8.6 mg PO BID [facility] Stop: 11/06/24 08:59 Last Admin: 10/12/24 08:14 Dose: 8.6 mg Sodium Chloride (Sodium Chloride 0.65% Na Soln 45 Ml ([place])) 2 sprays NA Q2H PRN PRN Reason: Nasal Congestion Stop: 11/11/24 12:02 Tamsulosin HCl (Tamsulosin Hcl 0.4 Mg Cap) 0.4 mg PO HS [facility] Stop: 11/06/24 20:59 Last Admin: 10/11/24 19:52 Dose: 0.4 mg Thiamine HCl (Thiamine Hcl 100 Mg Tab) 100 mg PO DAILY [facility] Stop: 11/06/24 08:59 Last Admin: 10/12/24 08:16 Dose: 100 mg Vitamin D (Cholecalciferol 10 Mcg (400 Units) Tab) 20 mcg PO DAILY [facility] Stop: 11/06/24 08:59 Last Admin: 10/12/24 08:15 Dose: 20 mcg
[2024-10-12] MEDS: COUGH DROP (SUGAR FREE) LOZ 24 LOZ/1 BOX BUCCAL SCH (10:35)
[2024-10-12] MEDS: FLUTICASONE PROPIONATE NA SPR 16 GM BTL NAE SCH (13:27)
[2024-10-12] MEDS: BENZONATATE 100 MG CAPSULE PO SCH (13:28)
[2024-10-12] MEDS: LEVALBUTEROL 1.25 MG/3 ML NEB NEB SCH (14:07)
--- NOTE | 2024-10-12 22:48 | Hospitalist Progress Note ---
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 ED evaluation reveals no leukocytosis, H&H 11.7/36.9; PT/INR WNL; CMP BUN 25, ratio 26, calcium 8.4, AST 97, ALT 85; troponin 30.1, pending repeat; BNP 384, albumin 3.17: BioFire positive for metapneumovirus; CXR accentuated bronchovascular markings and pulmonary reticulation bilaterally related to bronchitis, no consolidation, stable small pulmonary nodule shadow in RLL; EKG NSR, LAD, pulmonary disease pattern, nonspecific T wave abnormality at 81 bpm.; Provided with meropenem 1 g IV, and vancomycin, bumetanide, albuterol, guaifenesin/dextromethorphan, and antitussive in ED. 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 Unable to sleep at night and becoming very SOB with coughing episodes. Worsening since initial start. Pt is on antibiotics for known infection, has been taking as prescribed. Suspect weakness 2/2 viral illness. - CBC without leukocytosis; BMP CO2 31, anion gap 5; BNP 387 - CBC am - Biofire (+) human metapneumovirus -- contact precautions - CXR exaggerated bronchovascular markings and pulmonary reticulations bilaterally likely related to bronchitis, stable small pulmonary nodule in RLL - EKG appears normal sinus with pulmonary disease pattern at 81 bpm -Patient is more letharcgic today, likely secondary to oral opiates for cough supression and ontraction alkalosis, oxygen gaol also titrated and placed on BIPAP HS - CT scan of neck to assess for tightening of airway was negative. - Hypertonic saline nebs (cough worse with it, so will discontinue) - DuoNeb lenny , added budesonide nebs BID - continue Tessalon Perles for PM so patient can rest - continue magic mouthwash PRN continue supportive care - No additional abx -added flonase, nasal saline spray, may consider afrin, corticosteroids, added budesonide #MRSA bacteremia/recurrent R knee MRSA PJI PICC line placed 09/02 for long-term antibiotics, on vancomycin and meropenem until 10/12/2024. completed: - Vancomycin 1.75 g every 24 hours IV - Meropenem 100 mg every 8 hours IV -will transition to bactrim, can pull out PICC line on 10/13, may consider keeping until discharge for ease of lab draws #Pressure ulcer of right foot, stage 3" and "Non-pressure chronic ulcer of other part of left foot limited to breakdown of skin, Non-pressure chronic ulcer of other part of right foot limited to breakdown of skin continue current wound care appears stable #HFrEF- Daily weights, I+Os; Bumex 0.5mg, Entresto - Will increase bumex to 1mg BID17 IV at admission given significant edema BLE, adjust as appropriate #NICOLÁS- Ferrous sulfate, folic acid, H/H 11.7/36.9- CBC am #Recurrent MDR UTI- Most recent urine culture positive for ESBL Proteus and VRE E faecalis; UA currently appearing uninfected but on antibiotic, d/c from [facility] #PAF/flutter- Amiodarone 200mg, rivaroxaban - continue #LEONARD- CPAP at bedtime if pt can tolerate #Transaminitis- History of, thought to fluctuate with infections; AST/ALT 97/85, no abdominal pain, 1 episode vomiting following coughing spell #HTN- Metoprolol succinate 12.5mg - continue #Recurrent foot ulcer- R foot, wound care (dressed with Aquacel Ag and Mepilex with changes every other day), gabapentin, hydro/acetaminophen; wound care consulted #RA- No longer on Rinvoq since 04/2024 #Depression/Anxiety- Duloxetine, mirtazapine - continue #GERD- Omeprazole - continue #Dyslipidemia- Pravastatin - continue Dispo: pending clinical improvement VTE Prophylaxis: Rivaroxaban Admission and Anticipated Discharge Date Admission Date: October 06, 2024 Subjective Patient is more awake today. Reports he feels "shitty.' Nurse is at bedside. Initially reports feeling nauseous but then states he is not. He asks to go back in bed. Nurse eports he had only been in chair for maybe 30 minutes. Daughter Diana is updated and reports he is usually active and wants to get out of bed. Continues with barking cough Physical Exam Physical Exam: General: No acute distress Head: Normocephalic, atraumatic Eyes: PERRL, conjunctivae clear, sclera non-icteric ENT: External ear and ear canal without swelling; nose atraumatic; good dentition, tongue normal appearance, pharynx normal Neck: Supple, no LAD Cardio: RRR, no M/G/R, S1 and S2 normal Resp: No respiratory distress, very coarse breath sounds throughout however this appears to be more transmitted from his throat, coughing during exam; Results & Data Results & Data Vital Signs (Past 12 Hours) Vital Signs Temp Pulse Pulse Resp BP Pulse Ox O2 Del Method 10/12/24 21:25 88 120/71 10/12/24 20:07 80 18 93 Nasal Cannula 10/12/24 19:33 36.7 C 83 16 97/59 L 90 Nasal Cannula 10/12/24 15:34 36.5 C 75 16 108/69 93 Room Air 10/12/24 14:53 78 10/12/24 14:07 80 18 91 Nasal Cannula 10/12/24 12:22 36.6 C 85 16 112/67 90 Room Air O2 Flow Rate 10/12/24 21:25 10/12/24 20:07 2 10/12/24 19:33 2 10/12/24 15:34 10/12/24 14:53 10/12/24 14:07 1 10/12/24 12:22 PG Care Time/CCT Total # of Minutes Spent Total Time Spent with Patient: Total time spent is greater than 50% in coordination of care (as documented) at patient's floor/unit and/or counseling patient: Coding Level of Care Code 56341 SUB INP/OBS CARE 3/50MIN Diagnoses Weakness R53.1 Infection due to human metapneumovirus (hMPV) B34.8 MRSA bacteremia R78.81; B95.62
[2024-10-13] MEDS: SULFAMETHOXAZOLE/TRIMETHOPRIM DS 800/160MG TAB PO SCH (09:00)
[2024-10-13 11:48] LABS: Hematocrit (blood only) 34.9 % (42.0-52.0); Hemoglobin 11.5 g/dl (14.0-18.0); Mean Corpuscular Hemoglobin 29.6 pg (25.0-34.0); Mean Corpuscular Volume 89.9 fL (80.0-100.0); Mean Platelet Volume 10.5 fL (9.4-12.4); Platelet Count 258 K/uL (130-400); RDW Coefficient of Variation 16.2 % (11.5-14.5); RDW Standard Deviation 53.3 fL (36.4-46.3); Red Blood Count 3.88 M/uL (4.70-6.10); White Blood Count 8.26 K/ul (4.8-10.8)
[2024-10-13 11:56] LABS: BUN Creatinine Ratio 37.1 (10-20); C Reactive Protein 12.2 mg/dl (0-0.5); Calcium 8.1 mg/dl (8.6-10.3); Potassium 3.7 mmol/L (3.5-5.1)
--- NOTE | 2024-10-13 15:40 | Pulmonary Consultation ---
Date of Consultation October 13, 2024 Assessment & Plan (1) Bronchitis due to human metapneumovirus (hMPV): (2) Cough: (3) Fatigue: (4) Atelectasis: (5) Obesity hypoventilation syndrome: (6) Obstructive sleep apnea: Plan Hypoxia related to bronchitis related to human metapneumovirus; LEONARD; obesity hypoventilation syndrome and atelectasis. -Start albuterol nebs PRN for wheezing and SOB -Continue ICS nebs bid already ordered inpatient -Recommend positive pressure ventilation CPAP while sleeping and taking naps -Pulmonary clearance techniques to include flutter valve, ISB, q2h while awake -If secretions are difficult to clear could consider hypertonic nebulizes with albuterol q4h. -OOB to chair as much as possible. -Can follow up with pulmonary outpatient or with [place] pulmonology outpatient. Supervising Physician Co-Signing Physician Notes Patient separately seen and examined from [facility]: 78-year-old male with a history of obesity, paroxysmal atrial fibrillation, peripheral artery disease, ambulatory dysfunction who is currently hospitalized due to chronic joint infection and human metapneumovirus bronchiolitis. Patient endorses shortness of breath even at rest and wheezing. He also notes a cough that is mostly nonproductive. He denies any prior history of tobacco abuse or underlying lung disease. Prior labs reviewed with evidence of eosinophilia on CBC. VBG 10/11/2024 revealed chronic hypercapnic respiratory failure with a PCO2 of 58. Chest x-ray 10/10/2024 personally reviewed which revealed atelectasis in the right lower lobe and low lung volumes. On exam, patient is lethargic, frequently coughing and wheezing on auscultation. He does not appear to be in any respiratory distress. Patient with likely human metapneumovirus bronchiolitis and LEONARD/OHS. Will start the patient on IV methylprednisone, nebulized budesonide at a dose of 0.5 mg twice daily and formoterol twice daily. Will start DuoNebs on an as- needed basis. On the patient is ready for discharge, recommend high-dose budesonide/formoterol MDI (160/4.5), 2 puffs twice daily. Initiate incentive spirometry every hour and flutter valve 4 times daily. Will trial the patient on CPAP at a pressure of 8 cmH2O tonight. Check ABG tomorrow a.m. patient would likely qualify for home AVAPS. Pulmonary to follow-up tomorrow. History of Present Illness Reason for Consultation: Optimize mgmt of human metapneumovirus PNA/COPD Requesting Physician: Saul Pierson MD, PhD Attending Physician: Saul Pierson MD, PhD History of Present Illness Lowell Palacio is an 78-year-old male with past medical history significant for HTN, dyslipidemia, anemia, A-fib, anxiety with depression, CAD, HFrEF, GERD, RA, urinary incontinence, syncope, LEONARD does not wear CPAP, myoclonus, and recurrent UTI presenting on 10/07/2024 for increased cough, headache, and vomiting 1 week. BioFire positive for metapneumovirus; CXR accentuated bronchovascular markings and pulmonary reticulation bilaterally related to bronchitis, no consolidation, stable small pulmonary nodule shadow in RLL. The patient was on chronic ABX for a right knee infection with Vancomycin and meropenem. Patient placed oxygen started on meropenem 1 g IV, and vancomycin, bumetanide, albuterol, guaifenesin/dextromethorphan, and antitussive and admitted to hospitalist service for continued evaluation and management of hypoxia related to Human metapneumovirus. Pulmonology consulted for optimization and management opinion on 10/13/2024. Allergies Allergy/AdvReac Type Severity Reaction Status Date / Time cat dander Allergy Severe CAT Verified 08/26/24 11:27 HAIR---Swelling of Lip/Tongue/Throat Home Medications Medication Instructions Recorded Confirmed Type aspirin 81 mg tablet,delayed 81 mg PO QAM 08/07/22 10/06/24 History release (Adult Low Dose Aspirin) cyanocobalamin (vitamin B-12) 500 1,000 mcg (2 x 500 mcg) PO QAM #30 01/18/23 10/06/24 Rx mcg tablet tabs duloxetine 60 mg capsule,delayed 60 mg PO QAM #90 caps 10/29/23 10/06/24 Rx release rivaroxaban 20 mg tablet (Xarelto) 20 mg PO QPM 11/19/23 10/06/24 History sennosides 8.6 mg tablet 8.6 mg PO BID 12/15/23 10/06/24 History mirtazapine 30 mg tablet 30 mg PO HS 01/21/24 10/06/24 History nitroglycerin 0.4 mg sublingual 0.4 mg sublingual DIRECTED PRN 01/21/24 10/06/24 History tablet chest pin pravastatin 40 mg tablet 40 mg PO HS 01/21/24 10/06/24 History vitamin E 268 mg (400 unit) capsule 268 mg PO DAILY ##0 01/21/24 10/06/24 History acetaminophen 325 mg tablet 975 mg PO Q8H PRN mild pain,fever, 01/26/24 10/06/24 History or headache ferrous sulfate 325 mg (65 mg 325 mg PO DAILY #90 tabs 05/11/24 10/06/24 Rx iron) tablet sacubitril 24 mg-valsartan 26 mg 1 tab PO BID #180 tabs 05/11/24 10/06/24 Rx tablet (Entresto) gabapentin 600 mg tablet 600 mg PO TID neuropathy from 05/12/24 10/06/24 Rx severe PVD wounds 1 month #90 tabs bumetanide 0.5 mg tablet 0.5 mg PO DAILY 05/27/24 10/06/24 History sulfamethoxazole 800 1 tab PO DAILY 07/14/24 10/06/24 History mg-trimethoprim 160 mg tablet (Bactrim DS) collagenase clostridium histo. 250 1 applic topical DAILY #30 grams 07/22/24 10/06/24 Rx unit/gram topical ointment (Santyl) diclofenac sodium 1 % topical gel 2 g topical QID PRN Shoulder Pain 07/22/24 10/06/24 History glucosamine sulfate 500 mg tablet 500 mg PO QAM 07/22/24 10/06/24 History (Glucosamine) hydrocodone 5 mg-acetaminophen 325 1 tab PO Q6 PRN Moderate Pain 07/22/24 10/06/24 History mg tablet (Scale Score 5-6) melatonin 3 mg tablet 6 mg PO HS 07/22/24 10/06/24 History multivitamin 1 tab PO QAM 07/22/24 10/06/24 History omega-3 fatty acids 1,250 mg 1,250 mg PO QAM 07/22/24 10/06/24 History capsule tamsulosin 0.4 mg capsule 0.4 mg PO HS 07/22/24 10/06/24 History Lactobacillus acidophilus 1 tab PO DAILY 08/12/24 10/06/24 History cholecalciferol (vitamin D3) 10 20 mcg PO DAILY 08/12/24 10/06/24 History mcg (400 unit) tablet (Vitamin D3) folic acid 1 mg tablet 1 mg PO DAILY 08/12/24 10/06/24 History metoprolol succinate 50 mg 12.5 mg PO QAM 08/12/24 10/06/24 History tablet,extended release 24 hr netarsudil 0.02 %-latanoprost 1 drp OPB HS 08/12/24 10/06/24 History 0.005 % eye drops (Rocklatan) omeprazole 20 mg capsule,delayed 20 mg PO DAILY 08/12/24 10/06/24 History release thiamine HCl (vitamin B1) 100 mg 100 mg PO DAILY 08/12/24 10/06/24 History tablet vitamins B1 2.5 mg-B2 2.5 1 tab PO DAILY 08/12/24 10/06/24 History mg-niacin 5 mg-B12 100 mcg-protease tablet (B-Complex With B-12) amiodarone 200 mg tablet 200 mg PO QAM #30 tabs 08/19/24 10/06/24 Rx levetiracetam 250 mg tablet 250 mg PO BID #60 tabs 08/22/24 10/06/24 Rx meropenem 1 gram intravenous 1 g IV Q8H 10/06/24 10/06/24 History solution vancomycin 1.75 gram intravenous 1.75 g IV Q24H 10/06/24 10/06/24 History solution Patient History Medical History Hypoxia JEFFERY (acute kidney injury) Hypotension Hyperkalemia Lethargy Ischemic ulcer of left foot Ischemic ulcer of right foot Bilateral lower leg cellulitis PVD (peripheral vascular disease) Atrial flutter with rapid ventricular response Open wound of left lower extremity Sepsis secondary to UTI Fever Sepsis due to skin infection Sepsis Fall Infected hardware in right leg Chronic infection of right knee Severe sepsis Venous ulcer of right leg Idiopathic polyneuropathy History of immunosuppressive therapy Heart failure with preserved ejection fraction GERD (gastroesophageal reflux disease) Sepsis Septicemia due to Streptococcus pneumoniae Respiratory failure with hypoxia Hypomagnesemia Pneumonia Benign essential hypertension Lumbar stenosis Hx of staphylococcal infection 03/2022, w/"bacterial infection" at the same, in the rt. knee, occurrred during atrial fibrillation episode. "when he woke up, he couldn't walk." Atrial fibrillation episode occurred in 03/2022, taken to [facility] in [place], admitted to ICU for 1-2 weeks (was not intubated, but wasn't "awake either"), then to cardiac unit, then to rehab at [facility]; f/u dr. 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 Hx of knee surgery rt. patellar tendon repair Hx of rotator cuff surgery bilateral Hx of total knee replacement lt. Hx of total hip arthroplasty rt. History of colostomy reversal History of bowel resection for diverticulitis; w/colostomy placement for 3-4 months Hx of hernia repair near former colostomy site History of esophagogastroduodenoscopy (EGD) Hx of colonoscopy Last Colonoscopy 08/14/22, repeat 3 years in 2025 Hx of bilateral cataract extraction History of heart artery stent ~3 years ago, x2 stents, done in [place]; f/u dr guerra, [place]>will be seeing new cardio at [facility] of August 2022. History of cardiac cath ~3 years ago, SOB and "felt like throat was constricting", had "silent heart attack", x2 stents, done in [place] Family History Grandmother (Maternal) Diabetes Daughter Diabetes Father Suicide Hypertension Denies family history of Ovarian cancer Prostate cancer Myocardial infarction Breast cancer Lung cancer Colorectal cancer Stroke Social History Smoking Status: Never smoker Second Hand Exposure: No; Do You Dip or Chew Tobacco: No; Hx Alcohol Use: Yes Alcohol type: wine Alcohol Intake Frequency: 4 or More x per/Week Hx Substance Use: No Preferred Language: [place] Sudanese Communication Ability: Effective Visual Impairment: Limited Hearing Ability: Normal Airworthiness Safety Inspector Required: No Beliefs That Will Affect Care: None marital status: Single Current Living Situation: Personal Care Facility Current Living Situation Comment: [facility] Independent living current occupational status: retired How many Children do You have: 2 Feels Safe at Home: Yes Safety Concerns: Feels Safe At This Time Childhood Exposure to Second-Hand Smoke: Yes Diet: regular caffeine: Yes Dental Care, Regularly: Yes Physical Activity Frequency: Does not Exercise Seatbelt Use: always Sunscreen Use: Yes Assistive Devices: Wheelchair Review of Systems 2 Review of Systems: Constitutional: + Fatigue. No Weight Change, No Fever, No Chills, No Night Sweats, No Malaise ENT/Mouth: No Hearing Changes, No Ear Pain, No Nasal Congestion, No Sinus Pain, No Hoarseness, No sore throat, No Rhinorrhea, No Swallowing Difficulty Eyes: No Eye Pain, No Swelling, No Redness, No Foreign Body, No Discharge, No Vision Changes Cardiovascular: No Chest Pain, No SOB, No PND, No Dyspnea on Exertion, No Orthopnea, No Claudication, No Edema, No Palpitations Respiratory: + dry Cough, + expiratory wheezing, No Sputum, No Smoke Exposure, No Dyspnea at this time Gastrointestinal: No Nausea, No Vomiting, No Diarrhea, No Constipation, No Pain, No Heartburn, No Anorexia, No Dysphagia, No Hematochezia, No Melena, No Flatulence, No Jaundice Genitourinary: No Dysuria, No Urinary Frequency, No Hematuria. Musculoskeletal: + right knee swelling. No Arthralgias, No Myalgias, No Joint Stiffness, No Back Pain, No Neck Pain, No Injury History Skin: No Skin Lesions, No Pruritis, No Hair Changes, No Breast/Skin Changes, No Nipple Discharge Neuro: Generalized Weakness, No Numbness, No Paresthesias, No Loss of Consciousness, No Syncope, No Dizziness, No Headache, No Coordination Changes, No Recent Falls Heme/Lymph: No Bruising, No Bleeding, No Transfusions History, No Lymphadenopathy Endocrine: No Polyuria, No Polydipsia, No Temperature Intolerance Physical Exam 2 Physical Exam: VITALS: Reviewed. WEIGHT/BMI reviewed. GEN: well nourished patient lying in bed with flat affect in no apparent distress. PSYCH: Good Judgment. AOx3. Normal memory, mood, and affect. HEENT -Head: NC/AT; -Eyes: PERRL, EOMI. No discharge or redn ess; -Ears: External ears are normal. Normal TMs. -Nose: Normal nares. -Mouth and throat: MMM. Normal gums, muc leonard, palate,. Good dentition. NECK: Supple, with no masses. CV: Irregular rat and rhythm, + systolic murmur, no rubs, or gallops.. LUNGS: Expiratory wheezing noted in bilateral upper lobes with diminished breath sound in bilateral lower lobes, chest rise symmetrical, breathing at rest nonlabored. ABD: Soft, round, NT/ND, NBS, no masses or organomegaly. : N/A SKIN: Warm, well perfused. No skin rashes or abnormal lesions. EXT: No clubbing, cyanosis, or edema. NEURO: Wheelchair bound, Normal muscle strength and tone in bilateral upper extremities. No focal deficits. Results & Data Results & Data Vital Signs (Past 12 Hours) Vital Signs Temp Pulse Pulse Resp BP Pulse Ox O2 Del Method 10/13/24 09:21 92 Nasal Cannula 10/13/24 07:59 37 C 79 24 105/68 85 L Room Air 10/13/24 07:43 50 L 10/13/24 07:19 78 16 93 Nasal Cannula 10/13/24 03:33 36.5 C 75 16 113/66 92 Nasal Cannula O2 Flow Rate 10/13/24 09:21 2 10/13/24 07:59 10/13/24 07:43 10/13/24 07:19 2 10/13/24 03:33 2 Laboratory Results 10/13/24 10:46 10/13/24 10:46 Diagnostic Findings Chest X-ray [id number] @ 1125 IMPRESSION: 1. No change in low lung volumes. Right basilar opacity favors atelectasis although an infectious process could appear similar. 2. Linear left basilar density consistent with atelectasis. Medications Administered Bronchitis due to hMPV; Obesity hypoventilation syndrome; atelectasis, Hypoxia PG Care Time/CCT Total # of Minutes Spent Total Time Spent: 79 Total Time Spent with Patient: Total time spent is greater than 50% in coordination of care (as documented) at patient's floor/unit and/or counseling patient: Coding Level of Care Code 97558 INT INP/OBS CARE MIN Diagnoses Bronchitis due to human metapneumovirus (hMPV) J40; B97.81 Cough R05.9 Fatigue R53.83 Atelectasis J98.11 Obesity hypoventilation syndrome E66.2 Obstructive sleep apnea G47.33 Time Spent (min) 79
[2024-10-13] MEDS ORDERED: ALBUT/IPRATROP 3MG/0.5MG NEB 3 ML VIAL NEB PRN (17:13)
[2024-10-13] MEDS: methylPREDNISolone 125 MG/2 ML VIAL IV STA (18:22)
--- NOTE | 2024-10-13 18:26 | Hospitalist Progress Note ---
Date of Service October 13, 2024 Assessment & Plan (1) Weakness: (2) Infection due to human metapneumovirus (hMPV): (3) MRSA bacteremia: Plan 78 years old male with PMH of FULL CODE @ [facility] @ [place], obesity with BMI 34.8 (height 183.2 cm; weight 116.5 kg), LEONARD not on CPAP, anxiety disorder, major depression, GERD, RA, chronic normocytic, normochromic anemia with baseline Hb range, 11.4 - 13.5 g/dL (04/07/2024 to 10/03/2024), urinary incontinence with recurrent ESBL Proteus mirabilis UTI (as noted on 07/22/2024, 08/12/2024, 08/26/2024 urine cultures), syncope, myoclonus, paroxysmal A-fib, CAD, and chronic systolic CHF with reduced RV systolic function and preserved LVEF 65-70% (as noted on 07/03/2023, 12:06pm TTE, CARDS Dr. 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 ER evaluation revealed no leukocytosis, H&H 11.7/36.9; PT/INR WNL; CMP BUN 25, ratio 26, calcium 8.4, AST 97, ALT 85; troponin 30.1, pending repeat; BNP 384, albumin 3.17: BioFire positive for metapneumovirus (10/06/2024, 5:02pm); CXR accentuated bronchovascular markings and pulmonary reticulation bilaterally related to bronchitis, no consolidation, stable small pulmonary nodule shadow in RLL; EKG NSR, LAD, pulmonary disease pattern, nonspecific T wave abnormality at 81 bpm. Patient received empiric meropenem 1 g IV, and vancomycin, bumetanide, albuterol, guaifenesin/dextromethorphan, and antitussive in the ER. 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 Unable to sleep at night and becoming very SOB with coughing episodes. Worsening since initial start. Pt is on antibiotics for known infection, has been taking as prescribed. Suspect weakness 2/2 viral illness. - CBC without leukocytosis; BMP CO2 31, anion gap 5; BNP 387 - CBC am - Biofire (+) human metapneumovirus -- contact precautions - CXR exaggerated bronchovascular markings and pulmonary reticulations bilaterally likely related to bronchitis, stable small pulmonary nodule in RLL - EKG appears normal sinus with pulmonary disease pattern at 81 bpm -Patient was more lethargic on 10/12/2024, likely secondary to oral opiates for cough suppression and metabolic contraction alkalosis, oxygen goal also titrated and placed on BIPAP HS; patient will start BIPAP during the daytime on 10/13/2024 to mitigate lethargy. - CT scan of neck to assess for tightening of airway was negative. - Hypertonic saline nebs (cough worse with it, so will discontinue) - DuoNeb scheduled; added budesonide nebs BID (10/09/2024, 7:46 pm). - continue Tessalon Perles for PM so patient can rest - continue magic mouthwash PRN continue supportive care - No additional abx -added flonase 50ug/spray, 2 sprays to each nostril daily (10/12/2024, 1:27pm), nasal saline spray #MRSA bacteremia/recurrent R knee MRSA PJI PICC line placed 09/02 for long-term antibiotics, on vancomycin and meropenem until 10/12/2024. completed: - Vancomycin 1.75 g every 24 hours IV - Meropenem 100 mg every 8 hours IV -will transition to bactrim (10/13/2024, 9:00 am), can pull out PICC line on 10/13, may consider keeping until discharge for ease of lab draws #Pressure ulcer of right foot, stage 3" and "Non-pressure chronic ulcer of other part of left foot limited to breakdown of skin, Non-pressure chronic ulcer of other part of right foot limited to breakdown of skin continue current wound care appears stable #HFrEF- Daily weights, I+Os; Bumex 0.5mg, Entresto - Will increase bumex to 1mg BID17 IV at admission given significant edema BLE, adjust as appropriate #NICOLÁS- Ferrous sulfate, folic acid, H/H 11.7/36.9- CBC am #Recurrent MDR UTI- Most recent urine culture positive for ESBL Proteus and VRE E faecalis; UA currently appearing uninfected but on antibiotic, d/c from [facility] #PAF/flutter- Amiodarone 200mg, rivaroxaban - continue #LEONARD- CPAP at bedtime if pt can tolerate #Transaminitis- History of, thought to fluctuate with infections; AST/ALT 97/85, no abdominal pain, 1 episode vomiting following coughing spell #HTN- Metoprolol succinate 12.5mg - continue #Recurrent foot ulcer- R foot, wound care (dressed with Aquacel Ag and Mepilex with changes every other day), gabapentin, hydro/acetaminophen; wound care consulted #RA- No longer on Rinvoq since 04/2024 #Depression/Anxiety- Duloxetine, mirtazapine - continue #GERD- Omeprazole - continue #Dyslipidemia- Pravastatin - continue Dispo: pending clinical improvement VTE Prophylaxis: Rivaroxaban Admission and Anticipated Discharge Date Admission Date: October 06, 2024 Subjective "Still got that barking cough. Does it ever go away? The doctors said I have the human metapneumovirus. My right knee doesn't hurt. It's swollen, but it doesn't hurt." Review of Systems Constitutional: Negative for antecedent/coincident fevers, chills, diaphoresis, wheeze, hemoptysis, chest pains, palpitations, pleurisy, nausea, vomiting, diarrhea, pelvic pain, hematemesis, hematochezia, melena, hematuria, dysuria, frequency, urgency, headaches, dizziness, lightheadedness, visual changes, hearing changes, weakness, falls, syncope, trauma, travel history, sick contacts, or food/drug ingestions novel or new. All other review of systems are reported as negative by the patient on 10/13/2024. Physical Exam Constitutional: General: Comfortable, coherent, cooperative. Wide awake and alert. Not confused, lethargic, or obtunded. Patient speaks in complete, fluent, and articulate sentences without pause, cough, or wheeze, with O2 sat 93% on 2 liters/minute O2 via nasal cannula (10/13/2024, 3:57pm). HEENT: Normocephalic, atraumatic. Extra-ocular muscles intact. Pupils equally round and reactive to light. No nystagmus, gaze paresis, anisocoria, miosis, mydriasis, hyphema, scleral injection, conjunctivitis, or pterygium. No otorrhea or rhinorrhea. No pharyngeal erythema, edema, or discharge. Neck: Supple, no stridor, bruit, goiter, or hepato-jugular reflux. Jugular venous pressure is estimated to be 3 cm above the sternal angle of Marques, which in turn, is 5 cm above the level of the right atrium; with jugular venous pressure estimated to be 8 cm, then, there is no jugular venous d istention on 10/13/2024. Lymphatics: No cervical (anterior/posterior), supraclavicular, infraclavicular, axillary, epitrochlear, or inguinal adenopathy. Chest: Symmetric rise and fall with respirations. Non-tender to palpation. Lungs: Coarse breath sounds bilaterally. Heart: Regular rate and rhythm. S1 and S2 noted. No S3 or S4 summation gallop. No tripartite friction rub. Grade II/ early systolic murmur @ LLSB without radiation to the carotids, axilla, or back, and which remains invariant in regards to the respiratory cycle. Abdomen: Soft, generalized tenderness, non-distended. No rebound, guarding, Carrington's sign, or organomegaly. Bowel sounds auscultated in all 4 quadrants. Drain in situ on right. Extremities: No clubbing, cyanosis. Right knee edematous and slightly warm/indurated, but non-tender and without erythema, crepitus, fluctuance, discharge (sanguineous, serous, suppurative), ulceration, malodor, or lymphangitic streaking. 2+ pedal pulses bilaterally. Skin: No decubitus ulcer, exanthem, or enanthem. Genito-urinary: No urethral discharge. + song catheter with 300 mL of clear yellow urine on 10/13/2024. Neurology: Alert and oriented in regards to person, place, time, and situation. DTR+ and symmetric. 3/5 motor strength in all 4 extremities, both proximally and distally with patient reporting that he has not walked in the past 2 years while living @ [facility]. No pronator drift. No facial droop. No dysarthria. Psychiatry: No homicidal ideation. No suicidal ideation. No flat affect; smiles appropriately. Results & Data Results & Data Vital Signs (Past 12 Hours) Vital Signs Temp Pulse Pulse Resp BP Pulse Ox O2 Del Method 10/13/24 15:57 36.4 C L 73 20 117/72 93 Nasal Cannula 10/13/24 15:38 72 18 85 L Room Air 10/13/24 15:12 Room Air 10/13/24 15:06 68 10/13/24 09:21 92 Nasal Cannula 10/13/24 07:59 37 C 79 24 105/68 85 L Room Air 10/13/24 07:43 50 L 10/13/24 07:19 78 16 93 Nasal Cannula O2 Flow Rate 10/13/24 15:57 2 10/13/24 15:38 10/13/24 15:12 10/13/24 15:06 10/13/24 09:21 2 10/13/24 07:59 10/13/24 07:43 10/13/24 07:19 2 Laboratory Results Abnormal lab results 10/13/24 Range/Units 10:46 RBC 3.88 L (4.70-6.10) M/uL Hgb 11.5 L (14.0-18.0) g/dl Hct 34.9 L (42.0-52.0) % RDW Std Deviation 53.3 H (36.4-46.3) fL RDW Coeff of Sammie 16.2 H (11.5-14.5) % Carbon Dioxide 34 H (21-32) mmol/L BUN 36 H (6-23) mg/dl BUN/Creatinine Ratio 37.1 H (10-20) Glucose 114 H (70-99(Fasting)) mg/dl Calcium 8.1 L (8.6-10.3) mg/dl C-Reactive Protein 12.20 H (0-0.5) mg/dl PG Care Time/CCT Total # of Minutes Spent Total Time Spent with Patient: Total time spent is greater than 50% in coordination of care (as documented) at patient's floor/unit and/or counseling patient: Coding Level of Care Code 13644 SUB INP/OBS CARE 2/35MIN Diagnoses Weakness R53.1 Infection due to human metapneumovirus (hMPV) B34.8 MRSA bacteremia R78.81; B95.62
[2024-10-13] MEDS: FORMOTEROL 20 MCG/2 ML VIAL NEB SCH (19:51)
[2024-10-13] MEDS: BUDESONIDE 0.25 MG/2 ML VIAL (PULMICORT) NEB SCH (19:52)
[2024-10-14 05:00] LABS: Base Excess ABG 4.8 mEq/L (-9-1.8); HCO3 ABG 30 mmol/L (19-24); Oxygen Saturation ABG 93.3 % (90-95); PCO2 ABG 48 mmHg (35-46); PO2 ABG 67 mmHg (80-95); pH ABG 7.41 (7.35-7.45)
[2024-10-14 05:01] LABS: Allen Test Pos (Pos)
[2024-10-14] MEDS: methylPREDNISolone 40 MG in SYRINGE 0 ML IV SCH (08:04)
[2024-10-14] MEDS ORDERED: methylPREDNISolone 10 mg/mL (For Ped Dose < 7mg) IV SCH (09:00)
[2024-10-14] MEDS: OPTIRAY 320 125ml IV ONE (10:38)
--- NOTE | 2024-10-14 10:53 | CT Scan Report ---
CT angio chest PE protocol CT DOSE: 864.71 mGy.cm HISTORY: PE. TECHNIQUE: Multiple CTA images of the chest were obtained after the intravenous administration of 75 ml Optiray. Coronal and sagittal MIPS were obtained from the axial data set and were submitted for r eview. All measurements were obtained according to NASCET criteria. A dose lowering technique was ut ilized adhering to the principles of ALARA. COMPARISON STUDY: Chest x-ray of 10/10/2024 FINDINGS: There are trace airway secretions. There is mild stranding consolidation medial dependent l kylee bases bilaterally which could represent atelectasis or early pneumonia. There is a small area of patchy groundglass opacity at the anterior right upper lobe consistent with small area of pneumonitis or early pneumonia. No other consolidation or pleural effusion. No pneumothorax. There are mediastin al and right hilar lymph node calcifications consistent with prior granulomatous disease. No enlarged adenopathy. No pericardial effusion. There are diffuse coronary artery calcifications. No thoracic a ortic aneurysm. No pulmonary embolism. There are diffuse thoracic spine degenerative changes. IMPRESSION: 1. No pulmonary embolism. 2. Atelectasis versus early pneumonia in the lung bases and small area of pneumonitis/early pneumonia right upper lung lobe. ACT 112: Negative or not required by law. The above report was generated using voice recognition software. It may contain grammatical, syntax o r spelling errors. Electronically signed by: Brian Kim M.D. 10/14/2024 10:51 AM
--- NOTE | 2024-10-14 13:06 | Pulmonology Progress Note ---
Date of Service October 14, 2024 Assessment & Plan (1) Bronchitis due to human metapneumovirus (hMPV): (2) Cough: (3) Fatigue: (4) Atelectasis: (5) Obesity hypoventilation syndrome: (6) Obstructive sleep apnea: Plan 78-year-old male with a history of obesity, paroxysmal atrial fibrillation, peripheral artery disease, ambulatory dysfunction who is currently hospitalized due to chronic joint infection and human metapneumovirus bronchiolitis. Overnight on 10/13/2024 patient had episode of unresponsiveness. Patient placed on BiPAP with improvement of mentation within roughly an hour. Which could be a sign of hypercapnic narcolepsy. Patient wore BiPAP for approximately 4 hours. Patient eating breakfast this am and not complaining of SOB. Wheezing heard on 10/13/24 present but improved. Hypoxia related to related to human metapneumovirus; Bronchiolitis from hMPV LEONARD; obesity hypoventilation syndrome and atelectasis. -Cont duo nebs PRN for wheezing and SOB -Continue budesonide and formoterol nebs bid -Contiune 40mg daily of methylprednisolone. -Will trial AVAPS tonight. -Pulmonary clearance techniques to include flutter valve q4h, ISB q2h while awake -If secretions are difficult to clear could consider hypertonic nebulizes with duonebs. -OOB to chair as much as possible. -Can follow up with pulmonary outpatient or with [facility] pulmonology outpatient. CTA Chest on 10/14/2024 reviewed and noted bibasilar atelectasis with some right upper middle lobe atelectasis. ABG 10/14/2024 pH 7.41/48/67/30 Admission and Anticipated Discharge Date Admission Date: October 06, 2024 Supervising Physician Co-Signing Physician Notes Patient separately seen and examined from HEBERT: 78-year-old male with a history of obesity, paroxysmal atrial fibrillation, peripheral artery disease, ambulatory dysfunction who is currently hospitalized due to chronic joint infection and human metapneumovirus bronchiolitis. Patient endorses shortness of breath even at rest and wheezing. He also notes a cough that is mostly nonproductive. He denies any prior history of tobacco abuse or underlying lung disease. Prior labs reviewed with evidence of eosinophilia on CBC. Chest x-ray 10/10/2024 personally reviewed which revealed atelectasis in the right lower lobe and low lung volumes. CT chest personally reviewed 10/14/2024 without evidence of pulmonary embolism and evidence of atelectasis versus early pneumonia at the lung bases and groundglass opacity in the right upper lobe. On exam, patient significantly improved today. Ambulatory. Denies any chest pain or shortness of breath. Patient with likely human metapneumovirus bronchiolitis and LEONARD/OHS. Continue IV methylprednisone, nebulized budesonide at a dose of 0.5 mg twice daily and formoterol twice daily. Continue DuoNebs on an as-needed basis. On the patient is ready for discharge, recommend high-dose budesonide/formoterol MDI (160/4.5), 2 puffs twice daily. Continue incentive spirometry every hour and flutter valve 4 times daily. Trial the patient on AVAPS at night. Target tidal volumes of 600 mL. Pulmonary to follow-up tomorrow. Subjective "I am not having trouble breathing." "I don't remember not being able to wake up yesterday." "I wore the breathing mask last night." Review of Systems 2 Review of Systems: Constitutional: + Fatigue. No Weight Change, No Fever, No Chills, No Night Sweats, No Malaise ENT/Mouth: No Hearing Changes, No Ear Pain, No Nasal Congestion, No Sinus Pain, No Hoarseness, No sore throat, No Rhinorrhea, No Swallowing Difficulty Eyes: No Eye Pain, No Swelling, No Redness, No Foreign Body, No Discharge, No Vision Changes Cardiovascular: No Chest Pain, No SOB, No PND, No Dyspnea on Exertion, No Orthopnea, No Claudication, No Edema, No Palpitations Respiratory: + dry barky Cough, + wheezing, No Sputum, No Smoke Exposure, No Dyspnea at this time Gastrointestinal: No Nausea, No Vomiting, No Diarrhea, No Constipation, No Pain, No Heartburn, No Anorexia, No Dysphagia, No Hematochezia, No Melena, No Flatulence, No Jaundice Genitourinary: No Dysuria, No Urinary Frequency, No Hematuria. Musculoskeletal: + right knee swelling. No Arthralgias, No Myalgias, No Joint Stiffness, No Back Pain, No Neck Pain, No Injury History Skin: No Skin Lesions, No Pruritis, No Hair Changes, No Breast/Skin Changes, No Nipple Discharge Neuro: Generalized Weakness, No Numbness, No Paresthesias, No Loss of Consciousness, No Syncope, No Dizziness, No Headache, No Coordination Changes, No Recent Falls Heme/Lymph: No Bruising, No Bleeding, No Transfusions History, No Lymphadenopathy Endocrine: No Polyuria, No Polydipsia, No Temperature Intolerance Physical Exam 2 Physical Exam: VITALS: Reviewed. WEIGHT/BMI reviewed. GEN: well nourished patient lying in bed with flat affect in no apparent distress. PSYCH: Good Judgment. AOx3. Normal memory, mood, and affect. HEENT -Head: NC/AT; -Eyes: PERRL, EOMI. No discharge or redn ess; -Ears: External ears are normal. Normal TMs. -Nose: Normal nares. -Mouth and throat: MMM. Normal gums, muc leonard, palate,. Good dentition. NECK: Supple, with no masses. CV: Irregular rat and rhythm, + systolic murmur, no rubs, or gallops.. LUNGS: Expiratory wheezing noted in bilateral upper lobes improved from yesterday with diminished breath sound in bilateral lower lobes, chest rise symmetrical, breathing at rest nonlabored. ABD: Soft, round, NT/ND, NBS, no masses or organomegaly. : N/A SKIN: Warm, well perfused. No skin rashes or abnormal lesions. EXT: No clubbing, cyanosis, or edema. NEURO: Wheelchair bound, Normal muscle strength and tone in bilateral upper extremities. No focal deficits. Results & Data Results & Data Vital Signs (Past 12 Hours) Vital Signs Temp Pulse Pulse Resp BP Pulse Ox O2 Del Method 10/14/24 11:15 36.5 C 72 18 135/80 94 Nasal Cannula 10/14/24 08:00 61 10/14/24 07:59 36.3 C L 61 18 142/86 H 93 Nasal Cannula 10/14/24 07:20 79 16 95 Nasal Cannula 10/14/24 03:17 72 18 126/78 93 Nasal Cannula 10/14/24 02:38 72 18 100/62 94 Nasal Cannula 10/14/24 02:21 67 18 95 O2 Flow Rate FiO2 10/14/24 11:15 2 10/14/24 08:00 10/14/24 07:59 2 10/14/24 07:20 2 10/14/24 03:17 2 10/14/24 02:38 2 10/14/24 02:21 35 Laboratory Results 10/10/24 10/11/24 10/11/24 14:33 05:41 14:26 ABG pH ABG pCO2 ABG pO2 ABG HCO3 ABG O2 Saturation ABG Base Excess VBG pH 7.36 7.41 7.41 VBG pCO2 66 H 63 H 58 H VBG pO2 58 38 64 VBG HCO3 37 40 37 VBG O2 Saturation 86.9 68.8 91.6 VBG Base Excess 9.2 12.4 9.9 10/14/24 04:58 ABG pH 7.41 ABG pCO2 48 H ABG pO2 67 L ABG HCO3 30 H ABG O2 Saturation 93.3 ABG Base Excess 4.8 H VBG pH VBG pCO2 VBG pO2 VBG HCO3 VBG O2 Saturation VBG Base Excess 10/13/24 10:46 10/13/24 10:46 Diagnostic Findings CTA Chest 10/14/2024 @ 1319 IMPRESSION: 1. No pulmonary embolism. 2. Atelectasis versus early pneumonia in the lung bases and small area of pneumonitis/early pneumonia right upper lung lobe. PG Care Time/CCT Total # of Minutes Spent Total Time Spent with Patient: Total time spent is greater than 50% in coordination of care (as documented) at patient's floor/unit and/or counseling patient: Coding Level of Care Code 44531 SUB INP/OBS CARE 2/35MIN Diagnoses Bronchitis due to human metapneumovirus (hMPV) J40; B97.81 Cough R05.9 Fatigue R53.83 Atelectasis J98.11 Obesity hypoventilation syndrome E66.2 Obstructive sleep apnea G47.33 Time Spent (min) 38
[2024-10-14] MEDS: SODIUM CHLORIDE 0.65% NA SOLN 45 ML (OCEAN) PRN (13:47)
--- NOTE | 2024-10-14 16:14 | Hospitalist Progress Note ---
Date of Service October 14, 2024 Assessment & Plan (1) Weakness: (2) Infection due to human metapneumovirus (hMPV): (3) MRSA bacteremia: Plan 78 years old male with PMH of FULL CODE @ [facility] [place], obesity with BMI 34.8 (height 183.2 cm; weight 116.5 kg), LEONARD not on CPAP, anxiety disorder, major depression, GERD, RA, chronic normocytic, normochromic anemia with baseline Hb range, 11.4 - 13.5 g/dL (04/07/2024 to 10/03/2024), urinary incontinence with recurrent ESBL Proteus mirabilis UTI (as noted on 07/22/2024, 08/12/2024, 08/26/2024 urine cultures), syncope, myoclonus, paroxysmal A-fib, CAD, and chronic systolic CHF with reduced RV systolic function and preserved LVEF 65-70% (as noted on 07/03/2023, 12:06pm TTE, CARDS Dr. 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 ER evaluation revealed no leukocytosis, H&H 11.7/36.9; PT/INR WNL; CMP BUN 25, ratio 26, calcium 8.4, AST 97, ALT 85; troponin 30.1, pending repeat; BNP 384, albumin 3.17: BioFire positive for metapneumovirus (10/06/2024, 5:02pm); CXR accentuated bronchovascular markings and pulmonary reticulation bilaterally related to bronchitis, no consolidation, stable small pulmonary nodule shadow in RLL; EKG NSR, LAD, pulmonary disease pattern, nonspecific T wave abnormality at 81 bpm. Patient received empiric meropenem 1 g IV, and vancomycin, bumetanide, albuterol, guaifenesin/dextromethorphan, and antitussive in the ER. 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 Unable to sleep at night and becoming very SOB with coughing episodes. Worsening since initial start. Pt is on antibiotics for known infection, has been taking as prescribed. Suspect weakness 2/2 viral illness. - CBC without leukocytosis; BMP CO2 31, anion gap 5; BNP 387 - CBC am - Biofire (+) human metapneumovirus -- contact precautions - CXR exaggerated bronchovascular markings and pulmonary reticulations bilaterally likely related to bronchitis, stable small pulmonary nodule in RLL - EKG appears normal sinus with pulmonary disease pattern at 81 bpm -Patient was more lethargic on 10/12/2024, likely secondary to oral opiates for cough suppression and metabolic contraction alkalosis, oxygen goal also titrated and placed on BIPAP HS; patient started BIPAP during the daytime on 10/13/2024 to mitigate lethargy. - CT scan of neck to assess for tightening of airway was negative. - Hypertonic saline nebs (cough worse with it, so will discontinue) - DuoNeb scheduled; added budesonide nebs BID (10/09/2024, 7:46 pm). - continue Tessalon Perles for PM so patient can rest - continue magic mouthwash PRN continue supportive care - No additional abx - added flonase 50ug/spray, 2 sprays to each nostril daily (10/12/2024, 1:27pm), nasal saline spray - Patient subsequently underwent PULM Service evaluation with Dr. Liam Moore (10/14/2024, 1:02pm), and who recommends the following interventions: "Continue IV methylprednisone, nebulized budesonide at a dose of 0.5 mg twice daily and formoterol twice daily. Continue DuoNebs on an as-needed basis. On the patient is ready for discharge, recommend high-dose budesonide/formoterol MDI (160/4.5), 2 puffs twice daily. Continue incentive spirometry every hour and flutter valve 4 times daily. Trial the patient on AVAPS at night. Target tidal volumes of 600 mL." #MRSA bacteremia/recurrent R knee MRSA PJI PICC line placed 09/02 for long-term antibiotics, on vancomycin and meropenem until 10/12/2024. completed: - Vancomycin 1.75 g every 24 hours IV - Meropenem 100 mg every 8 hours IV -will transition to bactrim (10/13/2024, 9:00 am), can pull out PICC line on 10/13, may consider keeping until discharge for ease of lab draws Other secondary medical conditions include: #Pressure ulcer of right foot, stage 3" and "Non-pressure chronic ulcer of other part of left foot limited to breakdown of skin, Non-pressure chronic ulcer of other part of right foot limited to breakdown of skin continue current wound care appears stable #HFrEF- Daily weights, I+Os; Bumex 0.5mg, Entresto - Will increase bumex to 1mg BID17 IV at admission given significant edema BLE, adjust as appropriate #NICOLÁS- Ferrous sulfate, folic acid, H/H 11.7/36.9- CBC am #Recurrent MDR UTI- Most recent urine culture positive for ESBL Proteus and VRE E faecalis; UA currently appearing uninfected but on antibiotic, d/c from [facility] #PAF/flutter- Amiodarone 200mg, rivaroxaban - continue #LEONARD- CPAP at bedtime if pt can tolerate #Transaminitis- History of, thought to fluctuate with infections; AST/ALT 97/85, no abdominal pain, 1 episode vomiting following coughing spell #HTN- Metoprolol succinate 12.5mg - continue #Recurrent foot ulcer- R foot, wound care (dressed with Aquacel Ag and Mepilex with changes every other day), gabapentin, hydro/acetaminophen; wound care consulted #RA- No longer on Rinvoq since 04/2024 #Depression/Anxiety- Duloxetine, mirtazapine - continue #GERD- Omeprazole - continue #Dyslipidemia- Pravastatin - continue Dispo: pending clinical improvement VTE Prophylaxis: Rivaroxaban Admission and Anticipated Discharge Date Admission Date: October 06, 2024 Subjective "I am breathing better today. No complaints. When can I go back to [facility]?" Review of Systems Constitutional: Negative for antecedent/coincident fevers, chills, diaphoresis, wheeze, hemoptysis, chest pains, palpitations, pleurisy, nausea, vomiting, diarrhea, pelvic pain, hematemesis, hematochezia, melena, hematuria, dysuria, frequency, urgency, headaches, dizziness, lightheadedness, visual changes, hearing changes, weakness, falls, syncope, trauma, travel history, sick contacts, or food/drug ingestions novel or new. All other review of systems are reported as negative by the patient on 10/14/2024. Physical Exam Constitutional: General: Comfortable, coherent, cooperative. Wide awake and alert. Not confused, lethargic, or obtunded. Patient speaks in complete, fluent, and articulate sentences without pause, cough, or wheeze, with O2 sat 94% on 2 liters/minute O2 via nasal cannula (10/14/2024, 11:15am). HEENT: Normocephalic, atraumatic. Extra-ocular muscles intact. Pupils equally round and reactive to light. No nystagmus, gaze paresis, anisocoria, miosis, mydriasis, hyphema, scleral injection, conjunctivitis, or pterygium. No otorrhea or rhinorrhea. No pharyngeal erythema, edema, or discharge. Neck: Supple, no stridor, bruit, goiter, or hepato-jugular reflux. Jugular venous pressure is estimated to be 3 cm above the sternal angle of Marques, which in turn, is 5 cm above the level of the right atrium; with jugular venous pressure estimated to be 8 cm, then, there is no jugular venous distention on 10/14/2024. Lymphatics: No cervical (anterior/posterior), supraclavicular, infraclavicular, axillary, epitrochlear, or inguinal adenopathy. Chest: Symmetric rise and fall with respirations. Non-tender to palpation. Lungs: Coarse breath sounds bilaterally. Heart: Regular rate and rhythm. S1 and S2 noted. No S3 or S4 summation gallop. No tripartite friction rub. Grade II/ early systolic murmur @ LLSB without radiation to the carotids, axilla, or back, and which remains invariant in regards to the respiratory cycle. Abdomen: Soft, generalized tenderness, non-distended. No rebound, guarding, Carrington's sign, or organomegaly. Bowel sounds auscultated in all 4 quadrants. Drain in situ on right. Extremities: No clubbing, cyanosis. Right knee edematous and slightly warm/indurated, but non-tender and without erythema, crepitus, fluctuance, discharge (sanguineous, serous, suppurative), ulceration, malodor, or lymphangitic streaking. 2+ pedal pulses bilaterally. Skin: No decubitus ulcer, exanthem, or enanthem. Genito-urinary: No urethral discharge. + song catheter with 200 mL of bel urine on 10/14/2024. Neurology: Alert and oriented in regards to person, place, time, and situation. DTR+ and symmetric. 3/5 motor strength in all 4 extremities, both proximally and distally with patient reporting that he has not walked in the past 2 years while living @ [facility]. No pronator drift. No facial droop. No dysarthria. Psychiatry: No homicidal ideation. No suicidal ideation. No flat affect; smiles appropriately. Results & Data Results & Data Vital Signs (Past 12 Hours) Vital Signs Temp Pulse Pulse Resp BP Pulse Ox O2 Del Method 10/14/24 11:15 36.5 C 72 18 135/80 94 Nasal Cannula 10/14/24 08:00 61 10/14/24 07:59 36.3 C L 61 18 142/86 H 93 Nasal Cannula 10/14/24 07:20 79 16 95 Nasal Cannula O2 Flow Rate 10/14/24 11:15 2 10/14/24 08:00 10/14/24 07:59 2 10/14/24 07:20 2 Laboratory Results Abnormal lab results 10/13/24 10/14/24 Range/Units 21:59 04:58 ABG pCO2 48 H (35-46) mmHg ABG pO2 67 L (80-95) mmHg ABG HCO3 30 H (19-24) mmol/L ABG Base Excess 4.8 H (-9-1.8) mEq/L POC Glucose 141 H (70-99) mg/dl PG Care Time/CCT Total # of Minutes Spent Total Time Spent with Patient: Total time spent is greater than 50% in coordination of care (as documented) at patient's floor/unit and/or counseling patient: Coding Level of Care Code 05478 SUB INP/OBS CARE 2/35MIN Diagnoses Weakness R53.1 Infection due to human metapneumovirus (hMPV) B34.8 MRSA bacteremia R78.81; B95.62
[2024-10-15 07:30] VITALS: RESP 20
[2024-10-15 11:31] VITALS: BP 135/80; PULSE 72; TEMP 97.7; O2SAT 94
--- NOTE | 2024-10-15 13:22 | Discharge Summary ---
Discharge Summary Date of Service October 15, 2024 Principal Dx & Hospital Course #1 = Principal Diagnosis (1) Weakness: (2) Infection due to human metapneumovirus (hMPV): (3) MRSA bacteremia: Plan 78 years old male with PMH of [facility] CODE @ [facility] [place], obesity with BMI 34.8 (height 183.2 cm; weight 116.5 kg), LEONARD not on CPAP, anxiety disorder, major depression, GERD, RA, chronic normocytic, normochromic anemia with baseline Hb range, 11.4 - 13.5 g/dL (04/07/2024 to 10/03/2024), urinary incontinence with recurrent ESBL Proteus mirabilis UTI (as noted on 07/22/2024, 08/12/2024, 08/26/2024 urine cultures), syncope, myoclonus, paroxysmal A-fib, CAD, and chronic systolic CHF with reduced RV systolic function and preserved LVEF 65-70% (as noted on 07/03/2023, 12:06pm TTE, CARDS Dr. 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 ER evaluation revealed no leukocytosis, H&H 11.7/36.9; PT/INR WNL; CMP BUN 25, ratio 26, calcium 8.4, AST 97, ALT 85; troponin 30.1, pending repeat; BNP 384, albumin 3.17: BioFire positive for metapneumovirus (10/06/2024, 5:02pm); CXR accentuated bronchovascular markings and pulmonary reticulation bilaterally related to bronchitis, no consolidation, stable small pulmonary nodule shadow in RLL; EKG NSR, LAD, pulmonary disease pattern, nonspecific T wave abnormality at 81 bpm. Patient received empiric meropenem 1 g IV, and vancomycin, bumetanide, albuterol, guaifenesin/dextromethorphan, and antitussive in the ER. Patient was subsequently admitted to the inpatient hospitalist service @ [facility] on 10/06/2024 with the following diagnoses: 1. 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 Unable to sleep at night and becoming very SOB with coughing episodes. Worsening since initial start. Pt is on antibiotics for known infection, has been taking as prescribed. Suspect weakness 2/2 viral illness. - CBC without leukocytosis; BMP CO2 31, anion gap 5; BNP 387 - CBC am - Biofire (+) human metapneumovirus -- contact precautions - CXR exaggerated bronchovascular markings and pulmonary reticulations bilaterally likely related to bronchitis, stable small pulmonary nodule in RLL - EKG appears normal sinus with pulmonary disease pattern at 81 bpm -Patient was more lethargic on 10/12/2024, likely secondary to oral opiates for cough suppression and metabolic contraction alkalosis, oxygen goal also titrated and placed on BIPAP HS; patient started BIPAP during the daytime on 10/13/2024 to mitigate lethargy. - CT scan of neck to assess for tightening of airway was negative. - Hypertonic saline nebs (cough worse with it, so will discontinue) - DuoNeb scheduled; added budesonide nebs BID (10/09/2024, 7:46 pm). - continue Tessalon Perles for PM so patient can rest - continue magic mouthwash PRN continue supportive care - No additional abx - added flonase 50ug/spray, 2 sprays to each nostril daily (10/12/2024, 1:27pm), nasal saline spray - Patient subsequently underwent PULM Service evaluation with Dr. Liam Moore (10/14/2024, 1:02pm), and who recommends the following interventions: "Continue IV methylprednisone, nebulized budesonide at a dose of 0.5 mg twice daily and formoterol twice daily. Continue DuoNebs on an as-needed basis. On the patient is ready for discharge, recommend high-dose budesonide/formoterol MDI (160/4.5), 2 puffs twice daily. Continue incentive spirometry every hour an d flutter valve 4 times daily. Trial the patient on AVAPS at night. Target tidal volumes of 600 mL." Patient subsequently stated on 10/15/2024, "I wanted to go home yesterday, but I wasn't discharged. I stayed overnight. My breathing is fine. I really want to go home now. I will get the overnight sleep study done at the [facility] as they will pay for the overnight sleep study to see if I have sleep apnea, and if I do, I will get a CPAP machine. I don't have a CPAP machine now at home, but I am not staying in hospital any longer. I would like to be discharged today and as soon as possible. I will see my family dcotor, Dr. Danny Soliman next week for a checkup visit. Thank you very much." Patient was subsequently discharged back to [facility] on 10/15/2024 with the prescriptions below electronically transmitted to [facility] ([address] [place] [id number]) on 10/15/2024, prior to patient's discharge back to [facility] on 10/15/2024: 1. Prednisone 40mg PO daily, each tablet 20mg, #10 tablets, no refills. 2. Budesonide 0.5mg / 2mL neb bid, each neb 0.5mg, #60 mL, no refills. 3. Formoterol 20ug / 2mL neb bid, each neb 20ug, #60 mL, no refills. 4. Duonebs q6 prn SOB/wheeze, each neb 3mL, #360 mL, no refills. Of note, patient received protonix 40mg PO daily (10/07/2024, 8:20am through 10/15/2024, 7:54am) to prophylax against steroid-associated gastritis, ulcer formation, and/or GI bleed while patient remained in [facility]. Patient will resume his home-scheduled omeprazole 20mg PO daily to prophylax against steroid-associated gastritis, ulcer formation, and/or GI bleed, starting on 10/16/2024 am, at [facility]. 2. MRSA bacteremia/recurrent R knee MRSA PJI PICC line was placed on 09/02/2024 for long-term antibiotics utilizing vancomycin and meropenem until 10/12/[address] Haylee Salguero. Patient subsequently completed, while in [facility]: - Vancomycin 1.75g IV daily x 4 doses (10/07/2024, 6:48am - 10/10/2024, 9:13am), vancomycin 1.5g IV daily x 2 doses (10/11/2024, 5:21am; 10/12/2024, 6:09am). - Meropenem 1 g IV q6 x 1 dose (10/06/2024, 6:00pm), meropenem 500mg IV q6 x 24 doses (10/07/2024, 2:14am - 10/12/2024, 9:31pm). - PICC was discontinued on 10/13/2024, and patient was started on bactrim DS tablet, 1 tablet PO bid (starting on 10/13/2024, 9:00 am, and last given on 10/15/2024, 7:55 am), and to be continued indefinitely for long-term suppression as per Infectious Disease Dr. Haylee Salguero. Patient was subsequently discharged back to [facility] on 10/15/2024 with the prescriptions below electronically transmitted to [facility] ([address] [place] [phone]) on 10/15/2024, prior to patient's discharge back to [facility] on 10/15/2024: Patient was subsequently discharged back to [facility] on 10/15/2024 with the prescription below electronically transmitted to [facility] ([address] [place] [phone]) on 10/15/2024, prior to patient's discharge back to [facility] on 10/15/2024: 5. Bactrim DS tablet, 1 tablet PO bid, #60 tablets, no refills Other secondary medical conditions include: #"Pressure ulcer of right foot, stage 3"; stage II sacral decubitus (present on admission date 10/06/2024), and "Non-pressure chronic ulcer of other part of left foot limited to breakdown of skin, Non-pressure chronic ulcer of other part of right foot limited to breakdown of skin" Patient received wound care utilizing Santyl (collagenase) topically applied da am[place] to affected areas and will continue this home-scheduled medication / wound care on hospital discharge back to [facility] on 10/15/2024. #Chronic systolic CHF with reduced RV systolic function and preserved LVEF 65- 70% (as noted on 07/03/2023, 12:06pm TTE, CARDS Dr. Irwin Simmons) - Daily weights, I+Os; asymptomatic on home-scheduled bumex 0.5mg PO daily (increased to bumex 1mg IV bid on admission date 10/06/2024 given significant bilateral antonio edema, before being discharged back to [facility] on 10/15/2024 with his home-scheduled bumex 0.5mg PO daily and sacubitril 24mg - valsartan 26mg PO bid) and home-scheduled sacubitril 24mg - valsartan 26mg PO bid while in [facility]. #NICOLÁS- Ferrous sulfate, folic acid, H/H 11.7/36.9- CBC am #Recurrent MDR UTI- Most recent urine culture positive for ESBL Proteus and VRE E faecalis; UA currently appearing uninfected but on antibiotic, d/c from [facility] #PAF/flutter- Amiodarone 200mg, rivaroxaban - continue #LEONARD- CPAP at bedtime if pt can tolerate #Transaminitis- History of, thought to fluctuate with infections; AST/ALT 97/85, no abdominal pain, 1 episode vomiting following coughing spell #HTN- Metoprolol succinate 12.5mg - continue #Recurrent foot ulcer- R foot, wound care (dressed with Aquacel Ag and Mepilex with changes every other day), gabapentin, hydro/acetaminophen; wound care consulted #RA- No longer on Rinvoq since 04/2024 #Depression/Anxiety- Duloxetine, mirtazapine - continue #GERD- Omeprazole - continue #Dyslipidemia- Pravastatin - continue Dispo: pending clinical improvement VTE Prophylaxis: Rivaroxaban Admission HPI Per Admitting Provider 78-year-old male PMHx HTN, dyslipidemia, anemia, A-fib, anxiety with depression, CAD, HFrEF, GERD, RA, urinary incontinence, syncope, LEONARD, myoclonus, and recurrent UTI presenting 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 Patient was most recently admitted to [facility] for septic arthritis and was at rehab until 09/30/2024. Cough has been bothersome for the past week and causing him to wake up throughout the night. He is undergoing rodger ly IV antibiotics through PICC line for infection spreading to the bloodstream, per patient (MRSA bacteremia, on meropenem and vancomycin through PICC until 10/12/2024). States that he was at rehab for approximately 2 weeks and was just discharged 09/30/2024 from here. States the following day, 10/01/2024, he started to experience a dry cough. From that time, the cough continued to worsen and he has also be experiencing whole body aches, headaches, a sore throat, vomiting, diarrhea, and SOB. The cough is so significant that he cannot catch his breath, and it keeps him up at night. Reports that when he coughs, he feels dizzy and as though he may pass out. Generalized weakness. Patient has been taking his antibiotics as prescribed. Believes that his wound sites are at their baseline if not improved, and he is not having urinary symptoms. Reports to fever but has had chills. No chest pain, palpitations, constipation, numbness/tingling, or LOC. No additional URI symptoms. Has never had this happen before. ED evaluation reveals no leukocytosis, H&H 11.7/36.9; PT/INR WNL; CMP BUN 25, ratio 26, calcium 8.4, AST 97, ALT 85; troponin 30.1, pending repeat; BNP 384, albumin 3.17: BioFire positive for metapneumovirus; CXR accentuated bronchovascular markings and pulmonary reticulation bilaterally related to bronchitis, no consolidation, stable small pulmonary nodule shadow in RLL; EKG NSR, LAD, pulmonary disease pattern, nonspecific T wave abnormality at 81 bpm.; Provided with meropenem 1 g IV, and sounds in 8, bumetanide, albuterol, guaifenesin/dextromethorphan, and antitussive in ED. Please see Dr. Amor's attestation for adjustments/additions to treatment plan. Discharge Exam Constitutional General: Comfortable, coherent, cooperative. Wide awake and alert. Not confused, lethargic, or obtunded. Patient speaks in complete, fluent, and articulate sentences without pause, cough, or wheeze, with O2 sat 94% on room air (10/15/2024, 11:29 am). HEENT: Normocephalic, atraumatic. Extra-ocular muscles intact. Pupils equally round and reactive to light. No nystagmus, gaze paresis, anisocoria, miosis, mydriasis, hyphema, scleral injection, conjunctivitis, or pterygium. No otorrhea or rhinorrhea. No pharyngeal erythema, edema, or discharge. Neck: Supple, no stridor, bruit, goiter, or hepato-jugular reflux. Jugular venous pressure is estimated to be 3 cm above the sternal angle of Marques, which in turn, is 5 cm above the level of the right atrium; with jugular venous pressure estimated to be 8 cm, then, there is no jugular venous distention on 10/15/2024. Lymphatics: No cervical (anterior/posterior), supraclavicular, infraclavicular, axillary, epitrochlear, or inguinal adenopathy. Chest: Symmetric rise and fall with respirations. Non-tender to palpation. Lungs: Coarse breath sounds bilaterally. Heart: Regular rate and rhythm. S1 and S2 noted. No S3 or S4 summation gallop. No tripartite friction rub. Grade II/ early systolic murmur @ LLSB without radiation to the carotids, axilla, or back, and which remains invariant in regards to the respiratory cycle. Abdomen: Soft, generalized tenderness, non-distended. No rebound, guarding, Carrington's sign, or organomegaly. Bowel sounds auscultated in all 4 quadrants. Extremities: No clubbing, cyanosis. Right knee edematous and slightly warm/indurated, but non-tender and without erythema, crepitus, fluctuance, discharge (sanguineous, serous, suppurative), ulceration, malodor, or lymphangitic streaking. 2+ pedal pulses bilaterally. Skin: No decubitus ulcer, exanthem, or enanthem. Genito-urinary: No urethral discharge. + song catheter with 200 mL of bel urine on 10/15/2024. Neurology: Alert and oriented in regards to person, place, time, and situation. DTR+ and symmetric. 3/5 motor strength in all 4 extremities, both proximally and distally with patient reporting that he has not walked in the past 2 years while living @ [facility]. No pronator drift. No facial droop. No dysarthria. Psychiatry: No homicidal ideation. No suicidal ideation. No flat affect; smiles appropriately. Discharge Plan Discharge Items Patient Disposition: Transfer [facility] Reason For Visit: WEAKNESS, HMPV Discharge Diagnosis: Acute Human Metapneumovirus Associated Pneumonia Condition on Discharge: Fair Activity: As commented below Lifting: Wait until after follow-up appointment Bathing: No limitations Sexual Activity: Wait until after follow-up appointment Exercise/Sports: None Driving/Machine Use: No limitations Weightbearing: Full weightbearing Non-emergency contact: Primary Care Provider Call non-emergency contact if: you have any medication questions Follow-up/Referrals: Kelli Middleton [place] [Primary Care Provider] - Diet: Heart Healthy Addtl Attending Provider Instructions: See your PCP Dr. Danny Soliman within 5 days of hospital discharge to arrange for outpatient overnight polysomnography @ [facility], to evaluate for presumed diagnosis of obstructive sleep apnea, followed by anticipated need for CPAP device @ home, which patient does not currently have at home. Pending Studies at Discharge: Yes Studies:: Outpatient overnight polysomnography @ [facility], to evaluate for presumed diagnosis of obstructive sleep apnea, followed by anticipated need for CPAP device @ home, which patient does not currently have at home. Stand-Alone Forms: My [facility] Skilled Items Patient informed of condition?: Yes DNR: No Discharge Level of Care: Skilled Communicable Disease: No Discharge Prognosis: Stable Lines: None Urinary Catheter: No Medications and DC Order Prescriptions: New ipratropium-albuterol 0.5 mg-3 mg(2.5 mg base)/3 mL Solution For Nebulization 3 ml NEB Q6R PRN (Reason: shortness of breath or wheezing) Qty: 360 0RF sulfamethoxazole-trimethoprim [Bactrim DS] 800-160 mg Tablet 1 tab PO BID Qty: 60 0RF budesonide 0.25 mg/2 mL Suspension For Nebulization 0.5 mg NEB BIDR Qty: 120 0RF formoterol fumarate [Perforomist] 20 mcg/2 mL Solution For Nebulization 20 mcg NEB BIDR Qty: 60 0RF prednisone 20 mg tablet 40 mg PO DAILY 5 Days Qty: 10 0RF Continued Santyl 250 unit/gram ointment 1 applic topical DAILY Qty: 30 0RF duloxetine 60 mg capsule,delayed release(DR/EC) 60 mg PO QAM Qty: 90 3RF ferrous sulfate 325 mg (65 mg iron) tablet 325 mg PO DAILY Qty: 90 3RF Rx Instructions: Listed as on hold per [facility] Pharm[facility] med list Entresto 24-26 mg tablet 1 tab PO BID Qty: 180 3RF Hold Instructions: Resume on 08/23/24. gabapentin 600 mg tablet 600 mg PO TID 30 Days Qty: 90 3RF levetiracetam 250 mg tablet 250 mg PO BID Qty: 60 5RF Xarelto 20 mg tablet 20 mg PO QPM Rx Instructions: must administer with evening meal start 3 days after last eliquis dose. aspirin [Adult Low Dose Aspirin] 81 mg tablet,delayed release (DR/EC) 81 mg PO QAM Hold Instructions: Resume on 02/23/23. until PCP/surgery followup cyanocobalamin (vitamin B-12) 500 mcg Tablet 1,000 mcg PO QAM Qty: 30 0RF nitroglycerin 0.4 mg Tablet, Sublingual 0.4 mg sublingual DIRECTED PRN (Reason: chest pin) vitamin E 268 mg (400 unit) Capsule 268 mg PO DAILY Qty: 0 pravastatin 40 mg tablet 40 mg PO HS Hold Instructions: Resume on 06/25/24. Hold while on daptomycin Rx Instructions: TAKE 1 TABLET BY MOUTH ONCE DAILY mirtazapine 30 mg tablet 30 mg PO HS acetaminophen 325 mg tablet 975 mg PO Q8H PRN (Reason: mild pain,fever, or headache) bumetanide 0.5 mg tablet 0.5 mg PO DAILY MDD 1mg Hold Instructions: Resume on 08/23/24. Rx Instructions: one tablet daily, with 1 additional tablet daily prn for weight gain or shortness of breath tamsulosin 0.4 mg capsule 0.4 mg PO HS multivitamin Tablet 1 tab PO QAM melatonin 3 mg Tablet 6 mg PO HS glucosamine sulfate [Glucosamine] 500 mg Tablet 500 mg PO QAM Rx Instructions: administer with a meal diclofenac sodium 1 % Gel 2 g topical QID PRN (Reason: Shoulder Pain) Rx Instructions: APPLY 1 DOSE 4 TIMES A DAY TO BILATERAL SHOULDERS FOR PAIN hydrocodone-acetaminophen 5-325 mg tablet 1 tab PO Q6 PRN (Reason: Moderate Pain (Scale Score 5-6)) omega-3 fatty acids 1,250 mg Capsule 1,250 mg PO QAM Rocklatan 0.02-0.005 % drops 1 drp OPB HS metoprolol succinate 50 mg Tablet Extended Release 24 Hr 12.5 mg PO QAM thiamine HCl (vitamin B1) 100 mg Tablet 100 mg PO DAILY omeprazole 20 mg Capsule,Delayed Release(Dr/Ec) 20 mg PO DAILY folic acid 1 mg Tablet 1 mg PO DAILY cholecalciferol (vitamin D3) [Vitamin D3] 10 mcg (400 unit) Tablet 20 mcg PO DAILY Lactobacillus acidophilus Tablet,Chewable 1 tab PO DAILY B-Complex With B-12 2.5 mg-2.5 mg- 5 mg-100 mcg Tablet 1 tab PO DAILY amiodarone 200 mg Tablet 200 mg PO QAM Qty: 30 0RF sennosides 8.6 mg Tablet 8.6 mg PO BID Discontinued sulfamethoxazole-trimethoprim [Bactrim DS] 800-160 mg tablet 1 tab PO DAILY Patient Comments: As of today pt hasn't started this med but it was ordered and to be delivered and when he receives it he will stop Doxycyline and start Bactrim meropenem 1 gram Recon Soln 1 g IV Q8H Rx Instructions: 48 MINUTE INFUSION vancomycin 1.75 gram Recon Soln 1.75 g IV Q24H Discharge Orders: Discharge Order (Routine); Ordered 10/15/24 Ordered By: Saul Pierson Discharge Order- CHF (Routine); Ordered 10/15/24 Ordered By: Saul Pierson Admission Data Admit Date/Time: 10/06/24 23:25 Attending Provider: Saul Pierson Admit Provider: Shaheen Amor Primary Care Provider: Kelli Middleton [facility] Other Providers: Shaheen Amor; [facility]; [facility]; Kelli Middleton [facility]; Liam Moore Hospital Stay Data Consultations 10/06/24 23:27 ED Decision to Admit Stat 10/11/24 13:35 Consult Infectious Diseases Routine 10/13/24 13:27 Consult Pulmonology Routine Diagnostic Imagining Performed 10/07/24 10:53 CT neck soft tissues [CT soft tissue neck w con] Urgent 10/14/24 08:38 CT for pulmonary embolism PE [CT angio chest PE protocol] Urgent Pending Results Patient Have Any Pending Studies at Discharge: Yes Discharge Instructions Given to Patient (Per Discharging Provider) See your PCP Dr. Danny Soliman within 5 days of hospital discharge to arrange for outpatient overnight polysomnography @ [facility], to evaluate for presumed diagnosis of obstructive sleep apnea, followed by anticipated need for CPAP device @ home, which patient does not currently have at home. Total Time Total Time Spent Total Time Spent (In Minutes): 35 minutes. Of this time period, 19 minutes were spent in coordinating patient's discharge. Coding Level of Care Code 36861 INP/OBS DISCH >30 MIN Diagnoses Weakness R53.1 Infection due to human metapneumovirus (hMPV) B34.8 MRSA bacteremia R78.81; B95.62
--- NOTE | 2024-10-15 14:04 | Pulmonology Progress Note ---
Date of Service October 15, 2024 Assessment & Plan (1) Bronchitis due to human metapneumovirus (hMPV): (2) Cough: (3) Fatigue: (4) Atelectasis: (5) Obesity hypoventilation syndrome: (6) Obstructive sleep apnea: Plan 78-year-old male with a history of obesity, paroxysmal atrial fibrillation, peripheral artery disease, ambulatory dysfunction who is currently hospitalized due to chronic joint infection and human metapneumovirus bronchiolitis. Overnight on 10/13/2024 patient had episode of unresponsiveness. Patient placed on BiPAP with improvement of mentation within roughly an hour. Which could be a sign of hypercapnic narcolepsy. Patient wore BiPAP for approximately 4 hours. Patient eating breakfast this am and not complaining of SOB. Wheezing heard on 10/13/24 present but improved. Hypoxia related to related to human metapneumovirus; Bronchiolitis from hMPV LEONARD; obesity hypoventilation syndrome and atelectasis. Recommend DC home on high-dose ICS/LABA inhaler such as Symbicort. Recommend he follow-up with sleep medicine [facility] for a CPAP device. Recommend steroid taper upon discharge. Patient to follow-up with us in the pulmonary clinic. Admission and Anticipated Discharge Date Admission Date: October 06, 2024 Subjective Patient shortness of breath continues to improve. He denies any chest pain. He denies any fevers, chills or night sweats. He is eager to go home. Review of Systems Review of Systems: All systems reviewed & are unremarkable except as noted in HPI & below Physical Exam Physical Exam: Constitutional: Patient appears to be of their stated age. Patient is in no apparent distress. Patient is well-developed. Eyes: Pupils are equal round and reactive to light. Conjunctivae are normal. Anicteric sclera. Ears nose, mouth and throat: Mallampati class 2. Normal posterior oropharynx. Uvula is midline. Neck: Trachea is midline. Visual inspection is normal. Respiratory: Clear to auscultation bilaterally. No use of accessory muscles. No significant clubbing noted. Cardiovascular: Regular rate and rhythm. No murmurs. No edema. Gastrointestinal: Normal bowel sounds, soft, nontender and nondistended. No hepatosplenomegaly noted. Musculoskeletal: No cyanosis. Patient is able to move all extremities. Strength is 5 out of 5 in the upper and lower extremities. Skin: No rashes, warm dry and intact. Neurologic: No obvious focal neurological deficits seen. Psychiatric: Alert and oriented x3 with a euthymic affect. Results & Data Results & Data Vital Signs (Past 12 Hours) Vital Signs Temp Pulse Pulse Resp BP Pulse Ox O2 Del Method 10/15/24 13:20 36.5 C 72 20 135/80 94 10/15/24 11:29 36.5 C 72 20 135/80 94 Room Air 10/15/24 07:29 36.3 C L 65 20 129/76 93 Room Air 10/15/24 07:14 62 18 91 Room Air 10/15/24 03:51 36.6 C 64 18 126/72 92 Room Air 10/15/24 03:51 63 17 96 O2 Flow Rate 10/15/24 13:20 10/15/24 11:29 10/15/24 07:29 10/15/24 07:14 10/15/24 03:51 10/15/24 03:51 5 PG Care Time/CCT Total # of Minutes Spent Total Time Spent with Patient: Total time spent is greater than 50% in coordination of care (as documented) at patient's floor/unit and/or counseling patient: Coding Level of Care Code 90731 SUB INP/OBS CARE 2/35MIN Diagnoses Bronchitis due to human metapneumovirus (hMPV) J40; B97.81 Cough R05.9 Fatigue R53.83 Atelectasis J98.11 Obesity hypoventilation syndrome E66.2 Obstructive sleep apnea G47.33
== END 2024-10-15 15:23 | disposition home health service (06) | DRG 193 ==
LOC: ED 16:45 → SUATTDRO 23:25 → EDINP 23:25 → 2N 10-07 00:42

== ENCOUNTER 2024-12-23 15:04 | Inpatient (IN) ==
[2024-12-23 16:00] LABS: Hematocrit (blood only) 37.3 % (42.0-52.0); Hemoglobin 11.8 g/dl (14.0-18.0); Immature Granulocytes # (auto) 0.01 K/uL (0.01-0.20); Immature Granulocytes % (auto) 0.2 %; Mean Corpuscular Hemoglobin 30.1 pg (25.0-34.0); Mean Corpuscular Volume 95.2 fL (80.0-100.0); Platelet Count 257 K/uL (130-400); RDW Standard Deviation 62.5 fL (36.4-46.3); Red Blood Count 3.92 M/uL (4.70-6.10); White Blood Count 6.34 K/ul (4.8-10.8)
[2024-12-23 16:16] LABS: Alanine Aminotransferase 32 U/L (7-52); Albumin Globulin Ratio 0.9 (0.9-2); Alkaline Phosphatase 89 U/L (34-104); Anion Gap 6 (3-11); Bilirubin,Total 0.4 mg/dl (0.2-1.0); Blood Urea Nitrogen 34 mg/dl (6-23); Calcium 8.8 mg/dl (8.6-10.3); Carbon Dioxide 29 mmol/L (21-32); Chloride 103 mmol/L (98-107); Globulin 3.6 gm/dl (2.5-4.0); Glucose 117 mg/dl (70-99(Fasting)); Potassium 4.4 mmol/L (3.5-5.1); Sodium 138 mmol/L (136-145); Total Protein 6.9 gm/dl (6.0-8.3)
--- NOTE | 2024-12-23 16:25 | Emergency Department Note ---
Impression & Plan Complicated urinary tract infection, Cellulitis, Anemia ED Provider Note NAME: RAFY CHICAS AGE: 79 SEX: M : 1945 ARRIVES VIA: Walk-In INFORMANT: Patient ED PROVIDER(S): Rakesh Ellis DO CHIEF COMPLAINT: UTI needing IV HPI: Patient is an 79-year-old gentleman with a past medical history of transaminitis, cardiomyopathy, heart failure, paroxysmal A-fib, syncope who presents to the ER for a UTI as he had burning for the past 5 days. He has had no improvement with this. Cultures have grown out and is resistant to all oral medications and he was referred in for IV antibiotics. He also notes that he has noticed some swelling over his right knee which has been slightly worse over the past couple days. Redness is now new on the right lateral thigh. He denies any headache or change in vision. No chest pain or shortness of breath. No dysuria, urgency, or frequency. No other exacerbating or remitting factors. ADDITIONAL HISTORY OBTAINED: Per HPI Chronic Medical/Social Conditions Affecting Care: Per HPI PAST MEDICAL HISTORY:See Below PAST SURGICAL HISTORY:See Below FAMILY HISTORY:See Below SOCIAL HISTORY:See Below HOME MEDICATIONS:See Below ALLERGIES:See Below VITALS:See Below PHYSICAL EXAMINATION: GENERAL: Sitting up in bed, alert, well appearing, well nourished, no distress, non-toxic EYE EXAM: normal conjunctiva. OROPHARYNX: no exudate, no erythema, lips, buccal mucosa, and tongue normal and mucous membranes are moist NECK: supple, no nuchal rigidity, no adenopathy, non-tender LUNGS: Clear to auscultation. Normal chest wall mechanics HEART: no murmurs, S1 normal and S2 normal ABDOMEN: abdomen soft, non-tender, normo-active bowel sounds, no masses, no rebound or guarding. BACK: Back is symmetrical on inspection and there is no deformity, no midline tenderness, no CVA tenderness. SKIN: no rashes and no bruising UPPER EXTREMITIES: upper extremities are grossly normal. LOWER EXTREMITIES: Flexion-extension right hip is intact without pain. No significant tenderness with flexion extension of the right knee although unable to completely extend which is old per patient. Erythema over the lateral superior patella tracking 4 to 5 inches into the distal right lateral thigh. Does have a scab in the mid of his right patella with small surrounding erythema as well. Calves are equal bilaterally. No pain with axial loading. NEURO EXAM: Normal sensorium, cranial nerves II-XII grossly intact, normal speech, no gross weakness of arms, no gross weakness of legs. MEDICAL DECISION MAKING: Patient is an 79-year-old male who presents ER for the above-stated complaint. IV was established and blood work was obtained. Upon review of external records urine cultures and blood work reuse ESBL's and VRE. He notes that he was referred in for treatment of a UTI. Labs show no significant leukocytosis and a mild anemia 11.8. BMP with glucose of 117. LFTs and bilirubin were unremarkable. Pro-Arsalan was normal. UA with nitrates leuks whites and red cells and plus for bacteria. X-ray of the knee was unremarkable. He did have some surrounding erythema on the right lateral knee and superiorly. I do favor that this does not involve the joint as he has no pain with axial loading. Skin is warm and tender. He will be covered with Dapto and meropenem that was prescribed. He was updated bedside discussed with the hospitalist admitted for further workup. Consults/Care Managements Discussions: Per [facility] Triage Nursing notes reviewed. Limited review of prior medical records performed Vital Signs: reviewed and remarkable for tachy Differential diagnosis: Cellulitis, abscess, MRSA infection, DVT, necrotizing fasciitis, dermatitis, drug eruption, allergic reaction, as well as other pathologies. ER treatment provided: See below Diagnostics interpreted by me include EKG and cardiac monitoring as listed below: -Cardiac Monitoring: An order was placed for continuous cardiac monitoring. The monitor shows a rate of 70 with sinus rhythm. -ECG: none -Laboratory studies:Interpreted by me as stated above in MDM and shown below. Imaging studies: Xrays: As interpreted by me: X-ray of the right knee shows no acute fracture or dislocation CTs show: none Procedures:none Critical Care: None Past Med/Surg History Problem List (Updated 12/23/24 @ 21:48 by Rakesh Ellis DO) Anemia (Acute) Cellulitis (Acute) Complicated urinary tract infection (Acute) Swelling of right knee UTI (urinary tract infection) Skin tear of left upper extremity Sleeping excessive (Acute) Has daytime drowsiness (Acute) IPMN (intraductal papillary mucinous neoplasm) Elevated liver enzymes Open wound of left elbow (Acute) Cardiomyopathy Heart failure with improved ejection fraction (HFimpEF) Foot ulcer, right Idiopathic polyneuropathy Somnolence Myoclonus Generalized weakness (Acute) Pneumonia (Acute) JEFFERY (acute kidney injury) Bilateral lower leg cellulitis Right upper lobe pneumonia Skin tear of left hand without complication (Acute) Idiopathic peripheral neuropathy Spinal stenosis, lumbar region with neurogenic claudication Paroxysmal atrial fibrillation Syncope (Acute) HFrEF (heart failure with reduced ejection fraction) Transaminitis Venous stasis ulcers of both lower extremities Non-pressure chronic ulcer of other part of left foot limited to breakdown of skin Non-pressure chronic ulcer of other part of right foot limited to breakdown of skin Peripheral arterial disease (Chronic) Pressure ulcer of right foot, stage 3 Chronic diastolic heart failure Atrial fibrillation History of MRSA infection Recurrent cellulitis of lower extremity (Acute) Polyneuropathy Depression Atrial flutter (Acute) Atrial fibrillation with RVR Open wound of knee (Acute) Venous ulcers of both lower extremities (Acute) Pain associated with wound Palliative care by specialist Advanced care planning/counseling discussion Back pain VRE bacteremia Ambulatory dysfunction Infection of prosthetic right knee joint Fall (Acute) Anemia (Acute) Hypomagnesemia (Acute) Bilateral cellulitis of lower leg (Acute) Peripheral neuropathy Chronic venous stasis Cellulitis of both feet (Acute) Rheumatoid arthritis Open wound of foot Open wound of right hand (Acute) Chronic wound (Acute) Lymphangitis of lower extremity Hypomagnesemia (Acute) Open wound of left upper arm (Acute) Open wound of left arm with tendon injury Gram-negative bacteremia Cellulitis of right lower extremity (Acute) Generalized weakness (Acute) Elevated procalcitonin (Acute) Acute kidney injury superimposed on chronic kidney disease (Acute) Skin tear of right upper extremity (Acute) Open wound of left foot (Acute) Open wound of right foot (Acute) Skin tear of right hand without complication (Acute) Venous ulcer of left leg (Acute) Traumatic open wound of right lower leg (Acute) Elevated LFTs Dislocation, hip closed (Acute) Dislocation, hip, posterior Rotator cuff arthropathy of both shoulders Abrasion of right knee (Acute) Pain of right hip Prophylactic antibiotic Left shoulder pain Acquired foot deformity (Chronic) Traumatic wound (Acute) Pressure ulcer of left foot, stage 3 (Acute) Abnormal ankle brachial index (Acute) Right knee pain Non-ST elevation NV (NSTEMI) (Acute) Leukocytosis (Acute) Cervical radiculopathy Neuropathy Weakness On amiodarone therapy Weakness of right hip Constipation Sepsis following procedure Rhabdomyolysis MRSA infection Visual disturbance Hyponatremia Hypotension Acute metabolic encephalopathy Abdominal wall abscess (Acute) HFrEF (heart failure with reduced ejection fraction) EF 40% Mar 2022, improved 55-60% August 2022 Lumbar stenosis Osteoarthritis of right knee Anxiety and depression Hypertension Coronary artery disease Atherogenic dyslipidemia Lumbar radiculopathy Lower extremity weakness Degenerative spondylolisthesis Chronic low back pain Scoliosis of lumbar region due to degenerative disease of spine in adult Dislocation of hip, right, closed (Acute) Septic joint of right knee joint COVID-19 (Acute) Incisional hernia Incarcerated intra-abdominal hernia (Acute) Adjustment disorder with mixed anxiety and depressed mood Medical History Obstructive sleep apnea Obesity hypoventilation syndrome Atelectasis Elevated brain natriuretic peptide (BNP) level Bronchitis due to human metapneumovirus (hMPV) Infection due to human metapneumovirus (hMPV) Fatigue Cough History of infection of total joint prosthesis of knee Weakness MRSA bacteremia Hypoxia Hypotension Hyperkalemia Lethargy Ischemic ulcer of left foot Ischemic ulcer of right foot Bilateral lower leg cellulitis PVD (peripheral vascular disease) Atrial flutter with rapid ventricular response Open wound of left lower extremity Sepsis secondary to UTI Fever Sepsis due to skin infection Sepsis Fall Infected hardware in right leg Chronic infection of right knee Severe sepsis Venous ulcer of right leg History of immunosuppressive therapy Heart failure with preserved ejection fraction GERD (gastroesophageal reflux disease) Sepsis Septicemia due to Streptococcus pneumoniae Respiratory failure with hypoxia Hypomagnesemia Pneumonia Benign essential hypertension Lumbar stenosis Hx of staphylococcal infection 03/2022, w/"bacterial infection" at the same, in the rt. knee, occurrred during atrial fibrillation episode. "when he woke up, he couldn't walk." Atrial fibrillation episode occurred in 03/2022, taken to [facility] in [place], admitted to ICU for 1-2 weeks (was not intubated, but wasn't "awake either"), then to cardiac unit, then to rehab at [facility] in [place]; f/u dr. guerra in [place]>will be starting to see a lens polisher at [facility] 2nd week of 08/2022 Myocardial Infarction "a silent one, 2019" Sleep apnea no device Surgical History Status post revision of total replacement of right knee Hx of Achilles tendon repair rt. Hx of knee surgery rt. patellar tendon repair Hx of rotator cuff surgery bilateral Hx of total knee replacement lt. Hx of total hip arthroplasty rt. History of colostomy reversal History of bowel resection for diverticulitis; w/colostomy placement for 3-4 months Hx of hernia repair near former colostomy site History of esophagogastroduodenoscopy (EGD) Hx of colonoscopy Last Colonoscopy 08/14/22, repeat 3 years in 2025 Hx of bilateral cataract extraction History of heart artery stent ~3 years ago, x2 stents, done in [place]; f/u dr guerra, [place]>will be seeing new cardio at [place] of August 2022. History of cardiac cath ~3 years ago, SOB and "felt like throat was constricting", had "silent heart attack", x2 stents, done in [place] Family History Grandmother (Maternal) Diabetes Daughter Diabetes Father Suicide Hypertension Denies family history of Ovarian cancer Prostate cancer Myocardial infarction Breast cancer Lung cancer Colorectal cancer Stroke Social History Smoking Status: Never smoker Second Hand Exposure: No; Do You Dip or Chew Tobacco: No; Hx Alcohol Use: Yes Alcohol type: wine Alcohol Intake Frequency: 4 or More x per/Week Hx Substance Use: No Preferred Language: Estonian Communication Ability: Effective Visual Impairment: Limited Hearing Ability: Normal Graphics Manager Required: No Beliefs That Will Affect Care: None marital status: Single Current Living Situation: Personal Care Facility Current Living Situation Comment: [facility] current occupational status: retired How many Children do You have: 2 Feels Safe at Home: Yes Childhood Exposure to Second-Hand Smoke: Yes Diet: regular caffeine: Yes Dental Care, Regularly: Yes Physical Activity Frequency: Does not Exercise Seatbelt Use: always Sunscreen Use: Yes Assistive Devices: Wheelchair Allergies Allergies Allergy/AdvReac Type Severity Reaction Status Date / Time cat dander Allergy Severe CAT Verified 12/23/24 09:34 HAIR---Swelling of Lip/Tongue/Throat Home Meds Home Medications Medication Instructions Recorded Confirmed aspirin 81 mg tablet,delayed 81 mg PO QAM 08/07/22 12/23/24 release (Adult Low Dose Aspirin) rivaroxaban 20 mg tablet (Xarelto) 20 mg PO DAILY 11/19/23 12/23/24 sennosides 8.6 mg tablet 8.6 mg PO .EVERY 24 HOURS PRN 12/15/23 12/23/24 Constipation mirtazapine 30 mg tablet 30 mg PO HS 01/21/24 12/23/24 nitroglycerin 0.4 mg sublingual 0.4 mg sublingual DIRECTED PRN 01/21/24 12/23/24 tablet chest pin diclofenac sodium 1 % topical gel 2 g topical Q6 PRN Shoulder Pain 07/22/24 12/23/24 melatonin 3 mg tablet 6 mg PO HS 07/22/24 12/23/24 multivitamin 1 tab PO DAILY 07/22/24 12/23/24 tamsulosin 0.4 mg capsule 0.4 mg PO HS 07/22/24 12/23/24 folic acid 1 mg tablet 1 mg PO DAILY 08/12/24 12/23/24 omeprazole 20 mg capsule,delayed 20 mg PO DAILY 08/12/24 12/23/24 release thiamine HCl (vitamin B1) 100 mg 100 mg PO DAILY 08/12/24 12/23/24 tablet acetaminophen 325 mg tablet 650 mg PO Q6 PRN TEMP > 100.4 10/26/24 12/23/24 (Tylenol) cholecalciferol (vitamin D3) 25 25 mcg PO DAILY 10/26/24 12/23/24 mcg (1,000 unit) tablet (Vitamin D3) cyanocobalamin (vitamin B-12) 1,000 mcg PO DAILY 10/26/24 12/23/24 1,000 mcg tablet lactase 3,000 unit tablet (Lactaid) 3,000 unit PO DAILY 10/26/24 12/23/24 metoprolol succinate 25 mg 12.5 mg PO DAILY 10/26/24 12/23/24 tablet,extended release 24 hr omega-3 fatty acids 1,000 mg 1,000 mg PO QPM 10/26/24 12/23/24 capsule gabapentin 100 mg capsule 600 mg PO TID 11/14/24 12/23/24 netarsudil 0.02 %-latanoprost 1 drp ophthalmic (eye) DIRECTED 11/14/24 12/23/24 0.005 % eye drops (Rocklatan) duloxetine 30 mg capsule,delayed 90 mg PO DAILY 11/25/24 12/23/24 release sprinkle sulfamethoxazole 800 1 tab PO UD 12/07/24 12/23/24 mg-trimethoprim 160 mg tablet (Bactrim DS) Previous Rx's Medication Instructions Recorded ferrous sulfate 325 mg (65 mg 325 mg PO DAILY #90 tabs 05/11/24 iron) tablet budesonide 0.5 mg/2 mL suspension 0.5 mg (2 mL) NEB BIDR #60 mL 10/28/24 for nebulization bumetanide 1 mg tablet 0.5 mg (1/2 x 1 mg) PO QAM #15 tabs 10/28/24 formoterol fumarate 20 mcg/2 mL 20 mcg (2 mL) NEB BIDR #120 mL 10/28/24 solution for nebulization (Perforomist) ipratropium 0.5 mg-albuterol 3 mg 3 ml NEB Q6R PRN shortness of 10/28/24 (2.5 mg base)/3 mL nebulization breath or wheezing #90 mL soln levetiracetam 500 mg tablet 500 mg PO Q12H #60 tabs 10/28/24 (Keppra) amiodarone 200 mg tablet 200 mg PO QAM #90 tabs 12/02/24 Results & Data (ED) Vital Signs Vital Signs - 24 hr 12/23/24 15:19 12/23/24 16:06 12/23/24 16:18 Temperature 36.7 C Temperature Source Temporal Artery Scan Pulse Rate 75 80 74 Respiratory Rate 18 16 Respiratory Effort / Characteristics Non-Labored Spontaneous Respiratory Depth Normal Respiratory Pattern Regular Blood Pressure 164/88 H 143/73 H Blood Pressure Mean 113 96 Pulse Oximetry 94 96 Oxygen Delivery Method Room Air Room Air Sepsis Recent Fever Within 48 Hours No Sepsis New/Unexplained Change in Mental Status N/A Sepsis Action Taken by Nursing No Action Required 12/23/24 16:31 12/23/24 17:01 12/23/24 17:30 Temperature Temperature Source Pulse Rate 79 72 Respiratory Rate 19 24 Respiratory Effort / Characteristics Respiratory Depth Respiratory Pattern Blood Pressure 132/85 98/72 L 128/81 Blood Pressure Mean 102 85 89 Pulse Oximetry 94 Oxygen Delivery Method Sepsis Recent Fever Within 48 Hours Sepsis New/Unexplained Change in Mental Status Sepsis Action Taken by Nursing 12/23/24 17:30 12/23/24 18:01 12/23/24 18:30 Temperature Temperature Source Pulse Rate 65 72 71 Respiratory Rate 23 22 21 Respiratory Effort / Characteristics Respiratory Depth Respiratory Pattern Blood Pressure 128/81 121/81 130/71 Blood Pressure Mean 89 86 89 Pulse Oximetry 95 93 95 Oxygen Delivery Method Sepsis Recent Fever Within 48 Hours Sepsis New/Unexplained Change in Mental Status Sepsis Action Taken by Nursing 12/23/24 18:54 12/23/24 19:00 12/23/24 19:00 Temperature Temperature Source Pulse Rate 74 73 Respiratory Rate 25 H 24 Respiratory Effort / Characteristics Respiratory Depth Respiratory Pattern Blood Pressure 132/79 Blood Pressure Mean 95 Pulse Oximetry Oxygen Delivery Method Sepsis Recent Fever Within 48 Hours Sepsis New/Unexplained Change in Mental Status Sepsis Action Taken by Nursing 12/23/24 19:00 12/23/24 19:00 12/23/24 19:15 Temperature Temperature Source Pulse Rate Respiratory Rate 23 Respiratory Effort / Characteristics Respiratory Depth Respiratory Pattern Blood Pressure 132/79 132/79 Blood Pressure Mean 95 95 Pulse Oximetry Oxygen Delivery Method Sepsis Recent Fever Within 48 Hours Sepsis New/Unexplained Change in Mental Status Sepsis Action Taken by Nursing 12/23/24 19:30 12/23/24 19:30 12/23/24 19:36 Temperature Temperature Source Pulse Rate 73 Respiratory Rate 18 Respiratory Effort / Characteristics Respiratory Depth Respiratory Pattern Blood Pressure 118/82 118/82 Blood Pressure Mean 88 88 Pulse Oximetry Oxygen Delivery Method Sepsis Recent Fever Within 48 Hours Sepsis New/Unexplained Change in Mental Status Sepsis Action Taken by Nursing 12/23/24 19:45 12/23/24 20:00 12/23/24 20:00 Temperature Temperature Source Pulse Rate 65 Respiratory Rate 23 Respiratory Effort / Characteristics Respiratory Depth Respiratory Pattern Blood Pressure 134/76 134/76 Blood Pressure Mean 100 100 Pulse Oximetry Oxygen Delivery Method Sepsis Recent Fever Within 48 Hours Sepsis New/Unexplained Change in Mental Status Sepsis Action Taken by Nursing 12/23/24 20:12 12/23/24 20:18 12/23/24 20:24 Temperature Temperature Source Pulse Rate 71 72 64 Respiratory Rate 23 20 Respiratory Effort / Characteristics Respiratory Depth Respiratory Pattern Blood Pressure Blood Pressure Mean Pulse Oximetry Oxygen Delivery Method Sepsis Recent Fever Within 48 Hours Sepsis New/Unexplained Change in Mental Status Sepsis Action Taken by Nursing Laboratory Data 12/23/24 15:41 12/23/24 15:41 Lab Results 07/18/25 07/18/25 07/18/25 Range/Units 15:16 15:41 16:40 WBC 6.34 (4.8-10.8) K/ul RBC 3.92 L (4.70-6.10) M/uL Hgb 11.8 L (14.0-18.0) g/dl Hct 37.3 L (42.0-52.0) % MCV 95.2 (80.0-100.0) fL MCH 30.1 (25.0-34.0) pg MCHC 31.6 L (32.0-36.0) g/dL RDW Std Deviation 62.5 H (36.4-46.3) fL RDW Coeff of Sammie 18.1 H (11.5-14.5) % Plt Count 257 (130-400) K/uL MPV 9.2 L (9.4-12.4) fL Immature Gran % (Auto) 0.2 % Neut % (Auto) 69.6 % Lymph % (Auto) 11.2 % Glades % (Auto) 14.4 % Eos % (Auto) 4.1 % Baso % (Auto) 0.5 % Neut # (Auto) 4.42 (1.40-6.50) K/uL Lymph # (Auto) 0.71 L (1.20-3.40) K/uL Glades # (Auto) 0.91 H (0.11-0.59) K/uL Eos # (Auto) 0.26 (0.00-0.50) K/uL Baso # (Auto) 0.03 (0.00-0.20) K/uL Immature Gran # (Auto) 0.01 (0.01-0.20) K/uL ESR 77 H (0-20) mm/hr Sodium 138 (136-145) mmol/L Potassium 4.4 (3.5-5.1) mmol/L Chloride 103 (98-107) mmol/L Carbon Dioxide 29 (21-32) mmol/L Anion Gap 6 (3-11) BUN 34 H (6-23) mg/dl Creatinine 1.21 (0.6-1.4) mg/dl Est Cr Clr Drug Dosing Not Reportable eGFR 60.15 BUN/Creatinine Ratio 28.1 H (10-20) Glucose 117 H (70-99(Fasting)) mg/dl Lactate 1.3 (0.4-2.0) mmol/L Calcium 8.8 (8.6-10.3) mg/dl Total Bilirubin 0.4 (0.2-1.0) mg/dl AST 38 (13-39) U/L ALT 32 (7-52) U/L Alkaline Phosphatase 89 (34-104) U/L C-Reactive Protein 15.08 H (0-0.5) mg/dl Total Protein 6.9 (6.0-8.3) gm/dl Albumin 3.3 L (3.4-5.0) gm/dl Globulin 3.6 (2.5-4.0) gm/dl Albumin/Globulin Ratio 0.9 (0.9-2) Procalcitonin 0.10 (0-0.5) ng/ml Urine Color Urine Appearance (Clear) Urine pH (4.5-7.5) Ur Specific Elmore (1.000-1.030) Urine Protein (Negative) Urine Glucose (UA) (Negative) Urine Ketones (Negative) Urine Blood (Negative) Urine Nitrite (Negative) Urine Bilirubin (Negative) Urine Urobilinogen (Negative) Ur Leukocyte Esterase (Negative) Urine WBC (Auto) (0-5) /hpf Urine RBC (Auto) (0-2) /hpf U Hyaline Cast (Auto) (0-2) /lpf U Epithel Cells (Auto) (0-2) /hpf Urine Bacteria (Auto) (None Seen) Urine Comment /18/25 Range/Units 17:25 WBC (4.8-10.8) K/ul RBC (4.70-6.10) M/uL Hgb (14.0-18.0) g/dl Hct (42.0-52.0) % MCV (80.0-100.0) fL MCH (25.0-34.0) pg MCHC (32.0-36.0) g/dL RDW Std Deviation (36.4-46.3) fL RDW Coeff of Sammie (11.5-14.5) % Plt Count (130-400) K/uL MPV (9.4-12.4) fL Immature Gran % (Auto) % Neut % (Auto) % Lymph % (Auto) % Glades % (Auto) % Eos % (Auto) % Baso % (Auto) % Neut # (Auto) (1.40-6.50) K/uL Lymph # (Auto) (1.20-3.40) K/uL Glades # (Auto) (0.11-0.59) K/uL Eos # (Auto) (0.00-0.50) K/uL Baso # (Auto) (0.00-0.20) K/uL Immature Gran # (Auto) (0.01-0.20) K/uL ESR (0-20) mm/hr Sodium (136-145) mmol/L Potassium (3.5-5.1) mmol/L Chloride (98-107) mmol/L Carbon Dioxide (21-32) mmol/L Anion Gap (3-11) BUN (6-23) mg/dl Creatinine (0.6-1.4) mg/dl Est Cr Clr Drug Dosing eGFR BUN/Creatinine Ratio (10-20) Glucose (70-99(Fasting)) mg/dl Lactate (0.4-2.0) mmol/L Calcium (8.6-10.3) mg/dl Total Bilirubin (0.2-1.0) mg/dl AST (13-39) U/L ALT (7-52) U/L Alkaline Phosphatase (34-104) U/L C-Reactive Protein (0-0.5) mg/dl Total Protein (6.0-8.3) gm/dl Albumin (3.4-5.0) gm/dl Globulin (2.5-4.0) gm/dl Albumin/Globulin Ratio (0.9-2) Procalcitonin (0-0.5) ng/ml Urine Color Dark Yellow Urine Appearance Turbid A (Clear) Urine pH 8.0 H (4.5-7.5) Ur Specific Elmore 1.022 (1.000-1.030) Urine Protein 2+ H (Negative) Urine Glucose (UA) Negative (Negative) Urine Ketones Negative (Negative) Urine Blood 2+ H (Negative) Urine Nitrite Positive A (Negative) Urine Bilirubin Negative (Negative) Urine Urobilinogen Negative (Negative) Ur Leukocyte Esterase 3+ H (Negative) Urine WBC (Auto) >50 H (0-5) /hpf Urine RBC (Auto) >20 H (0-2) /hpf U Hyaline Cast (Auto) 0-2 (0-2) /lpf U Epithel Cells (Auto) 0-2 (0-2) /hpf Urine Bacteria (Auto) 4+ H (None Seen) Urine Comment Administered Medications Discontinued Medications Meropenem 500 mg/ Syringe 10 mls @ 2 mls/min IV NOW STA; Protocol Stop: 12/23/24 16:29 Last Admin: 12/23/24 17:29 Dose: 2 mls/min Documented By: ANT Sodium Chloride (Nss) 500 mls @ 999 mls/hr IV .Q31M ONE Stop: 12/23/24 16:56 Last Infusion: 12/23/24 18:00 Dose: Infused Documented By: Admin: 12/23/24 17:29 Dose: 999 mls/hr Documented By: ANT Daptomycin 1,000 mg/ Syringe 20 mls @ 10 mls/min IV NOW ONE; Protocol Stop: 12/23/24 17:01 Last Admin: 12/23/24 17:29 Dose: 10 mls/min Documented By: ANT Imaging Data Radiologist's Impression: Knee X-Ray 12/23/24 16:21 INDICATION: Pain TECHNIQUE: 2 views of the right knee were obtained. COMPARISON: None FINDINGS: No displaced acute osseous process is identified. Redemonstrated right knee arthroplasty with cement augmentation surrounding the tibial stem with components in anatomic alignment. Moderate soft tissue swelling in the anterior aspect of the knee that appears similar to the prior radiograph. Small joint fluid. IMPRESSION: No displaced acute osseous process is identified. Redemonstrated right knee arthroplasty with components in anatomic alignment. Moderate soft tissue swelling the anterior aspect of the knee that is similar to the prior radiograph. Small joint fluid Electronically signed by Gee Law 12-23-2024 4:42 PM Discharge Plan Visit Data Chief Complaint: Referred by Doctor Stated Complaint: INFECTION UTI ED Provider: Rakesh Ellis Discharge Problem: Complicated urinary tract infection, Cellulitis, Anemia Condition: Fair Forms Stand Alone Forms: My [facility] [place] [address] [place]iff Prescriptions Prescriptions: No Action sulfamethoxazole-trimethoprim [Bactrim DS] 800-160 mg tablet 1 tab PO UD Patient Comments: 12/23- unable to verify. original: 1 tab po BID ferrous sulfate 325 mg (65 mg iron) tablet 325 mg PO DAILY Qty: 90 3RF amiodarone 200 mg tablet 200 mg PO QAM Qty: 90 3RF gabapentin 100 mg capsule 600 mg PO TID Rocklatan 0.02-0.005 % drops 1 drp ophthalmic (eye) DIRECTED Xarelto 20 mg tablet 20 mg PO DAILY Rx Instructions: start 3 days after last eliquis dose. aspirin [Adult Low Dose Aspirin] 81 mg tablet,delayed release (DR/EC) 81 mg PO QAM Hold Instructions: Resume on 02/23/23. until PCP/surgery followup nitroglycerin 0.4 mg Tablet, Sublingual 0.4 mg sublingual DIRECTED PRN (Reason: chest pin) Rx Instructions: GIVE 1 TABLET SUBLINGUALLY NEEDED FOR CHEST PAIN. MAY REPEAT DOSE EVERY 5 MINUTES FOR A TOTAL OF 3 DOSES..IF NO RELIEF CALL 911 mirtazapine 30 mg tablet 30 mg PO HS tamsulosin 0.4 mg capsule 0.4 mg PO HS multivitamin Tablet 1 tab PO DAILY melatonin 3 mg Tablet 6 mg PO HS diclofenac sodium 1 % Gel 2 g topical Q6 PRN (Reason: Shoulder Pain) thiamine HCl (vitamin B1) 100 mg Tablet 100 mg PO DAILY omeprazole 20 mg Capsule,Delayed Release(Dr/Ec) 20 mg PO DAILY folic acid 1 mg Tablet 1 mg PO DAILY cholecalciferol (vitamin D3) [Vitamin D3] 25 mcg (1,000 unit) Tablet 25 mcg PO DAILY cyanocobalamin (vitamin B-12) 1,000 mcg Tablet 1,000 mcg PO DAILY metoprolol succinate 25 mg Tablet Extended Release 24 Hr 12.5 mg PO DAILY lactase [Lactaid] 3,000 unit Tablet 3,000 unit PO DAILY omega-3 fatty acids 1,000 mg Capsule 1,000 mg PO QPM acetaminophen [Tylenol] 325 mg Tablet 650 mg PO Q6 MDD 3G PRN (Reason: TEMP > 100.4) formoterol fumarate [Perforomist] 20 mcg/2 mL Solution For Nebulization 20 mcg NEB BIDR Qty: 120 0RF ipratropium-albuterol 0.5 mg-3 mg(2.5 mg base)/3 mL Solution For Nebulization 3 ml NEB Q6R PRN (Reason: shortness of breath or wheezing) Qty: 90 0RF levetiracetam [Keppra] 500 mg Tablet 500 mg PO Q12H Qty: 60 0RF budesonide 0.5 mg/2 mL Suspension For Nebulization 0.5 mg NEB BIDR Qty: 60 0RF bumetanide 1 mg tablet 0.5 mg PO QAM Qty: 15 0RF duloxetine 30 mg capsule, delayed rel sprinkle 90 mg PO DAILY sennosides 8.6 mg Tablet 8.6 mg PO .EVERY 24 HOURS PRN (Reason: Constipation) Referrals Referrals: Danny Soliman DO [Primary Care Provider] - Discharge Problem: Cellulitis Qualifiers: Site of cellulitis: unspecified site Qualified Code(s): L03.90 - Cellulitis, unspecified Anemia Qualifiers: Anemia type: unspecified type Qualified Code(s): D64.9 - Anemia, unspecified
[2024-12-23] MEDS ORDERED: DAPTOmycin 1,200 MG in SYRINGE 0 ML IV ONE (16:35)
--- NOTE | 2024-12-23 16:42 | XRay Report ---
INDICATION: Pain TECHNIQUE: 2 views of the right knee were obtained. COMPARISON: None FINDINGS: No displaced acute osseous process is identified. Redemonstrated right knee arthroplasty with cement augmentation surrounding the tibial stem with components in anatomic alignment. Moderate soft tissue swelling in the anterior aspect of the knee that appears similar to the prior radiograph. Small joint fluid. IMPRESSION: No displaced acute osseous process is identified. Redemonstrated right knee arthroplasty with components in anatomic alignment. Moderate soft tissue swelling the anterior aspect of the knee that is similar to the prior radiograph. Small joint fluid Electronically signed by Gee Law 12-23-2024 4:42 PM
[2024-12-23] MEDS: SODIUM CHLORIDE 0.9% 500 ML IV ONE (17:29)
[2024-12-23] MEDS: MEROPENEM 500 MG in SYRINGE 0 ML IV STA (17:29)
[2024-12-23] MEDS: DAPTOmycin 1,000 MG in SYRINGE 0 ML IV ONE (17:29)
[2024-12-23 17:46] LABS: Appearance Urine Turbid (Clear); Bacteria Urine Automated 4+ (None Seen); Cast Urine Automated 0-2 /lpf (0-2); Epithelial Cell Urine Auto 0-2 /hpf (0-2); Glucose Urine UA Negative (Negative); RBC Urine Automated >20 /hpf (0-2); WBC Urine Automated >50 /hpf (0-5)
--- NOTE | 2024-12-23 17:49 | History & Physical Report ---
Date of Service December 23, 2024 Assessment & Plan (1) UTI (urinary tract infection): (2) Swelling of right knee: (3) History of MRSA infection: (4) Recurrent cellulitis of lower extremity: (5) Chronic venous stasis: Plan This patient is an 79-year-old male who presented on 12/23 for intermittent burning with urination. History of MDR infections (both UTI & skin/soft- tissue). Sent in by the [facility] for urine culture taken on 12/20 that was positive for bacteria with significant resistance. This urine culture is not readily available at time of admission. Also with suspected right knee infection #Suspected MDR UTI VSS on arrival, but patient does appear lethargic, and reports fevers at home UA infected with +4 bacteria Blood cultures ordered, pending Most recent urine cultures on 07/22/24 and 08/12/24 grew Proteus mirabilis ESBL with significant resistance Contact isolation precautions Meropenem 500 mg IV q8h Monitor LFTs Follow current UCx #R knee swelling | foot wounds | recurrent bilateral lower extremity cellulitis | 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 Manjit Kern at [place] in 2022 and subsequent revision on 02/23/2024 for a periprosthetic joint infection Patient endorses worsening right leg pain and right knee swelling x 2 to 3 days [employer] Right knee x-ray on arrival revealed moderate soft tissue swelling and small joint fluid, appears erythematous and warm to the touch CRP and ESR ordered, pending While patient's vitals are stable at admission, he does report fevers at home this past week Orthopedics consult appreciated for arthrocentesis-will hold Xarelto If patient does need revision or wash out, would likely require transfer to [place] Hold Bactrim PPx Continue daptomycin 750 mg IV q24h (adjust as needed for renal function) and meropenem Daily wound care Wound care nurse consult appreciated Hold Xarelto in case of need for procedure #Spells/Drowsiness | untreated LEONARD Patient continues to "pass out" in the middle of conversation Son/daughter often mention this occurs more frequently when he is feeling sick or becoming septic Previous Ddx included obesity hypoventilation syndrome, narcolepsy, or severe daytime hypersomnia from untreated LEONARD Patient does report he has been using his BiPAP at night following a recent admission, and that it has been helping Continue BiPAP HS #Chronic heart failure with improved EF | right-sided heart failure Last echocardiogram on 09/03/2024 revealed LVEF at 50 to 55%; right ventricular dilation He has chronic peripheral edema and possible hepatic congestion Continue strict I&O monitoring, daily weights, low-sodium diet Continue Bumex, metoprolol #PAF | H/o Flutter-currently remains in sinus rhythm He has had significant issues with rapid a flutter and fibrillation in the past which was controlled with amiodarone Continue amiodarone, hold Xarelto for possible procedure Monitor on telemetry #Iron deficiency anemia Chronic (baseline range 11-13); normocytic; Hgb 11.8 on arrival No signs of active bleeding Continue iron supplements Follow CBC #Depression/anxiety Continue with duloxetine, mirtazapine #GERD Continue PPI #Myoclonic jerking Continue Keppra 500 mg BID #Idiopathic neuropathy Continue gabapentin 600mg TID Dose reduce gabapentin if rising creatinine level or if leads to exacerbation of myoclonus Disposition: Admit to [facility] telemetry VTE PPx: Xarelto on hold Called patient's daughter (Diana) on 12/23 and provided update regarding labs/imaging/admission status. History of Present Illness Chief Complaint: Referred by Doctor Primary Care Provider: Danny Soliman DO Mr. 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 He presented on 12/23 at the behest of the [facility] for burning with urination. Patient reports he had a urine culture done 3 days ago which showed "significant resistance". Per the ED, this urine culture is not currently available test (will seek to obtain). Patient does endorse burning with urination, that has been worsening over the past 5 days. He also endorses fever, chills, and night sweats at home. While the patient does have chronic pain in both of his legs, he reports worsening pain in his right lower extremity compared to the left, as well as swelling in the right knee x 2-3 days. Patient denies any purulent drainage from the knee. Patient does have significant history of right knee infections. Patient's vitals are stable at time of admission. ED course: Meropenem 500 mg IV Daptomycin 1000 mg IV NSS 500 mL IV ROS: Patient endorses burning with urination x 5 days, fever, chills, night-sweats, swelling in the right knee, and worsening pain in the right leg. Patient denies chest pain, cough, SOB, abdominal pain, N/V/D, or numbness/tingling in the legs. Allergies Allergy/AdvReac Type Severity Reaction Status Date / Time cat dander Allergy Severe CAT Verified 12/23/24 09:34 HAIR---Swelling of Lip/Tongue/Throat Home Medications Medication Instructions Recorded Confirmed Type aspirin 81 mg tablet,delayed 81 mg PO QAM 08/07/22 12/23/24 History release (Adult Low Dose Aspirin) rivaroxaban 20 mg tablet (Xarelto) 20 mg PO DAILY 11/19/23 12/23/24 History sennosides 8.6 mg tablet 8.6 mg PO .EVERY 24 HOURS PRN 12/15/23 12/23/24 History Constipation mirtazapine 30 mg tablet 30 mg PO HS 01/21/24 12/23/24 History nitroglycerin 0.4 mg sublingual 0.4 mg sublingual DIRECTED PRN 01/21/24 12/23/24 History tablet chest pin ferrous sulfate 325 mg (65 mg 325 mg PO DAILY #90 tabs 05/11/24 12/23/24 Rx iron) tablet diclofenac sodium 1 % topical gel 2 g topical Q6 PRN Shoulder Pain 07/22/24 12/23/24 History melatonin 3 mg tablet 6 mg PO HS 07/22/24 12/23/24 History multivitamin 1 tab PO DAILY 07/22/24 12/23/24 History tamsulosin 0.4 mg capsule 0.4 mg PO HS 07/22/24 12/23/24 History folic acid 1 mg tablet 1 mg PO DAILY 08/12/24 12/23/24 History omeprazole 20 mg capsule,delayed 20 mg PO DAILY 08/12/24 12/23/24 History release thiamine HCl (vitamin B1) 100 mg 100 mg PO DAILY 08/12/24 12/23/24 History tablet acetaminophen 325 mg tablet 650 mg PO Q6 PRN TEMP > 100.4 10/26/24 12/23/24 History (Tylenol) cholecalciferol (vitamin D3) 25 25 mcg PO DAILY 10/26/24 12/23/24 History mcg (1,000 unit) tablet (Vitamin D3) cyanocobalamin (vitamin B-12) 1,000 mcg PO DAILY 10/26/24 12/23/24 History 1,000 mcg tablet lactase 3,000 unit tablet (Lactaid) 3,000 unit PO DAILY 10/26/24 12/23/24 History metoprolol succinate 25 mg 12.5 mg PO DAILY 10/26/24 12/23/24 History tablet,extended release 24 hr omega-3 fatty acids 1,000 mg 1,000 mg PO QPM 10/26/24 12/23/24 History capsule budesonide 0.5 mg/2 mL suspension 0.5 mg (2 mL) NEB BIDR #60 mL 10/28/24 12/23/24 Rx for nebulization bumetanide 1 mg tablet 0.5 mg (1/2 x 1 mg) PO QAM #15 tabs 10/28/24 12/23/24 Rx formoterol fumarate 20 mcg/2 mL 20 mcg (2 mL) NEB BIDR #120 mL 10/28/24 12/23/24 Rx solution for nebulization (Perforomist) ipratropium 0.5 mg-albuterol 3 mg 3 ml NEB Q6R PRN shortness of 10/28/24 12/23/24 Rx (2.5 mg base)/3 mL nebulization breath or wheezing #90 mL soln levetiracetam 500 mg tablet 500 mg PO Q12H #60 tabs 10/28/24 12/23/24 Rx (Keppra) gabapentin 100 mg capsule 600 mg PO TID 11/14/24 12/23/24 History netarsudil 0.02 %-latanoprost 1 drp ophthalmic (eye) DIRECTED 11/14/24 12/23/24 History 0.005 % eye drops (Rocklatan) duloxetine 30 mg capsule,delayed 90 mg PO DAILY 11/25/24 12/23/24 History release sprinkle amiodarone 200 mg tablet 200 mg PO QAM #90 tabs 12/02/24 12/23/24 Rx sulfamethoxazole 800 1 tab PO UD 12/07/24 12/23/24 History mg-trimethoprim 160 mg tablet (Bactrim DS) Past Med/Surg History Problem List (Updated 12/23/24 @ 19:04 by Kendall Chowdhury PA-C) Swelling of right knee UTI (urinary tract infection) Skin tear of left upper extremity Sleeping excessive (Acute) Has daytime drowsiness (Acute) IPMN (intraductal papillary mucinous neoplasm) Elevated liver enzymes Open wound of left elbow (Acute) Cardiomyopathy Heart failure with improved ejection fraction (HFimpEF) Foot ulcer, right Idiopathic polyneuropathy Somnolence Myoclonus Generalized weakness (Acute) Pneumonia (Acute) JEFFERY (acute kidney injury) Bilateral lower leg cellulitis Right upper lobe pneumonia Skin tear of left hand without complication (Acute) Idiopathic peripheral neuropathy Spinal stenosis, lumbar region with neurogenic claudication Paroxysmal atrial fibrillation Syncope (Acute) HFrEF (heart failure with reduced ejection fraction) Transaminitis Venous stasis ulcers of both lower extremities Non-pressure chronic ulcer of other part of left foot limited to breakdown of skin Non-pressure chronic ulcer of other part of right foot limited to breakdown of skin Peripheral arterial disease (Chronic) Pressure ulcer of right foot, stage 3 Chronic diastolic heart failure Atrial fibrillation History of MRSA infection Recurrent cellulitis of lower extremity (Acute) Polyneuropathy Depression Atrial flutter (Acute) Atrial fibrillation with RVR Open wound of knee (Acute) Venous ulcers of both lower extremities (Acute) Pain associated with wound Palliative care by specialist Advanced care planning/counseling discussion Back pain VRE bacteremia Ambulatory dysfunction Infection of prosthetic right knee joint Fall (Acute) Anemia (Acute) Hypomagnesemia (Acute) Bilateral cellulitis of lower leg (Acute) Peripheral neuropathy Chronic venous stasis Cellulitis of both feet (Acute) Rheumatoid arthritis Open wound of foot Open wound of right hand (Acute) Chronic wound (Acute) Lymphangitis of lower extremity Hypomagnesemia (Acute) Open wound of left upper arm (Acute) Open wound of left arm with tendon injury Gram-negative bacteremia Cellulitis of right lower extremity (Acute) Generalized weakness (Acute) Elevated procalcitonin (Acute) Acute kidney injury superimposed on chronic kidney disease (Acute) Skin tear of right upper extremity (Acute) Open wound of left foot (Acute) Open wound of right foot (Acute) Skin tear of right hand without complication (Acute) Venous ulcer of left leg (Acute) Traumatic open wound of right lower leg (Acute) Elevated LFTs Dislocation, hip closed (Acute) Dislocation, hip, posterior Rotator cuff arthropathy of both shoulders Abrasion of right knee (Acute) Pain of right hip Prophylactic antibiotic Left shoulder pain Acquired foot deformity (Chronic) Traumatic wound (Acute) Pressure ulcer of left foot, stage 3 (Acute) Abnormal ankle brachial index (Acute) Right knee pain Non-ST elevation OK (NSTEMI) (Acute) Leukocytosis (Acute) Cervical radiculopathy Neuropathy Weakness On amiodarone therapy Weakness of right hip Constipation Sepsis following procedure Rhabdomyolysis MRSA infection Visual disturbance Hyponatremia Hypotension Acute metabolic encephalopathy Abdominal wall abscess (Acute) HFrEF (heart failure with reduced ejection fraction) EF 40% Mar 2022, improved 55-60% August 2022 Lumbar stenosis Osteoarthritis of right knee Anxiety and depression Hypertension Coronary artery disease Atherogenic dyslipidemia Lumbar radiculopathy Lower extremity weakness Degenerative spondylolisthesis Chronic low back pain Scoliosis of lumbar region due to degenerative disease of spine in adult Dislocation of hip, right, closed (Acute) Septic joint of right knee joint COVID-19 (Acute) Incisional hernia Incarcerated intra-abdominal hernia (Acute) Adjustment disorder with mixed anxiety and depressed mood Medical History Obstructive sleep apnea Obesity hypoventilation syndrome Atelectasis Elevated brain natriuretic peptide (BNP) level Bronchitis due to human metapneumovirus (hMPV) Infection due to human metapneumovirus (hMPV) Fatigue Cough History of infection of total joint prosthesis of knee Weakness MRSA bacteremia Hypoxia Hypotension Hyperkalemia Lethargy Ischemic ulcer of left foot Ischemic ulcer of right foot Bilateral lower leg cellulitis PVD (peripheral vascular disease) Atrial flutter with rapid ventricular response Open wound of left lower extremity Sepsis secondary to UTI Fever Sepsis due to skin infection Sepsis Fall Infected hardware in right leg Chronic infection of right knee Severe sepsis Venous ulcer of right leg History of immunosuppressive therapy Heart failure with preserved ejection fraction GERD (gastroesophageal reflux disease) Sepsis Septicemia due to Streptococcus pneumoniae Respiratory failure with hypoxia Hypomagnesemia Pneumonia Benign essential hypertension Lumbar stenosis Hx of staphylococcal infection 03/2022, w/"bacterial infection" at the same, in the rt. knee, occurrred during atrial fibrillation episode. "when he woke up, he couldn't walk." Atrial fibrillation episode occurred in 03/2022, taken to [facility], admitted to ICU for 1-2 weeks (was not intubated, but wasn't "awake either"), then to cardiac unit, then to rehab at [facility]; f/u dr. guerra in [place]>will be starting to see a cleaner furniture at [facility] 2nd week of 08/2022 Myocardial Infarction "a silent one, 2019" Sleep apnea no device Surgical History Status post revision of total replacement of right knee Hx of Achilles tendon repair rt. Hx of knee surgery rt. patellar tendon repair Hx of rotator cuff surgery bilateral Hx of total knee replacement lt. Hx of total hip arthroplasty rt. History of colostomy reversal History of bowel resection for diverticulitis; w/colostomy placement for 3-4 months Hx of hernia repair near former colostomy site History of esophagogastroduodenoscopy (EGD) Hx of colonoscopy Last Colonoscopy 08/14/22, repeat 3 years in 2025 Hx of bilateral cataract extraction History of heart artery stent ~3 years ago, x2 stents, done in [place]; f/u dr guerra, [place]>will be seeing new cardio at [place] week of August 2022. History of cardiac cath ~3 years ago, SOB and "felt like throat was constricting", had "silent heart attack", x2 stents, done in [place] Family History Grandmother (Maternal) Diabetes Daughter Diabetes Father Suicide Hypertension Denies family history of Ovarian cancer Prostate cancer Myocardial infarction Breast cancer Lung cancer Colorectal cancer Stroke Social History Smoking Status: Never smoker Second Hand Exposure: No; Do You Dip or Chew Tobacco: No; Hx Alcohol Use: Yes Alcohol type: wine Alcohol Intake Frequency: 4 or More x per/Week Hx Substance Use: No Preferred Language: Burmese Communication Ability: Effective Visual Impairment: Limited Hearing Ability: Normal Online Merchandising Specialist Required: No Beliefs That Will Affect Care: None marital status: Single Current Living Situation: Personal Care Facility Current Living Situation Comment: [facility] current occupational status: retired How many Children do You have: 2 Feels Safe at Home: Yes Childhood Exposure to Second-Hand Smoke: Yes Diet: regular caffeine: Yes Dental Care, Regularly: Yes Physical Activity Frequency: Does not Exercise Seatbelt Use: always Sunscreen Use: Yes Assistive Devices: Wheelchair Review of Systems 2 Review of Systems: See HPI above Physical Exam 2 Physical Exam: General: no acute distress; pleasant affect; patient appears lethargic, and regularly falls asleep during conversation; non-toxic appearing; well-nourished; cooperative; SpO2 94% on RA HEENT: normocephalic, atraumatic; no scleral icterus; PERRLA w/ EOMs intact; vision and hearing grossly intact Neck: supple; no lymphadenopathy; trachea midline Skin: warm, dry without signs of tenting; no cyanosis; no rashes, bruising, lesions, or erythema noted CV: chest wall NTP; RRR; S1/S2 normal; no murmurs/rubs/gallops; pulses intact and symmetric at radial, DP, and PT Lungs: no acute respiratory distress; symmetrical chest wall expansion; clear breath sounds across all lung hathaway w/o adventitious sounds; no wheezing ABD: Soft, NTP; BS present; no rebound/guarding; no distention RLE: Right lower extremity is edematous, erythematous with +1 pitting edema; right knee is significantly swollen when compared left; no purulent drainage identified (see photos below) MSK: no tics or fasciculations; lower extremities are tender to palpation bilaterally Neuro: A&Ox3; flat mood and affect; fluent speech; no focal deficits appreciated; patient reports that sensation is intact and symmetric in lower extremity bilaterally Results & Data Results & Data Vital Signs (Past 12 Hours) Vital Signs Temp Pulse Resp BP Pulse Ox O2 Del Method 12/23/24 17:30 72 24 128/81 94 12/23/24 17:01 98/72 L 12/23/24 16:31 79 19 132/85 12/23/24 16:18 74 12/23/24 16:06 80 16 143/73 H 96 Room Air 12/23/24 15:19 36.7 C 75 18 164/88 H 94 Room Air Laboratory Results Abnormal lab results 12/23/24 12/23/24 Range/Units 15:41 17: RBC 3.92 L (4.70-6.10) M/uL Hgb 11.8 L (14.0-18.0) g/dl Hct 37.3 L (42.0-52.0) % MCHC 31.6 L (32.0-36.0) g/dL RDW Std Deviation 62.5 H (36.4-46.3) fL RDW Coeff of Sammie 18.1 H (11.5-14.5) % MPV 9.2 L (9.4-12.4) fL Lymph # (Auto) 0.71 L (1.20-3.40) K/uL Owen # (Auto) 0.91 H (0.11-0.59) K/uL BUN 34 H (6-23) mg/dl BUN/Creatinine Ratio 28.1 H (10-20) Glucose 117 H (70-99(Fasting)) mg/dl Albumin 3.3 L (3.4-5.0) gm/dl Urine Appearance Turbid A (Clear) Urine pH 8.0 H (4.5-7.5) Urine Protein 2+ H (Negative) Urine Blood 2+ H (Negative) Urine Nitrite Positive A (Negative) Ur Leukocyte Esterase 3+ H (Negative) Urine WBC (Auto) >50 H (0-5) /hpf Urine RBC (Auto) >20 H (0-2) /hpf Urine Bacteria (Auto) 4+ H (None Seen) Diagnostic Findings Knee X-Ray 12/23/24 16:21 INDICATION: Pain TECHNIQUE: 2 views of the right knee were obtained. COMPARISON: None FINDINGS: No displaced acute osseous process is identified. Redemonstrated right knee arthroplasty with cement augmentation surrounding the tibial stem with components in anatomic alignment. Moderate soft tissue swelling in the anterior aspect of the knee that appears similar to the prior radiograph. Small joint fluid. IMPRESSION: No displaced acute osseous process is identified. Redemonstrated right knee arthroplasty with components in anatomic alignment. Moderate soft tissue swelling the anterior aspect of the knee that is similar to the prior radiograph. Small joint fluid Electronically signed by Gee Law 12-23-2024 4:42 PM Code Status & VTE Plan Code Status Full code VTE Prophylaxis Plan VTE Prophylaxis will be ordered: Yes Supervising Physician Co-Signing Physician Notes ISREAL Jacobs Note: I personally saw and examined the patient. I verified all lubin points and agree with ISREAL Chowdhury with the following exceptions and/or additions: S-patient presents for UTI symptoms and found to have multidrug[facility] He also has had pain and increased swelling and redness with fevers of the right knee for the last 2 to 3 days History and ROS otherwise reviewed as above O- Vitals reviewed Gen: AAOx3, NAD, obese HEENT: Anicteric sclerae, EOMI CV: RRR no mgr nl S1S2 Pulm: CTAB no wcr Abd: +BS soft NT ND no masses or hernias Ext: Right knee with moderate effusion, erythema and warm to the touch, decreased range of motion on positive TTP Skin: Dry skin, chronic venous stasis changes of legs, multiple small wounds of legs, left knee, and right foot CBC, CMP, ESR, lactate, CRP, UA reviewed [id number] male here with multiple medical problems here with MDR UTI and possible right prosthetic knee infection - Continue broad-spectrum antibiotics with meropenem and daptomycin - Consult orthopedics for possible or through centesis of right knee and may need transfer to [place] if positive for infection - Will obtain urine culture results from the [facility] Care Time/CCT Total # of Minutes Spent Total Time Spent with Patient: Total time spent is greater than 50% in coordination of care (as documented) at patient's floor/unit and/or counseling patient: C[place] [address] INT INP/OBS CARE 3/75MIN Patient Type Established Medical Decision Making High Complexity Diagnoses UTI (urinary tract infection) N39.0 Swelling of right knee M25.461 History of MRSA infection Z86.14 Recurrent cellulitis of lower extremity L03.119 Chronic venous stasis I87.8
[2024-12-24] MEDS ORDERED: NITROGLYCERIN SL 0.4 MG/TAB TAB SL PRN (00:07)
[2024-12-24] MEDS: FORMOTEROL 20 MCG/2 ML VIAL NEB SCH (01:07)
[2024-12-24] MEDS: BUDESONIDE 0.5 MG/2 ML VIAL (PULMICORT) NEB SCH (01:07)
[2024-12-24] MEDS: MELATONIN 3 MG TAB PO SCH (01:58)
[2024-12-24] MEDS: MIRTAZAPINE TAB 15 MG TAB PO SCH (01:59)
[2024-12-24] MEDS: MEROPENEM 500 MG in SYRINGE 0 ML IV SCH (01:59)
[2024-12-24] MEDS: GABAPENTIN 600 MG TAB PO SCH (02:00)
[2024-12-24] MEDS: levETIRAcetam 500 MG TAB PO SCH (02:00)
[2024-12-24] MEDS: TAMSULOSIN HCL 0.4 MG CAP PO SCH (02:00)
[2024-12-24 08:03] LABS: Alanine Aminotransferase 29.0 U/L (7-52); Albumin Globulin Ratio 0.9 (0.9-2); Alkaline Phosphatase 67.0 U/L (34-104); Anion Gap 6.0 (3-11); Bilirubin,Total 0.5 mg/dl (0.2-1.0); Blood Urea Nitrogen 27.0 mg/dl (6-23); Calcium 8.4 mg/dl (8.6-10.3); Carbon Dioxide 27.0 mmol/L (21-32); Chloride 106.0 mmol/L (98-107); Creatinine Clr Calc Pharmacy 77.2 ml/min; Globulin 3.1 gm/dl (2.5-4.0); Glucose 92.0 mg/dl (70-99(Fasting)); Potassium 4.2 mmol/L (3.5-5.1); Sodium 139.0 mmol/L (136-145); Total Protein 6.0 gm/dl (6.0-8.3)
[2024-12-24] MEDS: LIDOCAINE 1% LOCAL 20 ML VIAL INJ ONE (09:28)
--- NOTE | 2024-12-24 09:38 | Orthopedic Consultation ---
Date of Consultation December 24, 2024 Assessment & Plan (1) Swelling of right knee: Patient will need maximal assistance for transitioning. He is wheelchair-bound and has been so for the past few years May resume his Xarelto for DVT prophylaxis and his atrial fibrillation Ice with easy wrap Place pillow under his right knee Pain control with p.o. medication per medicine discretion Continue his oral Bactrim and possibly IV antibiotics [facility]. Will continue to follow while in hospital, will plan for follow-up with Dr. Kern Will check Dr. Kern's last office note in [facility] Supervising Physician Co-Signing Physician Notes I, Dr. Ramos, saw and examined the patient with my PA. I discussed the management with my PA. I reviewed my PAs note and agree with the documented findings and attest to completing the substantive portion of medical decision making and plan of care I developed. History of Present Illness Reason for Consultation: Right knee swelling/cellulitis Requesting Physician: Franc Ramos MD Attending Physician: Shaheen Vance MD History of Present Illness This 79-year-old male seen in consultation for right knee swelling/cellulitis with effusion. Patient has a total knee and knee performed by Dr. Kern almost 2 years ago. Patient states that about 6 days ago he noticed swelling redness and warmth in the knee. Denies any trauma. He states that he is on lifetime Bactrim due to multiple infections in the knee. This was infectious disease recommendation. Patient states that he is wheelchair-bound has been so for the past 2 years. He states that he may have bumped in the office something while maneuvering around his apartment. He last underwent I&D and poly exchange by Dr. Kern in [place], 08/2024. Currently he denies fever, chills, sweats, nausea, vomiting or difficulty voiding. Allergies Allergy/AdvReac Type Severity Reaction Status Date / Time cat dander Allergy Severe CAT Verified 12/23/24 09:34 HAIR---Swelling of Lip/Tongue/Throat Home Medications Medication Instructions Recorded Confirmed Type aspirin 81 mg tablet,delayed 81 mg PO QAM 08/07/22 12/23/24 History release (Adult Low Dose Aspirin) rivaroxaban 20 mg tablet (Xarelto) 20 mg PO DAILY 11/19/23 12/23/24 History sennosides 8.6 mg tablet 8.6 mg PO .EVERY 24 HOURS PRN 12/15/23 12/23/24 History Constipation mirtazapine 30 mg tablet 30 mg PO HS 01/21/24 12/23/24 History nitroglycerin 0.4 mg sublingual 0.4 mg sublingual DIRECTED PRN 01/21/24 12/23/24 History tablet chest pin ferrous sulfate 325 mg (65 mg 325 mg PO DAILY #90 tabs 05/11/24 12/23/24 Rx iron) tablet diclofenac sodium 1 % topical gel 2 g topical Q6 PRN Shoulder Pain 07/22/24 12/23/24 History melatonin 3 mg tablet 6 mg PO HS 07/22/24 12/23/24 History multivitamin 1 tab PO DAILY 07/22/24 12/23/24 History tamsulosin 0.4 mg capsule 0.4 mg PO HS 07/22/24 12/23/24 History folic acid 1 mg tablet 1 mg PO DAILY 08/12/24 12/23/24 History omeprazole 20 mg capsule,delayed 20 mg PO DAILY 08/12/24 12/23/24 History release thiamine HCl (vitamin B1) 100 mg 100 mg PO DAILY 08/12/24 12/23/24 History tablet acetaminophen 325 mg tablet 650 mg PO Q6 PRN TEMP > 100.4 10/26/24 12/23/24 History (Tylenol) cholecalciferol (vitamin D3) 25 25 mcg PO DAILY 10/26/24 12/23/24 History mcg (1,000 unit) tablet (Vitamin D3) cyanocobalamin (vitamin B-12) 1,000 mcg PO DAILY 10/26/24 12/23/24 History 1,000 mcg tablet lactase 3,000 unit tablet (Lactaid) 3,000 unit PO DAILY 10/26/24 12/23/24 History metoprolol succinate 25 mg 12.5 mg PO DAILY 10/26/24 12/23/24 History tablet,extended release 24 hr omega-3 fatty acids 1,000 mg 1,000 mg PO QPM 10/26/24 12/23/24 History capsule budesonide 0.5 mg/2 mL suspension 0.5 mg (2 mL) NEB BIDR #60 mL 10/28/24 12/23/24 Rx for nebulization bumetanide 1 mg tablet 0.5 mg (1/2 x 1 mg) PO QAM #15 tabs 10/28/24 12/23/24 Rx formoterol fumarate 20 mcg/2 mL 20 mcg (2 mL) NEB BIDR #120 mL 10/28/24 12/23/24 Rx solution for nebulization (Perforomist) ipratropium 0.5 mg-albuterol 3 mg 3 ml NEB Q6R PRN shortness of 10/28/24 12/23/24 Rx (2.5 mg base)/3 mL nebulization breath or wheezing #90 mL soln levetiracetam 500 mg tablet 500 mg PO Q12H #60 tabs 10/28/24 12/23/24 Rx (Keppra) gabapentin 100 mg capsule 600 mg PO TID 11/14/24 12/23/24 History netarsudil 0.02 %-latanoprost 1 drp ophthalmic (eye) DIRECTED 11/14/24 12/23/24 History 0.005 % eye drops (Rocklatan) duloxetine 30 mg capsule,delayed 90 mg PO DAILY 11/25/24 12/23/24 History release sprinkle amiodarone 200 mg tablet 200 mg PO QAM #90 tabs 12/02/24 12/23/24 Rx sulfamethoxazole 800 1 tab PO UD 12/07/24 12/23/24 History mg-trimethoprim 160 mg tablet (Bactrim DS) Patient History Medical History Obstructive sleep apnea Obesity hypoventilation syndrome Atelectasis Elevated brain natriuretic peptide (BNP) level Bronchitis due to human metapneumovirus (hMPV) Infection due to human metapneumovirus (hMPV) Fatigue Cough History of infection of total joint prosthesis of knee Weakness MRSA bacteremia Hypoxia Hypotension Hyperkalemia Lethargy Ischemic ulcer of left foot Ischemic ulcer of right foot Bilateral lower leg cellulitis PVD (peripheral vascular disease) Atrial flutter with rapid ventricular response Open wound of left lower extremity Sepsis secondary to UTI Fever Sepsis due to skin infection Sepsis Fall Infected hardware in right leg Chronic infection of right knee Severe sepsis Venous ulcer of right leg History of immunosuppressive therapy Heart failure with preserved ejection fraction GERD (gastroesophageal reflux disease) Sepsis Septicemia due to Streptococcus pneumoniae Respiratory failure with hypoxia Hypomagnesemia Pneumonia Benign essential hypertension Lumbar stenosis Hx of staphylococcal infection 03/2022, w/"bacterial infection" at the same, in the rt. knee, occurrred during atrial fibrillation episode. "when he woke up, he couldn't walk." Atrial fibrillation episode occurred in 03/2022, taken to [facility] in [place], admitted to ICU for 1-2 weeks (was not intubated, but wasn't "awake either"), then to cardiac unit, then to rehab at [facility]; f/u dr. guerra in [place]>will be starting to see a mud grinder at [facility] 2nd week of 08/2022 Myocardial Infarction "a silent one, 2019" Sleep apnea no device Surgical History Status post revision of total replacement of right knee Hx of Achilles tendon repair rt. Hx of knee surgery rt. patellar tendon repair Hx of rotator cuff surgery bilateral Hx of total knee replacement lt. Hx of total hip arthroplasty rt. History of colostomy reversal History of bowel resection for diverticulitis; w/colostomy placement for 3-4 months Hx of hernia repair near former colostomy site History of esophagogastroduodenoscopy (EGD) Hx of colonoscopy Last Colonoscopy 08/14/22, repeat 3 years in 2025 Hx of bilateral cataract extraction History of heart artery stent ~3 years ago, x2 stents, done in [place]; f/u dr guerra, [place]>will be seeing new cardio at [place] 2nd week of August 2022. History of cardiac cath ~3 years ago, SOB and "felt like throat was constricting", had "silent heart attack", x2 stents, done in [place] Family History Grandmother (Maternal) Diabetes Daughter Diabetes Father Suicide Hypertension Denies family history of Ovarian cancer Prostate cancer Myocardial infarction Breast cancer Lung cancer Colorectal cancer Stroke Social History Smoking Status: Never smoker Second Hand Exposure: No; Do You Dip or Chew Tobacco: No; Hx Alcohol Use: Yes Alcohol type: wine Alcohol Intake Frequency: 4 or More x per/Week Hx Substance Use: No Preferred Language: Setswana Communication Ability: Effective Visual Impairment: Limited Hearing Ability: Normal Plant Assigner Required: No Beliefs That Will Affect Care: None marital status: Single Current Living Situation: Alone Current Living Situation Comment: Independant living at [facility] current occupational status: retired How many Children do You have: 2 Feels Safe at Home: Yes Childhood Exposure to Second-Hand Smoke: Yes Diet: regular caffeine: Yes Dental Care, Regularly: Yes Physical Activity Frequency: Does not Exercise Seatbelt Use: always Sunscreen Use: Yes Assistive Devices: Wheelchair Review of Systems Review of Systems: All systems reviewed & are unremarkable except as noted in Subjective Physical Exam Physical Exam: Right knee: Patient has moderate edema and erythema with some warmth over the e ntire knee. He also has venous stasis dermatitis extending from just the knee to the ankle. There is also edema to admitted dorsal foot. Peripheral pulses are 1+. Patient is able to detect light sensation to touch over the pads of all digits. He is able to actively dorsi and plantarflex foot. Knee range of motion is limited due to flexion contracture where patient is about 25 degrees extension and flexion is limited to 90 degrees. There is a palpable effusion. Patient experiences medial and lateral joint tenderness when he is palpating the proximal position. He is neurovascularly intact. Procedure performed by my PA under my direct supervision: Patient was lying prone on the table with his knee slightly flexed. The right knee was marked with a skin marker identifying the appropriate extremity. Patient verbalizes after time-out the we will proceed with a right knee aspiration. After cleansing the enid site with an alcohol swab, 3 mL of 1% lidocaine solution was injected for anesthesia. Site was then cleansed a Betadine swab, and also a 4x4 and wiped dry with sterile 4 x 4. An 18-gauge needle connected to a 30 cc syringe was passed through the right superolateral pouch. PA was not able to express any fluid and a dry tap was experienced. Upon removal of the needle there are some slight bleeding that was easily controlled with pressure. Site was again cleansed with alcohol soaked 4 x 4 and covered with a Band-Aid. STUART Taveras served as witness with the procedure. Results & Data Vital Signs (Past 12 Hours) Vital Signs Temp Pulse Pulse Resp BP BP Pulse Ox 12/24/24 07:33 36.8 C 77 18 106/68 91 12/24/24 07:19 70 16 91 12/24/24 05:42 76 12/24/24 01:43 65 12 99 12/24/24 00:05 75 12/24/24 00:05 12/24/24 00:05 36.6 C 14 125/82 93 12/23/24 23:44 67 18 98 12/23/24 22:18 58 L 21 12/23/24 22:06 69 21 12/23/24 21:39 83 24 12/23/24 21:31 126/77 12/23/24 21:31 126/77 12/23/24 21:27 71 21 O2 Del Method 12/24/24 07:33 Room Air 12/24/24 07:19 Room Air 12/24/24 05:42 12/24/24 01:43 12/24/24 00:05 12/24/24 00:05 Room Air 12/24/24 00:05 Room Air 12/23/24 23:44 Room Air 12/23/24 22:18 12/23/24 22:06 12/23/24 21:39 12/23/24 21:31 12/23/24 21:31 12/23/24 21:27 Diagnostic Findings Laboratory Results WBC 6.34 K/ul (4.8-10.8) 12/23/24 15:41 RBC 3.92 M/uL (4.70-6.10) L 12/23/24 15:41 Hgb 11.8 g/dl (14.0-18.0) L 12/23/24 15:41 Hct 37.3 % (42.0-52.0) L 12/23/24 15:41 MCV 95.2 fL (80.0-100.0) 12/23/24 15:41 MCH 30.1 pg (25.0-34.0) 12/23/24 15:41 MCHC 31.6 g/dL (32.0-36.0) L 12/23/24 15:41 RDW Std Deviation 62.5 fL (36.4-46.3) H 12/23/24 15:41 RDW Coeff of Sammie 18.1 % (11.5-14.5) H 12/23/24 15:41 Plt Count 257 K/uL (130-400) 12/23/24 15:41 MPV 9.2 fL (9.4-12.4) L 12/23/24 15:41 Immature Gran % (Auto) 0.2 % 12/23/24 15:41 Neut % (Auto) 69.6 % 12/23/24 15:41 Lymph % (Auto) 11.2 % 12/23/24 15:41 [place] % (Auto) 14.4 % 12/23/24 15:41 Eos % (Auto) 4.1 % 12/23/24 15:41 Baso % (Auto) 0.5 % 12/23/24 15:41 Neut # (Auto) 4.42 K/uL (1.40-6.50) 12/23/24 15:41 Lymph # (Auto) 0.71 K/uL (1.20-3.40) L 12/23/24 15:41 [place] # (Auto) 0.91 K/uL (0.11-0.59) H 12/23/24 15:41 Eos # (Auto) 0.26 K/uL (0.00-0.50) 12/23/24 15:41 Baso # (Auto) 0.03 K/uL (0.00-0.20) 12/23/24 15:41 Immature Gran # (Auto) 0.01 K/uL (0.01-0.20) 12/23/24 15:41 ESR 77 mm/hr (0-20) H 12/23/24 15:41 Sodium 139 mmol/L (136-145) 12/24/24 06:55 Potassium 4.2 mmol/L (3.5-5.1) 12/24/24 06:55 Chloride 106 mmol/L (98-107) 12/24/24 06:55 Carbon Dioxide 27 mmol/L (21-32) 12/24/24 06:55 Anion Gap 6 (3-11) 12/24/24 06:55 BUN 27 mg/dl (6-23) H 12/24/24 06:55 Creatinine 1.00 mg/dl (0.6-1.4) 12/24/24 06:55 Est Cr Clr Drug Dosing 77.2 ml/min 12/24/24 06:55 eGFR 75.61 12/24/24 06:55 BUN/Creatinine Ratio 27.0 (10-20) H 12/24/24 06:55 Glucose 92 mg/dl (70-99(Fasting)) 12/24/24 06:55 Lactate 1.3 mmol/L (0.4-2.0) 12/23/24 16:40 Calcium 8.4 mg/dl (8.6-10.3) L 12/24/24 06:55 Total Bilirubin 0.5 mg/dl (0.2-1.0) 12/24/24 06:55 AST 33 U/L (13-39) 12/24/24 06:55 ALT 29 U/L (7-52) 12/24/24 06:55 Alkaline Phosphatase 67 U/L (34-104) 12/24/24 06:55 C-Reactive Protein 12.97 mg/dl (0-0.5) H 12/24/24 06:55 Total Protein 6.0 gm/dl (6.0-8.3) 12/24/24 06:55 Albumin 2.9 gm/dl (3.4-5.0) L 12/24/24 06:55 Globulin 3.1 gm/dl (2.5-4.0) 12/24/24 06:55 Albumin/Globulin Ratio 0.9 (0.9-2) 12/24/24 06:55 Procalcitonin 0.10 ng/ml (0-0.5) 12/23/24 15:16 Urine Color Dark Yellow 12/23/24 17:25 Urine Appearance Turbid (Clear) A 12/23/24 17:25 Urine pH 8.0 (4.5-7.5) H 12/23/24 17:25 Ur Specific [place] 1.022 (1.000-1.030) 12/23/24 17:25 Urine Protein 2+ (Negative) H 12/23/24 17:25 Urine Glucose (UA) Negative (Negative) 12/23/24 17:25 Urine Ketones Negative (Negative) 12/23/24 17: Urine Blood 2+ (Negative) H 12/23/24 17:25 Urine Nitrite Positive (Negative) A 12/23/24 17:25 Urine Bilirubin Negative (Negative) 12/23/24 17:25 Urine Urobilinogen Negative (Negative) 12/23/24 17:25 Ur Leukocyte Esterase 3+ (Negative) H 12/23/24 17:25 Urine WBC (Auto) >50 /hpf (0-5) H 12/23/24 17:25 Urine RBC (Auto) >20 /hpf (0-2) H 12/23/24 17:25 U Hyaline Cast (Auto) 0-2 /lpf (0-2) 12/23/24 17:25 U Epithel Cells (Auto) 0-2 /hpf (0-2) 12/23/24 17:25 Urine Bacteria (Auto) 4+ (None Seen) H 12/23/24 17:25 Urine Comment 12/23/24 17:25 Impressions Knee X-Ray 12/23/24 16:21 INDICATION: Pain TECHNIQUE: 2 views of the right knee were obtained. COMPARISON: None FINDINGS: No displaced acute osseous process is identified. Redemonstrated right knee arthroplasty with cement augmentation surrounding the tibial stem with components in anatomic alignment. Moderate soft tissue swelling in the anterior aspect of the knee that appears similar to the prior radiograph. Small joint fluid. IMPRESSION: No displaced acute osseous process is identified. Redemonstrated right knee arthroplasty with components in anatomic alignment. Moderate soft tissue swelling the anterior aspect of the knee that is similar to the prior radiograph. Small joint fluid Electronically signed by Gee Law 12-23-2024 4:42 PM
[2024-12-24] MEDS: ERTAPENEM 1000MG 1,000 MG/10 ML SYR IV SCH (10:28)
[2024-12-24] MEDS: MULTIVITAMIN TAB PO SCH (10:29)
[2024-12-24] MEDS: METOPROLOL SUCC 25MG EXT REL TAB PO SCH (10:29)
[2024-12-24] MEDS: CHOLECALCIFEROL 25 MCG (1000 UNITS) TAB PO SCH (10:29)
[2024-12-24] MEDS: ASPIRIN 81 MG ECTAB PO SCH (10:30)
[2024-12-24] MEDS: BUMETANIDE 1 MG TAB PO SCH (10:30)
[2024-12-24] MEDS: CYANOCOBALAMIN (B-12) 500 MCG TABLET PO SCH (10:31)
[2024-12-24] MEDS: THIAMINE HCL 100 MG TAB PO SCH (10:32)
[2024-12-24] MEDS: AMIODARONE 200 MG TAB PO SCH (10:32)
[2024-12-24] MEDS: FOLIC ACID 1 MG TAB PO SCH (10:32)
[2024-12-24] MEDS: FERROUS SULFATE 325 MG TAB PO SCH (10:32)
[2024-12-24] MEDS: LACTASE 3000 UNIT TAB PO SCH (10:34)
--- NOTE | 2024-12-24 12:22 | Hospitalist Progress Note ---
Date of Service December 24, 2024 Assessment & Plan (1) UTI (urinary tract infection): (2) Swelling of right knee: (3) History of MRSA infection: (4) Recurrent cellulitis of lower extremity: (5) Chronic venous stasis: Plan This patient is an 79-year-old male who presented on 12/23 for intermittent burning with urination. History of MDR infections (both UTI & skin/soft- tissue). Sent in [facility] for urine culture taken on 12/20 that was positive for bacteria with significant resistance. This urine culture is not readily available at time of admission. Also with suspected worsening right knee infection. #Suspected MDR UTI VSS on 12/23 and on 12/24; patient does report he had fevers at home prior to arrival UA infected with +4 bacteria Blood cultures ordered, pending Most recent urine cultures on 07/22/24 and 08/12/24 grew Proteus mirabilis ESBL with significant resistance Preliminary UCx on 12/24 growing Proteus mirabilis Contact isolation precautions Swtiched meropenem -> ertapenem 1000mg IV q24h on 12/24 for easier dosing Per review of prior UCx and wound cultures, no history of pseudomonas Patient expresses a strong desire to return home when possible Given VSS, no leukocytosis on arrival, and downtrending CRP, spoke with case management regarding possibility of discharge on MTU on 12/24 Unfortunately, the patient will require insurance authorization through the [facility] to make sure he does not get a bill, so the earliest we would be able to set up MTU would be on Tuesday 12/26 #R knee swelling | foot wounds | recurrent bilateral lower extremity cellulitis | 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 Kern at [facility] upon discharge Continue daptomycin 750 mg IV q24h (adjust as needed for renal function) and ertapenem Bactrim PPx remains on hold Pending hospital course, may be able to resume Bactrim and d/c daptomycin upon discharge Daily wound care Wound care nurse consult appreciated #Spells/Drowsiness | untreated LEONARD Patient continues to "pass out" in the middle of conversations Son/daughter often mention this occurs more frequently when he is feeling sick or becoming septic Previous DDx included obesity hypoventilation syndrome, narcolepsy, or severe daytime hypersomnia from untreated LENOARD Patient does report he has been using his BiPAP at night following a recent admission, and that it has been helping Continue BiPAP HS #Chronic heart failure with improved EF | right-sided heart failure Last echocardiogram on 09/03/2024 revealed LVEF at 50 to 55%; right ventricular dilation He has chronic peripheral edema and possible hepatic congestion Continue strict I&O monitoring, daily weights, low-sodium diet Continue Bumex, metoprolol #PAF | H/o Flutter-currently remains in sinus rhythm He has had significant issues with rapid a flutter and fibrillation in the past which was controlled with amiodarone Continue amiodarone, xarelto Monitor on telemetry #Iron deficiency anemia Chronic (baseline range 11-13); normocytic; Hgb 11.8 on arrival No signs of active bleeding Continue iron supplements Follow CBC #Depression/anxiety Continue with duloxetine, mirtazapine #GERD Continue PPI #Myoclonic jerking Continue Keppra 500 mg BID #Idiopathic neuropathy Continue gabapentin 600mg TID Dose reduce gabapentin if rising creatinine level or if leads to exacerbation of myoclonus Disposition: Continued stay on MedSurg telemetry VTE PPx: Xarelto Updated family at bedside (Diana and Jaiden) on 12/24 regarding labs, imaging, and continued stay in the hospital. Admission and Anticipated Discharge Date Admission Date: December 23, 2024 Supervising Physician Co-Signing Physician Notes Attending Attestation: Chart reviewed, care plan d/w ISREAL Chowdhury. I agree w/ the lubin components of his documentation. Appreciate orthopedics assistance. Dry tap on right knee. Septic knee unlikely given no significant joint fluid present. Overlying cellulitis? Cont IV abx. Await blood/urine cx's. Shaheen Vance MD Subjective Mr. Palacio reports he is doing well this morning. He is sitting upright in bed in no acute distress, surrounded by family. He had difficulty getting to sleep the night prior, but does report he has difficulty sleeping in the hospital. Most of his pain is coming from his right lateral foot wound, which will occasionally lead to shooting pain up his right leg. He does report that his right knee feels sore this morning, and that his swelling has been getting worse over the past week. This was first noticed by patient's daughter when she took him in for a [facility] sample [facility] the [facility] on Wednesday 12/20. At that time, the right knee was red, hot to touch, and beginning to swell. Patient has had 2 prior revisions of his right knee prosthesis (in February 2024 and July 2024), both done by Dr. Kern at [facility]. He reports that the knee is only painful when he stretches and bends it. Patient expresses a strong desire to return to [facility] once medically cleared, as he does report his burning with urination has improved significantly since yesterday after being on the IV antibiotics. Only other complaint, is that he developed a dry cough approximat jonh a week ago. No sick contacts to his knowledge. ROS: Patient endorses mild headache, sore throat, dry cough, burning with urination (improving), right knee soreness/swelling, and bilateral leg pain (R>L). Patient denies fever, chills, night sweats, chest pain, SOB, pleuritic CP, abdominal pain, N/V/D, or drainage from the right knee. Review of Systems Review of Systems: See HPI above Physical Exam Physical Exam: General: no acute distress; pleasant affect; patient appears much more awake than yesterday; family at bedside; non-toxic appearing; well-nourished; cooperative; SpO2 91% on RA HEENT: normocephalic, atraumatic; no scleral icterus; PERRLA; vision and hearing grossly intact Neck: supple; no lymphadenopathy; trachea midline Skin: warm, dry without signs of tenting; no cyanosis; no rashes, bruising, lesions, or erythema noted CV: chest wall NTP; RRR; S1/S2 normal; no murmurs/rubs/gallops; pulses intact and symmetric at radial, DP, and PT Lungs: no acute respiratory distress; symmetrical chest wall expansion; clear breath sounds across all lung hathaway w/o adventitious sounds; no wheezing ABD: Soft, NTP; BS present; no rebound/guarding; no distention RLE: Right lower extremity is edematous, erythematous with +1 pitting edema; right knee is is improved from the day prior (less swollen/erythematous than at time of admission); +2 pitting edema on the dorsal aspect of the feet bilateral MSK: no tics or fasciculations; lower extremities are NTP on 12/24 (assessed at the dorsal aspects of the foot bilaterally) Neuro: A&Ox3; normal mood and affect; fluent speech; no focal deficits a ppreciated; patient reports that sensation is intact and symmetric in lower extremity bilaterally assessed via light touch Results & Data Results & Data Vital Signs (Past 12 Hours) Vital Signs Temp Pulse Pulse Resp BP Pulse Ox O2 Del Method 12/24/24 11:47 36.8 C 77 18 135/81 91 Room Air 12/24/24 11:35 Room Air 12/24/24 07:33 36.8 C 77 18 106/68 91 Room Air 12/24/24 07:19 70 16 91 Room Air 12/24/24 05:42 76 12/24/24 01:43 65 12 99 PG Care Time/CCT Total # of Minutes Spent Total Time Spent with Patient: Total time spent is greater than 50% in coordination of care (as documented) at patient's floor/unit and/or counseling patient: [place] [address] SUB INP/OBS CARE 3/50MIN Patient Type Established Medical Decision Making High Complexity Diagnoses UTI (urinary tract infection) N39.0 Swelling of right knee M25.461 History of MRSA infection Z86.14 Recurrent cellulitis of lower extremity L03.119 Chronic venous stasis I87.8
[2024-12-24] MEDS: RIVAROXABAN 20 MG TAB PO ONE (13:08)
[2024-12-24] MEDS: DAPTOmycin 600 MG in SYRINGE 0 ML IV SCH (17:31)
[2024-12-24] MEDS: ACETAMINOPHEN 325 MG TAB PO PRN (20:24)
--- NOTE | 2024-12-25 08:15 | Hospitalist Progress Note ---
Date of Service December 25, 2024 Assessment & Plan (1) UTI (urinary tract infection): (2) Swelling of right knee: (3) History of MRSA infection: (4) Recurrent cellulitis of lower extremity: (5) Chronic venous stasis: Plan This patient is an 79-year-old male who presented on 12/23 for intermittent burning with urination. History of MDR infections (both UTI & skin/soft- tissue). [facility]20 that was positive for bacteria with significant resistance. This urine culture is not readily available at time of admission. Also with suspected worsening right knee infection. #Suspected MDR UTI VSS on 12/23 and on 12/24; patient does report he had fevers at home prior to arrival UA infected with +4 bacteria Blood cultures drawn on 12/23; prelim no growth to date Most recent urine cultures on 07/22/24 and 08/12/24 grew Proteus mirabilis ESBL with significant resistance Preliminary UCx on 12/25 growing Proteus mirabilis ESBL sensitive to ertapenem/meropenem Contact isolation precautions Continue ertapenem 1000mg IV q24h (started on 12/24) Per review of prior UCx and wound cultures, no history of pseudomonas Patient expresses a strong desire to return home when possible Given VSS remain stable, no leukocytosis, and downtrending CRP, spoke with case management regarding possibility of discharge on MTU on 12/24 Unfortunately, the patient will require insurance authorization through the [facility] to make sure he does not get a bill, so the earliest we would be able to set up MTU would be on Tuesday 12/26 Potential d/c on MTU on Tuesday 12/26 with daily ertapenem injection (which patient has done in the past) if authorization approved by the [facility] #R knee swelling | foot wounds | recurrent bilateral lower extremity cellulitis | 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 Manjit Kern at [facility] in 2022 and subsequent revision on 02/23/2024 for a periprosthetic joint infection On Bactrim PPx BID for chronic suppression therapy Patient endorses worsening right leg pain and right knee swelling x 2 to 3 days [employer] Right knee x-ray on arrival revealed moderate soft tissue swelling and small joint fluid, appears erythematous and warm to the touch CRP trend 15->12 Orthopedics consult appreciated for arthrocentesis Dry tap on 12/24 Resume Xarelto Given improvement in swelling/redness, do not feel that he requires immediate transfer to [facility] for washout/revision Additional CT right knee ordered on 12/25 out of an abundance of caution (as patient reports his R knee pain remains the same as it was upon arrival) CT revealed large joint effusion Touched base with orthopedics, and will plan to perform a second arthrocentesis on 12/26 Per ortho, no need to hold Xarelto; will place yoko wrap for compression following tap Recommend close OP f/u with Dr. Kern at [facility] upon discharge Daptomycin 600 mg IV q24h Daily wound care Wound care nurse consult appreciated Waffle boots #Spells/Drowsiness | untreated LEONARD Patient continues to "pass out" in the middle of conversations Son/daughter often mention this occurs more frequently when he is feeling sick or becoming septic Previous DDx included obesity hypoventilation syndrome, narcolepsy, or severe daytime hypersomnia from untreated LEONARD Patient does report he has been using his BiPAP at night following a recent admission, and that it has been helping Continue BiPAP HS #Chronic heart failure with improved EF | right-sided heart failure Last echocardiogram on 09/03/2024 revealed LVEF at 50 to 55%; right ventricular dilation He has chronic peripheral edema and possible hepatic congestion Continue strict I&O monitoring, daily weights, low-sodium diet Continue Bumex, metoprolol #PAF | H/o Flutter-currently remains in sinus rhythm He has had significant issues with rapid a flutter and fibrillation in the past which was controlled with amiodarone Continue amiodarone, xarelto Monitor on telemetry #Iron deficiency anemia Chronic (baseline range 11-13); normocytic; stable No signs of active bleeding Continue iron supplements and anticoagulation Follow CBC #Depression/anxiety Continue with duloxetine, mirtazapine #GERD Continue PPI #Glaucoma Patient normally on Rocklatan HS (non-formulary) Latanoprost HS while inpatient #Myoclonic jerking Continue Keppra 500 mg BID #Idiopathic neuropathy Continue gabapentin 600mg TID Dose reduce gabapentin if rising creatinine level or if leads to exacerbation of myoclonus Disposition: Continued stay on MedSurg telemetry VTE PPx: Xarelto Updated family at bedside (Diana margarita Hwang) on 12/24 regarding labs, imaging, and continued stay in the hospital. Admission and Anticipated Discharge Date Admission Date: December 23, 2024 Supervising Physician Co-Signing Physician Notes Attending Attestation - Chart reviewed, care plan d/w ISREAL Chowdhury. I agree w/ the lubin components of his documentation. In light of ongoing pain/swelling of right knee we obtained CT of the right knee today. This confirmed the presence of a large knee effusion. Dr Ramos from [facility] was notified of the CT findings and will perform arthrocentesis tomorrow. Is on IV abx for UTI which will cover the knee as well. Shaheen Vance MD Subjective Mr. Palacio is resting peacefully in bed this morning. He reports the pain in his right leg is about the same as it was yesterday (5 out of 10). He reports his right knee feels the same in terms of swelling and pain. He is also having pain in both of his shoulders this morning, but believes it is due to the bed he is sleeping and patient reports he slept okay last night. Eating and drinking well this morning. He reports he did have an accident in bed today, and is currently wet in the blankets. Increased urinary frequency with the Bumex, but does report that his burning with urination has complete resolved at this time ROS: Patient endorses dry cough, right knee soreness/swelling, and bilateral leg pain (R>L). Patient denies fever, chills, night sweats, headache, chest pain, SOB, pleuritic CP, abdominal pain, N/V/D, and burning with urination (resolved). Review of Systems Review of Systems: See HPI above Physical Exam Physical Exam: General: no acute distress; pleasant affect; patient appears much more awake than prior encounters; non-toxic appearing; well-nourished; cooperative; SpO2 90% on RA HEENT: normocephalic, atraumatic; no scleral icterus; PERRLA; vision and hearing grossly intact Neck: supple; no lymphadenopathy; trachea midline Skin: warm, dry without signs of tenting; no cyanosis; no rashes, bruising, lesions, or erythema noted CV: chest wall NTP; RRR; S1/S2 normal; no murmurs/rubs/gallops; pulses intact and symmetric at radial, DP, and PT Lungs: no acute respiratory distress; symmetrical chest wall expansion; clear breath sounds across all lung hathaway w/o adventitious sounds; no wheezing ABD: Soft, NTP; BS present; no rebound/guarding; no distention RLE: Right lower extremity is edematous, erythematous with +1 pitting edema; right knee is is improved from the day prior (less swollen/erythematous than at time of admission); +2 pitting edema on the dorsal aspect of the feet bilateral MSK: no tics or fasciculations; lower extremities are NTP on 12/24 (assessed at the dorsal aspects of the foot bilaterally); patient demonstrates ability to raise arms above his head and pull himself up in bed prior to having his cheeks changed; sheets changed at bedside with nursing staff Neuro: A&Ox3; normal mood and affect; fluent speech; no focal deficits appreciated; patient reports that sensation is intact and symmetric in lower extremity bilaterally assessed via light touch Results & Data Results & Data Vital Signs (Past 12 Hours) Vital Signs Temp Pulse Pulse Resp BP Pulse Ox Pulse Ox 12/25/24 07:52 36.6 C 70 20 138/82 90 12/25/24 07:21 79 16 90 12/25/24 05:49 75 12/25/24 03:36 37 C 77 18 118/67 93 12/25/24 03:22 70 12 94 12/25/24 00:07 92 12/24/24 23:37 36.6 C 80 18 102/64 92 12/24/24 22:34 79 14 94 12/24/24 21:51 78 12/24/24 21:38 O2 Del Method O2 Del Method 12/25/24 07:52 Room Air 12/25/24 07:21 Room Air 12/25/24 05:49 12/25/24 03:36 CPAP 12/25/24 03:22 12/25/24 00:07 Room Air 12/24/24 23:37 Room Air, BiPAP 12/24/24 22:34 12/24/24 21:51 12/24/24 21:38 Room Air, BiPAP PG Care Time/CCT Total # of Minutes Spent Total Time Spent with Patient: Total time spent is greater than 50% in coordination of care (as documented) at patient's floor/unit and/or counseling patient: [place] [address] SUB INP/OBS CARE 50MIN Patient Type Established Medical Decision Making High Complexity Diagnoses UTI (urinary tract infection) N39.0 Swelling of right knee M25.461 History of MRSA infection Z86.14 Recurrent cellulitis of lower extremity L03.119 Chronic venous stasis I87.8
[2024-12-25 08:39] LABS: Hematocrit (blood only) 37.6 % (42.0-52.0); Hemoglobin 11.9 g/dl (14.0-18.0); Immature Granulocytes # (auto) 0.03 K/uL (0.01-0.20); Immature Granulocytes % (auto) 0.3 %; Mean Corpuscular Hemoglobin 30.4 pg (25.0-34.0); Mean Corpuscular Volume 95.9 fL (80.0-100.0); Platelet Count 263 K/uL (130-400); RDW Standard Deviation 64.2 fL (36.4-46.3); Red Blood Count 3.92 M/uL (4.70-6.10); White Blood Count 9.06 K/ul (4.8-10.8)
[2024-12-25 08:54] LABS: Anion Gap 4.0 (3-11); Blood Urea Nitrogen 25.0 mg/dl (6-23); Calcium 8.6 mg/dl (8.6-10.3); Carbon Dioxide 31.0 mmol/L (21-32); Chloride 102.0 mmol/L (98-107); Creatinine Clr Calc Pharmacy 71.3 ml/min; Glucose 95.0 mg/dl (70-99(Fasting)); Potassium 4.1 mmol/L (3.5-5.1); Sodium 137.0 mmol/L (136-145)
--- NOTE | 2024-12-25 12:24 | Orthopedic Progress Note ---
Date of Service December 25, 2024 Assessment & Plan (1) Swelling of right knee: Plan: IMPRESSION: Chronic infected R TKA. PLAN: Wheelchair-bound x 2 years Continue Xarelto for DVT prophylaxis and his atrial fibrillation Ice with easy wrap Place pillow under his right knee Pain control with p.o. medication per medicine discretion Continue his oral Bactrim and possibly IV antibiotics Continue care per Hospitalist service. Will continue to follow while in hospital, will plan for follow-up with Dr. Kern in [place] after d/c. Admission and Anticipated Discharge Date Admission Date: December 23, 2024 Subjective RLE is feeling better Physical Exam Physical Exam: Right knee: Patient has moderate edema and erythema with some warmth over the entire knee. He also has venous stasis dermatitis extending from just the knee to the ankle. Decreased edema RLE and dorsal foot. Dry skin. Peripheral vascular changes RLE. BCR < 2 sec. Sensation to light touch unchanged. He is able to actively dorsi and plantarflex foot. Knee ROM is limited due to flexion contracture where patient is about 25 deg extension - 90 deg. + effusion. He is neurovascularly intact. Results & Data Vital Signs (Past 12 Hours) Vital Signs Temp Pulse Pulse Resp BP Pulse Ox O2 Del Method 12/25/24 12:10 Room Air 12/25/24 07:52 36.6 C 70 20 138/82 90 Room Air 12/25/24 07:21 79 16 90 Room Air 12/25/24 05:49 75 12/25/24 03:36 37 C 77 18 118/67 93 CPAP 12/25/24 03:22 70 12 94 Laboratory Results Laboratory Results WBC 9.06 K/ul (4.8-10.8) 12/25/24 08:14 RBC 3.92 M/uL (4.70-6.10) L 12/25/24 08:14 Hgb 11.9 g/dl (14.0-18.0) L 12/25/24 08:14 Hct 37.6 % (42.0-52.0) L 12/25/24 08:14 MCV 95.9 fL (80.0-100.0) 12/25/24 08:14 MCH 30.4 pg (25.0-34.0) 12/25/24 08:14 MCHC 31.6 g/dL (32.0-36.0) L 12/25/24 08:14 RDW Std Deviation 64.2 fL (36.4-46.3) H 12/25/24 08:14 RDW Coeff of Sammie 18.2 % (11.5-14.5) H 12/25/24 08:14 Plt Count 263 K/uL (130-400) 12/25/24 08:14 MPV 9.1 fL (9.4-12.4) L 12/25/24 08:14 Immature Gran % (Auto) 0.3 % 12/25/24 08:14 Neut % (Auto) 77.9 % 12/25/24 08:14 Lymph % (Auto) 9.8 % 12/25/24 08:14 [place] % (Auto) 8.8 % 12/25/24 08:14 Eos % (Auto) 2.8 % 12/25/24 08:14 Baso % (Auto) 0.4 % 12/25/24 08:14 Neut # (Auto) 7.05 K/uL (1.40-6.50) H 12/25/24 08:14 Lymph # (Auto) 0.89 K/uL (1.20-3.40) L 12/25/24 08:14 [place] # (Auto) 0.80 K/uL (0.11-0.59) H 12/25/24 08:14 Eos # (Auto) 0.25 K/uL (0.00-0.50) 12/25/24 08:14 Baso # (Auto) 0.04 K/uL (0.00-0.20) 12/25/24 08:14 Immature Gran # (Auto) 0.03 K/uL (0.01-0.20) 12/25/24 08:14 ESR 77 mm/hr (0-20) H 12/23/24 15:41 Sodium 137 mmol/L (136-145) 12/25/24 08:14 Potassium 4.1 mmol/L (3.5-5.1) 12/25/24 08:14 Chloride 102 mmol/L (98-107) 12/25/24 08:14 Carbon Dioxide 31 mmol/L (21-32) 12/25/24 08:14 Anion Gap 4 (3-11) 12/25/24 08:14 BUN 25 mg/dl (6-23) H 12/25/24 08:14 Creatinine 1.08 mg/dl (0.6-1.4) 12/25/24 08:14 Est Cr Clr Drug Dosing 71.3 ml/min 12/25/24 08:14 eGFR 68.94 12/25/24 08:14 BUN/Creatinine Ratio 23.1 (10-20) H 12/25/24 08:14 Glucose 95 mg/dl (70-99(Fasting)) 12/25/24 08:14 Lactate 1.3 mmol/L (0.4-2.0) 12/23/24 16:40 Calcium 8.6 mg/dl (8.6-10.3) 12/25/24 08:14 Total Bilirubin 0.5 mg/dl (0.2-1.0) 12/24/24 06:55 AST 33 U/L (13-39) 12/24/24 06:55 ALT 29 U/L (7-52) 12/24/24 06:55 Alkaline Phosphatase 67 U/L (34-104) 12/24/24 06:55 C-Reactive Protein 12.97 mg/dl (0-0.5) H 12/24/24 06:55 Total Protein 6.0 gm/dl (6.0-8.3) 12/24/24 06:55 Albumin 2.9 gm/dl (3.4-5.0) L 12/24/24 06:55 Globulin 3.1 gm/dl (2.5-4.0) 12/24/24 06:55 Albumin/Globulin Ratio 0.9 (0.9-2) 12/24/24 06:55 Procalcitonin 0.10 ng/ml (0-0.5) 12/23/24 15:16 Urine Color Dark Yellow 12/23/24 17:25 Urine Appearance Turbid (Clear) A 12/23/24 17:25 Urine pH 8.0 (4.5-7.5) H 12/23/24 17:25 Ur Specific Ord 1.022 (1.000-1.030) 12/23/24 17:25 Urine Protein 2+ (Negative) H 12/23/24 17:25 Urine Glucose (UA) Negative (Negative) 12/23/24 17:25 Urine Ketones Negative (Negative) 12/23/24 17:25 Urine Blood 2+ (Negative) H 12/23/24 17:25 Urine Nitrite Positive (Negative) A 12/23/24 17:25 Urine Bilirubin Negative (Negative) 12/23/24 17:25 Urine Urobilinogen Negative (Negative) 12/23/24 17:25 Ur Leukocyte Esterase 3+ (Negative) H 12/23/24 17:25 Urine WBC (Auto) >50 /hpf (0-5) H 12/23/24 17:25 Urine RBC (Auto) >20 /hpf (0-2) H 12/23/24 17:25 U Hyaline Cast (Auto) 0-2 /lpf (0-2) 12/23/24 17:25 U Epithel Cells (Auto) 0-2 /hpf (0-2) 12/23/24 17:25 Urine Bacteria (Auto) 4+ (None Seen) H 12/23/24 17:25 Urine Comment 12/23/24 17:25 Impressions Knee X-Ray 12/23/24 16:21 INDICATION: Pain TECHNIQUE: 2 views of the right knee were obtained. COMPARISON: None FINDINGS: No displaced acute osseous process is identified. Redemonstrated right knee arthroplasty with cement augmentation surrounding the tibial stem with components in anatomic alignment. Moderate soft tissue swelling in the anterior aspect of the knee that appears similar to the prior radiograph. Small joint fluid. IMPRESSION: No displaced acute osseous process is identified. Redemonstrated right knee arthroplasty with components in anatomic alignment. Moderate soft tissue swelling the anterior aspect of the knee that is similar to the prior radiograph. Small joint fluid Electronically signed by Gee Law 12-23-2024 4:42 PM
--- NOTE | 2024-12-25 14:03 | CT Scan Report ---
REASON FOR EXAM: The patient is presenting with a history of right knee pain with swelling around the prosthesis. Previous exam: Knee x-ray 03/29/2024 EXAM: CT scan right knee without contrast Findings: The metallic components from the femoral and tibial total knee arthroplasty are again noted with the essentially stable alignment when compared to previous plain film exam. There is a large knee joint effusion extending to the suprapatellar bursa. Additional superficial and subcutaneous diffuse soft tissue swelling is present. Visualized bony structures show no focal lytic or blastic destructive process or active periosteal reaction. IMPRESSION: 1. Status post right total knee arthroplasty. 2. No acute bony process seen at this time. 3. Large joint effusion with surrounding no superficial soft tissue swelling. Aspiration of the joint fluid would be useful for further evaluation and to rule out active infection. Electronically signed by Brian Bell 12-25-2024 2:03 PM
[2024-12-25] MEDS: DAPTOmycin 600 MG in SYRINGE 0 ML IV ONE (17:10)
[2024-12-25] MEDS: LATANOPROST 0.005% OP SOLN 2.5 ML BTL OP SCH (20:09)
[2024-12-25] MEDS: DICLOFENAC SOD 1% GEL 100 GM TUBE EXT PRN (21:28)
[2024-12-26] MEDS ORDERED: SULFAMETHOXAZOLE/TRIMETHOPRIM DS 800/160MG TAB PO SCH (09:00)
[2024-12-26 09:50] LABS: Color Synovial Fluid Amber; Mononuclear WBC Synovial 7.3 %; Polynuclear WBC Synovial 92.7 %; RBC Synovial Fluid Auto 17000 /uL; Source Synovial Fluid Right Knee; WBC Synovial Fluid Auto 45255 /ul (0-200)
--- NOTE | 2024-12-26 10:20 | Orthopedic Progress Note ---
Date of Service December 26, 2024 Assessment & Plan (1) Swelling of right knee: Plan: IMPRESSION: Chronic infected R TKA. PLAN: Aspirated fluid was sent for Gram stain with culture and sensitivity, aerobic and anaerobic cultures, crystal analysis and a cell count. Will continue to follow results Wheelchair-bound x 2 years Continue Xarelto for DVT prophylaxis and his atrial fibrillation Ice with easy wrap Place pillow under his right knee Pain control with p.o. medication per medicine discretion Continue his oral Bactrim and possibly IV antibiotics Continue care per Hospitalist service. Will continue to follow while in hospital, will plan for follow-up with Dr. Kern in [place] after d/c. Admission and Anticipated Discharge Date Admission Date: December 23, 2024 Supervising Physician Co-Signing Physician Notes I, Dr. Ramos, saw and examined the patient with my PA. I discussed the management with my PA. I reviewed my PAs note and agree with the documented findings and attest to completing the substantive portion of medical decision making and plan of care I developed.I preformed the aspiration as described above. Subjective This 79-year-old male seen today again for follow-up of right knee pain associated with possible infection of his right knee joint status post total knee arthroplasty with Dr. Kern in [place]. Patient states he is doing fairly well today. He denies fever, chills, sweats, nausea, vomiting, diarrhea, chest pain or shortness of breath. He states that his knee does continue to hurt and is still edematous. Review of Systems Review of Systems: All systems reviewed & are unremarkable except as noted in Subjective Physical Exam Physical Exam: Right knee: Patient has moderate edema and erythema with some warmth over the entire knee. He also has venous stasis dermatitis extending from just the knee to the ankle. There is also edema to admitted dorsal foot. Peripheral pulses are 1+. Patient is able to detect light sensation to touch over the pads of all digits. He is able to actively dorsi and plantarflex foot. Knee range of motio n is limited due to flexion contracture where patient is about 25 degrees extension and flexion is limited to 90 degrees. There is a palpable effusion. Patient experiences medial and lateral joint tenderness when he is palpating the proximal position. He is neurovascularly intact. Procedure: Patient was lying supine on the bed with his knee slightly flexed. The right knee was marked with a skin marker identifying the appropriate extremity. Patient verbalizes after time-out the we will proceed with a right knee aspiration. After cleansing the enid site with a Betadine swab, an alcohol swab, 10 mL of 1% lidocaine solution was injected for anesthesia. Site was then cleansed a Betadine swab, and Alcohol wipe. An 18-gauge spinal needle connected to a 30 cc syringe was passed through the right superolateral pouch. 3 mL of yellow cloudy appearing fluid was aspirated. Upon removal of the needle there are some slight bleeding that was easily controlled with pressure. Site was again cleansed with 4 x 4 and covered with a Band-Aid And a 6 inch Amish bandage. JOSE Levy served as witness to Dr. Ramos who preformed the procedure. Results & Data Vital Signs (Past 12 Hours) Vital Signs Temp Pulse Pulse Resp BP Pulse Ox Pulse Ox 12/26/24 08:37 36.8 C 70 20 113/75 94 12/26/24 07:56 71 12/26/24 07:12 71 16 92 12/26/24 04:17 36.6 C 64 18 114/69 94 12/26/24 02:16 74 17 99 12/26/24 00:00 95 12/25/24 23:20 36.6 C 67 18 117/69 95 O2 Del Method 12/26/24 08:37 CPAP 12/26/24 07:56 12/26/24 07:12 Room Air 12/26/24 04:17 Room Air 12/26/24 02:16 12/26/24 00:00 12/25/24 23:20 Room Air Laboratory Results Spec: [id number] Collected: 12/26/24-899 Received: 12/26/24-[address]: Blake Levy PA-C Copy To: Carolyn García MD Source: Knee,Right OV Order: Ordered: Aer/Crissy Cult/Sm Procedure Result Verified Site Gram Stain Final 12/26/24-1223 Gram Stain Result Many Polys No Organisms Seen Aero/Crissy Cult PENDING Diagnostic Findings Laboratory Results WBC 9.06 K/ul (4.8-10.8) 12/25/24 08:14 RBC 3.92 M/uL (4.70-6.10) L 12/25/24 08:14 Hgb 11.9 g/dl (14.0-18.0) L 12/25/24 08:14 Hct 37.6 % (42.0-52.0) L 12/25/24 08:14 MCV 95.9 fL (80.0-100.0) 12/25/24 08:14 MCH 30.4 pg (25.0-34.0) 12/25/24 08:14 MCHC 31.6 g/dL (32.0-36.0) L 12/25/24 08:14 RDW Std Deviation 64.2 fL (36.4-46.3) H 12/25/24 08:14 RDW Coeff of Sammie 18.2 % (11.5-14.5) H 12/25/24 08:14 Plt Count 263 K/uL (130-400) 12/25/24 08:14 MPV 9.1 fL (9.4-12.4) L 12/25/24 08:14 Immature Gran % (Auto) 0.3 % 12/25/24 08:14 Neut % (Auto) 77.9 % 12/25/24 08:14 Lymph % (Auto) 9.8 % 12/25/24 08:14 [place] % (Auto) 8.8 % 12/25/24 08:14 Eos % (Auto) 2.8 % 12/25/24 08:14 Baso % (Auto) 0.4 % 12/25/24 08:14 Neut # (Auto) 7.05 K/uL (1.40-6.50) H 12/25/24 08:14 Lymph # (Auto) 0.89 K/uL (1.20-3.40) L 12/25/24 08:14 [place] # (Auto) 0.80 K/uL (0.11-0.59) H 12/25/24 08:14 Eos # (Auto) 0.25 K/uL (0.00-0.50) 12/25/24 08:14 Baso # (Auto) 0.04 K/uL (0.00-0.20) 12/25/24 08:14 Immature Gran # (Auto) 0.03 K/uL (0.01-0.20) 12/25/24 08:14 ESR 77 mm/hr (0-20) H 12/23/24 15:41 Sodium 137 mmol/L (136-145) 12/25/24 08:14 Potassium 4.1 mmol/L (3.5-5.1) 12/25/24 08:14 Chloride 102 mmol/L (98-107) 12/25/24 08:14 Carbon Dioxide 31 mmol/L (21-32) 12/25/24 08:14 Anion Gap 4 (3-11) 12/25/24 08:14 BUN 25 mg/dl (6-23) H 12/25/24 08:14 Creatinine 1.08 mg/dl (0.6-1.4) 12/25/24 08:14 Est Cr Clr Drug Dosing 71.3 ml/min 12/25/24 08:14 eGFR 68.94 12/25/24 08:14 BUN/Creatinine Ratio 23.1 (10-20) H 12/25/24 08:14 Glucose 95 mg/dl (70-99(Fasting)) 12/25/24 08:14 Lactate 1.3 mmol/L (0.4-2.0) 12/23/24 16:40 Calcium 8.6 mg/dl (8.6-10.3) 12/25/24 08:14 Total Bilirubin 0.5 mg/dl (0.2-1.0) 12/24/24 06:55 AST 33 U/L (13-39) 12/24/24 06:55 ALT 29 U/L (7-52) 12/24/24 06:55 Alkaline Phosphatase 67 U/L (34-104) 12/24/24 06:55 C-Reactive Protein 12.97 mg/dl (0-0.5) H 12/24/24 06:55 Total Protein 6.0 gm/dl (6.0-8.3) 12/24/24 06:55 Albumin 2.9 gm/dl (3.4-5.0) L 12/24/24 06:55 Globulin 3.1 gm/dl (2.5-4.0) 12/24/24 06:55 Albumin/Globulin Ratio 0.9 (0.9-2) 12/24/24 06:55 Procalcitonin 0.10 ng/ml (0-0.5) 12/23/24 15:16 Urine Color Dark Yellow 12/23/24 17:25 Urine Appearance Turbid (Clear) A 12/23/24 17:25 Urine pH 8.0 (4.5-7.5) H 12/23/24 17:25 Ur Specific [place] 1.022 (1.000-1.030) 12/23/24 17:25 Urine Protein 2+ (Negative) H 12/23/24 17:25 Urine Glucose (UA) Negative (Negative) 12/23/24 17: Urine Ketones Negative (Negative) 12/23/24 17: Urine Blood 2+ (Negative) H 12/23/24 17:25 Urine Nitrite Positive (Negative) A 12/23/24 17: Urine Bilirubin Negative (Negative) 12/23/24 17: Urine Urobilinogen Negative (Negative) 12/23/24 17:25 Ur Leukocyte Esterase 3+ (Negative) H 12/23/24 17:25 Urine WBC (Auto) >50 /hpf (0-5) H 12/23/24 17:25 Urine RBC (Auto) >20 /hpf (0-2) H 12/23/24 17:25 U Hyaline Cast (Auto) 0-2 /lpf (0-2) 12/23/24 17:25 U Epithel Cells (Auto) 0-2 /hpf (0-2) 12/23/24 17:25 Urine Bacteria (Auto) 4+ (None Seen) H 12/23/24 17:25 Urine Comment 12/23/24 17:25 Fluid Comment 12/26/24 09:00 Synovial Source Right Knee 12/26/24 09:00 Synovial Color Ilana 12/26/24 09:00 Synovial Appearance Cloudy 12/26/24 09:00 Synovial WBC (Auto) 09594 /ul (0-200) H 12/26/24 09:00 Synovial RBC (Auto) 62605 /uL 12/26/24 09:00 Synovial Polynuclear % 92.7 % 12/26/24 09:00 Synovial Mononuclear % 7.3 % 12/26/24 09:00 Impressions Knee X-Ray 12/23/24 16:21 INDICATION: Pain TECHNIQUE: 2 views of the right knee were obtained. COMPARISON: None FINDINGS: No displaced acute osseous process is identified. Redemonstrated right knee arthroplasty with cement augmentation surrounding the tibial stem with components in anatomic alignment. Moderate soft tissue swelling in the anterior aspect of the knee that appears similar to the prior radiograph. Small joint fluid. IMPRESSION: No displaced acute osseous process is identified. Redemonstrated right knee arthroplasty with components in anatomic alignment. Moderate soft tissue swelling the anterior aspect of the knee that is similar to the prior radiograph. Small joint fluid Electronically signed by Gee Law 12-23-2024 4:[address] 12/25/24 11:09 REASON FOR EXAM: The patient is presenting with a history of right knee pain with swelling around the prosthesis. Previous exam: Knee x-ray 03/29/2024 EXAM: CT scan right knee without contrast Findings: The metallic components from the femoral and tibial total knee arthroplasty are again noted with the essentially stable alignment when compared to previous plain film exam. There is a large knee joint effusion extending to the suprapatellar bursa. Additional superficial and subcutaneous diffuse soft tissue swelling is present. Visualized bony structures show no focal lytic or blastic destructive process or active periosteal reaction. IMPRESSION: 1. Status post right total knee arthroplasty. 2. No acute bony process seen at this time. 3. Large joint effusion with surrounding no superficial soft tissue swelling. Aspiration of the joint fluid would be useful for further evaluation and to rule out active infection. Electronically signed by Brian Bell 12-25-2024 2:03 PM
--- NOTE | 2024-12-26 13:49 | Hospitalist Progress Note ---
Date of Service December 26, 2024 Assessment & Plan (1) UTI (urinary tract infection): (2) Swelling of right knee: (3) History of MRSA infection: (4) Recurrent cellulitis of lower extremity: (5) Chronic venous stasis: Plan This patient is an 79-year-old male who presented on 12/23 for intermittent burning with urination. History of MDR infections (both UTI & skin/soft- tissue). Sent in by the [facility] for urine culture taken on 12/20 that was positive for bacteria with significant resistance. This urine culture is not readily available at time of admission. Also with suspected worsening right knee infection. Culture history: 12/2024: Proteus ESBL of the foot 12/23/2024: Proteus ESBL of the urine 11/25/2024: Foot Proteus ESBL 08/12/2024: Proteus ESBL urine 07/14/2024: Right foot. MRSA, VRE both Dapto sensitive. MRSA was Bactrim sensitive 03/2024: Right foot, VRE 05/2024: MRSA Staph aureus, right foot #Suspected MDR UTI VSS on 12/23 and on 12/24; patient does report he had fevers at home prior to arrival UA overtly infected appearing. UCx positive for ESBL Proteus. Blood cultures drawn on 12/23; no growth to date Most recent urine cultures on 07/22/24 and 08/12/24 grew Proteus mirabilis ESBL with significant resistance Contact isolation precautions Continue ertapenem 1000mg IV q24h (started on 12/24). Anticipate 7-day course of treatment, last day 12/31/2024 Per review of prior UCx and wound cultures, no history of pseudomonas Patient expresses a strong desire to return home when possible Per [facility], would need home health infusions versus SNF at [facility] when medically appropriate for discharge #R knee swelling | foot wounds | recurrent bilateral lower extremity cellulitis | h/o right knee PJI and MRSA bacteremia Did not present for evaluation of this, but on admission evaluation was noted to have right knee erythema and swelling and endorsed 2 to 3 days 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 No missed doses of his Bactrim prophylaxis History of right TKA with Dr. 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 CRP elevated. Clinically progressing with adjunct daptomycin and on ertapenem for UTI as noted Orthopedics consulted for arthrocentesis, dry tap 12/24. Repeat tap 12/26 with marked elevation in white blood cell count suggestive of active infection. No gout/pseudogout crystals are seen CTright knee: Large joint effusion Continue daptomycin. Follow cultures Marked elevation in leukocytosis and clinical findings consistent with knee infection, continuing adjunct IV antibiotic therapy with daptomycin until fluid cultures/speciation/sensitivities are available Daily wound care - His main operative team at [facility] was notified via call center. Dr. Kern was immediately available by phone at time of call however is aware of patient and did communicate through transfer center regarding his case. As long as he is not septic/toxic, is clinically progressing agree with current treatment and will plan for expedited outpatient follow-up. Will await antibiotic sensitivities and speciations, suspect outpatient treatment plan will be ertapenem until 12/31 for ESBL UTI treatment, ongoing daptomycin with further recommendations based on surgical evaluation and [facility] follow-up, weekly CBC/BMP/CRP as outpatient while on IV ABX. Hold Bactrim while on daptomycin. #Spells/Drowsiness | untreated LEONARD Patient has intermittent daytime drowsiness and falls asleep middle of conversations. This happens more frequently when sick/septic in the past DDx includes hypoventilation, narcolepsy, severe daytime hypersomnia from untreated LEONARD. Patient continues to "pass out" in the middle of conversations Has been hypercapnic in the past bicarb here 2731 recently. 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 Last echocardiogram on 09/03/2024 revealed LVEF at 50 to 55%; right ventricular dilation He has chronic peripheral edema and possible hepatic congestion Continue strict I&O monitoring, daily weights, low-sodium diet Continue Bumex, metoprolol #PAF | H/o Flutter-currently remains in sinus rhythm He has had significant issues with rapid a flutter and fibrillation in the past which was controlled with amiodarone Continue amiodarone, xarelto Monitor on telemetry #Iron deficiency anemia Chronic (baseline range 11-13); normocytic; stable No signs of active bleeding Continue iron supplements and anticoagulation Follow CBC #Depression/anxiety Continue with duloxetine, mirtazapine #GERD Continue PPI #Glaucoma Patient normally on Rocklatan HS (non-formulary) Latanoprost HS while inpatient #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 He reports his right knee swelling and pain is improving compared to when he came in, but still remains swollen. Is pending a repeat tap with Ortho today Denies fever chills or sweats Would prefer to go home if/when able While he reports he did have urinary symptoms including dysuria on admission, these have progressively improved and are currently resolved No chest pain/chest pressure/shortness of breath. No new symptoms Physical Exam Physical Exam: General: A&Ox3. NAD. Cooperative. HEENT: Atraumatic, normocephalic. Vision and hearing grossly intact Pulm: CTAB A&P. -wheezes, -rales, -rhonchi. Symmetrical chest rise. No increase in work of breathing. No respiratory distress. Cardiac: RRR, -mrg. Radial pulses intact and symmetrical. Abdominal: Nontender, nondistended, soft. BS present. Extremities: Right lower extremity: Some ichthyosis of the lower extremities present. Moderate erythema and edema overlying the right knee, diffuse mild tenderness is present worse over the medial and lateral joint lines. Ankle do rsiflexion/plantarflexion is intact with good strength, sensation to soft touch is intact over the dorsum of the foot. Cap refill is intact less than 2 seconds. Results & Data Results & Data Vital Signs (Past 12 Hours) Vital Signs Temp Pulse Pulse Resp BP Pulse Ox O2 Del Method 12/26/24 08:37 36.8 C 70 20 113/75 94 CPAP 12/26/24 08:00 Room Air, BiPAP 12/26/24 07:56 71 12/26/24 07:12 71 16 92 Room Air 12/26/24 04:17 36.6 C 64 18 114/69 94 Room Air 12/26/24 02:16 74 17 99 PG Care Time/CCT Total # of Minutes Spent Total Time Spent with Patient: Total time spent is greater than 50% in coordination of care (as documented) at patient's floor/unit and/or counseling patient: Coding Level of Care Code 37546 SUB INP/OBS CARE 3/50MIN Diagnoses UTI (urinary tract infection) N39.0 Swelling of right knee M25.461 History of MRSA infection Z86.14 Recurrent cellulitis of lower extremity L03.119 Chronic venous stasis I87.8
[2024-12-26] MEDS: DAPTOmycin 600 MG in SYRINGE 0 ML IV SCH (18:09)
[2024-12-27 06:46] LABS: Hematocrit (blood only) 34.1 % (42.0-52.0); Hemoglobin 11.0 g/dl (14.0-18.0); Immature Granulocytes # (auto) 0.03 K/uL (0.01-0.20); Immature Granulocytes % (auto) 0.3 %; Mean Corpuscular Hemoglobin 30.5 pg (25.0-34.0); Mean Corpuscular Volume 94.5 fL (80.0-100.0); Platelet Count 258 K/uL (130-400); RDW Standard Deviation 59.8 fL (36.4-46.3); Red Blood Count 3.61 M/uL (4.70-6.10); White Blood Count 8.77 K/ul (4.8-10.8)
[2024-12-27 07:16] LABS: Anion Gap 6.0 (3-11); Blood Urea Nitrogen 31.0 mg/dl (6-23); Calcium 8.3 mg/dl (8.6-10.3); Carbon Dioxide 29.0 mmol/L (21-32); Chloride 103.0 mmol/L (98-107); Creatinine Clr Calc Pharmacy 69.2 ml/min; Glucose 104.0 mg/dl (70-99(Fasting)); Potassium 4.2 mmol/L (3.5-5.1); Sodium 138.0 mmol/L (136-145)
--- NOTE | 2024-12-27 10:41 | Orthopedic Progress Note ---
Date of Service December 27, 2024 Assessment & Plan (1) Swelling of right knee: Plan: IMPRESSION: Chronic infected R TKA. PLAN: Knee aspiration fluid cultures pending. No crystals. Gram stain many polys but no organisms. CRP elevated 12.7. Trace effusion still present, has not significantly increased. Range of motion remains baseline. No systemic symptoms. Will continue to follow cultures. As long as patient can be discharged, in the process of coordinating appointment with Dr. Kern outpatient. I discussed transportation with the patient and he felt that the [facility] would be able to assist him in transportation to [place] though he was not entirely sure yet. Will coordinate with case management. Wheelchair-bound x 2 years Continue Xarelto for DVT prophylaxis and his atrial fibrillation Ice with easy wrap Place pillow under his right knee Pain control with p.o. medication per medicine discretion Continue his oral Bactrim and possibly IV antibiotics Continue care per Hospitalist service. Admission and Anticipated Discharge Date Admission Date: December 23, 2024 Supervising Physician Co-Signing Physician Notes I, Dr. Ramos, saw and examined the patient with my PA. I discussed the management with my PA. I reviewed my PAs note and agree with the documented findings and attest to completing the substantive portion of medical decision making and plan of care I developed. Subjective Patient is seen in bed this morning. He states that the right knee feels about the same. Denies any fevers, chills, new numbness or tingling. Still able to straighten and bend the knee like he normally is. He is wondering what the cultures showed from his knee aspiration. Physical Exam Constitutional: Laying in bed, resting comfortably. In no distress. Cardiovascular: Bilateral DP pulses 2+. 2+ pitting edema bilateral lower extremities below the knee. Musculoskeletal: Right lower extremity: Amish wrap overlying the knee taken down. Knee with trace effusion. Minimal warmth. Skin has a slight darkened hue however certainly no acute erythema. Range of motion 20 degrees to 100 degrees, baseline per patient. Within this range, no pain with active or passive range of motion. Strength 5/5 with ankle plantarflexion, dorsiflexion, eversion. Neurologic: Slight decreased sensation to light touch in right toes, baseline per patient. Results & Data Vital Signs (Past 12 Hours) Vital Signs Temp Pulse Pulse Resp BP Pulse Ox Pulse Ox 12/27/24 08:05 98.4 F 81 20 121/71 91 12/27/24 07:33 83 12/27/24 07:28 83 14 91 12/27/24 04:29 97.7 F 66 16 132/74 92 12/27/24 03:10 14 12/27/24 00:00 91 12/26/24 23:14 97.9 F 72 18 133/74 91 12/26/24 22:40 81 22 95 O2 Del Method O2 Del Method FiO2 12/27/24 08:05 CPAP 12/27/24 07:33 12/27/24 07:28 Room Air 21 12/27/24 04:29 Room Air 12/27/24 03:10 21 12/27/24 00:00 Room Air 12/26/24 23:14 Room Air 12/26/24 22:40 21 Laboratory Results 12/26/24 09:00 Gram Stain - Final Knee,Right Aerobic and Anaerobic Culture - Pending Gram stain showed many polys, no organisms seen. No crystals seen Synovial WBC 45,255 Synovial color: Ilana Synovial appearance: Cloudy Synovial RBC 17,000 Synovial polynuclear percent: 92.7 Synovial mononuclear percent: 7.3 12/27/24 06:28 WBC 8.77 RBC 3.61 L Hgb 11.0 L Hct 34.1 L MCV 94.5 MCH 30.5 MCHC 32.3 RDW Std Deviation 59.8 H RDW Coeff of Sammie 17.2 H Plt Count 258 MPV 9.1 L Immature Gran % (Auto) 0.3 Neut % (Auto) 74.6 Lymph % (Auto) 10.6 [place] % (Auto) 9.4 Eos % (Auto) 4.8 Baso % (Auto) 0.3 Neut # (Auto) 6.54 H Lymph # (Auto) 0.93 L [place] # (Auto) 0.82 H Eos # (Auto) 0.42 Baso # (Auto) 0.03 Immature Gran # (Auto) 0.03 Sodium 138 Potassium 4.2 Chloride 103 Carbon Dioxide 29 Anion Gap 6 BUN 31 H Creatinine 1.12 Est Cr Clr Drug Dosing 69.2 eGFR 66.00 BUN/Creatinine Ratio 27.7 H Glucose 104 H Calcium 8.3 L C-Reactive Protein 12.70 H Diagnostic Findings EXAM: CT scan right knee without contrast 12/25/2024 Findings: The metallic components from the femoral and tibial total knee arthroplasty are again noted with the essentially stable alignment when compared to previous plain film exam. There is a large knee joint effusion extending to the suprapatellar bursa. Additional superficial and subcutaneous diffuse soft tissue swelling is present. Visualized bony structures show no focal lytic or blastic destructive process or active periosteal reaction. IMPRESSION: 1. Status post right total knee arthroplasty. 2. No acute bony process seen at this time. 3. Large joint effusion with surrounding no superficial soft tissue swelling. Aspiration of the joint fluid would be useful for further evaluation and to rule out active infection. Electronically signed by Brian Bell 12-25-2024 2:03 PM
--- NOTE | 2024-12-27 12:46 | Hospitalist Progress Note ---
Date of Service December 27, 2024 Assessment & Plan (1) UTI (urinary tract infection): (2) Swelling of right knee: (3) History of MRSA infection: (4) Recurrent cellulitis of lower extremity: (5) Chronic venous stasis: Plan This patient is an 79-year-old male who presented on 12/23 for intermittent burning with urination. History of MDR infections (both UTI & skin/soft- tissue). Sent in by the [place] for urine culture taken on 12/20 that was positive for bacteria with significant resistance. urine culture growing ESBL Also with suspected worsening right knee infection. Culture history: 12/2024: Proteus ESBL of the foot 12/23/2024: Proteus ESBL of the urine 11/25/2024: Foot Proteus ESBL 08/12/2024: Proteus ESBL urine 07/14/2024: Right foot. MRSA, VRE both Dapto sensitive. MRSA was Bactrim sensitive 03/2024: Right foot, VRE 05/2024: MRSA Staph aureus, right foot #Suspected MDR UTI patient does report he had fevers at home prior to arrival UA overtly infected appearing. UCx positive for ESBL Proteus. Blood cultures drawn on 12/23; no growth to date Most recent urine cultures on 07/22/24 and 08/12/24 grew Proteus mirabilis ESBL with significant resistance Contact isolation precautions Continue ertapenem 1000mg IV q24h (started on 12/24). Anticipate 7-day course of treatment, last day 12/31/2024 Patient expresses a strong desire to return home when possible Per [facility], would need home health infusions versus SNF at [facility] when medically appropriate for discharge I anticipate he would be in the hospital till 12/31 #R knee swelling | recurrent bilateral lower extremity cellulitis | h/o right knee PJI and MRSA bacteremia On admission, was noted to have right knee swelling, No missed doses of his Bactrim prophylaxis -CT right knee shows effusion -he is status post arthrocentesis., With marked elevation of white blood cell, but no bacteria and no crystals On Bactrim p.o. twice daily suppressive therapy [employer], will hold whiler he is on Daptomycin here Right knee swollen, erythematous, tender on admission. CRP elevated. Clinically progressing with adjunct daptomycin and on ertapenem for UTI as noted Orthopedics consulted for arthrocentesis, dry tap 12/24. Repeat tap 12/26 with marked elevation in white blood cell count suggestive of active infection. No gout/pseudogout crystals are seen Will await antibiotic sensitivities and speciations, suspect outpatient treatment plan will be ertapenem until 12/31 for ESBL UTI treatment, ongoing daptomycin with further recommendations Foot Wounds Foot cultures have grown MRSA and ESBL in the past #Spells/Drowsiness | untreated LEONARD Patient has intermittent daytime drowsiness and falls asleep middle of conversations. This happens more frequently when sick/septic in the past DDx includes hypoventilation, narcolepsy, severe daytime hypersomnia from untreated LEONARD. Patient continues to "pass out" in the middle of conversations Has been hypercapnic in the past bicarb here 2731 recently. 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 Last echocardiogram on 09/03/2024 revealed LVEF at 50 to 55%; right ventricular dilation He has chronic peripheral edema and possible hepatic congestion Continue strict I&O monitoring, daily weights, low-sodium diet Continue Bumex, metoprolol #PAF | H/o Flutter-currently remains in sinus rhythm He has had significant issues with rapid a flutter and fibrillation in the past which was controlled with amiodarone Continue amiodarone, xarelto Monitor on telemetry #Iron deficiency anemia Chronic (baseline range 11-13); normocytic; stable No signs of active bleeding Continue iron supplements and anticoagulation Follow CBC #Depression/anxiety Continue with duloxetine, mirtazapine #GERD Continue PPI #Glaucoma Patient normally on Rocklatan HS (non-formulary) Latanoprost HS while inpatient #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 Review of Systems Review of Systems: All systems reviewed are negative, apart from the ones contained in the history. Physical Exam Physical Exam: General: A&Ox3. NAD. Cooperative. HEENT: Atraumatic, normocephalic. Vision and hearing grossly intact Pulm: CTAB A&P. -wheezes, -rales, -rhonchi. Symmetrical chest rise. No increase in work of breathing. No respiratory distress. Cardiac: RRR, -mrg. Radial pulses intact and symmetrical. Abdominal: Nontender, nondistended, soft. BS present. Extremities: Right lower extremity: Some ichthyosis of the lower extremities present. Moderate erythema and edema overlying the right knee, diffuse mild tenderness is present worse over the medial and lateral joint lines. Ankle dorsiflexion/plan tarflexion is intact with good strength, sensation to soft touch is intact over the dorsum of the foot. Cap refill is intact less than 2 seconds. Results & Data Results & Data Vital Signs (Past 12 Hours) Vital Signs Temp Pulse Pulse Resp BP Pulse Ox O2 Del Method 12/27/24 12:33 98.4 F 81 20 157/83 H 90 Room Air 12/27/24 08:05 98.4 F 81 20 121/71 91 CPAP 12/27/24 08:00 Room Air 12/27/24 07:33 83 12/27/24 07:28 83 14 91 Room Air 12/27/24 04:29 97.7 F 66 16 132/74 92 Room Air 12/27/24 03:10 14 FiO2 12/27/24 12:33 12/27/24 08:05 12/27/24 08:00 12/27/24 07:33 12/27/24 07:28 21 12/27/24 04:29 12/27/24 03:10 21 PG Care Time/CCT Total # of Minutes Spent Total Time Spent with Patient: Total time spent is greater than 50% in coordination of care (as documented) at patient's floor/unit and/or counseling patient: Coding Level of Care Code 56447 SUB INP/OBS CARE 2/35MIN Diagnoses UTI (urinary tract infection) N39.0 Swelling of right knee M25.461 History of MRSA infection Z86.14 Recurrent cellulitis of lower extremity L03.119 Chronic venous stasis I87.8 Time Spent (min) 35
[2024-12-27] MEDS: ALBUT/IPRATROP 3MG/0.5MG NEB 3 ML VIAL NEB PRN (22:28)
[2024-12-28 07:57] LABS: Hematocrit (blood only) 34.3 % (42.0-52.0); Hemoglobin 11.1 g/dl (14.0-18.0); Immature Granulocytes # (auto) 0.02 K/uL (0.01-0.20); Immature Granulocytes % (auto) 0.3 %; Mean Corpuscular Hemoglobin 30.6 pg (25.0-34.0); Mean Corpuscular Volume 94.5 fL (80.0-100.0); Platelet Count 283 K/uL (130-400); RDW Standard Deviation 58.8 fL (36.4-46.3); Red Blood Count 3.63 M/uL (4.70-6.10); White Blood Count 7.15 K/ul (4.8-10.8)
[2024-12-28 08:13] LABS: Anion Gap 5.0 (3-11); Blood Urea Nitrogen 28.0 mg/dl (6-23); Calcium 8.4 mg/dl (8.6-10.3); Carbon Dioxide 31.0 mmol/L (21-32); Chloride 103.0 mmol/L (98-107); Creatinine Clr Calc Pharmacy 80.2 ml/min; Glucose 95.0 mg/dl (70-99(Fasting)); Potassium 4.1 mmol/L (3.5-5.1); Sodium 139.0 mmol/L (136-145)
[2024-12-28] MEDS: POLYETHYLENE (MIRALAX) 17 GM PACK PO SCH (09:28)
[2024-12-28] MEDS: SENNA 8.6 MG TAB PO PRN (09:28)
--- NOTE | 2024-12-28 10:53 | Hospitalist Progress Note ---
Date of Service December 28, 2024 Assessment & Plan (1) UTI (urinary tract infection): (2) Swelling of right knee: (3) History of MRSA infection: (4) Recurrent cellulitis of lower extremity: (5) Chronic venous stasis: Plan Assessment & Plan (1) UTI (urinary tract infection): (2) Swelling of right knee: (3) History of MRSA infection: (4) Recurrent cellulitis of lower extremity: (5) Chronic venous stasis: Plan This patient is an 79-year-old male who presented on 12/23 for intermittent burning with urination. History of MDR infections (both UTI & skin/soft- tissue). Sent in by the [place] for urine culture taken on 12/20 that was positive fo r bacteria with significant resistance. urine culture growing ESBL Also with suspected worsening right knee infection. Culture history: 12/2024: Proteus ESBL of the foot 12/23/2024: Proteus ESBL of the urine 11/25/2024: Foot Proteus ESBL 08/12/2024: Proteus ESBL urine 07/14/2024: Right foot. MRSA, VRE both Dapto sensitive. MRSA was Bactrim sensitive 03/2024: Right foot, VRE 05/2024: MRSA Staph aureus, right foot #Suspected MDR UTI patient does report he had fevers at home prior to arrival UA overtly infected appearing. UCx positive for ESBL Proteus. Blood cultures drawn on 12/23; no growth to date Most recent urine cultures on 07/22/24 and 08/12/24 grew Proteus mirabilis ESBL with significant resistance Contact isolation precautions Continue ertapenem 1000mg IV q24h (started on 12/24). Anticipate 7-day course of treatment, last day 12/31/2024 Patient expresses a strong desire to return home when possible Per CM [facility] is not able to do auth for MTU infusions, he does not want to go to [facility] either I anticipate he would be in the hospital till 12/31 #R knee swelling | recurrent bilateral lower extremity cellulitis | h/o right knee PJI and MRSA bacteremia On admission, was noted to have right knee swelling, No missed doses of his Bactrim prophylaxis -CT right knee shows effusion -he is status post arthrocentesis., With marked elevation of white blood cell, but no bacteria and no crystals On Bactrim p.o. twice daily suppressive therapy [employer]CH[employer], will hold whiler he is on Daptomycin here Right knee swollen, erythematous, tender on admission. CRP elevated. Clinically progressing with adjunct daptomycin and on ertapenem for UTI as noted Orthopedics consulted for arthrocentesis, dry tap 12/24. Repeat tap 12/26 with marked elevation in white blood cell count suggestive of active infection. No gout/pseudogout crystals are seen Will await antibiotic sensitivities and speciations, suspect outpatient treatment plan will be ertapenem until 12/31 for ESBL UTI treatment, ongoing daptomycin with further recommendations Foot Wounds Foot cultures have grown MRSA and ESBL in the past #Spells/Drowsiness | untreated LEONARD Patient has intermittent daytime drowsiness and falls asleep middle of conversations. This happens more frequently when sick/septic in the past DDx includes hypoventilation, narcolepsy, severe daytime hypersomnia from untreated LEONARD. Patient continues to "pass out" in the middle of conversations Has been hypercapnic in the past bicarb here 2731 recently. 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 Last echocardiogram on 09/03/2024 revealed LVEF at 50 to 55%; right ventricular dilation He has chronic peripheral edema and possible hepatic congestion Continue strict I&O monitoring, daily weights, low-sodium diet Continue Bumex, metoprolol #PAF | H/o Flutter-currently remains in sinus rhythm He has had significant issues with rapid a flutter and fibrillation in the past which was controlled with amiodarone Continue amiodarone, xarelto Monitor on telemetry #Iron deficiency anemia Chronic (baseline range 11-13); normocytic; stable No signs of active bleeding Continue iron supplements and anticoagulation Follow CBC #Depression/anxiety Continue with duloxetine, mirtazapine #GERD Continue PPI #Glaucoma Patient normally on Rocklatan HS (non-formulary) Latanoprost HS while inpatient #Myoclonic jerking Continue Keppra 500 mg BID #Idiopathic neuropathy Continue gabapentin 600mg TID Dose reduce gabapentin if rising creatinine level or if leads to exacerbation of myoclonus Disposition: Continued stay on MedSur telemetry, hopefully d/c after 12/31 VTE PPx: Xarelto Admission and Anticipated Discharge Date Admission Date: December 23, 2024 Subjective Patient seen and examined today, no new complaints, says he feels a lot better. really wants to go home Review of Systems Review of Systems: All systems reviewed are negative, apart from the ones contained in the history. Physical Exam Physical Exam: General: A&Ox3. NAD. Cooperative. HEENT: Atraumatic, normocephalic. Vision and hearing grossly intact Pulm: CTAB A&P. -wheezes, -rales, -rhonchi. Symmetrical chest rise. No increase in work of breathing. No respiratory distress. Cardiac: RRR, -mrg. Radial pulses intact and symmetrical. Abdominal: Nontender, nondistended, soft. BS present. Extremities: Right lower extremity: Some ichthyosis of the lower extremities present. Moderate erythema and edema overlying the right knee, diffuse mild tenderness is present worse over the medial and lateral joint lines. Ankle dorsiflexion/plantarflexion is intact with good strength, sensation to soft touch is intact over the dorsum of the foot. Cap refill is intact less than 2 seconds. Results & Data Results & Data Vital Signs (Past 12 Hours) Vital Signs Temp Pulse Pulse Resp BP Pulse Ox O2 Del Method 12/28/24 09:47 Room Air 12/28/24 07:57 97.5 F L 76 16 159/77 H 92 Room Air 12/28/24 07:25 81 15 93 Room Air 12/28/24 07:24 73 12/28/24 03:20 97.9 F 76 20 159/89 H 94 Room Air 12/28/24 03:00 73 17 92 12/28/24 00:00 Room Air, BiPAP 12/27/24 23:35 73 15 93 12/27/24 23:19 97.9 F 72 20 143/70 H 94 Room Air 12/27/24 23:00 72 FiO2 12/28/24 09:47 12/28/24 07:57 12/28/24 07:25 21 12/28/24 07:24 12/28/24 03:20 12/28/24 03:00 21 12/28/24 00:00 12/27/24 23:35 21 12/27/24 23:19 12/27/24 23:00 PG Care Time/CCT Total # of Minutes Spent Total Time Spent with Patient: Total time spent is greater than 50% in coordination of care (as documented) at patient's floor/unit and/or counseling patient: Coding Level of Care Code 14918 SUB INP/OBS CARE 235MIN Diagnoses UTI (urinary tract infection) N39.0 Swelling of right knee M25.461 History of MRSA infection Z86.14 Recurrent cellulitis of lower extremity L03.119 Chronic venous stasis I87.8 Time Spent (min) 35
--- NOTE | 2024-12-28 17:52 | Orthopedic Progress Note ---
Date of Service December 28, 2024 Assessment & Plan (1) Swelling of right knee: Plan: IMPRESSION: Chronic infected R TKA. PLAN: Knee aspiration fluid cultures pending. No crystals. Gram stain many polys but no organisms. No growth to date. CRP elevated 12.7. Effusion still present, has not significantly increased. Range of motion remains baseline. No systemic symptoms. Will continue to follow cultures. As long as patient can be discharged, in the process of coordinating appointment with Dr. Kern outpatient. I discussed transportation with the patient and he felt that the [place] would be able to assist him in transportation to [place] though he was not entirely sure yet. Will coordinate with case management. Wheelchair-bound x 2 years Continue Xarelto for DVT prophylaxis and his atrial fibrillation Ice with easy wrap Place pillow under his right knee Pain control with p.o. medication per medicine discretion Continue his oral Bactrim and possibly IV antibiotics Continue care per Hospitalist service. Admission and Anticipated Discharge Date Admission Date: December 23, 2024 Subjective Knee has the usual amount of discomfort. He wants to know, "when can I go home". Physical Exam Physical Exam: RLE: NV unchanged. + effusion R knee. PV changes and dry skin lower leg. knee ROM 30-90 deg Results & Data Vital Signs (Past 12 Hours) Vital Signs Temp Pulse Pulse Resp BP Pulse Ox O2 Del Method 12/28/24 16:18 36.9 C 78 18 123/78 95 Room Air 12/28/24 15:16 77 12/28/24 12:17 36.7 C 75 18 130/77 94 Room Air 12/28/24 09:47 Room Air 12/28/24 07:57 36.4 C L 76 16 159/77 H 92 Room Air 12/28/24 07:25 81 15 93 Room Air 12/28/24 07:24 73 FiO2 12/28/24 16:18 12/28/24 15:16 12/28/24 12:17 12/28/24 09:47 12/28/24 07:57 12/28/24 07:25 21 12/28/24 07:24 Laboratory Results 12/28/24 Range/Units 07:27 WBC 7.15 (4.8-10.8) K/ul RBC 3.63 L (4.70-6.10) M/uL Hgb 11.1 L (14.0-18.0) g/dl Hct 34.3 L (42.0-52.0) % MCV 94.5 (80.0-100.0) fL MCH 30.6 (25.0-34.0) pg MCHC 32.4 (32.0-36.0) g/dL RDW Std Deviation 58.8 H (36.4-46.3) fL RDW Coeff of Sammie 17.1 H (11.5-14.5) % Plt Count 283 (130-400) K/uL MPV 9.5 (9.4-12.4) fL Immature Gran % (Auto) 0.3 % Neut % (Auto) 72.3 % Lymph % (Auto) 11.3 % [place] % (Auto) 9.9 % Eos % (Auto) 5.6 % Baso % (Auto) 0.6 % Neut # (Auto) 5.17 (1.40-6.50) K/uL Lymph # (Auto) 0.81 L (1.20-3.40) K/uL [place] # (Auto) 0.71 H (0.11-0.59) K/uL Eos # (Auto) 0.40 (0.00-0.50) K/uL Baso # (Auto) 0.04 (0.00-0.20) K/uL Immature Gran # (Auto) 0.02 (0.01-0.20) K/uL Sodium 139 (136-145) mmol/L Potassium 4.1 (3.5-5.1) mmol/L Chloride 103 (98-107) mmol/L Carbon Dioxide 31 (21-32) mmol/L Anion Gap 5 (3-11) BUN 28 H (6-23) mg/dl Creatinine 0.96 (0.6-1.4) mg/dl Est Cr Clr Drug Dosing 80.2 ml/min eGFR 79.41 BUN/Creatinine Ratio 29.2 H (10-20) Glucose 95 (70-99(Fasting)) mg/dl Calcium 8.4 L (8.6-10.3) mg/dl Spec: [id number] Collected: 12/26/24 Received: 12/26/24 [facility] Dr: Blake Levy, PA-C Copy To: Carolyn García MD Source: Knee,Right OV Order: Ordered: Aer/Crissy Cult/Sm Procedure Result Verified Site Gram Stain Final 12/26/24 Gram Stain Result Many Polys No Organisms Seen Aero/Crissy Cult Preliminary 12/28/24 No growth to date. Spec: [id number] Collected: 12/23/24 Received: 12/23/[address]: Jae Wiley DO Source: Blood OV Order: Ordered: Blood Culture Procedure Result Verified Site Blood Culture Aerobic Preliminary 12/25/24 No growth in Aerobic bottle after 48 hours. Blood Culture Anaerobic Final 12/25/24 Test not performed [facility] [address], [place] [address] / Director: Annia Mackey M.D. Clinical Laboratory Report Name: RAFY CHICAS Acct: [id number] Status: ADM IN : 1945 [facility] Date: 12/23/24 Age: 79 Sex: M Dis Date: Loc: [address]/Bed: [facility] Spec: [id number] Collected: 12/23/24 Received: 12/23/[address]: Rakesh Ellis DO Source: Urine,Clean Catch OV Order: Ordered: Urine Culture Procedure Result Verified Site Urine Culture Final 12/25/24 Organism 1 Proteus mirabilis ESBL Cocoa Count >100,000 CFU/ml Sens Sensitivities to Follow ESBL P cornelio RX M.I.C. --- --------- Amikacin S <=16 Amox/Clav I 16 Ampicillin R >16 Amp/Sul I 16 Cefazolin R >16 Cefepime R >16 Cefotaxime R >32 Cefoxitin S <=8 Ceftriaxone R >32 Cefuroxime R >16 Ciprofloxacin R >2 Ertapenem S <=0.5 Gentamicin R >8 Levofloxacin R 2 Meropenem S <=1 Tobramycin R >8 Trimeth/Sulfa R >2/38 Pip/Tazo S <=8 S = SENSITIVE I = INTERMEDIATE R = RESISTANT
[2024-12-29 08:09] LABS: Hematocrit (blood only) 34.5 % (42.0-52.0); Hemoglobin 11.3 g/dl (14.0-18.0); Immature Granulocytes # (auto) 0.03 K/uL (0.01-0.20); Immature Granulocytes % (auto) 0.5 %; Mean Corpuscular Hemoglobin 30.9 pg (25.0-34.0); Mean Corpuscular Volume 94.3 fL (80.0-100.0); Platelet Count 290 K/uL (130-400); RDW Standard Deviation 59.7 fL (36.4-46.3); Red Blood Count 3.66 M/uL (4.70-6.10); White Blood Count 6.60 K/ul (4.8-10.8)
[2024-12-29 08:34] LABS: Anion Gap 5.0 (3-11); Blood Urea Nitrogen 30.0 mg/dl (6-23); Calcium 8.6 mg/dl (8.6-10.3); Carbon Dioxide 32.0 mmol/L (21-32); Chloride 102.0 mmol/L (98-107); Creatinine Clr Calc Pharmacy 77.6 ml/min; Glucose 86.0 mg/dl (70-99(Fasting)); Potassium 4.3 mmol/L (3.5-5.1); Sodium 139.0 mmol/L (136-145)
--- NOTE | 2024-12-29 09:06 | Orthopedic Progress Note ---
Date of Service December 29, 2024 Assessment & Plan (1) Swelling of right knee: (2) Infection of prosthetic right knee joint: Plan: Knee aspiration fluid cultures remain pending. No crystals. Gram stain many polys but no organisms. No growth to date. Effusion still present but is minimal. Range of motion remains baseline. No systemic symptoms. Will continue to follow cultures. Awaiting confirmation of his appoint with Dr. Kern at [facility]. [facility]. Wheelchair-bound x 2 years Continue Xarelto for DVT prophylaxis and his atrial fibrillation Ice with easy wrap Place pillow under his right knee when reclining. Pain control with p.o. medication per medicine discretion Continue his oral Bactrim Continue care per Hospitalist service. Admission and Anticipated Discharge Date Admission Date: December 23, 2024 Subjective This 79 year old male is seen today in his room. He has finished his breakfast. He is wondering when he can be discharged to home. He denies any significant pain at this point. No other complaints. Physical Exam Physical Exam: General: Well-developed, well-nourished, elderly male, in no acute distress. Sitting at his bedside. Alert and oriented. Skin: Warm and dry with fair turgor. No rashes. He has an Amish wrap in place on his knee. Upon removal, there is no significant intra-articular effusion. No redness or warmth. Postsurgical scarring is present. Musculoskeletal: The patient has intact motor function of his right knee. Ambulation was not attempted. Neurologic: Gross sensation is intact across the right leg around his knee by soft touch. Results & Data Vital Signs (Past 12 Hours) Vital Signs Temp Pulse Pulse Resp BP Pulse Ox Pulse Ox 12/29/24 08:17 36.8 C 80 18 126/77 92 12/29/24 07:40 76 12/29/24 07:23 77 15 91 12/29/24 03:20 94 12/29/24 03:08 72 19 95 12/29/24 03:07 36.5 C 78 18 116/74 85 L 12/29/24 00:39 77 12/29/24 00:00 95 12/28/24 23:44 36.5 C 75 16 147/77 H 90 12/28/24 22:58 75 15 94 O2 Del Method O2 Del Method FiO2 12/29/24 08:17 Room Air 12/29/24 07:40 12/29/24 07:23 Room Air 12/29/24 03:20 CPAP 12/29/24 03:08 21 12/29/24 03:07 CPAP 12/29/24 00:39 12/29/24 00:00 Room Air 12/28/24 23:44 CPAP 12/28/24 22:58 21
--- NOTE | 2024-12-29 10:52 | Hospitalist Progress Note ---
Date of Service December 29, 2024 Assessment & Plan (1) UTI (urinary tract infection): (2) Swelling of right knee: (3) History of MRSA infection: (4) Recurrent cellulitis of lower extremity: (5) Chronic venous stasis: Plan Assessment & Plan (1) UTI (urinary tract infection): (2) Swelling of right knee: (3) History of MRSA infection: (4) Recurrent cellulitis of lower extremity: (5) Chronic venous stasis: Plan This patient is an 79-year-old male who presented on 12/23 for intermittent burning with urination. History of MDR infections (both UTI & skin/soft- tissue). Sent in by the ND for urine culture taken on 12/20 that was positive fo r bacteria with significant resistance. urine culture growing ESBL Also with suspected worsening right knee infection. Culture history: 12/2024: Proteus ESBL of the foot 12/23/2024: Proteus ESBL of the urine 11/25/2024: Foot Proteus ESBL 08/12/2024: Proteus ESBL urine 07/14/2024: Right foot. MRSA, VRE both Dapto sensitive. MRSA was Bactrim sensitive 03/2024: Right foot, VRE 05/2024: MRSA Staph aureus, right foot #Suspected MDR UTI patient does report he had fevers at home prior to arrival UA overtly infected appearing. UCx positive for ESBL Proteus. Blood cultures drawn on 12/23; no growth to date Most recent urine cultures on 07/22/24 and 08/12/24 grew Proteus mirabilis ESBL with significant resistance Contact isolation precautions Continue ertapenem 1000mg IV q24h (started on 12/24). Anticipate 7-day course of treatment, last day 12/31/2024 Patient expresses a strong desire to return home when possible Per CM ND is not able to do auth for MTU infusions, he does not want to go to [facility] either I anticipate he would be in the hospital till 12/31 #R knee swelling | recurrent bilateral lower extremity cellulitis | h/o right knee PJI and MRSA bacteremia On admission, was noted to have right knee swelling, No missed doses of his Bactrim prophylaxis -CT right knee shows effusion -he is status post arthrocentesis., With marked elevation of white blood cell, but no bacteria and no crystals On Bactrim p.o. 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 CRP elevated. Clinically progressing with adjunct daptomycin and on ertapenem for UTI as noted Orthopedics consulted for arthrocentesis, dry tap 12/24. Repeat tap 12/26 with marked elevation in white blood cell count suggestive of active infection. No gout/pseudogout crystals are seen Will await antibiotic sensitivities and speciations, suspect outpatient treatment plan will be ertapenem until 12/31 for ESBL UTI treatment, ongoing daptomycin with further recommendations Foot Wounds Foot cultures have grown MRSA and ESBL in the past #Spells/Drowsiness | untreated LEONARD Patient has intermittent daytime drowsiness and falls asleep middle of conversations. This happens more frequently when sick/septic in the past DDx includes hypoventilation, narcolepsy, severe daytime hypersomnia from untreated LEONARD. Patient continues to "pass out" in the middle of conversations Has been hypercapnic in the past bicarb here 2731 recently. 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 Last echocardiogram on 09/03/2024 revealed LVEF at 50 to 55%; right ventricular dilation He has chronic peripheral edema and possible hepatic congestion Continue strict I&O monitoring, daily weights, low-sodium diet Continue Bumex, metoprolol #PAF | H/o Flutter-currently remains in sinus rhythm He has had significant issues with rapid a flutter and fibrillation in the past which was controlled with amiodarone Continue amiodarone, xarelto Monitor on telemetry #Iron deficiency anemia Chronic (baseline range 11-13); normocytic; stable No signs of active bleeding Continue iron supplements and anticoagulation Follow CBC #Depression/anxiety Continue with duloxetine, mirtazapine #GERD Continue PPI #Glaucoma Patient normally on Rocklatan HS (non-formulary) Latanoprost HS while inpatient #Myoclonic jerking Continue Keppra 500 mg BID #Idiopathic neuropathy Continue gabapentin 600mg TID Dose reduce gabapentin if rising creatinine level or if leads to exacerbation of myoclonus Disposition: Continued stay on MedSur telemetry, hopefully d/c after 12/31 VTE PPx: Xarelto Admission and Anticipated Discharge Date Admission Date: December 23, 2024 Subjective patient seen and examined, he is grumpy and frustrated because he wants to go home Review of Systems Review of Systems: All systems reviewed are negative, apart from the ones contained in the history. Physical Exam Physical Exam: General: A&Ox3. NAD. Cooperative. HEENT: Atraumatic, normocephalic. Vision and hearing grossly intact Pulm: CTAB A&P. -wheezes, -rales, -rhonchi. Symmetrical chest rise. No increase in work of breathing. No respiratory distress. Cardiac: RRR, -mrg. Radial pulses intact and symmetrical. Abdominal: Nontender, nondistended, soft. BS present. Extremities: Right lower extremity: Some ichthyosis of the lower extremities present. Moderate erythema and edema overlying the right knee, diffuse mild tenderness is present worse over the medial and lateral joint lines. Ankle dorsiflexion/plantarflexion is intact with good strength, sensation to soft to uch is intact over the dorsum of the foot. Cap refill is intact less than 2 seconds. Results & Data Results & Data Vital Signs (Past 12 Hours) Vital Signs Temp Pulse Pulse Resp BP Pulse Ox Pulse Ox 12/29/24 09:00 12/29/24 08:17 98.2 F 80 18 126/77 92 12/29/24 07:40 76 12/29/24 07:23 77 15 91 12/29/24 03:20 94 12/29/24 03:08 72 19 95 12/29/24 03:07 97.7 F 78 18 116/74 85 L 12/29/24 00:39 77 12/29/24 00:00 95 12/28/24 23:44 97.7 F 75 16 147/77 H 90 12/28/24 22:58 75 15 94 O2 Del Method O2 Del Method FiO2 12/29/24 09:00 Room Air, CPAP 12/29/24 08:17 Room Air 12/29/24 07:40 12/29/24 07:23 Room Air 12/29/24 03:20 CPAP 12/29/24 03:08 21 12/29/24 03:07 CPAP 12/29/24 00:39 12/29/24 00:00 Room Air 12/28/24 23:44 CPAP 12/28/24 22:58 21 PG Care Time/CCT Total # of Minutes Spent Total Time Spent with Patient: Total time spent is greater than 50% in coordination of care (as documented) at patient's floor/unit and/or counseling patient: Coding Level of Care Code 22964 SUB INP/OBS CARE 2/35MIN Diagnoses UTI (urinary tract infection) N39.0 Swelling of right knee M25.461 History of MRSA infection Z86.14 Recurrent cellulitis of lower extremity L03.119 Chronic venous stasis I87.8 Time Spent (min) 35
--- NOTE | 2024-12-30 10:49 | Orthopedic Progress Note ---
Date of Service December 30, 2024 Assessment & Plan (1) Swelling of right knee: Plan: IMPRESSION: Chronic infected R TKA. PLAN: Knee aspiration:. No crystals. Gram stain many polys but no organisms. No growth to date. Effusion still present, has not significantly increased. Range of motion remains baseline. No systemic symptoms. Will continue to follow cultures. After patient discharged, in the process of coordinating appointment with Dr. Kern outpatient (visit being held for him 01/05/[address] Kern in [place]). I discussed transportation with the patient and he felt that the [facility] would be able to assist him in transportation to [place] though he was not entirely sure yet. Will coordinate with case management. Wheelchair-bound x 2 years Continue Xarelto for DVT prophylaxis and his atrial fibrillation Ice with easy wrap Place pillow under his right knee Pain control with p.o. medication per medicine discretion Continue his oral Bactrim and complete IV antibiotics 12/31/24 Continue care per Hospitalist service. Admission and Anticipated Discharge Date Admission Date: December 23, 2024 Supervising Physician Co-Signing Physician Notes I, Dr. Ramos, saw and examined the patient and agree with the above findings and plan of care I discussed with my PA. Subjective This 79-year-old male seen today for follow-up of right knee infection status post total knee arthroplasty with Dr. Kern. Patient states that he is doing fairly well today. He is resting comfortably in bed. States that his knee does not feel any different than it has in the past several days. He is still on oral Bactrim for infection prevention but not on any IV antibiotics currently. Patient denies chest pain, shortness of breath, nausea, vomiting, diarrhea, fever, chills, sweats or numbness or tingling in his right lower extremity. Review of Systems Review of Systems: All systems reviewed & are unremarkable except as noted in Subjective Physical Exam Physical Exam: Right knee: Patient has moderate edema and erythema with some warmth over the entire knee. He also has venous stasis dermatitis extending from just the knee to the ankle. There is also edema to admitted dorsal foot. Peripheral pulses are 1+. Patient is able to detect light sensation to touch over the pads of all digits. He is able to actively dorsi and plantarflex foot. Knee range of motion is limited due to flexion contracture where patient is about 25 degrees extension and flexion is limited to 90 degrees. There is a palpable effusion. Patient experiences medial and lateral joint tenderness when he is palpating the proximal position. He is neurovascularly intact. Results & Data Vital Signs (Past 12 Hours) Vital Signs Temp Pulse Pulse Resp BP Pulse Ox O2 Del Method 12/30/24 07:46 Room Air 12/30/24 07:44 36.5 C 75 18 136/83 99 Room Air 12/30/24 07:20 79 12 84 L Room Air 12/30/24 05:38 76 12/30/24 02:54 36.7 C 85 18 125/74 90 Room Air FiO2 12/30/24 07:46 12/30/24 07:44 12/30/24 07:20 21 12/30/24 05:38 12/30/24 02:54 Laboratory Results Spec: [id number] Collected: 12/26/24 Received: 12/26/[address]: Blake Levy, PA-C Copy To: Carolyn García MD Source: Knee,Right OV Order: Ordered: Aer/Crissy Cult/Sm Procedure Result Verified Site Gram Stain Final 12/26/24-1224 Gram Stain Result Many Polys No Organisms Seen Aero/Crissy Cult Preliminary 12/30/24-114 No growth to date. Name: AVIVARAFY Mane : 1945 PAGE 1 Printed: 12/30/24 4102 END OF REPORT Diagnostic Findings Laboratory Results WBC 6.60 K/ul (4.8-10.8) 12/29/24 07:12 RBC 3.66 M/uL (4.70-6.10) L 12/29/24 07:12 Hgb 11.3 g/dl (14.0-18.0) L 12/29/24 07:12 Hct 34.5 % (42.0-52.0) L 12/29/24 07:12 MCV 94.3 fL (80.0-100.0) 12/29/24 07:12 MCH 30.9 pg (25.0-34.0) 12/29/24 07:12 MCHC 32.8 g/dL (32.0-36.0) 12/29/24 07:12 RDW Std Deviation 59.7 fL (36.4-46.3) H 12/29/24 07:12 RDW Coeff of Sammie 17.2 % (11.5-14.5) H 12/29/24 07:12 Plt Count 290 K/uL (130-400) 12/29/24 07:12 MPV 9.5 fL (9.4-12.4) 12/29/24 07:12 Immature Gran % (Auto) 0.5 % 12/29/24 07:12 Neut % (Auto) 69.9 % 12/29/24 07:12 Lymph % (Auto) 12.3 % 12/29/24 07:12 Tripp % (Auto) 10.6 % 12/29/24 07:12 Eos % (Auto) 6.2 % 12/29/24 07:12 Baso % (Auto) 0.5 % 12/29/24 07:12 Neut # (Auto) 4.62 K/uL (1.40-6.50) 12/29/24 07:12 Lymph # (Auto) 0.81 K/uL (1.20-3.40) L 12/29/24 07:12 Tripp # (Auto) 0.70 K/uL (0.11-0.59) H 12/29/24 07:12 Eos # (Auto) 0.41 K/uL (0.00-0.50) 12/29/24 07:12 Baso # (Auto) 0.03 K/uL (0.00-0.20) 12/29/24 07:12 Immature Gran # (Auto) 0.03 K/uL (0.01-0.20) 12/29/24 07:12 ESR 77 mm/hr (0-20) H 12/23/24 15:41 Sodium 139 mmol/L (136-145) 12/29/24 07:12 Potassium 4.3 mmol/L (3.5-5.1) 12/29/24 07:12 Chloride 102 mmol/L (98-107) 12/29/24 07:12 Carbon Dioxide 32 mmol/L (21-32) 12/29/24 07:12 Anion Gap 5 (3-11) 12/29/24 07:12 BUN 30 mg/dl (6-23) H 12/29/24 07:12 Creatinine 0.97 mg/dl (0.6-1.4) 12/29/24 07:12 Est Cr Clr Drug Dosing 77.6 ml/min 12/29/24 07:12 eGFR 78.43 12/29/24 07:12 BUN/Creatinine Ratio 30.9 (10-20) H 12/29/24 07:12 Glucose 86 mg/dl (70-99(Fasting)) 12/29/24 07:12 Lactate 1.3 mmol/L (0.4-2.0) 12/23/24 16:40 Calcium 8.6 mg/dl (8.6-10.3) 12/29/24 07:12 Total Bilirubin 0.5 mg/dl (0.2-1.0) 12/24/24 06:55 AST 33 U/L (13-39) 12/24/24 06:55 ALT 29 U/L (7-52) 12/24/24 06:55 Alkaline Phosphatase 67 U/L (34-104) 12/24/24 06:55 C-Reactive Protein 12.70 mg/dl (0-0.5) H 12/27/24 06:28 Total Protein 6.0 gm/dl (6.0-8.3) 12/24/24 06:55 Albumin 2.9 gm/dl (3.4-5.0) L 12/24/24 06:55 Globulin 3.1 gm/dl (2.5-4.0) 12/24/24 06:55 Albumin/Globulin Ratio 0.9 (0.9-2) 12/24/24 06:55 Procalcitonin 0.10 ng/ml (0-0.5) 12/23/24 15:16 Urine Color Dark Yellow 12/23/24 17:25 Urine Appearance Turbid (Clear) A 12/23/24 17:25 Urine pH 8.0 (4.5-7.5) H 12/23/24 17:25 Ur Specific [place] 1.022 (1.000-1.030) 12/23/24 17:25 Urine Protein 2+ (Negative) H 12/23/24 17:25 Urine Glucose (UA) Negative (Negative) 12/23/24 17: Urine Ketones Negative (Negative) 12/23/24 17:25 Urine Blood 2+ (Negative) H 12/23/24 17:25 Urine Nitrite Positive (Negative) A 12/23/24 17: Urine Bilirubin Negative (Negative) 12/23/24 17:25 Urine Urobilinogen Negative (Negative) 12/23/24 17:25 Ur Leukocyte Esterase 3+ (Negative) H 12/23/24 17:25 Urine WBC (Auto) >50 /hpf (0-5) H 12/23/24 17:25 Urine RBC (Auto) >20 /hpf (0-2) H 12/23/24 17:25 U Hyaline Cast (Auto) 0-2 /lpf (0-2) 12/23/24 17:25 U Epithel Cells (Auto) 0-2 /hpf (0-2) 12/23/24 17:25 Urine Bacteria (Auto) 4+ (None Seen) H 12/23/24 17:25 Urine Comment 12/23/24 17:25 Fluid Comment 12/26/24 09:00 Synovial Source Right Knee 12/26/24 09:00 Synovial Color Ilana 12/26/24 09:00 Synovial Appearance Cloudy 12/26/24 09:00 Synovial WBC (Auto) 16983 /ul (0-200) H 12/26/24 09:00 Synovial RBC (Auto) 91026 /uL 12/26/24 09:00 Synovial Polynuclear % 92.7 % 12/26/24 09:00 Synovial Mononuclear % 7.3 % 12/26/24 09:00 Synovial Crystals 12/26/24 09:00 Impressions Knee X-Ray 12/23/24 16:21 INDICATION: Pain TECHNIQUE: 2 views of the right knee were obtained. COMPARISON: None FINDINGS: No displaced acute osseous process is identified. Redemonstrated right knee arthroplasty with cement augmentation surrounding the tibial stem with components in anatomic alignment. Moderate soft tissue swelling in the anterior aspect of the knee that appears similar to the prior radiograph. Small joint fluid. IMPRESSION: No displaced acute osseous process is identified. Redemonstrated right knee arthroplasty with components in anatomic alignment. Moderate soft tissue swelling the anterior aspect of the knee that is similar to the prior radiograph. Small joint fluid Electronically signed by Gee Law 12-23-2024 4:[address] 12/25/24 11:09 REASON FOR EXAM: The patient is presenting with a history of right knee pain with swelling around the prosthesis. Previous exam: Knee x-ray 03/29/2024 EXAM: CT scan right knee without contrast Findings: The metallic components from the femoral and tibial total knee arthroplasty are again noted with the essentially stable alignment when compared to previous plain film exam. There is a large knee joint effusion extending to the suprapatellar bursa. Additional superficial and subcutaneous diffuse soft tissue swelling is present. Visualized bony structures show no focal lytic or blastic destructive process or active periosteal reaction. IMPRESSION: 1. Status post right total knee arthroplasty. 2. No acute bony process seen at this time. 3. Large joint effusion with surrounding no superficial soft tissue swelling. Aspiration of the joint fluid would be useful for further evaluation and to rule out active infection. Electronically signed by Brian Bell 12-25-2024 2:03 PM
[2024-12-30] MEDS: DAPTOmycin 600 MG in SYRINGE 0 ML IV SCH (11:10)
--- NOTE | 2024-12-30 11:10 | Hospitalist Progress Note ---
Date of Service December 30, 2024 Assessment & Plan (1) UTI (urinary tract infection): (2) Swelling of right knee: (3) History of MRSA infection: (4) Recurrent cellulitis of lower extremity: (5) Chronic venous stasis: Plan Assessment & Plan (1) UTI (urinary tract infection): (2) Swelling of right knee: (3) History of MRSA infection: (4) Recurrent cellulitis of lower extremity: (5) Chronic venous stasis: Plan This patient is an 79-year-old male who presented on 12/23 for intermittent burning with urination. History of MDR infections (both UTI & skin/soft- tissue). Sent in by the ME for urine culture taken on 12/20 that was positive fo r bacteria with significant resistance. urine culture growing ESBL Also with suspected worsening right knee infection. Culture history: 12/2024: Proteus ESBL of the foot 12/23/2024: Proteus ESBL of the urine 11/25/2024: Foot Proteus ESBL 08/12/2024: Proteus ESBL urine 07/14/2024: Right foot. MRSA, VRE both Dapto sensitive. MRSA was Bactrim sensitive 03/2024: Right foot, VRE 05/2024: MRSA Staph aureus, right foot #Suspected MDR UTI patient does report he had fevers at home prior to arrival UA overtly infected appearing. UCx positive for ESBL Proteus. Blood cultures drawn on 12/23; no growth to date Most recent urine cultures on 07/22/24 and 08/12/24 grew Proteus mirabilis ESBL with significant resistance Contact isolation precautions Continue Ertapenem 1000mg IV q24h (started on 12/24) and IV Daptomycin 600mg Q 24h Anticipate 7-day course of treatment, last day 12/31/2024 Patient expresses a strong desire to return home when possible Per CM [facility] is not able to do auth for MTU infusions, he does not want to go to [facility] either I anticipate he would be in the hospital till 12/31 #R knee swelling | recurrent bilateral lower extremity cellulitis | h/o right knee PJI and MRSA bacteremia On admission, was noted to have right knee swelling, No missed doses of his Bactrim prophylaxis -CT right knee shows effusion -he is status post arthrocentesis., With marked elevation of white blood cell, but no bacteria and no crystals On Bactrim p.o. 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 CRP elevated. Clinically progressing with adjunct daptomycin and on ertapenem for UTI as noted Orthopedics consulted for arthrocentesis, dry tap 12/24. Repeat tap 12/26 with marked elevation in white blood cell count suggestive of active infection. No gout/pseudogout crystals are seen Will await antibiotic sensitivities and speciations, suspect outpatient treatment plan will be ertapenem until 12/31 for ESBL UTI treatment, ongoing daptomycin with further recommendations Foot Wounds Foot cultures have grown MRSA and ESBL in the past #Spells/Drowsiness | untreated LEONARD Patient has intermittent daytime drowsiness and falls asleep middle of conversations. This happens more frequently when sick/septic in the past DDx includes hypoventilation, narcolepsy, severe daytime hypersomnia from untreated LEONARD. Patient continues to "pass out" in the middle of conversations Has been hypercapnic in the past bicarb here 2731 recently. 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 Last echocardiogram on 09/03/2024 revealed LVEF at 50 to 55%; right ventricular dilation He has chronic peripheral edema and possible hepatic congestion Continue strict I&O monitoring, daily weights, low-sodium diet Continue Bumex, metoprolol #PAF | H/o Flutter-currently remains in sinus rhythm He has had significant issues with rapid a flutter and fibrillation in the past which was controlled with amiodarone Continue amiodarone, xarelto Monitor on telemetry #Iron deficiency anemia Chronic (baseline range 11-13); normocytic; stable No signs of active bleeding Continue iron supplements and anticoagulation Follow CBC #Depression/anxiety Continue with duloxetine, mirtazapine #GERD Continue PPI #Glaucoma Patient normally on Rocklatan HS (non-formulary) Latanoprost HS while inpatient #Myoclonic jerking Continue Keppra 500 mg BID #Idiopathic neuropathy Continue gabapentin 600mg TID Dose reduce gabapentin if rising creatinine level or if leads to exacerbation of myoclonus Disposition: Continued stay on [facility] telemetry, hopefully d/c after his last dose of abx on 12/31 VTE PPx: Xarelto Admission and Anticipated Discharge Date Admission Date: December 23, 2024 Subjective patient seen and examined, no new complaints today Review of Systems Review of Systems: All systems reviewed are negative, apart from the ones contained in the history. Physical Exam Physical Exam: General: A&Ox3. NAD. Cooperative. HEENT: Atraumatic, normocephalic. Vision and hearing grossly intact Pulm: CTAB A&P. -wheezes, -rales, -rhonchi. Symmetrical chest rise. No increase in work of breathing. No respiratory distress. Cardiac: RRR, -mrg. Radial pulses intact and symmetrical. Abdominal: Nontender, nondistended, soft. BS present. Extremities: Right lower extremity: Some ichthyosis of the lower extremities present. M oderate erythema and edema overlying the right knee, diffuse mild tenderness is present worse over the medial and lateral joint lines. Ankle dorsiflexion/plantarflexion is intact with good strength, sensation to soft touch is intact over the dorsum of the foot. Cap refill is intact less than 2 seconds. Results & Data Results & Data Vital Signs (Past 12 Hours) Vital Signs Temp Pulse Pulse Resp BP Pulse Ox O2 Del Method 12/30/24 07:46 Room Air 12/30/24 07:44 97.7 F 75 18 136/83 99 Room Air 12/30/24 07:20 79 12 84 L Room Air 12/30/24 05:38 76 12/30/24 02:54 98.1 F 85 18 125/74 90 Room Air FiO2 12/30/24 07:46 12/30/24 07:44 12/30/24 07:20 21 12/30/24 05:38 12/30/24 02:54 PG Care Time/CCT Total # of Minutes Spent Total Time Spent with Patient: Total time spent is greater than 50% in coordination of care (as documented) at patient's floor/unit and/or counseling patient: Coding Level of Care Code 51302 SUB INP/OBS CARE 2/35MIN Diagnoses UTI (urinary tract infection) N39.0 Swelling of right knee M25.461 History of MRSA infection Z86.14 Recurrent cellulitis of lower extremity L03.119 Chronic venous stasis I87.8 Time Spent (min) 35
[2024-12-31 07:49] VITALS: BP 140/80; PULSE 76; RESP 18; TEMP 98.1; O2SAT 90
[2024-12-31] MEDS: RIVAROXABAN 20 MG TAB PO SCH (08:25)
[2024-12-31] MEDS: DAPTOmycin 600 MG in SYRINGE 0 ML IV SCH (08:34)
--- NOTE | 2024-12-31 10:09 | Discharge Summary ---
Date of Service December 31, 2024 Admission HPI Per Admitting Provider Mr. 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 He presented on 12/23 at the [facility] [place] for burning with urination. Patient reports he had a urine culture done 3 days ago which showed "significant resistance". Per the ED, this urine culture is not currently available test (will seek to obtain). Patient does endorse burning with uri nation, that has been worsening over the past 5 days. He also endorses fever, chills, and night sweats at home. While the patient does have chronic pain in both of his legs, he reports worsening pain in his right lower extremity compared to the left, as well as swelling in the right knee x 2-3 days. Patient denies any purulent drainage from the knee. Patient does have significant history of right knee infections. Patient's vitals are stable at time of admission. ED course: Meropenem 500 mg IV Daptomycin 1000 mg IV NSS 500 mL IV ROS: Patient endorses burning with urination x 5 days, fever, chills, night-sweats, swelling in the right knee, and worsening pain in the right leg. Patient denies chest pain, cough, SOB, abdominal pain, N/V/D, or numbness/tingling in the legs. Admission Exam (Per Admitting) Constitutional The patient is awake, alert and oriented 3, well developed and well nourished, normocephalic and atraumatic, lying in bed and in no acute distress. HEENT--PERRL, EOMI, mucous membranes and oropharynx mildly dry Neck--supple. No JVD. No bruits. Thyroid normal, trachea midline, no adenopathy . Heart--normal S1 and S2. No murmurs, rubs or gallops. Lungs--clear bilaterally, no respiratory distress, no accessory muscle use. Abdomen--normal bowel sounds and soft. Extremities--no cyanosis or clubbing. No edema. Dermatologic--normal skin turgor, normal color, no abnormal lymph nodes, no rash. Neurologic--cranial nerves II through XII grossly intact. Rheumatologic--normal range of motion. Psychiatric--normal affect. Discharge Data Consultations 12/23/24 17:39 ED Decision to Admit Stat 12/23/24 18:51 Consult Orthopedic Surgery Routine Hospital Course (1) UTI (urinary tract infection): (2) Swelling of right knee: (3) History of MRSA infection: (4) Recurrent cellulitis of lower extremity: (5) Chronic venous stasis: Plan Assessment & Plan (1) UTI (urinary tract infection): (2) Swelling of right knee: (3) History of MRSA infection: (4) Recurrent cellulitis of lower extremity: (5) Chronic venous stasis: Plan This patient is an 79-year-old male who presented on 12/23 for intermittent burning with urination. History of MDR infections (both UTI & skin/soft- tissue). Sent in by the CT for urine culture taken on 12/20 that was positive for bacteria with significant resistance. urine culture growing ESBL Also with suspected worsening right knee infection. Culture history: 12/2024: Proteus ESBL of the foot 12/23/2024: Proteus ESBL of the urine 11/25/2024: Foot Proteus ESBL 08/12/2024: Proteus ESBL urine 07/14/2024: Right foot. MRSA, VRE both Dapto sensitive. MRSA was Bactrim sensitive 03/2024: Right foot, VRE 05/2024: MRSA Staph aureus, right foot #Suspected MDR UTI patient does report he had fevers at home prior to arrival UA overtly infected appearing. UCx positive for ESBL Proteus. Blood cultures drawn on 12/23; no growth to date Most recent urine cultures on 07/22/24 and 08/12/24 grew Proteus mirabilis ESBL with significant resistance Contact isolation precautions Continue Ertapenem 1000mg IV q24h (started on 12/24) and IV Daptomycin 600mg Q 24h Anticipate 7-day course of treatment, last day 12/31/2024 Patient expresses a strong desire to return home when possible Per CM CT is not able to do auth for [facility] infusions, he does not want to go to [facility] either I anticipate he would be in the hospital till 12/31 #R knee swelling | recurrent bilateral lower extremity cellulitis | h/o right knee PJI and MRSA bacteremia On admission, was noted to have right knee swelling, No missed doses of his Bactrim prophylaxis -CT right knee shows effusion -he is status post arthrocentesis., With marked elevation of white blood cell, but no bacteria and no crystals On Bactrim p.o. 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 CRP elevated. Clinically progressing with adjunct daptomycin and on ertapenem for UTI as noted Orthopedics consulted for arthrocentesis, dry tap 12/24. Repeat tap 12/26 with marked elevation in white blood cell count suggestive of active infection. No gout/pseudogout crystals are seen completed Ertapenem and Daptomycin today, 12/31 -Resume home chronic suppressive abx with bactrim Foot Wounds Foot cultures have grown MRSA and ESBL in the past #Spells/Drowsiness | untreated LEONARD Patient has intermittent daytime drowsiness and falls asleep middle of conversations. This happens more frequently when sick/septic in the past DDx includes hypoventilation, narcolepsy, severe daytime hypersomnia from untreated LEONARD. Patient continues to "pass out" in the middle of conversations Has been hypercapnic in the past bicarb here 2731 recently. 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 Last echocardiogram on 09/03/2024 revealed LVEF at 50 to 55%; right ventricular dilation He has chronic peripheral edema and possible hepatic congestion Continue strict I&O monitoring, daily weights, low-sodium diet Continue Bumex, metoprolol #PAF | H/o Flutter-currently remains in sinus rhythm He has had significant issues with rapid a flutter and fibrillation in the past which was controlled with amiodarone Continue amiodarone, xarelto Monitor on telemetry #Iron deficiency anemia Chronic (baseline range 11-13); normocytic; stable No signs of active bleeding Continue iron supplements and anticoagulation Follow CBC #Depression/anxiety Continue with duloxetine, mirtazapine #GERD Continue PPI #Glaucoma Patient normally on Rocklatan HS (non-formulary) Latanoprost HS while inpatient #Myoclonic jerking Continue Keppra 500 mg BID #Idiopathic neuropathy Continue gabapentin 600mg TID Dose reduce gabapentin if rising creatinine level or if leads to exacerbation of myoclonus Disposition: discharge today VTE PPx: Xarelto Coding Level of Care Code 58590 INP/OBS DISCH >30 MIN Diagnoses UTI (urinary tract infection) N39.0 Swelling of right knee M25.461 History of MRSA infection Z86.14 Recurrent cellulitis of lower extremity L03.119 Chronic venous stasis I87.8 Time Spent (min) 35
== END 2024-12-31 10:42 | disposition home or self-care (01) | DRG 560 ==
LOC: ED 15:04 → SUATTDRO 18:56 → 2W 18:56

== ENCOUNTER 2025-01-16 12:18 | Inpatient (IN) ==
[2025-01-16 13:32] LABS: Alanine Aminotransferase 33 U/L (7-52); Albumin Globulin Ratio 0.9 (0.9-2); Alkaline Phosphatase 92 U/L (34-104); Anion Gap 7 (3-11); Bilirubin,Total 0.6 mg/dl (0.2-1.0); Blood Urea Nitrogen 37 mg/dl (6-23); Calcium 9.1 mg/dl (8.6-10.3); Carbon Dioxide 28 mmol/L (21-32); Chloride 101 mmol/L (98-107); Globulin 3.7 gm/dl (2.5-4.0); Glucose 79 mg/dl (70-99(Fasting)); Potassium 5.0 mmol/L (3.5-5.1); Sodium 136 mmol/L (136-145); Total Protein 7.2 gm/dl (6.0-8.3)
[2025-01-16 13:39] LABS: Hematocrit (blood only) 36.5 % (42.0-52.0); Hemoglobin 11.9 g/dl (14.0-18.0); Immature Granulocytes # (auto) 0.02 K/uL (0.01-0.20); Immature Granulocytes % (auto) 0.3 %; Mean Corpuscular Hemoglobin 31.0 pg (25.0-34.0); Mean Corpuscular Volume 95.1 fL (80.0-100.0); Platelet Count 291 K/uL (130-400); RDW Standard Deviation 57.1 fL (36.4-46.3); Red Blood Count 3.84 M/uL (4.70-6.10); White Blood Count 6.08 K/ul (4.8-10.8)
[2025-01-16 13:47] LABS: INR 1.4 (0.9-1.1); Partial Thromboplastin Time 44 Seconds (21-31); Prothrombin Time 15.2 Seconds (9.0-12.0)
--- NOTE | 2025-01-16 13:47 | XRay Report ---
XR chest 1V not portable CLINICAL HISTORY: Chest pain, nonspecific COMPARISON STUDY: 12/13/2024 FINDINGS: Heart size and pulmonary vasculature are normal. No consolidation or pleural effusion. No p neumothorax. IMPRESSION: No acute findings. ACT 112: Negative or not required by law. Electronically signed by: Brian Kim M.D. 01/16/2025 1:45 PM
[2025-01-16 14:35] LABS: Magnesium 2.2 mg/dl (1.7-2.4)
[2025-01-16 14:48] LABS: Thyroid Stimulating Hormone 5.329 uIu/ml (0.300-4.500)
[2025-01-16] MEDS: OPTIRAY 320 100ml IV ONE (15:18)
--- NOTE | 2025-01-16 15:23 | Emergency Department Note ---
Impression & Plan Hypotension, Pneumonia, Weakness, Fatigue, Right rib fracture, Falling, Infection of right knee ED Provider Note NAME: RAFY CHICAS AGE: 79 SEX: M : 1945 ARRIVES VIA: Ambulance INFORMANT: [Patient] ED PROVIDER(S): [Maxime Loomis MD] CHIEF COMPLAINT: Weak, respiratory problems HISTORY OF PRESENT ILLNESS: The patient is an 79-year-old male who was at the [facility] today with blood pressures in the 60s and 70s systolic. He has had several weeks of fatigue, weakness, sleepiness, he has fallen a few times. The patient states that he was told a few weeks ago that he might have pneumonia, apparently, he has had a cough. He was prescribed antibiotics however, they never arrived through the mail system. The patient has an ongoing infection in the right prosthetic knee. He is on Bactrim chronically. He believes his knee feels about at its typical baseline, it has not worsened lately. The patient denies any fever, vomiting or diarrhea. He is making urine without difficulty. He does admit that he is likely dehydrated, he does not drink enough. PMHx/PSHx/Social Hx: See Below PHYSICAL EXAM: Primary Survey Airway: Intact Breathing: Breath sounds equal bilaterally. No respiratory distress Circulation: Skin warm, capillary refill less than 2 seconds Disability: Pupils equal and reactive to light Motor Function: Moves all extremities. Sensory: No deficits Secondary Survey GEN: Well developed and well-nourished. Mucous membranes dry. HEAD: Normocephalic, atraumatic EYES: Pupils round and reactive to light, conjunctiva clear, extraocular movements intact ENT: No fluid in external acoustic canals, nares patent, oropharynx clear NECK: Midline trachea, no cervical spine tenderness HEART: Regular rate and rhythm LUNGS: Clear to auscultation bilaterally CHEST: Chest wall non-tender, there is an older appearing contusion to the right lateral lower chest/ribs. ABD: No contusions, soft, non-tender, no distention PELVIS: Stable to rock BACK: No step offs or deformities, T-L spine non tender EXT: Moving all extremities well, no gross deformities. He has braces/supports on both lower extremities. There is some subtle warmth with swelling of the right knee. NEURO: No focal motor deficits, no sensory deficits. Seems sleepy. DIFFERENTIAL DIAGNOSIS: Dehydration, anemia, electrolyte imbalance, bacteremia or sepsis, tickborne illness, rib fracture, among others. EMERGENCY DEPARTMENT PROCEDURES: C-spine was clinically cleared at 1600. MEDICAL DECISION MAKING: There is no leukocytosis. The patient is anemic however, this is a chronic issue. There is a normal platelet count. No bandemia. Sed rate is elevated at 90, his sed rate has been rising looking back at recent testing. INR was elevated, consistent with his Xarelto use. There was no renal failure or significant electrolyte abnormality. No worrisome liver enzyme elevation. ECG showed a normal sinus rhythm. No ST elevation. Cardiac enzyme testing x 1 was slightly elevated, this slight elevation has been documented with previous testing. Today's elevation may be secondary to cardiac injury versus mismatch from his weakness and fatigue. The TSH was slightly high, the T4 though was normal. Anaplasmosis and Babesia smears were negative. Lyme disease testing was negative. Chest x-ray did not show any pneumonia or obvious acute traumatic chest process. Chest CT does show 1 single rib fracture. He has a patchy diffuse groundglass pneumonia. On exam, the patient appeared clinically dehydrated. He was somewhat sleepy but moving all extremities, he answered questions well. He was not hypotensive while in our ED. The patient received IV saline, he was given IV meropenem as antibiotic coverage. The patient is in need of a hospital stay. He was hypotensive at the [facility]. He has an early pneumonia. He admits to fatigue, weakness, he has been falling. He has suffered at least 1 rib fracture based on our workup. Given the circumstances, hospitalization is indicated. I spoke with the case management team, I spoke with the patient. The on-call hospitalist was consulted. Prior/Outside records/notes reviewed: Today's EMS notes describing his presentation and transport to this hospital. ECG per my interpretation: Indication was weakness. The ECG shows a normal sinus rhythm with a rate of 68. There is a nonspecific intraventricular block. There is no ST elevation, no PVCs. The QTc is 438. Continuous Cardiac Monitoring per my interpretation: An order was placed for continuous cardiac monitoring. The monitor shows a rate of 66 with normal sinus rhythm. Imaging/x-ray results per my interpretation: Chest x-ray does not show pneumonia or CHF. Chronic Medical/Social conditions affecting care: Advanced age, ongoing chronic right prosthetic knee infection. Care/Management discussed with: Case management, the on-call hospitalist. Level of care consideration(s): After review of the information above and other included data: --I believe the patient requires escalation of care to admission Critical Care Note: I have personally spent 45 minutes of critical care time in the direct management of this patient. This includes bedside care, interpretation of diagnostic studies, and testing, discussion with consultants, patient, and family members, and other required patient management activities. This 45 minutes is in excess of all separately billable procedures. DISPOSITION: Admission Past Med/Surg History Problem List (Updated 01/16/25 @ 17:00 by Maxime Loomis MD) Infection of right knee (Acute) Falling (Acute) Right rib fracture (Acute) Fatigue (Acute) Weakness (Acute) Pneumonia (Acute) Hypotension (Acute) Rib fracture Anemia (Acute) Cellulitis (Acute) Swelling of right knee UTI (urinary tract infection) Skin tear of left upper extremity IPMN (intraductal papillary mucinous neoplasm) Open wound of left elbow (Acute) Cardiomyopathy Heart failure with improved ejection fraction (HFimpEF) Foot ulcer, right Somnolence Myoclonus Generalized weakness (Acute) Pneumonia (Acute) JEFFERY (acute kidney injury) Bilateral lower leg cellulitis Right upper lobe pneumonia Idiopathic peripheral neuropathy Spinal stenosis, lumbar region with neurogenic claudication HFrEF (heart failure with reduced ejection fraction) Transaminitis Venous stasis ulcers of both lower extremities Non-pressure chronic ulcer of other part of left foot limited to breakdown of skin Non-pressure chronic ulcer of other part of right foot limited to breakdown of skin Peripheral arterial disease (Chronic) Pressure ulcer of right foot, stage 3 Chronic diastolic heart failure History of MRSA infection Recurrent cellulitis of lower extremity (Acute) Polyneuropathy Depression Atrial flutter (Acute) Atrial fibrillation with RVR Open wound of knee (Acute) Venous ulcers of both lower extremities (Acute) Pain associated with wound Back pain VRE bacteremia Anemia (Acute) Hypomagnesemia (Acute) Bilateral cellulitis of lower leg (Acute) Peripheral neuropathy Chronic venous stasis Cellulitis of both feet (Acute) Rheumatoid arthritis Open wound of foot Chronic wound (Acute) Lymphangitis of lower extremity Hypomagnesemia (Acute) Open wound of left arm with tendon injury Gram-negative bacteremia Cellulitis of right lower extremity (Acute) Generalized weakness (Acute) Acute kidney injury superimposed on chronic kidney disease (Acute) Skin tear of right upper extremity (Acute) Open wound of left foot (Acute) Open wound of right foot (Acute) Venous ulcer of left leg (Acute) Traumatic open wound of right lower leg (Acute) Dislocation, hip closed (Acute) Rotator cuff arthropathy of both shoulders Left shoulder pain Acquired foot deformity (Chronic) Traumatic wound (Acute) Pressure ulcer of left foot, stage 3 (Acute) Abnormal ankle brachial index (Acute) Cervical radiculopathy Neuropathy Constipation Rhabdomyolysis MRSA infection Visual disturbance Hyponatremia Hypotension Abdominal wall abscess (Acute) HFrEF (heart failure with reduced ejection fraction) EF 40% Mar 2022, improved 55-60% August 2022 Lumbar stenosis Osteoarthritis of right knee Anxiety and depression Hypertension Coronary artery disease Atherogenic dyslipidemia Lumbar radiculopathy Lower extremity weakness Degenerative spondylolisthesis Chronic low back pain Scoliosis of lumbar region due to degenerative disease of spine in adult Septic joint of right knee joint Incisional hernia Adjustment disorder with mixed anxiety and depressed mood Medical History Complicated urinary tract infection Infection of prosthetic right knee joint Obstructive sleep apnea Obesity hypoventilation syndrome Atelectasis Elevated brain natriuretic peptide (BNP) level Bronchitis due to human metapneumovirus (hMPV) Infection due to human metapneumovirus (hMPV) Cough History of infection of total joint prosthesis of knee Weakness MRSA bacteremia Hypoxia Hypotension Hyperkalemia Lethargy Ischemic ulcer of left foot Ischemic ulcer of right foot Bilateral lower leg cellulitis PVD (peripheral vascular disease) Atrial flutter with rapid ventricular response Open wound of left lower extremity Sepsis Infected hardware in right leg Chronic infection of right knee Venous ulcer of right leg History of immunosuppressive therapy Heart failure with preserved ejection fraction GERD (gastroesophageal reflux disease) Septicemia due to Streptococcus pneumoniae Respiratory failure with hypoxia Hypomagnesemia Pneumonia Benign essential hypertension Lumbar stenosis Hx of staphylococcal infection 03/2022, w/"bacterial infection" at the same, in the rt. knee, occurrred during atrial fibrillation episode. "when he woke up, he couldn't walk." Atrial fibrillation episode occurred in 03/2022, taken to [facility], admitted to ICU for 1-2 weeks (was not intubated, but wasn't "awake either"), then to cardiac unit, then to rehab at [facility]; f/u dr. guerra in [place]>will be starting to see a chemical analytical sampler at [facility] 2nd week of 08/2022 Myocardial Infarction "a silent one, 2019" Sleep apnea no device Surgical History Status post revision of total replacement of right knee Hx of Achilles tendon repair rt. Hx of knee surgery rt. patellar tendon repair Hx of rotator cuff surgery bilateral Hx of total knee replacement lt. Hx of total hip arthroplasty rt. History of colostomy reversal History of bowel resection for diverticulitis; w/colostomy placement for 3-4 months Hx of hernia repair near former colostomy site History of esophagogastroduodenoscopy (EGD) Hx of colonoscopy Last Colonoscopy 08/14/22, repeat 3 years in 2025 Hx of bilateral cataract extraction History of heart artery stent ~3 years ago, x2 stents, done in [place]; f/u dr guerra, [place]>will be seeing new cardio at [place] 2nd week of August 2022. History of cardiac cath ~3 years ago, SOB and "felt like throat was constricting", had "silent heart attack", x2 stents, done in [place] Family History Grandmother (Maternal) Diabetes Daughter Diabetes Father Suicide Hypertension Denies family history of Ovarian cancer Prostate cancer Myocardial infarction Breast cancer Lung cancer Colorectal cancer Stroke Social History Smoking Status: Never smoker Second Hand Exposure: No; Do You Dip or Chew Tobacco: No; Hx Alcohol Use: Yes Alcohol type: wine Alcohol Intake Frequency: 4 or More x per/Week Hx Substance Use: No Preferred Language: Greek Communication Ability: Effective Visual Impairment: Limited Hearing Ability: Normal Designated Broker Required: No Beliefs That Will Affect Care: None marital status: Single Current Living Situation: Alone Current Living Situation Comment: Independant living at [facility] current occupational status: retired How many Children do You have: 2 Feels Safe at Home: Yes Childhood Exposure to Second-Hand Smoke: Yes Diet: regular caffeine: Yes Dental Care, Regularly: Yes Physical Activity Frequency: Does not Exercise Seatbelt Use: always Sunscreen Use: Yes Assistive Devices: Wheelchair Allergies Allergies Allergy/AdvReac Type Severity Reaction Status Date / Time cat dander Allergy Severe CAT Verified 01/06/25 09:44 HAIR---Swelling of Lip/Tongue/Throat Home Meds Home Medications Medication Instructions Recorded Confirmed aspirin 81 mg tablet,delayed 81 mg PO QAM 08/07/22 01/03/25 release (Adult Low Dose Aspirin) rivaroxaban 20 mg tablet (Xarelto) 20 mg PO DAILY 11/19/23 01/03/25 sennosides 8.6 mg tablet 8.6 mg PO .EVERY 24 HOURS PRN 12/15/23 01/03/25 Constipation mirtazapine 30 mg tablet 30 mg PO HS 01/21/24 01/03/25 nitroglycerin 0.4 mg sublingual 0.4 mg sublingual DIRECTED PRN 01/21/24 01/03/25 tablet chest pin diclofenac sodium 1 % topical gel 2 g topical Q6 PRN Shoulder Pain 07/22/24 01/03/25 melatonin 3 mg tablet 6 mg PO HS 07/22/24 01/03/25 multivitamin 1 tab PO DAILY 07/22/24 01/03/25 tamsulosin 0.4 mg capsule 0.4 mg PO HS 07/22/24 01/03/25 folic acid 1 mg tablet 1 mg PO DAILY 08/12/24 01/03/25 omeprazole 20 mg capsule,delayed 20 mg PO DAILY 08/12/24 01/03/25 release thiamine HCl (vitamin B1) 100 mg 100 mg PO DAILY 08/12/24 01/03/25 tablet acetaminophen 325 mg tablet 650 mg PO Q6 PRN TEMP > 100.4 10/26/24 01/03/25 (Tylenol) cholecalciferol (vitamin D3) 25 25 mcg PO DAILY 10/26/24 01/03/25 mcg (1,000 unit) tablet (Vitamin D3) cyanocobalamin (vitamin B-12) 1,000 mcg PO DAILY 10/26/24 01/03/25 1,000 mcg tablet lactase 3,000 unit tablet (Lactaid) 3,000 unit PO DAILY 10/26/24 01/03/25 metoprolol succinate 25 mg 12.5 mg PO DAILY 10/26/24 01/03/25 tablet,extended release 24 hr omega-3 fatty acids 1,000 mg 1,000 mg PO QPM 10/26/24 01/03/25 capsule gabapentin 100 mg capsule 600 mg PO TID 11/14/24 01/03/25 netarsudil 0.02 %-latanoprost 1 drp ophthalmic (eye) DIRECTED 11/14/24 01/03/25 0.005 % eye drops (Rocklatan) duloxetine 30 mg capsule,delayed 90 mg PO DAILY 11/25/24 01/03/25 release sprinkle Previous Rx's Medication Instructions Recorded ferrous sulfate 325 mg (65 mg 325 mg PO DAILY #90 tabs 05/11/24 iron) tablet budesonide 0.5 mg/2 mL suspension 0.5 mg (2 mL) NEB BIDR #60 mL 10/28/24 for nebulization bumetanide 1 mg tablet 0.5 mg (1/2 x 1 mg) PO QAM #15 tabs 10/28/24 formoterol fumarate 20 mcg/2 mL 20 mcg (2 mL) NEB BIDR #120 mL 10/28/24 solution for nebulization (Perforomist) ipratropium 0.5 mg-albuterol 3 mg 3 ml NEB Q6R PRN shortness of 10/28/24 (2.5 mg base)/3 mL nebulization breath or wheezing #90 mL soln amiodarone 200 mg tablet 200 mg PO QAM #90 tabs 12/02/24 sulfamethoxazole 800 1 tab PO BID #90 tabs 12/31/24 mg-trimethoprim 160 mg tablet (Bactrim DS) levetiracetam 500 mg tablet 500 mg PO BID 90 days #180 tabs 01/03/25 (Keppra) Results & Data (ED) Vital Signs Vital Signs - 24 hr 01/16/25 12:24 01/16/25 14:33 01/16/25 14:39 Temperature 36.3 C L Temperature Source Temporal Artery Scan Pulse Rate 73 69 Pulse Rate [Apical] Pulse Rate from SpO2 Sensor Respiratory Rate 25 H 19 Respiratory Effort / Characteristics Respiratory Depth Blood Pressure 111/69 109/64 Blood Pressure [Right Arm] Blood Pressure Mean 83 75 Blood Pressure Mean [Right Arm] Blood Pressure Position [Right Arm] Pulse Oximetry 93 Oxygen Delivery Method Room Air Sepsis Recent Fever Within 48 Hours No Sepsis New/Unexplained Change in Mental Status N/A Sepsis Action Taken by Nursing No Action Required 01/16/25 14:52 01/16/25 15:00 01/16/25 15:00 Temperature Temperature Source Pulse Rate Pulse Rate [Apical] 71 Pulse Rate from SpO2 Sensor Respiratory Rate 20 Respiratory Effort / Characteristics Non-Labored Spontaneous Respiratory Depth Normal Blood Pressure 113/68 113/68 Blood Pressure [Right Arm] 109/64 Blood Pressure Mean 93 93 Blood Pressure Mean [Right Arm] 79 Blood Pressure Position [Right Arm] Lying Pulse Oximetry 93 Oxygen Delivery Method Room Air Sepsis Recent Fever Within 48 Hours Sepsis New/Unexplained Change in Mental Status Sepsis Action Taken by Nursing 01/16/25 15:09 01/16/25 15:23 01/16/25 15:27 Temperature Temperature Source Pulse Rate 66 62 74 Pulse Rate [Apical] Pulse Rate from SpO2 Sensor 69 Respiratory Rate 18 23 Respiratory Effort / Characteristics Respiratory Depth Blood Pressure 113/68 Blood Pressure [Right Arm] Blood Pressure Mean 83 Blood Pressure Mean [Right Arm] Blood Pressure Position [Right Arm] Pulse Oximetry 96 Oxygen Delivery Method Sepsis Recent Fever Within 48 Hours Sepsis New/Unexplained Change in Mental Status Sepsis Action Taken by Nursing 01/16/25 15:28 01/16/25 15:30 01/16/25 15:31 Temperature Temperature Source Pulse Rate 70 Pulse Rate [Apical] Pulse Rate from SpO2 Sensor 70 Respiratory Rate 19 Respiratory Effort / Characteristics Respiratory Depth Blood Pressure 92/57 L 113/55 L Blood Pressure [Right Arm] Blood Pressure Mean 63 71 Blood Pressure Mean [Right Arm] Blood Pressure Position [Right Arm] Pulse Oximetry 95 Oxygen Delivery Method Sepsis Recent Fever Within 48 Hours Sepsis New/Unexplained Change in Mental Status Sepsis Action Taken by Nursing 01/16/25 15:31 01/16/25 15:31 Temperature Temperature Source Pulse Rate 70 Pulse Rate [Apical] Pulse Rate from SpO2 Sensor Respiratory Rate 20 Respiratory Effort / Characteristics Respiratory Depth Blood Pressure 113/55 L 113/55 L Blood Pressure [Right Arm] Blood Pressure Mean 71 71 Blood Pressure Mean [Right Arm] Blood Pressure Position [Right Arm] Pulse Oximetry 93 Oxygen Delivery Method Sepsis Recent Fever Within 48 Hours Sepsis New/Unexplained Change in Mental Status Sepsis Action Taken by Care Home Medications Current Medication List: was personally reviewed by me Laboratory Data Attestation: I reviewed the patient's lab results. 01/16/25 12:40 01/16/25 12:40 Lab Results 01/16/25 01/16/25 01/16/25 Range/Units 12:40 14:40 15:46 WBC 6.08 (4.8-10.8) K/ul RBC 3.84 L (4.70-6.10) M/uL Hgb 11.9 L (14.0-18.0) g/dl Hct 36.5 L (42.0-52.0) % MCV 95.1 (80.0-100.0) fL MCH 31.0 (25.0-34.0) pg MCHC 32.6 (32.0-36.0) g/dL RDW Std Deviation 57.1 H (36.4-46.3) fL RDW Coeff of Sammie 16.5 H (11.5-14.5) % Plt Count 291 (130-400) K/uL MPV 9.5 (9.4-12.4) fL Immature Gran % (Auto) 0.3 % Neut % (Auto) 68.3 % Lymph % (Auto) 11.2 % Dickey % (Auto) 13.5 % Eos % (Auto) 6.4 % Baso % (Auto) 0.3 % Neut # (Auto) 4.15 (1.40-6.50) K/uL Lymph # (Auto) 0.68 L (1.20-3.40) K/uL Dickey # (Auto) 0.82 H (0.11-0.59) K/uL Eos # (Auto) 0.39 (0.00-0.50) K/uL Baso # (Auto) 0.02 (0.00-0.20) K/uL Immature Gran # (Auto) 0.02 (0.01-0.20) K/uL ESR 90 H (0-20) mm/hr PT 15.2 H (9.0-12.0) Seconds INR 1.4 H (0.9-1.1) APTT 44 H (21-31) Seconds PTT Ratio 1.6 VBG pH (7.36-7.41) VBG pCO2 (38-50) mmHg VBG pO2 mmHg VBG HCO3 mmol/L VBG O2 Saturation % VBG Base Excess mEq/L Sodium 136 (136-145) mmol/L Potassium 5.0 (3.5-5.1) mmol/L Chloride 101 (98-107) mmol/L Carbon Dioxide 28 (21-32) mmol/L Anion Gap 7 (3-11) BUN 37 H (6-23) mg/dl Creatinine 1.40 (0.6-1.4) mg/dl Est Cr Clr Drug Dosing Not Reportable eGFR 50.49 BUN/Creatinine Ratio 26.4 H (10-20) Glucose 79 (70-99(Fasting)) mg/dl Lactate 1.3 (0.4-2.0) mmol/L Calcium 9.1 (8.6-10.3) mg/dl Magnesium 2.2 (1.7-2.4) mg/dl Total Bilirubin 0.6 (0.2-1.0) mg/dl AST 50 H (13-39) U/L ALT 33 (7-52) U/L Alkaline Phosphatase 92 (34-104) U/L Troponin I High Sens 21.7 H 18.4 (0-20) pg/ml C-Reactive Protein 15.44 H (0-0.5) mg/dl B-Natriuretic Peptide 252 H (0-100) pg/ml Total Protein 7.2 (6.0-8.3) gm/dl Albumin 3.5 (3.4-5.0) gm/dl Globulin 3.7 (2.5-4.0) gm/dl Albumin/Globulin Ratio 0.9 (0.9-2) Procalcitonin 0.19 (0-0.5) ng/ml TSH 5.329 H (0.300-4.500) uIu/ml Free T4 1.13 (0.61-1.60) ng/dl Anaplasma Smear See Comment Babesia Smear See Comment Lyme Disease Screen Negative (Negative) 01/16/25 Range/Units 16:26 WBC (4.8-10.8) K/ul RBC (4.70-6.10) M/uL Hgb (14.0-18.0) g/dl Hct (42.0-52.0) % MCV (80.0-100.0) fL MCH (25.0-34.0) pg MCHC (32.0-36.0) g/dL RDW Std Deviation (36.4-46.3) fL RDW Coeff of Sammie (11.5-14.5) % Plt Count (130-400) K/uL MPV (9.4-12.4) fL Immature Gran % (Auto) % Neut % (Auto) % Lymph % (Auto) % Dickey % (Auto) % Eos % (Auto) % Baso % (Auto) % Neut # (Auto) (1.40-6.50) K/uL Lymph # (Auto) (1.20-3.40) K/uL Dickey # (Auto) (0.11-0.59) K/uL Eos # (Auto) (0.00-0.50) K/uL Baso # (Auto) (0.00-0.20) K/uL Immature Gran # (Auto) (0.01-0.20) K/uL ESR (0-20) mm/hr PT (9.0-12.0) Seconds INR (0.9-1.1) APTT (21-31) Seconds PTT Ratio VBG pH 7.33 L (7.36-7.41) VBG pCO2 51 H (38-50) mmHg VBG pO2 33 mmHg VBG HCO3 27 mmol/L VBG O2 Saturation < 60.0 % VBG Base Excess 0.2 mEq/L Sodium (136-145) mmol/L Potassium (3.5-5.1) mmol/L Chloride (98-107) mmol/L Carbon Dioxide (21-32) mmol/L Anion Gap (3-11) BUN (6-23) mg/dl Creatinine (0.6-1.4) mg/dl Est Cr Clr Drug Dosing eGFR BUN/Creatinine Ratio (10-20) Glucose (70-99(Fasting)) mg/dl Lactate (0.4-2.0) mmol/L Calcium (8.6-10.3) mg/dl Magnesium (1.7-2.4) mg/dl Total Bilirubin (0.2-1.0) mg/dl AST (13-39) U/L ALT (7-52) U/L Alkaline Phosphatase (34-104) U/L Troponin I High Sens (0-20) pg/ml C-Reactive Protein (0-0.5) mg/dl B-Natriuretic Peptide (0-100) pg/ml Total Protein (6.0-8.3) gm/dl Albumin (3.4-5.0) gm/dl Globulin (2.5-4.0) gm/dl Albumin/Globulin Ratio (0.9-2) Procalcitonin (0-0.5) ng/ml TSH (0.300-4.500) uIu/ml Free T4 (0.61-1.60) ng/dl Anaplasma Smear Babesia Smear Lyme Disease Screen (Negative) Administered Medications Discontinued Medications Ioversol (Optiray 320 100ml) 96 ml IV ONCE ONE Stop: 01/16/25 15:18 Last Admin: 01/16/25 15:18 Dose: 96 ml Documented By: DAILY Imaging Data Radiologist's Impression: Chest X-Ray 01/16/25 12:30 XR chest 1V not portable CLINICAL HISTORY: Chest pain, nonspecific COMPARISON STUDY: 12/13/2024 FINDINGS: Heart size and pulmonary vasculature are normal. No consolidation or pleural effusion. No pneumothorax. IMPRESSION: No acute findings. ACT 112: Negative or not required by law. Electronically signed by: Brian Kim M.D. 01/16/2025 1:[address] 01/16/25 14:[address] WITH CONTRAST CT DOSE: 955.93 mGy.cm HISTORY: weak, cough, fall right ribs TECHNIQUE: Multiaxial CT images of the chest were performed following the IV administration of 100 cc of Optiray. A dose lowering technique was utilized adhering to the principles of ALARA. COMPARISON STUDY: 10/26/2024 FINDINGS: There are trace airway secretions. Stable calcified granuloma in the right lung. There are a few interval scattered small areas of patchy groundglass opacity in both lungs, largest lateral left upper lobe series 4 image 144. These have morphology suggesting infectious/inflammatory etiology. There is stable mild scarring or atelectasis in the dependent lung bases. No other pulmonary consolidation or pleural effusion. No pneumothorax. No mediastinal hematoma or evidence of thoracic aortic injury. No pericardial effusion. There is a nondisplaced fracture anterior right sixth rib which could be acute. There is an old appearing fracture anterior right second rib. No acute displaced rib fractures seen. There are diffuse degenerative changes at the thoracic spine. IMPRESSION: 1. Acute nondisplaced fracture anterior right sixth rib with no pneumothorax, pulmonary contusion, or pleural effusion. 2. Scattered mild areas of groundglass opacity have morphology consistent with acute pneumonitis or early pneumonia. 3. No other acute findings seen. ACT 112: Negative or not required by law. Electronically signed by: Brian Kim M.D. 01/16/2025 3:38 PM Discharge Plan Visit Data Chief Complaint: Respiratory Problems ED Provider: Maxime Loomis Discharge Problem: Hypotension, Pneumonia, Weakness, Fatigue, Right rib fracture, Falling, Infection of right knee Patient Disposition: Admitted As Inpatient Condition: Fair Forms Stand Alone Forms: My [facility] Prescriptions Prescriptions: No Action ferrous sulfate 325 mg (65 mg iron) tablet 325 mg PO DAILY Qty: 90 3RF amiodarone 200 mg tablet 200 mg PO QAM Qty: 90 3RF gabapentin 100 mg capsule 600 mg PO TID Rocklatan 0.02-0.005 % drops 1 drp ophthalmic (eye) DIRECTED levetiracetam [Keppra] 500 mg tablet 500 mg PO BID 90 Days Qty: 180 11RF Xarelto 20 mg tablet 20 mg PO DAILY Rx Instructions: start 3 days after last eliquis dose. aspirin [Adult Low Dose Aspirin] 81 mg tablet,delayed release (DR/EC) 81 mg PO QAM Hold Instructions: Resume on 02/23/23. until PCP/surgery followup nitroglycerin 0.4 mg Tablet, Sublingual 0.4 mg sublingual DIRECTED PRN (Reason: chest pin) Rx Instructions: GIVE 1 TABLET SUBLINGUALLY NEEDED FOR CHEST PAIN. MAY REPEAT DOSE EVERY 5 MINUTES FOR A TOTAL OF 3 DOSES..IF NO RELIEF CALL 911 mirtazapine 30 mg tablet 30 mg PO HS tamsulosin 0.4 mg capsule 0.4 mg PO HS multivitamin Tablet 1 tab PO DAILY melatonin 3 mg Tablet 6 mg PO HS diclofenac sodium 1 % Gel 2 g topical Q6 PRN (Reason: Shoulder Pain) thiamine HCl (vitamin B1) 100 mg Tablet 100 mg PO DAILY omeprazole 20 mg Capsule,Delayed Release(Dr/Ec) 20 mg PO DAILY folic acid 1 mg Tablet 1 mg PO DAILY cholecalciferol (vitamin D3) [Vitamin D3] 25 mcg (1,000 unit) Tablet 25 mcg PO DAILY cyanocobalamin (vitamin B-12) 1,000 mcg Tablet 1,000 mcg PO DAILY metoprolol succinate 25 mg Tablet Extended Release 24 Hr 12.5 mg PO DAILY lactase [Lactaid] 3,000 unit Tablet 3,000 unit PO DAILY omega-3 fatty acids 1,000 mg Capsule 1,000 mg PO QPM acetaminophen [Tylenol] 325 mg Tablet 650 mg PO Q6 MDD 3G PRN (Reason: TEMP > 100.4) formoterol fumarate [Perforomist] 20 mcg/2 mL Solution For Nebulization 20 mcg NEB BIDR Qty: 120 0RF ipratropium-albuterol 0.5 mg-3 mg(2.5 mg base)/3 mL Solution For Nebulization 3 ml NEB Q6R PRN (Reason: shortness of breath or wheezing) Qty: 90 0RF budesonide 0.5 mg/2 mL Suspension For Nebulization 0.5 mg NEB BIDR Qty: 60 0RF bumetanide 1 mg tablet 0.5 mg PO QAM Qty: 15 0RF duloxetine 30 mg capsule, delayed rel sprinkle 90 mg PO DAILY sulfamethoxazole-trimethoprim [Bactrim DS] 800-160 mg tablet 1 tab PO BID Qty: 90 0RF Rx Instructions: give 3 days/wk (alternating days) sennosides 8.6 mg Tablet 8.6 mg PO .EVERY 24 HOURS PRN (Reason: Constipation) Referrals Referrals: Danny Soliman DO [Primary Care Provider] - Discharge Problem: Hypotension Qualifiers: Hypotension type: unspecified hypotension type Qualified Code(s): I95.9 - Hypotension, unspecified Pneumonia Qualifiers: Pneumonia type: due to unspecified organism Laterality: unspecified laterality Lung location: unspecified part of lung Qualified Code(s): J18.9 - Pneumonia, unspecified organism Fatigue Qualifiers: Fatigue type: unspecified Qualified Code(s): R53.83 - Other fatigue Right rib fracture Qualifiers: Encounter type: initial encounter Rib fracture type: single rib Fracture type: closed Qualified Code(s): S22.31XA - Fracture of one rib, right side, initial encounter for closed fracture
--- NOTE | 2025-01-16 15:40 | CT Scan Report ---
CHEST CT WITH CONTRAST CT DOSE: 955.93 mGy.cm HISTORY: weak, cough, fall right ribs TECHNIQUE: Multiaxial CT images of the chest were performed following the IV administration of 100 cc of Optiray. A dose lowering technique was utilized adhering to the principles of ALARA. COMPARISON STUDY: 10/26/2024 FINDINGS: There are trace airway secretions. Stable calcified granuloma in the right lung. There are a few interval scattered small areas of patchy groundglass opacity in both lungs, largest lateral lef t upper lobe series 4 image 144. These have morphology suggesting infectious/inflammatory etiology. T here is stable mild scarring or atelectasis in the dependent lung bases. No other pulmonary consolida tion or pleural effusion. No pneumothorax. No mediastinal hematoma or evidence of thoracic aortic inj ury. No pericardial effusion. There is a nondisplaced fracture anterior right sixth rib which could b e acute. There is an old appearing fracture anterior right second rib. No acute displaced rib fractur es seen. There are diffuse degenerative changes at the thoracic spine. IMPRESSION: 1. Acute nondisplaced fracture anterior right sixth rib with no pneumothorax, pulmonary contusion, or pleural effusion. 2. Scattered mild areas of groundglass opacity have morphology consistent with acute pneumonitis or e asim pneumonia. 3. No other acute findings seen. ACT 112: Negative or not required by law. Electronically signed by: Brian Kim M.D. 01/16/2025 3:38 PM
--- NOTE | 2025-01-16 16:28 | History & Physical Report ---
Date of Service January 16, 2025 Assessment & Plan (1) Weakness: (2) Pneumonia: (3) Chronic infection of right knee: (4) History of immunosuppressive therapy: (5) Heart failure with preserved ejection fraction: (6) Rib fracture: (7) Obstructive sleep apnea: Plan This is an 79 year old gentleman with past medical history of CHF, RA, CAD, A fib, chronic wounds who presented to the ED on 01/16 after [facility] and [facility]. While in the ED, he had a stable CBC and BMP. His CRP was elevated at 115.44, ESR elevated at 90. Procal was negative. Tick panel negative. Troponin was mildly elevated at 21.7 w/ a repeat negative. TSH mildly elevated at 5.329 w/ a normal free T4. BNP elevated at 252 VBGs w/ ph of 7.33, pCO2 51, HCO3 27. CXR negative. Chest CT showing pneumonitis vs pneumonia and an acute nondisplaced right 6th rib fracture. #Weakness with ongoing weakness for ~ 2 weeks outpatient. Has a history of nonproductive cough as well. No fevers, lungs sound relatively clear on admission, no productive sputum --> unsure whether clinical picture is consistent w/ pneumonia. CXR negative Chest CT: concern for pneumonitis vs early pneumonia, acute nondisplaced right 6th rib fracture. CBC/BMP stable Procal negative; lactate WNL. Inflammatory markers elevated - ESR 90, CRP 15.44 Troponin initially elevated at 21.9 but repeat WNL at 18.4. --> minimal elevation secondary to demand ischemia from underlying infection. TSH mildly elevated at 5.329 w/ normal free T4 --> recommend repeat in 4-6 weeks outpatient Tick panel negative Pending labs: urinalysis; Blood cultures; respiratory Biofire, left foot wound culture given hx of MRSA infection. s/p IV Meropenem in ED; s/p 1L NSS - caution given hx of CHF. Continue IV Meropenem, add Linezolid x 48 hours empiric therapy --> tailor based as cultures return. PT/OT consulted, appreciate recommendations. #Acute rib fracture Limited history secondary to lethargy but did not complain of CP or recent fall Tylenol prn for pain Incentive spirometer, flutter valve. #Drowsiness/untreated LEONARD Patient has intermittent daytime drowsiness and falls asleep middle of conversations. This happens more frequently when sick/septic in the past DDx includes hypoventilation, narcolepsy, severe daytime hypersomnia from untreated LEONARD. 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 Recent arthrocentesis w/ no bacteria or crystals Hold Bactrim suppressive therapy while on IV abx here. #CHF Most recent echo 09/03/2024: EF 50-55%; RV dilation Hold Bumex until hypotension resolves & patient is clinically better. Continue Metoprolol #A fib/flutter In sinus at time of admission. Continue Amiodarone, Xarelto & Metoprolol #Iron Deficiency anemia hgb 11.9 on admission, within baseline of 11-12 Continue to monitor, check iron in AM. #Depression/anxiety - Continue Duloxetine, mirtazapine #GERD - PPI #myoclonic jerking - Keppra #Neuropathy - gabapentin DVT prophylaxis: Xarelto Code: full Case discussed w/ Dr. Membreno at time of admission. History of Present Illness Primary Care Provider: Danny Soliman DO This is an 79 year old gentleman with past medical history of CHF, RA, CAD, A fib, chronic wounds who presented to the ED on 01/16 after being referred to the ER after the [facility] for weakness and hypotension. [place] was seen and examined this afternoon. He was lethargic & sleeping at time of encounter but was able to be aroused. History was limited secondary to this. He reports that he has had ongoing weakness for about 2 weeks. He has also had a cough during this period of time. He reports his cough is nonproductive. He denies any worsening shortness of breath. He denies any chest pain. He states that his Lower wounds needs addressed because he missed his most recent wound clinic appointment secondary to not having a ride. He denies any fevers or chills at home. he denies any n/v/changes in bowel habits. denies any urinary symptoms. While in the ED, he had a stable CBC and BMP. His CRP was elevated at 115.44, ESR elevated at 90. Procal was negative. Tick panel negative. Troponin was mildly elevated at 21.7 w/ a repeat negative. TSH mildly elevated at 5.329 w/ a pending free T4. VBGs w/ ph of 7.33, pCO2 51, HCO3 27. CXR negative. Chest CT showing pneumonitis vs pneumonia and an acute nondisplaced right 6th rib fracture. Allergies Allergy/AdvReac Type Severity Reaction Status Date / Time cat dander Allergy Severe CAT Verified 01/16/25 17:44 HAIR---Swelling of Lip/Tongue/Throat Home Medications Medication Instructions Recorded Confirmed Type aspirin 81 mg tablet,delayed 81 mg PO QAM 08/07/22 01/16/25 History release (Adult Low Dose Aspirin) rivaroxaban 20 mg tablet (Xarelto) 20 mg PO DAILY 11/19/23 01/16/25 History sennosides 8.6 mg tablet 8.6 mg PO .EVERY 24 HOURS PRN 12/15/23 01/16/25 History Constipation mirtazapine 30 mg tablet 30 mg PO HS 01/21/24 01/16/25 History nitroglycerin 0.4 mg sublingual 0.4 mg sublingual DIRECTED PRN 01/21/24 01/16/25 History tablet chest pin diclofenac sodium 1 % topical gel 2 g topical Q6 PRN Shoulder Pain 07/22/24 01/16/25 History melatonin 3 mg tablet 6 mg PO HS 07/22/24 01/16/25 History multivitamin 1 tab PO DAILY 07/22/24 01/16/25 History tamsulosin 0.4 mg capsule 0.4 mg PO HS 07/22/24 01/16/25 History folic acid 1 mg tablet 1 mg PO DAILY 08/12/24 01/16/25 History omeprazole 20 mg capsule,delayed 20 mg PO DAILY 08/12/24 01/16/25 History release thiamine HCl (vitamin B1) 100 mg 100 mg PO DAILY 08/12/24 01/16/25 History tablet acetaminophen 325 mg tablet 650 mg PO TID PRN TEMP > 100.4 10/26/24 01/16/25 History (Tylenol) omega-3 fatty acids 1,000 mg 1,000 mg PO QPM 10/26/24 01/16/25 History capsule ipratropium 0.5 mg-albuterol 3 mg 3 ml NEB Q6R PRN shortness of 10/28/24 01/16/25 Rx (2.5 mg base)/3 mL nebulization breath or wheezing #90 mL soln netarsudil 0.02 %-latanoprost 1 drp ophthalmic (eye) DIRECTED 11/14/24 01/16/25 History 0.005 % eye drops (Rocklatan) duloxetine 30 mg capsule,delayed 60 mg PO QAM 11/25/24 01/16/25 History release sprinkle amiodarone 200 mg tablet 200 mg PO QAM #90 tabs 12/02/24 01/16/25 Rx levetiracetam 500 mg tablet 500 mg PO BID 90 days #180 tabs 01/03/25 01/16/25 Rx (Keppra) Lactobacillus acidophilus 1 tab PO DAILY 01/16/25 01/16/25 History arginine 7 gram-glutamine 7 1 ea PO BID 01/16/25 01/16/25 History gram-calcium HMB 1.5 gram oral powder pack (Dom) budesonide 0.5 mg/2 mL suspension 0 mg NEB BIDR 01/16/25 01/16/25 History for nebulization bumetanide 0.5 mg tablet 0.5 mg PO DAILY 01/16/25 01/16/25 History cholecalciferol (vitamin D3) 10 20 mcg PO DAILY 01/16/25 01/16/25 History mcg (400 unit) tablet (Vitamin D3) cyanocobalamin (vitamin B-12) 500 500 mcg PO DAILY 01/16/25 01/16/25 History mcg lozenges (Vitamin B-12) duloxetine 30 mg capsule,delayed 30 mg PO QPM 01/16/25 01/16/25 History release sprinkle ferrous sulfate 325 mg (65 mg 0 mg PO DAILY 01/16/25 01/16/25 History iron) tablet food supplemt, lactose-reduced 1 ea PO DAILY 01/16/25 01/16/25 History (Ensure oral liquid) formoterol fumarate 20 mcg/2 mL 0 mcg NEB BIDR 01/16/25 01/16/25 History solution for nebulization (Perforomist) gabapentin 600 mg tablet 600 mg PO TID 01/16/25 01/16/25 History menthol 0.44 %-zinc oxide 20.6 % 1 applic topical BID Skin 01/16/25 01/16/25 History topical ointment (Calmoseptine) Irritation metoprolol succinate 50 mg 25 mg PO DAILY 01/16/25 01/16/25 History tablet,extended release 24 hr pravastatin 40 mg tablet 40 mg PO HS 01/16/25 01/16/25 History sacubitril 24 mg-valsartan 26 mg 1 tab PO BID 01/16/25 01/16/25 History tablet (Entresto) sodium chloride 0.65 % nasal spray 1 spray intranasal BID PRN Dry nose 01/16/25 01/16/25 History aerosol sulfamethoxazole 800 1 tab PO DAILY 01/16/25 01/16/25 History mg-trimethoprim 160 mg tablet (Bactrim DS) vitamin B complex 1 tab PO DAILY 01/16/25 01/16/25 History vitamin E 268 mg (400 unit) capsule 2 cap PO DAILY 01/16/25 01/16/25 History Past Med/Surg History Problem List (Updated 01/16/25 @ 17:00 by Maxime Loomis MD) Infection of right knee (Acute) Falling (Acute) Right rib fracture (Acute) Fatigue (Acute) Weakness (Acute) Pneumonia (Acute) Hypotension (Acute) Rib fracture Anemia (Acute) Cellulitis (Acute) Swelling of right knee UTI (urinary tract infection) Skin tear of left upper extremity IPMN (intraductal papillary mucinous neoplasm) Open wound of left elbow (Acute) Cardiomyopathy Heart failure with improved ejection fraction (HFimpEF) Foot ulcer, right Somnolence Myoclonus Generalized weakness (Acute) Pneumonia (Acute) JEFFERY (acute kidney injury) Bilateral lower leg cellulitis Right upper lobe pneumonia Idiopathic peripheral neuropathy Spinal stenosis, lumbar region with neurogenic claudication HFrEF (heart failure with reduced ejection fraction) Transaminitis Venous stasis ulcers of both lower extremities Non-pressure chronic ulcer of other part of left foot limited to breakdown of skin Non-pressure chronic ulcer of other part of right foot limited to breakdown of skin Peripheral arterial disease (Chronic) Pressure ulcer of right foot, stage 3 Chronic diastolic heart failure History of MRSA infection Recurrent cellulitis of lower extremity (Acute) Polyneuropathy Depression Atrial flutter (Acute) Atrial fibrillation with RVR Open wound of knee (Acute) Venous ulcers of both lower extremities (Acute) Pain associated with wound Back pain VRE bacteremia Anemia (Acute) Hypomagnesemia (Acute) Bilateral cellulitis of lower leg (Acute) Peripheral neuropathy Chronic venous stasis Cellulitis of both feet (Acute) Rheumatoid arthritis Open wound of foot Chronic wound (Acute) Lymphangitis of lower extremity Hypomagnesemia (Acute) Open wound of left arm with tendon injury Gram-negative bacteremia Cellulitis of right lower extremity (Acute) Generalized weakness (Acute) Acute kidney injury superimposed on chronic kidney disease (Acute) Skin tear of right upper extremity (Acute) Open wound of left foot (Acute) Open wound of right foot (Acute) Venous ulcer of left leg (Acute) Traumatic open wound of right lower leg (Acute) Dislocation, hip closed (Acute) Rotator cuff arthropathy of both shoulders Left shoulder pain Acquired foot deformity (Chronic) Traumatic wound (Acute) Pressure ulcer of left foot, stage 3 (Acute) Abnormal ankle brachial index (Acute) Cervical radiculopathy Neuropathy Constipation Rhabdomyolysis MRSA infection Visual disturbance Hyponatremia Hypotension Abdominal wall abscess (Acute) HFrEF (heart failure with reduced ejection fraction) EF 40% Mar 2022, improved 55-60% August 2022 Lumbar stenosis Osteoarthritis of right knee Anxiety and depression Hypertension Coronary artery disease Atherogenic dyslipidemia Lumbar radiculopathy Lower extremity weakness Degenerative spondylolisthesis Chronic low back pain Scoliosis of lumbar region due to degenerative disease of spine in adult Septic joint of right knee joint Incisional hernia Adjustment disorder with mixed anxiety and depressed mood Medical History Complicated urinary tract infection Infection of prosthetic right knee joint Obstructive sleep apnea Obesity hypoventilation syndrome Atelectasis Elevated brain natriuretic peptide (BNP) level Bronchitis due to human metapneumovirus (hMPV) Infection due to human metapneumovirus (hMPV) Cough History of infection of total joint prosthesis of knee Weakness MRSA bacteremia Hypoxia Hypotension Hyperkalemia Lethargy Ischemic ulcer of left foot Ischemic ulcer of right foot Bilateral lower leg cellulitis PVD (peripheral vascular disease) Atrial flutter with rapid ventricular response Open wound of left lower extremity Sepsis Infected hardware in right leg Chronic infection of right knee Venous ulcer of right leg History of immunosuppressive therapy Heart failure with preserved ejection fraction GERD (gastroesophageal reflux disease) Septicemia due to Streptococcus pneumoniae Respiratory failure with hypoxia Hypomagnesemia Pneumonia Benign essential hypertension Lumbar stenosis Hx of staphylococcal infection 03/2022, w/"bacterial infection" at the same, in the rt. knee, occurrred during atrial fibrillation episode. "when he woke up, he couldn't walk." Atrial fibrillation episode occurred in 03/2022, taken to [facility] in [place], admitted to ICU for 1-2 weeks (was not intubated, but wasn't "awake either"), then to cardiac unit, then to rehab at [facility] in [place]; f/u dr. 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 Hx of knee surgery rt. patellar tendon repair Hx of rotator cuff surgery bilateral Hx of total knee replacement lt. Hx of total hip arthroplasty rt. History of colostomy reversal History of bowel resection for diverticulitis; w/colostomy placement for 3-4 months Hx of hernia repair near former colostomy site History of esophagogastroduodenoscopy (EGD) Hx of colonoscopy Last Colonoscopy 08/14/22, repeat 3 years in 2025 Hx of bilateral cataract extraction History of heart artery stent ~3 years ago, x2 stents, done in [place]; f/u dr guerra, [place]>will [place] seeing new cardio at [place] week of August 2022. History of cardiac cath ~3 years ago, SOB and "felt like throat was constricting", had "silent heart attack", x2 stents, done in [place] Family History Grandmother (Maternal) Diabetes Daughter Diabetes Father Suicide Hypertension Denies family history of Ovarian cancer Prostate cancer Myocardial infarction Breast cancer Lung cancer Colorectal cancer Stroke Social History Smoking Status: Never smoker Second Hand Exposure: No; Do You Dip or Chew Tobacco: No; Hx Alcohol Use: Yes Alcohol type: wine Alcohol Intake Frequency: 4 or More x pe r/Week Hx Substance Use: No Preferred Language: Greenlandic Communication Ability: Effective Visual Impairment: Limited Hearing Ability: Normal Display Associate Required: No Beliefs That Will Affect Care: None marital status: Single Current Living Situation: Alone Current Living Situation Comment: Independant living at [facility] current occupational status: retired How many Children do You have: 2 Other Information That Helps Us Care for You: No Feels Safe at Home: Yes Safety Concerns: Feels Safe At This Time Childhood Exposure to Second-Hand Smoke: Yes Diet: regular caffeine: Yes Dental Care, Regularly: Yes Physical Activity Frequency: Does not Exercise Seatbelt Use: always Sunscreen Use: Yes Assistive Devices: Cane, Glasses, Walker and Wheelchair Physical Exam Constitutional: sleeping, able to be aroused Respiratory: normal respiratory effort, lungs clear to auscultation Cardiovascular: RRR, no murmur, no edema Gastrointestinal (Abdomen): normal bowel sounds, soft, nontender, no hepatosplenomegaly Skin: LE wonds revealed - did not observe purulent drainage or foul odor. bloody discharge on bandages observed. Psychiatric: A+Ox3, euthymic affect Results & Data Results & Data Vital Signs (Past 12 Hours) Vital Signs Temp Pulse Pulse Resp BP BP Pulse Ox 01/16/25 15:31 70 20 113/55 L 93 01/16/25 15:31 113/55 L 01/16/25 15:31 113/55 L 01/16/25 15:30 70 19 95 01/16/25 15:28 92/57 L 01/16/25 15:27 74 23 01/16/25 15:23 62 01/16/25 15:09 66 18 113/68 96 01/16/25 15:00 113/68 01/16/25 15:00 113/68 01/16/25 14:52 71 20 109/64 93 01/16/25 14:39 69 19 01/16/25 14:33 109/64 01/16/25 12:24 36.3 C L 73 25 H 111/69 93 O2 Del Method 01/16/25 15:31 01/16/25 15:31 01/16/25 15:31 01/16/25 15:30 01/16/25 15:28 01/16/25 15:27 01/16/25 15:23 01/16/25 15:09 01/16/25 15:00 01/16/25 15:00 01/16/25 14:52 Room Air 01/16/25 14:39 01/16/25 14:33 01/16/25 12:24 Room Air Supervising Physician Co-Signing Physician Notes During face to face encounter, I obtained a history and physical examination, discussed plan of care with patient and answered any questions. I discussed plan of care with ANDREW Her. I reviewed above note and agree with it except for the following: Patient will be admitted with weakness. Patient is known to our hospital service for having recurrent admissions for weakness either from soft tissue infections, viral respiratory illness. There is a concern today that he has a possible pneumonia. Will order a biofire and place him on empiric antibiotics. PG Care Time/CCT Total # of Minutes Spent Total Time Spent with Patient: Total time spent is greater than 50% in coordination of care (as documented) at patient's floor/unit and/or counseling patient: Coding Level of Care Code 42427 INT INP/OBS CARE 375MIN Diagnoses Weakness R53.1 Pneumonia J18.9 Laterality: right Lung location: unspecified part of lung Pneumonia type: due to unspecified organism Chronic infection of right knee M00.9 History of immunosuppressive therapy Z92.25 Heart failure with preserved ejection fraction I50.30 Rib fracture S22.39XA Obstructive sleep apnea G47.33 (2) Pneumonia Laterality: right Lung location: unspecified part of lung Pneumonia type: due to unspecified organism Qualified Code(s): J18.9 - Pneumonia, unspecified organism
[2025-01-16 16:34] LABS: Base Excess VBG 0.2 mEq/L; HCO3 VBG 27 mmol/L; Oxygen Saturation VBG < 60.0 %; PCO2 VBG 51 mmHg (38-50); PO2 VBG 33 mmHg; pH VBG 7.33 (7.36-7.41)
[2025-01-16] MEDS: MEROPENEM 500 MG in SYRINGE 0 ML IV STA (16:47)
[2025-01-16] MEDS: SODIUM CHLORIDE 0.9% 1,000 ML IV SCH (16:47)
[2025-01-16] MEDS: LINEZOLID 600 MG/300 ML BAG IV SCH (17:15)
[2025-01-16 18:03] LABS: Chlamydia pneumoniae PCR Not Detected (NotDetected); Coronavirus 229E PCR Not Detected (NotDetected); Coronavirus CoV-2 (COVID19)PCR Not Detected (NotDetected); Coronavirus HKU1 PCR Not Detected (NotDetected); Coronavirus NL63 PCR Not Detected (NotDetected); Coronavirus OC43PCR Not Detected (NotDetected); Human Metapneumovirus PCR Not Detected (NotDetected); Parainfluenza Virus 1 PCR Not Detected (NotDetected); Parainfluenza Virus 2 PCR Not Detected (NotDetected); Parainfluenza Virus 3 PCR Not Detected (NotDetected); Parainfluenza Virus 4 PCR Not Detected (NotDetected); Respiratory Syncytial VirusPCR Not Detected (NotDetected); Rhinovirus/Enterovirus PCR Not Detected (NotDetected)
[2025-01-16] MEDS ORDERED: SENNA 8.6 MG TAB PO PRN (18:09)
[2025-01-16] MEDS ORDERED: ALBUT/IPRATROP 3MG/0.5MG NEB 3 ML VIAL NEB PRN (18:09)
[2025-01-16] MEDS ORDERED: POLYETHYLENE (MIRALAX) 17 GM PACK PO PRN (18:09)
[2025-01-16] MEDS: BUDESONIDE 0.5 MG/2 ML VIAL (PULMICORT) NEB SCH (19:57)
[2025-01-16] MEDS: FORMOTEROL 20 MCG/2 ML VIAL NEB SCH (19:57)
[2025-01-16] MEDS: MELATONIN 3 MG TAB PO SCH (21:23)
[2025-01-16] MEDS: levETIRAcetam 500 MG TAB PO SCH (21:24)
[2025-01-16] MEDS: GABAPENTIN 300 MG CAP PO SCH (21:24)
[2025-01-16] MEDS: TAMSULOSIN HCL 0.4 MG CAP PO SCH (21:25)
[2025-01-17] MEDS: MEROPENEM 500 MG in SYRINGE 0 ML IV SCH (01:41)
[2025-01-17 02:00] LABS: Appearance Urine Clear (Clear); Glucose Urine UA Negative (Negative)
[2025-01-17 06:15] LABS: Hematocrit (blood only) 29.5 % (42.0-52.0); Hemoglobin 9.7 g/dl (14.0-18.0); Mean Corpuscular Hemoglobin 31.1 pg (25.0-34.0); Mean Corpuscular Volume 94.6 fL (80.0-100.0); Platelet Count 222 K/uL (130-400); RDW Standard Deviation 55.8 fL (36.4-46.3); Red Blood Count 3.12 M/uL (4.70-6.10); White Blood Count 4.80 K/ul (4.8-10.8)
[2025-01-17 06:32] LABS: Anion Gap 6.0 (3-11); Blood Urea Nitrogen 31.0 mg/dl (6-23); Calcium 8.2 mg/dl (8.6-10.3); Carbon Dioxide 26.0 mmol/L (21-32); Chloride 104.0 mmol/L (98-107); Creatinine Clr Calc Pharmacy 68.4 ml/min; Glucose 99.0 mg/dl (70-99(Fasting)); Iron 24.0 mcg/dl (35-175); Potassium 4.6 mmol/L (3.5-5.1); Sodium 136.0 mmol/L (136-145); Total Iron Binding Cap Calc 273.0 mcg/dl (250-450); Transferrin 195.0 mg/dl (200-360); Transferrin (FE) Percent Satur 9.0 % (20-50)
[2025-01-17] MEDS: AMIODARONE 200 MG TAB PO SCH (09:04)
[2025-01-17] MEDS: ASPIRIN 81 MG ECTAB PO SCH (09:04)
[2025-01-17] MEDS: CYANOCOBALAMIN (B-12) 500 MCG TABLET PO SCH (09:05)
[2025-01-17] MEDS: MULTIVITAMIN TAB PO SCH (09:05)
[2025-01-17] MEDS: FERROUS SULFATE 325 MG TAB PO SCH (09:06)
[2025-01-17] MEDS: FOLIC ACID 1 MG TAB PO SCH (09:06)
[2025-01-17] MEDS: CHOLECALCIFEROL 25 MCG (1000 UNITS) TAB PO SCH (09:06)
[2025-01-17] MEDS: LACTASE 3000 UNIT TAB PO SCH (09:06)
[2025-01-17] MEDS: THIAMINE HCL 100 MG TAB PO SCH (09:07)
[2025-01-17] MEDS: METOPROLOL SUCC 25MG EXT REL TAB PO SCH (09:07)
[2025-01-17] MEDS: ACETAMINOPHEN 325 MG TAB PO PRN (09:12)
--- NOTE | 2025-01-17 12:21 | Electrocardiogram Report ---
Test Reason : Blood Pressure : */* mmHG Vent. Rate : 68 BPM Atrial Rate : 68 BPM P-R Int : 204 ms QRS Dur : 122 ms QT Int : 412 ms P-R-T Axes : 19 -38 -3 degrees QTcB Int : 438 ms Normal sinus rhythm Left axis deviation Non-specific intra-ventricular conduction delay Abnormal ECG When compared with ECG of 13-Dec-2024 13:24, Premature ventricular complexes are no longer Present Confirmed by Christopher Munoz ([id number]) on 01/17/2025 12:21:06 PM Referred By: Confirmed By: Christopher Munoz
[2025-01-17] MEDS: IRON SUCROSE 300 MG in SODIUM CHLORIDE 0.9% 250 ML IV SCH (17:03)
[2025-01-17] MEDS: RIVAROXABAN 20 MG TAB PO SCH (17:05)
--- NOTE | 2025-01-17 17:46 | Hospitalist Progress Note ---
"Date of Service January 17, 2025 Assessment & Plan (1) Weakness: (2) Pneumonia: (3) Chronic infection of right knee: (4) History of immunosuppressive therapy: (5) Heart failure with preserved ejection fraction: (6) Rib fracture: (7) Obstructive sleep apnea: Plan This is an 79 year old gentleman with past medical history of CHF, RA, CAD, A fib, chronic wounds who presented to the ED on 01/16 after [facility]. While in the ED, he had a stable CBC and BMP. His CRP was elevated at 15.44, ESR elevated at 90. Procal was negative. Tick panel negative. Troponin was mildly elevated at 21.7 w/ a repeat negative. TSH mildly elevated at 5.329 w/ a normal free T4. BNP elevated at 252 VBGs w/ ph of 7.33, pCO2 51, HCO3 27. CXR negative. Chest CT showing pneumonitis vs pneumonia and an acute nondisplaced right 6th rib fracture. #Weakness No overly convincing source of infection - Procal was negative. Tick panel negative. CXR negative. Chest CT: concern for pneumonitis vs early pneumonia, acute nondisplaced right 6th rib fracture. Minimal CRP elevation, but this is chronic. UA negative. Biofire negative. Troponin initially elevated at 21.9 but repeat WNL at 18.4. --> minimal elevation secondary to demand ischemia TSH mildly elevated at 5.329 w/ normal free T4 --> recommend repeat in 4-6 weeks outpatient Blood cultures: pending wound cultures: pending Given hx of MDR and no clear source of infection - stop abx. Resume suppressive bactrim. Monitor cultures and fever curve PT/OT consulted - initially rec rehab, pt is not currently agreeable, reassess in AM #Acute rib fracture Limited history secondary to lethargy but did not complain of CP or recent fall Tylenol prn for pain Incentive spirometer, flutter valve. #Drowsiness/ LEONARD Patient has intermittent daytime drowsiness and falls asleep middle of conversations. 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 Iron studies consistent with NICOLÁS - will given venofer while here AM CBC #Depression/anxiety - Continue Duloxetine, mirtazapine #GERD - PPI #myoclonic jerking - Keppra #Neuropathy - gabapentin Venous stasis ulcers of bilateral lower extremities, open non-healing operative wound of the left knee, open wound of left foot on first and second toes, open wound of right lateral foot, all POA continue wound care DVT prophylaxis: Xarelto Dispo: continued inpatient stay, possible d/c tomorrow if dose well with therapy Admission and Anticipated Discharge Date Admission Date: January 16, 2025 Supervising Physician Co-Signing Physician Notes PA Supervision Note: I did not personally see or examine the patient today, but I verified all lubin points of ISREAL Carbajal's assessment and plan with the following exceptions/additions: None Subjective patient seen sitting up in the chair. Reports that he feels well, denies having weakness at home but does report fatigue. Cough x 2 weeks with green/yellow sputum. Denies fevers or chills. Revisited this afternoon to discuss. He thinks he may have been taking his Entresto still at home. 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 He is agreeable to IV Venofer and working with therapy tomorrow. Telemetry sinus rhythm with PVCs in the 70s Review of Systems Review of Systems: All systems reviewed & are unremarkable except as noted in Subjective Physical Exam Physical Exam: General: NAD, VS as above, sitting up in the chair, appears well. Resp: normal respiratory effort, lungs clear to auscultation No wheezing CV: RRR, no murmur, Abd: normal bowel sounds, non tender, no hepatosplenomegaly Extremities: Moves all extremities, right knee is swollen, no erythema not warm to touch. Patient reports this is his baseline. Lower extremities consistent with venous stasis. No signs of cellulitis Neuro: A&O x3, Results & Data Results & Data Vital Signs (Past 12 Hours) Vital Signs Temp Pulse Pulse Pulse Resp BP Pulse Ox 01/17/25 15:14 97.9 F 65 18 104/65 92 01/17/25 14:18 77 01/17/25 11:30 98.6 F 74 18 96/61 L 92 01/17/25 09:25 80 01/17/25 09:25 01/17/25 07:37 78 18 94 01/17/25 07:32 97.9 F 77 18 104/61 90 O2 Del Method 01/17/25 15:14 Room Air 01/17/25 14:18 01/17/25 11:30 Room Air 01/17/25 09:25 01/17/25 09:25 Room Air 01/17/25 07:37 Room Air 01/17/25 07:32 Room Air Laboratory Results CBC, chemistry, BioFire, urinalysis, CRP reviewed Blood cultures and wound cultures reviewed PG Care Time/CCT Total # of Minutes Spent Total Time Spent with Patient: Total time spent is greater than 50% in coordination of care (as documented) at patient's floor/unit and/or counseling patient: Coding Level of Care Code 25025 SUB INP/OBS CARE 3/50MIN Diagnoses Weakness R53.1 Pneumonia J18.9 Laterality: right Lung location: unspecified part of lung Pneumonia type: due to unspecified organism Chronic infection of right knee M00.9 History of immunosuppressive therapy Z92.25 Heart failure with preserved ejection fraction I50.30 Rib fracture S22.39XA Obstructive sleep apnea G47.33 (2) Pneumonia Laterality: right Lung location: unspecified part of lung Pneumonia type: due to unspecified organism Qualified Code(s): J18.9 - Pneumonia, unspecified organism"
[2025-01-17] MEDS: SULFAMETHOXAZOLE/TRIMETHOPRIM DS 800/160MG TAB PO SCH (20:40)
[2025-01-17] MEDS: MIRTAZAPINE TAB 15 MG TAB PO SCH (21:57)
[2025-01-17] MEDS: LATANOPROST 0.005% OP SOLN 2.5 ML BTL OP SCH (21:58)
[2025-01-18] MEDS: BUMETANIDE 1 MG TAB PO SCH (08:45)
[2025-01-18 09:24] LABS: Hematocrit (blood only) 31.4 % (42.0-52.0); Hemoglobin 10.1 g/dl (14.0-18.0); Immature Granulocytes # (auto) 0.01 K/uL (0.01-0.20); Immature Granulocytes % (auto) 0.2 %; Mean Corpuscular Hemoglobin 30.7 pg (25.0-34.0); Mean Corpuscular Volume 95.4 fL (80.0-100.0); Platelet Count 248 K/uL (130-400); RDW Standard Deviation 57.8 fL (36.4-46.3); Red Blood Count 3.29 M/uL (4.70-6.10); White Blood Count 4.30 K/ul (4.8-10.8)
[2025-01-18 09:41] LABS: Anion Gap 5.0 (3-11); Blood Urea Nitrogen 31.0 mg/dl (6-23); Calcium 8.6 mg/dl (8.6-10.3); Carbon Dioxide 27.0 mmol/L (21-32); Chloride 106.0 mmol/L (98-107); Creatinine Clr Calc Pharmacy 57.6 ml/min; Glucose 103.0 mg/dl (70-99(Fasting)); Potassium 4.7 mmol/L (3.5-5.1); Sodium 138.0 mmol/L (136-145)
--- NOTE | 2025-01-18 16:19 | Hospitalist Progress Note ---
"Date of Service January 18, 2025 Assessment & Plan (1) Weakness: (2) Pneumonia: (3) Chronic infection of right knee: (4) History of immunosuppressive therapy: (5) Heart failure with preserved ejection fraction: (6) Rib fracture: (7) Obstructive sleep apnea: Plan This is an 79 year old gentleman with past medical history of CHF, RA, CAD, A fib, chronic wounds who presented to the ED on 01/16 after [facility]. #Weakness No overly convincing source of infection - Procal was negative. Tick panel negative. CXR negative. Chest CT: concern for pneumonitis vs early pneumonia, acute nondisplaced right 6th rib fracture. Minimal CRP elevation, but Known rheumatologic disease and recently taken off of biologic. UA negative. Biofire negative. Sputum culture negative Troponin initially elevated at 21.9 but repeat WNL at 18.4. --> minimal elevation secondary to demand ischemia TSH mildly elevated at 5.329 w/ normal free T4 --> recommend repeat in 4-6 weeks outpatient Blood cultures: No growth at 24 hours wound cultures: Proteus mirabilis and Pseudomonas.Discussed with antimicrobial stewardship pharmacist to discuss this patient on ID rounds. No signs of systemic infection afebrile, no leukocytosis, patient feels well. It is very possible this patient is colonized with this bacteria. Will continue to monitor and ensure adequate wound care. Given hx of MDR and no clear source of infection - stop abx. continue suppressive bactrim. PT/OT consulted - rec return home with PT, but [facility] will not accept back while he is C[facility], has to be independent. Son reporting he uses alot of grab bars/assistive devices at home in his apartment and using these during eval would be more indicative of his home environment. #Acute rib fracture Limited history secondary to lethargy but did not complain of CP or recent fall Tylenol prn for pain Incentive spirometer, flutter valve. #Drowsiness/ LEONARD Patient has intermittent daytime drowsiness and falls asleep middle of conversations. 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 Iron studies consistent with NICOLÁS - will given venofer while here #Depression/anxiety - Continue Duloxetine, mirtazapine #GERD - PPI #myoclonic jerking - Keppra #Neuropathy - gabapentin Venous stasis ulcers of bilateral lower extremities, open non-healing operative wound of the left knee, open wound of left foot on first and second toes, open wound of right lateral foot, all POA continue wound care DVT prophylaxis: Xarelto Dispo: continued inpatient stay, possible d/c tomorrow if dose well with therapy. stable for downgrade to [facility] updated by phone 01/18 - would like any short term Rx to be sent to [facility], they have been having issues with getting meds delivered from [place] Admission and Anticipated Discharge Date Admission Date: January 16, 2025 Supervising Physician Co-Signing Physician Notes ISREAL Supervision Note: I did not personally see or examine the patient today, but I verified all lubin points of ISREAL Carbajal's assessment and plan with the following exceptions/additions: None Subjective Patient seen sitting up in the chair. Reports that he feels well, denies fevers or chills or weakness. He is eager to get home. Transferring went better today he feels that he is back to his baseline. 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 Resp: normal respiratory effort, lungs clear to auscultation No wheezing CV: RRR, no murmur, Abd: normal bowel sounds, non tender, no hepatosplenomegaly Extremities: Moves all extremities, right knee is swollen, no erythema not warm to touch. Patient reports this is his baseline. Lower extremities consistent with venous stasis. No signs of cellulitis Neuro: A&O x3, Results & Data Results & Data Vital Signs (Past 12 Hours) Vital Signs Temp Pulse Pulse Resp BP Pulse Ox O2 Del Method 01/18/25 15:46 97.7 F 70 18 114/74 95 Room Air 01/18/25 14:28 72 01/18/25 11:56 98.2 F 76 20 118/73 91 Room Air 01/18/25 10:24 Room Air 01/18/25 07:23 97.3 F L 82 17 116/62 95 Room Air 01/18/25 07:17 76 18 89 L Room Air 01/18/25 07:11 77 Laboratory Results CBC and chemistry reviewed PG Care Time/CCT Total # of Minutes Spent Total Time Spent with Patient: Total time spent is greater than 50% in coordination of care (as documented) at patient's floor/unit and/or counseling patient: Coding Level of Care Code 66497 SUB INP/OBS CARE 3/50MIN Diagnoses Weakness R53.1 Pneumonia J18.9 Laterality: right Lung location: unspecified part of lung Pneumonia type: due to unspecified organism Chronic infection of right knee M00.9 History of immunosuppressive therapy Z92.25 Heart failure with preserved ejection fraction I50.30 Rib fracture S22.39XA Obstructive sleep apnea G47.33 (2) Pneumonia Laterality: right Lung location: unspecified part of lung Pneumonia type: due to unspecified organism Qualified Code(s): J18.9 - Pneumonia, unspecified organism"
[2025-01-19 07:54] VITALS: BP 138/76; PULSE 78; RESP 18; TEMP 97.7; O2SAT 93
--- NOTE | 2025-01-19 10:32 | Discharge Summary ---
"Discharge Summary Date of Service January 19, 2025 Principal Dx & Hospital Course #1 = Principal Diagnosis (1) Weakness: (2) Pneumonia: (3) Chronic infection of right knee: (4) History of immunosuppressive therapy: (5) Heart failure with preserved ejection fraction: (6) Rib fracture: (7) Obstructive sleep apnea: Plan This is an 79 year old gentleman with past medical history of CHF, RA, CAD, A fib, chronic wounds who presented to the ED on 01/16 after [facility]. #Weakness No overly convincing source of infection - Procal was negative. Tick panel negative. CXR negative. Chest CT: concern for pneumonitis vs early pneumonia, acute nondisplaced right 6th rib fracture. Minimal CRP elevation, but Known rheumatologic disease and recently taken off of biologic. UA negative. Biofire negative. Sputum culture negative. wound cultures: Proteus mirabilis and Pseudomonas.Discussed with antimicrobial stewardship pharmacist to discuss this patient on ID rounds. No signs of systemic infection afebrile, no leukocytosis, patient feels well. It is very possible this patient is colonized with this bacteria - ample wound care is going to be important. Troponin initially elevated at 21.9 but repeat WNL at 18.4. --> minimal elevation secondary to demand ischemia Suspect weakness secondary to hypotension perhaps from inadvertent use of Entresto which was discontinued months ago TSH mildly elevated at 5.329 w/ normal free T4 --> recommend repeat in 4-6 weeks outpatient Blood cultures: No growth at 48 hours Wounds without evidence of infection - Qasimbacilio reports he is willing to have nursing come to help with dressing changes to prevent future infections, family is working to get [facility] #Acute rib fracture - doing well with, denies pain. 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 Continue xarelto and amidoarone and bumex. metoprolol decreased to 12.5mg discontinue entresto - maybe taking at home - deleted from med list #Iron Deficiency anemia hgb baseline of 11-12, 9.7 today. Iron studies consistent with NICOLÁS - given venofer x 3 #Depression/anxiety - Continue Duloxetine, mirtazapine #GERD - PPI #myoclonic jerking - Keppra #Neuropathy - gabapentin Venous stasis ulcers of bilateral lower extremities, open non-healing opera tive wound of the left knee, open wound of left foot on first and second toes, open wound of right lateral foot, all POA continue wound care DVT prophylaxis: Xarelto Dispo: discharge to home today Notes For Next Care Provider needs to ensure he is following somewhere for wound care Medication Changes From Visit STOP entresto reduce metoprolol Admission HPI Per Admitting Provider This is an 79 year old gentleman with past medical history of CHF, RA, CAD, A fib, chronic wounds who presented to the ED on 01/16 after [facility]. [place] was seen and examined this afternoon. He was lethargic & sleeping at time of encounter but was able to be aroused. History was limited secondary to this. He reports that he has had ongoing weakness for about 2 weeks. He has also had a cough during this period of time. He reports his cough is nonproductive. He denies any worsening shortness of breath. He denies any chest pain. He states that his Lower wounds needs addressed because he missed his most recent wound clinic appointment secondary to not having a ride. He denies any fevers or chills at home. he denies any n/v/changes in bowel habits. denies any urinary symptoms. While in the ED, he had a stable CBC and BMP. His CRP was elevated at 115.44, ESR elevated at 90. Procal was negative. Tick panel negative. Troponin was mildly elevated at 21.7 w/ a repeat negative. TSH mildly elevated at 5.329 w/ a pending free T4. VBGs w/ ph of 7.33, pCO2 51, HCO3 27. CXR negative. Chest CT showing pneumonitis vs pneumonia and an acute nondisplaced right 6th rib fracture. Discharge Exam General: NAD, VS as above, lying in bed, appears well. Resp: normal respiratory effort, lungs clear to auscultation No wheezing CV: RRR, no murmur, Extremities: Moves all extremities, right knee is swollen, no erythema not warm to touch. Patient reports this is his baseline. Lower extremities consistent with venous stasis. No signs of cellulitis Neuro: A&O x3, Skin: foot and ankle wounds visulized, no signs of infection, no surrounding erythema or warmth Discharge Plan Discharge Items Patient Disposition: Home - Self-Care Reason For Visit: WEAKNESS Discharge Diagnosis: hypotension Condition on Discharge: Fair Activity: As commented below Activity Comment: keep doing your exercises to get stronger Weightbearing: Full weightbearing Non-emergency contact: Primary Care Provider Call non-emergency contact if: you have any medication questions, your symptoms worsen and your temperature is above 101 Follow-up/Referrals: Danny Soliman DO [Primary Care Provider] - 01/27/25 11:30 am (follow up within one week ) Diet: Heart Healthy Addtl Attending Provider Instructions: Mr. Palacio, You were hospitalized after having low blood pressure - this was likely caused by taking too many blood pressure medications. please make sure you are NOT taking Entresto. We have also decreased your metorpolol to 12.5mg daily. There was a wound culture done that showed you have bacteria in your wound - this is likely colonized as your wound looks good and no signs of infection on your labs and vitals. Continued wound care is going to be most important for these healing. I have sent bactrim to [facility]. You have blood cultures pending at the time of discharge, they are negative at 48 hours but take 5 days to get final results. If they turn positive you will be notified, you can also check in with your PCP or the [facility] portal. However, given your symptoms I do not expect they will be positive. Follow-up appointments: Make an appointment with your primary care physician within one week of discharge. A copy of this summary will be sent to them. Every time you see your primary care physician, or any other doctor, bring your medication list, and a list of questions. CONTACT YOUR PRIMARY CARE PROVIDER if you experience any of the following: Shortness of breath or difficulty breathing Fevers or chills Feeling tired with normal activity or experiencing dizziness or fainting Difficulty following your treatment plan, or difficulty taking medications CALL 911 OR GO TO THE EMERGENCY DEPARTMENT if you experience any of the following: Severe abdominal pain or nausea/vomiting Severe chest pain, or chest pain that radiates (moves) to your jaw or arm Sudden, severe shortness of breath or difficulty breathing Thank you for allowing us to participate in your care. Pending Studies at Discharge: Yes Stand-Alone Forms: My [facility], Smoking Cessation Medications and DC Order Prescriptions: New lactase [Dairy-Aid] 3,000 unit Tablet 3,000 unit PO DAILY Qty: 30 0RF metoprolol succinate 25 mg Tablet Extended Release 24 Hr 12.5 mg PO DAILY Qty: 15 0RF formoterol fumarate [Perforomist] 20 mcg/2 mL Solution For Nebulization 20 mcg NEB BIDR Qty: 30 0RF Continued amiodarone 200 mg tablet 200 mg PO QAM Qty: 90 3RF Rocklatan 0.02-0.005 % drops 1 drp ophthalmic (eye) DIRECTED levetiracetam [Keppra] 500 mg tablet 500 mg PO BID 90 Days Qty: 180 11RF Xarelto 20 mg tablet 20 mg PO DAILY Rx Instructions: start 3 days after last eliquis dose. aspirin [Adult Low Dose Aspirin] 81 mg tablet,delayed release (DR/EC) 81 mg PO QAM Hold Instructions: Resume on 02/23/23. until PCP/surgery followup Patient Comments: Unable to verify med at this date/time. Listed as remote-med on [facility] Pharmacy med list. 01/16/25 nitroglycerin 0.4 mg Tablet, Sublingual 0.4 mg sublingual DIRECTED PRN (Reason: chest pin) Rx Instructions: GIVE 1 TABLET SUBLINGUALLY NEEDED FOR CHEST PAIN. MAY REPEAT DOSE EVERY 5 MINUTES FOR A TOTAL OF 3 DOSES..IF NO RELIEF CALL 911 mirtazapine 30 mg tablet 30 mg PO HS tamsulosin 0.4 mg capsule 0.4 mg PO HS multivitamin Tablet 1 tab PO DAILY melatonin 3 mg Tablet 6 mg PO HS diclofenac sodium 1 % Gel 2 g topical Q6 PRN (Reason: Shoulder Pain) thiamine HCl (vitamin B1) 100 mg Tablet 100 mg PO DAILY omeprazole 20 mg Capsule,Delayed Release(Dr/Ec) 20 mg PO DAILY folic acid 1 mg Tablet 1 mg PO DAILY omega-3 fatty acids 1,000 mg Capsule 1,000 mg PO QPM Patient Comments: Unable to verify med at this date/time. Listed as remote-med on [facility] Pharmacy med list. 01/16/25 acetaminophen [Tylenol] 325 mg Tablet 650 mg PO TID MDD 3G PRN (Reason: TEMP > 100.4) ipratropium-albuterol 0.5 mg-3 mg(2.5 mg base)/3 mL Solution For Nebulization 3 ml NEB Q6R PRN (Reason: shortness of breath or wheezing) Qty: 90 0RF Patient Comments: Original Directions: 3ml VIA ROBERT Q6h PRN. Unable to verify med at this date/time. Not on file / [facility] Pharmacy. 01/16/25 duloxetine 30 mg capsule, delayed rel sprinkle 60 mg PO QAM gabapentin 600 mg Tablet 600 mg PO TID pravastatin 40 mg Tablet 40 mg PO HS bumetanide 0.5 mg tablet 0.5 mg PO DAILY MDD 1mg/24hr Rx Instructions: May take additional tablet daily as needed vitamin B complex Tablet 1 tab PO DAILY cholecalciferol (vitamin D3) [Vitamin D3] 10 mcg (400 unit) Tablet 20 mcg PO DAILY vitamin E 268 mg (400 unit) Capsule 2 cap PO DAILY Ensure Liquid 1 ea PO DAILY sodium chloride 0.65 % Aerosol,[place] 1 spray INTRANASAL BID PRN (Reason: Dry nose) Lactobacillus acidophilus Tablet,Chewable 1 tab PO DAILY cyanocobalamin (vitamin B-12) [Vitamin B-12] 500 mcg Lozenge 500 mcg PO DAILY menthol-zinc oxide [Calmoseptine] 0.44-20.6 % Ointment 1 applic TOPICAL BID Dom 7-7-1.5 gram Powder In Packet 1 ea PO BID duloxetine 30 mg Capsule, Delayed Rel Sprinkle 30 mg PO QPM ferrous sulfate 325 mg (65 mg iron) tablet 0 mg PO DAILY Patient Comments: Original Directions: 325mg by mouth daily. Listed as on hold per [facility] Pharmacy. No restart date listed. 01/16/25. budesonide 0.5 mg/2 mL suspension for nebulization 0 mg NEB BIDR Patient Comments: Original Directions: 0.5mcg VIA NEB bid. Unable to verify med at this date/time. Not on file / [facility] Pharmacy. 01/16/25 formoterol fumarate [Perforomist] 20 mcg/2 mL solution for nebulization 0 mcg NEB BIDR Patient Comments: Original Directions: 20mcg VIA NEB bid. Unable to verify med at this date/time. Not on file / [facility] Pharmacy. 01/16/25 sulfamethoxazole-trimethoprim [Bactrim DS] 800-160 mg tablet 1 tab PO BID Qty: 60 0RF Patient Comments: Listed as active @ [facility] Last filled 01/09/25 x90 day supply sennosides 8.6 mg Tablet 8.6 mg PO .EVERY 24 HOURS PRN (Reason: Constipation) Patient Comments: Unable to verify med at this date/time. Listed as remote-med on [facility] Pharmacy med list. 01/16/25 Discontinued metoprolol succinate 50 mg Tablet Extended Release 24 Hr 25 mg PO DAILY Discharge Orders: Discharge Order (Routine); Ordered 01/19/25 Ordered By: Belle Carbajal Admission Data Admit Date/Time: 01/16/25 16:03 Attending Provider: Carolyn García Admit Provider: Sadiq Membreno Primary Care Provider: Danny Soliman Other Providers: Sadiq Membreno; [facility] Other Interventions: Discharge Summary Assessment (RN) Last Done: 01/19/25 11:10 Hospital Stay Data Consultations 01/16/25 15:11 ED Decision to Admit Stat Diagnostic Imagining Performed 01/16/25 14:56 CT chest diagnostic w con Stat Pending Results Patient Have Any Pending Studies at Discharge: Yes Discharge Instructions Given to Patient (Per Discharging Provider) Mr. Palacio, You were hospitalized after having low blood pressure - this was likely caused by taking too many blood pressure medications. please make sure you are NOT taking Entresto. We have also decreased your metorpolol to 12.5mg daily. There was a wound culture done that showed you have bacteria in your wound - this is likely colonized as your wound looks good and no signs of infection on your labs and vitals. Continued wound care is going to be most important for these healing. I have sent bactrim to [facility] to continue until you can get it from the [place]. You have blood cultures pending at the time of discharge, they are negative at 48 hours but take 5 days to get final results. If they turn positive you will be notified, you can also check in with your PCP or the [facility] portal. However, given your symptoms I do not expect they will be positive. Follow-up appointments: Make an appointment with your primary care physician within one week of discharge. A copy of this summary will be sent to them. Every time you see your primary care physician, or any other doctor, bring your medication list, and a list of questions. CONTACT YOUR PRIMARY CARE PROVIDER if you experience any of the following: Shortness of breath or difficulty breathing Fevers or chills Feeling tired with normal activity or experiencing dizziness or fainting Difficulty following your treatment plan, or difficulty taking medications CALL 911 OR GO TO THE EMERGENCY DEPARTMENT if you experience any of the following: Severe abdominal pain or nausea/vomiting Severe chest pain, or chest pain that radiates (moves) to your jaw or arm Sudden, severe shortness of breath or difficulty breathing Thank you for allowing us to participate in your care. Supervising Physician Co-Signing Physician Notes ISREAL Supervision Note: I did not personally see or examine the patient today, but I verified all lubin points of ISREAL Carbajal's assessment and plan with the following exceptions/additions: None Total Time Total Time Spent Total Time Spent (In Minutes): Time spent day of discharge 35 minutes including direct patient care, medication reconciliation, documentation, review of labs and images, and coordination of care. Coding Level of Care Code 49859 INP/OBS DISCH >30 MIN Diagnoses Weakness R53.1 Pneumonia J18.9 Laterality: right Lung location: unspecified part of lung Pneumonia type: due to unspecified organism Chronic infection of right knee M00.9 History of immunosuppressive therapy Z92.25 Heart failure with preserved ejection fraction I50.30 Rib fracture S22.39XA Obstructive sleep apnea G47.33"
== END 2025-01-19 11:20 | disposition home or self-care (01) | DRG 194 ==
LOC: SUATTDRO → ED 12:18 → SUATTDRO 16:03 → EDINP 16:03 → 4W 18:10 → 2W 01-18 02:38 → 3E 01-18 22:48

== ENCOUNTER 2025-05-01 15:57 | Inpatient (IN) ==
--- NOTE | 2025-05-01 16:24 | Emergency Department Note ---
Impression & Plan Weakness, Anemia, Pedal edema, Fluid overload, Somnolence, Elevated troponin, History of sepsis ED Provider Note NAME: RAFY CHICAS AGE: 79 SEX: M : 1945 ARRIVES VIA: Walk-In INFORMANT: [Patient][son] ED PROVIDER(S): [Maxime Loomis MD] CHIEF COMPLAINT: Line placement, fatigue HISTORY OF PRESENT ILLNESS: The patient is an 79-year-old male who is on 2 different antibiotics through a PICC line. He was discharged from our hospital after being diagnosed with sepsis. Yesterday, the patient's line worked fine. Today, home health could not get the line to function and he was sent for evaluation and a new line placement. The patient states that additionally, he has been more tired and fatigued over the last week. As per the son, he falls asleep readily. The patient also has had increased edema of his lower extremities and even some weeping of fluid from the wounds. There has been no fever, no cough or congestion. There is no pain. Patient has not had vomiting or diarrhea. PMHx/PSHx/Social Hx: See Below PHYSICAL EXAM: GENERAL: Patient is in no acute distress. HEENT: No acute trauma, normocephalic atraumatic, mucous membranes moist, no nasal congestion. NECK: No stridor, no adenopathy, no meningismus, trachea is midline. LUNGS: Clear to auscultation bilaterally, no wheeze, no rhonchi, breath sounds equal. HEART: Somewhat irregular rhythm, normal rate. No obvious murmurs. Heart tones distant. ABDOMEN: Soft, nontender, no peritonitis. EXTREMITIES: No cyanosis. There is marked bilateral pedal edema that extends to the thighs. There is a dressing on the left foot involving the left first toe. There is a PICC line in the right upper extremity. NEUROLOGIC: Oriented x 3, no acute motor or sensory deficits, no focal weakness. Does seem quite sleepy. SKIN: No jaundice, no diaphoresis. DIFFERENTIAL DIAGNOSIS: Renal or liver failure, medication reaction, electrolyte imbalance, CO2 retention, fluid overload, among others. EMERGENCY DEPARTMENT PROCEDURES: MEDICAL DECISION MAKING: There is no leukocytosis. Patient is anemic however, this is a chronic issue and his value today is higher than recent testing. There is a normal platelet count. No bandemia. VBG does not show acidosis or CO2 retention. No renal failure or significant electrolyte abnormality. Lactic acid level is not elevated making severe sepsis less likely. No worrisome liver enzyme elevation. The patient appeared to be in a euthyroid state. Ammonia level was not elevated. ECG shows a sinus rhythm, no obvious ST elevation. Cardiac enzyme testing is slightly elevated, this troponin elevation could be secondary cardiac injury or just mismatch. Urinalysis does not show findings of infection. Chest x-ray does not show pneumonia or CHF. On exam, the patient has significant pedal edema extending above his knees. He was quite somnolent. He was not toxic or febrile. Patient was eventually given a dose of IV Bumex, 1 mg. This was given to facilitate diuresis. The patient presents with fatigue, somnolence, weakness, fluid overload. He was recently hospitalized for sepsis. He is receiving IV antibiotics through a right arm PICC line. There was some difficulty with the PICC line function today as per home health, however, our IV team was able to unkink the line and it does seem to be functioning well currently. Given the findings and the patient's presentation, I do think a hospital stay for further diuresis would be warranted. Unfortunately, at this point, the cause for the somnolence is unclear. I did speak with the patient and son, I spoke with case management. The on-call hospitalist was consulted. Prior/Outside records/notes reviewed: Discharge summary note from 04/08/2025 describing his presentation, hospital course and outpatient plan. ECG per my interpretation: Indication was weakness and fatigue. The ECG shows a sinus rhythm with occasional PVCs. The rate is 75. There is no obvious ST elevation, QTc is 486. Continuous Cardiac Monitoring per my interpretation: An order was placed for continuous cardiac monitoring. The monitor shows a rate of 88 with sinus rhythm with PVCs. Imaging/x-ray results per my interpretation: Chest x-ray does show some mild cardiomegaly. There was no CHF or pneumonia. Chronic Medical/Social conditions affecting care: Advanced age, recent hospitalization for sepsis. Care/Management discussed with: Case management, the on-call hospitalist. Level of care consideration(s): After review of the information above and other included data: --I believe the patient requires escalation of care to admission DISPOSITION: Admission Past Med/Surg History Problem List History of sepsis (Acute) Elevated troponin (Acute) Somnolence (Acute) Fluid overload (Acute) Pedal edema (Acute) Anemia (Acute) Weakness (Acute) Pressure ulcer of ischium History of total right knee replacement Infection of left foot (Acute) Cellulitis of left leg (Acute) Severe sepsis (Acute) Severe sepsis Elevated PSA Frequent UTI Chronic pruritus Skin tear of left upper extremity (Acute) Multiple open wounds of lower extremity (Acute) Complicated wound infection (Acute) Anemia (Acute) HFrEF (heart failure with reduced ejection fraction) Venous stasis ulcers of both lower extremities Non-pressure chronic ulcer of other part of left foot limited to breakdown of skin Non-pressure chronic ulcer of other part of right foot limited to breakdown of skin Peripheral arterial disease (Chronic) Pressure ulcer of right foot, stage 3 Chronic diastolic heart failure Atrial flutter (Acute) Atrial fibrillation with RVR Open wound of knee (Acute) Venous ulcers of both lower extremities (Acute) Pain associated with wound Anemia (Acute) Bilateral cellulitis of lower leg (Acute) Peripheral neuropathy Chronic venous stasis Cellulitis of both feet (Acute) Rheumatoid arthritis Open wound of foot Chronic wound (Acute) Lymphangitis of lower extremity Hypomagnesemia (Acute) Open wound of left arm with tendon injury Acute kidney injury superimposed on chronic kidney disease (Acute) Open wound of left foot (Acute) Open wound of right foot (Acute) Venous ulcer of left leg (Acute) Dislocation, hip closed (Acute) Rotator cuff arthropathy of both shoulders Left shoulder pain Acquired foot deformity (Chronic) Traumatic wound (Acute) Pressure ulcer of left foot, stage 3 (Acute) Abnormal ankle brachial index (Acute) Cervical radiculopathy Neuropathy Abdominal wall abscess (Acute) HFrEF (heart failure with reduced ejection fraction) EF 40% Mar 2022, improved 55-60% August 2022 Lumbar stenosis Osteoarthritis of right knee Anxiety and depression Hypertension Coronary artery disease Atherogenic dyslipidemia Lumbar radiculopathy Lower extremity weakness Degenerative spondylolisthesis Chronic low back pain Scoliosis of lumbar region due to degenerative disease of spine in adult Septic joint of right knee joint Incisional hernia Adjustment disorder with mixed anxiety and depressed mood Medical History Right rib fracture IPMN (intraductal papillary mucinous neoplasm) Cardiomyopathy Heart failure with improved ejection fraction (HFimpEF) Foot ulcer, right Idiopathic peripheral neuropathy Spinal stenosis, lumbar region with neurogenic claudication Depression History of MRSA infection Complicated urinary tract infection Infection of prosthetic right knee joint Obstructive sleep apnea Obesity hypoventilation syndrome Atelectasis Elevated brain natriuretic peptide (BNP) level Bronchitis due to human metapneumovirus (hMPV) Infection due to human metapneumovirus (hMPV) Cough History of infection of total joint prosthesis of knee Weakness MRSA bacteremia Hypoxia Hypotension Hyperkalemia Lethargy Ischemic ulcer of left foot Ischemic ulcer of right foot Bilateral lower leg cellulitis PVD (peripheral vascular disease) Atrial flutter with rapid ventricular response Open wound of left lower extremity Sepsis Infected hardware in right leg Chronic infection of right knee Venous ulcer of right leg History of immunosuppressive therapy Heart failure with preserved ejection fraction GERD (gastroesophageal reflux disease) Septicemia due to Streptococcus pneumoniae Respiratory failure with hypoxia Hypomagnesemia Pneumonia Benign essential hypertension Lumbar stenosis Hx of staphylococcal infection 03/2022, w/"bacterial infection" at the same, in the rt. knee, occurrred during atrial fibrillation episode. "when he woke up, he couldn't walk." Atrial fibrillation episode occurred in 03/2022, taken to [facility] in [place], admitted to ICU for 1-2 weeks (was not intubated, but wasn't "awake either"), then to cardiac unit, then to rehab at [facility] in [place]; f/u dr. guerra in [place]>will be starting to see a passenger flagman at [facility] 2nd week of 08/2022 Myocardial Infarction "a silent one, 2019" Sleep apnea no device Surgical History Status post revision of total replacement of right knee Hx of Achilles tendon repair rt. Hx of knee surgery rt. patellar tendon repair Hx of rotator cuff surgery bilateral Hx of total knee replacement lt. Hx of total hip arthroplasty rt. History of colostomy reversal History of bowel resection for diverticulitis; w/colostomy placement for 3-4 months Hx of hernia repair near former colostomy site History of esophagogastroduodenoscopy (EGD) Hx of colonoscopy Last Colonoscopy 08/14/22, repeat 3 years in 2025 Hx of bilateral cataract extraction History of heart artery stent ~3 years ago, x2 stents, done in [place]; f/u dr guerra, [place]>will be seeing new cardio at [place] [facility] August 2022. History of cardiac cath ~3 years ago, SOB and "felt like throat was constricting", had "silent heart attack", x2 stents, done in [place] Family History Grandmother (Maternal) Diabetes Daughter Diabetes Father Suicide Hypertension Denies family history of Ovarian cancer Prostate cancer Myocardial infarction Breast cancer Lung cancer Colorectal cancer Stroke Social History Smoking Status: Never smoker Second Hand Exposure: No; Do You Dip or Chew Tobacco: No; Hx Alcohol Use: Yes Alcohol type: wine Alcohol Intake Frequency: 4 or More x per/Week Hx Substance Use: No Preferred Language: Serbian Communication Ability: Effective Visual Impairment: Limited Hearing Ability: Normal [employer] 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 Required: No Beliefs That Will Affect Care: None marital status: Single Current Living Situation: Personal Care Facility Current Living Situation Comment: Independant living at [facility] current occupational status: retired How many Children do You have: 2 Feels Safe at Home: Yes Childhood Exposure to Second-Hand Smoke: Yes Diet: regular caffeine: Yes Dental Care, Regularly: Yes Physical Activity Frequency: Does not Exercise Seatbelt Use: always Sunscreen Use: Yes Assistive Devices: BiPap and Wheelchair Allergies Allergies Allergy/AdvReac Type Severity Reaction Status Date / Time cat dander Allergy Severe CAT Verified 05/01/25 18:18 HAIR---Swelling of Lip/Tongue/Throat Home Meds Home Medications Medication Instructions Recorded Confirmed aspirin 81 mg tablet,delayed 81 mg PO QAM 08/07/22 05/01/25 release (Adult Low Dose Aspirin) rivaroxaban 20 mg tablet (Xarelto) 20 mg PO DAILY 11/19/23 05/01/25 sennosides 8.6 mg tablet 8.6 mg PO BID 12/15/23 05/01/25 mirtazapine 30 mg tablet 15 mg PO UD 01/21/24 05/01/25 nitroglycerin 0.4 mg sublingual 0.4 mg sublingual DIRECTED PRN 01/21/24 05/01/25 tablet chest pin tamsulosin 0.4 mg capsule 0.4 mg PO HS 07/22/24 05/01/25 folic acid 1 mg tablet 1 mg PO DAILY 08/12/24 05/01/25 omeprazole 20 mg capsule,delayed 20 mg PO DAILY 08/12/24 05/01/25 release thiamine HCl (vitamin B1) 100 mg 100 mg PO DAILY 08/12/24 05/01/25 tablet netarsudil 0.02 %-latanoprost 1 drp ophthalmic (eye) HS 11/14/24 05/01/25 0.005 % eye drops (Rocklatan) duloxetine 30 mg capsule,delayed 30 mg PO DAILY 11/25/24 05/01/25 release sprinkle budesonide 0.5 mg/2 mL suspension 0.5 mg NEB BIDR 01/16/25 05/01/25 for nebulization bumetanide 0.5 mg tablet 0.5 mg PO DAILY 01/16/25 05/01/25 cholecalciferol (vitamin D3) 10 20 mcg PO DAILY 01/16/25 05/01/25 mcg (400 unit) tablet (Vitamin D3) ferrous sulfate 325 mg (65 mg 325 mg PO .Q OTHER DAY 01/16/25 05/01/25 iron) tablet food supplemt, lactose-reduced 1 ea PO DAILY 01/16/25 05/01/25 (Ensure oral liquid) gabapentin 600 mg tablet 600 mg PO TID 01/16/25 05/01/25 pravastatin 40 mg tablet 40 mg PO HS 01/16/25 05/01/25 sodium chloride 0.65 % nasal spray 1 spray intranasal DAILY PRN Dry 01/16/25 05/01/25 aerosol nose vitamin B complex 1 tab PO DAILY 01/16/25 05/01/25 vitamin E 268 mg (400 unit) capsule 2 cap PO DAILY 01/16/25 05/01/25 duloxetine 60 mg capsule,delayed 60 mg PO DAILY 02/01/25 05/01/25 release Lactobacillus acidophilus 1 tab PO DAILY 02/10/25 05/01/25 cyanocobalamin (vitamin B-12) 500 500 mcg PO DAILY 02/10/25 05/01/25 mcg lozenges (Vitamin B-12) omega-3 fatty acids 1,000 mg 1,000 mg PO QAM 02/10/25 05/01/25 capsule acetaminophen 325 mg tablet 325 mg PO TID PRN Pain 04/04/25 05/01/25 (Tylenol) bimatoprost 0.01 % eye drops 1 drp ophthalmic (eye) PM 04/04/25 05/01/25 buprenorphine 5 mcg/hour weekly 1 patch transdermal WK 04/04/25 05/01/25 transdermal patch carbamide peroxide 6.5 % ear drops 5 drp otic (ear) Q12H 04/04/25 05/01/25 diclofenac sodium 1 % topical gel 2 g topical BID PRN hand pain 04/04/25 05/01/25 formoterol fumarate 20 mcg/2 mL 20 mcg NEB BIDR 04/04/25 05/01/25 solution for nebulization (Perforomist) ipratropium 0.5 mg-albuterol 3 mg 3 ml NEB Q6R PRN shortness of 04/04/25 05/01/25 (2.5 mg base)/3 mL nebulization breath or wheezing soln lanolin alcohols-mineral 1 applic topical DAILY PRN Dry Skin 04/04/25 05/01/25 oil-w.petrolatum-ceresin topical cream (Eucerin topical cream) lidocaine 5 % topical patch 1 - 2 patch topical DAILY PRN Pain 04/04/25 05/01/25 menthol 0.44 %-zinc oxide 20.6 % 1 applic topical BID 04/04/25 05/01/25 topical ointment (Calmoseptine) multivitamin with minerals 1 cap PO DAILY 04/04/25 05/01/25 nutritional supplements 1 ea PO BID 04/04/25 05/01/25 oxycodone 5 mg tablet 5 mg PO TID PRN Pain 04/04/25 05/01/25 trazodone 50 mg tablet 0 mg PO UD 04/04/25 05/01/25 daptomycin 500 mg intravenous 750 mg IV DAILY 05/01/25 05/01/25 solution ertapenem 1 gram solution for 1 g IV DAILY 05/01/25 05/01/25 injection glucosamine sulfate 500 mg tablet 500 mg PO DAILY 05/01/25 05/01/25 melatonin 3 mg tablet 3 mg PO HS 05/01/25 05/01/25 Previous Rx's Medication Instructions Recorded amiodarone 200 mg tablet 200 mg PO QAM #90 tabs 12/02/24 levetiracetam 500 mg tablet 500 mg PO BID 90 days #180 tabs 01/03/25 (Keppra) metoprolol succinate 25 mg 12.5 mg (1/2 x 25 mg) PO DAILY #15 01/19/25 tablet,extended release 24 hr tabs sulfamethoxazole 800 1 tab PO BID #60 tabs 01/19/25 mg-trimethoprim 160 mg tablet (Bactrim DS) nebulizers #1 ea 01/24/25 Results & Data (ED) Vital Signs Vital Signs - 24 hr 05/01/25 16:00 05/01/25 16:17 05/01/25 16:21 Temperature 36.2 C L Temperature Source Temporal Artery Scan Pulse Rate 82 80 Pulse Rate [Apical] Pulse Rate from SpO2 Sensor 80 Respiratory Rate 20 18 Respiratory Effort / Characteristics Non-Labored Spontaneous Respiratory Depth Normal Respiratory Pattern Regular Blood Pressure 132/73 136/80 Blood Pressure [Left Arm] Blood Pressure Mean 92 98 Blood Pressure Mean [Left Arm] Blood Pressure Position Sitting Pulse Oximetry 93 91 Oxygen Delivery Method Room Air Room Air Oxygen Flow Rate Sepsis Recent Fever Within 48 Hours No Sepsis New/Unexplained Change in Mental Status No Sepsis Action Taken by Nursing No Action Required 05/01/25 16:22 05/01/25 16:31 05/01/25 16:31 Temperature Temperature Source Pulse Rate 82 Pulse Rate [Apical] 88 Pulse Rate from SpO2 Sensor Respiratory Rate 24 Respiratory Effort / Characteristics Respiratory Depth Respiratory Pattern Blood Pressure Blood Pressure [Left Arm] Blood Pressure Mean Blood Pressure Mean [Left Arm] Blood Pressure Position Pulse Oximetry 92 92 Oxygen Delivery Method Room Air Room Air Oxygen Flow Rate Sepsis Recent Fever Within 48 Hours Sepsis New/Unexplained Change in Mental Status Sepsis Action Taken by Nursing 05/01/25 18:00 Temperature Temperature Source Pulse Rate Pulse Rate [Apical] 76 Pulse Rate from SpO2 Sensor Respiratory Rate 20 Respiratory Effort / Characteristics Respiratory Depth Respiratory Pattern Blood Pressure Blood Pressure [Left Arm] 140/74 Blood Pressure Mean Blood Pressure Mean [Left Arm] 96 Blood Pressure Position Pulse Oximetry 96 Oxygen Delivery Method Nasal Cannula Oxygen Flow Rate 1 Sepsis Recent Fever Within 48 Hours Sepsis New/Unexplained Change in Mental Status Sepsis Action Taken by [facility] Medications Current Medication List: was personally reviewed by me Laboratory Data Attestation: I reviewed the patient's lab results. 05/01/25 16:55 05/01/25 16:55 Lab Results 11/05/01/25 05/01/25 Range/Units 16:55 18:20 18:44 WBC 7.27 (4.8-10.8) K/ul RBC 3.34 L (4.70-6.10) M/uL Hgb 9.3 L (14.0-18.0) g/dL Hct 29.7 L (42.0-52.0) % MCV 88.9 (80.0-100.0) fL MCH 27.8 (25.0-34.0) pg MCHC 31.3 L (32.0-36.0) g/dL RDW Std Deviation 51.8 H (36.4-46.3) fL RDW Coeff of Sammie 15.9 H (11.5-14.5) % Plt Count 196 (130-400) K/uL MPV 10.1 (9.4-12.4) fL Immature Gran % (Auto) 0.1 % Neut % (Auto) 66.4 % Lymph % (Auto) 11.8 % Toole % (Auto) 12.5 % Eos % (Auto) 8.5 % Baso % (Auto) 0.7 % Neut # (Auto) 4.82 (1.40-6.50) K/uL Lymph # (Auto) 0.86 L (1.20-3.40) K/uL Toole # (Auto) 0.91 H (0.11-0.59) K/uL Eos # (Auto) 0.62 H (0.00-0.50) K/uL Baso # (Auto) 0.05 (0.00-0.20) K/uL Immature Gran # (Auto) 0.01 (0.01-0.20) K/uL VBG pH 7.39 (7.36-7.41) VBG pCO2 50 (38-50) mmHg VBG pO2 36 mmHg VBG HCO3 30 mmol/L VBG O2 Saturation < 60.0 % VBG Base Excess 4.2 mEq/L Sodium 138 (136-145) mmol/L Potassium 3.8 (3.5-5.1) mmol/L Chloride 101 (98-107) mmol/L Carbon Dioxide 30 (21-32) mmol/L Anion Gap 7 (3-11) BUN 25 H (6-23) mg/dl Creatinine 1.09 (0.6-1.4) mg/dl Est Cr Clr Drug Dosing Not Reportable eGFR 68.18 BUN/Creatinine Ratio 22.9 H (10-20) Glucose 113 H (70-99(Fasting)) mg/dl Lactate 1.4 (0.4-2.0) mmol/L Calcium 8.5 L (8.6-10.3) mg/dl Magnesium 1.7 (1.7-2.4) mg/dl Total Bilirubin 0.5 (0.2-1.0) mg/dl AST 52 H (13-39) U/L ALT 28 (7-52) U/L Alkaline Phosphatase 91 (34-104) U/L Ammonia 32.0 (18-72) umol/L Troponin I High Sens 28.0 H 31.9 H (0-20) pg/ml Total Protein 6.5 (6.0-8.3) gm/dl Albumin 3.3 L (3.4-5.0) gm/dl Globulin 3.2 (2.5-4.0) gm/dl Albumin/Globulin Ratio 1.0 (0.9-2) TSH 2.946 (0.300-4.500) uIu/ml Urine Color Dark Yellow Urine Appearance Clear (Clear) Urine pH 5.0 (4.5-7.5) Ur Specific Garland 1.016 (1.000-1.030) Urine Protein Negative (Negative) Urine Glucose (UA) Negative (Negative) Urine Ketones Negative (Negative) Urine Blood Negative (Negative) Urine Nitrite Negative (Negative) Urine Bilirubin Negative (Negative) Urine Urobilinogen Negative (Negative) Ur Leukocyte Esterase 1+ H (Negative) Urine WBC (Auto) 0-5 (0-5) /hpf Urine RBC (Auto) 0-2 (0-2) /hpf U Hyaline Cast (Auto) 3-5 H (0-2) /lpf U Epithel Cells (Auto) 0-2 (0-2) /hpf Urine Bacteria (Auto) None Seen (None Seen) Urine Comment Administered Medications Discontinued Medications Bumetanide 1 mg/ Syringe 4 mls @ 4 mls/min IV NOW STA Stop: 05/01/25 17:53 Last Admin: 05/01/25 18:50 Dose: 4 mls/min Documented By: riaz Imaging Data Radiologist's Impression: Chest X-Ray 05/01/25 16:10 Clinical History: Weakness Technique: A frontal view of the chest was obtained Comparison is made of the prior examination dated 04/04/2025 Findings: There are no confluent pulmonary infiltrates. The heart size is at the upper limit of normal. No pleural effusion or pneumothorax is seen. There is an unchanged right lower lung nodule, likely a benign calcified granuloma No fracture is noted. There is a right arm PICC line with its tip in the SVC Impression: Unchanged right lung nodule, likely a benign calcified granuloma Electronically signed by Lucas Ibanez 05-01-2025 6:23 PM Discharge Plan Visit Data Chief Complaint: Line Placement Stated Complaint: PICC LINE CAME OUT LAST NIGHT, ABX, WEAKNESS ED Provider: Maxime Loomis Discharge Problem: Weakness, Anemia, Pedal edema, Fluid overload, Somnolence, Elevated troponin, History of sepsis Patient Disposition: Admitted As Inpatient Condition: Fair Discharge Instructions Interventions: ED Discharge Assessment Last Done: 05/01/25 21:37 Discharge Problem: Anemia Qualifiers: Anemia type: unspecified type Qualified Code(s): D64.9 - Anemia, unspecified Fluid overload Qualifiers: Hypervolemia type: unspecified Qualified Code(s): E87.70 - Fluid overload, unspecified
[2025-05-01 17:10] LABS: Base Excess VBG 4.2 mEq/L; HCO3 VBG 30 mmol/L; Oxygen Saturation VBG < 60.0 %; PCO2 VBG 50 mmHg (38-50); PO2 VBG 36 mmHg; pH VBG 7.39 (7.36-7.41)
[2025-05-01 17:15] LABS: Hematocrit (blood only) 29.7 % (42.0-52.0); Hemoglobin 9.3 g/dL (14.0-18.0); Immature Granulocytes # (auto) 0.01 K/uL (0.01-0.20); Immature Granulocytes % (auto) 0.1 %; Mean Corpuscular Hemoglobin 27.8 pg (25.0-34.0); Mean Corpuscular Volume 88.9 fL (80.0-100.0); Platelet Count 196 K/uL (130-400); RDW Standard Deviation 51.8 fL (36.4-46.3); Red Blood Count 3.34 M/uL (4.70-6.10); White Blood Count 7.27 K/ul (4.8-10.8)
[2025-05-01 17:39] LABS: Alanine Aminotransferase 28 U/L (7-52); Albumin Globulin Ratio 1.0 (0.9-2); Albumin Level 3.3 gm/dl (3.4-5.0); Alkaline Phosphatase 91 U/L (34-104); Anion Gap 7 (3-11); Bilirubin,Total 0.5 mg/dl (0.2-1.0); Blood Urea Nitrogen 25 mg/dl (6-23); Calcium 8.5 mg/dl (8.6-10.3); Carbon Dioxide 30 mmol/L (21-32); Chloride 101 mmol/L (98-107); Globulin 3.2 gm/dl (2.5-4.0); Glucose 113 mg/dl (70-99(Fasting)); Magnesium 1.7 mg/dl (1.7-2.4); Potassium 3.8 mmol/L (3.5-5.1); Sodium 138 mmol/L (136-145); Total Protein 6.5 gm/dl (6.0-8.3)
[2025-05-01 17:51] LABS: Thyroid Stimulating Hormone 2.946 uIu/ml (0.300-4.500)
--- NOTE | 2025-05-01 18:23 | XRay Report ---
Clinical History: Weakness Technique: A frontal view of the chest was obtained Comparison is made of the prior examination dated 04/04/2025 Findings: There are no confluent pulmonary infiltrates. The heart size is at the upper limit of normal. No pleural effusion or pneumothorax is seen. There is an unchanged right lower lung nodule, likely a benign calcified granuloma No fracture is noted. There is a right arm PICC line with its tip in the SVC Impression: Unchanged right lung nodule, likely a benign calcified granuloma Electronically signed by Lucas Ibanez 05-01-2025 6:23 PM
[2025-05-01] MEDS: BUMETANIDE 1 MG in SYRINGE 0 ML IV STA (18:50)
[2025-05-01 18:51] LABS: Appearance Urine Clear (Clear); Bacteria Urine Automated None Seen (None Seen); Epithelial Cell Urine Auto 0-2 /hpf (0-2); Glucose Urine UA Negative (Negative); RBC Urine Automated 0-2 /hpf (0-2); WBC Urine Automated 0-5 /hpf (0-5)
--- NOTE | 2025-05-01 19:27 | History & Physical Report ---
Date of Service May 01, 2025 Assessment & Plan (1) Lethargy: (2) Edema of right upper extremity: (3) Multiple open wounds of lower extremity: (4) Bilateral conjunctivitis: (5) Elevated troponin: Plan 79-year-old male PMHx HFrEF, PAD, A-flutter, peripheral neuropathy, RA, pressure ulcers of bilateral feet, CAD, cardiomyopathy, IPMN, depression, LEONARD, OHS, and PVD presenting for malfunctioning PICC line per home health nurse. Evaluation without clear infection, stable VBG and grossly unremarkable electrolytes with exception of calcium at 8.5. Lactate is normal. Troponin slightly elevated at 28, pending the repeat. Admission for PICC line management. #Lethargy Ongoing ~ 1 week, associated weakness as noted per son. Utilities CPAP at night, difficult to have mask around face d/t facial hair. No infectious symptoms per son or patient. No focal deficits, dysarthria, facial droop. Pt easily arousable and aware of location/year/self. AG WNL, ammonia WNL, TSH WNL. No gross electrolyte abnormalities otherwise. No new murmur ascultated. Has been receiving abx via PICC line as prescribed with exception of the day of arrival d/t PICC line malfunction. Unclear exact etiology of lethargy, pending remaining workup. - CBC without leukocytosis/leukopenia, H/H near baseline (9.3/29.1); VBGs WNL; lactate 1.4; ammonia 32; TSH 2.946; trop mildly elevated (28.0 -> 31.9) - CBC am, trend trop - Blood cx pending - UA negative for infection - CXR unchanged R lung nodule - CT head no acute findings - RUE Doppler w/o DVT - PAMELA 09/2024 EF 60-65% -- consider repeating if negative workup - Hold potential medications that can cause alterations in mentation - hold gabapentin + melatonin at time of admission, add back once appropriate - Ertapenem + daptomycin-- will adjust to meropenem + linezolid -- HOLD medications impacting serotonin while on linezolid (mirtazapine, duloxetine) - PT/OT ordered - appreciate input + recs - Consider ID consult #RUE edema/Malfunctioning PICC line (resolved) History of severe sepsis, maintained on ertapenem and daptomycin for total of 6 weeks duration, provided via PICC line. PICC line malfunction day of arrival for home health nurse, found to be kinked and now fixed/functioning as appropriate. RUE with edema, erythema, and warm to touch. Was concerned for VTE, however is on Xarelto (last dose 05/01). - CXR did reveal R arm PICC line w/ tip in SVC - Doppler RUE PICC line terminating proximal basilic vein, no DVT - +/- PICC line replacement?? #Multiple open wounds LE/Polymicrobial immune complex infectious disease history Follows with wound care, most recent visit 04/14/2025. 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 Prior admission to [facility] from 08/29/2024-09/14/24 for recurrent R knee MRSA PJI c/b MRSA bacteremia s/p I&D. - CBC stable, lactate WNL - Blood cx pending -- extensive bacterial history -- MRSA, Pseudomonas/ESBL Proteus/Enterobacter - Currently on dapto + ertapenem -- adjust to meropenem + linezolid at time of admission -- adjust as medically appropriate - Wound care -- Per wound visit note (04/14/2025) -- Dressed with Silvercel daily bilaterally - Consider ID consult -- +/- need to add rifampin at this time, previously a recommendation as a next step as necessary - Pt was to follow with [facility] ortho - consider ortho consult #Bilateral conjunctivitis Bilat. eye crusting, ~ 4 days total. - Polytrim drops - 1 drop q3h - Cont home eye drops - Contact precautions #Elevated troponin No CP, SOB, or palpitations - Trop 28.0, 31.9 on repeat - trend - EKG sinus rhythm with PVCs and nonspecific IVCB @ 75 bpm - Likely 2/2 demand #Anemia- H/o such, near baseline; H/H at admission 9.3/29.7; Vitamin B12, ferrous sulfate, folic acid - continue, trend H/H as appropriate #HFrEF- BNP 240; Received IV bumetanide in ED; Bumetanide - continue oral formulation #A-fib/history of A-flutter- Amiodarone, metoprolol, Xarelto - continue #RA- Glucosamine - continue #HLD- Pravastatin - OK to continue now that dapto d/c, restart 05/02 #Myoclonic jerking - Keppra - continue #Idiopathic neuropathy- Gabapentin - hold at time of admission #LEONARD- BiPAP HS -- continue #Psych- Duloxetine, mirtazapine, ? trazodone - Hold all while on linezolid #GERD- Omeprazole - continue #CAD- ASA - continue #BPH- Tamsulosin - continue #Pain- Buprenorphine patch, ? oxycodone; PDMP independently reviewed at time of admission, appears oxycodone last obtained 02/2025 - continue per normal schedule/dosing, held oxy night of admission ? impacting mentation Please call sonJaiden, @ [phone] with updates. Dispo: Admit, PCU VTE Prophylaxis: On Xarelto - continue This document was dictated utilizing [employer]. Please excuse any grammatical errors that may be secondary to use of this software. Admission and Anticipated Discharge Date Admission Date: 05/01/2025 History of Present Illness Chief Complaint: Fatigue Primary Care Provider: Molly Rios NP 79-year-old male PMHx HFrEF, PAD, A-flutter, peripheral neuropathy, RA, pressure ulcers of bilateral feet, CAD, cardiomyopathy, IPMN, depression, LEONARD, OHS, and PVD presenting for malfunctioning PICC line per home health nurse. Patient's most recent hospital admission 04/04/2025 until 04/08/2025 for sepsis and management of chronic conditions. The patient son, Jaiden, helps to provide the history. Reports that the patient was recently in the hospital for severe sepsis for a L foot infection, and discharged home on IV antibiotics for total duration of 6 weeks which he has been taking as scheduled. Approximately 1 week ago he was [facility] the [facility]oscopy when she received anesthesia. Following this, his son notes that the patient has been more weak and fatigued than before. The symptoms have gotten to the point where he has had a few stumbles/falls at [facility], with the most recent being his inability to get himself up off of the ground after slowly lowering himself. Additionally, his son walked into his room "a few days ago" and the patient was trying to get out of his bed but was half in and half out, unable to move himself further due to weakness. His son notes that the patient has also had increased swelling in his BLE over the past week, but is unsure if the patient has been taking his diuretics as prescribed especially when he has appointments scheduled because it "makes him pee so often." Pt's son denies noticing or hearing the patient complain of additional infectious symptoms to include CP, SOB, dizziness, abdominal pain, N/V/D/C, or F/C. Pt wakes briefly for conversation, agrees that he is tired and feels weak but no specific extremity weakness, pain, SOB, CP, or additional concerns. ED evaluation reveals CBC without leukocytosis or leukopenia, H&H 9.3/29.7; VBG WNL; CMP BUN 25, ratio 22.9, glucose 113, calcium 8.5, AST 52, BUN 3.3; lactate 1.4; magnesium 1.7; troponin 28.0, pending repeat; TSH 2.946; UA negative for infection; CXR unchanged R lung nodule; EKG sinus rhythm with occasional PVCs and nonspecific intraventricular conduction block at 75 bpm.; Provided with bumetanide 1 philip IV in ED. Please see Dr. Weinstein's attestation for adjustments/additions to treatment plan. Allergies Allergy/AdvReac Type Severity Reaction Status Date / Time cat dander Allergy Severe CAT Verified 05/01/25 18:18 HAIR---Swelling of Lip/Tongue/Throat Home Medications Medication Instructions Recorded Confirmed Type aspirin 81 mg tablet,delayed 81 mg PO QAM 08/07/22 05/01/25 History release (Adult Low Dose Aspirin) rivaroxaban 20 mg tablet (Xarelto) 20 mg PO DAILY 11/19/23 05/01/25 History sennosides 8.6 mg tablet 8.6 mg PO BID 12/15/23 05/01/25 History mirtazapine 30 mg tablet 15 mg PO UD 01/21/24 05/01/25 History nitroglycerin 0.4 mg sublingual 0.4 mg sublingual DIRECTED PRN 01/21/24 05/01/25 History tablet chest pin tamsulosin 0.4 mg capsule 0.4 mg PO HS 07/22/24 05/01/25 History folic acid 1 mg tablet 1 mg PO DAILY 08/12/24 05/01/25 History omeprazole 20 mg capsule,delayed 20 mg PO DAILY 08/12/24 05/01/25 History release thiamine HCl (vitamin B1) 100 mg 100 mg PO DAILY 08/12/24 05/01/25 History tablet netarsudil 0.02 %-latanoprost 1 drp ophthalmic (eye) HS 11/14/24 05/01/25 Histo ry 0.005 % eye drops (Rocklatan) duloxetine 30 mg capsule,delayed 30 mg PO DAILY 11/25/24 05/01/25 History release sprinkle amiodarone 200 mg tablet 200 mg PO QAM #90 tabs 12/02/24 05/01/25 Rx levetiracetam 500 mg tablet 500 mg PO BID 90 days #180 tabs 01/03/25 05/01/25 Rx (Keppra) budesonide 0.5 mg/2 mL suspension 0.5 mg NEB BIDR 01/16/25 05/01/25 History for nebulization bumetanide 0.5 mg tablet 0.5 mg PO DAILY 01/16/25 05/01/25 History cholecalciferol (vitamin D3) 10 20 mcg PO DAILY 01/16/25 05/01/25 History mcg (400 unit) tablet (Vitamin D3) ferrous sulfate 325 mg (65 mg 325 mg PO .Q OTHER DAY 01/16/25 05/01/25 History iron) tablet food supplemt, lactose-reduced 1 ea PO DAILY 01/16/25 05/01/25 History (Ensure oral liquid) gabapentin 600 mg tablet 600 mg PO TID 01/16/25 05/01/25 History pravastatin 40 mg tablet 40 mg PO HS 01/16/25 05/01/25 History sodium chloride 0.65 % nasal spray 1 spray intranasal DAILY PRN Dry 01/16/25 History aerosol nose vitamin B complex 1 tab PO DAILY 01/16/25 05/01/25 History vitamin E 268 mg (400 unit) capsule 2 cap PO DAILY 01/16/25 05/01/25 History metoprolol succinate 25 mg 12.5 mg (1/2 x 25 mg) PO DAILY #15 01/19/25 05/01/25 Rx tablet,extended release 24 hr tabs sulfamethoxazole 800 1 tab PO BID #60 tabs 01/19/25 05/01/25 Rx mg-trimethoprim 160 mg tablet (Bactrim DS) nebulizers #1 ea 01/24/25 04/28/25 Rx duloxetine 60 mg capsule,delayed 60 mg PO DAILY 02/01/25 05/01/25 History release Lactobacillus acidophilus 1 tab PO DAILY 02/10/25 05/01/25 History cyanocobalamin (vitamin B-12) 500 500 mcg PO DAILY 02/10/25 05/01/25 History mcg lozenges (Vitamin B-12) omega-3 fatty acids 1,000 mg 1,000 mg PO QAM 02/10/25 05/01/25 History capsule acetaminophen 325 mg tablet 325 mg PO TID PRN Pain 04/04/25 05/01/25 History (Tylenol) bimatoprost 0.01 % eye drops 1 drp ophthalmic (eye) PM 04/04/25 05/01/25 History buprenorphine 5 mcg/hour weekly 1 patch transdermal WK 04/04/25 05/01/25 History transdermal patch carbamide peroxide 6.5 % ear drops 5 drp otic (ear) Q12H 04/04/25 05/01/25 History diclofenac sodium 1 % topical gel 2 g topical BID PRN hand pain 04/04/25 05/01/25 History formoterol fumarate 20 mcg/2 mL 20 mcg NEB BIDR 04/04/25 05/01/25 History solution for nebulization (Perforomist) ipratropium 0.5 mg-albuterol 3 mg 3 ml NEB Q6R PRN shortness of 04/04/25 05/01/25 History (2.5 mg base)/3 mL nebulization breath or wheezing soln lanolin alcohols-mineral 1 applic topical DAILY PRN Dry Skin 04/04/25 05/01/25 History oil-w.petrolatum-ceresin topical cream (Eucerin topical cream) lidocaine 5 % topical patch 1 - 2 patch topical DAILY PRN Pain 04/04/25 05/01/25 History menthol 0.44 %-zinc oxide 20.6 % 1 applic topical BID 04/04/25 05/01/25 History topical ointment (Calmoseptine) multivitamin with minerals 1 cap PO DAILY 04/04/25 05/01/25 History nutritional supplements 1 ea PO BID 04/04/25 05/01/25 History oxycodone 5 mg tablet 5 mg PO TID PRN Pain 04/04/25 05/01/25 History trazodone 50 mg tablet 0 mg PO UD 04/04/25 05/01/25 History daptomycin 500 mg intravenous 750 mg IV DAILY 05/01/25 05/01/25 History solution ertapenem 1 gram solution for 1 g IV DAILY 05/01/25 05/01/25 History injection glucosamine sulfate 500 mg tablet 500 mg PO DAILY 05/01/25 05/01/25 History melatonin 3 mg tablet 3 mg PO HS 05/01/25 05/01/25 History Past Med/Surg History Problem List (Updated 05/02/25 @ 00:50 by Any Cardozo PA-C) Bilateral conjunctivitis Edema of right upper extremity History of sepsis (Acute) Elevated troponin (Acute) Somnolence (Acute) Fluid overload (Acute) Pedal edema (Acute) Anemia (Acute) Weakness (Acute) Pressure ulcer of ischium History of total right knee replacement Infection of left foot (Acute) Cellulitis of left leg (Acute) Severe sepsis (Acute) Severe sepsis Elevated PSA Frequent UTI Chronic pruritus Skin tear of left upper extremity (Acute) Multiple open wounds of lower extremity (Acute) Complicated wound infection (Acute) Anemia (Acute) HFrEF (heart failure with reduced ejection fraction) Venous stasis ulcers of both lower extremities Non-pressure chronic ulcer of other part of left foot limited to breakdown of skin Non-pressure chronic ulcer of other part of right foot limited to breakdown of skin Peripheral arterial disease (Chronic) Pressure ulcer of right foot, stage 3 Chronic diastolic heart failure Atrial flutter (Acute) Atrial fibrillation with RVR Open wound of knee (Acute) Venous ulcers of both lower extremities (Acute) Pain associated with wound Anemia (Acute) Bilateral cellulitis of lower leg (Acute) Peripheral neuropathy Chronic venous stasis Cellulitis of both feet (Acute) Rheumatoid arthritis Open wound of foot Chronic wound (Acute) Lymphangitis of lower extremity Hypomagnesemia (Acute) Open wound of left arm with tendon injury Acute kidney injury superimposed on chronic kidney disease (Acute) Open wound of left foot (Acute) Open wound of right foot (Acute) Venous ulcer of left leg (Acute) Dislocation, hip closed (Acute) Rotator cuff arthropathy of both shoulders Left shoulder pain Acquired foot deformity (Chronic) Traumatic wound (Acute) Pressure ulcer of left foot, stage 3 (Acute) Abnormal ankle brachial index (Acute) Cervical radiculopathy Neuropathy Abdominal wall abscess (Acute) HFrEF (heart failure with reduced ejection fraction) EF 40% Mar 2022, improved 55-60% August 2022 Lumbar stenosis Osteoarthritis of right knee Anxiety and depression Hypertension Coronary artery disease Atherogenic dyslipidemia Lumbar radiculopathy Lower extremity weakness Degenerative spondylolisthesis Chronic low back pain Scoliosis of lumbar region due to degenerative disease of spine in adult Septic joint of right knee joint Incisional hernia Adjustment disorder with mixed anxiety and depressed mood Medical History Right rib fracture IPMN (intraductal papillary mucinous neoplasm) Cardiomyopathy Heart failure with improved ejection fraction (HFimpEF) Foot ulcer, right Idiopathic peripheral neuropathy Spinal stenosis, lumbar region with neurogenic claudication Depression History of MRSA infection Complicated urinary tract infection Infection of prosthetic right knee joint Obstructive sleep apnea Obesity hypoventilation syndrome Atelectasis Elevated brain natriuretic peptide (BNP) level Bronchitis due to human metapneumovirus (hMPV) Infection due to human metapneumovirus (hMPV) Cough History of infection of total joint prosthesis of knee Weakness MRSA bacteremia Hypoxia Hypotension Hyperkalemia Lethargy Ischemic ulcer of left foot Ischemic ulcer of right foot Bilateral lower leg cellulitis PVD (peripheral vascular disease) Atrial flutter with rapid ventricular response Open wound of left lower extremity Sepsis Infected hardware in right leg Chronic infection of right knee Venous ulcer of right leg History of immunosuppressive therapy Heart failure with preserved ejection fraction GERD (gastroesophageal reflux disease) Septicemia due to Streptococcus pneumoniae Respiratory failure with hypoxia Hypomagnesemia Pneumonia Benign essential hypertension Lumbar stenosis Hx of staphylococcal infection 03/2022, w/"bacterial infection" at the same, in the rt. knee, occurrred during atrial fibrillation episode. "when he woke up, he couldn't walk." Atrial fibrillation episode occurred in 03/2022, taken to [facility], admitted to ICU for 1-2 weeks (was not intubated, but wasn't "awake either"), then to cardiac unit, then to rehab at [facility]; f/u dr. guerra in [place]>will be starting to see a supervisor respiratory at [facility] 2nd week of 08/2022 Myocardial Infarction "a silent one, 2019" Sleep apnea no device Surgical History Status post revision of total replacement of right knee Hx of Achilles tendon repair rt. Hx of knee surgery rt. patellar tendon repair Hx of rotator cuff surgery bilateral Hx of total knee replacement lt. Hx of total hip arthroplasty rt. History of colostomy reversal History of bowel resection for diverticulitis; w/colostomy placement for 3-4 months Hx of hernia repair near former colostomy site History of esophagogastroduodenoscopy (EGD) Hx of colonoscopy Last Colonoscopy 08/14/22, repeat 3 years in 2025 Hx of bilateral cataract extraction History of heart artery stent ~3 years ago, x2 stents, done in [place]; f/u dr guerra, [place]>will be seeing new cardio at [facility] 2nd week of August 2022. History of cardiac cath ~3 years ago, SOB and "felt like throat was constricting", had "silent heart attack", x2 stents, done in [place] Family History Grandmother (Maternal) Diabetes Daughter Diabetes Father Suicide Hypertension Denies family history of Ovarian cancer Prostate cancer Myocardial infarction Breast cancer Lung cancer Colorectal cancer Stroke Social History Smoking Status: Never smoker Second Hand Exposure: No; Do You Dip or Chew Tobacco: No; Hx Alcohol Use: Yes Alcohol type: wine Alcohol Intake Frequency: 4 or More x per/Week Hx Substance Use: No Preferred Language: Kazakh Communication Ability: Effective Visual Impairment: Limited Hearing Ability: Normal Neurosurgical Nurse Practitioner Required: No Beliefs That Will Affect Care: None marital status: Single Current Living Situation: Personal Care Facility Current Living Situation Comment: Independant living at [facility] current occupational status: retired How many Children do You have: 2 Feels Safe at Home: Yes Childhood Exposure to Second-Hand Smoke: Yes Diet: regular caffeine: Yes Dental Care, Regularly: Yes Physical Activity Frequency: Does not Exercise Seatbelt Use: always Sunscreen Use: Yes Assistive Devices: BiPap, Glasses and Wheelchair Review of Systems Review of Systems: All systems reviewed & are unremarkable except as noted in Subjective Physical Exam Physical Exam: General: Somnolent, no acute distress Skin: Warm and dry, chronic skin changes BLE, RUE erythematous/edematous/warm Head: Normocephalic, atraumatic Eyes: PERRL, conjunctivae clear, sclera non-icteric; yellow crusting around eyes/eyelashes ENT: External ear and ear canal without swelling; nose atraumatic; good dentition, tongue normal appearance, pharynx normal Neck: Supple, no LAD Cardio: RRR, no M/G/R, S1 and S2 normal Resp: Wearing O2 via NC; No respiratory distress, Lungs CTA in all lobes bilaterally, no wheezes, rales, or rhonchi Abdomen: Soft, symmetric, nontender; No masses or hepatosplenomegaly; Bowel sounds normoactive MSK: No deformities; pulses palpable and equal; 1+ pitting edema BLE which are presenting wrapped; RUE edematous. Neuro: Sleeping, easily arousable; Sensation intact bilaterally; CN grossly intact Psych: Appropriate mood; Where "[facility]", year "2024". Son, Jaiden, present in room at time of visit. Results & Data Results & Data Vital Signs (Past 12 Hours) Vital Signs Temp Pulse Pulse Resp BP BP Pulse Ox 05/01/25 18:00 76 20 140/74 96 05/01/25 16:31 92 05/01/25 16:31 88 24 92 05/01/25 16:22 82 05/01/25 16:21 80 18 91 05/01/25 16:17 136/80 05/01/25 16:00 36.2 C L 82 20 132/73 93 O2 Del Method O2 Flow Rate 05/01/25 18:00 Nasal Cannula 1 05/01/25 16:31 Room Air 05/01/25 16:31 Room Air 05/01/25 16:22 05/01/25 16:21 Room Air 05/01/25 16:17 05/01/25 16:00 Room Air Laboratory Results 05/01/25 17:49 Aerobic Blood Culture - Pending Blood Anaerobic Blood Culture - Pending 05/01/25 16:55 Aerobic Blood Culture - Pending Blood Anaerobic Blood Culture - Pending 05/01/25 05/01/25 18:20 16:55 WBC 7.27 RBC 3.34 L Hgb 9.3 L Hct 29.7 L MCV 88.9 MCH 27.8 MCHC 31.3 L RDW Std Deviation 51.8 H RDW Coeff of Sammie 15.9 H Plt Count 196 MPV 10.1 Immature Gran % (Auto) 0.1 Neut % (Auto) 66.4 Lymph % (Auto) 11.8 [place] % (Auto) 12.5 Eos % (Auto) 8.5 Baso % (Auto) 0.7 Neut # (Auto) 4.82 Lymph # (Auto) 0.86 L [place] # (Auto) 0.91 H Eos # (Auto) 0.62 H Baso # (Auto) 0.05 Immature Gran # (Auto) 0.01 VBG pH 7.39 VBG pCO2 50 VBG pO2 36 VBG HCO3 30 VBG O2 Saturation < 60.0 VBG Base Excess 4.2 Sodium 138 Potassium 3.8 Chloride 101 Carbon Dioxide 30 Anion Gap 7 BUN 25 H Creatinine 1.09 Est Cr Clr Drug Dosing Not Reportable eGFR 68.18 BUN/Creatinine Ratio 22.9 H Glucose 113 H Lactate 1.4 Calcium 8.5 L Magnesium 1.7 Total Bilirubin 0.5 AST 52 H ALT 28 Alkaline Phosphatase 91 Ammonia 32.0 Troponin I High Sens 28.0 H Total Protein 6.5 Albumin 3.3 L Globulin 3.2 Albumin/Globulin Ratio 1.0 TSH 2.946 Urine Color Dark Yellow Urine Appearance Clear Urine pH 5.0 Ur Specific [place] 1.016 Urine Protein Negative Urine Glucose (UA) Negative Urine Ketones Negative Urine Blood Negative Urine Nitrite Negative Urine Bilirubin Negative Urine Urobilinogen Negative Ur Leukocyte Esterase 1+ H Urine WBC (Auto) 0-5 Urine RBC (Auto) 0-2 U Hyaline Cast (Auto) 3-5 H U Epithel Cells (Auto) 0-2 Urine Bacteria (Auto) None Seen Urine Comment Diagnostic Findings Chest X-Ray 05/01/25 16:10 Clinical History: Weakness Technique: A frontal view of the chest was obtained Comparison is made of the prior examination dated 04/04/2025 Findings: There are no confluent pulmonary infiltrates. The heart size is at the upper limit of normal. No pleural effusion or pneumothorax is seen. There is an unchanged right lower lung nodule, likely a benign calcified granuloma No fracture is noted. There is a right arm PICC line with its tip in the SVC Impression: Unchanged right lung nodule, likely a benign calcified granuloma Electronically signed by Lucas Ibanez 05-01-2025 6:23 PM Medications Administered Bumetanide 1 mg IV ECG Additional Comments: Sinus rhythm with PVCs, nonspecific IVCB 75 bpm, MN 202, QRS 126, QT/Tc 436/486, PRT 38/-29/23 Code Status & VTE Plan Code Status Full Supervising Physician Co-Signing Physician Notes Attending addendum: I have physically seen this patient, have supervised the HEBERT's activities, and agree with the H&P unless as otherwise noted. Assessment and Plan: The patient is an 79-year-old male with a past medical history including HFrE F, PAD, atrial flutter, peripheral neuropathy, RA, bilateral foot pressure ulcers, CAD, cardiomyopathy, IPMN, depression, LEONARD, OHS, and PVD. He presents to the emergency department for assessment of PICC line, that home health nurse was having trouble utilizing at home this morning. During his evaluation in the emergency department, patient was found to have right upper extremity swelling around PICC site. Troponin was mildly elevated at 28, magnesium is 1.7, and patient was showing signs of significant fatigue and lethargy. [facility], and reassessment of treatment of bilateral toe ulcers, for which he has been on daptomycin IV and ertapenem IV in the outpatient setting.He was given bumetanide 1 mg IV from the ED. Lethargy- Family reports this has been ongoing and worsening over the past week, with associated weakness. Patient does open his eyes and respond correctly to questioning. He has been treated on an ongoing basis for toe ulcers on daptomycin IV and ertapenem IV as noted, he also has erythema and warmth surrounding his PICC line in his right upper extremity. Laboratory workup including CBC with differential, basic metabolic panel are normal within his range, and magnesium is mildly low at 1.7. CT head without contrast was negative for acute findings Chest x-ray showed no change in the right lung nodule Urinalysis with negative for infection When the patient is more alert, will need to get PT/OT assessments. Infectious disease- For now, we will change ertapenem to meropenem, and daptomycin to Zyvox IV. It should also cover any potential infection right upper extremity. Follow all cultures Patient will be seen by infectious disease in the morning, who can prescribing his outpatient antibiotics. Right upper extremity edema/ temporarilymalfunctioning PICC line- As noted, IV antibiotics will be changed as above, and follow clinical examination We did order right upper extremity venous Dopplers, which were performed while he was still in the emergency department, and were negative for DVT. Remaining orders and notations as noted PG Care Time/CCT Total # of Minutes Spent Total Time Spent with Patient: Total time spent is greater than 50% in coordination of care (as documented) at patient's floor/unit and/or counseling patient: Coding Level of Care Code 72268 INT INP/OBS CARE 3/75MIN Diagnoses Lethargy R53.83 Edema of right upper extremity R60.0 Multiple opens wound of lower extremity, unspecified laterality, subsequent encounter S81.809D Encounter type: subsequent encounter Laterality: unspecified laterality Bilateral conjunctivitis H10.9 Elevated troponin R79.89 (3) Multiple open wounds of lower extremity Encounter type: subsequent encounter Laterality: unspecified laterality Qualified Code(s): S81.809D - Unspecified open wound, unspecified lower leg, subsequent encounter
[2025-05-01] MEDS ORDERED: POLYETHYLENE (MIRALAX) 17 GM PACK PO PRN (22:08)
[2025-05-01] MEDS ORDERED: MELATONIN 3 MG TAB PO PRN (22:08)
[2025-05-01] MEDS ORDERED: ONDANSETRON INJ 2 MG/ML 2 ML VIAL IV PRN (22:08)
[2025-05-01] MEDS ORDERED: DICLOFENAC SOD 1% GEL 100 GM TUBE EXT PRN (23:00)
[2025-05-01] MEDS ORDERED: LIDOCAINE 5% 1 PATCH TD PRN (23:00)
--- NOTE | 2025-05-01 23:16 | CT Scan Report ---
Exam(s): CT HEAD Without Contrast EXAM: CT Head Without Intravenous Contrast CLINICAL HISTORY: Reason for exam: Encephalopathic. TECHNIQUE: Axial computed tomography images of the head/brain without intravenous contrast. CTDI is 51.41 mGy and DLP is 875.56 mGy-cm. Automated exposure control was utilized for the study. A dose lowering technique was utilized adhering to the principles of ALARA. COMPARISON: Prior head CT from December 13, 2024. FINDINGS: Brain: Unremarkable. No hemorrhage. No significant white matter disease. No edema. Ventricles: Moderate ventriculomegaly. Bones/joints: Unremarkable. No acute fracture. Soft tissues: Unremarkable. Sinuses: Unremarkable as visualized. No acute sinusitis. Mastoid air cells: Unremarkable as visualized. No mastoid effusion. IMPRESSION: No evidence of acute intracranial pathology. Electronically signed by: Trish Alves MD 05/01/25 23:16 PM
--- NOTE | 2025-05-01 23:40 | Ultrasound Report ---
Exam(s): US VENOUS RIGHT UPPER EXTREMITY EXAM: US Duplex Right Upper Extremity Veins CLINICAL HISTORY: Reason for exam: Edema, clot. OTHER: Other Notes: RUE swelling, PICC line in for antibiotics. No thrombus detected within RUE. PICC line noted in right subclavian, axillary, and prox basilic vein. Note slightly limited due to PICC line and sterile dressing over mid upper right arm (was able to visualize vessels over clear portion of dressing). TECHNIQUE: Real-time duplex ultrasound scan of the right upper extremity veins integrating B-mode two-dimensional vascular structure, Doppler spectral analysis, color flow Doppler imaging and compression. COMPARISON: No relevant prior studies available. FINDINGS: Deep veins: Unremarkable. No DVT in the internal jugular, subclavian, axillary, or brachial veins. The veins demonstrate normal color flow, are normally compressible, with normal phasic flow and/or augmentation response. Superficial veins: Unremarkable. No thrombus in the visualized basilic and cephalic veins. Soft tissues: No acute findings. Tubes, lines and devices: There is a PICC line terminating in the proximal basilic vein. IMPRESSION: 1. PICC line terminates in the proximal basilic vein. 2. No deep venous thrombosis in the right upper extremity. Electronically signed by: Austin Parekh MD 05/01/25 23:39 PM
[2025-05-01] MEDS: TRIMETHOPRIM/POLYMYXIN B OP SCH (23:46)
[2025-05-01] MEDS: MEROPENEM 500 MG in SYRINGE 0 ML IV ONE (23:48)
[2025-05-01] MEDS: CARBAMIDE PEROXIDE 6.5% 15 ML BTL OT SCH (23:48)
[2025-05-01] MEDS: LINEZOLID 600 MG/300 ML BAG IV SCH (23:48)
[2025-05-02] MEDS: CHECK BUPRENORPHINE PATCH SCH (01:52)
[2025-05-02] MEDS: Patient's HEIGHT &/or WEIGHT Needed STA (01:52)
[2025-05-02] MEDS: MEROPENEM 500 MG in SYRINGE 0 ML IV SCH (05:20)
[2025-05-02 06:53] LABS: Hematocrit (blood only) 29.7 % (42.0-52.0); Hemoglobin 9.1 g/dL (14.0-18.0); Mean Corpuscular Hemoglobin 27.3 pg (25.0-34.0); Mean Corpuscular Volume 89.2 fL (80.0-100.0); Platelet Count 178 K/uL (130-400); RDW Standard Deviation 51.8 fL (36.4-46.3); Red Blood Count 3.33 M/uL (4.70-6.10); White Blood Count 5.58 K/ul (4.8-10.8)
[2025-05-02] MEDS: REMOVE & WASTE BUTRANS PATCH 1 EA EA SCH (07:10)
[2025-05-02] MEDS: SENNA 8.6 MG TAB PO SCH (08:51)
[2025-05-02] MEDS: AMIODARONE 200 MG TAB PO SCH (08:52)
[2025-05-02] MEDS: METOPROLOL SUCC 25MG EXT REL TAB PO SCH (08:52)
[2025-05-02] MEDS: levETIRAcetam 500 MG TAB PO SCH (08:52)
[2025-05-02] MEDS: CYANOCOBALAMIN (B-12) 500 MCG TABLET PO SCH (08:52)
[2025-05-02] MEDS: GLUCOSAMINE SULFATE 500 MG CAP PO SCH (08:52)
[2025-05-02] MEDS: THIAMINE HCL 100 MG TAB PO SCH (08:53)
[2025-05-02] MEDS: FOLIC ACID 1 MG TAB PO SCH (08:53)
[2025-05-02] MEDS: ASPIRIN 81 MG ECTAB PO SCH (08:53)
[2025-05-02] MEDS: BUMETANIDE 1 MG TAB PO SCH (09:05)
[2025-05-02 11:08] VITALS: RESP 20
--- NOTE | 2025-05-02 13:02 | Electrocardiogram Report ---
Test Reason : Blood Pressure : */* mmHG Vent. Rate : 75 BPM Atrial Rate : 75 BPM P-R Int : 202 ms QRS Dur : 126 ms QT Int : 436 ms P-R-T Axes : 38 -29 23 degrees QTcB Int : 486 ms Sinus rhythm with occasional Premature ventricular complexes Non-specific intra-ventricular conduction block Abnormal ECG When compared with ECG of 04-Apr-2025 15:56, Premature ventricular complexes are now Present Confirmed by Indio Beauchamp ([id number]) on 05/02/2025 1:02:13 PM Referred By: REFERRED SELF Confirmed By: Indio Beauchamp
--- NOTE | 2025-05-02 13:16 | Infectious Disease Consult ---
Date of Consultation May 02, 2025 Assessment & Plan (1) Chronic infection of prosthetic knee: Plan This is a 79-year-old male with a past medical history of hypertension, hyperlipidemia, atrial fibrillation on Xarelto, CAD, HFrEF, rheumatoid arthritis off Rinvoq since 04/13/2024, bilateral total hip arthroplasty, left TKA, right TKA (10/2022 complicated but MRSA PJI/bacteremia (06/2023) status post I&D and poly exchange and vancomycin for 6 weeks followed by Doxy suppression, then developed Enterobacter cloacae right knee PJI (02/2024) status post I&D and cefepime---> ertapenem for 6 weeks followed by doxycycline---> Bactrim suppression, status post admission to [facility] from /03/02 for recurrent right knee MRSA PJI complicated by MRSA bacteremia status post I&D, he was treated with vancomycin and meropenem for 6 weeks and then switched to p.o. Bactrim suppression. He was admitted to [facility] from 5106/08/2024 for fevers and rigors. Exam demonstrated right knee effusion with warmth and tenderness. He was empirically started on daptomycin and ertapenem given history. His right knee pain improved on therapy. He underwent aspiration of the right knee with 33,315 WBC (85.3% PNM's), 25K RBCs. Broad range PCR also sent. Patient was discharge prior to cx results 2/2 family issues. He was discharged on IV daptomycin and ertapenem for presumed recurrence of right knee PJI for 6 weeks to complete on 05/12/25 Plan was for him to follow-up outpatient with orthopedics for possible intervention. He was seen outpatient and No interventions per orthopedics. Plan was for patient to complete 6 weeks of IV antibiotics on 05/15. Cultures finalized as MRSA. Bacterial PCR detected staph aureus. He denies any knee pain, fever, chills, sweats, nausea, vomiting. He presents to the ED on 05/01 for possible malfunction of his PICC line. His son is at bedside and provides additional history. On admission patient is afebrile hemodynamically stable. Labs: WBC 7.27, platelets 196, hemoglobin 9.3, BUN 25, creatinine 1.09. Blood cultures were obtained and are NGTD. Chest x-ray shows unchanged right lung nodule. CT head showed no intracranial pathology. Right upper extremity Doppler showed that the PICC line terminates in the proximal basilic vein. No deep vein thrombosis. He reports tolerating daptomycin and ertapenem. On admission he was switched to meropenem and linezolid. ID consulted for need for rifampin. Microbiology 05/01/2025 blood culture NGTD Prior microbiology 04/07/2025 right knee culture MRSA (sensitive to Bactrim, tetracycline, rifampin, ) 04/07/2025 synovial fluid broad range PCR and sequencing Staph aureus complex DNA detected 03/31/25 foot wound culture Enterobacter cloacae complex (resistant to tobramycin, Bactrim), ESBL Proteus mirabilis sensitive to ertapenem, meropenem, Zosyn, cefoxitin # Recurrent MRSA right knee PJI # History of Right knee Enterobacter PJI Discussion: The patient follows with [facility] and has an extensive infection history: - 03/2022: R septic modoc knee, no Cx sent, treated with empiric vanocmycin and cefepime - 10/2022 R knee replacement, intraoperative Cx negative, was on 4-6 weeks of PO doxycycline - 11/2022 increased knee pain and large effusion, aspiration with 3700 WBCs - 12/2022: MRSA abscess s/p drain for 6 weeks, was on Bactrim and doxycycline interchangable continued on doxy until 12/2024 - 06/2023: mechanical fall, R knee pain worsened, MRSA bacteremia, PJI, treated with DAIR (reivision I&D, synovectomy irrigation, poly exchange, abx beads, at [facility] on 07/01/23), OR Cx + MRSA. Treated with 6 weeks of vancomycin then suppression with doxycycline 100 mg PO BID - 11/06/23 Enterobacter clocae bacteremia, treated with daptomycin + cefepime inpatient, discharged on Bactrim PO DS BID - 02/2024 recurrence of R knee PJI, intraoperative Cx + Enterobacter clocae, received IV cefepime through 03/18/24 then changed to IV ertapenem through 04/06/24 to complete 6 weeks, was on doxycycline through 05/2024 and was changed to Bactrim for PO suppression - 08/2024 with R knee joint effusion. Had a UTI on 08/12 and was treated with IV ertapenem at OSH. Then at [facility], placed on meropenem, transferred to [facility]. R knee I&D with + MRSA. Also with wound Cx of the lateral foot + Proteus, VRE, MRSA. Discharged on vancomycin and meropenem for 6 weeks, then changed to PO Bactrim suppression. - 10/2024 hospitalized for human metapneumovirus. At that time, completed his 6- week course of vancomycin and meropenem, then changed to TMP/SMX 1 DS tab PO BID for long-term suppression given MRSA R knee PJI with retained hardware. - 12/2024 the patient saw ortho for R knee aspiration, at the time with 45,255 WBCs (92.7% PMNs), Cx NG He was recently admitted to [place] [address] 5106/08/2024 and was found to have recurrent MRSA right knee PJI. He was discharged prior to finalization of cultures. He was discharged to complete 6 weeks of daptomycin and ertapenem. He was on ertapenem as wound cultures grew Enterobacter cloacae (R Bactrim and ESBL Proteus mirabilis. He was discharged to follow-up with orthopedics. He was seen by orthopedics and surgical intervention was not deemed necessary. He presents for malfunctioning PICC line. Recommendations: Patient is not interested in surgical intervention at this time. He wants to continue antibiotic treatment for recurrence of MRSA PJI followed by suppression. He understands that infection can recur. I discussed with him the option of adding rifampin for synergy however after review of his medications this is contraindicated. Rifampin would have several drug interactions with his maintenance, It is contraindicated in combination with rivaroxaban and has major interactions with pantoprazole and amiodarone as it is a strong inducer of [id number] and CYP34a. -Discontinued linezolid and meropenem -Restarted daptomycin 8 mg/kg and ertapenem 1 g IV every 24 hours to complete treatment as scheduled on 05/15/2025. Although he only grew MRSA in synovial fl uid, I will continue ertapenem as he would need continued coverage for Enterobacter suppression as Bactrim is currently held ( additionally most recent Enterobacter strain from 03/31 foot wound is Bactrim R) Consider Midline if continued Picc line issues Will reach out to his ID provider at [place] to update. Will also clarify if his OPAT is being managed by Dr Martinez at [facility] Gavi Rich MD, MPH Infectious Disease ID Connect [facility], ID Division Call [phone] with questions Consultation Information Consultation was provided via telemedicine using two-way real-time interactive telecommunication between the patient and the telemedicine provider. For the duration of the visit, the provider was performing the assessment from a different facility than the patient. This includesuse of bluetooth stethoscope forauscultationperformed by the telepresenter that the telemedicine provider can hear if described in the physical exam. Artificial Marble Worker contact information: Please call [facility] Connect Call Center . (Phone Number For Physician Use Only) After establishing a telemedicine visit, patient was: Patient was verified with two unique identifiers and Gave permission to continue telehealth session Time Spent with Patient: Initial => 75 min History of Present Illness Reason for Consultation: Need for rifampin Requesting Physician: Sadiq Membreno Attending Physician: Sadiq Membreno History of Present Illness This is a 79-year-old male with a past medical history of hypertension, hyperlipidemia, atrial fibrillation on Xarelto, CAD, HFrEF, rheumatoid arthritis off Rinvoq since 04/13/2024, bilateral total hip arthroplasty, left TKA, right TKA (10/2022 complicated but MRSA PJI/bacteremia (06/2023) status post I&D and poly exchange and vancomycin for 6 weeks followed by Doxy suppression, then developed Enterobacter cloacae right knee PJI (02/2024) status post I&D and cefepime---> ertapenem for 6 weeks followed by doxycycline---> Bactrim suppression, status post admission to [facility] from /03/02 for recurrent right knee MRSA PJI complicated by MRSA bacteremia status post I&D, he was treated with vancomycin and meropenem for 6 weeks and then switched to p.o. Bactrim suppression. He was admitted to [facility] from /06/2024 for fevers and rigors. Exam demonstrated right knee effusion with warmth and tenderness. He was empirically started on daptomycin and ertapenem given history. His right knee pain improved on therapy. He underwent aspiration of the right knee with 33,315 WBC (85.3% PNM's), 25K RBCs. Broad range PCR also sent. Patient was discharge prior to cx results 2/2 family issues. He was discharged on IV daptomycin and ertapenem for presumed recurrence of right knee PJI for 6 weeks to complete on 05/12/25 Plan was for him to follow-up outpatient with orthopedics for possible intervention. He was seen outpatient and No interventions per orthopedics. Plan was for patient to complete 6 weeks of IV antibiotics on 05/15. Cultures finalized as MRSA. Bacterial PCR detected staph aureus. He denies any knee pain, fever, chills, sweats, nausea, vomiting. He presents to the ED on 05/01 for possible malfunction of his PICC line. His son is at bedside and provides additional history. On admission patient is afebrile hemodynamically stable. Labs: WBC 7.27, platelets 196, hemoglobin 9.3, BUN 25, creatinine 1.09. Blood cultures were obtained and are NGTD. Chest x-ray shows unchanged right lung nodule. CT head showed no intracranial pathology. Right upper extremity Doppler showed that the PICC line terminates in the proximal basilic vein. No deep vein thrombosis. He reports tolerating daptomycin and ertapenem. On admission he was switched to meropenem and linezolid. ID consulted for need for rifampin. Allergies Allergy/AdvReac Type Severity Reaction Status Date / Time cat dander Allergy Severe CAT Verified 05/01/25 18:18 HAIR---Swelling of Lip/Tongue/Throat Home Medications Medication Instructions Recorded Confirmed Type aspirin 81 mg tablet,delayed 81 mg PO QAM 08/07/22 05/01/25 History release (Adult Low Dose Aspirin) rivaroxaban 20 mg tablet (Xarelto) 20 mg PO DAILY 11/19/23 05/01/25 History sennosides 8.6 mg tablet 8.6 mg PO BID 12/15/23 05/01/25 History mirtazapine 30 mg tablet 15 mg PO UD 01/21/24 05/01/25 History nitroglycerin 0.4 mg sublingual 0.4 mg sublingual DIRECTED PRN 01/21/24 05/01/25 History tablet chest pin tamsulosin 0.4 mg capsule 0.4 mg PO HS 07/22/24 05/01/25 History folic acid 1 mg tablet 1 mg PO DAILY 08/12/24 05/01/25 History omeprazole 20 mg capsule,delayed 20 mg PO DAILY 08/12/24 05/01/25 History release thiamine HCl (vitamin B1) 100 mg 100 mg PO DAILY 08/12/24 05/01/25 History tablet netarsudil 0.02 %-latanoprost 1 drp ophthalmic (eye) HS 11/14/24 05/01/25 History 0.005 % eye drops (Rocklatan) duloxetine 30 mg capsule,delayed 30 mg PO DAILY 11/25/24 05/01/25 History release sprinkle amiodarone 200 mg tablet 200 mg PO QAM #90 tabs 12/02/24 05/01/25 Rx levetiracetam 500 mg tablet 500 mg PO BID 90 days #180 tabs 01/03/25 05/01/25 Rx (Keppra) budesonide 0.5 mg/2 mL suspension 0.5 mg NEB BIDR 01/16/25 05/01/25 History for nebulization bumetanide 0.5 mg tablet 0.5 mg PO DAILY 01/16/25 05/01/25 History cholecalciferol (vitamin D3) 10 20 mcg PO DAILY 01/16/25 05/01/25 History mcg (400 unit) tablet (Vitamin D3) ferrous sulfate 325 mg (65 mg 325 mg PO .Q OTHER DAY 01/16/25 05/01/25 History iron) tablet food supplemt, lactose-reduced 1 ea PO DAILY 01/16/25 05/01/25 History (Ensure oral liquid) gabapentin 600 mg tablet 600 mg PO TID 01/16/25 05/01/25 History pravastatin 40 mg tablet 40 mg PO HS 01/16/25 05/01/25 History sodium chloride 0.65 % nasal spray 1 spray intranasal DAILY PRN Dry 01/16/25 05/01/25 History aerosol nose vitamin B complex 1 tab PO DAILY 01/16/25 05/01/25 History vitamin E 268 mg (400 unit) capsule 2 cap PO DAILY 01/16/25 05/01/25 History metoprolol succinate 25 mg 12.5 mg (1/2 x 25 mg) PO DAILY #15 01/19/25 05/01/25 Rx tablet,extended release 24 hr tabs sulfamethoxazole 800 1 tab PO BID #60 tabs 01/19/25 05/01/25 Rx mg-trimethoprim 160 mg tablet (Bactrim DS) nebulizers #1 ea 01/24/25 04/28/25 Rx duloxetine 60 mg capsule,delayed 60 mg PO DAILY 02/01/25 05/01/25 History release Lactobacillus acidophilus 1 tab PO DAILY 02/10/25 05/01/25 History cyanocobalamin (vitamin B-12) 500 500 mcg PO DAILY 02/10/25 05/01/25 History mcg lozenges (Vitamin B-12) omega-3 fatty acids 1,000 mg 1,000 mg PO QAM 02/10/25 05/01/25 History capsule acetaminophen 325 mg tablet 325 mg PO TID PRN Pain 04/04/25 05/01/25 History (Tylenol) bimatoprost 0.01 % eye drops 1 drp ophthalmic (eye) PM 04/04/25 05/01/25 History buprenorphine 5 mcg/hour weekly 1 patch transdermal WK 04/04/25 05/01/25 History transdermal patch carbamide peroxide 6.5 % ear drops 5 drp otic (ear) Q12H 04/04/25 05/01/25 History diclofenac sodium 1 % topical gel 2 g topical BID PRN hand pain 04/04/25 05/01/25 History formoterol fumarate 20 mcg/2 mL 20 mcg NEB BIDR 04/04/25 05/01/25 History solution for nebulization (Perforomist) ipratropium 0.5 mg-albuterol 3 mg 3 ml NEB Q6R PRN shortness of 04/04/25 05/01/25 History (2.5 mg base)/3 mL nebulization breath or wheezing soln lanolin alcohols-mineral 1 applic topical DAILY PRN Dry Skin 04/04/25 05/01/25 History oil-w.petrolatum-ceresin topical cream (Eucerin topical cream) lidocaine 5 % topical patch 1 - 2 patch topical DAILY PRN Pain 04/04/25 05/01/25 History menthol 0.44 %-zinc oxide 20.6 % 1 applic topical BID 04/04/25 05/01/25 History topical ointment (Calmoseptine) multivitamin with minerals 1 cap PO DAILY 04/04/25 05/01/25 History nutritional supplements 1 ea PO BID 04/04/25 05/01/25 History oxycodone 5 mg tablet 5 mg PO TID PRN Pain 04/04/25 05/01/25 History trazodone 50 mg tablet 0 mg PO UD 04/04/25 05/01/25 History daptomycin 500 mg intravenous 750 mg IV DAILY 05/01/25 05/01/25 History solution ertapenem 1 gram solution for 1 g IV DAILY 05/01/25 05/01/25 History injection glucosamine sulfate 500 mg tablet 500 mg PO DAILY 05/01/25 05/01/25 History melatonin 3 mg tablet 3 mg PO HS 05/01/25 05/01/25 History Patient History Medical History Right rib fracture IPMN (intraductal papillary mucinous neoplasm) Cardiomyopathy Heart failure with improved ejection fraction (HFimpEF) Foot ulcer, right Idiopathic peripheral neuropathy Spinal stenosis, lumbar region with neurogenic claudication Depression History of MRSA infection Complicated urinary tract infection Infection of prosthetic right knee joint Obstructive sleep apnea Obesity hypoventilation syndrome Atelectasis Elevated brain natriuretic peptide (BNP) level Bronchitis due to human metapneumovirus (hMPV) Infection due to human metapneumovirus (hMPV) Cough History of infection of total joint prosthesis of knee Weakness MRSA bacteremia Hypoxia Hypotension Hyperkalemia Lethargy Ischemic ulcer of left foot Ischemic ulcer of right foot Bilateral lower leg cellulitis PVD (peripheral vascular disease) Atrial flutter with rapid ventricular response Open wound of left lower extremity Sepsis Infected hardware in right leg Chronic infection of right knee Venous ulcer of right leg History of immunosuppressive therapy Heart failure with preserved ejection fraction GERD (gastroesophageal reflux disease) Septicemia due to Streptococcus pneumoniae Respiratory failure with hypoxia Hypomagnesemia Pneumonia Benign essential hypertension Lumbar stenosis Hx of staphylococcal infection 03/2022, w/"bacterial infection" at the same, in the rt. knee, occurrred during atrial fibrillation episode. "when he woke up, he couldn't walk." Atrial fibrillation episode occurred in 03/2022, taken to [facility] in [place], admitted to ICU for 1-2 weeks (was not intubated, but wasn't "awake either"), then to cardiac unit, then to rehab at [facility] in [place]; f/u dr. guerra in [place]>will be starting to see a administrative asst at [facility] 2nd week of 08/2022 Myocardial Infarction "a silent one, 2019" Sleep apnea no device Surgical History Status post revision of total replacement of right knee Hx of Achilles tendon repair rt. Hx of knee surgery rt. patellar tendon repair Hx of rotator cuff surgery bilateral Hx of total knee replacement lt. Hx of total hip arthroplasty rt. History of colostomy reversal History of bowel resection for diverticulitis; w/colostomy placement for 3-4 months Hx of hernia repair near former colostomy site History of esophagogastroduodenoscopy (EGD) Hx of colonoscopy Last Colonoscopy 08/14/22, repeat 3 years in 2025 Hx of bilateral cataract extraction History of heart artery stent ~3 years ago, x2 stents, done in [place]; f/u dr guerra, [place]>will be seeing new cardio at [place] 2nd week of August 2022. History of cardiac cath ~3 years ago, SOB and "felt like throat was constricting", had "silent heart attack", x2 stents, done in [place] Family History Grandmother (Maternal) Diabetes Daughter Diabetes Father Suicide Hypertension Denies family history of Ovarian cancer Prostate cancer Myocardial infarction Breast cancer Lung cancer Colorectal cancer Stroke Social History Smoking Status: Never smoker Second Hand Exposure: No; Do You Dip or Chew Tobacco: No; Hx Alcohol Use: Yes Alcohol type: wine Alcohol Intake Frequency: 4 or More x per/Week Hx Substance Use: No Preferred Language: Khmer Communication Ability: Effective Visual Impairment: Limited Hearing Ability: Normal Road Equipment Operator Required: No Beliefs That Will Affect Care: None marital status: Single Current Living Situation: Personal Care Facility Current Living Situation Comment: Independant living at [facility] current occupational status: retired How many Children do You have: 2 Feels Safe at Home: Yes Childhood Exposure to Second-Hand Smoke: Yes Diet: regular caffeine: Yes Dental Care, Regularly: Yes Physical Activity Frequency: Does not Exercise Seatbelt Use: always Sunscreen Use: Yes Assistive Devices: BiPap, Glasses and Wheelchair Review of System A 10 point review of systems obtained. Pertinent positives as per HPI. Physical Exam Physical Exam: Gen- NAD Neck _ supple Lung- Non labored breathing. On RA Abdomen- soft, NT, ND Extremities- Right knee with adherent dressing. Mild edema. Not tender, warm or eryhematous. R PICC site clear. Neuro- AAO times 3 Psych- Cooperative, Normal mood Results & Data Vital Signs (Past 12 Hours) Vital Signs Temp Pulse Pulse Resp BP Pulse Ox O2 Del Method 05/02/25 11:08 36.9 C 79 20 118/72 92 Room Air 05/02/25 10:07 Room Air 05/02/25 08:07 92 Room Air 05/02/25 07:40 36.6 C 78 18 111/69 92 Room Air 05/02/25 07:31 71 05/02/25 04:07 36.8 C 76 20 98/62 L 93 Room Air 05/02/25 03:57 70 13 95 O2 Flow Rate 05/02/25 11:08 05/02/25 10:07 05/02/25 08:07 05/02/25 07:40 05/02/25 07:31 05/02/25 04:07 05/02/25 03:57 3 Laboratory Results Laboratory Results - last 48 hr 05/01/25 05/01/25 05/01/25 16:55 18:20 18:44 WBC 7.27 RBC 3.34 L Hgb 9.3 L Hct 29.7 L MCV 88.9 MCH 27.8 MCHC 31.3 L RDW Std Deviation 51.8 H RDW Coeff of Sammie 15.9 H Plt Count 196 MPV 10.1 Immature Gran % (Auto) 0.1 Neut % (Auto) 66.4 Lymph % (Auto) 11.8 [place] % (Auto) 12.5 Eos % (Auto) 8.5 Baso % (Auto) 0.7 Neut # (Auto) 4.82 Lymph # (Auto) 0.86 L Roseau # (Auto) 0.91 H Eos # (Auto) 0.62 H Baso # (Auto) 0.05 Immature Gran # (Auto) 0.01 VBG pH 7.39 VBG pCO2 50 VBG pO2 36 VBG HCO3 30 VBG O2 Saturation < 60.0 VBG Base Excess 4.2 Sodium 138 Potassium 3.8 Chloride 101 Carbon Dioxide 30 Anion Gap 7 BUN 25 H Creatinine 1.09 Est Cr Clr Drug Dosing Not Reportable eGFR 68.18 BUN/Creatinine Ratio 22.9 H Glucose 113 H Lactate 1.4 Calcium 8.5 L Magnesium 1.7 Total Bilirubin 0.5 AST 52 H ALT 28 Alkaline Phosphatase 91 Ammonia 32.0 Troponin I High Sens 28.0 H 31.9 H B-Natriuretic Peptide Total Protein 6.5 Albumin 3.3 L Globulin 3.2 Albumin/Globulin Ratio 1.0 TSH 2.946 Urine Color Dark Yellow Urine Appearance Clear Urine pH 5.0 Ur Specific Coolidge 1.016 Urine Protein Negative Urine Glucose (UA) Negative Urine Ketones Negative Urine Blood Negative Urine Nitrite Negative Urine Bilirubin Negative Urine Urobilinogen Negative Ur Leukocyte Esterase 1+ H Urine WBC (Auto) 0-5 Urine RBC (Auto) 0-2 U Hyaline Cast (Auto) 3-5 H U Epithel Cells (Auto) 0-2 Urine Bacteria (Auto) None Seen Urine Comment 05/01/25 05/02/25 22:39 06:37 WBC 5.58 RBC 3.33 L Hgb 9.1 L Hct 29.7 L MCV 89.2 MCH 27.3 MCHC 30.6 L RDW Std Deviation 51.8 H RDW Coeff of Sammie 15.9 H Plt Count 178 MPV 9.3 L Immature Gran % (Auto) Neut % (Auto) Lymph % (Auto) Roseau % (Auto) Eos % (Auto) Baso % (Auto) Neut # (Auto) Lymph # (Auto) Rose[place] # (Auto) Eos # (Auto) Baso # (Auto) Immature Gran # (Auto) VBG pH VBG pCO2 VBG pO2 VBG HCO3 VBG O2 Saturation VBG Base Excess Sodium Potassium Chloride Carbon Dioxide Anion Gap BUN Creatinine Est Cr Clr Drug Dosing eGFR BUN/Creatinine Ratio Glucose Lactate Calcium Magnesium Total Bilirubin AST ALT Alkaline Phosphatase Ammonia Troponin I High Sens 32.4 H B-Natriuretic Peptide 240 H Total Protein Albumin Globulin Albumin/Globulin Ratio TSH Urine Color Urine Appearance Urine pH Ur Specific [place] Urine Protein Urine Glucose (UA) Urine Ketones Urine Blood Urine Nitrite Urine Bilirubin Urine Urobilinogen Ur Leukocyte Esterase Urine WBC (Auto) Urine RBC (Auto) U Hyaline Cast (Auto) U Epithel Cells (Auto) Urine Bacteria (Auto) Urine Comment Diagnostic Findings Chest X-Ray 05/01/25 16:10 Clinical History: Weakness Technique: A frontal view of the chest was obtained Comparison is made of the prior examination dated 04/04/2025 Findings: There are no confluent pulmonary infiltrates. The heart size is at the upper limit of normal. No pleural effusion or pneumothorax is seen. There is an unchanged right lower lung nodule, likely a benign calcified granuloma No fracture is noted. There is a right arm PICC line with its tip in the SVC Impression: Unchanged right lung nodule, likely a benign calcified granuloma Electronically signed by Lucas Ibanez 05-01-2025 6:[address] 05/01/25 19:54 Exam(s): CT HEAD Without Contrast EXAM: CT Head Without Intravenous Contrast CLINICAL HISTORY: Reason for exam: Encephalopathic. TECHNIQUE: Axial computed tomography images of the head/brain without intravenous contrast. CTDI is 51.41 mGy and DLP is 875.56 mGy-cm. Automated exposure control was utilized for the study. A dose lowering technique was utilized adhering to the principles of ALARA. COMPARISON: Prior head CT from December 13, 2024. FINDINGS: Brain: Unremarkable. No hemorrhage. No significant white matter disease. No edema. Ventricles: Moderate ventriculomegaly. Bones/joints: Unremarkable. No acute fracture. Soft tissues: Unremarkable. Sinuses: Unremarkable as visualized. No acute sinusitis. Mastoid air cells: Unremarkable as visualized. No mastoid effusion. IMPRESSION: No evidence of acute intracranial pathology. Electronically signed by: Trish Alves MD 05/01/25 23:16 PM Venous Doppler Study 05/01/25 20:08 Exam(s): US VENOUS RIGHT UPPER EXTREMITY EXAM: US Duplex Right Upper Extremity Veins CLINICAL HISTORY: Reason for exam: Edema, clot. OTHER: Other Notes: RUE swelling, PICC line in for antibiotics. No thrombus detected within RUE. PICC line noted in right subclavian, axillary, and prox basilic vein. Note slightly limited due to PICC line and sterile dressing over mid upper right arm (was able to visualize vessels over clear portion of dressing). TECHNIQUE: Real-time duplex ultrasound scan of the right upper extremity veins integrating B-mode two-dimensional vascular structure, Doppler spectral analysis, color flow Doppler imaging and compression. COMPARISON: No relevant prior studies available. FINDINGS: Deep veins: Unremarkable. No DVT in the internal jugular, subclavian, axillary, or brachial veins. The veins demonstrate normal color flow, are normally compressible, with normal phasic flow and/or augmentation response. Superficial veins: Unremarkable. No thrombus in the visualized basilic and cephalic veins. Soft tissues: No acute findings. Tubes, lines and devices: There is a PICC line terminating in the proximal basilic vein. IMPRESSION: 1. PICC line terminates in the proximal basilic vein. 2. No deep venous thrombosis in the right upper extremity. Electronically signed by: Austin Parekh MD 05/01/25 23:39 PM Medications Administered Home Medications Medication Instructions Recorded Confirmed Last Taken aspirin 81 mg tablet,delayed 81 mg PO QAM 08/07/22 05/01/25 05/01/25 release (Adult Low Dose Aspirin) rivaroxaban 20 mg tablet (Xarelto) 20 mg PO DAILY 11/19/23 05/01/25 05/01/25 sennosides 8.6 mg tablet 8.6 mg PO BID 12/15/23 05/01/25 05/01/25 08:00 mirtazapine 30 mg tablet 15 mg PO UD 01/21/24 05/01/25 01/31/25 nitroglycerin 0.4 mg sublingual 0.4 mg sublingual DIRECTED PRN 01/21/24 05/01/25 Unknown tablet chest pin tamsulosin 0.4 mg capsule 0.4 mg PO HS 07/22/24 05/01/25 04/30/25 folic acid 1 mg tablet 1 mg PO DAILY 08/12/24 05/01/25 05/01/25 omeprazole 20 mg capsule,delayed 20 mg PO DAILY 08/12/24 05/01/25 05/01/25 release thiamine HCl (vitamin B1) 100 mg 100 mg PO DAILY 08/12/24 05/01/25 05/01/25 tablet netarsudil 0.02 %-latanoprost 1 drp ophthalmic (eye) HS 11/14/24 05/01/25 04/30/25 0.005 % eye drops (Rocklatan) duloxetine 30 mg capsule,delayed 30 mg PO DAILY 11/25/24 05/01/25 05/01/25 release sprinkle amiodarone 200 mg tablet 200 mg PO QA #90 tabs 12/02/24 05/01/25 05/01/25 levetiracetam 500 mg tablet 500 mg PO BID 90 days #180 tabs 01/03/25 05/01/25 05/01/25 08:00 (Keppra) budesonide 0.5 mg/2 mL suspension 0.5 mg NEB BIDR 01/16/25 05/01/25 Unknown for nebulization bumetanide 0.5 mg tablet 0.5 mg PO DAILY 01/16/25 05/01/25 05/01/25 cholecalciferol (vitamin D3) 10 20 mcg PO DAILY 01/16/25 05/01/25 05/01/25 mcg (400 unit) tablet (Vitamin D3) ferrous sulfate 325 mg (65 mg 325 mg PO .Q OTHER DAY 01/16/25 05/01/25 05/01/25 iron) tablet food supplemt, lactose-reduced 1 ea PO DAILY 01/16/25 05/01/25 05/01/25 (Ensure oral liquid) gabapentin 600 mg tablet 600 mg PO TID 01/16/25 05/01/25 05/01/25 15:00 pravastatin 40 mg tablet 40 mg PO HS 01/16/25 05/01/25 04/30/25 sodium chloride 0.65 % nasal spray 1 spray intranasal DAILY PRN Dry 01/16/25 05/01/25 Unknown aerosol nose vitamin B complex 1 tab PO DAILY 01/16/25 05/01/25 05/01/25 vitamin E 268 mg (400 unit) capsule 2 cap PO DAILY 01/16/25 05/01/25 05/01/25 metoprolol succinate 25 mg 12.5 mg (1/2 x 25 mg) PO DAILY #15 01/19/25 05/01/25 05/01/25 tablet,extended release 24 hr tabs sulfamethoxazole 800 1 tab PO BID #60 tabs 01/19/25 05/01/25 02/01/25 08:00 mg-trimethoprim 160 mg tablet (Bactrim DS) nebulizers #1 ea 01/24/25 04/28/25 Unknown duloxetine 60 mg capsule,delayed 60 mg PO DAILY 02/01/25 05/01/25 05/01/25 release Lactobacillus acidophilus 1 tab PO DAILY 02/10/25 05/01/25 05/01/25 cyanocobalamin (vitamin B-12) 500 500 mcg PO DAILY 02/10/25 05/01/25 05/01/25 mcg lozenges (Vitamin B-12) omega-3 fatty acids 1,000 mg 1,000 mg PO QAM 02/10/25 05/01/25 05/01/25 capsule acetaminophen 325 mg tablet 325 mg PO TID PRN Pain 04/04/25 05/01/25 Unknown (Tylenol) bimatoprost 0.01 % eye drops 1 drp ophthalmic (eye) PM 04/04/25 05/01/25 04/30/25 buprenorphine 5 mcg/hour weekly 1 patch transdermal WK 04/04/25 05/01/25 Unknown transdermal patch carbamide peroxide 6.5 % ear drops 5 drp otic (ear) Q12H 04/04/25 05/01/25 05/01/25 08:00 diclofenac sodium 1 % topical gel 2 g topical BID PRN hand pain 04/04/25 05/01/25 Unknown formoterol fumarate 20 mcg/2 mL 20 mcg NEB BIDR 04/04/25 05/01/25 Unknown solution for nebulization (Perforomist) ipratropium 0.5 mg-albuterol 3 mg 3 ml NEB Q6R PRN shortness of 04/04/25 05/01/25 Unknown (2.5 mg base)/3 mL nebulization breath or wheezing soln lanolin alcohols-mineral 1 applic topical DAILY PRN Dry Skin 04/04/25 05/01/25 Unknown oil-w.petrolatum-ceresin topical cream (Eucerin topical cream) lidocaine 5 % topical patch 1 - 2 patch topical DAILY PRN Pain 04/04/25 05/01/25 Unknown menthol 0.44 %-zinc oxide 20.6 % 1 applic topical BID 04/04/25 05/01/25 05/01/25 08:00 topical ointment (Calmoseptine) multivitamin with minerals 1 cap PO DAILY 04/04/25 05/01/25 05/01/25 nutritional supplements 1 ea PO BID 04/04/25 05/01/25 05/01/25 oxycodone 5 mg tablet 5 mg PO TID PRN Pain 04/04/25 05/01/25 Unknown trazodone 50 mg tablet 0 mg PO UD 04/04/25 05/01/25 Unknown daptomycin 500 mg intravenous 750 mg IV DAILY 05/01/25 05/01/25 04/30/25 solution ertapenem 1 gram solution for 1 g IV DAILY 05/01/25 05/01/25 04/30/25 injection glucosamine sulfate 500 mg tablet 500 mg PO DAILY 05/01/25 05/01/25 05/01/25 melatonin 3 mg tablet 3 mg PO HS 05/01/25 05/01/25 04/30/25 Active Medications Generic Name Dose Route Start Last Admin Trade Name Kaila PRN Reason Stop Dose Admin Amiodarone HCl 200 mg 05/02/25 09:00 05/02/25 08:52 Amiodarone 200 Mg Tab PO 06/01/25 08:59 200 mg QAM ELDER Administration Aspirin 81 mg 05/02/25 09:00 05/02/25 08:53 Aspirin 81 Mg Ectab PO 06/01/25 08:59 81 mg QAM ELDER Administration Bumetanide 0.5 mg 05/02/25 09:00 05/02/25 09:05 Bumetanide 1 Mg Tab PO 06/01/25 08:59 0.5 mg DAILY ELDER Administration Carbamide Peroxide 5 drops 05/01/25 23:00 05/02/25 10:54 Carbamide Peroxide 6.5% 15 Ml Btl OT 05/05/25 22:59 5 drops Q12H ELDER Administration Cyanocobalamin 500 mcg 05/02/25 09:00 05/02/25 08:52 Cyanocobalamin (B-12) 500 Mcg Tablet PO 06/01/25 08:59 500 mcg DAILY ELDER Administration Folic Acid 1 mg 05/02/25 09:00 05/02/25 08:53 Folic Acid 1 Mg Tab PO 06/01/25 08:59 1 mg DAILY ELDER Administration Glucosamine Sulfate 500 mg 05/02/25 09:00 05/02/25 08:52 Glucosamine Sulfate 500 Mg Cap PO 06/01/25 08:59 500 mg DAILY ELDER Administration Linezolid 600 mg in 300 mls @ 300 mls/hr 05/01/25 23:30 05/02/25 12:20 Zyvox IV 05/08/25 23:29 Infused Q12H ELDER Infusion Meropenem 500 mg/ Syringe 10 mls @ 2 mls/min 05/02/25 06:00 05/02/25 12:56 IV 05/09/25 05:59 2 mls/min Q6H ELDER Administration Protocol Levetiracetam 500 mg 05/02/25 09:00 05/02/25 08:52 Levetiracetam 500 Mg Tab PO 06/01/25 08:59 500 mg BID ELDER Administration Metoprolol Succinate 12.5 mg 05/02/25 09:00 05/02/25 08:52 Metoprolol Succ 25mg Ext Rel Tab PO 06/01/25 08:59 12.5 mg DAILY ELDER Administration Miscellaneous 1 each 05/02/25 00:00 05/02/25 08:51 Nidia--Order Awaiting Action N/A 06/01/25 00:00 Not Given QS ELDER Miscellaneous 1 each 05/02/25 00:00 05/02/25 08:51 Check Buprenorphine Patch N/A 06/01/25 00:00 1 each QS ELDER Administration Pantoprazole Sodium 40 mg 05/02/25 09:00 05/02/25 08:53 Pantoprazole 40 Mg Tab PO 06/01/25 08:59 40 mg DAILY ELDER Administration Polymyxin/Trimethoprim Sulfate 1 drops 05/01/25 22:08 05/02/25 12:57 Trimethoprim/Polymyxin B OP 05/31/25 22:07 1 drops Q3H ELDER Administration Sennosides 8.6 mg 05/02/25 09:00 05/02/25 08:51 Senna 8.6 Mg Tab PO 06/01/25 08:59 8.6 mg BID ELDER Administration Thiamine HCl 100 mg 05/02/25 09:00 05/02/25 08:53 Thiamine Hcl 100 Mg Tab PO 06/01/25 08:59 100 mg DAILY ELDER Administration
[2025-05-02] MEDS: RIVAROXABAN 20 MG TAB PO SCH (15:22)
[2025-05-02] MEDS: ERTAPENEM 1000MG 1,000 MG/10 ML SYR IV SCH (17:38)
[2025-05-02] MEDS: DAPTOmycin 700 MG in SYRINGE 0 ML IV SCH (17:38)
[2025-05-02] MEDS: ACETAMINOPHEN 325 MG TAB PO PRN (20:15)
[2025-05-02] MEDS: BIMATOPROST 0.01% OP SOLN 2.5 ML BTL OP SCH (20:20)
[2025-05-02] MEDS: TAMSULOSIN HCL 0.4 MG CAP PO SCH (20:21)
[2025-05-02] MEDS ORDERED: PRAVASTATIN SOD 40 MG TAB PO SCH (21:00)
[2025-05-02] MEDS ORDERED: REMOVE LIDODERM PATCH SCH (21:00)
--- NOTE | 2025-05-02 22:22 | Hospitalist Progress Note ---
Date of Service May 02, 2025 Assessment & Plan (1) Lethargy: (2) Edema of right upper extremity: (3) Multiple open wounds of lower extremity: (4) Bilateral conjunctivitis: (5) Elevated troponin: Plan 79-year-old male PMHx HFrEF, PAD, A-flutter, peripheral neuropathy, RA, pressure ulcers of bilateral feet, CAD, cardiomyopathy, IPMN, depression, LEONARD, OHS, and PVD presenting for malfunctioning PICC line per home health nurse. Evaluation without clear infection, stable VBG and grossly unremarkable electrolytes with exception of calcium at 8.5. Lactate is normal. Troponin slightly elevated at 28, pending the repeat. Admission for PICC line management. #Lethargy Ongoing ~ 1 week, associated weakness as noted per son. Utilities CPAP at night, difficult to have mask around face d/t facial hair. No infectious symptoms per son or patient. No focal deficits, dysarthria, facial droop. Pt easily arousable and aware of location/year/self. AG WNL, ammonia WNL, TSH WNL. No gross electrolyte abnormalities otherwise. No new murmur ascultated. Has been receiving abx via PICC line as prescribed with exception of the day of arrival d/t PICC line malfunction. Unclear exact etiology of lethargy, pending remaining workup. - CBC without leukocytosis/leukopenia, H/H near baseline (9.3/29.1); VBGs WNL; lactate 1.4; ammonia 32; TSH 2.946; trop mildly elevated (28.0 -> 31.9) - CBC am, trend trop - Blood cx pending - UA negative for infection - CXR unchanged R lung nodule - CT head no acute findings - RUE Doppler w/o DVT - PAMELA 09/2024 EF 60-65% -- consider repeating if negative workup - Hold potential medications that can cause alterations in mentation - hold gabapentin + melatonin at time of admission, add back once appropriate - Ertapenem + daptomycin-- will adjust to meropenem + linezolid -- HOLD medications impacting serotonin while on linezolid (mirtazapine, duloxetine) - PT/OT ordered - appreciate input + recs - Consider ID consult: appreciate input. This appears to have resolved #RUE edema/Malfunctioning PICC line (resolved) History of severe sepsis, maintained on ertapenem and daptomycin for total of 6 weeks duration, provided via PICC line. PICC line malfunction day of arrival for home health nurse, found to be kinked and now fixed/functioning as appropriate. RUE with edema, erythema, and warm to touch. Was concerned for VTE, however is on Xarelto (last dose 05/01). - CXR did reveal R arm PICC line w/ tip in SVC - Doppler RUE PICC line terminating proximal basilic vein, no DVT - obtained consent from patient, will switch PICC line to midline/ #Multiple open wounds LE/Polymicrobial immune complex infectious disease history Follows with wound care, most recent visit 04/14/2025. 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 Prior admission to [facility] from 08/29/2024-09/14/24 for recurrent R knee MRSA PJI c/b MRSA bacteremia s/p I&D. - CBC stable, lactate WNL - Blood cx pending -- extensive bacterial history -- MRSA, Pseudomonas/ESBL Proteus/Enterobacter - Currently on dapto + ertapenem -- adjust to meropenem + linezolid at time of admission -- adjust as medically appropriate - Wound care -- Per wound visit note (04/14/2025) -- Dressed with Silvercel daily bilaterally - Consider ID consult -- +/- need to add rifampin at this time, previously a recommendation as a next step as necessary - Pt was to follow with [facility] ortho - consider ortho consult #Bilateral conjunctivitis Bilat. eye crusting, ~ 4 days total. - Polytrim drops - 1 drop q3h - Cont home eye drops - Contact precautions #Elevated troponin No CP, SOB, or palpitations - Trop 28.0, 31.9 on repeat - trend - EKG sinus rhythm with PVCs and nonspecific IVCB @ 75 bpm - Likely 2/2 demand #Anemia- H/o such, near baseline; H/H at admission 9.3/29.7; Vitamin B12, ferrous sulfate, folic acid - continue, trend H/H as appropriate #HFrEF- BNP 240; Received IV bumetanide in ED; Bumetanide - continue oral formulation #A-fib/history of A-flutter- Amiodarone, metoprolol, Xarelto - continue #RA- Glucosamine - continue #HLD- Pravastatin - OK to continue now that dapto d/c, restart 05/02 #Myoclonic jerking - Keppra - continue #Idiopathic neuropathy- Gabapentin - hold at time of admission #LEONARD- BiPAP HS -- continue #Psych- Duloxetine, mirtazapine, ? trazodone - Hold all while on linezolid #GERD- Omeprazole - continue #CAD- ASA - continue #BPH- Tamsulosin - continue #Pain- Buprenorphine patch, ? oxycodone; PDMP independently reviewed at time of admission, appears oxycodone last obtained 02/2025 - continue per normal schedule/dosing, held oxy night of admission ? impacting mentation Please call son, Jaiden, @ [phone] with updates. Dispo: Admit, PCU VTE Prophylaxis: On Xarelto - continue Admission and Anticipated Discharge Date Admission Date: May 01, 2025 Subjective 79 yo male reports no new symptoms. Patient reports being more awake, Had discussion with son on the phone and thought he may need PT if that is recommended by our therapists. But he said this would be up to Mr. Palacio. Physical Exam Constitutional: WD/WN, vitals as above Neck: trachea midline, no thyromegaly Respiratory: normal respiratory effort, lungs clear to auscultation Cardiovascular: RRR, no murmur, no edema Psychiatric: A+Ox3, euthymic affect Results & Data Results & Data Vital Signs (Past 12 Hours) Vital Signs Temp Pulse Pulse Resp BP BP Pulse Ox 05/02/25 19:56 36.6 C 74 20 104/57 L 92 05/02/25 19:18 05/02/25 14:43 78 05/02/25 11:08 36.9 C 79 20 118/72 92 O2 Del Method 05/02/25 19:56 Room Air 05/02/25 19:18 Room Air, CPAP 05/02/25 14:43 05/02/25 11:08 Room Air PG Care Time/CCT Total # of Minutes Spent Total Time Spent with Patient: Total time spent is greater than 50% in coordination of care (as documented) at patient's floor/unit and/or counseling patient: Coding Level of Care Code 00842 SUB INP/OBS CARE 3/50MIN Diagnoses Lethargy R53.83 Edema of right upper extremity R60.0 Multiple opens wound of lower extremity, unspecified laterality, subsequent encounter S81.809D Encounter type: subsequent encounter Laterality: unspecified laterality Bilateral conjunctivitis H10.9 Elevated troponin R79.89 Time Spent (min) 50 (3) Multiple open wounds of lower extremity Encounter type: subsequent encounter Laterality: unspecified laterality Qualified Code(s): S81.809D - Unspecified open wound, unspecified lower leg, subsequent encounter
[2025-05-02] MEDS: NYSTATIN POWDER 15GM BTL EXT PRN (23:32)
[2025-05-02] MEDS: KETOROLAC TROMETHAMINE 15 MG/ML VIAL IV ONE (23:32)
[2025-05-03] MEDS: ACETAMINOPHEN 500 MG TAB PO SCH (00:33)
[2025-05-03] MEDS: FERROUS SULFATE 325 MG TAB PO SCH (07:42)
[2025-05-03 07:46] LABS: Hematocrit (blood only) 29.0 % (42.0-52.0); Hemoglobin 8.9 g/dL (14.0-18.0); Mean Corpuscular Hemoglobin 26.9 pg (25.0-34.0); Mean Corpuscular Volume 87.6 fL (80.0-100.0); Platelet Count 199 K/uL (130-400); RDW Standard Deviation 50.7 fL (36.4-46.3); Red Blood Count 3.31 M/uL (4.70-6.10); White Blood Count 5.64 K/ul (4.8-10.8)
[2025-05-03 08:12] LABS: Anion Gap 7.0 (3-11); Blood Urea Nitrogen 27.0 mg/dl (6-23); Calcium 8.2 mg/dl (8.6-10.3); Carbon Dioxide 32.0 mmol/L (21-32); Chloride 99.0 mmol/L (98-107); Creatine Kinase 264.0 U/L (30-223); Creatinine Clr Calc Pharmacy 56.9 ml/min; Glucose 96.0 mg/dl (70-99(Fasting)); Potassium 3.8 mmol/L (3.5-5.1); Sodium 138.0 mmol/L (136-145)
--- NOTE | 2025-05-03 10:43 | Infectious Disease Progress Nt ---
Date of Service May 03, 2025 Assessment & Plan (1) Chronic infection of prosthetic knee: Plan This is a 79-year-old male with a past medical history of hypertension, hyperlipidemia, atrial fibrillation on Xarelto, CAD, HFrEF, rheumatoid arthritis off Rinvoq since 04/13/2024, bilateral total hip arthroplasty, left TKA, right TKA (10/2022 complicated but MRSA PJI/bacteremia (06/2023) status post I&D and poly exchange and vancomycin for 6 weeks followed by Doxy suppression, then developed Enterobacter cloacae right knee PJI (02/2024) status post I&D and cefepime---> ertapenem for 6 weeks followed by doxycycline---> Bactrim suppression, status post admission to [facility] from /03/02 for recurrent right knee MRSA PJI complicated by MRSA bacteremia status post I&D, he was treated with vancomycin and meropenem for 6 weeks and then switched to p.o. Bactrim suppression. He was admitted to [facility] from 5106/08/2024 for fevers and rigors. Exam demonstrated right knee effusion with warmth and tenderness. He was empirically started on daptomycin and ertapenem given history. His right knee pain improved on therapy. He underwent aspiration of the right knee with 33,315 WBC (85.3% PNM's), 25K RBCs. Broad range PCR also sent. Patient was discharge prior to cx results 2/2 family issues. He was discharged on IV daptomycin and ertapenem for presumed recurrence of right knee PJI for 6 weeks to complete on 05/12/25 Plan was for him to follow-up outpatient with orthopedics for possible intervention. He was seen outpatient and No interventions per orthopedics. Plan was for patient to complete 6 weeks of IV antibiotics on 05/15. Cultures finalized as MRSA. Bacterial PCR detected staph aureus. He denies any knee pain, fever, chills, sweats, nausea, vomiting. He presents to the ED on 05/01 for possible malfunction of his PICC line. His son is at bedside and provides additional history. On admission patient is afebrile hemodynamically stable. Labs: WBC 7.27, platelets 196, hemoglobin 9.3, BUN 25, creatinine 1.09. Blood cultures were obtained and are NGTD. Chest x-ray shows unchanged right lung nodule. CT head showed no intracranial pathology. Right upper extremity Doppler showed that the PICC line terminates in the proximal basilic vein. No deep vein thrombosis. He reports tolerating daptomycin and ertapenem. On admission he was switched to meropenem and linezolid. ID consulted for need for rifampin. Microbiology 05/01/2025 blood culture NGTD Prior microbiology 04/07/2025 right knee culture MRSA (sensitive to Bactrim, tetracycline, rifampin, ) 04/07/2025 synovial fluid broad range PCR and sequencing Staph aureus complex DNA detected 03/31/25 foot wound culture Enterobacter cloacae complex (resistant to tobramycin, Bactrim), ESBL Proteus mirabilis sensitive to ertapenem, meropenem, Zosyn, cefoxitin Antibiotics Linezolid 05/01-05/02 Meropenem 05/01-05/02 Ertapenem restarted 05/02 Dapto restarted 05/02 # Recurrent MRSA right knee PJI # History of Right knee Enterobacter PJI # Picc line malfunction, new midline placed this admission. Discussion: The patient follows with [facility] and has an extensive infection history: - 03/2022: R septic [place] knee, no Cx sent, treated with empiric vanocmycin and cefepime - 10/2022 R knee replacement, intraoperative Cx negative, was on 4-6 weeks of PO doxycycline - 11/2022 increased knee pain and large effusion, aspiration with 3700 WBCs - 12/2022: MRSA abscess s/p drain for 6 weeks, was on Bactrim and doxycycline interchangable continued on doxy until 12/2024 - 06/2023: mechanical fall, R knee pain worsened, MRSA bacteremia, PJI, treated with DAIR (reivision I&D, synovectomy irrigation, poly exchange, abx beads, at [facility] [place] 07[place] OR Cx + MRSA. Treated with 6 weeks of vancomycin then suppression with doxycycline 100 mg PO BID - 11/06/23 Enterobacter clocae bacteremia, treated with daptomycin + cefepime inpatient, discharged on Bactrim PO DS BID - 02/2024 recurrence of R knee PJI, intraoperative Cx + Enterobacter clocae, received IV cefepime through 03/18/24 then changed to IV ertapenem through 04/06/24 to complete 6 weeks, was on doxycycline through 05/2024 and was changed to Bactrim for PO suppression - 08/2024 with R knee joint effusion. Had a UTI on 08/12 and was treated with IV ertapenem at OSH. Then at [facility], placed on meropenem, transferred to [facility]. R knee I&D with + MRSA. Also with wound Cx of the lateral foot + Proteus, VRE, MRSA. Discharged on vancomycin and meropenem for 6 weeks, then changed to PO Bactrim suppression. - 10/2024 hospitalized for human metapneumovirus. At that time, completed his 6- week course of vancomycin and meropenem, then changed to TMP/SMX 1 DS tab PO BID for long-term suppression given MRSA R knee PJI with retained hardware. - 12/2024 the patient saw ortho for R knee aspiration, at the time with 45,255 WBCs (92.7% PMNs), Cx NG He was recently admitted to [place] [address] 5106/08/2024 and was found to have recurrent MRSA right knee PJI. He was discharged prior to finalization of cultures. He was discharged to complete 6 weeks of daptomycin and ertapenem. He was on ertapenem as wound cultures grew Enterobacter cloacae (R Bactrim and ESBL Proteus mirabilis. He was discharged to follow-up with orthopedics. He was seen by orthopedics and surgical intervention was not deemed necessary. He presents for malfunctioning PICC line. Recommendations: Patient is not interested in surgical intervention at this time. He wants to continue antibiotic treatment for recurrence of MRSA PJI followed by suppression. He understands that infection can recur. I discussed with him the option of adding rifampin for synergy however after review of his medications this is contraindicated. Rifampin would have several drug interactions with his maintenance meidcatications. It is contraindicated in combination with rivaroxaban and has major interactions with pantoprazole and amiodarone as it is a strong inducer of [id number] and CYP34a. Midline placed. -Continue daptomycin 8 mg/kg and ertapenem 1 g IV every 24 hours to complete treatment as scheduled on 05/15/2025. Although he only grew MRSA in synovial fluid, I will continue ertapenem as he would need continued coverage for Enterobacter suppression as Bactrim is currently held ( additionally most recent Enterobacter strain from 03/31 foot wound is Bactrim R) -Weekly CMP, CNC with diff, CPK. Restart Bactrim suppression on 05/16 as scheduled OPAT is being managed by Dr Martinez at [facility]. Dicharging physician to set up follow up. ID will sign off. Gavi Rich MD, MPH Infectious Disease [facility], [facility] Call [phone] with questions Admission and Anticipated Discharge Date Admission Date: May 01, 2025 Subjective Subsequent visit was provided via telemedicine using two-way real-time interactive telecommunication between the patient and the telemedicine provider. For the duration of the visit, the provider was performing the assessment from a different facility than the patient. This includesuse of bluetooth stetho scope forauscultationperformed by the telepresenter that the telemedicine provider can hear if described in the physical exam. Hand Painter contact information: Please call [facility] Call Center [phone]. (Phone Number For Physician Use Only) After establishing a telemedicine visit, patient was: Patient was verified with two unique identifiers and Gave permission to continue telehealth session Time Spent with Patient: Subsequent => 25 min He feels well Midline was placed. Denies fever, chills , sweats or knee pain. He confirms that he follows with Dr Martinez, Physical Exam Physical Exam: Gen- NAD Neck - supple Lung- Non labored breathing. On RA Abdomen- soft, NT, ND Extremities- Right knee abraded area. Mild edema. Not tender, warm or erythematous. R midline in place Neuro- AAO times 3 Psych- Cooperative, Normal mood Results & Data Vital Signs (Past 12 Hours) Vital Signs Temp Pulse Pulse Resp BP BP Pulse Ox 05/03/25 08:09 36.5 C 73 20 118/71 91 05/03/25 07:10 78 05/03/25 05:03 36.4 C L 76 20 134/78 92 05/03/25 00:05 37.0 C 79 20 148/96 H 93 O2 Del Method 05/03/25 08:09 Room Air 05/03/25 07:10 05/03/25 05:03 Room Air 05/03/25 00:05 Room Air Laboratory Results Short CBC 11/26/25 Range/Units 07:15 WBC 5.64 (4.8-10.8) K/ul Hgb 8.9 L (14.0-18.0) g/dL Hct 29.0 L (42.0-52.0) % Plt Count 199 (130-400) K/uL BMP 05/03/25 07:15 Sodium 138 Potassium 3.8 Chloride 99 Carbon Dioxide 32 BUN 27 H Creatinine 1.37 Glucose 96 Calcium 8.2 L Cardiac Enzymes 05/03/25 Range/Units 07:15 Total Creatine Kinase 264 H (30-223) U/L Microbiology 05/01/25 17:49 Blood Aerobic Blood Culture - Preliminary No growth in Aerobic bottle after 24 hours. 05/01/25 17:49 Blood Anaerobic Blood Culture - Preliminary No growth in Anaerobic bottle after 24 hours. 05/01/25 16:55 Blood Aerobic Blood Culture - Preliminary No growth in Aerobic bottle after 24 hours. 05/01/25 16:55 Blood Anaerobic Blood Culture - Preliminary No growth in Anaerobic bottle after 24 hours. Diagnostic Findings Chest X-Ray 05/01/25 16:10 Clinical History: Weakness Technique: A frontal view of the chest was obtained Comparison is made of the prior examination dated 04/04/2025 Findings: There are no confluent pulmonary infiltrates. The heart size is at the upper limit of normal. No pleural effusion or pneumothorax is seen. There is an unchanged right lower lung nodule, likely a benign calcified granuloma No fracture is noted. There is a right arm PICC line with its tip in the SVC Impression: Unchanged right lung nodule, likely a benign calcified granuloma Electronically signed by Lucas Ibanez 05-01-2025 6:[address] 05/01/25 19:54 Exam(s): CT HEAD Without Contrast EXAM: CT Head Without Intravenous Contrast CLINICAL HISTORY: Reason for exam: Encephalopathic. TECHNIQUE: Axial computed tomography images of the head/brain without intravenous contrast. CTDI is 51.41 mGy and DLP is 875.56 mGy-cm. Automated exposure control was utilized for the study. A dose lowering technique was utilized adhering to the principles of ALARA. COMPARISON: Prior head CT from December 13, 2024. FINDINGS: Brain: Unremarkable. No hemorrhage. No significant white matter disease. No edema. Ventricles: Moderate ventriculomegaly. Bones/joints: Unremarkable. No acute fracture. Soft tissues: Unremarkable. Sinuses: Unremarkable as visualized. No acute sinusitis. Mastoid air cells: Unremarkable as visualized. No mastoid effusion. IMPRESSION: No evidence of acute intracranial pathology. Electronically signed by: Trish Alves MD 05/01/25 23:16 PM Venous Doppler Study 05/01/25 20:08 Exam(s): US VENOUS RIGHT UPPER EXTREMITY EXAM: US Duplex Right Upper Extremity Veins CLINICAL HISTORY: Reason for exam: Edema, clot. OTHER: Other Notes: RUE swelling, PICC line in for antibiotics. No thrombus detected within RUE. PICC line noted in right subclavian, axillary, and prox basilic vein. Note slightly limited due to PICC line and sterile dressing over mid upper right arm (was able to visualize vessels over clear portion of dressing). TECHNIQUE: Real-time duplex ultrasound scan of the right upper extremity veins integrating B-mode two-dimensional vascular structure, Doppler spectral analysis, color flow Doppler imaging and compression. COMPARISON: No relevant prior studies available. FINDINGS: Deep veins: Unremarkable. No DVT in the internal jugular, subclavian, axillary, or brachial veins. The veins demonstrate normal color flow, are normally compressible, with normal phasic flow and/or augmentation response. Superficial veins: Unremarkable. No thrombus in the visualized basilic and cephalic veins. Soft tissues: No acute findings. Tubes, lines and devices: There is a PICC line terminating in the proximal basilic vein. IMPRESSION: 1. PICC line terminates in the proximal basilic vein. 2. No deep venous thrombosis in the right upper extremity. Electronically signed by: Austin Parekh MD 05/01/25 23:39 PM Medications Administered Home Medications Medication Instructions Recorded Confirmed Last Taken aspirin 81 mg tablet,delayed 81 mg PO QAM 08/07/22 05/01/25 05/01/25 release (Adult Low Dose Aspirin) rivaroxaban 20 mg tablet (Xarelto) 20 mg PO DAILY 11/19/23 05/01/25 05/01/25 sennosides 8.6 mg tablet 8.6 mg PO BID 12/15/23 05/01/25 05/01/25 08:00 mirtazapine 30 mg tablet 15 mg PO UD 01/21/24 05/01/25 01/31/25 nitroglycerin 0.4 mg sublingual 0.4 mg sublingual DIRECTED PRN 01/21/24 05/01/25 Unknown tablet chest pin tamsulosin 0.4 mg capsule 0.4 mg PO HS 07/22/24 05/01/25 04/30/25 folic acid 1 mg tablet 1 mg PO DAILY 08/12/24 05/01/25 05/01/25 omeprazole 20 mg capsule,delayed 20 mg PO DAILY 08/12/24 05/01/25 05/01/25 release thiamine HCl (vitamin B1) 100 mg 100 mg PO DAILY 08/12/24 05/01/25 05/01/25 tablet netarsudil 0.02 %-latanoprost 1 drp ophthalmic (eye) HS 11/14/24 05/01/25 04/30/25 0.005 % eye drops (Rocklatan) duloxetine 30 mg capsule,delayed 30 mg PO DAILY 11/25/24 05/01/25 05/01/25 release sprinkle amiodarone 200 mg tablet 200 mg PO QAM #90 tabs 12/02/24 05/01/25 05/01/25 levetiracetam 500 mg tablet 500 mg PO BID 90 days #180 tabs 01/03/25 05/01/25 05/01/25 08:00 (Keppra) budesonide 0.5 mg/2 mL suspension 0.5 mg NEB BIDR 01/16/25 05/01/25 Unknown for nebulization bumetanide 0.5 mg tablet 0.5 mg PO DAILY 01/16/25 05/01/25 05/01/25 cholecalciferol (vitamin D3) 10 20 mcg PO DAILY 01/16/25 05/01/25 05/01/25 mcg (400 unit) tablet (Vitamin D3) ferrous sulfate 325 mg (65 mg 325 mg PO .Q OTHER DAY 01/16/25 05/01/25 05/01/25 iron) tablet food supplemt, lactose-reduced 1 ea PO DAILY 01/16/25 05/01/25 05/01/25 (Ensure oral liquid) pravastatin 40 mg tablet 40 mg PO HS 01/16/25 05/01/25 04/30/25 sodium chloride 0.65 % nasal spray 1 spray intranasal DAILY PRN Dry 01/16/25 05/01/25 Unknown aerosol nose vitamin B complex 1 tab PO DAILY 01/16/25 05/01/25 05/01/25 vitamin E 268 mg (400 unit) capsule 2 cap PO DAILY 01/16/25 05/01/25 05/01/25 metoprolol succinate 25 mg 12.5 mg (1/2 x 25 mg) PO DAILY #15 01/19/25 05/01/25 05/01/25 tablet,extended release 24 hr tabs sulfamethoxazole 800 1 tab PO BID #60 tabs 01/19/25 05/01/25 02/01/25 08:00 mg-trimethoprim 160 mg tablet (Bactrim DS) nebulizers #1 ea 01/24/25 04/28/25 Unknown duloxetine 60 mg capsule,delayed 60 mg PO DAILY 02/01/25 05/01/25 05/01/25 release Lactobacillus acidophilus 1 tab PO DAILY 02/10/25 05/01/25 05/01/25 cyanocobalamin (vitamin B-12) 500 500 mcg PO DAILY 02/10/25 05/01/25 05/01/25 mcg lozenges (Vitamin B-12) omega-3 fatty acids 1,000 mg 1,000 mg PO QAM 02/10/25 05/01/25 05/01/25 capsule acetaminophen 325 mg tablet 325 mg PO TID PRN Pain 04/04/25 05/01/25 Unknown (Tylenol) bimatoprost 0.01 % eye drops 1 drp ophthalmic (eye) PM 04/04/25 05/01/25 04/30/25 buprenorphine 5 mcg/hour weekly 1 patch transdermal WK 04/04/25 05/01/25 Unknown transdermal patch carbamide peroxide 6.5 % ear drops 5 drp otic (ear) Q12H 04/04/25 05/01/25 05/01/25 08:00 diclofenac sodium 1 % topical gel 2 g topical BID PRN hand pain 04/04/25 Unknown formoterol fumarate 20 mcg/2 mL 20 mcg NEB BIDR 04/04/25 05/01/25 Unknown solution for nebulization (Perforomist) ipratropium 0.5 mg-albuterol 3 mg 3 ml NEB Q6R PRN shortness of 04/04/25 05/01/25 Unknown (2.5 mg base)/3 mL nebulization breath or wheezing soln lanolin alcohols-mineral 1 applic topical DAILY PRN Dry Skin 04/04/25 05/01/25 Unknown oil-w.petrolatum-ceresin topical cream (Eucerin topical cream) lidocaine 5 % topical patch 1 - 2 patch topical DAILY PRN Pain 04/04/25 05/01/25 Unknown menthol 0.44 %-zinc oxide 20.6 % 1 applic topical BID 04/04/25 05/01/25 05/01/25 08:00 topical ointment (Calmoseptine) multivitamin with minerals 1 cap PO DAILY 04/04/25 05/01/25 05/01/25 nutritional supplements 1 ea PO BID 04/04/25 05/01/25 05/01/25 oxycodone 5 mg tablet 5 mg PO TID PRN Pain 04/04/25 05/01/25 Unknown trazodone 50 mg tablet 0 mg PO UD 04/04/25 05/01/25 Unknown daptomycin 500 mg intravenous 750 mg IV DAILY 05/01/25 05/01/25 04/30/25 solution ertapenem 1 gram solution for 1 g IV DAILY 05/01/25 05/01/25 04/30/25 injection glucosamine sulfate 500 mg tablet 500 mg PO DAILY 05/01/25 05/01/25 05/01/25 melatonin 3 mg tablet 3 mg PO HS 05/01/25 05/01/25 04/30/25 gabapentin 600 mg tablet 600 mg PO BID #0 tabs 05/03/25 05/01/25 05/01/25 15:00
[2025-05-03 11:19] VITALS: BP 136/85; TEMP 98.1; O2SAT 93
--- NOTE | 2025-05-03 14:18 | Discharge Summary ---
Discharge Summary Date of Service May 03, 2025 Principal Dx & Hospital Course #1 = Principal Diagnosis (1) Lethargy: (2) Edema of right upper extremity: (3) Multiple open wounds of lower extremity: (4) Bilateral conjunctivitis: (5) Elevated troponin: Plan 79-year-old male PMHx HFrEF, PAD, A-flutter, peripheral neuropathy, RA, pressure ulcers of bilateral feet, CAD, cardiomyopathy, IPMN, depression, LEONARD, OHS, and PVD presenting for malfunctioning PICC line per home health nurse. Evaluation without clear infection, stable VBG and grossly unremarkable electrolytes with exception of calcium at 8.5. Lactate is normal. Troponin slightly elevated at 28, pending the repeat. Admission for PICC line management. #Lethargy Ongoing ~ 1 week, associated weakness as noted per son. Utilities CPAP at night, difficult to have mask around face d/t facial hair. No infectious symptoms per son or patient. No focal deficits, dysarthria, facial droop. Pt easily arousable and aware of location/year/self. AG WNL, ammonia WNL, TSH WNL. No gross electrolyte abnormalities otherwise. No new murmur ascultated. Has been receiving abx via PICC line as prescribed with exception of the day of arrival d/t PICC line malfunction. Unclear exact etiology of lethargy, pending remaining workup. - CBC without leukocytosis/leukopenia, H/H near baseline (9.3/29.1); VBGs WNL; lactate 1.4; ammonia 32; TSH 2.946; trop mildly elevated (28.0 -> 31.9) - CBC am, trend trop - UA negative for infection - CXR unchanged R lung nodule - CT head no acute findings - RUE Doppler w/o DVT - PAMELA 09/2024 EF 60-65% -Reached out to ID, will continue current antibiotics. Patient improved immediately, likely iatrogenic from his medications, will hold gabapentin moving forward. Also patient needed his PICC line replaced, now has a midline This appears to have resolved at time of discharged. #RUE edema/Malfunctioning PICC line (resolved) History of severe sepsis, maintained on ertapenem and daptomycin for total of 6 weeks duration, provided via PICC line. PICC line malfunction day of arrival for home health nurse, found to be kinked and now fixed/functioning as a ppropriate. RUE with edema, erythema, and warm to touch. Was concerned for VTE, however is on Xarelto (last dose 05/01). - CXR did reveal R arm PICC line w/ tip in SVC - Doppler RUE PICC line terminating proximal basilic vein, no DVT - obtained consent from patient, will switch PICC line to midline, completed prior to discharge. #Multiple open wounds LE/Polymicrobial immune complex infectious disease history Follows with wound care, most recent visit 04/14/2025. Has been on ertapenem + daptomycin for recurrent R knee PJI via PICC line since d/c from hospital (), to be continued through 05/15/2025. Prior admission to [facility] from 08/29/2024-09/14/24 for recurrent R knee MRSA PJI c/b MRSA bacteremia s/p I&D. - CBC stable, lactate WNL - Blood cx pending -- extensive bacterial history -- MRSA, Pseudomonas/ESBL Proteus/Enterobacter - Currently on dapto + ertapenem -- adjust to meropenem + linezolid at time of admission -- adjust as medically appropriate - Wound care -- Per wound visit note (04/14/2025) -- Dressed with Silvercel daily bilaterally - Consider ID consult -- +/- need to add rifampin at this time, previously a recommendation as a next step as necessary - Pt was to follow with [facility] ortho - consider ortho consult #Bilateral conjunctivitis Bilat. eye crusting, ~ 4 days total. - Polytrim drops - 1 drop q3h - Cont home eye drops - Contact precautions #Elevated troponin No CP, SOB, or palpitations - Trop 28.0, 31.9 on repeat - trend - EKG sinus rhythm with PVCs and nonspecific IVCB @ 75 bpm - Likely 2/2 demand #Anemia- H/o such, near baseline; H/H at admission 9.3/29.7; Vitamin B12, ferrous sulfate, folic acid - continue, trend H/H as appropriate #HFrEF- BNP 240; Received IV bumetanide in ED; Bumetanide - continue oral formulation #A-fib/history of A-flutter- Amiodarone, metoprolol, Xarelto - continue #RA- Glucosamine - continue #HLD- Pravastatin - OK to continue now that dapto d/c, restart 05/02 #Myoclonic jerking - Keppra - continue #Idiopathic neuropathy- Gabapentin - hold at time of admission #LEONARD- BiPAP HS -- continue #Psych- Duloxetine, mirtazapine, ? trazodone - Hold all while on linezolid #GERD- Omeprazole - continue #CAD- ASA - continue #BPH- Tamsulosin - continue #Pain- Buprenorphine patch, ? oxycodone; PDMP independently reviewed at time of admission, appears oxycodone last obtained 02/2025 - continue per normal schedule/dosing, held oxy night of admission ? impacting mentation resume home meds. Updated dose. Admission HPI Per Admitting Provider 79-year-old male PMHx HFrEF, PAD, A-flutter, peripheral neuropathy, RA, pressure ulcers of bilateral feet, CAD, cardiomyopathy, IPMN, depression, LEONARD, OHS, and PVD presenting for malfunctioning PICC line per home health nurse. Patient's most recent hospital admission 04/04/2025 until 04/08/2025 for sepsis and management of chronic conditions. The patient son, Jaiden, helps to provide the history. Reports that the patient was recently in the hospital for severe sepsis for a L foot infection, and discharged home on IV antibiotics for total duration of 6 weeks which he has been taking as scheduled. Approximately 1 week ago he was in the [facility] for an endoscopy when she received anesthesia. Following this, his son notes that the patient has been more weak and fatigued than before. The symptoms have gotten to the point where he has had a few stumbles/falls at [place], with the most recent being his inability to get himself up off of the ground after slowly lowering himself. Additionally, his son walked into his room "a few days ago" and the patient was trying to get out of his bed but was half in and half out, unable to move himself further due to weakness. His son notes that the patient has also had increased swelling in his BLE over the past week, but is unsure if the patient has been taking his diuretics as prescribed especially when he has appointments scheduled because it "makes him pee so often." Pt's son denies noticing or hearing the patient complain of additional infectious symptoms to include CP, SOB, dizziness, abdominal pain, N/V/D/C, or F/C. Pt wakes briefly for conversation, agrees that he is tired and feels weak but no specific extremity weakness, pain, SOB, CP, or additional concerns. ED evaluation reveals CBC without leukocytosis or leukopenia, H&H 9.3/29.7; VBG WNL; CMP BUN 25, ratio 22.9, glucose 113, calcium 8.5, AST 52, BUN 3.3; lactate 1.4; magnesium 1.7; troponin 28.0, pending repeat; TSH 2.946; UA negative for infection; CXR unchanged R lung nodule; EKG sinus rhythm with occasional PVCs and nonspecific intraventricular conduction block at 75 bpm.; Provided with bumetanide 1 philip IV in ED. Please see Dr. Weinstein's attestation for adjustments/additions to treatment plan. Discharge Exam Constitutional WD/WN, vitals as above Neck trachea midline, no thyromegaly Respiratory normal respiratory effort, lungs clear to auscultation Cardiovascular RRR, no murmur, no edema Psychiatric A+Ox3, euthymic affect Discharge Plan Discharge Items Patient Disposition: Home - Home Health Services Reason For Visit: LETHARGY, ? ACUTE HFrEF Discharge Diagnosis: midline Condition on Discharge: Fair Activity: Resume your previous activity Non-emergency contact: Primary Care Provider Call non-emergency contact if: you have any medication questions Follow-up/Referrals: Molly Rios, [employer] [Primary Care Provider] - (Please call your primary care provider to schedule a hospital follow-up appointment within 7-10 days) Diet: Heart Healthy Addtl Attending Provider Instructions: Continue current plan. Followup with pCP in 1-2 weeks. Cuting back on the gabapentin to twice a day due to lethargy. Antibiotics at 2 pm Pending Studies at Discharge: No Stand-Alone Forms: My Famil[employer], Smoking Cessation Medications and DC Order Prescriptions: Continued amiodarone 200 mg tablet 200 mg PO QAM Qty: 90 3RF (DME) nebulizers Misc See Rx Instructions .Route Qty: 1 0RF Rx Instructions: As directed [place] 0.02-0.005 % drops 1 drp ophthalmic (eye) HS levetiracetam [Keppra] 500 mg tablet 500 mg PO BID 90 Days Qty: 180 11RF Xarelto 20 mg tablet 20 mg PO DAILY Rx Instructions: start 3 days after last eliquis dose. aspirin [Adult Low Dose Aspirin] 81 mg tablet,delayed release (DR/EC) 81 mg PO QAM Hold Instructions: Resume on 02/23/23. until PCP/surgery followup Patient Comments: Unable to verify med at this date/time. Listed as remote-med on [facility] Pharm[facility] med list. 01/16/25 nitroglycerin 0.4 mg Tablet, Sublingual 0.4 mg sublingual DIRECTED PRN (Reason: chest pin) Rx Instructions: GIVE 1 TABLET SUBLINGUALLY NEEDED FOR CHEST PAIN. MAY REPEAT DOSE EVERY 5 MINUTES FOR A TOTAL OF 3 DOSES..IF NO RELIEF CALL 911 mirtazapine 30 mg tablet 15 mg PO UD Rx Instructions: take one tab po for 7 days, then half tab po for 3 days then stop and start trazodone tamsulosin 0.4 mg capsule 0.4 mg PO HS thiamine HCl (vitamin B1) 100 mg Tablet 100 mg PO DAILY omeprazole 20 mg Capsule,Delayed Release(Dr/Ec) 20 mg PO DAILY folic acid 1 mg Tablet 1 mg PO DAILY duloxetine 30 mg capsule, delayed rel sprinkle 30 mg PO DAILY Rx Instructions: TOTAL DOSE 90 MG--TAKES WITH 60 MG CAP. omega-3 fatty acids 1,000 mg capsule 1,000 mg PO QAM Patient Comments: 04/04- [facility] unable to verify pravastatin 40 mg Tablet 40 mg PO HS Hold Instructions: Resume on 02/11/25. bumetanide 0.5 mg tablet 0.5 mg PO DAILY MDD 1mg/24hr Hold Instructions: Resume on 02/06/25. Rx Instructions: May take additional tablet daily as needed vitamin B complex Tablet 1 tab PO DAILY cholecalciferol (vitamin D3) [Vitamin D3] 10 mcg (400 unit) Tablet 20 mcg PO DAILY vitamin E 268 mg (400 unit) Capsule 2 cap PO DAILY Ensure Liquid 1 ea PO DAILY sodium chloride 0.65 % Aerosol,[place] 1 spray INTRANASAL DAILY PRN (Reason: Dry nose) ferrous sulfate 325 mg (65 mg iron) tablet 325 mg PO .Q OTHER DAY Patient Comments: Original Directions: 325mg by mouth daily. Listed as on hold per [facility] Pharm[facility]. No restart date listed. 01/16/25. budesonide 0.5 mg/2 mL suspension for nebulization 0.5 mg NEB BIDR Patient Comments: 04/04- not on list from [facility] unable to verify Rx Instructions: PER PT'S DAUGHTER "HAVE NOT RECIEVED NEBULIZER YET" metoprolol succinate 25 mg Tablet Extended Release 24 Hr 12.5 mg PO DAILY Qty: 15 0RF cyanocobalamin (vitamin B-12) [Vitamin B-12] 500 mcg lozenge 500 mcg PO DAILY Lactobacillus acidophilus Tablet,Chewable 1 tab PO DAILY acetaminophen [Tylenol] 325 mg Tablet 325 mg PO TID PRN (Reason: Pain) carbamide peroxide 6.5 % Drops 5 drp OTIC (EAR) Q12H menthol-zinc oxide [Calmoseptine] 0.44-20.6 % Ointment 1 applic TOPICAL BID bimatoprost 0.01 % Drops 1 drp OPHTHALMIC (EYE) PM buprenorphine 5 mcg/hour Patch Weekly 1 patch TRANSDERMAL WK diclofenac sodium 1 % Gel 2 g TOPICAL BID PRN (Reason: hand pain) trazodone 50 mg Tablet 0 mg PO UD Rx Instructions: half tab po hs for 7 days, then take 1 tab po hs. Start this once mirtazapine has been weaned off lidocaine 5 % Adhesive Patch,Medicated 1 - 2 patch TOPICAL DAILY PRN (Reason: Pain) Rx Instructions: leave on most painful area for up to 12 hrs multivitamin with minerals Capsule 1 cap PO DAILY Eucerin Cream 1 applic TOPICAL DAILY PRN (Reason: Dry Skin) nutritional supplements Powder 1 ea PO BID oxycodone 5 mg Tablet 5 mg PO TID PRN (Reason: Pain) ipratropium-albuterol 0.5 mg-3 mg(2.5 mg base)/3 mL solution for nebulization 3 ml NEB Q6R PRN (Reason: shortness of breath or wheezing) Patient Comments: 04/04- not on list from [facility] unable to verify formoterol fumarate [Perforomist] 20 mcg/2 mL solution for nebulization 20 mcg NEB BIDR Patient Comments: 04/04- not on list from [facility] unable to verify Rx Instructions: PER PT'S DAUGHTER "HAVE NOT RECIEVED NEBULIZER YET" sennosides 8.6 mg Tablet 8.6 mg PO BID Patient Comments: Unable to verify med at this date/time. Listed as remote-med on [facility] Pharm[facility] med list. 01/16/25 duloxetine 60 mg Capsule,Delayed Release(Dr/Ec) 60 mg PO DAILY Rx Instructions: TOTAL DOSE 90 MG--TAKES WITH 30 MG CAP. glucosamine sulfate 500 mg Tablet 500 mg PO DAILY Rx Instructions: administer with a meal melatonin 3 mg Tablet 3 mg PO HS ertapenem 1 gram Recon Soln 1 g IV DAILY Rx Instructions: PICC LINE NEEDS REPLACED. daptomycin 500 mg Recon Soln 750 mg IV DAILY Rx Instructions: 750 MG/15 ML IV PUSH administer over 30 mins Changed gabapentin 600 mg Tablet 600 mg PO BID Qty: 0 0RF Held sulfamethoxazole-trimethoprim [Bactrim DS] 800-160 mg tablet 1 tab PO BID Qty: 60 0RF Hold Instructions: Resume on 02/11/25. Patient Comments: Listed as active @ [facility] Dr. Lozano filled 01/09/25 x90 day supply Rx Instructions: ON HOLD UNTIL 05/15/25 Discharge Orders: Discharge Order (Routine); Ordered 05/03/25 Ordered By: Sadiq Membreno Admission Data Admit Date/Time: 05/01/25 19:53 Attending Provider: Sadiq Membreno Admit Provider: Himanshu Weinstein Primary Care Provider: Molly Rios Other Providers: [employer],[facility]; Gavi Rich; [facility]; [place],Fax Other Interventions: Discharge Summary Assessment (RN) Last Done: 05/03/25 14:35 Hospital Stay Data Consultations 05/01/25 19:00 ED Decision to Admit Stat 05/01/25 19:21 ED Decision to Admit Stat 05/02/25 08:38 Consult Infectious Diseases Routine Diagnostic Imagining Performed 05/01/25 19:54 CT head/brain wo con Urgent 05/01/25 20:08 US venous doppler UE RT Stat Pending Results Patient Have Any Pending Studies at Discharge: No Discharge Instructions Given to Patient (Per Discharging Provider) Continue current plan. Followup with pCP in 1-2 weeks. Cuting back on the gabapentin to twice a day due to lethargy. Antibiotics at 2 pm Total Time Total Time Spent Total Time Spent (In Minutes): 35 spent over 30 minutes formulating discharge plan, discussing with specialists, updating patient and family. Coding Level of Care Code 01243 INP/OBS DISCH >30 MIN Diagnoses Lethargy R53.83 Edema of right upper extremity R60.0 Multiple opens wound of lower extremity, unspecified laterality, subsequent encounter S81.809D Encounter type: subsequent encounter Laterality: unspecified laterality Bilateral conjunctivitis H10.9 Elevated troponin R79.89
[2025-05-03 15:17] VITALS: PULSE 69
--- NOTE | 2025-05-05 08:24 | Coding Query ---
CONGESTIVE HEART FAILURE To Promote full compliance with coding requirements relating to patient care, physician participation is requested in all cases of service line layer uncertainty. Please assist us with the following questions. A diagnosis of HFrEF is documented in the patient's medical record with documentation of "Received IV bumetanide in ED" documented through the record and on the Discharge Summary. To accurately code this diagnosis and to compare patient severity, we ask that you specify the type of heart failure by placing an X within the parenthesis (x). HFrEF or SYSTOLIC HEART FAILURE ( ) Acute ( ) Chronic (x ) Acute on Chronic ( ) Rheumatic ( ) Unknown Thank you Mehnaz BUENO
[2025-05-05] MEDS ORDERED: REMOVE & WASTE BUTRANS PATCH 1 EA EA SCH (08:59)
[2025-05-05] MEDS ORDERED: BUPRENORPHINE 5 MCG/HR TDSY TD SCH (09:00)
== END 2025-05-03 15:15 | disposition home health service (06) | DRG 314 ==
LOC: ED 15:57 → SUATTDRO 19:53 → 2W 19:53